=== PATIENT | female | born 1975 | race Caucasian/White ===

== ENCOUNTER 2022-01-30 00:35 | Emergency (ER) | payer OTHER ==
--- OUTSIDE RECORDS SUMMARY | 2022-01-30 01:45 | XMS REPORT | Continuity of Care Document ---
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 00 times Center daily as needed. baclofen 2022-0 Yes 10mg Take [address] [facility] (LIORESAL) 8-06 by mouth 2 Sh[facility]ir es 10 MG 00:00: (two) Medical tablet 00 times Center daily as needed. Latuda 60 2022-0 Yes 1{tbl} QD Take [address] [facility] mg Tab 6-20 tablet by [facility] 00:[facility]: mouth Medical 00 daily. Center Latuda 60 2022-0 Yes 1{tbl} QD Take [address] [facility] mg Tab 6-20 tablet by [facility] 00:[facility]: mouth Medical 00 daily. Center Latuda 60 2022-0 Yes 1{tbl} QD Take [address] [facility] mg Tab 6-20 tablet by [facility] 00:[facility]: mouth Medical 00 daily. Center lisinopriL 2022-0 Yes 20mg Q.5D Take [address] (PRINIVIL,Z 6-06 by mouth 2 Brie kes ESTRIL) 20 00:00: (two) Medica l MG tablet 00 times Center daily. lisinopriL 2022-0 Yes 20mg Q.5D Take [address] (PRINIVIL,Z 6-06 by mouth 2 [facility] kes ESTRIL) 20 00:00: (two) Medica l MG tablet 00 times Center daily. lisinopriL 2022-0 Yes 20mg Q.5D Take [address] (PRINIVIL,Z 6-06 by mouth 2 Brie kes ESTRIL) 20 00:00: (two) Medica l MG tablet 00 times Center daily. acetaminoph 2022-0 Yes 1{tbl} Take [address] en-codeine 6- tablet by Dennis castro (TYLENOL 16:19: mouth Medical #4) 300-60 46 every 4 Center mg per (four) tablet hours as needed for Pain. paliperidon 2021- No Take by [facility] (INVEGA 10-17 [facility] ORAL) 16:17: 00:00 Medical 33 :00 [place] bupropion 2021- No Take by [facility] HCl 10-17 [facility] (WELLBUTRIN 16:17: 00:00 Medic al SR ORAL) 33 :00 [place] divalproex 2021- No Take by [facility] sodium 10-17 [facility] (DEPAKOTE 16:17: 00:00 Medical ORAL) 33 :00 [place] paliperidon 0 2021- No Take by [facility] (INVEGA 10-17 [facility] ORAL) 16:17: 00:00 Medical 33 :00 [place] bupropion 0 2021- No Take by [facility] HCl 10-17 [facility] (WELLBUTRIN 16:17: 00:00 Medic al SR ORAL) 33 :00 [place] divalproex 0 2021- No Take by [facility] sodium 10-17 [facility]. [facility] (DEPAKOTE 16:17: 00:00 Medical ORAL) 33 :00 [place] paliperidon 0 2021- No Take by [facility] (INVEGA 10-17 [facility] ORAL) 16:17: 00:00 Medical 33 :00 Center bupropion 2021-0 2021- No Take by [facility] HCl 10-17 [facility] (WELLBUTRIN 16:17: 00:00 Medic al SR ORAL) 33 :00 [place] divalproex 0 2021- No Take by [facility] sodium 10-17 [facility] (DEPAKOTE 16:17: 00:00 Medical ORAL) 33 :00 [place] paliperidon 2021-0 2021- No Take by [facility] (INVEGA 10-17 [facility]AL) 16:17: 00:00 Medical 33 :00 [place] bupropion 2021-0 2021- No Take by [facility] HCl 10-17 [facility] (WELLBUTRIN 16:17: 00:00 Medic al SR ORAL) 33 :00 [place] divalproex 2021-0 2021- No Take by [facility] sodium 10-17 [facility]. [facility] (DEPAKOTE 16:17: 00:00 Medical ORAL) 33 :00 [place] buPROPion 2021-[address] [facility] (WELLBUTRIN 10-17 [facility] XL) 300 MG 00:00: Medical 24 hr 00 [place] tablet buPROPion 2021-[address] [facility] (WELLBUTRIN 10-17 [facility] XL) 300 MG 00:00: Medical 24 hr 00 [place] tablet buPROPion 2021-[address] [facility] (WELLBUTRIN 10-17 [facility] XL) 300 MG 00:00: Medical 24 hr 00 [place] tablet buPROPion 2021-[address] [facility] (WELLBUTRIN 10-17 [facility] XL) 300 MG 00:00: Medical 24 hr 00 [place] tablet baclofen 2021-0 2022- No [facility] (LIORESAL) 10-17 [facility] 10 MG 00:00: 00:00 Medical tablet 00 :00 [place] baclofen 2-0 2022- No [facility] (LIORESAL) 10-17 [facility] 10 MG 00:00: 00:00 Medical tablet 00 :00 [place] baclofen 2-0 2022- No [facility] (LIORESAL) 10-17 [facility] 10 MG 00:00: 00:00 Medical tablet 00 :00 [place] baclofen 2-0 2022- No [facility] (LIORESAL) 10-17 [facility] 10 MG 00:00: 00:00 Medical tablet 00 :00 [place] ondansetron 2021-[address] [facility] (ZOFRAN-ODT 5-26 [facility] ) 4 MG 00:00: Medical disintegrat 00 Center ing tablet ondansetron 2021-[address] [facility] (ZOFRAN-ODT 5-26 [facility] ) 4 MG 00:00: Medical disintegrat 00 Center ing tablet ondansetron 2021-[address] [facility] (ZOFRAN-ODT 5-26 [facility] ) 4 MG 00:00: Medical disintegrat 00 Center ing tablet ondansetron Yes [facility] (ZOFRAN-ODT 5-26 [facility] ) 4 MG 00:00: Medical disintegrat 00 Center ing tablet paliperidon Yes 6mg QD Take [address] [facility] (INVEGA) 5-18 by mouth [facility] 6 MG 24 hr 00:00: daily. Medic al tablet 00 Center paliperidon Yes 6mg QD Take [address] e (INVEGA) 5-18 by mouth [facility] 6 MG 24 hr 00:00: daily. Medic al tablet 00 Center paliperidon Yes 6mg QD Take [address] e (INVEGA) 5-18 by mouth [facility] 6 MG 24 hr 00:00: daily. Medic al tablet 00 Center paliperidon Yes 6mg QD Take [address] [facility] (INVEGA) 5-18 by mouth [facility] 6 MG 24 hr 00:00: daily. Medic al tablet 00 Center clonazePAM 2021- No TAKE [address] (KlonoPIN) 10-03 2 TABS [facility] 0.5 MG 00:00: 00:00 DAILY BY Medica l tablet 00 :00 MOUTH Center NEEDED FOR SEVERE ANXIETY clonazePAM 2021- No TAKE [address] (KlonoPIN) 10-03 2 TABS [facility] 0.5 MG 00:00: 00:00 DAILY BY Medica l tablet 00 :00 MOUTH Center NEEDED FOR SEVERE ANXIETY clonazePAM 2021- No TAKE [address] (KlonoPIN) 10-03 2 TABS [facility] 0.5 MG 00:00: 00:00 DAILY BY Medica l tablet 00 :00 MOUTH Center NEEDED FOR SEVERE ANXIETY clonazePAM 2021- No TAKE [address] (KlonoPIN) 10-03 2 TABS [facility] 0.5 MG 00:00: 00:00 DAILY BY Medica l tablet 00 :00 MOUTH Center NEEDED FOR SEVERE ANXIETY divalproex Yes TAKE 1 [facility] (DEPAKOTE[facility] 5-14 TABLET BY [facility] 500 MG 24 00:00: MOUTH Medical hr tablet 00 EVERYDAY Center AT BEDTIME divalproex Yes TAKE 1 [facility] (DEPAKOTE) 5-14 TABLET BY [facility] 500 MG 24 00:00: MOUTH Medical hr tablet 00 EVERYDAY Center AT BEDTIME divalproex 0 Yes TAKE 1 [facility] (DEPAKOTE) 5-14 TABLET BY [facility] 500 MG 24 00:00: MOUTH Medical hr tablet 00 EVERYDAY Center AT BEDTIME divalproex Yes TAKE 1 [facility] (DEPAKOTE) 5-14 TABLET BY [facility] 500 MG 24 00:00: MOUTH Medical hr tablet 00 EVERYDAY Center AT BEDTIME mupirocin Yes [facility] (BACTROBAN) 5-05 [facility] 2 % 00:00: Medical ointment 00 Center pregabalin 0 Yes 50mg Q.5D Take [address] [facility] (LYRICA) 50 5-05 by mouth 2 [facility] k[facility] MG capsule 00:00: (two) Medica l 00 times Center daily. mupirocin [address] [facility] (BACTROBAN) 5-05 [facility] 2 % 00:00: Medical ointment 00 Center pregabalin 0 Yes 50mg Q.5D Take [address] (LYRICA) 50 5-05 by mouth 2 Brie kes MG capsule 00:00: (two) Medica l 00 times Center daily. mupirocin [address] [facility] (BACTROBAN) 5-05 [facility] 2 % 00:00: Medical ointment 00 Center pregabalin 0 Yes 50mg Q.5D Take [address] (LYRICA) 50 5-05 by mouth 2 Brie kes MG capsule 00:00: (two) Medica l 00 times Center daily. mupirocin [address] [facility] (BACTROBAN) 5-05 [facility] 2 % 00:00: Medical ointment 00 Center pregabalin 0 Yes 50mg Q.5D Take [address] (LYRICA) 50 5-05 by mouth 2 Brie kes MG capsule 00:00: (two) Medica l 00 times Center daily. acetaminoph 2021- No 1{tbl} Take [address] en-codeine 5-05 06-01 tablet by [facility] (TYLENOL 00:00: 00:00 mouth 3 Medic al #4) 300-60 00 :00 (three) Center mg per times tablet daily as needed. acetaminoph 2021- No 1{tbl} Take [address] en-codeine 5-05 06-01 tablet by [facility] (TYLENOL 00:00: 00:00 mouth 3 Medic al #4) 300-60 00 :00 (three) Center mg per times tablet daily as needed. acetaminoph 2021- No 1{tbl} Take [address] en-codeine 5-05 06-01 tablet by [facility] (TYLENOL 00:00: 00:00 mouth 3 Medic al #4) 300-60 00 :00 (three) Center mg per times tablet daily as needed. acetaminoph 2021- No 1{tbl} Take [address] en-codeine 5-05 06-01 tablet by [facility] (TYLENOL 00:00: 00:00 mouth 3 Medic al #4) 300-60 00 :00 (three) Center mg per times tablet daily as needed. LISINOPRIL Yes Take by [facility] 4-29 [facility]. [facility] 13:24: [address] omeprazole Yes 20mg QD Take [address] (PriLOSEC) 09-14 by mouth [facility] 20 MG 13:24: daily. Medical [address] GABAPENTIN Yes Take by [facility] -29 [facility]. [facility] 13:24: [address] sulfamethox 2021- No 160mg{t Q.5D Take [address] [facility] [address] azole-trime 09-14-06 rimetho tablet [facility] k[facility] thoprim 00:00: 23:59 prim} (160 mg of Me dical (BACTRIM 00 :00 trimethopr Cente r DS) 800-160 im total) mg per by mouth 2 tablet (two) times daily for 7 days smx-tmp DS (BACTRIM) 800-160 mg tabs (1tab q12 D10). promethazin 2021- No 25mg Take [address] [facility] e 09-14-06 tablet (25 [facility] (PHENERGAN) 00:00: 23:59 mg total) Medical 25 MG 00 :00 by mouth Center tablet every 6 (six) hours as needed for Nausea for up to 7 days. sulfamethox 2021- No 160mg{t Q.5D Take [address] [facility] azole-trime 09-14-06 rimetho tablet [facility] thoprim 00:00: 23:59 prim} (160 mg of Me dical (BACTRIM 00 :00 trimethopr Cente r DS) 800-160 im total) mg per by mouth 2 tablet (two) times daily for 7 days smx-tmp DS (BACTRIM) 800-160 mg tabs (1tab q12 D10). promethazin 2021- No 25mg Take [address] [facility] e 09-14-06 tablet (25 [facility] (PHENERGAN) 00:00: 23:59 mg total) Medical 25 MG 00 :00 by mouth Center tablet every 6 (six) hours as needed for Nausea for up to 7 days. sulfamethox 2021- No 160mg{t Q.5D Take [address] [facility] azole-trime 09-14 05-06 rimetho tablet [facility] thoprim 00:00: 23:59 prim} (160 mg of Me dical (BACTRIM 00 :00 trimethopr Cente r DS) 800-160 im total) mg per by mouth 2 tablet (two) times daily for 7 days smx-tmp DS (BACTRIM) 800-160 mg tabs (1tab q12 D10). promethazin 2021- No 25mg Take [address] [facility] e 09-14 05-06 tablet (25 [facility] (PHENERGAN) 00:00: 23:59 mg total) Medical 25 MG 00 :00 by mouth Center tablet every 6 (six) hours as needed for Nausea for up to 7 days. sulfamethox 2021- No 160mg{t Q.5D Take [address] [facility] azole-trime 09-14 05-06 rimetho tablet [facility] thoprim 00:00: 23:59 prim} (160 mg of Me dical (BACTRIM 00 :00 trimethopr Cente r DS) 800-160 im total) mg per by mouth 2 tablet (two) times daily for 7 days smx-tmp DS (BACTRIM) 800-160 mg tabs (1tab q12 D10). promethazin 2021- No 25mg Take [address] [facility] e 4- 05-06 tablet (25 [facility] (PHENERGAN) 00:00: 23:59 mg total) Medical 25 MG 00 :00 by mouth Center tablet every 6 (six) hours as needed for Nausea for up to 7 days. pantoprazol 0 Yes 40mg [address] [facility] 4-24 [facility] (PROTONIX) 00:00: Medical 40 MG 00 Center tablet pantoprazol 2021-0 Yes 40mg [address] [facility] 4-24 [facility] (PROTONIX) 00:00: Medical 40 MG 00 Center tablet pantoprazol 2021-0 Yes 40mg [address] [facility] 4-24 [facility] (PROTONIX) 00:00: Medical 40 MG 00 Center tablet acetaminoph 2021- No TAKR [address] [facility] en-codeine 07-26 TABLET [facility] (TYLENOL 00:00: 00:00 NEEDED Medica l #3) 300-30 00 :00 ORALLY Center mg per THREE tablet TIMES A DAY FOR 30 DAYS acetaminoph 2021- No TAKR [address] [facility] en-codeine 07-26 TABLET [facility] (TYLENOL 00:00: 00:00 NEEDED Medica l #3) 300-30 00 :00 ORALLY Center mg per THREE tablet TIMES A DAY FOR 30 DAYS acetaminoph 2021- No TAKR [address] [facility] en-codeine 07-26 TABLET [facility] (TYLENOL 00:00: 00:00 NEEDED Medica l #3) 300-30 00 :00 ORALLY Center mg per THREE tablet TIMES A DAY FOR 30 DAYS acetaminoph 2021- No TAKR [address] [facility] en-codeine 07-26 TABLET [facility] (TYLENOL 00:00: 00:00 NEEDED Medica l #3) 300-30 00 :00 ORALLY Center mg per THREE tablet TIMES A DAY FOR 30 DAYS nitrofurant 2021- No 100mg Q.5D Take 1 Me анна menon, 3-05 03-[address] macrocrysta 00:00: 05:59 (100 mg Ho spita l-monohydra 00 :00 total) by l te, mouth 2 (MACROBID) (two) 100 MG times a capsule day for 7 days. nitrofurant 2021-0 2022- No 100mg Q.5D Take 1 Me thodi oin, 07-[address] macrocrysta 00:00: 05:59 (100 mg Ho spita l-monohydra 00 :00 total) by l te, mouth 2 (MACROBID) (two) 100 MG times a capsule day for 7 days. nitrofurant 2021-0 2021- No 100mg Q.5D Take 1 Me thodi oin, 07-[address] macrocrysta 00:00: 05:59 (100 mg Ho spita l-monohydra 00 :00 total) by l te, mouth 2 (MACROBID) (two) 100 MG times a capsule day for 7 days. nitrofurant 2021-0 2021- No 100mg Q.5D Take 1 [facility] th[facility] oin, 07-[address] macrocrysta 00:00: 05:59 (100 mg Ho spita l-monohydra 00 :00 total) by l te, mouth 2 (MACROBID) (two) 100 MG times a capsule day for 7 days. nitrofurant 0 2- No 100mg Q.5D Take 1 Me thodi oin, 07-[address] macrocrysta 00:00: 05:59 (100 mg Ho spita l-monohydra 00 :00 total) by l te, mouth 2 (MACROBID) (two) 100 MG times a capsule day for 7 days. dicyclomine 2022-0 Yes 20mg Q.5D Take 1 [facility] (BENTYL) 20 2-27 tablet (20 st mg tablet 00:00: mg total) [facility] 00 by mouth 2 l (two) times a day as needed (pain). dicyclomine 2022-0 Yes 20mg Q.5D Take 1 [facility] (BENTYL) 20 2-27 tablet (20 st mg tablet 00:00: mg total) [facility] 00 by mouth 2 l (two) times a day as needed (pain). dicyclomine 2022-0 Yes 20mg Q.5D Take 1 [facility] (BENTYL) 20 2-27 tablet (20 st mg tablet 00:00: mg total) [facility] 00 by mouth 2 l (two) times a day as needed (pain). dicyclomine 2022-0 Yes 20mg Q.5D Take 1 [facility] (BENTYL) 20 2-27 tablet (20 st mg tablet 00:00: mg total) [facility] 00 by mouth 2 l (two) times a day as needed (pain). dicyclomine 2022-0 Yes 20mg Q.5D Take 1 [facility] (BENTYL) 20 2-27 tablet (20 st mg tablet 00:00: mg total) [facility] 00 by mouth 2 l (two) times a day as needed (pain). ondansetron 2022-0 2022- No 4mg Q8H Take 1 [facility] ODT 2-27 03-30 tablet (4 st (ZOFRAN-ODT 00:00: 04:59 mg total) Hospita ) 4 MG 00 :00 by mouth l disintegrat every 8 ing tablet (eight) hours as needed for nausea or vomiting for up to 30 days. ondansetron 2022-0 2022- No 4mg Q8H Take 1 [facility] ODT 2-27 03-30 tablet (4 st (ZOFRAN-ODT 00:00: 04:59 mg total) Hospita ) 4 MG 00 :00 by mouth l disintegrat every 8 ing tablet (eight) hours as needed for nausea or vomiting for up to 30 days. ondansetron 2022-0 2022- No 4mg Q8H Take 1 [facility]odi ODT 2-27 03-30 tablet (4 st (ZOFRAN-ODT 00:00: 04:59 mg total) Hospita ) 4 MG 00 :00 by mouth l disintegrat every 8 ing tablet (eight) hours as needed for nausea or vomiting for up to 30 days. ondansetron 2022-0 2022- No 4mg Q8H Take 1 [facility] ODT 2-27 03-30 tablet (4 st (ZOFRAN-ODT 00:00: 04:59 mg total) Hospita ) 4 MG 00 :00 by mouth l disintegrat every 8 ing tablet (eight) hours as needed for nausea or vomiting for up to 30 days. ondansetron 2-0 2- No 4mg Q8H Take 1 Met hodi ODT 227 03-30 tablet (4 st (ZOFRAN-ODT 00:00: 04:59 mg total) Hospita ) 4 MG 00 :00 by mouth l disintegrat every 8 ing tablet (eight) hours as needed for nausea or vomiting for up to 30 days. QUEtiapine 2022-0 Yes [facility] (SEROquel) 2-23 st 100 MG 00:00: Hospita tablet 00 l clonAZEPAM 2022-0 Yes TAKE 1 TO [facility] (KlonoPIN) 2-[address] 0.5 MG 00:00: DAILY BY [facility]ospita tablet 00 MOUTH l NEEDED QUEtiapine 2022-0 Yes [facility] (SEROquel) 2-23 st 100 MG 00:00: Hospita tablet 00 l clonAZEPAM 2022-0 Yes TAKE 1 TO [facility] (KlonoPIN) 2-[address] 0.5 MG 00:00: DAILY BY [facility]osp[facility] tablet 00 MOUTH l NEEDED QUEtiapine 2022-0 Yes [facility] (SEROquel) 2-23 st 100 MG 00:00: Hospita tablet 00 l clonAZEPAM 2022-0 Yes TAKE 1 TO [facility] (KlonoPIN) 2-[address] 0.5 MG 00:00: DAILY BY [facility]ospita tablet 00 MOUTH l NEEDED QUEtiapine 2022-0 Yes [facility] (SEROquel) 2-23 st 100 MG 00:00: Hospita tablet 00 l clonAZEPAM 2022-0 Yes TAKE 1 TO [facility] (KlonoPIN) 2-[address] 0.5 MG 00:00: DAILY BY Hospita tablet 00 MOUTH l NEEDED QUEtiapine 2022-0 Yes [facility] (SEROquel) 2-23 st 100 MG 00:00: Hospita tablet 00 l clonAZEPAM 2022-0 Yes TAKE 1 TO [facility] (KlonoPIN) 2-[address] 0.5 MG 00:00: DAILY BY Hospita tablet 00 MOUTH l NEEDED Diphenhydra 2-0 Yes Notes: Gene sandy mine 2-07 (Same as: l 06:11: Josel) Diphenhydra Yes Notes: Gene sandy mine 2-07 (Same as: l 06:11: Benadryl) Dicyclomine Yes Notes: [facility] 2-07 (Same as: l 06:00: Bentyl) Dicyclomine Yes Notes: [facility] 2-07 (Same as: l 06:00: Bentyl) Lovenox Yes Notes: [facility] 2-07 (Same as: l 05:00: Lovenox) Lovenox Yes Notes: [facility] 2-07 (Same as: l 05:00: Lovenox) Bisacodyl No Notes: [facility] a 2-07 (Same As: l 03:52: Dulcolax, [place] 00 Bisco-Lax) POLYETHYLEN Yes Notes: Gene sandy E GLYCOL 2-07 Dissolve l 3350 03:52: in 8 oz of [place] water or juice. (Same as: Miralax) Bisacodyl No Notes: [facility] a 2-07 (Same As: l 03:52: Dulcolax, [place] 00 Bisco-Lax) POLYETHYLEN Yes Notes: [facility] E GLYCOL 2-07 Dissolve l 3350 03:52: in 8 oz of [place] 00 water or juice. (Same as: Miralax) Clonazepam Yes Notes: [facility] ia 2-07 (Same As: l 03:00: KlonoPIN) [facility] 3:Reproduc tive risk Hazardous Drug -- Refer to safe handling procedure PPE Matrix Clonazepam Yes Notes: [facility] 2-07 (Same As: l 03:00: KlonoPIN) [facility] 3:Reproduc tive risk Hazardous Drug -- Refer to safe handling procedure PPE Matrix Tramadol Yes Notes: Not Mem oria 2-07 to exceed l 02:57: 400mg/day. [place] 00 (Same As: Ultram) Acetaminoph Yes Notes: Gene sandy en 325 MG / 2-07 (Same as: l Hydrocodone 02:57: [place] Shreya nn Bitartrate 00 325/5) Do 5 MG Oral not exceed Tablet 4gm/day of [[place] acetaminop 5/325] hen. Tramadol Yes Notes: Not Mem oria 07 to exceed l 02:57: 400mg/day. (Same As: Ultram) Acetaminoph Yes Notes: Gene sandy en 325 MG / 06-25 (Same as: l Hydrocodone 02:57: [place] Shreya nn Bitartrate 00 325/5) Do 5 MG Oral not exceed Tablet 4gm/day of [[place] acetaminop 5/325] hen. Wellbutrin 0 Yes PO, Daily, M emoria -07 0 l 02:49: Refill(s) Depakote 0 Yes 300 mg, [facility] a 2-07 PO, Daily, l 02:49: 0 Refill(s) Clonazepam 0 Yes 1 mg, PO, Me moria 2-07 BID, 0 l 02:49: Refill(s) Wellbutrin 0 Yes PO, Daily, M emoria 07 0 l 02:49: Refill(s) Depakote 0 Yes 300 mg, [facility] a 2-07 PO, Daily, l 02:49: 0 Refill(s) Clonazepam 0 Yes 1 mg, PO, Me moria 2-07 BID, 0 l 02:49: Refill(s) Invega 2021-0 Yes PO, QAM, 0 [facility] 2-07 Refill(s) l 02:48: Invega 2021-0 Yes PO, QAM, 0 [facility] 2-07 Refill(s) l 02:48: Lisinopril 0 Yes 20 mg, PO, M emoria 2-07 BID, 0 l 02:47: Refill(s) Lisinopril 0 Yes 20 mg, PO, M emoria 2-07 BID, 0 l 02:47: Refill(s) Lactated 2022-0 Yes 1,000 mL, Gene sandy Ringers IV 2- Rate: 125 l 1,000 mL 01:54: ml/hr, [place]ron 00 Infuse over: 8 hr, Route: IV, Dosing Weight 127 kg, Total Volume: 1,000, Priority: STAT, Start date: 06/24/21 19:54:00 SOLE RUFFER, Duration: 2 doses or times, Stop date: 06/25/21 11:53:00 SOLE RUFFER, BSA: 2.43 m2, 0 Lactated 2-0 Yes 1,000 mL, Gene sandy Ringers IV 2- Rate: 125 l 1,000 mL 01:54: ml/hr, [place] 00 Infuse over: 8 hr, Route: IV, Dosing Weight 127 kg, Total Volume: 1,000, Priority: STAT, Start date: 06/24/21 19:54:00 SOLE RUFFER, Duration: 2 doses or times, Stop date: 06/25/21 11:53:00 SOLE RUFFER, BSA: 2.43 m2, 0 Dextrose 2-0 Yes 125 mL, [facility] a 10% in 06-25 Rate: 999 l Water IV 01:47: ml/hr, [place] 00 Infuse over: 0.1 hr, Route: IV, Total Volume: 125, Start date: 06/24/21 19:47:00 SOLE RUFFER, Duration: 30 day, Stop date: 07/24/21 19:46:00 SOLE RUFFER, PRN Blood Glucose Results, 0 Dextrose 2-0 Yes 125 mL, [facility] a 10% in - Rate: 999 l Water IV 01:47: ml/hr, Myron 00 Infuse over: 0.1 hr, Route: IV, Total Volume: 125, Start date: 06/24/21 19:47:00 SOLE RUFFER, Duration: 30 day, Stop date: 07/24/21 19:46:00 SOLE RUFFER, PRN Blood Glucose Results, 0 Dextrose 2-0 Yes 250 mL, [facility] a 10% in - Rate: 999 l Water IV 01:46: ml/hr, [place] 00 Infuse over: 0.3 hr, Route: IV, Total Volume: 250, Start date: 06/24/21 19:46:00 SOLE RUFFER, Duration: 30 day, Stop date: 07/24/21 19:45:00 SOLE RUFFER, PRN Blood Glucose Results, 0 Dextrose 2021-0 Yes 250 mL, [facility] a 10% in 06-25 Rate: 999 l Water IV 01:46: ml/hr, Infuse over: 0.3 hr, Route: IV, Total Volume: 250, Start date: 06/24/21 19:46:00 SOLE RUFFER, Duration: 30 day, Stop date: 07/24/21 19:45:00 SOLE RUFFER, PRN Blood Glucose Results, 0 Dextrose 2021-0 No 25 mL, [facility] 50% Syringe - Route: l (D50W) 01:43: IVP, Dosing Weight 127, kg, PRN, PRN Blood Glucose Results, Start date: 06/24/21 19:43:00 SOLE RUFFER, Duration: 30 day, Stop date: 07/24/21 19:42:00 SOLE RUFFER Glucagon 2021-0 Yes 1 mg, [facility] 2-07 Route: IM, l 01:43: Drug form: PDR/INJ, PRN, Dosing Weight 127, kg, PRN Blood Glucose Results, Start date: 06/24/21 19:43:00 SOLE RUFFER, Duration: 30 day, Stop date: 07/24/21 19:42:00 SOLE RUFFER, 0 Ondansetron 2021-0 Yes Notes: Gene sandy - (Same as: l 01:43: Zofran) MEDICATION WASTE Product Size: 4 mg Product Wasted: ___ mg Melatonin Yes Notes: [facility] a 2- (Same as: l 01:43: Melatonin) Acetaminoph Yes Notes: Do M emoria en -07 not exceed l 01:43: 4 gm/day. (Same as: Tylenol) Dextrose 2021-0 No 25 mL, [facility] 50% Syringe - Route: l (D50W) 01:43: IVP, Dosing Weight 127, kg, PRN, PRN Blood Glucose Results, Start date: 06/24/21 19:43:00 SOLE RUFFER, Duration: 30 day, Stop date: 07/24/21 19:42:00 SOLE RUFFER Glucagon 2-0 Yes 1 mg, [facility] 2-07 Route: IM, l 01:43: Drug form: [place] 00 PDR/INJ, PRN, Dosing Weight 127, kg, PRN Blood Glucose Results, Start date: 06/24/21 19:43:00 SOLE RUFFER, Duration: 30 day, Stop date: 07/24/21 19:42:00 SOLE RUFFER, 0 Ondansetron Yes Notes: Gene sandy 2-07 (Same as: l 01:43: Zofran) [place] 00 MEDICATION WASTE Product Size: 4 mg Product Wasted: ___ mg Melatonin Yes Notes: [facility] a 2-07 (Same as: l 01:43: Melatonin) Myron 00 Acetaminoph Yes Notes: Do M emoria en 2- not exceed l 01:43: 4 gm/day. [place] 00 (Same as: Tylenol) Protonix No Notes: For Mem oria 2-07 IV push l 01:00: reconstitu Myron 00 te with 10 ml 0.9% sodium chloride and push over 2 minutes. (Same as: Protonix) Zofran No Notes: Memoria 2-07 (Same as: l 01:00: Zofran) [place] 00 MEDICATION WASTE Product Size: 4 mg Product Wasted: ___ mg Protonix No Notes: For Mem oria 2-07 IV push l 01:00: reconstitu [place] 00 te with 10 ml 0.9% sodium chloride and push over 2 minutes. (Same as: Protonix) Zofran No Notes: Memoria 2-07 (Same as: l 01:00: Zofran) [place] 00 MEDICATION WASTE Product Size: 4 mg Product Wasted: ___ mg Pepcid No Notes: Memoria 2-07 (Same as: l 00:59: Pepcid) [place]ron 00 Can be dilute in 5-10cc NS IVP: Slow IV push over at least 2 minutes. Pepcid No Notes: Memoria 2-07 (Same as: l 00:59: Pepcid) [place] 00 Can be dilute in 5-10cc NS IVP: Slow IV push over at least 2 minutes. paliperidon 2022-0 Yes PO, QAM, 0 Methodi e (Invega) 2-07 Refill(s) st 6 MG 24 hr 00:00: [facility]osp[facility] tablet 00 l bupropion 2022-0 Yes PO, Daily, Me thodi HCl 2-[address] (WELLBUTRIN 00:00: Refill(s) H [facility]sp[facility] ORAL) 00 l paliperidon 2-0 Yes PO, QAM, 0 Methodi e (Invega) 2-07 Refill(s) st 6 MG 24 hr 00:00: [facility]ospita tablet 00 l bupropion 2022-0 Yes PO, Daily, Me thodi HCl 2-[address] (WELLBUTRIN 00:00: Refill(s) [facility] ORAL) 00 l paliperidon 2-0 Yes PO, QAM, 0 Methodi e (Invega) 2-07 Refill(s) st 6 MG 24 hr 00:00: [facility]ospita tablet 00 l bupropion 2-0 Yes PO, Daily, Me thodi HCl 2-[address] (WELLBUTRIN 00:00: Refill(s) [facility] ORAL) 00 l paliperidon 2-0 Yes PO, QAM, 0 Methodi e (Invega) 2-07 Refill(s) st 6 MG 24 hr 00:00: [facility]ospita tablet 00 l bupropion 2-0 Yes PO, Daily, Me thodi HCl 2-[address] (WELLBUTRIN 00:00: Refill(s) [facility] ORAL) 00 l paliperidon 2-0 Yes PO, QAM, 0 Methodi e (Invega) 2-07 Refill(s) st 6 MG 24 hr 00:00: [facility]ospita tablet 00 l bupropion 2022-0 Yes PO, Daily, Me thodi HCl 2-[address] (WELLBUTRIN 00:00: Refill(s) H [facility] ORAL) 00 l HYDROcodone 2021- No Notes: [facility] -acetaminop 06-25 (Same as: Brie hernández ([place]) 00:00: 00:00 [place] [facility] ad[facility]ina 5-325 mg 00 :00 325/5) Do Center per tablet not exceed 4gm/day of acetaminop hen. HYDROcodone Notes: [facility] -acetaminop 2-11 21- (Same as: Brie hunters hen ([place]) 00:00: 00:00 [place] [facility] 5-325 mg 00 :00 325/5) Do Center per tablet not exceed 4gm/day of acetaminop hen. HYDROcodone No Notes: [facility] -acet[facility] 2-11 21- (Same as: Brie kes hen ([place]) 00:00: 00:00 [place] [facility] 5-325 mg 00 :00 325/5) Do Center per tablet not exceed 4gm/day of acetaminop hen. HYDROcodone No Notes: [facility] -acetaminop 06-25- (Same as: Brie kes hen ([place]) 00:00: 00:00 [place] [facility] 5-325 mg 00 :00 325/5) Do Center per tablet not exceed 4gm/day of acetaminop hen. Morphine 2021-0 No 4 mg, [facility] 2-06 Route: l 23:52: IVP, ONCE, [place] 00 Dosing Weight 127, kg, Priority: STAT, Start date: 06/24/21 17:52:00 SOLE RUFFER, Stop date: 06/24/21 17:52:00 SOLE RUFFER Morphine 2021-0 No 4 mg, [facility] 2-06 Route: l 23:52: IVP, ONCE, [place] 00 Dosing Weight 127, kg, Priority: STAT, Start date: 06/24/21 17:52:00 SOLE RUFFER, Stop date: 06/24/21 17:52:00 SOLE RUFFER Omnipaque 2-0 No 100 mL, [facility] ia 300 2-06 Route: l injectable 23:33: IVP, [place]ron solution 00 Dosing Weight 127, kg, ONCALL, STAT, Start date: 06/24/21 17:33:00 SOLE RUFFER, Duration: 1 doses or times Omnipaque 2-0 No 100 mL, [facility] 300 2-06 Route: l injectable 23:33: IVP, [place] solution 00 Dosing Weight 127, kg, ONCALL, STAT, Start date: 06/24/21 17:33:00 SOLE RUFFER, Duration: 1 doses or times Sodium 2-0 No 984.8 mL, Memori a Chloride 2-06 Rate: 100 l 0.9% IV 21:57: ml/hr, [place] 984.8 mL + 00 Infuse M.V.I.-12 over: 10 10 mL Daily hr, Route: + folic IV, Dosing acid IV 1 Weight 127 mg Daily + kg, Total thiamine IV Volume: 5 1,000, Start date: 06/24/21 15:57:00 SOLE RUFFER, Duration: 1 doses or times, Stop date: 06/25/21 1:56:00 SOLE RUFFER, BSA: 2.43 m2, 0 Sodium 2021-0 No 984.8 mL, Mem[facility] a Chloride 2-06 Rate: 100 l 0.9% IV 21:57: ml/hr, Myron 984.8 mL + 00 Infuse M.V.I.-12 over: 10 10 mL Daily hr, Route: + folic IV, Dosing acid IV 1 Weight 127 mg Daily + kg, Total thiamine IV Volume: 5 1,000, Start date: 06/24/21 15:57:00 SOLE RUFFER, Duration: 1 doses or times, Stop date: 06/25/21 1:56:00 SOLE RUFFER, BSA: 2.43 m2, 0 Saline Yes Notes: [facility] Flush 0.9% 2-06 (Same as: l 21:55: BD [place] 00 Posiflush) Sodium No 1,000 mL, [facility] a Chloride 2-06 1000 l 0.9% 21:55: ml/hr, [place] (Bol[place]) IV 00 Infuse Over: 1 hr, Route: IV, 1,000, Drug form: INJ, ONCE, Priority: STAT, Dosing Weight 128.092 kg, Start date: 06/24/21 15:55:00 SOLE RUFFER, Stop date: 06/24/21 15:55:00 SOLE RUFFER, 0 Morphine No Notes: [facility] 2-06 (Same l 21:55: as:MORPhin [place] 00 e Sulfate) Ondansetron No Notes: Gene sandy 2-06 (Same as: l 21:55: Zofran) [place] 00 MEDICATION WASTE Product Size: 4 mg Product Wasted: ___ mg Saline Yes Notes: [facility] Flush 0.9% 2-06 (Same as: l 21:55: BD Myron 00 Posiflush) Sodium No 1,000 mL, [facility] a Chloride 06-24 1000 l 0.9% 21:55: ml/hr, [place] (Bolus) IV 00 Infuse Over: 1 hr, Route: IV, 1,000, Drug form: INJ, ONCE, Priority: STAT, Dosing Weight 128.092 kg, Start date: 06/24/21 15:55:00 SOLE RUFFER, Stop date: 06/24/21 15:55:00 SOLE RUFFER, 0 Morphine No Notes: [facility] 06-24 (Same l 21:55: as:MORPhin [place] 00 e Sulfate) Ondansetron No Notes: Gene sandy 06-24 (Same as: l 21:55: Zofran) Myron 00 MEDICATION WASTE Product Size: 4 mg Product Wasted: ___ mg Metoclopram Yes 10 mg = 1 M emoria magdalena 10 MG 2-04 tab, PO, l Oral Tablet 04:24: QID, X 7 He rmann [Reglan] day, # 12 tab, 0 Refill(s), Pharmacy: [facility] #[id number], 160.02, cm, 06/21/21 18:28:00 SOLE RUFFER, Height, 128.092, kg, 06/21/21 18:28:00 SOLE RUFFER, Weight Dicyclomine Yes 20 mg = 1 M emoria Hydrochlori 2-04 tab, PO, l de 20 MG 04:24: QID-Before Her calderon Oral Tablet 00 Meals, # [Bentyl] 15 tab, 0 Refill(s), Pharmacy: [facility] #[id number], 160.02, cm, 06/21/21 18:28:00 SOLE RUFFER, Height, 128.092, kg, 06/21/21 18:28:00 SOLE RUFFER, Weight Metoclopram Yes 10 mg = 1 M emoria magdalena 10 MG 2-04 tab, PO, l Oral Tablet 04:24: QID, X 7 He rmann [Reglan] 00 day, # 12 tab, 0 Refill(s), Pharmacy: [facility] #[id number], 160.02, cm, 06/21/21 18:28:00 SOLE RUFFER, Height, 128.092, kg, 06/21/21 18:28:00 SOLE RUFFER, Weight Dicyclomine 2021-0 Yes 20 mg = 1 M emoria Hydrochlori 2-04 tab, PO, l de 20 MG 04:24: QID-Before Her [place] Oral Tablet 00 Meals, # [Bentyl] 15 tab, 0 Refill(s), Pharmacy: [facility] #[id number], 160.02, cm, 06/21/21 18:28:00 SOLE RUFFER, Height, 128.092, kg, 06/21/21 18:28:00 SOLE RUFFER, Weight Morphine 2-0 No 4 mg, Mem[facility] 2-04 Route: l 00:38: IVP, ONCE, [place] Dosing Weight 128.092, kg, Priority: STAT, Start date: 06/21/21 18:38:00 SOLE RUFFER, Stop date: 06/21/21 18:38:00 SOLE RUFFER Morphine 2-0 No 4 mg, [facility] 2-04 Route: l 00:38: IVP, ONCE, [place] Dosing Weight 128.092, kg, Priority: STAT, Start date: 06/21/21 18:38:00 SOLE RUFFER, Stop date: 06/21/21 18:38:00 SOLE RUFFER Sodium 2-0 No 1,000 mL, Memori a Chloride 2-04 Infuse l 0.9% 00:33: Over: 1 [place] (Bolus) IV 00 hr, Route: IV, ONCE, Priority: STAT, Dosing Weight 131.818 kg, Start date: 06/21/21 18:33:00 SOLE RUFFER, Stop date: 06/21/21 18:33:00 SOLE RUFFER Ondansetron 2-0 No 4 mg, Memor ia 2-04 Route: l 00:33: IVP, Drug Myron 00 form: INJ, ONCE, Dosing Weight 131.818, kg, Priority: STAT, Start date: 06/21/21 18:33:00 SOLE RUFFER, Stop date: 06/21/21 18:33:00 SOLE RUFFER Sodium 2-0 No 1,000 mL, Memori a Chloride 2-04 Infuse l 0.9% 00:33: Over: 1 [place] (Bolus) IV 00 hr, Route: IV, ONCE, Priority: STAT, Dosing Weight 131.818 kg, Start date: 06/21/21 18:33:00 SOLE RUFFER, Stop date: 06/21/21 18:33:00 SOLE RUFFER Ondansetron 2021-0 No 4 mg, Mem[facility] ia 2-04 Route: l 00:33: IVP, Drug form: INJ, ONCE, Dosing Weight 131.818, kg, Priority: STAT, Start date: 06/21/21 18:33:00 SOLE RUFFER, Stop date: 06/21/21 18:33:00 SOLE RUFFER clonIDINE 2-0 Yes [facility] (CATAPRES-T 2-03 st TS) 0.1 00:00: Hospita mg/24 hr 00 l clonIDINE 2022-0 Yes [facility] (CATAPRES-T 2-03 st TS) 0.1 00:00: Hospita mg/24 hr 00 l clonIDINE 2022-0 Yes [facility] (CATAPRES-T 2-03 st TS) 0.1 00:00: Hospita mg/24 hr 00 l clonIDINE 2022-0 Yes [facility] (CATAPRES-T 2-03 st TS) 0.1 00:00: Hospita mg/24 hr 00 l clonIDINE 2022-0 Yes [facility] (CATAPRES-T 2-03 st TS) 0.1 00:00: Hospita mg/24 hr 00 l promethazin 2022-0 2022- No 25mg Q6H Take 1 Met hodi e 2-03 03-06 tablet (25 st (PHENERGAN) 00:00: 05:59 mg total) Hospita 25 MG 00 :00 by mouth l tablet every 6 (six) hours as needed for nausea or vomiting for up to 30 days. promethazin 2022-0 2022- No 25mg Q6H Take 1 Met hodi e 2-03 03-06 tablet (25 st (PHENERGAN) 00:00: 05:59 mg total) Hospita 25 MG 00 :00 by mouth l tablet every 6 (six) hours as needed for nausea or vomiting for up to 30 days. promethazin 2022-0 2022- No 25mg Q6H Take 1 Met [facility]odi e 2-03 03-06 tablet (25 st (PHENERGAN) 00:00: 05:59 mg total) Hospita 25 MG 00 :00 by mouth l tablet every 6 (six) hours as needed for nausea or vomiting for up to 30 days. promethazin 2022-0 2022- No 25mg Q6H Take 1 Met hodi e 2-03 03-06 tablet (25 st (PHENERGAN) 00:00: 05:59 mg total) Hospita 25 MG 00 :00 by mouth l tablet every 6 (six) hours as needed for nausea or vomiting for up to 30 days. promethazin 2022-0 2022- No 25mg Q6H Take 1 Met hodi e 2-03 03-06 tablet (25 st (PHENERGAN) 00:00: 05:59 mg total) Hospita 25 MG 00 :00 by mouth l tablet every 6 (six) hours as needed for nausea or vomiting for up to 30 days. famotidine 2022-0 2022- No 20mg Q.5D Take 1 Meth romie (PEPCID) 20 2-03 02-18 tablet (20 s t MG tablet 00:00: 05:59 mg total) Ho spita 00 :00 by mouth 2 l (two) times a day for 14 days. famotidine 2022-0 2022- No 20mg Q.5D Take 1 Meth romie (PEPCID) 20 2-03 02-18 tablet (20 s t MG tablet 00:00: 05:59 mg total) [facility] spita 00 :00 by mouth 2 l (two) times a day for 14 days. famotidine 2022-0 2022- No 20mg Q.5D Take 1 Meth romie (PEPCID) 20 2-03 02-18 tablet (20 s t MG tablet 00:00: 05:59 mg total) [facility] spita 00 :00 by mouth 2 l (two) times a day for 14 days. famotidine 2022-0 2022- No 20mg Q.5D Take 1 Meth romie (PEPCID) 20 2-03 02-18 tablet (20 s t MG tablet 00:00: 05:59 mg total) Ho spita 00 :00 by mouth 2 l (two) times a day for 14 days. famotidine 2022-0 2022- No 20mg Q.5D Take 1 Meth romie (PEPCID) 20 2-03 02-18 tablet (20 s t MG tablet 00:00: 05:59 mg total) Ho spita 00 :00 by mouth 2 l (two) times a day for 14 days. cefdinir 2022-0 2022- No 300mg Q.5D Take 1 Metho di (OMNICEF) 2-07 18-[address] 300 MG 00:00: 05:59 (300 mg Hospita capsule 00 :00 total) by l mouth 2 (two) times a day for 7 days. cefdinir 2022-0 2022- No 300mg Q.5D Take 1 Metho di (OMNICEF) 2-07 18-[address] 300 MG 00:00: 05:59 (300 mg Hospita capsule 00 :00 total) by l mouth 2 (two) times a day for 7 days. cefdinir 2022-0 2022- No 300mg Q.5D Take 1 Metho di (OMNICEF) 2-07 18- capsule st 300 MG 00:00: 05:59 (300 mg Hospita capsule 00 :00 total) by l mouth 2 (two) times a day for 7 days. cefdinir 2022-0 2022- No 300mg Q.5D Take 1 Metho di (OMNICEF) 2-07 18- capsule st 300 MG 00:00: 05:59 (300 mg Hospita capsule 00 :00 total) by l mouth 2 (two) times a day for 7 days. cefdinir 2022-0 2022- No 300mg Q.5D Take 1 Metho di (OMNICEF) 2-07 18-[address] 300 MG 00:00: 05:59 (300 mg Hospita capsule 00 :00 total) by l mouth 2 (two) times a day for 7 days. divalproex 2022-0 Yes [facility] (DEPAKOTE) 1-27 st 500 MG 24 00:00: Hospita hr tablet 00 l gabapentin 2022-0 Yes 600mg Q.[id number] Take 600 [facility] (NEURONTIN) 1-27 [id number] mg by s t 600 mg 00:00: 3D mouth 3 Hospita tablet 00 (three) l times a day. divalproex 2022-0 Yes [facility] (DEPAKOTE) 1-27 st 500 MG 24 00:00: Hospita hr tablet 00 l gabapentin 2022-0 Yes 600mg Q.[id number] Take 600 [facility] (NEURONTIN) 1-27 [id number] mg by s t 600 mg 00:00: 3D mouth 3 Hospita tablet 00 (three) l times a day. divalproex 2021-0 Yes [facility] (DEPAKOTE) 1-27 st 500 MG 24 00:00: Hospita hr tablet 00 l gabapentin 2022-0 Yes 600mg Q.80100584 Take 600 [facility] (NEURONTIN) 1-27 [id number] mg by s t 600 mg 00:00: 3D mouth 3 Hospita tablet 00 (three) l times a day. divalproex 2021-0 Yes [facility] (DEPAKOTE) 1-27 st 500 MG 24 00:00: Hospita hr tablet 00 l gabapentin 2022-0 Yes 600mg Q.32740993 Take 600 [facility] (NEURONTIN) 1-27 [id number] mg by s t 600 mg 00:00: 3D mouth 3 Hospita tablet 00 (three) l times a day. divalproex 2021-0 Yes [facility] (DEPAKOTE) 1-27 st 500 MG 24 00:00: Hospita hr tablet 00 l gabapentin 2-0 Yes 600mg Q.[id number] Take 600 [facility] (NEURONTIN) 1-27 [id number] mg by s t 600 mg 00:00: 3D mouth 3 Hospita tablet 00 (three) l times a day. Reglan No Notes: [facility] 1-13 (Same as: l 04:27: Reglan) [place] 00 Benadryl No Notes: [facility] 1-13 (Same as: l 04:27: Benadryl) Myron 00 Morphine 0 No Notes: [facility] 1-13 (Same l 04:27: as:MORPhin [place] 00 e Sulfate) Reglan 0 No Notes: [facility] 1-13 (Same as: l 04:27: Reglan) Myron 00 Benadryl 0 No Notes: [facility] 1-13 (Same as: l 04:27: Benadryl) [place] 00 Morphine 0 No Notes: [facility] 1-13 (Same l 04:27: as:MORPhin [place]ron 00 e Sulfate) Ondansetron 2022-0 Yes 4 mg = 1 Me moria 4 MG Oral 1-07 tab, PO, l Tablet 07:22: BID, X 5 Myron [Zofran] 00 day, # 10 tab, 0 Refill(s), Pharmacy: [facility] #[id number], 160.02, cm, 05/24/21 23:49:00 SOLE RUFFER, Height, 130.909, kg, 05/24/21 23:49:00 SOLE RUFFER, Weight Ondansetron Yes 4 mg = 1 Me moria 4 MG Oral 1-07 tab, PO, l Tablet 07:22: BID, X 5 [place] [Zofran] 00 day, # 10 tab, 0 Refill(s), Pharmacy: [facility] #[id number], 160.02, cm, 05/24/21 23:49:00 SOLE RUFFER, Height, 130.909, kg, 05/24/21 23:49:00 SOLE RUFFER, Weight Acetaminoph 2021-0 No 1 tab, Gene sandy en 325 MG / 05-25 Route: PO, l Hydrocodone 06:35: Drug Form: Myron Bitartrate 00 TAB, 5 MG Oral Dosing Tablet Weight [[place] 130.909, 5/325] kg, ONCE, Start date: 05/25/21 0:35:00 SOLE RUFFER, Stop date: 05/25/21 0:35:00 SOLE RUFFER Zofran 2021-0 No 4 mg, [facility] 05-25 Route: l 06:35: IVP, Drug [place] 00 form: INJ, ONCE, Dosing Weight 130.909, kg, Priority: STAT, Start date: 05/25/21 0:35:00 SOLE RUFFER, Stop date: 05/25/21 0:35:00 SOLE RUFFER Acetaminoph 2021-0 No 1 tab, Gene sandy en 325 MG / 05-25 Route: PO, l Hydrocodone 06:35: Drug Form: [place] Bitartrate 00 TAB, 5 MG Oral Dosing Tablet Weight [[place] 130.909, 5/325] kg, ONCE, Start date: 05/25/21 0:35:00 SOLE RUFFER, Stop date: 05/25/21 0:35:00 SOLE RUFFER Zofran 2021-0 No 4 mg, [facility] 05-25 Route: l 06:35: IVP, Drug Myron 00 form: INJ, ONCE, Dosing Weight 130.909, kg, Priority: STAT, Start date: 05/25/21 0:35:00 SOLE RUFFER, Stop date: 05/25/21 0:35:00 SOLE RUFFER omeprazole 2020-05 Yes [facility] (PriLOSEC) 2- st 20 MG 00:00: Hospita capsule 00 l omeprazole 2020-05 Yes [facility] (PriLOSEC) 2 st 20 MG 00:00: Hospita capsule 00 l omeprazole 2020-05 Yes [facility] (PriLOSEC) 2 st 20 MG 00:00: Hospita capsule 00 l omeprazole 2020-05 Yes [facility] (PriLOSEC) 2 st 20 MG 00:00: Hospita capsule 00 l omeprazole 2020-05 Yes [facility] (PriLOSEC) 06-26 st 20 MG 00:00: Hospita capsule 00 l acetaminoph 2020-05 No 1000mg 1,000 mg, [facility] en 06-24 Oral, ity of (TYLENOL) 22:00: 21:07 ONCE, 1 [place] tablet 00 :[place] dose, On Medical 1,000 mg Mon [place] 04/23/21 at 1600, MOHIT methocarbam 2020-05 No 500mg 500 mg, U nivers oL 06-24 Oral, ity of (ROBAXIN) 22:00: 21:07 ONCE, 1 [place] tablet 500 00 :00 dose, On Medic al mg [facility] 04/23/21 at 1600, Routine diphenhydrA 2020-05 No 25mg 25 mg, Uni vers MINE 06-24 Slow IV ity of (BENADRYL) 20:30: 20:06 Push, [place] injection 00 :00 ONCE, 1 Medical 25 mg dose, On Branch [facility] 04/23/21 at 1430, STAT metoclopram 2020-05- No 10mg 10 mg, Uni vers magdalena HCl 06-24 Slow IV ity of (REGLAN) 20:30: 20:05 Push, [place] injection 00 :00 ONCE, 1 Medical 10 mg dose, On Branch [facility] 04/23/21 at 1430, MOHIT NaCl 0.9% 2020-05- No 1000mL at 999 Uni vers (NS) bolus 2- 12-06 mL/hr, ity of infusion 19:45: 21:05 1,000 mL, Biju as 1,000 mL 00 :00 IV Medical Infusion, Branch ONCE, 1 dose, On 04/23/21 at 1345, STAT lisinopriL 2020-05 Yes [facility] (PRINIVIL) 2-06 st 20 mg 00:00: Hospita tablet 00 l lisinopriL 2020-05 Yes [facility] (PRINIVIL) 2-06 st 20 mg 00:00: Hospita tablet 00 l lisinopriL 2020-05 Yes [facility] (PRINIVIL) 2-06 st 20 mg 00:00: Hospita tablet 00 l lisinopriL 2020-05 Yes [facility] (PRINIVIL) 2-06 st 20 mg 00:00: Hospita tablet 00 l lisinopriL 2020-05 Yes [facility] (PRINIVIL) 2-06 st 20 mg 00:00: Hospita tablet 00 l Haloperidol Haloperidol 2020-[address] (Haldol*) 1 (Haldol*) 1 -21 Times [facility] Mg TAB Mg TAB 02:56: Day Patient [address] [place] [address] sucralfate 2020-05- No 1g 1 g, Oral, Univers (CARAFATE) 06-05 ONCE, 1 ity o f tablet 1 g 20:45: 19:41 dose, [place] 00 :00 Kat[place]yna Medical 04/05/21 Branch at 1445, Routine maalox:diph 2020-05- No 15mL 15 mL, Uni vers enhydrAMINE 06-05 Oral, ity of :lidocaine 20:45: 19:41 ONCE, 1 Biju as 2 % viscous 00 :00 dose, On Medi adelina 1:1:1 Katar[place]yna Branch ([facility] at 1445, oral Routine suspension 15 mL lisinopriL 2020-05- No 20mg 20 mg, Univ ers (PRINIVIL,Z 06-05 Oral, ity of ESTRIL) 20:45: 19:41 ONCE, 1 [place] tablet 20 00 :00 dose, On Medica l mg [facility] Branch 04/05/21 at 1445, Routine dicyclomine 2020-05 Yes 20mg 20 mg, Univ ers (BENTYL) 06-03 Oral, QID, ity o f capsule 20 14:00: First dose [place] mg 00 on [facility] 04/03/21 Branch at 0800, Until Discontinu ed, Routine NaCl 0.9% 2020-05- No 1000mL at 999 Uni vers (NS) bolus 06-0316 mL/hr, ity of infusion 04:30: 04:27 1,000 mL, Biju as 1,000 mL 00 :00 IV Medical Infusion, Branch ONCE, 1 dose, On Fri04/02/21 at 2230, STAT ondansetron 2020-05- No 4mg 4 mg, Slow Univers (ZOFRAN 06-03 IV Push, ity of (PF)) 04:30: 03:30 ONCE, 1 [place] injection 4 00 :00 dose, On Medi adelina mg Fri Branch 04/02/21 at 2230, MOHIT HYDROcodone 2020-05- No 1{tbl} 1 tablet, Univers -acetaminop 05-29 11-11 Oral, ity of hen (NORCO 15:45: 14:42 ONCE, 1 Biju as 5) 5-325 mg 00 :00 dose, On Medi adelina tablet u Branch tablet 03/29/21 at 0945, Routine acetaminoph 2020-05 Yes Take by Uni vers en with 1-11 mouth. ity of codeine 11:55: [place] (TYLENOL-CO 26 Medical DEINE #3 Branch ORAL) clonazePAM 2020-05 Yes .5mg Take 0.5 Uni vers 0.5 mg 1-11 mg by ity of tablet 11:55: mouth 2 [place] [address] (two) Medical times [place] daily. acetaminoph 2020-05 Yes Take by Uni vers en with 1-11 mouth. ity of codeine 11:55: [place] (TYLENOL-CO 26 Medical DEINE #3 Branch ORAL) clonazePAM 2020-05 Yes .5mg Take 0.5 Uni vers 0.5 mg 1-11 mg by ity of tablet 11:55: mouth 2 [place] 26 (two) Medical times [place] daily. acetaminoph 2020-05 Yes Take by Uni vers en with 1-11 mouth. ity of codeine 11:55: [place] (TYLENOL-CO 26 Medical DEINE #3 Branch ORAL) clonazePAM 2020- Yes .5mg Take 0.5 Uni vers 0.5 mg 1-11 mg by ity of tablet 11:55: mouth 2 [place] [address] (two) Medical times Branch daily. acetaminoph 2020-05 Yes Take by Uni vers en with 1-11 mouth. ity of codeine 11:55: [place] (TYLENOL-CO 26 Medical DEINE #3 Branch ORAL) clonazePAM 2020-1 Yes .5mg Take 0.5 Uni vers 0.5 mg 1-11 mg by ity of tablet 11:55: mouth 2 [place] [address] (two) Medical times Branch daily. acetaminoph 2020-05 Yes Take by Uni vers en with 1-11 mouth. ity of codeine 11:55: [place] (TYLENOL-CO 26 Medical DEINE #3 Branch ORAL) clonazePAM 2020- Yes .5mg Take 0.5 Uni vers 0.5 mg 1-11 mg by ity of tablet 11:55: mouth 2 [place] [address] (two) Medical times [place] daily. acetaminoph 2020-05 Yes Take by Uni vers en with 1-11 mouth. ity of codeine 11:55: [place] (TYLENOL-CO 26 Medical DEINE #3 Branch ORAL) clonazePAM 2020-1 Yes .5mg Take 0.5 Uni vers 0.5 mg 1-11 mg by ity of tablet 11:55: mouth 2 [place] [address] (two) Medical times Branch daily. acetaminoph 2020-05 Yes Take by Uni vers en with 1-11 mouth. ity of codeine 11:55: [place] (TYLENOL-CO 26 Medical DEINE #3 Branch ORAL) clonazePAM 2020-1 Yes .5mg Take 0.5 Uni vers 0.5 mg 1-11 mg by ity of tablet 11:55: mouth 2 [place] [address] (two) Medical times Branch daily. acetaminoph 2020- Yes Take by Uni vers en with 1-11 mouth. ity of codeine 11:55: [place] (TYLENOL-CO 26 Medical DEINE #3 Branch ORAL) clonazePAM 2020-1 Yes .5mg Take 0.5 Uni vers 0.5 mg 1-11 mg by ity of tablet 11:55: mouth 2 [place] 26 (two) Medical times Branch daily. acetaminoph 2020-05 Yes Take by Uni vers en with 1-11 mouth. ity of codeine 11:55: [place] (TYLENOL-CO 26 Medical DEINE #3 Branch ORAL) clonazePAM 2020-05 Yes .5mg Take 0.5 Uni vers 0.5 mg 1-11 mg by ity of tablet 11:55: mouth 2 [place] [address] (two) Medical times [place] daily. acetaminoph 2020-05 Yes Take by Un namita en with 1-11 mouth. ity of codeine 11:55: [place] (TYLENOL-CO 26 Medical DEINE #3 Branch ORAL) clonazePAM 2020-05 Yes .5mg Take 0.5 Uni vers 0.5 mg 1-11 mg by ity of tablet 11:55: mouth 2 [place] [address] (two) Medical times [place] daily. acetaminoph 2020-05 Yes Take by Uni vers en with 1-11 mouth. ity of codeine 11:55: [place] (TYLENOL-CO 26 Medical DEINE #3 Branch ORAL) clonazePAM 2020-05 Yes .5mg Take 0.5 Uni vers 0.5 mg 1-11 mg by ity of tablet 11:55: mouth 2 [place] [address] (two) Medical times [place] daily. ATENOLOL 2020-05- No Take by Unive rs ORAL 1-11 11-11 mouth. ity of 10:35: 00:00 [place] 35 :00 [facility] Branch sucralfate 2020-05 Yes 1000mg Take 10 mL Univers 100 mg/mL 1-11 by mouth ity of suspension 00:00: before [place] 00 meals and Medical at [place] bedtime. sucralfate 2020-05 Yes 1000mg Take 10 mL [facility] 100 mg/mL 1-11 by mouth ity of suspension 00:00: before [place] 00 meals and Medical at [place] bedtime. sucralfate 2020-05 Yes 1000mg Take 10 mL [facility] 100 mg/mL 1-11 by mouth ity of suspension 00:00: before [place] 00 meals and Medical at [place] bedtime. sucralfate 2020-05 Yes 1000mg Take 10 mL [facility] 100 mg/mL 1-11 by mouth ity of suspension 00:00: before [place] 00 meals and Medical at [place] bedtime. sucralfate 2020-05 Yes 1000mg Take 10 mL Univers 100 mg/mL 1-11 by mouth ity of suspension 00:00: before [place] meals and Medical at [place] bedtime. sucralfate 2020-05 Yes 1000mg Take 10 mL [facility] 100 mg/mL 1-11 by mouth ity of suspension 00:00: before [place] meals and Medical at [place] bedtime. sucralfate 2020-05 Yes 1000mg Take 10 mL [facility] 100 mg/mL 1-11 by mouth ity of suspension 00:00: before [place] meals and Medical at [place] bedtime. sucralfate 2020-05 Yes 1000mg Take 10 mL [facility] 100 mg/mL 1-11 by mouth ity of suspension 00:00: before [place] meals and Medical at [place] bedtime. sucralfate 2020-05 Yes 1000mg Take 10 mL [facility] 100 mg/mL 1-11 by mouth ity of suspension 00:00: before [place] meals and Medical at [place] bedtime. sucralfate 2020-05 Yes 1000mg Take 10 mL [facility] 100 mg/mL 1-11 by mouth ity of suspension 00:00: before [place] meals and Medical at [place] bedtime. sucralfate 2020-05 Yes 1000mg Take 10 mL Univers 100 mg/mL 1-11 by mouth ity of suspension 00:00: before [place] meals and Medical at [place] bedtime. sucralfate 2020-05 Yes 1g 1,000 mg Uni vers (CARAFATE) 1-10 (1 g), ity of 100 mg/mL 17:30: Oral, [place] suspension 00 AC+HS, Medical 1,000 mg First dose Branc h on Fri03/28/21 at 1130, Until Discontinu ed, Routine gabapentin 2020-05 Yes 300mg 300 mg, Uni vers (NEURONTIN) 1-10 Oral, TID, it y of capsule 300 14:00: First dose [place] mg 00 on Fri Medical 03/28/21 Branch at 0800, Until Discontinu ed, Routine pantoprazol 2020-05 Yes 40mg 40 mg, Univ ers e 1-10 Oral, BID, ity of (PROTONIX) 14:00: First dose [place] EC tablet 00 fri Medical 40 mg 03/28/21 Branch at 0800, Until Discontinu ed, Routine dicyclomine 2020-05 Yes 20mg 20 mg, Univ ers (BENTYL) 1-10 Oral, QID, ity o f tablet 20 14:00: First dose [place] mg 00 on Fri Medical 03/28/21 Branch at 0800, Until Discontinu ed, Routine FENTanyl PF 2020-05 No 50ug 50 mcg, Un namita (SUBLIMAZE 05-28 Slow IV ity o f (PF)) 13:32: 13:31 Push, [place] injection 19 :19 Q4HPRN, Medical 50 mcg Starting Branch on Fri03/28/21 at 0732, Until Katarzyna 03/29/21 at 0731, Routine, Pain (scale 7-10) NaCl 0.9% 2020-05 No 1000mL at 999 Uni vers (NS) bolus 1-10 11-10 mL/hr, ity of infusion 07:45: 07:02 1,000 mL, [place] as 1,000 mL 00 :00 IV Medical Piggyback, Branch ONCE, 1 dose, On Fri03/28/21 at 0145, STAT NaCl 0.9% 2020-05 Yes 1000mL at 125 Univ ers (NS) IV 1-10 mL/hr, IV ity of infusion 06:45: [place] 1[place]000 mL 00 CONTINUOUS Medic al , Starting Branch on Fri03/28/21 at 0045, Until Discontinu ed, Routine ondansetron 2020-05 Yes 4mg 4 mg, Slow Univers (ZOFRAN 1-10 IV Push, ity of (PF)) 06:38: Q6HPRN, [place] injection 4 52 Starting Medi adelina mg on Fri Branch 03/28/21 at 0038, Until Discontinu ed, Routine, Nausea and Vomiting (N/V) HYDROcodone 2020-05 No 1{tbl} 1 tablet, Univers -acetaminop 05-28-10 Oral, ity of hen (NORCO) 06:38: 13:32 Q6HPRN, [place] 10-325 mg 43 :02 Starting Medica l tablet 1 on Fri Branch tablet 03/28/21 at 0038, Until 03/28/21 at 0732, Routine, Pain (scale 7-10) traMADoL 2020-05 No 50mg 50 mg, Univer s (ULTRAM) 1-10 11-12 Oral, ity of tablet 50 06:38: 06:37 Q8HPRN, [place] mg 36 :36 Starting Medical on Fri03/28/21 at 0038, Until Fri03/30/21 at 0037, Routine, Pain (scale 4-6) acetaminoph 2020-05 Yes 650mg 650 mg, Un [place] en -10 Oral, ity of (TYLENOL) 06:38: Q6HPRN, [place] tablet 650 29 Starting Medic al mg on Fri03/28/21 at 0038, Until Discontinu ed, Routine, Pain (scale 1-3), Temp > 38.5 C pantoprazol 2020-05- No 80mg 80 mg, IV Univers e 05-28 Push, ity of (PROTONIX) 06:30: 06:32 ONCE, 1 [place] 80 mg in 00 :00 dose, On Medical NaCl 0.9% Fri (NS) 20 mL 03/28/21 syringe at 0030, Administer over 2 Minutes, 20 mL iopamidol 2020-05- No [id number] 100mL 100 mL, Univers (ISOVUE 05-28 11-10 Intravenou ity o f 370-500 mL) 05:45: 04:22 s, ONCE, 1 [place] injection 00 :00 dose, On Medica l 100 mL Fri03/27/21 at 2345, Routine FENTanyl PF 2020-05- No 100ug 100 mcg, Univers (SUBLIMAZE 05-28-10 Slow IV ity o f (PF)) 04:45: 04:36 Push, [place] injection 00 :00 ONCE, 1 Medical 100 mcg dose, On Branch Fri03/27/21 at 2245, Routine metoclopram 2020-05- No 10mg 10 mg, Uni vers magdalena HCl 05-28 11-10 Slow IV ity of (REGLAN) 03:00: 02:08 Push, [place] injection 00 :00 ONCE, 1 Medical 10 mg dose, On Branch Fri03/27/21 at 2100, MOHIT FENTanyl PF 2020-05- No 100ug 100 mcg, [facility] (SUBLIMAZE 05-28 11-10 Slow IV ity o f (PF)) 03:00: 02:11 Push, [place] injection 00 :00 ONCE, 1 Medical 100 mcg dose, On Branch Ernesto 03/27/21 at 2100, MOHIT famotidine 2020-05- No 20mg Q.5D Take 1 Meth romie (PEPCID) 20 05-21-18 tablet (20 s t MG tablet 00:00: 05:59 mg total) Ho spita 00 :00 by mouth 2 l (two) times a day for 14 days. famotidine 2020-05- No 20mg Q.5D Take 1 Meth romie (PEPCID) 20 05-2118 tablet (20 s t MG tablet 00:00: 05:59 mg total) Ho spita 00 :00 by mouth 2 l (two) times a day for 14 days. famotidine 2020-05- No 20mg Q.5D Take 1 Meth romie (PEPCID) 20 05-2118 tablet (20 s t MG tablet 00:00: 05:59 mg total) Ho spita 00 :00 by mouth 2 l (two) times a day for 14 days. famotidine 2020-05- No 20mg Q.5D Take 1 Meth romie (PEPCID) 20 05-2118 tablet (20 s t MG tablet 00:00: 05:59 mg total) Ho spita 00 :00 by mouth 2 l (two) times a day for 14 days. famotidine 2020-05- No 20mg Q.5D Take 1 Meth romie (PEPCID) 20 05-2118 tablet (20 s t MG tablet 00:00: 05:59 mg total) Ho spita 00 :00 by mouth 2 l (two) times a day for 14 days. sucralfate 2020-05- No 1g Q.25D Take 10 mL [facility] (Carafate) 05-21 ([address] 100 mg/mL 00:00: 05:59 total) by Ho spita suspension 00 :00 mouth 4 l (four) times a day for 5 days. ondansetron 2020-05- No 4mg Q8H Take 1 Met hodi ODT (Zofran 05-21 tablet (4 st ODT) 4 MG 00:00: 05:59 mg total) Ho spita disintegrat 00 :00 by mouth l ing tablet every 8 (eight) hours as needed for nausea or vomiting for up to 5 days. sucralfate 2020-05- No 1g Q.25D Take 10 mL [facility] (Carafate) 05-21 ([address] 100 mg/mL 00:00: 05:59 total) by Ho spita suspension 00 :00 mouth 4 l (four) times a day for 5 days. ondansetron 2020-05- No 4mg Q8H Take 1 Met hodi ODT (Zofran 05-21 tablet (4 st ODT) 4 MG 00:00: 05:59 mg total) Ho spita disintegrat 00 :00 by mouth l ing tablet every 8 (eight) hours as needed for nausea or vomiting for up to 5 days. sucralfate 2020-05- No 1g Q.25D Take 10 mL [facility] (Carafate) 05-21 ([address] 100 mg/mL 00:00: 05:59 total) by Ho spita suspension 00 :00 mouth 4 l (four) times a day for 5 days. ondansetron 2020-05- No 4mg Q8H Take 1 Met hodi ODT (Zofran 05-21 tablet (4 st ODT) 4 MG 00:00: 05:59 mg total) Ho spita disintegrat 00 :00 by mouth l ing tablet every 8 (eight) hours as needed for nausea or vomiting for up to 5 days. sucralfate 2020-05- No 1g Q.25D Take 10 mL [facility] (Carafate) 05-21 ([address] 100 mg/mL 00:00: 05:59 total) by Ho spita suspension 00 :00 mouth 4 l (four) times a day for 5 days. ondansetron 2020-05- No 4mg Q8H Take 1 Met hodi ODT (Zofran 05-21 tablet (4 st ODT) 4 MG 00:00: 05:59 mg total) Ho spita disintegrat 00 :00 by mouth l ing tablet every 8 (eight) hours as needed for nausea or vomiting for up to 5 days. sucralfate 2020-05 1g Q.25D Take 10 mL [facility] (Carafate) 05-21 ([address] 100 mg/mL 00:00: 05:59 total) by Ho spita suspension 00 :00 mouth 4 l (four) times a day for 5 days. ondansetron 2020-05 No 4mg Q8H Take 1 Met hodi ODT (Zofran 05-21 tablet (4 st ODT) 4 MG 00:00: 05:59 mg total) Ho spita disintegrat 00 :00 by mouth l ing tablet every 8 (eight) hours as needed for nausea or vomiting for up to 5 days. Tramadol Tramadol 2020-05 [address] Hcl Hcl 0-25 [facility] (Ultram) 50 (Ultram) 50 02:45: Patient Mg TABLET Mg TABLET [facility] Ondansetron Ondansetron 2020-05 [address] (Zofran (Zofran 0-25 [facility] Odt) 4 Mg Odt) 4 Mg 02:44: [facility] [address] [place] [address] Ondansetron Ondansetron 2020-05 [address] (Zofran (Zofran 0-25 [facility] Odt) 4 Mg Odt) 4 Mg 02:31: Pat ient TAB.RAPDIS TAB.[address] Tramadol Tramadol 2020-05 [address] Hcl Hcl 0-25 [facility] (Ultram) 50 (Ultram) 50 02:31: Patient Mg TABLET Mg TABLET [address] [place] [address] Amoxicillin 2020-05 Yes 875 mg = 1 Memoria 875 MG / 0-18 tab, PO, l Clavulanate 00:24: Q12H, X 7 H ermann 125 MG Oral 00 day, # 14 Tablet tab, 0 [Augmentin Refill(s), 875-mg] Pharmacy: [facility], 160.02, cm, 03/04/21 15:16:00 CDT, Height, 125.7, kg, 03/04/21 15:16:00 CDT, Weight Amoxicillin 2020-05 Yes 875 mg = 1 Memoria 875 MG / 0-18 tab, PO, l Clavulanate 00:24: Q12H, X 7 H ermann 125 MG Oral 00 day, # 14 Tablet tab, 0 [Augmentin Refill(s), 875-mg] Pharmacy: [facility], 160.02, cm, 03/04/21 15:16:00 CDT, Height, 125.7, kg, 03/04/21 15:16:00 CDT, Weight Morphine 2020-05 No Notes: Memoria 0-18 (Same l 00:23: as:MORPhin Myron 00 e Sulfate) Morphine 2020-05 No Notes: Memoria 0-18 (Same l 00:23: as:MORPhin [place] 00 e Sulfate) Omnipaque 2020-05 No 100 mL, Memor ia 300 0-17 Route: l injectable 23:50: IVP, Myron solution 00 Dosing Weight 125.7, kg, ONCALL, STAT, Start date: 03/04/21 18:50:00 CDT, Duration: 1 doses or times Omnipaque 2020-05 No 100 mL, Memor ia 300 0-17 Route: l injectable 23:50: IVP, [place] solution 00 Dosing Weight 125.7, kg, ONCALL, STAT, Start date: 03/04/21 18:50:00 CDT, Duration: 1 doses or times Robaxin 2020-05 No Notes: Memoria 0-17 (Same l 22:28: as:Robaxin [place] 00 ) Robaxin 2020-05 No Notes: Memoria 0-17 (Same l 22:28: as:Robaxin Myron 00 ) Ondansetron 2020-05 Yes 4 mg = 1 Me moria 4 MG Oral 0-17 tab, PO, l Tablet 21:38: Q6H, PRN Myron [Zofran] 00 Nausea/Vom iting, X 8 day, # 30 tab, 0 Refill(s), Pharmacy: [facility], 160.02, cm, 03/04/21 15:16:00 CDT, Height, 125.7, kg, 03/04/21 15:16:00 CDT, Weight Cephalexin 2020-05 No 500 mg = 1 M emoria 500 MG Oral 0-17 cap, PO, l Capsule 21:38: BID, X 7 Maikol n [Keflex] 00 day, # 14 cap, 0 Refill(s), Pharmacy: [facility], 160.02, cm, 03/04/21 15:16:00 CDT, Height, 125.7, kg, 03/04/21 15:16:00 CDT, Weight Ondansetron 2020-05 Yes 4 mg = 1 Me moria 4 MG Oral 0-17 tab, PO, l Tablet 21:38: Q6H, PRN [place] [Zofran] 00 Nausea/Vom iting, X 8 day, # 30 tab, 0 Refill(s), Pharmacy: [facility], 160.02, cm, 03/04/21 15:16:00 CDT, Height, 125.7, kg, 03/04/21 15:16:00 CDT, Weight Cephalexin 2020-05 No 500 mg = 1 M emoria 500 MG Oral 0-17 cap, PO, l Capsule 21:38: BID, X 7 Maikol n [Keflex] 00 day, # 14 cap, 0 Refill(s), Pharmacy: [facility], 160.02, cm, 03/04/21 15:16:00 CDT, Height, 125.7, kg, 03/04/21 15:16:00 CDT, Weight Dicyclomine 2020-05 Yes 10 mg = 1 M emoria Hydrochlori 0-17 cap, PO, l de 10 MG 21:37: QID-Before Her calderon Oral 00 Meals, # Capsule 28 cap, 0 [Bentyl] Refill(s), Pharmacy: [facility], 160.02, cm, 03/04/21 15:16:00 CDT, Height, 125.7, kg, 03/04/21 15:16:00 CDT, Weight Dicyclomine 2020-05 Yes 10 mg = 1 M emoria Hydrochlori 0-17 cap, PO, l de 10 MG 21:37: QID-Before Her calderon Oral 00 Meals, # Capsule 28 cap, 0 [Bentyl] Refill(s), Pharmacy: [facility], 160.02, cm, 03/04/21 15:16:00 CDT, Height, 125.7, kg, 03/04/21 15:16:00 CDT, Weight Bentyl 2020-05 No Notes: Memoria 0-17 (Same as: l 21:26: Bentyl) Myron 00 GIVE IM ONLY Bentyl 2020-05 No Notes: Memoria 0-17 (Same as: l 21:26: Bentyl) Myron 00 GIVE IM ONLY Rocephin + 2020-05 No Notes: Memor ia sterile 0-17 (Same As: l water 10 mL 21:25: Rocephin). Myron 00 Use with 100 mL NS and infuse over 30 min MEDICATION WASTE Product Size: 1000 mg Product Wasted: ___ mg Rocephin + 2020-05 No Notes: Memor ia sterile 0-17 (Same As: l water 10 mL 21:25: Rocephin). Myron 00 Use with 100 mL NS and infuse over 30 min MEDICATION WASTE Product Size: 1000 mg Product Wasted: ___ mg Bentyl 2020-05 No Notes: Memoria 0-17 (Same as: l 21:16: Bentyl) [place] 00 GIVE IM ONLY Bentyl 2020-05 No Notes: Memoria 0-17 (Same as: l 21:16: Bentyl) Myron 00 GIVE IM ONLY Saline 2020-05 No Notes: Memoria Flush 0.9% 0-17 (Same as: l 20:20: BD [place] 00 Posiflush) Sodium 2020-05 No 1,000 mL, Memori a Chloride 0-17 1000 l 0.9% 20:20: ml/hr, [place] (Bolus) IV 00 Infuse Over: 1 hr, Route: IV, 1,000, Drug form: INJ, ONCE, Priority: STAT, Dosing Weight 113.636 kg, Start date: 03/04/21 15:20:00 CDT, Stop date: 03/04/21 15:20:00 CDT, 0 Acetaminoph 2020-05 No Notes: Do M emoria en 0-17 not exceed l 20:20: 4 gm/day. [place] 00 (Same as: Tylenol) Ondansetron 2020-05 No Notes: Gene sandy 0-17 (Same as: l 20:20: Zofran) Myron 00 MEDICATION WASTE Product Size: 4 mg Product Wasted: ___ mg Promethazin 2020-05 No Notes: Do M emoria e 0-17 not give l 20:20: IV push. Myron 00 (Same as: Phenergan) Famotidine 2020-05 No Notes: Memor ia 0-17 (Same as: l 20:20: Pepcid) Myron 00 Can be dilute in 5-10cc NS IVP: Slow IV push over at least 2 minutes. Saline 2020-05 No Notes: Memoria Flush 0.9% 0-17 (Same as: l 20:20: BD Myron 00 Posiflush) Sodium 2020-05 No 1,000 mL, Memori a Chloride 0-17 1000 l 0.9% 20:20: ml/hr, Myron (Bolus) IV 00 Infuse Over: 1 hr, Route: IV, 1,000, Drug form: INJ, ONCE, Priority: STAT, Dosing Weight 113.636 kg, Start date: 03/04/21 15:20:00 CDT, Stop date: 03/04/21 15:20:00 CDT, 0 Acetaminoph 2020-05 No Notes: Do M emoria en 0-17 not exceed l 20:20: 4 gm/day. [place] 00 (Same as: Tylenol) Ondansetron 2020-05 No Notes: Gene sandy 0-17 (Same as: l 20:20: Zofran) [place] 00 MEDICATION WASTE Product Size: 4 mg Product Wasted: ___ mg Promethazin 2020-05 No Notes: Do M emoria e 0-17 not give l 20:20: IV push. [place] 00 (Same as: Phenergan) Famotidine 2020-05 No Notes: Memor ia 0-17 (Same as: l 20:20: Pepcid) Myron 00 Can be dilute in 5-10cc NS IVP: Slow IV push over at least 2 minutes. ondansetron 2020-05 No 4mg 4 mg, Slow [facility] (ZOFRAN 0-14 10-14 IV Push, ity of (PF)) 23:30: 22:44 ONCE, 1 [place] injection 4 00 :00 dose, On Medi adelina mg Katarzyna Branch 03/01/21 at 1830, MOHIT proMETHazin 2020-05 Yes [id number] 25mg Take 1 [facility] e 25 mg 0-14 tablet by ity of tablet 00:00: mouth [place] 00 every 6 Medical (six) Branch hours as needed for Nausea and Vomiting (N/V). proMETHazin 2020-05 Yes [id number] 25mg Take 1 [facility] e 25 mg 0-14 tablet by ity of tablet 00:00: mouth [place] 00 every 6 Medical (six) Branch hours as needed for Nausea and Vomiting (N/V). proMETHazin 2020-05 Yes [id number] 25mg Take 1 [facility] e 25 mg 0-14 tablet by ity of tablet 00:00: mouth [place] 00 every 6 Medical (six) Branch hours as needed for Nausea and Vomiting (N/V). proMETHazin 2020-05 Yes [id number] 25mg Take 1 [facility] e 25 mg 0-14 tablet by ity of tablet 00:00: mouth [place] 00 every 6 Medical (six) Branch hours as needed for Nausea and Vomiting (N/V). proMETHazin 2020-05 Yes [id number] 25mg Take 1 [facility] e 25 mg 0-14 tablet by ity of tablet 00:00: mouth [place] 00 every 6 Medical (six) Branch hours as needed for Nausea and Vomiting (N/V). proMETHazin 2020-05 Yes [id number] 25mg Take 1 Univers e 25 mg 0-14 tablet by ity of tablet 00:00: mouth [place] 00 every 6 Medical (six) Branch hours as needed for Nausea and Vomiting (N/V). proMETHazin 2020-05 Yes [id number] 25mg Take 1 [facility] e 25 mg 0-14 tablet by ity of tablet 00:00: mouth [place] 00 every 6 Medical (six) Branch hours as needed for Nausea and Vomiting (N/V). proMETHazin 2020-05 Yes [id number] 25mg Take 1 Univers e 25 mg 0-14 tablet by ity of tablet 00:00: mouth [place] 00 every 6 Medical (six) Branch hours as needed for Nausea and Vomiting (N/V). proMETHazin 2020-05 Yes [id number] 25mg Take 1 [facility] e 25 mg 0-14 tablet by ity of tablet 00:00: mouth [place] 00 every 6 Medical (six) Branch hours as needed for Nausea and Vomiting (N/V). proMETHazin 2020-05 Yes [id number] 25mg Take 1 [facility] e 25 mg 0-14 tablet by ity of tablet 00:00: mouth [place] 00 every 6 Medical (six) Branch hours as needed for Nausea and Vomiting (N/V). proMETHazin 2020-05 Yes [id number] 25mg Take 1 [facility] e 25 mg 0-14 tablet by ity of tablet 00:00: mouth [place] 00 every 6 Medical (six) Branch hours as needed for Nausea and Vomiting (N/V). proMETHazin 2020-05 Yes [id number] 25mg Take 1 [facility] e 25 mg 0-14 tablet by ity of tablet 00:00: mouth [place] 00 every 6 Medical (six) Branch hours as needed for Nausea and Vomiting (N/V). proMETHazin 2020-05 Yes [id number] 25mg Take 1 [facility] e 25 mg 0-14 tablet by ity of tablet 00:00: mouth [place] 00 every 6 Medical (six) Branch hours as needed for Nausea and Vomiting (N/V). proMETHazin Yes [id number] 12.5mg Insert 1 [facility] e 12.5 mg 9-17 Suppositor ity of suppository 00:00: [place] rectum Medical every 4 Branch (four) hours as needed for Nausea and Vomiting (N/V). proMETHazin Yes [id number] 12.5mg Insert 1 [facility] e 12.5 mg 9-17 Suppositor ity of suppository 00:00: [place] rectum Medical every 4 Branch (four) hours as needed for Nausea and Vomiting (N/V). proMETHazin Yes [id number] 12.5mg Insert 1 [facility] e 12.5 mg 9-17 Suppositor ity of suppository 00:00: [place] 00 rectum Medical every 4 Branch (four) hours as needed for Nausea and Vomiting (N/V). proMETHazin Yes [id number] 12.5mg Insert 1 [facility] e 12.5 mg 9-17 Suppositor ity of suppository 00:00: [place] 00 rectum Medical every 4 Branch (four) hours as needed for Nausea and Vomiting (N/V). proMETHazin Yes [id number] 12.5mg Insert 1 [facility] e 12.5 mg 9-17 Suppositor ity of suppository 00:00: y [place] 00 rectum Medical every 4 Branch (four) hours as needed for Nausea and Vomiting (N/V). proMETHazin Yes [id number] 12.5mg Insert 1 [facility] e 12.5 mg 9-17 Suppositor ity of suppository 00:00: [place] 00 rectum Medical every 4 Branch (four) hours as needed for Nausea and Vomiting (N/V). proMETHazin Yes [id number] 12.5mg Insert 1 [facility] e 12.5 mg 9-17 Suppositor ity of suppository 00:00: y [place] 00 rectum Medical every 4 Branch (four) hours as needed for Nausea and Vomiting (N/V). proMETHazin Yes [id number] 12.5mg Insert 1 [facility] e 12.5 mg 9-17 Suppositor ity of suppository 00:00: y [place] 00 rectum Medical every 4 Branch (four) hours as needed for Nausea and Vomiting (N/V). proMETHazin Yes [id number] 12.5mg Insert 1 [facility] e 12.5 mg 9-17 Suppositor ity of suppository 00:00: y [place] 00 rectum Medical every 4 Branch (four) hours as needed for Nausea and Vomiting (N/V). proMETHazin Yes [id number] 12.5mg Insert 1 [facility] e 12.5 mg 9-17 Suppositor ity of suppository 00:00: y [place] 00 rectum Medical every 4 Branch (four) hours as needed for Nausea and Vomiting (N/V). proMETHazin Yes [id number] 12.5mg Insert 1 [facility] e 12.5 mg 9-17 Suppositor ity of suppository 00:00: y [place] 00 rectum Medical every 4 Branch (four) hours as needed for Nausea and Vomiting (N/V). proMETHazin Yes [id number] 12.5mg Insert 1 [facility] e 12.5 mg 9-17 Suppositor ity of suppository 00:00: y [place] 00 rectum Medical every 4 Branch (four) hours as needed for Nausea and Vomiting (N/V). proMETHazin Yes [id number] 12.5mg Insert 1 [facility] e 12.5 mg 9-17 Suppositor ity of suppository 00:00: [place] 00 rectum Medical every 4 Branch (four) hours as needed for Nausea and Vomiting (N/V). proMETHazin Yes [id number] 12.5mg Insert 1 [facility] e 12.5 mg 9-17 Suppositor ity of suppository 00:00: [place] 00 rectum Medical every 4 Branch (four) hours as needed for Nausea and Vomiting (N/V). proMETHazin 0 Yes [id number] 12.5mg Insert 1 [facility] e 12.5 mg 9-17 Suppositor ity of suppository 00:00: [place] rectum Medical every 4 Branch (four) hours as needed for Nausea and Vomiting (N/V). Ondansetron Yes 4 mg = 1 Me moria 4 MG 9-15 tab, PO, l Disintegrat 01:02: TID, PRN He rmann ing Tablet 00 Nausea / Vomiting, Dissolve tab under tongue, X 3 day, # 10 tab, 0 Refill(s) Ondansetron Yes 4 mg = 1 Me moria 4 MG 9-15 tab, PO, l Disintegrat 01:02: TID, PRN He rmann ing Tablet 00 Nausea / Vomiting, Dissolve tab under tongue, X 3 day, # 10 tab, 0 Refill(s) Dicyclomine Yes 10 mg = 1 M emoria Hydrochlori 9-15 cap, PO, l de 10 MG 01:00: QID-Before Her calderon Oral 00 Meals, # Capsule 40 cap, 0 [Bentyl] Refill(s), 160.02, cm, 01/30/21 17:06:00 CDT, Height, 123.7, kg, 01/30/21 17:06:00 CDT, Weight Dicyclomine Yes 10 mg = 1 M emoria Hydrochlori 9-15 cap, PO, l de 10 MG 01:00: QID-Before Her calderon Oral 00 Meals, # Capsule 40 cap, 0 [Bentyl] Refill(s), 160.02, cm, 01/30/21 17:06:00 CDT, Height, 123.7, kg, 01/30/21 17:06:00 CDT, Weight ondansetron 202- No 4mg Q8H Take 1 Met hodi ODT (Zofran 9-15 09-20 tablet (4 st ODT) 4 MG 00:00: 04:59 mg total) Ho spita disintegrat 00 :00 by mouth l ing tablet every 8 (eight) hours as needed for nausea or vomiting for up to 4 days. ondansetron 2020- No 4mg Q8H Take 1 Met hodi ODT (Zofran 9-15 -20 tablet (4 st ODT) 4 MG 00:00: 04:59 mg total) Ho spita disintegrat 00 :00 by mouth l ing tablet every 8 (eight) hours as needed for nausea or vomiting for up to 4 days. ondansetron 0 2020- No 4mg Q8H Take 1 Met hodi ODT (Zofran -15 -20 tablet (4 st ODT) 4 MG 00:00: 04:59 mg total) Ho spita disintegrat 00 :00 by mouth l ing tablet every 8 (eight) hours as needed for nausea or vomiting for up to 4 days. ondansetron 2020- No 4mg Q8H Take 1 Met hodi ODT (Zofran -15 09-20 tablet (4 st ODT) 4 MG 00:00: 04:59 mg total) Ho spita disintegrat 00 :00 by mouth l ing tablet every 8 (eight) hours as needed for nausea or vomiting for up to 4 days. ondansetron 2020-0 2020- No 4mg Q8H Take 1 Met hodi ODT (Zofran 9-15 09-20 tablet (4 st ODT) 4 MG 00:00: 04:59 mg total) Ho spita disintegrat 00 :00 by mouth l ing tablet every 8 (eight) hours as needed for nausea or vomiting for up to 4 days. Morphine No 4 mg, Memoria 9-14 Route: l 22:18: IVP, ONCE, Dosing Weight 123.7, kg, Priority: STAT, Start date: 01/30/21 17:18:00 CDT, Stop date: 01/30/21 17:18:00 CDT Morphine 1-0 No 4 mg, Memoria 9-14 Route: l 22:18: IVP, ONCE, Dosing Weight 123.7, kg, Priority: STAT, Start date: 01/30/21 17:18:00 CDT, Stop date: 01/30/21 17:18:00 CDT Sodium 1-0 No 984.8 mL, Memori a Chloride 9-14 Rate: 100 l 0.9% IV 22:17: ml/hr, Myron 984.8 mL + 00 Infuse M.V.I.-12 over: 10 10 mL Daily hr, Route: + folic IV, Dosing acid IV 1 Weight mg Daily + 123.7 kg, thiamine IV Total 5 Volume: 1,000, Start date: 01/30/21 17:17:00 CDT, Duration: 1 doses or times, Stop date: 01/31/21 3:16:00 CDT, BSA: 2.39 m2, 0 Sodium 1-0 No 984.8 mL, Memori a Chloride 9-14 Rate: 100 l 0.9% IV 22:17: ml/hr, Myron 984.8 mL + 00 Infuse M.V.I.-12 over: 10 10 mL Daily hr, Route: + folic IV, Dosing acid IV 1 Weight mg Daily + 123.7 kg, thiamine IV Total 5 Volume: 1,000, Start date: 01/30/21 17:17:00 CDT, Duration: 1 doses or times, Stop date: 01/31/21 3:16:00 CDT, BSA: 2.39 m2, 0 Saline 2020-0 No Notes: Memoria Flush 0.9% 9-14 (Same as: l 22:12: BD Myron 00 Posiflush) Sodium 1-0 No 1,000 mL, Memori a Chloride 9-14 1000 l 0.9% 22:12: ml/hr, [place] (Bolus) IV 00 Infuse Over: 1 hr, Route: IV, 1,000, Drug form: INJ, ONCE, Priority: STAT, Dosing Weight 123.7 kg, Start date: 01/30/21 17:12:00 CDT, Stop date: 01/30/21 17:12:00 CDT, 0 Ketorolac 0 No 4 days Memor ia 01-30 l 22:12: MEDICATION [place] WASTE Product Size: 30 mg Product Wasted: ___ mg Ondansetron No Notes: Gene sandy 01-30 (Same as: l 22:12: Zofran) Myron 00 MEDICATION WASTE Product Size: 4 mg Product Wasted: ___ mg Saline No Notes: Memoria Flush 0.9% 01-30 (Same as: l 22:12: BD Myron 00 Posiflush) Sodium No 1,000 mL, Memori a Chloride 01-30 1000 l 0.9% 22:12: ml/hr, Myron (Bolus) IV 00 Infuse Over: 1 hr, Route: IV, 1,000, Drug form: INJ, ONCE, Priority: STAT, Dosing Weight 123.7 kg, Start date: 01/30/21 17:12:00 CDT, Stop date: 01/30/21 17:12:00 CDT, 0 Ketorolac No 4 days Memor ia 01-30 l 22:12: MEDICATION [place] 00 WASTE Product Size: 30 mg Product Wasted: ___ mg Ondansetron No Notes: Gene sandy 01-30 (Same as: l 22:12: Zofran) Myron 00 MEDICATION WASTE Product Size: 4 mg Product Wasted: ___ mg ondansetron 2020- No 4mg 4 mg, Slow [facility] (ZOFRAN 01-29 IV Push, ity of (PF)) 01:45: 00:44 ONCE, 1 [place] injection 4 00 :00 dose, On Medi adelina mg [place] [facility] 01/28/21 at 2045, MOHIT morpHINE No 4mg 4 mg, Slow [place] injection 4 01-29 IV Push, ity of mg 01:45: 00:45 ONCE, 1 [place] 00 :00 dose, On Medical [facility] 01/28/21 at 2044, STAT NaCl 0.9% 2020- No 1000mL at 999 Uni vers (NS) bolus 01-29 mL/hr, ity of infusion 01:45: 02:35 1,000 mL, [place] as 1,000 mL 00 :00 IV Medical Infusion, Branch ONCE, 1 dose, On [place] 01/28/21 at 2044, STAT ondansetron 2020- No 4mg 4 mg, Slow [facility] (ZOFRAN 01-29 IV Push, ity of (PF)) 01:45: 00:44 ONCE, 1 [place] injection 4 00 :00 dose, On Medi adelina mg [facility] 01/28/21 at 2044, MOHIT morpHINE 2020- No 4mg 4 mg, Slow [place] injection 4 01-29 IV Push, ity of mg 01:45: 00:45 ONCE, 1 [place] 00 :00 dose, On Medical [facility] 01/28/21 at 2044, STAT NaCl 0.9% 2020- No 1000mL at 999 Uni vers (NS) bolus 01-29 mL/hr, ity of infusion 01:45: 02:35 1,000 mL, [place] as 1,000 mL 00 :00 IV Medical Infusion, Branch ONCE, 1 dose, On [place] 01/28/21 at 2044, STAT dicyclomine 0 Yes [id number] 20mg Take 1 [facility] 20 mg 9-12 tablet by ity of tablet 00:00: mouth 4 [place] 00 (four) Medical times Branch daily. ondansetron Yes [id number] 4mg Take 1 [facility] 4 mg 9-12 tablet by ity of disintegrat 00:00: mouth [place] ing tablet 00 every 4 Medica l (four) Branch hours as needed for Nausea and Vomiting (N/V). loperamide Yes [id number] 2mg Take 1 [facility] 2 mg 9-12 capsule by ity of capsule 00:00: mouth 2 [place] 00 (two) Medical times Branch daily as needed for Diarrhea. dicyclomine Yes [id number] 20mg Take 1 [facility] 20 mg 9-12 tablet by ity of tablet 00:00: mouth (four) Medical times Branch daily. loperamide 2020-0 Yes [id number] 2mg Take 1 [facility] 2 mg 9-12 capsule by ity of capsule 00:00: mouth (two) Medical times Branch daily as needed for Diarrhea. dicyclomine 2020-0 Yes [id number] 20mg Take 1 [facility] 20 mg 9-12 tablet by ity of tablet 00:00: mouth (four) Medical times Branch daily. loperamide 2020-0 Yes [id number] 2mg Take 1 [facility] 2 mg 9-12 capsule by ity of capsule 00:00: mouth (two) Medical times Branch daily as needed for Diarrhea. dicyclomine 2020-0 Yes [id number] 20mg Take 1 [facility] 20 mg 9-12 tablet by ity of tablet 00:00: mouth () Medical times Branch daily. loperamide 2020-0 Yes [id number] 2mg Take 1 [facility] 2 mg 9-12 capsule by ity of capsule 00:00: mouth (two) Medical times Branch daily as needed for Diarrhea. dicyclomine 2020-0 Yes [id number] 20mg Take 1 [facility] 20 mg 9-12 tablet by ity of tablet 00:00: mouth () Medical times Branch daily. loperamide 2020-0 Yes [id number] 2mg Take 1 [facility] 2 mg 9-12 capsule by ity of capsule 00:00: mouth (two) Medical times Branch daily as needed for Diarrhea. dicyclomine 2020-0 Yes [id number] 20mg Take 1 [facility] 20 mg 9-12 tablet by ity of tablet 00:00: mouth (four) Medical times Branch daily. loperamide 2020-0 Yes [id number] 2mg Take 1 [facility] 2 mg 9-12 capsule by [facility] capsule 00:00: mouth (two) Medical times [facility] daily as needed for Diarrhea. dicyclomine 1-0 Yes [id number] 20mg Take 1 [facility] 20 mg 9-12 tablet by [facility] tablet 00:00: mouth () [facility] times [facility] daily. loperamide 2020-0 Yes [id number] 2mg Take 1 [facility] 2 mg 9-12 capsule by [facility] capsule 00:00: mouth (two) Medical times [facility] daily as needed for Diarrhea. dicyclomine 1-0 Yes [id number] 20mg Take 1 [facility] 20 mg 9-12 tablet by [facility] tablet 00:00: mouth (four) Medical times [facility] daily. loperamide 2020-0 Yes [id number] 2mg Take 1 [facility] 2 mg 9-12 capsule by [facility] capsule 00:00: mouth (two) Medical times [facility] daily as needed for Diarrhea. dicyclomine 2020-0 Yes [id number] 20mg Take 1 [facility] 20 mg 9-12 tablet by [facility] tablet 00:00: mouth (four) Medical times [facility] daily. loperamide 1-0 Yes [id number] 2mg Take 1 [facility] 2 mg 9-12 capsule by [facility] capsule 00:00: mouth (two) Medical times [facility] daily as needed for Diarrhea. dicyclomine 1-0 Yes [id number] 20mg Take 1 [facility] 20 mg 9-12 tablet by [facility] tablet 00:00: mouth (four) Medical times [facility] daily. loperamide 1-0 Yes [id number] 2mg Take 1 [facility] 2 mg 9-12 capsule by [facility] capsule 00:00: mouth (two) Medical times [facility] daily as needed for Diarrhea. dicyclomine 1-0 Yes [id number] 20mg Take 1 [facility] 20 mg 9-12 tablet by [facility] tablet 00:00: mouth (four) Medical times [facility] daily. loperamide 1-0 Yes [id number] 2mg Take 1 [facility] 2 mg 9-12 capsule by [facility] capsule 00:00: mouth (two) Medical times [facility] daily as needed for Diarrhea. dicyclomine 2021-0 Yes [id number] 20mg Take 1 [facility] 20 mg 9-12 tablet by ity of tablet 00:00: mouth (four) Medical times Branch daily. loperamide 2021-0 Yes [id number] 2mg Take 1 [facility] 2 mg 9-12 capsule by ity of capsule 00:00: mouth (two) Medical times Branch daily as needed for Diarrhea. dicyclomine 2021-0 Yes [id number] 20mg Take 1 [facility] 20 mg 9-12 tablet by ity of tablet 00:00: mouth (four) Medical times Branch daily. ondansetron 2020-0 Yes [id number] 4mg Take 1 [facility] 4 mg 9-12 tablet by ity of disintegrat 00:00: mouth [place] ing tablet 00 every 4 Medica l (four) Branch hours as needed for Nausea and Vomiting (N/V). loperamide 2020-0 Yes [id number] 2mg Take 1 [facility] 2 mg 9-12 capsule by ity of capsule 00:00: mouth 2 (two) Medical times Branch daily as needed for Diarrhea. dicyclomine 2020-0 Yes [id number] 20mg Take 1 [facility] 20 mg 9-12 tablet by ity of tablet 00:00: mouth (four) Medical times Branch daily. ondansetron 2020-0 Yes [id number] 4mg Take 1 [facility] 4 mg 9-12 tablet by ity of disintegrat 00:00: mouth [place] ing tablet 00 every 4 Medica l (four) Branch hours as needed for Nausea and Vomiting (N/V). loperamide 2020-0 Yes [id number] 2mg Take 1 [facility] 2 mg 9-12 capsule by ity of capsule 00:00: mouth (two) Medical times Branch daily as needed for Diarrhea. dicyclomine 2020-0 Yes [id number] 20mg Take 1 [facility] 20 mg 9-12 tablet by ity of tablet 00:00: mouth (four) Medical times Branch daily. ondansetron 2020-0 Yes [id number] 4mg Take 1 [facility] 4 mg 9-12 tablet by ity of disintegrat 00:00: mouth [place] ing tablet 00 every 4 Medica l (four) Branch hours as needed for Nausea and Vomiting (N/V). loperamide 2021-0 Yes [id number] 2mg Take 1 [facility] 2 mg 9-12 capsule by ity of capsule 00:00: mouth 2 (two) Medical times Branch daily as needed for Diarrhea. dicyclomine 2021-0 Yes [id number] 20mg Take 1 [facility] 20 mg 9-12 tablet by ity of tablet 00:00: mouth 4 (four) Medical times Branch daily. ondansetron 2020-0 Yes [id number] 4mg Take 1 [facility] 4 mg 9-12 tablet by ity of disintegrat 00:00: mouth [place] ing tablet 00 every 4 Medica l (four) Branch hours as needed for Nausea and Vomiting (N/V). loperamide 2020-0 Yes [id number] 2mg Take 1 [facility] 2 mg 9-12 capsule by ity of capsule 00:00: mouth 2 [place] 00 (two) Medical times Branch daily as needed for Diarrhea. dicyclomine Yes [id number] 20mg Take 1 [facility] 20 mg 9-12 tablet by ity of tablet 00:00: mouth 4 00 (four) Medical times Branch daily. ondansetron 2020-0 Yes [id number] 4mg Take 1 [facility] 4 mg 9-12 tablet by ity of disintegrat 00:00: mouth [place] ing tablet 00 every 4 Medica l (four) Branch hours as needed for Nausea and Vomiting (N/V). loperamide Yes [id number] 2mg Take 1 [facility] 2 mg 9-12 capsule by ity of capsule 00:00: mouth 2 00 (two) Medical times Branch daily as needed for Diarrhea. ondansetron 2020- No [id number] 4mg Take 1 [facility] 4 mg 9-12 11-11 tablet by ity of disintegrat 00:00: 00:00 [place] tablet 00 :00 every 4 Medica l (four) Branch hours as needed for Nausea and Vomiting (N/V). Doxycycline Doxycycline Yes [address] [facility]cl[facility] 01-22 [facility] 14:[facility]: Patient [address] [place] [address] HYDROcodone 2020- No 1{tbl} 1 tablet, [facility] -acetaminop 01-22 Oral, ity of hen (NORCO 02:30: 01:42 ONCE, 1 [place] 5) 5-325 mg 00 :00 dose, [facility] tablet 1 01/21/21 at Branch tablet 2130, [facility] HYDROcodone 2020- No 1{tbl} 1 tablet, [facility] -acetaminop 01-22 Oral, ity of hen (NORCO 02:30: 01:42 ONCE, 1 [place] 5) 5-325 mg 00 :00 dose, [facility] tablet 1 01/21/21 at [place] tablet 2130, [facility]OH[facility] ondansetron 2020-0 202- No 4mg 4 mg, Slow [facility] (ZOFRAN 01-21 IV Push, ity of (PF)) 23:30: 23:11 ONCE, 1 [place] injection 4 00 :00 dose, [facility] mg 01/21/21 at Branch 1830, [place] morpHINE 2020-0 202- No 4mg 4 mg, Slow [place] injection 4 01-21 IV Push, ity of mg 23:30: 23:11 ONCE, 1 [place] 00 :00 dose, [facility] 01/21/21 at Branch 1830, STAT ondansetron 2020-2020- No 4mg 4 mg, Slow [facility] (ZOFRAN 01-21 IV Push, ity of (PF)) 23:30: 23:11 ONCE, 1 [place] injection 4 00 :00 dose, [facility] mg 01/21/21 at Branch 1830, MOHIT morpHINE 2020-0 2020- No 4mg 4 mg, Slow [place] injection 4 01-21 IV Push, ity of mg 23:30: 23:11 ONCE, 1 [place] 00 :00 dose, [facility] 01/21/21 at Branch 1830, STAT NaCl 0.9% 2020-2020- No 500mL at 999 [facility] ers (NS) bolus 01-21 09-06 mL/hr, 500 it y of infusion 23:15: 01:44 mL, IV [place] 500 mL 00 :00 Piggyback, Medical ONCE, 1 Branch dose, [place] 01/21/21 at 1815, STAT NaCl 0.9% 2020-0 2020- No 500mL at 999 [facility] ers (NS) bolus - 09-06 mL/hr, 500 it y of infusion 23:15: 01:44 mL, IV [place] 500 mL 00 :00 Piggyback, Medical ONCE, 1 Branch dose, [place] 01/21/21 at 1815, STAT methocarbam 2020- Yes [id number] 500mg Take 1 [facility] oL 01-21 tablet by ity of (ROBAXIN) 00:00: mouth [place] 500 mg 00 every 6 Medical tablet (six) Branch hours as needed for Pain (scale 7-10) (MUSCLE SPASM). gabapentin 2021-0 Yes [id number] 300mg Take 1 [facility] 300 mg 9-05 capsule by ity of capsule 00:00: mouth 3 [place] 00 (three) Medical times Branch daily. methocarbam 2021-0 Yes [id number] 500mg Take 1 [facility] oL 9-05 tablet by ity of (ROBAXIN) 00:00: mouth [place] 500 mg 00 every 6 Medical tablet (six) Branch hours as needed for Pain (scale 7-10) (MUSCLE SPASM). gabapentin 2021-0 Yes [id number] 300mg Take 1 [facility] 300 mg 9-05 capsule by ity of capsule 00:00: mouth 3 [place] 00 (three) Medical times Branch daily. methocarbam 2021-0 Yes [id number] 500mg Take 1 [facility] oL 9-05 tablet by ity of (ROBAXIN) 00:00: mouth [place] 500 mg 00 every 6 Medical tablet (six) Branch hours as needed for Pain (scale 7-10) (MUSCLE SPASM). gabapentin 2020-0 Yes [id number] 300mg Take 1 [facility] 300 mg 9-05 capsule by ity of capsule 00:00: mouth 3 [place] 00 (three) Medical times Branch daily. methocarbam 2021-0 Yes [id number] 500mg Take 1 [facility] oL 9-05 tablet by ity of (ROBAXIN) 00:00: mouth [place] 500 mg 00 every 6 Medical tablet (six) Branch hours as needed for Pain (scale 7-10) (MUSCLE SPASM). gabapentin 2021-0 Yes [id number] 300mg Take 1 [facility] 300 mg 9-05 capsule by ity of capsule 00:00: mouth 3 [place] 00 (three) Medical times Branch daily. methocarbam 2021-0 Yes [id number] 500mg Take 1 [facility] oL 9-05 tablet by ity of (ROBAXIN) 00:00: mouth [place] 500 mg 00 every 6 Medical tablet (six) Branch hours as needed for Pain (scale 7-10) (MUSCLE SPASM). gabapentin 2021-0 Yes [id number] 300mg Take 1 [facility] 300 mg 9-05 capsule by ity of capsule 00:00: mouth 3 [place] 00 (three) Medical times Branch daily. methocarbam 2021-0 Yes [id number] 500mg Take 1 [facility] oL 9-05 tablet by ity of (ROBAXIN) 00:00: mouth [place] 500 mg 00 every 6 Medical tablet (six) Branch hours as needed for Pain (scale 7-10) (MUSCLE SPASM). gabapentin 2021-0 Yes [id number] 300mg Take 1 [facility] 300 mg 9-05 capsule by ity of capsule 00:00: mouth 3 [place] 00 (three) Medical times Branch daily. methocarbam 2021-0 Yes [id number] 500mg Take 1 [facility] oL 9-05 tablet by ity of (ROBAXIN) 00:00: mouth [place] 500 mg 00 every 6 Medical tablet (six) Branch hours as needed for Pain (scale 7-10) (MUSCLE SPASM). gabapentin 2020-0 Yes [id number] 300mg Take 1 [facility] 300 mg 9-05 capsule by ity of capsule 00:00: mouth 3 [place] 00 (three) Medical times Branch daily. methocarbam 2021-0 Yes [id number] 500mg Take 1 [facility] oL 9-05 tablet by ity of (ROBAXIN) 00:00: mouth [place] 500 mg 00 every 6 Medical tablet (six) Branch hours as needed for Pain (scale 7-10) (MUSCLE SPASM). gabapentin 2020-0 Yes [id number] 300mg Take 1 [facility] 300 mg 9-05 capsule by ity of capsule 00:00: mouth 3 [place] 00 (three) Medical times Branch daily. methocarbam 1-0 Yes [id number] 500mg Take 1 [facility] oL 9-05 tablet by ity of (ROBAXIN) 00:00: mouth [place] 500 mg 00 every 6 Medical tablet (six) Branch hours as needed for Pain (scale 7-10) (MUSCLE SPASM). gabapentin 2020-0 Yes [id number] 300mg Take 1 [facility] 300 mg 9-05 capsule by ity of capsule 00:00: mouth 3 [place] 00 (three) Medical times Branch daily. methocarbam 2021-0 Yes [id number] 500mg Take 1 [facility] oL 9-05 tablet by ity of (ROBAXIN) 00:00: mouth [place] 500 mg 00 every 6 Medical tablet (six) Branch hours as needed for Pain (scale 7-10) (MUSCLE SPASM). gabapentin 2021-0 Yes [id number] 300mg Take 1 [facility] 300 mg 9-05 capsule by ity of capsule 00:00: mouth 3 [place] (three) Medical times Branch daily. methocarbam 2021-0 Yes [id number] 500mg Take 1 [facility] oL 9-05 tablet by ity of (ROBAXIN) 00:00: mouth [place] 500 mg 00 every 6 Medical tablet (six) Branch hours as needed for Pain (scale 7-10) (MUSCLE SPASM). gabapentin 2021-0 Yes [id number] 300mg Take 1 [facility] 300 mg 9-05 capsule by ity of capsule 00:00: mouth 3 [place] 00 (three) Medical times Branch daily. methocarbam 2021-0 Yes [id number] 500mg Take 1 [facility] oL 9-05 tablet by ity of (ROBAXIN) 00:00: mouth [place] 500 mg 00 every 6 Medical tablet (six) Branch hours as needed for Pain (scale 7-10) (MUSCLE SPASM). gabapentin 202-0 Yes [id number] 300mg Take 1 [facility] 300 mg 9-05 capsule by ity of capsule 00:00: mouth (three) Medical times Branch daily. methocarbam 2021-0 Yes [id number] 500mg Take 1 [facility] oL 9-05 tablet by ity of (ROBAXIN) 00:00: mouth [place] 500 mg 00 every 6 Medical tablet (six) Branch hours as needed for Pain (scale 7-10) (MUSCLE SPASM). gabapentin 1-0 Yes [id number] 300mg Take 1 [facility] 300 mg 9-05 capsule by ity of capsule 00:00: mouth 3 (three) Medical times Branch daily. methocarbam 2021-0 Yes [id number] 500mg Take 1 [facility] oL 9-05 tablet by ity of (ROBAXIN) 00:00: mouth [place] 500 mg 00 every 6 Medical tablet (six) Branch hours as needed for Pain (scale 7-10) (MUSCLE SPASM). gabapentin 2021-0 Yes [id number] 300mg Take 1 [facility] 300 mg 9-05 capsule by ity of capsule 00:00: mouth 3 [place] 00 (three) Medical times Branch daily. methocarbam 2021-0 Yes [id number] 500mg Take 1 [facility] oL 9-05 tablet by ity of (ROBAXIN) 00:00: mouth [place] 500 mg 00 every 6 Medical tablet (six) Branch hours as needed for Pain (scale 7-10) (MUSCLE SPASM). gabapentin 2021-0 Yes [id number] 300mg Take 1 [facility] 300 mg 9-05 capsule by ity of capsule 00:00: mouth 3 (three) Medical times Branch daily. methocarbam 2020-0 Yes [id number] 500mg Take 1 [facility] oL 9-05 tablet by ity of (ROBAXIN) 00:00: mouth [place] 500 mg 00 every 6 Medical tablet (six) Branch hours as needed for Pain (scale 7-10) (MUSCLE SPASM). gabapentin 2020-0 Yes [id number] 300mg Take 1 [facility] 300 mg 9-05 capsule by ity of capsule 00:00: mouth 3 [place] 00 (three) Medical times Branch daily. methocarbam 2020-0 Yes [id number] 500mg Take 1 [facility] oL 9-05 tablet by ity of (ROBAXIN) 00:00: mouth [place] 500 mg 00 every 6 Medical tablet (six) Branch hours as needed for Pain (scale 7-10) (MUSCLE SPASM). gabapentin 2020-0 Yes [id number] 300mg Take 1 [facility] 300 mg 9-05 capsule by ity of capsule 00:00: mouth (three) Medical times Branch daily. methocarbam 2020-0 Yes [id number] 500mg Take 1 [facility] oL 9-05 tablet by ity of (ROBAXIN) 00:00: mouth [place] 500 mg 00 every 6 Medical tablet (six) Branch hours as needed for Pain (scale 7-10) (MUSCLE SPASM). gabapentin 2020-0 Yes [id number] 300mg Take 1 [facility] 300 mg 9-05 capsule by ity of capsule 00:00: mouth (three) Medical times Branch daily. methocarbam 2020-0 Yes [id number] 500mg Take 1 [facility] oL 9-05 tablet by ity of (ROBAXIN) 00:00: mouth [place] 500 mg 00 every 6 Medical tablet (six) Branch hours as needed for Pain (scale 7-10) (MUSCLE SPASM). gabapentin 2020-0 Yes [id number] 300mg Take 1 [facility] 300 mg 9-05 capsule by ity of capsule 00:00: mouth 3 (three) Medical times Branch daily. Cephalexin Cephalexin 2020-0 Yes [address] - [facility] for [facility] 13:[facility]: [facility] Patient [address] [place] [address] NaCl 0.9% 2020- No 1000mL at 999 [facility] vers (NS) IV 01-12 mL/hr, ity of infusion 23:45: 23:54 [place]venou [place] 1,000 mL 00 :00 s, ONCE, 1 Medic al dose, Fri [place] 01/12/21 at 1845, MOHIT NaCl 0.9% 2020- No 1000mL at 999 Uni vers (NS) IV 01-12 mL/hr, ity of infusion 23:45: 23:54 Intravenou [place] 1,000 mL 00 :00 s, ONCE, 1 Medic al dose, Fri [facility] 01/12/21 at 1845, [facility] morpHINE 2020- No 4mg 4 mg, Slow [place] injection 4 01-12 IV Push, ity of mg 23:15: 22:09 ONCE, 1 [place] 00 :00 dose, Fri Medical 01/12/21 at Branch 1815, STAT morpHINE 2020-0 2020- No 4mg 4 mg, Slow [place] injection 4 01-12 IV Push, ity of mg 23:15: 22:09 ONCE, 1 [place] 00 :00 dose, Fri Medical 01/12/21 at Branch 1815, STAT ondansetron 2020-2020- No 4mg 4 mg, Slow [facility] (ZOFRAN 01-12 IV Push, ity of (PF)) 22:45: 21:56 ONCE, 1 [place] injection 4 00 :00 dose, Fri Med ical mg 01/12/21 at Branch 1745, Routine ondansetron 2020- No 4mg 4 mg, Slow [facility] (ZOFRAN 01-12 IV Push, ity of (PF)) 22:45: 21:56 ONCE, 1 [place] injection 4 00 :00 dose, Fri Med ical mg 01/12/21 at Branch 1745, Routine iopamidol 2020-2020- No [id number] 120mL 120 mL, [facility] (ISOVUE 01-12 Intravenou ity o f 370-500 mL) 22:18: 22:18 s, ONCE, 1 [place] injection 00 :00 dose, Fri Medic al 120 mL 01/12/21 at Branch 1730, Routine iopamidol 2020- No [id number] 120mL 120 mL, [facility] (ISOVUE 8-12 01- Intravenou ity o f 370-500 mL) 22:18: 22:18 s, ONCE, 1 [place] injection 00 :00 dose, Fri Medic al 120 mL 01/12/21 at Branch 1730, Routine ondansetron 2020-0 Yes [id number] 4mg Take 1 [facility] (ZOFRAN 8-27 tablet by ity of ODT) 4 mg 00:00: mouth [place] disintegrat 00 every 8 Medic al ing tablet (eight) Branch hours as needed for Nausea and Vomiting (N/V). dicyclomine 2020-0 Yes [id number] 20mg Take 1 [facility] 20 mg 8-27 tablet by ity of tablet 00:00: mouth 3 [place] 00 (three) Medical times Branch daily as needed for Abdominal pain. ondansetron 2020-0 Yes [id number] 4mg Take 1 [facility] (ZOFRAN 8-27 tablet by ity of ODT) 4 mg 00:00: mouth [place] disintegrat 00 every 8 Medic al ing tablet (eight) Branch hours as needed for Nausea and Vomiting (N/V). dicyclomine 2020-0 Yes [id number] 20mg Take 1 [facility] 20 mg 8-27 tablet by ity of tablet 00:00: mouth 3 [place] 00 (three) Medical times Branch daily as needed for Abdominal pain. ondansetron 2020-0 Yes [id number] 4mg Take 1 [facility] (ZOFRAN 8-27 tablet by ity of ODT) 4 mg 00:00: mouth [place] disintegrat 00 every 8 Medic al ing tablet (eight) Branch hours as needed for Nausea and Vomiting (N/V). dicyclomine 2020-0 Yes [id number] 20mg Take 1 [facility] 20 mg 8-27 tablet by ity of tablet 00:00: mouth 3 [place] 00 (three) Medical times Branch daily as needed for Abdominal pain. ondansetron 2020-0 Yes [id number] 4mg Take 1 [facility] (ZOFRAN 8-27 tablet by ity of ODT) 4 mg 00:00: mouth [place] disintegrat 00 every 8 Medic al ing tablet (eight) Branch hours as needed for Nausea and Vomiting (N/V). dicyclomine 2020-0 Yes [id number] 20mg Take 1 [facility] 20 mg 8-27 tablet by ity of tablet 00:00: mouth 3 [place] 00 (three) Medical times Branch daily as needed for Abdominal pain. ondansetron 2021-0 Yes [id number] 4mg Take 1 [facility] (ZOFRAN 8-27 tablet by ity of ODT) 4 mg 00:00: mouth [place] disintegrat 00 every 8 Medic al ing tablet (eight) Branch hours as needed for Nausea and Vomiting (N/V). dicyclomine 1-0 Yes [id number] 20mg Take 1 [facility] 20 mg 8-27 tablet by ity of tablet 00:00: mouth 3 [place] 00 (three) Medical times Branch daily as needed for Abdominal pain. ondansetron 1-0 Yes [id number] 4mg Take 1 [facility] (ZOFRAN 8-27 tablet by ity of ODT) 4 mg 00:00: mouth [place] disintegrat 00 every 8 Medic al ing tablet (eight) Branch hours as needed for Nausea and Vomiting (N/V). dicyclomine 2020-0 Yes [id number] 20mg Take 1 [facility] 20 mg 8-27 tablet by ity of tablet 00:00: mouth 3 [place] 00 (three) Medical times Branch daily as needed for Abdominal pain. ondansetron 1-0 Yes [id number] 4mg Take 1 [facility] (ZOFRAN 8-27 tablet by ity of ODT) 4 mg 00:00: mouth [place] disintegrat 00 every 8 Medic al ing tablet (eight) Branch hours as needed for Nausea and Vomiting (N/V). dicyclomine 1-0 Yes [id number] 20mg Take 1 [facility] 20 mg 8-27 tablet by ity of tablet 00:00: mouth 3 [place] 00 (three) Medical times Branch daily as needed for Abdominal pain. ondansetron 2021-0 Yes [id number] 4mg Take 1 [facility] (ZOFRAN 8-27 tablet by ity of ODT) 4 mg 00:00: mouth [place] disintegrat 00 every 8 Medic al ing tablet (eight) Branch hours as needed for Nausea and Vomiting (N/V). dicyclomine 2021-0 Yes [id number] 20mg Take 1 [facility] 20 mg 8-27 tablet by ity of tablet 00:00: mouth 3 [place] 00 (three) Medical times Branch daily as needed for Abdominal pain. ondansetron 2021-0 Yes [id number] 4mg Take 1 [facility] (ZOFRAN 8-27 tablet by ity of ODT) 4 mg 00:00: mouth [place] disintegrat 00 every 8 Medic al ing tablet (eight) Branch hours as needed for Nausea and Vomiting (N/V). dicyclomine 2021-0 Yes [id number] 20mg Take 1 [facility] 20 mg 8-27 tablet by ity of tablet 00:00: mouth 3 [place] 00 (three) Medical times Branch daily as needed for Abdominal pain. ondansetron 2021-0 Yes [id number] 4mg Take 1 [facility] (ZOFRAN 8-27 tablet by ity of ODT) 4 mg 00:00: mouth [place] disintegrat 00 every 8 Medic al ing tablet (eight) Branch hours as needed for Nausea and Vomiting (N/V). dicyclomine 2021-0 Yes [id number] 20mg Take 1 [facility] 20 mg 8-27 tablet by ity of tablet 00:00: mouth 3 [place] 00 (three) Medical times Branch daily as needed for Abdominal pain. ondansetron 1-0 Yes [id number] 4mg Take 1 [facility] (ZOFRAN 8-27 tablet by ity of ODT) 4 mg 00:00: mouth [place] disintegrat 00 every 8 Medic al ing tablet (eight) Branch hours as needed for Nausea and Vomiting (N/V). dicyclomine 1-0 Yes [id number] 20mg Take 1 [facility] 20 mg 8-27 tablet by ity of tablet 00:00: mouth 3 [place] 00 (three) Medical times Branch daily as needed for Abdominal pain. ondansetron 2021-0 Yes [id number] 4mg Take 1 [facility] (ZOFRAN 8-27 tablet by ity of ODT) 4 mg 00:00: mouth [place] disintegrat 00 every 8 Medic al ing tablet (eight) Branch hours as needed for Nausea and Vomiting (N/V). dicyclomine 2021-0 Yes [id number] 20mg Take 1 [facility] 20 mg 8-27 tablet by ity of tablet 00:00: mouth 3 [place] 00 (three) Medical times Branch daily as needed for Abdominal pain. ondansetron 2021-0 Yes [id number] 4mg Take 1 [facility] (ZOFRAN 8-27 tablet by ity of ODT) 4 mg 00:00: mouth [place] disintegrat 00 every 8 Medic al ing tablet (eight) Branch hours as needed for Nausea and Vomiting (N/V). dicyclomine 2021-0 Yes [id number] 20mg Take 1 [facility] 20 mg 8-27 tablet by ity of tablet 00:00: mouth 3 [place] 00 (three) Medical times Branch daily as needed for Abdominal pain. ondansetron 2021-0 Yes [id number] 4mg Take 1 [facility] (ZOFRAN 8-27 tablet by ity of ODT) 4 mg 00:00: mouth [place] disintegrat 00 every 8 Medic al ing tablet (eight) Branch hours as needed for Nausea and Vomiting (N/V). dicyclomine 2021-0 Yes [id number] 20mg Take 1 [facility] 20 mg 8-27 tablet by ity of tablet 00:00: mouth 3 [place] 00 (three) Medical times Branch daily as needed for Abdominal pain. ondansetron 2021-0 Yes [id number] 4mg Take 1 [facility] (ZOFRAN 8-27 tablet by ity of ODT) 4 mg 00:00: mouth [place] disintegrat 00 every 8 Medic al ing tablet (eight) Branch hours as needed for Nausea and Vomiting (N/V). dicyclomine 2021-0 Yes [id number] 20mg Take 1 [facility] 20 mg 8-27 tablet by ity of tablet 00:00: mouth 3 [place] 00 (three) Medical times Branch daily as needed for Abdominal pain. ondansetron 2021-0 Yes [id number] 4mg Take 1 [facility] (ZOFRAN 8-27 tablet by ity of ODT) 4 mg 00:00: mouth [place] disintegrat 00 every 8 Medic al ing tablet (eight) Branch hours as needed for Nausea and Vomiting (N/V). dicyclomine 2021-0 Yes [id number] 20mg Take 1 [facility] 20 mg 8-27 tablet by ity of tablet 00:00: mouth 3 [place] 00 (three) Medical times Branch daily as needed for Abdominal pain. ondansetron 2021-0 Yes [id number] 4mg Take 1 [facility] (ZOFRAN 8-27 tablet by ity of ODT) 4 mg 00:00: mouth [place] disintegrat 00 every 8 Medic al ing tablet (eight) Branch hours as needed for Nausea and Vomiting (N/V). dicyclomine 2021-0 Yes [id number] 20mg Take 1 [facility] 20 mg 8-27 tablet by ity of tablet 00:00: mouth 3 [place] 00 (three) Medical times Branch daily as needed for Abdominal pain. ondansetron 2020-0 Yes [id number] 4mg Take 1 [facility] (ZOFRAN 8-27 tablet by ity of ODT) 4 mg 00:00: mouth [place] disintegrat 00 every 8 Medic al ing tablet (eight) Branch hours as needed for Nausea and Vomiting (N/V). dicyclomine 2020-0 Yes [id number] 20mg Take 1 [facility] 20 mg 8-27 tablet by ity of tablet 00:00: mouth 3 [place] 00 (three) Medical times Branch daily as needed for Abdominal pain. ondansetron 2020-0 Yes [id number] 4mg Take 1 [facility] (ZOFRAN 8-27 tablet by ity of ODT) 4 mg 00:00: mouth [place] disintegrat 00 every 8 Medic al ing tablet (eight) Branch hours as needed for Nausea and Vomiting (N/V). dicyclomine 2020-0 Yes [id number] 20mg Take 1 [facility] 20 mg 8-27 tablet by ity of tablet 00:00: mouth 3 [place] 00 (three) Medical times Branch daily as needed for Abdominal pain. ondansetron 2020-0 Yes [id number] 4mg Take 1 [facility] (ZOFRAN 8-27 tablet by ity of ODT) 4 mg 00:00: mouth [place] disintegrat 00 every 8 Medic al ing tablet (eight) Branch hours as needed for Nausea and Vomiting (N/V). dicyclomine 2020-0 Yes [id number] 20mg Take 1 [facility] 20 mg 8-27 tablet by ity of tablet 00:00: mouth 3 [place] 00 (three) Medical times Branch daily as needed for Abdominal pain. ondansetron 2020-0 Yes [id number] 4mg Take 1 [facility] (ZOFRAN 8-27 tablet by ity of ODT) 4 mg 00:00: mouth [place] disintegrat 00 every 8 Medic al ing tablet (eight) Branch hours as needed for Nausea and Vomiting (N/V). dicyclomine 2020-0 Yes [id number] 20mg Take 1 [facility] 20 mg 8-27 tablet by ity of tablet 00:00: mouth 3 [place] 00 (three) Medical times Branch daily as needed for Abdominal pain. ketorolac 2020-0 2021- No 30mg 30 mg, Unive rs (TORADOL) 01-0218 Slow IV ity of injection 20:15: 08:14 Push, [place] 30 mg 00 :00 ONCE, 1 Medical dose, [facility] 01/02/21 at 1515, Routine
prepared foods production team member approving Restricted medication : VANESSA GILBERT Saline No Notes: [place] Flush 0.9% 01-02 Same as: l 14:34: BD [place] Posiflush Sterile Sodium No 1,000 mL, Memori a Chloride 01-02 1000 l 0.9% 14:34: ml/hr, [place] (Bolus) IV 00 Infuse Over: 1 hr, Route: IV, 1,000, Drug form: INJ, ONCE, Priority: STAT, Dosing Weight 127.273 kg, Start date: 01/02/21 9:34:00 CDT, Stop date: 01/02/21 9:34:00 CDT, 0 Ketorolac 2020-0 No 4 days Memor ia 01-02 l 14:34: MEDICATION [place] 00 WASTE Product Size: 30 mg Product Wasted: ___ mg Ondansetron No Notes: Gene sandy 01-02 (Same as: l 14:34: Zofran) [place] 00 MEDICATION WASTE Product Size: 4 mg Product Wasted: ___ mg Saline No Notes: [facility] Flush 0.9% 01-02 Same as: l 14:34: BD [place] Posiflush Sterile Sodium No 1,000 mL, Memori a Chloride 01-02 1000 l 0.9% 14:34: ml/hr, [place] (Bolus) IV 00 Infuse Over: 1 hr, Route: IV, 1,000, Drug form: INJ, ONCE, Priority: STAT, Dosing Weight 127.273 kg, Start date: 01/02/21 9:34:00 CDT, Stop date: 01/02/21 9:34:00 CDT, 0 Ketorolac 2020-0 No 4 days Memor ia 01-02 l 14:34: MEDICATION [place] 00 WASTE Product Size: 30 mg Product Wasted: ___ mg Ondansetron No Notes: Gene sandy 8-17 (Same as: l 14:34: Zofran) [place] 00 MEDICATION WASTE Product Size: 4 mg Product Wasted: ___ mg HYDROcodone 2020- No 1{tbl} 1 tablet, [facility] -acetaminop 10-17 Oral, ity of hen (NORCO) 03:45: 02:38 ONCE, 1 [place] 10-325 mg 00 :00 dose, [facility] al tablet 1 10/16/20 at [facility] h tablet 2245, Routine NaCl 0.9% 2020- No 500mL at [address] [place] [address] ers (NS) bolus 10-17 mL/hr, 500 it y of infusion 02:45: 02:53 mL, IV [place] 500 mL 00 :00 Infusion, Medical ONCE, 1 Branch dose, [facility] 10/16/20 at 2145, STAT diphenhydrA 2020- No 25mg 25 mg, Uni vers MINE 10-17 Slow IV ity of (BENADRYL) 02:45: 02:05 Push, [place] injection 00 :00 ONCE, 1 Medical 25 mg dose, [facility] 10/16/20 at 2145, STAT metoclopram 2020- No 10mg 10 mg, Uni vers magdalena HCl 10-17 Slow IV ity of (REGLAN) 02:45: 02:05 Push, [place] injection 00 :00 ONCE, 1 Medical 10 mg dose, [facility] 10/16/20 at 2145, MOHIT ketorolac 2020- No 30[facility] 30 [facility] 10-17 Slow IV ity of injection 02:45: 02:05 Push, [place] 30 mg 00 :00 ONCE, 1 Medical dose, [facility] 10/16/20 at 2145, Routine
prepared foods production team member approving Restricted medication : MICHAEL JENKINS S ATENOLOL Yes Take by [facility] s ORAL 10-17 mouth. ity of 01:14: [place] [address] [facility] acetaminoph Yes Take by Uni vers en with 10-17 mouth. ity of codeine 01:14: [place] (TYLENOL-CO 30 Medical DEINE #3 Branch ORAL) clonazePAM 2021-0 Yes .5mg Take 0.5 Uni vers 0.5 mg 6-01 mg by ity of tablet 01:14: mouth 2 [place] 30 (two) Medical times Branch daily. ATENOLOL 2021-0 Yes Take by Univer s ORAL 6- mouth. ity of 01:14: [place] [address] Medical Branch acetaminoph 2020-0 Yes Take by Uni vers en with 10-17 mouth. ity of codeine 01:14: [place] (TYLENOL-CO 30 Medical DEINE #3 Branch ORAL) clonazePAM 1-0 Yes .5mg Take 0.5 Uni vers 0.5 mg 6-01 mg by ity of tablet 01:14: mouth 2 [place] 30 (two) Medical times [place] daily. ATENOLOL 2021-0 Yes Take by Univer s ORAL 6- mouth. ity of 01:14: [place] [address] Medical Branch acetaminoph 2020-0 Yes Take by Uni vers en with 10-17 mouth. ity of codeine 01:14: [place] (TYLENOL-CO 30 Medical DEINE #3 Branch ORAL) clonazePAM 1-0 Yes .5mg Take 0.5 Uni vers 0.5 mg 6-01 mg by ity of tablet 01:14: mouth 2 [place] 30 (two) Medical times [place] daily. ATENOLOL 2020-0 Yes Take by Univer s ORAL 6- mouth. ity of 01:14: [place] [address] Medical Branch acetaminoph 2020-0 Yes Take by Uni vers en with 10-17 mouth. ity of codeine 01:14: [place] (TYLENOL-CO 30 Medical DEINE #3 Branch ORAL) clonazePAM 2021-0 Yes .5mg Take 0.5 Uni vers 0.5 mg 6-01 mg by ity of tablet 01:14: mouth 2 [place] 30 (two) Medical times [place] daily. ATENOLOL 2021-0 Yes Take by Univer s ORAL 6- mouth. ity of 01:14: [place] [address] Medical Branch acetaminoph 2021-0 Yes Take by Uni vers en with 6- mouth. ity of codeine 01:14: [place] (TYLENOL-CO 30 Medical DEINE #3 Branch ORAL) clonazePAM 2021-0 Yes .5mg Take 0.5 Uni vers 0.5 mg 6-01 mg by ity of tablet 01:14: mouth 2 [place] 30 (two) Medical times Branch daily. ATENOLOL 2020-0 Yes Take by Univer s ORAL 6-01 mouth. ity of 01:14: [place] [address] Medical Branch acetaminoph 2020-0 Yes Take by Uni vers en with 6-01 mouth. ity of codeine 01:14: [place] (TYLENOL-CO 30 Medical DEINE #3 Branch ORAL) clonazePAM 2020-0 Yes .5mg Take 0.5 Uni vers 0.5 mg 6-01 mg by ity of tablet 01:14: mouth 2 [place] 30 (two) Medical times Branch daily. ATENOLOL 2020-0 Yes Take by Univer s ORAL 5-31 mouth. ity of 20:14: [place] [address] Medical Branch acetaminoph 2020-0 Yes Take by Uni vers en with 5-31 mouth. ity of codeine 20:14: [place] (TYLENOL-CO 30 Medical DEINE #3 Branch ORAL) clonazePAM 2020-0 Yes .5mg Take 0.5 Uni vers 0.5 mg 5-31 mg by ity of tablet 20:14: mouth 2 [place] 30 (two) Medical times [place] daily. ATENOLOL 2020-0 Yes Take by Univer s ORAL 5-31 mouth. ity of 20:14: [place] [address] Medical Branch acetaminoph 2020-0 Yes Take by Uni vers en with 5-31 mouth. ity of codeine 20:14: [place] (TYLENOL-CO 30 Medical DEINE #3 Branch ORAL) clonazePAM 2020-0 Yes .5mg Take 0.5 Uni vers 0.5 mg 5-31 mg by ity of tablet 20:14: mouth 2 [place] 30 (two) Medical times Branch daily. ATENOLOL 2020-0 Yes Take by Univer s ORAL 5-31 mouth. ity of 20:14: [place] [address] Medical Branch acetaminoph 2020-0 Yes Take by Uni vers en with 5-31 mouth. ity of codeine 20:14: [place] (TYLENOL-CO 30 Medical DEINE #3 Branch ORAL) clonazePAM 2021-0 Yes .5mg Take 0.5 Uni vers 0.5 mg 5-31 mg by ity of tablet 20:14: mouth 2 [place] 30 (two) Medical times Branch daily. ATENOLOL 2021-0 Yes Take by Univer s ORAL 5-31 mouth. ity of 20:14: [place] 30 Medical Branch acetaminoph 2021-0 Yes Take by Uni vers en with 5-31 mouth. ity of codeine 20:14: [place] (TYLENOL-CO 30 Medical DEINE #3 Branch ORAL) clonazePAM 2021-0 Yes .5mg Take 0.5 Uni vers 0.5 mg 5-31 mg by ity of tablet 20:14: mouth 2 [place] 30 (two) Medical times Branch daily. ATENOLOL 2021-0 Yes Take by Univer s ORAL 5-31 mouth. ity of 20:14: [place] 30 Medical Branch acetaminoph 2021-0 Yes Take by Uni vers en with 5-31 mouth. ity of codeine 20:14: [place] (TYLENOL-CO 30 Medical DEINE #3 Branch ORAL) clonazePAM 2020-0 Yes .5mg Take 0.5 Uni vers 0.5 mg 5-31 mg by ity of tablet 20:14: mouth 2 [place] 30 (two) Medical times Branch daily. ATENOLOL 1-0 Yes Take by Univer s ORAL 5-31 mouth. ity of 20:14: [place] 30 Medical Branch acetaminoph 1-0 Yes Take by Uni vers en with 5-31 mouth. ity of codeine 20:14: [place] (TYLENOL-CO 30 Medical DEINE #3 Branch ORAL) clonazePAM 2020-0 Yes .5mg Take 0.5 Uni vers 0.5 mg 5-31 mg by ity of tablet 20:14: mouth 2 [place] 30 (two) Medical times Branch daily. butalbital- 2021-0 Yes [id number] 1{tbl} Take 1 [facility] acetaminoph 5-31 tablet by ity of en-caff 00:00: mouth [place] 50-325-40 00 every 6 Medical mg tablet (six) Branch hours as needed (Headache) . butalbital- 2021-0 Yes [id number] 1{tbl} Take 1 [facility] acetaminoph 5-31 tablet by ity of en-caff 00:00: mouth [place] 50-325-40 00 every 6 Medical mg tablet (six) Branch hours as needed (Headache) . butalbital- 2021-0 Yes [id number] 1{tbl} Take 1 [facility] acetaminoph 5-31 tablet by ity of en-caff 00:00: mouth [place] 50-325-40 00 every 6 Medical mg tablet (six) Branch hours as needed (Headache) . butalbital- Yes [id number] 1{tbl} Take 1 [facility] acetaminoph 5-31 tablet by ity of en-caff 00:00: mouth [place] 50-325-40 00 every 6 Medical mg tablet (six) Branch hours as needed (Headache) . butalbital- Yes [id number] 1{tbl} Take 1 [facility] acetaminoph 5-31 tablet by ity of en-caff 00:00: mouth [place] 50-325-40 00 every 6 Medical mg tablet (six) Branch hours as needed (Headache) . butalbital- Yes [id number] 1{tbl} Take 1 [facility] acetaminoph 5-31 tablet by ity of en-caff 00:00: mouth [place] 50-325-40 00 every 6 Medical mg tablet (six) Branch hours as needed (Headache) . butalbital- Yes [id number] 1{tbl} Take 1 [facility] acetaminoph 5-31 tablet by ity of en-caff 00:00: mouth [place] 50-325-40 00 every 6 Medical mg tablet (six) Branch hours as needed (Headache) . butalbital- Yes [id number] 1{tbl} Take 1 [facility] acetaminoph 5-31 tablet by ity of en-caff 00:00: mouth [place] 50-325-40 00 every 6 Medical mg tablet (six) Branch hours as needed (Headache) . butalbital- Yes [id number] 1{tbl} Take 1 [facility] acetaminoph 5-31 tablet by ity of en-caff 00:00: mouth [place] 50-325-40 00 every 6 Medical mg tablet (six) Branch hours as needed (Headache) . butalbital- Yes [id number] 1{tbl} Take 1 [facility] acetaminoph 5-31 tablet by ity of en-caff 00:00: mouth [place] 50-325-40 00 every 6 Medical mg tablet (six) Branch hours as needed (Headache) . butalbital- Yes [id number] 1{tbl} Take 1 [facility] acetaminoph 5-31 tablet by ity of en-caff 00:00: mouth [place] 50-325-40 00 every 6 Medical mg tablet (six) Branch hours as needed (Headache) . butalbital- Yes [id number] 1{tbl} Take 1 [facility] acetaminoph 5-31 tablet by ity of en-caff 00:00: mouth [place] 50-325-40 00 every 6 Medical mg tablet (six) Branch hours as needed (Headache) . butalbital- Yes [id number] 1{tbl} Take 1 [facility] acetaminoph 5-31 tablet by ity of en-caff 00:00: mouth [place] 50-325-40 00 every 6 Medical mg tablet (six) Branch hours as needed (Headache) . butalbital- Yes [id number] 1{tbl} Take 1 [facility] acetaminoph 5-31 tablet by ity of en-caff 00:00: mouth [place] 50-325-40 00 every 6 Medical mg tablet (six) Branch hours as needed (Headache) . butalbital- Yes [id number] 1{tbl} Take 1 [facility] acetaminoph 5-31 tablet by ity of en-caff 00:00: mouth [place] 50-325-40 00 every 6 Medical mg tablet (six) Branch hours as needed (Headache) . butalbital- Yes [id number] 1{tbl} Take 1 [facility] acetaminoph 5-31 tablet by ity of en-caff 00:00: mouth [place] 50-325-40 00 every 6 Medical mg tablet (six) Branch hours as needed (Headache) . butalbital- Yes [id number] 1{tbl} Take 1 [facility] acetaminoph 5-31 tablet by ity of en-caff 00:00: mouth [place] 50-325-40 00 every 6 Medical mg tablet (six) Branch hours as needed (Headache) . butalbital- Yes [id number] 1{tbl} Take 1 [facility] acetaminoph 5-31 tablet by ity of en-caff 00:00: mouth [place] 50-325-40 00 every 6 Medical mg tablet (six) Branch hours as needed (Headache) . butalbital- Yes [id number] 1{tbl} Take 1 [facility] acetaminoph 5-31 tablet by ity of en-caff 00:00: mouth [place] 50-325-40 00 every 6 Medical mg tablet (six) Branch hours as needed (Headache) . butalbital- Yes [id number] 1{tbl} Take 1 [facility] acetaminoph 5-31 tablet by ity of en-caff 00:00: mouth [place] 50-325-40 00 every 6 Medical mg tablet (six) Branch hours as needed (Headache) . butalbital- Yes [id number] 1{tbl} Take 1 [facility] acetaminoph 5-31 tablet by ity of en-caff 00:00: mouth [place] 50-325-40 00 every 6 Medical mg tablet (six) Branch hours as needed (Headache) . butalbital- Yes [id number] 1{tbl} Take 1 [facility] acetaminoph 5-31 tablet by ity of en-caff 00:00: mouth [place] 50-325-40 00 every 6 Medical mg tablet (six) Branch hours as needed (Headache) . butalbital- Yes [id number] 1{tbl} Take 1 [facility] acetaminoph 5-31 tablet by ity of en-caff 00:00: mouth [place] 50-325-40 00 every 6 Medical mg tablet (six) Branch hours as needed (Headache) . butalbital- Yes 1{tbl} Take 1 [facility] acet[facility] 5-[address] [facility] l 50-325-40 mg per tablet butalbital- 2020- Yes 1{tbl} Take 1 [facility] acetaminoph 5-[address] en-caff 00:00: [facility] ([facility]) 00 l 50-325-40 mg per tablet butalbital- 2020- Yes 1{tbl} Take 1 [facility] acetaminoph 5-[address] en-caff 00:00: mouth. [facility] ([facility]) 00 l 50-325-40 mg per tablet butalbital- Yes 1{tbl} Take 1 [facility] acetaminoph 5-[address] en-caff 00:00: mouth. [facility] ([facility]) 00 l 50-325-40 mg per tablet butalbital- Yes 1{tbl} Take 1 [facility] acetaminoph 5-[address] en-caff 00:00: mouth. [facility] ([facility]) 00 l 50-325-40 mg per tablet NaCl 0.9% 2020- No 500mL at 999 Univ ers (NS) bolus 10-14 05-29 mL/hr, 500 it y of infusion 06:30: 06:34 mL, IV [place] 500 mL 00 :00 Infusion, Medical ONCE, 1 Branch dose, 10/14/20 at 0130, STAT butorphanol 2020- No 2mg 2 mg, IV U nivers (STADOL) 10-14 Push, ity of injection 2 05:17: 05:29 ONCE, 1 [place] mg 00 :[place] dose, Sat Medical 10/14/20 at Branch 0030, MOHIT quetiapine 2020- No 100mg Take 100 U nivers fumarate 10-14- mg by ity of (SEROQUEL 05:15: 00:00 mouth [place] ORAL) 58 :00 daily. Medical Branch lurasidone 2020- No 80mg Take 80 mg Univers HCl (LATUDA 10-14 by mouth. it y of ORAL) 05:15: 00:00 [place] 31 :00 Medical Branch fluoxetine 0 2020- No 60mg Take 60 mg Univers HCl (PROZAC 10-14- by mouth ity of ORAL) 05:14: 00:00 daily. [place] 42 :00 Medical Branch acetaminoph Yes Take by Uni vers en with 10-14 mouth. ity of codeine 05:13: [place] (TYLENOL-CO 49 Medical DEINE #3 Branch ORAL) clonazePAM Yes .5mg Take 0.5 Uni vers 0.5 mg 5-29 mg by ity of tablet 05:13: mouth 2 [place] 49 (two) Medical times Branch daily. diphenhydrA 2020- No 25mg 25 mg, Uni vers MINE 10-14 Slow IV ity of (BENADRYL) 04:00: 04:22 Push, [place] injection 00 :00 ONCE, 1 Medical 25 mg dose, Fri Branch 10/13/20 at 2300, STAT NaCl 0.9% 2020- No 500mL at 999 Univ ers (NS) bolus 10-14 mL/hr, 500 it y of infusion 04:00: 05:26 mL, IV [place] 500 mL 00 :00 Infusion, Medical ONCE, 1 Branch dose, 10/13/20 at 2300, STAT metoclopram 2020- No 10mg 10 mg, Uni vers magdalena HCl 10-14 Slow IV ity of (REGLAN) 04:00: 04:22 Push, [place] injection 00 :00 ONCE, 1 Medical 10 mg dose, Fri Branch 10/13/20 at 2300, MOHIT Flexeril 10 0 Yes 10 mg, PO, Memoria mg oral 5-26 TID, PRN l tablet 07:36: Muscle [place] 00 Spasm, X 10 day, # 30 tab, 0 Refill(s) Flexeril 10 0 Yes 10 mg, PO, Memoria mg oral 5-26 TID, PRN l tablet 07:36: Muscle [place] 00 Spasm, X 10 day, # 30 tab, 0 Refill(s) Flexeril 2020-0 No 10 mg, Memoria -26 Route: PO, l 07:35: ONCE, Dosing Weight 122.727, kg, Priority: STAT, Start date: 10/11/20 2:35:00 CDT, Stop date: 10/11/20 2:35:00 CDT Flexeril 2020-0 No 10 mg, Memoria 26 Route: PO, l 07:35: ONCE, Dosing Weight 122.727, kg, Priority: STAT, Start date: 10/11/20 2:35:00 CDT, Stop date: 10/11/20 2:35:00 CDT ibuprofen 2020-0 Yes 600 mg = 1 Me moria 600 mg oral 5-26 tab, PO, l tablet 07:15: Q8H, PRN [place] pain, X 10 day, # 30 tab, 0 Refill(s) ibuprofen Yes 600 mg = 1 Me moria 600 mg oral - tab, PO, l tablet 07:15: Q8H, PRN pain, X 10 day, # 30 tab, 0 Refill(s) Compazine No 10 mg, Memori a 10-11 Route: IM, l 07:11: Drug form: [place] INJ, ONCE, Dosing Weight 122.727, kg, Priority: STAT, Start date: 10/11/20 2:11:00 CDT, Stop date: 10/11/20 2:11:00 CDT Ketorolac 0 No 60 mg, Memori a 10-11 Route: IM, l 07:11: Drug form: [place] INJ, ONCE, Dosing Weight 122.727, kg, Priority: STAT, Start date: 10/11/20 2:11:00 CDT, Stop date: 10/11/20 2:11:00 CDT Compazine No 10 mg, Memori a 10-11 Route: IM, l 07:11: Drug form: [place] INJ, ONCE, Dosing Weight 122.727, kg, Priority: STAT, Start date: 10/11/20 2:11:00 CDT, Stop date: 10/11/20 2:11:00 CDT Ketorolac 2020-0 No 60 mg, Memori a 10-11 Route: IM, l 07:11: Drug form: [place] INJ, ONCE, Dosing Weight 122.727, kg, Priority: STAT, Start date: 10/11/20 2:11:00 CDT, Stop date: 10/11/20 2:11:00 CDT dexamethaso No 10mg 10 mg, IV Univers ne 10-10-25 Push, ity of (DECADRON 07:30: 07:07 ONCE, 1 [place]OS[place] 00 :00 dose, Tue Medi adelina injection 10/10/20 at Bran ch 10 mg 0230, STAT diphenhydrA No 25mg 25 mg, Uni vers MINE 10-10-25 Slow IV ity of (BENADRYL) 04:45: 05:45 Push, [place] injection 00 :00 ONCE, 1 Medical 25 mg dose, Mon Branch 10/09/20 at 2345, STAT metoclopram 2020- No 10mg 10 mg, Uni vers magdalena HCl 5-25 05-25 Slow IV ity of (REGLAN) 04:45: 05:45 Push, [place] injection 00 :00 ONCE, 1 Medical 10 mg dose, Mon Branch 10/09/20 at 2345, MOHIT ketorolac 2020- No 30mg 30 mg, Unive rs (TORADOL) 5-25 05-25 Slow IV ity of injection 04:45: 05:45 Push, [place] 30 mg 00 :00 ONCE, 1 Medical dose, Mon Branch 10/09/20 at 2345, Routine
prepared foods production team member approving Restricted medication : VANESSA GILBERT G NaCl 0.9% 2020- No 1000mL at 999 Uni vers (NS) bolus 5-25 05-25 mL/hr, ity of infusion 03:45: 07:00 1,000 mL, [place] as 1,000 mL 00 :00 IV Medical Infusion, Branch ONCE, 1 dose, [facility] 10/09/20 at 2245, MOHIT butalbital- Yes [id number] 1{tbl} Take 1 [facility] acetaminoph 5-25 tablet by ity of en-caff 00:00: mouth [place] 50-325-40 00 every 4 Medical mg tablet (four) Branch hours as needed for Pain (scale 4-6) or Pain (scale 7-10). butalbital- Yes [id number] 1{tbl} Take 1 [facility] acetaminoph 5-25 tablet by ity of en-caff 00:00: mouth [place] 50-325-40 00 every 4 Medical mg tablet (four) Branch hours as needed for Pain (scale 4-6) or Pain (scale 7-10). butalbital- 2020- No [id number] 1{tbl} Take 1 [facility] acetaminoph 5-25 05-31 tablet by it y of en-caff 00:00: 00:00 mouth [place] 50-325-40 00 :00 every 4 Medical mg tablet (four) Branch hours as needed for Pain (scale 4-6) or Pain (scale 7-10). Ketorolac 2021-0 No 60 mg, Memori a 5-24 Route: IM, l 06:05: Drug form: [place] 00 INJ, ONCE, Dosing Weight 133.636, kg, Priority: STAT, Start date: 10/09/20 1:05:00 CDT, Stop date: 10/09/20 1:05:00 CDT Ketorolac 2021-0 No 60 mg, Memori a 5-24 Route: IM, l 06:05: Drug form: [place] 00 INJ, ONCE, Dosing Weight 133.636, kg, Priority: STAT, Start date: 10/09/20 1:05:00 CDT, Stop date: 10/09/20 1:05:00 CDT Zofran ODT 2021-0 No 4 mg, Memori a 5-24 Route: PO, l 06:04: Drug form: [place] 00 TABDIS, ONCE, Dosing Weight 133.636, kg, Priority: STAT, Start date: 10/09/20 1:04:00 CDT, Stop date: 10/09/20 1:04:00 CDT Zofran ODT 2021-0 No 4 mg, Memori a 5-24 Route: PO, l 06:04: Drug form: [place] 00 TABDIS, ONCE, Dosing Weight 133.636, kg, Priority: STAT, Start date: 10/09/20 1:04:00 CDT, Stop date: 10/09/20 1:04:00 CDT butorphanol 1-0 202- No 1mg 1 mg, Univ ers (STADOL) 10-09 Intramuscu ity of injection 1 04:15: 03:05 lar, ONCE [place] mg 00 :00 NOW, 1 Medical dose, Sun Branch 10/08/20 at 2315, Routine ketorolac 2021-0 Yes [id number] 10mg Take 1 U nivers 10 mg 5-23 tablet by ity of tablet 00:00: mouth [place] 00 every 6 Medical (six) Branch hours as needed for Pain (scale 7-10). ketorolac 2021-0 Yes [id number] 10mg Take 1 U nivers 10 mg 5-23 tablet by ity of tablet 00:00: mouth [place] 00 every 6 Medical (six) Branch hours as needed for Pain (scale 7-10). ketorolac 2020-0 2021- No [id number] 10mg Take 1 Univers 10 mg 10-08 tablet by ity of tablet 00:00: 00:00 mouth [place] 00 :00 every 6 Medical (six) Branch hours as needed for Pain (scale 7-10). Sodium 2020-0 No 1,000 mL, Memori a Chloride 5-22 Infuse l 0.9% 08:15: Over: 1 [place] (Bolus) IV 00 hr, Route: IV, ONCE, Priority: STAT, Dosing Weight 133.636 kg, Start date: 10/07/20 3:15:00 CDT, Stop date: 10/07/20 3:15:00 CDT Sodium 2020-0 No 1,000 mL, Memori a Chloride -22 Infuse l 0.9% 08:15: Over: 1 [place] (Bolus) IV 00 hr, Route: IV, ONCE, Priority: STAT, Dosing Weight 133.636 kg, Start date: 10/07/20 3:15:00 CDT, Stop date: 10/07/20 3:15:00 CDT Reglan 2020-0 No 10 mg, Memoria 10-07 Route: l 08:14: IVP, Drug form: INJ, ONCE, Dosing Weight 133.636, kg, Priority: STAT, Start date: 10/07/20 3:14:00 CDT, Stop date: 10/07/20 3:14:00 CDT Benadryl 2020-0 No 25 mg, Memoria 5 Route: l 08:14: IVP, ONCE, Dosing Weight 133.636, kg, Priority: STAT, Start date: 10/07/20 3:14:00 CDT, Stop date: 10/07/20 3:14:00 CDT Reglan 2020-0 No 10 mg, Memoria 22 Route: l 08:14: IVP, Drug form: INJ, ONCE, Dosing Weight 133.636, kg, Priority: STAT, Start date: 10/07/20 3:14:00 CDT, Stop date: 10/07/20 3:14:00 CDT Benadryl No 25 mg, [facility]oria 10-07 Route: l 08:14: IVP, ONCE, [place] 00 Dosing Weight 133.636, kg, Priority: STAT, Start date: 10/07/20 3:14:00 CDT, Stop date: 10/07/20 3:14:00 CDT butorphanol 2020- No 1mg 1 mg, IV U nivers (STADOL) 10-07 Push, ity of injection 1 04:45: 03:44 ONCE, 1 [place] mg 00 :00 dose, Fri Medical 10/06/20 at Branch 2345, Routine ketorolac 2020- No 30mg 30 mg, Unive rs (TORADOL) 10-07 Slow IV ity of injection 03:00: 02:31 Push, [place] 30 mg 00 :00 ONCE, 1 Medical dose, Fri Branch 10/06/20 at 2200, MOHIT
Fa culty member approving Restricted medication : JUDY TYLER diphenhydrA 2020- No 25mg 25 mg, Uni vers MINE 10-07 Slow IV ity of (BENADRYL) 03:00: 02:31 Push, [place] injection 00 :00 ONCE, 1 Medical 25 mg dose, Fri Branch 10/06/20 at 2200, STAT metoclopram 2020- No 10mg 10 mg, Uni vers magdalena HCl 10-07 Slow IV ity of (REGLAN) 03:00: 02:31 Push, [place] injection 00 :00 ONCE, 1 Medical 10 mg dose, Fri Branch 10/06/20 at 2200, MOHIT NaCl 0.9% 2020- No 1000mL at 999 Uni vers (NS) IV 10-07 mL/hr, IV ity of infusion 03:00: 03:00 Infusion, Biju as 1,000 mL 00 :00 ONCE, 1 Medical dose, Fri Branch 10/06/20 at 2200, Routine butalbital- Yes [id number] 1{tbl} Take 1 [facility] acetaminoph 5-21 tablet by ity of en-caff 00:00: mouth [place] 50-325-40 00 every 6 Medical mg tablet (six) Branch hours as needed (Headache) . butalbital- 2020- Yes [id number] 1{tbl} Take 1 [facility] acetaminoph 5-21 tablet by ity of en-caff 00:00: mouth [place] 50-325-40 00 every 6 Medical mg tablet (six) Branch hours as needed (Headache) . butalbital- 2020- No [id number] 1{tbl} Take 1 [facility] acetaminoph 5-21 05-25 tablet by it y of en-caff 00:00: 00:00 mouth [place] 50-325-40 00 :00 every 6 Medical mg tablet (six) Branch hours as needed (Headache) . cefdinir Yes 300 mg = 1 Mem oria 300 MG Oral 4-29 cap, PO, l Capsule 08:29: BID, X 7 Maikol n day, # 14 cap, 0 Refill(s), Pharmacy: [facility], 160.02, cm, 09/13/20 22:58:00 CDT, Height, 132.727, kg, 09/13/20 22:58:00 CDT, Weight cefdinir Yes 300 mg = 1 Mem oria 300 MG Oral 4-29 cap, PO, l Capsule 08:29: BID, X 7 Maikol n day, # 14 cap, 0 Refill(s), Pharmacy: [facility], 160.02, cm, 09/13/20 22:58:00 CDT, Height, 132.727, kg, 09/13/20 22:58:00 CDT, Weight Dicyclomine Yes 20 mg = 1 M emoria Hydrochlori 4-29 tab, PO, l de 20 MG 05:45: QID-Before Her calderon Oral Tablet 00 Meals, # [Bentyl] 20 tab, 0 Refill(s), Pharmacy: [facility], 160.02, cm, 09/13/20 22:58:00 CDT, Height, 132.727, kg, 09/13/20 22:58:00 CDT, Weight Dicyclomine Yes 20 mg = 1 M emoria Hydrochlori 4-29 tab, PO, l de 20 MG 05:45: QID-Before Her calderon Oral Tablet 00 Meals, # [Bentyl] 20 tab, 0 Refill(s), Pharmacy: [facility], 160.02, cm, 09/13/20 22:58:00 CDT, Height, 132.727, kg, 09/13/20 22:58:00 CDT, Weight Morphine No Notes: Memoria 4-29 (Same l 05:44: as:MORPhin [place] 00 e Sulfate) Zofran No Notes: Memoria 4-29 (Same as: l 05:44: Zofran) Myron 00 MEDICATION WASTE Product Size: 4 mg Product Wasted: ___ mg Morphine No Notes: Memoria 4-29 (Same l 05:44: as:MORPhin [place] 00 e Sulfate) Zofran No Notes: Memoria 4-29 (Same as: l 05:44: Zofran) [place] 00 MEDICATION WASTE Product Size: 4 mg Product Wasted: ___ mg Protonix No Notes: For Mem oria 4-29 IV push l 05:14: reconstitu Myron 00 te with 10 ml 0.9% sodium chloride and push over 2 minutes. (Same as: Protonix) Protonix No Notes: For Mem oria 4-29 IV push l 05:14: reconstitu [place] 00 te with 10 ml 0.9% sodium chloride and push over 2 minutes. (Same as: Protonix) NS (Bolus) No 1,000 mL, Me moria IV 4-29 1,000 l 05:13: ml/hr, [place] 00 Infuse Over: 1 hr, Route: IV, 1,000, Drug form: INJ, ONCE, Priority: STAT, Dosing Weight 132.727 kg, Start date: 09/14/20 0:13:00 CDT, Stop date: 09/14/20 0:13:00 CDT, 0 NS (Bolus) No 1,000 mL, Me moria IV 4-29 1,000 l 05:13: ml/hr, Myron 00 Infuse Over: 1 hr, Route: IV, 1,000, Drug form: INJ, ONCE, Priority: STAT, Dosing Weight 132.727 kg, Start date: 09/14/20 0:13:00 CDT, Stop date: 09/14/20 0:13:00 CDT, 0 dicyclomine 2020-0 Yes 20mg Take [address] [facility] (BENTYL) 20 4-29 by mouth. [facility] es mg tablet 00:00: Medical 00 [place] dicyclomine 2020-0 Yes 20mg Take [address] [facility] (BENTYL) 20 4-29 by mouth. [facility] es mg tablet 00:00: Medical 00 [place] dicyclomine 2020-0 Yes 20mg Take [address] [facility] (BENTYL) 20 4-29 by mouth. [facility] es mg tablet 00:00: Medical 00 [place] dicyclomine 2020-0 Yes 20mg Take [address] [facility] (BENTYL) 20 4-29 by mouth. [facility] es mg tablet 00:00: Medical 00 [place] ibuprofen 2020-1 Yes 600 mg = 1 Me moria 600 mg oral 2-15 tab, PO, l tablet 21:57: Q6H, PRN [place] 00 Pain, take with food, X 7 day, # 21 tab, 0 Refill(s) Cyclobenzap 2019- Yes 10 mg, PO, Memoria rine 2-15 TID, PRN l hydrochlori 21:57: Muscle Herm vanessa de 10 MG 00 Spasm, X 5 Oral Tablet day, # 15 [Flexeril] tab, 0 Refill(s) ibuprofen 2019- Yes 600 mg = 1 Me moria 600 mg oral 2-15 tab, PO, l tablet 21:57: Q6H, PRN [place] 00 Pain, take with food, X 7 day, # 21 tab, 0 Refill(s) Cyclobenzap 2019- Yes 10 mg, PO, Memoria rine 2-15 TID, PRN l hydrochlori 21:57: Muscle Herm vanessa de 10 MG 00 Spasm, X 5 Oral Tablet day, # 15 [Flexeril] tab, 0 Refill(s) Ketorolac 2019-1 No 15 mg, Memori a 2-15 Route: IM, l 19:49: ONCE, [place] 00 Dosing Weight 119.545, kg, Start date: 05/02/20 13:49:00 SOLE RUFFER, Stop date: 05/02/20 13:49:00 SOLE RUFFER Ketorolac 2020-1 No 15 mg, Memori a 2-15 Route: IM, l 19:49: ONCE, Dosing Weight 119.545, kg, Start date: 05/02/20 13:49:00 SOLE RUFFER, Stop date: 05/02/20 13:49:00 SOLE RUFFER cyclobenzap 2020-1 No 10 mg, Gene sandy rine 2-15 Route: PO, l 19:37: Drug form: [place]ron TAB, ONCE, Dosing Weight 119.545, kg, Priority: STAT, Start date: 05/02/20 13:37:00 SOLE RUFFER, Stop date: 05/02/20 13:37:00 SOLE RUFFER cyclobenzap 2020-1 No 10 mg, Gene sandy rine 2-15 Route: PO, l 19:37: Drug form: [place] 00 TAB, ONCE, Dosing Weight 119.545, kg, Priority: STAT, Start date: 05/02/20 13:37:00 SOLE RUFFER, Stop date: 05/02/20 13:37:00 SOLE RUFFER Ondansetron 2020-1 No 8 mg, [place] 2-15 Route: PO, l 19:03: Drug form: [place] 00 TABDIS, ONCE, Dosing Weight 119.545, kg, Priority: STAT, Start date: 05/02/20 13:03:00 SOLE RUFFER, Stop date: 05/02/20 13:03:00 SOLE RUFFER Acetaminoph 2020-1 No 650 mg, Mem oria en 2-15 Route: PO, l 19:03: Drug form: [place] TAB, ONCE, Dosing Weight 119.545, kg, Priority: STAT, Start date: 05/02/20 13:03:00 SOLE RUFFER, Stop date: 05/02/20 13:03:00 SOLE RUFFER Ibuprofen 2020-1 No 600 mg, Memor ia 2-15 Route: PO, l 19:03: ONCE, Dosing Weight 119.545, kg, Priority: STAT, Start date: 05/02/20 13:03:00 SOLE RUFFER, Stop date: 05/02/20 13:03:00 SOLE RUFFER Ondansetron 2020-1 No 8 mg, Memor ia 2-15 Route: PO, l 19:03: Drug form: [place] 00 TABDIS, ONCE, Dosing Weight 119.545, kg, Priority: STAT, Start date: 05/02/20 13:03:00 SOLE RUFFER, Stop date: 05/02/20 13:03:00 SOLE RUFFER Acetaminoph 2020-1 No 650 mg, Mem oria en 2-15 Route: PO, l 19:03: Drug form: TAB, ONCE, Dosing Weight 119.545, kg, Priority: STAT, Start date: 05/02/20 13:03:00 SOLE RUFFER, Stop date: 05/02/20 13:03:00 SOLE RUFFER Ibuprofen 2019-1 No 600 mg, Memor ia 2-15 Route: PO, l 19:03: ONCE, Dosing Weight 119.545, kg, Priority: STAT, Start date: 05/02/20 13:03:00 SOLE RUFFER, Stop date: 05/02/20 13:03:00 SOLE RUFFER methocarbam 2020-0 2020- No 750mg 750 mg, U nivers oL 01-05- Oral, ity of (ROBAXIN) 03:45: 03:04 [place]CE, [place] 750 00 :00 dose, Wed Medi adelina mg 01/05/20 at Branch 2245, Routine ibuprofen 2019-0 2020- No 800mg 800 mg, Uni vers (IBU) 01-05- Oral, ity of tablet 800 03:45: 03:03 ONCE, 1 [place] mg 00 :00 dose, Wed Medical 01/05/20 at Branch 2245, MOHIT acetaminoph 2020-0 2020- No 1{tbl} 1 tablet, Univers en-codeine 01-05 Oral, ity of (TYLENOL 03:45: 03:06 ONCE, 1 [place] #3) 300-30 00 :00 dose, Wed Medi adelina mg tablet 1 01/05/20 at [facility] tablet 2245, MOHIT ibuprofen 2020-0 Yes [id number] 800mg Take 1 [facility] 800 mg 8-19 tablet by ity of tablet 00:00: mouth [place] 00 every 6 Medical (six) Branch hours as needed for Pain (scale 4-6). methocarbam 2020-0 Yes [id number] 500mg Take 1 [facility] oL 500 mg 8-19 tablet by ity o f tablet 00:00: mouth 4 [place] 00 (four) Medical times Branch daily as needed for Pain (scale 4-6) or Pain (scale 7-10). ibuprofen 2020-0 Yes [id number] 800mg Take 1 [facility] 800 mg 8-19 tablet by ity of tablet 00:00: mouth [place] 00 every 6 Medical (six) Branch hours as needed for Pain (scale 4-6). methocarbam 2020-0 Yes [id number] 500mg Take 1 [facility] oL 500 mg 8-19 tablet by ity o f tablet 00:00: mouth 4 [place] 00 (four) Medical times Branch daily as needed for Pain (scale 4-6) or Pain (scale 7-10). ibuprofen 2020-0 Yes [id number] 800mg Take 1 [facility] 800 mg 8-19 tablet by ity of tablet 00:00: mouth [place] 00 every 6 Medical (six) Branch hours as needed for Pain (scale 4-6). methocarbam 2020-0 Yes [id number] 500mg Take 1 [facility] oL 500 mg 8-19 tablet by ity o f tablet 00:00: mouth 4 [place] 00 (four) Medical times Branch daily as needed for Pain (scale 4-6) or Pain (scale 7-10). ibuprofen 2020-0 Yes [id number] 800mg Take 1 [facility] 800 mg 8-19 tablet by ity of tablet 00:00: mouth [place] 00 every 6 Medical (six) Branch hours as needed for Pain (scale 4-6). methocarbam 2020-0 Yes [id number] 500mg Take 1 [facility] oL 500 mg 8-19 tablet by ity o f tablet 00:00: mouth 4 [place] 00 (four) Medical times Branch daily as needed for Pain (scale 4-6) or Pain (scale 7-10). ibuprofen 2020-0 Yes [id number] 800mg Take 1 [facility] 800 mg 8-19 tablet by ity of tablet 00:00: mouth [place] 00 every 6 Medical (six) Branch hours as needed for Pain (scale 4-6). ibuprofen 2020-0 1- No [id number] 800mg Take 1 [facility] 800 mg 8-19 05-31 tablet by ity of tablet 00:00: 00:00 mouth [place] 00 :00 every 6 Medical (six) Branch hours as needed for Pain (scale 4-6). methocarbam 2020-0 2020- No [id number] 500mg Take 1 [facility] oL 500 mg 8-19 05-29 tablet by ity of tablet 00:00: 00:00 mouth 4 [place] 00 :00 (four) Medical times Branch daily as needed for Pain (scale 4-6) or Pain (scale 7-10). ketorolac 2019-2019- No 60mg 60 mg, Unive rs (TORADOL) 12-23 Intramuscu ity of injection 21:00: 19:54 [place], ONCE, [place] 60 mg 00 :00 1 dose, Medical 12/24/19 Branch at 1600, MOHIT
[facility] member approving Restricted medication : ANEL SEXTON HYDROcodone 2019-2019- No 1{tbl} 1 tablet, Univers -acetaminop 12-23 Oral, ity of hen (NORCO 19:45: 18:35 ONCE, 1 [place] 5) 5-325 mg 00 :00 dose, Fri Med ical tablet 1 12/24/19 at Branch tablet 1445, MOHIT ibuprofen 2019-0 Yes [id number] 800mg Take 1 [facility] 800 mg 8-07 tablet by ity of tablet 00:00: mouth (three) Medical times Branch daily with meals. ibuprofen 2020-0 Yes [id number] 800mg Take 1 [facility] 800 mg 8-07 tablet by ity of tablet 00:00: mouth (three) Medical times Branch daily with meals. ibuprofen 2020-0 Yes [id number] 800mg Take 1 [facility] 800 mg 8-07 tablet by ity of tablet 00:00: mouth (three) Medical times Branch daily with meals. ibuprofen 2020-0 Yes [id number] 800mg Take 1 [facility] 800 mg 8-07 tablet by ity of tablet 00:00: mouth (three) Medical times Branch daily with meals. ibuprofen 2020-0 Yes [id number] 800mg Take 1 [facility] 800 mg 8-07 tablet by ity of tablet 00:00: mouth (three) Medical times Branch daily with meals. ibuprofen 2020-0 Yes [id number] 800mg Take 1 [facility] 800 mg 8-07 tablet by ity of tablet 00:00: mouth (three) Medical times Branch daily with meals. ibuprofen 2020-0 2020- No [id number] 800mg Take 1 [facility] 800 mg 8-07 05-31 tablet by ity of tablet 00:00: 00:00 mouth 3 00 :00 (three) Medical times Branch daily with meals. clindamycin 2020-0 2020- No [id number] 450mg Take 3 [facility] 150 mg 8 08-18 capsules ity of capsule 00:00: 04:59 by mouth 3 [place] 00 :00 (three) Medical times Branch daily for 10 days. Tramadol Tramadol 2020-0 Yes [address] Hcl Hcl 8-02 Hours as [facility] (Ultram) 50 (Ultram) 50 19:19: needed for Patient Mg TABLET Mg TABLET 00 Pain [facility] Fluoxetine Fluoxetine 2020-[address] [facility] Hcl 7-21 [facility] (Prozac) 40 (Prozac) 40 20:58: Patient Mg CAPSULE Mg CAPSULE 00 [facility] Lurasidone Lurasidone 2020-0 Yes [address] Hcl Hcl 7-21 [facility] (Latuda) 80 (Latuda) 80 20:57: Patient Mg TABLET Mg TABLET 00 [facility] acetaminoph 2020-0 Yes Take by Met hodi en with 7-[address] codeine 22:20: Hospita (TYLENOL-CO 09 l DEINE #3 ORAL) CLONAZEPAM 2020-0 Yes Take by Meth romie ORAL 7-[address] 22:20: Hospita 09 l phentermine 2020-0 Yes Take by Met hodi HCl 7-[address] (PHENTERMIN 22:20: Hospit a E ORAL) 09 l acetaminoph 2020-0 Yes Take by Met hodi en with 7-[address] codeine 22:20: Hospita (TYLENOL-CO 09 l DEINE #3 ORAL) CLONAZEPAM 2020-0 Yes Take by Meth romie ORAL 7-[address] 22:20: Hospita 09 l phentermine 2020-0 Yes Take by Met hodi HCl 7-[address] (PHENTERMIN 22:20: Hospit a E ORAL) 09 l acetaminoph 2020-0 Yes Take by Met hodi en with 7-[address] codeine 22:20: Hospita (TYLENOL-CO 09 l DEINE #3 ORAL) CLONAZEPAM 2020-0 Yes Take by Meth romie ORAL 7-[address] 22:20: Hospita 09 l phentermine 2020-0 Yes Take by Met hodi HCl 7-[address] (PHENTERMIN 22:20: Hospit a E ORAL) 09 l acetaminoph 2020-0 Yes Take by Met hodi en with 7-[address] codeine 22:20: Hospita (TYLENOL-CO 09 l DEINE #3 ORAL) CLONAZEPAM 2020-0 Yes Take by Meth romie ORAL 7-[address] 22:20: Hospita 09 l phentermine 2020-0 Yes Take by Met hodi HCl 7-[address] (PHENTERMIN 22:20: Hospit a E ORAL) 09 l acetaminoph 2020-0 Yes Take by Met hodi en with 7-[address] codeine 22:20: Hospita (TYLENOL-CO 09 l DEINE #3 ORAL) CLONAZEPAM 2020-0 Yes Take by Meth romie ORAL 7-[address] 22:20: Hospita 09 l phentermine 2020-0 Yes Take by Met hodi HCl 7-[address] (PHENTERMIN 22:20: Hospit a E ORAL) 09 l traMADol 2020-0 2020- No 50mg 50 mg, Univer s (ULTRAM) 11-19 Oral, ity of tablet 50 05:00: 03:57 ONCE, 1 [place] mg 00 :00 dose, Sat Medical 11/20/19 at [place] 0000, Routine ondansetron 2019-0 2020- No 4mg 4 mg, Slow Univers (ZOFRAN 11-19 IV Push, ity of (PF)) 04:00: 03:06 ONCE, 1 [place] injection 4 00 :00 dose, Fri Med ical mg 11/19/19 at Branch 2300, MOHIT NaCl 0.9% 2020-0 2020- No 1000mL at 999 Uni vers (NS) bolus 11-19 mL/hr, ity of infusion 03:00: 05:16 1,000 mL, [place] 1,000 mL 00 :00 IV Medical Infusion, [place] ONCE, 1 dose, 11/19/19 at 2200, MOHIT HYDROcodone 2020-0 2020- No 1{tbl} 1 tablet, Univers -acetaminop 11-15 Oral, ity of hen (NORCO 22:45: 21:55 ONCE, 1 [place] 5) 5-325 mg 00 :00 dose, Tue Med ical tablet 1 11/16/19 at [facility] h tablet 1745, MOHIT diphenhydrA 2020-0 2020- No 25mg 25 mg, Uni vers MINE 09-21 05-06 Slow IV ity of (BENADRYL) 03:00: 02:01 Push, [place] injection 00 :00 ONCE, 1 Medical 25 mg dose, Tue Branch 09/21/19 at 2200, STAT morpHINE 2019-0 2020- No 4mg 4 mg, Slow Un [facility] injection 4 09-21-06 IV Push, ity of mg 01:15: 00:14 ONCE, 1 [place] 00 :00 dose, Tue Medical 09/21/19 at Branch 2015, Routine NaCl 0.9% 2019-0 2020- No 1000mL at 999 Uni vers (NS) bolus 5 05-06 mL/hr, ity of infusion 00:15: 02:27 1,000 mL, [place] 1,000 mL 00 :00 IV Medical Infusion, [place] ONCE, 1 dose, [facility] 09/21/19 at 1915, STAT ondansetron 2019-0 2020- No 4mg 4 mg, Slow Univers (ZOFRAN 09-21 05-05 IV Push, ity of (PF)) 00:15: 23:34 ONCE, 1 [place] injection 4 00 :00 dose, Tue Med ical mg 09/21/19 at Branch 191, MOHIT ibuprofen 2020-0 Yes [id number] 600mg Take 1 U nivers 600 mg 5-05 tablet by ity of tablet 00:00: mouth [place] 00 every 6 Medical (six) Branch hours as needed for Pain (scale 4-6). acetaminoph 2020-0 Yes [id number] 1{tbl} Take 1 Univers en-codeine 5-05 tablet by ity of 300-30 mg 00:00: mouth [place] tablet 00 every 4 Medical (four) Branch hours as needed for Pain (scale 4-6). ibuprofen 2020-0 Yes [id number] 600mg Take 1 U nivers 600 mg 5-05 tablet by ity of tablet 00:00: mouth [place] 00 every 6 Medical (six) Branch hours as needed for Pain (scale 4-6). acetaminoph 2020-0 Yes [id number] 1{tbl} Take 1 Univers en-codeine 5-05 tablet by ity of 300-30 mg 00:00: mouth [place] tablet 00 every 4 Medical (four) Branch hours as needed for Pain (scale 4-6). ibuprofen 2020-0 Yes [id number] 600mg Take 1 U nivers 600 mg 5-05 tablet by ity of tablet 00:00: mouth [place] 00 every 6 Medical (six) Branch hours as needed for Pain (scale 4-6). acetaminoph 2020-0 Yes [id number] 1{tbl} Take 1 [facility] en-codeine 5-05 tablet by ity of 300-30 mg 00:00: mouth [place] tablet 00 every 4 Medical (four) Branch hours as needed for Pain (scale 4-6). ibuprofen 2020-0 Yes [id number] 600mg Take 1 U nivers 600 mg 5-05 tablet by ity of tablet 00:00: mouth [place] 00 every 6 Medical (six) Branch hours as needed for Pain (scale 4-6). acetaminoph 2020-0 Yes [id number] 1{tbl} Take 1 [facility] en-codeine 5-05 tablet by ity of 300-30 mg 00:00: mouth [place] tablet 00 every 4 Medical (four) Branch hours as needed for Pain (scale 4-6). ibuprofen 2020-0 Yes [id number] 600mg Take 1 U nivers 600 mg 5-05 tablet by ity of tablet 00:00: mouth [place] 00 every 6 Medical (six) Branch hours as needed for Pain (scale 4-6). acetaminoph 2020-0 Yes [id number] 1{tbl} Take 1 Univers en-codeine 5-05 tablet by ity of 300-30 mg 00:00: mouth [place] tablet 00 every 4 Medical (four) Branch hours as needed for Pain (scale 4-6). ibuprofen 2020-0 Yes [id number] 600mg Take 1 U nivers 600 mg 5-05 tablet by ity of tablet 00:00: mouth [place] 00 every 6 Medical (six) Branch hours as needed for Pain (scale 4-6). acetaminoph 2020-0 Yes [id number] 1{tbl} Take 1 Univers en-codeine 5-05 tablet by ity of 300-30 mg 00:00: mouth [place] tablet 00 every 4 Medical (four) Branch hours as needed for Pain (scale 4-6). ibuprofen 2020-0 Yes [id number] 600mg Take 1 U nivers 600 mg 5-05 tablet by ity of tablet 00:00: mouth [place] 00 every 6 Medical (six) Branch hours as needed for Pain (scale 4-6). acetaminoph 2020-0 Yes [id number] 1{tbl} Take 1 Univers en-codeine 5-05 tablet by ity of 300-30 mg 00:00: mouth [place] tablet 00 every 4 Medical (four) Branch hours as needed for Pain (scale 4-6). ibuprofen 2019-0 2020- No [id number] 600mg Take 1 [facility] 600 mg 5-05 08-07 tablet by ity of tablet 00:00: 00:00 mouth [place] 00 :00 every 6 Medical (six) Branch hours as needed for Pain (scale 4-6). acetaminoph 2019-0 2020- No [id number] 1{tbl} Take 1 Univers en-codeine 5-05 08-07 tablet by ity of 300-30 mg 00:00: 00:00 mouth [place] tablet 00 :00 every 4 Medical (four) Branch hours as needed for Pain (scale 4-6). acetaminoph 2020-0 Yes [id number] 1{tbl} Take 1 Univers en-codeine 4-25 tablet by ity of (TYLENOL-CO 00:00: mouth [place] DEINE #3) 00 every 8 Medical 300-30 mg (eight) Branch tablet hours as needed for Pain (scale 1-3). ondansetron 2020-0 Yes [id number] 4mg Take 1 Univers (ZOFRAN 4-25 tablet by ity of ODT) 4 mg 00:00: mouth [place] disintegrat 00 every 8 Medic al ing tablet (eight) Branch hours as needed for Nausea and Vomiting (N/V). acetaminoph 2020-0 Yes [id number] 1{tbl} Take 1 Univers en-codeine 4-25 tablet by ity of (TYLENOL-CO 00:00: mouth [place] DEINE #3) 00 every 8 Medical 300-30 mg (eight) Branch tablet hours as needed for Pain (scale 1-3). ondansetron 2020-0 Yes [id number] 4mg Take 1 Univers (ZOFRAN 4-25 tablet by ity of ODT) 4 mg 00:00: mouth [place] disintegrat 00 every 8 Medic al ing tablet (eight) Branch hours as needed for Nausea and Vomiting (N/V). acetaminoph 2020-0 Yes [id number] 1{tbl} Take 1 Univers en-codeine 4-25 tablet by ity of (TYLENOL-CO 00:00: mouth [place] DEINE #3) 00 every 8 Medical 300-30 mg (eight) Branch tablet hours as needed for Pain (scale 1-3). ondansetron 2020-0 Yes [id number] 4mg Take 1 Univers (ZOFRAN 4-25 tablet by ity of ODT) 4 mg 00:00: mouth [place] disintegrat 00 every 8 Medic al ing tablet (eight) Branch hours as needed for Nausea and Vomiting (N/V). acetaminoph 2020-0 Yes [id number] 1{tbl} Take 1 Univers en-codeine 4-25 tablet by ity of (TYLENOL-CO 00:00: mouth [place] DEINE #3) 00 every 8 Medical 300-30 mg (eight) Branch tablet hours as needed for Pain (scale 1-3). ondansetron 2020-0 Yes [id number] 4mg Take 1 Univers (ZOFRAN 4-25 tablet by ity of ODT) 4 mg 00:00: mouth [place] disintegrat 00 every 8 Medic al ing tablet (eight) Branch hours as needed for Nausea and Vomiting (N/V). acetaminoph 2020-0 Yes [id number] 1{tbl} Take 1 [facility] en-codeine 4-25 tablet by ity of (TYLENOL-CO 00:00: mouth [place] DEINE #3) 00 every 8 Medical 300-30 mg (eight) Branch tablet hours as needed for Pain (scale 1-3). ondansetron 2020-0 Yes [id number] 4mg Take 1 Univers (ZOFRAN 4-25 tablet by ity of ODT) 4 mg 00:00: mouth [place] disintegrat 00 every 8 Medic al ing tablet (eight) Branch hours as needed for Nausea and Vomiting (N/V). acetaminoph 2020-0 Yes [id number] 1{tbl} Take 1 Univers en-codeine 4-25 tablet by ity of (TYLENOL-CO 00:00: mouth [place] DEINE #3) 00 every 8 Medical 300-30 mg (eight) Branch tablet hours as needed for Pain (scale 1-3). ondansetron 2020-0 Yes [id number] 4mg Take 1 Univers (ZOFRAN 4-25 tablet by ity of ODT) 4 mg 00:00: mouth [place] disintegrat 00 every 8 Medic al ing tablet (eight) Branch hours as needed for Nausea and Vomiting (N/V). acetaminoph 2020-0 Yes [id number] 1{tbl} Take 1 Univers en-codeine 4-25 tablet by ity of (TYLENOL-CO 00:00: mouth [place] DEINE #3) 00 every 8 Medical 300-30 mg (eight) Branch tablet hours as needed for Pain (scale 1-3). ondansetron 2020-0 Yes [id number] 4mg Take 1 Univers (ZOFRAN 4-25 tablet by ity of ODT) 4 mg 00:00: mouth [place] disintegrat 00 every 8 Medic al ing tablet (eight) Branch hours as needed for Nausea and Vomiting (N/V). acetaminoph 2020-0 Yes [id number] 1{tbl} Take 1 [facility] en-codeine 4-25 tablet by ity of (TYLENOL-CO 00:00: mouth [place] DEINE #3) 00 every 8 Medical 300-30 mg (eight) Branch tablet hours as needed for Pain (scale 1-3). ondansetron 2020-0 Yes [id number] 4mg Take 1 Univers (ZOFRAN 4-25 tablet by ity of ODT) 4 mg 00:00: mouth [place] disintegrat 00 every 8 Medic al ing tablet (eight) Branch hours as needed for Nausea and Vomiting (N/V). ondansetron 2020-0 Yes [id number] 4mg Take 1 Univers (ZOFRAN 4-25 tablet by ity of ODT) 4 mg 00:00: mouth [place] disintegrat 00 every 8 Medic al ing tablet (eight) Branch hours as needed for Nausea and Vomiting (N/V). ondansetron 2020-0 Yes [id number] 4mg Take 1 Univers (ZOFRAN 4-25 tablet by ity of ODT) 4 mg 00:00: mouth [place] disintegrat 00 every 8 Medic al ing tablet (eight) Branch hours as needed for Nausea and Vomiting (N/V). ondansetron 2020-0 Yes [id number] 4mg Take 1 Univers (ZOFRAN 4-25 tablet by ity of ODT) 4 mg 00:00: mouth [place] disintegrat 00 every 8 Medic al ing tablet (eight) Branch hours as needed for Nausea and Vomiting (N/V). ondansetron 2020-0 Yes [id number] 4mg Take 1 Univers (ZOFRAN 4-25 tablet by ity of ODT) 4 mg 00:00: mouth [place] disintegrat 00 every 8 Medic al ing tablet (eight) Branch hours as needed for Nausea and Vomiting (N/V). ondansetron 2020-0 Yes [id number] 4mg Take 1 [facility] (ZOFRAN 4-25 tablet by ity of ODT) 4 mg 00:00: mouth [place] disintegrat 00 every 8 Medic al ing tablet (eight) Branch hours as needed for Nausea and Vomiting (N/V). ondansetron 2020-0 2020- No [id number] 4mg Take 1 Univers (ZOFRAN 4-25 05-29 tablet by ity of ODT) 4 mg 00:00: 00:00 mouth [place] disintegrat 00 :00 every 8 Medic al ing tablet (eight) Branch hours as needed for Nausea and Vomiting (N/V). acetaminoph 2019-2019- No [id number] 1{tbl} Take 1 [facility] en-codeine 4-25 08-07 tablet by ity of (TYLENOL-CO 00:00: 00:00 mouth [place] DEINE #3) 00 :00 every 8 Medical 300-30 mg (eight) Branch tablet hours as needed for Pain (scale 1-3). phenazopyri 2019-0 Yes [id number] 200mg Take 1 Univers dine 200 mg 4-01 tablet by ity of tablet 00:00: mouth 3 00 (three) Medical times Branch daily. phenazopyri 2019-0 Yes [id number] 200mg Take 1 Univers dine 200 mg 4-01 tablet by ity of tablet 00:00: mouth 3 [place] 00 (three) Medical times Branch daily. phenazopyri 2019-0 Yes [id number] 200mg Take 1 Univers dine 200 mg 4-01 tablet by ity of tablet 00:00: mouth 3 [place] 00 (three) Medical times Branch daily. phenazopyri 2019-0 Yes [id number] 200mg Take 1 Univers dine 200 mg 4-01 tablet by ity of tablet 00:00: mouth 3 [place] 00 (three) Medical times Branch daily. phenazopyri Yes [id number] 200mg Take 1 Univers dine 200 mg 4-01 tablet by ity of tablet 00:00: mouth 3 00 (three) Medical times Branch daily. phenazopyri Yes [id number] 200mg Take 1 Univers dine 200 mg 4-01 tablet by ity of tablet 00:00: mouth 3 00 (three) Medical times Branch daily. phenazopyri Yes [id number] 200mg Take 1 [facility] dine 200 mg 4-01 tablet by ity of tablet 00:00: mouth 3 00 (three) Medical times Branch daily. phenazopyri Yes [id number] 200mg Take 1 [facility] dine 200 mg 4-01 tablet by ity of tablet 00:00: mouth 3 (three) Medical times Branch daily. phenazopyri Yes [id number] 200mg Take 1 Univers dine 200 mg 4-01 tablet by ity of tablet 00:00: mouth 3 (three) Medical times Branch daily. phenazopyri Yes [id number] 200mg Take 1 [facility] dine 200 mg 4-01 tablet by ity of tablet 00:00: mouth 3 00 (three) Medical times Branch daily. phenazopyri Yes [id number] 200mg Take 1 [facility] dine 200 mg 4-01 tablet by ity of tablet 00:00: mouth 3 00 (three) Medical times Branch daily. phenazopyri Yes [id number] 200mg Take 1 [facility] dine 200 mg 4-01 tablet by ity of tablet 00:00: mouth 3 (three) Medical times Branch daily. phenazopyri Yes [id number] 200mg Take 1 Univers dine 200 mg 4-01 tablet by ity of tablet 00:00: mouth 3 00 (three) Medical times Branch daily. phenazopyri 2020- No [id number] 200mg Take 1 Univers dine 200 mg 4-01 05-29 tablet by it y of tablet 00:00: 00:00 mouth 3 [place] 00 :00 (three) Medical times Branch daily. dicyclomine 2018- Yes [id number] 20mg Take 1 Univers (BENTYL) 20 3-20 tablet by ity of mg tablet 00:00: mouth 4 00 (four) Medical times Branch daily as needed for Abdominal pain for up to 30 doses. dicyclomine 2018-0 Yes [id number] 20mg Take 1 Univers (BENTYL) 20 3-20 tablet by ity of mg tablet 00:00: mouth ([facility]) Medical times Branch daily as needed for Abdominal pain for up to 30 doses. dicyclomine 2018-0 Yes [id number] 20mg Take 1 Univers (BENTYL) 20 3-20 tablet by ity of mg tablet 00:00: mouth ([facility]) Medical times Branch daily as needed for Abdominal pain for up to 30 doses. dicyclomine 2018-0 Yes [id number] 20mg Take 1 Univers (BENTYL) 20 3-20 tablet by ity of mg tablet 00:00: mouth ([facility]) Medical times Branch daily as needed for Abdominal pain for up to 30 doses. dicyclomine 2018-0 Yes [id number] 20mg Take 1 Univers (BENTYL) 20 3-20 tablet by ity of mg tablet 00:00: mouth [place] ([facility]) Medical times Branch daily as needed for Abdominal pain for up to 30 doses. dicyclomine 2018-0 Yes [id number] 20mg Take 1 Univers (BENTYL) 20 3-20 tablet by ity of mg tablet 00:00: mouth [place] ([facility]) Medical times Branch daily as needed for Abdominal pain for up to 30 doses. dicyclomine 2018-0 Yes [id number] 20mg Take 1 [facility] (BENTYL) 20 3-20 tablet by ity of mg tablet 00:00: mouth [place] ([facility]) Medical times Branch daily as needed for Abdominal pain for up to 30 doses. dicyclomine 2018-0 Yes [id number] 20mg Take 1 [facility] (BENTYL) 20 3-20 tablet by ity of mg tablet 00:00: mouth [place] ([facility]) Medical times Branch daily as needed for Abdominal pain for up to 30 doses. dicyclomine 2018-0 Yes [id number] 20mg Take 1 [facility] (BENTYL) 20 3-20 tablet by ity of mg tablet 00:00: mouth [place] ([facility]) Medical times Branch daily as needed for Abdominal pain for up to 30 doses. dicyclomine 2018-0 Yes [id number] 20mg Take 1 Univers (BENTYL) 20 3-20 tablet by ity of mg tablet 00:00: mouth 4 (four) Medical times Branch daily as needed for Abdominal pain for up to 30 doses. dicyclomine 2018- Yes [id number] 20mg Take 1 [facility] (BENTYL) 20 3-20 tablet by ity of mg tablet 00:00: mouth 4 (four) Medical times Branch daily as needed for Abdominal pain for up to 30 doses. dicyclomine 2018- Yes [id number] 20mg Take 1 [facility] (BENTYL) 20 3-20 tablet by ity of mg tablet 00:00: mouth 4 (four) Medical times Branch daily as needed for Abdominal pain for up to 30 doses. dicyclomine 2018- Yes [id number] 20mg Take 1 [facility] (BENTYL) 20 3-20 tablet by ity of mg tablet 00:00: mouth 4 (four) Medical times Branch daily as needed for Abdominal pain for up to 30 doses. dicyclomine 2020- No [id number] 20mg Take 1 [facility] (BENTYL) 20 3-20 05-29 tablet by it y of mg tablet 00:00: 00:00 mouth 4 [place] 00 :00 (four) Medical times Branch daily as needed for Abdominal pain for up to 30 doses. quetiapine 0 Yes 100mg Take 100 [facility] [place] fumarate 3-13 mg by ity of (SEROQUEL 21:16: mouth [place] ORAL) 39 daily. Medical Branch fluoxetine Yes 60mg Take 60 mg U nivers HCl (PROZAC 3-13 by mouth ity of ORAL) 21:16: daily. [address] Branch lurasidone 2018-0 Yes 80mg Take 80 mg U nivers HCl (LATUDA 3-13 by mouth. ity of ORAL) 21:16: [address] Branch ATENOLOL 2019-0 Yes Take by Univer s ORAL 3-13 mouth. ity of 21:16: [address] Branch quetiapine 2018-0 Yes 100mg Take 100 [place] fumarate 3-13 mg by ity of (SEROQUEL 21:16: mouth [place] ORAL) 39 daily. Medical Branch fluoxetine 0 Yes 60mg Take 60 mg U nivers HCl (PROZAC 3-13 by mouth ity of ORAL) 21:16: daily. [place] 39 Medical Branch lurasidone 2019-0 Yes 80mg Take 80 mg U nivers HCl (LATUDA 3-13 by mouth. ity of ORAL) 21:16: [address] Branch ATENOLOL 2019-0 Yes Take by Univer s ORAL 3-13 mouth. ity of 21:16: [address] Branch quetiapine 2018-0 Yes 100mg Take 100 [place] fumarate 3-13 mg by ity of (SEROQUEL 21:16: mouth [place] ORAL) 39 daily. Medical Branch fluoxetine 2019-0 Yes 60mg Take 60 mg U nivers HCl (PROZAC 3-13 by mouth ity of ORAL) 21:16: daily. [address] Branch lurasidone 2018-0 Yes 80mg Take 80 mg U nivers HCl (LATUDA 3-13 by mouth. ity of ORAL) 21:16: [address] ATENOLOL 2018-0 Yes Take by Univer s ORAL 3-13 mouth. ity of 21:16: [address] quetiapine 0 Yes 100mg Take 100 [place] fumarate 3-13 mg by ity of (SEROQUEL 21:16: mouth [place] ORAL) 39 daily. Medical Branch fluoxetine 2018-0 Yes 60mg Take 60 mg U nivers HCl (PROZAC 3-13 by mouth ity of ORAL) 21:16: daily. [address] Branch lurasidone 2018-0 Yes 80mg Take 80 mg U nivers HCl (LATUDA 3-13 by mouth. ity of ORAL) 21:16: [address] ATENOLOL 2018-0 Yes Take by Univer s ORAL 3-13 mouth. ity of 21:16: [address] quetiapine 2018-0 Yes 100mg Take 100 [place] fumarate 3-13 mg by ity of (SEROQUEL 21:16: mouth [place] ORAL) 39 daily. Medical Branch fluoxetine 2019-0 Yes 60mg Take 60 mg U nivers HCl (PROZAC 3-13 by mouth ity of ORAL) 21:16: daily. [address] Branch lurasidone 2019-0 Yes 80mg Take 80 mg U nivers HCl (LATUDA 3-13 by mouth. ity of ORAL) 21:16: [address] Branch ATENOLOL 2019-0 Yes Take by Univer s ORAL 3-13 mouth. ity of 21:16: [address] Branch quetiapine 0 Yes 100mg Take 100 [place] fumarate 3-13 mg by ity of (SEROQUEL 21:16: mouth [place] ORAL) 39 daily. Medical Branch fluoxetine 2019-0 Yes 60mg Take 60 mg U nivers HCl (PROZAC 3-13 by mouth ity of ORAL) 21:16: daily. [address] Branch lurasidone 2018-0 Yes 80mg Take 80 mg U nivers HCl (LATUDA 3-13 by mouth. ity of ORAL) 21:16: [address] Branch ATENOLOL 2018-0 Yes Take by Univer s ORAL 3-13 mouth. ity of 21:16: [address] quetiapine 0 Yes 100mg Take 100 [facility] [place] fumarate 3-13 mg by ity of (SEROQUEL 21:16: mouth [place] ORAL) 39 daily. [facility] fluoxetine 0 Yes 60mg Take 60 mg U nivers HCl (PROZAC 3-13 by mouth ity of ORAL) 21:16: daily. [address] Branch lurasidone 0 Yes 80mg Take 80 mg U nivers HCl (LATUDA 3-13 by mouth. ity of ORAL) 21:16: [address] ATENOLOL 2018-0 Yes Take by Univer s ORAL 3-13 mouth. ity of 21:16: [address] quetiapine 0 Yes 100mg Take 100 [facility] fumarate 3-13 mg by ity of (SEROQUEL 21:16: mouth [place] ORAL) 39 daily. [facility] fluoxetine 2018-0 Yes 60mg Take 60 mg U nivers HCl (PROZAC 3-13 by mouth ity of ORAL) 21:16: daily. [address] Branch lurasidone 2018-0 Yes 80mg Take 80 mg U nivers HCl (LATUDA 3-13 by mouth. ity of ORAL) 21:16: [address] ATENOLOL 2018-0 Yes Take by Univer s ORAL 3-13 mouth. ity of 21:16: [address] Branch quetiapine 0 Yes 100mg Take 100 [place] fumarate 3-13 mg by ity of (SEROQUEL 21:16: mouth [place] ORAL) 39 daily. [facility] fluoxetine 20190 Yes 60mg Take 60 mg U nivers HCl (PROZAC 3-13 by mouth ity of ORAL) 21:16: daily. [address] Branch lurasidone 2019-0 Yes 80mg Take 80 mg U nivers HCl (LATUDA 3-13 by mouth. ity of ORAL) 21:16: [address] Branch ATENOLOL 2019-0 Yes Take by Univer s ORAL 3-13 mouth. ity of 21:16: [address] Branch quetiapine 2019-0 Yes 100mg Take 100 [facility] [place] fumarate 3-13 mg by ity of (SEROQUEL 21:16: mouth [place] ORAL) 39 daily. [facility] fluoxetine 2019-0 Yes 60mg Take 60 mg U nivers HCl (PROZAC 3-13 by mouth ity of ORAL) 21:16: daily. [address] Branch lurasidone 2018-0 Yes 80mg Take 80 mg U nivers HCl (LATUDA 3-13 by mouth. ity of ORAL) 21:16: [address] ATENOLOL 2018-0 Yes Take by Univer s ORAL 3-13 mouth. ity of 21:16: [address] Branch quetiapine 2018-0 Yes 100mg Take 100 [place] fumarate 3-13 mg by ity of (SEROQUEL 21:16: mouth [place] ORAL) 39 daily. [facility] fluoxetine 2018-0 Yes 60mg Take 60 mg U nivers HCl (PROZAC 3-13 by mouth ity of ORAL) 21:16: daily. [address] Branch lurasidone 2019-0 Yes 80mg Take 80 mg U nivers HCl (LATUDA 3-13 by mouth. ity of ORAL) 21:16: [address] ATENOLOL 2019-0 Yes Take by Univer s ORAL 3-13 mouth. ity of 21:16: [place] [id number] Medical Branch quetiapine 2019-0 Yes 100mg Take 100 [facility] [place] fumarate 3-13 mg by ity of (SEROQUEL 21:16: mouth [place] ORAL) 39 daily. [facility] fluoxetine 2019-0 Yes 60mg Take 60 mg U nivers HCl (PROZAC 3-13 by mouth ity of ORAL) 21:16: daily. [address] Branch lurasidone 2019-0 Yes 80mg Take 80 mg U nivers HCl (LATUDA 3-13 by mouth. ity of ORAL) 21:16: [address] ATENOLOL Yes Take by Univer s ORAL 3-13 mouth. ity of 21:16: [address] quetiapine Yes 100mg Take 100 [place] fumarate 3-13 mg by ity of (SEROQUEL 21:16: mouth [place] ORAL) 39 daily. [facility] fluoxetine Yes 60mg Take 60 mg U nivers HCl (PROZAC 3-13 by mouth ity of ORAL) 21:16: daily. [address] lurasidone Yes 80mg Take 80 mg U nivers HCl (LATUDA 3-13 by mouth. ity of ORAL) 21:16: [address] ATENOLOL Yes Take by Univer s ORAL 3-13 mouth. ity of 21:16: [address] ATENOLOL Yes Take by Univer s ORAL 3-13 mouth. ity of 21:16: [address] 30 Yes TAKE ONE Un [facility] mg capsule 6-30 CAPSULE ity of 00:00: EVERY DAY [address] Yes TAKE ONE [facility] mg capsule 6-30 CAPSULE ity of 00:00: EVERY DAY [facility] Yes TAKE ONE [facility] [place] mg capsule 6-30 CAPSULE ity of 00:00: EVERY DAY [facility] Yes TAKE ONE [place] mg capsule 6-30 CAPSULE ity of 00:00: EVERY DAY [facility] Yes TAKE ONE [place] mg capsule 6-30 CAPSULE ity of 00:00: EVERY DAY [facility] Yes TAKE ONE [place] mg capsule 6-30 CAPSULE ity of 00:00: EVERY DAY [facility] Yes TAKE ONE [place] mg capsule 6-30 CAPSULE ity of 00:00: EVERY DAY [facility] Yes TAKE ONE [place] mg capsule 6-30 CAPSULE ity of 00:00: EVERY DAY [facility] Yes TAKE ONE [facility] [place] mg capsule 6-30 CAPSULE ity of 00:00: EVERY DAY [facility] CYMBALTA 30 Yes TAKE ONE [place] mg capsule 6-30 CAPSULE ity of 00:00: EVERY DAY [facility] CYMBALTA 30 Yes TAKE ONE [place] mg capsule 6-30 CAPSULE ity of 00:00: EVERY DAY [facility] CYMBALTA 30 Yes TAKE ONE [place] mg capsule 6-30 CAPSULE ity of 00:00: EVERY DAY [facility] CYMBALTA 30 Yes TAKE ONE [place] mg capsule 6-30 CAPSULE ity of 00:00: EVERY DAY [facility] CYMBALTA 30 2020- No TAKE ONE U nivers mg capsule 6-30 05-29 CAPSULE ity o f 00:00: 00:00 EVERY DAY [place] 00 :00 [facility] esomeprazol Yes 40mg Take 40 mg Methodi e (NexIUM) 4-[address] 40 MG 00:00: Hospita capsule esomeprazol Yes 40mg Take 40 mg [facility] (NexIUM) 4-[address] 40 MG 00:00: Hospita capsule esomeprazol Yes 40mg Take 40 mg Method[facility] (NexIUM) 4-[address] 40 MG 00:00: Hospita capsule esomeprazol Yes 40mg Take 40 mg Methodi [facility] (NexIUM) 4-[address] 40 MG 00:00: Hospita capsule esomeprazol Yes 40mg Take 1 Cap Univers e (NEXIUM) 4-13 by mouth ity o f 40 mg 00:00: daily with [place] capsule 00 breakfast. [facility] esomeprazol Yes 40mg Take 1 Cap Univers e (NEXIUM) 4-13 by mouth ity o f 40 mg 00:00: daily with [place] capsule 00 breakfast. [facility] esomeprazol Yes 40mg Take 1 Cap Univers e (NEXIUM) 4-13 by mouth ity o f 40 mg 00:00: daily with [place] capsule 00 breakfast. [facility] esomeprazol Yes 40mg Take 1 Cap Univers e (NEXIUM) 4-13 by mouth ity o f 40 mg 00:00: daily with [place] capsule 00 breakfast. [facility] esomeprazol Yes 40mg Take 1 Cap Univers e (NEXIUM) 4-13 by mouth ity o f 40 mg 00:00: daily with [place] capsule 00 breakfast. [facility] esomeprazol Yes 40mg Take 1 Cap Univers e (NEXIUM) 4-13 by mouth ity o f 40 mg 00:00: daily with [place] capsule 00 breakfast. [facility] esomeprazol Yes 40mg Take 1 Cap Univers e (NEXIUM) 4-13 by mouth ity o f 40 mg 00:00: daily with [place] capsule 00 breakfast. [facility] esomeprazol Yes 40mg Take 1 Cap Univers e (NEXIUM) 4-13 by mouth ity o f 40 mg 00:00: daily with [place] capsule 00 breakfast. [facility] esomeprazol Yes 40mg Take 1 Cap Univers e (NEXIUM) 4-13 by mouth ity o f 40 mg 00:00: daily with [place] capsule 00 breakfast. [facility] esomeprazol Yes 40mg Take 1 Cap Univers e (NEXIUM) 4-13 by mouth ity o f 40 mg 00:00: daily with [place] capsule 00 breakfast. [facility] esomeprazol Yes 40mg Take 1 Cap Univers e (NEXIUM) 4-13 by mouth ity o f 40 mg 00:00: daily with [place] capsule 00 breakfast. [facility] esomeprazol Yes 40mg Take 1 Cap Univers e (NEXIUM) 4-13 by mouth ity o f 40 mg 00:00: daily with [place] capsule 00 [facility]. [facility] Take 1 Cap Univers e (NEXIUM) 4-13 by mouth ity o f 40 mg 00:00: daily with [place] capsule 00 breakfast. [facility] esomeprazol Yes 40mg Take 1 Cap Univers e (NEXIUM) 4-13 by mouth ity o f 40 mg 00:00: daily with [place] capsule 00 breakfast. [facility] esomeprazol 2012-0 Yes 40mg Take 1 Cap Univers e (NEXIUM) 4-13 by mouth ity o f 40 mg 00:00: daily with [place] capsule 00 breakfast. [facility] esomeprazol Yes 40mg Take 1 Cap Univers e (NEXIUM) 4-13 by mouth ity o f 40 mg 00:00: daily with [place] capsule 00 breakfast. [facility] esomeprazol Yes 40mg Take 1 Cap Univers e (NEXIUM) 4-13 by mouth ity o f 40 mg 00:00: daily with [place] capsule 00 breakfast. [facility] esomeprazol Yes 40mg Take 1 Cap Univers e (NEXIUM) 4-13 by mouth ity o f 40 mg 00:00: daily with [place] capsule 00 breakfast. [facility] esomeprazol Yes 40mg Take 1 Cap Univers e (NEXIUM) 4-13 by mouth ity o f 40 mg 00:00: daily with [place] capsule 00 breakfast. [facility] esomeprazol Yes 40mg Take 1 Cap Univers e (NEXIUM) 4-13 by mouth ity o f 40 mg 00:00: daily with [place] capsule 00 breakfast. [facility] esomeprazol Yes 40mg Take 1 Cap Univers e (NEXIUM) 4-13 by mouth ity o f 40 mg 00:00: daily with [place] capsule 00 breakfast. [facility] esomeprazol Yes 40mg Take 1 Cap Univers e (NEXIUM) 4-13 by mouth ity o f 40 mg 00:00: daily with [place] capsule 00 breakfast. [facility] esomeprazol Yes 40mg Take 1 Cap Univers e (NEXIUM) 4-13 by mouth ity o f 40 mg 00:00: daily with [place] capsule 00 breakfast. [facility] esomeprazol Yes 40mg Take 1 Cap Univers e (NEXIUM) 4-13 by mouth ity o f 40 mg 00:00: daily with [place] capsule 00 breakfast. [facility] esomeprazol Yes 40mg Take 1 Cap Univers e (NEXIUM) 4-13 by mouth ity o f 40 mg 00:00: daily with [place] capsule 00 breakfast. [facility] esomeprazol Yes 40mg Take 1 Cap Univers e (NEXIUM) 4-13 by mouth ity o f 40 mg 00:00: daily with [place] capsule 00 breakfast. [facility] Take 1 Cap Univers e (NEXIUM) 4-13 by mouth ity o f 40 mg 00:00: daily with [place] capsule 00 breakfast. [facility] 40mg Take 1 Cap Univers e (NEXIUM) 4-13 by mouth ity o f 40 mg 00:00: daily with [place] capsule 00 breakfast. [facility] 40mg Take 1 Cap Univers e (NEXIUM) 4-13 by mouth ity o f 40 mg 00:00: daily with [place] capsule 00 breakfast. [facility] 40mg Take 1 Cap Univers e (NEXIUM) 4-13 by mouth ity o f 40 mg 00:00: daily with [place] capsule 00 breakfast. [facility] esomeprazol Yes 40mg Take 1 Cap Univers e (NEXIUM) 4-13 by mouth ity o f 40 mg 00:00: daily with [place] capsule 00 breakfast. [facility] 40mg Take 1 Cap Univers e (NEXIUM) 4-13 by mouth ity o f 40 mg 00:00: daily with [place] capsule 00 breakfast. [facility] esomeprazol Yes 40mg Take 1 Cap Univers e (NEXIUM) 4-13 by mouth ity o f 40 mg 00:00: daily with [place] capsule 00 breakfast. [facility] 40mg Take 1 Cap Univers e (NEXIUM) 4-13 by mouth ity o f 40 mg 00:00: daily with [place] capsule 00 breakfast. [facility] esomeprazol Yes 40mg Take 1 Cap Univers e (NEXIUM) 4-13 by mouth ity o f 40 mg 00:00: daily with [place] capsule 00 breakfast. [facility] esomeprazol Yes 40mg Take 1 Cap Univers e (NEXIUM) 4-13 by mouth ity o f 40 mg 00:00: daily with [place] capsule 00 breakfast. [facility] 40mg Take 1 Cap Univers e (NEXIUM) 4-13 by mouth ity o f 40 mg 00:00: daily with [place] capsule 00 breakfast. Medica l Branch esomeprazol Yes 40mg Take 40 mg Methodi e (NexIUM) 4-[address] 40 MG 00:00: Hospita capsule 00 l levothyroxi Yes 50ug Take 1 Tab Univers ne 1-21 by mouth ity of (SYNTHROID) 00:00: QA-729. [place] 50 mcg 00 Medical tablet Branch levothyroxi Yes 50ug Take 1 Tab Univers ne 1-21 by mouth ity of (SYNTHROID) 00:00: QA. [place] 50 mcg 00 Medical tablet Branch levothyroxi Yes 50ug Take 1 Tab Univers ne 1-21 by mouth ity of (SYNTHROID) 00:00: QA. [place] 50 mcg 00 Medical tablet Branch levothyroxi Yes 50ug Take 1 Tab Univers ne 1-21 by mouth ity of (SYNTHROID) 00:00: QA. [place] 50 mcg 00 Medical tablet Branch levothyroxi Yes 50ug Take 1 Tab Univers ne 1-21 by mouth ity of (SYNTHROID) 00:00: QA. [place] 50 mcg 00 Medical tablet Branch levothyroxi Yes 50ug Take 1 Tab Univers ne 1-21 by mouth ity of (SYNTHROID) 00:00: QA. [place] 50 mcg 00 Medical tablet Branch levothyroxi Yes 50ug Take 1 Tab Univers ne 1-21 by mouth ity of (SYNTHROID) 00:00: QA. [place] 50 mcg 00 Medical tablet Branch levothyroxi Yes 50ug Take 1 Tab Univers ne 1-21 by mouth ity of (SYNTHROID) 00:00: QAM. [place] 50 mcg 00 Medical tablet Branch levothyroxi Yes 50ug Take 1 Tab Univers ne 1-21 by mouth ity of (SYNTHROID) 00:00: QA. [place] 50 mcg 00 Medical tablet Branch levothyroxi Yes 50ug Take 1 Tab Univers ne 1-21 by mouth ity of (SYNTHROID) 00:00: QA-729. [place] 50 mcg 00 Medical tablet Branch levothyroxi Yes 50ug Take 1 Tab Univers ne 1-21 by mouth ity of (SYNTHROID) 00:00: QAM-729. [place] 50 mcg Medical tablet Branch levothyroxi Yes 50ug Take 1 Tab Univers ne 1-21 by mouth ity of (SYNTHROID) 00:00: QAM-729. [place] 50 mcg Medical tablet Branch levothyroxi Yes 50ug Take 1 Tab Univers ne 1-21 by mouth ity of (SYNTHROID) 00:00: QAM-729. [place] 50 mcg Medical tablet Branch levothyroxi 2020- No 50ug Take 1 Tab Univers ne 1-21 05-29 by mouth ity of (SYNTHROID) 00:00: 00:00 QA-729. [place] 50 mcg 00 :00 Medical tablet Branch Immunizations Ordered Immunization Filled Immunization Date Status Commen ts Source Name Name PFIZER COVID-19 MRNA 2021-06-08 Completed [facility] VACCINATION 00:00:00 [facility] PFIZER COVID-19 MRNA 2021-06-08 Completed Meth odist VACCINATION 00:00:00 [facility] PFIZER COVID-19 MRNA 2021-06-08 Completed Meth odist VACCINATION 00:00:00 [facility] PFIZER COVID-19 MRNA 2021-06-08 Completed Meth odist VACCINATION 00:00:00 [facility] PFIZER COVID-19 MRNA 2021-06-08 Completed Meth odist VACCINATION 00:00:00 [facility] PFIZER COVID-19 MRNA 2020-09-11 Completed Meth odist VACCINATION 00:00:00 [facility] PFIZER COVID-19 MRNA 2020-09-11 Completed Meth odist VACCINATION 00:00:00 [facility] PFIZER COVID-19 MRNA 2020-09-11 Completed Meth odist VACCINATION 00:00:00 [facility] PFIZER COVID-19 MRNA 2020-09-11 Completed Meth odist VACCINATION 00:00:00 [facility] PFIZER COVID-19 MRNA 2020-09-11 Completed Meth odist VACCINATION 00:00:00 [facility] PFIZER COVID-19 MRNA 2020-08-21 Completed Meth odist VACCINATION 00:00:00 [facility] PFIZER COVID-19 MRNA 2020-08-21 Completed Meth odist VACCINATION 00:00:00 [facility] PFIZER COVID-19 MRNA 2020-08-21 Completed Meth odist VACCINATION 00:00:00 [facility] PFIZER COVID-19 MRNA 2020-08-21 Completed Meth odist VACCINATION 00:00:00 [facility] PFIZER COVID-19 MRNA 2020-08-21 Completed Meth odist VACCINATION 00:00:00 Hospital Vital Signs Vital Name Observation Time Observation Value Comments Source Oxygen saturation by 2022-01-03 21:43:00 100 /min [facility] Pulse oximetry Patient [facility] Height 2022-01-03 21:43:00 160.895958 cm [facility] Weight 2022-01-03 21:43:00 108.490276 kg [facility] BMI (Body Mass 2022-01-03 21:43:00 42.5 kg/m2 [facility] Index) Patient [facility] Oxygen saturation by 2021-09-12 22:04:00 97 /min [facility] Pulse oximetry Patient [facility] Oxygen saturation by 2021-06-19 16:55:00 99 /min [facility] Pulse oximetry Patient [facility] BP Diastolic 2021-06-19 16:55:00 67 mm[Hg] [facility] Oxygen saturation by 2021-06-19 16:28:00 99 /min [facility] Pulse oximetry Patient [facility] Oxygen saturation by 2021-06-19 15:40:00 100 /min [facility] Pulse oximetry Patient [facility] Oxygen saturation by 2021-05-24 23:40:00 100 /min [facility] Pulse oximetry Patient [facility] Oxygen saturation by 2021-05-24 22:35:00 99 /min [facility] Pulse oximetry Patient [facility] Oxygen saturation by 2021-05-24 21:18:00 100 /min [facility] Pulse oximetry Patient [facility] Oxygen saturation by 2021-04-08 03:24:00 97 /min [facility] Pulse oximetry Patient [facility] BP Diastolic 2021-04-08 03:24:00 80 mm[Hg] [facility] Oxygen saturation by 2021-04-07 23:32:00 97 /min [facility] Pulse oximetry Patient [facility] Oxygen saturation by 2021-04-07 21:49:00 100 /min [facility] Pulse oximetry Patient [facility] Oxygen saturation by 2021-03-15 22:53:00 100 /min [facility] Pulse oximetry Patient [facility] Oxygen saturation by 2021-03-12 02:40:00 100 /min [facility] Pulse oximetry Patient [facility] Oxygen saturation by 2021-03-11 21:14:00 100 /min [facility] Pulse oximetry Patient [facility] Height 2022-01-02 19:52:00 160.02 CM Weight 2022-01-02 19:52:00 114 KG WEIGHT 2021-12-31 00:18:00 127.3 kg WEIGHT 2021-12-31 00:18:00 127.3 kg WEIGHT 2021-12-31 00:18:00 127.3 kg HEIGHT 2021-10-17 16:13:00 160 cm WEIGHT 2021-10-17 16:13:00 124.739 kg HEIGHT 2021-10-17 16:13:00 160 cm WEIGHT 2021-10-17 16:13:00 124.739 kg HEIGHT 2021-10-17 16:13:00 160 cm WEIGHT 2021-10-17 16:13:00 124.739 kg HEIGHT 2021-09-14 12:23:00 160 cm WEIGHT 2021-09-14 12:23:00 122.925 kg HEIGHT 2021-09-14 12:23:00 160 cm WEIGHT 2021-09-14 12:23:00 122.925 kg HEIGHT 2021-09-14 12:23:00 160 cm WEIGHT 2021-09-14 12:23:00 122.925 kg Oxygen saturation by 2021-09-12 21:04:00 97 /min [facility] Pulse oximetry Patient [facility] Height 2021-09-12 21:04:00 160.081830 cm [facility] Weight 2021-09-12 21:04:00 108.115368 kg [facility] BMI (Body Mass 2021-09-12 21:04:00 42.5 kg/m2 [facility] Index) Patient [facility] Oxygen saturation by 2021-06-19 15:55:00 99 /min [facility] Pulse oximetry Patient [facility] BP Diastolic 2021-06-19 15:55:00 67 mm[Hg] [facility] Oxygen saturation by 2021-06-19 15:28:00 99 /min [facility] Pulse oximetry Patient [facility] Oxygen saturation by 2021-06-19 14:40:00 100 /min [facility] Pulse oximetry Patient [facility] Oxygen saturation by 2021-05-24 22:40:00 100 /min [facility] Pulse oximetry Patient [facility] Oxygen saturation by 2021-05-24 21:35:00 99 /min [facility] Pulse oximetry Patient [facility] Oxygen saturation by 2021-05-24 20:18:00 100 /min [facility] Pulse oximetry Patient [facility] Oxygen saturation by 2021-04-08 02:24:00 97 /min [facility] Pulse oximetry Patient [facility] BP Diastolic 2021-04-08 02:24:00 80 mm[Hg] [facility] Oxygen saturation by 2021-04-07 22:32:00 97 /min [facility] Pulse oximetry Patient [facility] Oxygen saturation by 2021-04-07 20:49:00 100 /min [facility] Pulse oximetry Patient [facility] Oxygen saturation by 2021-03-15 21:53:00 100 /min [facility] Pulse oximetry Patient [facility] Oxygen saturation by 2021-03-12 01:40:00 100 /min [facility] Pulse oximetry Patient [facility] Oxygen saturation by 2021-03-11 20:14:00 100 /min [facility] Pulse oximetry Patient [facility] Oxygen saturation by 2021-01-22 13:03:00 99 /min [facility] Pulse oximetry Patient [facility] Oxygen saturation by 2021-01-19 08:54:00 100 /min [facility] Pulse oximetry Patient [facility] Height 2021-09-10 19:30:00 160.02 CM Weight 2021-09-10 19:30:00 108.86 KG Height 2021-07-20 20:02:00 162.56 CM Weight 2021-07-20 20:02:00 114.75 KG Oxygen saturation by 2021-06-19 15:55:00 99 /min [facility] Pulse oximetry Patient [facility] BP Diastolic 2021-06-19 15:55:00 67 mm[Hg] [facility] Oxygen saturation by 2021-06-19 15:28:00 99 /min [facility] Pulse oximetry Patient [facility] Oxygen saturation by 2021-06-19 14:40:00 100 /min [facility] Pulse oximetry Patient [facility] Height 2021-06-19 14:40:00 160.503583 cm [facility] Weight 2021-06-19 14:40:00 113.155071 kg [facility] BMI (Body Mass 2021-06-19 14:40:00 44.3 kg/m2 [facility] Index) Patient [facility] Oxygen saturation by 2021-05-24 22:40:00 100 /min [facility] Pulse oximetry Patient [facility] Oxygen saturation by 2021-05-24 21:35:00 99 /min [facility] Pulse oximetry Patient [facility] Oxygen saturation by 2021-05-24 20:18:00 100 /min [facility] Pulse oximetry Patient [facility] Oxygen saturation by 2021-04-08 02:24:00 97 /min [facility] Pulse oximetry Patient [facility] BP Diastolic 2021-04-08 02:24:00 80 mm[Hg] [facility] Oxygen saturation by 2021-04-07 22:32:00 97 /min [facility] Pulse oximetry Patient [facility] Oxygen saturation by 2021-04-07 20:49:00 100 /min [facility] Pulse oximetry Patient [facility] Oxygen saturation by 2021-03-15 21:53:00 100 /min [facility] Pulse oximetry Patient [facility] Oxygen saturation by 2021-03-12 01:40:00 100 /min [facility] Pulse oximetry Patient [facility] Oxygen saturation by 2021-03-11 20:14:00 100 /min [facility] Pulse oximetry Patient [facility] Oxygen saturation by 2021-01-22 13:03:00 99 /min [facility] Pulse oximetry Patient [facility] Oxygen saturation by 2021-01-19 08:54:00 100 /min [facility] Pulse [facility]xim[facility] Patient [facility] Height 2021-06-10 22:01:00 152.4 CM Weight 2021-06-10 22:01:00 142.88 KG Height 2021-06-07 21:04:00 160.02 CM Weight 2021-06-07 21:04:00 113.39 KG Height 2021-06-04 18:38:00 160.02 CM Weight 2021-06-04 18:38:00 113.39 KG Height 2021-05-28 19:37:00 160.02 CM Weight 2021-05-28 19:37:00 113.39 KG Height 2021-05-23 11:10:00 160.02 CM Weight 2021-05-23 11:10:00 113.39 KG Systolic blood 2021-04-23 21:00:00 123 mm[Hg] [facility]iver [facility]ity of [facility] Diastolic blood 2021-04-23 21:00:00 90 mm[Hg] Unive rsity [facility] Heart rate 2021-04-23 21:00:00 85 /min [facility] Respiratory rate 2021-04-23 21:00:00 16 /min [facility] Oxygen saturation in 2021-04-23 21:00:00 100 /min [facility] Arterial blood by [facility] Pulse oximetry Branch Body temperature 2021-04-23 20:18:54 36.78 Essie Univ ers[facility] of [facility] Body weight 2021-04-23 18:15:00 113.399 [facility] [place] [facility] BMI 2021-04-23 18:15:00 44.29 kg/m2 [facility] Height 2021-04-19 10:14:00 160.02 CM Weight 2021-04-19 10:14:00 113.39 KG Height 2021-04-05 15:40:00 160.02 CM Weight 2021-04-05 15:40:00 113.39 KG Systolic blood 2021-04-05 19:05:00 178 mm[Hg] [facility]iver [facility] of [facility] Diastolic blood 2021-04-05 19:05:00 115 mm[Hg] Unive rsity of pressure [place] [facility] Heart rate 2021-04-05 19:05:00 110 /min [facility] [place] [facility] Body temperature 2021-04-05 19:05:00 37.22 Essie [facility] [place] [facility] Respiratory rate 2021-04-05 19:05:00 18 /min Univ ers[facility] [place] [facility] Body height 2021-04-05 19:05:00 160 cm [facility] [place] [facility] Body weight 2021-04-05 19:05:00 113.399 kg [facility] [place] [facility] BMI 2021-04-05 19:05:00 44.29 kg/m2 [facility] [place] [facility] Oxygen saturation in 2021-04-05 19:05:00 98 /min [facility] of Arterial blood by [place] [facility] [employer] [facility] Pulse oximetry Branch Systolic blood 2021-04-03 04:00:00 101 mm[Hg] Univer sity of pressure [place] [facility] Diastolic blood 2021-04-03 04:00:00 41 mm[Hg] Unive rsity of pressure [place] [facility] Heart rate 2021-04-03 04:00:00 94 /min [facility] [place] [facility] Body temperature 2021-04-03 04:00:00 36.67 [facility] Respiratory rate 2021-04-03 04:00:00 18 /min [facility] Oxygen saturation in 2021-04-03 04:00:00 99 /min [facility] [employer] [facility] Body height 2021-04-03 02:25:00 160 cm [facility] Body weight 2021-04-03 02:25:00 113.399 kg [facility] BMI 2021-04-03 02:25:00 44.29 kg/m2 [facility] Systolic blood 2021-03-29 14:50:00 122 mm[Hg] [facility] Diastolic blood 2021-03-29 14:50:00 89 mm[Hg] [facility] Heart rate 2021-03-29 14:50:00 104 /min [facility] Respiratory rate 2021-03-29 14:50:00 16 /min [facility] Oxygen saturation in 2021-03-29 14:50:00 100 /min [facility] Body temperature 2021-03-29 14:00:00 36.11 [facility] Body height 2021-03-28 06:57:00 160 cm [facility] Body weight 2021-03-28 06:57:00 122.471 kg [facility] BMI 2021-03-28 06:57:00 47.83 kg/m2 [facility] Height 2021-03-20 11:20:00 160.02 CM Weight 2021-03-20 11:20:00 113.39 KG Height 2021-03-04 13:44:00 160.02 CM Weight 2021-03-04 13:44:00 113.39 KG Systolic blood 2021-03-01 22:11:39 137 mm[Hg] [facility] Diastolic blood 2021-03-01 22:11:39 89 mm[Hg] [facility] Heart rate 2021-03-01 22:11:39 91 /min [facility] Body temperature 2021-03-01 22:11:39 36.44 [facility] Respiratory rate 2021-03-01 22:11:39 20 /min [facility] Oxygen saturation in 2021-03-01 22:11:39 100 /min [facility] Body height 2021-03-01 18:48:00 160 cm [facility] Body weight 2021-03-01 18:48:00 113.399 kg [facility] BMI 2021-03-01 18:48:00 44.29 kg/m2 [facility] Height 2021-02-15 18:59:00 160.02 CM Weight 2021-02-15 18:59:00 113.39 KG Systolic blood 2021-02-02 13:56:00 152 mm[Hg] [facility] Diastolic blood 2021-02-02 13:56:00 112 mm[Hg] [facility] Heart rate 2021-02-02 13:56:00 105 /min [facility] Body temperature 2021-02-02 13:56:00 37 [facility] Respiratory rate 2021-02-02 13:56:00 24 /min [facility] Body weight 2021-02-02 13:56:00 113.399 kg [facility] BMI 2021-02-02 13:56:00 44.29 kg/m2 [facility] Oxygen saturation in 2021-02-02 13:56:00 100 /min [facility] Height 2021-01-30 14:44:00 160.02 CM Weight 2021-01-30 14:44:00 113.39 KG Systolic blood 2021-01-29 02:00:00 116 mm[Hg] [facility] Diastolic blood 2021-01-29 02:00:00 82 mm[Hg] [facility] Heart rate 2021-01-29 02:00:00 93 /min [facility] Respiratory rate 2021-01-29 02:00:00 15 /min [facility] Oxygen saturation in 2021-01-29 02:00:00 94 /min [facility] Body temperature 2021-01-29 00:32:00 37.11 [facility] Body height 2021-01-29 00:32:00 160 cm [facility] Body weight 2021-01-29 00:32:00 113.399 kg [facility] BMI 2021-01-29 00:32:00 44.29 kg/m2 [facility] Height 2021-01-22 15:34:00 160.02 CM Weight 2021-01-22 15:34:00 113.63 KG Systolic blood 2021-01-22 00:28:41 139 mm[Hg] MAP 109 [facility] Diastolic blood 2021-01-22 00:28:41 95 mm[Hg] MAP 109 [facility] Heart rate 2021-01-22 00:28:41 96 /min [facility] Respiratory rate 2021-01-22 00:28:41 19 /min [facility] Oxygen saturation in 2021-01-22 00:28:41 98 /min [facility] [employer] [facility] Body temperature 2021-01-21 21:23:00 37.56 [facility] Body weight 2021-01-21 21:21:00 113.399 kg [facility] BMI 2021-01-21 21:21:00 44.29 kg/m2 [facility] Systolic blood 2021-01-12 23:00:00 124 mm[Hg] [facility] Diastolic blood 2021-01-12 23:00:00 90 mm[Hg] [facility] Heart rate 2021-01-12 23:00:00 90 /min [facility] Respiratory rate 2021-01-12 23:00:00 18 /min [facility] Oxygen saturation in 2021-01-12 23:00:00 95 /min [facility] Body temperature 2021-01-12 19:06:00 37.33 [facility] Body weight 2021-01-12 19:06:00 113.399 kg [facility] BMI 2021-01-12 19:06:00 44.29 kg/m2 [facility] Systolic blood 2021-01-02 19:00:00 141 mm[Hg] [facility] Diastolic blood 2021-01-02 19:00:00 110 mm[Hg] [facility] Heart rate 2021-01-02 19:00:00 102 /min [facility] Respiratory rate 2021-01-02 19:00:00 19 /min [facility] Oxygen saturation in 2021-01-02 19:00:00 100 /min [facility] [employer] [facility] Body temperature 2021-01-02 17:56:00 37.17 [facility] Body height 2021-01-02 17:56:00 160 cm [facility] Body weight 2021-01-02 17:56:00 113.399 kg [facility] BMI 2021-01-02 17:56:00 44.29 kg/m2 [facility] Systolic blood 2021-01-02 19:00:00 141 mm[Hg] [facility] Diastolic blood 2021-01-02 19:00:00 110 mm[Hg] [facility] Heart rate 2021-01-02 19:00:00 102 /min [facility] Respiratory rate 2021-01-02 19:00:00 19 /min [facility] Oxygen saturation in 2021-01-02 19:00:00 100 /min [facility] [employer] [facility] Body temperature 2021-01-02 17:56:00 37.17 [facility] Body height 2021-01-02 17:56:00 160 cm [facility] Body weight 2021-01-02 17:56:00 113.399 kg [facility] BMI 2021-01-02 17:56:00 44.29 kg/m2 [facility] Heart rate 2020-10-17 02:40:00 107 /min [facility] Oxygen saturation in 2020-10-17 02:40:00 97 /min [facility] Systolic blood 2020-10-17 02:39:00 130 mm[Hg] [facility] Diastolic blood 2020-10-17 02:39:00 82 mm[Hg] [facility] Respiratory rate 2020-10-17 02:39:00 17 /min [facility] Body temperature 2020-10-17 01:12:00 37.56 [facility] Body height 2020-10-17 01:12:00 160 cm [facility] Body weight 2020-10-17 01:12:00 130.137 kg [facility] BMI 2020-10-17 01:12:00 50.82 kg/m2 [facility] Heart rate 2020-10-17 02:40:00 107 /min [facility] Oxygen saturation in 2020-10-17 02:40:00 97 /min [facility] Systolic blood 2020-10-17 02:39:00 130 mm[Hg] [facility] Diastolic blood 2020-10-17 02:39:00 82 mm[Hg] [facility] Respiratory rate 2020-10-17 02:39:00 17 /min [facility] Body temperature 2020-10-17 01:12:00 37.56 [facility] Body height 2020-10-17 01:12:00 160 cm [facility] Body weight 2020-10-17 01:12:00 130.137 kg [facility] BMI 2020-10-17 01:12:00 50.82 kg/m2 [facility] Systolic blood 2020-10-14 08:36:00 137 mm[Hg] [facility] Diastolic blood 2020-10-14 08:36:00 86 mm[Hg] [facility] Heart rate 2020-10-14 08:36:00 89 /min [facility] Respiratory rate 2020-10-14 08:36:00 18 /min [facility] Oxygen saturation in 2020-10-14 08:36:00 94 /min [facility] Body temperature 2020-10-14 03:25:00 37.17 [facility] Body weight 2020-10-14 00:56:00 113.399 kg [facility] BMI 2020-10-14 00:56:00 44.29 kg/m2 [facility] Systolic blood 2020-10-14 08:36:00 137 mm[Hg] [facility] Diastolic blood 2020-10-14 08:36:00 86 mm[Hg] [facility] Heart rate 2020-10-14 08:36:00 89 /min [facility] Respiratory rate 2020-10-14 08:36:00 18 /min [facility] Oxygen saturation in 2020-10-14 08:36:00 94 /min [facility] [employer] [facility] Body temperature 2020-10-14 03:25:00 37.17 [facility] Body weight 2020-10-14 00:56:00 113.399 kg [facility] BMI 2020-10-14 00:56:00 44.29 kg/m2 [facility] Heart rate 2020-10-10 07:25:11 85 /min [facility] Systolic blood 2020-10-10 07:00:00 102 mm[Hg] [facility] Diastolic blood 2020-10-10 07:00:00 50 mm[Hg] [facility] Respiratory rate 2020-10-10 07:00:00 20 /min [facility] Oxygen saturation in 2020-10-10 07:00:00 99 /min [facility] Body temperature 2020-10-10 01:47:[address] [facility] Body height 2020-10-10 01:47:00 160 cm [facility] Body weight 2020-10-10 01:47:00 122.471 kg [facility] BMI 2020-10-10 01:47:00 47.83 kg/m2 [facility] Heart rate 2020-10-10 07:25:11 85 /min [facility] Systolic blood 2020-10-10 07:00:00 102 mm[Hg] [facility] Diastolic blood 2020-10-10 07:00:00 50 mm[Hg] [facility] Respiratory rate 2020-10-10 07:00:00 20 /min [facility] Oxygen saturation in 2020-10-10 07:00:00 99 /min [facility] Body temperature 2020-10-10 01:47:00 36.28 [facility] Body height 2020-10-10 01:47:00 160 cm [facility] Body weight 2020-10-10 01:47:00 122.471 kg [facility] BMI 2020-10-10 01:47:00 47.83 kg/m2 [facility] Systolic blood 2020-10-09 03:19:00 146 mm[Hg] [facility] Diastolic blood 2020-10-09 03:19:00 94 mm[Hg] [facility] Heart rate 2020-10-09 03:19:00 101 /min [facility] Respiratory rate 2020-10-09 03:19:00 13 /min [facility] Oxygen saturation in 2020-10-09 03:19:00 95 /min [facility] Body temperature 2020-10-09 01:03:00 36.83 [facility] Body height 2020-10-09 01:03:00 160 cm [facility] Body weight 2020-10-09 01:03:00 113.399 kg [facility] BMI 2020-10-09 01:03:00 44.29 kg/m2 [facility] Systolic blood 2020-10-09 03:19:00 146 mm[Hg] [facility] Diastolic blood 2020-10-09 03:19:00 94 mm[Hg] [facility] Heart rate 2020-10-09 03:19:00 101 /min [facility] Respiratory rate 2020-10-09 03:19:00 13 /min [facility] Oxygen saturation in 2020-10-09 03:19:00 95 /min [facility] Body temperature 2020-10-09 01:03:00 36.83 [facility] Body height 2020-10-09 01:03:00 160 cm [facility] Body weight 2020-10-09 01:03:00 113.399 kg [facility] BMI 2020-10-09 01:03:00 44.29 kg/m2 [facility] Systolic blood 2020-10-07 03:40:00 138 mm[Hg] [facility] Diastolic blood 2020-10-07 03:40:00 93 mm[Hg] [facility] Heart rate 2020-10-07 03:40:00 101 /min [facility] Respiratory rate 2020-10-07 03:40:00 18 /min [facility] Oxygen saturation in 2020-10-07 03:40:00 99 /min [facility] Body temperature 2020-10-07 01:33:00 37.56 [facility] Body weight 2020-10-07 01:33:00 113.399 kg [facility] BMI 2020-10-07 01:33:00 44.29 kg/m2 [facility] Systolic blood 2020-10-07 03:40:00 138 mm[Hg] [facility] Diastolic blood 2020-10-07 03:40:00 93 mm[Hg] [facility] Heart rate 2020-10-07 03:40:00 101 /min [facility] Respiratory rate 2020-10-07 03:40:00 18 /min [facility] Oxygen saturation in 2020-10-07 03:40:00 99 /min [facility] Body temperature 2020-10-07 01:33:00 37.56 [facility] Body weight 2020-10-07 01:33:00 113.399 kg [facility] BMI 2020-10-07 01:33:00 44.29 kg/m2 [facility] Height 2020-05-01 20:40:00 160.02 CM Weight 2020-05-01 20:40:00 7.08 KG Height 2020-04-22 19:16:00 160.02 CM Weight 2020-04-22 19:16:00 113.39 KG Systolic blood 2020-01-06 02:29:00 138 mm[Hg] [facility] Diastolic blood 2020-01-06 02:29:00 104 mm[Hg] [facility] Heart rate 2020-01-06 02:29:00 87 /min [facility] Body temperature 2020-01-06 02:29:00 37.06 [facility] Respiratory rate 2020-01-06 02:29:00 18 /min [facility] Body height 2020-01-06 02:29:00 160 cm [facility] Body weight 2020-01-06 02:29:00 90.719 kg [facility] BMI 2020-01-06 02:29:00 35.43 kg/m2 [facility] Oxygen saturation in 2020-01-06 02:29:00 100 /min [facility] [employer] [facility] Systolic blood 2020-01-06 02:29:00 138 mm[Hg] [facility] Diastolic blood 2020-01-06 02:29:00 104 mm[Hg] [facility] Heart rate 2020-01-06 02:29:00 87 /min [facility] Body temperature 2020-01-06 02:29:00 37.06 [facility] Respiratory rate 2020-01-06 02:29:00 18 /min [facility] Body height 2020-01-06 02:29:00 160 cm [facility] Body weight 2020-01-06 02:29:00 90.719 kg [facility] BMI 2020-01-06 02:29:00 35.43 kg/m2 [facility] Oxygen saturation in 2020-01-06 02:29:00 100 /min [facility] Systolic blood 2019-12-24 19:00:00 161 mm[Hg] [facility] Diastolic blood 2019-12-24 19:00:00 105 mm[Hg] [facility] Heart rate 2019-12-24 19:00:00 77 /min [facility] Respiratory rate 2019-12-24 19:00:00 17 /min [facility] Oxygen saturation in 2019-12-24 19:00:00 98 /min [facility] Body temperature 2019-12-24 18:05:25 37 [facility] Body height 2019-12-24 18:02:00 160 cm [facility] Body weight 2019-12-24 18:02:00 90.719 kg [facility] BMI 2019-12-24 18:02:00 35.43 kg/m2 [facility] Systolic blood 2019-12-24 19:00:00 161 mm[Hg] [facility] Diastolic blood 2019-12-24 19:00:00 105 mm[Hg] [facility] Heart rate 2019-12-24 19:00:00 77 /min [facility] Respiratory rate 2019-12-24 19:00:00 17 /min [facility] Oxygen saturation in 2019-12-24 19:00:00 98 /min [facility] Body temperature 2019-12-24 18:05:[address] [facility] Body height 2019-12-24 18:02:00 160 cm [facility] Body weight 2019-12-24 18:02:00 90.719 kg [facility] BMI 2019-12-24 18:02:00 35.43 kg/m2 [facility] Systolic blood 2019-11-20 05:01:00 142 mm[Hg] [facility] Diastolic blood 2019-11-20 05:01:00 85 mm[Hg] [facility] Heart rate 2019-11-20 05:01:00 75 /min [facility] Oxygen saturation in 2019-11-20 04:55:00 98 /min [facility] Respiratory rate 2019-11-20 04:02:00 16 /min [facility] Body temperature 2019-11-20 02:33:00 36.94 [facility] Body weight 2019-11-20 02:33:00 104.327 kg [facility] BMI 2019-11-20 02:33:00 40.74 kg/m2 [facility] Systolic blood 2019-11-20 05:01:00 142 mm[Hg] [facility] Diastolic blood 2019-11-20 05:01:00 85 mm[Hg] [facility] Heart rate 2019-11-20 05:01:00 75 /min [facility] Oxygen saturation in 2019-11-20 04:55:00 98 /min [facility] [employer] [facility] Respiratory rate 2019-11-20 04:02:00 16 /min [facility] Body temperature 2019-11-20 02:33:00 36.94 [facility] Body weight 2019-11-20 02:33:00 104.327 kg [facility] BMI 2019-11-20 02:33:00 40.74 kg/m2 [facility] Systolic blood 2019-11-16 21:18:00 181 mm[Hg] [facility] Diastolic blood 2019-11-16 21:18:00 120 mm[Hg] [facility] Heart rate 2019-11-16 21:18:00 111 /min [facility] Body temperature 2019-11-16 21:18:00 37.33 [facility] Respiratory rate 2019-11-16 21:18:00 18 /min [facility] Body weight 2019-11-16 21:18:00 113.399 kg [facility] BMI 2019-11-16 21:18:00 44.29 kg/m2 [facility] Oxygen saturation in 2019-11-16 21:18:00 97 /min [facility] [employer] [facility] Systolic blood 2019-11-16 21:18:00 181 mm[Hg] [facility] Diastolic blood 2019-11-16 21:18:00 120 mm[Hg] [facility] Heart rate 2019-11-16 21:18:00 111 /min [facility] Body temperature 2019-11-16 21:18:00 37.33 [facility] Respiratory rate 2019-11-16 21:18:00 18 /min [facility] Body weight 2019-11-16 21:18:00 113.399 kg [facility] BMI 2019-11-16 21:18:00 44.29 kg/m2 [facility] Oxygen saturation in 2019-11-16 21:18:00 97 /min [facility] [email or web address] [facility] Heart rate 2019-09-22 03:00:00 104 /min [facility] Systolic blood 2019-09-22 02:00:00 160 mm[Hg] [facility] Diastolic blood 2019-09-22 02:00:00 111 mm[Hg] [facility] Body temperature 2019-09-22 02:00:00 37.11 [facility] Respiratory rate 2019-09-22 02:00:00 20 /min [facility] Oxygen saturation in 2019-09-22 02:00:00 96 /min [facility] [email or web address] [facility] Body height 2019-09-21 22:13:00 160 cm [facility] Body weight 2019-09-21 22:13:00 107.049 kg [facility] BMI 2019-09-21 22:13:00 41.81 kg/m2 [facility] Heart rate 2019-09-22 03:00:00 104 /min [facility] Systolic blood 2019-09-22 02:00:00 160 mm[Hg] [facility] Diastolic blood 2019-09-22 02:00:00 111 mm[Hg] [facility] Body temperature 2019-09-22 02:00:00 37.11 [facility] Respiratory rate 2019-09-22 02:00:00 20 /min [facility] Oxygen saturation in 2019-09-22 02:00:00 96 /min [facility] Body height 2019-09-21 22:13:00 160 [facility] Body weight 2019-09-21 22:13:00 107.049 kg [facility] BMI 2019-09-21 22:13:00 41.81 kg/m2 [facility] Systolic blood 2021-12-31 00:18:00 114 mm[Hg] [facility] Diastolic blood 2021-12-31 00:18:00 68 mm[Hg] [facility] Heart rate 2021-12-31 00:18:00 102 /min [facility] Body temperature 2021-12-31 00:18:00 36.94 Essie [facility] Respiratory rate 2021-12-31 00:18:00 17 /min [facility] Body weight 2021-12-31 00:18:00 127.3 kg [facility] BMI 2021-12-31 00:18:00 49.71 kg/m2 [facility] Oxygen saturation in 2021-12-31 00:18:00 97 /min [facility] Arterial blood by [facility] Systolic blood 2021-10-17 16:13:00 134 mm[Hg] [facility] Diastolic blood 2021-10-17 16:13:00 67 mm[Hg] [facility] Heart rate 2021-10-17 16:13:00 116 /min [facility] Body temperature 2021-10-17 16:13:00 37.11 Essie [facility] Respiratory rate 2021-10-17 16:13:00 18 /min [facility] Body weight 2021-10-17 16:13:00 124.739 kg [facility] BMI 2021-10-17 16:13:00 48.71 kg/m2 [facility] Oxygen saturation in 2021-10-17 16:13:00 96 /min [facility] Arterial blood by Medical Ce nter Pulse oximetry Body height 2021-10-17 16:13:00 160 cm [facility] Systolic blood 2021-07-21 06:48:13 107 mm[Hg] [facility] pressure Diastolic blood 2021-07-21 06:48:13 58 mm[Hg] [facility] pressure Heart rate 2021-07-21 06:48:13 95 /min [facility] Body temperature 2021-07-21 06:48:13 36.5 [facility] Respiratory rate 2021-07-21 06:48:13 16 /min [facility] Oxygen saturation in 2021-07-21 06:48:13 95 /min [facility] Arterial blood by Pulse oximetry Body height 2021-07-21 05:23:00 160 cm [facility] Body weight 2021-07-15 23:47:00 102.059 kg [facility] BMI 2021-07-15 23:47:00 39.86 kg/m2 [facility] Temperature Oral (F) 2021-06-25 09:30:00 97.6 F [facility] Heart Rate 2021-06-25 09:30:00 [facility] Respitory Rate 2021-06-25 09:30:00 [facility] Systolic (mm Hg) 2021-06-25 09:30:00 [facility] Diastolic (mm Hg) 2021-06-25 09:30:00 [facility] Temperature Oral (F) 2021-06-25 05:11:00 97.8 F [facility] Heart Rate 2021-06-25 05:11:00 [facility] Respitory Rate 2021-06-25 05:11:00 [facility] Systolic (mm Hg) 2021-06-25 05:11:00 [facility] Diastolic (mm Hg) 2021-06-25 05:11:00 [facility] Height 2021-06-25 02:45:00 160.02 cm [facility] Weight 2021-06-25 02:45:00 [facility] BMI Calculated 2021-06-25 02:45:00 [facility] Temperature Oral (F) 2021-06-25 02:40:00 98.6 F [facility] Heart Rate 2021-06-25 02:40:00 [facility] Respitory Rate 2021-06-25 02:40:00 [facility] Systolic (mm Hg) 2021-06-25 02:40:00 [facility] Diastolic (mm Hg) 2021-06-25 02:40:00 [facility] Height 2021-06-24 21:48:00 160.02 cm [facility] BMI Calculated 2021-06-24 21:48:00 [facility] Weight 2021-06-24 21:48:00 [facility] Systolic (mm Hg) 2021-06-22 03:35:00 [facility] Diastolic (mm Hg) 2021-06-22 03:35:00 [facility] Respitory Rate 2021-06-22 03:35:00 [facility] Heart Rate 2021-06-22 03:35:00 [facility] Heart Rate 2021-06-22 02:00:00 [facility] Respitory Rate 2021-06-22 02:00:00 [facility] Systolic (mm Hg) 2021-06-22 02:00:00 [facility] Diastolic (mm Hg) 2021-06-22 02:00:00 [facility] Systolic (mm Hg) 2021-06-22 01:06:00 [facility] Diastolic (mm Hg) 2021-06-22 01:06:00 [facility] Heart Rate 2021-06-22 01:06:00 [facility] Respitory Rate 2021-06-22 01:06:00 [facility] Height 2021-06-22 00:28:00 160.02 cm [facility] BMI Calculated 2021-06-22 00:28:00 [facility] Weight 2021-06-22 00:28:00 [facility] Temperature Oral (F) 2021-06-22 00:28:00 98.4 F [facility] Temperature Oral (F) 2021-05-31 08:06:00 98.2 F [facility] Heart Rate 2021-05-31 08:06:00 [facility] Respitory Rate 2021-05-31 08:06:00 [facility] Systolic (mm Hg) 2021-05-31 08:06:00 [facility] Diastolic (mm Hg) 2021-05-31 08:06:00 [facility] Weight 2021-05-31 02:01:00 [facility] Systolic (mm Hg) 2021-05-31 02:01:00 [facility] Diastolic (mm Hg) 2021-05-31 02:01:00 [facility] Heart Rate 2021-05-31 02:01:00 [facility] Respitory Rate 2021-05-31 02:01:00 [facility] Temperature Oral (F) 2021-05-31 02:01:00 99.1 F [facility] Systolic (mm Hg) 2021-05-25 07:34:00 [facility] Diastolic (mm Hg) 2021-05-25 07:34:00 [facility] Heart Rate 2021-05-25 07:34:00 [facility] Respitory Rate 2021-05-25 07:34:00 [facility] Temperature Oral (F) 2021-05-25 07:34:00 98.4 F [facility] Height 2021-05-25 05:49:00 160.02 cm [facility] BMI Calculated 2021-05-25 05:49:00 [facility] Weight 2021-05-25 05:49:00 [facility] Systolic (mm Hg) 2021-05-25 05:49:00 [facility] Diastolic (mm Hg) 2021-05-25 05:49:00 [facility] Heart Rate 2021-05-25 05:49:00 [facility] Respitory Rate 2021-05-25 05:49:00 [facility] Temperature Oral (F) 2021-05-25 05:49:00 98.3 F [facility] Oxygen saturation by 2021-05-24 21:35:00 99 /min [facility] Pulse oxim[facility] Oxygen saturation by 2021-05-24 20:18:00 100 /min [facility] Pulse oximetry Patient [facility] BP Diastolic 2021-04-08 02:24:00 80 mm[Hg] [facility] BP Systolic 2021-04-08 02:24:00 128 mm[Hg] [facility] Oxygen saturation by 2021-04-08 02:24:00 97 /min [facility] Pulse oximetry Patient [facility] [place] Heart Rate 2021-04-08 02:24:00 85 /min [facility] Respiratory rate 2021-04-08 02:24:00 17 /min [facility] Body Temperature 2021-04-08 02:24:00 98.6 [degF] [facility] Patient [facility] Oxygen saturation by 2021-04-07 22:32:00 97 /min [facility] Pulse oximetry Patient [facility] Center Oxygen saturation by 2021-04-07 20:49:00 100 /min [facility] Pulse oximetry Patient [facility] Center Oxygen saturation by 2021-03-15 21:53:00 100 /min [facility] Pulse oximetry Patient [facility] Center Oxygen saturation by 2021-03-12 01:40:00 100 /min [facility] Pulse oximetry Patient [facility] Center Oxygen saturation by 2021-03-11 20:14:00 100 /min [facility] Pulse oximetry Patient [facility] Systolic (mm Hg) 2021-03-05 00:32:00 [facility] Diastolic (mm Hg) 2021-03-05 00:32:00 [facility] Temperature Oral (F) 2021-03-05 00:24:00 97.6 F [facility] Heart Rate 2021-03-05 00:24:00 [facility] Respitory Rate 2021-03-05 00:24:00 [facility] Systolic (mm Hg) 2021-03-05 00:24:00 [facility] Diastolic (mm Hg) 2021-03-05 00:24:00 [facility] Temperature Oral (F) 2021-03-04 22:14:00 98.7 F [facility] Heart Rate 2021-03-04 22:14:00 [facility] Respitory Rate 2021-03-04 22:14:00 [facility] Systolic (mm Hg) 2021-03-04 22:14:00 [facility] Diastolic (mm Hg) 2021-03-04 22:14:00 [facility] Height 2021-03-04 20:16:00 160.02 cm [facility] BMI Calculated 2021-03-04 20:16:00 [facility] Weight 2021-03-04 20:16:00 [facility] Heart Rate 2021-03-04 20:16:00 [facility] Respitory Rate 2021-03-04 20:16:00 [facility] Temperature Oral (F) 2021-03-04 20:16:00 99.1 F [facility] Height 2021-01-31 16:23:00 160.02 cm [facility] BMI Calculated 2021-01-31 16:23:00 [facility] Weight 2021-01-31 16:23:00 [facility] Systolic (mm Hg) 2021-01-31 16:23:00 [facility] Diastolic (mm Hg) 2021-01-31 16:23:00 [facility] Heart Rate 2021-01-31 16:23:00 [facility] Respitory Rate 2021-01-31 16:23:00 [facility] Temperature Oral (F) 2021-01-31 16:23:00 98.4 F [facility] Temperature Oral (F) 2021-01-31 00:59:00 98.1 F [facility] Heart Rate 2021-01-31 00:59:00 [facility] Respitory Rate 2021-01-31 00:59:00 [facility] Systolic (mm Hg) 2021-01-31 00:59:00 [facility] Diastolic (mm Hg) 2021-01-31 00:59:00 [facility] Height 2021-01-30 22:06:00 160.02 cm [facility] BMI Calculated 2021-01-30 22:06:00 [facility] Weight 2021-01-30 22:06:00 [facility] Systolic (mm Hg) 2021-01-30 22:06:00 [facility] Diastolic (mm Hg) 2021-01-30 22:06:00 [facility] Heart Rate 2021-01-30 22:06:00 [facility] Respitory Rate 2021-01-30 22:06:00 [facility] Temperature Oral (F) 2021-01-30 22:06:00 98.8 F [facility] Oxygen saturation by 2021-01-22 13:03:00 99 /min [facility] Pulse oximetry Patient [facility] Oxygen saturation by 2021-01-19 08:54:00 100 /min [facility] Pulse oximetry Patient [facility] Heart Rate 2021-01-02 16:40:00 [facility] Respitory Rate 2021-01-02 16:40:00 [facility] Systolic (mm Hg) 2021-01-02 16:40:00 [facility] Diastolic (mm Hg) 2021-01-02 16:40:00 [facility] Temperature Oral (F) 2021-01-02 16:40:00 98 F [facility] Height 2021-01-02 14:13:00 160.02 cm [facility] BMI Calculated 2021-01-02 14:13:00 [facility] Weight 2021-01-02 14:13:00 [facility] Systolic (mm Hg) 2021-01-02 14:13:00 [facility] Diastolic (mm Hg) 2021-01-02 14:13:00 [facility] Heart Rate 2021-01-02 14:13:00 [facility] Respitory Rate 2021-01-02 14:13:00 [facility] Temperature Oral (F) 2021-01-02 14:13:00 98 F [facility] Heart Rate 2020-10-11 07:57:00 [facility] Respitory Rate 2020-10-11 07:57:00 [facility] Systolic (mm Hg) 2020-10-11 07:57:00 [facility] Diastolic (mm Hg) 2020-10-11 07:57:00 [facility] Temperature Oral (F) 2020-10-11 07:57:00 98.3 F [facility] Height 2020-10-11 06:57:00 160.02 cm [facility] BMI Calculated 2020-10-11 06:57:00 [facility] Weight 2020-10-11 06:57:00 [facility] Systolic (mm Hg) 2020-10-11 06:57:00 [facility] Diastolic (mm Hg) 2020-10-11 06:57:00 [facility] Heart Rate 2020-10-11 06:57:00 [facility] Respitory Rate 2020-10-11 06:57:00 [facility] Temperature Oral (F) 2020-10-11 06:57:00 98.0 F [facility] Systolic (mm Hg) 2020-10-09 05:55:00 [facility] Diastolic (mm Hg) 2020-10-09 05:55:00 [facility] Heart Rate 2020-10-09 05:55:00 [facility] Respitory Rate 2020-10-09 05:55:00 [facility] Temperature Oral (F) 2020-10-09 05:55:00 98.3 F [facility] Systolic (mm Hg) 2020-10-07 09:10:00 [facility] Diastolic (mm Hg) 2020-10-07 09:10:00 [facility] Heart Rate 2020-10-07 09:10:00 [facility] Respitory Rate 2020-10-07 09:10:00 [facility] Temperature Oral (F) 2020-10-07 09:10:00 98.3 F [facility] Height 2020-10-07 07:55:00 160.02 cm [facility] BMI Calculated 2020-10-07 07:55:00 [facility] Weight 2020-10-07 07:55:00 [facility] Systolic (mm Hg) 2020-10-07 07:55:00 [facility] Diastolic (mm Hg) 2020-10-07 07:55:00 [facility] Heart Rate 2020-10-07 07:55:00 [facility] Respitory Rate 2020-10-07 07:55:00 [facility] Temperature Oral (F) 2020-10-07 07:55:00 98.3 F [facility] Heart Rate 2020-09-14 05:24:00 [facility] Respitory Rate 2020-09-14 05:24:00 [facility] Systolic (mm Hg) 2020-09-14 05:24:00 [facility] Diastolic (mm Hg) 2020-09-14 05:24:00 [facility] Height 2020-09-14 03:58:00 160.02 cm [facility] BMI Calculated 2020-09-14 03:58:00 [facility] Weight 2020-09-14 03:58:00 [facility] Systolic (mm Hg) 2020-09-14 03:58:00 [facility] Diastolic (mm Hg) 2020-09-14 03:58:00 [facility] Heart Rate 2020-09-14 03:58:00 [facility] Respitory Rate 2020-09-14 03:58:00 [facility] Temperature Oral (F) 2020-09-14 03:58:00 98.2 F [facility] Systolic (mm Hg) 2020-05-02 22:12:00 [facility] Diastolic (mm Hg) 2020-05-02 22:12:00 [facility] Heart Rate 2020-05-02 22:12:00 [facility] Respitory Rate 2020-05-02 22:12:00 [facility] Temperature Oral (F) 2020-05-02 21:20:00 98.3 F [facility] Heart Rate 2020-05-02 21:20:00 [facility] Systolic (mm Hg) 2020-05-02 21:20:00 [facility] Diastolic (mm Hg) 2020-05-02 21:20:00 [facility] Respitory Rate 2020-05-02 21:20:00 [facility] Height 2020-05-02 18:55:00 160.02 cm [facility] BMI Calculated 2020-05-02 18:55:00 [facility] Weight 2020-05-02 18:55:00 [facility] Systolic (mm Hg) 2020-05-02 18:55:00 [facility] Diastolic (mm Hg) 2020-05-02 18:55:00 [facility] Heart Rate 2020-05-02 18:55:00 [facility] Respitory Rate 2020-05-02 18:55:00 [facility] Temperature Oral (F) 2020-05-02 18:55:00 98.6 F [facility] Weight 2020-01-15 13:46:00 250 [lb_av] [facility] BMI (Body Mass 2020-01-15 13:46:00 44.3 kg/m2 [facility] Weight 2020-01-15 13:06:00 200 [lb_av] [facility] BMI (Body Mass 2020-01-15 13:06:00 35.4 kg/m2 [facility] Body Temperature 2019-12-27 04:27:00 98.5 [degF] [facility] Weight 2019-12-27 04:13:00 200 [lb_av] [facility] BMI (Body Mass 2019-12-27 04:13:00 35.4 kg/m2 [facility] Weight 2019-12-23 21:04:00 200 [lb_av] [facility] BMI (Body Mass 2019-12-23 21:04:00 35.4 kg/m2 [facility] Weight 2019-12-19 15:45:00 200 [lb_av] [facility] BMI (Body Mass 2019-12-19 15:45:00 36.6 kg/m2 [facility] Body Temperature 2019-12-09 15:41:00 98.6 [degF] [facility] BMI (Body Mass 2019-12-09 11:57:00 36.6 kg/m2 [facility] Weight 2019-12-06 21:01:00 200 [lb_av] [facility] Procedures Procedure Date / Time Performing Source Performed Clinician CBC W/PLT COUNT & AUTO 2021-12-[address] [facility] DIFFER[facility] 00:39:00 [facility] BASIC METABOLIC PANEL (7) 2021-12-[address] [facility] 00[facility]39:00 [facility] CBC W/PLT COUNT & AUTO 2021-12-[address] [facility] DIFFERENTIAL 00:39:00 [facility] SCREEN, URINE 2021-12-[address] [facility] [facility] 00:39:00 [facility] URINALYSIS W/ REFLEX URINE CULTURE 2021-12-[address] [facility] 00:39:00 [facility] REFERRAL- REQUEST/RESPONSE 2021-09-24 Doctor Masha rsity of 05:01:00 Unassigned, No [facility] ABDOMEN/PELVIS WITH IV CONTRAST 2021-09-14 Alkhaiat, Dhu varner [facility] 14:19:00 [facility] SCREEN, URINE 2021-09-14 Alkhaiat, Dha [facility] 13:18:00 [facility] CBC W/PLT COUNT & AUTO 2021-09-[facility] 13:18:00 [facility] COMPREHENSIVE METABOLIC PANEL 2021-09-14 [facility] 13:18:00 [facility] CBC W/PLT COUNT & AUTO 2021-09-14 Alkhaiat, [facility] DIFFERENTIAL 13:18:00 [facility] HC COMPLETE BLD COUNT W/AUTO DIFF 2021-07-21 Fannie Luz 05:57:00 [facility] COMPREHENSIVE METABOLIC PANEL 2021-07-21 Danny Luz thodist 05:57:00 [facility] URINALYSIS 2021-07-21 Danny Luz 05:57:00 [facility] ESTIMATED GFR 2021-07-21 Danny Luz 05:57:[address] [facility] [address] ABDOMEN PELVIS W CONTRAST 2021-07-16 Too Jordan 02:09:10 Hospital HC COMPLETE BLD COUNT W/AUTO DIFF 2021-07-16 Too Jordan Ed 00:54:00 Hospital COMPREHENSIVE METABOLIC PANEL 2021-07-16 Too Jordan 00:54:00 Hospital LIPASE LEVEL 2021-07-16 Too Jordan 00:54:00 Hospital LACTIC ACID LEVEL, SEPSIS - NOW 2021-07-16 Too Jordan AND REPEAT 2X EVERY 3 HOURS 00:54:00 Hosp ital HCG QUALITATIVE, SERUM SCREEN 2021-07-16 Too Jordan 00:54:00 Hospital ESTIMATED GFR 2021-07-16 Too Jordan 00:54:00 Hospital XR ABDOMEN ACUTE INC CHEST 1V 2021-06-24 Felix Silva 20:06:04 Hospital URINE CULTURE 2021-06-24 Felix Silva 19:54:00 Hospital URINALYSIS SCREEN AND MICROSCOPY, 2021-06-24 Felix Silva WITH REFLEX TO CULTURE 19:54:00 Hospital HC COMPLETE BLD COUNT W/AUTO DIFF 2021-06-24 Felix Silva 17:50:00 Hospital LIPASE LEVEL 2021-06-24 Felix Silva 17:50:00 Hospital LACTIC ACID LEVEL, SEPSIS - NOW 2021-06-24 Felix Silva AND REPEAT 2X EVERY 3 HOURS 17:50:00 [facility] COMPREHENSIVE METABOLIC PANEL 2021-06-24 Felix Silva 17:50:00 [facility] ESTIMATED GFR 2021-06-24 Felix Silva 17:50:00 Hospital URINE CULTURE 2021-06-21 Norman Gaspar 19:38:00 [facility] COMPREHENSIVE METABOLIC PANEL 2021-06-21 Norman Gaspar 19:23:00 [facility] HC COMPLETE BLD COUNT W/AUTO DIFF 2021-06-21 Flor Gaspar 19:23:00 [facility] ESTIMATED GFR 2021-06-21 Norman Gaspar 19:23:00 [facility] SMEAR REVIEW 2021-06-21 Norman Gaspar 19:23:00 [facility] URINALYSIS SCREEN AND MICROSCOPY, 2021-06-21 Flor Gaspar WITH REFLEX TO CULTURE 19:09:00 [facility] ECG 12-LEAD 2021-06-21 Keon Palencia 06:38:00 [facility] LACTIC ACID LEVEL, SEPSIS - NOW 2021-06-21 Keon Palencia AND REPEAT 2X EVERY 3 HOURS 06:20:[address] [facility] [address] ABDOMEN PELVIS W CONTRAST 2021-06-21 Keon Palencia hodist 06:12:42 [facility] URINE CULTURE 2021-06-21 Keon Palencia 05:51:00 [facility] URINALYSIS SCREEN AND MICROSCOPY, 2021-06-21 Palencia, Keon Sikh WITH REFLEX TO CULTURE 05:00:00 [facility] HCG QUALITATIVE, URINE SCREEN 2021-06-21 Keon Palencia Me thodist 05:00:00 [facility] HC COMPLETE BLD COUNT W/AUTO DIFF 2021-06-21 Keon Palencia 04:55:00 [facility] COMPREHENSIVE METABOLIC PANEL 2021-06-21 Keon Palencia [place] thodist 04:55:00 [facility] LIPASE LEVEL 2021-06-21 Keon Palencia 04:55:00 [facility] PROTHROMBIN TIME WITH INR 2021-06-21 Keon Palencia ist 04:55:00 [facility] PARTIAL THROMBOPLASTIN TIME (PTT) 2021-06-21 Keon Palencia 04:55:00 [facility] TROPONIN T 2021-06-21 Keon Palencia 04:55:00 [facility] B NATRIURETIC PEPTIDE 2021-06-21 Keon Palencia 04:55:00 [facility] LACTIC ACID LEVEL, SEPSIS - NOW 2021-06-21 Koen Palencia AND REPEAT 2X EVERY 3 HOURS 04:55:00 [facility] ital ESTIMATED GFR 2021-06-21 Keon Palencia 04:55:00 [facility] DISCHARGE PATIENT 2021-06-12 Kemi Smith 14:04:08 [facility] CT ABDOMEN PELVIS WO CONTRAST 2021-06-11 Me daphne Smith 19:48:07 [facility] ABO AND RH CONFIRMATION BY 2021-06-11 Reji Romo dist PROTOCOL 12:32:00 [facility] BASIC METABOLIC PANEL 2021-06-11 Gonzalez Sageis t 12:32:00 Hospital HC COMPLETE BLD COUNT W/AUTO DIFF 2021-06-11 Kiesha Sage 12:32:00 Hospital MAGNESIUM LEVEL 2021-06-11 Gonzalez Sage 12:32:00 Hospital PHOSPHORUS LEVEL 2021-06-11 Gonzalez Sage 12:32:00 Hospital LACTIC ACID LEVEL 2021-06-11 Gonzalez Sage 12:32:00 Hospital PARTIAL THROMBOPLASTIN TIME (PTT) 2021-06-11 Kiesha Sage 12:32:00 Hospital PROTHROMBIN TIME WITH INR 2021-06-11 Gonzalez Sage Meth odist 12:32:00 Hospital ESTIMATED GFR 2021-06-11 RyanDean hearn Sikh 12:32:00 Hospital TYPE AND SCREEN 2021-06-11 Kemi Romo 11:54[facility]00 [facility] 2021-06-11 Bettie Andrade Meth odist 07:20:00 [facility] CT ABDOMEN PELVIS W CONTRAST 2021-06-11 Bettie Andrade Met hodist 06:43:15 [facility] COVID-19 QUALITATIVE RT-PCR 2021-06-11 AnabelBettie del eon Meth odist 06:20:00 [facility] HC COMPLETE BLD COUNT W/AUTO DIFF 2021-06-11 Bettie Andrade Sikh 06:14:00 [facility] COMPREHENSIVE METABOLIC PANEL 2021-06-11 Bettie Andrade Me thodist 06:14:00 [facility] AMYLASE LEVEL 2021-06-11 Bettie Andrade Sikh 06:14:00 [facility] LACTIC ACID, I-STAT 2021-06-[facility]00 [facility] ESTIMATED GFR 2021-06-11 Bettie Andrade Sikh 06:14:00 [facility] URINALYSIS 2021-06-11 Bettie Andrade Sikh 06:05:00 [facility] HCG QUALITATIVE, URINE SCREEN 2021-06-11 Bettie Andrade Me thodist 06:05:00 [facility] LIPASE 2021-04-23 Francisco J Szymanski [place] of 20:03:00 [facility] MAGNESIUM 2021-04-23 Francisco J Szymanski [place] of 20:03:00 [facility] TROPONIN I 2021-04-23 Francisco J Szymanski [place] of 20:03:00 [facility] COMP. METABOLIC PANEL ([id number]) 2021-04-23 Francisco J Szymanski iversity of 20:03:00 [facility] CBC WITH DIFF 2021-04-23 Francisco J Szymanski [place] of 20:03:00 [facility] URINALYSIS 2021-04-23 Francisco J Szymanski [place] of 19:59:00 [facility] CONSENT/REFUSAL FOR DIAGNOSIS AND 2021-04-23 Doctor [facility] 18:07:28 Unassigned, No [facility] Computed tomography angiography of 2021-04-07 [facility] abdomen and pelvis without then 00:00:00 [facility] with contrast Center LIPASE 2021-04-03 Francisco J Szymanski of 02:50:00 [facility] COMP. METABOLIC PANEL ([id number]) 2021-04-03 Francisco J Szymanski Un iversity of 02:50:00 [facility] CBC WITH DIFF 2021-04-03 Francisco J Szymanski [place] of 02:50:00 [facility] POCT TEST 2021-04-03 Francisco J Szymanski [place] o f 02:34:00 [facility] URINALYSIS 2021-04-03 Francisco J Szymanski [place] of 02:29:00 [facility] CONSENT/REFUSAL FOR DIAGNOSIS AND 2021-04-03 [facility] 02:10:05 Unassigned, No [facility] BASIC METABOLIC PANEL (NA, K, CL, 2021-03-28 [facility] CO2, GLUCOSE, BUN, CREATININE, CA) 15:07:00 [facility] CBC WITHOUT DIFF 2021-03-28 [facility] 09:37:00 [facility] CT ABDOMEN PELVIS W CONTRAST 2021-03-28 Ronald King Uni versity of 04:31:23 [facility] POCT TEST 2021-03-28 Ronald King o f 02:04:00 [facility] LIPASE 2021-03-28 Ronald King of 01:58:00 [facility] TROPONIN I 2021-03-28 Ronald King of 01:58:00 [facility] COMP. METABOLIC PANEL ([id number]) 2021-03-28 Ronald King Un iversity of 01:58:00 [facility] CBC WITH DIFF 2021-03-28 Ronald King of 01:58:00 [facility] PROTHROMBIN TIME / INR 2021-03-28 Ronald Kingit y of 01:58:00 [facility] ACTIVATED PARTIAL THRMPLAS ALTAGRACIA 2021-03-28 Ronald King [facility] of 01:58:00 [facility] URINALYSIS 2021-03-28 Ronald King [place] [facility] 01:58:00 [facility] N-TERMINAL PRO-BNP 2021-03-28 Ronald King [place] [facility] 01:58:00 [facility] COVID-19 (ID NOW RAPID TESTING) 2021-03-28 Ronald King [place] [facility] 01:58:00 [facility] LAB ONLY COVID INTERPRETATION 2021-03-28 Ronald King Un iversity of 01:58:00 [facility] URINE DRUG (IMMUNOASSAY) - 2021-03-[address] [facility] COMPREHENSIVE DRUG SCREEN W/O 01:58:00 [place] [facility] LACTIC ACID WHOLE BLOOD 2021-03-28 Ronald King [facility] ty of 01:57:00 [facility] EKG-12 LEAD 2021-03-[address] [facility] of 01:36:43 [facility] CONSENT/REFUSAL FOR DIAGNOSIS AND 2021-03-28 [facility] 01:17:45 Unassigned, No [facility] HC COMPLETE BLD COUNT W/AUTO DIFF 2021-03-22 Isabel Santacruz 02:34:00 [facility] COMPREHENSIVE METABOLIC PANEL 2021-03-22 Isabel Santacruz thodist 02:34:00 [facility] LIPASE LEVEL 2021-03-22 Isabel Santacruz Sikh 02:34:00 [facility] HCG QUALITATIVE, SERUM SCREEN 2021-03-22 Isabel Santacruz thodist 02:34:00 [facility] ESTIMATED GFR 2021-03-22 Isabel Santacruz Sikh 02:34:00 [facility] Computed tomography of abdomen and 2021-03-11 [facility] pelvis with contrast 00:00:00 [facility] [id number] 2021-03-07 [facility] 00:00:00 Medical Center [id number] 2021-03-07 [facility] 00:00:00 Medical Center [id number] 2021-03-07 [facility] 00:00:00 Medical Center LIPASE 2021-03-01 Navjot Jaimes [place] of 21:47:00 [facility] COMP. METABOLIC PANEL ([id number]) 2021-03-01 Navjot Jaimes Un iversity of 21:47:00 [facility] CBC WITH DIFF 2021-03-01 Navjot Jaimes [facility] 21:47:00 [facility] URINALYSIS 2021-03-01 Navjot Jaimes [facility] 19:09:00 [facility] CONSENT/REFUSAL FOR DIAGNOSIS AND 2021-03-01 Doctor [facility] 18:39:20 Unassigned, No [facility] HC COMPLETE BLD COUNT W/AUTO DIFF 2021-02-05 Kesha Arora 02:02:00 [facility] COMPREHENSIVE METABOLIC PANEL 2021-02-05 Kimberly Arora thodist 02:02:00 Hospital LIPASE LEVEL 2021-02-05 Kimberly Arora 02:02:00 [facility] HCG QUALITATIVE, SERUM SCREEN 2021-02-05 Kimberly Arora thodist 02:02:00 Hospital URINALYSIS SCREEN AND MICROSCOPY, 2021-02-05 Kesha Arora WITH REFLEX TO CULTURE 02:02:00 Hospital ESTIMATED GFR 2021-02-05 Kimberly Arora 02:02:00 Hospital URINE CULTURE 2021-02-05 Kimberly Arora 02:00:00 [facility] COMPREHENSIVE METABOLIC PANEL 2021-02-02 Kimberly Arora thodist 18:50:00 Hospital TROPONIN 2021-02-02 Kimberly Arora 18:50:00 Hospital CREATINE KINASE, TOTAL (CPK) 2021-02-02 Kimberly Arora hodist 18:50:00 Hospital ESTIMATED GFR 2021-02-02 Kimberly Arora 18:50:00 Hospital HC COMPLETE BLD COUNT W/AUTO DIFF 2021-02-02 Kesha Aroraist 18:50:00 Hospital LACTIC ACID LEVEL, SEPSIS - NOW 2021-02-02 Kimberly Arora AND REPEAT 2X EVERY 3 HOURS 17:20:00 Hosp ital ECG 12-LEAD 2021-02-02 Kimberly Arora 16:55:[address] [facility] CT ABDOMEN PELVIS W CONTRAST 2021-01-31 Nolan Esquivel Met hodist 20:15:35 [facility] URINE CULTURE 2021-01-31 Nolan Esquivel Sikh 18:15:00 [facility] HC COMPLETE BLD COUNT W/AUTO DIFF 2021-01-31 Nolan Esquivel 18:15:00 [facility] COMPREHENSIVE METABOLIC PANEL 2021-01-31 Nolan Esquivel thodist 18:15:00 [facility] LIPASE LEVEL 2021-01-31 Nolan Esquivel 18:15:00 [facility] URINALYSIS SCREEN AND MICROSCOPY, 2021-01-31 Nolan Esquivel WITH REFLEX TO CULTURE 18:15:00 [facility] HCG QUALITATIVE, URINE SCREEN 2021-01-31 Nolan Esquivel thodist 18:15:00 [facility] ESTIMATED GFR 2021-01-31 Nolan Esquivel 18:15:00 [facility] HEPATIC FUNCTION PANEL 2021-01-31 Nolan Esquivel 18:15:00 [facility] SMEAR REVIEW 2021-01-31 Nolan Esquivel 18:15:00 [facility] HB ABO GROUPING 2021-01-29 Ronald King of 01:35:00 [facility] ACTIVATED PARTIAL THRMPLAS ALTAGRACIA 2021-01-29 Ronald King niversity of 00:37:00 [facility] LIPASE 2021-01-29 Ronald King of 00:36:00 [facility] COMP. METABOLIC PANEL ([id number]) 2021-01-29 Ronald King iversity of 00:36:00 [facility] CBC WITH DIFF 2021-01-29 Ronald King of 00:36:00 [facility] URINALYSIS 2021-01-29 Ronald King of 00:36:00 [facility] POCT TEST 2021-01-29 Ronald King o f 00:34:00 [facility] NOTICE OF PRIVACY PRACTICES 2021-01-[address] [facility] ersity of 00:28:51 Unassigned, No [facility] CONSENT/REFUSAL FOR DIAGNOSIS AND 2021-01-29 [place] of TREATMENT 00:25:43 Unassigned, No [facility] CT ABDOMEN PELVIS WO CONTRAST 2021-01-21 Ronald King iversity of 23:31:31 [facility] COVID-19 (ID NOW RAPID TESTING) 2021-01-21 Ronald King of 23:07:00 [facility] LIPASE 2021-01-21 Ronald King of 23:00:00 [facility] COMP. METABOLIC PANEL ([id number]) 2021-01-21 Ronald King Un iversity of 23:00:00 [facility] CBC WITH DIFF 2021-01-21 Ronald King of 23:00:00 [facility] PROTHROMBIN TIME / INR 2021-01-21 Ronald Kingit y of 22:46:00 [facility] ACTIVATED PARTIAL THRMPLAS ALTAGRACIA 2021-01-21 Ronald King U niversity of 22:46:00 [facility] POCT TEST 2021-01-21 Ronald King o f 22:38:00 [facility] URINALYSIS 2021-01-21 Ronald King of 21:56:00 [facility] CONSENT/REFUSAL FOR DIAGNOSIS AND 2021-01-21 [facility] 21:28:02 Unassigned, No [facility] TEST, SERUM 2021-01-12 Anuja Martinez [place] of 23:08:00 [facility] CT ABDOMEN PELVIS W CONTRAST 2021-01-12 Anuja Martinez Uni versity of 22:23:20 [facility] LIPASE 2021-01-12 Juan [facility] of 21:55:00 [facility] COMP. METABOLIC PANEL ([id number]) 2021-01-12 Anuja Martinez Un iversity of 21:55:00 [facility] TOTAL BETA HCG ASSAY 2021-01-12 Anuja Martinez [place] of 21:55:00 [facility] CBC WITH DIFF 2021-01-12 Anuja Martinez [place] of 21:55:00 [facility] URINALYSIS 2021-01-12 Juan [facility] of 21:55:00 [facility] ASSIGNMENT OF BENEFITS 2021-01-12 Doctor [facility] y of 21:01:46 Unassigned, No [facility] CONSENT/REFUSAL FOR DIAGNOSIS AND 2021-01-12 [facility] 19:01:19 Unassigned, No [facility] COMP. METABOLIC PANEL ([id number]) 2021-01-02 Vanessa Gilbert U niversity of 19:29:00 [facility] URINALYSIS 2021-01-02 Vanessa Gilbert University of 19:29:00 [facility] XR LUMBAR SPINE 2 VW 2021-01-02 Vanessa Gilbert [facility] 19:18:30 [facility] XR PELVIS <3 VW 2021-01-02 Vanessa Gilbert [facility] 19:18:30 [facility] POCT TEST 2021-01-02 Vanessa Gilbert [facility] 19:10:00 [facility] COVID-19 (ID NOW RAPID TESTING) 2021-01-02 Vanessa Gilbert [facility] 18:18:00 [facility] NOTICE OF PRIVACY PRACTICES 2021-01-02 [facility] of 18:05:07 Unassigned, No [facility] CONSENT/REFUSAL FOR DIAGNOSIS AND 2021-01-02 [facility] 17:45:11 Unassigned, No [facility] [id number] 2020-10-24 [facility] 00:00:00 [facility] [id number] 2020-10-23 [facility] 00:00:00 [facility] [id number] 2020-10-23 [facility] 00:00:00 [facility] [id number] 2020-10-23 [facility] 00:00:00 [facility] [id number] 2020-10-23 [facility] 00:00:00 [facility] POCT TEST 2020-10-14 [place] [facility] o f 03:35:00 [facility] CONSENT/REFUSAL FOR DIAGNOSIS AND 2020-10-14 [facility] 00:53:56 Unassigned, No [facility] HC COMPLETE BLD COUNT W/AUTO DIFF 2020-10-11 Abdirahman Barrera 05:55:00 Hospital BASIC METABOLIC PANEL 2020-10-11 Abdirahman Barrera 05:55:00 Hospital HCG QUALITATIVE, SERUM SCREEN 2020-10-11 Abdirahman Barrera ethodist 05:55:00 Hospital ESTIMATED GFR 2020-10-11 Abdirahman Barrera 05:55:00 Hospital POCT TEST 2020-10-10 Vanessa Gilbert [facility] 05:24:00 [facility] ASSIGNMENT OF BENEFITS 2020-10-10 [facility] 01:35:46 Unassigned, No [facility] CONSENT/REFUSAL FOR DIAGNOSIS AND 2020-10-10 [facility] 01:31:04 Unassigned, No [facility] CT HEAD WO CONTRAST 2020-10-09 Michael Jenkins [facility] 01:56:17 [facility] CONSENT/REFUSAL FOR DIAGNOSIS AND 2020-10-09 [facility] 00:52:00 Unassigned, No [facility] CONSENT/REFUSAL FOR DIAGNOSIS AND 2020-10-07 [facility] 01:23:21 Unassigned, No [facility] IMMOBILIZATION RT LOWER LEG SPLINT 2020-04-22 [facility] 00:00:00 Center XR FOOT 3+ VW RIGHT 2020-01-06 [facility] o f 03:05:27 [facility] XR ANKLE 3+ VW RIGHT 2020-01-06 [facility] of 03:04:38 [facility] XR TIBIA FIBULA 2 VW RIGHT 2020-01-06 [facility] rsity of 03:04:03 [facility] XR ANKLE 3+ VW RIGHT 2019-12-24 [facility] System of 18:52:14 [facility] XR FOOT 3+ VW RIGHT 2019-12-24 Health System o f 18:52:14 [facility] CONSENT/REFUSAL FOR DIAGNOSIS AND 2019-12-24 [facility] 17:56:04 Unassigned, No [facility] URINALYSIS 2019-11-20 [facility] 04:33:00 [facility] LIPASE 2019-11-20 [facility] 03:05:00 [facility] HEPATIC FUNCTION PANEL ([id number]) 2019-11-20 [facility] of (ALB,T.PRO,BILI 03:05:00 [facility] T,BU/BC,ALT,AST,ALK PHOS) Branch BASIC METABOLIC PANEL (NA, K, CL, 2019-11-20 [facility] CO2, GLUCOSE, BUN, CREATININE, CA) 03:05:00 [facility] CBC WITH DIFFERENTIAL 2019-11-20 [facility] y of 03:05:00 [facility] CONSENT/REFUSAL FOR DIAGNOSIS AND 2019-11-20 [facility] 02:22:47 Unassigned, No [facility] NOTICE OF PRIVACY PRACTICES 2019-11-16 Doctor Univ ersity of 21:34:07 Unassigned, No [facility] CONSENT/REFUSAL FOR DIAGNOSIS AND 2019-11-16 Doctor [facility] 21:06:41 Unassigned, No [facility] CT HEAD WO CONTRAST 2019-09-22 Francisco J Szymanski [place] o f 02:16:33 [facility] XR ABDOMEN 2 VW 2019-09-22 Francisco J Szymanski of 00:45:04 [facility] LIPASE 2019-09-21 Francisco J Szymanski [place] of 23:09:00 [facility] MAGNESIUM 2019-09-21 Francisco J Szymanski [place] of 23:09:00 [facility] COMP. METABOLIC PANEL ([id number]) 2019-09-21 Francisco J Szymanski Un iversity of 23:09:00 [facility] CBC WITH DIFFERENTIAL 2019-09-21 Francisco J Szymanski 23:09:00 [facility] URINALYSIS 2019-09-21 Francisco J Szymanski of 23:09:00 [facility] ADC / LCC - DRUG SCREEN TRIAGE 2019-09-21 Francisco J Szymanski U niversity of 23:09:00 [facility] EKG-12 LEAD 2019-09-21 Francisco J Szymanski [place] of 23:07:15 [facility] CONSENT/REFUSAL FOR DIAGNOSIS AND 2019-09-21 [facility] 21:59:28 Unassigned, No [facility] [id number] 2019-05-14 [facility] 00:00:00 [facility] Esophagogastroduodenoscopy 2018-08-28 Steffi Sanches 05:00:00 Cholecystectomy 2018-07-10 [facility] 06:00:00 Bypass of stomach [facility] Shreya nn Operation [facility] Stomach operation<sup>1</sup> Me morial Myron Tubal ligation [facility] Plan of Care Planned Activity Planned Date Details Comments Source Future Scheduled Test 2022-01-17 HEPATITIS B VACCINES [facility] 03:40:03 (1 of 3 - 3-dose Hospital series) [code = HEPATITIS B VACCINES (1 of 3 - 3-dose series)] Future Scheduled Test 2022-01-17 Pneumococcal Vaccine: Sikh 03:40:03 Pediatrics (0 to 5 Hospital Years) and At-Risk Patients (6 to 64 Years) (1 - PCV) [code = Pneumococcal Vaccine: Pediatrics (0 to 5 Years) and At-Risk Patients (6 to 64 Years) (1 - PCV)] Future Scheduled Test 2022-01-17 Hepatitis C screening Sikh 03:40:03 (procedure) [code = Hospital [id number]] Future Scheduled Test 2022-01-17 Screening for [facility] 03:40:03 malignant neoplasm of Hospit al cervix (procedure) [code = 908015757] Future Scheduled Test 2022-01-17 BREAST CANCER [facility] 03:40:03 SCREENING [code = Hospital BREAST CANCER SCREENING] Future Scheduled Test 2022-01-17 COLONOSCOPY SCREENING Sikh 03:40:03 [code = COLONOSCOPY Hospital SCREENING] Future Scheduled Test 2022-01-17 INFLUENZA VACCINE M ethodist 03:40:03 [code = INFLUENZA Hospital VACCINE] Future Scheduled Test 2022-01-17 INFLUENZA VACCINE M ethodist 03:40:03 [code = INFLUENZA Hospital VACCINE] Future Scheduled Test 2022-01-17 HEPATITIS B VACCINES Sikh 03:40:03 (1 of 3 - 3-dose Hospital series) [code = HEPATITIS B VACCINES (1 of 3 - 3-dose series)] Future Scheduled Test 2022-01-17 Pneumococcal Vaccine: Sikh 03:40:03 Pediatrics (0 to 5 Hospital Years) and At-Risk Patients (6 to 64 Years) (1 - PCV) [code = Pneumococcal Vaccine: Pediatrics (0 to 5 Years) and At-Risk Patients (6 to 64 Years) (1 - PCV)] Future Scheduled Test 2022-01-17 Hepatitis C screening Sikh 03:40:03 (procedure) [code = Hospital [id number]] Future Scheduled Test 2022-01-17 Screening for [facility] 03:40:03 malignant neoplasm of Hospit al cervix (procedure) [code = 103600468] Future Scheduled Test 2022-01-17 BREAST CANCER [facility] 03:40:03 SCREENING [code = Hospital BREAST CANCER SCREENING] Future Scheduled Test 2022-01-17 COLONOSCOPY SCREENING [facility]ikh 03:40:03 [code = COLONOSCOPY Hospital SCREENING] Future Scheduled Test 2022-01-17 INFLUENZA VACCINE (#1) [facility] 00:00:00 [code = INFLUENZA Medical Ce nter VACCINE (#1)] Future Scheduled Test 2022-01-17 INFLUENZA VACCINE (#1) [facility] 00:00:00 [code = INFLUENZA Medical Ce nter VACCINE (#1)] Future Scheduled Test 2022-01-17 INFLUENZA VACCINE (#1) [facility] 00:00:00 [code = INFLUENZA Medical Ce nter VACCINE (#1)] Future Scheduled Test 2022-01-17 INFLUENZA VACCINE (#1) [facility] 00:00:00 [code = INFLUENZA Medical Ce nter VACCINE (#1)] Future Scheduled Test 2022-01-11 HEPATITIS B VACCINES [facility] 00:51:07 (1 of 3 - 3-dose Hospital series) [code = HEPATITIS B VACCINES (1 of 3 - 3-dose series)] Future Scheduled Test 2022-01-11 Pneumococcal Vaccine: Sikh 00:51:07 Pediatrics (0 to 5 Hospital Years) and At-Risk Patients (6 to 64 Years) (1 - PCV) [code = Pneumococcal Vaccine: Pediatrics (0 to 5 Years) and At-Risk Patients (6 to 64 Years) (1 - PCV)] Future Scheduled Test 2022-01-11 Hepatitis C screening [facility]ikh 00:51:07 (procedure) [code = Hospital [id number]] Future Scheduled Test 2022-01-11 Screening for [facility] 00:51:07 malignant neoplasm of Hospit al cervix (procedure) [code = 862042832] Future Scheduled Test 2022-01-11 BREAST CANCER [facility] 00:51:07 SCREENING [code = Hospital BREAST CANCER SCREENING] Future Scheduled Test 2022-01-11 COLONOSCOPY SCREENING [facility] 00:51:07 [code = COLONOSCOPY Hospital SCREENING] Future Scheduled Test 2022-01-11 INFLUENZA VACCINE M ethodist 00:51:07 [code = INFLUENZA Hospital VACCINE] Future Scheduled Test 2021-12-13 Pneumococcal Vaccine: [facility]ikh 07:04:08 Pediatrics (0 to 5 Hospital Years) and At-Risk Patients (6 to 64 Years) (1 - PCV) [code = Pneumococcal Vaccine: Pediatrics (0 to 5 Years) and At-Risk Patients (6 to 64 Years) (1 - PCV)] Future Scheduled Test 2021-12-13 Hepatitis C screening [facility] 07:04:08 (procedure) [code = Hospital [id number]] Future Scheduled Test 2021-12-13 Screening for [facility] 07:04:08 malignant neoplasm of Hospit al cervix (procedure) [code = 935601212] Future Scheduled Test 2021-12-13 INFLUENZA VACCINE M ethodist 07:04:08 [code = INFLUENZA Hospital VACCINE] Future Scheduled Test 2021-08-13 Hepatitis C screening [facility] 12:13:08 (procedure) [code = Hospital 489190327] Future Scheduled Test 2021-08-13 Screening for [facility] 12:13:08 malignant neoplasm of Hospit al cervix (procedure) [code = 714474785] Future Scheduled Test 2021-08-13 INFLUENZA VACCINE M ethodist 12:13:08 [code = INFLUENZA Hospital VACCINE] Future Scheduled Test 2021-05-[address] [facility] 00:00:00 (12+) [code = Medical Center DEPRESSION SCREENING (12+)] Future Scheduled Test 2021-05-[address] [facility] 00:00:00 (12+) [code = Medical Center DEPRESSION SCREENING (12+)] Future Scheduled Test 2021-05-[address] [facility] 00:00:00 (12+) [code = Medical Center DEPRESSION SCREENING (12+)] Future Scheduled Test 2021-05-[address] [facility] 00:00:00 (12+) [code = Medical Center DEPRESSION SCREENING (12+)] Future Scheduled Test 2021-01-[address] [facility] 00:00:00 (procedure) [code = [facility] [id number]] Future Scheduled Test 2021-01-[address] [facility] 00:00:00 (procedure) [code = [facility] 08164803] Future Scheduled Test 2021-01-[address] [facility] 00:00:00 (procedure) [code = [facility] 58176362] Future Scheduled Test 2021-01-[address] [facility] 00:00:00 (procedure) [code = [facility] 54416809] Future Scheduled Test 2019-04-[address] [facility] 00:00:00 WELLNESS (YEAR 2 or Medical Center FIRST YEAR if no IPPE) [code = MEDICARE ANNUAL WELLNESS (YEAR 2 or FIRST YEAR if no IPPE)] Future Scheduled Test 2019-04-[address] [facility] 00:00:00 WELLNESS (YEAR 2 or Medical Center FIRST YEAR if no IPPE) [code = MEDICARE ANNUAL WELLNESS (YEAR 2 or FIRST YEAR if no IPPE)] Future Scheduled Test 2019-04-[address] [facility] 00:00:00 WELLNESS (YEAR 2 or Medical Center FIRST YEAR if no IPPE) [code = MEDICARE ANNUAL WELLNESS (YEAR 2 or FIRST YEAR if no IPPE)] Future Scheduled Test 2019-04-[address] [facility] 00:00:00 WELLNESS (YEAR 2 or Medical Center FIRST YEAR if no IPPE) [code = MEDICARE ANNUAL WELLNESS (YEAR 2 or FIRST YEAR if no IPPE)] Future Scheduled Test 1997-01-23 [facility] Center cervix (procedure) [code = 256368583] Future Scheduled Test 1997-01-23 Scre[facility] 00:[facility]:00 [facility] of [facility] Center cervix (procedure) [code = 123920379] Future Scheduled Test 1997-01-23 Screening [facility] 00:00:00 malignant neoplasm of [facility] Center cervix (procedure) [code = 882373162] Future Scheduled Test 1997-01-23 [facility] 00:[facility]:00 malignant neoplasm of [facility]ica [facility] Center cervix (procedure) [code = 641078872] Future Scheduled Test 1995-01-23 DTAP/TDAP/TD VACCINES [facility] 00:00:00 (1 - Tdap) [code = Medical C enter DTAP/TDAP/TD VACCINES (1 - Tdap)] Future Scheduled Test 1995-01-23 DTAP/TDAP/TD VACCINES [facility] 00:00:00 (1 - Tdap) [code = Medical C enter DTAP/TDAP/TD VACCINES (1 - Tdap)] Future Scheduled Test 1995-01-23 DTAP/TDAP/TD VACCINES [facility] 00:00:00 (1 - Tdap) [code = Medical C enter DTAP/TDAP/TD VACCINES (1 - Tdap)] Future Scheduled Test 1995-01-23 DTAP/TDAP/TD VACCINES [facility] 00:00:00 (1 - Tdap) [code = Medical C enter DTAP/TDAP/TD VACCINES (1 - Tdap)] Future Scheduled Test 1994-01-23 HEPATITIS C SCREENING [facility] 00:00:00 [code = HEPATITIS C Medical Center SCREENING] Future Scheduled Test 1994-01-23 HEPATITIS C SCREENING [facility] 00:00:00 [code = HEPATITIS C Medical Center SCREENING] Future Scheduled Test 1994-01-23 HEPATITIS C SCREENING [facility] 00:00:00 [code = HEPATITIS C Medical Center SCREENING] Future Scheduled Test 1994-01-23 HEPATITIS C SCREENING [facility] 00:00:00 [code = HEPATITIS C Medical Center SCREENING] Future Scheduled Test 1982-01-[address] [facility] 00:00:00 0-64 YRS (1 - PCV) Medical C enter [code = PNEUMOCOCCAL VACCINE 0-64 YRS (1 - PCV)] Future Scheduled Test 1982-01-[address] [facility] 00:00:00 0-64 YRS (1 - PCV) Medical C enter [code = PNEUMOCOCCAL VACCINE 0-64 YRS (1 - PCV)] Future Scheduled Test 1982-01-[address] [facility] 00:00:00 0-64 YRS (1 - PCV) Medical C enter [code = PNEUMOCOCCAL VACCINE 0-64 YRS (1 - PCV)] Future Scheduled Test 1982-01-[address] [facility] 00:00:00 0-64 YRS (1 - PCV) Medical C enter [code = PNEUMOCOCCAL VACCINE 0-64 YRS (1 - PCV)] Future Scheduled Test [address] [facility] 00:00:00 (combo) [code = CT Medical C enter Colonography (combo)] Future Scheduled Test 1976 [facility] malignant neoplasm of [facility]ica [facility] Center colon (procedure) [code = 746558744] Future Scheduled Test 1976 [facility] 00:00:00 malignant neoplasm of [facility] Center colon (procedure) [code = 677266311] Future Scheduled Test 1976 [facility] 00:00:00 malignant neoplasm of [facility] Center colon (procedure) [code = 025778961] Future Scheduled Test 1976 [facility] 00:00:00 malignant neoplasm of [facility] Center colon (procedure) [code = 806235937] Future Scheduled Test 1976 Sigmoidoscopy [code = [facility] 00:00:00 Sigmoidoscopy] Medical Cente r Future Scheduled Test [address] [facility] 00:00:00 (combo) [code = CT Medical C enter Colonography (combo)] Future Scheduled Test 1976 [facility] 00:00:00 [facility] of [facility] Center colon (procedure) [code = 255234978] Future Scheduled Test 1976 [facility] 00:00:00 malignant neoplasm of [facility] Center colon (procedure) [code = 970860750] Future Scheduled Test 1976 [facility] 00:00:00 malignant [facility]oplasm of [facility] Center colon (procedure) [code = 106451658] Future Scheduled Test 1976 [facility] 00:00:00 malignant neoplasm of [facility] Center colon (procedure) [code = 066263079] Future Scheduled Test 1976 Sigmoidoscopy [code = [facility] 00:00:00 Sigmoidoscopy] Norma kaplan Future Scheduled Test [address] [facility] 00:00:00 (combo) [code = CT Medical C enter Colonography (combo)] Future Scheduled Test 1976 [facility] 00:00:00 malignant neoplasm of [facility] Center colon (procedure) [code = 381394055] Future Scheduled Test 1976 [facility] 00:00:00 malignant neoplasm of [facility] Center colon (procedure) [code = 962286503] Future Scheduled Test 1976 [facility] 00:00:00 malignant neoplasm of [facility] Center colon (procedure) [code = 767854719] Future Scheduled Test 1976 [facility] 00:00:00 malignant neoplasm of [facility] Center colon (procedure) [code = 434490866] Future Scheduled Test 1976 Sigmoidoscopy [code = [facility] 00:00:00 Sigmoidoscopy] Norma kaplan Future Scheduled Test [address] [facility] 00:00:00 (combo) [code = CT Medical C enter Colonography (combo)] Future Scheduled Test 1976 [facility]:00 [facility] (procedure) [code = 827225426] Future Scheduled Test 1976 [facility] 00:[facility]:00 [facility]oplasm of [facility] Center colon (procedure) [code = 697958756] Future Scheduled Test 1976 [facility] 00:00:00 [facility] of [facility] colon (procedure) [code = 162038777] Future Scheduled Test 1976 [facility] 00:[facility]:00 [facility] of [facility] colon (procedure) [code = 054346412] Future Scheduled Test 1976 Sigmoidoscopy [code = [facility] 00:00:00 Sigmoidoscopy] Medical Cente r Instructions Abdominal [facility] - [facility] Instructions Fractures - [facility] ([place]) Patient [facility] Instructions Folliculitis [facility] Patient [facility] Instructions Fractures - Metatarsal [facility] S t [facility] Patient [facility] Instructions Fractures [facility] Patient [facility] Instructions Chronic Pain [facility] Instructions Vomiting - Adult [facility] St ke s [facility] Instructions Vomiting - Adult [facility] St ke s Patient [facility] Instructions Contusion [facility] Instructions Crutch Use [facility] Instructions Urinary Tract [facility] Infection, Adult, Patient Me dical [facility] Instructions Food Choices to Help [facility] Relieve Diarrhea, Patient Me dical Adult Center Instructions Abdominal Pain, Adult [facility] Instructions Chronic Pain, Adult [facility] Patient [facility] Encounters Start End Encounter Admission Attending Care Care Encounter Source Date/Time Date/Time Type Type Clinicians Facility Department ID 2021-09-10 Inpatient [facility] [id number] [facility] 22:08:00 88 2021-06-22 Inpatient [facility] [id number] [facility] 18:00:00 89 2021-04-[address] [facility] [id number] [facility] 20[facility]35:00 -[id number] [facility] 2021-03-20 Emergency [facility] [id number] [facility]19 [facility] [id number] Univers 23:19:16 ity of [facility] 2021-03-19 Emergency [facility] [id number] Univers 22:07:06 ity of [facility] 2021-03-19 Emergency [facility] [id number] Univers 20:34:41 ity of [facility] 2021-03-19 Emergency [facility] [id number] Univers 18:37:35 ity of [facility] 2021-03-19 Emergency [facility] [id number] Univers 16:09:08 ity of [facility] 2021-03-18 Emergency [facility] [id number] Univers 22:15:14 ity of [facility] 2021-03-18 Emergency [facility] [id number] Univers 22:05:16 ity of [facility] 2021-03-18 Emergency [facility] [id number] Univers 21:01:33 ity of [facility] 2021-03-18 Emergency [facility] [id number] Univers 20:45:23 ity of [facility] 2021-03-18 Emergency [facility] [id number] Univers 20:38:55 ity of [facility] 2021-03-16 Emergency [facility] [id number] Univers 13:29:23 ity of [facility] 2021-03-16 Emergency [facility] [id number] Univers 11:14:48 ity of [facility] 2021-03-16 Emergency [facility] [id number] Univers 04:39:40 ity of [facility] 2021-03-16 Emergency [facility] [id number] Univers 03:49:00 ity of [facility] 2021-03-15 Inpatient HC[facility] PET[facility] [id number] [facility] 23:15:00 [id number] [facility] 2021-03-[address] [facility] [id number] [facility] 21:28:00 -[id number] [facility] 2021-03-[address] [facility] [id number] [facility] 19:52:00 -[id number] [facility] 2021-03-04 Inpatient [facility] PET[facility] [id number] [facility] 21:17:00 [id number] [facility] 2021-02-06 Inpatient [facility] [id number] [facility] 21:37:00 [id number] [facility] 2021-01-[address] [facility] [id number] [facility] 12:53:00 -[id number] [facility] 2021-01-[address] [facility] [id number] [facility] 08:48:00 -[id number] [facility] 2020-10-16 Inpatient [facility] PET[facility] [id number] [facility] 18:24:00 [id number] [facility] 2020-10-15 Inpatient [facility] PET[facility] [id number] [facility] 20:55:00 [id number] [facility] 2020-10-10 Inpatient [facility] BR[facility] [id number] [facility] 22:05:00 [id number] [facility] 2020-09-13 Inpatient [facility]N PET[facility] [id number] [facility] 19:47:00 [id number] [facility] 2020-08-13 Inpatient [facility] PET[facility] [id number] [facility] 20:02:00 [id number] [facility] 2020-06-26 Inpatient [facility] PET[facility] [id number] [facility] 20:05:00 [id number] [facility] 2020-05-07 Inpatient [facility] PET[facility] [id number] [facility] 20:43:00 [facility] 2020-05-03 Inpatient [facility] PET[facility] [id number] [facility] 18:31:00 [id number] [facility] 2020-02-05 Inpatient [facility] PET[facility] [id number] [facility] 19:52:00 [id number] [facility] 2020-01-[address] [facility] [id number] [facility] 12:52:00 [facility] 2020-01-[address] [facility] [id number] [facility] 13:41:00 -[id number] [facility] 2019-12-[address] [facility] [id number] [facility] 04:08:00 -[id number] [facility] 2019-12-26 Inpatient HCABM BR[facility] [id number] [facility] 22:09:[address] [place] [address] 2019-12-[address] [facility] [id number] [facility] 21:00:00 -[id number] [facility] 2019-12-[address] [facility] [id number] [facility] 15:36:00 -[id number] [facility] 2019-12-[address] [facility] [id number] [facility] 02:23:00 -[id number] [facility] 2019-12-[address] [facility] [id number] [facility] 19:27:00 -[id number] [facility] 2019-12-06 Inpatient [facility] [id number] [facility] 00:53:00 [facility] 2019-12-01 Inpatient HC[facility]N PET[facility] [id number] [facility] 02:59:00 [id number] [facility] 2019-11-21 Inpatient [facility] PET[facility] [id number] [facility] 20:25:00 [facility] 2019-11-20 Inpatient [facility] [id number] [facility] 02:46:00 [facility] 2019-09-05 Inpatient HCAMN PETRA [id number] [facility] 04:35:00 [id number] [facility] 2019-09-04 Inpatient [facility] BR[facility] [id number] [facility] 23:03:00 [id number] [facility] 2022-01-27 2022-01-27 Emergency EM Brandon Hays HCAPM BRANDON LA00 [id number] [facility] 15:12:00 15:53:00 42 [facility] 2022-01-25 2022-01-25 Paul Olmos 1.2.840.114 [id number] Univers 00:00:00 00:00:00 (Out) JEFERSON 350.1.13.10 [facility] 4.2.7.2.686 Biju as [phone] [place] [address] [place] 2022-01-18 2022-01-18 Emergency E [place] [id number] LAYLA 11:38:00 16:24:00 CATHY 2022-01-13 2022-01-13 Emergency EM Ezekiel HCACL PERS [id number] [facility] 20:02:00 22:13:00 Andreia 90 [facility] 2022-01-08 2022-01-08 Emergency Emergency Skefos, [facility] [id number] [facility] 00:57:00 04:56:00 Chrystan 54 2022-01-08 2022-01-08 Emergency Emergency Skefos, [facility] [id number] [facility] 00:57:00 00:57:00 Chrystan 54 2022-01-03 2022-01-03 Outpatient [facility] [id number] [facility] 21:36:00 21:50:00 Patients Patients [address] [place] [address] 2022-01-03 2022-01-03 Departed [facility] [id number] 3-0 St. 21:36:00 21:50:00 Emergency Patients [id number] [facility] [id number] Pa tient [id number] [facility] 2022-01-03 2022-01-[address] [facility] [id number] 20:36:00 20:50:00 -[id number] [facility] 2022-01-02 2022-01-03 Emergency Emergency E/R [facility] [id number] [facility] 23:43:00 00:05:00 Physician, 12 E 2022-01-02 2022-01-02 Emergency E [facility] [id number] [facility] 18:43:00 22:30:00 [facility] 2021-12-31 2021-12-31 Emergency [facility] [id number] [facility] 02:10:02 05:10:00 r Myron 06 l [facility] 2021-12-31 2021-12-31 Emergency ER Obilom, [facility] [id number] 00:25:00 01:26:00 [facility] 2021-12-31 2021-12-31 Emergency ER OBILOM, [facility] Emergency [id number] [facility] 00:25:00 01:26:00 DANYELL 2021-12-31 2021-12-31 Emergency Obilom, [facility] [id number] 00:25:00 01:26:00 Danyell [facility] 2021-12-30 2021-12-31 Emergency E BRISEIDA, BL MHBL [id number] MHBL 21:10:00 00:10:00 ELVIN 2021-12-31 2021-12-31 Travel [facility] [id number] [facility] 00:00:00 00:00:00 [facility] 2021-12-31 2021-12-31 Travel [facility] [id number] [facility] 00:00:00 00:00:00 [facility] 2021-12-30 2021-12-30 Emergency EM Lucia, HCAPM BRANDON [id number] [facility] 15:20:00 20:40:[address] [facility] 2021-12-28 2021-12-28 Emergency [facility] [id number] [facility] 02:08:52 09:45:00 [facility] 05 l [facility] 2021-12-27 2021-12-28 Emergency E DARRENVA-A MHBL BL [id number] MHBL 21:08:00 04:45:00 JENNIFER APONTE 2021-12-19 2021-12-19 [facility] [id number] [id number] Univers 00:00:00 00:00:00 Baylee SPECIALTY 350.1.13.10 ity of CARE 4.2.7.2.686 [facility] AT [phone] [address] 2021-12-18 2021-12-18 Outpatient Rosaura [facility] [id number] Univers 09:15:00 09:15:00 [facility] [id number] [facility] 2021-12-18 2021-12-18 Outpatient Rosaura [facility] [id number] Univers 09:15:00 09:15:00 BAYLEE [facility] 2021-12-18 2021-12-18 [facility] [id number] Univers 00:00:00 00:00:00 [place]lee SPECIALTY 350.1.13.10 [place]2.686 [phone] [place] [address] [place] [address] 2021-12-08 2021-12-09 Emergency EM Benigno, HCAPM BRANDON [id number] [facility] 21:35:00 02:19:00 Tavon 19 [facility] 2021-12-08 2021-12-09 Emergency EM Benigno, HCAPM HCAPM [id number] [facility] 21:35:00 02:19:00 Tavon [id number] [facility] 2021-10-30 2021-10-30 Outpatient Rosaura [facility] [id number] Univers 10:30:00 10:30:00 BAYLEE [id number] [facility] 2021-10-25 2021-10-25 [facility] [id number] Univers 08:00:00 08:00:00 BAYLEE [id number] [facility] 2021-10-25 2021-10-25 [facility] [id number] Univers 08:00:00 08:00:00 [facility] 2021-10-24 2021-10-24 Telephone [facility] [phone] [id number] Univers 00:00:00 00:00:00 [place]lee SPECIALTY [id number] it[place] C[place] 4[phone] [place] HANOVERDarlyn [address] [place] [address] 2021-10-18 2021-10-18 Telephone [facility] [phone] [id number] Univers 00:00:00 00:00:00 [place]lee SPECIALTY [id number] ity [phone] [place] [address] [place] [address] 2021-10-17 2021-10-[address] [facility] [id number] [facility] 16:02:00 17:05:00 [facility] 2021-10-17 2021-10-17 Emergency ER RUIZ, SLE Emergency [id number] SLE 16:02:00 17:05:00 JOHN 2021-10-17 2021-10-17 Emergency Ruiz, [facility] [id number] 16:02:00 17:05:00 John Trinidad [facility] 2021-10-17 2021-10-17 Travel [facility] [id number] [facility] 00:00:00 00:00:00 [facility] 2021-10-17 2021-10-17 Travel [facility] [id number] [facility] 00:00:00 00:00:00 [facility] 2021-10-11 2021-10-12 Emergency [facility] [id number] Memoria 23:53:10 03:10:00 rosaura Sanches [address] [place] [address] 2021-10-11 2021-10-11 Emergency E SHLOMO, MHBL MHBL [id number] BL 18:53:00 22:10:00 DELILAH 2021-10-11 2021-10-11 Outpatient Benigno, HCACL LABO [id number] [facility] 00:25:00 00:25:00 Tavon 55 [facility] 2021-10-10 2021-10-10 Emergency EM Benigno, HCAPM BRANDON [id number] [facility] 18:13:00 22:50:00 Tavon 46 [facility] 2021-10-10 2021-10-10 Emergency EM Benigno, HCAPM HCAPM [id number] [facility] 18:13:00 22:50:00 Tavon [id number] [facility] 2021-09-24 2021-09-24 Orders Doctor TUAN 1.2.840.114 [id number] Univers 00:00:00 00:00:00 Only Unassigned, JEFERSON 350.1.13.10 ity of [place] [facility] 4.2.7.2.686 Biju as [phone] [place] [address] [place] 2021-09-19 2021-09-19 Emergency [facility] [id number] Memoria 16:23:00 22:50:00 rosaura Sanches [address] [place] [address] 2021-09-192021-09-19 Emergency E BECKY, MHBL MHBL [id number] MHBL 11:23:00 17:50:00 TOO 2021-09-19 2021-09-19 Emergency EM Brandon Hays HCAPM BRANDON LA00 [id number] [facility] 09:00:00 10:53:00 44 [facility] 2021-09-19 2021-09-19 Emergency EM Brandon Hays HCAPM HCAPM [id number] [facility] 09:00:00 10:53:00 [id number] [facility] 2021-09-14 2021-09-14 Emergency ER Alkhaiat, [facility] [id number] 12:09:00 17:01:00 [facility] 2021-09-14 2021-09-14 Emergency ER ALKHAIAT, [facility] Emergency [id number] SLE 12:09:00 17:01:00 [facility] 2021-09-14 2021-09-14 Emergency Alkhaiat, [facility] [id number] 12:09:00 17:01:00 [facility] 2021-09-14 2021-09-14 Travel [facility] [id number] [facility] 00:00:00 00:00:00 [facility] 2021-09-14 2021-09-14 Travel [facility] [id number] [facility] 00:00:00 00:00:00 [facility] 2021-09-12 2021-09-12 Departed [facility] [id number] e-[id number] St. 21:48:00 22:50:00 Emergency Patients [id number] [facility] [id number] Pa tient [address] 2021-09-12 2021-09-[address] [facility] [id number] 20:48:00 21:50:00 -[id number] [facility] 2021-09-12 2021-09-12 Outpatient [facility] [id number] [facility] 20:48:00 21:50:00 Patients Patients [address] [place] [address] 2021-09-10 2021-09-10 [facility] [id number] [facility] 22:08:00 22:08:00 88 2021-09-10 2021-09-10 Emergency E CHANTELL GASPAR [facility] [id number] [facility] 19:23:00 21:18:00 [facility] 2021-09-09 2021-09-10 Emergency [facility] [id number] Memoria 23:46:18 06:03:00 r Myron 02 [facility] 2021-09-09 2021-09-10 Emergency E HONORIO, MHBL MHBL [id number] MHBL 18:46:00 01:03:00 [place] 2021-09-03 2021-09-03 Emergency EM Brandon Hays HCAPM BRANDON LA00 [id number] [facility] 11:36:00 14:55:00 95 [facility] 2021-08-15 2021-08-15 Emergency EM Delvis, HCAPM BRANDON [id number] [facility] 17:33:00 20:16:00 Sindy 56 [facility] 2021-08-02 2021-08-03 Emergency EM Brandon Hays HCAPM BRANDON LA00 [id number] [facility] 22:49:00 01:25:00 58 [facility] 2021-08-03 2021-08-03 Outpatient Brandon Hays HCACL LABO [id number] [facility] 01:15:00 01:15:00 [id number] [facility] 2021-07-25 2021-07-25 Emergency [facility] [id number] Memoria 02:44:33 06:00:00 r Myron 01 l [facility] 2021-07-24 2021-07-25 Emergency E BROWNING, MHBL MHBL [id number] MHBL 20:44:00 00:00:00 REEVA 2021-07-22 2021-07-23 Emergency EM Rob, HCAPM BRANDON [id number] [facility] 20:23:00 03:25:00 Chun 27 [facility] 2021-07-20 2021-07-21 Emergency Schemidt, 1.2.840.1 [id number] Methodi 23:18:00 01:08:[address] Katharine 3.430.2.7 Hospit a .3.780292 l .8 2021-07-20 2021-07-21 Emergency Schemidt, 1.2.840.1 [id number] Methodi 23:18:00 01:08:[address] Katharine 3.430.2.7 Hospit a .3.463817 l .8 2021-07-20 2021-07-20 Emergency E CHASITY CHANTELL [facility] 1001 [id number] [facility] 19:34:00 22:41:00 [facility] 2021-07-20 2021-07-20 Travel 1.2.840.1 1.2.935.314 3046 [id number] Methodi 00:00:00 00:00:[address] 3.430.2.7 0.2.7.3.698 Ho spita .3.942588 084.8 l .8 2021-07-20 2021-07-20 Travel 1.2.840.1 1.2.016.219 8474 [id number] Methodi 00:00:00 00:00:[address] 3.430.2.7 0.2.7.3.698 Ho spita .3.349555 084.8 l .8 2021-07-19 2021-07-19 Emergency [facility] [id number] Memoria 04:09:06 09:51:00 rosaura Pompeii 00 l [facility] 2021-07-18 2021-07-19 Emergency E RAY LEROY MED 7500 MHBL 22:09:00 03:51:00 [facility] 2021-07-15 2021-07-15 Emergency Too Jordan 1.2.840.1 [id number] Methodi 17:49:00 20:55:[address] 3.430.2.7 Hospit a .3.427522 l .8 2021-07-15 2021-07-15 Emergency Too Jordan 1.2.840.1 [id number] Methodi 17:49:00 20:55:[address] 3.430.2.7 Hospit a .3.567587 l .8 2021-07-15 2021-07-15 Emergency EM Vanessa Caldera HCAPM BRANDON [id number] [facility] 09:45:00 13:05:00 40 [facility] 2021-07-13 2021-07-14 Emergency EM Rob, HCAPM BRANDON [id number] [facility] 16:08:00 00:17:00 Chun 13 [facility] 2021-07-13 2021-07-13 Outpatient Rob, HCACL LABO [id number] [facility] 23:52:00 23:52:00 Chun [id number] [facility] 2021-06-24 2021-06-25 Outpatient Kvng FLEMING, FB MED [id number] FB 19:11:00 09:05:00 STEPHANIE 2021-06-24 2021-06-24 Observatio nullFlavo [facility] [id number] Memoria 21:45:18 21:45:18 n rosaura Sanches 12 [address] [place] Shreya 2021-06-24 2021-06-24 Observatio nullFlavo [facility] [id number] Memoria 21:45:18 21:45:18 sina Sanches 12 [address] [place] Shreya 2021-06-24 2021-06-24 Outpatient Santiago, SL SL [id number] 15:45:18 15:45:18 Pema Engle 2021-06-24 2021-06-24 Emergency Rivenes, 1.2.840.1 [id number] [id number] Methodi 11:15:00 14:49:00 Felix Robles 19251.1.[address] 3.430.2.7 Hospit a .3.574641 l .8 2021-06-24 2021-06-24 Emergency Rivenes, 1.2.840.1 [id number] [id number] Methodi 11:15:00 14:49:00 Felix KaplanMatthew 96387.1.[address] 3.430.2.7 Hospit a .3.349945 l .8 2021-06-24 2021-06-24 Travel 1.2.840.1 1.2.430.228 8946 885582 Methodi 00:00:00 00:00:[address] 3.430.2.7 0.2.7.3.698 Ho spita .3.532007 084.8 l .8 2021-06-24 2021-06-24 Travel 1.2.840.1 1.2.817.337 3111 633689 Methodi 00:00:00 00:00:[address] 3.430.2.7 0.2.7.3.698 Ho spita .3.924186 084.8 l .8 2021-06-23 2021-06-23 Emergency 1.2.840.1 [id number] 2099 [id number] Methodi 19:08:00 19:55:[address] 3.430.2.7 Hospit a .3.804196 l .8 2021-06-23 2021-06-23 Emergency 1.2.840.1 [id number] 2099 [id number] Methodi 19:08:00 19:55:[address] 3.430.2.7 Hospit a .3.419193 l .8 2021-06-22 2021-06-22 Emergency [facility] [id number] [facility] 18:00:00 18:00:00 89 2021-06-22 2021-06-22 Emergency [facility] [id number] Memoria 00:26:00 04:42:[address] 2021-06-22 2021-06-22 Emergency [facility] [id number] Memoria 00:26:00 04:42:[address] 2021-06-21 2021-06-21 Emergency E HONORIO, MHBL MHBL 7511 MHBL 18:26:00 22:42:00 GAVIOTA 2021-06-21 2021-06-21 Outpatient [place] [id number] 18:26:00 22:42:00 Gaviota 11 [place] 2021-06-21 2021-06-21 Emergency Mauri, 1.2.840.1 [id number] [id number] Methodi 13:05:00 14:43:[address] [place] 3.430.2.7 Hosp serge .3.867592 l .8 2021-06-21 2021-06-21 Emergency Mauri, 1.2.840.1 [id number] 2099 [id number] Methodi 13:05:00 14:43:[address] [place] 3.430.2.7 Hosp serge .3.748981 l .8 2021-06-20 2021-06-21 Emergency IpToo 1.2.840.1 1045 53769 [id number] Methodi 20:10:00 07:20:00 Kassi Hernández 77382.1.[address] 3.430.2.7 Hospit a .3.942827 l .8 2021-06-20 2021-06-21 Emergency IpToo 1.2.840.1 1045 45306 [id number] Methodi 20:10:00 07:20:00 Kassi Hernández 85794.1.[address] 3.430.2.7 Hospit a .3.697128 l .8 2021-06-20 2021-06-20 Travel 1.2.840.1 1.2.977.301 9288 [id number] Methodi 00:00:00 00:00:[address] 3.430.2.7 0.2.7.3.698 Ho spita .3.290473 084.8 l .8 2021-06-20 2021-06-20 Travel 1.2.840.1 1.2.521.484 2280 440382 Methodi 00:00:00 00:00:[address] 3.430.2.7 0.2.7.3.698 Ho spita .3.357183 084.8 l .8 2021-06-19 2021-06-19 Departed [facility] [id number] 4-0 St. 15:23:00 16:56:00 Emergency Patients [phone] [facility] [id number] Pa dorothy [id number] [facility] 2021-06-19 2021-06-[address] [facility] [id number] 14:23:00 15:56:00 -[id number] [facility] 2021-06-19 2021-06-19 Outpatient 1 Ligia, [facility] A [id number] [facility] 14:23:00 15:56:00 Kassi Patients Patients [address] [place] [address] 2021-06-18 2021-06-18 Outpatient Darin, HCACL LABO [id number] [facility] 02:29:00 02:29:00 DeShauris [id number] [facility] 2021-06-17 2021-06-17 Emergency EM Darin, HCAMN PETRA [id number] [facility] 16:12:00 23:49:[id number] [facility] 2021-06-17 2021-06-17 Emergency EM Darin, HCAMN HCAMN [id number] [facility] 16:12:00 23:49:[address] [facility] 2021-06-11 2021-06-12 [facility], 1.2.840.1 [id number] Methodi 03:53:00 10:50:00 Encounter Dean 31025.1.[address] 3.430.2.7 Hospit a .3.516135 l .8 2021-06-11 2021-06-12 [facility], 1.2.840.1 [id number] 41332 Methodi 03:53:00 10:50:00 Encounter Dean 38490.1.[address] 3.430.2.7 Hospit a .3.960391 l .8 2021-06-10 2021-06-11 Emergency Bettie Andrade 1.2.840.1 [id number] Methodi 23:54:00 03:24:00 Mecca Andres 82185.1.[address] 3.430.2.7 Hospit a .3.942337 l .8 2021-06-10 2021-06-11 Emergency Bettie Andrade 1.2.840.1 [id number] Methodi 23:54:00 03:24:00 Mecca Andres 82120.1.[address] 3.430.2.7 Hospit a .3.050730 l .8 2021-06-11 2021-06-11 Travel 1.2.840.1 1.2.296.893 3863 [id number] Methodi 00:00:00 00:00:[address] 3.430.2.7 0.2.7.3.698 Ho spita .3.124236 084.8 l .8 2021-06-11 2021-06-11 Travel 1.2.840.1 1.2.864.865 4049 034411 Methodi 00:00:00 00:00:[address] 3.430.2.7 0.2.7.3.698 Ho spita .3.015936 084.8 l .8 2021-06-10 2021-06-10 Emergency E SHAHBAZ [facility] [id number] [id number] [place] 21:57:00 23:00:00 , HERB [facility] 2021-06-10 2021-06-10 Emergency E [facility] [id number] [place] 20:14:00 20:14:00 [facility] 2021-06-10 2021-06-10 Emergency EM [place], HCAPM BRANDON [id number] [facility] 17:49:00 19:16:[address] [facility] 2021-06-07 2021-06-07 Emergency E CHASITY [facility] [id number] [place] 20:39:00 22:35:00 [facility] 2021-06-05 2021-06-06 Emergency EM Mu, HCACL BRANDON [id number] [facility] 18:36:00 08:02:00 Larry [id number] [facility] 2021-06-05 2021-06-05 Emergency EM Mu, HCACL HCACL [id number] [facility] 18:36:00 18:36:00 Larry 52 [facility] 2021-06-04 2021-06-04 Emergency E SHAHBAZ [facility] [id number] [id number] [place] 18:21:00 [facility]:37:[facility] 2021-05-31 Emergency nullFlavo [facility] [id number] Memoria 01:46:59 08:10:00 r Pompeii [address] [place] [address] 2021-05-31 2021-05-31 Emergency nullFlavo [facility] [id number] Mem[facility] 01:46:59 08:10:00 r Myron [address] [place] [address] 2021-05-30 2021-05-31 Outpatient Vishnyakova [facility] [id number] 19:46:59 02:10:00 , Caitlin 2021-05-30 2021-05-31 Outpatient Vishnyakova [facility] [id number] 19:46:59 02:10:00 , Caitlin 2021-05-30 2021-05-31 Emergency E VISHNYAKOVA [facility] [id number] [facility] 19:46:00 02:10:00 , CAITLIN 2021-05-29 2021-05-29 Emergency EM Gloria, HCACL BRANDON [id number] [facility] 20:06:00 22:45:00 Maco [id number] [facility] 2021-05-29 2021-05-29 Emergency EM Gloria, HCACL HCACL [id number] [facility] 20:06:00 22:45:00 [facility] 2021-05-28 2021-05-29 Emergency E [facility]DRO [facility] [id number] Premontmatthewar 19:10:00 00:24:00 EDUIN [facility] 2021-05-28 2021-05-28 Emergency EM Mika, HCAMN PETRA [id number] [facility] 10:02:00 15:27:00 Ruth Ann [id number] [facility] 2021-05-28 2021-05-28 Emergency EM Mika, HCAMN HCAMN [id number] [facility] 10:02:00 15:27:00 Ruth Ann 33 [facility] 2021-05-25 2021-05-25 Emergency nullFlavo [facility] [id number] [id number] Memoria 05:27:31 07:36:00 [facility] 09 l [facility] [place] 2021-05-25 2021-05-25 Emergency nullFlavo SE [facility] 4693 [id number] Memoria 05:27:31 07:36:00 [facility] 09 l ([facility] [place] 2021-05-24 2021-05-25 Outpatient Kenia Borges SE MHSE [id number] 23:27:31 01:36:00 Eduardo 09 2021-05-24 2021-05-25 Emergency E KENIA BORGES MHSE MED [id number] 23:27:00 01:36:00 Petar estrella [facility] 2021-05-24 2021-05-24 Departed [facility] [id number] [id number] St. 21:07:00 23:07:00 Emergency Patients [id number] [facility] [id number] Pa dorothy [id number] [facility] 2021-05-24 2021-05-[address] [facility] [id number] 22:17:00 22:07:00 [id number] [facility] 2021-05-24 2021-05-24 Departed 1 SHERON, [facility] A[id number] [facility] 20:07:00 22:07:00 Emergency TOO Patients 88 Shakir [facility] 2021-05-24 2021-05-24 Outpatient [facility] [id number] Univers 17:15:00 17:15:00 [id number] ity [facility] 2021-05-23 2021-05-23 Emergency E OEEri, [facility] ECC [id number] 78 [place] 10:06:00 14:23:00 [facility] 2021-05-22 2021-05-22 Emergency EM Jagdish, HCAMN MEXP [id number] [facility] 15:34:00 19:23:00 Pratibha [id number] [facility] 2021-05-22 2021-05-22 Emergency EM Jagdish, HCAMN HCAMN [id number] [facility] 15:34:00 19:23:00 Pratibha 77 [facility] 2021-05-17 2021-05-18 Inpatient EM Ghadai, HCAMN TELE [id number] [facility] 23:39:00 13:03:00 John [id number] [facility] 2021-05-17 2021-05-18 Inpatient EM Ghadai, HCAMN TELE [id number] [facility] 23:39:00 13:03:00 John 95 [facility] 2021-05-18 2021-05-18 Outpatient Ghadai, HCACL LABO [id number] [facility] 01:02:00 01:02:00 John [id number] [facility] 2021-04-23 2021-04-23 Emergency X NESSA, K [facility] ERT [id number] Univers 12:18:00 16:34:00 ity [facility] 2021-04-23 2021-04-23 Emergency Nessa, K [facility] 1.2.840.114 [id number] Univers 12:18:00 16:34:00 Nayely MENDEZ 350.1.13.10 i Steve 4.2.7.2.686 [facility] [id number] [facility] 084 Branch 2021-04-19 2021-04-19 Emergency E MOHSEN, [facility] ECC [id number] 94 [place] 10:07:00 10:53:00 [facility] 2021-04-18 2021-04-18 Outpatient ENZO Brennan [id number] [facility] 00:12:00 00:12:00 Ruth Ann [id number] [facility] 2021-04-17 2021-04-17 Emergency EM SHELLEY Brennan PETRA [id number] [facility] 19:42:00 23:44:00 Ruth Ann [id number] [facility] 2021-04-17 2021-04-17 Emergency EM SHELLEY Brennan [facility] [id number] [facility] 19:42:00 23:44:00 Ruth Ann 26 [facility] 2021-04-07 2021-04-08 Departed [facility] [id number] e-5 St. 21:40:00 03:29:00 Emergency Patients [id number] [facility] [id number] Pa tieeugenio [id number] [facility] 2021-04-07 2021-04-08 Departed 1 SAIFI, [facility] [id number] 20:40:00 02:29:00 Emergency BRY Patients 78 Shakir Room [facility] 2021-04-05 2021-04-05 Emergency E LOR, [facility] [id number] 15:[facility] 18:22:00 [facility] 2021-04-05 2021-04-05 [facility] [id number] Univers 13:02:00 14:27:00 EVELINA fierro [facility] 2021-04-05 2021-04-05 [facility] 1.2.840.114 [id number] Univers 13:02:00 14:27:00 Evelina MENDEZ 350.1.13.10 sri [facility] 4.2.7.2.686 [facility] [id number] [address] 2021-04-02 2021-04-03 Emergency EM RADHA WebsterCHELSEA PETRA [id number] [facility] 23:50:00 00:25:[id number] [facility] 2021-04-02 2021-04-03 Emergency EM Webster, HCAMN HCAMN [id number] [facility] 23:50:00 00:25:[address] [facility] 2021-04-02 2021-04-02 Emergency X Francisco J SZYMANSKI [facility] ERT [id number] Univers 20:30:00 22:30:00 ity of [facility] 2021-04-02 2021-04-02 Emergency Francisco J Szymanski [facility] 1.2.840.114 [id number] Univers 20:30:00 22:30:00 Nayely MENDEZ 350.1.13.10 i ty [place] [id number] [facility] 084 Branch 2021-03-30 2021-03-30 Transition JENNY Curran 1.2.840.114 [id number] [id number] Univers 00:00:00 00:00:00 of Catherine GALEANA 350.1.13.10 it y of [place] [id number] [facility] 403 Branch 2021-03-27 2021-03-29 Outpatient X LESIA [facility] [place] [id number] Univers 19:26:00 11:55:00 KWAN ity of [facility] 2021-03-27 2021-03-29 Emergency Ronald King [facility] 1.2.840. 114 [id number] Univers 19:26:00 11:55:00 Kwan Graf 350.1.13.10 it[place] [id number] [facility] 080 Branch 2021-03-27 2021-03-27 Orders Doctor TUAN 1.2.840.114 [id number] Univers 00:00:00 00:00:00 Only Unassigned, JEFERSON 350.1.13.10 ity of [place] [facility] 4.2.7.2.686 Biju as [id number] [facility] 009 Branch 2021-03-26 2021-03-26 Outpatient Chase ENZO SULLIVANO [id number] [facility] 23:49:00 23:49:00 Adenike [id number] [facility] 2021-03-26 2021-03-26 Emergency EM Chase, [facility] PETRA [id number] [facility] 12:25:00 18:54:00 Adenike [id number] [facility] 2021-03-26 2021-03-26 Emergency EM Chase, [facility] [id number] [facility] 12:25:00 12:25:00 Adenike 78 [facility] 2021-03-21 2021-03-21 [facility], 1.2.840.1 [id number] [id number] Methodi 20:42:00 22:48:[address] Yas[address]run [address]372.1.[address] 3.430.2.7 Hospit a .3.477554 l .8 2021-03-21 2021-03-21 Emergency [place], 1.2.840.1 [id number] 2099 [id number] Methodi 20:42:00 22:48:[address]run [address]1.[address] 3.430.2.7 Hospit a .3.480935 l .8 2021-03-21 2021-03-21 Travel 1.2.840.1 1.2.297.022 1010 [id number] Methodi 00:00:00 00:00:[address] 3.430.2.7 0.2.7.3.698 Ho spita .3.508161 084.8 l .8 2021-03-21 2021-03-21 Travel 1.2.840.1 1.2.298.341 0364 458382 Methodi 00:00:00 00:00:[address] 3.430.2.7 0.2.7.3.698 Ho spita .3.097345 084.8 l .8 2021-03-20 2021-03-20 Emergency E LOR, [facility] [id number] [place] 11:03:00 14:11:00 KASSI Maciel [facility] 2021-03-15 2021-03-16 Emergency EM Haris, [facility] PETRA [id number] [facility] 23:15:00 01:56:00 Beau 82 [facility] 2021-03-15 2021-03-16 Departed [facility] [id number] 0-d St. 22:55:00 01:00:00 Emergency Patients [id number] [facility] [place] [id number] Dave de la cruz [id number] [facility] 2021-03-15 2021-03-16 Departed [facility] [id number] 21:55:00 00:00:00 Emergency Patients 41 Shakir es Room Med Center [facility] 2021-03-11 2021-03-12 Departed [facility] [id number] 1-8 St. 21:19:00 02:43:00 Emergency Patients [id number] [facility] [id number] Dave de la cruz [id number] [facility] 2021-03-11 2021-03-12 Departed 1 MARTIN, [facility] [id number] 20:19:00 01:43:00 Emergency ERENDIRA Patients 17 Shakir es Room Med [facility] 2021-03-04 2021-03-09 Inpatient EM [facility] [id number] [facility] 23:05:00 13:06:00 Gwendolyn 20 [facility] 2021-03-04 2021-03-05 Emergency [facility] 65219 [id number] Memoria 20:13:00 00:43:00 rosaura Sanches 08 l [place] Shrey[place] 2021-03-04 2021-03-05 Emergency [facility] [id number] Memoria 20:13:00 00:43:00 rosaura Sanches 08 l [place] Shrey[place] 2021-03-04 2021-03-04 Outpatient Too Rg SL SL [id number] 15:13:00 19:43:00 2021-03-04 2021-03-04 Emergency E TOO RG MHFB MHFB 7508 MHFB 15:12:00 19:43:00 2021-03-04 2021-03-04 Emergency E SHAHBAZ [facility] 1001 [id number] [facility] 13:44:00 14:50:00 , HERB [facility] 2021-03-01 2021-03-01 [place] 1.2.697.602 8781 [id number] [facility] 13:49:00 17:52:00 Vanessa Byrne [facility] 350.1.13.10 i Billy 4.2.7.2.686 [facility] [id number] [address] ([facility]) 2021-02-26 2021-02-27 Inpatient EM Singh, HCAMN MAS [id number] [facility] 23:23:00 18:40:00 Gwendolyn 31 [facility] 2021-02-27 2021-02-27 Outpatient Singh, HCACL LABO [id number] [facility] 01:17:00 01:17:00 Gwendolyn 16 [facility] 2021-02-27 2021-02-27 Outpatient Francisco, HCACL LABO [id number] [facility] 01:17:00 01:17:00 Gwendolyn [id number] [facility] 2021-02-26 2021-02-26 Outpatient EL Francisco, HCAMN ZZZB [id number] [facility] 21:04:00 23:22:00 Gwendolyn [id number] [facility] 2021-02-15 2021-02-15 Emergency E MOHSEN, [facility] [id number] [facility] 18:39:00 21:50:00 [facility] 2021-02-06 2021-02-06 Emergency EM Jagdish, HCAMN PETRA [id number] [facility] 21:37:00 23:36:00 Pratibha 85 [facility] 2021-02-04 2021-02-05 Emergency Heri Fabian 1.2.840.1 [id number] Methodi 20:33:00 00:45:[address] 3.430.2.7 Hospit a .3.329968 l .8 2021-02-04 2021-02-05 Emergency Heri Fabian 1.2.840.1 [id number] Methodi 20:33:00 00:45:[address] 3.430.2.7 Hospit a .3.575219 l .8 2021-02-04 2021-02-04 Travel 1.2.840.1 1.2.242.896 6841 003051 Methodi 00:00:00 00:00:[address] 3.430.2.7 0.2.7.3.698 Ho spita .3.802374 084.8 l .8 2021-02-04 2021-02-04 Travel 1.2.840.1 1.2.812.193 5423 253072 Methodi 00:00:00 00:00:[address] 3.430.2.7 0.2.7.3.698 Ho spita .3.036261 084.8 l .8 2021-02-02 2021-02-02 Emergency [place], 1.2.840.1 [id number] 2099 [id number] Methodi 11:52:00 14:31:00 Yasin Imrun [address]452.1.[address] 3.430.2.7 Hospit a .3.995742 l .8 2021-02-02 2021-02-02 Emergency [place], 1.2.840.1 [id number] 2099 [id number] Methodi 11:52:00 14:31:00 Yasin Imrun [address]10.1.[address] 3.430.2.7 Hospit a .3.036449 l .8 2021-02-02 2021-02-02 Emergency [facility] 1.2.840.114 [id number] [facility] 09:00:00 09:24:00 Evelina [facility].13.10 [facility] 4.2.7.2.686 [facility] [id number] [place] 177334 Branch 2021-02-02 2021-02-02 Travel 1.2.840.1 1.2.294.231 7307 [id number] Methodi 00:00:00 00:00:[address] 3.430.2.7 0.2.7.3.698 Ho spita .3.037052 084.8 l .8 2021-02-02 2021-02-02 Travel 1.2.840.1 1.2.731.775 7722 032027 Methodi 00:00:00 00:00:[address] 3.430.2.7 0.2.7.3.698 Ho spita .3.111194 084.8 l .8 2021-02-01 2021-02-01 Emergency EM Stone, HCAMN PETRA [id number] [facility] 08:29:00 13:28:00 Adenike 35 [facility] 2021-02-01 2021-02-01 Emergency EM Stone, HCAMN PETRA [id number] [facility] 08:29:00 08:29:00 Adenike [id number] [facility] 2021-01-31 2021-01-31 Emergency Sierra, 1.2.840.1 [id number] Methodi 12:53:00 17:15:00 Nolan Hernan 35640.1.1 122 s t 3.430.2.7 Hospit a .3.960875 l .8 2021-01-31 2021-01-31 Emergency [place], 1.2.840.1 [id number] 2 [id number] Methodi 12:53:00 17:15:00 Nolan Becerra 85647.1.1 122 s t 3.430.2.7 Hospit a .3.851822 l .8 2021-01-31 2021-01-31 Emergency nullFlavo [facility] 4693 [id number] Memoria 16:19:36 16:41:00 [facility] 07 l (EDL) [place] 2021-01-31 2021-01-31 Emergency nullFlavo SE [facility] 4693 [id number] Memoria 16:19:36 16:41:00 [facility] 07 l (EDL) [place] 2021-01-31 2021-01-31 Outpatient Kenia Borges [facility] 840 [id number] 11:19:36 11:41:00 Eduardo 07 2021-01-31 2021-01-31 Emergency E KENIA BORGES [facility] 7507 11:19:00 11:41:00 Petar estrella [facility] 2021-01-30 2021-01-31 Emergency [facility] 54594 40944 Memoria 21:30:01 01:13:00 r Myron 06 l [place] 2021-01-30 2021-01-31 Emergency [facility] [id number] Memoria 21:30:01 01:13:00 r [place] 06 l [place] 2021-01-30 2021-01-30 Outpatient Pelon Muñoz [facility] 023 [id number] 16:30:01 20:13:00 Caroline 2021-01-30 2021-01-30 Emergency E PELON MUÑOZ FB FB [id number] FB 16:30:00 20:13:00 2021-01-30 2021-01-30 Emergency E LOR [facility] [id number] [place] 14:19:00 16:06:00 [facility] 2021-01-29 2021-01-29 Outpatient RADHA BrennanCL LABO [id number] [facility] 00:43:00 00:43:00 Ruth Ann [id number] [facility] 2021-01-28 2021-01-28 Emergency King, [facility] 1.2.462.776 [id number] [facility] 19:25:00 21:41:00 Ronald [place] 350.1.13.10 [facility] 4.2.7.2.686 [facility] [id number] [facility] 084 Branch 2021-01-28 2021-01-28 Emergency EM RADHA BrennanNV PETRA [id number] [facility] 15:28:00 18:28:00 Ruth Ann [id number] [facility] 2021-01-22 2021-01-22 Emergency E KIANA [facility] ECC [id number] [place] 15:16:00 20:03:00 [facility] 2021-01-22 2021-01-22 [id number] 13:08:00 14:30:00 Emergency Patients [id number] [facility] [id number] Dave de la cruz [id number] [facility] 2021-01-22 2021-01-22 Departed [facility] [id number] 13:08:00 14:30:00 Emergency Patients 65 Shakir Room [facility] 2021-01-22 2021-01-22 Emergency EM Silas, HCABM BRANDON [id number] [facility] 13:48:00 14:00:00 Tinuola 34 [facility] 2021-01-21 2021-01-21 Emergency [facility] 1.2.644.079 [id number] [facility] 16:27:00 20:44:00 Ronald Mendez 350.1.13.10 i ty of [place] 4.2.7.2.686 [facility] [id number] [place] [id number] Branch 2021-01-19 2021-01-19 Departed 1 Ligia, [facility] [id number] 08:54:00 12:41:00 Emergency Kassi Patients 54 [facility] 2021-01-19 2021-01-19 Departed [facility] [id number] c-[address] 08:54:00 12:41:00 Emergency Patients [id number] [facility] [id number] Dave de la cruz [id number] [facility] 2021-01-12 2021-01-12 Emergency [facility] 1.2.564.573 [id number] [facility] 14:08:00 18:57:00 Anuja Mendez 350.1.13.10 i ty of [place] 4.2.7.2.686 [facility] [id number] [facility] adelina 084 Branch 2021-01-08 2021-01-09 Emergency EM Jagdish, HCAMN PETRA [id number] [facility] 19:53:00 01:17:00 Pratibha [id number] [facility] 2021-01-09 2021-01-09 Outpatient Jagdish, HCACL LABO [id number] [facility] 01:10:00 01:10:00 Pratibha [id number] [facility] 2021-01-02 2021-01-02 Emergency nullFlavo [facility] 4693 [id number] Memoria 14:11:01 16:40:00 [facility] 05 l (EDL) [place] 2021-01-02 2021-01-02 Emergency nullFlavo [facility] 4693 [id number] Memoria 14:11:01 16:40:00 [facility] 05 l (EDL) [place] 2021-01-02 2021-01-02 Emergency Drever, [facility] 1.2.721.555 [id number] [facility] 12:57:00 15:13:00 Vanessa Mendez 350.1.13.10 ity [facility] 4.2.7.2.686 [facility] [id number] [facility] 084 [place] 2021-01-02 2021-01-02 Emergency [facility], [facility] 1.2.994.799 [id number] [id number] 12:57:00 15:13:00 Vanessa Mendez 350.1.13.10 [place] 4.2.7.2.686 [place] [id number] [facility] 2021-01-02 2021-01-02 Outpatient IRA Nguyen MHSE [id number] 09:11:01 11:40:00 Tuan Mtz 05 2021-01-02 2021-01-02 Emergency E IRA NGUYEN MHSE [id number] MH 09:11:00 11:40:00 TUAN estrella [facility] 2021-01-01 2021-01-01 Emergency EM Uriahsina, RADHAMN [facility] [id number] [facility] 10:08:00 14:30:00 Evy [id number] [facility] 2020-10-23 2020-10-27 Inpatient EM Harlaneleanorgloria HCAMN [facility].01 F307 [id number] [facility] 00:09:00 12:47:00 odin [id number] Liseth Bethea [facility] 2020-10-23 2020-10-23 Outpatient ATILIO WOODRUFF [facility] [id number] Univers 13:40:00 13:40:00 ATILIO WILCOX [id number] ity [facility] 2020-10-23 2020-10-23 Outpatient R ATILIO WILCOX [facility] [id number] Univers 13:40:00 13:40:00 ATILIO WILCOX ity [facility] 2020-10-22 2020-10-22 Outpatient Haris HCACL LABO F307 [id number] [facility] 23:54:00 23:54:00 Beau [id number] [facility] 2020-10-22 2020-10-22 Emergency EM Haris, HCAMN PETRA [id number] [facility] 20:14:00 20:14:00 Beau [id number] [facility] 2020-10-16 2020-10-16 Emergency [facility] 1.2.060.418 [id number] Univers 20:15:00 22:00:00 Michael Mendez 350.1.13.10 ity of [place] 4.2.7.2.686 [facility] [id number] [facility] 084 Branch 2020-10-16 2020-10-16 Emergency [facility] 1.2.291.075 [id number] 20:15:00 22:00:00 Michael [place] 350.1.13.10 [place] 4.2.7.2.686 [place] [id number] 084 2020-10-13 2020-10-14 Emergency Schoenstein TRAUMA 1.2.840.114 [id number] Univers 19:59:00 04:04:00 [facility] 350.1.13.10 it y of 4.2.7.2.686 [facility] [id number] [facility] 014 Branch 2020-10-13 2020-10-14 Emergency Schoenstein TRAUMA 1.2.840.114 [id number] 19:59:00 04:04:00 , Rand CENTER 350.1.13.10 4.2.7.2.686 [id number] 014 2020-10-11 2020-10-11 [facility] 4693 [id number] Memoria 06:52:07 07:59:00 r [facility] 04 l ([facility] [place] 2020-10-11 2020-10-11 Emergency nullFlavo League 4693 [id number] Memoria 06:52:07 07:59:00 [facility] 04 l (EDL) [place] 2020-10-11 2020-10-11 Outpatient Dilip, MHSE MHSE [id number] 01:52:07 02:59:00 Talon 04 2020-10-11 2020-10-11 Emergency E BOBFRANDY, MHSE MHSE [id number] 01:52:00 02:59:00 TALON [facility] 2020-10-10 2020-10-11 Emergency Holly, 1.2.840.1 [id number] Methodi 23:52:00 01:31:00 Abdirahman H 41622.1.[address] 3.430.2.7 Hospit a .3.826330 l .8 2020-10-11 2020-10-11 Travel 1.2.840.1 1.2.391.948 3619 [id number] Methodi 00:00:00 00:00:[address] 3.430.2.7 0.2.7.3.698 Ho spita .3.957209 084.8 l .8 2020-10-09 2020-10-10 Emergency [place], [facility] 1.2.610.984 [id number] Univers 20:58:00 02:35:00 [facility] 350.1.13.10 i ty of [place] 4.2.7.2.686 [facility] [id number] [address] ([facility]) 2020-10-09 2020-10-10 Emergency [place], [facility] 1.2.657.345 [id number] 20:58:00 02:35:00 Vanessa [facility] 350.1.13.10 League 4.2.7.2.686 [facility] [id number] [address] ([facility]) 2020-10-09 2020-10-09 Emergency nullFlavo [facility] [id number] Memoria 04:55:42 09:07:00 r Myron 03 l [facility] 2020-10-09 2020-10-09 Emergency nullFlavo [facility] [id number] Memoria 04:55:42 09:07:00 r Myron 03 l [facility] 2020-10-08 2020-10-09 Outpatient IRA [place] [id number] [id number] 23:55:42 04:07:00 Kary 03 [place] 2020-10-08 2020-10-09 Emergency E [place] SE 7503 23:55:00 04:07:00 [facility] 2020-10-08 2020-10-08 Emergency [facility], [facility] 1.2.158.408 [id number] [facility] 19:58:00 23:09:00 Carltonsusanjennifer Gloria [place] 350.1.13.10 ity [facility] 4.2.7.2.686 [facility] [id number] [address] 2020-10-08 2020-10-08 Emergency [facility], [facility] 1.2.677.830 [id number] 19:58:00 23:09:00 Michael Castro [place] 350.1.13.10 [place] 4.2.7.2.686 [place] [id number] 4 2020-10-07 2020-10-07 Emergency nullFlavo SE League [id number] Memoria 07:52:09 09:24:00 [facility] 02 l ([facility] [place] 2020-10-07 2020-10-07 Emergency nullFlavo SE [facility] 4693 [id number] Memoria 07:52:09 09:24:00 [facility] 02 l ([facility] [place] 2020-10-07 2020-10-07 Outpatient IRA Cortez [facility] [id number] 02:52:09 04:24:00 Larry Chowdary 2020-10-07 2020-10-07 Emergency E IRA CORTEZ SE 7502 02:52:00 04:24:00 [facility] 2020-10-06 2020-10-06 Emergency Judy Tyler [facility] 1.2. 840.114 [id number] [facility] 20:36:00 23:40:00 Michael Jenkins 350.1.13.10 ity [place] [id number] [facility] [id number] [facility] [address] 2020-10-06 2020-10-06 Emergency Judy Tyler [facility] 1.2. 840.114 [id number] 20:36:00 23:40:00 Michael Jenkins [place] [id number] [place] [id number] [place] [id number] 2020-09-14 2020-09-14 Emergency nullFlavo [place] [id number] Mem[facility] 03:54:59 06:43:00 [facility] 01 l ([facility]) [place] 2020-09-14 2020-09-14 Emergency nullFlavo [facility] [id number] Memoria 03:54:59 06:43:00 [facility] 01 l ([facility]) [place] 2020-09-13 2020-09-14 Outpatient IRA Goins MHSE [id number] 22:54:59 01:43:00 Abdiwahab 01 [place] 2020-08-14 2020-08-14 Outpatient Satnam [facility]ACL LABO [id number] [facility] 00:05:00 00:05:00 Evy [id number] [facility] 2020-05-08 2020-05-08 Outpatient Mika [facility]AC[facility] LABO [id number] [facility] 00:53:00 00:53:00 Ruth Ann [id number] [facility] 2020-05-02 2020-05-02 Emergency nullFlavo [facility] [id number] Memoria 18:51:43 22:16:00 [facility]- 00 l (EDL) [place] 2020-05-02 2020-05-02 Emergency nullFlavo [facility] [id number] Memoria 18:51:43 22:16:00 [facility] 00 l ([facility]) [place] 2020-05-02 2020-05-02 Outpatient IRA Mcclain MHSE [id number] 12:51:43 16:16:00 Too Slaughter 2020-05-02 2020-05-02 Emergency E JASON MHSE MHSE [id number] MH 12:51:00 16:16:00 TOO [facility] 2020-05-01 2020-05-01 Emergency E CHASITY [facility] ECC [id number] [place] 20:22:00 22:29:00 [facility] 2020-04-22 2020-04-22 Emergency E [place] [facility] [place] [facility] [facility] 1000 [id number] [place] 18:52:00 21:25:00 [facility] 2020-01-15 2020-01-15 [facility] [id number] 13:36:00 15:45:00 Emergency TAREK Patients 63 Shakir es Room [facility] 2020-01-15 2020-01-15 Departed [facility] [id number] 13:23:00 13:31:00 Emergency Patients 61 Shakir es Room [facility] 2020-01-05 2020-01-05 Emergency [facility] [id number] [facility] 21:31:00 23:16:00 [facility] 350.1.13.10 it y of [place] 4.2.7.2.686 [facility] [phone] [address] ([facility]) 2020-01-05 2020-01-05 Emergency [facility] [id number] 21:31:00 23:16:00 [facility] 350.1.13.10 [place] 4.2.7.2.686 [facility] [phone] [address] ([facility]) 2020-01-02 2020-01-02 Departed 1 [facility] [id number] 14:30:00 18:08:00 Emergency LAIRD Patients 46 Shakir es Room [facility] 2019-12-27 2019-12-27 Outpatient Brandon Hays HCACHERYL LABO F30 [id number] [facility] 09:02:00 09:02:00 [facility] 2019-12-27 2019-12-27 Departed [facility] [id number] 04:21:00 05:01:00 Emergency Patients 13 Shakir es Room [facility] 2019-12-24 2019-12-[address] [facility] [id number] [facility] 13:07:00 15:47:00 Anel S Andrea 350.1.13.10 i ty of [place] 4.2.7.2.686 [facility] s [place] [phone] [facility] [address] 2019-12-24 2019-12-[address] [facility] [id number] 13:07:00 15:47:00 Anel Mendez 350.1.13.10 [place] 4.2.7.2.686 [place] [phone] [facility] 2019-12-24 2019-12-24 Orders Doctor TUAN 1.2.840.114 [id number] Univers 00:00:00 00:00:00 Only Unassigned, JEFERSON 350.1.13.10 ity of [place] [facility] 4.2.7.2.686 Biju [phone] [facility] 009 [address] 2019-12-24 2019-12-24 Orders Doctor TUAN 1.2.840.114 [id number] 00:00:00 00:00:00 Only Unassigned, JEFERSON 350.1.13.10 [place] [facility] 4.2.7.2.686 [id number] 009 2019-12-23 2019-12-23 Departed 1 SHERON, [facility] A[id number] [facility] 22:12:00 23:02:00 Emergency TOO Patients 07 Shakir es Room [facility] 2019-12-19 2019-12-19 Departed 1 ALY [facility] [id number] 15:48:00 19:33:00 Emergency LAIRD Patients 80 Shakir es Room [facility] 2019-12-07 2019-12-09 Discharged 1 VENECIA, [facility] [id number] [facility] 02:23:00 16:22:00 Inpatient JIRIES Patients [address] [place] [address] 2019-11-19 2019-11-20 Emergency [facility] 1.2.840.114 [id number] [facility] 21:37:14 00:29:00 Evelina Mendez 350.1.13.10 ity of [place] 4.2.7.2.686 [facility] [phone] [place] 177[address] [place] 2019-11-19 2019-11-20 [facility] 1.2.840.114 [id number] 21:37:14 00:29:00 Evelina Mendez 350.1.13.10 [place] 4.2.7.2.686 [place] [phone] [facility] 2019-11-19 2019-11-19 Telephone TUAN Corley [id number] [facility] 00:00:00 00:00:00 Gulshan GOVEA 350.1.13.10 [facility] 4.2.7.2.686 Biju as [phone] [facility] 019 [address] 2019-11-19 2019-11-19 Telephone TUAN Corley [id number] 00:00:00 00:00:00 Gulshan GOVEA 350.1.13.10 [facility] 4.2.7.2.686 [id number] [facility] 2019-11-16 2019-11-16 [facility] 1.2.840.114 [id number] [facility] 16:19:59 17:32:00 Evelina Mendez 350.1.13.10 ity of [place] 4.2.7.2.686 [facility] [phone] [place] [address] [place] 2019-11-16 2019-11-16 [facility] 1.2.840.114 [id number] 16:19:59 17:32:00 Evelina Mendez 350.1.13.10 [place] 4.2.7.2.686 [place] [phone] [facility] 2019-11-16 2019-11-16 Orders Doctor TUAN 1.2.840.114 [id number] Univers 00:00:00 00:00:00 Only Unassigned, JEFERSON 350.1.13.10 ity of [place] [facility] 4.2.7.2.686 Biju as [phone] [facility] 00[address] [place] 2019-11-16 2019-11-16 Orders Doctor TUAN 1.2.840.114 [id number] 00:00:00 00:00:00 Only Unassigned, JEFERSON 350.1.13.10 [place] [facility] 4.2.7.2.686 [phone] 009 2019-09-22 2019-09-22 Telephone Pcp, [facility] [id number] Univers 00:00:00 00:00:00 Patient MULTISPEC 350.1.13.10 ity of Does Not IALTY 4.2.7.2.686 Ibju as Have A CENTER [phone] [facility] AND KATE [address] [place] [address] DIABETES [facility] 2019-09-22 2019-09-22 Telephone Pcp, [facility] [id number] 00:00:00 00:00:00 Patient MULTISPEC 350.1.13.10 [facility] 4.2.7.2.686 Have A CENTER [phone] [facility] 2019-09-21 2019-09-21 Emergency Francisco J Szymanski [facility] 1.2.840.114 [id number] Univers 17:15:50 22:34:00 Nayely Mendez 350.1.13.10 i ty of [place] 4.2.7.2.686 [facility] [phone] [address] 2019-09-21 2019-09-21 Emergency X Francisco J SZYMANSKI [facility] ERT [id number] Univers 17:15:50 22:34:00 ity of [facility] 2019-09-21 2019-09-21 Emergency Francisco J Szymanski [facility] 1.2.840.114 [id number] 17:15:50 22:34:00 Nayely Mendez 350.1.13.10 [place] 4.2.7.2.686 [place] [phone] [facility] 2019-09-21 2019-09-21 Orders Doctor GILLESPIE 1.2.840.114 [id number] Univers 00:00:00 00:00:00 Only Unassigned, JEFERSON 350.1.13.10 ity of [place] [facility] 4.2.7.2.686 Biju as [phone] [address] 2019-09-21 2019-09-21 Orders Doctor TUAN 1.2.840.114 [id number] 00:00:00 00:00:00 Only Unassigned, JEFERSON 350.1.13.10 [place] [facility] 4.2.7.2.686 [id number] [facility] 2019-09-11 2019-09-11 Emergency X CESAR, [facility] [id number] Univers 19:54:49 23:17:00 ONEYDA darlyn [facility] 2019-05-13 2019-05-15 Inpatient EM Obed [facility] F307 [id number] [facility] 00:46:00 17:15:00 odin, [id number] Liseth pride [facility] 2018-09-09 2018-09-09 Emergency E [facility] MED 7517 MH 20:58:00 20:58:[address] [facility] 2018-08-31 2018-08-31 Emergency E MHSE MHSE 7516 MH 23:13:00 23:13:[address] [facility] 2018-08-30 2018-08-30 Emergency E MHSE MHSE 7515 22:04:00 22:04:[address] [facility] 2018-08-28 2018-08-28 Outpatient MHSE MHSE 7513 MH 09:44:00 09:44:[address] [facility] 2018-08-27 2018-08-27 Emergency E [facility] MED 7514 MH 20:30:00 20:30:[address] [facility] 2018-08-13 2018-08-13 Emergency E [facility] MED 7512 18:53:00 18:53:[address] [facility] 2018-08-07 2018-08-07 Emergency E MHSE MHSE 7511 02:40:00 02:40:[address] [facility] 2018-08-06 2018-08-06 Emergency E MHSE MHSE 7510 02:07:00 02:07:[address] [facility] 2017-04-08 2017-04-21 [facility] [id number] 21:28:00 13:22:00 Juan HOPSON [facility] 2017-03-25 2017-03-31 Inpatient Kv[facility] [id number] 02:40:00 14:54:00 Juan HOPSNO [facility] Results Test Description Test Time Test Comments Results Result Comments Source HCG SERUM 2022-01-27 16:29:00 Test Item Value Reference Range Interpretation Comme nts HCG SERUM (test code = HCG) < 1 mi-IU/ML 0-6 N 0 - 6 NOT > 6 SUGGESTIVE OF EARLY RISES TWO FOLD EVERY 2 DAYS; SUGGEST R ECONFIRMING AFTER 2 DAYS. 150,000-2 00,[address] TRIMESTER 10,000 - 50,000 2ND & 3RD TRIMESTER BASIC METABOLIC [id number] 16:29:00 Test Item Value Reference Range Interpretation Comments SODIUM (test code = NA) 140 mmol/L 134-147 N POTASSIUM (test code = K) 4.2 mmol/L 3.4-5.0 N CHLORIDE (test code = CL) 106 mmol/L 100-108 N CARBON DIOXIDE (test code = 24 mmol/L 21-32 N CO2) ANION GAP (test code = GAP) 10.0 GAP calc 4.0-15.0 N GLUCOSE (test code = GLU) 86 MG/DL 70-110 N BLOOD UREA NITROGEN (test code 9 MG/DL 7-18 N = BUN) GLOMERULAR FILTRATION RATE 57 estGFR >60 L (test code = GFR) CREATININE (test code = CREAT) 1.1 MG/DL 0.6-1.0 H CALCIUM (test code = CA) 9.5 MG/DL 8.5-10.1 N HEPATIC FUNCTION [id number] 16:29:00 Test Item Value Reference Range Interpretation Comments TOTAL PROTEIN (test code = PROT) 7.4 G/DL 6.4-8.2 N ALBUMIN (test code = ALB) 3.1 G/DL 3.4-5.0 L BILIRUBIN TOTAL (test code = 0.20 MG/DL 0.2-1.2 N BILT) BILIRUBIN DIRECT (test code = < 0.10 MG/DL 0.00-0.30 N BILD) BILIRUBIN INDIRECT (test code = 0.10 MG/DL 0.2-1.2 L BILIND) SGOT/AST (test code = AST) 20 Unit/L 15-37 N SGPT/ALT (test code = ALT) 22 Unit/L 12-78 N ALKALINE PHOSPHATASE TOTAL (test 133 Unit/L 45-117 H code = ALKP) [id number] 16:29:00 Test Item Value Reference Range Interpretation Comments LIPASE (test code = LIP) 126 Unit/L 114-286 N CBC W/AUTO [id number] 16:13:00 Test Item Value Reference Range Interpretation Comments WHITE BLOOD CELL (test code = 9.5 K/mm3 3.5-11.0 N WBC) RED BLOOD CELL (test code = 4.48 M/mm3 4.70-6.10 L RBC) HEMOGLOBIN (test code = HGB) 11.8 G/DL 10.4-14.9 N HEMATOCRIT (test code = HCT) 37.8 % 31.5-44.1 N MEAN CELL VOLUME (test code = 84.4 Fl 84.5-98.6 L MCV) MEAN CELL HGB (test code = MCH) 26.3 pg 27.0-34.2 L MEAN CELL HGB CONCETRATION 31.2 G/DL 31.5-34.0 L (test code = MCHC) RED CELL DISTRIBUTION WIDTH 17.3 SD 11.5-14.5 H (test code = RDW) PLATELET COUNT (test code = 278 K/mm3 150-450 N PLT) MEAN PLATELET VOLUME (test code 10.80 fL 7.0-10.5 H = MPV) NEUTROPHIL % (test code = NT%) 72.5 % 40-76 N IMMATURE GRANULOCYTE % (test 0.3 % 0.0-5.0 N code = IG%) LYMPHOCYTE % (test code = LY%) 17.5 % 20.5-51.1 L MONOCYTE % (test code = MO%) 7.4 % 1.7-9.3 N EOSINOPHIL % (test code = EO%) 1.9 % 0.0-6.0 N BASOPHIL % (test code = BA%) 0.4 % 0.0-2.0 N NUCLEATED RBC % (test code = 0.0 /100WBC% 0.0-1.0 N NRBC%) NEUTROPHIL # (test code = NT#) 6.9 K/mm3 1.8-7.6 N IMMATURE GRANULOCYTE # (test 0.03 x10 3/uL 0.00-0.03 N code = IG#) LYMPHOCYTE # (test code = LY#) 1.7 K/mm3 0.6-3.2 N MONOCYTE # (test code = MO#) 0.7 K/mm3 0.3-1.1 N EOSINOPHIL # (test code = EO#) 0.2 K/mm3 0.0-0.4 N BASOPHIL # (test code = BA#) 0.0 K/mm3 0.0-0.1 N NUCLEATED RBC # (test code = 0.0 K/mm3 0.0-0.1 N NRBC#) MANUAL DIFF REQUIRED (test code NO DIFF/SCN CRITERIA = MDIFF) URINE HCG TRIAGE (ER ONLY)2022-01-14 08:52:00 Test Item Value Reference Range Interpretation Comments URINE HCG TRIAGE (ER ONLY) (test NEGATIVE Negative code = HCGTRIAGE) Urine Test Result: NEGATIVEAre internal controls (presence of a control line & clear background) OK? YLot # of HCG Test Kit: [id number] Date of Kit: 03/18/23Test Performed by: HARRIS Test Perfomed on: 01/13/22COMMENTS: HCG NEGATIVECBC W/AUTO [id number] 00:08:00 Test Item Value Reference Range Interpretation Comments WHITE BLOOD CELL (test code = WBC) 9.9 K/uL 3.5-11.0 N RED BLOOD CELL (test code = RBC) 4.67 M/uL 3.54-5.02 N HEMOGLOBIN (test code = HGB) 12.8 GM/DL 11.0-15.0 N HEMATOCRIT (test code = HCT) 39.9 % 37.0-47.0 N MEAN CELL VOLUME (test code = MCV) 85.4 fL 81.0-99.0 N MEAN CELL HGB (test code = MCH) 27.4 pg 27.0-31.0 N MEAN CELL HGB CONCETRATION (test 32.1 GM/DL 33.0-37.0 L code = MCHC) RED CELL DISTRIBUTION WIDTH CV 18.1 % 11.5-14.5 H (test code = RDW) PLATELET COUNT (test code = PLT) 171 K/mm3 150-400 N MEAN PLATELET VOLUME (test code = 12.6 FL 8.8-13.1 N MPV) NEUTROPHIL % (test code = NT%) 62.2 % 40.0-76.0 N LYMPHOCYTE % (test code = LY%) 27.0 % 15.0-40.0 N MIXED % (test code = MX%) 10.8 % 3.0-15.0 N NEUTROPHIL # (test code = NT#) 6.1 K/uL 1.8-7.6 N LYMPHOCYTE # (test code = LY#) 2.7 K/uL 1.0-3.8 N MIXED # (test code = MX#) 1.1 k/mm3 0.1-0.8 H LIVER [id number] 21:20:00 Test Item Value Reference Range Interpretation Comments TOTAL PROTEIN (test code 7.1 GM/DL 5.0-8.0 N Per formed by = PROT) certified opera tor at [facility] ed Ctr ALBUMIN (test code = 3.5 g/dL 3.4-5.0 N ALB) BILIRUBIN TOTAL (test 0.3 MG/DL 0.0-1.0 N code = BILT) SGOT/AST (test code = 30 IUnit/L 15-37 N AST) SGPT/ALT (test code = 5 IUnit/L 30-65 L ALT) GAMMA GLUTAMYL 32 UNITS/L 5-85 N TRANSPEPTIDASE (test code = GGT) ALKALINE PHOSPHATASE 104 IUNIT/L 20-125 N TOTAL (test code = ALKP) AMYLASE (test code = 18 UNITS/L 25-125 L TUCKER) BASIC METABOLIC [id number] 21:10:00 Test Item Value Reference Range Interpretation Comments SODIUM (test code = NA/ABG) 141 MEQ/L 134-147 N POTASSIUM (test code = K/ABG) 5.8 MEQ/L 3.4-5.0 H CHLORIDE (test code = CL/ABG) 107 MEQ/L 100-108 N CREATININE ABG (test code = 1.1 mg/dL 0.6-1.0 H CREAABG) POC IONIZED CALCIUM (test code = 1.17 MMOL/L 1.12-1.32 N POCCA) POC GLUCOSE (test code = POCGLU) 103 MG/DL 70-110 N POC LACTIC [id number] 21:10:00 Test Item Value Reference Range Interpretation Comments POC LACTIC ACID (test code = 1.1 mmol/l 0.9-1.7 N POCLAC) - CT ABD PELVIS [id number] 00:00:00 [facility] : 1975 Sex: F Name: LIANA ASHBY FSED : 1975 Age/S: 46 / F [address] [facility] Unit #: [id number] Loc: [place] [address] Phys: Andreia Falcon MD Acct: [id number] Dis Date: Status: REG ER PHONE #: Exam Date: 01/13/20222128 FAX #: Reason: abd pain, vomiting EXAMS: CPT CODE: [id number] CT ABDPELVIS W/CONT 00885 PROCEDURE INFORMATION: Exam: CT Abdomen And Pelvis With Contrast Exam date and time: 01/13/2022 9:10 PM Age: 46 years old Clinical indication: Abdominal pain; Generalized; Additional info: Abd pain, vomiting TECHNIQUE: Imaging protocol: Computed tomography of the abdomen and pelvis with contrast. Radiation optimization: All CT scans at this facility use at least one of these dose optimization techniques: automated exposure control; mA and/or kV adjustment per patient size (includes targeted exams where dose is matched to clinical indication); or iterative reconstruction. Contrast material: ISO 300; Contrast volume: 100 ml; Contrast route: INTRAVENOUS (IV); COMPARISON: CT ABD PELVIS W/O CONT 12/09/2021 1:11 AM FINDINGS: Liver: Normal. No mass. Gallbladder and bile ducts: Changes of cholecystectomy. Pancreas: Normal. No ductal dilation. Spleen: Calcified granuloma in the spleen. Adrenal glands: Normal. No mass. Kidneys and ureters: Mbqo-cs-xkbniqmo atrophy of the kidneys. No acute kidney abnormality. Stomach and bowel: Postoperative changes of the stomach. No acute abnormality of the stomach. Normal duodenum. Normal small bowel. No small bowel obstruction. Normal colon. Appendix: Normal appendix. Intraperitoneal space: Unremarkable. No free air. No significant fluid collection. Vasculature: Mild aortic calcification. Lymph nodes: Unremarkable. No enlarged lymph nodes. Urinary bladder: Unremarkable as visualized. Reproductive: Unremarkable as visualized. Bones/joints: No acute osseous abnormality or aggressive osseous lesion. Moderate degeneration of the L5/S1 intervertebral disc. Soft tissues: Unremarkable. IMPRESSION: 1. No acute abnormality. 2. Chronic findings as desc ribed. PAGE 1 Signed Report (CONTINUED) Name: LIANA ASHBY FSED : 1975 Age/S:46 / F [address] [facility] Unit #: [id number] Loc: [place] [address] Phys: Andreia Falcon MD Acct: [id number] Dis Date: Status: REG ER PHONE #: Exam Date: 01/13/20222128 FAX #: Reason: abd pain, vomiting EXAMS: CPT CODE: [id number] CT ABD PELVIS W/CONT 43905 (Continued) at 9 Reported and signed by: Eduardo Kirkland M.D. CC: Lexus Copeland MD; Andreia Falcon MD Technologist:RT Daphne(R)(CT) CTDI: DLP: Trnscb Date/Time: 01/13/2022 (2208) tHENRY Orig Print D/T: S: 01/13/2022 (2208) PAGE 2 Signed ReportUA, Urinalysis Rflx [id number] 01:50:00 Test Item Value Reference Range Interpretation Comments Color,Urine (test code = UCOL) Yellow Yellow Clarity,Urine (test code = Clear Clear UCLAR) Ph, Urine (test code = UPH) 6.5 5.0-9.0 N Specific [place],Urine (test 1.015 1.005-1.030 N code = USG) Blood,Urine (test code = UBLD) Negative mg/dL Negative Protein,Urine (test code = Negative mg/dL Negative UPRO) Glucose,Urine (UA) (test code Negative mg/dL Negative = UGLU) Ketones,Urine (test code = Negative mg/dL Negative UKET) Nitrate,Urine (test code = Negative Negative UNIT) Bilirubin,Urine (test code = Negative mg/dL Negative UBIL) Urobilinogen,Urine (test code 0.2 E.U./dL Normal = UURO) Leukocyte Esterase,Urine (test Trace mg/dL Negative A code = ULEU) Urine [id number] 01:50:00 Test Item Value Reference Range Interpretation Comments RBC,Urine (test code = URBCUF) 0-2 /HPF 0-2 WBC,Urine (test code = UWBCUF) 6-10 /HPF 0-5 A Epithelial Cell,Urine (test code = 11-25 /HPF 0-5 A UECUF) Casts,Urine (test code = UCASTUF) 0-5 /LPF None Seen Bacteria,Urine (test code = Rare /hpf None Seen UBACTUF) Complete Blood Count Auto [id number] 01:50:00 Test Item Value Reference Range Interpretation Comments White Blood Count (test code = 7.6 x10 3/uL 4.4-10.5 N WBCT) Red Blood Count (test code = 4.27 x10 6/uL 3.75-5.20 N RBC) Hemoglobin (test code = HGBT) 11.5 g/dL 12.2-14.8 L Hematocrit (test code = HCTT) 37.3 % 36.5-44.4 N Mean Corpuscular Volume (test 87.40 fL 80.00-100.00 N code = MCV) Mean Corpuscular Hemoglobin 26.9 pg 27.0-32.5 L (test code = MCH) Mean Corpuscular HGB Conc 30.80 g/dL 32.00-37.50 L (test code = MCHC) RDW Coefficient of Variation 17.9 % 11.5-14.5 H (test code = RDWCV) Platelet Count (test code = 262.0 x10 3/uL 140.0-440.0 N PLTT) Mean Platelet Volume (test 10.9 fL code = MPV) nRBC Abs (test code = NRBCA) 0 nRBC Pct (test code = NRBCP) 0 % Comprehensive Metabolic [id number] 01:50:00 Test Item Value Reference Range Interpretation Comments SODIUM (test code = NA) 139.0 mmol/L 136.0-145.0 N Potassium,K (test code = K) 3.9 mmol/L 3.0-5.1 N Chloride (test code = CL) 109 mmol/L 98-107 H Carbon Dioxide (test code = CO2) 26 mmol/L 20-31 N Anion Gap (test code = GAP) 4 mmol/L 5-15 L Blood Urea Nitrogen (test code = 11 mg/dL 9-23 N BUN) Creatinine (test code = CREATT) 1.16 mg/dL 0.55-1.02 H Creatinine Clr Calc Pharmacy 74.25 mL/min (test code = CRCLPHA) Estimated GFR ( Najma > 60 mL/min/1.73m2 (test code = EGFRAA) Estimated GFR (Non Afr Najma 57 mL/min/1.73m2 (test code = EGFRNAA) BUN/Creatinine Ratio (test code 9 ratio 10-20 L = BCRATIO) Glucose (test code = GLU) 100 mg/dL 74-106 N Osmolality,Calculated (test code 286.9 = OSMOC) Calcium (test code = CA) 9.3 mg/dL 8.3-10.6 N Bilirubin,Total (test code = 0.2 mg/dL 0.2-1.1 N BILIT) Aspartate Amino Transferase 20 U/L 0-34 N (test code = AST) Alanine Aminotransferase (test 19 U/L 10-49 N code = ALT) Total Protein (test code = TP) 6.3 g/dL 5.7-8.2 N Albumin Level (test code = ALB) 4.3 g/dL 3.2-4.8 N Globulin (test code = GLOB) 2.0 mg/dL 2.3-3.5 L Albumin/Globulin Ratio (test 2.2 ratio 0.8-2.0 H code = AGRATIO) Alkaline Phosphatase (test code 136 U/L 46-116 H = ALP) [id number] 01:50:00 Test Item Value Reference Range Interpretation Comments Lipase (test code = LIP) 26 U/L 12-53 N HCG, Serum Qual (LAB)2022-01-08 01:50:00 Test Item Value Reference Range Interpretation Comments HCG, Serum Qual (LAB) (test code = Negative Negative HCGQ) Manual Differential, [id number] 01:50:00 Test Item Value Reference Range Interpretation Comments Neutrophils % (Manual) (test 55 % code = NEUT%M) Lymphocytes % (Manual) (test 34.0 % 12.0-44.0 N code = LYMPH%M) Monocytes % (Manual) (test code 8.0 % 0.0-11.0 N = MONO%M) Eosinophils % (Manual) (test 3 % code = EOS%M) Neutrophils # (Manual) (test 4.2 x10 3/uL 1.6-7.4 N code = NEUT#M) Lymphocytes # (Manual) (test 2.6 x10 3/uL 0.5-4.6 N code = LYMPH#M) Monocytes # (Manual) (test code 0.6 x10 3/uL 0.0-1.2 N = MONO#M) Eosinophils # (Manual) (test 0.228 code = EOS#M) Platelet Estimate (test code = Adequate Normal PLTEST) RBC Morphology (test code = RM) Abnormal Normal Anisocytosis (test code = ANISO) 1+ None Seen A SARS-CoV (RAPID ANTIGEN)2022-01-02 21:53:00 Test Item Value Reference Range Interpretation Comments SARS-CoV (ANTIGEN) NEGATIVE NEGATIVE (test code = COVAG) COVID AG (test This test has been code = COVAGC) marketed under the FDA Emergency Use Authorization (EUA) to meet challenges of the COVID-19 pandemic. The validation standards normally enforced by the FDA and the [employer] of the [employer] (CAP) are more stringent than those required for this test. Therefore, the result should be interpreted with caution and close attention to other clinical and epidemiological data CT ABDOMEN AND PELVIS W/O [id number] 21:12:17 [facility]INE ASHBY: 1975 Sex: FCT SCAN OF THE ABDO MEN AND PELVIS WITHOUT IV CONTRASTDictation Location: [id number] HISTORY: Abdominal painTECHNIQUE: Helical CT of the abdomen and pelvis was performed without IV contrast without complication. Coronal and sagittal reconstructions were obtained. This exam was performed according to our departmental dose optimization program, which includes automated exposure control, adjustment of the mA and/ or KV according to patient size and/or use of iterative reconstruction technique.DLP 1245 mGy*cmComparison study July 20, 2021FINDINGS:The visualized lung bases are of infiltrates. Tiny 0.3 cm nodule is presentat the right lower lobe and left lower lobe, both seen on image two, unchanged from prior study. Tiny 0.2 cm nodules at the right lower lobe and left lower lobe evident on image seven are also unchanged. No evidence of pleural effusion. Liver is normal in size without intrahepatic biliary dilatation or focal mass. The gallbladder is surgically absent. The spleen, and adrenal glands are normal. There is no evidence of hydronephrosis or obstructing kidney stone. There is a small 0.8 cm hyperdensity atthe superior pole right kidney on image 32. Visualized ureters are unremarkable.There is no evidenceof pancreatitis, pancreatic mass, atrophy, calcification. There is no abdominal free fluid or adenopathy. There is no free air or abscess.Surgery of the stomach and small bowel consistent with bariatric surgery again noted. No evidence of abnormal bowel wall thickening. No evidence of colitis or obstruction. Normal air-filled appendix is seen on coronal image 50.In the pelvis, there is no free fluid or adenopathy present. The bladder is unremarkable without distention, wall thickening mass or calculi. Uterus and adnexa are unremarkable.There is mild calcific atherosclerosis. No AAA. Bony structuresare normal.FINDINGS:1. No acute findings demonstrated.2. Prior cholecystectomy. Surgical changes to the bowel are unchanged.3. There is a small new 0.8 cm hyperdensity in the superior pole right kidney. Recommend follow-up renal ultrasound.Electronically signed by: Tomasa Mtz MD 01/02/2022 9:12 PM CDT [id number] PROFILE 2022-01-02 20:41:00 Test Item Value Reference Range Interpretation Comments BILI TOTAL (test 0.2 mg/dL 0.2-1.0 code = 11A) BILI DIRCT (test <0.1 mg/dL 0.0-0.3 code = 12A) PROTEIN (test code = 7.4 g/dL 5.7-8.2 07D) ALBUMIN (test code = 4.5 g/dL 3.2-4.8 08D) GLOBULIN (test code 2.9 g/dL 1.5-3.8 = GLB) ALB/GLOB (test code 1.6 1.0-2.6 = AGRR) ALK PHOS (test code 129 IU/L 46-116 H = 35A) AST (test code = 39 IU/L See_Comment H [Automated message] 30A) The system [employer] generated this result transmitted ref erence range: <=33. Th e reference range was not used to interpr et this result as normal/abnormal . ALT (test code = 21 IU/L 10-49 31A) AMYLASE AND [id number] 20:40:00 Test Item Value Reference Range Interpretation Comments AMYLASE (test code = 10A) 48 U/L 30-118 LIPASE (test code = 60A) 30 IU/L 12-53 [id number] 20:40:00 Test Item Value Reference Range Interpretation Comments MAGNESIUM (test code = 48A) 1.9 mg/dL 1.6-2.6 TROPONIN [id number] 20:28:00 Test Item Value Reference Range Interpretation Comments TROPONIN I (test code = A84) <2.50 pg/mL 0.00-45.20 BASIC METABOLIC [id number] 20:26:00 Test Item Value Reference Range Interpretation Comments GLUCOSE (test code 86 mg/dL 75-100 = 06D) SODIUM (test code 141 mmol/L 136-145 = 01A) POTASSIUM (test 4.6 mmol/L 3.6-5.1 code = 01B) CHLORIDE (test 110 mmol/L 98-107 H code = 04A) CO2 (test code = 25 mmol/L -31 02A) ANION GAP (test 10.6 mmol/L code = ANG) BUN (test code = 7 mg/dL 9-23 L 05D) CREATININE (test 1.0 mg/dL 0.6-1.0 code = 03E) GFR (test code = 68 See_Comment L [Automated GFR) mL/min/1.73m\\S\\2 message] Th e system which generated this result transmit kody reference range : >=90. The reference range was not used to interpret this result as normal/abnormal . GFR 79 See_Comment L [Automated DOMINICAN (test mL/min/1.73m\\S\\2 message] The code = GFRAA) system which generated this result transmit kody reference range : >=90. The reference range was not used to interpret this result as normal/abnormal . EGFR (test code = eGFR BY EGFR) CKD-EPI CALCULATION IS NOT RECOMMENDED FOR PATIENTS UNDER 18 YEARS OF AGE. BUN/CREA (test 7 12-20 L code = BCR) CALCIUM (test code 9.3 mg/dL 8.3-10.6 = 09D) SERUM [id number] 20:26:00 Test Item Value Reference Range Interpretation Comments PREG SRM (test code = PGS) NEGATIVE NEGATIVE PRO TIME AND [id number] 20:25:00 Test Item Value Reference Range Interpretation Comments PT (test code = 11.0 s 9.8-13.6 TT) INR (test code = 1.0 INR) INRH (test code = SUGGESTED INRH) THERAPEUTIC RANGE FOR INR: 2.5 - 3.5 For Patients with Prosthetic Valves or Patients with recurrent Thromboembolic Events 2.0 - 3.0 For Most Other Applications PTT (test code = 31.4 s 20.2-38.0 PTT) PTTH (test code = To monitor the PTTH) effectiveness of heparin, we offer the Anti-Xa (Heparin Assay). It can be used for either unfractionated or LMW Heparin. Order Code is ANTI-XA CBC (INCLUDES AUTOMATED DIFFERENTIAL)2022-01-02 20:18:00 Test Item Value Reference Range Interpretation Comments WBC (test code = WBC) 8.2 10\\S\\3/uL 4.5-11.0 RBC (test code = RBC) 4.28 10\\S\\6/uL 4.20-5.60 HGB (test code = HBG) 11.2 g/dL 12.0-15.5 L HCT (test code = HCT) 36.6 % 35.0-44.0 MCV (test code = MCV) 85.5 fL 81.0-99.0 MCH (test code = MCH) 26.2 pg 27.0-31.0 L MCHC (test code = MCHC) 30.6 g/dL 32.0-36.0 L RDW (test code = RDW) 17.3 % 11.5-14.5 H PLT (test code = PLT) 269 10\\S\\3/uL 130-400 MPV (test code = MPV) 11.2 fL 9.4-12.4 NEUTROP # (test code = NE#) 5.7 10\\S\\3/uL 1.6-8.0 LYMPH # (test code = LY#) 1.6 10\\S\\3/uL 1.1-3.5 MONOCYTE # (test code = MO#) 0.7 10\\S\\3/uL 0.0-1.1 EOSINOPH # (test code = EO#) 0.2 10\\S\\3/uL 0.0-0.7 BASOPHIL # (test code = BA#) 0.0 10\\S\\3/uL 0.0-0.3 IG # (test code = IG#) 0.02 10\\S\\3/uL 0.00-0.06 NRBC # (test code = NRBC#) 0.00 10\\S\\3/uL 0.00-0.01 NEUTROPH % (test code = NE%) 69.4 % 35.0-73.0 LYMPH % (test code = LY%) 19.2 % 20.0-55.0 L MONO % (test code = MO%) 8.5 % 2.5-10.0 EOSINOPH % (test code = EO%) 2.3 % 0.0-5.0 BASOPHIL % (test code = BA%) 0.4 % 0.0-2.0 IG % (test code = IG%) 0.2 % 0.0-0.8 NRBC% (test code = NRBC%) 0.0 % 0.0-0.2 MANDIFF (test code = MDIFF) NO RBC MORPH (test code = RBCMOR) NORMAL XR CHEST 1 VIEW [id number] 20:07:49 [facility]: 1975 Sex: FLOC[address]: [address] Y: 46-year-old female presents with abdominal pain.COMMENT:A frontal chest radiograph was obtained at the bedside at 7:46 p.m., and is compared to a prior study of January 22, 2021.The lungs are clearand well-aerated. The cardiac silhouette, beena, and mediastinum are within normal limits. The skeleton is intact, and the surrounding soft tissues are unremarkable.IMPRESSION:Unremarkable portable examination of the chest.Electronically signed by: Mac Duarte MD 01/02/2022 8:07 PM CDT [id number] METABOLIC [id number] 00:57:31 Test Item Value Reference Range Interpretation Comments SODIUM (BEAKER) 141 meq/L 135-148 (test code = 381) POTASSIUM 4.7 meq/L 3.6-5.5 (BEAKER) (test code = 379) CHLORIDE (BEAKER) 106 meq/L 98-106 (test code = 382) CO2 (BEAKER) 23 meq/L 24-32 L (test code = 355) BLOOD UREA 8 mg/dL 10-26 L NITROGEN (BEAKER) (test code = 354) CREATININE 0.98 mg/dL 0.50-1.20 (BEAKER) (test code = 358) GLUCOSE RANDOM 101 mg/dL 70-110 (MATTHEWAKER) (test code = 652) CALCIUM (BEAKER) 8.8 mg/dL 8.5-10.5 (test code = 697) EGFR (MATTHEWAKER) 73 Interpretatio n of eGFR (test code = mL/min/1.73 values Stage De scription 1092) sq m Result G1 Michell l or high >=90 G2 Mildly decreased 60-89 G3a Mildl y to moderately 45-5 9 G3b Moderately to s everely 30-44 G4 Severl y decreased 15-29 G5 Kidney failure <15Reported eGF R is based on the CKD-EPI 2020 equation that d oes not use a race coefficientEsti mated GFR is not as accur ate as Creatinine Carmel adriano in predicting glom erular filtration rate . Estimated GFR is not appl icable for dialysis patien ts Urinalysis w/Microscopic + Reflex to [id number] 00:53:43 Test Item Value Reference Range Interpretation Comments Color, UA (test code = Yellow 5778-6) Clarity, UA (test code = Hazy 5767-9) Specific [place], UA 1.025 1.001-1.035 (test code = 5811-5) pH, UA (test code = 6.0 5.0-8.0 5803-2) Protein, UA (test code = Negative Negative 30442-8) Glucose, UA (test code = Negative Negative 365) Ketones, UA (test code = Trace Negative A 2514-8) Bilirubin, UA (test code Negative Negative = 64099-5) Blood, UA (test code = Trace Negative A 30271-8) Nitrite, UA (test code = Negative Negative 5802-4) Leukocytes, UA (test Negative Negative code = 5799-2) Urobilinogen, UA (test 1.0 mg/dL 0.2-1.0 code = 27493-2) RBC, UA (test code = <5 See_Comment [Autom ated message] 799-7) The system [employer] generated this result transmit kody reference range : /HPF. The refer ence range was not u sed to interpret th is result as normal/abnormal . WBC, UA (test code = <5 See_Comment [Autom ated message] 78995-0) The system [employer] generated this result transmit kody reference range : /HPF. The refer ence range was not u sed to interpret th is result as normal/abnormal . SQUAMOUS EPITHELIAL 20-50 See_Comment [Automa kody message] (test code = 17679-0) The sy stem which generated this result transmit kody reference range : /HPF. The refer ence range was not u sed to interpret th is result as normal/abnormal . Specimen Source (test code = 2795) Lab Interpretation (test Abnormal code = 11230-8) [facility] Reflex to Culture 2021-12-31 00:53:43 Test Item Value Reference Range Interpretation Comments Color, UA (test code = Yellow 5778-6) Clarity, UA (test code = Hazy 5767-9) Specific [place], UA 1.025 1.001-1.035 (test code = 5811-5) pH, UA (test code = 6.0 5.0-8.0 5803-2) Protein, UA (test code = Negative Negative 64233-2) Glucose, UA (test code = Negative Negative 365) Ketones, UA (test code = Trace Negative A 2514-8) Bilirubin, UA (test code Negative Negative = 59173-6) Blood, UA (test code = Trace Negative A 80796-2) Nitrite, UA (test code = Negative Negative 5802-4) Leukocytes, UA (test Negative Negative code = 5799-2) Urobilinogen, UA (test 1.0 mg/dL 0.2-1.0 code = 22632-0) RBC, UA (test code = <5 See_Comment [Autom ated message] 799-7) The system [employer] generated this result transmit kody reference range : /HPF. The refer ence range was not u sed to interpret th is result as normal/abnormal . WBC, UA (test code = <5 See_Comment [Autom ated message] 76210-3) The system [employer] generated this result transmit kody reference range : /HPF. The refer ence range was not u sed to interpret th is result as normal/abnormal . SQUAMOUS EPITHELIAL 20-50 See_Comment [Automa kody message] (test code = 20819-5) The sy stem which generated this result transmit kody reference range : /HPF. The refer ence range was not u sed to interpret th is result as normal/abnormal . Specimen Source (test code = 2795) Lab Interpretation (test Abnormal code = 51380-9) [facility] + Reflex to Culture 2021-12-31 00:53:43 Test Item Value Reference Range Interpretation Comments Color, UA (test code = Yellow 5778-6) Clarity, UA (test code = Hazy 5767-9) Specific [place], UA 1.025 1.001-1.035 (test code = 5811-5) pH, UA (test code = 6.0 5.0-8.0 5803-2) Protein, UA (test code = Negative Negative 77409-3) Glucose, UA (test code = Negative Negative 365) Ketones, UA (test code = Trace Negative A 2514-8) Bilirubin, UA (test code Negative Negative = 66196-9) Blood, UA (test code = Trace Negative A 88420-8) Nitrite, UA (test code = Negative Negative 5802-4) Leukocytes, UA (test Negative Negative code = 5799-2) Urobilinogen, UA (test 1.0 mg/dL 0.2-1.0 code = 91298-2) RBC, UA (test code = <5 See_Comment [Autom ated message] 799-7) The system [employer] generated this result transmit kody reference range : /HPF. The refer ence range was not u sed to interpret th is result as normal/abnormal . WBC, UA (test code = <5 See_Comment [Autom ated message] 37351-6) The system [employer] generated this result transmit kody reference range : /HPF. The refer ence range was not u sed to interpret th is result as normal/abnormal . SQUAMOUS EPITHELIAL 20-50 See_Comment [Automa kody message] (test code = 56586-5) The sy stem which generated this result transmit kody reference range : /HPF. The refer ence range was not u sed to interpret th is result as normal/abnormal . Specimen Source (test code = 2795) Lab Interpretation (test Abnormal code = 85857-2) [facility] UR[facility] [id number] 00:53:43 Test Item Value Reference Range Interpretation Comments COLOR (BEAKER) (test code = 470) Yellow CLARITY (BEAKER) (test code = 469) Hazy SPECIFIC GRAVITY UA (BEAKER) (test 1.025 1.001-1.035 code = 468) PH UA (BEAKER) (test code = 467) 6.0 5.0-8.0 PROTEIN UA (BEAKER) (test code = Negative Negative 464) GLUCOSE UA (BEAKER) (test code = Negative Negative 365) KETONES UA (BEAKER) (test code = Trace Negative A 371) BILIRUBIN UA (BEAKER) (test code = Negative Negative 462) BLOOD UA (BEAKER) (test code = Trace Negative A 461) NITRITE UA (BEAKER) (test code = Negative Negative 465) LEUKOCYTE ESTERASE UA (BEAKER) Negative Negative (test code = 466) UROBILINOGEN UA (BEAKER) (test 1.0 mg/dL 0.2-1.0 code = 463) RBC UA-MANUAL (BEAKER) (test code <5 /HPF = 1659) WBC UA-MANUAL (BEAKER) (test code <5 /HPF = 1661) SQUAMOUS EPITHELIAL MANUAL 20-50 /HPF (BEAKER) (test code = 1663) SOURCE(BEAKER) (test code = 2795) Screen, [id number] 00:53:16 Test Item Value Reference Range Interpretation Comments Preg Test, Ur (test code = 2-1) Negative Negative Lab Interpretation (test code = Normal 68541-7) [facility], [id number] 00:53:16 Test Item Value Reference Range Interpretation Comments Preg Test, Ur (test code = 2112-1) Negative Negative Lab Interpretation (test code = Normal 10776-1) [facility], [id number] 00:53:16 Test Item Value Reference Range Interpretation Comments Preg Test, Ur (test code = 2112-1) Negative Negative Lab Interpretation (test code = Normal 75344-7) [facility] S[facility]EN, [id number] 00:53:16 Test Item Value Reference Range Interpretation Comments TEST URINE (BEAKER) (test Negative Negative code = 583) CBC W/PLT COUNT & AUTO [id number] 00:51:10 Test Item Value Reference Range Interpretation Comments WHITE BLOOD CELL COUNT (BEAKER) 7.1 K/ L 4.0-10.0 (test code = 775) RED BLOOD CELL COUNT (BEAKER) 4.27 M/ L 4.00-5.00 (test code = 761) HEMOGLOBIN (BEAKER) (test code = 11.2 GM/DL 12.0-15.0 L 410) HEMATOCRIT (BEAKER) (test code = 34.7 % 36.0-45.0 L 411) MEAN CORPUSCULAR VOLUME (BEAKER) 81.4 fL 82.0-99.0 L (test code = 753) MEAN CORPUSCULAR HEMOGLOBIN 26.2 pg 27.0-33.0 L (BEAKER) (test code = 751) MEAN CORPUSCULAR HEMOGLOBIN CONC 32.2 GM/DL 32.0-36.0 (BEAKER) (test code = 752) RED CELL DISTRIBUTION WIDTH 16.7 % 10.3-14.2 H (BEAKER) (test code = 412) PLATELET COUNT (BEAKER) (test 258 K/CU MM 150-430 code = 756) MEAN PLATELET VOLUME (BEAKER) 9.2 fL 6.5-10.5 (test code = 754) NEUTROPHILS RELATIVE PERCENT 57 % (BEAKER) (test code = 429) LYMPHOCYTES RELATIVE PERCENT 29 % (BEAKER) (test code = 430) MONOCYTES RELATIVE PERCENT 9 % (BEAKER) (test code = 431) EOSINOPHILS RELATIVE PERCENT 4 % (BEAKER) (test code = 432) BASOPHILS RELATIVE PERCENT 1 % (BEAKER) (test code = 437) NEUTROPHILS ABSOLUTE COUNT 4.08 K/ L 1.80-8.00 (BEAKER) (test code = 670) LYMPHOCYTES ABSOLUTE COUNT 2.07 K/ L 1.48-4.50 (BEAKER) (test code = 414) MONOCYTES ABSOLUTE COUNT (BEAKER) 0.63 K/ L 0.00-1.30 (test code = 415) EOSINOPHILS ABSOLUTE COUNT 0.31 K/ L 0.00-0.50 (BEAKER) (test code = 416) BASOPHILS ABSOLUTE COUNT (BEAKER) 0.04 K/ L 0.00-0.20 (test code = 417) UA RFLX MICR CULT IF [id number] 17:53:00 Test Item Value Reference Range Interpretation Comments UA COLOR (test code = YELLOW discript YEL/STRAW COLU) UA APPEARANCE (test code CLEAR discript CLEAR = APPU) UA GLUCOSE DIPSTICK (test NEGATIVE mg/dL NEG code = DGLUU) UA BILIRUBIN DIPSTICK NEGATIVE mg/dL NEG (test code = BILU) UA KETONE DIPSTICK (test NEGATIVE mg/dL NEG code = KETU) UA SPECIFIC GRAVITY (test <=1.005 SG 1.005-1.030 code = SGU) UA BLOOD DIPSTICK (test TRACE mg/DL NEG A code = WINSTON) UA PH DIPSTICK (test code 6.5 pH UNITS 5.0-7.0 = FOSTER) UA PROTEIN DIPSTICK (test NEGATIVE mg/dL NEG code = PROU) UA UROBILINIOGEN DIPSTICK 0.2 mg/dL <2.0 (test code = URO) UA NITRITE DIPSTICK (test NEGATIVE SCREEN NEG code = SU) UA LEUKOCYTE ESTERASE NEGATIVE Leuk/mcL NEGATIVE DIPSTICK (test code = LEUU) UA CULTURE NEEDED? (test NO, WBC<10 Criteria Culture CHK code = UACULT) Indication for culture: Suprapubic PainBASIC METABOLIC [id number] 17:04:00 Test Item Value Reference Range Interpretation Comments SODIUM (test code = NA) 140 mmol/L 134-147 N POTASSIUM (test code = K) 4.1 mmol/L 3.4-5.0 N CHLORIDE (test code = CL) 107 mmol/L 100-108 N CARBON DIOXIDE (test code = CO2) 26 mmol/L 21-32 N ANION GAP (test code = GAP) 7.0 GAP calc 4.0-15.0 N GLUCOSE (test code = GLU) 101 MG/DL 70-110 N BLOOD UREA NITROGEN (test code = 11 MG/DL 7-18 N BUN) GLOMERULAR FILTRATION RATE (test 57 estGFR >60 L code = GFR) CREATININE (test code = CREAT) 1.1 MG/DL 0.6-1.0 H CALCIUM (test code = CA) 9.0 MG/DL 8.5-10.1 N HEPATIC FUNCTION [id number] 17:04:00 Test Item Value Reference Range Interpretation Comments TOTAL PROTEIN (test code = PROT) 7.2 G/DL 6.4-8.2 N ALBUMIN (test code = ALB) 3.1 G/DL 3.4-5.0 L BILIRUBIN TOTAL (test code = 0.10 MG/DL 0.2-1.2 L BILT) BILIRUBIN DIRECT (test code = < 0.10 MG/DL 0.00-0.30 N BILD) BILIRUBIN INDIRECT (test code = 0.00 MG/DL 0.2-1.2 L BILIND) SGOT/AST (test code = AST) 16 Unit/L 15-37 N SGPT/ALT (test code = ALT) 21 Unit/L 12-78 N ALKALINE PHOSPHATASE TOTAL (test 134 Unit/L 45-117 H code = ALKP) [id number] 17:04:00 Test Item Value Reference Range Interpretation Comments LIPASE (test code = LIP) 114 Unit/L 114-286 N CBC W/AUTO [id number] 16:52:00 Test Item Value Reference Range Interpretation Comments WHITE BLOOD CELL (test code = 8.0 K/mm3 3.5-11.0 N WBC) RED BLOOD CELL (test code = 4.12 M/mm3 4.70-6.10 L RBC) HEMOGLOBIN (test code = HGB) 10.6 G/DL 10.4-14.9 N HEMATOCRIT (test code = HCT) 34.3 % 31.5-44.1 N MEAN CELL VOLUME (test code = 83.3 Fl 84.5-98.6 L MCV) MEAN CELL HGB (test code = MCH) 25.7 pg 27.0-34.2 L MEAN CELL HGB CONCETRATION 30.9 G/DL 31.5-34.0 L (test code = MCHC) RED CELL DISTRIBUTION WIDTH 17.2 SD 11.5-14.5 H (test code = RDW) PLATELET COUNT (test code = 286 K/mm3 150-450 N PLT) MEAN PLATELET VOLUME (test code 10.80 fL 7.0-10.5 H = MPV) NEUTROPHIL % (test code = NT%) 66.0 % 40-76 N IMMATURE GRANULOCYTE % (test 0.3 % 0.0-5.0 N code = IG%) LYMPHOCYTE % (test code = LY%) 21.5 % 20.5-51.1 N MONOCYTE % (test code = MO%) 8.3 % 1.7-9.3 N EOSINOPHIL % (test code = EO%) 3.6 % 0.0-6.0 N BASOPHIL % (test code = BA%) 0.3 % 0.0-2.0 N NUCLEATED RBC % (test code = 0.0 /100WBC% 0.0-1.0 N NRBC%) NEUTROPHIL # (test code = NT#) 5.3 K/mm3 1.8-7.6 N IMMATURE GRANULOCYTE # (test 0.02 x10 3/uL 0.00-0.03 N code = IG#) LYMPHOCYTE # (test code = LY#) 1.7 K/mm3 0.6-3.2 N MONOCYTE # (test code = MO#) 0.7 K/mm3 0.3-1.1 N EOSINOPHIL # (test code = EO#) 0.3 K/mm3 0.0-0.4 N BASOPHIL # (test code = BA#) 0.0 K/mm3 0.0-0.1 N NUCLEATED RBC # (test code = 0.0 K/mm3 0.0-0.1 N NRBC#) MANUAL DIFF REQUIRED (test code NO DIFF/SCN CRITERIA = MDIFF) - CT ABD PELVIS W/O [id number] 01:30:00 [facility] 1975 Sex: F Name: LIANA ASHBY [facility] : 1975 Age/S: 46 / F [address] [place] Unit #: [id number] Loc: [place] [address] Phys: Tavon Pelaez MD Acct: [id number] Dis Date: Status: REG ER PHONE #: [phone] Exam Date: 12/09/2021109 FAX #: Reason: Abdominal pain, vomting EXAMS: CPT: [id number] CT ABD PELVIS W/O CONT 17823 LOCATION: Q15 HISTORY: 46-year-old female presents with abdominal pain with vomiting. COMMENT: Axial CT imaging of this patient's abdomen and pelvis was obtained without IV contrast. Coronal and sagittal soft tissue reconstructions were included. An older examination obtained October 10, 2021 is available for comparison. CONTRAST: None One or more of the following dose reduc tion techniques are used: Automated exposure control, adjustment of the mA and/or kV according the patient size, and/or utilization of iterative reconstruction technique. DLP: 1017.30 mGy-cm FINDINGS: Redemonstrated are tiny pulmonary nodules in both lung bases, unchanged in appearance from the previous examination. The cardiac silhouette is unremarkable. The liver, spleen, pancreas, adrenal glands, and kidneys acute findings. Again seen is a tiny hyperdense cyst in the right kidney measuring approximately 6 mm in diameter, unchanged since prior study obtained May 28, 2021. The appearance is con sistent with a tiny Bosniak type II cyst. No further workup is needed. Cholecystectomy clips are noted. The upper intestinal tract and the small intestine are unremarkable. Postoperative changes secondary to bariatric surgery are again noted. A normal-appearing appendix is seen. PAGE 1 Signed Report ( CONTINUED) Name: LIANA ASHBY [facility] : 1975 Age/S: 46 / F [address] [facility] Unit #: [id number] Loc: [place] [address] Phys: Tavon Pelaez MD Acct: [id number] Dis Date: Status:REG PHONE #: [phone] Exam Date: 12/09/2021109 FAX #: Reason: Abdominal pain, vomting EXAMS: CPT: [id number] CT ABD PELVIS W/O CONT 22791 <Continued> The colon exhibits no acute findings. There is no ascites or adenopathy present. In the pelvis the urinary bladder, uterus, and ovaries are unremarkable. The vascular anatomy is unremarkable. The musculoskeletal anatomy is unremarkable. IMPRESSION: There are no acute findings seen in this patient's abdomen or pelvis on this unenhanced CT examination. No significant change has occurred since prior studies of October 10, 2021, and May. at 0130 Reported and signed by: Mac Duarte M.D. CC: Lexus Copeland MD; Tavon Pelaez MD Technologist:Sue Anglin, RT(R)(CT) CTDI: DLP: Trnscb Date/Time: 12/09/2021 (129) t.[email or web address] Orig Print D/T: S: 12/09/2021 (132) PAGE 2 Signed ReportHCG [id number] 00:38:00 Test Item Value Reference Range Interpretation Comments HCG SERUM (test < 1 mi-IU/ML 0-6 N 0 - 6 NOT P REGNANT > 6 code = HCG) SUGGESTIVE OF E JENNIFER RISES TWO FOLD EVERY 2 DAYS; S UGGEST RECONFIRMING AF TER 2 DAYS. 150,000-2 00,[address] TRIMESTER 10 ,000 - 50,000 2ND & 3R D TRIMESTER [id number] 00:33:00 Test Item Value Reference Range Interpretation Comments LIPASE (test code = LIP) 130 Unit/L 114-286 N Completed by Nursing: YESTroponin I Result: .Performed By: .If Critical Value, Physician Notified: .Date & Time Test Performed: .TROP-I HIGH SENSITIVITY 2021-12-09 00:33:00 Test Item Value Reference Range Interpretation Comments TROP-I HIGH 5.0 ng/L 0-34 N CAUTION: Units of the SENSITIVITY (test current te st methodology code = TROPIHS) (ng/L) diffe rfrom the prior test meth odology (ng/mL) by a fa ctor of 1000. 99t h Percentile Uppe r Reference Limit (URL):Fem ales: 34 ng/LMales: 54 n g/L In order to distin guish acute elevations of h igh sensitivitytrop onin from other clinical conditions, the FourthUnive rsal Definition of M yocardial Infarction stressesclinica l assessment and the demonstration o f a rise and/orfall in s erial troponin result s above the URL. Results fr om different metho dologies should not be c omparedto one another as quantitative re sults and URLs may varyby method. Completed by Nursing: YESTroponin I Result: .Performed By: .If Critical Value, Physician Notified: .Date & Time Test Performed: .BASIC METABOLIC PANEL 2021-12-09 00:33:00 Test Item Value Reference Range Interpretation Comments SODIUM (test code = NA) 142 mmol/L 134-147 N POTASSIUM (test code = K) 4.4 mmol/L 3.4-5.0 N CHLORIDE (test code = CL) 111 mmol/L 100-108 H CARBON DIOXIDE (test code = CO2) 23 mmol/L 21-32 N ANION GAP (test code = GAP) 8.0 GAP calc 4.0-15.0 N GLUCOSE (test code = GLU) 99 MG/DL 70-110 N BLOOD UREA NITROGEN (test code = 21 MG/DL 7-18 H BUN) GLOMERULAR FILTRATION RATE (test 47 estGFR >60 L code = GFR) CREATININE (test code = CREAT) 1.3 MG/DL 0.6-1.0 H CALCIUM (test code = CA) 9.4 MG/DL 8.5-10.1 N Completed by Nursing: YESTroponin I Result: .Performed By: .If Critical Value, Physician Notified: .Date & Time Test Performed: .HEPATIC FUNCTION PANEL 2021-12-09 00:33:00 Test Item Value Reference Range Interpretation Comments TOTAL PROTEIN (test code = PROT) 7.9 G/DL 6.4-8.2 N ALBUMIN (test code = ALB) 3.3 G/DL 3.4-5.0 L BILIRUBIN TOTAL (test code = 0.20 MG/DL 0.2-1.2 N BILT) BILIRUBIN DIRECT (test code = < 0.10 MG/DL 0.00-0.30 N BILD) BILIRUBIN INDIRECT (test code = 0.10 MG/DL 0.2-1.2 L BILIND) SGOT/AST (test code = AST) 14 Unit/L 15-37 L SGPT/ALT (test code = ALT) 24 Unit/L 12-78 N ALKALINE PHOSPHATASE TOTAL (test 138 Unit/L 45-117 H code = ALKP) Completed by Nursing: Kris Hwang Result: .Performed By: .If Critical Value, Physician Notified: .Date & Time Test Performed: .CBC W/AUTO [id number] 00:31:00 Test Item Value Reference Range Interpretation Comments WHITE BLOOD CELL (test code = 7.9 K/mm3 3.5-11.0 N WBC) RED BLOOD CELL (test code = 4.09 M/mm3 4.70-6.10 L RBC) HEMOGLOBIN (test code = HGB) 10.4 G/DL 10.4-14.9 N HEMATOCRIT (test code = HCT) 33.8 % 31.5-44.1 N MEAN CELL VOLUME (test code = 82.6 Fl 84.5-98.6 L MCV) MEAN CELL HGB (test code = MCH) 25.4 pg 27.0-34.2 L MEAN CELL HGB CONCETRATION 30.8 G/DL 31.5-34.0 L (test code = MCHC) RED CELL DISTRIBUTION WIDTH 16.3 SD 11.5-14.5 H (test code = RDW) PLATELET COUNT (test code = 287 K/mm3 150-450 N PLT) MEAN PLATELET VOLUME (test code 11.50 fL 7.0-10.5 H = MPV) NEUTROPHIL % (test code = NT%) 63.8 % 40-76 N IMMATURE GRANULOCYTE % (test 0.4 % 0.0-5.0 N code = IG%) LYMPHOCYTE % (test code = LY%) 25.0 % 20.5-51.1 N MONOCYTE % (test code = MO%) 7.4 % 1.7-9.3 N EOSINOPHIL % (test code = EO%) 2.9 % 0.0-6.0 N BASOPHIL % (test code = BA%) 0.5 % 0.0-2.0 N NUCLEATED RBC % (test code = 0.0 /100WBC% 0.0-1.0 N NRBC%) NEUTROPHIL # (test code = NT#) 5.1 K/mm3 1.8-7.6 N IMMATURE GRANULOCYTE # (test 0.03 x10 3/uL 0.00-0.03 N code = IG#) LYMPHOCYTE # (test code = LY#) 2.0 K/mm3 0.6-3.2 N MONOCYTE # (test code = MO#) 0.6 K/mm3 0.3-1.1 N EOSINOPHIL # (test code = EO#) 0.2 K/mm3 0.0-0.4 N BASOPHIL # (test code = BA#) 0.0 K/mm3 0.0-0.1 N NUCLEATED RBC # (test code = 0.0 K/mm3 0.0-0.1 N NRBC#) MANUAL DIFF REQUIRED (test code NO DIFF/SCN CRITERIA = MDIFF) UA RFLX MICR CULT IF [id number] 23:30:00 Test Item Value Reference Range Interpretation Comments UA COLOR (test code = YELLOW discript YEL/STRAW COLU) UA APPEARANCE (test code CLEAR discript CLEAR = APPU) UA GLUCOSE DIPSTICK (test NEGATIVE mg/dL NEG code = DGLUU) UA BILIRUBIN DIPSTICK NEGATIVE mg/dL NEG (test code = BILU) UA KETONE DIPSTICK (test NEGATIVE mg/dL NEG code = KETU) UA SPECIFIC GRAVITY (test 1.020 SG 1.005-1.030 code = SGU) UA BLOOD DIPSTICK (test 1+ mg/DL NEG A code = [place]) UA PH DIPSTICK (test code 6.0 pH UNITS 5.0-7.0 = FOSTER) UA PROTEIN DIPSTICK (test NEGATIVE mg/dL NEG code = PROU) UA UROBILINIOGEN DIPSTICK 0.2 mg/dL <2.0 (test code = URO) UA NITRITE DIPSTICK (test NEGATIVE SCREEN NEG code = SU) UA LEUKOCYTE ESTERASE NEGATIVE Leuk/mcL NEGATIVE DIPSTICK (test code = LEUU) UA CULTURE NEEDED? (test NO, WBC<10 Criteria Culture CHK code = UACULT) UA WBC (test code = WBCU) 3-5 #WBC/HPF 0-3 A UA RBC (test code = RBCU) 3-5 #RBC/HPF 0-3 A UA BACTERIA (test code = TRACE /HPF NONE-TRACE BACU) UA SQUAMOUS CELLS (test 1+ /HPF NONE A code = SQU) Indication for culture: Gross HematuriaVITAMIN [id number] 06:27:43 Test Item Value Reference Range Interpretation Comments VITAMIN B-12 (test code = 2840) 886 PG/ML 200-950 VITAMIN D, 25 [id number] 06:21:57 Test Item Value Reference Range Interpretation Comments VITAMIN D, 25 OH 25 NG/ML SEE BELOW L NOTE: 25-H YDROXYVITAMIN D (test code = 4958) ASSAY INC LUDES 25-HYDROXYVITAM IN D2 AND D3. METHODOLOGY IS CHEMILUMINESCEN T IMMUNOASSAY. INTERPRETIVE RA NGES PEDIATRIC (<17 YEARS) . . . . . . . . . . . NG/ML 20-100ADULT: IN SUFFICIENT . . . . . . . . . . . . . . NG/ML <20 SUBOP TIMAL . . . . . . . . . . . . . . . NG/ML 20-29 OPT IMAL . . . . . . . . . . . . . . . . . NG/ML 30-100 CBC W/AUTO DIFF WITH [id number] 03:12:55 Test Item Value Reference Range Interpretation Comments WBC (test code = 6.2 K/UL 3.5-11.0 1001) RBC (test code = 4.22 M/UL 3.80-5.40 1002) HEMOGLOBIN (test code 10.6 G/DL 11.5-15.5 L = 1003) HEMATOCRIT (test code 32.2 % 34.0-45.0 L = 1004) MCV (test code = 76.3 fL 80.0-99.0 L 1005) MCH (test code = 25.1 PG 25.0-33.0 1006) MCHC (test code = 32.9 G/DL 31.0-36.0 1007) RDW (test code = 16.4 % 11.5-15.0 H 1038) NEUTROPHILS (test 60.9 % code = 1008) LYMPHOCYTES (test 26.2 % code = 1010) MONOCYTES (test code 7.9 % = 1011) EOSINOPHILS (test 3.7 % code = 1012) BASOPHILS (test code 0.8 % = 1013) IMMATURE GRANULOCYTES 0.5 % (test code = 1036) NUCLEATED RBCS (test 0.0 /100 WBC'S See_Comment [Aut omated code = 1065) message] The sy stem which generated this result transmitted reference range : 0.0. The refere nce range was not u sed to interpret th is result as normal/abnormal . PLATELET COUNT (test 286 K/UL 130-400 code = 1015) ABSOLUTE NEUTROPHILS 3.77 K/UL 1.50-7.50 (test code = 1066) ABSOLUTE LYMPHOCYTES 1.62 K/UL 1.00-4.00 (test code = 1067) ABSOLUTE MONOCYTES 0.49 K/UL 0.20-1.00 (test code = 1068) ABSOLUTE EOSINOPHILS 0.23 K/UL 0.00-0.50 (test code = 1040) ABSOLUTE BASOPHILS 0.05 K/UL 0.00-0.20 (test code = 1069) ABS IMMATURE 0.03 K/UL 0.00-0.10 GRANULOCYTES (test code = 1020) ABS NUCLEATED RBCS 0.00 K/UL 0.00-0.11 (test code = 67892) IRON, [id number] 02:49:28 Test Item Value Reference Range Interpretation Comments IRON, SERUM (test 26 UG/DL 37-145 L UNLESS OT HERWISE code = 2222) INDICATED, ALL TESTING PERFORMED ATCLI N[facility] PATHOLOG[facility], [employer]. [address] [place] [address] DIRECTOR: KENIA ESCAMILLA M.D. CLIA NUMBER [id number] CAP ACCREDITATION N O. [id number] - CT ABD PELVIS [id number] 22:09:00 [facility] 1975 Sex: F Name: LIANA ASHBY [facility] : 1975 Age/S: 46 / F [address] [address] Unit #: [id number] Loc: [place] [address] Phys: Tavon Pelaez MD Acct: [id number] Dis Date: Status: REG ER PHONE #: [phone] Exam Date: 10/10/20212144 FAX #: Reason: abdominal pain EXAMS: CPT: [id number] CT ABD PELVIS W/CONT 15432 HISTORY: Abdominal pain and back pain vomiting x2 days. CT abdomen and pelvis, contrast enhanced. Reformatted sagittal and coronal images. COMPARISON: September 03, 2021 Automated exposure control, iterative reconstruction technique, and/or adjustment of mA and/or kV according to patient's size was utilized for optimum radiation dose reduction. Following the intravenous administration of 100 ml of Isovue 300 but no oral contrast, a study of the abdomen and pelvis was performed. The study includes some of the lung bases, which appear to be clear of infiltrates. Tiny lung nodules are seen at the lung bases peripherally. Use date back to August 07, 2018 appearing be stable suggesting benign disease. No pericardial or pleural fluid can be found. Homogeneous liver perfusion is seen. Margins are smooth. Cholecystectomy. Spleen intact with benign calcifications medially. Upper normalsize at 13.7 cm. Pancreas uniform in its thickness and density. No ductal dilatation. Adrenals and kidneys are intact. No kidney stones, obstruction or stranding. The aorta normal diameter and perfusion. 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 The right iliac vein extends into the IVC as usual. No adenopathy found. Surgery changes appear to be similar. No dilated segments. Small bowel anastomosis in the right lower quadrant intact. Appendix normal. The study of the pelvis shows uterus midline. Bladder intact no wall thickening seen. No free fluid. No adnexal abnormality. No findings PAGE 1 Signed Report (CONTINUED) [facility]: [facility] 1975 Age/S: 46 / F [address] [address] Unit #: [id number] Loc: [place] [address] Phys: Tavon Pelaez MD Acct: [id number] Dis Date: Status: REG ER PHONE #: [phone] Exam Date: 2144 FAX #: Reason: abdominal pain EXAMS: CPT: [id number] CT ABD PELVIS W/CONT 19214 <Continued> of inguinal hernia. Bony structures intact. No bony destructive process. Spine with good alignment. IMPRESSION: No acute abnormality in the abdomen or pelvis. Bowel loop pattern free of obstruction. Postop stomach and small bowel changes, stable. No free fluid evident. Location: H 27 at 2209 Reported and signed by: Mac Sue M.D. CC: Lexus Copeland MD; Tavon Pelaez MD Technologist:Too Lee, RT(R)(CT) CTDI:DLP: Trnscb Date/Time: 10/10/2021 (2208) [email or web address] Orig Print D/T: S: 10/10/2021 (2212) PAGE 2 Signed ReportCBC W/AUTO [id number] 20:31:00 Test Item Value Reference Range Interpretation Comments WHITE BLOOD CELL (test code = 8.5 K/mm3 3.5-11.0 N WBC) RED BLOOD CELL (test code = 4.01 M/mm3 4.70-6.10 L RBC) HEMOGLOBIN (test code = HGB) 10.1 G/DL 10.4-14.9 L HEMATOCRIT (test code = HCT) 33.0 % 31.5-44.1 N MEAN CELL VOLUME (test code = 82.3 Fl 84.5-98.6 L MCV) MEAN CELL HGB (test code = MCH) 25.2 pg 27.0-34.2 L MEAN CELL HGB CONCETRATION 30.6 G/DL 31.5-34.0 L (test code = MCHC) RED CELL DISTRIBUTION WIDTH 17.6 SD 11.5-14.5 H (test code = RDW) PLATELET COUNT (test code = 246 K/mm3 150-450 N PLT) MEAN PLATELET VOLUME (test code 10.40 fL 7.0-10.5 N = MPV) NEUTROPHIL % (test code = NT%) 65.8 % 40-76 N IMMATURE GRANULOCYTE % (test 0.4 % 0.0-5.0 N code = IG%) LYMPHOCYTE % (test code = LY%) 22.8 % 20.5-51.1 N MONOCYTE % (test code = MO%) 8.5 % 1.7-9.3 N EOSINOPHIL % (test code = EO%) 2.1 % 0.0-6.0 N BASOPHIL % (test code = BA%) 0.4 % 0.0-2.0 N NUCLEATED RBC % (test code = 0.0 /100WBC% 0.0-1.0 N NRBC%) NEUTROPHIL # (test code = NT#) 5.6 K/mm3 1.8-7.6 N IMMATURE GRANULOCYTE # (test 0.03 x10 3/uL 0.00-0.03 N code = IG#) LYMPHOCYTE # (test code = LY#) 1.9 K/mm3 0.6-3.2 N MONOCYTE # (test code = MO#) 0.7 K/mm3 0.3-1.1 N EOSINOPHIL # (test code = EO#) 0.2 K/mm3 0.0-0.4 N BASOPHIL # (test code = BA#) 0.0 K/mm3 0.0-0.1 N NUCLEATED RBC # (test code = 0.0 K/mm3 0.0-0.1 N NRBC#) MANUAL DIFF REQUIRED (test code NO DIFF/SCN CRITERIA = MDIFF) UA RFLX MICR CULT IF [id number] 20:28:00 Test Item Value Reference Range Interpretation Comments UA COLOR (test code = YELLOW discript YEL/STRAW COLU) UA APPEARANCE (test code HAZY discript CLEAR A = APPU) UA GLUCOSE DIPSTICK (test NEGATIVE mg/dL NEG code = DGLUU) UA BILIRUBIN DIPSTICK NEGATIVE mg/dL NEG (test code = BILU) UA KETONE DIPSTICK (test NEGATIVE mg/dL NEG code = KETU) UA SPECIFIC GRAVITY (test <=1.005 SG 1.005-1.030 code = SGU) UA BLOOD DIPSTICK (test 1+ mg/DL NEG A code = WINSTON) UA PH DIPSTICK (test code 7.0 pH UNITS 5.0-7.0 = FOSTER) UA PROTEIN DIPSTICK (test NEGATIVE mg/dL NEG code = PROU) UA UROBILINIOGEN DIPSTICK 0.2 mg/dL <2.0 (test code = URO) UA NITRITE DIPSTICK (test NEGATIVE SCREEN NEG code = SU) UA LEUKOCYTE ESTERASE TRACE Leuk/mcL NEGATIVE A DIPSTICK (test code = LEUU) UA CULTURE NEEDED? (test NO, WBC<10 Criteria Culture CHK code = UACULT) UA WBC (test code = WBCU) 1-3 #WBC/HPF 0-3 UA RBC (test code = RBCU) 1-3 #RBC/HPF 0-3 UA BACTERIA (test code = TRACE /HPF NONE-TRACE BACU) UA SQUAMOUS CELLS (test TRACE /HPF NONE code = SQU) Indication for culture: Dysuria/FrequencySOURCE OF URINE: CLEAN CATCHBASIC METABOLIC [id number] 20:27:00 Test Item Value Reference Range Interpretation Comments SODIUM (test code = NA) 140 mmol/L 134-147 N POTASSIUM (test code = K) 4.2 mmol/L 3.4-5.0 N CHLORIDE (test code = CL) 108 mmol/L 100-108 N CARBON DIOXIDE (test code = CO2) 26 mmol/L 21-32 N ANION GAP (test code = GAP) 6.0 GAP calc 4.0-15.0 N GLUCOSE (test code = GLU) 101 MG/DL 70-110 N BLOOD UREA NITROGEN (test code = 15 MG/DL 7-18 N BUN) GLOMERULAR FILTRATION RATE (test 57 estGFR >60 L code = GFR) CREATININE (test code = CREAT) 1.1 MG/DL 0.6-1.0 H CALCIUM (test code = CA) 8.9 MG/DL 8.5-10.1 N Completed by Nursing: NOHEPATIC FUNCTION [id number] 20:27:00 Test Item Value Reference Range Interpretation Comments TOTAL PROTEIN (test code = PROT) 7.1 G/DL 6.4-8.2 N ALBUMIN (test code = ALB) 2.9 G/DL 3.4-5.0 L BILIRUBIN TOTAL (test code = 0.10 MG/DL 0.2-1.2 L BILT) BILIRUBIN DIRECT (test code = < 0.10 MG/DL 0.00-0.30 N BILD) BILIRUBIN INDIRECT (test code = 0.00 MG/DL 0.2-1.2 L BILIND) SGOT/AST (test code = AST) 14 Unit/L 15-37 L SGPT/ALT (test code = ALT) 18 Unit/L 12-78 N ALKALINE PHOSPHATASE TOTAL (test 144 Unit/L 45-117 H code = ALKP) Completed by Nursing: [id number] 20:27:00 Test Item Value Reference Range Interpretation Comments LIPASE (test code = LIP) 120 Unit/L 114-286 N Completed by Nursing: NOTROP-I HIGH [id number] 20:27:00 Test Item Value Reference Range Interpretation Comments TROP-I HIGH 3.8 ng/L 0-34 N CAUTION: Units of the SENSITIVITY (test current te st methodology code = TROPIHS) (ng/L) diffe rfrom the prior test meth odology (ng/mL) by a fa ctor of 1000. 99t h Percentile Uppe r Reference Limit (URL):Fem ales: 34 ng/LMales: 54 n g/L In order to distin guish acute elevations of h igh sensitivitytrop onin from other clinical conditions, the FourthUnive rsal Definition of M yocardial Infarction stressesclinica l assessment and the demonstration o f a rise and/orfall in s erial troponin result s above the URL. Results fr om different metho dologies should not be c omparedto one another as quantitative re sults and URLs may varyby method. Completed by Nursing: NOLACTIC [id number] 20:21:00 Test Item Value Reference Range Interpretation Comments LACTIC ACID (test code = LACT) 1.2 mmol/L 0.4-2.0 N HCG SERUM [id number] 20:15:00 Test Item Value Reference Range Interpretation Comments HCG SERUM QUAL (test SERUM NEGATIVE SCREEN NEGATIVE code = HCGQL) BASIC METABOLIC [id number] 10:38:00 Test Item Value Reference Range Interpretation Comments SODIUM (test code = NA) 137 mmol/L 134-147 N POTASSIUM (test code = K) 4.9 mmol/L 3.4-5.0 N CHLORIDE (test code = CL) 108 mmol/L 100-108 N CARBON DIOXIDE (test code = CO2) 25 mmol/L 21-32 N ANION GAP (test code = GAP) 4.0 GAP calc 4.0-15.0 N GLUCOSE (test code = GLU) 85 MG/DL 70-110 N BLOOD UREA NITROGEN (test code = 22 MG/DL 7-18 H BUN) GLOMERULAR FILTRATION RATE (test 47 estGFR >60 L code = GFR) CREATININE (test code = CREAT) 1.3 MG/DL 0.6-1.0 H CALCIUM (test code = CA) 9.6 MG/DL 8.5-10.1 N HEPATIC FUNCTION [id number] 10:38:00 Test Item Value Reference Range Interpretation Comments TOTAL PROTEIN (test code = PROT) 7.5 G/DL 6.4-8.2 N ALBUMIN (test code = ALB) 3.1 G/DL 3.4-5.0 L BILIRUBIN TOTAL (test code = 0.20 MG/DL 0.2-1.2 N BILT) BILIRUBIN DIRECT (test code = < 0.10 MG/DL 0.00-0.30 N BILD) BILIRUBIN INDIRECT (test code = 0.10 MG/DL 0.2-1.2 L BILIND) SGOT/AST (test code = AST) 9 Unit/L 15-37 L SGPT/ALT (test code = ALT) 16 Unit/L 12-78 N ALKALINE PHOSPHATASE TOTAL (test 153 Unit/L 45-117 H code = ALKP) [id number] 10:38:00 Test Item Value Reference Range Interpretation Comments LIPASE (test code = LIP) 130 Unit/L 114-286 N CBC W/AUTO [id number] 10:19:00 Test Item Value Reference Range Interpretation Comments WHITE BLOOD CELL (test code = 9.3 K/mm3 3.5-11.0 N WBC) RED BLOOD CELL (test code = 4.18 M/mm3 4.70-6.10 L RBC) HEMOGLOBIN (test code = HGB) 10.4 G/DL 10.4-14.9 N HEMATOCRIT (test code = HCT) 34.5 % 31.5-44.1 N MEAN CELL VOLUME (test code = 82.5 Fl 84.5-98.6 L MCV) MEAN CELL HGB (test code = MCH) 24.9 pg 27.0-34.2 L MEAN CELL HGB CONCETRATION 30.1 G/DL 31.5-34.0 L (test code = MCHC) RED CELL DISTRIBUTION WIDTH 17.3 SD 11.5-14.5 H (test code = RDW) PLATELET COUNT (test code = 255 K/mm3 150-450 N PLT) MEAN PLATELET VOLUME (test code 10.80 fL 7.0-10.5 H = MPV) NEUTROPHIL % (test code = NT%) 69.1 % 40-76 N IMMATURE GRANULOCYTE % (test 0.4 % 0.0-5.0 N code = IG%) LYMPHOCYTE % (test code = LY%) 19.4 % 20.5-51.1 L MONOCYTE % (test code = MO%) 8.1 % 1.7-9.3 N EOSINOPHIL % (test code = EO%) 2.6 % 0.0-6.0 N BASOPHIL % (test code = BA%) 0.4 % 0.0-2.0 N NUCLEATED RBC % (test code = 0.0 /100WBC% 0.0-1.0 N NRBC%) NEUTROPHIL # (test code = NT#) 6.4 K/mm3 1.8-7.6 N IMMATURE GRANULOCYTE # (test 0.04 x10 3/uL 0.00-0.03 H code = IG#) LYMPHOCYTE # (test code = LY#) 1.8 K/mm3 0.6-3.2 N MONOCYTE # (test code = MO#) 0.8 K/mm3 0.3-1.1 N EOSINOPHIL # (test code = EO#) 0.2 K/mm3 0.0-0.4 N BASOPHIL # (test code = BA#) 0.0 K/mm3 0.0-0.1 N NUCLEATED RBC # (test code = 0.0 K/mm3 0.0-0.1 N NRBC#) MANUAL DIFF REQUIRED (test code NO DIFF/SCN CRITERIA = MDIFF) - XR T-SPINE 2 [id number] 09:52:00 [facility] : 1975 Sex: F Name: LIA[facility]SH[facility] 1975 Age/S: 46 / F [address] [address] [place] Unit #: [id number] Loc: [place] [address] Phys: LisBrandon Acct: [id number] Dis Date: Status: PRE ER PHONE #: [phone] Exam Date: 09/19/2021 0950 FAX #: Reason: fall/pain EXAMS: CPT: [id number] XR T-SPINE 2 VIEWS 54139 Fluoro Time: DAP (Gy m2): Air Kerma (mGy): EXAMINATION: - XR T-SPINE 2 VIEWS HISTORY: Fall and pain COMPARISON: CT scan performed June 26, 2020 LOCATION CODE: C3 FINDINGS: 3 views of thethoracic spine are submitted for evaluation. The thoracic vertebral bodies are normal in height and alignment. There is no evidence of fracture or subluxation. Intervertebral disc spaces are relatively well-preserved. The adjacent bony and soft tissue structures are unremarkable. IMPRESSION: No acuteabnormality. at 0952 Reported and signed by: Alyson Bran M.D. CC: Lexus Copeland MD; Brandon Hays DO PAGE 1 Signed Report Name: GUANAKITO ASHBY [facility] : 1975 Age/S: 46 / F [address] [facility] Unit #: [id number] Loc: [place] [address] Phys: Brandon Hays DO Acct: [id number] Dis Date: Status: PRE ER PHONE #: [phone] Exam Date: 09/19/2021 0950 FAX #: Reason: fall/pain EXAMS: CPT: [id number] XR T-SPINE 2 VIEWS 45761 Fluoro Time: DAP (Gy m2): Air Kerma (mGy): <Continued> Technologist: Autumn Gregory, RT(R) Trnscb Date/Time: 09/19/2021 (951) [email or web address] Orig Print D/T: S: 09/19/2021 (0959) PAGE 2 Signed Report- XR SHOULDER 2+V [id number] 09:50:00 [facility] : 1975 Sex: F Name: LIANA ASHBY [facility] : 1975 Age/S: 46 / F [address] [address] [place] Unit #: [id number] Loc: [place] [address] Phys: Brandon Hays DO Acct: [id number] Dis Date: Status: PRE ER PHONE #: [phone] Exam Date: 09/19/2021941 FAX #: Reason: fall/pain EXAMS: CPT: [id number] XR SHOULDER 2+[place] [address] Fluoro Time: DAP (Gy m2): Air Kerma (mGy): Study: - XR SHOULDER 2+V LT INDICATION:Fall and pain PRIOR EXAMS:None Location code C3 FINDINGS: 3 views of the left shoulder are submitted for evaluation. There is no evidence of fracture, dislocation or destructive osseous lesion. The articular spaces are maintained and the soft tissues are normal. IMPRESSION: Normal shoulder at 0950 Reported and signed by: Alyson Bran M.D. CC: Lexus Copeland MD; Brandon Hays DO PAGE 1 Signed Report Name: LIANA ASHBY [facility] : 1975 Age/S: 46 / F [address] [address] [place] Unit #: [id number] Loc: [place] [address] Phys: Brandon Hays DO Acct: [id number] Dis Date: Status: PRE ER PHONE #: [phone] Exam Date: 09/19/2021 0942 FAX #: Re ason: fall/pain EXAMS: CPT: [id number] XR SHOULDER 2+[place] [address] Fluoro Time: DAP (Gy m2): Air Kerma (mGy): <Continued> Technologist: Autumn Gregory, RT(R) Trnscb Date/Time: 09/19/2021 (949) [email or web address] Orig Print D/T: S: 09/19/2021 (0953) PAGE 2 Signed [id number] 15:28:00 Test Item Value Reference Range Interpretation Comments LIPASE (test code = LIP) 86 Unit/L 114-[address], [id number] 14:37:00Unlisted Reason for Exam - Click Yes and Enter Reason Below->NoIs this for enterography?->NoWill this procedure require oral contrast?->No [facility] : 1975 Sex: FFINALREPORT TECHNIQUE: CT of the abdomen and pelvis WITH intravenous contrast and WITHOUT oral contrast. Dose modulation, iterative reconstruction, and/or weight-based adjustment of themA/kV was utilized to reduce the radiation dose to as low as reasonably achievable. INDICATION: Bowel obstruction high-grade suspected. COMPARISON: None. FINDINGS: LOWER THORAX: A few bilateral lower lobe pulmonary nodules measure up to 0.3 cm. Mild bibasilar atelectasis. HEPATOBILIARY: No focal hepatic lesions. Prior cholecystomy. No biliary ductal dilatation.SPLEEN: 13.5 cm splenomegaly. A calcified granuloma in the spleen measures 0.7 cm. PANCREAS: No focal masses or ductal dilatation. ADRENALS: No adrenal nodules.KIDNEYS/URETERS: No hydronephrosis, stones, or masses. Mild right renal cortical scarring. Moderate left lower pole renal cortical scarring. PELVIC ORGANS/BLADDER: A 0.5 cm anterior uterine calcification is likely a calcified leiomyoma. PERITONEUM/RETROPERITONEUM: No free air or fluid. Small, fat filled supraumbilical ventral hernias.LYMPH NODES: No lymphadenopathy.VESSELS: Moderateaortoiliac calcification. GI TRACT: Prior gastric surgery with at least 2 prior small bowel resections. There is some prominent small bowel distal to this resection. However, this is an expected finding after surgery. No distention or wall thickening. The appendix is normal. BONES AND SOFT TISSUES: A sclerotic focus in the left transverse process of T8 measures 1.2 cm, has a narrow zone of transition, and appears aggressive. This is most likely a bone island. IMPRESSION: 1.No bowel obstruction 2.No acute abnormality in the abdomen or pelvis 3.Mild splenomegaly 4.The bilateral lower lobe pulmonary nodules measure up to 0.3 cm. If the patient is at increased risk for lung cancer, an optional follow-up chest CT can be obtained in 12 months. Otherwise, no CT follow-up is necessary. These follow-up recommendations are per the Fleischner Society Guidelines from 2017. Signed: Sushant Wood MDReport Verifie d Date/Time: 09/14/2021 14:37:57 Reading Location: [facility] C013Y CT Body Reading Room REHENSIVE METABOLIC [id number] 13:48:56 Test Item Value Reference Range Interpretation Comments TOTAL PROTEIN 7.6 gm/dL 6.0-8.5 Specimen sligh tly (BEAKER) (test code = hemoly zed 770) ALBUMIN (BEAKER) 4.2 g/dL 3.5-5.0 Specimen sl ightly (test code = 1145) hemolyzed ALKALINE PHOSPHATASE 145 U/L 30-115 H (BEAKER) (test code = 346) BILIRUBIN TOTAL 0.6 mg/dL 0.1-1.2 Specimen sli ghtly (BEAKER) (test code = hemoly zed 377) SODIUM (BEAKER) (test 137 meq/L 135-148 code = 381) POTASSIUM (BEAKER) 5.4 meq/L 3.6-5.5 Specimen slightly (test code = 379) hemolyzed CHLORIDE (BEAKER) 104 meq/L 98-106 (test code = 382) CO2 (BEAKER) (test 24 meq/L 24-32 code = 355) BLOOD UREA NITROGEN 17 mg/dL 10-26 (BEAKER) (test code = 354) CREATININE (BEAKER) 0.98 mg/dL 0.50-1.20 Specimen slightly (test code = 358) hemolyzed GLUCOSE RANDOM 92 mg/dL 70-110 (BEAKER) (test code = 652) CALCIUM (BEAKER) 9.3 mg/dL 8.5-10.5 (test code = 697) AST (SGOT) (BEAKER) 29 U/L 5-40 Specimen slightly (test code = 353) hemolyzed ALT (SGPT) (BEAKER) 15 U/L 5-50 Specimen slightly (test code = 347) hemolyzed EGFR (BEAKER) (test 61 mL/min/1.73 ESTIMA KODY GFR IS code = 1092) sq m NOT ACCURATE CREATININE CLEARANCE IN PREDICTING GLOMERULAR FILTRATION RATE . ESTIMATED GFR I S NOT APPLICABLE FOR DIALYSIS PATIEN TS. CBC W/PLT COUNT & AUTO [id number] 13:33:43 Test Item Value Reference Range Interpretation Comments WHITE BLOOD CELL COUNT (BEAKER) 11.0 K/ L 4.0-10.0 H (test code = 775) RED BLOOD CELL COUNT (BEAKER) 4.31 M/ L 4.00-5.00 (test code = 761) HEMOGLOBIN (BEAKER) (test code = 10.9 GM/DL 12.0-15.0 L 410) HEMATOCRIT (BEAKER) (test code = 33.3 % 36.0-45.0 L 411) MEAN CORPUSCULAR VOLUME (BEAKER) 77.2 fL 82.0-99.0 L (test code = 753) MEAN CORPUSCULAR HEMOGLOBIN 25.3 pg 27.0-33.0 L (BEAKER) (test code = 751) MEAN CORPUSCULAR HEMOGLOBIN CONC 32.8 GM/DL 32.0-36.0 (BEAKER) (test code = 752) RED CELL DISTRIBUTION WIDTH 17.0 % 10.3-14.2 H (BEAKER) (test code = 412) PLATELET COUNT (BEAKER) (test 312 K/CU MM 150-430 code = 756) MEAN PLATELET VOLUME (BEAKER) 8.8 fL 6.5-10.5 (test code = 754) NEUTROPHILS RELATIVE PERCENT 69 % (BEAKER) (test code = 429) LYMPHOCYTES RELATIVE PERCENT 19 % (BEAKER) (test code = 430) MONOCYTES RELATIVE PERCENT 8 % (BEAKER) (test code = 431) EOSINOPHILS RELATIVE PERCENT 3 % (BEAKER) (test code = 432) BASOPHILS RELATIVE PERCENT 1 % (BEAKER) (test code = 437) NEUTROPHILS ABSOLUTE COUNT 7.62 K/ L 1.80-8.00 (BEAKER) (test code = 670) LYMPHOCYTES ABSOLUTE COUNT 2.04 K/ L 1.48-4.50 (BEAKER) (test code = 414) MONOCYTES ABSOLUTE COUNT (BEAKER) 0.92 K/ L 0.00-1.30 (test code = 415) EOSINOPHILS ABSOLUTE COUNT 0.31 K/ L 0.00-0.50 (BEAKER) (test code = 416) BASOPHILS ABSOLUTE COUNT (BEAKER) 0.09 K/ L 0.00-0.20 (test code = 417) Screen, [id number] 13:33:25 Test Item Value Reference Range Interpretation Comments Preg Test, Ur (test code = 2112-1) [facility] [id number] 13:33:25 Test Item Value Reference Range Interpretation Comments TEST URINE (BEAKER) (test Negative code = 583) Blood leukocytes automated count (number/volume)2021-09-12 22:20:00 Test Item Value Reference Range Interpretation Comments White Blood Count (test code = 6690-2) 11.11 4.8-10.8 [facility] National Provider IdentifierBlood erythrocytes automated count (number/volume)2021-09-12 22:20:00 Test Item Value Reference Range Interpretation Comments Red Blood Count (test code = 789-8) 4.11 3.6-5.1 [facility] National Provider IdentifierBlood hemoglobin measurement (moles/volume) 2021-09-12 22:20:00 Test Item Value Reference Range Interpretation Comments Hemoglobin (test code = 94375-4) 10.3 12.0-16.0 [facility] Provider IdentifierAutomated blood hematocrit (volume fraction) 2021-09-12 22:20:00 Test Item Value Reference Range Interpretation Comments Hematocrit (test code = 4544-3) 33.7 34.2-44.1 [facility] Provider IdentifierAutomated erythrocyte mean corpuscular volume 2021-09-12 22:20:00 Test Item Value Reference Range Interpretation Comments Mean Corpuscular Volume (test code = 82.0 81-99 787-2) [facility] Provider IdentifierAutomated erythrocyte mean corpuscular hemoglobin (mass per erythrocyte)2021-09-12 22:20:00 Test Item Value Reference Range Interpretation Comments Mean Corpuscular Hemoglobin (test code 25.1 28-32 = 785-6) [facility] Provider IdentifierAutomated erythrocyte mean corpuscular hemoglobin concentration measurement (mass/volume)2021-09-12 22:20:00 Test Item Value Reference Range Interpretation Comments Mean Corpuscular Hemoglobin Concent 30.6 31-35 (test code = 786-4) [facility] Provider IdentifierRDW [id number] 22:20:00 Test Item Value Reference Range Interpretation Comments Red Cell Distribution Width (test code 16.4 11.7-14.4 = 52843-6) [facility] [facility] Provider IdentifierAutomated blood platelet count (count/volume) 2021-09-12 22:20:00 Test Item Value Reference Range Interpretation Comments Platelet Count (test code = 777-3) 300 140-360 [facility] Provider IdentifierAutomated blood segmented neutrophil count as percentage of total plyowjyona9065-62-45 22:20:00 Test Item Value Reference Range Interpretation Comments Neutrophils (%) (Auto) (test code = 68.4 38.7-80.0 36043-5) [facility] Provider IdentifierAutomated blood lymphocyte count as percentage ot total fmxfcaxhme5593-93-10 22:20:00 Test Item Value Reference Range Interpretation Comments Lymphocytes (%) (Auto) (test code = 20.3 18.0-39.1 736-9) [facility] Provider IdentifierAutomated blood monocyte count as percentage of total whghmmdsas3827-84-48 22:20:00 Test Item Value Reference Range Interpretation Comments Monocytes (%) (Auto) (test code = 8.5 4.4-11.3 5905-5) [facility] Provider IdentifierAutomated blood eosinophil count as percentage of total zjvdtvxsgz6646-38-58 22:20:00 Test Item Value Reference Range Interpretation Comments Eosinophils (%) (Auto) (test code = 1.8 0.0-6.0 713-8) [facility] Provider IdentifierAutomated blood basophil count as percentage of total bhusdkbaii9893-61-91 22:20:00 Test Item Value Reference Range Interpretation Comments Basophils (%) (Auto) (test code = 0.5 0.0-1.0 706-2) [facility] IdentifierFluoroscopic procedure less than one hour izuulahx7777-85-25 22:20:00 Test Item Value Reference Range Interpretation Comments IM GRANULOCYTES % (test code = IM 0.5 0.0-1.0 GRANULOCYTES %) [facility] Provider IdentifierAutomated blood neutrophil rabpe0053-00-49 22:20:00 Test Item Value Reference Range Interpretation Comments Neutrophils # (Auto) (test code = 7.6 2.1-6.9 751-8) [facility] Provider IdentifierBlood lymphocytes count (number/volume) 2021-09-12 22:20:00 Test Item Value Reference Range Interpretation Comments Lymphocytes # (Auto) (test code = 2.3 1.0-3.2 73437-6) [facility] Provider IdentifierBlood monocytes automated count (number/volume) 2021-09-12 22:20:00 Test Item Value Reference Range Interpretation Comments Monocytes # (Auto) (test code = 742-7) 0.9 0.2-0.8 [facility] Provider IdentifierAutomated blood eosinophil [id number] 22:20:00 Test Item Value Reference Range Interpretation Comments Eosinophils # (Auto) (test code = 0.2 0.0-0.4 711-2) [facility] Provider IdentifierAutomated blood basophil count (count/volume) 2021-09-12 22:20:00 Test Item Value Reference Range Interpretation Comments Basophils # (Auto) (test code = 704-7) 0.1 0.0-0.1 [facility] Provider IdentifierFluoroscopic procedure less than one hour apxjlgud0455-81-54 22:20:00 Test Item Value Reference Range Interpretation Comments Absolute Immature Granulocyte (auto 0.05 0-0.1 (test code = Absolute Immature Granulocyte (auto) [facility] Provider IdentifierSerum or plasma sodium measurement (moles/volume)2021-09-12 22:20:00 Test Item Value Reference Range Interpretation Comments Sodium Level (test code = 2951-2) 138 136-145 [facility] Provider IdentifierSerum or plasma potassium measurement (moles/volume)2021-09-12 22:20:00 Test Item Value Reference Range Interpretation Comments Potassium Level (test code = 2823-3) 4.3 3.5-5.1 [facility] Provider IdentifierSerum or plasma chloride measurement (moles/volume)2021-09-12 22:20:00 Test Item Value Reference Range Interpretation Comments Chloride Level (test code = 2075-0) 106 98-107 [facility] Provider IdentifierSerum or plasma carbon dioxide, total measurement (moles/volume)2021-09-12 22:20:00 Test Item Value Reference Range Interpretation Comments Carbon Dioxide Level (test code = -2027-) [facility] Provider IdentifierSerum or plasma anion [id number] 22:20:00 Test Item Value Reference Range Interpretation Comments Anion Gap (test code = 89145-1) 12.3 8-16 [facility] Provider IdentifierSerum or plasma urea nitrogen measurement (mass/volume)2021-09-12 22:20:00 Test Item Value Reference Range Interpretation Comments Blood Urea Nitrogen (test code = 12-11 3094-0) [facility] Provider IdentifierSerum or plasma creatinine measurement (mass/volume)2021-09-12 22:20:00 Test Item Value Reference Range Interpretation Comments Creatinine (test code = 2160-0) 1.16 0.57-1.11 [facility] Provider IdentifierSerum or plasma urea nitrogen/creatinine mass iwxpw8599-06-68 22:20:00 Test Item Value Reference Range Interpretation Comments BUN/Creatinine Ratio (test code = 11-10 3097-3) [facility] Provider IdentifierEstimated glomerular filtration rate (GFR) ylwyvewzayvmc9133-52-88 22:20:00 Test Item Value Reference Range Interpretation Comments Estimated GFR (CKD-EPI) 51 See_Comment [Au tomated message] The (test code = 480652316) syst em which generated this result tra nsmitted reference range : 60-. The reference range was not used to interpr et this result as normal/abnormal . [facility] National Provider IdentifierGlucose zgubeynntpk0696-51-46 22:20:00 Test Item Value Reference Range Interpretation Comments Glucose Level (test code = XAA0357) 96 74-118 [facility] National Provider IdentifierSerum or plasma calcium measurement (mass/volume)2021-09-12 22:20:00 Test Item Value Reference Range Interpretation Comments Calcium Level (test code = 56571-8) 9.1 8.4-10.2 [facility] National Provider IdentifierSerum or plasma total bilirubin measurement (mass/volume)2021-09-12 22:20:00 Test Item Value Reference Range Interpretation Comments Total Bilirubin (test code = 1975-2) 0.1 0.2-1.2 [facility] National Provider IdentifierFluoroscopic procedure less than one hour rijgbigd0267-95-57 22:20:00 Test Item Value Reference Range Interpretation Comments Aspartate Amino Transf (AST/SGOT) (test 13 5-34 code = Aspartate Amino Transf (AST/SGOT)) [facility] National Provider IdentifierSerum or plasma alanine aminotransferase measurement (enzymatic activity/volume)2021-09-12 22:20:00 Test Item Value Reference Range Interpretation Comments Alanine Aminotransferase (ALT/SGPT) 11 0-55 (test code = 1742-6) [facility] National Provider IdentifierSerum or plasma protein measurement (mass/volume)2021-09-12 22:20:00 Test Item Value Reference Range Interpretation Comments Total Protein (test code = 2885-2) 7.5 6.5-8.1 [facility] National Provider IdentifierSerum or plasma albumin measurement (mass/volume)2021-09-12 22:20:00 Test Item Value Reference Range Interpretation Comments Albumin (test code = 1751-7) 3.1 3.5-5.0 [facility] National Provider IdentifierPlasma globulin measurement (mass/volume) 2021-09-12 22:20:00 Test Item Value Reference Range Interpretation Comments Globulin (test code = 78371-9) 4.4 2.3-3.5 [facility] National Provider IdentifierSerum or plasma albumin/globulin mass ratio 2021-09-12 22:20:00 Test Item Value Reference Range Interpretation Comments Albumin/Globulin Ratio (test code = 0.7 0.8-2.0 1759-0) [facility] National Provider IdentifierSerum or plasma alkaline phosphatase measurement (enzymatic activity/volume)2021-09-12 22:20:00 Test Item Value Reference Range Interpretation Comments Alkaline Phosphatase (test code = 134 40-150 6768-6) [facility] National Provider IdentifierSerum or plasma lipase measurement (enzymatic activity/volume)2021-09-12 22:20:00 Test Item Value Reference Range Interpretation Comments Lipase (test code = 3040-3) 8-78 [facility] Provider IdentifierSerum or plasma choriogonadotropin ( test) deyfbfsnq3351-24-12 22:20:00 Test Item Value Reference Range Interpretation Comments Human Chorionic Gonadotropin, Qual NEGATIVE NEGATIVE (test code = 2118-8) [facility] Provider IdentifierUA, Urinalysis Rflx Cult/[id number] 23:05:00 Test Item Value Reference Range Interpretation Comments Color,Urine (test code = UCOL) Yellow Yellow Clarity,Urine (test code = Clear Clear UCLAR) Ph, Urine (test code = UPH) 7.0 5.0-9.0 N Specific [place],Urine (test 1.010 1.005-1.030 N code = USG) Blood,Urine (test code = UBLD) Small mg/dL Negative A Protein,Urine (test code = Negative mg/dL Negative UPRO) Glucose,Urine (UA) (test code Negative mg/dL Negative = UGLU) Ketones,Urine (test code = Negative mg/dL Negative UKET) Nitrate,Urine (test code = Negative Negative UNIT) Bilirubin,Urine (test code = Negative mg/dL Negative UBIL) Urobilinogen,Urine (test code 0.2 E.U./dL Normal = UURO) Leukocyte Esterase,Urine (test Trace mg/dL Negative A code = ULEU) UF REFLEXUF REFLEXUrine [id number] 23:05:00 Test Item Value Reference Range Interpretation Comments RBC,Urine (test code = URBCUF) 6-10 /HPF 0-2 A WBC,Urine (test code = UWBCUF) 0-5 /HPF 0-5 Epithelial Cell,Urine (test 0-5 /HPF 0-5 code = UECUF) Casts,Urine (test code = None Seen /LPF None Seen UCASTUF) Bacteria,Urine (test code = None Seen /hpf None Seen UBACTUF) UF REFLEXUF REFLEXComplete Blood Count Auto [id number] 22:57:00 Test Item Value Reference Range Interpretation Comments White Blood Count (test code = 12.1 x10 3/uL 4.4-10.5 H WBCT) Red Blood Count (test code = 4.58 x10 6/uL 3.75-5.20 N RBC) Hemoglobin (test code = HGBT) 11.5 g/dL 12.2-14.8 L Hematocrit (test code = HCTT) 38.6 % 36.5-44.4 N Mean Corpuscular Volume (test 84.30 fL 80.00-100.00 N code = MCV) Mean Corpuscular Hemoglobin 25.1 pg 27.0-32.5 L (test code = MCH) Mean Corpuscular HGB Conc 29.80 g/dL 32.00-37.50 L (test code = MCHC) RDW Coefficient of Variation 16.6 % 11.5-14.5 H (test code = RDWCV) Platelet Count (test code = 335.0 x10 3/uL 140.0-440.0 N PLTT) Mean Platelet Volume (test 11.3 fL code = MPV) Immature Granulocytes % (Auto) 0.4 % 0.0-5.0 N (test code = IMMGRAN%) Neutrophils % (Auto) (test 66.6 % 36.0-70.0 N code = NE%) Lymphocytes % (Auto) (test 21.8 % 12.0-44.0 N code = LY%) Monocytes % (Auto) (test code 9.3 % 0.0-11.0 N = MO%) Eosinophils % (Auto) (test 1.7 % 0.0-7.0 N code = EO%) Basophils % (Auto) (test code 0.2 % 0.0-2.0 N = BA%) Immature Granulocytes # (Auto) 0.05 x10 3/uL (test code = IMMGRAN#) Neutrophils # (Auto) (test 8.1 x10 3/uL 1.6-7.4 H code = NE#) Lymphocytes # (Auto) (test 2.65 x10 3/uL 0.50-4.60 N code = LY#) Monocytes # (Auto) (test code 1.13 x10 3/uL 0.00-1.20 N = MO#) Eosinophils # (Auto) (test 0.21 x10 3/uL 0.00-0.74 N code = EO#) Basophils # (Auto) (test code 0.03 x10 3/uL 0.00-0.21 N = BA#) nRBC Abs (test code = NRBCA) 0 nRBC Pct (test code = NRBCP) 0 % HCG, Serum Qual (LAB)2021-09-10 22:57:00 Test Item Value Reference Range Interpretation Comments HCG, Serum Qual (LAB) (test code = Negative Negative HCGQ) Comprehensive Metabolic [id number] 22:57:00 Test Item Value Reference Range Interpretation Comments SODIUM (test code = NA) 141.0 mmol/L 136.0-145.0 N Potassium,K (test code = K) 5.1 mmol/L 3.0-5.1 N Chloride (test code = CL) 106 mmol/L 98-107 N Carbon Dioxide (test code = CO2) 26 mmol/L 20-31 N Anion Gap (test code = GAP) 9 mmol/L 5-15 N Blood Urea Nitrogen (test code = 20 mg/dL 9-23 N BUN) Creatinine (test code = CREATT) 1.00 mg/dL 0.55-1.02 N Creatinine Clr Calc Pharmacy 86.13 mL/min (test code = CRCLPHA) Estimated GFR ( Najma > 60 mL/min/1.73m2 (test code = EGFRAA) Estimated GFR (Non Afr Najma > 60 mL/min/1.73m2 (test code = EGFRNAA) BUN/Creatinine Ratio (test code 20 ratio 10-20 N = BCRATIO) Glucose (test code = GLU) 91 mg/dL 74-106 N Osmolality,Calculated (test code 294.1 = OSMOC) Calcium (test code = CA) 9.2 mg/dL 8.3-10.6 N Bilirubin,Total (test code = < 0.2 mg/dL 0.2-1.1 L BILIT) Aspartate Amino Transferase 34 U/L 0-34 N (test code = AST) Alanine Aminotransferase (test 17 U/L 10-49 N code = ALT) Total Protein (test code = TP) 7.6 g/dL 5.7-8.2 N Albumin Level (test code = ALB) 4.7 g/dL 3.2-4.8 N Globulin (test code = GLOB) 2.9 mg/dL 2.3-3.5 N Albumin/Globulin Ratio (test 1.6 ratio 0.8-2.0 N code = AGRATIO) Alkaline Phosphatase (test code 173 U/L 46-116 H = ALP) [id number] 22:57:00 Test Item Value Reference Range Interpretation Comments Lipase (test code = LIP) 38 U/L 12-53 N CBC WITH MANUAL [id number] 21:07:00 Test Item Value Reference Range Interpretation Comments WBC (test code = WBC) 10.9 10\\S\\3/uL 4.5-11.0 RBC (test code = RBC) 4.50 10\\S\\6/uL 4.20-5.60 HGB (test code = HBG) 11.4 g/dL 12.0-15.5 L HCT (test code = HCT) 37.3 % 35.0-44.0 MCV (test code = MCV) 82.9 fL 81.0-99.0 MCH (test code = MCH) 25.3 pg 27.0-31.0 L MCHC (test code = MCHC) 30.6 g/dL 32.0-36.0 L RDW (test code = RDW) 16.6 % 11.5-14.5 H PLT (test code = PLT) 312 10\\S\\3/uL 130-400 MPV (test code = MPV) 10.6 fL 9.4-12.4 NEUTROP # (test code = 7.2 10\\S\\3/uL 1.6-8.0 NE#) LYMPH # (test code = 2.4 10\\S\\3/uL 1.1-3.5 LY#) MONOCYTE # (test code = 1.0 10\\S\\3/uL 0.0-1.1 MO#) EOSINOPH # (test code = 0.2 10\\S\\3/uL 0.0-0.7 EO#) BASOPHIL # (test code = 0.0 10\\S\\3/uL 0.0-0.3 BA#) IG # (test code = IG#) 0.06 10\\S\\3/uL 0.00-0.06 NRBC # (test code = 0.00 10\\S\\3/uL 0.00-0.01 NRBC#) NEUTROPH % (test code = 66.2 % 35.0-73.0 NE%) LYMPH % (test code = 21.8 % 20.0-55.0 LY%) MONO % (test code = 9.5 % 2.5-10.0 MO%) EOSINOPH % (test code = 1.6 % 0.0-5.0 EO%) BASOPHIL % (test code = 0.3 % 0.0-2.0 BA%) IG % (test code = IG%) 0.6 % 0.0-0.8 NRBC% (test code = 0.0 % 0.0-0.2 NRBC%) MAN DIFF (test code = MANUAL HMDIFF) DIFFERENTIAL SEG (test code = SEG) 70 % 42-75 BAND (test code = BAND) 2 % 0-8 LYMPH (test code = 21 % 20-51 LYMPH) MONO (test code = MONO) 6 % 3-11 EOS (test code = EOS) 1 % 0-10 BASO (test code = BASO) 0 % 0-2 RBC MORPH (test code = NORMAL NORMAL RBCMORN) PLT EST (test code = ADEQUATE ADEQUATE PLTEST) PLT MORPH (test code = NORMAL (1.5-3 um) NORMAL PLTMOR) DRUGS OF [id number] 20:53:00 Test Item Value Reference Range Interpretation Comments DRUG SCRN (test code = URINE DRUG HDOA) SCREEN This is an unconfirmed screening result and should not be used for non-medical purposes CANNABINOD (test code NEGATIVE NEGATIVE = 88C) AMPHETAMINE (test code NEGATIVE NEGATIVE = 84A) BENZODIAZP (test code NEGATIVE NEGATIVE = 86A) BARBITURAT (test code POSITIVE NEGATIVE A = 85A) OPIATES (test code = POSITIVE NEGATIVE A 92B) COCAINE (test code = NEGATIVE NEGATIVE 87A) PHENCYCLID (test code NEGATIVE NEGATIVE = 66A) METHADONE (test code = NEGATIVE NEGATIVE 64A) DOAH (test code = DOAH.) URINE DRUGSCREEN Cut-off values are as follows: Cannabinoids 50 ng/mL Cocaine 300 ng/mL Amphetamines 1000 ng/mL Phencyclidine 25 ng/mL Benzodiazepines 200 ng.mL Methadone 300 ng/mL Barbiturates 200 ng/mL Opiates 300 ng/mL AMYLASE AND [id number] 20:53:00 Test Item Value Reference Range Interpretation Comments AMYLASE (test code = 10A) 68 U/L 30-118 LIPASE (test code = 60A) 35 IU/L 12-53 COMPREHENSIVE METABOLIC [id number] 20:53:00 Test Item Value Reference Range Interpretation Comments GLUCOSE (test code 106 mg/dL 75-100 H = 06D) SODIUM (test code 138 mmol/L 136-145 = 01A) POTASSIUM (test 4.0 mmol/L 3.6-5.1 code = 01B) CHLORIDE (test 106 mmol/L 98-107 code = 04A) CO2 (test code = 26 mmol/L 02A) ANION GAP (test 10.0 mmol/L code = ANG) BUN (test code = 20 mg/dL 02-08 05D) CREATININE (test 1.3 mg/dL 0.6-1.0 H code = 03E) GFR (test code = 49 See_Comment L [Automated GFR) mL/min/1.73m\\S\\2 message] Th e system which generated this result transmit kody reference range : >=90. The reference range was not used to interpret this result as normal/abnormal . GFR 57 See_Comment L [Automated DOMINICAN (test mL/min/1.73m\\S\\2 message] The code = GFRAA) system which generated this result transmit kody reference range : >=90. The reference range was not used to interpret this result as normal/abnormal . EGFR (test code = eGFR BY EGFR) CKD-EPI CALCULATION IS NOT RECOMMENDED FOR PATIENTS UNDER 18 YEARS OF AGE. BUN/CREA (test 15 12-20 code = BCR) CALCIUM (test code 9.3 mg/dL 8.3-10.6 = 09D) BILI TOTAL (test <0.2 mg/dL 0.2-1.0 code = 11A) PROTEIN (test code 7.8 g/dL 5.7-8.2 = 07D) ALBUMIN (test code 4.5 g/dL 3.2-4.8 = 08D) GLOBULIN (test 3.3 g/dL 1.5-3.8 code = GLB) ALB/GLOB (test 1.4 1.0-2.6 code = AGRR) ALK PHOS (test 177 IU/L 46-116 H code = 35A) AST (test code = 14 IU/L See_Comment [Automated 30A) message] The system which generated this result transmit kody reference range : <=33. The reference range was not used to interpret this result as normal/abnormal . ALT (test code = 11 IU/L 10-49 31A) URINALYSIS WITH [id number] 20:43:00 Test Item Value Reference Range Interpretation Comments COLOR (test code = COLU) YELLOW YELLOW CLARITY (test code = CLA) CLEAR CLEAR GLUCOSE UR (test code = UA GLUCOSE) NEGATIVE NEGATIVE BILI UR (test code = BILE) NEGATIVE NEGATIVE KETONES UR (test code = JAIR) NEGATIVE NEGATIVE SP GRAVITY (test code = SPGR) 1.012 1.005-1.030 PH UR (test code = PH) 6.5 4.5-8.0 PROTEIN UR (test code = PU) NEGATIVE NEGATIVE UROBIL UR (test code = UROQ) 0.2 EU/dL 0.2-1.0 NITRITE UR (test code = NITRITE) POSITIVE NEGATIVE A BLOOD UR (test code = UA BLOOD) 1+ NEGATIVE A LEUK ES UR (test code = LEUK) TRACE NEGATIVE A WBC UR (test code = UWBC) 3 /HPF 0-5 RBC UR (test code = URBC) 2 /HPF 0-2 EPITH UR (test code = UEPC) FEW /LPF FEW BACTERIA UR (test code = UBACT) MANY /HPF NONE A CAST UR (test code = CAST) /LPF NONE CRYSTAL UR (test code = CRYU) / LPF NONE MUCUS UR (test code = MUC) / HPF NONE AMORPH UR (test code = MIGUEL) / HPF NONE TRICH UR (test code = UTRICH) /HPF NONE YEAST UR (test code = UY) /HPF NONE SPERM UR (test code = USPERM) /HPF NONE SERUM [id number] 20:37:00 Test Item Value Reference Range Interpretation Comments PREG SRM (test code = PGS) NEGATIVE NEGATIVE - CT ABD PELVIS [id number] 14:34:00 [facility] 1975 Sex: F Name: LIANA ASHBY [facility] : 1975 Age/S: 46 / F [id number] [place] Unit #: [id number] Loc: [place] [address] Phys: AlandaleBrandon DO Acct: [id number] Dis Date: Status: REG ER PHONE #: [phone] Exam Date: 09/03/2021 1432 FAX #: Reason: abd pain EXAMS: CPT: [id number] CT ABD PELVIS W/CONT 63076 EXAM: CT ABDOMEN AND PELVIS WITH CONTRAST. INDICATION: Abdominal pain COMPARISON: August 15, 2021 TECHNIQUE: Axial CT imaging of the abdomen and pelvis was obtained after the administration of intravenous contrast. Coronal and sagittal reformatted images were submitted for review. IV contrast: 100 mL of Isovue-300 DLP: 813.82 mGy-cm FINDINGS: The heart size is normal. The lung bases are clear. No pericardial or pleural effusion is identified. The liver, spleen, pancreas, and adrenal glands is unremarkable. No focal liver lesions are identified. There has been prior cholecystectomy. No intrahepatic biliary duct dilatation. The main portal vein is patent and normal in size. The kidneys are normal in size. No hydronephrosis or nephrolithiasis is identified. The urinary bladder is normal. There is bowel anastomosis noted within the right abdomen with no evidence of obstruction. There arepostsurgical changes involving the stomach. Normal appearance of the appendix. No bowel obstruction is identified. No lymphadenopathy is identified in the abdomen or pelvis. No free fluid or free air. The IVC is normal. The abdominal aorta is normal in course and caliber. There are atherosclerotic calcifications of the abdominal aorta. The uterus is normal in size. No adnexal mass is identified. No acute osseous abnormality is identified. IMPRESSION: No acute abnormality in the abdomen or pelvis. Nobowel obstruction. Normal appendix. No nephrolithiasis or hydronephrosis. LOCATION: B2 This CT examwas performed according to our departmental dose PAGE 1 Signed Report (CONTINUED) Name: LIANA ASHBY [facility] : 1975 Age/S: 46 / F [id number] [employer] [place] Unit #: [id number] Loc: [place] [address] Phys: Brandon Hays DO Acct: [id number] Dis Date: Status: REG ER PHONE #: [phone] Exam Date: 09/03/2021 1432 FAX #: Reason: abd pain EXAMS: CPT: [id number] CT ABD PELVIS W/CONT 05806 <Continued> optimization program, which includes automated exposure control, adjustment of the mA and or kV according to patient size and/or use of iterative reconstruction technique. at 1434 Reported and signed by: Jennifer Torre M.D. CC: Brandon Hays DO Technologist:RT Juan(R) CTDI: DLP: Trnscb Date/Time: 09/03/2021 (1434) [email or web address] Orig Print D/T: S: 09/03/2021 (0743) PAGE 2 Signed ReportBASIC METABOLIC [id number] 13:53:00 Test Item Value Reference Range Interpretation Comments SODIUM (test code = NA) 138 mmol/L 134-147 N POTASSIUM (test code = 4.7 mmol/L 3.4-5.0 N K) CHLORIDE (test code = 106 mmol/L 100-108 N CL) CARBON DIOXIDE (test 26 mmol/L 21-32 N code = CO2) ANION GAP (test code = 6.0 GAP calc 4.0-15.0 N GAP) GLUCOSE (test code = 84 MG/DL 70-110 N GLU) BLOOD UREA NITROGEN 11 MG/DL 7-18 N (test code = BUN) GLOMERULAR FILTRATION >=60 max estimate >60 RATE (test code = GFR) estGFR CREATININE (test code = 1.0 MG/DL 0.6-1.0 N CREAT) CALCIUM (test code = CA) 9.5 MG/DL 8.5-10.1 N HEPATIC FUNCTION [id number] 13:53:00 Test Item Value Reference Range Interpretation Comments TOTAL PROTEIN (test code = PROT) 7.8 G/DL 6.4-8.2 N ALBUMIN (test code = ALB) 3.1 G/DL 3.4-5.0 L BILIRUBIN TOTAL (test code = 0.30 MG/DL 0.2-1.2 N BILT) BILIRUBIN DIRECT (test code = < 0.10 MG/DL 0.00-0.30 N BILD) BILIRUBIN INDIRECT (test code = 0.20 MG/DL 0.2-1.2 N BILIND) SGOT/AST (test code = AST) 20 Unit/L 15-37 N SGPT/ALT (test code = ALT) 17 Unit/L 12-78 N ALKALINE PHOSPHATASE TOTAL (test 165 Unit/L 45-117 H code = ALKP) [id number] 13:53:00 Test Item Value Reference Range Interpretation Comments LIPASE (test code = LIP) 56 Unit/L 114-286 L HCG [id number] 13:53:00 Test Item Value Reference Range Interpretation Comments HCG SERUM (test < 1 mi-IU/ML 0-6 N 0 - 6 NOT P REGNANT > 6 code = HCG) SUGGESTIVE OF E JENNIFER RISES TWO FOLD EVERY 2 DAYS; S UGGEST RECONFIRMING AF TER 2 DAYS. 150,000-2 00[address] TRIMESTER 10 ,000 - 50,000 2ND & 3R D TRIMESTER CBC W/AUTO [id number] 13:27:00 Test Item Value Reference Range Interpretation Comments WHITE BLOOD CELL (test code = 7.3 K/mm3 3.5-11.0 N WBC) RED BLOOD CELL (test code = 4.36 M/mm3 4.70-6.10 L RBC) HEMOGLOBIN (test code = HGB) 10.9 G/DL 10.4-14.9 N HEMATOCRIT (test code = HCT) 35.4 % 31.5-44.1 N MEAN CELL VOLUME (test code = 81.2 Fl 84.5-98.6 L MCV) MEAN CELL HGB (test code = MCH) 25.0 pg 27.0-34.2 L MEAN CELL HGB CONCETRATION 30.8 G/DL 31.5-34.0 L (test code = MCHC) RED CELL DISTRIBUTION WIDTH 16.6 SD 11.5-14.5 H (test code = RDW) PLATELET COUNT (test code = 294 K/mm3 150-450 N PLT) MEAN PLATELET VOLUME (test code 10.50 fL 7.0-10.5 N = MPV) NEUTROPHIL % (test code = NT%) 62.9 % 40-76 N IMMATURE GRANULOCYTE % (test 0.1 % 0.0-5.0 N code = IG%) LYMPHOCYTE % (test code = LY%) 26.4 % 20.5-51.1 N MONOCYTE % (test code = MO%) 7.7 % 1.7-9.3 N EOSINOPHIL % (test code = EO%) 2.8 % 0.0-6.0 N BASOPHIL % (test code = BA%) 0.1 % 0.0-2.0 N NUCLEATED RBC % (test code = 0.0 /100WBC% 0.0-1.0 N NRBC%) NEUTROPHIL # (test code = NT#) 4.6 K/mm3 1.8-7.6 N IMMATURE GRANULOCYTE # (test 0.01 x10 3/uL 0.00-0.03 N code = IG#) LYMPHOCYTE # (test code = LY#) 1.9 K/mm3 0.6-3.2 N MONOCYTE # (test code = MO#) 0.6 K/mm3 0.3-1.1 N EOSINOPHIL # (test code = EO#) 0.2 K/mm3 0.0-0.4 N BASOPHIL # (test code = BA#) 0.0 K/mm3 0.0-0.1 N NUCLEATED RBC # (test code = 0.0 K/mm3 0.0-0.1 N NRBC#) MANUAL DIFF REQUIRED (test code NO DIFF/SCN CRITERIA = MDIFF) SARS-CoV-2 (COVID-19) RNA [Presence] in Respiratory specimen by LYNETTE with probe [id number] 12:40:15 Test Item Value Reference Range Interpretation Comments SARS-CoV-2 (COVID-19) Not detected Not-Detected RNA [Presence] in Respiratory specimen by LYNETTE with probe detectio (test code = 65978-2) Whether patient is Unknown Corrected result; employed in a previously rep orted healthcare setting as Unknow n on (test code = 40664-2) 06-11 at 01:48:40 Whether the patient Unknown Correcte d result; has symptoms related previou sly reported to condition of as Unknown o n interest (test code = 06-11 at 32122-9) 01:48:40 Whether the patient Unknown Correcte d result; was hospitalized for previou sly reported condition of interest as Unk nown on (test code = 42587-8) 06-11 at 01:48:40 Whether the patient Unknown Correcte d result; was admitted to previously r eported intensive care unit as Unkno wn on (ICU) for condition of 06-11 at interest (test code = 01:48: 40 72114-5) Whether patient Unknown Corrected re sult; resides in a previously repo rted congregate care as Unknown o n setting (test code = 2021-05 at 35892-0) 01:48:40 status (test Unknown Corre cted result; code = 88034-2) previously r eported as Unknown on 2021-06-11 at 01:48:40 - CT ABD PELVIS W/[id number] 20:48:00 [facility] 1975 Sex: F Name: LIANA ASHBY [facility] : 1975 Age/S: 46 / F [address] [address] [place] Unit #: [id number] Loc: [place] [address] Phys: Sindy Edmondson DO Acct: [id number] Dis Date: Status: REG ER PHONE #: [phone] Exam Date: 08/15/20212004 FAX #: Reason: pain, vomiting EXAMS: CPT: [id number] CT ABD PELVIS W/CONT 30685 CT ABDOMEN AND PELVIS ( with intravenous contrast ) Location Code: B2 CLINICAL INDICATIONS: Abdominal pain. TECHNIQUE: Volumetric acquisition of abdomen from the level of the domes of the diaphragm through the symphysis pubis using 5 mm collimation after the administration ofintravenous and oral contrast. Axial and coronal images were interpreted. Dose lowering technique with automatic exposure control utilized. COMPARISON: 08/03/2021 and 3 [address]s dating back to 05/10/2021. FINDINGS: Visualized lung bases demonstrate no consolidations or effusions. Minimal lingularatelectasis. Liver, spleen, pancreas, adrenals and both kidneys are unremarkable. Surgical clips gallbladder fossa. There is no evidence of intrahepatic biliary duct dilatation. No hydronephrosis seen.Small hyperdense lesion in the right upper pole is likely a hemorrhagic cyst. No nephrolithiasis or hydronephrosis. Prior gastric bypass surgery. Visualized loops of small bowel are within normal limits. Normal appendix. Large bowel loops are within normal limits. Aorta tapers normally without aneurysmal dilatation. Incidental note of a duplicated IVC. No lymphadenopathy CT Pelvis: The urinary bladder is unremarkable. Uterus mildly atrophic. Visualized osseous structures demonstrate no significant abnormality IMPRESSION: 1. No evidence of obstruction. Prior gastric bypass surgery. 2. Stable findings. PAGE 1 Signed Report (CONTINUED) Name: LIANA ASHBY : 1975 Age/S: 46 / F [address] [address] Unit #: [id number] Loc: [place] [address] Phys: Sindy Edmondson DO Acct: [id number] Dis Date: Status: REG ER PHONE #: [phone] Exam Date: 08/15/20212004 FAX #: Reason: pain, vomiting EXAMS: CPT: [id number] CT ABD PELVIS W/CONT 74917 <Continued> ElectronicallySigned by Jeovanny Hunter on 08/15/2021 at 2047 Reported and signed by: Cleveland Hunter M.D. CC: hCavo Edmondson DO; Lashonda ASHBY Technologist:Ela Shafer RT(R)(CT) CTDI: DLP: Trnscb Date/Time: 08/15/2021 (2047) [email or web address] Orig Print D/T: S: 08/15/2021 (2099) PAGE 2 Signed ReportCBC W/AUTO [id number] 19:47:00 Test Item Value Reference Range Interpretation Comments WHITE BLOOD CELL (test code = 9.1 K/mm3 3.5-11.0 N WBC) RED BLOOD CELL (test code = 3.79 M/mm3 4.70-6.10 L RBC) HEMOGLOBIN (test code = HGB) 9.6 G/DL 10.4-14.9 L HEMATOCRIT (test code = HCT) 30.7 % 31.5-44.1 L MEAN CELL VOLUME (test code = 81.0 Fl 84.5-98.6 L MCV) MEAN CELL HGB (test code = MCH) 25.3 pg 27.0-34.2 L MEAN CELL HGB CONCETRATION 31.3 G/DL 31.5-34.0 L (test code = MCHC) RED CELL DISTRIBUTION WIDTH 16.5 SD 11.5-14.5 H (test code = RDW) PLATELET COUNT (test code = 285 K/mm3 150-450 N PLT) MEAN PLATELET VOLUME (test code 10.30 fL 7.0-10.5 N = MPV) NEUTROPHIL % (test code = NT%) 62.6 % 40-76 N IMMATURE GRANULOCYTE % (test 0.2 % 0.0-5.0 N code = IG%) LYMPHOCYTE % (test code = LY%) 23.9 % 20.5-51.1 N MONOCYTE % (test code = MO%) 9.9 % 1.7-9.3 H EOSINOPHIL % (test code = EO%) 3.0 % 0.0-6.0 N BASOPHIL % (test code = BA%) 0.4 % 0.0-2.0 N NUCLEATED RBC % (test code = 0.0 /100WBC% 0.0-1.0 N NRBC%) NEUTROPHIL # (test code = NT#) 5.7 K/mm3 1.8-7.6 N IMMATURE GRANULOCYTE # (test 0.02 x10 3/uL 0.00-0.03 N code = IG#) LYMPHOCYTE # (test code = LY#) 2.2 K/mm3 0.6-3.2 N MONOCYTE # (test code = MO#) 0.9 K/mm3 0.3-1.1 N EOSINOPHIL # (test code = EO#) 0.3 K/mm3 0.0-0.4 N BASOPHIL # (test code = BA#) 0.0 K/mm3 0.0-0.1 N NUCLEATED RBC # (test code = 0.0 K/mm3 0.0-0.1 N NRBC#) MANUAL DIFF REQUIRED (test code NO DIFF/SCN CRITERIA = MDIFF) UA RFLX MICR CULT IF [id number] 19:34:00 Test Item Value Reference Range Interpretation Comments UA COLOR (test code = YELLOW discript YEL/STRAW COLU) UA APPEARANCE (test code HAZY discript CLEAR A = APPU) UA GLUCOSE DIPSTICK (test NEGATIVE mg/dL NEG code = DGLUU) UA BILIRUBIN DIPSTICK NEGATIVE mg/dL NEG (test code = BILU) UA KETONE DIPSTICK (test NEGATIVE mg/dL NEG code = KETU) UA SPECIFIC GRAVITY (test 1.020 SG 1.005-1.030 code = SGU) UA BLOOD DIPSTICK (test 2+ mg/DL NEG A code = WINSTON) UA PH DIPSTICK (test code 6.0 pH UNITS 5.0-7.0 = FOSTER) UA PROTEIN DIPSTICK (test NEGATIVE mg/dL NEG code = PROU) UA UROBILINIOGEN DIPSTICK 0.2 mg/dL <2.0 (test code = URO) UA NITRITE DIPSTICK (test POSITIVE SCREEN NEG A code = SU) UA LEUKOCYTE ESTERASE TRACE Leuk/mcL NEGATIVE A DIPSTICK (test code = LEUU) UA CULTURE NEEDED? (test NO, WBC<10 Criteria Culture CHK code = UACULT) UA WBC (test code = WBCU) 0-1 #WBC/HPF 0-3 UA RBC (test code = RBCU) NONE SEEN #RBC/HPF 0-3 UA BACTERIA (test code = TRACE /HPF NONE-TRACE BACU) UA SQUAMOUS CELLS (test TRACE /HPF NONE code = SQU) Indication for culture: Dysuria/FrequencyCOMPREHENSIVE METABOLIC [id number] 18:48:00 Test Item Value Reference Range Interpretation Comments SODIUM (test code = NA) 141 mmol/L 134-147 N POTASSIUM (test code = 4.1 mmol/L 3.4-5.0 N K) CHLORIDE (test code = 110 mmol/L 100-108 H CL) CARBON DIOXIDE (test 26 mmol/L 21-32 N code = CO2) ANION GAP (test code = 5.0 GAP calc 4.0-15.0 N GAP) GLUCOSE (test code = 100 MG/DL 70-110 N GLU) BLOOD UREA NITROGEN 12 MG/DL 7-18 N (test code = BUN) GLOMERULAR FILTRATION >=60 max estimate >60 RATE (test code = GFR) estGFR CREATININE (test code = 1.0 MG/DL 0.6-1.0 N CREAT) TOTAL PROTEIN (test code 7.2 G/DL 6.4-8.2 N = PROT) ALBUMIN (test code = 3.0 G/DL 3.4-5.0 L ALB) GLOBULIN (test code = 4.2 GM/dL GLOB) ALBUMIN/GLOBULIN RATIO 0.7 RATIO 1.2-2.2 L (test code = A/G) CALCIUM (test code = CA) 9.1 MG/DL 8.5-10.1 N BILIRUBIN TOTAL (test 0.10 MG/DL 0.2-1.2 L code = BILT) SGOT/AST (test code = 10 Unit/L 15-37 L AST) SGPT/ALT (test code = 17 Unit/L 12-78 N ALT) ALKALINE PHOSPHATASE 135 Unit/L 45-117 H TOTAL (test code = ALKP) - CT ABD PELVIS [id number] 00:51:00 [facility] 1975 Sex: F Name: LIANA ASHBY [facility] : 1975 Age/S: 46 / F [id number] [address] Unit #: [id number] Loc: [place] [address] Phys: Brandon Hays DO Acct: [id number] Dis Date: Status: REG ER PHONE #: [phone] Exam Date: 08/03/2021 0030 FAX #: Reason: pain EXAMS: CPT: [id number] CT ABD PELVIS W/CONT 85248 EXAM: - CT ABD PELVIS W/CONT HISTORY: Abdominal pain. TECHNIQUE: Axial tomograms through the a bdomen and pelvis were obtained after intravenous contrast. Coronal and sagittal reformatted images are provided. This exam was performed according to our departmental dose-optimization program, which includes automated exposure control, adjustment of the mA and/or kV according to patient size and/or use of iterative reconstruction technique. COMPARISON: July 23, 2021. FINDINGS: The visualized lung bases are clear. There is large body habitus. Status post gastric bypass surgery and cholecystectomy. There is no free air or fluid collection. The liver, spleen, pancreas, adrenal glands and kidneys demonstrate no significant abnormalities. The appendix has a normal appearance. The bowel is unremarkable. There is no adenopathy or free fluid. There is no significant change compared to prior exam. Degenerative disc disease at L5-S1 level.. The abdominal aorta is normal in size. IMPRESSION: No significant abnormalities demonstrated. No significant change compared to prior exam. Prior gastric bypass surgery. PAGE 1 Signed Report (CONTINUED) Name: LIANA ASHBY : 1975 Age/S:46 / F [address] [address] Unit #: [id number] Loc: [place] [address] Phys: Brandon Hays DO Acct: [id number] Dis Date: Status: REG ER PHONE #: [phone] Exam Date: 08/03/2021 0030 FAX #: Reason: pain EXAMS: CPT: [id number] CT ABD PELVIS W/CONT 14768 <Continued> at 0051 Reported and signed by: Cheko Castellon M.D. CC: Paul Patel HOOP PUNCHER; Brandon Hays DO Technologist:Morales Sheldon RT(R)(CT) CTDI: DLP: Trnscb Date/Time: (50) [email or web address] Orig Print D/T: S: 08/03/2021 (005) PAGE 2 Signed ReportBASIC METABOLIC [id number] 23:55:00 Test Item Value Reference Range Interpretation Comments SODIUM (test code = NA) 142 mmol/L 134-147 N POTASSIUM (test code = 3.8 mmol/L 3.4-5.0 N K) CHLORIDE (test code = 108 mmol/L 100-108 N CL) CARBON DIOXIDE (test 29 mmol/L 21-32 N code = CO2) ANION GAP (test code = 5.0 GAP calc 4.0-15.0 N GAP) GLUCOSE (test code = 99 MG/DL 70-110 N GLU) BLOOD UREA NITROGEN 12 MG/DL 7-18 N (test code = BUN) GLOMERULAR FILTRATION >=60 max estimate >60 RATE (test code = GFR) estGFR CREATININE (test code = 1.0 MG/DL 0.6-1.0 N CREAT) CALCIUM (test code = CA) 9.3 MG/DL 8.5-10.1 N HEPATIC FUNCTION [id number] 23:55:00 Test Item Value Reference Range Interpretation Comments TOTAL PROTEIN (test code = PROT) 7.2 G/DL 6.4-8.2 N ALBUMIN (test code = ALB) 3.0 G/DL 3.4-5.0 L BILIRUBIN TOTAL (test code = <0.10 MG/DL 0.2-1.2 L BILT) BILIRUBIN DIRECT (test code = < 0.10 MG/DL 0.00-0.30 N BILD) BILIRUBIN INDIRECT (test code = 0.00 MG/DL 0.2-1.2 L BILIND) SGOT/AST (test code = AST) 17 Unit/L 15-37 N SGPT/ALT (test code = ALT) 19 Unit/L 12-78 N ALKALINE PHOSPHATASE TOTAL (test 158 Unit/L 45-117 H code = ALKP) [id number] 23:55:00 Test Item Value Reference Range Interpretation Comments LIPASE (test code = LIP) 37 Unit/L 114-286 L HCG [id number] 23:55:00 Test Item Value Reference Range Interpretation Comments HCG SERUM (test < 1 mi-IU/ML 0-6 N 0 - 6 NOT P REGNANT > 6 code = HCG) SUGGESTIVE OF E JENNIFER RISE S TWO FOLD EVERY 2 DA YS; SUGGEST RECONFI RMING AFTER 2 DAYS. 150,000-200,[address] TRIMESTER 10,00 0 - 50,000 2ND & 3R D TRIMESTER UA RFLX MICR CULT IF [id number] 23:50:00 Test Item Value Reference Range Interpretation Comments UA COLOR (test code = LIGHT YELLOW YEL/STRAW COLU) discript UA APPEARANCE (test code SLIGHTLY CLOUDY CLEAR = APPU) discript UA GLUCOSE DIPSTICK (test NEGATIVE mg/dL NEG code = DGLUU) UA BILIRUBIN DIPSTICK NEGATIVE mg/dL NEG (test code = BILU) UA KETONE DIPSTICK (test NEGATIVE mg/dL NEG code = KETU) UA SPECIFIC GRAVITY (test <=1.005 SG 1.005-1.030 code = SGU) UA BLOOD DIPSTICK (test 2+ mg/DL NEG A code = WINSTON) UA PH DIPSTICK (test code 7.0 pH UNITS 5.0-7.0 = FOSTER) UA PROTEIN DIPSTICK (test NEGATIVE mg/dL NEG code = PROU) UA UROBILINIOGEN DIPSTICK 0.2 mg/dL <2.0 (test code = URO) UA NITRITE DIPSTICK (test NEGATIVE SCREEN NEG code = SU) UA LEUKOCYTE ESTERASE 1+ Leuk/mcL NEGATIVE A DIPSTICK (test code = LEUU) UA CULTURE NEEDED? (test YES,WBC>10 & EPI<25 Culture CHK code = UACULT) Criteria UA WBC (test code = WBCU) 5-10 #WBC/HPF 0-3 A UA RBC (test code = RBCU) 0-1 #RBC/HPF 0-3 UA BACTERIA (test code = 3+ /HPF NONE-TRACE A BACU) UA SQUAMOUS CELLS (test 2+ /HPF NONE A code = SQU) Indication for culture: Flank PainCBC W/AUTO [id number] 23:39:00 Test Item Value Reference Range Interpretation Comments WHITE BLOOD CELL (test code = 7.4 K/mm3 3.5-11.0 N WBC) RED BLOOD CELL (test code = 3.98 M/mm3 4.70-6.10 L RBC) HEMOGLOBIN (test code = HGB) 10.2 G/DL 10.4-14.9 L HEMATOCRIT (test code = HCT) 33.5 % 31.5-44.1 N MEAN CELL VOLUME (test code = 84.2 Fl 84.5-98.6 L MCV) MEAN CELL HGB (test code = MCH) 25.6 pg 27.0-34.2 L MEAN CELL HGB CONCETRATION 30.4 G/DL 31.5-34.0 L (test code = MCHC) RED CELL DISTRIBUTION WIDTH 16.6 SD 11.5-14.5 H (test code = RDW) PLATELET COUNT (test code = 248 K/mm3 150-450 N PLT) MEAN PLATELET VOLUME (test code 10.50 fL 7.0-10.5 N = MPV) NEUTROPHIL % (test code = NT%) 60.5 % 40-76 N IMMATURE GRANULOCYTE % (test 0.1 % 0.0-5.0 N code = IG%) LYMPHOCYTE % (test code = LY%) 27.6 % 20.5-51.1 N MONOCYTE % (test code = MO%) 8.1 % 1.7-9.3 N EOSINOPHIL % (test code = EO%) 3.3 % 0.0-6.0 N BASOPHIL % (test code = BA%) 0.4 % 0.0-2.0 N NUCLEATED RBC % (test code = 0.0 /100WBC% 0.0-1.0 N NRBC%) NEUTROPHIL # (test code = NT#) 4.5 K/mm3 1.8-7.6 N IMMATURE GRANULOCYTE # (test 0.01 x10 3/uL 0.00-0.03 N code = IG#) LYMPHOCYTE # (test code = LY#) 2.0 K/mm3 0.6-3.2 N MONOCYTE # (test code = MO#) 0.6 K/mm3 0.3-1.1 N EOSINOPHIL # (test code = EO#) 0.2 K/mm3 0.0-0.4 N BASOPHIL # (test code = BA#) 0.0 K/mm3 0.0-0.1 N NUCLEATED RBC # (test code = 0.0 K/mm3 0.0-0.1 N NRBC#) MANUAL DIFF REQUIRED (test code NO DIFF/SCN CRITERIA = MDIFF) - CT ABD PELVIS [id number] 03:03:00 [facility] 1975 Sex: F Name: LIANA ASHBY [facility] : 1975 Age/S: 46 / F [address] [address] [place] Unit #: [id number] Loc: [place] [address] Phys: Chun Rivas MD Acct: [id number] Dis Date: Status: REG ER PHONE #: [phone] Exam Date: 07/23/2021 0255 FAX #: Reason: upper abdominal pain, NV EXAMS: CPT: [id number] CT ABD PELVIS W/CONT 82357 Exam: CT abdomen and pelvis with contrast. Location: H 12 History: upper abdominal pain, NV Technique: Enhanced spiral slices were taken from the domes of the diaphragm, through the pubic symphysis. Coronal reformations were performed. One or more of the following dose reduction techniques were used: Automated exposure control, adjustment of the mA and/or kV according to patient size, and/or utilization of iterative reconstruction technique. Findings: The liver is of normal, homogeneous density. No mass is seen. The intra-and extrahepatic biliary tree is normal. The hepatic and portal veins are patent. The gallbladder has been removed. The pancreas is normal. The pancreatic duct is normal in caliber. The spleen and adrenal glands are normal in size and shape. The kidneys are unremarkable. No perinephric fluid collections or hydronephrosis is seen. The large and small intestine are normal in caliber. The appendix is normal. Previous bariatric surgery is noted. No lymphadenopathy is found in the abdomen or the pelvis. No free fluid is seen. The pelvic structures are unremarkable. The lung bases are clear. No incidental findings are noted. Impression: 1. No acute abdominal findings. 2. Status post cholecystectomy. 3. Status post previous bariatric surgery. PAGE 1 Signed Report (CONTINUED) Name: LIANA ASHBY [facility] : 1975 Age/S: 46 / F [address] [address] Unit #: [id number] Loc: [place] [address] Phys: Chun Rivas MD Acct: [id number] DisDate: Status: REG ER PHONE #: [phone] Exam Date: 07/23/2021 0255 FAX #: Reason: upper abdominal pain, NV EXAMS: CPT: [id number] CT ABD PELVIS W/CONT 77153 <Continued> at 0303 Reported and signed by: Mario Mcgrath M.D. CC: Technologist:Lesley Candelario, RT(R)(CT) CTDI: DLP: Trnscb Date/Time: 07/23/2021 (0303) [email or web address] Orig Print D/T: S: 07/23/2021 (9786) PAGE 2 Signed ReportUR HCG [id number] 02:26:00 Test Item Value Reference Range Interpretation Comments UR HCG QUAL (test code = HCGQLU) NEGATIVE NEGATIVE CBC W/AUTO [id number] 00:24:00 Test Item Value Reference Range Interpretation Comments WHITE BLOOD CELL (test code = 10.2 K/mm3 3.5-11.0 N WBC) RED BLOOD CELL (test code = 3.71 M/mm3 4.70-6.10 L RBC) HEMOGLOBIN (test code = HGB) 9.5 G/DL 10.4-14.9 L HEMATOCRIT (test code = HCT) 30.7 % 31.5-44.1 L MEAN CELL VOLUME (test code = 82.7 Fl 84.5-98.6 L MCV) MEAN CELL HGB (test code = MCH) 25.6 pg 27.0-34.2 L MEAN CELL HGB CONCETRATION 30.9 G/DL 31.5-34.0 L (test code = MCHC) RED CELL DISTRIBUTION WIDTH 16.2 SD 11.5-14.5 H (test code = RDW) PLATELET COUNT (test code = 252 K/mm3 150-450 N PLT) MEAN PLATELET VOLUME (test code 11.00 fL 7.0-10.5 H = MPV) NEUTROPHIL % (test code = NT%) 65.6 % 40-76 N IMMATURE GRANULOCYTE % (test 0.4 % 0.0-5.0 N code = IG%) LYMPHOCYTE % (test code = LY%) 21.7 % 20.5-51.1 N MONOCYTE % (test code = MO%) 8.1 % 1.7-9.3 N EOSINOPHIL % (test code = EO%) 3.9 % 0.0-6.0 N BASOPHIL % (test code = BA%) 0.3 % 0.0-2.0 N NUCLEATED RBC % (test code = 0.0 /100WBC% 0.0-1.0 N NRBC%) NEUTROPHIL # (test code = NT#) 6.7 K/mm3 1.8-7.6 N IMMATURE GRANULOCYTE # (test 0.04 x10 3/uL 0.00-0.03 H code = IG#) LYMPHOCYTE # (test code = LY#) 2.2 K/mm3 0.6-3.2 N MONOCYTE # (test code = MO#) 0.8 K/mm3 0.3-1.1 N EOSINOPHIL # (test code = EO#) 0.4 K/mm3 0.0-0.4 N BASOPHIL # (test code = BA#) 0.0 K/mm3 0.0-0.1 N NUCLEATED RBC # (test code = 0.0 K/mm3 0.0-0.1 N NRBC#) MANUAL DIFF REQUIRED (test code NO DIFF/SCN CRITERIA = MDIFF) BASIC METABOLIC [id number] 00:15:00 Test Item Value Reference Range Interpretation Comments SODIUM (test code = NA) 138 mmol/L 134-147 N POTASSIUM (test code = K) 4.1 mmol/L 3.4-5.0 N CHLORIDE (test code = CL) 110 mmol/L 100-108 H CARBON DIOXIDE (test code = CO2) 23 mmol/L 21-32 N ANION GAP (test code = GAP) 5.0 GAP calc 4.0-15.0 N GLUCOSE (test code = GLU) 116 MG/DL 70-110 H BLOOD UREA NITROGEN (test code = 17 MG/DL 7-18 N BUN) GLOMERULAR FILTRATION RATE (test 57 estGFR >60 L code = GFR) CREATININE (test code = CREAT) 1.1 MG/DL 0.6-1.0 H CALCIUM (test code = CA) 8.4 MG/DL 8.5-10.1 L Completed by Nursing: NOHEPATIC FUNCTION [id number] 00:15:00 Test Item Value Reference Range Interpretation Comments TOTAL PROTEIN (test code = PROT) 6.4 G/DL 6.4-8.2 N ALBUMIN (test code = ALB) 2.6 G/DL 3.4-5.0 L BILIRUBIN TOTAL (test code = 0.10 MG/DL 0.2-1.2 L BILT) BILIRUBIN DIRECT (test code = < 0.10 MG/DL 0.00-0.30 N BILD) BILIRUBIN INDIRECT (test code = 0.00 MG/DL 0.2-1.2 L BILIND) SGOT/AST (test code = AST) 11 Unit/L 15-37 L SGPT/ALT (test code = ALT) 19 Unit/L 12-78 N ALKALINE PHOSPHATASE TOTAL (test 132 Unit/L 45-117 H code = ALKP) Completed by Nursing: [id number] 00:15:00 Test Item Value Reference Range Interpretation Comments LIPASE (test code = LIP) 82 Unit/L 114-286 L Completed by Nursing: NOTROP-I HIGH [id number] 00:15:00 Test Item Value Reference Range Interpretation Comments TROP-I HIGH 6.3 ng/L 0-34 N CAUTION: Units of the SENSITIVITY (test current te st methodology code = TROPIHS) (ng/L) diffe rfrom the prior test meth odology (ng/mL) by a fa ctor of 1000. 99t h Percentile Uppe r Reference Limit (URL):Fem ales: 34 ng/LMales: 54 n g/L In order to distin guish acute elevations of h igh sensitivitytrop onin from other clinical conditions, the FourthUnive rsal Definition of M yocardial Infarction stressesclinica l assessment and the demonstration o f a rise and/orfall in s erial troponin result s above the URL. Results fr om different metho dologies should not be c omparedto one another as quantitative re sults and URLs may varyby method. Completed by Nursing: NICKYUA RFLX MICR CULT IF [id number] 22:40:00 Test Item Value Reference Range Interpretation Comments UA COLOR (test code = YELLOW discript YEL/STRAW COLU) UA APPEARANCE (test code CLEAR discript CLEAR = APPU) UA GLUCOSE DIPSTICK (test NEGATIVE mg/dL NEG code = DGLUU) UA BILIRUBIN DIPSTICK NEGATIVE mg/dL NEG (test code = BILU) UA KETONE DIPSTICK (test NEGATIVE mg/dL NEG code = KETU) UA SPECIFIC GRAVITY (test 1.020 SG 1.005-1.030 code = SGU) UA BLOOD DIPSTICK (test 2+ mg/DL NEG A code = WINSTON) UA PH DIPSTICK (test code 7.0 pH UNITS 5.0-7.0 = FOSTER) UA PROTEIN DIPSTICK (test NEGATIVE mg/dL NEG code = PROU) UA UROBILINIOGEN DIPSTICK 0.2 mg/dL <2.0 (test code = URO) UA NITRITE DIPSTICK (test NEGATIVE SCREEN NEG code = SU) UA LEUKOCYTE ESTERASE NEGATIVE Leuk/mcL NEGATIVE DIPSTICK (test code = LEUU) UA CULTURE NEEDED? (test NO, WBC<10 Criteria Culture CHK code = UACULT) UA WBC (test code = WBCU) 1-3 #WBC/HPF 0-3 UA RBC (test code = RBCU) 1-3 #RBC/HPF 0-3 UA BACTERIA (test code = TRACE /HPF NONE-TRACE BACU) UA SQUAMOUS CELLS (test TRACE /HPF NONE code = SQU) Indication for culture: RiskForSepsis-no oth srcDIRECT STREP GROUP [id number] 10:59:00 Test Item Value Reference Range Interpretation Comments Direct Exam (test code NEGATIVE FOR STREP A = DE1) ANTIGEN CT ABDOMEN AND PELVIS WITH [id number] 21:56:28 [facility] 1975 Sex: FLocation code: H5CT Abdomen and Pelvis with ContrastIndication: Abdominal pain.Comparison: None.Technical factors: Axial images were obtained with contrast. Sagittal and coronal reconstruction. This exam was performed according to our departmental dose-optimization program, which includes automated exposure control, adjustment of the mA and/or kV according to patient size and/or use of iterative reconstruction technique. Total exam DLP 1592 mGy. Contrast dosage: 100 mL Isovue-370.Findings:Lung bases are clear with no pleural effusion.Gastric surgery.The liver is normal in appearance. The biliary ducts are not dilated. No focal lesion is seen.Cholecystectomy.The spleen is unremarkable.The adrenal glands are unremarkable.The pancreas is unremarkable.Kidneys are normal in appearance. No hydronephrosis or hydroureter. IVC is unremarkable. Abdominal aorta is unremarkable for age.Anastomosis intact. Appendix is unremarka ble.Urinary bladder is unremarkable.Uterus and adnexa are unremarkable..No adenopathy, free fluid, or free air. No abnormal mass, edema, or focal fluid collection.Abdominal-pelvic wall is intact. Skeletal structures are normal for patient age.No abnormal enhancing lesion is seen.Impression:1. No specific evidence of acute pathology.Electronically signed by: Grant Bernardo MD 07/20/2021 9:56 PM [facility] (RAPID ANTIGEN)2021-07-20 20:58:00 Test Item Value Reference Range Interpretation Comments SARS-CoV (ANTIGEN) NEGATIVE NEGATIVE (test code = COVAG) COVID AG (test This test has been code = COVAGC) marketed under the FDA Emergency Use Authorization (EUA) to meet challenges of the COVID-19 pandemic. The validation standards normally enforced by the FDA and the [employer] ([employer]) are more stringent than those required for this test. Therefore, the result should be interpreted with caution and close attention to other clinical and epidemiological data URINALYSIS WITH [id number] 20:58:00 Test Item Value Reference Range Interpretation Comments COLOR (test code = COLU) YELLOW YELLOW CLARITY (test code = CLA) CLEAR CLEAR GLUCOSE UR (test code = UA GLUCOSE) NEGATIVE NEGATIVE BILI UR (test code = BILE) NEGATIVE NEGATIVE KETONES UR (test code = JAIR) TRACE NEGATIVE A SP GRAVITY (test code = SPGR) 1.019 1.005-1.030 PH UR (test code = PH) 6.0 4.5-8.0 PROTEIN UR (test code = PU) NEGATIVE NEGATIVE UROBIL UR (test code = UROQ) 1.0 EU/dL 0.2-1.0 NITRITE UR (test code = NITRITE) NEGATIVE NEGATIVE BLOOD UR (test code = UA BLOOD) 2+ NEGATIVE A LEUK ES UR (test code = LEUK) TRACE NEGATIVE A WBC UR (test code = UWBC) 3 /HPF 0-5 RBC UR (test code = URBC) 8 /HPF 0-2 H EPITH UR (test code = UEPC) FEW /LPF FEW BACTERIA UR (test code = UBACT) FEW /HPF NONE A CAST UR (test code = CAST) /LPF NONE CRYSTAL UR (test code = CRYU) / LPF NONE MUCUS UR (test code = MUC) / HPF NONE AMORPH UR (test code = MIGUEL) / HPF NONE TRICH UR (test code = UTRICH) /HPF NONE YEAST UR (test code = UY) /HPF NONE SPERM UR (test code = USPERM) /HPF NONE PRO TIME AND [id number] 20:56:00 Test Item Value Reference Range Interpretation Comments PT (test code = 10.3 s 9.8-13.6 TT) INR (test code = 0.9 INR) INRH (test code = SUGGESTED THERAPEUTIC INRH) RANGE FOR INR: 2.5 - 3.5 For Patients with Prosthetic Valves or Patients with recurrent Thromboembolic Events 2.0 - 3.0 For Most Other Applications PTT (test code = 33.2 s 20.2-38.0 PTT) PTTH (test code = To monitor the PTTH) effectiveness of heparin, we offer the Anti-Xa (Heparin Assay). It can be used for either unfractionated or LMW Heparin. Order Code is ANTI-XA AMYLASE AND [id number] 20:55:00 Test Item Value Reference Range Interpretation Comments AMYLASE (test code = 10A) 43 U/L 30-118 LIPASE (test code = 60A) 30 IU/L 12-53 COMPREHENSIVE METABOLIC [id number] 20:55:00 Test Item Value Reference Range Interpretation Comments GLUCOSE (test code 97 mg/dL 75-100 = 06D) SODIUM (test code 140 mmol/L 136-145 = 01A) POTASSIUM (test 4.1 mmol/L 3.6-5.1 code = 01B) CHLORIDE (test 109 mmol/L 98-107 H code = 04A) CO2 (test code = 24 mmol/L 20-31 02A) ANION GAP (test 11.1 mmol/L code = ANG) BUN (test code = 18 mg/dL 9-23 05D) CREATININE (test 1.0 mg/dL 0.6-1.0 code = 03E) GFR (test code = 68 See_Comment L [Automated GFR) mL/min/1.73m\\S\\2 message] Th e system which generated this result transmit kody reference range : >=90. The reference range was not used to interpret this result as normal/abnormal . GFR 79 See_Comment L [Automated DOMINICAN (test mL/min/1.73m\\S\\2 message] The code = GFRAA) system which generated this result transmit kody reference range : >=90. The reference range was not used to interpret this result as normal/abnormal . EGFR (test code = eGFR BY EGFR) CKD-EPI CALCULATION IS NOT RECOMMENDED FOR PATIENTS UNDER 18 YEARS OF AGE. BUN/CREA (test 18 12-20 code = BCR) CALCIUM (test code 9.1 mg/dL 8.3-10.6 = 09D) BILI TOTAL (test <0.2 mg/dL 0.2-1.0 code = 11A) PROTEIN (test code 6.9 g/dL 5.7-8.2 = 07D) ALBUMIN (test code 4.2 g/dL 3.2-4.8 = 08D) GLOBULIN (test 2.7 g/dL 1.5-3.8 code = GLB) ALB/GLOB (test 1.6 1.0-2.6 code = AGRR) ALK PHOS (test 167 IU/L 46-116 H code = 35A) AST (test code = 18 IU/L See_Comment [Automated 30A) message] The system which generated this result transmit kody reference range : <=33. The reference range was not used to interpret this result as normal/abnormal . ALT (test code = 18 IU/L 10-49 31A) [id number] 20:55:00 Test Item Value Reference Range Interpretation Comments MAGNESIUM (test code = 48A) 1.9 mg/dL 1.6-2.6 CBC (INCLUDES AUTOMATED DIFFERENTIAL)2021-07-20 20:48:00 Test Item Value Reference Range Interpretation Comments WBC (test code = WBC) 9.3 10\\S\\3/uL 4.5-11.0 RBC (test code = RBC) 4.05 10\\S\\6/uL 4.20-5.60 L HGB (test code = HBG) 10.4 g/dL 12.0-15.5 L HCT (test code = HCT) 33.9 % 35.0-44.0 L MCV (test code = MCV) 83.7 fL 81.0-99.0 MCH (test code = MCH) 25.7 pg 27.0-31.0 L MCHC (test code = MCHC) 30.7 g/dL 32.0-36.0 L RDW (test code = RDW) 16.4 % 11.5-14.5 H PLT (test code = PLT) 279 10\\S\\3/uL 130-400 MPV (test code = MPV) 11.1 fL 9.4-12.4 NEUTROP # (test code = NE#) 5.7 10\\S\\3/uL 1.6-8.0 LYMPH # (test code = LY#) 2.5 10\\S\\3/uL 1.1-3.5 MONOCYTE # (test code = MO#) 0.7 10\\S\\3/uL 0.0-1.1 EOSINOPH # (test code = EO#) 0.4 10\\S\\3/uL 0.0-0.7 BASOPHIL # (test code = BA#) 0.0 10\\S\\3/uL 0.0-0.3 IG # (test code = IG#) 0.02 10\\S\\3/uL 0.00-0.06 NRBC # (test code = NRBC#) 0.00 10\\S\\3/uL 0.00-0.01 NEUTROPH % (test code = NE%) 61.5 % 35.0-73.0 LYMPH % (test code = LY%) 26.4 % 20.0-55.0 MONO % (test code = MO%) 7.6 % 2.5-10.0 EOSINOPH % (test code = EO%) 4.0 % 0.0-5.0 BASOPHIL % (test code = BA%) 0.3 % 0.0-2.0 IG % (test code = IG%) 0.2 % 0.0-0.8 NRBC% (test code = NRBC%) 0.0 % 0.0-0.2 MANDIFF (test code = MDIFF) NO SERUM [id number] 20:48:00 Test Item Value Reference Range Interpretation Comments PREG SRM (test code = PGS) NEGATIVE NEGATIVE UA RFLX MICR CULT IF [id number] 12:12:00 Test Item Value Reference Range Interpretation Comments UA COLOR (test code = YELLOW discript YEL/STRAW COLU) UA APPEARANCE (test code CLEAR discript CLEAR = APPU) UA GLUCOSE DIPSTICK (test NEGATIVE mg/dL NEG code = DGLUU) UA BILIRUBIN DIPSTICK NEGATIVE mg/dL NEG (test code = BILU) UA KETONE DIPSTICK (test NEGATIVE mg/dL NEG code = KETU) UA SPECIFIC GRAVITY (test 1.010 SG 1.005-1.030 code = SGU) UA BLOOD DIPSTICK (test 3+ mg/DL NEG A code = WINSTON) UA PH DIPSTICK (test code 7.0 pH UNITS 5.0-7.0 = FOSTER) UA PROTEIN DIPSTICK (test NEGATIVE mg/dL NEG code = PROU) UA UROBILINIOGEN DIPSTICK 0.2 mg/dL <2.0 (test code = URO) UA NITRITE DIPSTICK (test NEGATIVE SCREEN NEG code = SU) UA LEUKOCYTE ESTERASE NEGATIVE Leuk/mcL NEGATIVE DIPSTICK (test code = LEUU) UA CULTURE NEEDED? (test NO, WBC<10 Criteria Culture CHK code = UACULT) UA WBC (test code = WBCU) 1-3 #WBC/HPF 0-3 UA RBC (test code = RBCU) 1-3 #RBC/HPF 0-3 UA BACTERIA (test code = TRACE /HPF NONE-TRACE BACU) UA SQUAMOUS CELLS (test TRACE /HPF NONE code = SQU) Indication for culture: Dysuria/Frequency- CT ABD PELVIS [id number] 12:08:00[facility] : 1975 Sex: F Name: LIANA ASHBY [place] : 1975 Age/S: 46 / F [address] [facility] Unit #: [id number] Loc: [place] [address] Phys: Vanessa Caldera MD Acct: [id number] Dis Date: Status: REG ER PHONE #: [phone] Exam Date: 07/15/2021 1140 FAX #: Reason: pain EXAMS: CPT: [id number] CT ABD PELVIS W/CONT 46141 EXAM: - CT ABD PELVIS W/CONT INDICATION: pain T18 TECHNIQUE: CT of the abdomen and pelvis was performed with intravenous contrast. All CT scans are performed using radiation dose reduction technique. Technical factors are evaluated and adjusted to insure appropriate moderation of exposure. Automated dose management technology is applied to adjust the radiation dose to minimize exposure while achieving a diagnostic quality image. FINDINGS: Visualized chest: No significant abnormality seen. Hepatobiliary: Liver appears unremarkable. Prior cholecystectomy. No intrahepatic or extrahepatic biliary dilatation is seen. Hepatic and portal veins appear patent. Pancreas: Appears unremarkable. Spleen: Appears unremarkable. Adrenal glands: Appear unremarkable. Kidneys: Appear unremarkable. Gastrointestinal: Appendix: Is seen on series2, image71. It appears unremarkable. Bowel: No bowel obstruction or ileus seen. Vascular: Aorta does not appear aneurysmal. 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 Lymph nodes: No enlarged lymph nodes seen. Peritoneum: No ascites or free air is seen. Genitourinary:Urinary bladder appears to be mildly distended. Soft tissues:No significant abnormality seen. PAGE 1 Signed Report (CONTINUED) Name: LIANA ASHBY [place] : 1975 Age/S: 46 / F [address] [place] Unit #: [id number] Loc: [place] [address] Phys: Vanessa Caldera MD Acct: [id number] Dis Date: Status: REG ER PHONE #: [phone] Exam Date: 07/15/2021 1140 FAX #: Reason: pain EXAMS: CPT: [id number] CT ABD PELVIS W/CONT 03425 <Continued> Bones:No acute or destructive osseous process seen. IMPRESSION: No free air, bowel obstruction, ileus or fluid collection seen. 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 Please refer to the findings section for additional details. at 1208 Reported and signed by: Mario Pierre M.D. CC: Lashonda ASHBY; Vanessa Caldera MD Technologist:SUE ANGLIN, RT(R)(CT) CTDI: DLP: Trnscb Date/Time: 07/15/2021 (1208) [email or web address] Orig Print D/T: S: 07/15/2021 (0297) PAGE 2 Signed ReportLACTIC [id number] 11:31:00 Test Item Value Reference Range Interpretation Comments LACTIC ACID (test code = LACT) 1.6 mmol/L 0.4-2.0 N BASIC METABOLIC [id number] 11:30:00 Test Item Value Reference Range Interpretation Comments SODIUM (test code = NA) 140 mmol/L 134-147 N POTASSIUM (test code = 4.0 mmol/L 3.4-5.0 N K) CHLORIDE (test code = 104 mmol/L 100-108 N CL) CARBON DIOXIDE (test 27 mmol/L 21-32 N code = CO2) ANION GAP (test code = 9.0 GAP calc 4.0-15.0 N GAP) GLUCOSE (test code = 118 MG/DL 70-110 H GLU) BLOOD UREA NITROGEN 17 MG/DL 7-18 N (test code = BUN) GLOMERULAR FILTRATION >=60 max estimate >60 RATE (test code = GFR) estGFR CREATININE (test code = 1.0 MG/DL 0.6-1.0 N CREAT) CALCIUM (test code = CA) 9.5 MG/DL 8.5-10.1 N Completed by Nursing: NOHEPATIC FUNCTION [id number] 11:30:00 Test Item Value Reference Range Interpretation Comments TOTAL PROTEIN (test code = PROT) 7.1 G/DL 6.4-8.2 N ALBUMIN (test code = ALB) 2.9 G/DL 3.4-5.0 L BILIRUBIN TOTAL (test code = 0.10 MG/DL 0.2-1.2 L BILT) BILIRUBIN DIRECT (test code = < 0.10 MG/DL 0.00-0.30 N BILD) BILIRUBIN INDIRECT (test code = 0.00 MG/DL 0.2-1.2 L BILIND) SGOT/AST (test code = AST) 16 Unit/L 15-37 N SGPT/ALT (test code = ALT) 22 Unit/L 12-78 N ALKALINE PHOSPHATASE TOTAL (test 143 Unit/L 45-117 H code = ALKP) Completed by Nursing: [id number] 11:30:00 Test Item Value Reference Range Interpretation Comments LIPASE (test code = LIP) 78 Unit/L 114-286 L Completed by Nursing: NOTROP-I HIGH [id number] 11:30:00 Test Item Value Reference Range Interpretation Comments TROP-I HIGH 5.1 ng/L 0-34 N CAUTION: Units of the SENSITIVITY (test current te st methodology code = TROPIHS) (ng/L) diffe rfrom the prior test meth odology (ng/mL) by a fa ctor of 1000. 99t h Percentile Uppe r Reference Limit (URL):Fem ales: 34 ng/LMales: 54 n g/L In order to distin guish acute elevations of h igh sensitivitytrop onin from other clinical conditions, the FourthUnive rsal Definition of M yocardial Infarction stressesclinica l assessment and the demonstration o f a rise and/orfall in s erial troponin result s above the URL. Results fr om different metho dologies should not be c omparedto one another as quantitative re sults and URLs may varyby method. Completed by Nursing: NOCBC W/AUTO [id number] 11:21:00 Test Item Value Reference Range Interpretation Comments WHITE BLOOD CELL (test code = 10.4 K/mm3 3.5-11.0 N WBC) RED BLOOD CELL (test code = 4.18 M/mm3 4.70-6.10 L RBC) HEMOGLOBIN (test code = HGB) 10.5 G/DL 10.4-14.9 N HEMATOCRIT (test code = HCT) 34.5 % 31.5-44.1 N MEAN CELL VOLUME (test code = 82.5 Fl 84.5-98.6 L MCV) MEAN CELL HGB (test code = MCH) 25.1 pg 27.0-34.2 L MEAN CELL HGB CONCETRATION 30.4 G/DL 31.5-34.0 L (test code = MCHC) RED CELL DISTRIBUTION WIDTH 15.8 SD 11.5-14.5 H (test code = RDW) PLATELET COUNT (test code = 220 K/mm3 150-450 N PLT) MEAN PLATELET VOLUME (test code 10.90 fL 7.0-10.5 H = MPV) NEUTROPHIL % (test code = NT%) 72.9 % 40-76 N IMMATURE GRANULOCYTE % (test 0.2 % 0.0-5.0 N code = IG%) LYMPHOCYTE % (test code = LY%) 15.9 % 20.5-51.1 L MONOCYTE % (test code = MO%) 6.7 % 1.7-9.3 N EOSINOPHIL % (test code = EO%) 3.7 % 0.0-6.0 N BASOPHIL % (test code = BA%) 0.6 % 0.0-2.0 N NUCLEATED RBC % (test code = 0.0 /100WBC% 0.0-1.0 N NRBC%) NEUTROPHIL # (test code = NT#) 7.6 K/mm3 1.8-7.6 N IMMATURE GRANULOCYTE # (test 0.02 x10 3/uL 0.00-0.03 N code = IG#) LYMPHOCYTE # (test code = LY#) 1.7 K/mm3 0.6-3.2 N MONOCYTE # (test code = MO#) 0.7 K/mm3 0.3-1.1 N EOSINOPHIL # (test code = EO#) 0.4 K/mm3 0.0-0.4 N BASOPHIL # (test code = BA#) 0.1 K/mm3 0.0-0.1 N NUCLEATED RBC # (test code = 0.0 K/mm3 0.0-0.1 N NRBC#) MANUAL DIFF REQUIRED (test code NO DIFF/SCN CRITERIA = MDIFF) UR HCG [id number] 22:57:00 Test Item Value Reference Range Interpretation Comments UR HCG QUAL (test code = HCGQLU) NEGATIVE NEGATIVE - CT ABD PELVIS [id number] 19:50:00 [facility] 1975 Sex: F Name: LIANA ASHBY [facility] : 1975 Age/S: 46 / F [id number] [address] [place] Unit #: [id number] Loc: [place] [address] Phys: Brandon Hays Acct: [id number] Dis Date: Status: REG ER PHONE #: [phone] Exam Date: 07/13/20211935 FAX #: Reason: epigastric pain EXAMS: CPT: [id number] CT ABD PELVIS W/CONT 59590 EXAM: CT abdomen and pelvis INDICATION: epigastric pain COMPARISON: June 17, 2021 LOCATION: [facility] CT scan of the abdomen and pelvis was performed with intravenous contrast. One or more of the following radiation dose reduction techniques was used: automated exposure control, adjustment of mA and/or KV according to patient size, and/or utilization of iterative reconstruction technique. FINDINGS: Quality of Exam: Acceptable. LIVER: The liver is unremarkable. BILIARY SYSTEM: There is no biliary dilatation. The gallbladder has been previously removed. SPLEEN: The spleen is unremarkable. PANCREAS: The pancreas is unremarkable. ADRENAL GLANDS: The adrenal glands are unremarkable. KIDNEYS: The kidneys appear unremarkable. AORTA: There is no abdominal aortic aneurysm or dissection. THORACIC: Included images of the lower chest demonstrate no abnormalities. APPENDIX: The appendix appears unremarkable. GASTROINTESTINAL: There is no imaging evidence of large or small bowel obstruction.Postsurgical changes involving the stomach and bowel are again identified. PAGE 1 Signed Report (CONTINUED) Name: LIANA ASHBY [facility] : 1975 Age/S: 46 / F [address] [address] [place] Unit #: [id number] Loc: [place] [address] Phys: Brandon Hays Acct: [id number] Dis Date: Status: REG ER PHONE #: [phone] Exam Date: 07/13/2021 1936 FAX #: Reason: epigastric pain EXAMS: CPT: [id number] CT ABD PELVIS W/CONT 44806 <Continued> BONES/SOFT TISSUES: No concerning bony lesion identified. LYMPHATICS: No enlarged lymph nodes by CT criteria. PERITONEUM/OTHER: No free air and no free fluid are identified. No abnormal localized fluid collection is identified. IMPRESSION: Unremarkable CTscan of the abdomen and pelvis. at 1949 Reported and signed by: Wang Candelario M.D. CC: Autumn ASHBY; Brandon Hays DO Technologist:Ela Shafer, RT(R)(CT) CTDI: DLP: Trnscb Date/Time: 07/13/2021 (1949) t.SDR.PMT Orig Print D/T: S: 07/13/2021 (1952) PAGE 2 Signed Report- XR CHEST 1 [id number] 19:14:00 [facility] : 1975 Sex: F Name: LIANA ASHBY [facility] : 1975 Age/S: 46 / F [address] [address] [place] Unit #: [id number] Loc: [place] [address] Phys: Brandon Hays Acct: [id number] Dis Date: Status: REG ER PHONE #: [phone] Exam Date: 07/13/20211903 FAX #: Reason: Code Sepsis EXAMS: CPT: [id number] XR CHEST 1 V 55126 Fluoro Time: DAP (Gy m2): Air Kerma (mGy): EXAM: - XR CHEST 1 V HISTORY: Chest pain. COMPARISON: January 08, 2021. FINDINGS: Single AP view of the chest is provided. Heart size and vascularity are within normal limits. There is no evidence of a focal consolidation. There is no pleural effusion or pneumothorax. There is no definite acute osseous abnormality. IMPRESSION: No radiographic evidence of acute cardiopulmonary process. at 1913 Reported and signed by: Cheko Castellon M.D. CC: Autumn ASHBY; Brandon Hays DO PAGE 1 Signed Report Name: LIANA ASHBY [facility] : 1975 Age/S: 46 / F [address] [address] [place] Unit #: [id number] Loc: [place] [address] Phys: Brandon Hays DO Acct: [id number] Dis Date:Status: REG ER PHONE #: [phone] Exam Date: 07/13/20211903 FAX #: Reason: Code Sepsis EXAMS: CPT: [id number] XR CHEST 1 V 70814 Fluoro Time: DAP (Gy m2): Air Kerma (mGy): <Continued> Technologist: Ela Shafer RT(R)(CT) Trnscb Date/Time: 07/13/2021 (1913) [email or web address] Orig Print D/T: S: 07/13/2021 (1916) PAGE 2 Signed ReportLACTIC [id number] 19:12:00 Test Item Value Reference Range Interpretation Comments LACTIC ACID (test code = LACT) 1.3 mmol/L 0.4-2.0 N BASIC METABOLIC [id number] 19:11:00 Test Item Value Reference Range Interpretation Comments SODIUM (test code = NA) 138 mmol/L 134-147 N POTASSIUM (test code = K) 4.1 mmol/L 3.4-5.0 N CHLORIDE (test code = CL) 107 mmol/L 100-108 N CARBON DIOXIDE (test code = CO2) 25 mmol/L 21-32 N ANION GAP (test code = GAP) 6.0 GAP calc 4.0-15.0 N GLUCOSE (test code = GLU) 92 MG/DL 70-110 N BLOOD UREA NITROGEN (test code = 18 MG/DL 7-18 N BUN) GLOMERULAR FILTRATION RATE (test 52 estGFR >60 L code = GFR) CREATININE (test code = CREAT) 1.2 MG/DL 0.6-1.0 H CALCIUM (test code = CA) 9.6 MG/DL 8.5-10.1 N Completed by Nursing: NOHEPATIC FUNCTION [id number] 19:11:00 Test Item Value Reference Range Interpretation Comments TOTAL PROTEIN (test code = PROT) 8.2 G/DL 6.4-8.2 N ALBUMIN (test code = ALB) 3.4 G/DL 3.4-5.0 N BILIRUBIN TOTAL (test code = 0.30 MG/DL 0.2-1.2 N BILT) BILIRUBIN DIRECT (test code = < 0.10 MG/DL 0.00-0.30 N BILD) BILIRUBIN INDIRECT (test code = 0.20 MG/DL 0.2-1.2 N BILIND) SGOT/AST (test code = AST) 17 Unit/L 15-37 N SGPT/ALT (test code = ALT) 26 Unit/L 12-78 N ALKALINE PHOSPHATASE TOTAL (test 166 Unit/L 45-117 H code = ALKP) Completed by Nursing: [id number] 19:11:00 Test Item Value Reference Range Interpretation Comments LIPASE (test code = LIP) 95 Unit/L 114-286 L Completed by Nursing: NOTROP-I HIGH [id number] 19:11:00 Test Item Value Reference Range Interpretation Comments TROP-I HIGH 8.7 ng/L 0-34 N CAUTION: Units of the SENSITIVITY (test current te st methodology code = TROPIHS) (ng/L) diffe rfrom the prior test meth odology (ng/mL) by a fa ctor of 1000. 99t h Percentile Uppe r Reference Limit (URL):Fem ales: 34 ng/LMales: 54 n g/L In order to distin guish acute elevations of h igh sensitivitytrop onin from other clinical conditions, the FourthUnive rsal Definition of M yocardial Infarction stressesclinica l assessment and the demonstration o f a rise and/orfall in s erial troponin result s above the URL. Results fr om different metho dologies should not be c omparedto one another as quantitative re sults and URLs may varyby method. Completed by Nursing: KELLY W/AUTO [id number] 19:04:00 Test Item Value Reference Range Interpretation Comments WHITE BLOOD CELL (test 10.9 K/mm3 3.5-11.0 N code = WBC) RED BLOOD CELL (test 4.64 M/mm3 4.70-6.10 L code = RBC) HEMOGLOBIN (test code 11.7 G/DL 10.4-14.9 N = HGB) HEMATOCRIT (test code 38.0 % 31.5-44.1 N = HCT) MEAN CELL VOLUME (test 81.9 Fl 84.5-98.6 L code = MCV) MEAN CELL HGB (test 25.2 pg 27.0-34.2 L code = MCH) MEAN CELL HGB 30.8 G/DL 31.5-34.0 L CONCETRATION (test code = MCHC) RED CELL DISTRIBUTION 15.7 SD 11.5-14.5 H WIDTH (test code = RDW) PLATELET COUNT (test 214 K/mm3 150-450 N PLATELE T COUNT code = PLT) REVIEWED AND VERIFIED. MEAN PLATELET VOLUME 11.70 fL 7.0-10.5 H (test code = MPV) NEUTROPHIL % (test 71.7 % 40-76 N code = NT%) IMMATURE GRANULOCYTE % 0.3 % 0.0-5.0 N (test code = IG%) LYMPHOCYTE % (test 18.2 % 20.5-51.1 L code = LY%) MONOCYTE % (test code 7.6 % 1.7-9.3 N = MO%) EOSINOPHIL % (test 1.7 % 0.0-6.0 N code = EO%) BASOPHIL % (test code 0.5 % 0.0-2.0 N = BA%) NUCLEATED RBC % (test 0.0 /100WBC% 0.0-1.0 N code = NRBC%) NEUTROPHIL # (test 7.8 K/mm3 1.8-7.6 H code = NT#) IMMATURE GRANULOCYTE # 0.03 x10 3/uL 0.00-0.03 N (test code = IG#) LYMPHOCYTE # (test 2.0 K/mm3 0.6-3.2 N code = LY#) MONOCYTE # (test code 0.8 K/mm3 0.3-1.1 N = MO#) EOSINOPHIL # (test 0.2 K/mm3 0.0-0.4 N code = EO#) BASOPHIL # (test code 0.1 K/mm3 0.0-0.1 N = BA#) NUCLEATED RBC # (test 0.0 K/mm3 0.0-0.1 N code = NRBC#) MANUAL DIFF REQUIRED NO DIFF/SCN CRITERIA (test code = MDIFF) ECG [id number] 05:12:35 Test Item Value Reference Range Interpretation Comments Ventricular rate (test code = 253) Atrial rate (test code = 255) ND interval (test code = 266) QRSD interval (test code = 260) QT interval (test code = 264) QTC interval (test code = 265) P axis 1 (test code = 267) QRS axis 1 (test code = 268) T wave axis (test code = 270) EKG impression (test Sinus code = 273) tachycardia-Otherwise normal ECG-In automated comparison with ECG of 02-FEB-2021 11:55,-No significant change was found- [facility] [id number] 05:12:35 Test Item Value Reference Range Interpretation Comments Ventricular rate (test code = 253) Atrial rate (test code = 255) ND interval (test code = 266) QRSD interval (test code = 260) QT interval (test code = 264) QTC interval (test code = 265) P axis 1 (test code = 267) QRS axis 1 (test code = 268) T wave axis (test code = 270) EKG impression (test Sinus code = 273) tachycardia-Otherwise normal ECG-In automated comparison with ECG of 02-FEB-2021 11:55,-No significant change was found- [address]2022-02-08 05:12:35 Test Item Value Reference Range Interpretation Comments Ventricular rate (test code = 253) Atrial rate (test code = 255) ND interval (test code = 266) QRSD interval (test code = 260) QT interval (test code = 264) QTC interval (test code = 265) P axis 1 (test code = 267) QRS axis 1 (test code = 268) T wave axis (test code = 270) EKG impression (test Sinus code = 273) tachycardia-Otherwise normal ECG-In automated comparison with ECG of 02-FEB-2021 11:55,-No significant change was found- [address]2022-02-08 05:12:35 Test Item Value Reference Range Interpretation Comments Ventricular rate (test code = 253) Atrial rate (test code = 255) ND interval (test code = 266) QRSD interval (test code = 260) QT interval (test code = 264) QTC interval (test code = 265) P axis 1 (test code = 267) QRS axis 1 (test code = 268) T wave axis (test code = 270) EKG impression (test Sinus code = 273) tachycardia-Otherwise normal ECG-In automated comparison with ECG of 02-FEB-2021 11:55,-No significant change was found- [address]2022-02-08 05:12:35 Test Item Value Reference Range Interpretation Comments Ventricular rate (test code = 253) Atrial rate (test code = 255) ND interval (test code = 266) QRSD interval (test code = 260) QT interval (test code = 264) QTC interval (test code = 265) P axis 1 (test code = 267) QRS axis 1 (test code = 268) T wave axis (test code = 270) EKG impression (test Sinus code = 273) tachycardia-Otherwise normal ECG-In automated comparison with ECG of 02-FEB-2021 11:55,-No significant change was found- [facility]2022-02-07 10:11:00 Test Item Value Reference Range Interpretation Comments Glucose Lvl (test code = Glucose Lvl) 96 70-99 [place] [id number] 10:11:00 Test Item Value Reference Range Interpretation Comments BUN (test code = BUN) 6 7-22 [place] [id number] 10:11:00 Test Item Value Reference Range Interpretation Comments Creatinine Lvl (test code = Creatinine 0.88 0.50-1.40 Lvl) [place] [id number] 10:11:00 Test Item Value Reference Range Interpretation Comments Sodium Lvl (test code = Sodium Lvl) 141 135-145 [place] [id number] 10:11:00 Test Item Value Reference Range Interpretation Comments Potassium Lvl (test code = Potassium 3.9 3.5-5.1 Lvl) [place] [id number] 10:11:00 Test Item Value Reference Range Interpretation Comments Chloride Lvl (test code = Chloride Lvl) 111 95-109 [place] 559312-02-07 10:11:00 Test Item Value Reference Range Interpretation Comments CO2 (test code = CO2) 26 24-32 [place] [id number] 10:11:00 Test Item Value Reference Range Interpretation Comments Calcium Lvl (test code = Calcium Lvl) 8.7 8.5-10.5 [place] 559312-02-07 10:11:00 Test Item Value Reference Range Interpretation Comments AGAP (test code = AGAP) 7.9 10.0-20.0 [place] [id number] 10:11:00 Test Item Value Reference Range Interpretation Comments eGFR (test code = eGFR) 79 [place] 559312-02-07 10:11:00 Test Item Value Reference Range Interpretation Comments Phosphorus (test code = Phosphorus) 3.9 2.5-4.5 [place] [id number] 10:11:00 Test Item Value Reference Range Interpretation Comments Segs (test code = Segs) 52.8 45.0-75.0 [id number] 10:11:00 Test Item Value Reference Range Interpretation Comments Lymphocytes (test code = Lymphocytes) 33.2 20.0-40.0 [place] [id number] 10:11:00 Test Item Value Reference Range Interpretation Comments Monocytes (test code = Monocytes) 8.8 2.0-12.0 [place] [id number] 10:11:00 Test Item Value Reference Range Interpretation Comments Eosinophils (test code = 4.2 See_Comment [A utomated message] The Eosinophils) system which ge nerated this result tra nsmitted reference range : <=4.0. The reference r belinda was not used to int erpret this result as normal/abnormal . [id number] 10:11:00 Test Item Value Reference Range Interpretation Comments Basophils (test code = 1.0 See_Comment [Aut omated message] The Basophils) system which ge nerated this result tra nsmitted reference range : <=1.0. The reference r belinda was not used to int erpret this result as normal/abnormal . [facility]bergWaugkafEZUGDRBUUU3844-29-25 10:11:00 Test Item Value Reference Range Interpretation Comments Neutrophils # (test code = Neutrophils 2.7 1.5-8.1 #) [facility] KlebergUuccnwaRLKOTKIEZF2239-28-25 10:11:00 Test Item Value Reference Range Interpretation Comments Lymphocytes # (test code = Lymphocytes 1.7 1.0-5.5 #) [place] 765442-02-07 10:11:00 Test Item Value Reference Range Interpretation Comments Monocytes # (test code 0.5 See_Comment [Aut omated message] The = Monocytes #) system which generated this result tra nsmitted reference range : <=0.8. The reference r belinda was not used to int erpret this result as normal/abnormal . [place] 765442-02-07 10:11:00 Test Item Value Reference Range Interpretation Comments Eosinophils # (test code 0.2 See_Comment [A utomated message] The = Eosinophils #) system whic h generated this result tra nsmitted reference range : <=0.5. The reference r belinda was not used to int erpret this result as normal/abnormal . [facility] KlebergAyjgvahKGYJHDXNBO4010-67-03 10:11:00 Test Item Value Reference Range Interpretation Comments Basophils # (test code 0.1 See_Comment [Aut omated message] The = Basophils #) system which generated this result tra nsmitted reference range : <=0.2. The reference r belinda was not used to int erpret this result as normal/abnormal . [facility] KlebergBpzplycDSQCJILRDE1737-69-78 10:11:00 Test Item Value Reference Range Interpretation Comments WBC (test code = WBC) 5.2 3.7-10.4 [facility]bergKnylwvwKJZHASYXPK9592-22-68 10:11:00 Test Item Value Reference Range Interpretation Comments RBC (test code = RBC) 3.98 4.20-5.40 [facility] KlebergZkmddchQURZKCYAWK0570-96-29 10:11:00 Test Item Value Reference Range Interpretation Comments Hgb (test code = Hgb) 10.0 12.0-16.0 [facility] KlebergRdliorkUMNZXFSWLF1456-38-33 10:11:00 Test Item Value Reference Range Interpretation Comments Hct (test code = Hct) 32.0 36.0-48.0 [facility] KlebergKiqlrfsPOOSYIEEYA6823-00-89 10:11:00 Test Item Value Reference Range Interpretation Comments MCV (test code = MCV) 80.5 80.0-98.0 [facility] KlebergXdoziliBRKITTDBHA7640-82-11 10:11:00 Test Item Value Reference Range Interpretation Comments MCH (test code = MCH) 25.2 pg 27.0-31.0 [facility] KlebergIyexvomBZVKPRDENL2306-16-75 10:11:00 Test Item Value Reference Range Interpretation Comments MCHC (test code = MCHC) 31.3 32.0-36.0 [facility] KlebergIcruarnKYFQRPCRII3197-32-38 10:11:00 Test Item Value Reference Range Interpretation Comments RDW (test code = RDW) 17.3 11.5-14.5 [place] 765442-02-07 10:11:00 Test Item Value Reference Range Interpretation Comments Platelet (test code = Platelet) 230 133-450 [facility] KlebergLmnojljHGKLLFTCXG2688-85-04 10:11:00 Test Item Value Reference Range Interpretation Comments MPV (test code = MPV) 8.8 7.4-10.4 [place] 419422-02-07 10:11:00 Test Item Value Reference Range Interpretation Comments Ca Ion WB (test code = Ca Ion WB) 1.25 1.05-1.25 [facility]2022-02-07 10:11:00 Test Item Value Reference Range Interpretation Comments Ca Norm WB (test code = Ca Norm WB) 1.20 1.05-1.25 [facility]2022-02-07 10:11:00 Test Item Value Reference Range Interpretation Comments Glucose Lvl (test code = Glucose Lvl) 96 70-99 [facility]2022-02-07 10:11:00 Test Item Value Reference Range Interpretation Comments BUN (test code = BUN) 6 7-22 [place] 559312-02-07 10:11:00 Test Item Value Reference Range Interpretation Comments Creatinine Lvl (test code = Creatinine 0.88 0.50-1.40 Lvl) [facility]2022-02-07 10:11:00 Test Item Value Reference Range Interpretation Comments Sodium Lvl (test code = Sodium Lvl) 141 135-145 [place] 559312-02-07 10:11:00 Test Item Value Reference Range Interpretation Comments Potassium Lvl (test code = Potassium 3.9 3.5-5.1 Lvl) [facility]2022-02-07 10:11:00 Test Item Value Reference Range Interpretation Comments Chloride Lvl (test code = Chloride Lvl) 111 95-109 [place] 559312-02-07 10:11:00 Test Item Value Reference Range Interpretation Comments CO2 (test code = CO2) 26 24-32 [facility]2022-02-07 10:11:00 Test Item Value Reference Range Interpretation Comments Calcium Lvl (test code = Calcium Lvl) 8.7 8.5-10.5 [facility]2022-02-07 10:11:00 Test Item Value Reference Range Interpretation Comments AGAP (test code = AGAP) 7.9 10.0-20.0 [place] 559312-02-07 10:11:00 Test Item Value Reference Range Interpretation Comments eGFR (test code = eGFR) 79 [facility]2022-02-07 10:11:00 Test Item Value Reference Range Interpretation Comments Phosphorus (test code = Phosphorus) 3.9 2.5-4.5 [facility]bergWrznmhuHVQNMAIYPZ2279-28-73 10:11:00 Test Item Value Reference Range Interpretation Comments Segs (test code = Segs) 52.8 45.0-75.0 [facility] KlebergTvipfwlQYQNGOHYSX8406-86-66 10:11:00 Test Item Value Reference Range Interpretation Comments Lymphocytes (test code = Lymphocytes) 33.2 20.0-40.0 [place] 765442-02-07 10:11:00 Test Item Value Reference Range Interpretation Comments Monocytes (test code = Monocytes) 8.8 2.0-12.0 [place] 765442-02-07 10:11:00 Test Item Value Reference Range Interpretation Comments Eosinophils (test code = 4.2 See_Comment [A utomated message] The Eosinophils) system which ge nerated this result tra nsmitted reference range : <=4.0. The reference r belinda was not used to int erpret this result as normal/abnormal . [facility]bergHahvmeiBBHVFGBMLC8545-86-01 10:11:00 Test Item Value Reference Range Interpretation Comments Basophils (test code = 1.0 See_Comment [Aut omated message] The Basophils) system which ge nerated this result tra nsmitted reference range : <=1.0. The reference r belinda was not used to int erpret this result as normal/abnormal . [facility]bergPojqjymKZHPJGDLGB4971-12-42 10:11:00 Test Item Value Reference Range Interpretation Comments Neutrophils # (test code = Neutrophils 2.7 1.5-8.1 #) [place] 765442-02-07 10:11:00 Test Item Value Reference Range Interpretation Comments Lymphocytes # (test code = Lymphocytes 1.7 1.0-5.5 #) [place] 765442-02-07 10:11:00 Test Item Value Reference Range Interpretation Comments Monocytes # (test code 0.5 See_Comment [Aut omated message] The = Monocytes #) system which generated this result tra nsmitted reference range : <=0.8. The reference r belinda was not used to int erpret this result as normal/abnormal . [place] [address]-02-07 10:11:00 Test Item Value Reference Range Interpretation Comments Eosinophils # (test code 0.2 See_Comment [A utomated message] The = Eosinophils #) system whic h generated this result tra nsmitted reference range : <=0.5. The reference r belinda was not used to int erpret this result as normal/abnormal . [facility]bergBbbpapdKIAGTOJEHP0370-57-86 10:11:00 Test Item Value Reference Range Interpretation Comments Basophils # (test code 0.1 See_Comment [Aut omated message] The = Basophils #) system which generated this result tra nsmitted reference range : <=0.2. The reference r belinda was not used to int erpret this result as normal/abnormal . [facility] KlebergLvovudaSCIFHQHYWO4027-63-82 10:11:00 Test Item Value Reference Range Interpretation Comments WBC (test code = WBC) 5.2 3.7-10.4 [place] 765442-02-07 10:11:00 Test Item Value Reference Range Interpretation Comments RBC (test code = RBC) 3.98 4.20-5.40 [facility]bergVsbrdjrBOKTWZYJXM8265-39-14 10:11:00 Test Item Value Reference Range Interpretation Comments Hgb (test code = Hgb) 10.0 12.0-16.0 [facility]bergIyapzlwKBLTHRSQVW8839-42-92 10:11:00 Test Item Value Reference Range Interpretation Comments Hct (test code = Hct) 32.0 36.0-48.0 [place] 765442-02-07 10:11:00 Test Item Value Reference Range Interpretation Comments MCV (test code = MCV) 80.5 80.0-98.0 [facility] KlebergZjfmzyxEPLLTXMOAE0330-16-70 10:11:00 Test Item Value Reference Range Interpretation Comments MCH (test code = MCH) 25.2 pg 27.0-31.0 [place] 765442-02-07 10:11:00 Test Item Value Reference Range Interpretation Comments MCHC (test code = MCHC) 31.3 32.0-36.0 [place] 765442-02-07 10:11:00 Test Item Value Reference Range Interpretation Comments RDW (test code = RDW) 17.3 11.5-14.5 [facility]bergKoewmamHWFEKOLQYJ1827-10-16 10:11:00 Test Item Value Reference Range Interpretation Comments Platelet (test code = Platelet) 230 133-450 [facility] KlebergJtogdzkKGIJUKWSTV5015-90-71 10:11:00 Test Item Value Reference Range Interpretation Comments MPV (test code = MPV) 8.8 7.4-10.4 [facility]2022-02-07 10:11:00 Test Item Value Reference Range Interpretation Comments Ca Ion WB (test code = Ca Ion WB) 1.25 1.05-1.25 [facility]2022-02-07 10:11:00 Test Item Value Reference Range Interpretation Comments Ca Norm WB (test code = Ca Norm WB) 1.20 1.05-1.25 [facility] [id number] 03:30:00 Test Item Value Reference Range Interpretation Comments Lactic Acid Lvl (test code = Lactic 1.2 0.5-2.2 Acid Lvl) [facility] [id number] 03:30:00 Test Item Value Reference Range Interpretation Comments Procalcitonin Lvl <0.05 ng/mL See_Comment [Automate d message] (test code = The system whic h Procalcitonin Lvl) generated this result transmit kody reference range : <=0.10. The reference range was not used to interpret this result as normal/abnormal . [facility] [id number] 03:30:00 Test Item Value Reference Range Interpretation Comments Magnesium Lvl (test code = Magnesium 2.0 1.8-2.4 Lvl) [facility]bergDopbdslZRNPAWKAUG8215-69-60 03:30:00 Test Item Value Reference Range Interpretation Comments D-Dimer (test code = D-Dimer) 0.38 [place] 765442-02-07 03:30:00 Test Item Value Reference Range Interpretation Comments PT (test code = PT) 12.3 s 12.0-14.7 [place] 765442-02-07 03:30:00 Test Item Value Reference Range Interpretation Comments INR (test code = INR) 0.92 1 0.85-1.17 [place] 765442-02-07 03:30:00 Test Item Value Reference Range Interpretation Comments PTT (test code = PTT) 29.4 s 22.9-35.8 [place] 419422-02-07 03:30:00 Test Item Value Reference Range Interpretation Comments Ca Ion WB (test code = Ca Ion WB) 1.20 1.05-1.25 [place] 419422-02-07 03:30:00 Test Item Value Reference Range Interpretation Comments Ca Norm WB (test code = Ca Norm WB) 1.17 1.05-1.25 [place] 559312-02-07 03:30:00 Test Item Value Reference Range Interpretation Comments Lactic Acid Lvl (test code = Lactic 1.2 0.5-2.2 Acid Lvl) [place] 559312-02-07 03:30:00 Test Item Value Reference Range Interpretation Comments Procalcitonin Lvl <0.05 ng/mL See_Comment [Automate d message] (test code = The system whic h Procalcitonin Lvl) generated this result transmit kody reference range : <=0.10. The reference range was not used to interpret this result as normal/abnormal . [facility] [id number] 03:30:00 Test Item Value Reference Range Interpretation Comments Magnesium Lvl (test code = Magnesium 2.0 1.8-2.4 Lvl) [place] 765442-02-07 03:30:00 Test Item Value Reference Range Interpretation Comments D-Dimer (test code = D-Dimer) 0.38 [place] [address]-02-07 03:30:00 Test Item Value Reference Range Interpretation Comments PT (test code = PT) 12.3 s 12.0-14.7 [place] [address]-02-07 03:30:00 Test Item Value Reference Range Interpretation Comments INR (test code = INR) 0.92 1 0.85-1.17 [place] [address]-02-07 03:30:00 Test Item Value Reference Range Interpretation Comments PTT (test code = PTT) 29.4 s 22.9-35.8 [place] 419422-02-07 03:30:00 Test Item Value Reference Range Interpretation Comments Ca Ion WB (test code = Ca Ion WB) 1.20 1.05-1.25 [place] 419422-02-07 03:30:00 Test Item Value Reference Range Interpretation Comments Ca Norm WB (test code = Ca Norm WB) 1.17 1.05-1.25 [facility]bergJikclcpHOYSOIAHZN0398-85-17 01:28:00 Test Item Value Reference Range Interpretation Comments Coronavirus (COVID-19) Not Detected (06/24/21 LYNETTE (test code = 7:28 PM) Coronavirus (COVID-19) LYNETTE) [facility]lx[facility]juFMXXCJKDMY1172-44-08 01:28:00 Test Item Value Reference Range Interpretation Comments Coronavirus (COVID-19) Not Detected (06/24/21 LYNETTE (test code = 7:28 PM) Coronavirus (COVID-19) LYNETTE) [facility] [id number] 22:19:00 Test Item Value Reference Range Interpretation Comments BNP (test code = BNP) 55 [facility] [id number] 22:19:00 Test Item Value Reference Range Interpretation Comments Total CK (test code = Total CK) 232 12-191 [facility] BrookSafe CommunicationsVSPBI9409-84-26 22:19:00 Test Item Value Reference Range Interpretation Comments Glucose Lvl (test code = Glucose Lvl) 123 70-99 [facility] [id number] 22:19:00 Test Item Value Reference Range Interpretation Comments BUN (test code = BUN) 9 7-22 [facility] [id number] 22:19:00 Test Item Value Reference Range Interpretation Comments Creatinine Lvl (test code = Creatinine 1.03 0.50-1.40 Lvl) [facility] [id number] 22:19:00 Test Item Value Reference Range Interpretation Comments Sodium Lvl (test code = Sodium Lvl) 140 135-145 [facility] [id number] 22:19:00 Test Item Value Reference Range Interpretation Comments Potassium Lvl (test code = Potassium 3.9 3.5-5.1 Lvl) [facility] [id number] 22:19:00 Test Item Value Reference Range Interpretation Comments Chloride Lvl (test code = Chloride Lvl) 110 95-109 [facility] BrookSafe CommunicationsFMYNZ3760-27-74 22:19:00 Test Item Value Reference Range Interpretation Comments CO2 (test code = CO2) 27 24-32 [facility] [id number] 22:19:00 Test Item Value Reference Range Interpretation Comments Calcium Lvl (test code = Calcium Lvl) 8.8 8.5-10.5 [facility] [id number] 22:19:00 Test Item Value Reference Range Interpretation Comments Total Protein (test code = Total 7.2 6.4-8.4 Protein) [place] 559312-02-06 22:19:00 Test Item Value Reference Range Interpretation Comments Albumin Lvl (test code = Albumin Lvl) 2.9 3.5-5.0 [facility] [id number] 22:19:00 Test Item Value Reference Range Interpretation Comments ALT (test code = ALT) 20 See_Comment [Auto mated message] The system which ge nerated this result transmit kody reference range : <=65. The reference range was not used to interpr et this result as michell l/abnormal. [facility] [id number] 22:19:00 Test Item Value Reference Range Interpretation Comments AST (test code = AST) 17 See_Comment [Auto mated message] The system which ge nerated this result transmit kody reference range : <=37. The reference range was not used to interpr et this result as michell l/abnormal. [facility] [id number] 22:19:00 Test Item Value Reference Range Interpretation Comments Alk Phos (test code = Alk Phos) 135 39-136 [facility] [id number] 22:19:00 Test Item Value Reference Range Interpretation Comments Bili Total (test code = Bili Total) 0.2 0.2-1.3 [facility] [id number] 22:19:00 Test Item Value Reference Range Interpretation Comments AGAP (test code = AGAP) 6.9 10.0-20.0 [facility] [id number] 22:19:00 Test Item Value Reference Range Interpretation Comments B/C Ratio (test code = B/C Ratio) 9 1 6-25 [facility] [id number] 22:19:00 Test Item Value Reference Range Interpretation Comments Globulin (test code = Globulin) 4.3 2.7-4.2 [facility] [id number] 22:19:00 Test Item Value Reference Range Interpretation Comments A/G Ratio (test code = A/G Ratio) 0.7 1 0.7-1.6 [facility]2022-02-06 22:19:00 Test Item Value Reference Range Interpretation Comments eGFR (test code = eGFR) 66 [facility] [id number] 22:19:00 Test Item Value Reference Range Interpretation Comments Lipase Lvl (test code = Lipase Lvl) 24 73-393 [facility]2022-02-06 22:19:00 Test Item Value Reference Range Interpretation Comments Phosphorus (test code = Phosphorus) 2.2 2.5-4.5 [facility]OWANYDEQKTAVY4566-96-74 22:19:00 Test Item Value Reference Range Interpretation Comments S Preg (test code = S Negative *NA*(06/24/21 Preg) 4:19 PM) [place] 765442-02-06 22:19:00 Test Item Value Reference Range Interpretation Comments WBC (test code = WBC) 8.9 3.7-10.4 [place] 765442-02-06 22:19:00 Test Item Value Reference Range Interpretation Comments RBC (test code = RBC) 4.24 4.20-5.40 [facility] KlebergDiktlxiGOHYCMLWHB0210-79-60 22:19:00 Test Item Value Reference Range Interpretation Comments Hgb (test code = Hgb) 10.8 12.0-16.0 [place] 765442-02-06 22:19:00 Test Item Value Reference Range Interpretation Comments Hct (test code = Hct) 33.8 36.0-48.0 [place] 765442-02-06 22:19:00 Test Item Value Reference Range Interpretation Comments MCV (test code = MCV) 79.6 80.0-98.0 [place] 765442-02-06 22:19:00 Test Item Value Reference Range Interpretation Comments MCH (test code = MCH) 25.4 pg 27.0-31.0 [place] 765442-02-06 22:19:00 Test Item Value Reference Range Interpretation Comments MCHC (test code = MCHC) 32.0 32.0-36.0 [place] 765442-02-06 22:19:00 Test Item Value Reference Range Interpretation Comments RDW (test code = RDW) 17.0 11.5-14.5 [place] 765442-02-06 22:19:00 Test Item Value Reference Range Interpretation Comments Platelet (test code = Platelet) 269 133-450 [facility]bergBqgdzmnJPKPIGHEER7755-10-18 22:19:00 Test Item Value Reference Range Interpretation Comments MPV (test code = MPV) 9.0 7.4-10.4 [facility] KlebergBldmranZPBUUPDUBF5933-37-66 22:19:00 Test Item Value Reference Range Interpretation Comments Segs (test code = Segs) 67.2 45.0-75.0 [place] 765442-02-06 22:19:00 Test Item Value Reference Range Interpretation Comments Lymphocytes (test code = Lymphocytes) 21.8 20.0-40.0 [place] 765442-02-06 22:19:00 Test Item Value Reference Range Interpretation Comments Monocytes (test code = Monocytes) 7.5 2.0-12.0 [facility] KlebergIoyuryfVFRDSQXUPA8629-34-37 22:19:00 Test Item Value Reference Range Interpretation Comments Eosinophils (test code = 2.4 See_Comment [A utomated message] The Eosinophils) system which ge nerated this result tra nsmitted reference range : <=4.0. The reference r belinda was not used to int erpret this result as normal/abnormal . [facility]bergXxzvwghAEALPTWHXK3144-72-75 22:19:00 Test Item Value Reference Range Interpretation Comments Basophils (test code = 1.1 See_Comment [Aut omated message] The Basophils) system which ge nerated this result tra nsmitted reference range : <=1.0. The reference r belinda was not used to int erpret this result as normal/abnormal . [facility]bergWrsfvqaAVFCMESSKM7913-85-27 22:19:00 Test Item Value Reference Range Interpretation Comments Neutrophils # (test code = Neutrophils 6.0 1.5-8.1 #) [place] 765442-02-06 22:19:00 Test Item Value Reference Range Interpretation Comments Lymphocytes # (test code = Lymphocytes 1.9 1.0-5.5 #) [place] 765442-02-06 22:19:00 Test Item Value Reference Range Interpretation Comments Monocytes # (test code 0.7 See_Comment [Aut omated message] The = Monocytes #) system which generated this result tra nsmitted reference range : <=0.8. The reference r belinda was not used to int erpret this result as normal/abnormal . [facility] BrookFwadwjyAPNKKUZBXL4977-90-75 22:19:00 Test Item Value Reference Range Interpretation Comments Eosinophils # (test code 0.2 See_Comment [A utomated message] The = Eosinophils #) system whic h generated this result tra nsmitted reference range : <=0.5. The reference r belinda was not used to int erpret this result as normal/abnormal . [facility]bergOknlvwgYLPCLBRWQJ7173-88-87 22:19:00 Test Item Value Reference Range Interpretation Comments Basophils # (test code 0.1 See_Comment [Aut omated message] The = Basophils #) system which generated this result tra nsmitted reference range : <=0.2. The reference r belinda was not used to int erpret this result as normal/abnormal . [facility] [id number] 22:19:00 Test Item Value Reference Range Interpretation Comments BNP (test code = BNP) 55 [facility] 9112022-02-06 22:19:00 Test Item Value Reference Range Interpretation Comments Total CK (test code = Total CK) 232 12-191 [facility] [id number] 22:19:00 Test Item Value Reference Range Interpretation Comments Glucose Lvl (test code = Glucose Lvl) 123 70-99 [facility] [id number] 22:19:00 Test Item Value Reference Range Interpretation Comments BUN (test code = BUN) 9 7-22 [facility] RepRegen [id number] 22:19:00 Test Item Value Reference Range Interpretation Comments Creatinine Lvl (test code = Creatinine 1.03 0.50-1.40 Lvl) [facility] [id number] 22:19:00 Test Item Value Reference Range Interpretation Comments Sodium Lvl (test code = Sodium Lvl) 140 135-145 [facility] [id number] 22:19:00 Test Item Value Reference Range Interpretation Comments Potassium Lvl (test code = Potassium 3.9 3.5-5.1 Lvl) [facility] [id number] 22:19:00 Test Item Value Reference Range Interpretation Comments Chloride Lvl (test code = Chloride Lvl) 110 95-109 [place] 559312-02-06 22:19:00 Test Item Value Reference Range Interpretation Comments CO2 (test code = CO2) 27 24-32 [place] 559312-02-06 22:19:00 Test Item Value Reference Range Interpretation Comments Calcium Lvl (test code = Calcium Lvl) 8.8 8.5-10.5 [place] 559312-02-06 22:19:00 Test Item Value Reference Range Interpretation Comments Total Protein (test code = Total 7.2 6.4-8.4 Protein) [place] 559312-02-06 22:19:00 Test Item Value Reference Range Interpretation Comments Albumin Lvl (test code = Albumin Lvl) 2.9 3.5-5.0 [place] 559312-02-06 22:19:00 Test Item Value Reference Range Interpretation Comments ALT (test code = ALT) 20 See_Comment [Auto mated message] The system which ge nerated this result transmit kody reference range : <=65. The reference range was not used to interpr et this result as michell l/abnormal. [place] 559312-02-06 22:19:00 Test Item Value Reference Range Interpretation Comments AST (test code = AST) 17 See_Comment [Auto mated message] The system which ge nerated this result transmit kody reference range : <=37. The reference range was not used to interpr et this result as michell l/abnormal. [place] 559312-02-06 22:19:00 Test Item Value Reference Range Interpretation Comments Alk Phos (test code = Alk Phos) 135 39-136 [place] 559312-02-06 22:19:00 Test Item Value Reference Range Interpretation Comments Bili Total (test code = Bili Total) 0.2 0.2-1.3 [place] [address]-02-06 22:19:00 Test Item Value Reference Range Interpretation Comments AGAP (test code = AGAP) 6.9 10.0-20.0 [place] 559312-02-06 22:19:00 Test Item Value Reference Range Interpretation Comments B/C Ratio (test code = B/C Ratio) 9 1 6-25 [place] [id number] 22:19:00 Test Item Value Reference Range Interpretation Comments Globulin (test code = Globulin) 4.3 2.7-4.2 [facility]2022-02-06 22:19:00 Test Item Value Reference Range Interpretation Comments A/G Ratio (test code = A/G Ratio) 0.7 1 0.7-1.6 [place] [id number] 22:19:00 Test Item Value Reference Range Interpretation Comments eGFR (test code = eGFR) 66 [facility]2022-02-06 22:19:00 Test Item Value Reference Range Interpretation Comments Lipase Lvl (test code = Lipase Lvl) 24 73-393 [facility]2022-02-06 22:19:00 Test Item Value Reference Range Interpretation Comments Phosphorus (test code = Phosphorus) 2.2 2.5-4.5 [place] [id number] 22:19:00 Test Item Value Reference Range Interpretation Comments S Preg (test code = S Negative *NA*(06/24/21 Preg) 4:19 PM) [id number] 22:19:00 Test Item Value Reference Range Interpretation Comments WBC (test code = WBC) 8.9 3.7-10.4 [place] 765442-02-06 22:19:00 Test Item Value Reference Range Interpretation Comments RBC (test code = RBC) 4.24 4.20-5.40 [id number] 22:19:00 Test Item Value Reference Range Interpretation Comments Hgb (test code = Hgb) 10.8 12.0-16.0 [place] 765442-02-06 22:19:00 Test Item Value Reference Range Interpretation Comments Hct (test code = Hct) 33.8 36.0-48.0 [place] 765442-02-06 22:19:00 Test Item Value Reference Range Interpretation Comments MCV (test code = MCV) 79.6 80.0-98.0 [place] 765442-02-06 22:19:00 Test Item Value Reference Range Interpretation Comments MCH (test code = MCH) 25.4 pg 27.0-31.0 [place] 765442-02-06 22:19:00 Test Item Value Reference Range Interpretation Comments MCHC (test code = MCHC) 32.0 32.0-36.0 [place] 765442-02-06 22:19:00 Test Item Value Reference Range Interpretation Comments RDW (test code = RDW) 17.0 11.5-14.5 [place] 765442-02-06 22:19:00 Test Item Value Reference Range Interpretation Comments Platelet (test code = Platelet) 269 133-450 [place] 765442-02-06 22:19:00 Test Item Value Reference Range Interpretation Comments MPV (test code = MPV) 9.0 7.4-10.4 [place] 765442-02-06 22:19:00 Test Item Value Reference Range Interpretation Comments Segs (test code = Segs) 67.2 45.0-75.0 [place] 765442-02-06 22:19:00 Test Item Value Reference Range Interpretation Comments Lymphocytes (test code = Lymphocytes) 21.8 20.0-40.0 [place] 765442-02-06 22:19:00 Test Item Value Reference Range Interpretation Comments Monocytes (test code = Monocytes) 7.5 2.0-12.0 [place] 765442-02-06 22:19:00 Test Item Value Reference Range Interpretation Comments Eosinophils (test code = 2.4 See_Comment [A utomated message] The Eosinophils) system which ge nerated this result tra nsmitted reference range : <=4.0. The reference r belinda was not used to int erpret this result as normal/abnormal . [id number] 22:19:00 Test Item Value Reference Range Interpretation Comments Basophils (test code = 1.1 See_Comment [Aut omated message] The Basophils) system which ge nerated this result tra nsmitted reference range : <=1.0. The reference r belinda was not used to int erpret this result as normal/abnormal . [id number] 22:19:00 Test Item Value Reference Range Interpretation Comments Neutrophils # (test code = Neutrophils 6.0 1.5-8.1 #) [place] 765442-02-06 22:19:00 Test Item Value Reference Range Interpretation Comments Lymphocytes # (test code = Lymphocytes 1.9 1.0-5.5 #) [place] 765442-02-06 22:19:00 Test Item Value Reference Range Interpretation Comments Monocytes # (test code 0.7 See_Comment [Aut omated message] The = Monocytes #) system which generated this result tra nsmitted reference range : <=0.8. The reference r belinda was not used to int erpret this result as normal/abnormal . [id number] 22:19:00 Test Item Value Reference Range Interpretation Comments Eosinophils # (test code 0.2 See_Comment [A utomated message] The = Eosinophils #) system whic h generated this result tra nsmitted reference range : <=0.5. The reference r belinda was not used to int erpret this result as normal/abnormal . [id number] 22:19:00 Test Item Value Reference Range Interpretation Comments Basophils # (test code 0.1 See_Comment [Aut omated message] The = Basophils #) system which generated this result tra nsmitted reference range : <=0.2. The reference r belinda was not used to int erpret this result as normal/abnormal . [facility] [id number] 22:01:00 Test Item Value Reference Range Interpretation Comments U Amph Scr (test code Negative *NA*(06/24/21 = U Amph Scr) 4:01 PM) [facility] [id number] 22:01:00 Test Item Value Reference Range Interpretation Comments U Blanca Scr (test code Positive *ABN*(06/24/21 = U Blanca Scr) 4:01 PM) [facility] [id number] 22:01:00 Test Item Value Reference Range Interpretation Comments U Benzodiaz Scr (test Negative *NA*(06/24/21 code = U Benzodiaz Scr) 4:01 PM) [facility] [id number] 22:01:00 Test Item Value Reference Range Interpretation Comments U Cocaine Scr (test Negative *NA*(06/24/21 code = U Cocaine Scr) 4:01 PM) [facility] [id number] 22:01:00 Test Item Value Reference Range Interpretation Comments U Cannab Scr (test Negative *NA*(06/24/21 code = U Cannab Scr) 4:01 PM) [facility] [id number] 22:01:00 Test Item Value Reference Range Interpretation Comments U Opiate Scr (test Positive *ABN*(06/24/21 code = U Opiate Scr) 4:01 PM) [facility] [id number] 22:01:00 Test Item Value Reference Range Interpretation Comments U Phencyclidine Scr (test Negative *NA*(06/24/21 code = U Phencyclidine 4:01 PM) Scr) [facility] [id number] 22:01:00 Test Item Value Reference Range Interpretation Comments UDS Note (test code = See Note (06/24/21 4:01 UDS Note) PM) [facility] [id number] 22:01:00 Test Item Value Reference Range Interpretation Comments UA Color (test code = Light Yellow UA Color) *NA*(06/24/21 4:01 PM) [facility] [id number] 22:01:00 Test Item Value Reference Range Interpretation Comments UA Turbidity (test code = Clear (06/24/21 4:01 UA Turbidity) PM) [facility] [id number] 22:01:00 Test Item Value Reference Range Interpretation Comments UA Spec Grav (test code = UA Spec 1.012 1 Grav) [facility] [id number] 22:01:00 Test Item Value Reference Range Interpretation Comments UA pH (test code = UA pH) 6.0 1 5.0-8.0 [facility] [id number] 22:01:00 Test Item Value Reference Range Interpretation Comments UA Protein (test code Negative (06/24/21 4:01 = UA Protein) PM) [facility] [id number] 22:01:00 Test Item Value Reference Range Interpretation Comments UA Glucose (test code Negative *NA*(06/24/21 = UA Glucose) 4:01 PM) [facility] [id number] 22:01:00 Test Item Value Reference Range Interpretation Comments UA Ketones (test code Negative *NA*(06/24/21 = UA Ketones) 4:01 PM) [facility] [id number] 22:01:00 Test Item Value Reference Range Interpretation Comments UA Bili (test code = Negative *NA*(06/24/21 UA Bili) 4:01 PM) [facility] [id number] 22:01:00 Test Item Value Reference Range Interpretation Comments UA Blood (test code = Small *ABN*(06/24/21 UA Blood) 4:01 PM) [facility] [id number] 22:01:00 Test Item Value Reference Range Interpretation Comments UA Urobilinogen (test code = UA <=1.0 mg/dL 0.1-1.0 Urobilinogen) [facility] [id number] 22:01:00 Test Item Value Reference Range Interpretation Comments UA Nitrite (test code Negative (06/24/21 4:01 = UA Nitrite) PM) [facility] [id number] 22:01:00 Test Item Value Reference Range Interpretation Comments UA Leuk Est (test Negative (06/24/21 4:01 code = UA Leuk Est) PM) [facility] [id number] 22:01:00 Test Item Value Reference Range Interpretation Comments UA Sq Epi (test code = UA Sq Occasional /LPF Epi) [facility] [id number] 22:01:00 Test Item Value Reference Range Interpretation Comments UA WBC (test code = 1 See_Comment [Automa kody message] The UA WBC) system which ge nerated this result transmit kody reference range : <=5. The reference range was not used to interpr et this result as michell l/abnormal. [facility] [id number] 22:01:00 Test Item Value Reference Range Interpretation Comments UA RBC (test code = 2 See_Comment [Automa kody message] The UA RBC) system which ge nerated this result transmit kody reference range : <=2. The reference range was not used to interpr et this result as michell l/abnormal. [facility] [id number] 22:01:00 Test Item Value Reference Range Interpretation Comments UA Bacteria (test code = UA Occasional /HPF Bacteria) [facility] [id number] 22:01:00 Test Item Value Reference Range Interpretation Comments UA Mucus (test code = UA Mucus) Few /LPF [facility] [id number] 22:01:00 Test Item Value Reference Range Interpretation Comments U Amph Scr (test code Negative *NA*(2/6/22 = U Amph Scr) 4:01 PM) [facility] [id number] 22:01:00 Test Item Value Reference Range Interpretation Comments U Blanca Scr (test code Positive *ABN*(06/24/21 = U Blanca Scr) 4:01 PM) [facility] [id number] 22:01:00 Test Item Value Reference Range Interpretation Comments U Benzodiaz Scr (test Negative *NA*(06/24/21 code = U Benzodiaz Scr) 4:01 PM) [facility] [id number] 22:01:00 Test Item Value Reference Range Interpretation Comments U Cocaine Scr (test Negative *NA*(06/24/21 code = U Cocaine Scr) 4:01 PM) [facility] [id number] 22:01:00 Test Item Value Reference Range Interpretation Comments U Cannab Scr (test Negative *NA*(06/24/21 code = U Cannab Scr) 4:01 PM) [facility] [id number] 22:01:00 Test Item Value Reference Range Interpretation Comments U Opiate Scr (test Positive *ABN*(06/24/21 code = U Opiate Scr) 4:01 PM) [facility] [id number] 22:01:00 Test Item Value Reference Range Interpretation Comments U Phencyclidine Scr (test Negative *NA*(06/24/21 code = U Phencyclidine 4:01 PM) Scr) [facility] [id number] 22:01:00 Test Item Value Reference Range Interpretation Comments UDS Note (test code = See Note (06/24/21 4:01 UDS Note) PM) [facility] [id number] 22:01:00 Test Item Value Reference Range Interpretation Comments UA Color (test code = Light Yellow UA Color) *NA*(06/24/21 4:01 PM) [facility] [id number] 22:01:00 Test Item Value Reference Range Interpretation Comments UA Turbidity (test code = Clear (06/24/21 4:01 UA Turbidity) PM) [facility] [id number] 22:01:00 Test Item Value Reference Range Interpretation Comments UA Spec Grav (test code = UA Spec 1.012 1 Grav) [facility] [id number] 22:01:00 Test Item Value Reference Range Interpretation Comments UA pH (test code = UA pH) 6.0 1 5.0-8.0 [facility] AND [id number] 22:01:00 Test Item Value Reference Range Interpretation Comments UA Protein (test code Negative (06/24/21 4:01 = UA Protein) PM) [facility] AND [id number] 22:01:00 Test Item Value Reference Range Interpretation Comments UA Glucose (test code Negative *NA*(06/24/21 = UA Glucose) 4:01 PM) [facility] AND [id number] 22:01:00 Test Item Value Reference Range Interpretation Comments UA Ketones (test code Negative *NA*(06/24/21 = UA Ketones) 4:01 PM) [facility] AND [id number] 22:01:00 Test Item Value Reference Range Interpretation Comments UA Bili (test code = Negative *NA*(06/24/21 UA Bili) 4:01 PM) [facility] AND [id number] 22:01:00 Test Item Value Reference Range Interpretation Comments UA Blood (test code = Small *ABN*(06/24/21 UA Blood) 4:01 PM) [facility] AND [id number] 22:01:00 Test Item Value Reference Range Interpretation Comments UA Urobilinogen (test code = UA <=1.0 mg/dL 0.1-1.0 Urobilinogen) [facility] AND [id number] 22:01:00 Test Item Value Reference Range Interpretation Comments UA Nitrite (test code Negative (06/24/21 4:01 = UA Nitrite) PM) [facility] AND [id number] 22:01:00 Test Item Value Reference Range Interpretation Comments UA Leuk Est (test Negative (06/24/21 4:01 code = UA Leuk Est) PM) [facility] AND [id number] 22:01:00 Test Item Value Reference Range Interpretation Comments UA Sq Epi (test code = UA Sq Occasional /LPF Epi) [facility] AND [id number] 22:01:00 Test Item Value Reference Range Interpretation Comments UA WBC (test code = 1 See_Comment [Automa kody message] The UA WBC) system which ge nerated this result transmit kody reference range : <=5. The reference range was not used to interpr et this result as michell l/abnormal. [facility] AND [id number] 22:01:00 Test Item Value Reference Range Interpretation Comments UA RBC (test code = 2 See_Comment [Automa kody message] The UA RBC) system which ge nerated this result transmit kody reference range : <=2. The reference range was not used to interpr et this result as michell l/abnormal. [facility] AND [id number] 22:01:00 Test Item Value Reference Range Interpretation Comments UA Bacteria (test code = UA Occasional /HPF Bacteria) [facility] AND [id number] 22:01:00 Test Item Value Reference Range Interpretation Comments UA Mucus (test code = UA Mucus) Few /LPF [facility]2022-02-06 20:24:24 Test Item Value Reference Range Interpretation Comments Urine culture (test SEE COMMENT Bacteriu sandy screen code = 6475864) negative. [facility]2022-02-06 20:24:24 Test Item Value Reference Range Interpretation Comments Urine culture (test SEE COMMENT Bacteriu sandy screen code = 0714449) negative. [facility]2022-02-06 20:24:24 Test Item Value Reference Range Interpretation Comments Urine culture (test SEE COMMENT Bacteriu sandy screen code = 5948491) negative. [facility]2022-02-06 20:24:24 Test Item Value Reference Range Interpretation Comments Urine culture (test SEE COMMENT Bacteriu sandy screen code = 0641707) negative. [facility]2022-02-06 20:24:24 Test Item Value Reference Range Interpretation Comments Urine culture (test SEE COMMENT Bacteriu sandy screen code = 3314828) negative. [facility], Urinalysis Rflx Cult/[id number] 20:05:00 Test Item Value Reference Range Interpretation Comments Color,Urine (test code = Yellow Yellow UCOL) Clarity,Urine (test code = Clear Clear UCLAR) PH,Urine (test code = 6.5 5.5-8.5 UPH.XX) Specific [place],Urine 1.025 1.005-1.030 N (test code = USG) Blood,Urine (test code = Small cells/uL Negative A UBLD) Protein,Urine (test code = Negative mg/dL Negative UPRO) Glucose,Urine (UA) (test Negative mg/dL Negative code = UGLU) Ketones,Urine (test code = Negative mg/dL Negative UKET) Nitrate,Urine (test code = Negative Negative UNIT) Bilirubin,Urine (test code Negative mg/dL Negative = UBIL) Urobilinogen,Urine (test 0.2 mg/dL Negative code = UURO) Leukocyte Esterase,Urine Negative cells/uL Negative (test code = ULEU) Urine [id number] 20:05:00 Test Item Value Reference Range Interpretation Comments RBC,Urine (test code = URBC.XX) 4-5 /HPF None Seen WBC,Urine (test code = UWBC.XX) 3-5 /HPF None Seen Squamous Epithelial Cell,Urine 11-19 /HPF None Seen A (test code = USQEPI.XX) Lactic [id number] 19:37:00 Test Item Value Reference Range Interpretation Comments Lactic Acid (test code = LACTIC) 1.4 mmol/L 0.5-2.0 N Comprehensive Metabolic [id number] 19:37:00 Test Item Value Reference Range Interpretation Comments SODIUM (test code = NA) 142.0 mmol/L 136.0-145.0 N Potassium,K (test code = K) 5.2 mmol/L 3.0-5.1 H Chloride (test code = CL) 109 mmol/L 98-107 H Carbon Dioxide (test code = CO2) 25 mmol/L 20-31 N Anion Gap (test code = GAP) 8 mmol/L 5-15 N Blood Urea Nitrogen (test code = 11 mg/dL 9-23 N BUN) Creatinine (test code = CREATT) 1.16 mg/dL 0.55-1.02 H Creatinine Clr Calc Pharmacy 74.25 mL/min (test code = CRCLPHA) Estimated GFR ( Najma > 60 mL/min/1.73m2 (test code = EGFRAA) Estimated GFR (Non Afr Najma 57 mL/min/1.73m2 (test code = EGFRNAA) BUN/Creatinine Ratio (test code 9 ratio 10-20 L = BCRATIO) Glucose (test code = GLU) 94 mg/dL 74-106 N Osmolality,Calculated (test code 292.9 = OSMOC) Calcium (test code = CA) 9.5 mg/dL 8.3-10.6 N Bilirubin,Total (test code = 0.2 mg/dL 0.2-1.1 N BILIT) Aspartate Amino Transferase 45 U/L 0-34 H (test code = AST) Alanine Aminotransferase (test 19 U/L 10-49 N code = ALT) Total Protein (test code = TP) 7.7 g/dL 5.7-8.2 N Albumin Level (test code = ALB) 4.6 g/dL 3.2-4.8 N Globulin (test code = GLOB) 3.1 mg/dL 2.3-3.5 N Albumin/Globulin Ratio (test 1.5 ratio 0.8-2.0 N code = AGRATIO) Alkaline Phosphatase (test code 158 U/L 46-116 H = ALP) [id number] 19:37:00 Test Item Value Reference Range Interpretation Comments Lipase (test code = LIP) 25 U/L 12-53 N Complete Blood Count Auto [id number] 19:37:00 Test Item Value Reference Range Interpretation Comments White Blood Count (test code = 9.4 x10 3/uL 4.4-10.5 N WBCT) Red Blood Count (test code = 4.30 x10 6/uL 3.75-5.20 N RBC) Hemoglobin (test code = HGBT) 11.2 g/dL 12.2-14.8 L Hematocrit (test code = HCTT) 37.2 % 36.5-44.4 N Mean Corpuscular Volume (test 86.50 fL 80.00-100.00 N code = MCV) Mean Corpuscular Hemoglobin 26.0 pg 27.0-32.5 L (test code = MCH) Mean Corpuscular HGB Conc 30.10 g/dL 32.00-37.50 L (test code = MCHC) RDW Coefficient of Variation 16.7 % 11.5-14.5 H (test code = RDWCV) Platelet Count (test code = 302.0 x10 3/uL 140.0-440.0 N PLTT) Mean Platelet Volume (test 11.9 fL code = MPV) Immature Granulocytes % (Auto) 0.2 % 0.0-5.0 N (test code = IMMGRAN%) Neutrophils % (Auto) (test 68.7 % 36.0-70.0 N code = NE%) Lymphocytes % (Auto) (test 21.3 % 12.0-44.0 N code = LY%) Monocytes % (Auto) (test code 6.7 % 0.0-11.0 N = MO%) Eosinophils % (Auto) (test 2.6 % 0.0-7.0 N code = EO%) Basophils % (Auto) (test code 0.5 % 0.0-2.0 N = BA%) Immature Granulocytes # (Auto) 0.02 x10 3/uL (test code = IMMGRAN#) Neutrophils # (Auto) (test 6.5 x10 3/uL 1.6-7.4 N code = NE#) Lymphocytes # (Auto) (test 2.00 x10 3/uL 0.50-4.60 N code = LY#) Monocytes # (Auto) (test code 0.63 x10 3/uL 0.00-1.20 N = MO#) Eosinophils # (Auto) (test 0.24 x10 3/uL 0.00-0.74 N code = EO#) Basophils # (Auto) (test code 0.05 x10 3/uL 0.00-0.21 N = BA#) nRBC Abs (test code = NRBCA) 0 nRBC Pct (test code = NRBCP) 0 % DRUG [id number] 01:42:00 Test Item Value Reference Range Interpretation Comments U Amph Scr (test code Negative *NA*(06/21/21 = U Amph Scr) 7:42 PM) [facility] [id number] 01:42:00 Test Item Value Reference Range Interpretation Comments U Blanca Scr (test code Positive *ABN*(06/21/21 = U Blanca Scr) 7:42 PM) [facility] [id number] 01:42:00 Test Item Value Reference Range Interpretation Comments U Benzodiaz Scr (test Negative *NA*(06/21/21 code = U Benzodiaz Scr) 7:42 PM) [facility] [id number] 01:42:00 Test Item Value Reference Range Interpretation Comments U Cocaine Scr (test Negative *NA*(06/21/21 code = U Cocaine Scr) 7:42 PM) [facility] [id number] 01:42:00 Test Item Value Reference Range Interpretation Comments U Cannab Scr (test Negative *NA*(06/21/21 code = U Cannab Scr) 7:42 PM) [facility] [id number] 01:42:00 Test Item Value Reference Range Interpretation Comments U Opiate Scr (test Positive *ABN*(06/21/21 code = U Opiate Scr) 7:42 PM) [facility] [id number] 01:42:00 Test Item Value Reference Range Interpretation Comments U Phencyclidine Scr (test Negative *NA*(06/21/21 code = U Phencyclidine 7:42 PM) Scr) [facility] [id number] 01:42:00 Test Item Value Reference Range Interpretation Comments UDS Note (test code = See Note (06/21/21 7:42 UDS Note) PM) [facility] [id number] 01:42:00 Test Item Value Reference Range Interpretation Comments UA Turbidity (test code = Clear (06/21/21 7:42 UA Turbidity) PM) [facility] [id number] 01:42:00 Test Item Value Reference Range Interpretation Comments UA Spec Grav (test code = UA Spec 1.016 1 Grav) [facility] [id number] 01:42:00 Test Item Value Reference Range Interpretation Comments UA pH (test code = UA pH) 6.0 1 5.0-8.0 [facility] [id number] 01:42:00 Test Item Value Reference Range Interpretation Comments UA Protein (test code = UA Negative mg/dL Protein) [facility] [id number] 01:42:00 Test Item Value Reference Range Interpretation Comments UA Glucose (test code = UA Negative mg/dL Glucose) [facility] [id number] 01:42:00 Test Item Value Reference Range Interpretation Comments UA Ketones (test code = UA Negative mg/dL Ketones) [facility] [id number] 01:42:00 Test Item Value Reference Range Interpretation Comments UA Bili (test code = Negative *NA*(06/21/21 UA Bili) 7:42 PM) [facility] [id number] 01:42:00 Test Item Value Reference Range Interpretation Comments UA Blood (test code = Small *ABN*(06/21/21 UA Blood) 7:42 PM) [facility] [id number] 01:42:00 Test Item Value Reference Range Interpretation Comments UA Nitrite (test code Negative (06/21/21 7:42 = UA Nitrite) PM) [facility] [id number] 01:42:00 Test Item Value Reference Range Interpretation Comments UA Leuk Est (test Negative (06/21/21 7:42 code = UA Leuk Est) PM) [facility] [id number] 01:42:00 Test Item Value Reference Range Interpretation Comments UA Sq Epi (test code = UA Sq Epi) Few /LPF [facility] [id number] 01:42:00 Test Item Value Reference Range Interpretation Comments UA WBC (test code = 2 See_Comment [Automa kody message] The UA WBC) system which ge nerated this result transmit kody reference range : <=5. The reference range was not used to interpr et this result as michell l/abnormal. [facility] [id number] 01:42:00 Test Item Value Reference Range Interpretation Comments UA RBC (test code = no gt See_Comment [Automa kody message] The UA RBC) system which ge nerated this result transmit kody reference range : <=2. The reference range was not used to interpr et this result as michell l/abnormal. [facility] [id number] 01:42:00 Test Item Value Reference Range Interpretation Comments UA Bacteria (test code = UA Occasional /HPF Bacteria) [facility] [id number] 01:42:00 Test Item Value Reference Range Interpretation Comments UA Color (test code = UA Color) COLORLESS [facility] [id number] 01:42:00 Test Item Value Reference Range Interpretation Comments UA Urobilinogen (test code = UA <=1.0 mg/dL 0.1-1.0 Urobilinogen) [facility] [id number] 01:42:00 Test Item Value Reference Range Interpretation Comments U Amph Scr (test code Negative *NA*(06/21/21 = U Amph Scr) 7:42 PM) [facility] [id number] 01:42:00 Test Item Value Reference Range Interpretation Comments U Blanca Scr (test code Positive *ABN*(06/21/21 = U Blanca Scr) 7:42 PM) [facility] [id number] 01:42:00 Test Item Value Reference Range Interpretation Comments U Benzodiaz Scr (test Negative *NA*(06/21/21 code = U Benzodiaz Scr) 7:42 PM) [facility] [id number] 01:42:00 Test Item Value Reference Range Interpretation Comments U Cocaine Scr (test Negative *NA*(06/21/21 code = U Cocaine Scr) 7:42 PM) [facility] [id number] 01:42:00 Test Item Value Reference Range Interpretation Comments U Cannab Scr (test Negative *NA*(06/21/21 code = U Cannab Scr) 7:42 PM) [facility] [id number] 01:42:00 Test Item Value Reference Range Interpretation Comments U Opiate Scr (test Positive *ABN*(06/21/21 code = U Opiate Scr) 7:42 PM) [facility] [id number] 01:42:00 Test Item Value Reference Range Interpretation Comments U Phencyclidine Scr (test Negative *NA*(06/21/21 code = U Phencyclidine 7:42 PM) Scr) [facility] [id number] 01:42:00 Test Item Value Reference Range Interpretation Comments UDS Note (test code = See Note (06/21/21 7:42 UDS Note) PM) [facility] [id number] 01:42:00 Test Item Value Reference Range Interpretation Comments UA Turbidity (test code = Clear (06/21/21 7:42 UA Turbidity) PM) [facility] [id number] 01:42:00 Test Item Value Reference Range Interpretation Comments UA Spec Grav (test code = UA Spec 1.016 1 Grav) [facility] [id number] 01:42:00 Test Item Value Reference Range Interpretation Comments UA pH (test code = UA pH) 6.0 1 5.0-8.0 [facility] [id number] 01:42:00 Test Item Value Reference Range Interpretation Comments UA Protein (test code = UA Negative mg/dL Protein) [facility] AND [id number] 01:42:00 Test Item Value Reference Range Interpretation Comments UA Glucose (test code = UA Negative mg/dL Glucose) [facility] AND [id number] 01:42:00 Test Item Value Reference Range Interpretation Comments UA Ketones (test code = UA Negative mg/dL Ketones) [facility] AND [id number] 01:42:00 Test Item Value Reference Range Interpretation Comments UA Bili (test code = Negative *NA*(06/21/21 UA Bili) 7:42 PM) [facility] AND [id number] 01:42:00 Test Item Value Reference Range Interpretation Comments UA Blood (test code = Small *ABN*(06/21/21 UA Blood) 7:42 PM) [facility] AND [id number] 01:42:00 Test Item Value Reference Range Interpretation Comments UA Nitrite (test code Negative (06/21/21 7:42 = UA Nitrite) PM) [facility] AND [id number] 01:42:00 Test Item Value Reference Range Interpretation Comments UA Leuk Est (test Negative (06/21/21 7:42 code = UA Leuk Est) PM) [facility] AND [id number] 01:42:00 Test Item Value Reference Range Interpretation Comments UA Sq Epi (test code = UA Sq Epi) Few /LPF [facility] AND [id number] 01:42:00 Test Item Value Reference Range Interpretation Comments UA WBC (test code = 2 See_Comment [Automa kody message] The UA WBC) system which ge nerated this result transmit kody reference range : <=5. The reference range was not used to interpr et this result as michell l/abnormal. [facility] AND [id number] 01:42:00 Test Item Value Reference Range Interpretation Comments UA RBC (test code = no gt See_Comment [Automa kody message] The UA RBC) system which ge nerated this result transmit kody reference range : <=2. The reference range was not used to interpr et this result as michell l/abnormal. [facility] AND [id number] 01:42:00 Test Item Value Reference Range Interpretation Comments UA Bacteria (test code = UA Occasional /HPF Bacteria) [facility] AND [id number] 01:42:00 Test Item Value Reference Range Interpretation Comments UA Color (test code = UA Color) COLORLESS [facility] AND [id number] 01:42:00 Test Item Value Reference Range Interpretation Comments UA Urobilinogen (test code = UA <=1.0 mg/dL 0.1-1.0 Urobilinogen) [facility]2022-02-04 01:01:00 Test Item Value Reference Range Interpretation Comments Glucose Lvl (test code = Glucose Lvl) 91 70-99 [facility]2022-02-04 01:01:00 Test Item Value Reference Range Interpretation Comments BUN (test code = BUN) 14 7-22 [facility]2022-02-04 01:01:00 Test Item Value Reference Range Interpretation Comments Creatinine Lvl (test code = Creatinine 1.17 0.50-1.40 Lvl) [facility]2022-02-04 01:01:00 Test Item Value Reference Range Interpretation Comments Sodium Lvl (test code = Sodium Lvl) 141 135-145 [facility]2022-02-04 01:01:00 Test Item Value Reference Range Interpretation Comments Potassium Lvl (test code = Potassium 4.1 3.5-5.1 Lvl) [facility]2022-02-04 01:01:00 Test Item Value Reference Range Interpretation Comments Chloride Lvl (test code = Chloride Lvl) 112 95-109 [facility]2022-02-04 01:01:00 Test Item Value Reference Range Interpretation Comments CO2 (test code = CO2) 24 24-32 [facility]2022-02-04 01:01:00 Test Item Value Reference Range Interpretation Comments Calcium Lvl (test code = Calcium Lvl) 9.0 8.5-10.5 [place] [id number] 01:01:00 Test Item Value Reference Range Interpretation Comments Total Protein (test code = Total 7.7 6.4-8.4 Protein) [facility]2022-02-04 01:01:00 Test Item Value Reference Range Interpretation Comments Albumin Lvl (test code = Albumin Lvl) 3.2 3.5-5.0 [facility] [id number] 01:01:00 Test Item Value Reference Range Interpretation Comments ALT (test code = ALT) 18 See_Comment [Auto mated message] The system which ge nerated this result transmit kody reference range : <=65. The reference range was not used to interpr et this result as michell l/abnormal. [facility] [id number] 01:01:00 Test Item Value Reference Range Interpretation Comments AST (test code = AST) 20 See_Comment [Auto mated message] The system which ge nerated this result transmit kody reference range : <=37. The reference range was not used to interpr et this result as michell l/abnormal. [facility] [id number] 01:01:00 Test Item Value Reference Range Interpretation Comments Alk Phos (test code = Alk Phos) 138 39-136 [facility] [id number] 01:01:00 Test Item Value Reference Range Interpretation Comments Bili Total (test code = Bili Total) 0.1 0.2-1.3 [facility] [id number] 01:01:00 Test Item Value Reference Range Interpretation Comments AGAP (test code = AGAP) 9.1 10.0-20.0 [facility] [id number] 01:01:00 Test Item Value Reference Range Interpretation Comments B/C Ratio (test code = B/C Ratio) 12 1 6-25 [facility] [id number] 01:01:00 Test Item Value Reference Range Interpretation Comments Globulin (test code = Globulin) 4.5 2.7-4.2 [facility] [id number] 01:01:00 Test Item Value Reference Range Interpretation Comments A/G Ratio (test code = A/G Ratio) 0.7 1 0.7-1.6 [facility] [id number] 01:01:00 Test Item Value Reference Range Interpretation Comments eGFR (test code = eGFR) 56 [facility] [id number] 01:01:00 Test Item Value Reference Range Interpretation Comments Lipase Lvl (test code = Lipase Lvl) 53 73-393 [place] [id number] 01:01:00 Test Item Value Reference Range Interpretation Comments S Preg (test code = S Negative *NA*(06/21/21 Preg) 7:01 PM) [facility]2022-02-04 01:01:00 Test Item Value Reference Range Interpretation Comments Glucose Lvl (test code = Glucose Lvl) 91 70-99 [facility]2022-02-04 01:01:00 Test Item Value Reference Range Interpretation Comments BUN (test code = BUN) 14 - [facility]2022-02-04 01:01:00 Test Item Value Reference Range Interpretation Comments Creatinine Lvl (test code = Creatinine 1.17 0.50-1.40 Lvl) [facility]UOHZXAFP6063[facility] 01:01:00 Test Item Value Reference Range Interpretation Comments WBC (test code = WBC) 10.9 3.7-10.4 [facility]2022-02-04 01:01:00 Test Item Value Reference Range Interpretation Comments Sodium Lvl (test code = Sodium Lvl) 141 135-145 [facility]2022-02-04 01:01:00 Test Item Value Reference Range Interpretation Comments Potassium Lvl (test code = Potassium 4.1 3.5-5.1 Lvl) [facility]2022-02-04 01:01:00 Test Item Value Reference Range Interpretation Comments Chloride Lvl (test code = Chloride Lvl) 112 95-109 [facility]2022-02-04 01:01:00 Test Item Value Reference Range Interpretation Comments CO2 (test code = CO2) 24 24-32 [facility]2022-02-04 01:01:00 Test Item Value Reference Range Interpretation Comments Calcium Lvl (test code = Calcium Lvl) 9.0 8.5-10.5 [place] 559312-02-04 01:01:00 Test Item Value Reference Range Interpretation Comments Total Protein (test code = Total 7.7 6.4-8.4 Protein) [facility]2022-02-04 01:01:00 Test Item Value Reference Range Interpretation Comments Albumin Lvl (test code = Albumin Lvl) 3.2 3.5-5.0 [place] 559312-02-04 01:01:00 Test Item Value Reference Range Interpretation Comments ALT (test code = ALT) 18 See_Comment [Auto mated message] The system which ge nerated this result transmit kody reference range : <=65. The reference range was not used to interpr et this result as michell l/abnormal. [facility] [id number] 01:01:00 Test Item Value Reference Range Interpretation Comments AST (test code = AST) 20 See_Comment [Auto mated message] The system which ge nerated this result transmit kody reference range : <=37. The reference range was not used to interpr et this result as michell l/abnormal. [facility] [id number] 01:01:00 Test Item Value Reference Range Interpretation Comments Alk Phos (test code = Alk Phos) 138 39-136 [facility] [id number] 01:01:00 Test Item Value Reference Range Interpretation Comments Bili Total (test code = Bili Total) 0.1 0.2-1.3 [facility] [id number] 01:01:00 Test Item Value Reference Range Interpretation Comments AGAP (test code = AGAP) 9.1 10.0-20.0 [facility] [id number] 01:01:00 Test Item Value Reference Range Interpretation Comments B/C Ratio (test code = B/C Ratio) 12 1 6-25 [facility] [id number] 01:01:00 Test Item Value Reference Range Interpretation Comments Globulin (test code = Globulin) 4.5 2.7-4.2 [facility] [id number] 01:01:00 Test Item Value Reference Range Interpretation Comments A/G Ratio (test code = A/G Ratio) 0.7 1 0.7-1.6 [facility] [id number] 01:01:00 Test Item Value Reference Range Interpretation Comments eGFR (test code = eGFR) 56 [facility] [id number] 01:01:00 Test Item Value Reference Range Interpretation Comments Lipase Lvl (test code = Lipase Lvl) 53 73-393 [facility]JKVD[facility]KEFFV8840-[facility]-22 01:01:00 Test Item Value Reference Range Interpretation Comments S Preg (test code = S Negative *NA*(06/21/21 Preg) 7:01 PM) [facility]bergDdifkylDVQIFKFPSA4774-49-92 01:01:00 Test Item Value Reference Range Interpretation Comments WBC (test code = WBC) 10.9 3.7-10.4 [facility]bergKcjdahbDHSDPXXNPU9033-76-63 01:01:00 Test Item Value Reference Range Interpretation Comments RBC (test code = RBC) 4.18 4.20-5.40 [facility]bergJuzhmwiTKEZYPTQHJ1739-54-86 01:01:00 Test Item Value Reference Range Interpretation Comments Hgb (test code = Hgb) 10.6 12.0-16.0 [facility]bergXypwktbQNJBZFWZPT6647-77-87 01:01:00 Test Item Value Reference Range Interpretation Comments Hct (test code = Hct) 33.9 36.0-48.0 [facility]bergUlqmsczNYLIPSVRNC3756-83-36 01:01:00 Test Item Value Reference Range Interpretation Comments MCV (test code = MCV) 80.9 80.0-98.0 [facility]bergNsdpwdaXPETOPCKKN6504-41-75 01:01:00 Test Item Value Reference Range Interpretation Comments MCH (test code = MCH) 25.4 pg 27.0-31.0 [facility] KlebergCygigsqWYXDOZSTGW1301-80-08 01:01:00 Test Item Value Reference Range Interpretation Comments MCHC (test code = MCHC) 31.4 32.0-36.0 [facility]bergMicmuplEQPPMGOYHL1443-95-17 01:01:00 Test Item Value Reference Range Interpretation Comments RDW (test code = RDW) 17.1 11.5-14.5 [facility] KlebergYucpcupYUZPNOFVTZ2048-28-79 01:01:00 Test Item Value Reference Range Interpretation Comments Platelet (test code = Platelet) 264 133-450 [facility] KlebergKexhbuoBQLPBHXBLF1765-25-63 01:01:00 Test Item Value Reference Range Interpretation Comments MPV (test code = MPV) 9.2 7.4-10.4 [facility] KlebergKawkofvOHHOKHMPUD6709-44-03 01:01:00 Test Item Value Reference Range Interpretation Comments Segs (test code = Segs) 63.9 45.0-75.0 [facility] KlebergLahmchcGKXBOLPECP2790-92-80 01:01:00 Test Item Value Reference Range Interpretation Comments Lymphocytes (test code = Lymphocytes) 23.6 20.0-40.0 [facility] KlebergFpfauknFXROUKDOFD5755-47-78 01:01:00 Test Item Value Reference Range Interpretation Comments Monocytes (test code = Monocytes) 7.8 2.0-12.0 [place] 765442-02-04 01:01:00 Test Item Value Reference Range Interpretation Comments Eosinophils (test code = 3.4 See_Comment [A utomated message] The Eosinophils) system which ge nerated this result tra nsmitted reference range : <=4.0. The reference r belinda was not used to int erpret this result as normal/abnormal . [place] [address]-02-04 01:01:00 Test Item Value Reference Range Interpretation Comments Basophils (test code = 1.3 See_Comment [Aut omated message] The Basophils) system which ge nerated this result tra nsmitted reference range : <=1.0. The reference r belinda was not used to int erpret this result as normal/abnormal . [place] 765442-02-04 01:01:00 Test Item Value Reference Range Interpretation Comments Neutrophils # (test code = Neutrophils 7.0 1.5-8.1 #) [facility] KlebergVqkjfbvYCPJWQLJWS8983-31-99 01:01:00 Test Item Value Reference Range Interpretation Comments Lymphocytes # (test code = Lymphocytes 2.6 1.0-5.5 #) [place] 765442-02-04 01:01:00 Test Item Value Reference Range Interpretation Comments Monocytes # (test code 0.8 See_Comment [Aut omated message] The = Monocytes #) system which generated this result tra nsmitted reference range : <=0.8. The reference r belinda was not used to int erpret this result as normal/abnormal . [place] 765442-02-04 01:01:00 Test Item Value Reference Range Interpretation Comments Eosinophils # (test code 0.4 See_Comment [A utomated message] The = Eosinophils #) system whic h generated this result tra nsmitted reference range : <=0.5. The reference r belinda was not used to int erpret this result as normal/abnormal . [place] [address]-02-04 01:01:00 Test Item Value Reference Range Interpretation Comments Basophils # (test code 0.1 See_Comment [Aut omated message] The = Basophils #) system which generated this result tra nsmitted reference range : <=0.2. The reference r belinda was not used to int erpret this result as normal/abnormal . [facility]bergXzqvjrsPFPUISLTJR2548-35-46 01:01:00 Test Item Value Reference Range Interpretation Comments RBC (test code = RBC) 4.18 4.20-5.40 [place] 765442-02-04 01:01:00 Test Item Value Reference Range Interpretation Comments Hgb (test code = Hgb) 10.6 12.0-16.0 [place] 765442-02-04 01:01:00 Test Item Value Reference Range Interpretation Comments Hct (test code = Hct) 33.9 36.0-48.0 [facility] KlebergLkjkbahVQQNRNTBNO1463-11-07 01:01:00 Test Item Value Reference Range Interpretation Comments MCV (test code = MCV) 80.9 80.0-98.0 [place] 765442-02-04 01:01:00 Test Item Value Reference Range Interpretation Comments MCH (test code = MCH) 25.4 pg 27.0-31.0 [facility] KlebergVfuyonpHLDSZBVVJI6615-43-15 01:01:00 Test Item Value Reference Range Interpretation Comments MCHC (test code = MCHC) 31.4 32.0-36.0 [facility] KlebergLanngsxLRVTVYMFZH7756-04-77 01:01:00 Test Item Value Reference Range Interpretation Comments RDW (test code = RDW) 17.1 11.5-14.5 [facility] KlebergRixslesNOQDVIQEPW5799-25-28 01:01:00 Test Item Value Reference Range Interpretation Comments Platelet (test code = Platelet) 264 133-450 [facility] KlebergRbgsuuxVCGJUOHEHE3575-98-74 01:01:00 Test Item Value Reference Range Interpretation Comments MPV (test code = MPV) 9.2 7.4-10.4 [facility] KlebergGedgicgKBPQDYVGKI6211-42-33 01:01:00 Test Item Value Reference Range Interpretation Comments Segs (test code = Segs) 63.9 45.0-75.0 [facility] KlebergXqkklegYVXUJWPKKD5650-86-09 01:01:00 Test Item Value Reference Range Interpretation Comments Lymphocytes (test code = Lymphocytes) 23.6 20.0-40.0 [place] 765442-02-04 01:01:00 Test Item Value Reference Range Interpretation Comments Monocytes (test code = Monocytes) 7.8 2.0-12.0 [facility] KlebergWhcewdtSELGCYOYCT6474-78-28 01:01:00 Test Item Value Reference Range Interpretation Comments Eosinophils (test code = 3.4 See_Comment [A utomated message] The Eosinophils) system which ge nerated this result tra nsmitted reference range : <=4.0. The reference r belinda was not used to int erpret this result as normal/abnormal . [place] 765442-02-04 01:01:00 Test Item Value Reference Range Interpretation Comments Basophils (test code = 1.3 See_Comment [Aut omated message] The Basophils) system which ge nerated this result tra nsmitted reference range : <=1.0. The reference r belinda was not used to int erpret this result as normal/abnormal . [place] 765442-02-04 01:01:00 Test Item Value Reference Range Interpretation Comments Neutrophils # (test code = Neutrophils 7.0 1.5-8.1 #) [place] 765442-02-04 01:01:00 Test Item Value Reference Range Interpretation Comments Lymphocytes # (test code = Lymphocytes 2.6 1.0-5.5 #) [place] 765442-02-04 01:01:00 Test Item Value Reference Range Interpretation Comments Monocytes # (test code 0.8 See_Comment [Aut omated message] The = Monocytes #) system which generated this result tra nsmitted reference range : <=0.8. The reference r belinda was not used to int erpret this result as normal/abnormal . [place] 765442-02-04 01:01:00 Test Item Value Reference Range Interpretation Comments Eosinophils # (test code 0.4 See_Comment [A utomated message] The = Eosinophils #) system whic h generated this result tra nsmitted reference range : <=0.5. The reference r belinda was not used to int erpret this result as normal/abnormal . [place] 765442-02-04 01:01:00 Test Item Value Reference Range Interpretation Comments Basophils # (test code 0.1 See_Comment [Aut omated message] The = Basophils #) system which generated this result tra nsmitted reference range : <=0.2. The reference r belinda was not used to int erpret this result as normal/abnormal . [facility] SINGLE (PORTABLE)2021-06-19 16:02:00 [facility] CENTERName: LIANA ASHBY : 1975 Sex: F [place] [address] Patient Name: LIANA ASHBY MR #: [id number] : 1975 Age/Sex: 46/F Req #: [id number] Adm Physician: Ordered by: PELON MAY HOOP PUNCHER Report #: [id number] Location: ER Room/Bed: __ Procedure: [id number] DX/CHEST SINGLE (PORTABLE) Exam Date: 06/19/21 Exam Time: 1534 REPORT STATUS: Signed EXAMINATION: CHEST SINGLE (PORTABLE) INDICATION: epigastric pain COMPARISON: May 24, 2021 FINDINGS: LINES/TUBES:None LUNGS:Mild changes of pulmonary vascular congestion noted. Ill- defined haziness in left lower lung could be due to atelectasis or artifactual. PLEURA:No pleural effusion or pneumothorax. MEDIASTINUM:The cardiomediastinal silhouette appears normal in size and shape. BONES/SOFT TISSUES:No acute osseous injury. ABDOMEN:No free air under the diaphragm. IMPRESSION: Mild changes of pul monary vascular congestion noted. Ill-defined haziness in left lower lung could be due to atelectasis or artifactual. Signed by: Neel Lawton on 06/19/2021 4:02 PM Dictated By: NEEL LAWTON MD 1605 Transcribed By: PSCRIBE on 06/19/21 1602 COPY TO: PELON VASQUEZ NPBlood woeldzw6725-18-33 15:55:00 Test Item Value Reference Range Interpretation Comments Blood Culture (test NO GROWTH AFTER 5 code = 70906416) DAYS, FINAL REPORT [facility] National Provider IdentifierProthrombin time (PT) in platelet poor plasma by coagulation [id number] 15:50:00 Test Item Value Reference Range Interpretation Comments Prothrombin Time (test code = 5902-2) 12.5 11.9-14.5 [facility] National Provider IdentifierINR in Platelet poor plasma by Coagulation dyvyx0777-32-98 15:50:00 Test Item Value Reference Range Interpretation Comments Prothromb Time International Ratio 0.87 (test code = 6301-6) [facility] National Provider IdentifierActivated partial thromboplastin time (aPTT) in platelet poor plasma by coagulation [id number] 15:50:00 Test Item Value Reference Range Interpretation Comments Activated Partial Thromboplast Time 28.1 23.8-35.5 (test code = 08974-4) [facility] National Provider IdentifierUrine color pulaihrwnmoyx4769-82-89 15:50:00 Test Item Value Reference Range Interpretation Comments Urine Color (test code = 5778-6) YELLOW YELLOW [facility] National Provider IdentifierUrine bwwedph4140-58-25 15:50:00 Test Item Value Reference Range Interpretation Comments Urine Clarity (test code = 11069-5) SL CLOUDY CLEAR [facility] National Provider IdentifierSpecific gravity of Urine by Test strip 2021-06-19 15:50:00 Test Item Value Reference Range Interpretation Comments Urine Specific Ros[place] (test code = 1.020 1.010-1.025 5811-5) [facility] National Provider IdentifierUrine pH measurement by automated test strip 2021-06-19 15:50:00 Test Item Value Reference Range Interpretation Comments Urine pH (test code = 21800-1) 7 5-7 [facility] National Provider IdentifierUrine leukocyte esterase detection by automated test [id number] 15:50:00 Test Item Value Reference Range Interpretation Comments Urine Leukocyte Esterase (test code NEGATIVE NEGATIVE = 01650-2) [facility] Provider IdentifierUrine nitrite detection by automated test strip 2021-06-19 15:50:00 Test Item Value Reference Range Interpretation Comments Urine Nitrite (test code = ) NEGATIVE NEGATIVE [facility] National Provider IdentifierUrine protein detection by automated test strip 2021-06-19 15:50:00 Test Item Value Reference Range Interpretation Comments Urine Protein (test code = 80952-3) NEGATIVE NEGATIVE [facility] National Provider IdentifierUrine glucose detection by automated test strip 2021-06-19 15:50:00 Test Item Value Reference Range Interpretation Comments Urine Glucose (UA) (test code = NEGATIVE NEGATIVE 86767-7) [facility] Provider IdentifierUrine ketones detection by automated test strip 2021-06-19 15:50:00 Test Item Value Reference Range Interpretation Comments Urine Ketones (test code = 79914-4) NEGATIVE NEGATIVE [facility] Provider IdentifierUrine urobilinogen measurement by test strip (mass/volume)2021-06-19 15:50:00 Test Item Value Reference Range Interpretation Comments Urine Urobilinogen (test code = 0.2 0.2-1 10874-2) [facility] National Provider IdentifierUrine total bilirubin wongzzohd3602-29-26 15:50:00 Test Item Value Reference Range Interpretation Comments Urine Bilirubin (test code = 1977-8) NEGATIVE NEGATIVE [facility] Provider IdentifierUrine erythrocytes mojqhhmtf2368-00-34 15:50:00 Test Item Value Reference Range Interpretation Comments Urine Blood (test code = 52156-4) MODERATE NEGATIVE [facility] National Provider IdentifierAutomated urine sediment leukocyte count by microscopy (number/high power field)2021-06-19 15:50:00 Test Item Value Reference Range Interpretation Comments Urine WBC (test code = 5821-4) 11-20 0-5 [facility] National Provider IdentifierErythrocytes detection in urine sediment by light aewigjmpaq5458-98-19 15:50:00 Test Item Value Reference Range Interpretation Comments Urine RBC (test code = 29695-4) 6-10 0-5 [facility] National Provider IdentifierBacteria detection in urine sediment by light fxgfonvoxn3756-07-25 15:50:00 Test Item Value Reference Range Interpretation Comments Urine Bacteria (test code = 71952-0) MANY NONE [facility] National Provider IdentifierEpithelial cells detection in urine sediment by light mhrpnuwyhp0165-58-69 15:50:00 Test Item Value Reference Range Interpretation Comments Urine Epithelial Cells (test code = MODERATE NONE 43649-0) [facility] National Provider IdentifierUrine human chorionic gonadotropin (hCG) jgmrsacou4678-91-40 15:50:00 Test Item Value Reference Range Interpretation Comments Urine Test (test code = NEGATIVE NEGATIVE 6-3) [facility] National Provider IdentifierFluoroscopic procedure less than one hour bnrypdbu2696-83-92 15:50:00 Test Item Value Reference Range Interpretation Comments Lactic Acid Level (test code = Lactic 1.5 0.5-2.0 Acid Level) [facility] National Provider IdentifierSerum or plasma creatine kinase measurement (enzymatic activity/volume)2021-06-19 15:50:00 Test Item Value Reference Range Interpretation Comments Creatine Kinase (test code = 2157-6) 74 29-168 [facility] Provider IdentifierSerum or plasma creatine kinase MB measurement (mass/volume)2021-06-19 15:50:00 Test Item Value Reference Range Interpretation Comments Creatine Kinase MB (test code = 0.70 0-5.0 96821-3) [facility] Provider IdentifierTroponin I measurement by highly sensitive enzyme xuiuuptjsnl7385-00-17 15:50:00 Test Item Value Reference Range Interpretation Comments Troponin I (test code = 36427-3) 0.002 0-0.300 [facility] Provider OxuvutcgdvIWNU-AzC-1 (COVID-19) RNA [Presence] in Respiratory specimen by LYNETTE with probe vazhuuowk4275-05-40 15:50:00 Test Item Value Reference Range Interpretation Comments Coronavirus (PCR) (test code = NOT DETECTED NOTDETECTED 40037-9) [facility] Provider IdentifierBlood leukocytes automated count (number/volume)2021-06-19 14:50:00 Test Item Value Reference Range Interpretation Comments White Blood Count (test code = 6690-2) 10.20 4.8-10.8 [facility] erythrocytes automated count (number/volume)2021-06-19 14:50:00 Test Item Value Reference Range Interpretation Comments Red Blood Count (test code = 789-8) 4.59 3.6-5.1 [facility] hemoglobin measurement (moles/volume) 2021-06-19 14:50:00 Test Item Value Reference Range Interpretation Comments Hemoglobin (test code = 73009-0) 11.7 12.0-16.0 [facility]ballAutomated blood hematocrit (volume fraction) 2021-06-19 14:50:00 Test Item Value Reference Range Interpretation Comments Hematocrit (test code = 4544-3) 39.1 34.2-44.1 [facility]ballAutomated erythrocyte mean corpuscular volume 2021-06-19 14:50:00 Test Item Value Reference Range Interpretation Comments Mean Corpuscular Volume (test code = 85.2 81-99 787-2) [facility]ballAutomated erythrocyte mean corpuscular hemoglobin (mass per erythrocyte)2021-06-19 14:50:00 Test Item Value Reference Range Interpretation Comments Mean Corpuscular Hemoglobin (test code 25.5 28-32 = 785-6) [facility]ballAutomated erythrocyte mean corpuscular hemoglobin concentration measurement (mass/volume)2021-06-19 14:50:00 Test Item Value Reference Range Interpretation Comments Mean Corpuscular Hemoglobin Concent 29.9 31-35 (test code = 786-4) [facility] TomballRDW XohFu-Ugc5468-87-01 14:50:00 Test Item Value Reference Range Interpretation Comments Red Cell Distribution Width (test code 16.1 11.7-14.4 = 53032-6) [facility]ballAutomated blood platelet count (count/volume) 2021-06-19 14:50:00 Test Item Value Reference Range Interpretation Comments Platelet Count (test code = 777-3) 306 140-360 [facility] TomballAutomated blood segmented neutrophil count as percentage of total vjbbikesfb7825-70-65 14:50:00 Test Item Value Reference Range Interpretation Comments Neutrophils (%) (Auto) (test code = 70.8 38.7-80.0 46969-4) [facility] TomballAutomated blood lymphocyte count as percentage ot total sazrvlwces0302-08-11 14:50:00 Test Item Value Reference Range Interpretation Comments Lymphocytes (%) (Auto) (test code = 19.3 18.0-39.1 736-9) [facility] TomballAutomated blood monocyte count as percentage of total wcneebkuuq7829-13-15 14:50:00 Test Item Value Reference Range Interpretation Comments Monocytes (%) (Auto) (test code = 6.8 4.4-11.3 5905-5) [facility] TomballAutomated blood eosinophil count as percentage of total fqexkcowpy5922-92-79 14:50:00 Test Item Value Reference Range Interpretation Comments Eosinophils (%) (Auto) (test code = 2.3 0.0-6.0 713-8) [facility] TomballAutomated blood basophil count as percentage of total auuxweyfpe8190-84-41 14:50:00 Test Item Value Reference Range Interpretation Comments Basophils (%) (Auto) (test code = 0.5 0.0-1.0 706-2) [facility] TomballFluoroscopic procedure less than one hour fmdbaydg5225-71-85 14:50:00 Test Item Value Reference Range Interpretation Comments IM GRANULOCYTES % (test code = IM 0.3 0.0-1.0 GRANULOCYTES %) [facility] TomballAutomated blood neutrophil dgaxy0430-60-73 14:50:00 Test Item Value Reference Range Interpretation Comments Neutrophils # (Auto) (test code = 7.2 2.1-6.9 751-8) [facility]ballBlood lymphocytes count (number/volume) 2021-06-19 14:50:00 Test Item Value Reference Range Interpretation Comments Lymphocytes # (Auto) (test code = 2.0 1.0-3.2 14796-2) [facility]ballBlood monocytes automated count (number/volume)2021-06-19 14:50:00 Test Item Value Reference Range Interpretation Comments Monocytes # (Auto) (test code = 742-7) 0.7 0.2-0.8 [facility] TomballAutomated blood eosinophil jpexe2229-42-98 14:50:00 Test Item Value Reference Range Interpretation Comments Eosinophils # (Auto) (test code = 0.2 0.0-0.4 711-2) [facility] TomballAutomated blood basophil count (count/volume) 2021-06-19 14:50:00 Test Item Value Reference Range Interpretation Comments Basophils # (Auto) (test code = 704-7) 0.1 0.0-0.1 [facility] TomballFluoroscopic procedure less than one hour dhecllcg3650-06-51 14:50:00 Test Item Value Reference Range Interpretation Comments Absolute Immature Granulocyte (auto 0.03 0-0.1 (test code = Absolute Immature Granulocyte (auto) [facility] sodium [facility] (moles/volume)2021-06-19 14:50:00 Test Item Value Reference Range Interpretation Comments Sodium Level (test code = 2951-2) 139 136-145 [facility] potassium measurement (moles/volume)2021-06-19 14:50:00 Test Item Value Reference Range Interpretation Comments Potassium Level (test code = 2823-3) 4.5 3.5-5.1 [facility] plasma chloride measurement (moles/volume)2021-06-19 14:50:00 Test Item Value Reference Range Interpretation Comments Chloride Level (test code = 2075-0) 106 98-107 [facility]ererum or plasma carbon dioxide, total measurement (moles/volume)2021-06-19 14:50:00 Test Item Value Reference Range Interpretation Comments Carbon Dioxide Level (test code = -2027-9) [facility]ere[facility] or plasma anion oll0821-31-83 14:50:00 Test Item Value Reference Range Interpretation Comments Anion Gap (test code = 48130-0) 15.5 8-16 [facility] urea nitrogen measurement (mass/volume)2021-06-19 14:50:00 Test Item Value Reference Range Interpretation Comments Blood Urea Nitrogen (test code = 14 12-11 3094-0) [facility] creatinine measurement (mass/volume)2021-06-19 14:50:00 Test Item Value Reference Range Interpretation Comments Creatinine (test code = 2160-0) 0.96 0.57-1.11 [facility]ere[facility] plasma urea nitrogen/creatinine mass ubbfp6615-30-74 14:50:00 Test Item Value Reference Range Interpretation Comments BUN/Creatinine Ratio (test code = 15 625 3097-3) [facility] TomballEstimated glomerular filtration rate (GFR) wjapvmcbrewke9542-28-36 14:50:00 Test Item Value Reference Range Interpretation Comments Estimat Glomerular 63 See_Comment [Automat ed message] The Filtration Rate (test system which generated code = 260928061) this resul t transmitted reference range : 60-. The reference r belinda was not used to int erpret this result as normal/abnormal . [facility] TomballGlucose zcjlxfauqwb8651-10-68 14:50:00 Test Item Value Reference Range Interpretation Comments Glucose Level (test code = JJR8800) 97 74-118 [facility]ere[facility] plasma calcium measurement (mass/volume)2021-06-19 14:50:00 Test Item Value Reference Range Interpretation Comments Calcium Level (test code = 91794-9) 10.0 8.4-10.2 [facility]ererum or plasma total bilirubin measurement (mass/volume)2021-06-19 14:50:00 Test Item Value Reference Range Interpretation Comments Total Bilirubin (test code = 1975-2) 0.3 0.2-1.2 [facility] TomballFluoroscopic procedure less than one hour axhtswch4220-78-57 14:50:00 Test Item Value Reference Range Interpretation Comments Aspartate Amino Transf (AST/SGOT) (test 20 5-34 code = Aspartate Amino Transf (AST/SGOT)) [facility]ererum or plasma alanine aminotransferase measurement (enzymatic activity/volume)2021-06-19 14:50:00 Test Item Value Reference Range Interpretation Comments Alanine Aminotransferase (ALT/SGPT) 15 0-55 (test code = 1742-6) [facility]ererum or plasma protein measurement (mass/volume)2021-06-19 14:50:00 Test Item Value Reference Range Interpretation Comments Total Protein (test code = 2885-2) 8.3 6.5-8.1 [facility] Centererum or plasma albumin measurement (mass/volume)2021-06-19 14:50:00 Test Item Value Reference Range Interpretation Comments Albumin (test code = 1751-7) 3.7 3.5-5.0 [facility] TomballPlasma globulin measurement (mass/volume) 2021-06-19 14:50:00 Test Item Value Reference Range Interpretation Comments Globulin (test code = 04028-7) 4.6 2.3-3.5 [facility]ererum or plasma albumin/globulin mass ratio 2021-06-19 14:50:00 Test Item Value Reference Range Interpretation Comments Albumin/Globulin Ratio (test code = 0.8 0.8-2.0 1759-0) [facility]ererum or plasma alkaline phosphatase measurement (enzymatic activity/volume)2021-06-19 14:50:00 Test Item Value Reference Range Interpretation Comments Alkaline Phosphatase (test code = 133 40-150 6768-6) [facility]ererum or plasma lipase measurement (enzymatic activity/volume)2021-06-19 14:50:00 Test Item Value Reference Range Interpretation Comments Lipase (test code = 3040-3) 12 [facility] W/[id number] 23:02:00 [facility] [place] : 1975 Sex: F FAX: Adenike Stone MD [phone] [place]: [address]: REG Name: LIANA ASHBY [facility] : 1975 Age/S: 46/F [address] [facility] Unit: [id number] Loc: E.ERS2 [place], [place]: [place] [id number] Acct: [id number] Dis Date: Status: REG ER PHONE #: [phone] Exam Date: 06/17/20212199 FAX #: [phone] Reason: ABDO PAIN Report Has Been Amended EXAMS: CPT CODE: [id number] CT ABD PELVIS W/CONT 99401 Addendum - 06/17/2021 SIGNED 06/17/2021 ADDENDUM: [id number] CT/CTABPLW Please addendthe report to read: " Further evaluation is limited of the bowel secondary to absence of oral contrast." at 2302 Reported and signed by: Heidi Mixon M.D. Report CT abdomen and pelvis with IV contrast. Indication: Abdominal pain Location: R16 Comparison: Technique: CT images of the abdomen and pelvis were obtained fromthe diaphragm to the pubic symphysis after the administration of intravenous contrast contrast. Coronal reformats are provided. One or more of the following dose reduction techniques were used: Automated exposure control, adjustment of the mA and/or kV according to patient size, and/or utilization of iterative reconstruction technique. Findings: Lungs bases: Unremarkable. GI: Nonspecific gastric surgery changes are noted with 2 bowel anastomoses one in the midabdomen and one in the Right abdomen with nonspecific focal dilation of what appears to be at the site of anastomosis in the right abdomen. No definite obstruction is seen. Further evaluation is limited of the bowel secondary to absence of IV contrast. Mild diverticulosis is noted. The appendix is unremarkable. Liver: Unremarkable. PAGE 1 Signed Report (CONTINUED) FAX: Adenike Stone MD [phone] [place]: St: REG Name: LIANA ASHBY [facility] :1975 Age/S: 46/F [address] [facility] Unit: [id number] Loc: E.ERS2 [place], [place]: [place] [id number] Acct: [id number] Dis Date: Status: REG ER PHONE #: [phone] ExamDate: 06/17/2021 2200 FAX #: [phone] Reason: ABDO PAIN Report Has Been Amended EXAMS: CPTCODE: [id number] CT ABD PELVIS W/CONT 69572 <Continued> Gallbladder: Surgically absent Pancreas: Unremarkable. Spleen: Unremarkable. Adrenal glands: Unremarkable. Kidneys: Unremarkable. Peritoneum: No ascites or free air. Skeletal: No acute fracture.. Impression: Nonspecific gastric surgery changes are noted with 2 bowel anastomoses one in the midabdomen and one in the Right abdomen with nonspecific focal dilation of what appears to be at the site of anastomosis in the right abdomen. No definite obstruction is seen. Further evaluation is limited of the bowel secondary to absence of IV contrast. Additional findings as detailed above at 2233 Reported and signed by: Heidi Wade M.D. CC: Adenike Stone MD Technologist: Hien De Leon Trnscrd Dt/Tm: 06/17/2021 (2233) [email or web address] Orig Print D/T: S: 06/17/2021 (2236 PAGE 2 Signed ReportBASIC METABOLIC [id number] 21:56:00 Test Item Value Reference Range Interpretation Comments SODIUM (test code = NA) 137 mmol/l 134.0-147.0 N POTASSIUM (test code = K) 4.0 mmol/L 3.6-5.2 N CHLORIDE (test code = CL) 101 mmol/l 98.0-107.0 N CARBON DIOXIDE (test code = CO2) 28.0 mmol/l 21.0-33.0 N ANION GAP (test code = GAP) 12.0 0-20 N GLUCOSE (test code = GLU) 97 mg/dl 70.0-110.0 N BLOOD UREA NITROGEN (test code = 19 mg/dl 7.0-18.0 H BUN) CREATININE (test code = CREAT) 1.12 mg/dL 0.60-1.30 N GFR NON BLACK (test code = 56 mL/min 95-105 L GFRNONBLACK) GFR BLACK (test code = GFRBLACK) 67 mL/min 115-127 L CALCIUM (test code = CA) 9.5 mg/dl 8.0-10.5 N HEPATIC FUNCTION PANEL [id number] 21:56:00 Test Item Value Reference Range Interpretation Comments TOTAL PROTEIN (test code = PROT) 7.6 gm/dL 6.4-8.2 N ALBUMIN (test code = ALB) 3.3 gm/dl 3.2-4.7 N BILIRUBIN TOTAL (test code = 0.1 mg/dl 0.0-1.0 N BILT) BILIRUBIN DIRECT (test code = <0.1 mg/dl 0.0-0.3 N BILD) SGOT/AST (test code = AST) 12 Units/L 15-37 L SGPT/ALT (test code = ALT) 18 Units/L 12.0-78.0 N ALKALINE PHOSPHATASE TOTAL (test 152 Units/L 50.0-136.0 H code = ALKP) [id number] 21:56:00 Test Item Value Reference Range Interpretation Comments LIPASE (test code = LIP) 83 Units/L 65.0-230.0 N HCG SERUM [id number] 21:56:00 Test Item Value Reference Range Interpretation Comments HCG SERUM QUAL (test code = HCGQL) NEGATIVE NEGATIVE [id number] 21:56:00 Test Item Value Reference Range Interpretation Comments TROPONIN-I (test <0.02 NG/ML 0.00-0.06 N REFERENCE R BELINDA code = TROPI) TROPONIN I HEA LTHY INDIVIDUALS: <0 .06 ng/mL R/O ISCHE TUSHAR: 0.07 - 0.60 ng/ mL CUT-OFF RANGE F OR AMI: 0.60 - 1.5 ng/m L CBC W/AUTO [id number] 21:56:00 Test Item Value Reference Range Interpretation Comments WHITE BLOOD CELL (test code = 9.2 K/mm3 4.5-11.0 N WBC) RED BLOOD CELL (test code = 4.14 M/mm3 3.80-5.20 N RBC) HEMOGLOBIN (test code = HGB) 10.6 gm/dL 12.0-16.0 L HEMATOCRIT (test code = HCT) 34.6 % 36.0-48.0 L MEAN CELL VOLUME (test code = 83.6 UM3 82.0-99.0 N MCV) MEAN CELL HGB (test code = MCH) 25.6 UUG 25.5-32.5 N MEAN CELL HGB CONCETRATION 30.6 gm/dL 29.0-35.5 N (test code = MCHC) RED CELL DISTRIBUTION WIDTH 16.2 % 11.5-15.0 H (test code = RDW) RED CELL DISTRIBUTION WIDTH SD 48.7 fL 34.8-50.2 N (test code = RDW-SD) PLATELET COUNT (test code = 274 K/mm3 150-400 N PLT) MEAN PLATELET VOLUME (test code 10.9 fl 7.4-10.4 H = MPV) NEUTROPHIL % (test code = NT%) 62.7 % 49.0-76.0 N IMMATURE GRANULOCYTE % (test 0.2 % 0.0-0.4 N code = IG%) LYMPHOCYTE % (test code = LY%) 25.8 % 23.0-38.0 N MONOCYTE % (test code = MO%) 7.5 % 1.0-10.0 N EOSINOPHIL % (test code = EO%) 3.5 % 1.0-5.0 N BASOPHIL % (test code = BA%) 0.3 % 0.0-1.0 N NUCLEATED RBC % (test code = 0.0 % 0.0-0.1 N NRBC%) NEUTROPHIL # (test code = NT#) 5.8 K/mm3 2.4-6.3 N IMMATURE GRANULOCYTE # (test 0.02 x10 3/uL 0.00-0.07 N code = IG#) LYMPHOCYTE # (test code = LY#) 2.4 K/mm3 1.2-4.0 N MONOCYTE # (test code = MO#) 0.7 K/mm3 0.0-0.6 H EOSINOPHIL # (test code = EO#) 0.3 K/MM3 0.0-0.7 N BASOPHIL # (test code = BA#) 0.0 K/mm3 0.0-0.2 N NUCLEATED RBC # (test code = 0.00 X10 3uL 0.00-0.01 N NRBC#) PROTHROMBIN [id number] 21:43:00 Test Item Value Reference Range Interpretation Comments PROTHROMBIN TIME 11.0 SECONDS 9.9-12.8 N PATIENT (test code = PTP) INTERNATIONAL NORMAL 0.9 0.89-1.14 N THE INR IS TO BE USED RATIO (test code = ONLY FOR MONITORING INR) ORAL ANTICOAGULANTTH ERAPY. THE FOLLOWING A RE SUGGESTED RANGE S FROM HEALTH SYSTEM LEGE OF CHEST PHYSICIANS:KEDAR CATION INR VALUEPROPHY LAXIS OF VENOUS THROM BOSIS (ORTHOPEDIC ULI ANAND) 2.0 - 3.0PROPHY LAXIS OF VENOUS THROM BOSIS (OTHER THAN HIG H-RISK SURGERY) 2.0 - 3.0TREATMENT OF DEEP VEIN THROMBOSIS OR PULMONARY EMBOL ISM 2.0 - 3.0PREVENTION OF SYSTEMIC EMBOLI SM TISSUE HEART VA LVES 2.0 - 3.0 ACUTE MYOCARDIAL INFA RCTION (TO PREVENT SYS TEMIC EMBOLISM) 2.0 - 3.0 ACUTE MYOCARDIA L INFARCTION (TO PREVENT RECURRENT INFAR CT) 2.5 - 3.0 VALVULAR HEART DISEASE 2.0 - 3.0 ATRIAL FIBRILAT ION 2.0 - 3.0BILEAFLET MECHANICAL VALV E IN AORTIC POSITION 2.0 - 3.0MECHANICAL PROSTHETIC VALV ES (HIGH RISK) 2.5 - 3.5PRESENCE OF LUPUS ANTICOAGULANT O R ANTIPHOSPHOLIPI D ANTIBODIES 2.5 - 3.5 URINALYSIS [id number] 20:57:00 Test Item Value Reference Range Interpretation Comments UA COLOR (test code = YELLOW COLU) UA APPEARANCE (test code HAZY = APPU) UA GLUCOSE DIPSTICK (test NORMAL mg/dl NORMAL code = DGLUU) UA BILIRUBIN DIPSTICK NEGATIVE mg/dL NEGATIVE (test code = BILU) UA KETONE DIPSTICK (test NEGATIVE mg/dl NEGATIVE code = KETU) UA SPECIFIC GRAVITY (test 1.015 1.000-1.030 code = SGU) UA BLOOD DIPSTICK (test 25 Jorge Alberto/micL Jorge Alberto/micL NEGATIVE A code = WINSTON) UA PH DIPSTICK (test code 6.5 5.0-9.0 = FOSTER) UA PROTEIN DIPSTICK (test NEGATIVE mg/dl NEGATIVE code = PROU) UA UROBILINIOGEN DIPSTICK NORMAL mg/dl NORMAL (test code = URO) UA NITRITE DIPSTICK (test NEGATIVE NEGATIVE code = SU) UA LEUKOCYTE ESTERASE 25 Debi/micL Debi/micL NEGATIVE A DIPSTICK (test code = LEUU) UA WBC (test code = WBCU) 10-20 WBC/HPF NONE A UA RBC (test code = RBCU) 5-10 RBC/HPF 0-3 A UA EPITHELIAL CELLS (test 10-15 EPI/HPF 0-3 A code = EPIU) UA BACTERIA (test code = MANY NONE A BACU) Specimen comments: Clean CatchCOVID 19 Asymptomatic IH [id number] 17:33:00 Test Item Value Reference Range Interpretation Comments COVID 19 NEGATIVE NEGATIVE Negative result s should be Asymptomatic IH AG treated a s presumptive and (test code = ifinconsistent with COVNONPUIAG) clinical signs and symptoms, or ne cessaryfor patient managem ent, should be tested with an alternativemole cular assay. Negative results do not preclude ZUTZ-HeM-6uoszj tion and should not be u sed as the sole basis forp atient management deci sions. Negative result s should beconsidered in the context of a pa tient's recent exposure s,history, presence of cli nical signs and symptoms consistentwith COVID-19. ABO and Rh [id number] 13:57:00 Test Item Value Reference Range Interpretation Comments ABO grouping (test code = 883-9) O Rh type (test code = 99122-0) POS [facility] and Rh vnhubtyztkkp8169-71-64 13:57:00 Test Item Value Reference Range Interpretation Comments ABO grouping (test code = 883-9) O Rh type (test code = 46916-4) POS [facility] and Rh lsniyvrtnaqi8001-70-45 13:57:00 Test Item Value Reference Range Interpretation Comments ABO grouping (test code = 883-9) O Rh type (test code = 52462-1) POS [facility] and Rh unnhzjzjdlst9517-77-30 13:57:00 Test Item Value Reference Range Interpretation Comments ABO grouping (test code = 883-9) O Rh type (test code = 66397-1) [facility] sptabyrkybhf0127-66-24 13:57:00 Test Item Value Reference Range Interpretation Comments ABO grouping (test code = 883-9) O Rh type (test code = 46566-9) POS [facility] and [id number] 13:26:00 Test Item Value Reference Range Interpretation Comments ABO grouping (test code = 883-9) O Rh type (test code = 42891-7) POS Antibody screen (gel) (test code = NEG 890-4) [facility] and [id number] 13:26:00 Test Item Value Reference Range Interpretation Comments ABO grouping (test code = 883-9) O Rh type (test code = 93615-7) POS Antibody screen (gel) (test code = NEG 890-4) [facility] and [id number] 13:26:00 Test Item Value Reference Range Interpretation Comments ABO grouping (test code = 883-9) O Rh type (test code = 37582-4) POS Antibody screen (gel) (test code = NEG 890-4) [facility] and [id number] 13:26:00 Test Item Value Reference Range Interpretation Comments ABO grouping (test code = 883-9) O Rh type (test code = 88107-3) POS Antibody screen (gel) (test code = NEG 890-4) [facility] and [id number] 13:26:00 Test Item Value Reference Range Interpretation Comments ABO grouping (test code = 883-9) O Rh type (test code = 01821-5) POS Antibody screen (gel) (test code = NEG 890-4) [place] [facility] [id number] 22:52:00 Test Item Value Reference Range Interpretation Comments DRUG SCRN (test code = URINE DRUG HDOA) SCREEN This is an unconfirmed screening result and should not be used for non-medical purposes CANNABINOD (test code NEGATIVE NEGATIVE = 88C) AMPHETAMINE (test code NEGATIVE NEGATIVE = 84A) BENZODIAZP (test code NEGATIVE NEGATIVE = 86A) BARBITURAT (test code POSITIVE NEGATIVE A = 85A) OPIATES (test code = POSITIVE NEGATIVE A 92B) COCAINE (test code = NEGATIVE NEGATIVE 87A) PHENCYCLID (test code NEGATIVE NEGATIVE = 66A) METHADONE (test code = NEGATIVE NEGATIVE 64A) DOAH (test code = DOAH.) URINE DRUGSCREEN Cut-off values are as follows: Cannabinoids 50 ng/mL Cocaine 300 ng/mL Amphetamines 1000 ng/mL Phencyclidine 25 ng/mL Benzodiazepines 200 ng.mL Methadone 300 ng/mL Barbiturates 200 ng/mL Opiates 300 ng/mL URINALYSIS WITH [id number] 22:48:00 Test Item Value Reference Range Interpretation Comments COLOR (test code = COLU) YELLOW YELLOW CLARITY (test code = CLA) CLEAR CLEAR GLUCOSE UR (test code = UA NEGATIVE NEGATIVE GLUCOSE) BILI UR (test code = BILE) NEGATIVE NEGATIVE KETONES UR (test code = JAIR) NEGATIVE NEGATIVE SP GRAVITY (test code = SPGR) 1.017 1.005-1.030 PH UR (test code = PH) 6.5 4.5-8.0 PROTEIN UR (test code = PU) NEGATIVE NEGATIVE UROBIL UR (test code = UROQ) 1.0 EU/dL 0.2-1.0 NITRITE UR (test code = NITRITE) NEGATIVE NEGATIVE BLOOD UR (test code = UA BLOOD) TRACE-INTACT NEGATIVE A LEUK ES UR (test code = LEUK) TRACE NEGATIVE A WBC UR (test code = UWBC) 1 /HPF 0-5 RBC UR (test code = URBC) 0 /HPF 0-2 EPITH UR (test code = UEPC) FEW /LPF FEW BACTERIA UR (test code = UBACT) NONE /HPF NONE CAST UR (test code = CAST) /LPF NONE CRYSTAL UR (test code = CRYU) / LPF NONE MUCUS UR (test code = MUC) / HPF NONE AMORPH UR (test code = MIGUEL) / HPF NONE TRICH UR (test code = UTRICH) /HPF NONE YEAST UR (test code = UY) /HPF NONE SPERM UR (test code = USPERM) /HPF NONE URINE [id number] 22:42:00 Test Item Value Reference Range Interpretation Comments PREG UR (test code = PGU) NEGATIVE NEGATIVE UA RFLX MICR CULT IF [id number] 18:59:00 Test Item Value Reference Range Interpretation Comments UA COLOR (test code = COLU) YELLOW discript YEL/STRAW UA APPEARANCE (test code = CLEAR discript CLEAR APPU) UA GLUCOSE DIPSTICK (test NEGATIVE mg/dL NEG code = DGLUU) UA BILIRUBIN DIPSTICK (test NEGATIVE mg/dL NEG code = BILU) UA KETONE DIPSTICK (test NEGATIVE mg/dL NEG code = KETU) UA SPECIFIC GRAVITY (test 1.020 SG 1.005-1.030 code = SGU) UA BLOOD DIPSTICK (test TRACE mg/DL NEG A code = WINSTON) UA PH DIPSTICK (test code = 6.0 pH UNITS 5.0-7.0 FOSTER) UA PROTEIN DIPSTICK (test NEGATIVE mg/dL NEG code = PROU) UA UROBILINIOGEN DIPSTICK 0.2 mg/dL <2.0 (test code = URO) UA NITRITE DIPSTICK (test NEGATIVE SCREEN NEG code = SU) UA LEUKOCYTE ESTERASE NEGATIVE Leuk/mcL NEGATIVE DIPSTICK (test code = LEUU) UA CULTURE NEEDED? (test Criteria Culture CHK code = UACULT) Indication for culture: Flank PainUR HCG [id number] 18:59:00 Test Item Value Reference Range Interpretation Comments UR HCG QUAL (test code = HCGQLU) NEGATIVE NEGATIVE Indication for culture: Flank PainURINALYSIS WITH [id number] 22:25:00 Test Item Value Reference Range Interpretation Comments COLOR (test code = COLU) YELLOW YELLOW CLARITY (test code = CLA) CLEAR CLEAR GLUCOSE UR (test code = UA NEGATIVE NEGATIVE GLUCOSE) BILI UR (test code = BILE) NEGATIVE NEGATIVE KETONES UR (test code = JAIR) NEGATIVE NEGATIVE SP GRAVITY (test code = SPGR) 1.023 1.005-1.030 PH UR (test code = PH) 6.5 4.5-8.0 PROTEIN UR (test code = PU) NEGATIVE NEGATIVE UROBIL UR (test code = UROQ) 1.0 EU/dL 0.2-1.0 NITRITE UR (test code = NITRITE) NEGATIVE NEGATIVE BLOOD UR (test code = UA BLOOD) TRACE-INTACT NEGATIVE A LEUK ES UR (test code = LEUK) TRACE NEGATIVE A WBC UR (test code = UWBC) 4 /HPF 0-5 RBC UR (test code = URBC) 4 /HPF 0-2 H EPITH UR (test code = UEPC) FEW /LPF FEW BACTERIA UR (test code = UBACT) NONE /HPF NONE CAST UR (test code = CAST) /LPF NONE CRYSTAL UR (test code = CRYU) / LPF NONE MUCUS UR (test code = MUC) / HPF NONE AMORPH UR (test code = MIGUEL) / HPF NONE TRICH UR (test code = UTRICH) /HPF NONE YEAST UR (test code = UY) /HPF NONE SPERM UR (test code = USPERM) /HPF NONE URINE [id number] 21:43:00 Test Item Value Reference Range Interpretation Comments PREG UR (test code = PGU) NEGATIVE NEGATIVE AMYLASE AND [id number] 21:02:00 Test Item Value Reference Range Interpretation Comments AMYLASE (test code = 10A) 47 U/L 30-118 LIPASE (test code = 60A) 24 IU/L 12-53 COMPREHENSIVE METABOLIC [id number] 21:02:00 Test Item Value Reference Range Interpretation Comments GLUCOSE (test code 96 mg/dL 75-100 = 06D) SODIUM (test code 142 mmol/L 136-145 = 01A) POTASSIUM (test 4.0 mmol/L 3.6-5.1 code = 01B) CHLORIDE (test 110 mmol/L 98-107 H code = 04A) CO2 (test code = 26 mmol/L 20-31 02A) ANION GAP (test 10.0 mmol/L code = ANG) BUN (test code = 10 mg/dL 9-23 05D) CREATININE (test 1.0 mg/dL 0.6-1.0 code = 03E) GFR (test code = 68 See_Comment L [Automated GFR) mL/min/1.73m\\S\\2 message] Th e system which generated this result transmit kody reference range : >=90. The reference range was not used to interpret this result as normal/abnormal . GFR 79 See_Comment L [Automated DOMINICAN (test mL/min/1.73m\\S\\2 message] The code = GFRAA) system which generated this result transmit kody reference range : >=90. The reference range was not used to interpret this result as normal/abnormal . EGFR (test code = eGFR BY EGFR) CKD-EPI CALCULATION IS NOT RECOMMENDED FOR PATIENTS UNDER 18 YEARS OF AGE. BUN/CREA (test 10 12-20 L code = BCR) CALCIUM (test code 8.8 mg/dL 8.3-10.6 = 09D) BILI TOTAL (test <0.2 mg/dL 0.2-1.0 code = 11A) PROTEIN (test code 6.8 g/dL 5.7-8.2 = 07D) ALBUMIN (test code 4.1 g/dL 3.2-4.8 = 08D) GLOBULIN (test 2.7 g/dL 1.5-3.8 code = GLB) ALB/GLOB (test 1.5 1.0-2.6 code = AGRR) ALK PHOS (test 148 IU/L 46-116 H code = 35A) AST (test code = 14 IU/L See_Comment [Automated 30A) message] The system which generated this result transmit kody reference range : <=33. The reference range was not used to interpret this result as normal/abnormal . ALT (test code = 11 IU/L 10-49 31A) CBC (INCLUDES AUTOMATED DIFFERENTIAL)2021-06-04 20:42:00 Test Item Value Reference Range Interpretation Comments WBC (test code = WBC) 8.9 10\\S\\3/uL 4.5-11.0 RBC (test code = RBC) 4.17 10\\S\\6/uL 4.20-5.60 L HGB (test code = HBG) 10.8 g/dL 12.0-15.5 L HCT (test code = HCT) 35.1 % 35.0-44.0 MCV (test code = MCV) 84.2 fL 81.0-99.0 MCH (test code = MCH) 25.9 pg 27.0-31.0 L MCHC (test code = MCHC) 30.8 g/dL 32.0-36.0 L RDW (test code = RDW) 16.0 % 11.5-14.5 H PLT (test code = PLT) 284 10\\S\\3/uL 130-400 MPV (test code = MPV) 11.0 fL 9.4-12.4 NEUTROP # (test code = NE#) 6.0 10\\S\\3/uL 1.6-8.0 LYMPH # (test code = LY#) 1.7 10\\S\\3/uL 1.1-3.5 MONOCYTE # (test code = MO#) 0.9 10\\S\\3/uL 0.0-1.1 EOSINOPH # (test code = EO#) 0.3 10\\S\\3/uL 0.0-0.7 BASOPHIL # (test code = BA#) 0.0 10\\S\\3/uL 0.0-0.3 IG # (test code = IG#) 0.03 10\\S\\3/uL 0.00-0.06 NRBC # (test code = NRBC#) 0.00 10\\S\\3/uL 0.00-0.01 NEUTROPH % (test code = NE%) 67.2 % 35.0-73.0 LYMPH % (test code = LY%) 19.1 % 20.0-55.0 L MONO % (test code = MO%) 9.8 % 2.5-10.0 EOSINOPH % (test code = EO%) 3.3 % 0.0-5.0 BASOPHIL % (test code = BA%) 0.3 % 0.0-2.0 IG % (test code = IG%) 0.3 % 0.0-0.8 NRBC% (test code = NRBC%) 0.0 % 0.0-0.2 MANDIFF (test code = MDIFF) NO RBC MORPH (test code = RBCMOR) NORMAL CT STONE PROTOCOL [id number] 19:40:07 [facility] A[facility]BY: 1975 Sex: FLOCATION: [id number] Y: 46-year-old female who presents with right flank pain.COMMENT:Axial CT imaging of this patient's abdomen and pelvis was obtained without IV contrast. Coronal and sagittal soft tissue reconstructionswere included. An older examination of May 28, 2021 is available for comparison.One or more of the following dose reduction techniques are used: Automated exposure control, adjustment of the mA and/or kV according the patient size, and/or utilization of iterative reconstruction technique.DLP: 1273mGy-cmCONTRAST: NoneFINDINGS:The lungs are clear, and the cardiac silhouette is unremarkable.The liver, spleen, pancreas, adrenal glands, and kidneys exhibit no acute findings. There is no evidence of obstructive uropathy and there are no nonobstructing stones seen in either kidney.Cholecystectomy clips are noted.Postoperative changes secondary to bariatric surgery are again appreciated. The visualized intestinal tract anatomy is unchanged from the prior examination.Again seen is a normal-appearing a ppendix.The colon exhibits no acute findings.There is no ascites or adenopathy present.In the pelvisthe urinary bladder, uterus, and ovaries are unremarkable.The vascular anatomy is unremarkable.The musculoskeletal anatomy is unremarkable.IMPRESSION:There are no acute findings in this patient's abdomen or pelvis on this unenhanced CT examination. Please see above for details.Electronically signed by: Mac Duarte MD 06/04/2021 7:40 PM [facility] [id number] WITH [id number] 19:24:00 Test Item Value Reference Range Interpretation Comments COLOR (test code = COLU) YELLOW YELLOW CLARITY (test code = CLA) CLEAR CLEAR GLUCOSE UR (test code = UA GLUCOSE) NEGATIVE NEGATIVE BILI UR (test code = BILE) NEGATIVE NEGATIVE KETONES UR (test code = JAIR) NEGATIVE NEGATIVE SP GRAVITY (test code = SPGR) 1.009 1.005-1.030 PH UR (test code = PH) 7.0 4.5-8.0 PROTEIN UR (test code = PU) NEGATIVE NEGATIVE UROBIL UR (test code = UROQ) 0.2 EU/dL 0.2-1.0 NITRITE UR (test code = NITRITE) NEGATIVE NEGATIVE BLOOD UR (test code = UA BLOOD) 1+ NEGATIVE A LEUK ES UR (test code = LEUK) TRACE NEGATIVE A WBC UR (test code = UWBC) 4 /HPF 0-5 RBC UR (test code = URBC) 3 /HPF 0-2 H EPITH UR (test code = UEPC) FEW /LPF FEW BACTERIA UR (test code = UBACT) NONE /HPF NONE CAST UR (test code = CAST) /LPF NONE CRYSTAL UR (test code = CRYU) / LPF NONE MUCUS UR (test code = MUC) / HPF NONE AMORPH UR (test code = MIGUEL) / HPF NONE TRICH UR (test code = UTRICH) /HPF NONE YEAST UR (test code = UY) /HPF NONE SPERM UR (test code = USPERM) /HPF NONE URINE [id number] 19:09:00 Test Item Value Reference Range Interpretation Comments PREG UR (test code = PGU) NEGATIVE NEGATIVE SARS-CoV (RAPID ANTIGEN)2021-06-04 18:54:00 Test Item Value Reference Range Interpretation Comments SARS-CoV (ANTIGEN) NEGATIVE NEGATIVE (test code = COVAG) COVID AG (test This test has been code = COVAGC) marketed under the FDA Emergency Use Authorization (EUA) to meet challenges of the COVID-19 pandemic. The validation standards normally enforced by the FDA and the [employer] (CAP) are more stringent than those required for this test. Therefore, the result should be interpreted with caution and close attention to other clinical and epidemiological data URINE AND [id number] 07:02:00 Test Item Value Reference Range Interpretation Comments Occult Bld Stl (test Negative (05/31/21 1:02 code = Occult Bld Stl) AM) [facility] [id number] 07:02:00 Test Item Value Reference Range Interpretation Comments Occult Bld Stl (test Negative (05/31/21 1:02 code = Occult Bld Stl) AM) [facility] [id number] 04:15:00 Test Item Value Reference Range Interpretation Comments Glucose Lvl (test code = Glucose Lvl) 115 70-99 [place] [address]-01-13 04:15:00 Test Item Value Reference Range Interpretation Comments BUN (test code = BUN) 14 7-22 [place] [address]-01-13 04:15:00 Test Item Value Reference Range Interpretation Comments Creatinine Lvl (test code = Creatinine 1.09 0.50-1.40 Lvl) [place] [id number] 04:15:00 Test Item Value Reference Range Interpretation Comments Sodium Lvl (test code = Sodium Lvl) 139 135-145 [place] [address]-01-13 04:15:00 Test Item Value Reference Range Interpretation Comments Potassium Lvl (test code = Potassium 4.1 3.5-5.1 Lvl) [place] 559312-01-13 04:15:00 Test Item Value Reference Range Interpretation Comments Chloride Lvl (test code = Chloride Lvl) 110 95-109 [place] 559312-01-13 04:15:00 Test Item Value Reference Range Interpretation Comments CO2 (test code = CO2) 23 24-32 [place] [address]-01-13 04:15:00 Test Item Value Reference Range Interpretation Comments Calcium Lvl (test code = Calcium Lvl) 9.0 8.5-10.5 [place] [address]-01-13 04:15:00 Test Item Value Reference Range Interpretation Comments Total Protein (test code = Total 7.0 6.4-8.4 Protein) [place] [address]-01-13 04:15:00 Test Item Value Reference Range Interpretation Comments Albumin Lvl (test code = Albumin Lvl) 3.0 3.5-5.0 [place] [address]-01-13 04:15:00 Test Item Value Reference Range Interpretation Comments ALT (test code = ALT) 23 See_Comment [Auto mated message] The system which ge nerated this result transmit kody reference range : <=65. The reference range was not used to interpr et this result as michell l/abnormal. [place] [address]-01-13 04:15:00 Test Item Value Reference Range Interpretation Comments AST (test code = AST) 22 See_Comment [Auto mated message] The system which ge nerated this result transmit kody reference range : <=37. The reference range was not used to interpr et this result as michell l/abnormal. [id number] 04:15:00 Test Item Value Reference Range Interpretation Comments Alk Phos (test code = Alk Phos) 142 39-136 [place] 559312-01-13 04:15:00 Test Item Value Reference Range Interpretation Comments Bili Total (test code = Bili Total) no gt 0.2-1.3 [place] 559312-01-13 04:15:00 Test Item Value Reference Range Interpretation Comments AGAP (test code = AGAP) 10.1 10.0-20.0 [place] 559312-01-13 04:15:00 Test Item Value Reference Range Interpretation Comments B/C Ratio (test code = B/C Ratio) 13 1 6-25 [place] 559312-01-13 04:15:00 Test Item Value Reference Range Interpretation Comments Globulin (test code = Globulin) 4.0 2.7-4.2 [place] 559312-01-13 04:15:00 Test Item Value Reference Range Interpretation Comments A/G Ratio (test code = A/G Ratio) 0.8 1 0.7-1.6 [place] 559312-01-13 04:15:00 Test Item Value Reference Range Interpretation Comments eGFR (test code = eGFR) 61 [place] 559312-01-13 04:15:00 Test Item Value Reference Range Interpretation Comments Lipase Lvl (test code = Lipase Lvl) 45 73-393 [id number] 04:15:00 Test Item Value Reference Range Interpretation Comments S Preg (test code = S Negative *NA*(05/30/21 Preg) 10:15 PM) [place] 765442-01-13 04:15:00 Test Item Value Reference Range Interpretation Comments WBC (test code = WBC) 8.5 3.7-10.4 [place] 765442-01-13 04:15:00 Test Item Value Reference Range Interpretation Comments RBC (test code = RBC) 4.33 4.20-5.40 [place] 765442-01-13 04:15:00 Test Item Value Reference Range Interpretation Comments Hgb (test code = Hgb) 11.1 12.0-16.0 [place] 765442-01-13 04:15:00 Test Item Value Reference Range Interpretation Comments Hct (test code = Hct) 34.2 36.0-48.0 [place] 765442-01-13 04:15:00 Test Item Value Reference Range Interpretation Comments MCV (test code = MCV) 79.0 80.0-98.0 [place] 765442-01-13 04:15:00 Test Item Value Reference Range Interpretation Comments MCH (test code = MCH) 25.7 pg 27.0-31.0 [place] 765442-01-13 04:15:00 Test Item Value Reference Range Interpretation Comments MCHC (test code = MCHC) 32.5 32.0-36.0 [place] 765442-01-13 04:15:00 Test Item Value Reference Range Interpretation Comments RDW (test code = RDW) 16.7 11.5-14.5 [place] 765442-01-13 04:15:00 Test Item Value Reference Range Interpretation Comments Platelet (test code = Platelet) 276 133-450 [facility] [id number] 04:15:00 Test Item Value Reference Range Interpretation Comments MPV (test code = MPV) 8.9 7.4-10.4 [place] 765442-01-13 04:15:00 Test Item Value Reference Range Interpretation Comments Segs (test code = Segs) 65.5 45.0-75.0 [place] 765442-01-13 04:15:00 Test Item Value Reference Range Interpretation Comments Lymphocytes (test code = Lymphocytes) 23.3 20.0-40.0 [place] 765442-01-13 04:15:00 Test Item Value Reference Range Interpretation Comments Monocytes (test code = Monocytes) 7.7 2.0-12.0 [place] 765442-01-13 04:15:00 Test Item Value Reference Range Interpretation Comments Eosinophils (test code = 3.1 See_Comment [A utomated message] The Eosinophils) system which ge nerated this result tra nsmitted reference range : <=4.0. The reference r belinda was not used to int erpret this result as normal/abnormal . [facility] [id number] 04:15:00 Test Item Value Reference Range Interpretation Comments Basophils (test code = 0.4 See_Comment [Aut omated message] The Basophils) system which ge nerated this result tra nsmitted reference range : <=1.0. The reference r belinda was not used to int erpret this result as normal/abnormal . [place] 765442-01-13 04:15:00 Test Item Value Reference Range Interpretation Comments Neutrophils # (test code = Neutrophils 5.5 1.5-8.1 #) [place] 765442-01-13 04:15:00 Test Item Value Reference Range Interpretation Comments Lymphocytes # (test code = Lymphocytes 2.0 1.0-5.5 #) [place] [address]-01-13 04:15:00 Test Item Value Reference Range Interpretation Comments Monocytes # (test code 0.7 See_Comment [Aut omated message] The = Monocytes #) system which generated this result tra nsmitted reference range : <=0.8. The reference r belinda was not used to int erpret this result as normal/abnormal . [place] 765442-01-13 04:15:00 Test Item Value Reference Range Interpretation Comments Eosinophils # (test code 0.3 See_Comment [A utomated message] The = Eosinophils #) system whic h generated this result tra nsmitted reference range : <=0.5. The reference r belinda was not used to int erpret this result as normal/abnormal . [place] 559312-01-13 04:15:00 Test Item Value Reference Range Interpretation Comments Glucose Lvl (test code = Glucose Lvl) 115 70-99 [place] 559312-01-13 04:15:00 Test Item Value Reference Range Interpretation Comments BUN (test code = BUN) 14 7-22 [place] 559312-01-13 04:15:00 Test Item Value Reference Range Interpretation Comments Creatinine Lvl (test code = Creatinine 1.09 0.50-1.40 Lvl) [place] 559312-01-13 04:15:00 Test Item Value Reference Range Interpretation Comments Sodium Lvl (test code = Sodium Lvl) 139 135-145 [place] 559312-01-13 04:15:00 Test Item Value Reference Range Interpretation Comments Potassium Lvl (test code = Potassium 4.1 3.5-5.1 Lvl) [facility] [id number] 04:15:00 Test Item Value Reference Range Interpretation Comments Chloride Lvl (test code = Chloride Lvl) 110 95-109 [place] 559312-01-13 04:15:00 Test Item Value Reference Range Interpretation Comments CO2 (test code = CO2) 23 24-32 [place] 559312-01-13 04:15:00 Test Item Value Reference Range Interpretation Comments Calcium Lvl (test code = Calcium Lvl) 9.0 8.5-10.5 [facility] [id number] 04:15:00 Test Item Value Reference Range Interpretation Comments Total Protein (test code = Total 7.0 6.4-8.4 Protein) [facility]2022-01-13 04:15:00 Test Item Value Reference Range Interpretation Comments Albumin Lvl (test code = Albumin Lvl) 3.0 3.5-5.0 [facility] [id number] 04:15:00 Test Item Value Reference Range Interpretation Comments ALT (test code = ALT) 23 See_Comment [Auto mated message] The system which ge nerated this result transmit kody reference range : <=65. The reference range was not used to interpr et this result as michell l/abnormal. [facility] [id number] 04:15:00 Test Item Value Reference Range Interpretation Comments AST (test code = AST) 22 See_Comment [Auto mated message] The system which ge nerated this result transmit kody reference range : <=37. The reference range was not used to interpr et this result as michell l/abnormal. [facility] [id number] 04:15:00 Test Item Value Reference Range Interpretation Comments Alk Phos (test code = Alk Phos) 142 39-136 [facility] [id number] 04:15:00 Test Item Value Reference Range Interpretation Comments Bili Total (test code = Bili Total) no gt 0.2-1.3 [facility] [id number] 04:15:00 Test Item Value Reference Range Interpretation Comments AGAP (test code = AGAP) 10.1 10.0-20.0 [place] 559312-01-13 04:15:00 Test Item Value Reference Range Interpretation Comments B/C Ratio (test code = B/C Ratio) 13 1 6-25 [place] 559312-01-13 04:15:00 Test Item Value Reference Range Interpretation Comments Globulin (test code = Globulin) 4.0 2.7-4.2 [place] 559312-01-13 04:15:00 Test Item Value Reference Range Interpretation Comments A/G Ratio (test code = A/G Ratio) 0.8 1 0.7-1.6 [place] 559312-01-13 04:15:00 Test Item Value Reference Range Interpretation Comments eGFR (test code = eGFR) 61 [place] 559312-01-13 04:15:00 Test Item Value Reference Range Interpretation Comments Lipase Lvl (test code = Lipase Lvl) 45 73-393 [place] [id number] 04:15:00 Test Item Value Reference Range Interpretation Comments S Preg (test code = S Negative *NA*(05/30/21 Preg) 10:15 PM) [place] 765442-01-13 04:15:00 Test Item Value Reference Range Interpretation Comments WBC (test code = WBC) 8.5 3.7-10.4 [place] 765442-01-13 04:15:00 Test Item Value Reference Range Interpretation Comments RBC (test code = RBC) 4.33 4.20-5.40 [place] 765442-01-13 04:15:00 Test Item Value Reference Range Interpretation Comments Hgb (test code = Hgb) 11.1 12.0-16.0 [place] 765442-01-13 04:15:00 Test Item Value Reference Range Interpretation Comments Hct (test code = Hct) 34.2 36.0-48.0 [place] 765442-01-13 04:15:00 Test Item Value Reference Range Interpretation Comments MCV (test code = MCV) 79.0 80.0-98.0 [place] 765442-01-13 04:15:00 Test Item Value Reference Range Interpretation Comments MCH (test code = MCH) 25.7 pg 27.0-31.0 [place] 765442-01-13 04:15:00 Test Item Value Reference Range Interpretation Comments MCHC (test code = MCHC) 32.5 32.0-36.0 [place] 765442-01-13 04:15:00 Test Item Value Reference Range Interpretation Comments RDW (test code = RDW) 16.7 11.5-14.5 [place] 765442-01-13 04:15:00 Test Item Value Reference Range Interpretation Comments Platelet (test code = Platelet) 276 133-450 [place] 765442-01-13 04:15:00 Test Item Value Reference Range Interpretation Comments MPV (test code = MPV) 8.9 7.4-10.4 [place] 765442-01-13 04:15:00 Test Item Value Reference Range Interpretation Comments Segs (test code = Segs) 65.5 45.0-75.0 [place] 765442-01-13 04:15:00 Test Item Value Reference Range Interpretation Comments Lymphocytes (test code = Lymphocytes) 23.3 20.0-40.0 [place] 765442-01-13 04:15:00 Test Item Value Reference Range Interpretation Comments Monocytes (test code = Monocytes) 7.7 2.0-12.0 [place] 765442-01-13 04:15:00 Test Item Value Reference Range Interpretation Comments Eosinophils (test code = 3.1 See_Comment [A utomated message] The Eosinophils) system which ge nerated this result tra nsmitted reference range : <=4.0. The reference r belinda was not used to int erpret this result as normal/abnormal . [place] 765442-01-13 04:15:00 Test Item Value Reference Range Interpretation Comments Basophils (test code = 0.4 See_Comment [Aut omated message] The Basophils) system which ge nerated this result tra nsmitted reference range : <=1.0. The reference r belinda was not used to int erpret this result as normal/abnormal . [place] 765442-01-13 04:15:00 Test Item Value Reference Range Interpretation Comments Neutrophils # (test code = Neutrophils 5.5 1.5-8.1 #) [place] 765442-01-13 04:15:00 Test Item Value Reference Range Interpretation Comments Lymphocytes # (test code = Lymphocytes 2.0 1.0-5.5 #) [id number] 04:15:00 Test Item Value Reference Range Interpretation Comments Monocytes # (test code 0.7 See_Comment [Aut omated message] The = Monocytes #) system which generated this result tra nsmitted reference range : <=0.8. The reference r belinda was not used to int erpret this result as normal/abnormal . [facility] HospitalGljxiuaXMHJFAOIHV3536-87-89 04:15:00 Test Item Value Reference Range Interpretation Comments Eosinophils # (test code 0.3 See_Comment [A utomated message] The = Eosinophils #) system whic h generated this result tra nsmitted reference range : <=0.5. The reference r belinda was not used to int erpret this result as normal/abnormal . [facility] AND [id number] 04:10:00 Test Item Value Reference Range Interpretation Comments UA Mucus (test code = UA Mucus) Few /LPF [facility] AND [id number] 04:10:00 Test Item Value Reference Range Interpretation Comments UA Urobilinogen (test code = UA <=1.0 mg/dL 0.1-1.0 Urobilinogen) [facility] [id number] 04:10:00 Test Item Value Reference Range Interpretation Comments Culture: Urine (test 10,000 - 50,000 CFU/mL code = Culture: Urine) Skin Meagan [facility] AND [id number] 04:10:00 Test Item Value Reference Range Interpretation Comments UA Color (test code = Yellow *NA*(05/30/21 UA Color) 10:10 PM) [facility] AND [id number] 04:10:00 Test Item Value Reference Range Interpretation Comments UA Turbidity (test code Marked *ABN*(05/30/21 = UA Turbidity) 10:10 PM) [facility] AND [id number] 04:10:00 Test Item Value Reference Range Interpretation Comments UA Spec Grav (test code = UA Spec 1.021 1 Grav) [facility] AND [id number] 04:10:00 Test Item Value Reference Range Interpretation Comments UA pH (test code = UA pH) 5.0 1 5.0-8.0 [facility] AND [id number] 04:10:00 Test Item Value Reference Range Interpretation Comments UA Protein (test code = UA Negative mg/dL Protein) [facility] AND [id number] 04:10:00 Test Item Value Reference Range Interpretation Comments UA Glucose (test code = UA Negative mg/dL Glucose) [facility] AND [id number] 04:10:00 Test Item Value Reference Range Interpretation Comments UA Ketones (test code = UA Negative mg/dL Ketones) [facility] AND [id number] 04:10:00 Test Item Value Reference Range Interpretation Comments UA Bili (test code = Negative *NA*(05/30/21 UA Bili) 10:10 PM) [facility] AND [id number] 04:10:00 Test Item Value Reference Range Interpretation Comments UA Blood (test code = Small *ABN*(05/30/21 UA Blood) 10:10 PM) [facility] AND [id number] 04:10:00 Test Item Value Reference Range Interpretation Comments UA Nitrite (test code Negative (05/30/21 10:10 = UA Nitrite) PM) [facility] AND [id number] 04:10:00 Test Item Value Reference Range Interpretation Comments UA Leuk Est (test code Trace *ABN*(05/30/21 = UA Leuk Est) 10:10 PM) [facility] AND [id number] 04:10:00 Test Item Value Reference Range Interpretation Comments UA Sq Epi (test code = UA Sq Moderate /LPF Epi) [facility] AND [id number] 04:10:00 Test Item Value Reference Range Interpretation Comments UA WBC (test code = 10 See_Comment [Automa kody message] The UA WBC) system which ge nerated this result transmit kody reference range : <=5. The reference range was not used to interpr et this result as michell l/abnormal. [facility] AND [id number] 04:10:00 Test Item Value Reference Range Interpretation Comments UA RBC (test code = 3 See_Comment [Automa kody message] The UA RBC) system which ge nerated this result transmit kody reference range : <=2. The reference range was not used to interpr et this result as michell l/abnormal. [facility] AND [id number] 04:10:00 Test Item Value Reference Range Interpretation Comments UA Bacteria (test code = UA Moderate /HPF Bacteria) [facility] AND [id number] 04:10:00 Test Item Value Reference Range Interpretation Comments UA Mucus (test code = UA Mucus) Few /LPF [facility] AND [id number] 04:10:00 Test Item Value Reference Range Interpretation Comments UA Urobilinogen (test code = UA <=1.0 mg/dL 0.1-1.0 Urobilinogen) [facility] [id number] 04:10:00 Test Item Value Reference Range Interpretation Comments Culture: Urine (test 10,000 - 50,000 CFU/mL code = Culture: Urine) Skin Meagan [facility] AND [id number] 04:10:00 Test Item Value Reference Range Interpretation Comments UA Color (test code = Yellow *NA*(05/30/21 UA Color) 10:10 PM) [facility] AND [id number] 04:10:00 Test Item Value Reference Range Interpretation Comments UA Turbidity (test code Marked *ABN*(05/30/21 = UA Turbidity) 10:10 PM) [facility] AND [id number] 04:10:00 Test Item Value Reference Range Interpretation Comments UA Spec Grav (test code = UA Spec 1.021 1 Grav) [facility] AND [id number] 04:10:00 Test Item Value Reference Range Interpretation Comments UA pH (test code = UA pH) 5.0 1 5.0-8.0 [facility] AND [id number] 04:10:00 Test Item Value Reference Range Interpretation Comments UA Protein (test code = UA Negative mg/dL Protein) [facility] AND [id number] 04:10:00 Test Item Value Reference Range Interpretation Comments UA Glucose (test code = UA Negative mg/dL Glucose) [facility] AND [id number] 04:10:00 Test Item Value Reference Range Interpretation Comments UA Ketones (test code = UA Negative mg/dL Ketones) [facility] AND [id number] 04:10:00 Test Item Value Reference Range Interpretation Comments UA Bili (test code = Negative *NA*(05/30/21 UA Bili) 10:10 PM) [facility] [id number] 04:10:00 Test Item Value Reference Range Interpretation Comments UA Blood (test code = Small *ABN*(05/30/21 UA Blood) 10:10 PM) [facility] [id number] 04:10:00 Test Item Value Reference Range Interpretation Comments UA Nitrite (test code Negative (05/30/21 10:10 = UA Nitrite) PM) [facility] AND [id number] 04:10:00 Test Item Value Reference Range Interpretation Comments UA Leuk Est (test code Trace *ABN*(05/30/21 = UA Leuk Est) 10:10 PM) [facility] AND [id number] 04:10:00 Test Item Value Reference Range Interpretation Comments UA Sq Epi (test code = UA Sq Moderate /LPF Epi) [facility] AND [id number] 04:10:00 Test Item Value Reference Range Interpretation Comments UA WBC (test code = 10 See_Comment [Automa kody message] The UA WBC) system which ge nerated this result transmit kody reference range : <=5. The reference range was not used to interpr et this result as michell l/abnormal. [facility] AND [id number] 04:10:00 Test Item Value Reference Range Interpretation Comments UA RBC (test code = 3 See_Comment [Automa kody message] The UA RBC) system which ge nerated this result transmit kody reference range : <=2. The reference range was not used to interpr et this result as michell l/abnormal. [facility] AND [id number] 04:10:00 Test Item Value Reference Range Interpretation Comments UA Bacteria (test code = UA Moderate /HPF Bacteria) [id number] 04:02:00 Test Item Value Reference Range Interpretation Comments Coronavirus (COVID-19) Not Detected (05/30/21 LYNETTE (test code = 10:02 PM) Coronavirus (COVID-19) LYNETTE) [id number] 04:02:00 Test Item Value Reference Range Interpretation Comments Coronavirus (COVID-19) Not Detected (05/30/21 LYNETTE (test code = 10:02 PM) Coronavirus (COVID-19) LYNETTE) [facility] METABOLIC [id number] 21:54:00 Test Item Value Reference Range Interpretation Comments SODIUM (test code = NA) 139 mEq/L 134-147 N POTASSIUM (test code = 4.0 mEq/L 3.4-5.0 N K) CHLORIDE (test code = 110 mEq/L 100-108 H CL) CARBON DIOXIDE (test 24 mEq/l 21-33 N code = CO2) ANION GAP (test code = 9 0-20 N GAP) GLUCOSE (test code = 111 mg/dL 70-110 H GLU) BLOOD UREA NITROGEN 10 mg/dL 7-18 N (test code = BUN) GLOMERULAR FILTRATION 60.0 95-105 L Units of measure = RATE (test code = GFR) ml/mi n/1.73 m2 CREATININE (test code = 1.0 mg/dL 0.6-1.3 N CREAT) CALCIUM (test code = 9.5 mg/dL 8.0-10.5 N CA) HEPATIC FUNCTION [id number] 21:54:00 Test Item Value Reference Range Interpretation Comments TOTAL PROTEIN (test code = PROT) 7.6 g/dL 6.4-8.2 N ALBUMIN (test code = ALB) 3.60 g/dL 3.4-5.0 N BILIRUBIN TOTAL (test code = < 0.20 mg/dL 0.0-1.0 N BILT) BILIRUBIN DIRECT (test code = < 0.10 MG/DL 0.0-0.30 N BILD) SGOT/AST (test code = AST) 18 IUnit/L 15-37 N SGPT/ALT (test code = ALT) 20 IUnit/L 30-65 L ALKALINE PHOSPHATASE TOTAL (test 166 IUnit/L 20-125 H code = ALKP) BILIRUBIN INDIRECT (test code = 0.10 MG/DL BILIND) [id number] 21:54:00 Test Item Value Reference Range Interpretation Comments LIPASE (test code = LIP) 22 U/L 13-57 N TROP-I HIGH [id number] 21:54:00 Test Item Value Reference Range Interpretation Comments TROP-I HIGH 4 ng/L 0-34 N CAUTION: Units of the SENSITIVITY (test current te st methodology code = TROPIHS) (ng/L) diffe rfrom the prior test methodolog y (ng/mL) by a factor of 1000. 99th Percentile Upper Reference Limit (URL): Females: 34 ng/LMales: 54 n g/L In order to distinguish acute elevations of h igh sensitivitytrop onin from other clinical conditions, the FourthUnive rsal Definition of M yocardial Infarction stre ssesclinical assessment and the demonstration o f a rise and/orfall in s erial troponin result s above the URL. These resu lts were obtained using Siemens AtellSonian IM TnI Hreagent. Results from di fferent methodologies s hould not becompared to o ne another as quantitative results and URLs mayvary by method. COVID 19 Asymptomatic IH [id number] 21:50:00 Test Item Value Reference Range Interpretation Comments COVID 19 Asymptomatic Negative Negative A nega tive result is IH AG (test code = presumpti ve and should COVNONPUIAG) be confirmedwit h an FDA authorized mole cular assay, if neces ivan forpatient willa gement.A positive result does not rule out co-inf ections withother patho gens.This test detects shane th viable (live) and non-viable,SARS -CoV, and SARS-CoV-2. Damian t performance dep ends on theamount of vi jose raul (antigen) in th e sample.This damian t has not been FDA cleare d or approved; the t est hasbeen authori zed by FDA under an Em ergency Use Authorizati on(EUA) for use by labo ratories certified under the CLIA thatmeet the requirements to perform moderate, high or waivedcomplexit y tests. HCG SERUM [id number] 21:46:00 Test Item Value Reference Range Interpretation Comments HCG SERUM QUAL (test code = SERUM NEGATIVE NEGATIVE HCGQL) CBC W/AUTO [id number] 21:38:00 Test Item Value Reference Range Interpretation Comments WHITE BLOOD CELL (test code = 8.2 x10 3/uL 4.5-11.0 N WBC) RED BLOOD CELL (test code = 4.27 x10 6/uL 3.54-5.02 N RBC) HEMOGLOBIN (test code = HGB) 11.0 g/dL 11.0-15.0 N HEMATOCRIT (test code = HCT) 35.9 % 33.0-45.0 N MEAN CELL VOLUME (test code = 84.1 fL 81.0-99.0 N MCV) MEAN CELL HGB (test code = MCH) 25.8 pg 27.0-33.0 L MEAN CELL HGB CONCETRATION 30.6 g/dL 33.0-37.0 L (test code = MCHC) RED CELL DISTRIBUTION WIDTH CV 15.9 % 11.5-14.5 H (test code = RDW) RED CELL DISTRIBUTION WIDTH SD 48.6 fL 37.0-54.0 N (test code = RDW-SD) PLATELET COUNT (test code = 314 x10 3/uL 150-400 N PLT) MEAN PLATELET VOLUME (test code 10.6 fL 7.0-9.0 H = MPV) NEUTROPHIL % (test code = NT%) 60.9 % 56.0-77.0 N IMMATURE GRANULOCYTE % (test 0.4 % 0.0-2.0 N code = IG%) LYMPHOCYTE % (test code = LY%) 27.6 % 14.0-32.0 N MONOCYTE % (test code = MO%) 7.1 % 4.8-9.0 N EOSINOPHIL % (test code = EO%) 3.5 % 0.3-3.7 N BASOPHIL % (test code = BA%) 0.5 % 0.0-2.0 N NUCLEATED RBC % (test code = 0.0 % 0-0 N NRBC%) NEUTROPHIL # (test code = NT#) 5.00 x10 3/uL 2.0-7.6 N IMMATURE GRANULOCYTE # (test 0.03 x10 3/uL 0.00-0.03 N code = IG#) LYMPHOCYTE # (test code = LY#) 2.26 x10 3/uL 1.0-3.8 N MONOCYTE # (test code = MO#) 0.58 x10 3/uL 0.1-0.8 N EOSINOPHIL # (test code = EO#) 0.29 x10 3/uL 0.0-0.2 H BASOPHIL # (test code = BA#) 0.04 x10 3/uL 0.0-0.2 N NUCLEATED RBC # (test code = 0.00 x10 3/uL 0.0-0.1 N NRBC#) MANUAL DIFF REQUIRED (test code NO = MDIFF) UA RFLX MICR CULT IF [id number] 21:18:00 Test Item Value Reference Range Interpretation Comments UA COLOR (test code = COLU) YELLOW YEL/STRAW UA APPEARANCE (test code = CLEAR CLEAR APPU) UA GLUCOSE DIPSTICK (test code NEGATIVE NEGATIVE = DGLUU) UA BILIRUBIN DIPSTICK (test NEGATIVE NEGATIVE code = BILU) UA KETONE DIPSTICK (test code NEGATIVE NEGATIVE = KETU) UA SPECIFIC GRAVITY (test code 1.011 1.005-1.030 N = SGU) UA BLOOD DIPSTICK (test code = 2+ NEGATIVE A WINSTON) UA PH DIPSTICK (test code = 5.0 5.0-7.0 N FOSTER) UA PROTEIN DIPSTICK (test code NEGATIVE NEGATIVE = PROU) UA UROBILINIOGEN DIPSTICK 0.2 mg/dL 0.2-1.0 (test code = URO) UA NITRITE DIPSTICK (test code NEGATIVE NEGATIVE = SU) UA LEUKOCYTE ESTERASE DIPSTICK NEGATIVE NEGATIVE (test code = LEUU) UA WBC (test code = WBCU) 4-9 WBC/HPF 0-3 A UA RBC (test code = RBCU) 0-3 RBC/HPF 0-3 UA WBC NO REFLEX (test code = 4-9 WBC/HPF 0-3 A WBCUCL) UA BACTERIA (test code = BACU) NONE SEEN /HPF NONE SEEN UA SQUAMOUS CELLS (test code = 0-5 /HPF NONE SEEN SQU) Indication for culture: Dysuria/FrequencySpecimen Description: CLEAN CATCHCT ABDOMEN AND PELVIS WITH [id number] 23:02:47 [facility] ASHBYB: 1975 Sex: FExam: CT abdomen an d pelvis with contrast.Location: H 12History: Nausea and vomitingCOMPARISON: 05/23/2021Technique: Enhanced spiral slices were taken from the domes of the diaphragm, through the pubic symphysis. Coronalreformations were performed. One or more of the following dose reduction techniques were used: Automated exposure control, adjustment of the mA and/or kV according to patient size, and/or utilization of iterative reconstruction technique.Findings:The liver is diffusely of decreased attenuation consistent fatty infiltration. No mass is seen. The intra-and extrahepatic biliary tree is normal. The hepatic and portal veins are patent. The gallbladder has been removed. The pancreas is normal. The pancreatic duct is normal in caliber. The spleen and adrenal glands are normal in size and shape.The kidneysare unremarkable. No perinephric fluid collections or hydronephrosis is seen.The large and small intestine are normal in caliber with a few diverticula in the colon noted. The appendix is normal. No inf lammatory change is identified.No lymphadenopathy is found in the abdomen or the pelvis. No free fluid is seen.The pelvic structures are unremarkable.Atherosclerosis, spondylosis and osteoarthritis arenoted. The lung bases are clear with stable subcentimeter nodules again noted.No incidental findingsare noted.Impression:1. No acute abdominal findings.2. Fatty liver.3. Status post cholecystectomy.4.Status post previous bariatric surgery.5. Diverticulosis coli.6. Stable exam.Electronically signed by: Mario Mcgrath MD 05/28/2021 11:02 PM SOLE RUFFER [id number] SERUM MONOCLONAL 2021-05-28 22:16:00 Test Item Value Reference Range Interpretation Comments PREG SRM (test code = PGS) NEGATIVE NEGATIVE PRO TIME AND [id number] 21:44:00 Test Item Value Reference Range Interpretation Comments PT (test code = 11.4 s 9.8-13.6 TT) INR (test code = 1.0 INR) INRH (test code = SUGGESTED THERAPEUTIC INRH) RANGE FOR INR: 2.5 - 3.5 For Patients with Prosthetic Valves or Patients with recurrent Thromboembolic Events 2.0 - 3.0 For Most Other Applications PTT (test code = 39.0 s 20.2-38.0 H PTT) PTTH (test code = To monitor the PTTH) effectiveness of heparin, we offer the Anti-Xa (Heparin Assay). It can be used for either unfractionated or LMW Heparin. Order Code is ANTI-XA COMPREHENSIVE METABOLIC [id number] 21:43:00 Test Item Value Reference Range Interpretation Comments GLUCOSE (test code 128 mg/dL 75-100 H = 06D) SODIUM (test code 142 mmol/L 136-145 = 01A) POTASSIUM (test 4.0 mmol/L 3.6-5.1 code = 01B) CHLORIDE (test 110 mmol/L 98-107 H code = 04A) CO2 (test code = 23 mmol/L - 02A) ANION GAP (test 13.0 mmol/L code = ANG) BUN (test code = 13 mg/dL 9-23 05D) CREATININE (test 1.1 mg/dL 0.6-1.0 H code = 03E) GFR (test code = 60 See_Comment L [Automated GFR) mL/min/1.73m\\S\\2 message] Th e system which generated this result transmit kody reference range : >=90. The reference range was not used to interpret this result as normal/abnormal . GFR 70 See_Comment L [Automated DOMINICAN (test mL/min/1.73m\\S\\2 message] The code = GFRAA) system which generated this result transmit kody reference range : >=90. The reference range was not used to interpret this result as normal/abnormal . EGFR (test code = eGFR BY EGFR) CKD-EPI CALCULATION IS NOT RECOMMENDED FOR PATIENTS UNDER 18 YEARS OF AGE. BUN/CREA (test 05-07 code = BCR) CALCIUM (test code 9.2 mg/dL 8.3-10.6 = 09D) BILI TOTAL (test 0.2 mg/dL 0.2-1.0 code = 11A) PROTEIN (test code 7.5 g/dL 5.7-8.2 = 07D) ALBUMIN (test code 4.4 g/dL 3.2-4.8 = 08D) GLOBULIN (test 3.1 g/dL 1.5-3.8 code = GLB) ALB/GLOB (test 1.4 1.0-2.6 code = AGRR) ALK PHOS (test 170 IU/L 46-116 H code = 35A) AST (test code = 22 IU/L See_Comment [Automated 30A) message] The system which generated this result transmit kody reference range : <=33. The reference range was not used to interpret this result as normal/abnormal . ALT (test code = 23 IU/L 10-49 31A) AMYLASE AND [id number] 21:43:00 Test Item Value Reference Range Interpretation Comments AMYLASE (test code = 10A) 45 U/L 30-118 LIPASE (test code = 60A) 22 IU/L 12-53 CARDIAC [id number] 21:42:00 Test Item Value Reference Range Interpretation Comments TROPONIN I (test code 3.57 pg/mL 0.00-45.20 = A84) Ref Range Change (test Please note the code = REF RANGE) change in reference range [id number] 21:32:00 Test Item Value Reference Range Interpretation Comments COLOR (test code = COLU) YELLOW YELLOW CLARITY (test code = CLA) CLEAR CLEAR GLUCOSE UR (test code = UA GLUCOSE) NEGATIVE NEGATIVE BILI UR (test code = BILE) NEGATIVE NEGATIVE KETONES UR (test code = JAIR) NEGATIVE NEGATIVE SP GRAVITY (test code = SPGR) 1.013 1.005-1.030 PH UR (test code = PH) 6.0 4.5-8.0 PROTEIN UR (test code = PU) NEGATIVE NEGATIVE UROBIL UR (test code = UROQ) 0.2 EU/dL 0.2-1.0 NITRITE UR (test code = NITRITE) NEGATIVE NEGATIVE BLOOD UR (test code = UA BLOOD) NEGATIVE NEGATIVE LEUK ES UR (test code = LEUK) NEGATIVE NEGATIVE AUAM (test code = AUAM) NO NO CBC (INCLUDES AUTOMATED DIFFERENTIAL)[id number] 21:26:00 Test Item Value Reference Range Interpretation Comments WBC (test code = WBC) 9.1 10\\S\\3/uL 4.5-11.0 RBC (test code = RBC) 4.47 10\\S\\6/uL 4.20-5.60 HGB (test code = HBG) 11.5 g/dL 12.0-15.5 L HCT (test code = HCT) 37.6 % 35.0-44.0 MCV (test code = MCV) 84.1 fL 81.0-99.0 MCH (test code = MCH) 25.7 pg 27.0-31.0 L MCHC (test code = MCHC) 30.6 g/dL 32.0-36.0 L RDW (test code = RDW) 15.9 % 11.5-14.5 H PLT (test code = PLT) 327 10\\S\\3/uL 130-400 MPV (test code = MPV) 11.3 fL 9.4-12.4 NEUTROP # (test code = NE#) 6.1 10\\S\\3/uL 1.6-8.0 LYMPH # (test code = LY#) 2.0 10\\S\\3/uL 1.1-3.5 MONOCYTE # (test code = MO#) 0.7 10\\S\\3/uL 0.0-1.1 EOSINOPH # (test code = EO#) 0.3 10\\S\\3/uL 0.0-0.7 BASOPHIL # (test code = BA#) 0.0 10\\S\\3/uL 0.0-0.3 IG # (test code = IG#) 0.01 10\\S\\3/uL 0.00-0.06 NRBC # (test code = NRBC#) 0.00 10\\S\\3/uL 0.00-0.01 NEUTROPH % (test code = NE%) 66.6 % 35.0-73.0 LYMPH % (test code = LY%) 22.0 % 20.0-55.0 MONO % (test code = MO%) 8.0 % 2.5-10.0 EOSINOPH % (test code = EO%) 3.0 % 0.0-5.0 BASOPHIL % (test code = BA%) 0.3 % 0.0-2.0 IG % (test code = IG%) 0.1 % 0.0-0.8 NRBC% (test code = NRBC%) 0.0 % 0.0-0.2 MANDIFF (test code = MDIFF) NO RBC MORPH (test code = RBCMOR) NORMAL URINALYSIS [id number] 15:06:00 Test Item Value Reference Range Interpretation Comments UA COLOR (test code = YELLOW COLU) UA APPEARANCE (test code CLEAR = APPU) UA GLUCOSE DIPSTICK (test NORMAL mg/dl NORMAL code = DGLUU) UA BILIRUBIN DIPSTICK NEGATIVE mg/dL NEGATIVE (test code = BILU) UA KETONE DIPSTICK (test NEGATIVE mg/dl NEGATIVE code = KETU) UA SPECIFIC GRAVITY (test 1.015 1.000-1.030 code = SGU) UA BLOOD DIPSTICK (test 25 Jorge Alberto/micL Jorge Alberto/micL NEGATIVE A code = WINSTON) UA PH DIPSTICK (test code 6.0 5.0-9.0 = FOSTER) UA PROTEIN DIPSTICK (test NEGATIVE mg/dl NEGATIVE code = PROU) UA UROBILINIOGEN DIPSTICK NORMAL mg/dl NORMAL (test code = URO) UA NITRITE DIPSTICK (test NEGATIVE NEGATIVE code = SU) UA LEUKOCYTE ESTERASE NEGATIVE Debi/micL NEGATIVE DIPSTICK (test code = LEUU) UA WBC (test code = WBCU) 0-3 WBC/HPF NONE UA RBC (test code = RBCU) 1-3 RBC/HPF 0-3 UA EPITHELIAL CELLS (test 2-5 EPI/HPF 0-3 A code = EPIU) UA BACTERIA (test code = MOD NONE BACU) Specimen comments: Clean CatchBASIC METABOLIC [id number] 13:25:00 Test Item Value Reference Range Interpretation Comments SODIUM (test code = NA) 140 mmol/l 134.0-147.0 N POTASSIUM (test code = K) 4.3 mmol/L 3.6-5.2 N CHLORIDE (test code = CL) 104 mmol/l 98.0-107.0 N CARBON DIOXIDE (test code = CO2) 24.9 mmol/l 21.0-33.0 N ANION GAP (test code = GAP) 15.4 0-20 N GLUCOSE (test code = GLU) 100 mg/dl 70.0-110.0 N BLOOD UREA NITROGEN (test code = 15 mg/dl 7.0-18.0 N BUN) CREATININE (test code = CREAT) 1.20 mg/dL 0.60-1.30 N GFR NON BLACK (test code = 51 mL/min 95-105 L GFRNONBLACK) GFR BLACK (test code = GFRBLACK) 62 mL/min 115-127 L CALCIUM (test code = CA) 9.7 mg/dl 8.0-10.5 N HEPATIC FUNCTION PANEL [id number] 13:25:00 Test Item Value Reference Range Interpretation Comments TOTAL PROTEIN (test code = PROT) 8.3 GM/DL 6.0-8.1 H ALBUMIN (test code = ALB) 3.5 gm/dL 3.2-4.7 N BILIRUBIN TOTAL (test code = 0.2 mg/dl 0.0-1.0 N BILT) BILIRUBIN DIRECT (test code = 0 mg/dl 0.0-0.3 N BILD) SGOT/AST (test code = AST) 14 Units/L 15-37 L SGPT/ALT (test code = ALT) 27 Units/L 12.0-78.0 N ALKALINE PHOSPHATASE TOTAL (test 164 Units/L 50.0-136.0 H code = ALKP) [id number] 13:25:00 Test Item Value Reference Range Interpretation Comments LIPASE (test code = LIP) 31 Units/L 65.0-230.0 L HCG SERUM [id number] 13:25:00 Test Item Value Reference Range Interpretation Comments HCG SERUM QUAL (test code = HCGQL) NEGATIVE NEGATIVE CBC W/AUTO [id number] 13:08:00 Test Item Value Reference Range Interpretation Comments WHITE BLOOD CELL (test code = 9.8 K/mm3 4.5-11.0 N WBC) RED BLOOD CELL (test code = 4.72 M/mm3 3.80-5.20 N RBC) HEMOGLOBIN (test code = HGB) 12.0 gm/dL 12.0-16.0 N HEMATOCRIT (test code = HCT) 39.1 % 36.0-48.0 N MEAN CELL VOLUME (test code = 82.8 UM3 82.0-99.0 N MCV) MEAN CELL HGB (test code = MCH) 25.4 UUG 25.5-32.5 L MEAN CELL HGB CONCETRATION 30.7 gm/dL 29.0-35.5 N (test code = MCHC) RED CELL DISTRIBUTION WIDTH 15.9 % 11.5-15.0 H (test code = RDW) RED CELL DISTRIBUTION WIDTH SD 48.0 fL 34.8-50.2 N (test code = RDW-SD) PLATELET COUNT (test code = 310 K/mm3 150-400 N PLT) MEAN PLATELET VOLUME (test code 10.5 fl 7.4-10.4 H = MPV) NEUTROPHIL % (test code = NT%) 77.3 % 49.0-76.0 H IMMATURE GRANULOCYTE % (test 0.4 % 0.0-0.4 N code = IG%) LYMPHOCYTE % (test code = LY%) 13.9 % 23.0-38.0 L MONOCYTE % (test code = MO%) 6.0 % 1.0-10.0 N EOSINOPHIL % (test code = EO%) 2.1 % 1.0-5.0 N BASOPHIL % (test code = BA%) 0.3 % 0.0-1.0 N NUCLEATED RBC % (test code = 0.0 % 0.0-0.1 N NRBC%) NEUTROPHIL # (test code = NT#) 7.6 K/mm3 2.4-6.3 H IMMATURE GRANULOCYTE # (test 0.04 x10 3/uL 0.00-0.07 N code = IG#) LYMPHOCYTE # (test code = LY#) 1.4 K/mm3 1.2-4.0 N MONOCYTE # (test code = MO#) 0.6 K/mm3 0.0-0.6 N EOSINOPHIL # (test code = EO#) 0.2 K/MM3 0.0-0.7 N BASOPHIL # (test code = BA#) 0.0 K/mm3 0.0-0.2 N NUCLEATED RBC # (test code = 0.00 X10 3uL 0.00-0.01 N NRBC#) - CT ABD PELVIS W/O [id number] 11:29:00 [facility] [place] FABY LIANA MACEDO : 1975 Sex: F FAX: Ruth Ann Brennan MD [phone] [place]: St: REG Name: LIANA ASHBY [facility] : 1975 Age/S: 46/F [address] Unit: [id number] Loc: [address] Phys: [place] [id number] Acct: [id number] Dis Date: Status: REG ER PHONE #: [phone] Exam Date: 05/28/2021 1108 FAX #: Reason: BILAT FLANK PAIN EXAMS: CPT CODE: [id number] CT ABD PELVIS W/O CONT [id number] EXAMINATION: - CT ABD PELVIS W/O CONT. LOCATION: B2. HISTORY: BILAT FLANK PAIN. COMPARISON: CT abdomen and pelvis dated 05/17/2021 and 08/07/2018. Count of previous CT and cardiac nuclear medicine studies for the past 12 months: 16. TECHNIQUE: CT abdomen and pelvis was performed without the use of IV contrast. Sagittal and coronal reconstructed images were available for review. This exam was performed according to our departmental dose-optimization program, which includes automated exposure control, adjustment of the mA and/or kV according to patient size, and/or use of iterative reconstruction technique. FINDINGS: Lower chest: Several pulmonary nodules are seen in bilateral lung bases measuring up to 5 mm the right lower lobe, unchanged since 08/07/2018. Heart size is normal. Abdomen: There has been prior cholecystectomy. 9 mm calcified splenic granuloma is present. 0.7 cm hemorrhagic cyst is seen in the right kidney. The noncontrast appearance of the liver, pancreas, bilateral adrenal glands, and leftkidney is within normal limits. There is no evidence of nephrolithiasis or obstructive urolithiasis.There has been prior gastric and small bowel surgery. There is no evidence of bowel obstruction. Theappendix appears normal. No pneumoperitoneum or ascites is identified. There is no mesenteric or retroperitoneal adenopathy. 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 Pelvis: The urinary bladder appears normal. No inguinal adenopathy is identified. Bones/soft tissues: 1.0 cm well-defined lucency inthe left ilium is unchanged. 1.1 cm PAGE 1 Signed Report (CONTINUED) FAX: Ruth Ann Brennan MD [phone] [place]: St: REG -- Name: LIANA ASHBY [facility] : 1975 Age/S: 46/F [address] [facility] Unit: [id number] Loc: [address] Phys: [place] [id number] Acct: [id number] Dis Date: Status: REG ER PHONE #: [phone] Exam Date: 05/28/2021 1108 FAX #: [phone] Reason: BILAT FLANK PAIN EXAMS: CPT CODE: [id number] CT ABD PELVIS W/O CONT 92536 <Continued> focal sclerosis in the left T8 transverse process is also unchanged. No acute osseous abnormality is identified. No aggressive lytic or blastic lesions are seen. IMPRESSION: No acute abdominopelvic abnormality is identified. No evidence of nephrolithiasis or obstructive urolithiasis. Incidental findings as described. at 1129 Reported and signed by: Cynthia Lancaster M.D. CC: Ruth Ann Brennan MD Technologist: HILDA PELAYO; [facility] WEBBER [facility]: 05/28/2021 (8963) [email or web address] Orig Print D/T: S: 05/28/2021 (1132 PAGE 2 [facility]2022-01-07 06:18:00 Test Item Value Reference Range Interpretation Comments Glucose Lvl (test code = Glucose Lvl) 100 70-99 [place] 559312-01-07 06:18:00 Test Item Value Reference Range Interpretation Comments BUN (test code = BUN) 17 7-22 [place] 559312-01-07 06:18:00 Test Item Value Reference Range Interpretation Comments Creatinine Lvl (test code = Creatinine 1.20 0.50-1.40 Lvl) [place] 559312-01-07 06:18:00 Test Item Value Reference Range Interpretation Comments Sodium Lvl (test code = Sodium Lvl) 139 135-145 [place] 559312-01-07 06:18:00 Test Item Value Reference Range Interpretation Comments Potassium Lvl (test code = Potassium 4.2 3.5-5.1 Lvl) [place] 559312-01-07 06:18:00 Test Item Value Reference Range Interpretation Comments Chloride Lvl (test code = Chloride Lvl) 103 95-109 [place] 559312-01-07 06:18:00 Test Item Value Reference Range Interpretation Comments CO2 (test code = CO2) 28 24-32 [place] 559312-01-07 06:18:00 Test Item Value Reference Range Interpretation Comments Calcium Lvl (test code = Calcium Lvl) 9.5 8.5-10.5 [place] 559312-01-07 06:18:00 Test Item Value Reference Range Interpretation Comments Total Protein (test code = Total 7.9 6.4-8.4 Protein) [place] 559312-01-07 06:18:00 Test Item Value Reference Range Interpretation Comments Albumin Lvl (test code = Albumin Lvl) 3.3 3.5-5.0 [place] 559312-01-07 06:18:00 Test Item Value Reference Range Interpretation Comments ALT (test code = ALT) 41 See_Comment [Auto mated message] The system which ge nerated this result transmit kody reference range : <=65. The reference range was not used to interpr et this result as michell l/abnormal. [place] 559312-01-07 06:18:00 Test Item Value Reference Range Interpretation Comments AST (test code = AST) 29 See_Comment [Auto mated message] The system which ge nerated this result transmit koyd reference range : <=37. The reference range was not used to interpr et this result as michell l/abnormal. [place] 559312-01-07 06:18:00 Test Item Value Reference Range Interpretation Comments Alk Phos (test code = Alk Phos) 166 39-136 [place] 559312-01-07 06:18:00 Test Item Value Reference Range Interpretation Comments Bili Total (test code = Bili Total) 0.1 0.2-1.3 [place] 559312-01-07 06:18:00 Test Item Value Reference Range Interpretation Comments AGAP (test code = AGAP) 12.2 10.0-20.0 [place] 559312-01-07 06:18:00 Test Item Value Reference Range Interpretation Comments B/C Ratio (test code = B/C Ratio) 14 1 6-25 [place] 559312-01-07 06:18:00 Test Item Value Reference Range Interpretation Comments Globulin (test code = Globulin) 4.6 2.7-4.2 [place] 559312-01-07 06:18:00 Test Item Value Reference Range Interpretation Comments A/G Ratio (test code = A/G Ratio) 0.7 1 0.7-1.6 [place] 559312-01-07 06:18:00 Test Item Value Reference Range Interpretation Comments eGFR (test code = eGFR) 55 [place] 559312-01-07 06:18:00 Test Item Value Reference Range Interpretation Comments Lipase Lvl (test code = Lipase Lvl) 46 73-393 [place] 765442-01-07 06:18:00 Test Item Value Reference Range Interpretation Comments WBC (test code = WBC) 8.3 3.7-10.4 [place] 765442-01-07 06:18:00 Test Item Value Reference Range Interpretation Comments RBC (test code = RBC) 4.25 4.20-5.40 [place] 765442-01-07 06:18:00 Test Item Value Reference Range Interpretation Comments Hgb (test code = Hgb) 10.9 12.0-16.0 [place] 765442-01-07 06:18:00 Test Item Value Reference Range Interpretation Comments Hct (test code = Hct) 33.4 36.0-48.0 [place] 765442-01-07 06:18:00 Test Item Value Reference Range Interpretation Comments MCV (test code = MCV) 78.6 80.0-98.0 [place] 765442-01-07 06:18:00 Test Item Value Reference Range Interpretation Comments MCH (test code = MCH) 25.6 pg 27.0-31.0 [place] 765442-01-07 06:18:00 Test Item Value Reference Range Interpretation Comments MCHC (test code = MCHC) 32.5 32.0-36.0 [place] 765442-01-07 06:18:00 Test Item Value Reference Range Interpretation Comments RDW (test code = RDW) 16.3 11.5-14.5 [place] 765442-01-07 06:18:00 Test Item Value Reference Range Interpretation Comments Platelet (test code = Platelet) 292 133-450 [facility]IfxzxfpBEVSQTZUBI4049-33-28 06:18:00 Test Item Value Reference Range Interpretation Comments MPV (test code = MPV) 8.6 7.4-10.4 [place] 765442-01-07 06:18:00 Test Item Value Reference Range Interpretation Comments Segs (test code = Segs) 63.2 45.0-75.0 [place] 765442-01-07 06:18:00 Test Item Value Reference Range Interpretation Comments Lymphocytes (test code = Lymphocytes) 25.2 20.0-40.0 [place] 765442-01-07 06:18:00 Test Item Value Reference Range Interpretation Comments Monocytes (test code = Monocytes) 7.9 2.0-12.0 [place] 765442-01-07 06:18:00 Test Item Value Reference Range Interpretation Comments Eosinophils (test code = 3.1 See_Comment [A utomated message] The Eosinophils) system which ge nerated this result tra nsmitted reference range : <=4.0. The reference r belinda was not used to int erpret this result as normal/abnormal . [facility]bergIznjzrfHHMQQHWNBB1417-06-23 06:18:00 Test Item Value Reference Range Interpretation Comments Basophils (test code = 0.5 See_Comment [Aut omated message] The Basophils) system which ge nerated this result tra nsmitted reference range : <=1.0. The reference r belinda was not used to int erpret this result as normal/abnormal . [facility] KlebergNoybcjqXPUFANCFMN3117-17-77 06:18:00 Test Item Value Reference Range Interpretation Comments Neutrophils # (test code = Neutrophils 5.2 1.5-8.1 #) [facility] KlebergAxphtcdCGGURWBDXH8202-37-79 06:18:00 Test Item Value Reference Range Interpretation Comments Lymphocytes # (test code = Lymphocytes 2.1 1.0-5.5 #) [facility] KlebergYjdoqxiSJGAZFFQYH2141-15-69 06:18:00 Test Item Value Reference Range Interpretation Comments Monocytes # (test code 0.7 See_Comment [Aut omated message] The = Monocytes #) system which generated this result tra nsmitted reference range : <=0.8. The reference r belinda was not used to int erpret this result as normal/abnormal . [facility] KlebergUercgnjNNZCSJXBPB9887-15-12 06:18:00 Test Item Value Reference Range Interpretation Comments Eosinophils # (test code 0.3 See_Comment [A utomated message] The = Eosinophils #) system whic h generated this result tra nsmitted reference range : <=0.5. The reference r belinda was not used to int erpret this result as normal/abnormal . [facility] KlebergFvgslsjFEALCPHAWH4160-63-50 06:18:00 Test Item Value Reference Range Interpretation Comments Microcyte (test code = 1+ *ABN*(05/25/21 Microcyte) 12:18 AM) [facility] AND [id number] 06:18:00 Test Item Value Reference Range Interpretation Comments UA Color (test code = Yellow *NA*(05/25/21 UA Color) 12:18 AM) [facility] AND [id number] 06:18:00 Test Item Value Reference Range Interpretation Comments UA Turbidity (test code = Clear (05/25/21 12:18 UA Turbidity) AM) [facility] AND [id number] 06:18:00 Test Item Value Reference Range Interpretation Comments UA Spec Grav (test code = UA Spec 1.020 1 Grav) [facility] AND [id number] 06:18:00 Test Item Value Reference Range Interpretation Comments UA pH (test code = UA pH) 6.0 1 5.0-8.0 [facility] AND [id number] 06:18:00 Test Item Value Reference Range Interpretation Comments UA Protein (test code Negative (05/25/21 12:18 = UA Protein) AM) [facility] AND [id number] 06:18:00 Test Item Value Reference Range Interpretation Comments UA Glucose (test code Negative (05/25/21 12:18 = UA Glucose) AM) [facility] AND [id number] 06:18:00 Test Item Value Reference Range Interpretation Comments UA Ketones (test code Negative *NA*(05/25/21 = UA Ketones) 12:18 AM) [facility] AND [id number] 06:18:00 Test Item Value Reference Range Interpretation Comments UA Bili (test code = Negative *NA*(05/25/21 UA Bili) 12:18 AM) [facility] AND [id number] 06:18:00 Test Item Value Reference Range Interpretation Comments UA Blood (test code = Small *ABN*(05/25/21 UA Blood) 12:18 AM) [facility] AND [id number] 06:18:00 Test Item Value Reference Range Interpretation Comments UA Urobilinogen (test code = UA 0.2 0.1-1.0 Urobilinogen) [facility] AND [id number] 06:18:00 Test Item Value Reference Range Interpretation Comments UA Nitrite (test code Negative (05/25/21 12:18 = UA Nitrite) AM) [facility] AND [id number] 06:18:00 Test Item Value Reference Range Interpretation Comments UA Leuk Est (test code Trace *ABN*(05/25/21 = UA Leuk Est) 12:18 AM) [facility] AND [id number] 06:18:00 Test Item Value Reference Range Interpretation Comments UA Sq Epi (test code = UA Sq Epi) Few /LPF [facility] AND [id number] 06:18:00 Test Item Value Reference Range Interpretation Comments UA WBC (test code = UA WBC) 3-5 /HPF [facility] AND [id number] 06:18:00 Test Item Value Reference Range Interpretation Comments UA RBC (test code = UA RBC) 3-5 /HPF [facility] AND [id number] 06:18:00 Test Item Value Reference Range Interpretation Comments UA Bacteria (test code = UA Few /HPF Bacteria) [facility] AND [id number] 06:18:00 Test Item Value Reference Range Interpretation Comments UA Mucus (test code = None Seen (05/25/21 UA Mucus) 12:18 AM) [place] 559312-01-07 06:18:00 Test Item Value Reference Range Interpretation Comments Glucose Lvl (test code = Glucose Lvl) 100 70-99 [place] 559312-01-07 06:18:00 Test Item Value Reference Range Interpretation Comments BUN (test code = BUN) 17 -22 [place] 559312-01-07 06:18:00 Test Item Value Reference Range Interpretation Comments Creatinine Lvl (test code = Creatinine 1.20 0.50-1.40 Lvl) [facility]2022-01-07 06:18:00 Test Item Value Reference Range Interpretation Comments Sodium Lvl (test code = Sodium Lvl) 139 135-145 [place] 559312-01-07 06:18:00 Test Item Value Reference Range Interpretation Comments Potassium Lvl (test code = Potassium 4.2 3.5-5.1 Lvl) [place] 559312-01-07 06:18:00 Test Item Value Reference Range Interpretation Comments Chloride Lvl (test code = Chloride Lvl) 103 95-109 [place] 559312-01-07 06:18:00 Test Item Value Reference Range Interpretation Comments CO2 (test code = CO2) 28 24-32 [place] 559312-01-07 06:18:00 Test Item Value Reference Range Interpretation Comments Calcium Lvl (test code = Calcium Lvl) 9.5 8.5-10.5 [place] 559312-01-07 06:18:00 Test Item Value Reference Range Interpretation Comments Total Protein (test code = Total 7.9 6.4-8.4 Protein) [place] 559312-01-07 06:18:00 Test Item Value Reference Range Interpretation Comments Albumin Lvl (test code = Albumin Lvl) 3.3 3.5-5.0 [place] 559312-01-07 06:18:00 Test Item Value Reference Range Interpretation Comments ALT (test code = ALT) 41 See_Comment [Auto mated message] The system which ge nerated this result transmit kody reference range : <=65. The reference range was not used to interpr et this result as michell l/abnormal. [facility] [id number] 06:18:00 Test Item Value Reference Range Interpretation Comments AST (test code = AST) 29 See_Comment [Auto mated message] The system which ge nerated this result transmit kody reference range : <=37. The reference range was not used to interpr et this result as michell l/abnormal. [facility] [id number] 06:18:00 Test Item Value Reference Range Interpretation Comments Alk Phos (test code = Alk Phos) 166 39-136 [place] 559312-01-07 06:18:00 Test Item Value Reference Range Interpretation Comments Bili Total (test code = Bili Total) 0.1 0.2-1.3 [facility] [id number] 06:18:00 Test Item Value Reference Range Interpretation Comments AGAP (test code = AGAP) 12.2 10.0-20.0 [facility] [id number] 06:18:00 Test Item Value Reference Range Interpretation Comments B/C Ratio (test code = B/C Ratio) 14 1 6-25 [facility] [id number] 06:18:00 Test Item Value Reference Range Interpretation Comments Globulin (test code = Globulin) 4.6 2.7-4.2 [facility] [id number] 06:18:00 Test Item Value Reference Range Interpretation Comments A/G Ratio (test code = A/G Ratio) 0.7 1 0.7-1.6 [facility] [id number] 06:18:00 Test Item Value Reference Range Interpretation Comments eGFR (test code = eGFR) 55 [facility] [id number] 06:18:00 Test Item Value Reference Range Interpretation Comments Lipase Lvl (test code = Lipase Lvl) 46 73-393 [facility]bergPeehoswRIZOGUEUNT7423-19-28 06:18:00 Test Item Value Reference Range Interpretation Comments WBC (test code = WBC) 8.3 3.7-10.4 [facility] [id number] 06:18:00 Test Item Value Reference Range Interpretation Comments RBC (test code = RBC) 4.25 4.20-5.40 [place] 765442-01-07 06:18:00 Test Item Value Reference Range Interpretation Comments Hgb (test code = Hgb) 10.9 12.0-16.0 [facility] [id number] 06:18:00 Test Item Value Reference Range Interpretation Comments Hct (test code = Hct) 33.4 36.0-48.0 [facility] K[id number] 06:18:00 Test Item Value Reference Range Interpretation Comments MCV (test code = MCV) 78.6 80.0-98.0 [facility]bergIcqsrnyKCLEQRAXQB8766-78-76 06:18:00 Test Item Value Reference Range Interpretation Comments MCH (test code = MCH) 25.6 pg 27.0-31.0 [facility] Kl[id number] 06:18:00 Test Item Value Reference Range Interpretation Comments MCHC (test code = MCHC) 32.5 32.0-36.0 [facility]bergIbbhklwSUSWGDWQWT1508-74-35 06:18:00 Test Item Value Reference Range Interpretation Comments RDW (test code = RDW) 16.3 11.5-14.5 [facility] KlebergFybwtfjZJEUWJIBIF7301-68-72 06:18:00 Test Item Value Reference Range Interpretation Comments Platelet (test code = Platelet) 292 133-450 [facility] KlebergUbngckjAOEBLMZAXC6465-76-14 06:18:00 Test Item Value Reference Range Interpretation Comments MPV (test code = MPV) 8.6 7.4-10.4 [facility] KlebergEyhynawQZXOOYQMTQ4515-26-54 06:18:00 Test Item Value Reference Range Interpretation Comments Segs (test code = Segs) 63.2 45.0-75.0 [facility] KlebergXtotyqfVCJBCYMLFM6087-78-21 06:18:00 Test Item Value Reference Range Interpretation Comments Lymphocytes (test code = Lymphocytes) 25.2 20.0-40.0 [place] 765442-01-07 06:18:00 Test Item Value Reference Range Interpretation Comments Monocytes (test code = Monocytes) 7.9 2.0-12.0 [facility] KlebergBvdworxMNLTGMWQSM0006-27-91 06:18:00 Test Item Value Reference Range Interpretation Comments Eosinophils (test code = 3.1 See_Comment [A utomated message] The Eosinophils) system which ge nerated this result tra nsmitted reference range : <=4.0. The reference r belinda was not used to int erpret this result as normal/abnormal . [facility]bergBtpnxwbWLEKVDLQUV8519-22-60 06:18:00 Test Item Value Reference Range Interpretation Comments Basophils (test code = 0.5 See_Comment [Aut omated message] The Basophils) system which ge nerated this result tra nsmitted reference range : <=1.0. The reference r belinda was not used to int erpret this result as normal/abnormal . [facility] KlebergPfshcilMTGCBXTRVK4118-83-66 06:18:00 Test Item Value Reference Range Interpretation Comments Neutrophils # (test code = Neutrophils 5.2 1.5-8.1 #) [facility]bergUdjwfqjXOWHVVTJGC9185-51-06 06:18:00 Test Item Value Reference Range Interpretation Comments Lymphocytes # (test code = Lymphocytes 2.1 1.0-5.5 #) [facility] KlebergAchovtrZKHKBBAFQF8404-54-14 06:18:00 Test Item Value Reference Range Interpretation Comments Monocytes # (test code 0.7 See_Comment [Aut omated message] The = Monocytes #) system which generated this result tra nsmitted reference range : <=0.8. The reference r belinda was not used to int erpret this result as normal/abnormal . [facility] [id number] 06:18:00 Test Item Value Reference Range Interpretation Comments Eosinophils # (test code 0.3 See_Comment [A utomated message] The = Eosinophils #) system whic h generated this result tra nsmitted reference range : <=0.5. The reference r belinda was not used to int erpret this result as normal/abnormal . [place] 765442-01-07 06:18:00 Test Item Value Reference Range Interpretation Comments Microcyte (test code = 1+ *ABN*(05/25/21 Microcyte) 12:18 AM) [facility] AND [id number] 06:18:00 Test Item Value Reference Range Interpretation Comments UA Color (test code = Yellow *NA*(05/25/21 UA Color) 12:18 AM) [facility] AND [id number] 06:18:00 Test Item Value Reference Range Interpretation Comments UA Turbidity (test code = Clear (05/25/21 12:18 UA Turbidity) AM) [facility] AND [id number] 06:18:00 Test Item Value Reference Range Interpretation Comments UA Spec Grav (test code = UA Spec 1.020 1 Grav) [facility] AND [id number] 06:18:00 Test Item Value Reference Range Interpretation Comments UA pH (test code = UA pH) 6.0 1 5.0-8.0 [facility] AND [id number] 06:18:00 Test Item Value Reference Range Interpretation Comments UA Protein (test code Negative (05/25/21 12:18 = UA Protein) AM) [facility] AND [id number] 06:18:00 Test Item Value Reference Range Interpretation Comments UA Glucose (test code Negative (05/25/21 12:18 = UA Glucose) AM) [facility] AND [id number] 06:18:00 Test Item Value Reference Range Interpretation Comments UA Ketones (test code Negative *NA*(05/25/21 = UA Ketones) 12:18 AM) [facility] AND [id number] 06:18:00 Test Item Value Reference Range Interpretation Comments UA Bili (test code = Negative *NA*(05/25/21 UA Bili) 12:18 AM) [facility] AND [id number] 06:18:00 Test Item Value Reference Range Interpretation Comments UA Blood (test code = Small *ABN*(05/25/21 UA Blood) 12:18 AM) [facility] AND [id number] 06:18:00 Test Item Value Reference Range Interpretation Comments UA Urobilinogen (test code = UA 0.2 0.1-1.0 Urobilinogen) [facility] AND [id number] 06:18:00 Test Item Value Reference Range Interpretation Comments UA Nitrite (test code Negative (05/25/21 12:18 = UA Nitrite) AM) [facility] [id number] 06:18:00 Test Item Value Reference Range Interpretation Comments UA Leuk Est (test code Trace *ABN*(05/25/21 = UA Leuk Est) 12:18 AM) [facility] [id number] 06:18:00 Test Item Value Reference Range Interpretation Comments UA Sq Epi (test code = UA Sq Epi) Few /LPF [facility] [id number] 06:18:00 Test Item Value Reference Range Interpretation Comments UA WBC (test code = UA WBC) 3-5 /HPF [facility] [id number] 06:18:00 Test Item Value Reference Range Interpretation Comments UA RBC (test code = UA RBC) 3-5 /HPF [facility] [id number] 06:18:00 Test Item Value Reference Range Interpretation Comments UA Bacteria (test code = UA Few /HPF Bacteria) [facility] [id number] 06:18:00 Test Item Value Reference Range Interpretation Comments UA Mucus (test code = None Seen (05/25/21 UA Mucus) 12:18 AM) [facility] W/PA [id number] 21:52:00 [facility] 1975 [place] [address] Patient Name: LIANA ASHBY MR #: [id number] : 1975 Age/Sex: 46/F Req #: [id number] Adm Physician: Ordered by: TOO HOLBROOK MD Report #: [id number] Location: ER Room/Bed: __ Procedure: [id number] DX/ABDOMEN ACUTE SERIES W/PA CXR Exam Date: 05/24/21 Exam Time: 2119 REPORT STATUS: Signed ABDOMEN ACUTE SERIES W/PA CXR CLINICAL HISTORY: Abdominal pain and vomiting TECHNIQUE: Supine and erect abdomen and frontal chest views. COMPARISON: CT abdomen pelvis 04/07/2021 IMPRESSION: Abdomen: There is no evidence of free air or air-fluid levels. The bowel gas pattern is nonspecific andnonobstructive. Average fecal burden. Bowel anastomotic sutures present. Chest: Lingular scarring oratelectasis is similar to prior CT abdomen and pelvis exam. The remainder of the lungs are clear. The cardiomediastinal silhouette is within normal limits for size.The visualized bones are intact. Signed by: Maurilio Argueta on 05/24/2021 9:52 PM Dictated By: MAURILIO ARGUETA MD 53 Transcribed By: PSCRIBE on 05/24/212151 COPY TO: TOO HOLBROOK MD Serum or plasma amylase measurement (enzymatic activity/volume)2021-05-24 21:50:00 Test Item Value Reference Range Interpretation Comments Amylase Level (test code = 1798-8) 48 25-125 [facility] National Provider IdentifierBlood leukocytes automated count (number/volume)2021-05-24 20:50:00 Test Item Value Reference Range Interpretation Comments White Blood Count (test code = 6690-2) 9.96 4.8-10.8 [facility] erythrocytes automated count (number/volume)2021-05-24 20:50:00 Test Item Value Reference Range Interpretation Comments Red Blood Count (test code = 789-8) 4.25 3.6-5.1 [facility]ball[facility] hemoglobin measurement (moles/volume) 2021-05-24 20:50:00 Test Item Value Reference Range Interpretation Comments Hemoglobin (test code = 10527-5) 10.7 12.0-16.0 [facility] TomballAutomated blood hematocrit (volume fraction) 2021-05-24 20:50:00 Test Item Value Reference Range Interpretation Comments Hematocrit (test code = 4544-3) 36.2 34.2-44.1 [facility]ballAutomated erythrocyte mean corpuscular volume 2021-05-24 20:50:00 Test Item Value Reference Range Interpretation Comments Mean Corpuscular Volume (test code = 85.2 81-99 787-2) [facility]ballAutomated erythrocyte mean corpuscular hemoglobin (mass per erythrocyte)2021-05-24 20:50:00 Test Item Value Reference Range Interpretation Comments Mean Corpuscular Hemoglobin (test code 25.2 28-32 = 785-6) [facility]ballAutomated erythrocyte mean corpuscular hemoglobin concentration measurement (mass/volume)2021-05-24 20:50:00 Test Item Value Reference Range Interpretation Comments Mean Corpuscular Hemoglobin Concent 29.6 31-35 (test code = 786-4) [facility] TomballRDW [id number]-[id number] 20:50:00 Test Item Value Reference Range Interpretation Comments Red Cell Distribution Width (test code 15.7 11.7-14.4 = 92762-9) [facility] TomballAutomated blood platelet count (count/volume) 2021-05-24 20:50:00 Test Item Value Reference Range Interpretation Comments Platelet Count (test code = 777-3) 315 140-360 [facility] TomballAutomated blood segmented neutrophil count as percentage of total ufyeuxnpqe5431-72-24 20:50:00 Test Item Value Reference Range Interpretation Comments Neutrophils (%) (Auto) (test code = 64.3 38.7-80.0 12549-0) [facility] TomballAutomated blood lymphocyte count as percentage ot total cotyuviwit9415-94-79 20:50:00 Test Item Value Reference Range Interpretation Comments Lymphocytes (%) (Auto) (test code = 23.2 18.0-39.1 736-9) [facility] TomballAutomated blood monocyte count as percentage of total awtsibauro4332-00-74 20:50:00 Test Item Value Reference Range Interpretation Comments Monocytes (%) (Auto) (test code = 8.6 4.4-11.3 5905-5) [facility] TomballAutomated blood eosinophil count as percentage of total dlxekzjxzs6112-92-60 20:50:00 Test Item Value Reference Range Interpretation Comments Eosinophils (%) (Auto) (test code = 3.2 0.0-6.0 713-8) [facility] TomballAutomated blood basophil count as percentage of total sarvpocrgs1368-86-28 20:50:00 Test Item Value Reference Range Interpretation Comments Basophils (%) (Auto) (test code = 0.3 0.0-1.0 706-2) [facility] TomballFluoroscopic procedure less than one hour sfhixmbl1072-83-70 20:50:00 Test Item Value Reference Range Interpretation Comments IM GRANULOCYTES % (test code = IM 0.4 0.0-1.0 GRANULOCYTES %) [facility] TomballAutomated blood neutrophil gvmef6530-37-66 20:50:00 Test Item Value Reference Range Interpretation Comments Neutrophils # (Auto) (test code = 6.4 2.1-6.9 751-8) [facility]ballBlood lymphocytes count (number/volume) 2021-05-24 20:50:00 Test Item Value Reference Range Interpretation Comments Lymphocytes # (Auto) (test code = 2.3 1.0-3.2 38111-0) [facility]ballBlood monocytes automated count (number/volume)2021-05-24 20:50:00 Test Item Value Reference Range Interpretation Comments Monocytes # (Auto) (test code = 742-7) 0.9 0.2-0.8 [facility] TomballAutomated blood eosinophil [id number] 20:50:00 Test Item Value Reference Range Interpretation Comments Eosinophils # (Auto) (test code = 0.3 0.0-0.4 711-2) [facility] TomballAutomated blood basophil count (count/volume) 2021-05-24 20:50:00 Test Item Value Reference Range Interpretation Comments Basophils # (Auto) (test code = 704-7) 0.0 0.0-0.1 [facility] TomballFluoroscopic procedure less than one hour askzpjvx8482-71-63 20:50:00 Test Item Value Reference Range Interpretation Comments Absolute Immature Granulocyte (auto 0.04 0-0.1 (test code = Absolute Immature Granulocyte (auto) [facility] sodium measurement (moles/volume)2021-05-24 20:50:00 Test Item Value Reference Range Interpretation Comments Sodium Level (test code = 2951-2) 139 136-145 [facility]ere[facility] plasma potassium measurement (moles/volume)2021-05-24 20:50:00 Test Item Value Reference Range Interpretation Comments Potassium Level (test code = 2823-3) 3.8 3.5-5.1 [facility]ere[facility] or plasma chloride measurement (moles/volume)2021-05-24 20:50:00 Test Item Value Reference Range Interpretation Comments Chloride Level (test code = 2075-0) 106 98-107 [facility]ererum or plasma carbon dioxide, total measurement (moles/volume)2021-05-24 20:50:00 Test Item Value Reference Range Interpretation Comments Carbon Dioxide Level (test code = 23 22-29 8-9) [facility]ere[facility] plasma anion [id number] 20:50:00 Test Item Value Reference Range Interpretation Comments Anion Gap (test code = 45490-3) 13.8 8-16 [facility]ere[facility] plasma urea nitrogen measurement (mass/volume)2021-05-24 20:50:00 Test Item Value Reference Range Interpretation Comments Blood Urea Nitrogen (test code = 18 7- 3094-0) [facility]ere[facility] plasma creatinine measurement (mass/volume)2021-05-24 20:50:00 Test Item Value Reference Range Interpretation Comments Creatinine (test code = 2160-0) 1.19 0.57-1.11 [facility]ererum or plasma urea nitrogen/creatinine mass mggqe8816-59-34 20:50:00 Test Item Value Reference Range Interpretation Comments BUN/Creatinine Ratio (test code = 15 6 3097-3) [facility] TomballEstimated glomerular filtration rate (GFR) cyztwmwfcgcxv8931-17-20 20:50:00 Test Item Value Reference Range Interpretation Comments Estimat Glomerular 49 See_Comment [Automat ed message] The Filtration Rate (test system which generated code = 249738227) this resul t transmitted reference range : 60-. The reference r belinda was not used to int erpret this result as normal/abnormal . [facility] TomballGlucose chdwwmlulpr7824-34-69 20:50:00 Test Item Value Reference Range Interpretation Comments Glucose Level (test code = FHS5685) 114 74-118 [facility]ere[facility] plasma calcium measurement (mass/volume)2021-05-24 20:50:00 Test Item Value Reference Range Interpretation Comments Calcium Level (test code = 69965-0) 9.7 8.4-10.2 [facility]ererum or plasma total bilirubin measurement (mass/volume)2021-05-24 20:50:00 Test Item Value Reference Range Interpretation Comments Total Bilirubin (test code = 1975-2) 0.1 0.2-1.2 [facility] TomballFluoroscopic procedure less than one hour wjtxtera9816-72-83 20:50:00 Test Item Value Reference Range Interpretation Comments Aspartate Amino Transf (AST/SGOT) (test 26 5-34 code = Aspartate Amino Transf (AST/SGOT)) [facility]ererum or plasma alanine aminotransferase measurement (enzymatic activity/volume)2021-05-24 20:50:00 Test Item Value Reference Range Interpretation Comments Alanine Aminotransferase (ALT/SGPT) 31 0-55 (test code = 1742-6) [facility]ererum or plasma protein measurement (mass/volume)2021-05-24 20:50:00 Test Item Value Reference Range Interpretation Comments Total Protein (test code = 2885-2) 7.7 6.5-8.1 [facility]ererum or plasma albumin measurement (mass/volume)2021-05-24 20:50:00 Test Item Value Reference Range Interpretation Comments Albumin (test code = 1751-7) 3.5 3.5-5.0 [facility] TomballPlasma globulin measurement (mass/volume) 2021-05-24 20:50:00 Test Item Value Reference Range Interpretation Comments Globulin (test code = 08729-1) 4.2 2.3-3.5 [facility]ererum or plasma albumin/globulin mass ratio 2021-05-24 20:50:00 Test Item Value Reference Range Interpretation Comments Albumin/Globulin Ratio (test code = 0.8 0.8-2.0 1759-0) [facility]ererum or plasma alkaline phosphatase measurement (enzymatic activity/volume)2021-05-24 20:50:00 Test Item Value Reference Range Interpretation Comments Alkaline Phosphatase (test code = 154 40-150 6768-6) [facility]ererum or plasma lipase measurement (enzymatic activity/volume)2021-05-24 20:50:00 Test Item Value Reference Range Interpretation Comments Lipase (test code = 3040-3) 9 8-78 [facility] Centererum or plasma choriogonadotropin ( test) ppufatduf7116-08-71 20:50:00 Test Item Value Reference Range Interpretation Comments Human Chorionic Gonadotropin, Qual NEGATIVE NEGATIVE (test code = 2118-8) [facility]ballUrine color rjzkeenttbrej5665-39-58 20:10:00 Test Item Value Reference Range Interpretation Comments Urine Color (test code = 5778-6) YELLOW YELLOW [facility] TomballUrine dugwmew9102-77-04 20:10:00 Test Item Value Reference Range Interpretation Comments Urine Clarity (test code = 04258-5) CLEAR CLEAR [facility] Centerpecific gravity of Urine by Test strip 2021-05-24 20:10:00 Test Item Value Reference Range Interpretation Comments Urine Specific Roselle (test code = 1.025 1.010-1.025 5811-5) [facility]ballUrine pH measurement by automated test strip 2021-05-24 20:10:00 Test Item Value Reference Range Interpretation Comments Urine pH (test code = 53572-6) 6 5-7 [facility]ballUrine leukocyte esterase detection by automated test [id number] 20:10:00 Test Item Value Reference Range Interpretation Comments Urine Leukocyte Esterase (test code NEGATIVE NEGATIVE = 50352-3) [facility]ballUrine nitrite detection by automated test [id number] 20:10:00 Test Item Value Reference Range Interpretation Comments Urine Nitrite (test code = 07948-9) NEGATIVE NEGATIVE [facility]ballUrine protein detection by automated test [id number] 20:10:00 Test Item Value Reference Range Interpretation Comments Urine Protein (test code = 26419-1) NEGATIVE NEGATIVE [facility]ballUrine glucose detection by automated test [id number] 20:10:00 Test Item Value Reference Range Interpretation Comments Urine Glucose (UA) (test code = NEGATIVE NEGATIVE 94098-4) [facility] TomballUrine ketones detection by automated test [id number] 20:10:00 Test Item Value Reference Range Interpretation Comments Urine Ketones (test code = 70539-2) NEGATIVE NEGATIVE [facility] TomballUrine urobilinogen measurement by test strip (mass/volume)2021-05-24 20:10:00 Test Item Value Reference Range Interpretation Comments Urine Urobilinogen (test code = 0.2 0.2-1 20677-6) [facility]ballUrine total bilirubin zckscqtxm7099-38-08 20:10:00 Test Item Value Reference Range Interpretation Comments Urine Bilirubin (test code = 1977-8) NEGATIVE NEGATIVE [facility]ballUrine erythrocytes aikxfbaoi0809-87-19 20:10:00 Test Item Value Reference Range Interpretation Comments Urine Blood (test code = 31428-6) SMALL NEGATIVE [facility] TomballAutomated urine sediment leukocyte count by microscopy (number/high power field)2021-05-24 20:10:00 Test Item Value Reference Range Interpretation Comments Urine WBC (test code = 5821-4) NONE 0-5 [facility] TomballErythrocytes detection in urine sediment by light wzgtvftddx3322-07-41 20:10:00 Test Item Value Reference Range Interpretation Comments Urine RBC (test code = 81303-6) 6-10 0-5 [facility] TomballBacteria detection in urine sediment by light iupqsuujid7874-59-73 20:10:00 Test Item Value Reference Range Interpretation Comments Urine Bacteria (test code = 16124-3) MODERATE NONE [facility] TomballEpithelial cells detection in urine sediment by light xqmsstgkrb6598-63-85 20:10:00 Test Item Value Reference Range Interpretation Comments Urine Epithelial Cells (test code = MODERATE NONE 39436-2) [facility] TomballCT STONE PROTOCOL [id number] 13:47:42 [facility] 1975 Sex: FCT ABDOMEN AND PELV IS W/O CONTRASTLocation code: [id number] INDICATIONS: Abdominal pain.TECHNIQUE: Volumetric acquisition of abdomen from the level of the domes of the diaphragm to the symphysis pubis using 3 mm collimation without the use of intravenous or oral contrast. Axial and coronal images were reviewed.Dose lowering technique with automatic exposure control utilized. COMPARISON: NoneFINDINGS: Lung bases are clear. Minimal right basilar atelectasis. Stable tiny bibasilar nodules.Liver is mildly enlarged measuring 20.5 cm. The gallbladder surgically absent. The spleen, pancreas, and bilateral adrenal glands arewithin normal limits.Kidneys are normal in size and contour, without nephrolithiasis or hydronephrosis.Prior gastric surgery noted. Visualized loops of small bowel are within normal limits. Normal appendix. Large bowel loops are within normal limits. Minimal diverticular disease without evidence of diverticulitis.Aorta tapers normally without aneurysmal dilatation. No lymphadenopathyCT Pelvis: The urinary bladder is unremarkable. Uterus atrophic. Visualized osseous structures demonstrate degenerative changes lower lumbar spineIMPRESSION: 1. No acute findings.2. Mild hepatomegaly with hepatic steatosis.3. Stable punctate nodules in the right lung base dating back to Januarylectronically signed by: Cleveland Hunter MD 05/23/2021 1:47 PM [facility] [id number] METABOLIC PANEL 2021-05-23 13:22:00 Test Item Value Reference Range Interpretation Comments GLUCOSE (test code 95 mg/dL 75-100 = 06D) SODIUM (test code 136 mmol/L 136-145 = 01A) POTASSIUM (test 4.3 mmol/L 3.6-5.1 code = 01B) CHLORIDE (test 105 mmol/L 98-107 code = 04A) CO2 (test code = 26 mmol/L -31 02A) ANION GAP (test 9.3 mmol/L code = ANG) BUN (test code = 15 mg/dL - 05D) CREATININE (test 0.9 mg/dL 0.6-1.0 code = 03E) GFR (test code = 75 See_Comment L [Automated GFR) mL/min/1.73m\\S\\2 message] Th e system which generated this result transmit kody reference range : >=90. The reference range was not used to interpret this result as normal/abnormal . GFR 87 See_Comment L [Automated DOMINICAN (test mL/min/1.73m\\S\\2 message] The code = GFRAA) system which generated this result transmit kody reference range : >=90. The reference range was not used to interpret this result as normal/abnormal . EGFR (test code = eGFR BY EGFR) CKD-EPI CALCULATION IS NOT RECOMMENDED FOR PATIENTS UNDER 18 YEARS OF AGE. BUN/CREA (test 16 20 code = BCR) CALCIUM (test code 9.7 mg/dL 8.3-10.6 = 09D) CBC (INCLUDES AUTOMATED DIFFERENTIAL)2021-05-23 13:09:00 Test Item Value Reference Range Interpretation Comments WBC (test code = WBC) 9.3 10\\S\\3/uL 4.5-11.0 RBC (test code = RBC) 4.52 10\\S\\6/uL 4.20-5.60 HGB (test code = HBG) 11.6 g/dL 12.0-15.5 L HCT (test code = HCT) 37.9 % 35.0-44.0 MCV (test code = MCV) 83.8 fL 81.0-99.0 MCH (test code = MCH) 25.7 pg 27.0-31.0 L MCHC (test code = MCHC) 30.6 g/dL 32.0-36.0 L RDW (test code = RDW) 15.8 % 11.5-14.5 H PLT (test code = PLT) 327 10\\S\\3/uL 130-400 MPV (test code = MPV) 10.6 fL 9.4-12.4 NEUTROP # (test code = NE#) 6.5 10\\S\\3/uL 1.6-8.0 LYMPH # (test code = LY#) 1.9 10\\S\\3/uL 1.1-3.5 MONOCYTE # (test code = MO#) 0.6 10\\S\\3/uL 0.0-1.1 EOSINOPH # (test code = EO#) 0.3 10\\S\\3/uL 0.0-0.7 BASOPHIL # (test code = BA#) 0.0 10\\S\\3/uL 0.0-0.3 IG # (test code = IG#) 0.01 10\\S\\3/uL 0.00-0.06 NRBC # (test code = NRBC#) 0.00 10\\S\\3/uL 0.00-0.01 NEUTROPH % (test code = NE%) 69.9 % 35.0-73.0 LYMPH % (test code = LY%) 20.1 % 20.0-55.0 MONO % (test code = MO%) 6.8 % 2.5-10.0 EOSINOPH % (test code = EO%) 2.8 % 0.0-5.0 BASOPHIL % (test code = BA%) 0.3 % 0.0-2.0 IG % (test code = IG%) 0.1 % 0.0-0.8 NRBC% (test code = NRBC%) 0.0 % 0.0-0.2 MANDIFF (test code = MDIFF) NO RBC MORPH (test code = RBCMOR) NORMAL URINE [id number] 13:05:00 Test Item Value Reference Range Interpretation Comments PREG UR (test code = PGU) NEGATIVE NEGATIVE URINALYSIS WITH [id number] 12:04:00 Test Item Value Reference Range Interpretation Comments COLOR (test code = COLU) YELLOW YELLOW CLARITY (test code = CLA) CLEAR CLEAR GLUCOSE UR (test code = UA GLUCOSE) NEGATIVE NEGATIVE BILI UR (test code = BILE) NEGATIVE NEGATIVE KETONES UR (test code = JAIR) NEGATIVE NEGATIVE SP GRAVITY (test code = SPGR) 1.014 1.005-1.030 PH UR (test code = PH) 7.0 4.5-8.0 PROTEIN UR (test code = PU) NEGATIVE NEGATIVE UROBIL UR (test code = UROQ) 0.2 EU/dL 0.2-1.0 NITRITE UR (test code = NITRITE) NEGATIVE NEGATIVE BLOOD UR (test code = UA BLOOD) TRACE NEGATIVE A LEUK ES UR (test code = LEUK) NEGATIVE NEGATIVE WBC UR (test code = UWBC) 0 /HPF 0-5 RBC UR (test code = URBC) 1 /HPF 0-2 EPITH UR (test code = UEPC) FEW /LPF FEW BACTERIA UR (test code = UBACT) NONE /HPF NONE CAST UR (test code = CAST) /LPF NONE CRYSTAL UR (test code = CRYU) / LPF NONE MUCUS UR (test code = MUC) / HPF NONE AMORPH UR (test code = MIGUEL) / HPF NONE TRICH UR (test code = UTRICH) /HPF NONE YEAST UR (test code = UY) /HPF NONE SPERM UR (test code = USPERM) /HPF NONE COMPREHENSIVE METABOLIC [id number] 17:59:00 Test Item Value Reference Range Interpretation Comments SODIUM (test code = NA) 139 mmol/l 134.0-147.0 N POTASSIUM (test code = K) 3.9 mmol/L 3.6-5.2 N CHLORIDE (test code = CL) 103 mmol/l 98.0-107.0 N CARBON DIOXIDE (test code = CO2) 27.0 mmol/l 21.0-33.0 N ANION GAP (test code = GAP) 12.9 0-20 N GLUCOSE (test code = GLU) 95 mg/dl 70.0-110.0 N BLOOD UREA NITROGEN (test code = 16 mg/dl 7.0-18.0 N BUN) CREATININE (test code = CREAT) 1.14 mg/dL 0.60-1.30 N GFR NON BLACK (test code = 55 mL/min 95-105 L GFRNONBLACK) GFR BLACK (test code = GFRBLACK) 66 mL/min 115-127 L TOTAL PROTEIN (test code = PROT) 7.9 gm/dL 6.4-8.2 N ALBUMIN (test code = ALB) 3.3 gm/dl 3.2-4.7 N CALCIUM (test code = CA) 9.9 mg/dl 8.0-10.5 N BILIRUBIN TOTAL (test code = 0.2 mg/dl 0.0-1.0 N BILT) SGOT/AST (test code = AST) 15 Units/L 15-37 N SGPT/ALT (test code = ALT) 27 Units/L 12.0-78.0 N ALKALINE PHOSPHATASE TOTAL (test 153 Units/L 50.0-136.0 H code = ALKP) [id number] 17:50:00 Test Item Value Reference Range Interpretation Comments LIPASE (test code = LIP) 64 Units/L 65.0-230.0 L CBC W/AUTO [id number] 17:30:00 Test Item Value Reference Range Interpretation Comments WHITE BLOOD CELL (test code = 10.5 K/mm3 4.5-11.0 N WBC) RED BLOOD CELL (test code = 4.40 M/mm3 3.80-5.20 N RBC) HEMOGLOBIN (test code = HGB) 11.1 gm/dL 12.0-16.0 L HEMATOCRIT (test code = HCT) 37.1 % 36.0-48.0 N MEAN CELL VOLUME (test code = 84.3 UM3 82.0-99.0 N MCV) MEAN CELL HGB (test code = MCH) 25.2 UUG 25.5-32.5 L MEAN CELL HGB CONCETRATION 29.9 gm/dL 29.0-35.5 N (test code = MCHC) RED CELL DISTRIBUTION WIDTH 15.5 % 11.5-15.0 H (test code = RDW) RED CELL DISTRIBUTION WIDTH SD 47.9 fL 34.8-50.2 N (test code = RDW-SD) PLATELET COUNT (test code = 310 K/mm3 150-400 N PLT) MEAN PLATELET VOLUME (test code 10.5 fl 7.4-10.4 H = MPV) NEUTROPHIL % (test code = NT%) 66.9 % 49.0-76.0 N IMMATURE GRANULOCYTE % (test 0.4 % 0.0-0.4 N code = IG%) LYMPHOCYTE % (test code = LY%) 22.8 % 23.0-38.0 L MONOCYTE % (test code = MO%) 6.6 % 1.0-10.0 N EOSINOPHIL % (test code = EO%) 3.0 % 1.0-5.0 N BASOPHIL % (test code = BA%) 0.3 % 0.0-1.0 N NUCLEATED RBC % (test code = 0.0 % 0.0-0.1 N NRBC%) NEUTROPHIL # (test code = NT#) 7.0 K/mm3 2.4-6.3 H IMMATURE GRANULOCYTE # (test 0.04 x10 3/uL 0.00-0.07 N code = IG#) LYMPHOCYTE # (test code = LY#) 2.4 K/mm3 1.2-4.0 N MONOCYTE # (test code = MO#) 0.7 K/mm3 0.0-0.6 H EOSINOPHIL # (test code = EO#) 0.3 K/MM3 0.0-0.7 N BASOPHIL # (test code = BA#) 0.0 K/mm3 0.0-0.2 N NUCLEATED RBC # (test code = 0.00 X10 3uL 0.00-0.01 N NRBC#) DRUGS OF ABUSE SCREEN [id number] 16:24:00 Test Item Value Reference Interpretation Comments Range URN COCAINE (test NEGATIVE NEGATIVE Cocaine cu t-off code = COCAURN) concentratio n: 300 ng/mL URN CANNABINOIDS NEGATIVE NEGATIVE Cannabinoid s cut-off (test code = concentration: 50 ng/mL CANNABURN) URN AMPHETAMINE NEGATIVE NEGATIVE Amphetamine cut-off (test code = concentration: 1000 ng/mL AMPHETURN) URN BARBITURATE POSITIVE NEGATIVE A UNCONFIRMED INITIAL (test code = SCREENING ONLY; SUGGEST BARBITURN) ADDITIONALCONFI RMATORY TESTING.Barbitu rate cut-off concentration: 200 ng/mL URN BENZODIAZEPINE NEGATIVE NEGATIVE Benzodiaz epine cut-off (test code = concentration: 200 ng/mL BENZOURN) URN OPIATES (test NEGATIVE NEGATIVE Opiates cu t-off code = OPIATURN) concentrati on: 2000 ng/mL URN PHENCYCLIDINE NEGATIVE NEGATIVE Phencyclid ine(PCP) cut-off (PCP) (test code = concentra tion: 25 ng/ml PHENCURN) URN METHADONE (test NEGATIVE NEGATIVE Methadon e cut-off code = METHAURN) concentrati on: 300 ng/mL URINALYSIS [id number] 16:14:00 Test Item Value Reference Range Interpretation Comments UA COLOR (test code = COLORLESS COLU) UA APPEARANCE (test code CLEAR = APPU) UA GLUCOSE DIPSTICK (test NORMAL mg/dl NORMAL code = DGLUU) UA BILIRUBIN DIPSTICK NEGATIVE mg/dL NEGATIVE (test code = BILU) UA KETONE DIPSTICK (test NEGATIVE mg/dl NEGATIVE code = KETU) UA SPECIFIC GRAVITY (test 1.010 1.000-1.030 code = SGU) UA BLOOD DIPSTICK (test 10 Jorge Alberto/micL Jorge Alberto/micL NEGATIVE A code = WINSTON) UA PH DIPSTICK (test code 7.0 5.0-9.0 = FOSTER) UA PROTEIN DIPSTICK (test NEGATIVE mg/dl NEGATIVE code = PROU) UA UROBILINIOGEN DIPSTICK NORMAL mg/dl NORMAL (test code = URO) UA NITRITE DIPSTICK (test NEGATIVE NEGATIVE code = SU) UA LEUKOCYTE ESTERASE NEGATIVE Debi/micL NEGATIVE DIPSTICK (test code = LEUU) UA WBC (test code = WBCU) 0-3 WBC/HPF NONE UA RBC (test code = RBCU) 0-2 RBC/HPF 0-3 UA EPITHELIAL CELLS (test 2-5 EPI/HPF 0-3 A code = EPIU) UA BACTERIA (test code = FEW NONE BACU) UR HCG [id number] 16:14:00 Test Item Value Reference Range Interpretation Comments UR HCG QUAL (test code = HCGQLU) NEGATIVE NEGATIVE - CT ABD PELVIS [id number] 22:37:00 [facility] [place] [facility] : 1975 Sex: F FAX: Beau Carballo MD [place]: St: REG Name: LIANA ASHBY [facility] : 1975 Age/S: 46/F [address] [facility] Unit: [id number] Loc: EERS[address] [place] [address] Phys: [place] [id number] Acct: [id number] Dis Date: Status: REG ER PHONE #: [phone] Exam Date: 05/17/20212223 FAX #: [phone] Reason: abdominal pain, n/v EXAMS: CPT CODE: [id number] CT ABD PELVIS W/CONT [id number] EXAM: CT ABDOMEN AND PELVIS WITH CONTRAST INDICATION: abdominal pain, n/v LOCATION: H50 COMPARISON: CT abdomen and pelvis dated 04/17/2021 TECHNIQUE: CT of the abdomen and pelvis was performed with intravenous contrast.All CT scans are performed using radiation dose reduction technique. Technical factors are evaluatedand adjusted to insure appropriate moderation of exposure. Automated dose management technology is applied to adjust the radiation dose to minimize exposure while achieving a diagnostic quality image. FINDINGS: Thoracic: Included images of the lower chest demonstrate no abnormalities. Hepatobiliary: No focal liver lesion is identified. No intrahepatic or extrahepatic biliary dilatation is seen. The main portal vein is patent. Gallbladder: Surgically absent Pancreas: Unremarkable. Spleen: Unremarkable. Adrenals: Unremarkable. Kidneys: There is no evidence of renal calculus. There is no evidence of hydronephrosis of either kidney. No solid renal lesion is identified. Bladder/Reproductive system: Eval uation of the bladder is limited, but no obvious bladder abnormality is present. No obvious abnormalities of the uterus or ovaries. Gastrointestinal: No bowel obstruction or perienteric inflammation. The appendix is normal. Postsurgical changes are noted at the proximal stomach. PAGE 1 Signed Report (CONTINUED) FAX: Beau Carballo MD [place]: St: REG Name: LIANA ASHBY [facility] : 1975 Age/S: 46/F [address] [id number] Loc: E.ERS2 [place], [place]: [place] [id number] Acct: [id number] Dis Date: Status: REG ER PHONE #: [phone] Exam Date: 05/17/20212223 FAX #: Reason: abdominal pain, n/v EXAMS: CPT CODE: [id number] CT ABD PELVIS W/CONT 31400 <Continued> Vascular: Atherosclerotic calcifications are seen within the aorta and branch vessels. Lymphatics: No enlarged lymph nodes by CT size criteria. Bones/Soft Tissues: No acute osseous findings. No ventral hernias. Peritoneum/Other: No extraluminal air. No extraluminal fluid. IMPRESSION: No acute abdominal or pelvic abnormalities. Electronically Signed by Jeovanny Walsh on05/17/2021 at 2237 Reported and signed by: Terri Walsh M.D. CC: Beau Carballo MD Technologist: Jen Fernandez Trnscrd Dt/Tm: 05/17/2021 (2237) [email or web address] Orig Print D/T: S: 05/17/2021 (2241 PAGE 2 Signed ReportBASIC METABOLIC [id number] 22:01:00 Test Item Value Reference Range Interpretation Comments SODIUM (test code = NA) 139 mmol/l 134.0-147.0 N POTASSIUM (test code = K) 4.0 mmol/L 3.6-5.2 N CHLORIDE (test code = CL) 102 mmol/l 98.0-107.0 N CARBON DIOXIDE (test code = CO2) 26.6 mmol/l 21.0-33.0 N ANION GAP (test code = GAP) 14.4 0-20 N GLUCOSE (test code = GLU) 124 mg/dl 70.0-110.0 H BLOOD UREA NITROGEN (test code = 16 mg/dl 7.0-18.0 N BUN) CREATININE (test code = CREAT) 1.22 mg/dL 0.60-1.30 N GFR NON BLACK (test code = 50 mL/min 95-105 L GFRNONBLACK) GFR BLACK (test code = GFRBLACK) 61 mL/min 115-127 L CALCIUM (test code = CA) 9.9 mg/dl 8.0-10.5 N HEPATIC FUNCTION PANEL [id number] 22:01:00 Test Item Value Reference Range Interpretation Comments TOTAL PROTEIN (test code = PROT) 8.0 gm/dL 6.4-8.2 N ALBUMIN (test code = ALB) 3.3 gm/dl 3.2-4.7 N BILIRUBIN TOTAL (test code = 0.1 mg/dl 0.0-1.0 N BILT) BILIRUBIN DIRECT (test code = <0.1 mg/dl 0.0-0.3 N BILD) SGOT/AST (test code = AST) 17 Units/L 15-37 N ALKALINE PHOSPHATASE TOTAL (test 169 Units/L 50.0-136.0 H code = ALKP) [id number] 22:01:00 Test Item Value Reference Range Interpretation Comments LIPASE (test code = LIP) 96 Units/L 65.0-230.0 N HCG SERUM [id number] 22:01:00 Test Item Value Reference Range Interpretation Comments HCG SERUM QUAL (test code = HCGQL) NEGATIVE NEGATIVE [id number] 22:01:00 Test Item Value Reference Range Interpretation Comments TROPONIN-I (test <0.02 NG/ML 0.00-0.06 N REFERENCE R BELINDA code = TROPI) TROPONIN I HEA LTHY INDIVIDUALS: <0 .06 ng/mL R/O ISCHE TUSHAR: 0.07 - 0.60 ng/ mL CUT-OFF RANGE F OR AMI: 0.60 - 1.5 ng/m L URINALYSIS [id number] 21:45:00 Test Item Value Reference Range Interpretation Comments UA COLOR (test code = YELLOW COLU) UA APPEARANCE (test code CLEAR = APPU) UA GLUCOSE DIPSTICK (test NORMAL mg/dl NORMAL code = DGLUU) UA BILIRUBIN DIPSTICK NEGATIVE mg/dL NEGATIVE (test code = BILU) UA KETONE DIPSTICK (test NEGATIVE mg/dl NEGATIVE code = KETU) UA SPECIFIC GRAVITY (test 1.025 1.000-1.030 code = SGU) UA BLOOD DIPSTICK (test 50 Jorge Alberto/micL Jorge Alberto/micL NEGATIVE A code = WINSTON) UA PH DIPSTICK (test code 6.0 5.0-9.0 = FOSTER) UA PROTEIN DIPSTICK (test 15 mg/dl mg/dl NEGATIVE A code = PROU) UA UROBILINIOGEN DIPSTICK NORMAL mg/dl NORMAL (test code = URO) UA NITRITE DIPSTICK (test NEGATIVE NEGATIVE code = SU) UA LEUKOCYTE ESTERASE 25 Debi/micL Debi/micL NEGATIVE A DIPSTICK (test code = LEUU) UA WBC (test code = WBCU) 10-20 WBC/HPF NONE A UA RBC (test code = RBCU) 5-10 RBC/HPF 0-3 A UA EPITHELIAL CELLS (test 5-10 EPI/HPF 0-3 A code = EPIU) UA BACTERIA (test code = MANY NONE A BACU) Specimen comments: Clean CatchCBC W/AUTO [id number] 21:42:00 Test Item Value Reference Range Interpretation Comments WHITE BLOOD CELL (test code = 10.4 K/mm3 4.5-11.0 N WBC) RED BLOOD CELL (test code = 4.67 M/mm3 3.80-5.20 N RBC) HEMOGLOBIN (test code = HGB) 11.8 gm/dL 12.0-16.0 L HEMATOCRIT (test code = HCT) 39.8 % 36.0-48.0 N MEAN CELL VOLUME (test code = 85.2 UM3 82.0-99.0 N MCV) MEAN CELL HGB (test code = MCH) 25.3 UUG 25.5-32.5 L MEAN CELL HGB CONCETRATION 29.6 gm/dL 29.0-35.5 N (test code = MCHC) RED CELL DISTRIBUTION WIDTH 15.9 % 11.5-15.0 H (test code = RDW) RED CELL DISTRIBUTION WIDTH SD 49.4 fL 34.8-50.2 N (test code = RDW-SD) PLATELET COUNT (test code = 339 K/mm3 150-400 N PLT) MEAN PLATELET VOLUME (test code 10.6 fl 7.4-10.4 H = MPV) NEUTROPHIL % (test code = NT%) 68.1 % 49.0-76.0 N IMMATURE GRANULOCYTE % (test 0.2 % 0.0-0.4 N code = IG%) LYMPHOCYTE % (test code = LY%) 21.3 % 23.0-38.0 L MONOCYTE % (test code = MO%) 6.6 % 1.0-10.0 N EOSINOPHIL % (test code = EO%) 3.4 % 1.0-5.0 N BASOPHIL % (test code = BA%) 0.4 % 0.0-1.0 N NUCLEATED RBC % (test code = 0.0 % 0.0-0.1 N NRBC%) NEUTROPHIL # (test code = NT#) 7.1 K/mm3 2.4-6.3 H IMMATURE GRANULOCYTE # (test 0.02 x10 3/uL 0.00-0.07 N code = IG#) LYMPHOCYTE # (test code = LY#) 2.2 K/mm3 1.2-4.0 N MONOCYTE # (test code = MO#) 0.7 K/mm3 0.0-0.6 H EOSINOPHIL # (test code = EO#) 0.4 K/MM3 0.0-0.7 N BASOPHIL # (test code = BA#) 0.0 K/mm3 0.0-0.2 N NUCLEATED RBC # (test code = 0.00 X10 3uL 0.00-0.01 N NRBC#) TROPONIN [id number] 20:40:43 Test Item Value Reference Interpretation Comments Range TROPONIN I (test 0.001 ng/mL See_Comment [Automated code = 4662077251) message] The system which generated this result transmitted reference range : <=0.034. The reference range was not used to interpret this result as normal/abnormal . MIKY (test code = Reference (Normal) MIKY) Range (defined by the 99th percentile reference limit): <= 0.034 ng/mL Note: Cardiac troponin begins to rise 3-4 hours after the onset of ischemia. Repeat in 4-6 hours if the sample was drawn within 3-4 hours of the onset of the symptom and found normal. Diagnosis of myocardial injury is made with acute changes in cTn concentrations with at least one serial sample above the 99th percentile upper reference limit (URL), taken together with the patient's clinical presentation. Biotin has been reported to cause a negative bias, interpret results relative to patient's use of biotin. Lab Interpretation Normal (test code = 10701-1) [facility] 20:29:21 Test Item Value Reference Range Interpretation Comments MAGNESIUM (test code = 1166067161) 2.1 mg/dL 1.7-2.4 Lab Interpretation (test code = Normal 88747-8) [facility] Center[facility]. [facility]OLIC PANEL (16044)2021-04-23 20:28:56 Test Item Value Reference Range Interpretation Comments NA (test code = 135 mmol/L 135-145 8504699795) K (test code = 5.2 mmol/L 3.5-5.0 H 0290319779) CL (test code = 104 mmol/L 98-108 8358287794) CO2 TOTAL (test code = 24 mmol/L 23-31 5339496148) AGAP (test code = 2-16 8053441970) BUN (test code = 17 mg/dL 7-23 0595164072) GLUCOSE (test code = 98 mg/dL 70-110 7713020848) CREATININE (test code = 0.93 mg/dL 0.50-1.04 5168811405) TOTAL BILI (test code = 0.5 mg/dL 0.1-1.4 8116506556) CALCIUM (test code = 9.8 mg/dL 8.6-10.6 9281907374) T PROTEIN (test code = 7.6 g/dL 6.3-8.2 3198247835) ALBUMIN (test code = 4.1 g/dL 3.5-5.0 7293024190) ALK PHOS (test code = 158 U/L 34-122 H 7460509066) ALTv (test code = 14 U/L 5-35 1742-6) AST(SGOT) (test code = 25 U/L 13-40 7490867684) eGFR (test code = mL/min/1.73m2 4921109669) MIKY (test code = MIKY) Association of Glomerular Filtration Rate (GFR) and Staging of Kidney Disease* + --+ --+ ------+| GFR (mL/min/1.73 m2) ?| With Kidney Damage ?| ?Without Kidney Damage+ --------+ --------+ +| ?>90 ?| ?Stage one ?| ? Normal ?+ ---+ ---+ -------+| ?60-89 ?| ?Stage two ?| ? Decreased GFR ? + --+ --+ ------+| ?30-59 ?| ?Stage three ?| ? Stage three ? + --+ --+ ------+| ?15-29 ?| ?Stage four ? | ? Stage four ?+ ---+ ---+ -------+| ?<15 (or dialysis) ? ?| ?Stage five ? | ? Stage five ?+ ---+ ---+ -------+ *Each stage assumes the associated GFR level has been in effect for at least three months. ?Stages 1 to 5, with or without kidney disease, indicate chronic kidney disease. Notes: Determination of stages one and two (with eGFR >59mL/min/1.73 m2) requires estimation of kidney damage for at least three months as defined by structural or functional abnormalities of the kidney, manifested by either:Pathological abnormalities or Markers of kidney damage (including abnormalities in the composition of the blood or urine or abnormalities in imaging tests). Lab Interpretation Abnormal (test code = 35933-2) [facility]LIPASE20[facility] 20:28:41 Test Item Value Reference Range Interpretation Comments LIPASE (test code = 2990399619) 58 U/L 0-220 Lab Interpretation (test code = Normal 15939-6) [facility] CenterCB WITH [id number] 20:10:26 Test Item Value Reference Range Interpretation Comments WBC (test code = See_Comment [Automated 2590-2) message] The sy stem which generated this result transmitted reference range : 4.30 - 11.10 10*3/?L. The reference range was not used to interpret this result as normal/abnormal . RBC (test code = See_Comment [Automated 559-8) message] The sy stem which generated this result transmitted reference range : 3.93 - 5.25 10*6/?L. The reference range was not used to interpret this result as normal/abnormal . HGB (test code = 11.7 g/dL 11.6-15.0 718-7) HCT (test code = 37.8 % 35.7-45.2 4544-3) MCV (test code = 83.1 fL 80.6-95.5 787-2) MCH (test code = 25.7 pg 25.9-32.8 L 785-6) MCHC (test code = 31.0 g/dL 31.6-35.1 L 786-4) RDW-SD (test code = 45.7 fL 39.0-49.9 77940-7) RDW-CV (test code = 15.0 % 12.0-15.5 788-0) PLT (test code = See_Comment [Automated 777-3) message] The sy stem which generated this result transmitted reference range : 166 - 358 10*3/ ?L. The reference r belinda was not used to interpret this result as normal/abnormal . MPV (test code = 11.0 fL 9.5-12.9 75832-2) NRBC/100 WBC (test See_Comment [Automat ed code = 9081697249) message] The system which generated this result transmitted reference range : 0.0 - 10.0 /100 WBCs. The refer ence range was not u sed to interpret th is result as normal/abnormal . NRBC x10^3 (test code <0.01 See_Comment [Auto mated = 9293622717) message] The s ystem which generated this result transmitted reference range : 10*3/?L. The reference range was not used to interpret this result as normal/abnormal . GRAN MAT (NEUT) % 71.4 % (test code = 770-8) IMM GRAN % (test code 0.40 % = 3180553253) LYMPH % (test code = 17.2 % 736-9) MONO % (test code = 6.9 % 5905-5) EOS % (test code = 3.6 % 713-8) BASO % (test code = 0.5 % 706-2) GRAN MAT x10^3(ANC) 7.12 10*3/uL 1.88-7.09 H (test code = 4742861493) IMM GRAN x10^3 (test 0.04 10*3/uL 0.00-0.06 code = 0082360591) LYMPH x10^3 (test code 1.72 10*3/uL 1.32-3.29 = 731-0) MONO x10^3 (test code 0.69 10*3/uL 0.33-0.92 = 742-7) EOS x10^3 (test code = 0.36 10*3/uL 0.03-0.39 711-2) BASO x10^3 (test code 0.05 10*3/uL 0.01-0.07 = 704-7) Lab Interpretation Abnormal (test code = 46265-8) [facility] CenterURINAL[facility]IS [id number] 22:05:00 Test Item Value Reference Range Interpretation Comments UA COLOR (test code = YELLOW COLU) UA APPEARANCE (test code CLEAR = APPU) UA GLUCOSE DIPSTICK (test NORMAL mg/dl NORMAL code = DGLUU) UA BILIRUBIN DIPSTICK NEGATIVE mg/dL NEGATIVE (test code = BILU) UA KETONE DIPSTICK (test NEGATIVE mg/dl NEGATIVE code = KETU) UA SPECIFIC GRAVITY (test 1.020 1.000-1.030 code = SGU) UA BLOOD DIPSTICK (test 50 Jorge Alberto/micL Jorge Alberto/micL NEGATIVE A code = WINSTON) UA PH DIPSTICK (test code 6.0 5.0-9.0 = FOSTER) UA PROTEIN DIPSTICK (test NEGATIVE mg/dl NEGATIVE code = PROU) UA UROBILINIOGEN DIPSTICK NORMAL mg/dl NORMAL (test code = URO) UA NITRITE DIPSTICK (test NEGATIVE NEGATIVE code = SU) UA LEUKOCYTE ESTERASE 25 Debi/micL Debi/micL NEGATIVE A DIPSTICK (test code = LEUU) UA WBC (test code = WBCU) 4-9 WBC/HPF NONE A UA RBC (test code = RBCU) 5-10 RBC/HPF 0-3 A UA EPITHELIAL CELLS (test 10-15 EPI/HPF 0-3 A code = EPIU) UA BACTERIA (test code = MANY NONE A BACU) UA URIC ACID CRYSTALS FEW (test code = URIU) Specimen comments: Clean Catch- CT ABD PELVIS W/O [id number] 21:53:00 [facility] [place] [place] : 1975 Sex: F FAX: Ruth Ann Brennan MD [phone] [place]: St: REG Name: LIANA ASHBY [facility] : 1975 Age[facility]S: 46/F [address] Unit: [id number] Loc: [address] Phys: Ruth Ann Brennan [place] [id number]: [id number] Dis Date: Status: REG ER PHONE #: [phone] Exam Date: 04/17/20212100 FAX #: [phone] Reason: GENERALIZED ABDOMINAL PAIN EXAMS: CPT CODE: [id number] CT ABD PELVIS W/O CONT 91648 EXAM: - CT ABD PELVIS W/O CONT LOCATION: H57 HISTORY: 46 years-year old Female with GENERALIZEDABDOMINAL PAIN TECHNIQUE: IV contrast was given, no oral contrast was given. Portal venous phase - abdomen. No delayed phase images were obtained.. Reconstructions - coronal and sagittal planes. Automated exposure reduction (Auto mA/Smart mA) was utilized in compliance with ACR [employer]. COMPARISON: 03/16/21 FINDINGS: Hepatobiliary: The liver is normal without focal lesion. Status post cholecystectomy. No biliary dilation. Pancreas: Normal. Spleen: Normal. Adrenals: Normal. Genitourinary: The kidneys are normal. No hydronephrosis. The bladder is well distended and unremarkable. Unremarkable uterus. Gastrointestinal: Postsurgical changes of bariatric surgery. No bowel obstruction or perienteric inflammation. The appendix is normal. Lymphatics: No enlarged lymph nodes by CT size criteria. Vascular: The aorta is normal in appearance. No evidence of aneurysm or dissection. Bones/Soft Tissues:No acute osseous findings. No ventral hernias. Peritoneum/Other: No free air. No free fluid. Thoracic: Included images of the lower chest demonstrate no abnormalities. IMPRESSION: PAGE 1 Signed Report(CONTINUED) FAX: Ruth Ann Brennan MD [phone] [place]: St: REG Name: LIANA ASHBY [facility] : 1975 Age/S: 46/F [address] [facility] Unit: [id number] Loc: [address] Phys: [place] [id number] Acct: [id number] Dis Date: Status: REG ER PHONE #: [phone] Exam Date: 2100 FAX #: [phone] Reason: GENERALIZED ABDOMINAL PAIN EXAMS: CPT CODE: [id number] CT ABD PELVIS W/O CONT 91200 <Continued> 1. No acute findings in the abdomen/pelvis. at 2153 Reported and signed by: Too Olmedo MD CC: Neha Brennan MD Technologist: KARSON BLOOM Trnscrd Dt/Tm: 04/17/2021 (2152) [email or web address] Orig Print D/T: S: 04/17/2021 (7 PAGE 2 Signed ReportBASIC METABOLIC [id number] 20:35:00 Test Item Value Reference Range Interpretation Comments SODIUM (test code = 136 mmol/l 134.0-147.0 N NA) POTASSIUM (test code = 4.7 mmol/L 3.6-5.2 N SAMPL E SLIGHTLY K) HEMOLYSED CHLORIDE (test code = 104 mmol/l 98.0-107.0 N CL) CARBON DIOXIDE (test 20.8 mmol/l 21.0-33.0 L code = CO2) ANION GAP (test code = 15.9 0-20 N GAP) GLUCOSE (test code = 123 mg/dl 70.0-110.0 H GLU) BLOOD UREA NITROGEN 24 mg/dl 7.0-18.0 H (test code = BUN) CREATININE (test code 1.43 mg/dL 0.60-1.30 H = CREAT) GFR NON BLACK (test 42 mL/min 95-105 L code = GFRNONBLACK) GFR BLACK (test code = 51 mL/min 115-127 L GFRBLACK) CALCIUM (test code = 9.4 mg/dl 8.0-10.5 N CA) HEPATIC FUNCTION PANEL [id number] 20:35:00 Test Item Value Reference Range Interpretation Comments TOTAL PROTEIN (test code = PROT) 8.4 gm/dL 6.4-8.2 H ALBUMIN (test code = ALB) 3.5 gm/dl 3.2-4.7 N BILIRUBIN TOTAL (test code = 0.4 mg/dl 0.0-1.0 N BILT) BILIRUBIN DIRECT (test code = <0.1 mg/dl 0.0-0.3 N BILD) SGOT/AST (test code = AST) 46 Units/L 15-37 H SGPT/ALT (test code = ALT) 21 Units/L 12.0-78.0 N ALKALINE PHOSPHATASE TOTAL (test 149 Units/L 50.0-136.0 H code = ALKP) [id number] 20:35:00 Test Item Value Reference Range Interpretation Comments LIPASE (test code = LIP) 107 Units/L 65.0-230.0 N HCG SERUM [id number] 20:35:00 Test Item Value Reference Range Interpretation Comments HCG SERUM QUAL (test code = HCGQL) NEGATIVE NEGATIVE CBC W/AUTO [id number] 20:15:00 Test Item Value Reference Range Interpretation Comments WHITE BLOOD CELL (test code = 11.3 K/mm3 4.5-11.0 H WBC) RED BLOOD CELL (test code = 4.87 M/mm3 3.80-5.20 N RBC) HEMOGLOBIN (test code = HGB) 12.4 gm/dL 12.0-16.0 N HEMATOCRIT (test code = HCT) 39.9 % 36.0-48.0 N MEAN CELL VOLUME (test code = 81.9 UM3 82.0-99.0 L MCV) MEAN CELL HGB (test code = MCH) 25.5 UUG 25.5-32.5 N MEAN CELL HGB CONCETRATION 31.1 gm/dL 29.0-35.5 N (test code = MCHC) RED CELL DISTRIBUTION WIDTH 15.8 % 11.5-15.0 H (test code = RDW) RED CELL DISTRIBUTION WIDTH SD 46.8 fL 34.8-50.2 N (test code = RDW-SD) PLATELET COUNT (test code = 280 K/mm3 150-400 N PLT) MEAN PLATELET VOLUME (test code 11.5 fl 7.4-10.4 H = MPV) NEUTROPHIL % (test code = NT%) 73.3 % 49.0-76.0 N IMMATURE GRANULOCYTE % (test 0.4 % 0.0-0.4 N code = IG%) LYMPHOCYTE % (test code = LY%) 15.5 % 23.0-38.0 L MONOCYTE % (test code = MO%) 7.9 % 1.0-10.0 N EOSINOPHIL % (test code = EO%) 2.5 % 1.0-5.0 N BASOPHIL % (test code = BA%) 0.4 % 0.0-1.0 N NUCLEATED RBC % (test code = 0.0 % 0.0-0.1 N NRBC%) NEUTROPHIL # (test code = NT#) 8.3 K/mm3 2.4-6.3 H IMMATURE GRANULOCYTE # (test 0.04 x10 3/uL 0.00-0.07 N code = IG#) LYMPHOCYTE # (test code = LY#) 1.8 K/mm3 1.2-4.0 N MONOCYTE # (test code = MO#) 0.9 K/mm3 0.0-0.6 H EOSINOPHIL # (test code = EO#) 0.3 K/MM3 0.0-0.7 N BASOPHIL # (test code = BA#) 0.0 K/mm3 0.0-0.2 N NUCLEATED RBC # (test code = 0.00 X10 3uL 0.00-0.01 N NRBC#) CTA ABD/[id number] 01:50:00 [facility] 1975 [place] [address] Patient Name: LIANA ASHBY MR #: [id number] : 1975 Age/Sex: 46/F Req #: [id number] [facility] Physician: Ordered by: BRY RIDLEY DO Report #: [id number] Location: ER Room/Bed: Procedure:[id number] CT/CTA ABD/PELVIS Exam Date: 04/07/21 Exam Time: 9136 REPORT STATUS: Signed CLINICAL HISTORY: GI bleed FINDINGS: Multiple axial images of the abdomen and pelvis were performed before and after the uncomplicated administration of IV contrast utilizing a CT aortogram protocol. Coronal and sagittal reformats werecreated. 3-D volumetric reformatted images were created at a dedicated workstation. This exam was performed according to our departmental dose-optimization program, which includes automated exposure control, adjustment of the mA and/or kV according to patient size and/or use of the iterative reconstruction technique. Comparison: 03/11/2021. Vascular: There is no extravasated intraluminal contrast within the large or small bowel to suggesta source of bleeding. There is no aortic dissection or aneurysm. No periaortic hematoma is present. There are mild atherosclerotic calcifications. No branch vessel occlusion is noted. The celiac axis and SMA are patent. The common hepatic arteryarises directly from the aorta. Thereare single renal arteries bilaterally. The FCO, aortic and iliac bifurcations are patent. LOWER THORAX: Unchanged right lower lobe subpleural pulmonary nodules up to 0.4 cm diameter. HEPATOBILIARY: No focal hepatic lesions. Gallbladder is surgically absent. No biliary ductal dilatation. SPLEEN: No splenomegaly. Unchanged focal splenic calcification. PANCREAS: No focal masses or ductal dilatation. ADRENALS: No adrenal nodules. KIDNEYS/URETERS: No hydronephrosis, stones, or masses. PELVIC ORGANS/BLADDER: Unremarkable. PERITONEUM/RETROPERITONEUM: No free air or fluid. LYMPH NODES: No lymphadenopathy. 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 No bowel distention or wall thickening. Normal appendix. BONES AND SOFT TISSUES: No acute osseous abnormality. Soft tissues are unremarkable. IMPRESSION: No CT evidence of active extravasation of contrast-enhanced blood into the bowel lumen to suggest asource of bleeding. No acute abnormality. Unchanged bibasilar small pulmonary nodules. Previous recommendation for follow-up remains. Signed by: Michael Franz on 04/08/2021 1:50 AM Dictated By: MICHAEL FRANZ MD 1 Transcribed By: LEANA on 04/08/21149 COPY TO: BRY RIDLEY DO Blood leukocytes automated count (number/volume)2021-04-07 20:56:00 Test Item Value Reference Range Interpretation Comments White Blood Count (test code = 6690-2) 8.86 4.8-10.8 [facility] erythrocytes automated count (number/volume)2021-04-07 20:56:00 Test Item Value Reference Range Interpretation Comments Red Blood Count (test code = 789-8) 4.12 3.6-5.1 [facility]ball[facility] hemoglobin measurement (moles/volume) 2021-04-07 20:56:00 Test Item Value Reference Range Interpretation Comments Hemoglobin (test code = 68779-7) 10.5 12.0-16.0 [facility]ballAutomated blood hematocrit (volume fraction) 2021-04-07 20:56:00 Test Item Value Reference Range Interpretation Comments Hematocrit (test code = 4544-3) 35.1 34.2-44.1 [facility]ballAutomated erythrocyte mean corpuscular volume 2021-04-07 20:56:00 Test Item Value Reference Range Interpretation Comments Mean Corpuscular Volume (test code = 85.2 81-99 787-2) [facility]ballAutomated erythrocyte mean corpuscular hemoglobin (mass per erythrocyte)2021-04-07 20:56:00 Test Item Value Reference Range Interpretation Comments Mean Corpuscular Hemoglobin (test code 25.5 28-32 = 785-6) [facility] TomballAutomated erythrocyte mean corpuscular hemoglobin concentration measurement (mass/volume)2021-04-07 20:56:00 Test Item Value Reference Range Interpretation Comments Mean Corpuscular Hemoglobin Concent 29.9 31-35 (test code = 786-4) [facility] TomballRDW CekEs-[id number] 20:56:00 Test Item Value Reference Range Interpretation Comments Red Cell Distribution Width (test code 15.7 11.7-14.4 = 19449-4) [facility] TomballAutomated blood platelet count (count/volume) 2021-04-07 20:56:00 Test Item Value Reference Range Interpretation Comments Platelet Count (test code = 777-3) 291 140-360 [facility] TomballAutomated blood segmented neutrophil count as percentage of total [id number] 20:56:00 Test Item Value Reference Range Interpretation Comments Neutrophils (%) (Auto) (test code = 57.3 38.7-80.0 66489-2) [facility] TomballAutomated blood lymphocyte count as percentage ot total sbtgujbppw6453-11-84 20:56:00 Test Item Value Reference Range Interpretation Comments Lymphocytes (%) (Auto) (test code = 30.0 18.0-39.1 736-9) [facility] TomballAutomated blood monocyte count as percentage of total [id number] 20:56:00 Test Item Value Reference Range Interpretation Comments Monocytes (%) (Auto) (test code = 7.4 4.4-11.3 5905-5) [facility] TomballAutomated blood eosinophil count as percentage of total ssxiwrjwya2773-48-82 20:56:00 Test Item Value Reference Range Interpretation Comments Eosinophils (%) (Auto) (test code = 4.4 0.0-6.0 713-8) [facility]ball[facility] blood basophil count as percentage of total [id number] 20:56:00 Test Item Value Reference Range Interpretation Comments Basophils (%) (Auto) (test code = 0.6 0.0-1.0 706-2) [facility] TomballFluoroscopic procedure less than one hour [id number] 20:56:00 Test Item Value Reference Range Interpretation Comments IM GRANULOCYTES % (test code = IM 0.3 0.0-1.0 GRANULOCYTES %) [facility]ball[facility] blood neutrophil [id number] 20:56:00 Test Item Value Reference Range Interpretation Comments Neutrophils # (Auto) (test code = 5.1 2.1-6.9 751-8) [facility]ballBlood lymphocytes count (number/volume) 2021-04-07 20:56:00 Test Item Value Reference Range Interpretation Comments Lymphocytes # (Auto) (test code = 2.7 1.0-3.2 48770-6) [facility]ballBlood monocytes automated count (number/volume)2021-04-07 20:56:00 Test Item Value Reference Range Interpretation Comments Monocytes # (Auto) (test code = 742-7) 0.7 0.2-0.8 [facility]ballAutom[facility] blood eosinophil [id number] 20:56:00 Test Item Value Reference Range Interpretation Comments Eosinophils # (Auto) (test code = 0.4 0.0-0.4 711-2) [facility]ball[facility] blood basophil count (count/volume) 2021-04-07 20:56:00 Test Item Value Reference Range Interpretation Comments Basophils # (Auto) (test code = 704-7) 0.1 0.0-0.1 [facility] TomballFluoroscopic procedure less than one hour [id number] 20:56:00 Test Item Value Reference Range Interpretation Comments Absolute Immature Granulocyte (auto 0.03 0-0.1 (test code = Absolute Immature Granulocyte (auto) [facility]ballUrine color [id number] 20:56:00 Test Item Value Reference Range Interpretation Comments Urine Color (test code = 5778-6) YELLOW YELLOW [facility] TomballUrine [id number] 20:56:00 Test Item Value Reference Range Interpretation Comments Urine Clarity (test code = 39129-0) CLEAR [facility]AR [facility] by Test strip 2021-04-07 20:56:00 Test Item Value Reference Range Interpretation Comments Urine Specific [place] (test code = >=1.030 1.010-1.025 5811-5) [facility]ball[facility] pH measurement by automated test strip 2021-04-07 20:56:00 Test Item Value Reference Range Interpretation Comments Urine pH (test code = 20206-3) 6.5 5-7 [facility]ball[facility]rine leukocyte esterase detection by automated test [id number] 20:56:00 Test Item Value Reference Range Interpretation Comments Urine Leukocyte Esterase (test code NEGATIVE NEGATIVE = 27163-4) [facility]ballUrine nitrite detection by automated test [id number] 20:56:00 Test Item Value Reference Range Interpretation Comments Urine Nitrite (test code = 87017-9) NEGATIVE NEGATIVE [facility]ball[facility] protein detection by automated test [id number] 20:56:00 Test Item Value Reference Range Interpretation Comments Urine Protein (test code = 07437-4) NEGATIVE NEGATIVE [facility]ballU[facility] glucose detection by automated test [id number] 20:56:00 Test Item Value Reference Range Interpretation Comments Urine Glucose (UA) (test code = NEGATIVE NEGATIVE 19039-3) [facility]ballUrine ketones detection by automated test [id number] 20:56:00 Test Item Value Reference Range Interpretation Comments Urine Ketones (test code = 40744-8) NEGATIVE NEGATIVE [facility]ballUrine urobilinogen measurement by test strip (mass/volume)2021-04-07 20:56:00 Test Item Value Reference Range Interpretation Comments Urine Urobilinogen (test code = 0.2 0.2-1 63430-7) [facility]ballU[facility] total bilirubin rufpobxzy6687-83-71 20:56:00 Test Item Value Reference Range Interpretation Comments Urine Bilirubin (test code = 1977-8) NEGATIVE NEGATIVE [facility]ballUrine erythrocytes [id number] 20:56:00 Test Item Value Reference Range Interpretation Comments Urine Blood (test code = 22651-2) SMALL NEGATIVE [facility] TomballAutomated urine sediment leukocyte count by microscopy (number/high power field)2021-04-07 20:56:00 Test Item Value Reference Range Interpretation Comments Urine WBC (test code = 5821-4) 04-07 0-5 [facility] TomballErythrocytes detection in urine sediment by light [id number] 20:56:00 Test Item Value Reference Range Interpretation Comments Urine RBC (test code = 49316-5) 04-07 0-5 [facility] TomballBacteria detection in urine sediment by light [id number] 20:56:00 Test Item Value Reference Range Interpretation Comments Urine Bacteria (test code = 03476-2) MODERATE NONE [facility] TomballEpithelial cells detection in urine sediment by light [id number] 20:56:00 Test Item Value Reference Range Interpretation Comments Urine Epithelial Cells (test code = MODERATE NONE 36506-9) [facility] TomballUrine human chorionic gonadotropin (hCG) [id number] 20:56:00 Test Item Value Reference Range Interpretation Comments Urine Test (test code = NEGATIVE NEGATIVE 2105-3) [facility] plasma sodium measurement (moles/volume)2021-04-07 20:56:00 Test Item Value Reference Range Interpretation Comments Sodium Level (test code = 2951-2) 142 136-145 [facility]ererum or plasma potassium measurement (moles/volume)2021-04-07 20:56:00 Test Item Value Reference Range Interpretation Comments Potassium Level (test code = 2823-3) 3.8 3.5-5.1 [facility] Centererum or plasma chloride measurement (moles/volume)2021-04-07 20:56:00 Test Item Value Reference Range Interpretation Comments Chloride Level (test code = 2075-0) 110 98-107 [facility]ererum or plasma carbon dioxide, total measurement (moles/volume)2021-04-07 20:56:00 Test Item Value Reference Range Interpretation Comments Carbon Dioxide Level (test code = 22 -29 2028-01) [facility]ere[facility] or plasma anion [id number] 20:56:00 Test Item Value Reference Range Interpretation Comments Anion Gap (test code = 22776-9) 13.8 8-16 [facility]ere[facility] plasma urea nitrogen measurement (mass/volume)2021-04-07 20:56:00 Test Item Value Reference Range Interpretation Comments Blood Urea Nitrogen (test code = 9 12-11 3094-0) [facility]ere[facility] plasma creatinine measurement (mass/volume)2021-04-07 20:56:00 Test Item Value Reference Range Interpretation Comments Creatinine (test code = 2160-0) 1.12 0.57-1.11 [facility]ererum or plasma urea nitrogen/creatinine mass [id number] 20:56:00 Test Item Value Reference Range Interpretation Comments BUN/Creatinine Ratio (test code = 8 11-10 3097-3) [facility] TomballEstimated glomerular filtration rate (GFR) [id number] 20:56:00 Test Item Value Reference Range Interpretation Comments Estimat Glomerular 53 See_Comment [Automat ed message] The Filtration Rate (test system which generated code = 580700501) this resul t transmitted reference range : 60-. The reference r belinda was not used to int erpret this result as normal/abnormal . [facility] TomballGlucose [id number] 20:56:00 Test Item Value Reference Range Interpretation Comments Glucose Level (test code = QTQ0890) 87 74-118 [facility]ererum [facility] plasma calcium measurement (mass/volume)2021-04-07 20:56:00 Test Item Value Reference Range Interpretation Comments Calcium Level (test code = 49820-7) 8.9 8.4-10.2 [facility]ererum or plasma total bilirubin measurement (mass/volume)2021-04-07 20:56:00 Test Item Value Reference Range Interpretation Comments Total Bilirubin (test code = 1975-2) 0.2 0.2-1.2 [facility] TomballFluoroscopic procedure less than one hour [id number] 20:56:00 Test Item Value Reference Range Interpretation Comments Aspartate Amino Transf (AST/SGOT) (test 15 5-34 code = Aspartate Amino Transf (AST/SGOT)) [facility]ererum or plasma alanine aminotransferase measurement (enzymatic activity/volume)2021-04-07 20:56:00 Test Item Value Reference Range Interpretation Comments Alanine Aminotransferase (ALT/SGPT) 8 0-55 (test code = 1742-6) [facility]ererum or plasma protein measurement (mass/volume)2021-04-07 20:56:00 Test Item Value Reference Range Interpretation Comments Total Protein (test code = 2885-2) 7.1 6.5-8.1 [facility] Centererum or plasma albumin measurement (mass/volume)2021-04-07 20:56:00 Test Item Value Reference Range Interpretation Comments Albumin (test code = 1751-7) 3.2 3.5-5.0 [facility] TomballPlasma globulin measurement (mass/volume) 2021-04-07 20:56:00 Test Item Value Reference Range Interpretation Comments Globulin (test code = 70647-8) 3.9 2.3-3.5 [facility]ererum or plasma albumin/globulin mass ratio 2021-04-07 20:56:00 Test Item Value Reference Range Interpretation Comments Albumin/Globulin Ratio (test code = 0.8 0.8-2.0 1759-0) [facility]ererum or plasma alkaline phosphatase measurement (enzymatic activity/volume)2021-04-07 20:56:00 Test Item Value Reference Range Interpretation Comments Alkaline Phosphatase (test code = 118 40-150 6768-6) [facility]ballDIRECT [facility] [id number] 10:27:00 Test Item Value Reference Range Interpretation Comments Culture Observations NO BETA HEMOLYTIC (test code = COB1) STREPTOCOCCUS ISOLATED Direct Exam (test code NEGATIVE FOR STREP A = DE3) ANTIGEN URINE [id number] 08:40:00 Test Item Value Reference Range Interpretation Comments Culture Observations THREE OR MORE SPECIES (test code = COB1) OF BACTERIA ISOLATED. PROBABLE CONTAMINATION. Culture Observations IDENTIFICATION AND (test code = COB17) SUSCEPTIBILITY NOT INDICATED. RECOLLECTION RECOMMENDED CT ABDOMEN AND PELVIS WITH [id number] 17:46:48 [facility] ASHYBDOB: 1975 Sex: FEXAMINATION:CT ABDO MEN AND PELVIS WITH CONTRASTCLINICAL INDICATION:Female, 46 years old with Left upper quadrant painTECHNIQUE: Thin section axial post-contrast contiguous images were obtained through the abdomen and pelvis followed by coronal and sagittal multiplanar reformations.One or more of the following dose reduction techniques were used: Automated exposure control, adjustment of the mA and/or kV according to patient size, and/or iterative reconstruction. COMPARISON: CT abdomen and pelvis 03/20/2001FINDINGS:Lower Chest: Atelectasis. Subpleural 3 mm left lower lobe nodule and punctate left lower lobe nodule are stable. Heart is normal in size. No pericardial or pleural effusion.Liver: Normal in size and contour. Low- density of the liver consistent with fatty infiltration. Gallbladder: Surgically absent. No biliary duct dilatation.Pancreas: Normal appearance without focal lesion.Spleen: Normal in size and contour. A solitary splenic calcified granuloma is present.Adrenals: Normal configuration.Kidneys and ureters: Unremarkable.Bladder/Reproductive Organs: Urinary bladder is unremarkable. Reproductive organs are normal for age. No pelvic lymphadenopathy or free fluid.Bowel: Stable postsurgical changes of prior bariatric surgery. No abnormal bowel dilatation. No perienteric edema. Normal appendix. No free air, free fluid, or fluid collection.Lymph nodes: There are no pathologically enlarged abdominopelvic lymph nodes.Retroperitoneum: Mild atherosclerosis normal caliber abdominal aorta.Abdominal wall: No hernia or mass.Bones: No acute abnormality or suspicious bony lesion.IMPRESSION:Stable appearance of the abdomen and pelvis without CT evidence of acute intra-abdominal pathology.Stable micronodules in the posterior right lower lobe. No specific follow-up is described in a patient with low risk factors.Electronically signed by: Jaimie Smallwood MD 04/05/2021 5:46 PM SOLE RUFFER -VyX (RAPID ANTIGEN)2021-04-05 17:16:00 Test Item Value Reference Range Interpretation Comments SARS-CoV (ANTIGEN) NEGATIVE NEGATIVE (test code = COVAG) COVID AG (test This test has been code = COVAGC) marketed under the FDA Emergency Use Authorization (EUA) to meet challenges of the COVID-19 pandemic. The validation standards normally enforced by the FDA and the [employer] (CAP) are more stringent than those required for this test. Therefore, the result should be interpreted with caution and close attention to other clinical and epidemiological data URINALYSIS WITH [id number] 17:03:00 Test Item Value Reference Range Interpretation Comments COLOR (test code = COLU) Yellow YELLOW CLARITY (test code = CLA) Clear CLEAR GLUCOSE UR (test code = UA Negative NEGATIVE GLUCOSE) BILI UR (test code = BILE) Negative NEGATIVE KETONES UR (test code = JAIR) Negative NEGATIVE SP GRAVITY (test code = SPGR) 1.015 1.005-1.030 PH UR (test code = PH) 7.0 4.5-8.0 PROTEIN UR (test code = PU) Negative NEGATIVE UROBIL UR (test code = UROQ) 0.2 EU/dL 0.2-1.0 NITRITE UR (test code = Negative NEGATIVE NITRITE) BLOOD UR (test code = UA BLOOD) TRACE-INTACT NEGATIVE A LEUK ES UR (test code = LEUK) Negative NEGATIVE WBC UR (test code = UWBC) 2 /HPF 0-5 RBC UR (test code = URBC) 3 /HPF 0-2 H EPITH UR (test code = UEPC) MODERATE /LPF FEW A BACTERIA UR (test code = UBACT) FEW /HPF NONE A CAST UR (test code = CAST) /LPF NONE CRYSTAL UR (test code = CRYU) / LPF NONE MUCUS UR (test code = MUC) / HPF NONE AMORPH UR (test code = MIGUEL) / HPF NONE TRICH UR (test code = UTRICH) /HPF NONE YEAST UR (test code = UY) /HPF NONE SPERM UR (test code = USPERM) /HPF NONE PRO TIME AND [id number] 17:03:00 Test Item Value Reference Range Interpretation Comments PT (test code = 11.2 s 9.8-13.6 TT) INR (test code = 1.0 INR) INRH (test code = SUGGESTED THERAPEUTIC INRH) RANGE FOR INR: 2.5 - 3.5 For Patients with Prosthetic Valves or Patients with recurrent Thromboembolic Events 2.0 - 3.0 For Most Other Applications PTT (test code = 37.7 s 20.2-38.0 PTT) PTTH (test code = To monitor the PTTH) effectiveness of heparin, we offer the Anti-Xa (Heparin Assay). It can be used for either unfractionated or LMW Heparin. Order Code is ANTI-XA TROPONIN [id number] 17:01:00 Test Item Value Reference Range Interpretation Comments TROPONIN I (test code 3.99 pg/mL 0.00-45.20 = A84) Ref Range Change (test Please note the code = REF RANGE) change in reference range AMYLASE AND [id number] 17:01:00 Test Item Value Reference Range Interpretation Comments AMYLASE (test code = 10A) 38 U/L 30-118 LIPASE (test code = 60A) 18 IU/L 12-53 COMPREHENSIVE METABOLIC [id number] 17:01:00 Test Item Value Reference Range Interpretation Comments GLUCOSE (test code 91 mg/dL 75-100 = 06D) SODIUM (test code 142 mmol/L 136-145 = 01A) POTASSIUM (test 3.7 mmol/L 3.6-5.1 code = 01B) CHLORIDE (test 111 mmol/L 98-107 H code = 04A) CO2 (test code = 27 mmol/L 20-31 02A) ANION GAP (test 7.7 mmol/L code = ANG) BUN (test code = 10 mg/dL 9-23 05D) CREATININE (test 0.9 mg/dL 0.6-1.0 code = 03E) GFR (test code = 77 See_Comment L [Automated GFR) mL/min/1.73m\\S\\2 message] Th e system which generated this result transmit kody reference range : >=90. The reference range was not used to interpret this result as normal/abnormal . GFR 90 See_Comment [Automated DOMINICAN (test mL/min/1.73m\\S\\2 message] The code = GFRAA) system which generated this result transmit kody reference range : >=90. The reference range was not used to interpret this result as normal/abnormal . EGFR (test code = eGFR BY EGFR) CKD-EPI CALCULATION IS NOT RECOMMENDED FOR PATIENTS UNDER 18 YEARS OF AGE. BUN/CREA (test 11 12-20 L code = BCR) CALCIUM (test code 9.3 mg/dL 8.3-10.6 = 09D) BILI TOTAL (test 0.3 mg/dL 0.2-1.0 code = 11A) PROTEIN (test code 7.1 g/dL 5.7-8.2 = 07D) ALBUMIN (test code 4.3 g/dL 3.2-4.8 = 08D) GLOBULIN (test 2.8 g/dL 1.5-3.8 code = GLB) ALB/GLOB (test 1.5 1.0-2.6 code = AGRR) ALK PHOS (test 140 IU/L 46-116 H code = 35A) AST (test code = 19 IU/L See_Comment [Automated 30A) message] The system which generated this result transmit kody reference range : <=33. The reference range was not used to interpret this result as normal/abnormal . ALT (test code = 12 IU/L 10-49 31A) [id number] 17:01:00 Test Item Value Reference Range Interpretation Comments MAGNESIUM (test code = 48A) 1.7 mg/dL 1.6-2.6 SERUM [id number] 16:56:00 Test Item Value Reference Range Interpretation Comments PREG SRM (test code = PGS) NEGATIVE NEGATIVE CBC (INCLUDES AUTOMATED DIFFERENTIAL)2021-04-05 16:56:00 Test Item Value Reference Range Interpretation Comments WBC (test code = WBC) 8.2 10\\S\\3/uL 4.5-11.0 RBC (test code = RBC) 4.35 10\\S\\6/uL 4.20-5.60 HGB (test code = HBG) 11.2 g/dL 12.0-15.5 L HCT (test code = HCT) 36.2 % 35.0-44.0 MCV (test code = MCV) 83.2 fL 81.0-99.0 MCH (test code = MCH) 25.7 pg 27.0-31.0 L MCHC (test code = MCHC) 30.9 g/dL 32.0-36.0 L RDW (test code = RDW) 15.5 % 11.5-14.5 H PLT (test code = PLT) 289 10\\S\\3/uL 130-400 MPV (test code = MPV) 10.6 fL 9.4-12.4 NEUTROP # (test code = NE#) 5.3 10\\S\\3/uL 1.6-8.0 LYMPH # (test code = LY#) 2.0 10\\S\\3/uL 1.1-3.5 MONOCYTE # (test code = MO#) 0.5 10\\S\\3/uL 0.0-1.1 EOSINOPH # (test code = EO#) 0.3 10\\S\\3/uL 0.0-0.7 BASOPHIL # (test code = BA#) 0.0 10\\S\\3/uL 0.0-0.3 IG # (test code = IG#) 0.03 10\\S\\3/uL 0.00-0.06 NRBC # (test code = NRBC#) 0.00 10\\S\\3/uL 0.00-0.01 NEUTROPH % (test code = NE%) 64.4 % 35.0-73.0 LYMPH % (test code = LY%) 24.9 % 20.0-55.0 MONO % (test code = MO%) 6.3 % 2.5-10.0 EOSINOPH % (test code = EO%) 3.6 % 0.0-5.0 BASOPHIL % (test code = BA%) 0.4 % 0.0-2.0 IG % (test code = IG%) 0.4 % 0.0-0.8 NRBC% (test code = NRBC%) 0.0 % 0.0-0.2 MANDIFF (test code = MDIFF) NO RBC MORPH (test code = RBCMOR) NORMAL DRUGS OF [id number] 16:54:00 Test Item Value Reference Range Interpretation Comments DRUG SCRN (test code = URINE DRUG HDOA) SCREEN This is an unconfirmed screening result and should not be used for non-medical purposes CANNABINOD (test code NEGATIVE NEGATIVE = 88C) AMPHETAMINE (test code NEGATIVE NEGATIVE = 84A) BENZODIAZP (test code NEGATIVE NEGATIVE = 86A) BARBITURAT (test code NEGATIVE NEGATIVE = 85A) OPIATES (test code = POSITIVE NEGATIVE A 92B) COCAINE (test code = NEGATIVE NEGATIVE 87A) PHENCYCLID (test code NEGATIVE NEGATIVE = 66A) METHADONE (test code = NEGATIVE NEGATIVE 64A) DOAH (test code = DOAH.) URINE DRUGSCREEN Cut-off values are as follows: Cannabinoids 50 ng/mL Cocaine 300 ng/mL Amphetamines 1000 ng/mL Phencyclidine 25 ng/mL Benzodiazepines 200 ng.mL Methadone 300 ng/mL Barbiturates 200 ng/mL Opiates 300 ng/mL CBC with [id number] 03:49:41 Test Item Value Reference Range Interpretation Comments WBC (test code = See_Comment [Automated 6690-2) message] The sy stem which generated this result transmitted reference range : 4.30 - 11.10 10*3/?L. The reference range was not used to interpret this result as normal/abnormal . RBC (test code = See_Comment [Automated 789-8) message] The sy stem which generated this result transmitted reference range : 3.93 - 5.25 10*6/?L. The reference range was not used to interpret this result as normal/abnormal . HGB (test code = 10.8 g/dL 11.6-15.0 L 718-7) HCT (test code = 34.7 % 35.7-45.2 L 4544-3) MCV (test code = 82.0 fL 80.6-95.5 787-2) MCH (test code = 25.5 pg 25.9-32.8 L 785-6) MCHC (test code = 31.1 g/dL 31.6-35.1 L 786-4) RDW-SD (test code = 46.5 fL 39.0-49.9 97257-2) RDW-CV (test code = 15.5 % 12.0-15.5 788-0) PLT (test code = See_Comment [Automated 777-3) message] The sy stem which generated this result transmitted reference range : 166 - 358 10*3/ ?L. The reference r belinda was not used to interpret this result as normal/abnormal . MPV (test code = 10.5 fL 9.5-12.9 00069-9) IPF % (test code = 3.8 % 1.3-7.7 Platelet count 5655791171) measured by fluorescence method. NRBC/100 WBC (test See_Comment [Automat ed code = [id number]) message] The system which generated this result transmitted reference range : 0.0 - 10.0 /100 WBCs. The refer ence range was not u sed to interpret th is result as normal/abnormal . NRBC x10^3 (test code <0.01 See_Comment [Auto mated = [id number]) message] The s ystem which generated this result transmitted reference range : 10*3/?L. The reference range was not used to interpret this result as normal/abnormal . GRAN MAT (NEUT) % 58.0 % (test code = 770-8) IMM GRAN % (test code 0.30 % = 7679397562) LYMPH % (test code = 26.7 % 736-9) MONO % (test code = 9.0 % 5905-5) EOS % (test code = 5.4 % 713-8) BASO % (test code = 0.6 % 706-2) GRAN MAT x10^3(ANC) 3.95 10*3/uL 1.88-7.09 (test code = 4844295005) IMM GRAN x10^3 (test <0.03 0.00-0.06 code = 0021233673) LYMPH x10^3 (test code 1.82 10*3/uL 1.32-3.29 = 731-0) MONO x10^3 (test code 0.61 10*3/uL 0.33-0.92 = 742-7) EOS x10^3 (test code = 0.37 10*3/uL 0.03-0.39 711-2) BASO x10^3 (test code 0.04 10*3/uL 0.01-0.07 = 704-7) Lab Interpretation Abnormal (test code = 94449-1) [facility] [id number] 03:14:39 Test Item Value Reference Range Interpretation Comments NA (test code = 137 mmol/L 135-145 7243832253) K (test code = 4.1 mmol/L 3.5-5.0 6123243514) CL (test code = 105 mmol/L 98-108 1797808040) CO2 TOTAL (test code 26 mmol/L 23-31 = 7194840547) AGAP (test code = 2-16 9756042892) BUN (test code = 11 mg/dL 7-23 7791176080) GLUCOSE (test code = 97 mg/dL 70-110 1048145026) CREATININE (test code 0.96 mg/dL 0.50-1.04 = 1114924562) TOTAL BILI (test code 0.2 mg/dL 0.1-1.1 = 6382649262) CALCIUM (test code = 9.5 mg/dL 8.6-10.6 8001529539) T PROTEIN (test code 6.8 g/dL 6.3-8.2 = 8905288346) ALBUMIN (test code = 3.7 g/dL 3.5-5.0 4617173570) ALK PHOS (test code = 118 U/L 34-122 6731724374) ALTv (test code = 17 U/L 5-35 2-6) AST(SGOT) (test code 21 U/L 13-40 = 4265106595) eGFR (test code = mL/min/1.73m2 1161162119) MIKY (test code = MIKY) Association of Glomerular Filtration Rate (GFR) and Staging of Kidney Disease* + + +- +| GFR (mL/min/1.73 m2) ?| With Kidney Damage ?| ?Without Kidney Damage+ ------+ ----+ ------+| ?>90 ?| ?Stage one ?| ? Normal ?+ -+ + -+| ?60-89 ?| ?Stage two ?| ? Decreased GFR ? + + +- +| ?30-59 ?| ?Stage three ?| ? Stage three ? + + +- +| ?15-29 ?| ?Stage four ? | ? Stage four ?+ -+ + -+| ?<15 (or dialysis) ? ?| ?Stage five ? | ? Stage five ?+ -+ + -+ *Each stage assumes the associated GFR level has been in effect for at least three months. ?Stages 1 to 5, with or without kidney disease, indicate chronic kidney disease. Notes: Determination of stages one and two (with eGFR >59mL/min/1.73 m2) requires estimation of kidney damage for at least three months as defined by structural or functional abnormalities of the kidney, manifested by either:Pathological abnormalities or Markers of kidney damage (including abnormalities in the composition of the blood or urine or abnormalities in imaging tests). [facility] CenterLipase, [id number] 03:14:18 Test Item Value Reference Range Interpretation Comments LIPASE (test code = 5768187634) 37 U/L 0-220 Lab Interpretation (test code = Normal 13323-5) [facility] CenterPO[facility] [id number] 02:34:00 Test Item Value Reference Range Interpretation Comments POCT PREG (test code = 1605) negative On board controls acceptable with yes C Line (test code = 3574) POCT PREG LOT # (test code = 3575) [id number] POCT PREG TEST DATE (test 06/18/2022 code = 3576) Lab Interpretation (test code = Normal 18752-1) [facility] METABOLIC PANEL (NA, K, CL, CO2, GLUCOSE, BUN, CREATININE, CA)2021-03-28 17:01:12 Test Item Value Reference Range Interpretation Comments NA (test code = 137 mmol/L 135-145 1774470054) K (test code = 4.2 mmol/L 3.5-5.0 8997182342) CL (test code = 106 mmol/L 98-108 7876555118) CO2 TOTAL (test code 25 mmol/L 23-31 = 2288739448) AGAP (test code = 2-16 0419268305) BUN (test code = 11 mg/dL 7-23 8725243806) GLUCOSE (test code = 100 mg/dL 70-110 6126088054) CREATININE (test code 0.79 mg/dL 0.50-1.04 = 4849537819) CALCIUM (test code = 9.2 mg/dL 8.6-10.6 9239635411) eGFR (test code = mL/min/1.73m2 2378371614) MIKY (test code = MIKY) Association of Glomerular Filtration Rate (GFR) and Staging of Kidney Disease* + + +- +| GFR (mL/min/1.73 m2) ?| With Kidney Damage ?| ?Without Kidney Damage+ ------+ ----+ ------+| ?>90 ?| ?Stage one ?| ? Normal ?+ -+ + -+| ?60-89 ?| ?Stage two ?| ? Decreased GFR ? + + +- +| ?30-59 ?| ?Stage three ?| ? Stage three ? + + +- +| ?15-29 ?| ?Stage four ? | ? Stage four ?+ -+ + -+| ?<15 (or dialysis) ? ?| ?Stage five ? | ? Stage five ?+ -+ + -+ *Each stage assumes the associated GFR level has been in effect for at least three months. ?Stages 1 to 5, with or without kidney disease, indicate chronic kidney disease. Notes: Determination of stages one and two (with eGFR >59mL/min/1.73 m2) requires estimation of kidney damage for at least three months as defined by structural or functional abnormalities of the kidney, manifested by either:Pathological abnormalities or Markers of kidney damage (including abnormalities in the composition of the blood or urine or abnormalities in imaging tests). [facility] WITHOUT [id number] 13:19:50 Test Item Value Reference Range Interpretation Comments WBC (test code = 6690-2) See_Comment [A utomated message] The system [employer] generated this result transmit kody reference range : 4.30 - 11.10 10*3/?L. The reference range was not used to interpret this result as normal/abnormal . RBC (test code = 789-8) See_Comment [Au tomated message] The system [employer] generated this result transmit kody reference range : 3.93 - 5.25 10* 6/?L. The reference r belinda was not used to interpret this result as normal/abnormal . HGB (test code = 718-7) 10.6 g/dL 11.6-15.0 L HCT (test code = 4544-3) 34.3 % 35.7-45.2 L MCH (test code = 785-6) 25.7 pg 25.9-32.8 L MCV (test code = 787-2) 83.3 fL 80.6-95.5 MCHC (test code = 786-4) 30.9 g/dL 31.6-35.1 L PLT (test code = 777-3) See_Comment [Au tomated message] The system [employer] generated this result transmit kody reference range : 166 - 358 10*3/?L. The reference range was not used to interpret this result as normal/abnormal . MPV (test code = 11.6 fL 9.5-12.9 37514-6) RDW-CV (test code = 15.4 % 12.0-15.5 788-0) RDW-SD (test code = 46.8 fL 39.0-49.9 23728-4) NRBC x10^3 (test code = <0.01 See_Comment [Au tomated message] [id number]) The system [employer] generated this result transmit kody reference range : 10*3/?L. The reference range was not used to interpret this result as normal/abnormal . NRBC/100 WBC (test code See_Comment [Au tomated message] = 9522682319) The system [employer] generated this result transmit kody reference range : 0.0 - 10.0 /100 WBC s. The reference r belinda was not used to interpret this result as normal/abnormal . IPF % (test code = 1229379543) Lab Interpretation (test Abnormal code = 65086-2) [facility] [id number] 03:04:18 Test Item Value Reference Interpretation Comments Range TROPONIN I (test <0.012 See_Comment [Automated code = 2254702480) message] The system which generated this result transmitted reference range : <=0.034 ng/mL. The reference range was not used to interpret this result as normal/abnormal . MIKY (test code = Reference (Normal) MIKY) Range (defined by the 99th percentile reference limit): <= 0.034 ng/mL Note: Cardiac troponin begins to rise 3-4 hours after the onset of ischemia. Repeat in 4-6 hours if the sample was drawn within 3-4 hours of the onset of the symptom and found normal. Diagnosis of myocardial injury is made with acute changes in cTn concentrations with at least one serial sample above the 99th percentile upper reference limit (URL), taken together with the patient's clinical presentation. Biotin has been reported to cause a negative bias, interpret results relative to patient's use of biotin. Lab Interpretation Normal (test code = 01067-1) [facility] [id number] 03:01:17 Test Item Value Reference Range Interpretation Comments NT-proBNP (test code 29 pg/mL See_Comment [Autom ated = 2273212968) message] The system which generated this result transmitted reference range : <=125. The reference range was not used to interpret this result as normal/abnormal . MIKY (test code = MIKY) Biotin has been reported to cause a negative bias, interpret results relative to patient's use of biotin. Lab Interpretation Normal (test code = 70525-7) [facility]. METABOLIC PANEL ([id number] 02:52:16 Test Item Value Reference Range Interpretation Comments NA (test code = 137 mmol/L 135-145 8132900683) K (test code = 4.1 mmol/L 3.5-5.0 8380552335) CL (test code = 105 mmol/L 98-108 4461598672) CO2 TOTAL (test code = 26 mmol/L 23-31 4237535459) AGAP (test code = 2-16 1496438576) BUN (test code = 16 mg/dL 7-23 2440082292) GLUCOSE (test code = 99 mg/dL 70-110 1560986544) CREATININE (test code = 0.99 mg/dL 0.50-1.04 0873075340) TOTAL BILI (test code = 0.3 mg/dL 0.1-1.5 6571806189) CALCIUM (test code = 9.8 mg/dL 8.6-10.6 2625938549) T PROTEIN (test code = 7.6 g/dL 6.3-8.2 3067716926) ALBUMIN (test code = 4.0 g/dL 3.5-5.0 7288160915) ALK PHOS (test code = 152 U/L 34-122 H 5338626546) ALTv (test code = 24 U/L 5-35 1742-6) AST(SGOT) (test code = 29 U/L 13-40 4630856709) eGFR (test code = mL/min/1.73m2 4868258145) MIKY (test code = MIKY) Association of Glomerular Filtration Rate (GFR) and Staging of Kidney Disease* + --+ --+ ------+| GFR (mL/min/1.73 m2) ?| With Kidney Damage ?| ?Without Kidney Damage+ --------+ --------+ +| ?>90 ?| ?Stage one ?| ? Normal ?+ ---+ ---+ -------+| ?60-89 ?| ?Stage two ?| ? Decreased GFR ? + --+ --+ ------+| ?30-59 ?| ?Stage three ?| ? Stage three ? + --+ --+ ------+| ?15-29 ?| ?Stage four ? | ? Stage four ?+ ---+ ---+ -------+| ?<15 (or dialysis) ? ?| ?Stage five ? | ? Stage five ?+ ---+ ---+ -------+ *Each stage assumes the associated GFR level has been in effect for at least three months. ?Stages 1 to 5, with or without kidney disease, indicate chronic kidney disease. Notes: Determination of stages one and two (with eGFR >59mL/min/1.73 m2) requires estimation of kidney damage for at least three months as defined by structural or functional abnormalities of the kidney, manifested by either:Pathological abnormalities or Markers of kidney damage (including abnormalities in the composition of the blood or urine or abnormalities in imaging tests). Lab Interpretation Abnormal (test code = 57784-1) [facility] 02:52:16 Test Item Value Reference Range Interpretation Comments LIPASE (test code = 3396491267) 57 U/L 0-220 Lab Interpretation (test code = Normal 77133-2) [facility] CenterACTIV[facility] PARTIAL THRMPLAS [id number] 02:31:53 Test Item Value Reference Range Interpretation Comments APTT Patient (test See_Comment [Automat ed code = 3173-2) message] The system which generated this result transmitted reference range : 23 - 38 Seconds . The reference range was not used to interpr et this result as normal/abnormal . MIKY (test code = MIKY) The [facility] patient population mean normal value for aPTT is 30 seconds. Lab Interpretation Normal (test code = 37362-9) [facility] CenterPROTHROMBIN [facility] / [id number] 02:29:55 Test Item Value Reference Range Interpretation Comments PROTIME PATIENT (test See_Comment L [Auto mated message] code = 5964-2) The system wh ich generated this result transmitted ref erence range: 12.0 - 1 4.7 Seconds. The reference range was not used to int erpret this result as normal/abnormal . INR (test code = 6301-6) Nor mal INR <1.1; Warfarin Therap eutic range 2.0 to 3. 0 or 2.5 to 3.5, dep ending upon the indica tions. Lab Interpretation (test Abnormal code = 96497-7) [facility] WITH [id number] 02:26:36 Test Item Value Reference Range Interpretation Comments WBC (test code = See_Comment [Automated 6690-2) message] The sy stem which generated this result transmitted reference range : 4.30 - 11.10 10*3/?L. The reference range was not used to interpret this result as normal/abnormal . RBC (test code = See_Comment [Automated 789-8) message] The sy stem which generated this result transmitted reference range : 3.93 - 5.25 10*6/?L. The reference range was not used to interpret this result as normal/abnormal . HGB (test code = 11.4 g/dL 11.6-15.0 L 718-7) HCT (test code = 36.7 % 35.7-45.2 4544-3) MCV (test code = 81.7 fL 80.6-95.5 787-2) MCH (test code = 25.4 pg 25.9-32.8 L 785-6) MCHC (test code = 31.1 g/dL 31.6-35.1 L 786-4) RDW-SD (test code = 45.8 fL 39.0-49.9 67769-2) RDW-CV (test code = 15.2 % 12.0-15.5 788-0) PLT (test code = See_Comment [Automated 777-3) message] The sy stem which generated this result transmitted reference range : 166 - 358 10*3/ ?L. The reference r belinda was not used to interpret this result as normal/abnormal . MPV (test code = 11.0 fL 9.5-12.9 04383-3) NRBC/100 WBC (test See_Comment [Automat ed code = 2148645935) message] The system which generated this result transmitted reference range : 0.0 - 10.0 /100 WBCs. The refer ence range was not u sed to interpret th is result as normal/abnormal . NRBC x10^3 (test code <0.01 See_Comment [Auto mated = 8526840261) message] The s ystem which generated this result transmitted reference range : 10*3/?L. The reference range was not used to interpret this result as normal/abnormal . GRAN MAT (NEUT) % 61.7 % (test code = 770-8) IMM GRAN % (test code 0.20 % = 0475208430) LYMPH % (test code = 24.2 % 736-9) MONO % (test code = 9.1 % 5905-5) EOS % (test code = 4.2 % 713-8) BASO % (test code = 0.6 % 706-2) GRAN MAT x10^3(ANC) 5.40 10*3/uL 1.88-7.09 (test code = 2315750777) IMM GRAN x10^3 (test <0.03 0.00-0.06 code = 3436663135) LYMPH x10^3 (test code 2.12 10*3/uL 1.32-3.29 = 731-0) MONO x10^3 (test code 0.80 10*3/uL 0.33-0.92 = 742-7) EOS x10^3 (test code = 0.37 10*3/uL 0.03-0.39 711-2) BASO x10^3 (test code 0.05 10*3/uL 0.01-0.07 = 704-7) Lab Interpretation Abnormal (test code = 17728-5) [facility] CenterPOCT [id number] 02:04:00 Test Item Value Reference Range Interpretation Comments POCT PREG (test code = 1605) negative On board controls acceptable with present C Line (test code = 3574) POCT PREG LOT # (test code = 3575) [id number] POCT PREG TEST DATE (test 06/18/2022 code = 3576) Lab Interpretation (test code = Normal 24156-9) [facility] CenterLactic Acid Whole [id number] 02:00:42 Test Item Value Reference Range Interpretation Comments LACTIC ACID (test code = 1.38 mmol/L 0.50-2.20 0999171814) Lab Interpretation (test code = Normal 24078-5) [facility] CenterCOMPREHENSIVE METABOLIC [id number] 17:11:00 Test Item Value Reference Range Interpretation Comments SODIUM (test code = NA) 137 mmol/l 134.0-147.0 N POTASSIUM (test code = K) 4.0 mmol/L 3.6-5.2 N CHLORIDE (test code = CL) 102 mmol/l 98.0-107.0 N CARBON DIOXIDE (test code = CO2) 26.1 mmol/l 21.0-33.0 N ANION GAP (test code = GAP) 12.9 0-20 N GLUCOSE (test code = GLU) 108 mg/dl 70.0-110.0 N BLOOD UREA NITROGEN (test code = 13 mg/dl 7.0-18.0 N BUN) CREATININE (test code = CREAT) 1.18 mg/dL 0.60-1.30 N GFR NON BLACK (test code = 52 mL/min 95-105 L GFRNONBLACK) GFR BLACK (test code = GFRBLACK) 63 mL/min 115-127 L TOTAL PROTEIN (test code = PROT) 8.0 GM/DL 6.0-8.1 N ALBUMIN (test code = ALB) 3.4 gm/dL 3.2-4.7 N CALCIUM (test code = CA) 10.2 mg/dl 8.0-10.5 N BILIRUBIN TOTAL (test code = 0.3 mg/dl 0.0-1.0 N BILT) SGOT/AST (test code = AST) 19 Units/L 15-37 N SGPT/ALT (test code = ALT) 26 Units/L 12.0-78.0 N ALKALINE PHOSPHATASE TOTAL (test 140 Units/L 50.0-136.0 H code = ALKP) [id number] 17:11:00 Test Item Value Reference Range Interpretation Comments LIPASE (test code = LIP) 81 Units/L 65.0-230.0 N [id number] 17:11:00 Test Item Value Reference Range Interpretation Comments TROPONIN-I (test <0.02 NG/ML 0.00-0.06 N REFERENCE R BELINDA code = TROPI) TROPONIN I HEA LTHY INDIVIDUALS: <0 .06 ng/mL R/O ISCHE TUSHAR: 0.07 - 0.60 ng/ mL CUT-OFF RANGE F OR AMI: 0.60 - 1.5 ng/m L CBC W/AUTO [id number] 17:07:00 Test Item Value Reference Range Interpretation Comments WHITE BLOOD CELL (test code = 9.7 K/mm3 4.5-11.0 N WBC) RED BLOOD CELL (test code = 4.83 M/mm3 3.80-5.20 N RBC) HEMOGLOBIN (test code = HGB) 12.2 gm/dL 12.0-16.0 N HEMATOCRIT (test code = HCT) 40.4 % 36.0-48.0 N MEAN CELL VOLUME (test code = 83.6 UM3 82.0-99.0 N MCV) MEAN CELL HGB (test code = MCH) 25.3 UUG 25.5-32.5 L MEAN CELL HGB CONCETRATION 30.2 gm/dL 29.0-35.5 N (test code = MCHC) RED CELL DISTRIBUTION WIDTH 15.7 % 11.5-15.0 H (test code = RDW) RED CELL DISTRIBUTION WIDTH SD 47.5 fL 34.8-50.2 N (test code = RDW-SD) PLATELET COUNT (test code = 289 K/mm3 150-400 N PLT) MEAN PLATELET VOLUME (test code 11.5 fl 7.4-10.4 H = MPV) NEUTROPHIL % (test code = NT%) 67.7 % 49.0-76.0 N IMMATURE GRANULOCYTE % (test 0.3 % 0.0-0.4 N code = IG%) LYMPHOCYTE % (test code = LY%) 21.7 % 23.0-38.0 L MONOCYTE % (test code = MO%) 6.4 % 1.0-10.0 N EOSINOPHIL % (test code = EO%) 3.4 % 1.0-5.0 N BASOPHIL % (test code = BA%) 0.5 % 0.0-1.0 N NUCLEATED RBC % (test code = 0.0 % 0.0-0.1 N NRBC%) NEUTROPHIL # (test code = NT#) 6.6 K/mm3 2.4-6.3 H IMMATURE GRANULOCYTE # (test 0.03 x10 3/uL 0.00-0.07 N code = IG#) LYMPHOCYTE # (test code = LY#) 2.1 K/mm3 1.2-4.0 N MONOCYTE # (test code = MO#) 0.6 K/mm3 0.0-0.6 N EOSINOPHIL # (test code = EO#) 0.3 K/MM3 0.0-0.7 N BASOPHIL # (test code = BA#) 0.1 K/mm3 0.0-0.2 N NUCLEATED RBC # (test code = 0.00 X10 3uL 0.00-0.01 N NRBC#) MOVED FROM [facility] TO SEE BOARD- US PELVIS [id number] 13:57:00 [facility] [place] : 1975 Sex: F FAX: Tuan Robledo [phone] [place]: St: REG Name: LIANA ASHBY [facility] : 1975 Age/S: 46/F [address] [facility] Unit #: [id number] Loc: [address] Phys: Tuan Robledo [id number] Acct: [id number] Dis Date: Status: REG ER PHONE #: [phone] Exam Date: 03/26/2021 1348 FAX #: [phone] Reason: pelvic pain EXAMS: CPT CODE: [id number] US PELVIS COMPLETE 98525 EXAM: - US TRANSVAGINAL NON OB, - DUP AB/PEL/SC COMP, - US PELVIS COMPLETE INDICATION: pelvic pain LOCATION: T18 TECHNIQUE: Transabdominal, and transvaginalpelvic ultrasound was performed. Grayscale, color Doppler and Doppler with spectral imaging. FINDINGS: Uterus: measures 5.9 x 2.8 x 2.2 cm. Endometrial stripe measures 0.7 cm. No fibroids seen. Nonspecific calcifications noted. Right ovary: measures 1.2 x 0.9 x 1 cm. No mass or cyst seen. Ovarian blood flow is documented by pulse wave Doppler. Left ovary: measures 1.5 x 0.8 x 0.9 cm. No mass or cyst seen. Ovarian blood flow is difficult to document by pulse wave Doppler. No adnexal mass seen. No free fluid seen in the pelvis. IMPRESSION: Atrophic appearance of the uterus and ovaries which makes assessment somewhat difficult. Although the ovaries appear grossly unremarkable, blood flow is difficult to document in the left ovary. Please refer to the findings section for additional details. at 1739 Reported and signed by: Mario Pierre M.D. CC: Tuan ASHBY Technologist: FROYLAN LOW Trntnrd Date/Time/By: 03/26/2021 (6174) : By: [email or web address] PAGE 1 Signed Report FAX: Tuan Robledo [phone] [place]: St: REG ----- Name: LIANA ASHBY [facility] : 1975 Age/S: 46/F [id number] Loc: [address] [place], [place] Phys: Tuan Robledo [address] Acct: [id number] Dis Date: Status: REG ER PHONE #: [phone] Exam Date: 03/26/2021 1347 FAX #: [phone] Reason:pelvic pain EXAMS: CPT CODE: [id number] US PELVIS COMPLETE 23037 <Continued> Orig Print D/T: S: 03/26/2021 (1400) PAGE 2 Signed Report- DUP AB/PEL/SC COMP 2021-03-26 13:57:00 [facility] [place] : 1975 Sex: F FAX: Tuan Robledo [phone] [place]: St: REG Name: LIANA ASHBY [facility] : 1975 Age/S: 46/F [address] [facility] Unit #: [id number] Loc: [address] Phys: Tuan Robledo [id number] Acct: [id number] Dis Date: Status: REG ER PHONE #: [phone] Exam Date: 03/26/2021 1348 FAX #: [phone] Reason: pelvic pain EXAMS: CPT CODE: [id number] DUP AB/PEL/SC COMP 45576 EXAM: - US TRANSVAGINAL NON OB, - DUP AB/PEL/SC COMP, - US PELVIS COMPLETE INDICATION: pelvic pain LOCATION: T18 TECHNIQUE: Transabdominal, and transvaginalpelvic ultrasound was performed. Grayscale, color Doppler and Doppler with spectral imaging. FINDINGS: Uterus: measures 5.9 x 2.8 x 2.2 cm. Endometrial stripe measures 0.7 cm. No fibroids seen. Nonspecific calcifications noted. Right ovary: measures 1.2 x 0.9 x 1 cm. No mass or cyst seen. Ovarian blood flow is documented by pulse wave Doppler. Left ovary: measures 1.5 x 0.8 x 0.9 cm. No mass or cyst seen. Ovarian blood flow is difficult to document by pulse wave Doppler. No adnexal mass seen. No free fluid seen in the pelvis. IMPRESSION: Atrophic appearanceof the uterus and ovaries which makes assessment somewhat difficult. Although the ovaries appear grossly unremarkable, blood flow is difficult to document in the left ovary. Please refer to the findings section for additional details. at 4395 Reported and signed by: Mario Pierre M.D. CC: Tuan ASHBY Technologist: [id number] [facility]; [facility] Date/Time/By: 03/26/2021 (1311) : By: [email or web address] PAGE 1 Signed Report FAX: Tuan Robledo [phone] [place]: St: REG Name: LIANA ASHBY [facility] : 1975 Age/S: 46/F [address] [facility] Unit #: [id number] Loc: [address] [place] [address] Phys: Tuan Robledo [address] Acct: [id number] Dis Date: Status: REG ER PHONE #: [phone] Exam Date: 03/26/2021 1348 FAX #: [phone] Reason: pelvic pain EXAMS: CPT CODE: [id number] DUP AB/PEL/SC COMP 34996 <Continued> Orig Print D/T: S: 03/26/2021 (1400) PAGE 2 Signed Report- US TRANSVAGINAL NON [id number] 13:57:00 [facility] [place] : 1975 Sex: F FAX: Tuan Robledo [phone] [place]: St: REG Name: LIANA ASHBY [facility] : 1975 Age/S: 46/F [address] [facility] Unit #: [id number] Loc: [address] Phys: Tuan Robledo [id number] Acct: [id number] Dis Date: Status: REG ER PHONE #: [phone] Exam Date: 03/26/2021 [facility] FAX #: [phone] Reason: pelvic pain EXAMS: CPT CODE: [id number] [place] [address] EXAM: - US TRANSVAGINAL NON OB, - DUP AB/PEL/SC COMP, - US PELVIS COMPLETE INDICATION: pelvic pain LOCATION: T18 TECHNIQUE: Transabdominal, and transvaginalpelvic ultrasound was performed. Grayscale, color Doppler and Doppler with spectral imaging. FINDINGS: Uterus: measures 5.9 x 2.8 x 2.2 cm. Endometrial stripe measures 0.7 cm. No fibroids seen. Nonspecific calcifications noted. Right ovary: measures 1.2x 0.9 x 1 cm. No mass or cyst seen. Ovarian blood flow is documented by pulse wave Doppler. Left ovary: measures 1.5 x 0.8 x 0.9 cm. No mass or cyst seen. Ovarian blood flow is difficult to document by pulse wave Doppler. No adnexal mass seen. No free fluid seen in the pelvis. IMPRESSION: Atrophic appearance of the uterus and ovaries which makes assessment somewhat difficult. Although the ovaries appear grossly unremarkable, blood flow is difficult to document in the left ovary. Please refer to the findings section for additional details. [id number] Reported and signed by: Mario Pierre M.D. CC: Tuan ASHBY Technologist: [id number]; FROYLAN LOW [facility] Date/Time/By: 03/26/2021 (1353) : By: [email or web address] PAGE 1 Signed Report FAX: Tuan Robledo [phone] [place]: St: REG Name: LIANA ASHBY [facility] : 1975 Age/S: 46/F [address] [facility] Unit #: [id number] Loc: [address] Phys: Tuan Robledo [address] Acct: [id number] Dis Date: Status: REG ER PHONE #: [phone] Exam Date: 03/26/2021 1341 FAX #: [phone] Reason: pelvic pain EXAMS: CPT CODE: [id number] [place] [address] <Continued> Orig Print D/T: S: 03/26/2021 (1400) PAGE 2 Signed Report URINALYSIS [id number] 13:44:00 Test Item Value Reference Range Interpretation Comments UA COLOR (test code = YELLOW COLU) UA APPEARANCE (test code CLEAR = APPU) UA GLUCOSE DIPSTICK (test NORMAL mg/dl NORMAL code = DGLUU) UA BILIRUBIN DIPSTICK NEGATIVE mg/dL NEGATIVE (test code = BILU) UA KETONE DIPSTICK (test NEGATIVE mg/dl NEGATIVE code = KETU) UA SPECIFIC GRAVITY (test 1.015 1.000-1.030 code = SGU) UA BLOOD DIPSTICK (test 25 Jorge Alberto/micL Jorge Alberto/micL NEGATIVE A code = WINSTON) UA PH DIPSTICK (test code 7.0 5.0-9.0 = FOSTER) UA PROTEIN DIPSTICK (test NEGATIVE mg/dl NEGATIVE code = PROU) UA UROBILINIOGEN DIPSTICK NORMAL mg/dl NORMAL (test code = URO) UA NITRITE DIPSTICK (test NEGATIVE NEGATIVE code = SU) UA LEUKOCYTE ESTERASE NEGATIVE Debi/micL NEGATIVE DIPSTICK (test code = LEUU) UA WBC (test code = WBCU) 0-3 WBC/HPF NONE UA RBC (test code = RBCU) 3-5 RBC/HPF 0-3 UA EPITHELIAL CELLS (test 5-10 EPI/HPF 0-3 A code = EPIU) UA BACTERIA (test code = MANY NONE A BACU) UR HCG [id number] 13:44:00 Test Item Value Reference Range Interpretation Comments UR HCG QUAL (test code = HCGQLU) NEGATIVE NEGATIVE DRUGS OF ABUSE SCREEN [id number] 13:37:00 Test Item Value Reference Interpretation Comments Range URN COCAINE (test NEGATIVE NEGATIVE Cocaine cu t-off code = COCAURN) concentratio n: 300 ng/mL URN CANNABINOIDS NEGATIVE NEGATIVE Cannabinoid s cut-off (test code = concentration: 50 ng/mL CANNABURN) URN AMPHETAMINE NEGATIVE NEGATIVE Amphetamine cut-off (test code = concentration: 1000 ng/mL AMPHETURN) URN BARBITURATE POSITIVE NEGATIVE A UNCONFIRMED INITIAL (test code = SCREENING ONLY; SUGGEST BARBITURN) ADDITIONALCONFI RMATORY TESTING.Barbitu rate cut-off concentration: 200 ng/mL URN BENZODIAZEPINE NEGATIVE NEGATIVE Benzodiaz epine cut-off (test code = concentration: 200 ng/mL BENZOURN) URN OPIATES (test NEGATIVE NEGATIVE Opiates cu t-off code = OPIATURN) concentrati on: 2000 ng/mL URN PHENCYCLIDINE NEGATIVE NEGATIVE Phencyclid ine(PCP) cut-off (PCP) (test code = concentra tion: 25 ng/ml PHENCURN) URN METHADONE (test NEGATIVE NEGATIVE Methadon e cut-off code = METHAURN) concentrati on: 300 ng/mL CT ABDOMEN AND PELVIS WITH [id number] 13:07:50 [facility] ASHBYDOB: 1975 Sex: FEXAMINATION:CT ABDO MEN AND PELVIS WITH CONTRASTCLINICAL INDICATION:Female, 46 years old with Abdominal painTECHNIQUE: Thin section axial post-contrast contiguous images were obtained through the abdomen and pelvis followed by coronal and sagittal multiplanar reformations.One or more of the following dose reduction techniques were used: Automated exposure control, adjustment of the mA and/or kV according to patient size, and/or iterative reconstruction. COMPARISON: 02/15/2021, 01/22/2021FINDINGS:Lower Chest: Visualized lung bases are clear. Heart is normal in size. No pericardial or pleural effusion.Liver: Normal in size and contour. No focal lesions. Bile ducts are of normal caliber.Gallbladder: Surgically absent.Pancreas: Normal appearance without focal lesion.Spleen: Normal in size and contour.Adrenals: Normal configuration.Kidneys and ureters: Normal size and contour. No hydronephrosis.Bladder/Reproductive Organs: Normal in appearance. Unremarkable reproductive organsBowel: Postsurgical changes of the stomach are stable. Loops of bowel without wall thickening or obstruction. Normal appendix. No free air, free fluid, or fluid collection.Lymph nodes: There are no pathologically enlarged abdominopelvic lymph nodes.Retroperitoneum: No mass or hemorrhage. Abdominal aorta and inferior vena cava are normal in course and caliber. 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, a normal anatomic variant.Abdominal wall: No hernia or mass.Bones: No acute abnormality or suspicious bony lesion.IMPRESSION:No acute abnormality or significant interval change.Electronically signed by: Chaparro Jones MD 03/20/2021 1:07 PM CDT [id number] METABOLIC [id number] 12:27:00 Test Item Value Reference Range Interpretation Comments GLUCOSE (test code 104 mg/dL 75-100 H = 06D) SODIUM (test code 139 mmol/L 136-145 = 01A) POTASSIUM (test 4.3 mmol/L 3.6-5.1 code = 01B) CHLORIDE (test 109 mmol/L 98-107 H code = 04A) CO2 (test code = 27 mmol/L 20-31 02A) ANION GAP (test 7.3 mmol/L code = ANG) BUN (test code = 9 mg/dL 9-23 05D) CREATININE (test 1.0 mg/dL 0.6-1.0 code = 03E) GFR (test code = 68 See_Comment L [Automated GFR) mL/min/1.73m\\S\\2 message] Th e system which generated this result transmit kody reference range : >=90. The reference range was not used to interpret this result as normal/abnormal . GFR 79 See_Comment L [Automated DOMINICAN (test mL/min/1.73m\\S\\2 message] The code = GFRAA) system which generated this result transmit kody reference range : >=90. The reference range was not used to interpret this result as normal/abnormal . EGFR (test code = eGFR BY EGFR) CKD-EPI CALCULATION IS NOT RECOMMENDED FOR PATIENTS UNDER 18 YEARS OF AGE. BUN/CREA (test 9 12-20 L code = BCR) CALCIUM (test code 9.7 mg/dL 8.3-10.6 = 09D) BILI TOTAL (test 0.3 mg/dL 0.2-1.0 code = 11A) PROTEIN (test code 7.7 g/dL 5.7-8.2 = 07D) ALBUMIN (test code 4.6 g/dL 3.2-4.8 = 08D) GLOBULIN (test 3.1 g/dL 1.5-3.8 code = GLB) ALB/GLOB (test 1.5 1.0-2.6 code = AGRR) ALK PHOS (test 155 IU/L 46-116 H code = 35A) AST (test code = 15 IU/L See_Comment [Automated 30A) message] The system which generated this result transmit kody reference range : <=33. The reference range was not used to interpret this result as normal/abnormal . ALT (test code = 8 IU/L 10-49 L 31A) [id number] 12:27:00 Test Item Value Reference Range Interpretation Comments AMYLASE (test code = 10A) 47 U/L 30-118 LIPASE [id number] 12:27:00 Test Item Value Reference Range Interpretation Comments LIPASE (test code = 60A) 28 IU/L 12-53 URINE [id number] 12:20:00 Test Item Value Reference Range Interpretation Comments PREG UR (test code = PGU) NEGATIVE NEGATIVE [id number] 12:19:00 Test Item Value Reference Range Interpretation Comments COLOR (test code = COLU) YELLOW YELLOW CLARITY (test code = CLA) CLEAR CLEAR GLUCOSE UR (test code = UA GLUCOSE) NEGATIVE NEGATIVE BILI UR (test code = BILE) NEGATIVE NEGATIVE KETONES UR (test code = JAIR) NEGATIVE NEGATIVE SP GRAVITY (test code = SPGR) 1.007 1.005-1.030 PH UR (test code = PH) 7.0 4.5-8.0 PROTEIN UR (test code = PU) NEGATIVE NEGATIVE UROBIL UR (test code = UROQ) 0.2 EU/dL 0.2-1.0 NITRITE UR (test code = NITRITE) NEGATIVE NEGATIVE BLOOD UR (test code = UA BLOOD) NEGATIVE NEGATIVE LEUK ES UR (test code = LEUK) NEGATIVE NEGATIVE CBC (INCLUDES AUTOMATED DIFFERENTIAL)2021-03-20 12:15:00 Test Item Value Reference Range Interpretation Comments WBC (test code = WBC) 9.0 10\\S\\3/uL 4.5-11.0 RBC (test code = RBC) 4.95 10\\S\\6/uL 4.20-5.60 HGB (test code = HBG) 12.8 g/dL 12.0-15.5 HCT (test code = HCT) 41.4 % 35.0-44.0 MCV (test code = MCV) 83.6 fL 81.0-99.0 MCH (test code = MCH) 25.9 pg 27.0-31.0 L MCHC (test code = MCHC) 30.9 g/dL 32.0-36.0 L RDW (test code = RDW) 15.9 % 11.5-14.5 H PLT (test code = PLT) 306 10\\S\\3/uL 130-400 MPV (test code = MPV) 10.5 fL 9.4-12.4 NEUTROP # (test code = NE#) 6.7 10\\S\\3/uL 1.6-8.0 LYMPH # (test code = LY#) 1.4 10\\S\\3/uL 1.1-3.5 MONOCYTE # (test code = MO#) 0.5 10\\S\\3/uL 0.0-1.1 EOSINOPH # (test code = EO#) 0.3 10\\S\\3/uL 0.0-0.7 BASOPHIL # (test code = BA#) 0.0 10\\S\\3/uL 0.0-0.3 IG # (test code = IG#) 0.02 10\\S\\3/uL 0.00-0.06 NRBC # (test code = NRBC#) 0.00 10\\S\\3/uL 0.00-0.01 NEUTROPH % (test code = NE%) 74.8 % 35.0-73.0 H LYMPH % (test code = LY%) 16.0 % 20.0-55.0 L MONO % (test code = MO%) 5.8 % 2.5-10.0 EOSINOPH % (test code = EO%) 2.8 % 0.0-5.0 BASOPHIL % (test code = BA%) 0.4 % 0.0-2.0 IG % (test code = IG%) 0.2 % 0.0-0.8 NRBC% (test code = NRBC%) 0.0 % 0.0-0.2 MANDIFF (test code = MDIFF) NO RBC MORPH (test code = RBCMOR) NORMAL CBC W/AUTO [id number] 02:48:00 Test Item Value Reference Range Interpretation Comments WHITE BLOOD CELL (test code = 8.3 K/mm3 4.5-11.0 N WBC) RED BLOOD CELL (test code = 4.78 M/mm3 3.80-5.20 N RBC) HEMOGLOBIN (test code = HGB) 12.1 gm/dL 12.0-16.0 N HEMATOCRIT (test code = HCT) 40.1 % 36.0-48.0 N MEAN CELL VOLUME (test code = 83.9 UM3 82.0-99.0 N MCV) MEAN CELL HGB (test code = MCH) 25.3 UUG 25.5-32.5 L MEAN CELL HGB CONCETRATION 30.2 gm/dL 29.0-35.5 N (test code = MCHC) RED CELL DISTRIBUTION WIDTH 16.2 % 11.5-15.0 H (test code = RDW) RED CELL DISTRIBUTION WIDTH SD 49.3 fL 34.8-50.2 N (test code = RDW-SD) PLATELET COUNT (test code = 255 K/mm3 150-400 N PLT) MEAN PLATELET VOLUME (test code 11.8 fl 7.4-10.4 H = MPV) NEUTROPHIL % (test code = NT%) 58.4 % 49.0-76.0 N IMMATURE GRANULOCYTE % (test 0.1 % 0.0-0.4 N code = IG%) LYMPHOCYTE % (test code = LY%) 29.9 % 23.0-38.0 N MONOCYTE % (test code = MO%) 7.7 % 1.0-10.0 N EOSINOPHIL % (test code = EO%) 3.4 % 1.0-5.0 N BASOPHIL % (test code = BA%) 0.5 % 0.0-1.0 N NUCLEATED RBC % (test code = 0.0 % 0.0-0.1 N NRBC%) NEUTROPHIL # (test code = NT#) 4.8 K/mm3 2.4-6.3 N IMMATURE GRANULOCYTE # (test 0.01 x10 3/uL 0.00-0.07 N code = IG#) LYMPHOCYTE # (test code = LY#) 2.5 K/mm3 1.2-4.0 N MONOCYTE # (test code = MO#) 0.6 K/mm3 0.0-0.6 N EOSINOPHIL # (test code = EO#) 0.3 K/MM3 0.0-0.7 N BASOPHIL # (test code = BA#) 0.0 K/mm3 0.0-0.2 N NUCLEATED RBC # (test code = 0.00 X10 3uL 0.00-0.01 N NRBC#) STOMATOCYTES (test code = STO) 2+ PLATELET ESTIMATE (test code = ADQ PLTEST) - CT ABD PELVIS [id number] 01:37:00 [facility] [place] [place] : 1975 Sex: F FAX: Mac Randall MD [phone] [place]: St: [facility] FAX: Beau Carballo MD Name: LIANA ASHBY [facility] : 1975 Age/S: 46/F [address] [facility] Unit: [id number] Loc: E.ERS2 [place], [place]: [place] [id number] Acct: [id number] Dis Date: Status: REG ER PHONE #: [phone] Exam Date: 03/16/2021 012 FAX #: [phone] Reason: lower abdominal pain EXAMS: CPT CODE: [id number] CT ABD PELVIS W/CONT 88577 Examination: CT scan abdomen and pelvis with contrast. Location code: 60. VINNY HNIQUE: Multiple axial images of the abdomen and pelvis were obtained after intravenous administration of contrast with sagittal and coronal reconstructions. CT examination was performed using automated dose reduction Discussion: Clinical history significant for abdominal pain. The liver, spleen, adrenal glands, pancreas and kidneys are normal in appearance. Patient is status post cholecystectomy. Surgical clips identified in the region of the stomach. No enlarged retroperitoneal, pelvic or inguinaladenopathy is noted. Incidental note is made of a small umbilical hernia. Appendix is normal in appearance. There is no CT evidence for appendicitis. Bowel loops are normal in caliber. The bladder is distended and grossly unremarkable. Small calcification is identified in the uterus. No other abnormalmasses or fluid collections identified within the abdomen and/or pelvis. Lung bases are clear. IMPRESSION: 1. Small umbilical hernia. 2. Otherwise unremarkable CT scan of abdomen and pelvis. Electron ically Signed by ROBERT HERNANDEZ on 03/16/2021 at 0137 Reported and signed by: ROBERT HERNANDEZ CC: Mac Parekh M.D.; Beau Carballo MD Technologist: MICHAEL PANG RT(R)(CT) Trnscrd Dt/Tm: 03/16/2021 (0137) [email or web address] Orig Print D/T: S: 03/16/2021 (0140 PAGE 1 Signed ReportBASIC METABOLIC [id number] 01:18:00 Test Item Value Reference Range Interpretation Comments SODIUM (test code = NA) 139 mmol/l 134.0-147.0 N POTASSIUM (test code = K) 3.8 mmol/L 3.6-5.2 N CHLORIDE (test code = CL) 105 mmol/l 98.0-107.0 N CARBON DIOXIDE (test code = CO2) 25.1 mmol/l 21.0-33.0 N ANION GAP (test code = GAP) 12.7 0-20 N GLUCOSE (test code = GLU) 95 mg/dl 70.0-110.0 N BLOOD UREA NITROGEN (test code = 10 mg/dl 7.0-18.0 N BUN) CREATININE (test code = CREAT) 1.16 mg/dL 0.60-1.30 N GFR NON BLACK (test code = 53 mL/min 95-105 L GFRNONBLACK) GFR BLACK (test code = GFRBLACK) 65 mL/min 115-127 L CALCIUM (test code = CA) 9.5 mg/dl 8.0-10.5 N HEPATIC FUNCTION PANEL [id number] 01:18:00 Test Item Value Reference Range Interpretation Comments TOTAL PROTEIN (test code = PROT) 7.1 GM/DL 6.0-8.1 N ALBUMIN (test code = ALB) 3.2 gm/dL 3.2-4.7 N BILIRUBIN TOTAL (test code = 0.1 mg/dl 0.0-1.0 N BILT) BILIRUBIN DIRECT (test code = <0.1 mg/dl 0.0-0.3 N BILD) SGOT/AST (test code = AST) 14 Units/L 15-37 L SGPT/ALT (test code = ALT) 19 Units/L 12.0-78.0 N ALKALINE PHOSPHATASE TOTAL (test 124 Units/L 50.0-136.0 N code = ALKP) [id number] 01:18:00 Test Item Value Reference Range Interpretation Comments LIPASE (test code = LIP) 50 Units/L 65.0-230.0 L [id number] 01:18:00 Test Item Value Reference Range Interpretation Comments TROPONIN-I (test <0.02 NG/ML 0.00-0.06 N REFERENCE R BELINDA code = TROPI) TROPONIN I HEA LTHY INDIVIDUALS: <0 .06 ng/mL R/O ISCHE TUSHAR: 0.07 - 0.60 ng/ mL CUT-OFF RANGE F OR AMI: 0.60 - 1.5 ng/m L DRUGS OF ABUSE SCREEN [id number] 00:19:00 Test Item Value Reference Interpretation Comments Range URN COCAINE (test NEGATIVE NEGATIVE Cocaine cu t-off code = COCAURN) concentratio n: 300 ng/mL URN CANNABINOIDS NEGATIVE NEGATIVE Cannabinoid s cut-off (test code = concentration: 50 ng/mL CANNABURN) URN AMPHETAMINE NEGATIVE NEGATIVE Amphetamine cut-off (test code = concentration: 1000 ng/mL AMPHETURN) URN BARBITURATE NEGATIVE NEGATIVE Barbiturate cut-off (test code = concentration: 200 ng/mL BARBITURN) URN BENZODIAZEPINE NEGATIVE NEGATIVE Benzodiaz epine cut-off (test code = concentration: 200 ng/mL BENZOURN) URN OPIATES (test POSITIVE NEGATIVE A UNCONFIRME D INITIAL code = OPIATURN) SCREENING O NLY; SUGGEST ADDITIONALCONFI RMATORY TESTING.Opiates cut-off concentration: 2000 ng/mL URN PHENCYCLIDINE NEGATIVE NEGATIVE Phencyclid ine(PCP) cut-off (PCP) (test code = concentra tion: 25 ng/ml PHENCURN) URN METHADONE (test NEGATIVE NEGATIVE Methadon e cut-off code = METHAURN) concentrati on: 300 ng/mL ADD ONUA RFLX MICR CULT IF [id number] 23:39:00 Test Item Value Reference Range Interpretation Comments UA GLUCOSE DIPSTICK NORMAL mg/dl NORMAL (test code = DGLUU) UA BILIRUBIN DIPSTICK NEGATIVE mg/dL NEGATIVE (test code = BILU) UA KETONE DIPSTICK NEGATIVE mg/dl NEGATIVE (test code = KETU) UA SPECIFIC GRAVITY 1.010 1.000-1.030 (test code = SGU) UA BLOOD DIPSTICK 10 Jorge Alberto/micL NEGATIVE A (test code = WINSTON) Jorge Alberto/micL UA PH DIPSTICK (test 6.5 5.0-9.0 code = FOSTER) UA PROTEIN DIPSTICK NEGATIVE mg/dl NEGATIVE (test code = PROU) UA UROBILINIOGEN NORMAL mg/dl NORMAL DIPSTICK (test code = URO) UA NITRITE DIPSTICK NEGATIVE NEGATIVE (test code = SU) UA LEUKOCYTE ESTERASE NEGATIVE NEGATIVE DIPSTICK (test code = Debi/micL LEUU) UA WBC (test code = 0-3 WBC/HPF NONE WBCU) UA CULTURE NEEDED? NO, WBC<10 Culture Chk Criteria not (test code = UACULT) Criteria met, Ur ine Culture cancelled. UA SQUAMOUS CELLS 0-2 #/hpf (test code = SQU) Indication for culture: Dysuria/FrequencySpecimen Description: CLEAN CATCHUR HCG [id number] 23:39:00 Test Item Value Reference Range Interpretation Comments UR HCG QUAL (test code = HCGQLU) NEGATIVE NEGATIVE Indication for culture: Dysuria/FrequencySpecimen Description: CLEAN CATCHUrine color [id number] 21:57:00 Test Item Value Reference Range Interpretation Comments Urine Color (test code = 5778-6) YELLOW YELLOW [facility] [id number] 21:57:00 Test Item Value Reference Range Interpretation Comments Urine Clarity (test code = 66919-4) CLEAR CLEAR [facility] by Test strip 2021-03-15 21:57:00 Test Item Value Reference Range Interpretation Comments Urine Specific Roselle (test code = 1.015 1.010-1.025 5811-5) [facility]ball[facility] pH measurement by automated test strip 2021-03-15 21:57:00 Test Item Value Reference Range Interpretation Comments Urine pH (test code = 00758-7) 7 5-7 [facility]ballU[facility] leukocyte esterase detection by automated test [id number] 21:57:00 Test Item Value Reference Range Interpretation Comments Urine Leukocyte Esterase (test code NEGATIVE NEGATIVE = 36370-4) [facility]ball[facility] nitrite detection by automated test [id number] 21:57:00 Test Item Value Reference Range Interpretation Comments Urine Nitrite (test code = 64556-2) NEGATIVE NEGATIVE [facility]ballUrine protein detection by automated test [id number] 21:57:00 Test Item Value Reference Range Interpretation Comments Urine Protein (test code = 53067-9) NEGATIVE NEGATIVE [facility]ballU[facility] glucose detection by automated test [id number] 21:57:00 Test Item Value Reference Range Interpretation Comments Urine Glucose (UA) (test code = NEGATIVE NEGATIVE 09783-5) [facility]ball[facility] ketones detection by automated test [id number] 21:57:00 Test Item Value Reference Range Interpretation Comments Urine Ketones (test code = 15788-3) NEGATIVE NEGATIVE [facility]ballUrine urobilinogen measurement by test strip (mass/volume)2021-03-15 21:57:00 Test Item Value Reference Range Interpretation Comments Urine Urobilinogen (test code = 0.2 0.2-1 30316-9) [facility]ball[facility] total bilirubin [id number] 21:57:00 Test Item Value Reference Range Interpretation Comments Urine Bilirubin (test code = 1977-8) NEGATIVE NEGATIVE [facility]ballUrine erythrocytes [id number] 21:57:00 Test Item Value Reference Range Interpretation Comments Urine Blood (test code = 05902-6) TRACE NEGATIVE [facility]ballAutomated urine sediment leukocyte count by microscopy (number/high power field)2021-03-15 21:57:00 Test Item Value Reference Range Interpretation Comments Urine WBC (test code = 5821-4) 0-5 0-5 [facility]ballErythrocytes detection in urine sediment by light [id number] 21:57:00 Test Item Value Reference Range Interpretation Comments Urine RBC (test code = 80814-3) 6-10 0-5 [facility] TomballBacteria detection in urine sediment by light [id number] 21:57:00 Test Item Value Reference Range Interpretation Comments Urine Bacteria (test code = 47993-1) FEW NONE [facility] TomballEpithelial cells detection in urine sediment by light [id number] 21:57:00 Test Item Value Reference Range Interpretation Comments Urine Epithelial Cells (test code = MANY NONE 54770-1) [facility] TomballUrine human chorionic gonadotropin (hCG) [id number] 21:57:00 Test Item Value Reference Range Interpretation Comments Urine Test (test code = NEGATIVE NEGATIVE 6-3) [facility] TomballCT ABDOMEN/PELVIS [id number] 01:22:00 [facility] 1975 [place] [address] Patient Name: LIANA ASHBY MR #: [id number] : 1975 Age/Sex: 46/F Req #: [id number] Adm Physician: Ordered by: ERENDIRA MARTIN DO Report #: [id number] Location: ER Room/Bed: Procedure: [id number] CT/CT ABDOMEN/PELVIS W Exam Date: 03/11/21 Exam Time: 2345 REPORT STATUS: Signed TECHNIQUE: CT of the abdomen and pelvis WITH intravenous contrast and WITH oral contrast. Dose modulation, iterative reconstruction, and/or weight-based adjustment of the mA/kV was utilized to reduce the radiation dose to as low as reasonably achievable. INDICATION: Lower abdominal pain. COMPARISON: 01/19/2021. FINDINGS: LOWER THORAX: Unchanged 0.3 cm subpleural pulmonary nodules in the right lower lobe compared to CT from two months prior. (Images two and four) and within the left lower lobe (image three).HEPATOBILIARY: No focal hepatic lesions. Gallbladder is surgically absent. No biliary ductal dilatation. SPLEEN: No splenomegaly. There is a calcified granuloma. PANCREAS: No focal masses or ductal dilatation. ADRENALS: No adrenal nodules. KIDNEYS/URETERS: No hydronephrosis, stones, or masses. PELVIC ORGANS/BLADDER: Unremarkable. PERITONEUM/RETROPERITONEUM: No free air or fluid. LYMPH NODES: No lymphadenopathy. VESSELS: Unremarkable. 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 No obstruction. No bowel distention or wall thickening. Normal appendix. BONES AND SOFT TISSUES: No acute osseous abnormality. Soft tissues areunremarkable. IMPRESSION: 1. No acute abnormality on CT of the abdomen and pelvis. 2. Subpleural 0.4 cm pulmonary nodules are present. If patient has low risk for cancer, no routine follow-up is needed. If patient is high risk for cancer, consider optional follow-up CT in 12 months. Signed by: Michael Franz on 03/12/2021 1:22 AM Dictated By: MICHAEL FRANZ MD 4 Transcribed By: LEANA on 03/12/21121 COPY TO: ERENDIRA MARTIN color determination 2021-03-11 23:19:00 Test Item Value Reference Range Interpretation Comments Urine Color (test code = 5778-6) YELLOW YELLOW [facility]ballUrine [id number] 23:19:00 Test Item Value Reference Range Interpretation Comments Urine Clarity (test code = 61736-4) CLEAR CLEAR [facility] Urine by Test strip 2021-03-11 23:19:00 Test Item Value Reference Range Interpretation Comments Urine Specific Roselle (test code = 1.015 1.010-1.025 5811-5) [facility]ballUrine pH measurement by automated test strip 2021-03-11 23:19:00 Test Item Value Reference Range Interpretation Comments Urine pH (test code = 45726-6) 7 5-7 [facility]ballUrine leukocyte esterase detection by automated test [id number] 23:19:00 Test Item Value Reference Range Interpretation Comments Urine Leukocyte Esterase (test code = TRACE NEGATIVE 95067-5) [facility]ballUrine nitrite detection by automated test [id number] 23:19:00 Test Item Value Reference Range Interpretation Comments Urine Nitrite (test code = 78692-8) NEGATIVE NEGATIVE [facility]ballUrine protein detection by automated test [id number] 23:19:00 Test Item Value Reference Range Interpretation Comments Urine Protein (test code = 97902-0) NEGATIVE NEGATIVE [facility]ballUrine glucose detection by automated test [id number] 23:19:00 Test Item Value Reference Range Interpretation Comments Urine Glucose (UA) (test code = NEGATIVE NEGATIVE 20458-1) [facility]ballUrine ketones detection by automated test [id number] 23:19:00 Test Item Value Reference Range Interpretation Comments Urine Ketones (test code = 72851-0) NEGATIVE NEGATIVE [facility]ballUrine urobilinogen measurement by test strip (mass/volume)2021-03-11 23:19:00 Test Item Value Reference Range Interpretation Comments Urine Urobilinogen (test code = 0.2 0.2-1 69011-9) [facility]ballUrine total bilirubin [id number] 23:19:00 Test Item Value Reference Range Interpretation Comments Urine Bilirubin (test code = 1977-8) NEGATIVE NEGATIVE [facility]ballUrine erythrocytes [id number] 23:19:00 Test Item Value Reference Range Interpretation Comments Urine Blood (test code = 68448-8) TRACE NEGATIVE [facility] TomballAutomated urine sediment leukocyte count by microscopy (number/high power field)2021-03-11 23:19:00 Test Item Value Reference Range Interpretation Comments Urine WBC (test code = 5821-4) 11-20 0-5 [facility] TomballErythrocytes detection in urine sediment by light [id number] 23:19:00 Test Item Value Reference Range Interpretation Comments Urine RBC (test code = 95987-1) 0-5 0-5 [facility] TomballBacteria detection in urine sediment by light [id number] 23:19:00 Test Item Value Reference Range Interpretation Comments Urine Bacteria (test code = 00652-6) FEW NONE [facility] TomballEpithelial cells detection in urine sediment by light [id number] 23:19:00 Test Item Value Reference Range Interpretation Comments Urine Epithelial Cells (test code = FEW NONE 38958-1) [facility] TomballUrine human chorionic gonadotropin (hCG) [id number] 23:19:00 Test Item Value Reference Range Interpretation Comments Urine Test (test code = NEGATIVE NEGATIVE 2105-3) [facility] TomballAutomated erythrocyte mean corpuscular volume 2021-03-11 20:20:00 Test Item Value Reference Range Interpretation Comments Mean Corpuscular Volume (test code = 84.5 81-99 787-2) [facility]ballAutomated erythrocyte mean corpuscular hemoglobin (mass per erythrocyte)2021-03-11 20:20:00 Test Item Value Reference Range Interpretation Comments Mean Corpuscular Hemoglobin (test code 25.3 28-32 = 785-6) [facility]ballAutomated erythrocyte mean corpuscular hemoglobin concentration measurement (mass/volume)2021-03-11 20:20:00 Test Item Value Reference Range Interpretation Comments Mean Corpuscular Hemoglobin Concent 29.9 31-35 (test code = 786-4) [facility] TomballRDW AsfBd-[id number] 20:20:00 Test Item Value Reference Range Interpretation Comments Red Cell Distribution Width (test code 15.7 11.7-14.4 = 99764-3) [facility] TomballAutomated blood platelet count (count/volume) 2021-03-11 20:20:00 Test Item Value Reference Range Interpretation Comments Platelet Count (test code = 777-3) 266 140-360 [facility] TomballAutomated blood segmented neutrophil count as percentage of total mjkheesmso3400-95-38 20:20:00 Test Item Value Reference Range Interpretation Comments Neutrophils (%) (Auto) (test code = 57.1 38.7-80.0 69270-9) [facility] TomballAutomated blood lymphocyte count as percentage ot total [id number] 20:20:00 Test Item Value Reference Range Interpretation Comments Lymphocytes (%) (Auto) (test code = 30.5 18.0-39.1 736-9) [facility]ballAutomated blood monocyte count as percentage of total [id number] 20:20:00 Test Item Value Reference Range Interpretation Comments Monocytes (%) (Auto) (test code = 7.8 4.4-11.3 5905-5) [facility] TomballAutomated blood eosinophil count as percentage of total hynmzavkgd9088-15-88 20:20:00 Test Item Value Reference Range Interpretation Comments Eosinophils (%) (Auto) (test code = 3.9 0.0-6.0 713-8) [facility] TomballAutomated blood basophil count as percentage of total rsjtumhnli8679-57-65 20:20:00 Test Item Value Reference Range Interpretation Comments Basophils (%) (Auto) (test code = 0.5 0.0-1.0 706-2) [facility] TomballFluoroscopic procedure less than one hour [id number] 20:20:00 Test Item Value Reference Range Interpretation Comments IM GRANULOCYTES % (test code = IM 0.2 0.0-1.0 GRANULOCYTES %) [facility] TomballAutomated blood neutrophil [id number] 20:20:00 Test Item Value Reference Range Interpretation Comments Neutrophils # (Auto) (test code = 4.7 2.1-6.9 751-8) [facility] TomballBlood lymphocytes count (number/volume) 2021-03-11 20:20:00 Test Item Value Reference Range Interpretation Comments Lymphocytes # (Auto) (test code = 2.5 1.0-3.2 29673-9) [facility] TomballBlood monocytes automated count (number/volume)2021-03-11 20:20:00 Test Item Value Reference Range Interpretation Comments Monocytes # (Auto) (test code = 742-7) 0.6 0.2-0.8 [facility] TomballAutomated blood eosinophil [id number] 20:20:00 Test Item Value Reference Range Interpretation Comments Eosinophils # (Auto) (test code = 0.3 0.0-0.4 711-2) [facility] TomballAutomated blood basophil count (count/volume) 2021-03-11 20:20:00 Test Item Value Reference Range Interpretation Comments Basophils # (Auto) (test code = 704-7) 0.0 0.0-0.1 [facility] TomballFluoroscopic procedure less than one hour hfgjstkv3134-74-23 20:20:00 Test Item Value Reference Range Interpretation Comments Absolute Immature Granulocyte (auto 0.02 0-0.1 (test code = Absolute Immature Granulocyte (auto) [facility] or plasma sodium measurement (moles/volume)2021-03-11 20:20:00 Test Item Value Reference Range Interpretation Comments Sodium Level (test code = 2951-2) 139 136-145 [facility] Centererum or plasma potassium measurement (moles/volume)2021-03-11 20:20:00 Test Item Value Reference Range Interpretation Comments Potassium Level (test code = 2823-3) 3.8 3.5-5.1 [facility] Centererum or plasma chloride measurement (moles/volume)2021-03-11 20:20:00 Test Item Value Reference Range Interpretation Comments Chloride Level (test code = 2075-0) 105 98-107 [facility] Centererum or plasma carbon dioxide, total measurement (moles/volume)2021-03-11 20:20:00 Test Item Value Reference Range Interpretation Comments Carbon Dioxide Level (test code = 21 -2027-9) [facility] Centererum or plasma anion [id number] 20:20:00 Test Item Value Reference Range Interpretation Comments Anion Gap (test code = 49962-1) 16.8 8-16 [facility] [facility] urea nitrogen measurement (mass/volume)2021-03-11 20:20:00 Test Item Value Reference Range Interpretation Comments Blood Urea Nitrogen (test code = 9 12-11 3094-0) [facility] creatinine measurement (mass/volume)2021-03-11 20:20:00 Test Item Value Reference Range Interpretation Comments Creatinine (test code = 2160-0) 1.20 0.57-1.11 [facility] urea nitrogen/creatinine mass [id number] 20:20:00 Test Item Value Reference Range Interpretation Comments BUN/Creatinine Ratio (test code = 11-10 3097-3) [facility] TomballEstimated glomerular filtration rate (GFR) [id number] 20:20:00 Test Item Value Reference Range Interpretation Comments Estimat Glomerular 49 See_Comment [Automat ed message] The Filtration Rate (test system which generated code = 543045046) this resul t transmitted reference range : 60-. The reference r belinda was not used to int erpret this result as normal/abnormal . [facility] TomballGlucose [id number] 20:20:00 Test Item Value Reference Range Interpretation Comments Glucose Level (test code = YCR6424) 87 74-118 [facility] calcium measurement (mass/volume)2021-03-11 20:20:00 Test Item Value Reference Range Interpretation Comments Calcium Level (test code = 71390-4) 9.4 8.4-10.2 [facility] total bilirubin measurement (mass/volume)2021-03-11 20:20:00 Test Item Value Reference Range Interpretation Comments Total Bilirubin (test code = 1975-2) 0.2 0.2-1.2 [facility] TomballFluoroscopic procedure less than one hour [id number] 20:20:00 Test Item Value Reference Range Interpretation Comments Aspartate Amino Transf (AST/SGOT) (test 15 5-34 code = Aspartate Amino Transf (AST/SGOT)) [facility] alanine aminotransferase measurement (enzymatic activity/volume)2021-03-11 20:20:00 Test Item Value Reference Range Interpretation Comments Alanine Aminotransferase (ALT/SGPT) 13 0-55 (test code = 1742-6) [facility] protein measurement (mass/volume)2021-03-11 20:20:00 Test Item Value Reference Range Interpretation Comments Total Protein (test code = 2885-2) 7.5 6.5-8.1 [facility] albumin measurement (mass/volume)2021-03-11 20:20:00 Test Item Value Reference Range Interpretation Comments Albumin (test code = 1751-7) 3.5 3.5-5.0 [facility] TomballPlasma globulin measurement (mass/volume) 2021-03-11 20:20:00 Test Item Value Reference Range Interpretation Comments Globulin (test code = 76566-6) 4.0 2.3-3.5 [facility] albumin/globulin mass ratio 2021-03-11 20:20:00 Test Item Value Reference Range Interpretation Comments Albumin/Globulin Ratio (test code = 0.9 0.8-2.0 1759-0) [facility] alkaline phosphatase measurement (enzymatic activity/volume)2021-03-11 20:20:00 Test Item Value Reference Range Interpretation Comments Alkaline Phosphatase (test code = 126 40-150 6768-6) [facility] plasma lipase measurement (enzymatic activity/volume)2021-03-11 20:20:00 Test Item Value Reference Range Interpretation Comments Lipase (test code = 3040-3) 12 8-78 [facility] TomballBlood leukocytes automated count (number/volume)2021-03-11 20:20:00 Test Item Value Reference Range Interpretation Comments White Blood Count (test code = 6690-2) 8.17 4.8-10.8 [facility]ballBlood erythrocytes automated count (number/volume)2021-03-11 20:20:00 Test Item Value Reference Range Interpretation Comments Red Blood Count (test code = 789-8) 4.66 3.6-5.1 [facility] TomballBlood hemoglobin measurement (moles/volume) 2021-03-11 20:20:00 Test Item Value Reference Range Interpretation Comments Hemoglobin (test code = 16956-1) 11.8 12.0-16.0 [facility] TomballAutomated blood hematocrit (volume fraction) 2021-03-11 20:20:00 Test Item Value Reference Range Interpretation Comments Hematocrit (test code = 4544-3) 39.4 34.2-44.1 [facility] TomballGASTRIC,[id number] 14:14:00 Test Item Value Reference Range Interpretation Comments GASTRIC,BIOPSY (test code = GASTB) -----RUN DATE: 03/09/21 [place] - Lab PAGE 1 RUN TIME: 1414 Specimen Inquiry RUN USER: INTERFACE -----PATIENT: LIANA ASHBY LOC: [id number] U #: [id number] AGE/SX: 46/F ROOM: [facility] RE03/04/21REG DR: Gwendolyn Singh MD : 77 BED: 1 DIS: 03/09/21 STATUS: DIS IN TLOC: ----- SPEC #: [id number] RECD: 03/07/21 STATUS: BRAD CARSON #: [id number] SANTHOSH: 03/07/21- SUBM DR: Gwendolyn Singh MD ENTERED: 03/07/21 SP TYPE: GASTRIC BX OTHR DR: Self Referred Mac Hardwick MD, Advitya MDORDERED: REQUEST COPIES TO: Self Referred Mac Hardwick MD [address] [place], [place] [address] Gwendolyn Singh MD [address] [place], [place] [id number] Isabela Aranda MD [facility] [place], [place] [id number] OTHER PHONE [phone] (CELL) ICD CODES: 569.0 - PROCEDURES: REQUEST (03/07/21) TISSUES: GASTRIC MUCOUS MEMBRANE - 1.ANTRUM BX 2.RECTAL POLYP BX CLINICAL HISTORY Abdominal pain Gastritis, colon polyp FINAL DIAGNOSIS A. STOMACH, ANTRUM BIOPSY: UNREMARKABLE ANTRAL TYPE MUCOSA WITH LYMPHOID AGGREGATE. B. RECTAL POLYP BIOPSY: HYPERPLASTIC POLYP. CPT CODES: 95584 X 2. CONTINUED ON NEXT PAGE -----RUN DATE: 03/09/21 [facility] Lab PAGE 2 RUN TIME: 2784 Specimen Inquiry RUN USER: INTERFACE -----SPEC #: [id number] PATIENT: LIANA ASHBY #[id number] (Continued) MACROSCOPIC A. Received in formalin consists of two 0.4 x 0.2 x 0.2 cm pride soft irregular tissues whichare submitted in toto into cassette A. B. Received in formalin consists of three pride soft irregular tissues averaging 0.2 x 0.2 x0.1 cm and are submitted in toto into cassette B. MICROSCOPIC A. Sections of the antrum biopsy demonstrate antral type mucosa with no foveolarhyperplasia, significantly increased chronic inflammation in the lamina propria, acuteinflammation involving the glands, granulomas, viral cytopathic changes, intestinalmetaplsia, dysplasia or malignancy identified. A lymphoid aggregate is identified. TheGiemsa stain is negative for H. Pylori organisms. B. Sections of the rectal polyp demonstrate a colonic polyp with focal hyperplastic glands. No dysplasia or malignancy are identified. Signed SIGNATURE ON FILE Nicole Pena 03/09/21 1414 ----- END OF REPORT C REACTIVE [id number] 16:10:00 Test Item Value Reference Range Interpretation Comments C REACTIVE PROTEIN 2.0 mg/dL 0.0-0.9 H DHARMESH YEBOAH NOTE OF (test code = CRP) NEW CRP RE FERENCE RANGE BASIC METABOLIC [id number] 14:39:00 Test Item Value Reference Range Interpretation Comments SODIUM (test code = NA) 140 mmol/l 134.0-147.0 N POTASSIUM (test code = K) 4.5 mmol/L 3.6-5.2 N CHLORIDE (test code = CL) 106 mmol/l 98.0-107.0 N CARBON DIOXIDE (test code = CO2) 26.1 mmol/l 21.0-33.0 N ANION GAP (test code = GAP) 12.4 0-20 N GLUCOSE (test code = GLU) 90 mg/dl 70.0-110.0 N BLOOD UREA NITROGEN (test code = 8 mg/dl 7.0-18.0 N BUN) CREATININE (test code = CREAT) 1.00 mg/dL 0.60-1.30 N GFR NON BLACK (test code = 63 mL/min 95-105 L GFRNONBLACK) GFR BLACK (test code = GFRBLACK) 77 mL/min 115-127 L CALCIUM (test code = CA) 9.2 mg/dl 8.0-10.5 N CBC W/AUTO [id number] 14:27:00 Test Item Value Reference Range Interpretation Comments WHITE BLOOD CELL (test code = 5.5 K/mm3 4.5-11.0 N WBC) RED BLOOD CELL (test code = 4.08 M/mm3 3.80-5.20 N RBC) HEMOGLOBIN (test code = HGB) 10.4 gm/dL 12.0-16.0 L HEMATOCRIT (test code = HCT) 34.5 % 36.0-48.0 L MEAN CELL VOLUME (test code = 84.6 UM3 82.0-99.0 N MCV) MEAN CELL HGB (test code = MCH) 25.5 UUG 25.5-32.5 N MEAN CELL HGB CONCETRATION 30.1 gm/dL 29.0-35.5 N (test code = MCHC) RED CELL DISTRIBUTION WIDTH 15.3 % 11.5-15.0 H (test code = RDW) RED CELL DISTRIBUTION WIDTH SD 46.8 fL 34.8-50.2 N (test code = RDW-SD) PLATELET COUNT (test code = 266 K/mm3 150-400 N PLT) MEAN PLATELET VOLUME (test code 10.4 fl 7.4-10.4 N = MPV) NEUTROPHIL % (test code = NT%) 55.2 % 49.0-76.0 N IMMATURE GRANULOCYTE % (test 0.2 % 0.0-0.4 N code = IG%) LYMPHOCYTE % (test code = LY%) 28.2 % 23.0-38.0 N MONOCYTE % (test code = MO%) 9.9 % 1.0-10.0 N EOSINOPHIL % (test code = EO%) 6.0 % 1.0-5.0 H BASOPHIL % (test code = BA%) 0.5 % 0.0-1.0 N NUCLEATED RBC % (test code = 0.0 % 0.0-0.1 N NRBC%) NEUTROPHIL # (test code = NT#) 3.1 K/mm3 2.4-6.3 N IMMATURE GRANULOCYTE # (test 0.01 x10 3/uL 0.00-0.07 N code = IG#) LYMPHOCYTE # (test code = LY#) 1.6 K/mm3 1.2-4.0 N MONOCYTE # (test code = MO#) 0.6 K/mm3 0.0-0.6 N EOSINOPHIL # (test code = EO#) 0.3 K/MM3 0.0-0.7 N BASOPHIL # (test code = BA#) 0.0 K/mm3 0.0-0.2 N NUCLEATED RBC # (test code = 0.00 X10 3uL 0.00-0.01 N NRBC#) - XR L-SPINE 06/21 [id number] 14:11:00 [facility] [place] : 1975 Sex: F FAX: Mac Randall MD [phone] [place]: St: [facility] FAX: Gwendolyn Singh MD [phone] FAX: John Pompa MD Name: LIANA AHSBY [facility] : 1975 Age/S: 46/F [address] Unit #: [id number] Loc: [address] [place] [address] Phys: [place] [id number] Acct: [id number] Dis Date: Status:ADM IN PHONE #: [phone] Exam Date: 03/08/2021 1408 FAX #: [phone] Reason: BACK PAIN EXAMS:CPT CODE: [id number] XR L-SPINE 2/3 VIEWS 97532 EXAM: XR LUMBAR SPINE 3 VIEWS INDICATION: BACK PAIN LOCATION: B2 COMPARISON: CT dated September 13, 2020 TECHNIQUE: AP, coned lateral, and lateral radiographsof the lumbar spine FINDINGS: 5 lumbar type, non-rib bearing vertebral bodies are present. The vertebral bodies are normal in height, alignment and density. The facet joints and spinous processes are normal in alignment. There is mild facet joint arthropathy. The intervertebral disc spaces are normal.Sacroiliac joints are normal. No soft tissue abnormality is identified. IMPRESSION: No acute osseous abnormality of the lumbar spine. Mild facet joint arthropathy. at 1411 Reported and signed by: Jennifer Torre M.D. CC: Philomena Hardwick M.D.; Gwendolyn Singh MD; John Pompa MD Technologist: ADRIANA CARRANZA Trntnrd Date/Time/By: 03/08/2021 (3888) : By: MarisaMD16 PAGE 1 Signed Report FAX: Mac Randall MD [phone] [place]: St: ADM FAX: Gwendolyn Singh MD [phone] FAX: John Pompa MD Name: LIANA ASHBY [facility] : 1975 Age/S: 46/F [address] [facility] [facility] Unit #: [id number] Loc: [address] [place] [address] Phys:[place] [id number] Acct: [id number] Dis Date: Status: ADM IN PHONE #: [phone] Exam Date: 03/08/2021 140 FAX #: [phone] Reason: BACK PAIN EXAMS: CPT CODE: [id number] XR L-SPINE 2/3 VIEWS 68373 <Continued> Orig Print D/T: S: 03/08/2021 (7933) PAGE 2 Signed ReportCOVID 19 Asymptomatic IH [id number] 11:35:00 Test Item Value Reference Range Interpretation Comments COVID 19 NEGATIVE NEGATIVE Negative result s should be Asymptomatic IH AG treated a s presumptive and (test code = ifinconsistent with COVNONPUIAG) clinical signs and symptoms, or ne cessaryfor patient managem ent, should be tested with an alternativemole cular assay. Negative results do not preclude ZXUU-YaB-7sawml tion and should not be u sed as the sole basis forp atient management deci sions. Negative result s should beconsidered in the context of a pa tient's recent exposure s,history, presence of cli nical signs and symptoms consistentwith COVID-19. - CT ABD PELVIS [id number] 23:11:00 [facility] [place] : 1975 Sex: F FAX: Mac Randall MD [phone] [place]: St: REG FAX: Beau Carballo MD Name: LIANA ASHBY [facility] : 1975 Age/S: 46/F [address] [facility] Unit: [id number] Loc: [address] Phys: [place] [address] Acct: [id number] Dis Date: Status: REG ER PHONE #: [phone] Exam Date: 03/04/20216 FAX #: [phone] Reason: lower abdominal pain EXAMS: CPT CODE: [id number] CT ABD PELVIS W/CONT 93801 EXAM: - CT ABD PELVIS W/CONT INDICATION: 46 years -old Female with lower abdominal pain TECHNIQUE: Contrast - IV contrast was given. No oral contrast was given Portal venous phase- abdomen and pelvis No delayed phase images were obtained. Reconstructions - coronal and sagittal planes Automated exposure reduction (Auto mA/Smart mA) was utilized in compliance with ACR Image [employer]isely COMPARISON: None FINDINGS: Statements: None. Thoracic: Bibasilar atelectasis is demonstrated. Hepatobiliary: The liver is normal without focal lesion. Gallbladder surgically absent. No biliary dilation. Pancreas: Normal. Spleen: Normal. Adrenals: Normal. Genitourinary: The kidneys are normal. No evidence of hydronephrosis. Evaluation of the bladder is limited, but no obvious bladder abnormality is present. Gastrointestinal: No bowel obstruction or perienteric inflammation. The appendix is normal. Vascular: Atherosclerotic calcifications are seen within the aorta and branch vessels. Bones/Soft Tissues: No acute osseous findings. Peritoneum/Other: No extraluminal fluid. PAGE 1 Signed Report (CONTINUED) FAX: Mac Randall MD [phone] [place]: St: [facility] FAX: Beau Carballo MD Name: LIANA ASHBY [facility] : 1975 Age/S: 46/F [address] [facility] Unit: [id number] Loc: [address] [place], [place]: [place] [address] Acct: [id number] Dis Date: Status: REG ER PHONE #: [phone] Exam Date: 03/04/2021 2246 FAX #: [phone] Reason: lower abdominal pain EXAMS: CPT CODE: [id number] CT ABD PELVIS W/CONT 72567 <Continued> IMPRESSION: 1. Normal appendix. No acute inflammatory process. No evidence of bowel obstruction. at 2311 Reported and signed by: Mac Cantu M.D. CC: Mac Hardwick M.D.; Beau Carballo MDTechnologist: JHOAN OWENS Trnscrd Dt/Tm: 03/04/2021 (2311) [email or web address].[email or web address] Orig Print D/T: S: 03/04/2021 (2314 PAGE 2 Signed ReportBASIC METABOLIC [id number] 22:52:00 Test Item Value Reference Range Interpretation Comments SODIUM (test code = NA) 138 mmol/l 134.0-147.0 N POTASSIUM (test code = K) 4.7 mmol/L 3.6-5.2 N CHLORIDE (test code = CL) 105 mmol/l 98.0-107.0 N CARBON DIOXIDE (test code = CO2) 22.1 mmol/l 21.0-33.0 N ANION GAP (test code = GAP) 15.6 0-20 N GLUCOSE (test code = GLU) 102 mg/dl 70.0-110.0 N BLOOD UREA NITROGEN (test code = 10 mg/dl 7.0-18.0 N BUN) CREATININE (test code = CREAT) 1.16 mg/dL 0.60-1.30 N GFR NON BLACK (test code = 53 mL/min 95-105 L GFRNONBLACK) GFR BLACK (test code = GFRBLACK) 65 mL/min 115-127 L CALCIUM (test code = CA) 9.1 mg/dl 8.0-10.5 N HEPATIC FUNCTION PANEL [id number] 22:52:00 Test Item Value Reference Range Interpretation Comments TOTAL PROTEIN (test code = PROT) 6.8 GM/DL 6.0-8.1 N ALBUMIN (test code = ALB) 3.1 gm/dL 3.2-4.7 L BILIRUBIN TOTAL (test code = 0.3 mg/dl 0.0-1.0 N BILT) BILIRUBIN DIRECT (test code = <0.1 mg/dl 0.0-0.3 N BILD) SGOT/AST (test code = AST) 24 Units/L 15-37 N SGPT/ALT (test code = ALT) 18 Units/L 12.0-78.0 N ALKALINE PHOSPHATASE TOTAL (test 143 Units/L 50.0-136.0 H code = ALKP) [id number] 22:52:00 Test Item Value Reference Range Interpretation Comments LIPASE (test code = LIP) 44 Units/L 65.0-230.0 L [id number] 22:52:00 Test Item Value Reference Range Interpretation Comments TROPONIN-I (test <0.02 NG/ML 0.00-0.06 N REFERENCE R BELINDA code = TROPI) TROPONIN I HEA LTHY INDIVIDUALS: <0 .06 ng/mL R/O ISCHE TUSHAR: 0.07 - 0.60 ng/ mL CUT-OFF RANGE F OR AMI: 0.60 - 1.5 ng/m L CBC W/AUTO [id number] 22:33:00 Test Item Value Reference Range Interpretation Comments WHITE BLOOD CELL (test code = 8.5 K/mm3 4.5-11.0 N WBC) RED BLOOD CELL (test code = 4.37 M/mm3 3.80-5.20 N RBC) HEMOGLOBIN (test code = HGB) 11.1 gm/dL 12.0-16.0 L HEMATOCRIT (test code = HCT) 36.8 % 36.0-48.0 N MEAN CELL VOLUME (test code = 84.2 UM3 82.0-99.0 N MCV) MEAN CELL HGB (test code = MCH) 25.4 UUG 25.5-32.5 L MEAN CELL HGB CONCETRATION 30.2 gm/dL 29.0-35.5 N (test code = MCHC) RED CELL DISTRIBUTION WIDTH 15.3 % 11.5-15.0 H (test code = RDW) RED CELL DISTRIBUTION WIDTH SD 46.7 fL 34.8-50.2 N (test code = RDW-SD) PLATELET COUNT (test code = 285 K/mm3 150-400 N PLT) MEAN PLATELET VOLUME (test code 10.6 fl 7.4-10.4 H = MPV) NEUTROPHIL % (test code = NT%) 60.2 % 49.0-76.0 N IMMATURE GRANULOCYTE % (test 0.2 % 0.0-0.4 N code = IG%) LYMPHOCYTE % (test code = LY%) 28.3 % 23.0-38.0 N MONOCYTE % (test code = MO%) 7.1 % 1.0-10.0 N EOSINOPHIL % (test code = EO%) 3.8 % 1.0-5.0 N BASOPHIL % (test code = BA%) 0.4 % 0.0-1.0 N NUCLEATED RBC % (test code = 0.0 % 0.0-0.1 N NRBC%) NEUTROPHIL # (test code = NT#) 5.1 K/mm3 2.4-6.3 N IMMATURE GRANULOCYTE # (test 0.02 x10 3/uL 0.00-0.07 N code = IG#) LYMPHOCYTE # (test code = LY#) 2.4 K/mm3 1.2-4.0 N MONOCYTE # (test code = MO#) 0.6 K/mm3 0.0-0.6 N EOSINOPHIL # (test code = EO#) 0.3 K/MM3 0.0-0.7 N BASOPHIL # (test code = BA#) 0.0 K/mm3 0.0-0.2 N NUCLEATED RBC # (test code = 0.00 X10 3uL 0.00-0.01 N NRBC#) URINALYSIS [id number] 22:18:00 Test Item Value Reference Range Interpretation Comments UA COLOR (test code = COLU) STRAW UA APPEARANCE (test code = CLEAR APPU) UA GLUCOSE DIPSTICK (test NORMAL mg/dl NORMAL code = DGLUU) UA BILIRUBIN DIPSTICK (test NEGATIVE mg/dL NEGATIVE code = BILU) UA KETONE DIPSTICK (test NEGATIVE mg/dl NEGATIVE code = KETU) UA SPECIFIC GRAVITY (test 1.010 1.000-1.030 code = SGU) UA BLOOD DIPSTICK (test NEGATIVE Jorge Alberto/micL NEGATIVE code = WINSTON) UA PH DIPSTICK (test code = 6.0 5.0-9.0 FOSTER) UA PROTEIN DIPSTICK (test NEGATIVE mg/dl NEGATIVE code = PROU) UA UROBILINIOGEN DIPSTICK NORMAL mg/dl NORMAL (test code = URO) UA NITRITE DIPSTICK (test NEGATIVE NEGATIVE code = SU) UA LEUKOCYTE ESTERASE NEGATIVE Debi/micL NEGATIVE DIPSTICK (test code = LEUU) UA WBC (test code = WBCU) 0-3 WBC/HPF NONE UA RBC (test code = RBCU) 0-2 RBC/HPF 0-3 UA EPITHELIAL CELLS (test 1-3 EPI/HPF 0-3 code = EPIU) UA BACTERIA (test code = MOD NONE BACU) Specimen comments: Clean CatchUR HCG [id number] 22:15:00 Test Item Value Reference Range Interpretation Comments UR HCG QUAL (test code = HCGQLU) NEGATIVE NEGATIVE Indication for culture: Dysuria/FrequencySpecimen Description: CLEAN CATCHURINE AND [id number] 21:07:00 Test Item Value Reference Range Interpretation Comments UA Color (test code = Light Yellow UA Color) *NA*(03/04/21 4:07 PM) [facility] [id number] 21:07:00 Test Item Value Reference Range Interpretation Comments UA Turbidity (test code Slight *ABN*(03/04/21 = UA Turbidity) 4:07 PM) [facility] [id number] 21:07:00 Test Item Value Reference Range Interpretation Comments UA Spec Grav (test code = UA Spec 1.018 1 Grav) [facility] [id number] 21:07:00 Test Item Value Reference Range Interpretation Comments UA pH (test code = UA pH) 6.0 1 5.0-8.0 [facility] [id number] 21:07:00 Test Item Value Reference Range Interpretation Comments UA Protein (test code Negative (03/04/21 4:07 = UA Protein) PM) [facility] [id number] 21:07:00 Test Item Value Reference Range Interpretation Comments UA Glucose (test code Negative *NA*(03/04/21 = UA Glucose) 4:07 PM) [facility] [id number] 21:07:00 Test Item Value Reference Range Interpretation Comments UA Ketones (test code Negative *NA*(03/04/21 = UA Ketones) 4:07 PM) [facility] [id number] 21:07:00 Test Item Value Reference Range Interpretation Comments UA Bili (test code = Negative *NA*(03/04/21 UA Bili) 4:07 PM) [facility] [id number] 21:07:00 Test Item Value Reference Range Interpretation Comments UA Blood (test code = Small *ABN*(03/04/21 UA Blood) 4:07 PM) [facility] [id number] 21:07:00 Test Item Value Reference Range Interpretation Comments UA Urobilinogen (test code = UA <=1.0 mg/dL 0.1-1.0 Urobilinogen) [facility] [id number] 21:07:00 Test Item Value Reference Range Interpretation Comments UA Nitrite (test code Negative (03/04/21 4:07 = UA Nitrite) PM) [facility] [id number] 21:07:00 Test Item Value Reference Range Interpretation Comments UA Leuk Est (test code Trace *ABN*(03/04/21 = UA Leuk Est) 4:07 PM) [facility] [id number] 21:07:00 Test Item Value Reference Range Interpretation Comments UA Sq Epi (test code = UA Sq Epi) Few /LPF [facility] [id number] 21:07:00 Test Item Value Reference Range Interpretation Comments UA WBC (test code = 3 See_Comment [Automa kody message] The UA WBC) system which ge nerated this result transmit kody reference range : <=5. The reference range was not used to interpr et this result as michell l/abnormal. [facility] [id number] 21:07:00 Test Item Value Reference Range Interpretation Comments UA RBC (test code = 2 See_Comment [Automa kody message] The UA RBC) system which ge nerated this result transmit kody reference range : <=2. The reference range was not used to interpr et this result as michell l/abnormal. [facility] [id number] 21:07:00 Test Item Value Reference Range Interpretation Comments UA Mucus (test code = UA Mucus) Few /LPF [facility] [id number] 21:07:00 Test Item Value Reference Range Interpretation Comments UA Color (test code = Light Yellow UA Color) *NA*(03/04/21 4:07 PM) [facility] [id number] 21:07:00 Test Item Value Reference Range Interpretation Comments UA Turbidity (test code Slight *ABN*(03/04/21 = UA Turbidity) 4:07 PM) [facility] [id number] 21:07:00 Test Item Value Reference Range Interpretation Comments UA Spec Grav (test code = UA Spec 1.018 1 Grav) [facility] [id number] 21:07:00 Test Item Value Reference Range Interpretation Comments UA pH (test code = UA pH) 6.0 1 5.0-8.0 [facility] [id number] 21:07:00 Test Item Value Reference Range Interpretation Comments UA Protein (test code Negative (03/04/21 4:07 = UA Protein) PM) [facility] [id number] 21:07:00 Test Item Value Reference Range Interpretation Comments UA Glucose (test code Negative *NA*(03/04/21 = UA Glucose) 4:07 PM) [facility] [id number] 21:07:00 Test Item Value Reference Range Interpretation Comments UA Ketones (test code Negative *NA*(03/04/21 = UA Ketones) 4:07 PM) [facility] [id number] 21:07:00 Test Item Value Reference Range Interpretation Comments UA Bili (test code = Negative *NA*(03/04/21 UA Bili) 4:07 PM) [facility] [id number] 21:07:00 Test Item Value Reference Range Interpretation Comments UA Blood (test code = Small *ABN*(03/04/21 UA Blood) 4:07 PM) [facility] [id number] 21:07:00 Test Item Value Reference Range Interpretation Comments UA Urobilinogen (test code = UA <=1.0 mg/dL 0.1-1.0 Urobilinogen) [facility] [id number] 21:07:00 Test Item Value Reference Range Interpretation Comments UA Nitrite (test code Negative (03/04/21 4:07 = UA Nitrite) PM) [facility] [id number] 21:07:00 Test Item Value Reference Range Interpretation Comments UA Leuk Est (test code Trace *ABN*(03/04/21 = UA Leuk Est) 4:07 PM) [facility] [id number] 21:07:00 Test Item Value Reference Range Interpretation Comments UA Sq Epi (test code = UA Sq Epi) Few /LPF [facility] [id number] 21:07:00 Test Item Value Reference Range Interpretation Comments UA WBC (test code = 3 See_Comment [Automa kody message] The UA WBC) system which ge nerated this result transmit kody reference range : <=5. The reference range was not used to interpr et this result as michell l/abnormal. [facility] [id number] 21:07:00 Test Item Value Reference Range Interpretation Comments UA RBC (test code = 2 See_Comment [Automa kody message] The UA RBC) system which ge nerated this result transmit kody reference range : <=2. The reference range was not used to interpr et this result as michell l/abnormal. [facility] AND [id number] 21:07:00 Test Item Value Reference Range Interpretation Comments UA Mucus (test code = UA Mucus) Few /LPF [facility] [id number] 20:55:00 Test Item Value Reference Range Interpretation Comments Troponin-I (test code no gt See_Comment [Auto mated message] The = Troponin-I) system which g enerated this result transmit kody reference range : <=0.40. The reference r belinda was not used to interpr et this result as michell l/abnormal. [facility] [id number] 20:55:00 Test Item Value Reference Range Interpretation Comments Glucose Lvl (test code = Glucose Lvl) 82 70-99 [facility] [id number] 20:55:00 Test Item Value Reference Range Interpretation Comments BUN (test code = BUN) 12 7-22 [facility] [id number] 20:55:00 Test Item Value Reference Range Interpretation Comments Creatinine Lvl (test code = Creatinine 1.17 0.50-1.40 Lvl) [facility] [id number] 20:55:00 Test Item Value Reference Range Interpretation Comments Sodium Lvl (test code = Sodium Lvl) 141 135-145 [facility] [id number] 20:55:00 Test Item Value Reference Range Interpretation Comments Potassium Lvl (test code = Potassium 4.1 3.5-5.1 Lvl) [facility] [id number] 20:55:00 Test Item Value Reference Range Interpretation Comments Chloride Lvl (test code = Chloride Lvl) 111 95-109 [facility] [id number] 20:55:00 Test Item Value Reference Range Interpretation Comments CO2 (test code = CO2) 20 24-32 [facility] [id number] 20:55:00 Test Item Value Reference Range Interpretation Comments Calcium Lvl (test code = Calcium Lvl) 9.5 8.5-10.5 [facility] [id number] 20:55:00 Test Item Value Reference Range Interpretation Comments Total Protein (test code = Total 7.6 6.4-8.4 Protein) [facility] [id number] 20:55:00 Test Item Value Reference Range Interpretation Comments Albumin Lvl (test code = Albumin Lvl) 3.4 3.5-5.0 [facility] [id number] 20:55:00 Test Item Value Reference Range Interpretation Comments ALT (test code = ALT) 19 See_Comment [Auto mated message] The system which ge nerated this result transmit kody reference range : <=65. The reference range was not used to interpr et this result as michell l/abnormal. [facility] [id number] 20:55:00 Test Item Value Reference Range Interpretation Comments AST (test code = AST) 17 See_Comment [Auto mated message] The system which ge nerated this result transmit kody reference range : <=37. The reference range was not used to interpr et this result as michell l/abnormal. [facility] [id number] 20:55:00 Test Item Value Reference Range Interpretation Comments Alk Phos (test code = Alk Phos) 147 39-136 [facility] [id number] 20:55:00 Test Item Value Reference Range Interpretation Comments Bili Total (test code = Bili Total) 0.2 0.2-1.3 [facility] [id number] 20:55:00 Test Item Value Reference Range Interpretation Comments AGAP (test code = AGAP) 14.1 10.0-20.0 [facility] [id number] 20:55:00 Test Item Value Reference Range Interpretation Comments B/C Ratio (test code = B/C Ratio) 10 1 6-25 [facility] [id number] 20:55:00 Test Item Value Reference Range Interpretation Comments Globulin (test code = Globulin) 4.2 2.7-4.2 [facility] [id number] 20:55:00 Test Item Value Reference Range Interpretation Comments A/G Ratio (test code = A/G Ratio) 0.8 1 0.7-1.6 [place] 559311-10-17 20:55:00 Test Item Value Reference Range Interpretation Comments eGFR (test code = eGFR) 56 [place] 559311-10-17 20:55:00 Test Item Value Reference Range Interpretation Comments Lipase Lvl (test code = Lipase Lvl) 42 73-393 [place] 559311-10-17 20:55:00 Test Item Value Reference Range Interpretation Comments Lactic Acid Lvl (test code = Lactic 1.0 0.5-2.2 Acid Lvl) [facility]HFLEM2553[facility] 20:55:00 Test Item Value Reference Range Interpretation Comments hCG Tot (test code = hCG Tot) no gt [facility]bergU[id number] 20:55:00 Test Item Value Reference Range Interpretation Comments WBC (test code = WBC) 8.7 3.7-10.4 [place] 765441-10-17 20:55:00 Test Item Value Reference Range Interpretation Comments RBC (test code = RBC) 4.78 4.20-5.40 [place] 765441-10-17 20:55:00 Test Item Value Reference Range Interpretation Comments Hgb (test code = Hgb) 12.3 12.0-16.0 [facility]bergHtnakidIWSSZGYQMR9877-30-30 20:55:00 Test Item Value Reference Range Interpretation Comments Hct (test code = Hct) 38.4 36.0-48.0 [place] 765441-10-17 20:55:00 Test Item Value Reference Range Interpretation Comments MCV (test code = MCV) 80.4 80.0-98.0 [place] [address]-10-17 20:55:00 Test Item Value Reference Range Interpretation Comments MCH (test code = MCH) 25.7 pg 27.0-31.0 [place] 765441-10-17 20:55:00 Test Item Value Reference Range Interpretation Comments MCHC (test code = MCHC) 32.0 32.0-36.0 [place] 765441-10-17 20:55:00 Test Item Value Reference Range Interpretation Comments RDW (test code = RDW) 16.5 11.5-14.5 [place] 765441-10-17 20:55:00 Test Item Value Reference Range Interpretation Comments Platelet (test code = Platelet) 304 133-450 [place] 765441-10-17 20:55:00 Test Item Value Reference Range Interpretation Comments MPV (test code = MPV) 8.9 7.4-10.4 [place] 765441-10-17 20:55:00 Test Item Value Reference Range Interpretation Comments Segs (test code = Segs) 63.6 45.0-75.0 [place] 765441-10-17 20:55:00 Test Item Value Reference Range Interpretation Comments Lymphocytes (test code = Lymphocytes) 24.6 20.0-40.0 [place] 765441-10-17 20:55:00 Test Item Value Reference Range Interpretation Comments Monocytes (test code = Monocytes) 7.1 2.0-12.0 [place] 765441-10-17 20:55:00 Test Item Value Reference Range Interpretation Comments Eosinophils (test code = 3.8 See_Comment [A utomated message] The Eosinophils) system which ge nerated this result tra nsmitted reference range : <=4.0. The reference r belinda was not used to int erpret this result as normal/abnormal . [id number] 20:55:00 Test Item Value Reference Range Interpretation Comments Basophils (test code = 0.9 See_Comment [Aut omated message] The Basophils) system which ge nerated this result tra nsmitted reference range : <=1.0. The reference r belinda was not used to int erpret this result as normal/abnormal . [id number] 20:55:00 Test Item Value Reference Range Interpretation Comments Neutrophils # (test code = Neutrophils 5.6 1.5-8.1 #) [place] 765441-10-17 20:55:00 Test Item Value Reference Range Interpretation Comments Lymphocytes # (test code = Lymphocytes 2.2 1.0-5.5 #) [place] [address]-10-17 20:55:00 Test Item Value Reference Range Interpretation Comments Monocytes # (test code 0.6 See_Comment [Aut omated message] The = Monocytes #) system which generated this result tra nsmitted reference range : <=0.8. The reference r belinda was not used to int erpret this result as normal/abnormal . [facility]bergWjbdwlvRUYUQTZSVE4029-15-53 20:55:00 Test Item Value Reference Range Interpretation Comments Eosinophils # (test code 0.3 See_Comment [A utomated message] The = Eosinophils #) system whic h generated this result tra nsmitted reference range : <=0.5. The reference r belinda was not used to int erpret this result as normal/abnormal . [facility] [id number] 20:55:00 Test Item Value Reference Range Interpretation Comments Basophils # (test code 0.1 See_Comment [Aut omated message] The = Basophils #) system which generated this result tra nsmitted reference range : <=0.2. The reference r belinda was not used to int erpret this result as normal/abnormal . [facility] [id number] 20:55:00 Test Item Value Reference Range Interpretation Comments Troponin-I (test code no gt See_Comment [Auto mated message] The = Troponin-I) system which g enerated this result transmit kody reference range : <=0.40. The reference r belinda was not used to interpr et this result as michell l/abnormal. [facility] [id number] 20:55:00 Test Item Value Reference Range Interpretation Comments Glucose Lvl (test code = Glucose Lvl) 82 70-99 [facility] [id number] 20:55:00 Test Item Value Reference Range Interpretation Comments BUN (test code = BUN) 12 7-22 [facility] [id number] 20:55:00 Test Item Value Reference Range Interpretation Comments Creatinine Lvl (test code = Creatinine 1.17 0.50-1.40 Lvl) [facility] [id number] 20:55:00 Test Item Value Reference Range Interpretation Comments Sodium Lvl (test code = Sodium Lvl) 141 135-145 [facility] [id number] 20:55:00 Test Item Value Reference Range Interpretation Comments Potassium Lvl (test code = Potassium 4.1 3.5-5.1 Lvl) [facility] [id number] 20:55:00 Test Item Value Reference Range Interpretation Comments Chloride Lvl (test code = Chloride Lvl) 111 95-109 [facility]ABIG[facility] [place] [id number] 20:55:00 Test Item Value Reference Range Interpretation Comments CO2 (test code = CO2) 20 24-32 [facility] [id number] 20:55:00 Test Item Value Reference Range Interpretation Comments Calcium Lvl (test code = Calcium Lvl) 9.5 8.5-10.5 [place] 559311-10-17 20:55:00 Test Item Value Reference Range Interpretation Comments Total Protein (test code = Total 7.6 6.4-8.4 Protein) [place] 559311-10-17 20:55:00 Test Item Value Reference Range Interpretation Comments Albumin Lvl (test code = Albumin Lvl) 3.4 3.5-5.0 [facility] [id number] 20:55:00 Test Item Value Reference Range Interpretation Comments ALT (test code = ALT) 19 See_Comment [Auto mated message] The system which ge nerated this result transmit kody reference range : <=65. The reference range was not used to interpr et this result as michell l/abnormal. [facility] [id number] 20:55:00 Test Item Value Reference Range Interpretation Comments AST (test code = AST) 17 See_Comment [Auto mated message] The system which ge nerated this result transmit kody reference range : <=37. The reference range was not used to interpr et this result as michell l/abnormal. [facility] [id number] 20:55:00 Test Item Value Reference Range Interpretation Comments Alk Phos (test code = Alk Phos) 147 39-136 [facility] [id number] 20:55:00 Test Item Value Reference Range Interpretation Comments Bili Total (test code = Bili Total) 0.2 0.2-1.3 [facility] [id number] 20:55:00 Test Item Value Reference Range Interpretation Comments AGAP (test code = AGAP) 14.1 10.0-20.0 [facility] [id number] 20:55:00 Test Item Value Reference Range Interpretation Comments B/C Ratio (test code = B/C Ratio) 10 1 6-25 [facility] [id number] 20:55:00 Test Item Value Reference Range Interpretation Comments Globulin (test code = Globulin) 4.2 2.7-4.2 [place] 559311-10-17 20:55:00 Test Item Value Reference Range Interpretation Comments A/G Ratio (test code = A/G Ratio) 0.8 1 0.7-1.6 [place] 559311-10-17 20:55:00 Test Item Value Reference Range Interpretation Comments eGFR (test code = eGFR) 56 [place] 559311-10-17 20:55:00 Test Item Value Reference Range Interpretation Comments Lipase Lvl (test code = Lipase Lvl) 42 73-393 [place] 559311-10-17 20:55:00 Test Item Value Reference Range Interpretation Comments Lactic Acid Lvl (test code = Lactic 1.0 0.5-2.2 Acid Lvl) [place] [id number] 20:55:00 Test Item Value Reference Range Interpretation Comments hCG Tot (test code = hCG Tot) no gt [facility] [id number] 20:55:00 Test Item Value Reference Range Interpretation Comments WBC (test code = WBC) 8.7 3.7-10.4 [place] 765441-10-17 20:55:00 Test Item Value Reference Range Interpretation Comments RBC (test code = RBC) 4.78 4.20-5.40 [place] 765441-10-17 20:55:00 Test Item Value Reference Range Interpretation Comments Hgb (test code = Hgb) 12.3 12.0-16.0 [place] 765441-10-17 20:55:00 Test Item Value Reference Range Interpretation Comments Hct (test code = Hct) 38.4 36.0-48.0 [place] [address]-10-17 20:55:00 Test Item Value Reference Range Interpretation Comments MCV (test code = MCV) 80.4 80.0-98.0 [place] 765441-10-17 20:55:00 Test Item Value Reference Range Interpretation Comments MCH (test code = MCH) 25.7 pg 27.0-31.0 [place] 765441-10-17 20:55:00 Test Item Value Reference Range Interpretation Comments MCHC (test code = MCHC) 32.0 32.0-36.0 [address]10-17 20:55:00 Test Item Value Reference Range Interpretation Comments RDW (test code = RDW) 16.5 11.5-14.5 [place] 765441-10-17 20:55:00 Test Item Value Reference Range Interpretation Comments Platelet (test code = Platelet) 304 133-450 [place] 765441-10-17 20:55:00 Test Item Value Reference Range Interpretation Comments MPV (test code = MPV) 8.9 7.4-10.4 [place] 765441-10-17 20:55:00 Test Item Value Reference Range Interpretation Comments Segs (test code = Segs) 63.6 45.0-75.0 [place] 765441-10-17 20:55:00 Test Item Value Reference Range Interpretation Comments Lymphocytes (test code = Lymphocytes) 24.6 20.0-40.0 [place] 765441-10-17 20:55:00 Test Item Value Reference Range Interpretation Comments Monocytes (test code = Monocytes) 7.1 2.0-12.0 [place] 765441-10-17 20:55:00 Test Item Value Reference Range Interpretation Comments Eosinophils (test code = 3.8 See_Comment [A utomated message] The Eosinophils) system which ge nerated this result tra nsmitted reference range : <=4.0. The reference r belinda was not used to int erpret this result as normal/abnormal . [place] 765441-10-17 20:55:00 Test Item Value Reference Range Interpretation Comments Basophils (test code = 0.9 See_Comment [Aut omated message] The Basophils) system which ge nerated this result tra nsmitted reference range : <=1.0. The reference r belinda was not used to int erpret this result as normal/abnormal . [place] 765441-10-17 20:55:00 Test Item Value Reference Range Interpretation Comments Neutrophils # (test code = Neutrophils 5.6 1.5-8.1 #) [place] 765441-10-17 20:55:00 Test Item Value Reference Range Interpretation Comments Lymphocytes # (test code = Lymphocytes 2.2 1.0-5.5 #) [place] 765441-10-17 20:55:00 Test Item Value Reference Range Interpretation Comments Monocytes # (test code 0.6 See_Comment [Aut omated message] The = Monocytes #) system which generated this result tra nsmitted reference range : <=0.8. The reference r belinda was not used to int erpret this result as normal/abnormal . [facility]XP[facility]D1440[facility] 20:55:00 Test Item Value Reference Range Interpretation Comments Eosinophils # (test code 0.3 See_Comment [A utomated message] The = Eosinophils #) system whic h generated this result tra nsmitted reference range : <=0.5. The reference r belinda was not used to int erpret this result as normal/abnormal . [facility]bergWvoethfBFFHVGTRCM8617-35-00 20:55:00 Test Item Value Reference Range Interpretation Comments Basophils # (test code 0.1 See_Comment [Aut omated message] The = Basophils #) system which generated this result tra nsmitted reference range : <=0.2. The reference r belinda was not used to int erpret this result as normal/abnormal . [facility] KlebergFytgqykCYXWGQERNC2612-94-64 14:27:00 Test Item Value Reference Range Interpretation Comments COLOR (test code = COLU) YELLOW YELLOW CLARITY (test code = CLA) CLEAR CLEAR GLUCOSE UR (test code = UA GLUCOSE) NEGATIVE NEGATIVE BILI UR (test code = BILE) NEGATIVE NEGATIVE KETONES UR (test code = JAIR) NEGATIVE NEGATIVE SP GRAVITY (test code = SPGR) 1.004 1.005-1.030 L PH UR (test code = PH) 7.0 4.5-8.0 PROTEIN UR (test code = PU) NEGATIVE NEGATIVE UROBIL UR (test code = UROQ) 0.2 EU/dL 0.2-1.0 NITRITE UR (test code = NITRITE) NEGATIVE NEGATIVE BLOOD UR (test code = UA BLOOD) NEGATIVE NEGATIVE LEUK ES UR (test code = LEUK) NEGATIVE NEGATIVE URINE [id number] 14:26:00 Test Item Value Reference Range Interpretation Comments PREG UR (test code = PGU) NEGATIVE NEGATIVE Lipase, [id number] 22:09:24 Test Item Value Reference Range Interpretation Comments LIPASE (test code = 1165276657) 32 U/L 0-220 Lab Interpretation (test code = Normal 49830-0) [facility] [id number] 22:09:23 Test Item Value Reference Range Interpretation Comments NA (test code = 135 mmol/L 135-145 1670962139) K (test code = 5.0 mmol/L 3.5-5.0 Slight 6965982476) hemolysis CL (test code = 107 mmol/L 98-108 2363987770) CO2 TOTAL (test code 19 mmol/L 23-31 L = 8858074317) AGAP (test code = 2-16 4337264642) BUN (test code = 11 mg/dL 7-23 Slight 0104450567) hemolysis GLUCOSE (test code = 93 mg/dL 70-110 4735316241) CREATININE (test code 0.89 mg/dL 0.50-1.04 = 3358060895) TOTAL BILI (test code 0.5 mg/dL 0.1-1.1 = 1306693701) CALCIUM (test code = 9.5 mg/dL 8.6-10.6 3576739808) T PROTEIN (test code 7.0 g/dL 6.3-8.2 = 8540111589) ALBUMIN (test code = 3.8 g/dL 3.5-5.0 8422488273) ALK PHOS (test code = 144 U/L 34-122 H Slight 4000299156) hemolysis ALTv (test code = 15 U/L 5-35 1742-6) AST(SGOT) (test code 28 U/L 13-40 Slight = 0775696479) hemolysis eGFR (test code = mL/min/1.73m2 9162941515) MIKY (test code = MIKY) Association of Glomerular Filtration Rate (GFR) and Staging of Kidney Disease* + -----+ --------+ +| GFR (mL/min/1.73 m2) ?| With Kidney Damage ?| ?Without Kidney Damage+ +------- +---- --+| ?>90 ?| ?Stage one ?| ? Normal ?+ ------+ ---------+--------- +| ?60-89 ?| ?Stage two ?| ? Decreased GFR ? + -----+ --------+ +| ?30-59 ?| ?Stage three ?| ? Stage three ? + -----+ --------+ +| ?15-29 ?| ?Stage four ? | ? Stage four ?+ ------+ ---------+--------- +| ?<15 (or dialysis) ? ?| ?Stage five ? | ? Stage five ?+ ------+ ---------+--------- + *Each stage assumes the associated GFR level has been in effect for at least three months. ?Stages 1 to 5, with or without kidney disease, indicate chronic kidney disease. Notes: Determination of stages one and two (with eGFR >59mL/min/1.73 m2) requires estimation of kidney damage for at least three months as defined by structural or functional abnormalities of the kidney, manifested by either:Pathological abnormalities or Markers of kidney damage (including abnormalities in the composition of the blood or urine or abnormalities in imaging tests). Lab Interpretation Abnormal (test code = 27646-4) [facility] with Vasdgtfcwvjv1377-51-97 22:00:22 Test Item Value Reference Range Interpretation Comments WBC (test code = See_Comment [Automated 7031-2) message] The sy stem which generated this result transmitted reference range : 4.30 - 11.10 10*3/?L. The reference range was not used to interpret this result as normal/abnormal . RBC (test code = See_Comment [Automated 929-8) message] The sy stem which generated this result transmitted reference range : 3.93 - 5.25 10*6/?L. The reference range was not used to interpret this result as normal/abnormal . HGB (test code = 11.2 g/dL 11.6-15.0 L 718-7) HCT (test code = 36.6 % 35.7-45.2 4544-3) MCV (test code = 81.5 fL 80.6-95.5 787-2) MCH (test code = 24.9 pg 25.9-32.8 L 785-6) MCHC (test code = 30.6 g/dL 31.6-35.1 L 786-4) RDW-SD (test code = 45.7 fL 39.0-49.9 50466-3) RDW-CV (test code = 15.3 % 12.0-15.5 788-0) PLT (test code = See_Comment [Automated 637-3) message] The sy stem which generated this result transmitted reference range : 166 - 358 10*3/ ?L. The reference r belinda was not used to interpret this result as normal/abnormal . MPV (test code = 10.5 fL 9.5-12.9 30979-1) NRBC/100 WBC (test See_Comment [Automat ed code = 9316292243) message] The system which generated this result transmitted reference range : 0.0 - 10.0 /100 WBCs. The refer ence range was not u sed to interpret th is result as normal/abnormal . NRBC x10^3 (test code <0.01 See_Comment [Auto mated = 8637910103) message] The s ystem which generated this result transmitted reference range : 10*3/?L. The reference range was not used to interpret this result as normal/abnormal . GRAN MAT (NEUT) % 69.3 % (test code = 770-8) IMM GRAN % (test code 0.30 % = 0489111393) LYMPH % (test code = 19.8 % 736-9) MONO % (test code = 6.6 % 5905-5) EOS % (test code = 3.6 % 713-8) BASO % (test code = 0.4 % 706-2) GRAN MAT x10^3(ANC) 6.78 10*3/uL 1.88-7.09 (test code = 4031247933) IMM GRAN x10^3 (test 0.03 10*3/uL 0.00-0.06 code = 2870024949) LYMPH x10^3 (test code 1.94 10*3/uL 1.32-3.29 = 731-0) MONO x10^3 (test code 0.65 10*3/uL 0.33-0.92 = 742-7) EOS x10^3 (test code = 0.35 10*3/uL 0.03-0.39 711-2) BASO x10^3 (test code 0.04 10*3/uL 0.01-0.07 = 704-7) Lab Interpretation Abnormal (test code = 71032-6) [facility] A[facility] PELVIS W/[id number] 23:41:00 [facility] [place] : 1975 Sex: F FAX: hTa Mcginnis DO [phone] [place]: St: [facility] FAX: Mac Randall MD [phone] Name: LIANA ASHBY [facility] : 1975 Age/S: 46/F [address] [facility] Unit: [id number] Loc: PANKAJ [place], [place]: [place] [address] Acct: [id number] Dis Date: Status: ADM IN PHONE #: [phone] Exam Date: 02/26/2021 2316 FAX #: [phone] Reason: Mod abd pain to B/L lower quad EXAMS:CPT CODE: [id number] CT ABD PELVIS W/CONT 90671 EXAM: - CT ABD PELVIS W/CONT LOCATION: C3 INDICATION: 46 years -old Female with Mod abd pain to B/L lower quad TECHNIQUE: Contrast - IV contrast was given. No oral contrast was given Portal venous phase - abdomen and pelvis No delayed phase images were obtained. Reconstructions - coronal and sagittal planes This exam was performed according to our departmental dose-optimization program, which includes automated exposure control, adjustment of the mA and/or kV according to patient size and/or use of iterative reconstruction technique COMPARISON: 02/01/2021, 01/28/2021 FINDINGS: Statements: None. Thoracic: Unchanged 4 mm subpleural left lower lobe nodule. Hepatobiliary: The liver is normal without focal lesion. Status post cholecystectomy. No biliary dilation. Pancreas: Normal. Spleen: Normal. Adrenals: Normal. Genitourinary: The kidneys are normal. No evidence of hydronephrosis. Evaluation of the bladder is limited, but no obvious bladder abnormality is present. Gastrointestinal: No bowel obstruction or perienteric inflammation. The appendix is normal. Evidence of prior bowel surgery. Vascular: Atherosclerotic calcifications are seen within the aorta and branch vessels. PAGE 1 Signed Report (CONTINUED) FAX: Tha Mcginnis DO [phone] [place]: St: [facility] FAX: Mac Randall MD [phone] Name: [facility] [facility] : 1975 Age/S: 46/F [address] [facility] Unit: [id number] [place]: [place], [place] Phys: Th[place] [address]Obiv: [id number] Dis Date: Status: ADM IN PHONE #: [phone] Exam Date: 02/26/2021 2316 FAX #:[phone] Reason: Mod abd pain to B/L lower quad EXAMS: CPT CODE: [id number] CT ABD PELVIS W/CONT 81013 <Continued> Lymphatics: No enlarged lymph nodes by CT size criteria. Bones/Soft Tissues: No acute osseous findings. No ventral hernias. Peritoneum/Other: No extraluminal air. No extraluminalfluid. IMPRESSION: No acute findings. Electronically Signed by Jeovanny Reyna on 2020 at 2341 Reported and signed by: Marcos Reyna M.D. CC: Tha Mcginnis DO; Mac Hardwick M.D. Technologist: Hien De Leon Trnscrd Dt/Tm: 02/26/2021 (4511) [email or web address] Orig Print D/T: S:02/26/2021 (0015 PAGE 2 Signed ReportBASIC METABOLIC [id number] 23:30:00 Test Item Value Reference Range Interpretation Comments SODIUM (test code = NA) 136 mmol/l 134.0-147.0 N POTASSIUM (test code = K) 3.9 mmol/L 3.6-5.2 N CHLORIDE (test code = CL) 101 mmol/l 98.0-107.0 N CARBON DIOXIDE (test code = CO2) 24.0 mmol/l 21.0-33.0 N ANION GAP (test code = GAP) 14.9 0-20 N GLUCOSE (test code = GLU) 105 mg/dl 70.0-110.0 N BLOOD UREA NITROGEN (test code = 11 mg/dl 7.0-18.0 N BUN) CREATININE (test code = CREAT) 1.20 mg/dL 0.60-1.30 N GFR NON BLACK (test code = 51 mL/min 95-105 L GFRNONBLACK) GFR BLACK (test code = GFRBLACK) 62 mL/min 115-127 L CALCIUM (test code = CA) 9.6 mg/dl 8.0-10.5 N HEPATIC FUNCTION PANEL [id number] 23:30:00 Test Item Value Reference Range Interpretation Comments TOTAL PROTEIN (test code = PROT) 7.2 GM/DL 6.0-8.1 N ALBUMIN (test code = ALB) 3.1 gm/dL 3.2-4.7 L BILIRUBIN TOTAL (test code = 0.2 mg/dl 0.0-1.0 N BILT) BILIRUBIN DIRECT (test code = <0.1 mg/dl 0.0-0.3 N BILD) SGOT/AST (test code = AST) 15 Units/L 15-37 N SGPT/ALT (test code = ALT) 20 Units/L 12.0-78.0 N ALKALINE PHOSPHATASE TOTAL (test 143 Units/L 50.0-136.0 H code = ALKP) [id number] 23:30:00 Test Item Value Reference Range Interpretation Comments LIPASE (test code = LIP) 94 Units/L 65.0-230.0 N CBC W/AUTO [id number] 23:08:00 Test Item Value Reference Range Interpretation Comments WHITE BLOOD CELL (test code = 10.1 K/mm3 4.5-11.0 N WBC) RED BLOOD CELL (test code = 4.49 M/mm3 3.80-5.20 N RBC) HEMOGLOBIN (test code = HGB) 11.3 gm/dL 12.0-16.0 L HEMATOCRIT (test code = HCT) 37.7 % 36.0-48.0 N MEAN CELL VOLUME (test code = 84.0 UM3 82.0-99.0 MCV) MEAN CELL HGB (test code = MCH) 25.2 UUG 25.5-32.5 L MEAN CELL HGB CONCETRATION 30.0 gm/dL 29.0-35.5 N (test code = MCHC) RED CELL DISTRIBUTION WIDTH 15.7 % 11.5-15.0 H (test code = RDW) RED CELL DISTRIBUTION WIDTH SD 48.0 fL 34.8-50.2 N (test code = RDW-SD) PLATELET COUNT (test code = 284 K/mm3 150-400 N PLT) MEAN PLATELET VOLUME (test code 10.9 fl 7.4-10.4 H = MPV) NEUTROPHIL % (test code = NT%) 66.2 % 49.0-76.0 N IMMATURE GRANULOCYTE % (test 0.4 % 0.0-0.4 N code = IG%) LYMPHOCYTE % (test code = LY%) 21.4 % 23.0-38.0 L MONOCYTE % (test code = MO%) 7.8 % 1.0-10.0 N EOSINOPHIL % (test code = EO%) 3.8 % 1.0-5.0 N BASOPHIL % (test code = BA%) 0.4 % 0.0-1.0 N NUCLEATED RBC % (test code = 0.0 % 0.0-0.1 N NRBC%) NEUTROPHIL # (test code = NT#) 6.7 K/mm3 2.4-6.3 H IMMATURE GRANULOCYTE # (test 0.04 x10 3/uL 0.00-0.07 N code = IG#) LYMPHOCYTE # (test code = LY#) 2.2 K/mm3 1.2-4.0 N MONOCYTE # (test code = MO#) 0.8 K/mm3 0.0-0.6 H EOSINOPHIL # (test code = EO#) 0.4 K/MM3 0.0-0.7 N BASOPHIL # (test code = BA#) 0.0 K/mm3 0.0-0.2 N NUCLEATED RBC # (test code = 0.00 X10 3uL 0.00-0.01 N NRBC#) URINALYSIS [id number] 22:24:00 Test Item Value Reference Range Interpretation Comments UA COLOR (test code = YELLOW COLU) UA APPEARANCE (test code CLEAR = APPU) UA GLUCOSE DIPSTICK (test NORMAL mg/dl NORMAL code = DGLUU) UA BILIRUBIN DIPSTICK NEGATIVE mg/dL NEGATIVE (test code = BILU) UA KETONE DIPSTICK (test NEGATIVE mg/dl NEGATIVE code = KETU) UA SPECIFIC GRAVITY (test 1.005 1.000-1.030 code = SGU) UA BLOOD DIPSTICK (test NEGATIVE Jorge Alberto/micL NEGATIVE code = WINSTON) UA PH DIPSTICK (test code 7.0 5.0-9.0 = FOSTER) UA PROTEIN DIPSTICK (test NEGATIVE mg/dl NEGATIVE code = PROU) UA UROBILINIOGEN DIPSTICK NORMAL mg/dl NORMAL (test code = URO) UA NITRITE DIPSTICK (test NEGATIVE NEGATIVE code = SU) UA LEUKOCYTE ESTERASE 25 Debi/micL Debi/micL NEGATIVE A DIPSTICK (test code = LEUU) UA WBC (test code = WBCU) 10-20 WBC/HPF NONE A UA RBC (test code = RBCU) 3-5 RBC/HPF 0-3 UA EPITHELIAL CELLS (test 10-15 EPI/HPF 0-3 A code = EPIU) UA BACTERIA (test code = MANY NONE A BACU) Specimen comments: Clean CatchUR HCG [id number] 22:24:00 Test Item Value Reference Range Interpretation Comments UR HCG QUAL (test code = HCGQLU) NEGATIVE NEGATIVE Specimen comments: Clean CatchTROPONIN [id number] 21:26:00 Test Item Value Reference Range Interpretation Comments TROPONIN I (test code = A84) <0.015 ng/mL 0.000-0.045 DRUGS OF [id number] 21:17:00 Test Item Value Reference Range Interpretation Comments DRUG SCRN (test code = URINE DRUG HDOA) SCREEN This is an unconfirmed screening result and should not be used for non-medical purposes CANNABINOD (test code Negative NEGATIVE = 88C) AMPHETAMINE (test code Negative NEGATIVE = 84A) BENZODIAZP (test code Negative NEGATIVE = 86A) BARBITURAT (test code POSITIVE NEGATIVE A = 85A) OPIATES (test code = POSITIVE NEGATIVE A 92B) COCAINE (test code = Negative NEGATIVE 87A) PHENCYCLID (test code Negative NEGATIVE = 66A) METHADONE (test code = Negative NEGATIVE 64A) DOAH (test code = DOAH.) URINE DRUGSCREEN Cut-off values are as follows: Cannabinoids 50 ng/mL Cocaine 300 ng/mL Amphetamines 1000 ng/mL Phencyclidine 25 ng/mL Benzodiazepines 200 ng.mL Methadone 300 ng/mL Barbiturates 200 ng/mL Opiates 300 ng/mL CT ABDOMEN AND PELVIS W/O [id number] 21:01:40 [facility] ASHBYDOB: 1975 Sex: FSite ID: [id number] HISTORY: Lower abdominal and back painTECHNIQUE: Axial images of the abdomen and pelvis were obtained from diaphragm to the pubic symphysis without oral or intravenous contrast. CT dose lowering technique utilized, with adjustment of MA/kV according to patient size and automated exposure control.COMPARISON: Noncontrast CT abdomen and pelvis January 22ISCUSSION: Tiny scattered subcentimeter lung base nodules are not changed over a three-week interval. The heart size is normal.The liver is normal in size and contour, without focal abnormality.The gallbladder is absent. No biliary ductal dilatation.The spleen, pancreas and adrenal glands are unremarkable. Both kidneys are normal in size. Nohydronephrosis, nephrolithiasis or perinephric edema.Vascular structures are normal in caliber and appearance.The small and large bowel are unremarkable. The appendix appears normal.No abdominal, pelvic or retroperitoneal adenopathy or free fluid.The uterus, adnexa and urinary bladder appear unremarkable.No suspicious bony lesions.IMPRESSION: Stable negative CT abdomen and pelvisElectronically signedby: Luiz Browning MD 02/15/2021 9:01 PM CDT [id number] URINE [id number] 20:29:00 Test Item Value Reference Range Interpretation Comments PREG UR (test code = PGU) NEGATIVE NEGATIVE COMPREHENSIVE METABOLIC [id number] 20:28:00 Test Item Value Reference Range Interpretation Comments GLUCOSE (test code 100 mg/dL 75-100 = 06D) SODIUM (test code 143 mmol/L 136-145 = 01A) POTASSIUM (test 4.2 mmol/L 3.6-5.1 code = 01B) CHLORIDE (test 109 mmol/L 98-107 H code = 04A) CO2 (test code = 26 mmol/L 22-32 02A) ANION GAP (test 12.2 mmol/L code = ANG) BUN (test code = 10 mg/dL 7-18 05D) CREATININE (test 1.2 mg/dL 0.4-1.1 H code = 03E) GFR (test code = 57 See_Comment L [Automated GFR) mL/min/1.73m\\S\\2 message] Th e system which generated this result transmit kody reference range : >=90. The reference range was not used to interpret this result as normal/abnormal . GFR 66 See_Comment L [Automated DOMINICAN (test mL/min/1.73m\\S\\2 message] The code = GFRAA) system which generated this result transmit kody reference range : >=90. The reference range was not used to interpret this result as normal/abnormal . EGFR (test code = eGFR BY EGFR) CKD-EPI CALCULATION IS NOT RECOMMENDED FOR PATIENTS UNDER 18 YEARS OF AGE. BUN/CREA (test 9 12-20 L code = BCR) CALCIUM (test code 9.5 mg/dL 8.3-9.5 = 09D) BILI TOTAL (test 0.2 mg/dL 0.2-1.0 code = 11A) PROTEIN (test code 7.3 g/dL 6.4-8.2 = 07D) ALBUMIN (test code 3.4 g/dL 3.5-4.8 L = 08D) GLOBULIN (test 3.9 g/dL 1.5-3.8 H code = GLB) ALB/GLOB (test 0.9 1.0-2.6 L code = AGRR) ALK PHOS (test 135 IU/L 42-121 H code = 35A) AST (test code = 14 IU/L See_Comment [Automated 30A) message] The system which generated this result transmit kody reference range : <=42. The reference range was not used to interpret this result as normal/abnormal . ALT (test code = 18 IU/L See_Comment [Automated 31A) message] The system which generated this result transmit kody reference range : <=78. The reference range was not used to interpret this result as normal/abnormal . URINALYSIS WITH [id number] 20:28:00 Test Item Value Reference Range Interpretation Comments COLOR (test code = COLU) YELLOW YELLOW CLARITY (test code = CLA) CLEAR CLEAR GLUCOSE UR (test code = UA GLUCOSE) NEGATIVE NEGATIVE BILI UR (test code = BILE) NEGATIVE NEGATIVE KETONES UR (test code = JAIR) NEGATIVE NEGATIVE SP GRAVITY (test code = SPGR) 1.003 1.005-1.030 L PH UR (test code = PH) 7.0 4.5-8.0 PROTEIN UR (test code = PU) NEGATIVE NEGATIVE UROBIL UR (test code = UROQ) 0.2 EU/dL 0.2-1.0 NITRITE UR (test code = NITRITE) NEGATIVE NEGATIVE BLOOD UR (test code = UA BLOOD) NEGATIVE NEGATIVE LEUK ES UR (test code = LEUK) 1+ NEGATIVE A WBC UR (test code = UWBC) 4 /HPF 0-5 RBC UR (test code = URBC) 1 /HPF 0-2 EPITH UR (test code = UEPC) FEW /LPF FEW BACTERIA UR (test code = UBACT) FEW /HPF NONE A CAST UR (test code = CAST) /LPF NONE CRYSTAL UR (test code = CRYU) / LPF NONE MUCUS UR (test code = MUC) / HPF NONE AMORPH UR (test code = MIGUEL) / HPF NONE TRICH UR (test code = UTRICH) /HPF NONE YEAST UR (test code = UY) /HPF NONE SPERM UR (test code = USPERM) /HPF NONE LIPASE [id number] 20:23:00 Test Item Value Reference Range Interpretation Comments LIPASE (test code = 60A) 54 IU/L 73-393 L CBC (INCLUDES AUTOMATED DIFFERENTIAL)2021-02-15 20:17:00 Test Item Value Reference Range Interpretation Comments WBC (test code = WBC) 8.6 10\\S\\3/uL 4.5-11.0 RBC (test code = RBC) 4.94 10\\S\\6/uL 4.20-5.60 HGB (test code = HBG) 12.6 g/dL 12.0-15.5 HCT (test code = HCT) 41.3 % 35.0-44.0 MCV (test code = MCV) 83.6 fL 81.0-99.0 MCH (test code = MCH) 25.5 pg 27.0-31.0 L MCHC (test code = MCHC) 30.5 g/dL 32.0-36.0 L RDW (test code = RDW) 16.5 % 11.5-14.5 H PLT (test code = PLT) 299 10\\S\\3/uL 130-400 MPV (test code = MPV) 10.9 fL 9.4-12.4 NEUTROP # (test code = NE#) 5.2 10\\S\\3/uL 1.6-8.0 LYMPH # (test code = LY#) 2.3 10\\S\\3/uL 1.1-3.5 MONOCYTE # (test code = MO#) 0.6 10\\S\\3/uL 0.0-1.1 EOSINOPH # (test code = EO#) 0.4 10\\S\\3/uL 0.0-0.7 BASOPHIL # (test code = BA#) 0.0 10\\S\\3/uL 0.0-0.3 IG # (test code = IG#) 0.02 10\\S\\3/uL 0.00-0.06 NRBC # (test code = NRBC#) 0.00 10\\S\\3/uL 0.00-0.01 NEUTROPH % (test code = NE%) 60.9 % 35.0-73.0 LYMPH % (test code = LY%) 27.2 % 20.0-55.0 MONO % (test code = MO%) 7.2 % 2.5-10.0 EOSINOPH % (test code = EO%) 4.1 % 0.0-5.0 BASOPHIL % (test code = BA%) 0.4 % 0.0-2.0 IG % (test code = IG%) 0.2 % 0.0-0.8 NRBC% (test code = NRBC%) 0.0 % 0.0-0.2 MANDIFF (test code = MDIFF) NO COMPREHENSIVE METABOLIC [id number] 22:45:00 Test Item Value Reference Range Interpretation Comments SODIUM (test code = 134 mmol/l 134.0-147.0 N NA) POTASSIUM (test code = 5.8 mmol/L 3.6-5.2 H IS SA MPLE HEMOLYSED? K) YES2+ HEMOLYSIS ; INTERPRET WITH CAUTION. CHLORIDE (test code = 104 mmol/l 98.0-107.0 N CL) CARBON DIOXIDE (test 23.2 mmol/l 21.0-33.0 N code = CO2) ANION GAP (test code = 12.6 0-20 N GAP) GLUCOSE (test code = 101 mg/dl 70.0-110.0 N GLU) BLOOD UREA NITROGEN 9 mg/dl 7.0-18.0 N (test code = BUN) CREATININE (test code 1.10 mg/dL 0.60-1.30 N = CREAT) GFR NON BLACK (test 57 mL/min 95-105 L code = GFRNONBLACK) GFR BLACK (test code = 69 mL/min 115-127 L GFRBLACK) TOTAL PROTEIN (test 7.5 GM/DL 6.0-8.1 N code = PROT) ALBUMIN (test code = 3.1 gm/dL 3.2-4.7 L ALB) CALCIUM (test code = 9.2 mg/dl 8.0-10.5 N CA) BILIRUBIN TOTAL (test 0.3 mg/dl 0.0-1.0 N code = BILT) SGOT/AST (test code = 42 Units/L 15-37 H AST) SGPT/ALT (test code = 23 Units/L 12.0-78.0 N ALT) ALKALINE PHOSPHATASE 143 Units/L 50.0-136.0 H TOTAL (test code = ALKP) [id number] 22:45:00 Test Item Value Reference Range Interpretation Comments LIPASE (test code = LIP) 41 Units/L 65.0-230.0 L URINALYSIS [id number] 22:37:00 Test Item Value Reference Range Interpretation Comments UA COLOR (test code = COLU) YELLOW UA APPEARANCE (test code = CLEAR APPU) UA GLUCOSE DIPSTICK (test NORMAL mg/dl NORMAL code = DGLUU) UA BILIRUBIN DIPSTICK (test NEGATIVE mg/dL NEGATIVE code = BILU) UA KETONE DIPSTICK (test NEGATIVE mg/dl NEGATIVE code = KETU) UA SPECIFIC GRAVITY (test 1.015 1.000-1.030 code = SGU) UA BLOOD DIPSTICK (test NEGATIVE Jorge Alberto/micL NEGATIVE code = WINSTON) UA PH DIPSTICK (test code = 6.0 5.0-9.0 FOSTER) UA PROTEIN DIPSTICK (test NEGATIVE mg/dl NEGATIVE code = PROU) UA UROBILINIOGEN DIPSTICK NORMAL mg/dl NORMAL (test code = URO) UA NITRITE DIPSTICK (test NEGATIVE NEGATIVE code = SU) UA LEUKOCYTE ESTERASE NEGATIVE Debi/micL NEGATIVE DIPSTICK (test code = LEUU) UA WBC (test code = WBCU) 0-3 WBC/HPF NONE UA RBC (test code = RBCU) 0-2 RBC/HPF 0-3 UA EPITHELIAL CELLS (test 2-5 EPI/HPF 0-3 A code = EPIU) UA BACTERIA (test code = FEW NONE BACU) CBC W/AUTO [id number] 22:35:00 Test Item Value Reference Range Interpretation Comments WHITE BLOOD CELL (test code = 8.2 K/mm3 4.5-11.0 N WBC) RED BLOOD CELL (test code = 4.31 M/mm3 3.80-5.20 N RBC) HEMOGLOBIN (test code = HGB) 11.1 gm/dL 12.0-16.0 L HEMATOCRIT (test code = HCT) 38.3 % 36.0-48.0 N MEAN CELL VOLUME (test code = 88.9 UM3 82.0-99.0 N MCV) MEAN CELL HGB (test code = MCH) 25.8 UUG 25.5-32.5 N MEAN CELL HGB CONCETRATION 29.0 gm/dL 29.0-35.5 N (test code = MCHC) RED CELL DISTRIBUTION WIDTH 16.1 % 11.5-15.0 H (test code = RDW) RED CELL DISTRIBUTION WIDTH SD 52.6 fL 34.8-50.2 H (test code = RDW-SD) PLATELET COUNT (test code = 285 K/mm3 150-400 N PLT) MEAN PLATELET VOLUME (test code 11.3 fl 7.4-10.4 H = MPV) NEUTROPHIL % (test code = NT%) 55.6 % 49.0-76.0 N IMMATURE GRANULOCYTE % (test 0.2 % 0.0-0.4 N code = IG%) LYMPHOCYTE % (test code = LY%) 29.7 % 23.0-38.0 N MONOCYTE % (test code = MO%) 10.1 % 1.0-10.0 H EOSINOPHIL % (test code = EO%) 4.0 % 1.0-5.0 N BASOPHIL % (test code = BA%) 0.4 % 0.0-1.0 N NUCLEATED RBC % (test code = 0.0 % 0.0-0.1 N NRBC%) NEUTROPHIL # (test code = NT#) 4.6 K/mm3 2.4-6.3 N IMMATURE GRANULOCYTE # (test 0.02 x10 3/uL 0.00-0.07 N code = IG#) LYMPHOCYTE # (test code = LY#) 2.5 K/mm3 1.2-4.0 N MONOCYTE # (test code = MO#) 0.8 K/mm3 0.0-0.6 H EOSINOPHIL # (test code = EO#) 0.3 K/MM3 0.0-0.7 N BASOPHIL # (test code = BA#) 0.0 K/mm3 0.0-0.2 N NUCLEATED RBC # (test code = 0.00 X10 3uL 0.00-0.01 N NRBC#) - CT ABD PELVIS [id number] 12:35:00 [facility] [place] [place] [facility] : 1975 Sex: F FAX: Mac Randall MD [phone] [place]: St: [facility] FAX: Adenike Stone MD [phone] --------- Name: FABYLIANALACY MACEDO [facility] : 1975 Age/S: 46/F [address] [facility] Unit: [id number] Loc: [place], [place]: [place] [address] Acct: [id number] Dis Date: Status: REG ER PHONE #: [phone] Exam Date: 02/01/2021 1216 FAX #: [phone] Reason: abdo pain EXAMS: CPT CODE: [id number] CT ABD PELVIS W/CONT [id number] LOCATION: T18 EXAM: CT ABDOMEN AND PELVIS WITH CONTRAST INDICATION: Abdominal pain COMPARISON: CT abdomen and pelvis January 28, 2021 TECHNIQUE: Multiple CT images of the abdomen and pelvis were obtained with reconstructions in the coronal and sagittal planes. 100 ml of Isovue 300 was given intravenously. Up-to-date CT equipment and radiation dose reduction techniques were utilized. Automatic exposure control was utilized. FINDINGS: Lung bases are clear. Liver is normal inappearance. Calcified granuloma the spleen present. Spleen is otherwise unremarkable. Adrenal glands and pancreas normal. Gallbladder removed. No biliary distention. Portal vasculature is patent. Kidneys enhance symmetrically. No focal abnormality or hydronephrosis. There is no hydroureter. Urinary bladder is normal in appearance. Uterus and adnexal structures are age-appropriate in appearance. Appendix is normal. There is no evidence for acute appendicitis. No free air or free fluid is present. No bowel obstruction is seen. Postop changes of the stomach and distal small bowel. Abdominal aorta is normal in caliber. IVC is normal. Bones are intact. Peripheral soft tissues are unremarkable. IMPRESSION: No acute abnormality. Normal appendix. Postop changes of stomach and small bowel. No bowel obstruction. at 1235 Reported and signed by: Paulo Duarte M.D. PAGE 1 Signed Report (CONTINUED) FAX: Mac Randall MD [phone] [place]: St: [facility] FAX: Adenike Stone MD [phone] Name: LIANA ASHBY [facility] : 1975 Age/S: 46/F [address] [facility] Unit: [id number] Loc: [place], [place]: [place] [address] Acct: [id number] Dis Date: Status: REG ER PHONE #: [phone] Exam Date: 02/01/2021 1216 FAX #: [phone] Reason: abdo pain EXAMS: CPT CODE: [id number] CT ABD PELVIS W/CONT [id number] <Continued> CC: Mac Hardwick M.D.; Adenike Stone MD Technologist: HILDA PELAYO; HIEN WEBBER Trnscrd Dt/Tm: 02/01/2021 (3835) [id number] Orig Print D/T: S: 02/01/2021 (2478 PAGE 2 Signed ReportBASIC METABOLIC [id number] 12:05:00 Test Item Value Reference Range Interpretation Comments SODIUM (test code = NA) 139 mmol/l 134.0-147.0 N POTASSIUM (test code = K) 4.2 mmol/L 3.6-5.2 N CHLORIDE (test code = CL) 104 mmol/l 98.0-107.0 N CARBON DIOXIDE (test code = CO2) 27.0 mmol/l 21.0-33.0 N ANION GAP (test code = GAP) 12.2 0-20 N GLUCOSE (test code = GLU) 100 mg/dl 70.0-110.0 N BLOOD UREA NITROGEN (test code = 8 mg/dl 7.0-18.0 N BUN) CREATININE (test code = CREAT) 1.03 mg/dL 0.60-1.30 N GFR NON BLACK (test code = 61 mL/min 95-105 L GFRNONBLACK) GFR BLACK (test code = GFRBLACK) 74 mL/min 115-127 L CALCIUM (test code = CA) 8.7 mg/dl 8.0-10.5 N HEPATIC FUNCTION PANEL [id number] 12:05:00 Test Item Value Reference Range Interpretation Comments TOTAL PROTEIN (test code = PROT) 6.9 gm/dL 6.4-8.2 N ALBUMIN (test code = ALB) 3.0 gm/dl 3.2-4.7 L BILIRUBIN TOTAL (test code = 0.2 mg/dl 0.0-1.0 N BILT) BILIRUBIN DIRECT (test code = 0.1 mg/dl 0.0-0.3 N BILD) SGOT/AST (test code = AST) 14 Units/L 15-37 L SGPT/ALT (test code = ALT) 19 Units/L 12.0-78.0 N ALKALINE PHOSPHATASE TOTAL (test 132 Units/L 50.0-136.0 N code = ALKP) [id number] 12:05:00 Test Item Value Reference Range Interpretation Comments LIPASE (test code = LIP) 36 Units/L 65.0-230.0 L CBC W/AUTO [id number] 11:49:00 Test Item Value Reference Range Interpretation Comments WHITE BLOOD CELL (test code = 7.1 K/mm3 4.5-11.0 N WBC) RED BLOOD CELL (test code = 4.32 M/mm3 3.80-5.20 N RBC) HEMOGLOBIN (test code = HGB) 11.1 gm/dL 12.0-16.0 L HEMATOCRIT (test code = HCT) 37.5 % 36.0-48.0 N MEAN CELL VOLUME (test code = 86.8 UM3 82.0-99.0 N MCV) MEAN CELL HGB (test code = MCH) 25.7 UUG 25.5-32.5 N MEAN CELL HGB CONCETRATION 29.6 gm/dL 29.0-35.5 N (test code = MCHC) RED CELL DISTRIBUTION WIDTH 15.2 % 11.5-15.0 H (test code = RDW) RED CELL DISTRIBUTION WIDTH SD 49.1 fL 34.8-50.2 N (test code = RDW-SD) PLATELET COUNT (test code = 286 K/mm3 150-400 N PLT) MEAN PLATELET VOLUME (test code 10.6 fl 7.4-10.4 H = MPV) NEUTROPHIL % (test code = NT%) 69.3 % 49.0-76.0 N IMMATURE GRANULOCYTE % (test 0.1 % 0.0-0.4 N code = IG%) LYMPHOCYTE % (test code = LY%) 19.9 % 23.0-38.0 L MONOCYTE % (test code = MO%) 7.4 % 1.0-10.0 N EOSINOPHIL % (test code = EO%) 3.0 % 1.0-5.0 N BASOPHIL % (test code = BA%) 0.3 % 0.0-1.0 N NUCLEATED RBC % (test code = 0.0 % 0.0-0.1 N NRBC%) NEUTROPHIL # (test code = NT#) 4.9 K/mm3 2.4-6.3 N IMMATURE GRANULOCYTE # (test 0.01 x10 3/uL 0.00-0.07 N code = IG#) LYMPHOCYTE # (test code = LY#) 1.4 K/mm3 1.2-4.0 N MONOCYTE # (test code = MO#) 0.5 K/mm3 0.0-0.6 N EOSINOPHIL # (test code = EO#) 0.2 K/MM3 0.0-0.7 N BASOPHIL # (test code = BA#) 0.0 K/mm3 0.0-0.2 N NUCLEATED RBC # (test code = 0.00 X10 3uL 0.00-0.01 N NRBC#) URINALYSIS [id number] 11:38:00 Test Item Value Reference Range Interpretation Comments UA COLOR (test code = YELLOW COLU) UA APPEARANCE (test code SLHZY = APPU) UA GLUCOSE DIPSTICK (test NORMAL mg/dl NORMAL code = DGLUU) UA BILIRUBIN DIPSTICK NEGATIVE mg/dL NEGATIVE (test code = BILU) UA KETONE DIPSTICK (test NEGATIVE mg/dl NEGATIVE code = KETU) UA SPECIFIC GRAVITY (test 1.010 1.000-1.030 code = SGU) UA BLOOD DIPSTICK (test 10 Jorge Alberto/micL Jorge Alberto/micL NEGATIVE A code = [place]) UA PH DIPSTICK (test code 7.0 5.0-9.0 = FOSTER) UA PROTEIN DIPSTICK (test NEGATIVE mg/dl NEGATIVE code = PROU) UA UROBILINIOGEN DIPSTICK NORMAL mg/dl NORMAL (test code = URO) UA NITRITE DIPSTICK (test NEGATIVE NEGATIVE code = SU) UA LEUKOCYTE ESTERASE NEGATIVE Debi/micL NEGATIVE DIPSTICK (test code = LEUU) UA WBC (test code = WBCU) 0-3 WBC/HPF NONE UA RBC (test code = RBCU) 1-3 RBC/HPF 0-3 UA EPITHELIAL CELLS (test 15-25 EPI/HPF 0-3 A code = EPIU) UA BACTERIA (test code = MOD NONE BACU) UR HCG [id number] 11:38:00 Test Item Value Reference Range Interpretation Comments UR HCG QUAL (test code = HCGQLU) NEGATIVE NEGATIVE URINALYSIS [id number] 11:35:00 Test Item Value Reference Range Interpretation Comments UA COLOR (test code = YELLOW COLU) UA APPEARANCE (test code SLHZY = APPU) UA GLUCOSE DIPSTICK (test NORMAL mg/dl NORMAL code = DGLUU) UA BILIRUBIN DIPSTICK NEGATIVE mg/dL NEGATIVE (test code = BILU) UA KETONE DIPSTICK (test NEGATIVE mg/dl NEGATIVE code = KETU) UA SPECIFIC GRAVITY (test 1.010 1.000-1.030 code = SGU) UA BLOOD DIPSTICK (test 10 Jorge Alberto/micL Jorge Alberto/micL NEGATIVE A code = [place]) UA PH DIPSTICK (test code 7.0 5.0-9.0 = FOSTER) UA PROTEIN DIPSTICK (test NEGATIVE mg/dl NEGATIVE code = PROU) UA UROBILINIOGEN DIPSTICK NORMAL mg/dl NORMAL (test code = URO) UA NITRITE DIPSTICK (test NEGATIVE NEGATIVE code = SU) UA LEUKOCYTE ESTERASE NEGATIVE Debi/micL NEGATIVE DIPSTICK (test code = LEUU) UA WBC (test code = WBCU) WBC/HPF NONE UA RBC (test code = RBCU) RBC/HPF 0-3 UA EPITHELIAL CELLS (test EPI/HPF 0-3 code = EPIU) UA BACTERIA (test code = NONE BACU) UR HCG [id number] 11:35:00 Test Item Value Reference Range Interpretation Comments UR HCG QUAL (test code = HCGQLU) NEGATIVE NEGATIVE URINALYSIS [id number] 11:34:00 Test Item Value Reference Range Interpretation Comments UA COLOR (test code = YELLOW COLU) UA APPEARANCE (test code SLHZY = APPU) UA GLUCOSE DIPSTICK (test NORMAL mg/dl NORMAL code = DGLUU) UA BILIRUBIN DIPSTICK NEGATIVE mg/dL NEGATIVE (test code = BILU) UA KETONE DIPSTICK (test NEGATIVE mg/dl NEGATIVE code = KETU) UA SPECIFIC GRAVITY (test 1.010 1.000-1.030 code = SGU) UA BLOOD DIPSTICK (test 10 Jorge Alberto/micL Jorge Alberto/micL NEGATIVE A code = [place]) UA PH DIPSTICK (test code 7.0 5.0-9.0 = FOSTER) UA PROTEIN DIPSTICK (test NEGATIVE mg/dl NEGATIVE code = PROU) UA UROBILINIOGEN DIPSTICK NORMAL mg/dl NORMAL (test code = URO) UA NITRITE DIPSTICK (test NEGATIVE NEGATIVE code = SU) UA LEUKOCYTE ESTERASE NEGATIVE Debi/micL NEGATIVE DIPSTICK (test code = LEUU) UA WBC (test code = WBCU) WBC/HPF NONE UA RBC (test code = RBCU) RBC/HPF 0-3 UA EPITHELIAL CELLS (test EPI/HPF 0-3 code = EPIU) UA BACTERIA (test code = NONE BACU) UR HCG [id number] 11:34:00 Test Item Value Reference Range Interpretation Comments UR HCG QUAL (test code = HCGQLU) NEGATIVE URINE AND [id number] 22:33:00 Test Item Value Reference Range Interpretation Comments UA Color (test code = Light Yellow UA Color) *NA*(01/30/21 5:33 PM) [facility] AND [id number] 22:33:00 Test Item Value Reference Range Interpretation Comments UA Turbidity (test code = Clear (01/30/21 5:33 UA Turbidity) PM) [facility] AND [id number] 22:33:00 Test Item Value Reference Range Interpretation Comments UA Spec Grav (test code = UA Spec 1.004 1 Grav) [facility] AND [id number] 22:33:00 Test Item Value Reference Range Interpretation Comments UA pH (test code = UA pH) 7.0 1 5.0-8.0 [facility] [id number] 22:33:00 Test Item Value Reference Range Interpretation Comments UA Protein (test code Negative (01/30/21 5:33 = [facility]A Protein) PM) [facility] [id number] 22:33:00 Test Item Value Reference Range Interpretation Comments UA Glucose (test code Negative *NA*(01/30/21 = UA Glucose) 5:33 PM) [facility] [id number] 22:33:00 Test Item Value Reference Range Interpretation Comments UA Ketones (test code Negative *NA*(01/30/21 = UA Ketones) 5:33 PM) [facility] [id number] 22:33:00 Test Item Value Reference Range Interpretation Comments UA Bili (test code = Negative *NA*(01/30/21 UA Bili) 5:33 PM) [facility] [id number] 22:33:00 Test Item Value Reference Range Interpretation Comments UA Blood (test code = Negative (01/30/21 5:33 UA Blood) PM) [facility] [id number] 22:33:00 Test Item Value Reference Range Interpretation Comments UA Urobilinogen (test code = UA <=1.0 mg/dL 0.1-1.0 Urobilinogen) [facility] [id number] 22:33:00 Test Item Value Reference Range Interpretation Comments UA Nitrite (test code Negative (01/30/21 5:33 = UA Nitrite) PM) [facility] [id number] 22:33:00 Test Item Value Reference Range Interpretation Comments UA Leuk Est (test Negative (01/30/21 5:33 code = UA Leuk Est) PM) [facility] [id number] 22:33:00 Test Item Value Reference Range Interpretation Comments UA Sq Epi (test code = UA Sq Occasional /LPF Epi) [facility] [id number] 22:33:00 Test Item Value Reference Range Interpretation Comments UA WBC (test code = 2 See_Comment [Automa kody message] The UA WBC) system which ge nerated this result transmit kody reference range : <=5. The reference range was not used to interpr et this result as michell l/abnormal. [facility] [id number] 22:33:00 Test Item Value Reference Range Interpretation Comments UA RBC (test code = 1 See_Comment [Automa kody message] The UA RBC) system which ge nerated this result transmit kody reference range : <=2. The reference range was not used to interpr et this result as michell l/abnormal. [facility] [id number] 22:33:00 Test Item Value Reference Range Interpretation Comments UA Bacteria (test code = UA Occasional /HPF Bacteria) [facility] [id number] 22:33:00 Test Item Value Reference Range Interpretation Comments UA Color (test code = Light Yellow UA Color) *NA*(01/30/21 5:33 PM) [facility] [id number] 22:33:00 Test Item Value Reference Range Interpretation Comments UA Turbidity (test code = Clear (01/30/21 5:33 UA Turbidity) PM) [facility] AND [id number] 22:33:00 Test Item Value Reference Range Interpretation Comments UA Spec Grav (test code = UA Spec 1.004 1 Grav) [facility] AND [id number] 22:33:00 Test Item Value Reference Range Interpretation Comments UA pH (test code = UA pH) 7.0 1 5.0-8.0 [facility] AND [id number] 22:33:00 Test Item Value Reference Range Interpretation Comments UA Protein (test code Negative (01/30/21 5:33 = UA Protein) PM) [facility] AND [id number] 22:33:00 Test Item Value Reference Range Interpretation Comments UA Glucose (test code Negative *NA*(01/30/21 = UA Glucose) 5:33 PM) [facility] AND [id number] 22:33:00 Test Item Value Reference Range Interpretation Comments UA Ketones (test code Negative *NA*(01/30/21 = UA Ketones) 5:33 PM) [facility] AND [id number] 22:33:00 Test Item Value Reference Range Interpretation Comments UA Bili (test code = Negative *NA*(01/30/21 UA Bili) 5:33 PM) [facility] AND [id number] 22:33:00 Test Item Value Reference Range Interpretation Comments UA Blood (test code = Negative (01/30/21 5:33 UA Blood) PM) [facility] AND [id number] 22:33:00 Test Item Value Reference Range Interpretation Comments UA Urobilinogen (test code = UA <=1.0 mg/dL 0.1-1.0 Urobilinogen) [facility] AND [id number] 22:33:00 Test Item Value Reference Range Interpretation Comments UA Nitrite (test code Negative (01/30/21 5:33 = UA Nitrite) PM) [facility] AND [id number] 22:33:00 Test Item Value Reference Range Interpretation Comments UA Leuk Est (test Negative (01/30/21 5:33 code = UA Leuk Est) PM) [facility] AND [id number] 22:33:00 Test Item Value Reference Range Interpretation Comments UA Sq Epi (test code = UA Sq Occasional /LPF Epi) [facility] AND [id number] 22:33:00 Test Item Value Reference Range Interpretation Comments UA WBC (test code = 2 See_Comment [Automa kody message] The UA WBC) system which ge nerated this result transmit kody reference range : <=5. The reference range was not used to interpr et this result as michell l/abnormal. [facility] AND [id number] 22:33:00 Test Item Value Reference Range Interpretation Comments UA RBC (test code = 1 See_Comment [Automa kody message] The UA RBC) system which ge nerated this result transmit kody reference range : <=2. The reference range was not used to interpr et this result as michell l/abnormal. [facility] AND [id number] 22:33:00 Test Item Value Reference Range Interpretation Comments UA Bacteria (test code = UA Occasional /HPF Bacteria) [facility]2021-09-14 22:30:00 Test Item Value Reference Range Interpretation Comments Glucose Lvl (test code = Glucose Lvl) 85 70-99 [facility]2021-09-14 22:30:00 Test Item Value Reference Range Interpretation Comments BUN (test code = BUN) 13 7-22 [facility]2021-09-14 22:30:00 Test Item Value Reference Range Interpretation Comments Creatinine Lvl (test code = Creatinine 0.97 0.50-1.40 Lvl) [facility]2021-09-14 22:30:00 Test Item Value Reference Range Interpretation Comments Sodium Lvl (test code = Sodium Lvl) 136 135-145 [place] [id number] 22:30:00 Test Item Value Reference Range Interpretation Comments Potassium Lvl (test code = Potassium 4.3 3.5-5.1 Lvl) [facility]2021-09-14 22:30:00 Test Item Value Reference Range Interpretation Comments Chloride Lvl (test code = Chloride Lvl) 106 95-109 [place] 559311-09-14 22:30:00 Test Item Value Reference Range Interpretation Comments CO2 (test code = CO2) 21 24-32 [place] [id number] 22:30:00 Test Item Value Reference Range Interpretation Comments Calcium Lvl (test code = Calcium Lvl) 9.3 8.5-10.5 [facility] [id number] 22:30:00 Test Item Value Reference Range Interpretation Comments Total Protein (test code = Total 7.9 6.4-8.4 Protein) [facility] [id number] 22:30:00 Test Item Value Reference Range Interpretation Comments Albumin Lvl (test code = Albumin Lvl) 3.3 3.5-5.0 [facility] [id number] 22:30:00 Test Item Value Reference Range Interpretation Comments ALT (test code = ALT) 20 See_Comment [Auto mated message] The system which ge nerated this result transmit kody reference range : <=65. The reference range was not used to interpr et this result as michell l/abnormal. [facility] [id number] 22:30:00 Test Item Value Reference Range Interpretation Comments AST (test code = AST) 16 See_Comment [Auto mated message] The system which ge nerated this result transmit kody reference range : <=37. The reference range was not used to interpr et this result as michell l/abnormal. [facility] [id number] 22:30:00 Test Item Value Reference Range Interpretation Comments Alk Phos (test code = Alk Phos) 148 39-136 [facility] [id number] 22:30:00 Test Item Value Reference Range Interpretation Comments Bili Total (test code = Bili Total) 0.2 0.2-1.3 [facility] [id number] 22:30:00 Test Item Value Reference Range Interpretation Comments AGAP (test code = AGAP) 13.3 10.0-20.0 [facility] [id number] 22:30:00 Test Item Value Reference Range Interpretation Comments B/C Ratio (test code = B/C Ratio) 13 1 6-25 [facility] [id number] 22:30:00 Test Item Value Reference Range Interpretation Comments Globulin (test code = Globulin) 4.6 2.7-4.2 [facility] [id number] 22:30:00 Test Item Value Reference Range Interpretation Comments A/G Ratio (test code = A/G Ratio) 0.7 1 0.7-1.6 [facility] [id number] 22:30:00 Test Item Value Reference Range Interpretation Comments eGFR (test code = eGFR) 71 [facility] [id number] 22:30:00 Test Item Value Reference Range Interpretation Comments Lipase Lvl (test code = Lipase Lvl) 60 73-393 [facility]LC2102[facility]-28 22:30:00 Test Item Value Reference Range Interpretation Comments S Preg (test code = S Negative *NA*(01/30/21 Preg) 5:30 PM) [place] [id number] 22:30:00 Test Item Value Reference Range Interpretation Comments WBC (test code = WBC) 8.3 3.7-10.4 [id number] 22:30:00 Test Item Value Reference Range Interpretation Comments RBC (test code = RBC) 4.63 4.20-5.40 [id number] 22:30:00 Test Item Value Reference Range Interpretation Comments Hgb (test code = Hgb) 11.9 12.0-16.0 [id number] 22:30:00 Test Item Value Reference Range Interpretation Comments Hct (test code = Hct) 37.3 36.0-48.0 [facility]bergIhobsjmMVJOYJOWKD7004-55-17 22:30:00 Test Item Value Reference Range Interpretation Comments MCV (test code = MCV) 80.6 80.0-98.0 [id number] 22:30:00 Test Item Value Reference Range Interpretation Comments MCH (test code = MCH) 25.7 pg 27.0-31.0 [place] [id number] 22:30:00 Test Item Value Reference Range Interpretation Comments MCHC (test code = MCHC) 31.9 32.0-36.0 [facility]bergGhomtsvNAOQTHEWMF1731-54-28 22:30:00 Test Item Value Reference Range Interpretation Comments RDW (test code = RDW) 16.8 11.5-14.5 [place] 765441-09-14 22:30:00 Test Item Value Reference Range Interpretation Comments Platelet (test code = Platelet) 270 133-450 [facility] Kl[id number] 22:30:00 Test Item Value Reference Range Interpretation Comments MPV (test code = MPV) 8.9 7.4-10.4 [facility]bergVtyuqrbTWVRINUDTY0355-55-95 22:30:00 Test Item Value Reference Range Interpretation Comments Segs (test code = Segs) 63.8 45.0-75.0 [facility] KlebergAnolpadNGYEABYXIR0557-65-96 22:30:00 Test Item Value Reference Range Interpretation Comments Lymphocytes (test code = Lymphocytes) 24.5 20.0-40.0 [facility] KlebergAzusaipQZXKLKVZBQ7897-10-76 22:30:00 Test Item Value Reference Range Interpretation Comments Monocytes (test code = Monocytes) 8.1 2.0-12.0 [facility]bergIsbtzlzGEHSMPRRUK5532-34-46 22:30:00 Test Item Value Reference Range Interpretation Comments Eosinophils (test code = 3.2 See_Comment [A utomated message] The Eosinophils) system which ge nerated this result tra nsmitted reference range : <=4.0. The reference r belinda was not used to int erpret this result as normal/abnormal . [facility] KlebergDchmpqdYTQVZABCQU0108-75-60 22:30:00 Test Item Value Reference Range Interpretation Comments Basophils (test code = 0.4 See_Comment [Aut omated message] The Basophils) system which ge nerated this result tra nsmitted reference range : <=1.0. The reference r belinda was not used to int erpret this result as normal/abnormal . [facility]bergHkprlacAJMSASJGQQ5058-38-30 22:30:00 Test Item Value Reference Range Interpretation Comments Neutrophils # (test code = Neutrophils 5.3 1.5-8.1 #) [facility] KlebergUgmurfvYQQTNLEAMB1202-27-95 22:30:00 Test Item Value Reference Range Interpretation Comments Lymphocytes # (test code = Lymphocytes 2.0 1.0-5.5 #) [facility] Klebe[id number] 22:30:00 Test Item Value Reference Range Interpretation Comments Monocytes # (test code 0.7 See_Comment [Aut omated message] The = Monocytes #) system which generated this result tra nsmitted reference range : <=0.8. The reference r belinda was not used to int erpret this result as normal/abnormal . [facility]bergXnwmefkKGZFRQZVZG6446-92-74 22:30:00 Test Item Value Reference Range Interpretation Comments Eosinophils # (test code 0.3 See_Comment [A utomated message] The = Eosinophils #) system whic h generated this result tra nsmitted reference range : <=0.5. The reference r belinda was not used to int erpret this result as normal/abnormal . [place] 559311-09-14 22:30:00 Test Item Value Reference Range Interpretation Comments Glucose Lvl (test code = Glucose Lvl) 85 70-99 [place] 559311-09-14 22:30:00 Test Item Value Reference Range Interpretation Comments BUN (test code = BUN) 13 7-22 [place] 559311-09-14 22:30:00 Test Item Value Reference Range Interpretation Comments Creatinine Lvl (test code = Creatinine 0.97 0.50-1.40 Lvl) [place] 559311-09-14 22:30:00 Test Item Value Reference Range Interpretation Comments Sodium Lvl (test code = Sodium Lvl) 136 135-145 [place] 559311-09-14 22:30:00 Test Item Value Reference Range Interpretation Comments Potassium Lvl (test code = Potassium 4.3 3.5-5.1 Lvl) [place] 559311-09-14 22:30:00 Test Item Value Reference Range Interpretation Comments Chloride Lvl (test code = Chloride Lvl) 106 95-109 [place] 559311-09-14 22:30:00 Test Item Value Reference Range Interpretation Comments CO2 (test code = CO2) 21 24-32 [place] 559311-09-14 22:30:00 Test Item Value Reference Range Interpretation Comments Calcium Lvl (test code = Calcium Lvl) 9.3 8.5-10.5 [place] 559311-09-14 22:30:00 Test Item Value Reference Range Interpretation Comments Total Protein (test code = Total 7.9 6.4-8.4 Protein) [place] 559311-09-14 22:30:00 Test Item Value Reference Range Interpretation Comments Albumin Lvl (test code = Albumin Lvl) 3.3 3.5-5.0 [place] 559311-09-14 22:30:00 Test Item Value Reference Range Interpretation Comments ALT (test code = ALT) 20 See_Comment [Auto mated message] The system which ge nerated this result transmit kody reference range : <=65. The reference range was not used to interpr et this result as michell l/abnormal. [facility] [id number] 22:30:00 Test Item Value Reference Range Interpretation Comments AST (test code = AST) 16 See_Comment [Auto mated message] The system which ge nerated this result transmit kody reference range : <=37. The reference range was not used to interpr et this result as michell l/abnormal. [facility] [id number] 22:30:00 Test Item Value Reference Range Interpretation Comments Alk Phos (test code = Alk Phos) 148 39-136 [facility] [id number] 22:30:00 Test Item Value Reference Range Interpretation Comments Bili Total (test code = Bili Total) 0.2 0.2-1.3 [facility] [id number] 22:30:00 Test Item Value Reference Range Interpretation Comments AGAP (test code = AGAP) 13.3 10.0-20.0 [facility] [id number] 22:30:00 Test Item Value Reference Range Interpretation Comments B/C Ratio (test code = B/C Ratio) 13 1 6-25 [facility] [id number] 22:30:00 Test Item Value Reference Range Interpretation Comments Globulin (test code = Globulin) 4.6 2.7-4.2 [facility] [id number] 22:30:00 Test Item Value Reference Range Interpretation Comments A/G Ratio (test code = A/G Ratio) 0.7 1 0.7-1.6 [facility] [id number] 22:30:00 Test Item Value Reference Range Interpretation Comments eGFR (test code = eGFR) 71 [facility] [id number] 22:30:00 Test Item Value Reference Range Interpretation Comments Lipase Lvl (test code = Lipase Lvl) 60 73-393 [facility]WaqfnemAYNSTPLCESKRW5359-67-76 22:30:00 Test Item Value Reference Range Interpretation Comments S Preg (test code = S Negative *NA*(01/30/21 Preg) 5:30 PM) [facility] KlebergLsuuxeoACMLBRSMEI0684-33-06 22:30:00 Test Item Value Reference Range Interpretation Comments WBC (test code = WBC) 8.3 3.7-10.4 [facility] KlebergStdxrgdDGIEEUUIKN8322-69-79 22:30:00 Test Item Value Reference Range Interpretation Comments RBC (test code = RBC) 4.63 4.20-5.40 [facility] KlebergDrtansqXIMYEORBJI0119-37-73 22:30:00 Test Item Value Reference Range Interpretation Comments Hgb (test code = Hgb) 11.9 12.0-16.0 [facility] KlebergXhqubxwRJJDLGPXWR5755-35-81 22:30:00 Test Item Value Reference Range Interpretation Comments Hct (test code = Hct) 37.3 36.0-48.0 [facility] KlebergJndweczKOPJPQGOQS1513-65-68 22:30:00 Test Item Value Reference Range Interpretation Comments MCV (test code = MCV) 80.6 80.0-98.0 [facility] KlebergMtvqrkrQAYJBNGJGG9026-84-10 22:30:00 Test Item Value Reference Range Interpretation Comments MCH (test code = MCH) 25.7 pg 27.0-31.0 [facility] KlebergGyntrwlBWJJTVKUIR5459-21-67 22:30:00 Test Item Value Reference Range Interpretation Comments MCHC (test code = MCHC) 31.9 32.0-36.0 [facility] KlebergVvolpkyPPMYJXWZLM1608-27-29 22:30:00 Test Item Value Reference Range Interpretation Comments RDW (test code = RDW) 16.8 11.5-14.5 [facility] KlebergPqjdycrAWMNFXMYGK7474-98-05 22:30:00 Test Item Value Reference Range Interpretation Comments Platelet (test code = Platelet) 270 133-450 [facility] KlebergFclkyuwDYGWHWKVSJ7188-05-23 22:30:00 Test Item Value Reference Range Interpretation Comments MPV (test code = MPV) 8.9 7.4-10.4 [facility] KlebergTbmnmrkCUUNXRKAWT4332-36-73 22:30:00 Test Item Value Reference Range Interpretation Comments Segs (test code = Segs) 63.8 45.0-75.0 [facility] KlebergGufeqlzAWBPWVXLPK0189-05-00 22:30:00 Test Item Value Reference Range Interpretation Comments Lymphocytes (test code = Lymphocytes) 24.5 20.0-40.0 [facility] KlebergCfswueaREAKPFULXE3340-55-42 22:30:00 Test Item Value Reference Range Interpretation Comments Monocytes (test code = Monocytes) 8.1 2.0-12.0 [facility] KlebergRvsuqmyDBGVKCGEPX1698-74-33 22:30:00 Test Item Value Reference Range Interpretation Comments Eosinophils (test code = 3.2 See_Comment [A utomated message] The Eosinophils) system which ge nerated this result tra nsmitted reference range : <=4.0. The reference r belinda was not used to int erpret this result as normal/abnormal . [facility] KlebergJdeewhdLWUMYABIXL9914-96-88 22:30:00 Test Item Value Reference Range Interpretation Comments Basophils (test code = 0.4 See_Comment [Aut omated message] The Basophils) system which ge nerated this result tra nsmitted reference range : <=1.0. The reference r belinda was not used to int erpret this result as normal/abnormal . [facility] KlebergMpioyceFVIOXSJXHF3140-53-21 22:30:00 Test Item Value Reference Range Interpretation Comments Neutrophils # (test code = Neutrophils 5.3 1.5-8.1 #) [facility] KlebergTfbkxjqQXQDQJOLDK0841-70-70 22:30:00 Test Item Value Reference Range Interpretation Comments Lymphocytes # (test code = Lymphocytes 2.0 1.0-5.5 #) [facility] KlebergWuimctuVHYMMFQJJJ2855-76-57 22:30:00 Test Item Value Reference Range Interpretation Comments Monocytes # (test code 0.7 See_Comment [Aut omated message] The = Monocytes #) system which generated this result tra nsmitted reference range : <=0.8. The reference r belinda was not used to int erpret this result as normal/abnormal . [facility] KlebergTuohrwqQVPZHZEMCP7744-83-06 22:30:00 Test Item Value Reference Range Interpretation Comments Eosinophils # (test code 0.3 See_Comment [A utomated message] The = Eosinophils #) system whic h generated this result tra nsmitted reference range : <=0.5. The reference r belinda was not used to int erpret this result as normal/abnormal . [facility]bergQtrfzmgCMQYUBTTZH5408-73-03 16:07:00 Test Item Value Reference Range Interpretation Comments COLOR (test code = COLU) YELLOW YELLOW CLARITY (test code = CLA) CLEAR CLEAR GLUCOSE UR (test code = UA GLUCOSE) NEGATIVE NEGATIVE BILI UR (test code = BILE) NEGATIVE NEGATIVE KETONES UR (test code = JAIR) NEGATIVE NEGATIVE SP GRAVITY (test code = SPGR) 1.007 1.005-1.030 PH UR (test code = PH) 7.0 4.5-8.0 PROTEIN UR (test code = PU) NEGATIVE NEGATIVE UROBIL UR (test code = UROQ) 0.2 EU/dL 0.2-1.0 NITRITE UR (test code = NITRITE) NEGATIVE NEGATIVE BLOOD UR (test code = UA BLOOD) NEGATIVE NEGATIVE LEUK ES UR (test code = LEUK) NEGATIVE NEGATIVE AUAM (test code = AUAM) NO NO COMPREHENSIVE METABOLIC [id number] 16:04:00 Test Item Value Reference Range Interpretation Comments GLUCOSE (test code 82 mg/dL 75-100 = 06D) SODIUM (test code 138 mmol/L 136-145 = 01A) POTASSIUM (test 4.3 mmol/L 3.6-5.1 code = 01B) CHLORIDE (test 103 mmol/L 98-107 code = 04A) CO2 (test code = 29 mmol/L 22-32 02A) ANION GAP (test 10.3 mmol/L code = ANG) BUN (test code = 13 mg/dL 7-18 05D) CREATININE (test 1.2 mg/dL 0.4-1.1 H code = 03E) GFR (test code = 57 See_Comment L [Automated GFR) mL/min/1.73m\\S\\2 message] Th e system which generated this result transmit kody reference range : >=90. The reference range was not used to interpret this result as normal/abnormal . GFR 66 See_Comment L [Automated DOMINICAN (test mL/min/1.73m\\S\\2 message] The code = GFRAA) system which generated this result transmit kody reference range : >=90. The reference range was not used to interpret this result as normal/abnormal . EGFR (test code = eGFR BY EGFR) CKD-EPI CALCULATION IS NOT RECOMMENDED FOR PATIENTS UNDER 18 YEARS OF AGE. BUN/CREA (test 11 12-20 L code = BCR) CALCIUM (test code 9.8 mg/dL 8.3-9.5 H = 09D) BILI TOTAL (test 0.2 mg/dL 0.2-1.0 code = 11A) PROTEIN (test code 8.8 g/dL 6.4-8.2 H = 07D) ALBUMIN (test code 3.7 g/dL 3.5-4.8 = 08D) GLOBULIN (test 5.1 g/dL 1.5-3.8 H code = GLB) ALB/GLOB (test 0.7 1.0-2.6 L code = AGRR) ALK PHOS (test 168 IU/L 42-121 H code = 35A) AST (test code = 20 IU/L See_Comment [Automated 30A) message] The system which generated this result transmit kody reference range : <=42. The reference range was not used to interpret this result as normal/abnormal . ALT (test code = 22 IU/L See_Comment [Automated 31A) message] The system which generated this result transmit kody reference range : <=78. The reference range was not used to interpret this result as normal/abnormal . CARDIAC [id number] 16:03:00 Test Item Value Reference Range Interpretation Comments TROPONIN I (test code = A84) <0.015 ng/mL 0.000-0.045 LIPASE [id number] 16:03:00 Test Item Value Reference Range Interpretation Comments LIPASE (test code = 60A) 57 IU/L 73-393 L [id number] 16:03:00 Test Item Value Reference Range Interpretation Comments MAGNESIUM (test code = 48A) 2.2 mg/dL 1.8-2.4 SERUM [id number] 15:57:00 Test Item Value Reference Range Interpretation Comments PREG SRM (test code = PGS) NEGATIVE NEGATIVE CBC (INCLUDES AUTOMATED DIFFERENTIAL)2021-01-30 15:51:00 Test Item Value Reference Range Interpretation Comments WBC (test code = WBC) 8.9 10\\S\\3/uL 4.5-11.0 RBC (test code = RBC) 5.24 10\\S\\6/uL 4.20-5.60 HGB (test code = HBG) 13.6 g/dL 12.0-15.5 HCT (test code = HCT) 44.4 % 35.0-44.0 H MCV (test code = MCV) 84.7 fL 81.0-99.0 MCH (test code = MCH) 26.0 pg 27.0-31.0 L MCHC (test code = MCHC) 30.6 g/dL 32.0-36.0 L RDW (test code = RDW) 15.3 % 11.5-14.5 H PLT (test code = PLT) 304 10\\S\\3/uL 130-400 MPV (test code = MPV) 11.4 fL 9.4-12.4 NEUTROP # (test code = NE#) 6.1 10\\S\\3/uL 1.6-8.0 LYMPH # (test code = LY#) 1.8 10\\S\\3/uL 1.1-3.5 MONOCYTE # (test code = MO#) 0.6 10\\S\\3/uL 0.0-1.1 EOSINOPH # (test code = EO#) 0.3 10\\S\\3/uL 0.0-0.7 BASOPHIL # (test code = BA#) 0.1 10\\S\\3/uL 0.0-0.3 IG # (test code = IG#) 0.02 10\\S\\3/uL 0.00-0.06 NRBC # (test code = NRBC#) 0.00 10\\S\\3/uL 0.00-0.01 NEUTROPH % (test code = NE%) 68.2 % 35.0-73.0 LYMPH % (test code = LY%) 20.2 % 20.0-55.0 MONO % (test code = MO%) 7.1 % 2.5-10.0 EOSINOPH % (test code = EO%) 3.7 % 0.0-5.0 BASOPHIL % (test code = BA%) 0.6 % 0.0-2.0 IG % (test code = IG%) 0.2 % 0.0-0.8 NRBC% (test code = NRBC%) 0.0 % 0.0-0.2 MANDIFF (test code = MDIFF) NO RBC MORPH (test code = RBCMOR) NORMAL BLOOD [id number] 06:59:00 Test Item Value Reference Range Interpretation Comments Culture Observations (test NO GROWTH AFTER 5 code = COB1) DAYS BLOOD [id number] 06:58:00 Test Item Value Reference Range Interpretation Comments Culture Observations (test NO GROWTH AFTER 5 code = COB1) DAYS Type and Screen - ONCE [id number] 02:10:25 Test Item Value Reference Range Interpretation Comments ABO & RH (test code O Positive Performe d at [facility] = 20) Laboratory [facility] [place], [place] [address]Toll Free: [phone] A No. [id number] IAT (test code = Negative Performed a t [facility] 1185) Laboratory [facility] Blood [place] [address]Toll Free: [phone] A No. [id number] [facility] [id number] 02:10:25 Test Item Value Reference Range Interpretation Comments ABO & RH (test code O Positive Performe d at [facility] = 20) Laboratory [facility] Blood [place] [address]Toll Free: [phone] A No. [id number] IAT (test code = Negative Performed a t [facility] 1185) Laboratory [facility] Blood [place] [address]Toll Free: [phone] A No. [id number] [facility]. METABOLIC PANEL ([id number])2021-01-29 01:03:16 Test Item Value Reference Range Interpretation Comments NA (test code = 137 mmol/L 135-145 4171985101) K (test code = 4.5 mmol/L 3.5-5.0 7725720452) CL (test code = 103 mmol/L 98-108 8245152373) CO2 TOTAL (test code = 26 mmol/L 23-31 8359179459) AGAP (test code = 2-16 6851991137) BUN (test code = 11 mg/dL 7-23 2082356697) GLUCOSE (test code = 100 mg/dL 70-110 4065956636) CREATININE (test code = 0.97 mg/dL 0.50-1.04 6380928669) TOTAL BILI (test code = 0.5 mg/dL 0.1-1.9 5313244060) CALCIUM (test code = 9.6 mg/dL 8.6-10.6 2995059678) T PROTEIN (test code = 7.9 g/dL 6.3-8.2 5031523675) ALBUMIN (test code = 4.2 g/dL 3.5-5.0 9774926677) ALK PHOS (test code = 130 U/L 34-122 H 7307862600) ALTv (test code = 20 U/L 5-35 1742-6) AST(SGOT) (test code = 26 U/L 13-40 1364126033) eGFR (test code = mL/min/1.73m2 7759737115) MIKY (test code = MIKY) Association of Glomerular Filtration Rate (GFR) and Staging of Kidney Disease* + --+ --+ ------+| GFR (mL/min/1.73 m2) ?| With Kidney Damage ?| ?Without Kidney Damage+ --------+ --------+ +| ?>90 ?| ?Stage one ?| ? Normal ?+ ---+ ---+ -------+| ?60-89 ?| ?Stage two ?| ? Decreased GFR ? + --+ --+ ------+| ?30-59 ?| ?Stage three ?| ? Stage three ? + --+ --+ ------+| ?15-29 ?| ?Stage four ? | ? Stage four ?+ ---+ ---+ -------+| ?<15 (or dialysis) ? ?| ?Stage five ? | ? Stage five ?+ ---+ ---+ -------+ *Each stage assumes the associated GFR level has been in effect for at least three months. ?Stages 1 to 5, with or without kidney disease, indicate chronic kidney disease. Notes: Determination of stages one and two (with eGFR >59mL/min/1.73 m2) requires estimation of kidney damage for at least three months as defined by structural or functional abnormalities of the kidney, manifested by either:Pathological abnormalities or Markers of kidney damage (including abnormalities in the composition of the blood or urine or abnormalities in imaging tests). Lab Interpretation Abnormal (test code = 06992-8) [facility]. METABOLIC PANEL ([id number])2021-01-29 01:03:16 Test Item Value Reference Range Interpretation Comments NA (test code = 137 mmol/L 135-145 5819426861) K (test code = 4.5 mmol/L 3.5-5.0 4636825509) CL (test code = 103 mmol/L 98-108 4202432294) CO2 TOTAL (test code = 26 mmol/L 23-31 7035511876) AGAP (test code = 2-16 9596054901) BUN (test code = 11 mg/dL 7-23 4074891917) GLUCOSE (test code = 100 mg/dL 70-110 5399457942) CREATININE (test code = 0.97 mg/dL 0.50-1.04 5705400325) TOTAL BILI (test code = 0.5 mg/dL 0.1-1.3 2102859336) CALCIUM (test code = 9.6 mg/dL 8.6-10.6 4681799259) T PROTEIN (test code = 7.9 g/dL 6.3-8.2 6929427355) ALBUMIN (test code = 4.2 g/dL 3.5-5.0 1915361507) ALK PHOS (test code = 130 U/L 34-122 H 5618547101) ALTv (test code = 20 U/L 5-35 1742-6) AST(SGOT) (test code = 26 U/L 13-40 5838353273) eGFR (test code = mL/min/1.73m2 5817832189) MIKY (test code = MIKY) Association of Glomerular Filtration Rate (GFR) and Staging of Kidney Disease* + --+ --+ ------+| GFR (mL/min/1.73 m2) ?| With Kidney Damage ?| ?Without Kidney Damage+ --------+ --------+ +| ?>90 ?| ?Stage one ?| ? Normal ?+ ---+ ---+ -------+| ?60-89 ?| ?Stage two ?| ? Decreased GFR ? + --+ --+ ------+| ?30-59 ?| ?Stage three ?| ? Stage three ? + --+ --+ ------+| ?15-29 ?| ?Stage four ? | ? Stage four ?+ ---+ ---+ -------+| ?<15 (or dialysis) ? ?| ?Stage five ? | ? Stage five ?+ ---+ ---+ -------+ *Each stage assumes the associated GFR level has been in effect for at least three months. ?Stages 1 to 5, with or without kidney disease, indicate chronic kidney disease. Notes: Determination of stages one and two (with eGFR >59mL/min/1.73 m2) requires estimation of kidney damage for at least three months as defined by structural or functional abnormalities of the kidney, manifested by either:Pathological abnormalities or Markers of kidney damage (including abnormalities in the composition of the blood or urine or abnormalities in imaging tests). Lab Interpretation Abnormal (test code = 31693-9) [facility] 01:03[facility]00 Test Item Value Reference Range Interpretation Comments LIPASE (test code = 8233067128) 31 U/L 0-220 Lab Interpretation (test code = Normal 79843-7) [facility] 01:03:00 Test Item Value Reference Range Interpretation Comments LIPASE (test code = 8212379782) 31 U/L 0-220 Lab Interpretation (test code = Normal 38996-1) [facility]ACT[facility] [id number] 00:52:35 Test Item Value Reference Range Interpretation Comments APTT Patient (test See_Comment [Automat ed code = 3173-2) message] The system which generated this result transmitted reference range : 23 - 38 Seconds . The reference range was not used to interpr et this result as normal/abnormal . MIKY (test code = MIKY) The [facility] patient population mean normal value for aPTT is 30 seconds. Lab Interpretation Normal (test code = 90245-4) [facility] [id number] 00:52:35 Test Item Value Reference Range Interpretation Comments APTT Patient (test See_Comment [Automat ed code = 3173-2) message] The system which generated this result transmitted reference range : 23 - 38 Seconds . The reference range was not used to interpr et this result as normal/abnormal . MIKY (test code = MIKY) The [facility] patient population mean normal value for aPTT is 30 seconds. Lab Interpretation Normal (test code = 10079-0) [facility] [id number] 00:46:18 Test Item Value Reference Range Interpretation Comments WBC (test code = See_Comment [Automated 6690-2) message] The sy stem which generated this result transmitted reference range : 4.30 - 11.10 10*3/?L. The reference range was not used to interpret this result as normal/abnormal . RBC (test code = See_Comment [Automated 789-8) message] The sy stem which generated this result transmitted reference range : 3.93 - 5.25 10*6/?L. The reference range was not used to interpret this result as normal/abnormal . HGB (test code = 11.6 g/dL 11.6-15.0 718-7) HCT (test code = 37.8 % 35.7-45.2 4544-3) MCV (test code = 83.3 fL 80.6-95.5 787-2) MCH (test code = 25.6 pg 25.9-32.8 L 785-6) MCHC (test code = 30.7 g/dL 31.6-35.1 L 786-4) RDW-SD (test code = 47.3 fL 39.0-49.9 85702-5) RDW-CV (test code = 15.5 % 12.0-15.5 788-0) PLT (test code = See_Comment [Automated 777-3) message] The sy stem which generated this result transmitted reference range : 166 - 358 10*3/ ?L. The reference r belinda was not used to interpret this result as normal/abnormal . MPV (test code = 10.6 fL 9.5-12.9 46244-2) NRBC/100 WBC (test See_Comment [Automat ed code = 3231331152) message] The system which generated this result transmitted reference range : 0.0 - 10.0 /100 WBCs. The refer ence range was not u sed to interpret th is result as normal/abnormal . NRBC x10^3 (test code <0.01 See_Comment [Auto mated = 6950894865) message] The s ystem which generated this result transmitted reference range : 10*3/?L. The reference range was not used to interpret this result as normal/abnormal . GRAN MAT (NEUT) % 63.0 % (test code = 770-8) IMM GRAN % (test code 0.20 % = 6905376000) LYMPH % (test code = 24.9 % 736-9) MONO % (test code = 6.9 % 5905-5) EOS % (test code = 4.5 % 713-8) BASO % (test code = 0.5 % 706-2) GRAN MAT x10^3(ANC) 5.05 10*3/uL 1.88-7.09 (test code = 9845530500) IMM GRAN x10^3 (test <0.03 0.00-0.06 code = 7367510105) LYMPH x10^3 (test code 2.00 10*3/uL 1.32-3.29 = 731-0) MONO x10^3 (test code 0.55 10*3/uL 0.33-0.92 = 742-7) EOS x10^3 (test code = 0.36 10*3/uL 0.03-0.39 711-2) BASO x10^3 (test code 0.04 10*3/uL 0.01-0.07 = 704-7) Lab Interpretation Abnormal (test code = 11730-4) [facility] WITH [id number] 00:46:18 Test Item Value Reference Range Interpretation Comments WBC (test code = See_Comment [Automated 1090-2) message] The sy stem which generated this result transmitted reference range : 4.30 - 11.10 10*3/?L. The reference range was not used to interpret this result as normal/abnormal . RBC (test code = See_Comment [Automated 961-8) message] The sy stem which generated this result transmitted reference range : 3.93 - 5.25 10*6/?L. The reference range was not used to interpret this result as normal/abnormal . HGB (test code = 11.6 g/dL 11.6-15.0 718-7) HCT (test code = 37.8 % 35.7-45.2 4544-3) MCV (test code = 83.3 fL 80.6-95.5 787-2) MCH (test code = 25.6 pg 25.9-32.8 L 785-6) MCHC (test code = 30.7 g/dL 31.6-35.1 L 786-4) RDW-SD (test code = 47.3 fL 39.0-49.9 47762-5) RDW-CV (test code = 15.5 % 12.0-15.5 788-0) PLT (test code = See_Comment [Automated 777-3) message] The sy stem which generated this result transmitted reference range : 166 - 358 10*3/ ?L. The reference r belinda was not used to interpret this result as normal/abnormal . MPV (test code = 10.6 fL 9.5-12.9 66438-0) NRBC/100 WBC (test See_Comment [Automat ed code = 0779589807) message] The system which generated this result transmitted reference range : 0.0 - 10.0 /100 WBCs. The refer ence range was not u sed to interpret th is result as normal/abnormal . NRBC x10^3 (test code <0.01 See_Comment [Auto mated = 9046330274) message] The s ystem which generated this result transmitted reference range : 10*3/?L. The reference range was not used to interpret this result as normal/abnormal . GRAN MAT (NEUT) % 63.0 % (test code = 770-8) IMM GRAN % (test code 0.20 % = 6976638769) LYMPH % (test code = 24.9 % 736-9) MONO % (test code = 6.9 % 5905-5) EOS % (test code = 4.5 % 713-8) BASO % (test code = 0.5 % 706-2) GRAN MAT x10^3(ANC) 5.05 10*3/uL 1.88-7.09 (test code = 7390575940) IMM GRAN x10^3 (test <0.03 0.00-0.06 code = 8519194704) LYMPH x10^3 (test code 2.00 10*3/uL 1.32-3.29 = 731-0) MONO x10^3 (test code 0.55 10*3/uL 0.33-0.92 = 742-7) EOS x10^3 (test code = 0.36 10*3/uL 0.03-0.39 711-2) BASO x10^3 (test code 0.04 10*3/uL 0.01-0.07 = 704-7) Lab Interpretation Abnormal (test code = 55687-9) [facility]PODE [id number] 00:34:00 Test Item Value Reference Range Interpretation Comments POCT PREG (test code = 1605) NEG On board controls acceptable with YES C Line (test code = 3574) POCT PREG LOT # (test code = 3575) [id number] POCT PREG TEST DATE (test 05-18-2022 code = 3576) Lab Interpretation (test code = Normal 45423-2) [facility] [id number] 00:34:00 Test Item Value Reference Range Interpretation Comments POCT PREG (test code = 1605) NEG On board controls acceptable with YES C Line (test code = 3574) POCT PREG LOT # (test code = 3575) [id number] POCT PREG TEST DATE (test 05-18-2022 code = 3576) Lab Interpretation (test code = Normal 55632-5) [facility] A[facility]EL[facility] W/O [id number] 17:14:00 [facility] [place] : 1975 Sex: F FAX: Mac Randall MD [phone] [place]: St: [facility] FAX: Ruth Ann Brennan MD [phone] Name: LIANA ASHBY [facility] : 1975 Age/S: 46/F [address] Unit: [id number] Loc: E.ERS2 [place], [place] Phys: [place] [id number] Acct: [id number] Dis Date: Status: REG ER PHONE #: [phone] Exam Date: 01/28/2021 1701 FAX #: [phone] Reason: generalized abd pain, N/V/D EXAMS: CPT CODE: [id number] CT ABD PELVIS W/O CONT 17669 LOCATION: T18 EXAM: CT ABDOMEN AND PELVIS WITHOUT CONTRAST INDICATION: generalized abdominal pain, N/V/D, COMPARISON: CT abdomen and pelvis January 08, 2021 TECHNIQUE: Multiple CT images of the abdomen and pelvis were obtained with reconstructions in the coronal and sagittal planes. No intravenous contrast was given. Up-to-date CT equipment and radiation dosereduction techniques were utilized. Automatic exposure control was utilized. FINDINGS: There are fewright lower lobe pulmonary nodules present measuring up to 3.5 mm. At least 3 right lower lobe nodules present. These nodules are unchanged from the previous CT of the abdomen and pelvis. Left lung base is clear. Liver is normal in appearance. Spleen is mildly enlarged. Calcified granuloma the spleen again noted. Gallbladder removed. Adrenal glands and pancreas normal. No renal stone or hydronephrosis is seen. There is no hydroureter or ureteral stone. Urinary bladder is unremarkable. Uterus and adnexal structures are age-appropriate in appearance. Pelvic phleboliths noted. Appendix is normal. There is no evidence for acute appendicitis. No free air or free fluid is present. No bowel obstruction is seen. Postop changes stomach present. No complication is seen. Abdominal aorta is normal in caliber. IVC is normal. Bones are intact. Peripheral soft tissues are unremarkable. IMPRESSION: 1. Normal appendix. No bowel obstruction. 2. No renal stone or hydronephrosis. 3. Postop changes stomach withoutcomplication. 4. Small right lower lobe pulmonary nodules remain unchanged. PAGE 1 Signed Report (CONTINUED) FAX: Mac Randall MD [phone] [place]: St: REG FAX: Ruth Ann Brennan MD [phone] Name: LIANA ASHBY [facility] : 1975 Age/S: 46/F [address] [facility] Unit: [id number] Loc: [address] Phys: [place] [id number] Acct: [id number] Dis Date: Status: REG ER PHONE #: [phone] Exam Date: 01/28/2021 170 FAX #: [phone] Reason: generalized abd pain, N/V/DEXAMS: CPT CODE: [id number] CT ABD PELVIS W/O CONT 22982 <Continued> at 1714 Reported and signed by: Paulo Duarte M.D. CC: Mac Hardwick M.D.; Ruth Ann Brennan MD Technologist: KARSON BLOOM Trnscrd Dt/Tm: 01/28/2021 (2821) [email or web address] Orig Print D/T: S: 01/28/2021 (0747 PAGE 2 Signed ReportBASIC METABOLIC [id number] 16:35:00 Test Item Value Reference Range Interpretation Comments SODIUM (test code = NA) 135 mmol/l 134.0-147.0 N POTASSIUM (test code = K) 4.0 mmol/L 3.6-5.2 N CHLORIDE (test code = CL) 102 mmol/l 98.0-107.0 N CARBON DIOXIDE (test code = CO2) 23.7 mmol/l 21.0-33.0 N ANION GAP (test code = GAP) 13.3 0-20 N GLUCOSE (test code = GLU) 88 mg/dl 70.0-110.0 N BLOOD UREA NITROGEN (test code = 11 mg/dl 7.0-18.0 N BUN) CREATININE (test code = CREAT) 1.15 mg/dL 0.60-1.30 N GFR NON BLACK (test code = 54 mL/min 95-105 L GFRNONBLACK) GFR BLACK (test code = GFRBLACK) 65 mL/min 115-127 L CALCIUM (test code = CA) 8.5 mg/dl 8.0-10.5 N HEPATIC FUNCTION PANEL [id number] 16:35:00 Test Item Value Reference Range Interpretation Comments TOTAL PROTEIN (test code = PROT) 7.4 gm/dL 6.4-8.2 N ALBUMIN (test code = ALB) 3.1 gm/dl 3.2-4.7 L BILIRUBIN TOTAL (test code = 0.2 mg/dl 0.0-1.0 N BILT) BILIRUBIN DIRECT (test code = <0.1 mg/dl 0.0-0.3 N BILD) SGOT/AST (test code = AST) 16 Units/L 15-37 N SGPT/ALT (test code = ALT) 21 Units/L 12.0-78.0 N ALKALINE PHOSPHATASE TOTAL (test 141 Units/L 50.0-136.0 H code = ALKP) [id number] 16:35:00 Test Item Value Reference Range Interpretation Comments LIPASE (test code = LIP) 53 Units/L 65.0-230.0 L HCG SERUM [id number] 16:35:00 Test Item Value Reference Range Interpretation Comments HCG SERUM QUAL (test code = HCGQL) NEGATIVE NEGATIVE BASIC METABOLIC [id number] 16:21:00 Test Item Value Reference Range Interpretation Comments SODIUM (test code = NA) mmol/l 134.0-147.0 POTASSIUM (test code = K) mmol/L 3.6-5.2 CHLORIDE (test code = CL) mmol/l 98.0-107.0 CARBON DIOXIDE (test code = CO2) mmol/l 21.0-33.0 ANION GAP (test code = GAP) 0-20 GLUCOSE (test code = GLU) mg/dl 70.0-110.0 BLOOD UREA NITROGEN (test code = BUN) mg/dl 7.0-18.0 CREATININE (test code = CREAT) mg/dL 0.60-1.30 GFR NON BLACK (test code = mL/min 95-105 GFRNONBLACK) GFR BLACK (test code = GFRBLACK) mL/min 115-127 CALCIUM (test code = CA) mg/dl 8.0-10.5 HEPATIC FUNCTION PANEL [id number] 16:21:00 Test Item Value Reference Range Interpretation Comments TOTAL PROTEIN (test code = PROT) gm/dL 6.4-8.2 ALBUMIN (test code = ALB) gm/dl 3.2-4.7 BILIRUBIN TOTAL (test code = BILT) mg/dl 0.0-1.0 BILIRUBIN DIRECT (test code = BILD) mg/dl 0.0-0.3 SGOT/AST (test code = AST) Units/L 15-37 SGPT/ALT (test code = ALT) Units/L 12.0-78.0 ALKALINE PHOSPHATASE TOTAL (test Units/L 50.0-136.0 code = ALKP) [id number] 16:21:00 Test Item Value Reference Range Interpretation Comments LIPASE (test code = LIP) Units/L 65.0-230.0 HCG SERUM [id number] 16:21:00 Test Item Value Reference Range Interpretation Comments HCG SERUM QUAL (test code = HCGQL) NEGATIVE NEGATIVE URINALYSIS [id number] 16:20:00 Test Item Value Reference Range Interpretation Comments UA COLOR (test code = YELLOW COLU) UA APPEARANCE (test code CLEAR = APPU) UA GLUCOSE DIPSTICK (test NORMAL mg/dl NORMAL code = DGLUU) UA BILIRUBIN DIPSTICK NEGATIVE mg/dL NEGATIVE (test code = BILU) UA KETONE DIPSTICK (test NEGATIVE mg/dl NEGATIVE code = KETU) UA SPECIFIC GRAVITY (test 1.015 1.000-1.030 code = SGU) UA BLOOD DIPSTICK (test 10 Jorge Alberto/micL Jorge Alberto/micL NEGATIVE A code = WINSTON) UA PH DIPSTICK (test code 7.0 5.0-9.0 = FOSTER) UA PROTEIN DIPSTICK (test NEGATIVE mg/dl NEGATIVE code = PROU) UA UROBILINIOGEN DIPSTICK NORMAL mg/dl NORMAL (test code = URO) UA NITRITE DIPSTICK (test NEGATIVE NEGATIVE code = SU) UA LEUKOCYTE ESTERASE NEGATIVE Debi/micL NEGATIVE DIPSTICK (test code = LEUU) UA WBC (test code = WBCU) 0-3 WBC/HPF NONE UA RBC (test code = RBCU) 0-2 RBC/HPF 0-3 UA EPITHELIAL CELLS (test 10-15 EPI/HPF 0-3 A code = EPIU) UA BACTERIA (test code = MANY NONE A BACU) UA RENAL CELLS (test code FEW = LESLYE) Specimen comments: Clean CatchURINALYSIS [id number] 16:15:00 Test Item Value Reference Range Interpretation Comments UA COLOR (test code = YELLOW COLU) UA APPEARANCE (test code CLEAR = APPU) UA GLUCOSE DIPSTICK (test NORMAL mg/dl NORMAL code = DGLUU) UA BILIRUBIN DIPSTICK NEGATIVE mg/dL NEGATIVE (test code = BILU) UA KETONE DIPSTICK (test NEGATIVE mg/dl NEGATIVE code = KETU) UA SPECIFIC GRAVITY (test 1.015 1.000-1.030 code = SGU) UA BLOOD DIPSTICK (test 10 Jorge Alberto/micL Jorge Alberto/micL NEGATIVE A code = WINSTON) UA PH DIPSTICK (test code 7.0 5.0-9.0 = FOSTER) UA PROTEIN DIPSTICK (test NEGATIVE mg/dl NEGATIVE code = PROU) UA UROBILINIOGEN DIPSTICK NORMAL mg/dl NORMAL (test code = URO) UA NITRITE DIPSTICK (test NEGATIVE NEGATIVE code = SU) UA LEUKOCYTE ESTERASE NEGATIVE Debi/micL NEGATIVE DIPSTICK (test code = LEUU) UA WBC (test code = WBCU) WBC/HPF NONE UA RBC (test code = RBCU) RBC/HPF 0-3 UA EPITHELIAL CELLS (test EPI/HPF 0-3 code = EPIU) UA BACTERIA (test code = NONE BACU) Specimen comments: Clean CatchCBC W/AUTO [id number] 16:13:00 Test Item Value Reference Range Interpretation Comments WHITE BLOOD CELL (test code = 9.1 K/mm3 4.5-11.0 N WBC) RED BLOOD CELL (test code = 4.61 M/mm3 3.80-5.20 N RBC) HEMOGLOBIN (test code = HGB) 11.8 gm/dL 12.0-16.0 L HEMATOCRIT (test code = HCT) 40.4 % 36.0-48.0 N MEAN CELL VOLUME (test code = 87.6 UM3 82.0-99.0 N MCV) MEAN CELL HGB (test code = MCH) 25.6 UUG 25.5-32.5 N MEAN CELL HGB CONCETRATION 29.2 gm/dL 29.0-35.5 N (test code = MCHC) RED CELL DISTRIBUTION WIDTH 15.9 % 11.5-15.0 H (test code = RDW) RED CELL DISTRIBUTION WIDTH SD 50.5 fL 34.8-50.2 H (test code = RDW-SD) PLATELET COUNT (test code = 304 K/mm3 150-400 N PLT) MEAN PLATELET VOLUME (test code 11.0 fl 7.4-10.4 H = MPV) NEUTROPHIL % (test code = NT%) 62.8 % 49.0-76.0 N IMMATURE GRANULOCYTE % (test 0.2 % 0.0-0.4 N code = IG%) LYMPHOCYTE % (test code = LY%) 25.6 % 23.0-38.0 N MONOCYTE % (test code = MO%) 6.6 % 1.0-10.0 N EOSINOPHIL % (test code = EO%) 4.2 % 1.0-5.0 N BASOPHIL % (test code = BA%) 0.6 % 0.0-1.0 N NUCLEATED RBC % (test code = 0.0 % 0.0-0.1 N NRBC%) NEUTROPHIL # (test code = NT#) 5.7 K/mm3 2.4-6.3 N IMMATURE GRANULOCYTE # (test 0.02 x10 3/uL 0.00-0.07 N code = IG#) LYMPHOCYTE # (test code = LY#) 2.3 K/mm3 1.2-4.0 N MONOCYTE # (test code = MO#) 0.6 K/mm3 0.0-0.6 N EOSINOPHIL # (test code = EO#) 0.4 K/MM3 0.0-0.7 N BASOPHIL # (test code = BA#) 0.1 K/mm3 0.0-0.2 N NUCLEATED RBC # (test code = 0.00 X10 3uL 0.00-0.01 N NRBC#) SARS-CoV (RAPID ANTIGEN)2021-01-22 19:24:00 Test Item Value Reference Range Interpretation Comments SARS-CoV (ANTIGEN) NEGATIVE NEGATIVE (test code = COVAG) COVID AG (test This test has been code = COVAGC) marketed under the FDA Emergency Use Authorization (EUA) to meet challenges of the COVID-19 pandemic. The validation standards normally enforced by the FDA and the [employer] ([employer]) are more stringent than those required for this test. Therefore, the result should be interpreted with caution and close attention to other clinical and epidemiological data CT ABDOMEN AND PELVIS W/O [id number] 19:04:57 [facility] LIANA ASHBYDOB: 1975 Sex: FCT ABDOMEN AND PELV IS W/O CONTRASTLocation code: [id number] INDICATIONS: Fever, abdominal pain.TECHNIQUE: Volumetric acquisition of abdomen from the level of the domes of the diaphragm to the symphysis pubis using 3 mm collimation without the use of intravenous or oral contrast. Axial and coronal images were reviewed.Dose lowering technique with automatic exposure control utilized.COMPARISON: NoneFINDINGS: Lung bases are clear. Multiple 3 to 4 mm subpleural nodules in the lung bases seen bilaterallyLiver, spleen, pancreas, and bilateral adrenal glands are within normal limits. Surgically absent gallbladder.Kidneys are normal in size and contour, without nephrolithiasis or hydronephrosis.Surgical changes by the GE junction. Surgical changes within small bowel. Normal appendix. Large bowel loops are within normal limits.Aorta tapers normally without aneurysmal dilatation. No lymphadenopathyCT Pelvis: The urinary bladder is unremarkable. Uterus is minimally atrophic in appearanceVisualized osseous structures demonstr ate mild lower lumbar facet arthrosisIMPRESSION: 1. No acute intra-abdominal findings detected.2. Prior surgical changes involving the stomach and small bowel without evidence of obstruction.3. No intra-abdominal fluid collections identified.4. Lingular atelectasis5. Multiple tiny subpleural nodules in the lung bases may be followed up with a CT of the chest in six months to year to establish stabilityElectronically signed by: Cleveland Hunter MD 01/22/2021 7:04 PM CDT [id number] 17:45:00 Test Item Value Reference Range Interpretation Comments LACTIC ACD (test code = LA) 0.9 mmol/L 0.4-2.0 CARDIAC [id number] 17:45:00 Test Item Value Reference Range Interpretation Comments TROPONIN I (test code = A84) <0.015 ng/mL 0.000-0.045 COMPREHENSIVE METABOLIC [id number] 17:43:00 Test Item Value Reference Range Interpretation Comments GLUCOSE (test code 91 mg/dL 75-100 = 06D) SODIUM (test code 141 mmol/L 136-145 = 01A) POTASSIUM (test 4.1 mmol/L 3.6-5.1 code = 01B) CHLORIDE (test 107 mmol/L 98-107 code = 04A) CO2 (test code = 28 mmol/L 22-32 02A) ANION GAP (test 10.1 mmol/L code = ANG) BUN (test code = 8 mg/dL 7-18 05D) CREATININE (test 1.0 mg/dL 0.4-1.1 code = 03E) GFR (test code = 69 See_Comment L [Automated GFR) mL/min/1.73m\\S\\2 message] Th e system which generated this result transmit kody reference range : >=90. The reference range was not used to interpret this result as normal/abnormal . GFR 80 See_Comment L [Automated DOMINICAN (test mL/min/1.73m\\S\\2 message] The code = GFRAA) system which generated this result transmit kody reference range : >=90. The reference range was not used to interpret this result as normal/abnormal . EGFR (test code = eGFR BY EGFR) CKD-EPI CALCULATION IS NOT RECOMMENDED FOR PATIENTS UNDER 18 YEARS OF AGE. BUN/CREA (test 8 12-20 L code = BCR) CALCIUM (test code 9.9 mg/dL 8.3-9.5 H = 09D) BILI TOTAL (test 0.3 mg/dL 0.2-1.0 code = 11A) PROTEIN (test code 7.7 g/dL 6.4-8.2 = 07D) ALBUMIN (test code 3.4 g/dL 3.5-4.8 L = 08D) GLOBULIN (test 4.3 g/dL 1.5-3.8 H code = GLB) ALB/GLOB (test 0.8 1.0-2.6 L code = AGRR) ALK PHOS (test 129 IU/L 42-121 H code = 35A) AST (test code = 21 IU/L See_Comment [Automated 30A) message] The system which generated this result transmit kody reference range : <=42. The reference range was not used to interpret this result as normal/abnormal . ALT (test code = 21 IU/L See_Comment [Automated 31A) message] The system which generated this result transmit kody reference range : <=78. The reference range was not used to interpret this result as normal/abnormal . SERUM [id number] 17:41:00 Test Item Value Reference Range Interpretation Comments PREG SRM (test code = PGS) NEGATIVE NEGATIVE [id number] 17:38:00 Test Item Value Reference Range Interpretation Comments COLOR (test code = COLU) YELLOW YELLOW CLARITY (test code = CLA) CLEAR CLEAR GLUCOSE UR (test code = UA GLUCOSE) NEGATIVE NEGATIVE BILI UR (test code = BILE) NEGATIVE NEGATIVE KETONES UR (test code = JAIR) NEGATIVE NEGATIVE SP GRAVITY (test code = SPGR) 1.008 1.005-1.030 PH UR (test code = PH) 6.5 4.5-8.0 PROTEIN UR (test code = PU) NEGATIVE NEGATIVE UROBIL UR (test code = UROQ) 0.2 EU/dL 0.2-1.0 NITRITE UR (test code = NITRITE) NEGATIVE NEGATIVE BLOOD UR (test code = UA BLOOD) NEGATIVE NEGATIVE LEUK ES UR (test code = LEUK) NEGATIVE NEGATIVE LIPASE [id number] 17:37:00 Test Item Value Reference Range Interpretation Comments LIPASE (test code = 60A) 39 IU/L 73-393 L [id number] 17:37:00 Test Item Value Reference Range Interpretation Comments MAGNESIUM (test code = 48A) 1.9 mg/dL 1.8-2.4 CBC (INCLUDES AUTOMATED DIFFERENTIAL)2021-01-22 17:37:00 Test Item Value Reference Range Interpretation Comments WBC (test code = WBC) 10.2 10\\S\\3/uL 4.5-11.0 RBC (test code = RBC) 4.54 10\\S\\6/uL 4.30-5.70 HGB (test code = HBG) 11.8 g/dL 12.0-15.5 L HCT (test code = HCT) 38.3 % 35.0-44.0 MCV (test code = MCV) 84.4 fL 81.0-99.0 MCH (test code = MCH) 26.0 pg 27.0-31.0 L MCHC (test code = MCHC) 30.8 g/dL 32.0-36.0 L RDW (test code = RDW) 15.5 % 11.5-14.5 H PLT (test code = PLT) 300 10\\S\\3/uL 130-400 MPV (test code = MPV) 11.3 fL 9.4-12.4 NEUTROP # (test code = NE#) 7.5 10\\S\\3/uL 1.6-8.0 LYMPH # (test code = LY#) 1.7 10\\S\\3/uL 1.1-3.5 MONOCYTE # (test code = MO#) 0.6 10\\S\\3/uL 0.0-1.1 EOSINOPH # (test code = EO#) 0.3 10\\S\\3/uL 0.0-0.7 BASOPHIL # (test code = BA#) 0.0 10\\S\\3/uL 0.0-0.3 IG # (test code = IG#) 0.02 10\\S\\3/uL 0.00-0.06 NRBC # (test code = NRBC#) 0.00 10\\S\\3/uL 0.00-0.01 NEUTROPH % (test code = NE%) 73.4 % 35.0-73.0 H LYMPH % (test code = LY%) 16.9 % 20.0-55.0 L MONO % (test code = MO%) 6.3 % 2.5-10.0 EOSINOPH % (test code = EO%) 2.8 % 0.0-5.0 BASOPHIL % (test code = BA%) 0.4 % 0.0-2.0 IG % (test code = IG%) 0.2 % 0.0-0.8 NRBC% (test code = NRBC%) 0.0 % 0.0-0.2 MANDIFF (test code = MDIFF) NO RBC MORPH (test code = RBCMOR) NORMAL XR CHEST 1 VIEW [id number] 16:59:09 [facility] 1975 Sex: FLocation: [id number]- ray exam, single portable AP frontal projection, one view, 01/22/2021omparison exam: 04/22/2020 chest x-ray examCLINICAL HISTORY: Fever, abdominal painEvolving patchy infiltrates identified in particular in the right lung with ill-defined margins. This is of concern for multifocal pneumonia possibly viral in etiology and possibly due to Covid. The heart size is within normal limits. Less likely findings could be due to CHF/fluid overload. No definite pleural effusion or abnormal air collection.IMPRESSION:Evolving bilateral ill-defined hazy infiltrates of concern for multifocal pneumonia such as that due to Covid. Less likely consideration of fluid overload accounting for the findingsElectronically signed by: Gaviota Mcdonald MD 01/22/2021 4:59 PM CDT . METABOLIC PANEL ([id number])2021-01-21 23:41:42 Test Item Value Reference Range Interpretation Comments NA (test code = 139 mmol/L 135-145 2496869271) K (test code = 4.4 mmol/L 3.5-5.0 8244026994) CL (test code = 105 mmol/L 98-108 8206242376) CO2 TOTAL (test code = 24 mmol/L 23-31 9525334116) AGAP (test code = 2-16 6716799209) BUN (test code = 12 mg/dL 7-23 9704915051) GLUCOSE (test code = 92 mg/dL 70-110 6533856870) CREATININE (test code = 1.00 mg/dL 0.50-1.04 8311176940) TOTAL BILI (test code = 0.3 mg/dL 0.1-1.1 4969399223) CALCIUM (test code = 9.8 mg/dL 8.6-10.6 0195781542) T PROTEIN (test code = 7.6 g/dL 6.3-8.2 2437914918) ALBUMIN (test code = 4.2 g/dL 3.5-5.0 4011990799) ALK PHOS (test code = 132 U/L 34-122 H 1672657122) ALTv (test code = 16 U/L 5-35 1742-6) AST(SGOT) (test code = 24 U/L 13-40 1893642965) eGFR (test code = mL/min/1.73m2 1910961567) MIKY (test code = MIKY) Association of Glomerular Filtration Rate (GFR) and Staging of Kidney Disease* + --+ --+ ------+| GFR (mL/min/1.73 m2) ?| With Kidney Damage ?| ?Without Kidney Damage+ --------+ --------+ +| ?>90 ?| ?Stage one ?| ? Normal ?+ ---+ ---+ -------+| ?60-89 ?| ?Stage two ?| ? Decreased GFR ? + --+ --+ ------+| ?30-59 ?| ?Stage three ?| ? Stage three ? + --+ --+ ------+| ?15-29 ?| ?Stage four ? | ? Stage four ?+ ---+ ---+ -------+| ?<15 (or dialysis) ? ?| ?Stage five ? | ? Stage five ?+ ---+ ---+ -------+ *Each stage assumes the associated GFR level has been in effect for at least three months. ?Stages 1 to 5, with or without kidney disease, indicate chronic kidney disease. Notes: Determination of stages one and two (with eGFR >59mL/min/1.73 m2) requires estimation of kidney damage for at least three months as defined by structural or functional abnormalities of the kidney, manifested by either:Pathological abnormalities or Markers of kidney damage (including abnormalities in the composition of the blood or urine or abnormalities in imaging tests). Lab Interpretation Abnormal (test code = 37745-2) [facility]. METABOLIC PANEL ([id number])2021-01-21 23:41:42 Test Item Value Reference Range Interpretation Comments NA (test code = 139 mmol/L 135-145 8154196123) K (test code = 4.4 mmol/L 3.5-5.0 7973445669) CL (test code = 105 mmol/L 98-108 8942977517) CO2 TOTAL (test code = 24 mmol/L 23-31 5581191816) AGAP (test code = 2-16 1176058931) BUN (test code = 12 mg/dL 7-23 1127258842) GLUCOSE (test code = 92 mg/dL 70-110 6144255614) CREATININE (test code = 1.00 mg/dL 0.50-1.04 2475147163) TOTAL BILI (test code = 0.3 mg/dL 0.1-1.4 6374961084) CALCIUM (test code = 9.8 mg/dL 8.6-10.6 0780077599) T PROTEIN (test code = 7.6 g/dL 6.3-8.2 0071725082) ALBUMIN (test code = 4.2 g/dL 3.5-5.0 6314735741) ALK PHOS (test code = 132 U/L 34-122 H 0204646837) ALTv (test code = 16 U/L 5-35 1742-6) AST(SGOT) (test code = 24 U/L 13-40 1726354651) eGFR (test code = mL/min/1.73m2 8196165144) MIKY (test code = MIKY) Association of Glomerular Filtration Rate (GFR) and Staging of Kidney Disease* + --+ --+ ------+| GFR (mL/min/1.73 m2) ?| With Kidney Damage ?| ?Without Kidney Damage+ --------+ --------+ +| ?>90 ?| ?Stage one ?| ? Normal ?+ ---+ ---+ -------+| ?60-89 ?| ?Stage two ?| ? Decreased GFR ? + --+ --+ ------+| ?30-59 ?| ?Stage three ?| ? Stage three ? + --+ --+ ------+| ?15-29 ?| ?Stage four ? | ? Stage four ?+ ---+ ---+ -------+| ?<15 (or dialysis) ? ?| ?Stage five ? | ? Stage five ?+ ---+ ---+ -------+ *Each stage assumes the associated GFR level has been in effect for at least three months. ?Stages 1 to 5, with or without kidney disease, indicate chronic kidney disease. Notes: Determination of stages one and two (with eGFR >59mL/min/1.73 m2) requires estimation of kidney damage for at least three months as defined by structural or functional abnormalities of the kidney, manifested by either:Pathological abnormalities or Markers of kidney damage (including abnormalities in the composition of the blood or urine or abnormalities in imaging tests). Lab Interpretation Abnormal (test code = 63989-9) [facility] Test Item Value Reference Range Interpretation Comments LIPASE (test code = 5421477698) 34 U/L 0-220 Lab Interpretation (test code = Normal 88144-5) [facility]41:22 Test Item Value Reference Range Interpretation Comments LIPASE (test code = 1627316203) 34 U/L 0-220 Lab Interpretation (test code = Normal 76959-3) [facility] (ID NOW RAPID TESTING)2021-01-21 23:30:39 Test Item Value Reference Range Interpretation Comments SARS-CoV-2 Rapid ID NOW Not Detected Not Detected (test code = 91517-8) MIKY (test code = MIKY) ID NOW COVID-19 Assay is an isothermal nucleic acid amplification test intended for the qualitative detection of nucleic acid from SARS-CoV-2 viral RNA in nasopharyngeal (HOOP PUNCHER) specimens. It is used under Emergency Use Authorization (EUA) by FDA. The limit of detection (LOD) of the assay is 125 Genome Equivalents/mL. A positive result is indicative of the presence of SARS-CoV-2 RNA. ?Clinical correlation with patient history and other diagnostic information is necessary to determine patient infection status. A negative (Not Detected) result does not preclude SARS-CoV-2 infection. In patients with clinical symptoms and other tests that are consistent with SARS-CoV-2 infection, negative results should be treated as presumptive negative and a new specimen should be tested with alternative PCR molecular test. Invalid: Please collect a new specimen for repeat patient testing if clinically indicated. Lab Interpretation Normal (test code = 69579-7) [facility]2021-01-21 23:30:39 Test Item Value Reference Range Interpretation Comments SARS-CoV-2 Rapid ID NOW Not Detected Not Detected (test code = 74590-7) MIYK (test code = MIKY) ID NOW COVID-19 Assay is an isothermal nucleic acid amplification test intended for the qualitative detection of nucleic acid from SARS-CoV-2 viral RNA in nasopharyngeal (HOOP PUNCHER) specimens. It is used under Emergency Use Authorization (EUA) by FDA. The limit of detection (LOD) of the assay is 125 Genome Equivalents/mL. A positive result is indicative of the presence of SARS-CoV-2 RNA. ?Clinical correlation with patient history and other diagnostic information is necessary to determine patient infection status. A negative (Not Detected) result does not preclude SARS-CoV-2 infection. In patients with clinical symptoms and other tests that are consistent with SARS-CoV-2 infection, negative results should be treated as presumptive negative and a new specimen should be tested with alternative PCR molecular test. Invalid: Please collect a new specimen for repeat patient testing if clinically indicated. Lab Interpretation Normal (test code = 87947-6) [facility] [id number] 23:15:59 Test Item Value Reference Range Interpretation Comments APTT Patient (test See_Comment [Automat ed code = 3173-2) message] The system which generated this result transmitted reference range : 23 - 38 Seconds . The reference range was not used to interpr et this result as normal/abnormal . MIKY (test code = MIKY) The [facility] patient population mean normal value for aPTT is 30 seconds. Lab Interpretation Normal (test code = 68157-5) [facility] [id number] 23:15:59 Test Item Value Reference Range Interpretation Comments APTT Patient (test See_Comment [Automat ed code = 3173-2) message] The system which generated this result transmitted reference range : 23 - 38 Seconds . The reference range was not used to interpr et this result as normal/abnormal . MIKY (test code = MIKY) The [facility] patient population mean normal value for aPTT is 30 seconds. Lab Interpretation Normal (test code = 81523-9) [facility] WITH [id number] 23:15:39 Test Item Value Reference Range Interpretation Comments WBC (test code = See_Comment [Automated 4390-2) message] The sy stem which generated this result transmitted reference range : 4.30 - 11.10 10*3/?L. The reference range was not used to interpret this result as normal/abnormal . RBC (test code = See_Comment [Automated 789-8) message] The sy stem which generated this result transmitted reference range : 3.93 - 5.25 10*6/?L. The reference range was not used to interpret this result as normal/abnormal . HGB (test code = 11.6 g/dL 11.6-15.0 718-7) HCT (test code = 37.4 % 35.7-45.2 4544-3) MCV (test code = 83.9 fL 80.6-95.5 787-2) MCH (test code = 26.0 pg 25.9-32.8 785-6) MCHC (test code = 31.0 g/dL 31.6-35.1 L 786-4) RDW-SD (test code = 46.5 fL 39.0-49.9 67994-2) RDW-CV (test code = 15.3 % 12.0-15.5 788-0) PLT (test code = See_Comment [Automated 777-3) message] The sy stem which generated this result transmitted reference range : 166 - 358 10*3/ ?L. The reference r belinda was not used to interpret this result as normal/abnormal . MPV (test code = 10.9 fL 9.5-12.9 88110-9) NRBC/100 WBC (test See_Comment [Automat ed code = 4020209745) message] The system which generated this result transmitted reference range : 0.0 - 10.0 /100 WBCs. The refer ence range was not u sed to interpret th is result as normal/abnormal . NRBC x10^3 (test code <0.01 See_Comment [Auto mated = 0181333121) message] The s ystem which generated this result transmitted reference range : 10*3/?L. The reference range was not used to interpret this result as normal/abnormal . GRAN MAT (NEUT) % 61.9 % (test code = 770-8) IMM GRAN % (test code 0.50 % = 5774235546) LYMPH % (test code = 25.0 % 736-9) MONO % (test code = 7.9 % 5905-5) EOS % (test code = 4.2 % 713-8) BASO % (test code = 0.5 % 706-2) GRAN MAT x10^3(ANC) 5.34 10*3/uL 1.88-7.09 (test code = 8226592772) IMM GRAN x10^3 (test 0.04 10*3/uL 0.00-0.06 code = 3915468165) LYMPH x10^3 (test code 2.15 10*3/uL 1.32-3.29 = 731-0) MONO x10^3 (test code 0.68 10*3/uL 0.33-0.92 = 742-7) EOS x10^3 (test code = 0.36 10*3/uL 0.03-0.39 711-2) BASO x10^3 (test code 0.04 10*3/uL 0.01-0.07 = 704-7) Lab Interpretation Abnormal (test code = 85803-8) [facility] WITH [id number] 23:15:39 Test Item Value Reference Range Interpretation Comments WBC (test code = See_Comment [Automated 3790-2) message] The sy stem which generated this result transmitted reference range : 4.30 - 11.10 10*3/?L. The reference range was not used to interpret this result as normal/abnormal . RBC (test code = See_Comment [Automated 019-8) message] The sy stem which generated this result transmitted reference range : 3.93 - 5.25 10*6/?L. The reference range was not used to interpret this result as normal/abnormal . HGB (test code = 11.6 g/dL 11.6-15.0 718-7) HCT (test code = 37.4 % 35.7-45.2 4544-3) MCV (test code = 83.9 fL 80.6-95.5 787-2) MCH (test code = 26.0 pg 25.9-32.8 785-6) MCHC (test code = 31.0 g/dL 31.6-35.1 L 786-4) RDW-SD (test code = 46.5 fL 39.0-49.9 11890-6) RDW-CV (test code = 15.3 % 12.0-15.5 788-0) PLT (test code = See_Comment [Automated 777-3) message] The sy stem which generated this result transmitted reference range : 166 - 358 10*3/ ?L. The reference r belinda was not used to interpret this result as normal/abnormal . MPV (test code = 10.9 fL 9.5-12.9 94370-1) NRBC/100 WBC (test See_Comment [Automat ed code = 9762570901) message] The system which generated this result transmitted reference range : 0.0 - 10.0 /100 WBCs. The refer ence range was not u sed to interpret th is result as normal/abnormal . NRBC x10^3 (test code <0.01 See_Comment [Auto mated = 1692122487) message] The s ystem which generated this result transmitted reference range : 10*3/?L. The reference range was not used to interpret this result as normal/abnormal . GRAN MAT (NEUT) % 61.9 % (test code = 770-8) IMM GRAN % (test code 0.50 % = 5750293420) LYMPH % (test code = 25.0 % 736-9) MONO % (test code = 7.9 % 5905-5) EOS % (test code = 4.2 % 713-8) BASO % (test code = 0.5 % 706-2) GRAN MAT x10^3(ANC) 5.34 10*3/uL 1.88-7.09 (test code = 3843320037) IMM GRAN x10^3 (test 0.04 10*3/uL 0.00-0.06 code = 4938456930) LYMPH x10^3 (test code 2.15 10*3/uL 1.32-3.29 = 731-0) MONO x10^3 (test code 0.68 10*3/uL 0.33-0.92 = 742-7) EOS x10^3 (test code = 0.36 10*3/uL 0.03-0.39 711-2) BASO x10^3 (test code 0.04 10*3/uL 0.01-0.07 = 704-7) Lab Interpretation Abnormal (test code = 08243-9) [facility] / [id number] 23:14:00 Test Item Value Reference Range Interpretation Comments PROTIME PATIENT (test See_Comment L [Auto mated message] code = 5964-2) The system [employer] generated this result transmitted ref erence range: 12.0 - 1 4.7 Seconds. The reference range was not used to int erpret this result as normal/abnormal . INR (test code = 6301-6) Nor mal INR <1.1; Warfarin Therap eutic range 2.0 to 3. 0 or 2.5 to 3.5, dep ending upon the indica tions. Lab Interpretation (test Abnormal code = 39629-5) [facility]PROT[facility] / [id number] 23:14:00 Test Item Value Reference Range Interpretation Comments PROTIME PATIENT (test See_Comment L [Auto mated message] code = 5964-2) The system [employer] generated this result transmitted ref erence range: 12.0 - 1 4.7 Seconds. The reference range was not used to int erpret this result as normal/abnormal . INR (test code = 6301-6) Nor mal INR <1.1; Warfarin Therap eutic range 2.0 to 3. 0 or 2.5 to 3.5, dep ending upon the indica tions. Lab Interpretation (test Abnormal code = 23664-1) [facility]PO[facility] [id number] 22:38:00 Test Item Value Reference Range Interpretation Comments POCT PREG (test code = 1605) negative On board controls acceptable with present C Line (test code = 3574) POCT PREG LOT # (test code = 3575) [id number] POCT PREG TEST DATE (test 05/18/2022 code = 3576) Lab Interpretation (test code = Normal 36165-0) [facility]PO[facility] [id number] 22:38:00 Test Item Value Reference Range Interpretation Comments POCT PREG (test code = 1605) negative On board controls acceptable with present C Line (test code = 3574) POCT PREG LOT # (test code = 3575) [id number] POCT PREG TEST DATE (test 05/18/2022 code = 3576) Lab Interpretation (test code = Normal 28367-3) [facility] 22:15:34 Test Item Value Reference Range Interpretation Comments APPEARANCE (test code = Clear Clear 3643125613) COLOR (test code = Yellow Yellow 0185985642) PH (test code = 4.8-8.0 1067281516) SP GRAVITY (test code = 1.003-1.030 2444664071) GLU U QUAL (test code = Normal Normal 6392115250) BLOOD (test code = Negative Negative 7654211151) KETONES (test code = Negative Negative 8202489178) PROTEIN (test code = Negative Negative 2887-8) UROBILIN (test code = Normal Normal 7034448961) BILIRUBIN (test code = Negative Negative 4929266805) NITRITE (test code = Negative Negative 8892664133) LEUK NEREYDA (test code = Negative Negative 6259036315) RBC/HPF (test code = See_Comment [Autom ated message] 0571031875) The system [employer] generated this result transmitted ref erence range: 0 - 3 HP F. The reference range was not used to int erpret this result as normal/abnormal . WBC/HPF (test code = See_Comment [Autom ated message] 2178899646) The system [employer] generated this result transmitted ref erence range: 0 - 5 HP F. The reference range was not used to int erpret this result as normal/abnormal . BACTERIA (test code = Negative Negative 1126109101) MUCOUS (test code = Slight Negative LPF A 7377288547) SQ EPITH (test code = HPF 8783561673) Lab Interpretation (test Abnormal code = 16837-8) [facility] 22:15:34 Test Item Value Reference Range Interpretation Comments APPEARANCE (test code = Clear Clear 5171109732) COLOR (test code = Yellow Yellow 7511449583) PH (test code = 4.8-8.0 0770880884) SP GRAVITY (test code = 1.003-1.030 1597829317) GLU U QUAL (test code = Normal Normal 9728418530) BLOOD (test code = Negative Negative 5136465022) KETONES (test code = Negative Negative 5762759590) PROTEIN (test code = Negative Negative 2887-8) UROBILIN (test code = Normal Normal 8378378249) BILIRUBIN (test code = Negative Negative 4573631174) NITRITE (test code = Negative Negative 9532929199) LEUK NEREYDA (test code = Negative Negative 7076477396) RBC/HPF (test code = See_Comment [Autom ated message] 3429143695) The system [employer] generated this result transmitted ref erence range: 0 - 3 HP F. The reference range was not used to int erpret this result as normal/abnormal . WBC/HPF (test code = See_Comment [Autom ated message] 0740582910) The system [employer] generated this result transmitted ref erence range: 0 - 5 HP F. The reference range was not used to int erpret this result as normal/abnormal . BACTERIA (test code = Negative Negative 4184963225) MUCOUS (test code = Slight Negative LPF A 4989680231) SQ EPITH (test code = HPF 3842794773) Lab Interpretation (test Abnormal code = 65814-4) [facility] CenterCT [facility] [id number] 12:04:00 [facility] Gloria : 1975 Sex: F [facility] [address] [address] Patient Name: LIANA ASHBY MR #: [id number] : 1975 Age/Sex: 45/F Req #: [id number] [facility] Physician: Ordered by: Kassi tSrong MD Report #: [id number] Location: ER Room/Bed: __ Procedure: CT/CT ABDOMEN/PELVIS W Exam Date: 01/19/21 Exam Time: 1048 REPORT STATUS: Signed TECHNIQUE: CT of the abdomen and pelvis WITH intravenous contrast and WITHOUT oral contrast. Dose modulation, iterative reconstruction, and/or weight-based adjustment of the mA/kV was utilized to reduce the radiation dose to as low as reasonably achievable. IV CONTRAST: 100 mL of Isovue-370 ORAL CONTRAST: None RADIATION DOSE: Total DLP: 864 mGy*cm COMPLICATIONS: None INDICATION: Back pain. Bilateral lower abdominal pain. Nausea. COMPARISON: 12/06/2019. FINDINGS: LOWER THORAX: Unremarkable. HEPATOBILIARY: No focal hepatic lesions. Gallbladder is surgically absent. No biliary ductal dilatation. SPLEEN: No splenomegaly. PANCREAS: No focal masses or ductal dilatation. ADRENALS: No adrenal nodules. KIDNEYS/URETERS: Symmetric enhancement without hydronephrosis, perinephric fluid collection or surrounding inflammatory changes. Ureters are not dilated.. PELVIC ORGANS/BLADDER: Unremarkable. PERITONEUM/RETROPERITONEUM: No free air or fluid. LYMPH NODES: No lymphadenopathy. VESSELS: Negative for abdominal aortic aneurysm. 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 Negative for bowel obstruction. No surrounding inflammatory changes. Limited evaluation of the colon due to underdistention. Multiple fluid-filled small bowel loops are nonspecific. Normal appendix is noted.. BONES AND SOFT TISSUES: No acute osseous abnormality. Focal advanced degenerative changes are notedat L5-S1. Nosuspicious destructive or sclerotic process. Superficial soft tissues are unremarkable.. IMPRESSION:Contrast enhanced CT is negative for acute abdominopelvic process. Nonspecific fluid-filled small bowel loops can be seen in patients with enteritis. Stable postoperative changes from Jc-en-Y gastricbypass and cholecystectomy.. Signed by: David Browning MD on 01/19/2021 12:04 PM Dictated By: DAVID BROWNING MD 1206 Transcribed By: LEANA on 01/19/21 1204 COPY TO: KASSI STRONG MDBlleonidas erythrocytes automated count (number/volume)2021-01-19 09:04:00 Test Item Value Reference Range Interpretation Comments Red Blood Count (test code = 789-8) 4.79 3.6-5.1 [facility] hemoglobin measurement (moles/volume) 2021-01-19 09:04:00 Test Item Value Reference Range Interpretation Comments Hemoglobin (test code = 63627-0) 12.1 12.0-16.0 [facility]ballAutomated blood hematocrit (volume fraction) 2021-01-19 09:04:00 Test Item Value Reference Range Interpretation Comments Hematocrit (test code = 4544-3) 39.6 34.2-44.1 [facility] TomballAutomated erythrocyte mean corpuscular volume 2021-01-19 09:04:00 Test Item Value Reference Range Interpretation Comments Mean Corpuscular Volume (test code = 82.7 81-99 787-2) [facility]ballAutomated erythrocyte mean corpuscular hemoglobin (mass per erythrocyte)2021-01-19 09:04:00 Test Item Value Reference Range Interpretation Comments Mean Corpuscular Hemoglobin (test code 25.3 28-32 = 785-6) [facility]ballAutomated erythrocyte mean corpuscular hemoglobin concentration measurement (mass/volume)2021-01-19 09:04:00 Test Item Value Reference Range Interpretation Comments Mean Corpuscular Hemoglobin Concent 30.6 31-35 (test code = 786-4) [facility] TomballRDW YvgXo-Gej8788-37-03 09:04:00 Test Item Value Reference Range Interpretation Comments Red Cell Distribution Width (test code 15.5 11.7-14.4 = 69341-0) [facility]ballAutomated blood platelet count (count/volume) 2021-01-19 09:04:00 Test Item Value Reference Range Interpretation Comments Platelet Count (test code = 777-3) 300 140-360 [facility] TomballAutomated blood segmented neutrophil count as percentage of total mgbwbxcsxf2322-93-49 09:04:00 Test Item Value Reference Range Interpretation Comments Neutrophils (%) (Auto) (test code = 69.1 38.7-80.0 68236-8) [facility] TomballAutomated blood lymphocyte count as percentage ot total xzktelznzx3529-51-73 09:04:00 Test Item Value Reference Range Interpretation Comments Lymphocytes (%) (Auto) (test code = 18.6 18.0-39.1 736-9) [facility] TomballAutomated blood monocyte count as percentage of total bzymzzetpl0022-79-53 09:04:00 Test Item Value Reference Range Interpretation Comments Monocytes (%) (Auto) (test code = 7.8 4.4-11.3 5905-5) [facility] TomballAutomated blood eosinophil count as percentage of total lewuzipoit2319-03-67 09:04:00 Test Item Value Reference Range Interpretation Comments Eosinophils (%) (Auto) (test code = 3.8 0.0-6.0 713-8) [facility] TomballAutomated blood basophil count as percentage of total ehspjsodcn8736-81-38 09:04:00 Test Item Value Reference Range Interpretation Comments Basophils (%) (Auto) (test code = 0.4 0.0-1.0 706-2) [facility] TomballFluoroscopic procedure less than one hour pucfirmn6132-40-58 09:04:00 Test Item Value Reference Range Interpretation Comments IM GRANULOCYTES % (test code = IM 0.3 0.0-1.0 GRANULOCYTES %) [facility] TomballAutomated blood neutrophil ezwjp3943-73-10 09:04:00 Test Item Value Reference Range Interpretation Comments Neutrophils # (Auto) (test code = 5.0 2.1-6.9 751-8) [facility]ballBlood lymphocytes count (number/volume) 2021-01-19 09:04:00 Test Item Value Reference Range Interpretation Comments Lymphocytes # (Auto) (test code = 1.4 1.0-3.2 28957-5) [facility]ballBlood monocytes automated count (number/volume)2021-01-19 09:04:00 Test Item Value Reference Range Interpretation Comments Monocytes # (Auto) (test code = 742-7) 0.6 0.2-0.8 [facility] TomballAutomated blood eosinophil jgqmj2730-52-59 09:04:00 Test Item Value Reference Range Interpretation Comments Eosinophils # (Auto) (test code = 0.3 0.0-0.4 711-2) [facility]ballAutomated blood basophil count (count/volume) 2021-01-19 09:04:00 Test Item Value Reference Range Interpretation Comments Basophils # (Auto) (test code = 704-7) 0.0 0.0-0.1 [facility] TomballFluoroscopic procedure less than one hour vibqokyn8352-32-20 09:04:00 Test Item Value Reference Range Interpretation Comments Absolute Immature Granulocyte (auto 0.02 0-0.1 (test code = Absolute Immature Granulocyte (auto) [facility] TomballUrine color qpdkaxgkaaiqe5360-55-15 09:04:00 Test Item Value Reference Range Interpretation Comments Urine Color (test code = 5778-6) YELLOW YELLOW [facility] TomballUrine ihcnbrc7000-88-89 09:04:00 Test Item Value Reference Range Interpretation Comments Urine Clarity (test code = 26259-2) CLOUDY CLEAR [facility] U[facility] by Test strip 2021-01-19 09:04:00 Test Item Value Reference Range Interpretation Comments Urine Specific Roselle (test code = 1.015 1.010-1.025 5811-5) [facility]ballUrine pH measurement by automated test strip 2021-01-19 09:04:00 Test Item Value Reference Range Interpretation Comments Urine pH (test code = 77422-9) 6.5 5-7 [facility] TomballUrine leukocyte esterase detection by automated test kutjq8127-78-36 09:04:00 Test Item Value Reference Range Interpretation Comments Urine Leukocyte Esterase (test code NEGATIVE NEGATIVE = 79494-2) [facility] TomballUrine nitrite detection by automated test wjoik8396-27-25 09:04:00 Test Item Value Reference Range Interpretation Comments Urine Nitrite (test code = 75182-4) NEGATIVE NEGATIVE [facility] TomballUrine protein detection by automated test momzv5397-80-67 09:04:00 Test Item Value Reference Range Interpretation Comments Urine Protein (test code = 84558-2) NEGATIVE NEGATIVE [facility] TomballUrine glucose detection by automated test yspcl7015-21-71 09:04:00 Test Item Value Reference Range Interpretation Comments Urine Glucose (UA) (test code = NEGATIVE NEGATIVE 51988-2) [facility] TomballUrine ketones detection by automated test dlpmp9120-88-25 09:04:00 Test Item Value Reference Range Interpretation Comments Urine Ketones (test code = 19779-0) NEGATIVE NEGATIVE [facility] TomballUrine urobilinogen measurement by test strip (mass/volume)2021-01-19 09:04:00 Test Item Value Reference Range Interpretation Comments Urine Urobilinogen (test code = 0.2 0.2-1 30250-4) [facility] TomballUrine total bilirubin iwrgosovi6091-74-76 09:04:00 Test Item Value Reference Range Interpretation Comments Urine Bilirubin (test code = 1977-8) NEGATIVE NEGATIVE [facility] TomballUrine erythrocytes jmibfotqn2822-00-79 09:04:00 Test Item Value Reference Range Interpretation Comments Urine Blood (test code = 84862-3) NEGATIVE NEGATIVE [facility] TomballAutomated urine sediment leukocyte count by microscopy (number/high power field)2021-01-19 09:04:00 Test Item Value Reference Range Interpretation Comments Urine WBC (test code = 5821-4) 6-10 0-5 [facility] TomballErythrocytes detection in urine sediment by light spgbvwkmic9358-68-20 09:04:00 Test Item Value Reference Range Interpretation Comments Urine RBC (test code = 04405-0) 0-5 0-5 [facility] TomballBacteria detection in urine sediment by light mysjyczwxg4769-25-44 09:04:00 Test Item Value Reference Range Interpretation Comments Urine Bacteria (test code = 14997-5) MODERATE NONE [facility] TomballEpithelial cells detection in urine sediment by light uahtvdltka8303-25-38 09:04:00 Test Item Value Reference Range Interpretation Comments Urine Epithelial Cells (test code = MODERATE NONE 77494-9) [facility]ererum or plasma sodium measurement (moles/volume)2021-01-19 09:04:00 Test Item Value Reference Range Interpretation Comments Sodium Level (test code = 2951-2) 140 136-145 [facility]ererum or plasma potassium measurement (moles/volume)2021-01-19 09:04:00 Test Item Value Reference Range Interpretation Comments Potassium Level (test code = 2823-3) 4.3 3.5-5.1 [facility] Centererum or plasma chloride measurement (moles/volume)2021-01-19 09:04:00 Test Item Value Reference Range Interpretation Comments Chloride Level (test code = 2075-0) 105 98-107 [facility]ererum or plasma carbon dioxide, total measurement (moles/volume)2021-01-19 09:04:00 Test Item Value Reference Range Interpretation Comments Carbon Dioxide Level (test code = 23 22-29 8-9) [facility]ererum or plasma anion mqn9765-71-38 09:04:00 Test Item Value Reference Range Interpretation Comments Anion Gap (test code = 14339-9) 16.3 8-16 [facility]ererum or plasma urea nitrogen measurement (mass/volume)2021-01-19 09:04:00 Test Item Value Reference Range Interpretation Comments Blood Urea Nitrogen (test code = 12 - 3094-0) [facility]ererum or plasma creatinine measurement (mass/volume)2021-01-19 09:04:00 Test Item Value Reference Range Interpretation Comments Creatinine (test code = 2160-0) 1.06 0.57-1.11 [facility]ererum or plasma urea nitrogen/creatinine mass kvfxn0572-94-25 09:04:00 Test Item Value Reference Range Interpretation Comments BUN/Creatinine Ratio (test code = 11 6 3097-3) [facility] TomballEstimated glomerular filtration rate (GFR) jkwwusasorrpw3479-02-31 09:04:00 Test Item Value Reference Range Interpretation Comments Estimat Glomerular 56 See_Comment [Automat ed message] The Filtration Rate (test system which generated code = 312919670) this resul t transmitted reference range : 60-. The reference r belinda was not used to int erpret this result as normal/abnormal . [facility] TomballGlucose nsyryfsrohs0403-66-09 09:04:00 Test Item Value Reference Range Interpretation Comments Glucose Level (test code = TXL7980) 105 74-118 [facility]ererum or plasma calcium measurement (mass/volume)2021-01-19 09:04:00 Test Item Value Reference Range Interpretation Comments Calcium Level (test code = 26730-8) 9.8 8.4-10.2 [facility]ererum or plasma total bilirubin measurement (mass/volume)2021-01-19 09:04:00 Test Item Value Reference Range Interpretation Comments Total Bilirubin (test code = 1975-2) 0.4 0.2-1.2 [facility] TomballFluoroscopic procedure less than one hour zmixcxaw6416-66-44 09:04:00 Test Item Value Reference Range Interpretation Comments Aspartate Amino Transf (AST/SGOT) (test 14 5-34 code = Aspartate Amino Transf (AST/SGOT)) [facility]ererum or plasma alanine aminotransferase measurement (enzymatic activity/volume)2021-01-19 09:04:00 Test Item Value Reference Range Interpretation Comments Alanine Aminotransferase (ALT/SGPT) 15 0-55 (test code = 1742-6) [facility]ererum or plasma protein measurement (mass/volume)2021-01-19 09:04:00 Test Item Value Reference Range Interpretation Comments Total Protein (test code = 2885-2) 8.0 6.5-8.1 [facility]ererum or plasma albumin measurement (mass/volume)2021-01-19 09:04:00 Test Item Value Reference Range Interpretation Comments Albumin (test code = 1751-7) 3.8 3.5-5.0 [facility] TomballPlasma globulin measurement (mass/volume) 2021-01-19 09:04:00 Test Item Value Reference Range Interpretation Comments Globulin (test code = 61901-2) 4.2 2.3-3.5 [facility]ererum or plasma albumin/globulin mass ratio 2021-01-19 09:04:00 Test Item Value Reference Range Interpretation Comments Albumin/Globulin Ratio (test code = 0.9 0.8-2.0 1759-0) [facility]ererum or plasma alkaline phosphatase measurement (enzymatic activity/volume)2021-01-19 09:04:00 Test Item Value Reference Range Interpretation Comments Alkaline Phosphatase (test code = 127 40-150 6768-6) [facility]ererum or plasma lipase measurement (enzymatic activity/volume)2021-01-19 09:04:00 Test Item Value Reference Range Interpretation Comments Lipase (test code = 3040-3) 6 8-78 [facility] Centererum or plasma choriogonadotropin ( test) igczyzgni7963-57-87 09:04:00 Test Item Value Reference Range Interpretation Comments Human Chorionic Gonadotropin, Qual NEGATIVE NEGATIVE (test code = 2118-8) [facility]ballBlood leukocytes automated count (number/volume)2021-01-19 09:04:00 Test Item Value Reference Range Interpretation Comments White Blood Count (test code = 6690-2) 7.30 4.8-10.8 [facility] TomballPREGNANCY TEST, [id number] 23:55:24 Test Item Value Reference Range Interpretation Comments PREG SERUM (test code Negative = 9532974311) MIKY (test code = MIKY) Less than 10 IU/L. ?If low titer or ectopic is suspected, resubmit specimen in 48-72 hours. [facility], [id number] 23:55:24 Test Item Value Reference Range Interpretation Comments PREG SERUM (test code = 9741807548) Negative MIKY (test code = MIKY) [facility]TOUN[facility] BHCG (QUANTITATIVE)2021-01-12 23:24:19 Test Item Value Reference Range Interpretation Comments BETA HCG (test <2.39 See_Comment [Automated m essage] code = The system whic h [id number]) generated this result transmit kody reference range : Non- fe male and male patien ts: <5 mIU/mL. The reference range was not used to interpret this result as normal/abnormal . MIKY (test code Gestational Age ? ? = MIKY) ?Range (mIU/mL) 1-10 ?Weeks ?96-46891575-01 Weeks ?79128-90495773-15 Weeks ?9861-30134612-01 Weeks ?7031-495789 Biotin has been reported to cause a negative bias, interpret results relative to patient's use of biotin. [facility]2021-01-12 23:24:19 Test Item Value Reference Range Interpretation Comments BETA HCG (test code = <2.39 See_Comment [Auto mated message] The 9392715195) system which ge nerated this result transmit kody reference range : Non- fe male and male patients: <5 mIU/mL. The reference r belinda was not used to interpr et this result as michell l/abnormal. MIKY (test code = MIKY) [facility] CenterURINALYSIS2021-[facility] 22:42:26 Test Item Value Reference Range Interpretation Comments APPEARANCE (test code = Hazy Clear A 3748483778) COLOR (test code = Straw Yellow A 2519829565) PH (test code = 4.8-8.0 8699446128) SP GRAVITY (test code = 1.003-1.030 5235538059) GLU U QUAL (test code = Normal Normal 8547170468) BLOOD (test code = Negative Negative 4671136276) KETONES (test code = Negative Negative 6754310195) PROTEIN (test code = Negative Negative 2887-8) UROBILIN (test code = Normal Normal 6474470295) BILIRUBIN (test code = Negative Negative 1451793249) NITRITE (test code = Negative Negative 6543448948) LEUK NEREYDA (test code = Negative Negative 7719080162) RBC/HPF (test code = See_Comment [Autom ated message] 5534524994) The system [employer] generated this result transmitted ref erence range: 0 - 3 HP F. The reference range was not used to int erpret this result as normal/abnormal . WBC/HPF (test code = See_Comment [Autom ated message] 9925922291) The system [employer] generated this result transmitted ref erence range: 0 - 5 HP F. The reference range was not used to int erpret this result as normal/abnormal . BACTERIA (test code = Moderate Negative A 6945257431) MUCOUS (test code = Slight Negative LPF A 2377002447) SQ EPITH (test code = HPF 8909700017) Lab Interpretation (test Abnormal code = 99358-9) [facility]UR[facility]IS2021[facility] 22:42:26 Test Item Value Reference Range Interpretation Comments APPEARANCE (test code = Hazy Clear A 5899324310) COLOR (test code = Straw Yellow A 9616302522) PH (test code = 4.8-8.0 6664446795) SP GRAVITY (test code = 1.003-1.030 2975346502) GLU U QUAL (test code = Normal Normal 5360764408) BLOOD (test code = Negative Negative 9686810723) KETONES (test code = Negative Negative 2818827047) PROTEIN (test code = Negative Negative 2887-8) UROBILIN (test code = Normal Normal 9298039301) BILIRUBIN (test code = Negative Negative 3240282485) NITRITE (test code = Negative Negative 1352947361) LEUK NEREYDA (test code = Negative Negative 5353060866) RBC/HPF (test code = See_Comment [Autom ated message] 2300076714) The system [employer] generated this result transmitted ref erence range: 0 - 3 HP F. The reference range was not used to int erpret this result as normal/abnormal . WBC/HPF (test code = See_Comment [Autom ated message] 8808595658) The system [employer] generated this result transmitted ref erence range: 0 - 5 HP F. The reference range was not used to int erpret this result as normal/abnormal . BACTERIA (test code = Moderate Negative A 5731206872) MUCOUS (test code = Slight Negative LPF A 2777200037) SQ EPITH (test code = HPF 9773129577) Lab Interpretation (test Abnormal code = 94987-2) [facility] CenterCOM. METABOLIC PANEL (93668)2021-01-12 22:26:06 Test Item Value Reference Range Interpretation Comments NA (test code = 137 mmol/L 135-145 3872543657) K (test code = 4.1 mmol/L 3.5-5.0 3911961212) CL (test code = 104 mmol/L 98-108 2359085735) CO2 TOTAL (test code = 24 mmol/L 23-31 6222975335) AGAP (test code = 2-16 7023398908) BUN (test code = 14 mg/dL 7-23 9692694927) GLUCOSE (test code = 120 mg/dL 70-110 H 0192728830) CREATININE (test code = 1.04 mg/dL 0.50-1.04 0803409313) TOTAL BILI (test code = 0.3 mg/dL 0.1-1.4 1753201116) CALCIUM (test code = 10.0 mg/dL 8.6-10.6 5547467815) T PROTEIN (test code = 7.7 g/dL 6.3-8.2 0329714166) ALBUMIN (test code = 4.2 g/dL 3.5-5.0 3963702769) ALK PHOS (test code = 151 U/L 34-122 H 7143455978) ALTv (test code = 18 U/L 5-35 1742-6) AST(SGOT) (test code = 22 U/L 13-40 7707787077) eGFR (test code = mL/min/1.73m2 1040741565) MIKY (test code = MIKY) Association of Glomerular Filtration Rate (GFR) and Staging of Kidney Disease* + --+ --+ ------+| GFR (mL/min/1.73 m2) ?| With Kidney Damage ?| ?Without Kidney Damage+ --------+ --------+ +| ?>90 ?| ?Stage one ?| ? Normal ?+ ---+ ---+ -------+| ?60-89 ?| ?Stage two ?| ? Decreased GFR ? + --+ --+ ------+| ?30-59 ?| ?Stage three ?| ? Stage three ? + --+ --+ ------+| ?15-29 ?| ?Stage four ? | ? Stage four ?+ ---+ ---+ -------+| ?<15 (or dialysis) ? ?| ?Stage five ? | ? Stage five ?+ ---+ ---+ -------+ *Each stage assumes the associated GFR level has been in effect for at least three months. ?Stages 1 to 5, with or without kidney disease, indicate chronic kidney disease. Notes: Determination of stages one and two (with eGFR >59mL/min/1.73 m2) requires estimation of kidney damage for at least three months as defined by structural or functional abnormalities of the kidney, manifested by either:Pathological abnormalities or Markers of kidney damage (including abnormalities in the composition of the blood or urine or abnormalities in imaging tests). Lab Interpretation Abnormal (test code = 94739-1) [facility]. METABOLIC PANEL (88371)2021-01-12 22:26:06 Test Item Value Reference Range Interpretation Comments NA (test code = 7911108252) 137 mmol/L 135-145 K (test code = 0550077104) 4.1 mmol/L 3.5-5.0 CL (test code = 9218098585) 104 mmol/L 98-108 CO2 TOTAL (test code = 9126352512) 24 mmol/L 23-31 AGAP (test code = 6543355035) 2-16 BUN (test code = 5412492634) 14 mg/dL 7-23 GLUCOSE (test code = 8023933543) 120 mg/dL 70-110 H CREATININE (test code = 1.04 mg/dL 0.50-1.04 1016440556) TOTAL BILI (test code = 0.3 mg/dL 0.1-1.6 6877103881) CALCIUM (test code = 8804586985) 10.0 mg/dL 8.6-10.6 T PROTEIN (test code = 6022947673) 7.7 g/dL 6.3-8.2 ALBUMIN (test code = 7936910832) 4.2 g/dL 3.5-5.0 ALK PHOS (test code = 2992273061) 151 U/L 34-122 H ALTv (test code = 1742-6) 18 U/L 5-35 AST(SGOT) (test code = 1511100217) 22 U/L 13-40 eGFR (test code = 7604035290) mL/min/1.73m2 MIKY (test code = MIKY) Lab Interpretation (test code = Abnormal 70812-8) [facility] 22:25:44 Test Item Value Reference Range Interpretation Comments LIPASE (test code = 2210102733) 24 U/L 0-220 Lab Interpretation (test code = Normal 73566-6) [facility] 22:25:44 Test Item Value Reference Range Interpretation Comments LIPASE (test code = 0402302014) 24 U/L 0-220 Lab Interpretation (test code = Normal 60090-2) [facility] WITH [id number] 22:13:23 Test Item Value Reference Range Interpretation Comments WBC (test code = See_Comment [Automated 9990-2) message] The sy stem which generated this result transmitted reference range : 4.30 - 11.10 10*3/?L. The reference range was not used to interpret this result as normal/abnormal . RBC (test code = See_Comment [Automated 119-8) message] The sy stem which generated this result transmitted reference range : 3.93 - 5.25 10*6/?L. The reference range was not used to interpret this result as normal/abnormal . HGB (test code = 11.2 g/dL 11.6-15.0 L 718-7) HCT (test code = 36.6 % 35.7-45.2 4544-3) MCV (test code = 83.9 fL 80.6-95.5 787-2) MCH (test code = 25.7 pg 25.9-32.8 L 785-6) MCHC (test code = 30.6 g/dL 31.6-35.1 L 786-4) RDW-SD (test code = 46.2 fL 39.0-49.9 82974-3) RDW-CV (test code = 15.0 % 12.0-15.5 788-0) PLT (test code = See_Comment [Automated 927-3) message] The sy stem which generated this result transmitted reference range : 166 - 358 10*3/ ?L. The reference r belinda was not used to interpret this result as normal/abnormal . MPV (test code = 10.9 fL 9.5-12.9 52506-3) NRBC/100 WBC (test See_Comment [Automat ed code = 2300917250) message] The system which generated this result transmitted reference range : 0.0 - 10.0 /100 WBCs. The refer ence range was not u sed to interpret th is result as normal/abnormal . NRBC x10^3 (test code <0.01 See_Comment [Auto mated = 5131812771) message] The s ystem which generated this result transmitted reference range : 10*3/?L. The reference range was not used to interpret this result as normal/abnormal . GRAN MAT (NEUT) % 69.7 % (test code = 770-8) IMM GRAN % (test code 0.40 % = 3178544606) LYMPH % (test code = 20.2 % 736-9) MONO % (test code = 5.8 % 5905-5) EOS % (test code = 3.5 % 713-8) BASO % (test code = 0.4 % 706-2) GRAN MAT x10^3(ANC) 5.91 10*3/uL 1.88-7.09 (test code = 3005817935) IMM GRAN x10^3 (test 0.03 10*3/uL 0.00-0.06 code = 3246814871) LYMPH x10^3 (test code 1.71 10*3/uL 1.32-3.29 = 731-0) MONO x10^3 (test code 0.49 10*3/uL 0.33-0.92 = 742-7) EOS x10^3 (test code = 0.30 10*3/uL 0.03-0.39 711-2) BASO x10^3 (test code 0.03 10*3/uL 0.01-0.07 = 704-7) Lab Interpretation Abnormal (test code = 75059-5) [facility] WITH [id number] 22:13:23 Test Item Value Reference Range Interpretation Comments WBC (test code = See_Comment [Automated 6690-2) message] The sy stem which generated this result transmitted reference range : 4.30 - 11.10 10*3/?L. The reference range was not used to interpret this result as normal/abnormal . RBC (test code = See_Comment [Automated 789-8) message] The sy stem which generated this result transmitted reference range : 3.93 - 5.25 10*6/?L. The reference range was not used to interpret this result as normal/abnormal . HGB (test code = 11.2 g/dL 11.6-15.0 L 718-7) HCT (test code = 36.6 % 35.7-45.2 4544-3) MCV (test code = 83.9 fL 80.6-95.5 787-2) MCH (test code = 25.7 pg 25.9-32.8 L 785-6) MCHC (test code = 30.6 g/dL 31.6-35.1 L 786-4) RDW-SD (test code = 46.2 fL 39.0-49.9 04442-4) RDW-CV (test code = 15.0 % 12.0-15.5 788-0) PLT (test code = See_Comment [Automated 777-3) message] The sy stem which generated this result transmitted reference range : 166 - 358 10*3/ ?L. The reference r belinda was not used to interpret this result as normal/abnormal . MPV (test code = 10.9 fL 9.5-12.9 69149-3) NRBC/100 WBC (test See_Comment [Automat ed code = [id number]) message] The system which generated this result transmitted reference range : 0.0 - 10.0 /100 WBCs. The refer ence range was not u sed to interpret th is result as normal/abnormal . NRBC x10^3 (test code <0.01 See_Comment [Auto mated = [id number]) message] The s ystem which generated this result transmitted reference range : 10*3/?L. The reference range was not used to interpret this result as normal/abnormal . GRAN MAT (NEUT) % 69.7 % (test code = 770-8) IMM GRAN % (test code 0.40 % = 4011548997) LYMPH % (test code = 20.2 % 736-9) MONO % (test code = 5.8 % 5905-5) EOS % (test code = 3.5 % 713-8) BASO % (test code = 0.4 % 706-2) GRAN MAT x10^3(ANC) 5.91 10*3/uL 1.88-7.09 (test code = 3987542879) IMM GRAN x10^3 (test 0.03 10*3/uL 0.00-0.06 code = 5456111861) LYMPH x10^3 (test code 1.71 10*3/uL 1.32-3.29 = 731-0) MONO x10^3 (test code 0.49 10*3/uL 0.33-0.92 = 742-7) EOS x10^3 (test code = 0.30 10*3/uL 0.03-0.39 711-2) BASO x10^3 (test code 0.03 10*3/uL 0.01-0.07 = 704-7) Lab Interpretation Abnormal (test code = 76641-0) [facility]- CT ABD PELVIS [id number] 23:42:00 [facility] [place] : 1975 Sex: F FAX: Sina Dubon,Pratibha Castro MD [place]: St: REG Name: LIANA ASHBY [facility] : 1975 Age/S: 45/F [address] [facility] Unit: [id number] Loc: E.ERS2 [place], [place] Phys: [place] [address] Acct: [id number] Dis Date: Status: REG ER PHONE #: [phone] Exam Date: 01/08/2021 2317 FAX #: [phone] Reason: PAIN EXAMS: CPT CODE: [id number] CT ABD PELVIS W/CONT 59123 Examination: Abdomen and pelvic CT with contrast Location code: S17 Comparison: Abdomen and pelvic CT January 01, 2021 Technique: Thin section axial postcontrast contiguous images through the abdomen and pelvis were obtained followedby coronal and sagittal reformations. All CT scans are performed using radiation dose reduction techn ique. Technical factors are evaluated and adjusted to insure appropriate moderation of exposure. Automated dose management technology is applied to adjust the radiation dose to minimize exposure while achieving a diagnostic quality image. Discussion: Clinical history is remarkable for abdominal pain, w eakness, dizziness. There are scattered sub-5 mm pulmonary nodules present bilaterally. Heart is normal in size. Within the abdomen and pelvis, there is postsurgical change of the stomach. Liver is unremarkable. Gallbladder is absent. Splenic granuloma are noted. The pancreas and either adrenal glandappear normal. Kidneys demonstrate appropriate contour, appropriate enhancement. Retroperitoneum is unremarkable. No ileus or obstruction is identified. There is an appropriate appendix. No intra-abdominal inflammation is present. Bladder and uterus are unremarkable. Adnexa are unremarkable. There areno lytic or blastic lesions present within the osseous structures, degenerative changes of the spine are noted. Impression: 1. Stable scattered sub-5 mm pulmonary nodules are present bilaterally. 2. There is no intra-abdominal inflammatory change. Postsurgical change of the stomach is noted. PAGE 1 Signed Report (CONTINUED) FAX: Pratibha Smart MD [place]: St: REG Name: LIANA ASHBY [facility] : 1975 Age/S: 45/F [address] [facility] Unit: [id number] Loc: E.ERS2 [place], [place]: [place] [address] Acct: [id number] Dis Date: Status: REG ER PHONE #: [phone] Exam Date: 2316 FAX #: [phone] Reason: PAIN EXAMS: CPT CODE: [id number] CT ABD PELVIS W/CONT 72663 <Continued> at 2342 Reported and signed by: Michael Gary M.D. CC: Pratibha Dubon MD Technologist: HERB LUNSFORD TrnscrdDt/Tm: 01/08/2021 (8302) [email or web address] Orig Print D/T: S: 01/08/2021 (6137 PAGE 2 Signed ReportBASIC METABOLIC [id number] 22:47:00 Test Item Value Reference Range Interpretation Comments SODIUM (test code = NA) 139 mmol/l 134.0-147.0 N POTASSIUM (test code = K) 4.5 mmol/L 3.6-5.2 N CHLORIDE (test code = CL) 104 mmol/l 98.0-107.0 N CARBON DIOXIDE (test code = CO2) 24.5 mmol/l 21.0-33.0 N ANION GAP (test code = GAP) 15.0 0-20 N GLUCOSE (test code = GLU) 98 mg/dl 70.0-110.0 N BLOOD UREA NITROGEN (test code = 18 mg/dl 7.0-18.0 N BUN) CREATININE (test code = CREAT) 1.24 mg/dL 0.60-1.30 N GFR NON BLACK (test code = 50 mL/min 95-105 L GFRNONBLACK) GFR BLACK (test code = GFRBLACK) 60 mL/min 115-127 L CALCIUM (test code = CA) 8.9 mg/dl 8.0-10.5 N HEPATIC FUNCTION PANEL [id number] 22:47:00 Test Item Value Reference Range Interpretation Comments TOTAL PROTEIN (test code = PROT) 7.5 GM/DL 6.0-8.1 N ALBUMIN (test code = ALB) 3.2 gm/dL 3.2-4.7 N BILIRUBIN TOTAL (test code = 0.3 mg/dl 0.0-1.0 N BILT) BILIRUBIN DIRECT (test code = 0.1 mg/dl 0.0-0.3 N BILD) SGOT/AST (test code = AST) 33 Units/L 15-37 N SGPT/ALT (test code = ALT) 22 Units/L 12.0-78.0 N ALKALINE PHOSPHATASE TOTAL (test 129 Units/L 50.0-136.0 N code = ALKP) [id number] 22:47:00 Test Item Value Reference Range Interpretation Comments LIPASE (test code = LIP) 81 Units/L 65.0-230.0 N HCG [id number] 22:47:00 Test Item Value Reference Range Interpretation Comments HCG SERUM (test <1 MIU/ML 1-5 L REPRESENTAT FAISAL RANGE OF code = HCG) EXPECTED HCG CONCENTRATIONS: TIME POST CONCEPTION MIU/ ML <5 NOT 1 WEEK 5 - 50 2 WEEKS 4 - 1,000 3 WEEKS 1,000 - 5,000 4 WEEKS 600 - 10,000 5 - 6 WEEKS 1,500 - 100,000 7 - 8 WEEKS 16,000 - 200,00 0 2-3 MONTHS 12,000 - 300,000 2ND TRIMESTER 2 4,000 - 55,000 3RD TRIM NEREYDA 6,000 -48,000Results in irma-Internati onal Units/mL B-TYPE NATRIURETIC [id number] 22:47:00 Test Item Value Reference Range Interpretation Comments B-TYPE NATRIURETIC PEPTIDE (test <5.0 PG/ML 5-100 L code = BNP) CARDIAC ENZYMES [id number] 22:47:00 Test Item Value Reference Range Interpretation Comments CREATINE KINASE (CK) 117 Units/L 21-215 N (test code = CK) TROPONIN-I (test code <0.02 NG/ML 0.00-0.06 N REFERE NCE RANGE = TROPI) TROPONIN I HEAL THY INDIVIDUALS: <0 .06 ng/mL R/O ISCHE TUSHAR: 0.07 - 0.60 ng/ mL CUT-OFF RANGE F OR AMI: 0.60 - 1.5 ng/mL LACTIC [id number] 22:21:00 Test Item Value Reference Range Interpretation Comments LACTIC ACID (test code = LACT) 1.3 MMOL/L 0.4-2.0 N BASIC METABOLIC [id number] 22:21:00 Test Item Value Reference Range Interpretation Comments SODIUM (test code = NA) 139 mmol/l 134.0-147.0 N POTASSIUM (test code = K) 4.5 mmol/L 3.6-5.2 N CHLORIDE (test code = CL) 104 mmol/l 98.0-107.0 N CARBON DIOXIDE (test code = CO2) 24.5 mmol/l 21.0-33.0 N ANION GAP (test code = GAP) 15.0 0-20 N GLUCOSE (test code = GLU) 98 mg/dl 70.0-110.0 N BLOOD UREA NITROGEN (test code = 18 mg/dl 7.0-18.0 N BUN) CREATININE (test code = CREAT) 1.24 mg/dL 0.60-1.30 N GFR NON BLACK (test code = 50 mL/min 95-105 L GFRNONBLACK) GFR BLACK (test code = GFRBLACK) 60 mL/min 115-127 L CALCIUM (test code = CA) 8.9 mg/dl 8.0-10.5 N HEPATIC FUNCTION PANEL [id number] 22:21:00 Test Item Value Reference Range Interpretation Comments TOTAL PROTEIN (test code = PROT) 7.5 GM/DL 6.0-8.1 N ALBUMIN (test code = ALB) 3.2 gm/dL 3.2-4.7 N BILIRUBIN TOTAL (test code = 0.3 mg/dl 0.0-1.0 N BILT) BILIRUBIN DIRECT (test code = 0.1 mg/dl 0.0-0.3 N BILD) SGOT/AST (test code = AST) 33 Units/L 15-37 N SGPT/ALT (test code = ALT) 22 Units/L 12.0-78.0 N ALKALINE PHOSPHATASE TOTAL (test 129 Units/L 50.0-136.0 N code = ALKP) [id number] 22:21:00 Test Item Value Reference Range Interpretation Comments LIPASE (test code = LIP) 81 Units/L 65.0-230.0 N HCG [id number] 22:21:00 Test Item Value Reference Range Interpretation Comments HCG SERUM (test code = HCG) MIU/ML 1-5 B-TYPE NATRIURETIC [id number] 22:21:00 Test Item Value Reference Range Interpretation Comments B-TYPE NATRIURETIC PEPTIDE (test <5.0 PG/ML 5-100 L code = BNP) CARDIAC ENZYMES [id number] 22:21:00 Test Item Value Reference Range Interpretation Comments CREATINE KINASE (CK) 117 Units/L 21-215 N (test code = CK) TROPONIN-I (test code <0.02 NG/ML 0.00-0.06 N REFERE NCE RANGE = TROPI) TROPONIN I HEAL THY INDIVIDUALS: <0 .06 ng/mL R/O ISCHE TUSHAR: 0.07 - 0.60 ng/ mL CUT-OFF RANGE F OR AMI: 0.60 - 1.5 ng/mL BASIC METABOLIC [id number] 22:20:00 Test Item Value Reference Range Interpretation Comments SODIUM (test code = NA) 139 mmol/l 134.0-147.0 N POTASSIUM (test code = K) 4.5 mmol/L 3.6-5.2 N CHLORIDE (test code = CL) 104 mmol/l 98.0-107.0 N CARBON DIOXIDE (test code = CO2) 24.5 mmol/l 21.0-33.0 N ANION GAP (test code = GAP) 15.0 0-20 N GLUCOSE (test code = GLU) mg/dl 70.0-110.0 BLOOD UREA NITROGEN (test code = mg/dl 7.0-18.0 BUN) CREATININE (test code = CREAT) mg/dL 0.60-1.30 GFR NON BLACK (test code = mL/min 95-105 GFRNONBLACK) GFR BLACK (test code = GFRBLACK) mL/min 115-127 CALCIUM (test code = CA) mg/dl 8.0-10.5 HEPATIC FUNCTION PANEL [id number] 22:20:00 Test Item Value Reference Range Interpretation Comments TOTAL PROTEIN (test code = PROT) gm/dL 6.4-8.2 ALBUMIN (test code = ALB) gm/dl 3.2-4.7 BILIRUBIN TOTAL (test code = BILT) mg/dl 0.0-1.0 BILIRUBIN DIRECT (test code = BILD) mg/dl 0.0-0.3 SGOT/AST (test code = AST) Units/L 15-37 SGPT/ALT (test code = ALT) Units/L 12.0-78.0 ALKALINE PHOSPHATASE TOTAL (test Units/L 50.0-136.0 code = ALKP) [id number] 22:20:00 Test Item Value Reference Range Interpretation Comments LIPASE (test code = LIP) Units/L 65.0-230.0 HCG [id number] 22:20:00 Test Item Value Reference Range Interpretation Comments HCG SERUM (test code = HCG) MIU/ML 1-5 B-TYPE NATRIURETIC [id number] 22:20:00 Test Item Value Reference Range Interpretation Comments B-TYPE NATRIURETIC PEPTIDE (test <5.0 PG/ML 5-100 L code = BNP) CARDIAC ENZYMES [id number] 22:20:00 Test Item Value Reference Range Interpretation Comments CREATINE KINASE (CK) (test code = Units/L 21-215 CK) TROPONIN-I (test code = TROPI) NG/ML 0.00-0.06 BASIC METABOLIC [id number] 22:01:00 Test Item Value Reference Range Interpretation Comments SODIUM (test code = NA) 139 mmol/l 134.0-147.0 N POTASSIUM (test code = K) 4.5 mmol/L 3.6-5.2 N CHLORIDE (test code = CL) 104 mmol/l 98.0-107.0 N CARBON DIOXIDE (test code = CO2) 24.5 mmol/l 21.0-33.0 N ANION GAP (test code = GAP) 15.0 0-20 N GLUCOSE (test code = GLU) mg/dl 70.0-110.0 BLOOD UREA NITROGEN (test code = mg/dl 7.0-18.0 BUN) CREATININE (test code = CREAT) mg/dL 0.60-1.30 GFR NON BLACK (test code = mL/min 95-105 GFRNONBLACK) GFR BLACK (test code = GFRBLACK) mL/min 115-127 CALCIUM (test code = CA) mg/dl 8.0-10.5 HEPATIC FUNCTION PANEL [id number] 22:01:00 Test Item Value Reference Range Interpretation Comments TOTAL PROTEIN (test code = PROT) gm/dL 6.4-8.2 ALBUMIN (test code = ALB) gm/dl 3.2-4.7 BILIRUBIN TOTAL (test code = BILT) mg/dl 0.0-1.0 BILIRUBIN DIRECT (test code = BILD) mg/dl 0.0-0.3 SGOT/AST (test code = AST) Units/L 15-37 SGPT/ALT (test code = ALT) Units/L 12.0-78.0 ALKALINE PHOSPHATASE TOTAL (test Units/L 50.0-136.0 code = ALKP) [id number] 22:01:00 Test Item Value Reference Range Interpretation Comments LIPASE (test code = LIP) Units/L 65.0-230.0 HCG [id number] 22:01:00 Test Item Value Reference Range Interpretation Comments HCG SERUM (test code = HCG) MIU/ML 1-5 B-TYPE NATRIURETIC [id number] 22:01:00 Test Item Value Reference Range Interpretation Comments B-TYPE NATRIURETIC PEPTIDE (test code PG/ML 5-100 = BNP) CARDIAC ENZYMES [id number] 22:01:00 Test Item Value Reference Range Interpretation Comments CREATINE KINASE (CK) (test code = Units/L 21-215 CK) TROPONIN-I (test code = TROPI) NG/ML 0.00-0.06 CBC W/AUTO [id number] 21:46:00 Test Item Value Reference Range Interpretation Comments WHITE BLOOD CELL (test code = 10.0 K/mm3 4.5-11.0 N WBC) RED BLOOD CELL (test code = 4.70 M/mm3 3.80-5.20 N RBC) HEMOGLOBIN (test code = HGB) 11.9 gm/dL 12.0-16.0 L HEMATOCRIT (test code = HCT) 40.9 % 36.0-48.0 N MEAN CELL VOLUME (test code = 87.0 UM3 82.0-99.0 N MCV) MEAN CELL HGB (test code = MCH) 25.3 UUG 25.5-32.5 L MEAN CELL HGB CONCETRATION 29.1 gm/dL 29.0-35.5 N (test code = MCHC) RED CELL DISTRIBUTION WIDTH 15.1 % 11.5-15.0 H (test code = RDW) RED CELL DISTRIBUTION WIDTH SD 48.2 fL 34.8-50.2 N (test code = RDW-SD) PLATELET COUNT (test code = 307 K/mm3 150-400 N PLT) MEAN PLATELET VOLUME (test code 11.2 fl 7.4-10.4 H = MPV) NEUTROPHIL % (test code = NT%) 60.0 % 49.0-76.0 N IMMATURE GRANULOCYTE % (test 0.3 % 0.0-0.4 N code = IG%) LYMPHOCYTE % (test code = LY%) 26.7 % 23.0-38.0 N MONOCYTE % (test code = MO%) 8.4 % 1.0-10.0 N EOSINOPHIL % (test code = EO%) 4.1 % 1.0-5.0 N BASOPHIL % (test code = BA%) 0.5 % 0.0-1.0 N NUCLEATED RBC % (test code = 0.0 % 0.0-0.1 N NRBC%) NEUTROPHIL # (test code = NT#) 6.0 K/mm3 2.4-6.3 N IMMATURE GRANULOCYTE # (test 0.03 x10 3/uL 0.00-0.07 N code = IG#) LYMPHOCYTE # (test code = LY#) 2.7 K/mm3 1.2-4.0 N MONOCYTE # (test code = MO#) 0.8 K/mm3 0.0-0.6 H EOSINOPHIL # (test code = EO#) 0.4 K/MM3 0.0-0.7 N BASOPHIL # (test code = BA#) 0.1 K/mm3 0.0-0.2 N NUCLEATED RBC # (test code = 0.00 X10 3uL 0.00-0.01 N NRBC#) URINALYSIS [id number] 21:12:00 Test Item Value Reference Range Interpretation Comments UA COLOR (test code = YELLOW COLU) UA APPEARANCE (test code CLEAR = APPU) UA GLUCOSE DIPSTICK (test NORMAL mg/dl NORMAL code = DGLUU) UA BILIRUBIN DIPSTICK NEGATIVE mg/dL NEGATIVE (test code = BILU) UA KETONE DIPSTICK (test NEGATIVE mg/dl NEGATIVE code = KETU) UA SPECIFIC GRAVITY (test 1.015 1.000-1.030 code = SGU) UA BLOOD DIPSTICK (test NEGATIVE Jorge Alberto/micL NEGATIVE code = WINSTON) UA PH DIPSTICK (test code 6.0 5.0-9.0 = FOSTER) UA PROTEIN DIPSTICK (test NEGATIVE mg/dl NEGATIVE code = PROU) UA UROBILINIOGEN DIPSTICK NORMAL mg/dl NORMAL (test code = URO) UA NITRITE DIPSTICK (test NEGATIVE NEGATIVE code = SU) UA LEUKOCYTE ESTERASE 25 Debi/micL Debi/micL NEGATIVE A DIPSTICK (test code = LEUU) UA WBC (test code = WBCU) 0-3 WBC/HPF NONE UA RBC (test code = RBCU) 1-3 RBC/HPF 0-3 UA EPITHELIAL CELLS (test FEW EPI/HPF 0-3 code = EPIU) UA BACTERIA (test code = FEW NONE BACU) Indication for culture: RiskForSepsis-no oth srcSpecimen Description: CLEAN CATCHUA RFLX MICR CULT IF [id number] 21:12:00 Test Item Value Reference Range Interpretation Comments UA CULTURE NEEDED? (test code = Criteria Culture Chk UACULT) Indication for culture: RiskForSepsis-no oth srcSpecimen Description: CLEAN CATCHURINALYSIS [id number] 21:12:00 Test Item Value Reference Range Interpretation Comments UA COLOR (test code = YELLOW COLU) UA APPEARANCE (test code CLEAR = APPU) UA GLUCOSE DIPSTICK (test NORMAL mg/dl NORMAL code = DGLUU) UA BILIRUBIN DIPSTICK NEGATIVE mg/dL NEGATIVE (test code = BILU) UA KETONE DIPSTICK (test NEGATIVE mg/dl NEGATIVE code = KETU) UA SPECIFIC GRAVITY (test 1.015 1.000-1.030 code = SGU) UA BLOOD DIPSTICK (test NEGATIVE Jorge Alberto/micL NEGATIVE code = WINSTON) UA PH DIPSTICK (test code 6.0 5.0-9.0 = FOSTER) UA PROTEIN DIPSTICK (test NEGATIVE mg/dl NEGATIVE code = PROU) UA UROBILINIOGEN DIPSTICK NORMAL mg/dl NORMAL (test code = URO) UA NITRITE DIPSTICK (test NEGATIVE NEGATIVE code = SU) UA LEUKOCYTE ESTERASE 25 Debi/micL Debi/micL NEGATIVE A DIPSTICK (test code = LEUU) UA WBC (test code = WBCU) 0-3 WBC/HPF NONE UA RBC (test code = RBCU) 1-3 RBC/HPF 0-3 UA EPITHELIAL CELLS (test FEW EPI/HPF 0-3 code = EPIU) UA BACTERIA (test code = FEW NONE BACU) Indication for culture: RiskForSepsis-no oth srcSpecimen Description: CLEAN CATCHUA RFLX MICR CULT IF [id number] 21:12:00 Test Item Value Reference Range Interpretation Comments UA CULTURE NEEDED? NO, WBC<10 Culture Chk Criteria not met, (test code = Criteria Urine Culture UACULT) cancelled. Indication for culture: RiskForSepsis-no oth srcSpecimen Description: CLEAN CATCH- XR CHEST 1 [id number] 21:05:00 [facility] [place] : 1975 Sex: F FAX: Pratibha Smart MD [place]: St: REG Name: LIANA ASHBY [facility] : 1975 Age/S: 45/F [address] [facility] Unit #: [id number] Loc: E.[address] [place] [address] Phys: [place] [address] Acct: [id number] Dis Date: Status: REG ER PHONE #: [phone] Exam Date: 01/08/20212102 FAX #: [phone] Reason: Code SEPSIS EXAMS: CPT CODE: [id number] XR CHEST 1 V 70499 Chest one view AP 01/08/2021 9:05 PM CLINICAL HISTORY: Code sepsis COMPARISON: 10/23/2020 LOCATION: W1 FINDINGS: The lungs are clear. Cardiomediastinal contours are within normal limits. The central pulmonary vasculature is not engorged. IMPRESSION: Unremarkable frontal chest radiograph. at 5 Reported and signed by: Jono Moreland CC: Pratibha Dubon MD Technologist: AHSAN PORTILLO Trnscrd Date/Time/By: 01/08/2021 (2104) : By: [email or web address] PAGE 1 Signed Report FAX: Pratibha Smart MD [place]: St: REG Name: LIANA ASHBY [facility] : 1975 Age/S: 45/F [address] [facility] Unit #: [id number] Loc: [address] Phys: [place] [address] Acct: [id number] Dis Date: Status: REG ER PHONE #: [phone] Exam Date: 01/08/20212102 FAX #: [phone] Reason: Code SEPSIS EXAMS: CPT CODE: [id number] XR CHEST 1 V 12166 <Continued> Orig Print D/T: S: 01/08/2021 (2107) PAGE 2 Signed Report URINALYSIS [id number] 20:48:00 Test Item Value Reference Range Interpretation Comments UA COLOR (test code = YELLOW COLU) UA APPEARANCE (test code CLEAR = APPU) UA GLUCOSE DIPSTICK (test NORMAL mg/dl NORMAL code = DGLUU) UA BILIRUBIN DIPSTICK NEGATIVE mg/dL NEGATIVE (test code = BILU) UA KETONE DIPSTICK (test NEGATIVE mg/dl NEGATIVE code = KETU) UA SPECIFIC GRAVITY (test 1.015 1.000-1.030 code = SGU) UA BLOOD DIPSTICK (test NEGATIVE Jorge Alberto/micL NEGATIVE code = WINSTON) UA PH DIPSTICK (test code 6.0 5.0-9.0 = FOSTER) UA PROTEIN DIPSTICK (test NEGATIVE mg/dl NEGATIVE code = PROU) UA UROBILINIOGEN DIPSTICK NORMAL mg/dl NORMAL (test code = URO) UA NITRITE DIPSTICK (test NEGATIVE NEGATIVE code = SU) UA LEUKOCYTE ESTERASE 25 Debi/micL Debi/micL NEGATIVE A DIPSTICK (test code = LEUU) UA WBC (test code = WBCU) WBC/HPF NONE UA RBC (test code = RBCU) RBC/HPF 0-3 UA EPITHELIAL CELLS (test EPI/HPF 0-3 code = EPIU) UA BACTERIA (test code = NONE BACU) Indication for culture: RiskForSepsis-no oth srcSpecimen Description: CLEAN CATCHUA RFLX MICR CULT IF [id number] 20:48:00 Test Item Value Reference Range Interpretation Comments UA CULTURE NEEDED? (test code = Criteria Culture Chk UACULT) Indication for culture: RiskForSepsis-no oth srcSpecimen Description: CLEAN CATCHCOMP. METABOLIC PANEL ([id number] 20:06:20 Test Item Value Reference Range Interpretation Comments NA (test code = 138 mmol/L 135-145 8419477900) K (test code = 4.5 mmol/L 3.5-5.0 3380115601) CL (test code = 108 mmol/L 98-108 5476959808) CO2 TOTAL (test code = 21 mmol/L 23-31 L 8082721083) AGAP (test code = 2-16 4893996964) BUN (test code = 17 mg/dL 7-23 0134404891) GLUCOSE (test code = 107 mg/dL 70-110 1003578377) CREATININE (test code = 0.96 mg/dL 0.50-1.04 5335460711) TOTAL BILI (test code = 0.4 mg/dL 0.1-1.4 7280057266) CALCIUM (test code = 10.0 mg/dL 8.6-10.6 8678042132) T PROTEIN (test code = 7.4 g/dL 6.3-8.2 7790383294) ALBUMIN (test code = 3.9 g/dL 3.5-5.0 2275583310) ALK PHOS (test code = 134 U/L 34-122 H 0009101640) ALTv (test code = 12 U/L 5-35 1742-6) AST(SGOT) (test code = 21 U/L 13-40 3009986844) eGFR (test code = mL/min/1.73m2 8623586848) MIKY (test code = MIKY) Association of Glomerular Filtration Rate (GFR) and Staging of Kidney Disease* + --+ --+ ------+| GFR (mL/min/1.73 m2) ?| With Kidney Damage ?| ?Without Kidney Damage+ --------+ --------+ +| ?>90 ?| ?Stage one ?| ? Normal ?+ ---+ ---+ -------+| ?60-89 ?| ?Stage two ?| ? Decreased GFR ? + --+ --+ ------+| ?30-59 ?| ?Stage three ?| ? Stage three ? + --+ --+ ------+| ?15-29 ?| ?Stage four ? | ? Stage four ?+ ---+ ---+ -------+| ?<15 (or dialysis) ? ?| ?Stage five ? | ? Stage five ?+ ---+ ---+ -------+ *Each stage assumes the associated GFR level has been in effect for at least three months. ?Stages 1 to 5, with or without kidney disease, indicate chronic kidney disease. Notes: Determination of stages one and two (with eGFR >59mL/min/1.73 m2) requires estimation of kidney damage for at least three months as defined by structural or functional abnormalities of the kidney, manifested by either:Pathological abnormalities or Markers of kidney damage (including abnormalities in the composition of the blood or urine or abnormalities in imaging tests). Lab Interpretation Abnormal (test code = 35586-5) [facility] [id number] 20:01:22 Test Item Value Reference Range Interpretation Comments APPEARANCE (test code = Hazy Clear A 2366525120) COLOR (test code = Yellow Yellow 9457210886) PH (test code = 4.8-8.0 9745832708) SP GRAVITY (test code = 1.003-1.030 3514502342) GLU U QUAL (test code = Normal Normal 5572444331) BLOOD (test code = Negative Negative 4510794295) KETONES (test code = Negative Negative 8511828934) PROTEIN (test code = Negative Negative 2887-8) UROBILIN (test code = Normal Normal 5302803129) BILIRUBIN (test code = Negative Negative 8109449369) NITRITE (test code = Negative Negative 2276619187) LEUK NEREYDA (test code = Negative Negative 6448613694) RBC/HPF (test code = See_Comment [Autom ated message] 5263562371) The system [employer] generated this result transmitted ref erence range: 0 - 3 HP F. The reference range was not used to int erpret this result as normal/abnormal . WBC/HPF (test code = See_Comment [Autom ated message] [id number]) The system [employer] generated this result transmitted ref erence range: 0 - 5 HP F. The reference range was not used to int erpret this result as normal/abnormal . BACTERIA (test code = Negative Negative 8724001699) MUCOUS (test code = Slight Negative LPF A 5156376942) SQ EPITH (test code = HPF 1997343559) Lab Interpretation (test Abnormal code = 38912-2) [facility] [id number]:00:11 No acute osseous findings are seen. Preliminary Report Dictated by Resident: Terrell Restrepo MD., have reviewed this study and agree with theabove report.EXAM: XR LUMBAR SPINE2 VW HISTORY: 45 years-old Female fall TECHNIQUE: Anterior and lateral views of the lumbar spine were obtained. COMPARISON: Lumbar spine radiographs dated 08/07/2018. CT abdomen pelviswith contrast dated 07/27/2018. FINDINGS: Normal lumbar lordosis is maintained. Lumbar vertebral body height ismaintained. Mild lumbar spine degenerative changes. No acute fracture or traumatic malalignment of the lumbar spine isidentified. A rounded calcific focus at the left upper quadrant likely representsplenic granul meena seen on prior CT. [facility], Radiant Results Inft User - 01/02/2021 3:01 PM CDT EXAM: XR LUMBAR SPINE 2 VWHISTORY: 45 years-old Female fall TECHNIQUE: Anterior and lateral views of the lumbar spine were obtained.COMPARISON: Lumbar spine radiographs dated 08/07/2018. CT abdomen pelviswith contrast dated 07/27/2018.FINDINGS: Normal lumbar lordosis is maintained. Lumbar vertebral body height ismaintained. Mild lumbar spine degenerative changes. No acute fracture or traumatic malalignment of the lumbar spine isidentified.A rounded calcific focus at the left upper quadrant likely representsplenic granuloma seen on prior CT.IMPRESSIONNo acute osseous findings are seen.Preliminary Report Dictated by Resident: Terrell Hill MD., have reviewed this study and agree with theabove report.[facility]3 [id number] 19:45:29No acute fracture or dislocation is noted. Indication: fall ? Comparison: None RL: [id number] ORDERING PHYSICIAN: ROMERO MAHMOOD TECHNIQUE: 2 views of the pelvis was obtained. FINDINGS:No acute fracture or dislocation is identified. The bones arean atomically aligned. Portions of the sacrum are obscured by overlyingbowel gas and cannot be adequately evaluated. [facility], Radiant Results Inft User - 01/02/2021 2:46 PM CDT Indication: fall Comparison: NoneRL: [id number] PHYSICIAN: VANESSA GILBERT TECHNIQUE: 2 views of the pelvis was obtained. FINDINGS:No acute fracture or dislocation is identified. The bones areanatomically aligned. Portions of the sacrum are obscured by overlyingbowel gas and cannot be adequately evaluated.IMPRESSIONNo acute fracture or dislocation is noted.Electronically s igned by Lenny Juan at 01/02/2021 2:45 [facility] PO[facility] [id number] 19:10:00 Test Item Value Reference Range Interpretation Comments POCT PREG (test code = 1605) negative On board controls acceptable with present C Line (test code = 3574) POCT PREG LOT # (test code = 3575) [id number] POCT PREG TEST DATE (test 05/18/2022 code = 3576) Lab Interpretation (test code = Normal 99220-4) [facility]ID [facility]ING)2021-01-02 18:42:05 Test Item Value Reference Range Interpretation Comments SARS-CoV-2 Rapid ID NOW Not Detected Not Detected (test code = 06690-7) MIKY (test code = MIKY) ID NOW COVID-19 Assay is an isothermal nucleic acid amplification test intended for the qualitative detection of nucleic acid from SARS-CoV-2 viral RNA in nasopharyngeal (HOOP PUNCHER) specimens. It is used under Emergency Use Authorization (EUA) by FDA. The limit of detection (LOD) of the assay is 125 Genome Equivalents/mL. A positive result is indicative of the presence of SARS-CoV-2 RNA. ?Clinical correlation with patient history and other diagnostic information is necessary to determine patient infection status. A negative (Not Detected) result does not preclude SARS-CoV-2 infection. In patients with clinical symptoms and other tests that are consistent with SARS-CoV-2 infection, negative results should be treated as presumptive negative and a new specimen should be tested with alternative PCR molecular test. Invalid: Please collect a new specimen for repeat patient testing if clinically indicated. Lab Interpretation Normal (test code = 18744-0) [facility] [id number] 14:58:00 Test Item Value Reference Range Interpretation Comments Glucose Lvl (test code = Glucose Lvl) 82 70-99 [facility] [id number] 14:58:00 Test Item Value Reference Range Interpretation Comments BUN (test code = BUN) 18 7-22 [facility]2021-08-17 14:58:00 Test Item Value Reference Range Interpretation Comments Creatinine Lvl (test code = Creatinine 1.06 0.50-1.40 Lvl) [facility]2021-08-17 14:58:00 Test Item Value Reference Range Interpretation Comments Sodium Lvl (test code = Sodium Lvl) 139 135-145 [facility] [id number] 14:58:00 Test Item Value Reference Range Interpretation Comments Potassium Lvl (test code = Potassium 5.0 3.5-5.1 Lvl) [facility] [id number] 14:58:00 Test Item Value Reference Range Interpretation Comments Chloride Lvl (test code = Chloride Lvl) 105 95-109 [place] 559311-08-17 14:58:00 Test Item Value Reference Range Interpretation Comments CO2 (test code = CO2) 25 24-32 [place] 559311-08-17 14:58:00 Test Item Value Reference Range Interpretation Comments Calcium Lvl (test code = Calcium Lvl) 9.2 8.5-10.5 [facility]TexABIG[facility] [place] [id number] 14:58:00 Test Item Value Reference Range Interpretation Comments Total Protein (test code = Total 7.6 6.4-8.4 Protein) [place] 559311-08-17 14:58:00 Test Item Value Reference Range Interpretation Comments Albumin Lvl (test code = Albumin Lvl) 3.3 3.5-5.0 [facility] [id number] 14:58:00 Test Item Value Reference Range Interpretation Comments ALT (test code = ALT) 14 See_Comment [Auto mated message] The system which ge nerated this result transmit kody reference range : <=65. The reference range was not used to interpr et this result as michell l/abnormal. [facility] [id number] 14:58:00 Test Item Value Reference Range Interpretation Comments AST (test code = AST) 11 See_Comment [Auto mated message] The system which ge nerated this result transmit kody reference range : <=37. The reference range was not used to interpr et this result as michell l/abnormal. [facility] [id number] 14:58:00 Test Item Value Reference Range Interpretation Comments Alk Phos (test code = Alk Phos) 143 39-136 [facility] [id number] 14:58:00 Test Item Value Reference Range Interpretation Comments Bili Total (test code = Bili Total) 0.2 0.2-1.3 [facility] [id number] 14:58:00 Test Item Value Reference Range Interpretation Comments AGAP (test code = AGAP) 14.0 10.0-20.0 [place] 559311-08-17 14:58:00 Test Item Value Reference Range Interpretation Comments B/C Ratio (test code = B/C Ratio) 17 1 6-25 [place] 559311-08-17 14:58:00 Test Item Value Reference Range Interpretation Comments Globulin (test code = Globulin) 4.3 2.7-4.2 [place] 559311-08-17 14:58:00 Test Item Value Reference Range Interpretation Comments A/G Ratio (test code = A/G Ratio) 0.8 1 0.7-1.6 [place] 559311-08-17 14:58:00 Test Item Value Reference Range Interpretation Comments eGFR (test code = eGFR) 64 [facility]2021-08-17 14:58:00 Test Item Value Reference Range Interpretation Comments Lactic Acid Lvl (test code = Lactic 1.4 0.5-2.2 Acid Lvl) [place] [id number] 14:58:00 Test Item Value Reference Range Interpretation Comments S Preg (test code = S Negative *NA*(01/02/21 Preg) 9:58 AM) [id number] 14:58:00 Test Item Value Reference Range Interpretation Comments WBC (test code = WBC) 8.5 3.7-10.4 [place] 765441-08-17 14:58:00 Test Item Value Reference Range Interpretation Comments RBC (test code = RBC) 4.63 4.20-5.40 [place] 765441-08-17 14:58:00 Test Item Value Reference Range Interpretation Comments Hgb (test code = Hgb) 12.1 12.0-16.0 [place] 765441-08-17 14:58:00 Test Item Value Reference Range Interpretation Comments Hct (test code = Hct) 37.0 36.0-48.0 [place] 765441-08-17 14:58:00 Test Item Value Reference Range Interpretation Comments MCV (test code = MCV) 79.9 80.0-98.0 [place] 765441-08-17 14:58:00 Test Item Value Reference Range Interpretation Comments MCH (test code = MCH) 26.1 pg 27.0-31.0 [place] [address]-08-17 14:58:00 Test Item Value Reference Range Interpretation Comments MCHC (test code = MCHC) 32.6 32.0-36.0 [place] 765441-08-17 14:58:00 Test Item Value Reference Range Interpretation Comments RDW (test code = RDW) 16.0 11.5-14.5 [place] 765441-08-17 14:58:00 Test Item Value Reference Range Interpretation Comments Platelet (test code = Platelet) 276 133-450 [place] 765441-08-17 14:58:00 Test Item Value Reference Range Interpretation Comments MPV (test code = MPV) 9.0 7.4-10.4 [place] 765441-08-17 14:58:00 Test Item Value Reference Range Interpretation Comments PT (test code = PT) 12.4 s 12.0-14.7 [place] 765441-08-17 14:58:00 Test Item Value Reference Range Interpretation Comments INR (test code = INR) 0.93 1 0.85-1.17 [place] 765441-08-17 14:58:00 Test Item Value Reference Range Interpretation Comments PTT (test code = PTT) 27.7 s 22.9-35.8 [place] 765441-08-17 14:58:00 Test Item Value Reference Range Interpretation Comments Segs (test code = Segs) 67.6 45.0-75.0 [id number] 14:58:00 Test Item Value Reference Range Interpretation Comments Lymphocytes (test code = Lymphocytes) 19.7 20.0-40.0 [place] 765441-08-17 14:58:00 Test Item Value Reference Range Interpretation Comments Monocytes (test code = Monocytes) 8.9 2.0-12.0 [place] [address]-08-17 14:58:00 Test Item Value Reference Range Interpretation Comments Eosinophils (test code = 2.9 See_Comment [A utomated message] The Eosinophils) system which ge nerated this result tra nsmitted reference range : <=4.0. The reference r belinda was not used to int erpret this result as normal/abnormal . [place] 765441-08-17 14:58:00 Test Item Value Reference Range Interpretation Comments Basophils (test code = 0.9 See_Comment [Aut omated message] The Basophils) system which ge nerated this result tra nsmitted reference range : <=1.0. The reference r belinda was not used to int erpret this result as normal/abnormal . [facility] KlebergHynoodbXDNUCDHQBN4079-98-32 14:58:00 Test Item Value Reference Range Interpretation Comments Neutrophils # (test code = Neutrophils 5.7 1.5-8.1 #) [facility] KlebergYpgsobtWIJSAWKWPD7072-77-24 14:58:00 Test Item Value Reference Range Interpretation Comments Lymphocytes # (test code = Lymphocytes 1.7 1.0-5.5 #) [facility] [id number] 14:58:00 Test Item Value Reference Range Interpretation Comments Monocytes # (test code 0.8 See_Comment [Aut omated message] The = Monocytes #) system which generated this result tra nsmitted reference range : <=0.8. The reference r belinda was not used to int erpret this result as normal/abnormal . [facility] [id number] 14:58:00 Test Item Value Reference Range Interpretation Comments Eosinophils # (test code 0.2 See_Comment [A utomated message] The = Eosinophils #) system whic h generated this result tra nsmitted reference range : <=0.5. The reference r belinda was not used to int erpret this result as normal/abnormal . [facility] [id number] 14:58:00 Test Item Value Reference Range Interpretation Comments Basophils # (test code 0.1 See_Comment [Aut omated message] The = Basophils #) system which generated this result tra nsmitted reference range : <=0.2. The reference r belinda was not used to int erpret this result as normal/abnormal . [facility] AND [id number] 14:58:00 Test Item Value Reference Range Interpretation Comments UA Color (test code = Yellow *NA*(01/02/21 UA Color) 9:58 AM) [facility] AND [id number] 14:58:00 Test Item Value Reference Range Interpretation Comments UA Turbidity (test code = Clear (01/02/21 9:58 UA Turbidity) AM) [facility] AND [id number] 14:58:00 Test Item Value Reference Range Interpretation Comments UA Spec Grav (test code = UA Spec 1.025 1 Grav) [facility] AND [id number] 14:58:00 Test Item Value Reference Range Interpretation Comments UA pH (test code = UA pH) 5.5 1 5.0-8.0 [facility] AND [id number] 14:58:00 Test Item Value Reference Range Interpretation Comments UA Protein (test code = UA Negative mg/dL Protein) [facility] AND [id number] 14:58:00 Test Item Value Reference Range Interpretation Comments UA Glucose (test code = UA Negative mg/dL Glucose) [facility] AND [id number] 14:58:00 Test Item Value Reference Range Interpretation Comments UA Ketones (test code = UA Negative mg/dL Ketones) [facility] AND [id number] 14:58:00 Test Item Value Reference Range Interpretation Comments UA Bili (test code = Negative *NA*(01/02/21 UA Bili) 9:58 AM) [facility] AND [id number] 14:58:00 Test Item Value Reference Range Interpretation Comments UA Blood (test code = Negative (01/02/21 9:58 UA Blood) AM) [facility] AND [id number] 14:58:00 Test Item Value Reference Range Interpretation Comments UA Urobilinogen (test code = UA 0.2 0.1-1.0 Urobilinogen) [facility] AND [id number] 14:58:00 Test Item Value Reference Range Interpretation Comments UA Nitrite (test code Negative (01/02/21 9:58 = UA Nitrite) AM) [facility] AND [id number] 14:58:00 Test Item Value Reference Range Interpretation Comments UA Leuk Est (test Negative (01/02/21 9:58 code = UA Leuk Est) AM) [facility] AND [id number] 14:58:00 Test Item Value Reference Range Interpretation Comments UA Sq Epi (test code = UA Sq Moderate /LPF Epi) [facility] AND [id number] 14:58:00 Test Item Value Reference Range Interpretation Comments UA WBC (test code = UA WBC) 6-10 /HPF [facility] AND [id number] 14:58:00 Test Item Value Reference Range Interpretation Comments UA RBC (test code = UA RBC) 0-2 /HPF [facility] AND [id number] 14:58:00 Test Item Value Reference Range Interpretation Comments UA Bacteria (test code = UA Moderate /HPF Bacteria) [facility] AND [id number] 14:58:00 Test Item Value Reference Range Interpretation Comments UA Mucus (test code = UA Mucus) Few /LPF [facility] AND [id number] 14:58:00 Test Item Value Reference Range Interpretation Comments UA Hyal Cast (test code 0-2 (01/02/21 9:58 AM) = UA Hyal Cast) [facility]2021-08-17 14:58:00 Test Item Value Reference Range Interpretation Comments Glucose Lvl (test code = Glucose Lvl) 82 70-99 [facility]2021-08-17 14:58:00 Test Item Value Reference Range Interpretation Comments BUN (test code = BUN) 18 7-22 [facility]2021-08-17 14:58:00 Test Item Value Reference Range Interpretation Comments Creatinine Lvl (test code = Creatinine 1.06 0.50-1.40 Lvl) [facility]2021-08-17 14:58:00 Test Item Value Reference Range Interpretation Comments Sodium Lvl (test code = Sodium Lvl) 139 135-145 [facility]2021-08-17 14:58:00 Test Item Value Reference Range Interpretation Comments Potassium Lvl (test code = Potassium 5.0 3.5-5.1 Lvl) [facility]2021-08-17 14:58:00 Test Item Value Reference Range Interpretation Comments Chloride Lvl (test code = Chloride Lvl) 105 95-109 [place] 559311-08-17 14:58:00 Test Item Value Reference Range Interpretation Comments CO2 (test code = CO2) 25 24-32 [place] 559311-08-17 14:58:00 Test Item Value Reference Range Interpretation Comments Calcium Lvl (test code = Calcium Lvl) 9.2 8.5-10.5 [facility]2021-08-17 14:58:00 Test Item Value Reference Range Interpretation Comments Total Protein (test code = Total 7.6 6.4-8.4 Protein) [place] 559311-08-17 14:58:00 Test Item Value Reference Range Interpretation Comments Albumin Lvl (test code = Albumin Lvl) 3.3 3.5-5.0 [place] 559311-08-17 14:58:00 Test Item Value Reference Range Interpretation Comments ALT (test code = ALT) 14 See_Comment [Auto mated message] The system which ge nerated this result transmit kody reference range : <=65. The reference range was not used to interpr et this result as michell l/abnormal. [facility] [id number] 14:58:00 Test Item Value Reference Range Interpretation Comments AST (test code = AST) 11 See_Comment [Auto mated message] The system which ge nerated this result transmit kody reference range : <=37. The reference range was not used to interpr et this result as michell l/abnormal. [facility] [id number] 14:58:00 Test Item Value Reference Range Interpretation Comments Alk Phos (test code = Alk Phos) 143 39-136 [facility] [id number] 14:58:00 Test Item Value Reference Range Interpretation Comments Bili Total (test code = Bili Total) 0.2 0.2-1.3 [place] 559311-08-17 14:58:00 Test Item Value Reference Range Interpretation Comments AGAP (test code = AGAP) 14.0 10.0-20.0 [facility] [id number] 14:58:00 Test Item Value Reference Range Interpretation Comments B/C Ratio (test code = B/C Ratio) 17 1 6-25 [facility] [id number] 14:58:00 Test Item Value Reference Range Interpretation Comments Globulin (test code = Globulin) 4.3 2.7-4.2 [facility] [id number] 14:58:00 Test Item Value Reference Range Interpretation Comments A/G Ratio (test code = A/G Ratio) 0.8 1 0.7-1.6 [facility] [id number] 14:58:00 Test Item Value Reference Range Interpretation Comments eGFR (test code = eGFR) 64 [facility] [id number] 14:58:00 Test Item Value Reference Range Interpretation Comments Lactic Acid Lvl (test code = Lactic 1.4 0.5-2.2 Acid Lvl) [facility]FERJ0950-[facility]-12 14:58:00 Test Item Value Reference Range Interpretation Comments S Preg (test code = S Negative *NA*(01/02/21 Preg) 9:58 AM) [facility] [id number] 14:58:00 Test Item Value Reference Range Interpretation Comments WBC (test code = WBC) 8.5 3.7-10.4 [place] 765441-08-17 14:58:00 Test Item Value Reference Range Interpretation Comments RBC (test code = RBC) 4.63 4.20-5.40 [facility] [id number] 14:58:00 Test Item Value Reference Range Interpretation Comments Hgb (test code = Hgb) 12.1 12.0-16.0 [place] 765441-08-17 14:58:00 Test Item Value Reference Range Interpretation Comments Hct (test code = Hct) 37.0 36.0-48.0 [facility] [id number] 14:58:00 Test Item Value Reference Range Interpretation Comments MCV (test code = MCV) 79.9 80.0-98.0 [facility] KlebergSbdipwlWSRFUGFVPY2070-49-99 14:58:00 Test Item Value Reference Range Interpretation Comments MCH (test code = MCH) 26.1 pg 27.0-31.0 [facility] [id number] 14:58:00 Test Item Value Reference Range Interpretation Comments MCHC (test code = MCHC) 32.6 32.0-36.0 [facility] KlebergYecykdiOJGFZRNJCG9716-48-65 14:58:00 Test Item Value Reference Range Interpretation Comments RDW (test code = RDW) 16.0 11.5-14.5 [facility] KlebergGlpapgaFLRTDCNHKL4766-54-83 14:58:00 Test Item Value Reference Range Interpretation Comments Platelet (test code = Platelet) 276 133-450 [facility] KlebergVbnklggKWTGMGHQEV4966-17-33 14:58:00 Test Item Value Reference Range Interpretation Comments MPV (test code = MPV) 9.0 7.4-10.4 [facility] [id number] 14:58:00 Test Item Value Reference Range Interpretation Comments PT (test code = PT) 12.4 s 12.0-14.7 [facility] KlebergXpawzmyLUHXGKIAEE1361-46-73 14:58:00 Test Item Value Reference Range Interpretation Comments INR (test code = INR) 0.93 1 0.85-1.17 [place] 765441-08-17 14:58:00 Test Item Value Reference Range Interpretation Comments PTT (test code = PTT) 27.7 s 22.9-35.8 [place] 765441-08-17 14:58:00 Test Item Value Reference Range Interpretation Comments Segs (test code = Segs) 67.6 45.0-75.0 [place] 765441-08-17 14:58:00 Test Item Value Reference Range Interpretation Comments Lymphocytes (test code = Lymphocytes) 19.7 20.0-40.0 [place] 765441-08-17 14:58:00 Test Item Value Reference Range Interpretation Comments Monocytes (test code = Monocytes) 8.9 2.0-12.0 [facility] KlebergCkywbpeJMRMLIXKSP2235-09-13 14:58:00 Test Item Value Reference Range Interpretation Comments Eosinophils (test code = 2.9 See_Comment [A utomated message] The Eosinophils) system which ge nerated this result tra nsmitted reference range : <=4.0. The reference r belinda was not used to int erpret this result as normal/abnormal . [place] 765441-08-17 14:58:00 Test Item Value Reference Range Interpretation Comments Basophils (test code = 0.9 See_Comment [Aut omated message] The Basophils) system which ge nerated this result tra nsmitted reference range : <=1.0. The reference r belinda was not used to int erpret this result as normal/abnormal . [facility] KlebergTdjhoewAPHBYDYLRY5088-63-26 14:58:00 Test Item Value Reference Range Interpretation Comments Neutrophils # (test code = Neutrophils 5.7 1.5-8.1 #) [place] 765441-08-17 14:58:00 Test Item Value Reference Range Interpretation Comments Lymphocytes # (test code = Lymphocytes 1.7 1.0-5.5 #) [place] 765441-08-17 14:58:00 Test Item Value Reference Range Interpretation Comments Monocytes # (test code 0.8 See_Comment [Aut omated message] The = Monocytes #) system which generated this result tra nsmitted reference range : <=0.8. The reference r belinda was not used to int erpret this result as normal/abnormal . [facility] KlebergJwahifjFCGKOZFVFA0667-60-19 14:58:00 Test Item Value Reference Range Interpretation Comments Eosinophils # (test code 0.2 See_Comment [A utomated message] The = Eosinophils #) system whic h generated this result tra nsmitted reference range : <=0.5. The reference r belinda was not used to int erpret this result as normal/abnormal . [facility] KlebergKswryvgFJRFGUHYLS2334-14-65 14:58:00 Test Item Value Reference Range Interpretation Comments Basophils # (test code 0.1 See_Comment [Aut omated message] The = Basophils #) system which generated this result tra nsmitted reference range : <=0.2. The reference r belinda was not used to int erpret this result as normal/abnormal . [facility] AND [id number] 14:58:00 Test Item Value Reference Range Interpretation Comments UA Color (test code = Yellow *NA*(01/02/21 UA Color) 9:58 AM) [facility] AND [id number] 14:58:00 Test Item Value Reference Range Interpretation Comments UA Turbidity (test code = Clear (01/02/21 9:58 UA Turbidity) AM) [facility] AND [id number] 14:58:00 Test Item Value Reference Range Interpretation Comments UA Spec Grav (test code = UA Spec 1.025 1 Grav) [facility] AND [id number] 14:58:00 Test Item Value Reference Range Interpretation Comments UA pH (test code = UA pH) 5.5 1 5.0-8.0 [facility] AND [id number] 14:58:00 Test Item Value Reference Range Interpretation Comments UA Protein (test code = UA Negative mg/dL Protein) [facility] AND [id number] 14:58:00 Test Item Value Reference Range Interpretation Comments UA Glucose (test code = UA Negative mg/dL Glucose) [facility] AND [id number] 14:58:00 Test Item Value Reference Range Interpretation Comments UA Ketones (test code = UA Negative mg/dL Ketones) [facility] [id number] 14:58:00 Test Item Value Reference Range Interpretation Comments UA Bili (test code = Negative *NA*(01/02/21 UA Bili) 9:58 AM) [facility] [id number] 14:58:00 Test Item Value Reference Range Interpretation Comments UA Blood (test code = Negative (01/02/21 9:58 UA Blood) AM) [facility] AND [id number] 14:58:00 Test Item Value Reference Range Interpretation Comments UA Urobilinogen (test code = UA 0.2 0.1-1.0 Urobilinogen) [facility] [id number] 14:58:00 Test Item Value Reference Range Interpretation Comments UA Nitrite (test code Negative (01/02/21 9:58 = UA Nitrite) AM) [facility] AND [id number] 14:58:00 Test Item Value Reference Range Interpretation Comments UA Leuk Est (test Negative (01/02/21 9:58 code = UA Leuk Est) AM) [facility] [id number] 14:58:00 Test Item Value Reference Range Interpretation Comments UA Sq Epi (test code = UA Sq Moderate /LPF Epi) [facility] [id number] 14:58:00 Test Item Value Reference Range Interpretation Comments UA WBC (test code = UA WBC) 6-10 /HPF [facility] [id number] 14:58:00 Test Item Value Reference Range Interpretation Comments UA RBC (test code = UA RBC) 0-2 /HPF [facility] [id number] 14:58:00 Test Item Value Reference Range Interpretation Comments UA Bacteria (test code = UA Moderate /HPF Bacteria) [facility] [id number] 14:58:00 Test Item Value Reference Range Interpretation Comments UA Mucus (test code = UA Mucus) Few /LPF [facility] [id number] 14:58:00 Test Item Value Reference Range Interpretation Comments UA Hyal Cast (test code 0-2 (01/02/21 9:58 AM) = UA Hyal Cast) [facility] [id number] 13:08:00 Test Item Value Reference Range Interpretation Comments SODIUM (test code = NA) 139 mmol/l 134.0-147.0 N POTASSIUM (test code = K) 5.0 mmol/L 3.6-5.2 N CHLORIDE (test code = CL) 106 mmol/l 98.0-107.0 N CARBON DIOXIDE (test code = CO2) 25.8 mmol/l 21.0-33.0 N ANION GAP (test code = GAP) 12.2 0-20 N GLUCOSE (test code = GLU) 97 mg/dl 70.0-110.0 N BLOOD UREA NITROGEN (test code = 16 mg/dl 7.0-18.0 N BUN) CREATININE (test code = CREAT) 1.05 mg/dL 0.60-1.30 N GFR NON BLACK (test code = 60 mL/min 95-105 L GFRNONBLACK) GFR BLACK (test code = GFRBLACK) 73 mL/min 115-127 L CALCIUM (test code = CA) 8.8 mg/dl 8.0-10.5 N HEPATIC FUNCTION PANEL [id number] 13:08:00 Test Item Value Reference Range Interpretation Comments TOTAL PROTEIN (test code = PROT) 8.0 gm/dL 6.4-8.2 N ALBUMIN (test code = ALB) 3.4 gm/dl 3.2-4.7 N BILIRUBIN TOTAL (test code = 0.2 mg/dl 0.0-1.0 N BILT) BILIRUBIN DIRECT (test code = 0 mg/dl 0.0-0.3 N BILD) SGOT/AST (test code = AST) 15 Units/L 15-37 N SGPT/ALT (test code = ALT) 16 Units/L 12.0-78.0 N ALKALINE PHOSPHATASE TOTAL (test 134 Units/L 50.0-136.0 N code = ALKP) [id number] 13:08:00 Test Item Value Reference Range Interpretation Comments LIPASE (test code = LIP) 60 Units/L 65.0-230.0 L - CT ABD PELVIS [id number] 12:10:00 [facility] [place] : 1975 Sex: F FAX: Kobe Caldwell [place]: St: REG FAX: Evy Hay MD [phone] Name: LIANA ASHBY [facility] :1975 Age/S: 45/F [address] [facility] Unit: [id number] Loc: [address] Phys: Kobe Caldwell [facility] [address] Acct: [id number] Dis Date: Status: REG ER PHONE #: [phone] ExamDate: 01/01/2021 1145 FAX #: [phone] Reason: lower abd pain EXAMS: CPT CODE: [id number] CT ABD PELVIS W/CONT 72153 LOCATION: T18 EXAM: CT ABDOMEN AND PELVIS WITH CONTRAST INDICATION: lower abd pain, COMPARISON: None. TECHNIQUE: Multiple CT images of the abdomen and pelvis were obtained with reconstructions in the coronal and sagittal planes. 100 ml of Isovue 300 was given intravenously. Up-to-date CT equipment and radiation dose reduction techniques were utilized. Automatic exposure control was utilized. FINDINGS: There are tiny pulmonary nodules in the right upper lobe measuring up to 3 mm.There are at least 3 tiny right lower lobe pulmonary nodules. There are 2 left lower lobe pulmonary nodules that measure up to 2.5 mm. Liver and spleen are normal in appearance. Adrenal glands and pancreas normal. Gallbladder removed. No biliary distention. Portal vasculature is patent. Kidneys enhance symmetrically. Multiple areas of cortical thinning involving the mid and lower pole the left kidney. No hydronephrosis or hydroureter. Urinary bladder is normal. Uterus and adnexal structures are age-appropriate in appearance. Postop changes of the stomach present without complication. No hernia identified. There is postop changes in the right midabdomen involving the colon. No bowel obstruction is seen. No free air or free fluid is present. Abdominal aorta is normal in caliber. IVC is normal. Bones are intact. Peripheral soft tissues are unremarkable. IMPRESSION: 1. Tiny bilateral pulmonary nodules of the lower lobes measuring up to 3 mm. 2. Postop changes of the stomach and transverse colon. No bowel complication. 3. Appendix is normal. No bowel obstruction. PAGE 1 Signed Report (CONTINUED) FAX: Kobe Caldwell [place]: St: REG FAX: Evy Hay MD [phone] Name: LIANA ASHBY [facility] : 1975 Age/S: 45/F [address] [facility] Unit: [id number] Loc: [address] Phys: Kobe Caldwell [address] Acct: [id number] Dis Date: Status: REG ER PHONE #: [phone] Exam Date: 01/01/2021 1145 FAX #: [phone] Reason: lower abd pain EXAMS: CPT CODE: [id number] CT ABD PELVIS W/CONT 88288 <Continued> at 1210 Reported and signed by: Paulo Duarte M.D. CC: Kobe Caldwell; Evy Hay MD Technologist: HIEN WEBBER; Hien De Leon [facility] Dt/Tm: 01/01/2021 (9840) [id number] Orig Print D/T: S: 01/01/2021 (1213 PAGE 2 Signed ReportBASIC METABOLIC [id number] 12:07:00 Test Item Value Reference Range Interpretation Comments SODIUM (test code = NA) 139 mmol/l 134.0-147.0 N POTASSIUM (test code = K) 5.0 mmol/L 3.6-5.2 N CHLORIDE (test code = CL) 106 mmol/l 98.0-107.0 N CARBON DIOXIDE (test code = CO2) 25.8 mmol/l 21.0-33.0 N ANION GAP (test code = GAP) 12.2 0-20 N GLUCOSE (test code = GLU) 97 mg/dl 70.0-110.0 N BLOOD UREA NITROGEN (test code = 16 mg/dl 7.0-18.0 N BUN) CREATININE (test code = CREAT) 1.05 mg/dL 0.60-1.30 N GFR NON BLACK (test code = 60 mL/min 95-105 L GFRNONBLACK) GFR BLACK (test code = GFRBLACK) 73 mL/min 115-127 L CALCIUM (test code = CA) 8.8 mg/dl 8.0-10.5 N HEPATIC FUNCTION PANEL [id number] 12:07:00 Test Item Value Reference Range Interpretation Comments TOTAL PROTEIN (test code = PROT) 8.0 gm/dL 6.4-8.2 N ALBUMIN (test code = ALB) 3.4 gm/dl 3.2-4.7 N BILIRUBIN TOTAL (test code = 0.2 mg/dl 0.0-1.0 N BILT) BILIRUBIN DIRECT (test code = mg/dl 0.0-0.3 BILD) SGOT/AST (test code = AST) 15 Units/L 15-37 N SGPT/ALT (test code = ALT) 16 Units/L 12.0-78.0 N ALKALINE PHOSPHATASE TOTAL (test 134 Units/L 50.0-136.0 N code = ALKP) [id number] 12:07:00 Test Item Value Reference Range Interpretation Comments LIPASE (test code = LIP) 60 Units/L 65.0-230.0 L CBC W/AUTO [id number] 11:39:00 Test Item Value Reference Range Interpretation Comments WHITE BLOOD CELL (test code = 8.8 K/mm3 4.5-11.0 N WBC) RED BLOOD CELL (test code = 4.62 M/mm3 3.80-5.20 N RBC) HEMOGLOBIN (test code = HGB) 11.8 gm/dL 12.0-16.0 L HEMATOCRIT (test code = HCT) 39.6 % 36.0-48.0 N MEAN CELL VOLUME (test code = 85.7 UM3 82.0-99.0 N MCV) MEAN CELL HGB (test code = MCH) 25.5 UUG 25.5-32.5 N MEAN CELL HGB CONCETRATION 29.8 gm/dL 29.0-35.5 N (test code = MCHC) RED CELL DISTRIBUTION WIDTH 14.6 % 11.5-15.0 N (test code = RDW) RED CELL DISTRIBUTION WIDTH SD 45.6 fL 34.8-50.2 N (test code = RDW-SD) PLATELET COUNT (test code = 314 K/mm3 150-400 N PLT) MEAN PLATELET VOLUME (test code 11.2 fl 7.4-10.4 H = MPV) NEUTROPHIL % (test code = NT%) 70.7 % 49.0-76.0 N IMMATURE GRANULOCYTE % (test 0.2 % 0.0-0.4 N code = IG%) LYMPHOCYTE % (test code = LY%) 18.3 % 23.0-38.0 L MONOCYTE % (test code = MO%) 7.1 % 1.0-10.0 N EOSINOPHIL % (test code = EO%) 3.4 % 1.0-5.0 N BASOPHIL % (test code = BA%) 0.3 % 0.0-1.0 N NUCLEATED RBC % (test code = 0.0 % 0.0-0.1 N NRBC%) NEUTROPHIL # (test code = NT#) 6.2 K/mm3 2.4-6.3 N IMMATURE GRANULOCYTE # (test 0.02 x10 3/uL 0.00-0.07 N code = IG#) LYMPHOCYTE # (test code = LY#) 1.6 K/mm3 1.2-4.0 N MONOCYTE # (test code = MO#) 0.6 K/mm3 0.0-0.6 N EOSINOPHIL # (test code = EO#) 0.3 K/MM3 0.0-0.7 N BASOPHIL # (test code = BA#) 0.0 K/mm3 0.0-0.2 N NUCLEATED RBC # (test code = 0.00 X10 3uL 0.00-0.01 N NRBC#) URINALYSIS [id number] 10:57:00 Test Item Value Reference Range Interpretation Comments UA COLOR (test code = COLU) YELLOW UA APPEARANCE (test code = CLEAR APPU) UA GLUCOSE DIPSTICK (test NORMAL mg/dl NORMAL code = DGLUU) UA BILIRUBIN DIPSTICK (test NEGATIVE mg/dL NEGATIVE code = BILU) UA KETONE DIPSTICK (test NEGATIVE mg/dl NEGATIVE code = KETU) UA SPECIFIC GRAVITY (test 1.010 1.000-1.030 code = SGU) UA BLOOD DIPSTICK (test NEGATIVE Jorge Alberto/micL NEGATIVE code = WINSTON) UA PH DIPSTICK (test code = 6.0 5.0-9.0 FOSTER) UA PROTEIN DIPSTICK (test NEGATIVE mg/dl NEGATIVE code = PROU) UA UROBILINIOGEN DIPSTICK NORMAL mg/dl NORMAL (test code = URO) UA NITRITE DIPSTICK (test NEGATIVE NEGATIVE code = SU) UA LEUKOCYTE ESTERASE NEGATIVE Debi/micL NEGATIVE DIPSTICK (test code = LEUU) UA WBC (test code = WBCU) 0-3 WBC/HPF NONE UA RBC (test code = RBCU) 0-2 RBC/HPF 0-3 UA EPITHELIAL CELLS (test 2-5 EPI/HPF 0-3 A code = EPIU) UA BACTERIA (test code = MOD NONE BACU) UR HCG [id number] 10:57:00 Test Item Value Reference Range Interpretation Comments UR HCG QUAL (test code = HCGQLU) NEGATIVE NEGATIVE URINALYSIS [id number] 10:54:00 Test Item Value Reference Range Interpretation Comments UA COLOR (test code = COLU) YELLOW UA APPEARANCE (test code = CLEAR APPU) UA GLUCOSE DIPSTICK (test NORMAL mg/dl NORMAL code = DGLUU) UA BILIRUBIN DIPSTICK (test NEGATIVE mg/dL NEGATIVE code = BILU) UA KETONE DIPSTICK (test NEGATIVE mg/dl NEGATIVE code = KETU) UA SPECIFIC GRAVITY (test 1.010 1.000-1.030 code = SGU) UA BLOOD DIPSTICK (test NEGATIVE Jorge Alberto/micL NEGATIVE code = WINSTON) UA PH DIPSTICK (test code = 6.0 5.0-9.0 FOSTER) UA PROTEIN DIPSTICK (test NEGATIVE mg/dl NEGATIVE code = PROU) UA UROBILINIOGEN DIPSTICK NORMAL mg/dl NORMAL (test code = URO) UA NITRITE DIPSTICK (test NEGATIVE NEGATIVE code = SU) UA LEUKOCYTE ESTERASE NEGATIVE Debi/micL NEGATIVE DIPSTICK (test code = LEUU) UA WBC (test code = WBCU) WBC/HPF NONE UA RBC (test code = RBCU) RBC/HPF 0-3 UA EPITHELIAL CELLS (test EPI/HPF 0-3 code = EPIU) UA BACTERIA (test code = NONE BACU) UR HCG [id number] 10:54:00 Test Item Value Reference Range Interpretation Comments UR HCG QUAL (test code = HCGQLU) NEGATIVE NEGATIVE URINALYSIS [id number] 10:52:00 Test Item Value Reference Range Interpretation Comments UA COLOR (test code = COLU) UA APPEARANCE (test code = APPU) UA GLUCOSE DIPSTICK (test code = mg/dl NORMAL DGLUU) UA BILIRUBIN DIPSTICK (test code = mg/dL NEGATIVE BILU) UA KETONE DIPSTICK (test code = mg/dl NEGATIVE KETU) UA SPECIFIC GRAVITY (test code = 1.000-1.030 SGU) UA BLOOD DIPSTICK (test code = WINSTON) Jorge Alberto/micL NEGATIVE UA PH DIPSTICK (test code = FOSTER) 5.0-9.0 UA PROTEIN DIPSTICK (test code = mg/dl NEGATIVE PROU) UA UROBILINIOGEN DIPSTICK (test mg/dl NORMAL code = URO) UA NITRITE DIPSTICK (test code = NEGATIVE SU) UA LEUKOCYTE ESTERASE DIPSTICK Debi/micL NEGATIVE (test code = LEUU) UA WBC (test code = WBCU) WBC/HPF NONE UA RBC (test code = RBCU) RBC/HPF 0-3 UA EPITHELIAL CELLS (test code = EPI/HPF 0-3 EPIU) UA BACTERIA (test code = BACU) NONE UR HCG [id number] 10:52:00 Test Item Value Reference Range Interpretation Comments UR HCG QUAL (test code = HCGQLU) NEGATIVE NEGATIVE ETHYLENE [id number] 09:22:00 Test Item Value Reference Range Interpretation Comments ETHYLENE GLYCOL <5 mg/dL None detected Detection Limit = 5 This (test code = test was laneo ped and its ETHGLY) performance characteristics determined by [facility]. It has not been cleared or approved by the Food and Drug Administration. Performed At: [facility] [id number] ra Julian PIERRE Ph:[phone] BASIC METABOLIC [id number] 07:51:00 Test Item Value Reference Range Interpretation Comments SODIUM (test code = NA) 146 mmol/l 134.0-147.0 N POTASSIUM (test code = K) 3.7 mmol/L 3.6-5.2 N CHLORIDE (test code = CL) 111 mmol/l 98.0-107.0 H CARBON DIOXIDE (test code = CO2) 24.8 mmol/l 21.0-33.0 N ANION GAP (test code = GAP) 13.9 0-20 N GLUCOSE (test code = GLU) 102 mg/dl 70.0-110.0 N BLOOD UREA NITROGEN (test code = 16 mg/dl 7.0-18.0 N BUN) CREATININE (test code = CREAT) 0.83 mg/dL 0.60-1.30 N GFR NON BLACK (test code = 79 mL/min 95-105 L GFRNONBLACK) GFR BLACK (test code = GFRBLACK) 96 mL/min 115-127 L CALCIUM (test code = CA) 8.2 mg/dl 8.0-10.5 N CBC W/AUTO [id number] 07:48:00 Test Item Value Reference Range Interpretation Comments WHITE BLOOD CELL (test code = 7.6 K/mm3 4.5-11.0 N WBC) RED BLOOD CELL (test code = 3.10 M/mm3 3.80-5.20 L RBC) HEMOGLOBIN (test code = HGB) 8.6 gm/dL 12.0-16.0 L HEMATOCRIT (test code = HCT) 28.8 % 36.0-48.0 L MEAN CELL VOLUME (test code = 92.9 UM3 82.0-99.0 N MCV) MEAN CELL HGB (test code = MCH) 27.7 UUG 25.5-32.5 N MEAN CELL HGB CONCETRATION 29.9 gm/dL 29.0-35.5 N (test code = MCHC) RED CELL DISTRIBUTION WIDTH 16.7 % 11.5-15.0 H (test code = RDW) RED CELL DISTRIBUTION WIDTH SD 56.7 fL 34.8-50.2 H (test code = RDW-SD) PLATELET COUNT (test code = 221 K/mm3 150-400 N PLT) MEAN PLATELET VOLUME (test code 10.5 fl 7.4-10.4 H = MPV) NEUTROPHIL % (test code = NT%) 70.9 % 49.0-76.0 N IMMATURE GRANULOCYTE % (test 0.4 % 0.0-0.4 N code = IG%) LYMPHOCYTE % (test code = LY%) 17.4 % 23.0-38.0 L MONOCYTE % (test code = MO%) 8.8 % 1.0-10.0 N EOSINOPHIL % (test code = EO%) 2.2 % 1.0-5.0 N BASOPHIL % (test code = BA%) 0.3 % 0.0-1.0 N NUCLEATED RBC % (test code = 0.0 % 0.0-0.1 N NRBC%) NEUTROPHIL # (test code = NT#) 5.4 K/mm3 2.4-6.3 N IMMATURE GRANULOCYTE # (test 0.03 x10 3/uL 0.00-0.07 N code = IG#) LYMPHOCYTE # (test code = LY#) 1.3 K/mm3 1.2-4.0 N MONOCYTE # (test code = MO#) 0.7 K/mm3 0.0-0.6 H EOSINOPHIL # (test code = EO#) 0.2 K/MM3 0.0-0.7 N BASOPHIL # (test code = BA#) 0.0 K/mm3 0.0-0.2 N NUCLEATED RBC # (test code = 0.00 X10 3uL 0.00-0.01 N NRBC#) - RETRO [id number] 16:27:00 [facility] [place]: L[place]NA A[place] : 1975 Sex: F FAX: Zarina Vidal MD [phone] [place]: St: [facility] FAX: Crescencio Aly [phone] ----- Name: LIANA ASHBY [facility] : 1975 Age/S: 45/F [address] [facility] Unit #: [id number] Loc: [address] Phys: [place] [address] Acct: [id number] Dis Date: Status: ADM IN PHONE #: [phone] Exam Date: 10/24/2020 1615 FAX #: [phone] Reason: JASMYN EXAMS: CPT CODE: [id number] US RETRO LTD [address]5987 ULTRASOUND: - US RETRO LTD History: Acute kidney injury Comparison: Previous CT from August 13, 2020. B-mode/Gaviria scale imaging with color Doppler perfusion imaging and spectral analysis was performed. The right kidney is 10 x 4.5 x 4.6 cm with homogeneous echogenicity pattern and uniform cortical thickness. Normal perfusion pattern. No obstruction found. The left kidney at 10 x 4.1x 4.1 cm also homogeneous in its echogenicity with good perfusion. Cortical thickness also maintained. No shadowing stones or obstruction. A Sexton catheter suggested in place with the bladder completely empty. No ascites found. Impression: Renal appearance intact with no obstruction. Bladder empty, containing a Sexton catheter by history. Location: U 19 at 1627 Reported and signed by: Mac Sue MD CC: Zarina Gould MD; Neema Jimenez MD Technologist: FROYLAN LOW Trnscrd Date/Time/By: 10/24/2020 (5501) : By: [email or web address] PAGE 1 Signed Report FAX: Zarina Vidal MD [phone] [place]: St: ADM FAX: Crescencio Aly [phone] Name: LIANA ASHBY [facility] : 1975 Age/S: 45/F [address] [facility] Unit #: [id number] Loc: [address] Phys: [place] [address] Acct: [id number] DisDate: Status: ADM IN PHONE #: [phone] Exam Date: 10/24/20201614 FAX #: [phone] Reason: JASMYN EXAMS: CPT CODE: [id number] [facility] LTD [address] <Continued> Orig Print D/T: S: 10/24/2020 (5993) PAGE 2 Signed ReportBASIC METABOLIC [id number] 09:08:00 Test Item Value Reference Range Interpretation Comments SODIUM (test code = NA) 143 mmol/l 134.0-147.0 N POTASSIUM (test code = K) 4.5 mmol/L 3.6-5.2 N CHLORIDE (test code = CL) 107 mmol/l 98.0-107.0 N CARBON DIOXIDE (test code = CO2) 27.2 mmol/l 21.0-33.0 N ANION GAP (test code = GAP) 13.3 0-20 N GLUCOSE (test code = GLU) 106 mg/dl 70.0-110.0 N BLOOD UREA NITROGEN (test code = 29 mg/dl 7.0-18.0 H BUN) CREATININE (test code = CREAT) 1.05 mg/dL 0.60-1.30 N GFR NON BLACK (test code = 60 mL/min 95-105 L GFRNONBLACK) GFR BLACK (test code = GFRBLACK) 73 mL/min 115-127 L CALCIUM (test code = CA) 8.3 mg/dl 8.0-10.5 N CBC W/AUTO [id number] 09:04:00 Test Item Value Reference Range Interpretation Comments WHITE BLOOD CELL (test code = 11.0 K/mm3 4.5-11.0 N WBC) RED BLOOD CELL (test code = 3.29 M/mm3 3.80-5.20 L RBC) HEMOGLOBIN (test code = HGB) 9.2 gm/dL 12.0-16.0 L HEMATOCRIT (test code = HCT) 30.0 % 36.0-48.0 L MEAN CELL VOLUME (test code = 91.2 UM3 82.0-99.0 N MCV) MEAN CELL HGB (test code = MCH) 28.0 UUG 25.5-32.5 N MEAN CELL HGB CONCETRATION 30.7 gm/dL 29.0-35.5 N (test code = MCHC) RED CELL DISTRIBUTION WIDTH 17.0 % 11.5-15.0 H (test code = RDW) RED CELL DISTRIBUTION WIDTH SD 56.4 fL 34.8-50.2 H (test code = RDW-SD) PLATELET COUNT (test code = 238 K/mm3 150-400 N PLT) MEAN PLATELET VOLUME (test code 11.4 fl 7.4-10.4 H = MPV) NEUTROPHIL % (test code = NT%) 78.7 % 49.0-76.0 H IMMATURE GRANULOCYTE % (test 0.4 % 0.0-0.4 N code = IG%) LYMPHOCYTE % (test code = LY%) 8.1 % 23.0-38.0 L MONOCYTE % (test code = MO%) 12.1 % 1.0-10.0 H EOSINOPHIL % (test code = EO%) 0.5 % 1.0-5.0 L BASOPHIL % (test code = BA%) 0.2 % 0.0-1.0 N NUCLEATED RBC % (test code = 0.0 % 0.0-0.1 N NRBC%) NEUTROPHIL # (test code = NT#) 8.7 K/mm3 2.4-6.3 H IMMATURE GRANULOCYTE # (test 0.04 x10 3/uL 0.00-0.07 N code = IG#) LYMPHOCYTE # (test code = LY#) 0.9 K/mm3 1.2-4.0 L MONOCYTE # (test code = MO#) 1.3 K/mm3 0.0-0.6 H EOSINOPHIL # (test code = EO#) 0.1 K/MM3 0.0-0.7 N BASOPHIL # (test code = BA#) 0.0 K/mm3 0.0-0.2 N NUCLEATED RBC # (test code = 0.00 X10 3uL 0.00-0.01 N NRBC#) ACUTE HEPATITIS [id number] 08:00:00 Test Item Value Reference Range Interpretation Comments AB HEPATITIS A IGM NON REACTIVE NONREACTIVE Testing d one at (test code = INDEX CLEAR EDEN HITESH ONAL HAVMAB) [facility] [address] [place] [phone] AB HEPATITIS B <3.1 mIU/mL See_Comment A Status of Im [facility] SURFACE (test code Anti-HBs Level = HBSAB) --- I ncon sistent with Immunity 0.0 - 9.9Consistent w ith Immunity >9.9TE ST PERFORMED AT [address] [address] [Automated mess age] The system [employer] generated this result transmit kody reference range : Immunity>9.9. T he reference range was not used to interpret this result as normal/abnormal . AG HEPATITIS B NON REACTIVE NONREACTIVE Testing done at SURFACE (test code INDEX CLEAR [place] [facility] = HBSAG) [facility] [address] [place] [address] AB HEPATITIS B NON REACTIVE NON REACT. Testing done at CORE IGM (test INDEX CLEAR EDEN RE GIONAL code = HBCMAB) [facility] [address] [place] [address], [place] [address] AB HEPATITIS C NON REACTIVE NONREACTIVE Testing done at (test code = INDEX CLEAR EDEN HITESH ONAL HCVAB) [facility] [address] [place] [address] [id number] B [id number] 08:00:00 Test Item Value Reference Range Interpretation Comments AB HEPATITIS B CORE Negative Negative Performe d At: HD (test code = HBCAB) [facility] [address] [place], [place] [id number] erica Newman MD Ph:[phone] [id number] 20:40:00 Test Item Value Reference Range Interpretation Comments GLUBED (test code = GLUBED) 47 mg/dL 70-110 LL [id number] 20:40:00 Test Item Value Reference Range Interpretation Comments GLUBED (test code = GLUBED) 133 mg/dL 70-110 H DRUGS OF ABUSE SCREEN [id number] 20:39:00 Test Item Value Reference Interpretation Comments Range URN COCAINE (test NEGATIVE NEGATIVE Cocaine cu t-off code = COCAURN) concentratio n: 300 ng/mL URN CANNABINOIDS NEGATIVE NEGATIVE Cannabinoid s cut-off (test code = concentration: 50 ng/mL CANNABURN) URN AMPHETAMINE NEGATIVE NEGATIVE Amphetamine cut-off (test code = concentration: 1000 ng/mL AMPHETURN) URN BARBITURATE POSITIVE NEGATIVE A UNCONFIRMED INITIAL (test code = SCREENING ONLY; SUGGEST BARBITURN) ADDITIONALCONFI RMATORY TESTING.Barbitu rate cut-off concentration: 200 ng/mL URN BENZODIAZEPINE NEGATIVE NEGATIVE Benzodiaz epine cut-off (test code = concentration: 200 ng/mL BENZOURN) URN OPIATES (test POSITIVE NEGATIVE A UNCONFIRME D INITIAL code = OPIATURN) SCREENING O NLY; SUGGEST ADDITIONALCONFI RMATORY TESTING.Opiates cut-off concentration: 2000 ng/mL URN PHENCYCLIDINE NEGATIVE NEGATIVE Phencyclid ine(PCP) cut-off (PCP) (test code = concentra tion: 25 ng/ml PHENCURN) URN METHADONE (test NEGATIVE NEGATIVE Methadon e cut-off code = [place]) concentrati on: 300 ng/mL BASIC METABOLIC [id number] 20:37:00 Test Item Value Reference Range Interpretation Comments SODIUM (test code = NA) 141 mmol/l 134.0-147.0 N POTASSIUM (test code = K) 4.4 mmol/L 3.6-5.2 N CHLORIDE (test code = CL) 104 mmol/l 98.0-107.0 N CARBON DIOXIDE (test code = CO2) 31.3 mmol/l 21.0-33.0 N ANION GAP (test code = GAP) 10.1 0-20 N GLUCOSE (test code = GLU) 106 mg/dl 70.0-110.0 N BLOOD UREA NITROGEN (test code = 38 mg/dl 7.0-18.0 H BUN) CREATININE (test code = CREAT) 2.28 mg/dL 0.60-1.30 H GFR NON BLACK (test code = 25 mL/min 95-105 L GFRNONBLACK) GFR BLACK (test code = GFRBLACK) 30 mL/min 115-127 L CALCIUM (test code = CA) 8.7 mg/dl 8.0-10.5 N URINALYSIS [id number] 20:36:00 Test Item Value Reference Range Interpretation Comments UA COLOR (test code = BROWN COLU) UA APPEARANCE (test code CLDY = APPU) UA GLUCOSE DIPSTICK (test NORMAL mg/dl NORMAL code = DGLUU) UA BILIRUBIN DIPSTICK 1 mg/dL mg/dL NEGATIVE A (test code = BILU) UA KETONE DIPSTICK (test 15 mg/dl mg/dl NEGATIVE A code = KETU) UA SPECIFIC GRAVITY (test 1.020 1.000-1.030 code = SGU) UA BLOOD DIPSTICK (test 250 Jorge Alberto/micL NEGATIVE A code = [place]) Jorge Alberto/micL UA PH DIPSTICK (test code 5.0 5.0-9.0 = FOSTER) UA PROTEIN DIPSTICK (test 100 mg/dl NEGATIVE A code = PROU) UA UROBILINIOGEN DIPSTICK 1.0 mg/dl mg/dl NORMAL A (test code = URO) UA NITRITE DIPSTICK (test POSITIVE NEGATIVE A code = SU) UA LEUKOCYTE ESTERASE 500 Debi/micL NEGATIVE A DIPSTICK (test code = Debi/micL LEUU) UA WBC (test code = WBCU) TNTC WBC/HPF NONE A UA RBC (test code = RBCU) 5-10 RBC/HPF 0-3 A UA EPITHELIAL CELLS (test 1-3 EPI/HPF 0-3 code = EPIU) UA BACTERIA (test code = TNTC NONE A BACU) UA COARSE GRANULAR CAST 0-1 /LPF NEGATIVE (test code = CGU) Indication for culture: RiskForSepsis-no oth srcSpecimen Description: CLEAN CATCHURINALYSIS [id number] 20:33:00 Test Item Value Reference Range Interpretation Comments UA COLOR (test code = BROWN COLU) UA APPEARANCE (test code CLDY = APPU) UA GLUCOSE DIPSTICK (test NORMAL mg/dl NORMAL code = DGLUU) UA BILIRUBIN DIPSTICK 1 mg/dL mg/dL NEGATIVE A (test code = BILU) UA KETONE DIPSTICK (test 15 mg/dl mg/dl NEGATIVE A code = KETU) UA SPECIFIC GRAVITY (test 1.020 1.000-1.030 code = SGU) UA BLOOD DIPSTICK (test 250 Jorge Alberto/micL NEGATIVE A code = WINST[place]) Jorge Alberto/micL UA PH DIPSTICK (test code 5.0 5.0-9.0 = FOSTER) UA PROTEIN DIPSTICK (test 100 mg/dl NEGATIVE A code = PROU) UA UROBILINIOGEN DIPSTICK 1.0 mg/dl mg/dl NORMAL A (test code = URO) UA NITRITE DIPSTICK (test POSITIVE NEGATIVE A code = SU) UA LEUKOCYTE ESTERASE 500 Debi/micL NEGATIVE A DIPSTICK (test code = Debi/micL LEUU) UA WBC (test code = WBCU) WBC/HPF NONE UA RBC (test code = RBCU) RBC/HPF 0-3 UA EPITHELIAL CELLS (test EPI/HPF 0-3 code = EPIU) UA BACTERIA (test code = NONE BACU) Indication for culture: RiskForSepsis-no oth srcSpecimen Description: CLEAN CATCHCBC W/AUTO [id number] 20:30:00 Test Item Value Reference Range Interpretation Comments WHITE BLOOD CELL (test code = 9.4 K/mm3 4.5-11.0 N WBC) RED BLOOD CELL (test code = 3.51 M/mm3 3.80-5.20 L RBC) HEMOGLOBIN (test code = HGB) 9.6 gm/dL 12.0-16.0 L HEMATOCRIT (test code = HCT) 31.5 % 36.0-48.0 L MEAN CELL VOLUME (test code = 89.7 UM3 82.0-99.0 MCV) MEAN CELL HGB (test code = MCH) 27.4 UUG 25.5-32.5 N MEAN CELL HGB CONCETRATION 30.5 gm/dL 29.0-35.5 N (test code = MCHC) RED CELL DISTRIBUTION WIDTH 17.1 % 11.5-15.0 H (test code = RDW) RED CELL DISTRIBUTION WIDTH SD 55.2 fL 34.8-50.2 H (test code = RDW-SD) PLATELET COUNT (test code = 241 K/mm3 150-400 N PLT) MEAN PLATELET VOLUME (test code 11.5 fl 7.4-10.4 H = MPV) NEUTROPHIL % (test code = NT%) 82.9 % 49.0-76.0 H IMMATURE GRANULOCYTE % (test 0.4 % 0.0-0.4 N code = IG%) LYMPHOCYTE % (test code = LY%) 6.1 % 23.0-38.0 L MONOCYTE % (test code = MO%) 10.1 % 1.0-10.0 H EOSINOPHIL % (test code = EO%) 0.4 % 1.0-5.0 L BASOPHIL % (test code = BA%) 0.1 % 0.0-1.0 N NUCLEATED RBC % (test code = 0.0 % 0.0-0.1 N NRBC%) NEUTROPHIL # (test code = NT#) 7.8 K/mm3 2.4-6.3 H IMMATURE GRANULOCYTE # (test 0.04 x10 3/uL 0.00-0.07 N code = IG#) LYMPHOCYTE # (test code = LY#) 0.6 K/mm3 1.2-4.0 L MONOCYTE # (test code = MO#) 0.9 K/mm3 0.0-0.6 H EOSINOPHIL # (test code = EO#) 0.0 K/MM3 0.0-0.7 N BASOPHIL # (test code = BA#) 0.0 K/mm3 0.0-0.2 N NUCLEATED RBC # (test code = 0.00 X10 3uL 0.00-0.01 N NRBC#) BASIC METABOLIC [id number] 15:58:00 Test Item Value Reference Range Interpretation Comments SODIUM (test code = NA) 141 mmol/l 134.0-147.0 N POTASSIUM (test code = K) 4.4 mmol/L 3.6-5.2 N CHLORIDE (test code = CL) 103 mmol/l 98.0-107.0 N CARBON DIOXIDE (test code = CO2) 28.3 mmol/l 21.0-33.0 N ANION GAP (test code = GAP) 14.1 0-20 N GLUCOSE (test code = GLU) 104 mg/dl 70.0-110.0 N BLOOD UREA NITROGEN (test code = 40 mg/dl 7.0-18.0 H BUN) CREATININE (test code = CREAT) 2.94 mg/dL 0.60-1.30 H GFR NON BLACK (test code = 18 mL/min 95-105 L GFRNONBLACK) GFR BLACK (test code = GFRBLACK) 22 mL/min 115-127 L CALCIUM (test code = CA) 8.8 mg/dl 8.0-10.5 N [id number] 12:38:00 Test Item Value Reference Range Interpretation Comments GLUBED (test code = GLUBED) 82 mg/dL 70-110 N AB HEPATITIS A [id number] 11:47:00 Test Item Value Reference Range Interpretation Comments AB HEPATITIS A IGM (test NON REACTIVE INDEX NON REACT. code = HAVMAB) AG HEPATITIS B [id number] 11:47:00 Test Item Value Reference Range Interpretation Comments AG HEPATITIS B SURFACE NON REACTIVE INDEX NonReactive (test code = HBSAG) AB HEPATITIS B CORE [id number] 11:47:00 Test Item Value Reference Range Interpretation Comments AB HEPATITIS B CORE IGM NON REACTIVE INDEX NON REACT. (test code = HBCMAB) AB HEPATITIS [id number] 11:47:00 Test Item Value Reference Range Interpretation Comments AB HEPATITIS C (test code NON REACTIVE INDEX NON REACT. = HCVAB) ACUTE HEPATITIS [id number] 11:47:00 Test Item Value Reference Range Interpretation Comments AB HEPATITIS A IGM NON REACTIVE NON REACT. Testing d one at (test code = INDEX CLEAR [place] HITESH ONAL HAVMAB) [facility] [address] [place] [address] [id number] [phone] AB HEPATITIS B mIU/mL See_Comment [Automated SURFACE (test code message] The system = HBSAB) which generated this result transmitted reference range : Immune >9.9. Th e reference range was not used to interpret this result as normal/abnormal . AG HEPATITIS B NON REACTIVE NonReactive Testing done at SURFACE (test code INDEX [facility] [place] [facility] = HBSAG) [facility] [address] [place] [address] 627[address] AB HEPATITIS B NON REACTIVE NON REACT. Testing done at CORE IGM (test INDEX [facility] [place] RE [facility]ION[facility] code = HBCMAB) [facility] [address] [place] [address] 94648 AB HEPATITIS C NON REACTIVE NON REACT. Testing done at (test code = INDEX CLEAR [place] HITESH ONAL HCVAB) [facility] [address] [place] [address] 32062 AB HEPATITIS B [id number] 11:47:00 Test Item Value Reference Range Interpretation Comments AB HEPATITIS B CORE (test code = HBCAB) NON REACT. [id number] 10:15:00 Test Item Value Reference Range Interpretation Comments GLUBED (test code = GLUBED) 105 mg/dL 70-110 N [id number] 08:07:00 Test Item Value Reference Range Interpretation Comments GLUBED (test code = GLUBED) 88 mg/dL 70-110 N [id number] 08:07:00 Test Item Value Reference Range Interpretation Comments GLUBED (test code = GLUBED) 52 mg/dL 70-110 L - XR CHEST 1 [id number] 07:47:00 [facility] [place] : 1975 Sex: F FAX: Zarina Vidal MD [phone] [place]: St: [facility] FAX: Crescencio Aly [phone] ----- Name: LIANA ASHBY [facility] : 1975 Age/S: 45/F [address] [facility] Unit #: [id number] Loc: [place], [place]: [place] [address] Acct: [id number] Dis Date: Status: ADM IN PHONE #:[phone] Exam Date: 10/23/2020729 FAX #: [phone] Reason: LINE PLACEMENT EXAMS: CPT CODE:[id number] XR CHEST 1 V 31066 HISTORY: Line placement Location: C3 COMPARISON:10/22/2020 FINDINGS: Right IJ catheter is present with tip overlying the distal SVC. No pneumothorax. There is cardiomegaly with vascular prominence and perihilar opacity most compatible with edema. IMPRESSION: 1. Interval irina cement of right IJ approach dialysis catheter. 2. Findings of CHF/volume overload. ElectronicallySigned by Jeovanny Cantu on 10/23/2020 at 0747 Reported and signed by: Mac Cantu M.D. CC: Zarina Gould MD; Neema Jimenez MD Technologist: VARGHESE NUNEZ Trnscrd Date/Time/By: 10/23/2020 (3442) : By: [email or web address] PAGE 1 Signed Report FAX: Zarina Vidal MD [phone] [place]: St: [facility] FAX: Crescencio Aly [phone] Name: LIANA ASHBY [facility] : 1975 Age/S: 45/F [address] [facility] Unit #: [id number] Loc: [place], [place]: [place] [address] Acct: [id number] Dis Date: Status: ADM IN PHONE #: [phone] Exam Date: 10/23/2020729 FAX #: [phone] Reason: LINE PLACEMENT EXAMS: CPT CODE: [id number] XR CHEST 1 V 43564 <Continued> Orig Print D/T: S: 10/23/2020 (0750) PAGE 2 Signed ReportBASIC METABOLIC PANEL 2020-10-23 05:05:00 Test Item Value Reference Range Interpretation Comments SODIUM (test code = 138 mmol/l 134.0-147.0 N NA) POTASSIUM (test code = 7.8 mmol/L 3.6-5.2 HH IS SA MPLE HEMOLYSED? K) NO CHLORIDE (test code = 105 mmol/l 98.0-107.0 N CL) CARBON DIOXIDE (test 19.6 mmol/l 21.0-33.0 L code = CO2) ANION GAP (test code = 22.1 0-20 H GAP) GLUCOSE (test code = 94 mg/dl 70.0-110.0 N GLU) BLOOD UREA NITROGEN 79 mg/dl 7.0-18.0 H (test code = BUN) CREATININE (test code 7.90 mg/dL 0.60-1.30 HH = CREAT) GFR NON BLACK (test 6 mL/min 95-105 L code = GFRNONBLACK) GFR BLACK (test code = 7 mL/min 115-127 L GFRBLACK) CALCIUM (test code = 8.6 mg/dl 8.0-10.5 N CA) [id number] 02:50:00 Test Item Value Reference Range Interpretation Comments GLUBED (test code = GLUBED) 103 mg/dL 70-110 N LACTIC [id number] 23:38:00 Test Item Value Reference Range Interpretation Comments LACTIC ACID (test code = LACT) 0.9 MMOL/L 0.4-2.0 N BASIC METABOLIC [id number] 23:34:00 Test Item Value Reference Range Interpretation Comments SODIUM (test code = 139 mmol/l 134.0-147.0 N NA) POTASSIUM (test code = 6.2 mmol/L 3.6-5.2 H IS SA MPLE HEMOLYSED? K) NO CHLORIDE (test code = 104 mmol/l 98.0-107.0 N CL) CARBON DIOXIDE (test 18.3 mmol/l 21.0-33.0 L code = CO2) ANION GAP (test code = 22.8 0-20 H GAP) GLUCOSE (test code = 111 mg/dl 70.0-110.0 H GLU) BLOOD UREA NITROGEN 71 mg/dl 7.0-18.0 H (test code = BUN) CREATININE (test code 7.11 mg/dL 0.60-1.30 HH = CREAT) GFR NON BLACK (test 7 mL/min 95-105 L code = GFRNONBLACK) GFR BLACK (test code = 8 mL/min 115-127 L GFRBLACK) CALCIUM (test code = 8.8 mg/dl 8.0-10.5 N CA) HEPATIC FUNCTION PANEL [id number] 23:34:00 Test Item Value Reference Range Interpretation Comments TOTAL PROTEIN (test code = PROT) 7.6 GM/DL 6.0-8.1 N ALBUMIN (test code = ALB) 3.3 gm/dL 3.2-4.7 N BILIRUBIN TOTAL (test code = 0.3 mg/dl 0.0-1.0 N BILT) BILIRUBIN DIRECT (test code = 0.1 mg/dl 0.0-0.3 N BILD) SGOT/AST (test code = AST) 87 Units/L 15-37 H SGPT/ALT (test code = ALT) 46 Units/L 12.0-78.0 N ALKALINE PHOSPHATASE TOTAL (test 142 Units/L 50.0-136.0 H code = ALKP) HCG SERUM [id number] 23:34:00 Test Item Value Reference Range Interpretation Comments HCG SERUM QUAL (test code = HCGQL) NEGATIVE NEGATIVE [id number] 23:34:00 Test Item Value Reference Range Interpretation Comments TROPONIN-I (test <0.02 NG/ML 0.00-0.06 N REFERENCE R BELINDA code = TROPI) TROPONIN I HEA LTHY INDIVIDUALS: <0 .06 ng/mL R/O ISCHE TUSHAR: 0.07 - 0.60 ng/ mL CUT-OFF RANGE F OR AMI: 0.60 - 1.5 ng/m L [id number] 23:34:00 Test Item Value Reference Range Interpretation Comments ALCOHOL (test code 0.00 gm/dL 0.00-0.00 N ETHYL ALC OHOL VALUES - = ALC) INTERPRETATION: 0.050 GM/DL - NOT INT OXICATED 0.100 GM/DL - INTOXICATED 0.3 50-0.450 GM/DL - SEVEREL Y INTOXICATED 0.5 50 GM/DL- FATAL INTOXICAT ION CREATINE KINASE (CK)2020-10-22 23:34:00 Test Item Value Reference Range Interpretation Comments CREATINE KINASE (CK) (test code 3133 Units/L 21 HH = CK) PROTHROMBIN [id number] 23:21:00 Test Item Value Reference Range Interpretation Comments PROTHROMBIN TIME 11.3 SECONDS 9.9-12.8 N PATIENT (test code = PTP) INTERNATIONAL NORMAL 1.0 0.89-1.14 N THE INR IS TO BE USED RATIO (test code = ONLY FOR MONITORING INR) ORAL ANTICOAGULANTTH ERAPY. THE FOLLOWING A RE SUGGESTED RANGE S FROM [facility] LE[facility] OF CHEST PHYSICIANS:KEDAR CATION INR VALUEPROPHY LAXIS OF VENOUS THROM BOSIS (ORTHOPEDIC ULI ANAND) 2.0 - 3.0PROPHY LAXIS OF VENOUS THROM BOSIS (OTHER THAN HIG H-RISK SURGERY) 2.0 - 3.0TREATMENT OF DEEP VEIN THROMBOSIS OR PULMONARY EMBOL ISM 2.0 - 3.0PREVENTION OF SYSTEMIC EMBOLI SM TISSUE HEART VA LVES 2.0 - 3.0 ACUTE MYOCARDIAL INFA RCTION (TO PREVENT SYS TEMIC EMBOLISM) 2.0 - 3.0 ACUTE MYOCARDIA L INFARCTION (TO PREVENT RECURRENT INFAR CT) 2.5 - 3.0 VALVULAR HEART DISEASE 2.0 - 3 .0 ATRIAL FIBRILAT ION 2.0 - 3.0BILEAFLET MECHANICAL VALV E IN AORTIC POSITION 2.0 - 3.0MECHANICAL PROSTHETIC VALV ES (HIGH RISK) 2.5 - 3.5PRESENCE OF LUPUS ANTICOAGULANT O R ANTIPHOSPHOLIPI D ANTIBODIES 2.5 - 3.5 Specimen comments: .THROMBOPLASTIN TIME [id number] 23:21:00 Test Item Value Reference Range Interpretation Comments THROMBOPLASTIN TIME 35.60 SECONDS 25.86-36.07 N [facility] PARTIAL (test code = Therape utic Range - PTT) APTT of 55.8-85 .4 secondscorrelat es with plasma heparin concentration o f 0.2-0.4 u/mL Ne w range effective - Specimen comments: .BASIC METABOLIC [id number] 23:15:00 Test Item Value Reference Range Interpretation Comments SODIUM (test code = NA) mmol/l 134.0-147.0 POTASSIUM (test code = K) mmol/L 3.6-5.2 CHLORIDE (test code = CL) mmol/l 98.0-107.0 CARBON DIOXIDE (test code = CO2) mmol/l 21.0-33.0 ANION GAP (test code = GAP) 0-20 GLUCOSE (test code = GLU) mg/dl 70.0-110.0 BLOOD UREA NITROGEN (test code = BUN) mg/dl 7.0-18.0 CREATININE (test code = CREAT) mg/dL 0.60-1.30 GFR NON BLACK (test code = mL/min 95-105 GFRNONBLACK) GFR BLACK (test code = GFRBLACK) mL/min 115-127 CALCIUM (test code = CA) mg/dl 8.0-10.5 HEPATIC FUNCTION PANEL [id number] 23:15:00 Test Item Value Reference Range Interpretation Comments TOTAL PROTEIN (test code = PROT) gm/dL 6.4-8.2 ALBUMIN (test code = ALB) gm/dl 3.2-4.7 BILIRUBIN TOTAL (test code = BILT) mg/dl 0.0-1.0 BILIRUBIN DIRECT (test code = BILD) mg/dl 0.0-0.3 SGOT/AST (test code = AST) Units/L 15-37 SGPT/ALT (test code = ALT) Units/L 12.0-78.0 ALKALINE PHOSPHATASE TOTAL (test Units/L 50.0-136.0 code = ALKP) HCG SERUM [id number] 23:15:00 Test Item Value Reference Range Interpretation Comments HCG SERUM QUAL (test code = HCGQL) NEGATIVE NEGATIVE [id number] 23:15:00 Test Item Value Reference Range Interpretation Comments TROPONIN-I (test code = TROPI) NG/ML 0.00-0.06 [id number] 23:15:00 Test Item Value Reference Range Interpretation Comments ALCOHOL (test code = ALC) gm/dL 0.00-0.00 [id number] 23:13:00 Test Item Value Reference Range Interpretation Comments AMMONIA (test code = AMM) 21.0 MCMOL/L 11.0-32.0 N CBC W/AUTO [id number] 22:56:00 Test Item Value Reference Range Interpretation Comments WHITE BLOOD CELL (test code = 15.4 K/mm3 4.5-11.0 H WBC) RED BLOOD CELL (test code = 3.95 M/mm3 3.80-5.20 N RBC) HEMOGLOBIN (test code = HGB) 10.9 gm/dL 12.0-16.0 L HEMATOCRIT (test code = HCT) 37.1 % 36.0-48.0 N MEAN CELL VOLUME (test code = 93.9 UM3 82.0-99.0 MCV) MEAN CELL HGB (test code = MCH) 27.6 UUG 25.5-32.5 N MEAN CELL HGB CONCETRATION 29.4 gm/dL 29.0-35.5 N (test code = MCHC) RED CELL DISTRIBUTION WIDTH 17.4 % 11.5-15.0 H (test code = RDW) RED CELL DISTRIBUTION WIDTH SD 60.2 fL 34.8-50.2 H (test code = RDW-SD) PLATELET COUNT (test code = 339 K/mm3 150-400 N PLT) MEAN PLATELET VOLUME (test code 11.1 fl 7.4-10.4 H = MPV) NEUTROPHIL % (test code = NT%) 78.0 % 49.0-76.0 H IMMATURE GRANULOCYTE % (test 0.5 % 0.0-0.4 H code = IG%) LYMPHOCYTE % (test code = LY%) 10.3 % 23.0-38.0 L MONOCYTE % (test code = MO%) 9.7 % 1.0-10.0 N EOSINOPHIL % (test code = EO%) 1.4 % 1.0-5.0 N BASOPHIL % (test code = BA%) 0.1 % 0.0-1.0 N NUCLEATED RBC % (test code = 0.0 % 0.0-0.1 N NRBC%) NEUTROPHIL # (test code = NT#) 12.0 K/mm3 2.4-6.3 H IMMATURE GRANULOCYTE # (test 0.07 x10 3/uL 0.00-0.07 N code = IG#) LYMPHOCYTE # (test code = LY#) 1.6 K/mm3 1.2-4.0 N MONOCYTE # (test code = MO#) 1.5 K/mm3 0.0-0.6 H EOSINOPHIL # (test code = EO#) 0.2 K/MM3 0.0-0.7 N BASOPHIL # (test code = BA#) 0.0 K/mm3 0.0-0.2 N NUCLEATED RBC # (test code = 0.00 X10 3uL 0.00-0.01 N NRBC#) - XR CHEST 1 [id number] 21:07:00 [facility] [place] : 1975 Sex: F FAX: Beau Carballo MD [place]: [address] St: REG Name: LIANA ASHBY [facility] : 1975 Age/S: 45/F [address] [facility] Unit #: [id number] Loc: [place], [place]: [place] [address] Acct: [id number] Dis Date: Status: REG ER PHONE #: [phone] Exam Date: 10/22/20202039 FAX #: [phone]: Altered Mental Status EXAMS: CPT CODE: [id number] XR CHEST 1 V 45034 - XR CHEST 1 V, :24 PM Reason For Examination: Altered Mental Status Comparison: June 24, 2020 Location: R16 Findings LUNGS: No definite pulmonary edema or consolidation PLEURA: No pleural effusions CARDIOMEDIASTINAL SILHOUETTE Unremarkable IMPRESSION: No plain film evidence of acute cardiopulmonary abnormality at 2107 Reported and signed by: Heidi Mixon M.D. CC: Beau Carballo MD Technologist: JHOAN OWENS [facility] Date/Time/By: 10/22/2020 (2106) : By: [email or web address] PAGE 1 Signed Report FAX: Beau Carballo MD [place]: St: REG -- Name: GUANAKITO ASHBY [facility] : 1975 Age/S: 45/F [address] [employer] Unit #: [id number] Loc: [address] Phys: [place] [address] Acct: [id number] Dis Date: Status: REG ER PHONE #: [phone] Exam Date: 10/22/20202039 FAX #: [phone] Reason: Altered Mental Status EXAMS: CPT CODE: [id number] XR CHEST 1 V 87139 <Continued> Orig Print D/T: S: 10/22/2020 (5016)PAGE 2 Signed Report- CT HEAD/BRAIN W/O CONT 2020-10-22 20:45:00 [facility] [place] : 1975 Sex: F FAX: Beau Carballo MD [place]: St: PRE Name: LIANA ASHBY [facility] : 1975 Age/S: 45/F [address] [facility] Unit: [id number] Loc: E.ERS2 [place], [place]: [place] [address] Acct: [id number] Dis Date: Status: PRE ER PHONE #: [phone] Exam Date: 10/22/20202036 FAX #: [phone]: Altered Mental Status EXAMS: CPT CODE: [id number] CT HEAD/BRAIN W/O CONT 59552 Examination: Noncontrast head CT Indication: Altered mental status Comparison: And Location: R16 Technique: Multiple CT images of the brain were obtained from the skull base to the vertex. No intravenous contrast was administered. One or more of the following dose reduction techniques were used: Automated exposure c ontrol, adjustment of the mA and/or kV according to patient size, and/or utilization of iterative reconstruction technique. Findings: There is prominence of the ventricles and sulci consistent with moderate supratentorial cerebral volume loss. The basilar cisterns are patent. There is no intracranial h emorrhage or mass effect. No intra-axial or extra-axial fluid collections are seen. There are mild periventricular and subcortical white matter hypodensities which are nonspecific, but likely the sequelae of chronic microvascular ischemia. This appearance makes evaluation for underlying acute infarct d ifficult The visualized paranasal sinuses and mastoid air cells are clear. Impression: 1. No acute intracranial hemorrhage or significant mass effect 2. Additional findings as above PAGE 1 Signed Report (CONTINUED) FAX: Beau Carballo MD [place]: St: PRE Name: LIANA ASHBY [facility] : 1975 Age/S: 45/F [address] [facility] Unit: [id number] Loc: [address] Phys: [place] [address] Acct: [id number] Dis Date: Status: PRE ER PHONE #: [phone] Exam Date: 10/22/20202036 FAX#: [phone] Reason: Altered Mental Status EXAMS: CPT CODE: [id number] CT HEAD/BRAIN W/O CONT 22619 <Continued> at 2044 Reported and signed by: Heidi Mixon M.D. CC: Beau Carballo MD Technologist: KARSON BLOOM Trnscrd Dt/Tm: 10/22/2020 (2044) 31 Orig Print D/T: S: 10/22/2020 (2047 PAGE 2 Signed ReportBASI METABOLIC [id number] 09:21:00 Test Item Value Reference Range Interpretation Comments SODIUM (test code = NA) 135 mmol/l 134.0-147.0 N POTASSIUM (test code = K) 4.9 mmol/L 3.6-5.2 N CHLORIDE (test code = CL) 104 mmol/l 98.0-107.0 N CARBON DIOXIDE (test code = CO2) 22.1 mmol/l 21.0-33.0 N ANION GAP (test code = GAP) 13.8 0-20 N GLUCOSE (test code = GLU) 154 mg/dl 70.0-110.0 H BLOOD UREA NITROGEN (test code = 30 mg/dl 7.0-18.0 H BUN) CREATININE (test code = CREAT) 1.34 mg/dL 0.60-1.30 H GFR NON BLACK (test code = 45 mL/min 95-105 L GFRNONBLACK) GFR BLACK (test code = GFRBLACK) 55 mL/min 115-127 L CALCIUM (test code = CA) 9.1 mg/dl 8.0-10.5 N - CT HEAD/BRAIN W/O [id number] 00:51:00 [facility] [place] : 1975 Sex: F FAX: Evy Hay MD [phone] [place]: [address]: ADM Name: LIANA ASHBY [facility] : 1975 Age/S: 45/F [address] [facility] Unit: [id number] Loc: [place], [place]: [place] [address] Acct: [id number] Dis Date: Status: ADM IN PHONE #: [phone] Exam Date: 10/16/2020 0015 FAX #: [phone] Reason: HEADACHE EXAMS: CPT CODE: [id number] CT HEAD/BRAIN W/O CONT 40393 LOCATION: [id number]: CT HEAD WO CONTRAST HISTORY: Headache. TECHNIQUE: Axial imaging the brain from skull base to the vertex without the administration of intravenous contrast. Sagittal and Coronal reconstructions. CT scan performed using appropriate/available dose optimization/reduction techniques. COMPARISON: CT brain without contrast 05/07/2020 FINDINGS: There is no evidence of an acute intracranial hemorrhage or extra-axial collection. There is no confluent low density to indicate acute territorial infarct. The ventricles are midline in position and normal in size. The basilar cisterns are patent and symmetric. An empty sella is again noted. The density of the major dural sinuses is within normal limits. The orbits and their contents are unremarkable. The calvarium is intact. Paranasal sinuses are clear. IMPRESSION: Stable examination. No evidence of acute intracranial pathology. Electronically Signedby Jeovanny Smalwlood on 10/16/2020 at 0051 Reported and signed by: Jaimie Smallwood M.D. PAGE 1 Signed Report (CONTINUED) FAX: Evy Hay MD [phone] [place]: St: ADM Name: LIANA ASHBY [facility] : 1975 Age/S: 45/F [address] Unit: [id number] Loc: [place], [place]: [place] [address] Acct: [id number] Dis Date: Status: ADM IN PHONE #: [phone] Exam Date: 14 FAX #: [phone] Reason: HEADACHE EXAMS: CPT CODE: [id number] CT HEAD/BRAIN W/O CONT 12148 <Continued> CC: Evy Hay MD Technologist: AKILA Bryant Dt/Tm: 10/16/2020 (0051) [email or web address] Orig Print D/T: S: 10/16/2020 (0054 PAGE 2 Signed ReportBASIC METABOLIC [id number] 23:30:00 Test Item Value Reference Range Interpretation Comments SODIUM (test code = NA) 137 mmol/l 134.0-147.0 N POTASSIUM (test code = K) 4.7 mmol/L 3.6-5.2 N CHLORIDE (test code = CL) 104 mmol/l 98.0-107.0 N CARBON DIOXIDE (test code = CO2) 24.6 mmol/l 21.0-33.0 N ANION GAP (test code = GAP) 13.1 0-20 N GLUCOSE (test code = GLU) 108 mg/dl 70.0-110.0 N BLOOD UREA NITROGEN (test code = 26 mg/dl 7.0-18.0 H BUN) CREATININE (test code = CREAT) 1.44 mg/dL 0.60-1.30 H GFR NON BLACK (test code = 42 mL/min 95-105 L GFRNONBLACK) GFR BLACK (test code = GFRBLACK) 51 mL/min 115-127 L CALCIUM (test code = CA) 9.1 mg/dl 8.0-10.5 N BASIC METABOLIC [id number] 23:29:00 Test Item Value Reference Range Interpretation Comments SODIUM (test code = NA) 137 mmol/l 134.0-147.0 N POTASSIUM (test code = K) 4.7 mmol/L 3.6-5.2 N CHLORIDE (test code = CL) 104 mmol/l 98.0-107.0 N CARBON DIOXIDE (test code = CO2) 24.6 mmol/l 21.0-33.0 N ANION GAP (test code = GAP) 13.1 0-20 N GLUCOSE (test code = GLU) mg/dl 70.0-110.0 BLOOD UREA NITROGEN (test code = mg/dl 7.0-18.0 BUN) CREATININE (test code = CREAT) mg/dL 0.60-1.30 GFR NON BLACK (test code = mL/min 95-105 GFRNONBLACK) GFR BLACK (test code = GFRBLACK) mL/min 115-127 CALCIUM (test code = CA) mg/dl 8.0-10.5 CBC W/AUTO [id number] 23:20:00 Test Item Value Reference Range Interpretation Comments WHITE BLOOD CELL (test code = 11.0 K/mm3 4.5-11.0 N WBC) RED BLOOD CELL (test code = 4.25 M/mm3 3.80-5.20 N RBC) HEMOGLOBIN (test code = HGB) 11.4 gm/dL 12.0-16.0 L HEMATOCRIT (test code = HCT) 38.3 % 36.0-48.0 N MEAN CELL VOLUME (test code = 90.1 UM3 82.0-99.0 N MCV) MEAN CELL HGB (test code = MCH) 26.8 UUG 25.5-32.5 N MEAN CELL HGB CONCETRATION 29.8 gm/dL 29.0-35.5 N (test code = MCHC) RED CELL DISTRIBUTION WIDTH 16.1 % 11.5-15.0 H (test code = RDW) RED CELL DISTRIBUTION WIDTH SD 52.8 fL 34.8-50.2 H (test code = RDW-SD) PLATELET COUNT (test code = 308 K/mm3 150-400 N PLT) MEAN PLATELET VOLUME (test code 11.0 fl 7.4-10.4 H = MPV) NEUTROPHIL % (test code = NT%) 70.4 % 49.0-76.0 N IMMATURE GRANULOCYTE % (test 0.5 % 0.0-0.4 H code = IG%) LYMPHOCYTE % (test code = LY%) 17.5 % 23.0-38.0 L MONOCYTE % (test code = MO%) 10.2 % 1.0-10.0 H EOSINOPHIL % (test code = EO%) 1.0 % 1.0-5.0 N BASOPHIL % (test code = BA%) 0.4 % 0.0-1.0 N NUCLEATED RBC % (test code = 0.0 % 0.0-0.1 N NRBC%) NEUTROPHIL # (test code = NT#) 7.8 K/mm3 2.4-6.3 H IMMATURE GRANULOCYTE # (test 0.05 x10 3/uL 0.00-0.07 N code = IG#) LYMPHOCYTE # (test code = LY#) 1.9 K/mm3 1.2-4.0 N MONOCYTE # (test code = MO#) 1.1 K/mm3 0.0-0.6 H EOSINOPHIL # (test code = EO#) 0.1 K/MM3 0.0-0.7 N BASOPHIL # (test code = BA#) 0.0 K/mm3 0.0-0.2 N NUCLEATED RBC # (test code = 0.00 X10 3uL 0.00-0.01 N NRBC#) POCT [id number] 03:35:00 Test Item Value Reference Range Interpretation Comments POCT PREG (test code = 1605) negative On board controls acceptable with present C Line (test code = 3574) POCT PREG LOT # (test code = 3575) [id number] POCT PREG TEST DATE (test 2022-04-17 code = 3576) Lab Interpretation (test code = Normal 75832-0) [id number] Test Item Value Reference Range Interpretation Comments POCT PREG (test code = 1605) Negative On board controls acceptable with Present C Line (test code = 3574) POCT PREG LOT # (test code = 3575) [id number] POCT PREG TEST DATE (test 12/16/2020 code = 3576) Lab Interpretation (test code = Normal 42235-9) [facility]- XR FOOT 3 + V [id number] 02:05:00 [facility] [place] : 1975 Sex: F FAX: Pratibha Smart MD [place]: St: REG Name: LIANA ASHBY [facility] : 1975 Age/S: 45/F [address] [facility] Unit #: [id number] Loc: [address] Phys: [place] [address] Acct: [id number] Dis Date: Status: REG ER PHONE #: [phone] Exam Date: 10/07/2020 0149 FAX #: [phone] Reason: fall EXAMS: CPT CODE: [id number] XR FOOT 3 + [place] [address] AFTER HOURS SERVICE ON: 11:59 AM Left Ankle, 3 Views Location Code M12 History: fall Findings: There is normal anatomic alignment. There is an osteochondral defect in the lateral aspect of the talar dome measuring 1.2 cm. Ankle mortise and tibial plafond are intact. Impression: 1.2 cm osteochondral defect in the talar dome. AFTER HOURS SERVICE ON: 10/07/2020 1:59 AM Left Foot, 3 Views Location Code M12 History: fall Findings: There is normal anatomic alignment. No fracture, dislocation or avulsion fragments are seen. Articular surfaces are within normal limits for patient's ag e. Impression: Unremarkable foot. PAGE 1 Signed Report (CONTINUED) FAX: Pratibha Smart MD [place]: St: REG -- Name: LIANA ASHBY [facility] : 1975 Age/S: 45/F [address] Unit #: [id number] Loc: [address] Phys: [place] [address] Acct: [id number] Dis Date: Status: REG ER PHONE #: [phone] Exam Date: 10/07/2020 0149 FAX #: [phone] Reason: fall EXAMS: CPT CODE: [id number] XR FOOT 3 + [place] [address] <Continued> at 0205 Reported and signed by: aSrah Miguel M.D. CC: Pratibha Dubon MD Technologist: RADHA CHACON [facility] Date/Time/By: 10/07/2020 (0205) : By: [email or web address] PAGE 2 Signed Report FAX: Pratibha Smart MD [place]: St: REG Name: LIANA ASHBY [facility] : 1975 Age/S: 45/F [address] Unit #: [id number] Loc: [address] [place], [place] Phys: [place] [address] Acct: [id number] Dis Date: Status: REG ER PHONE #: [phone] Exam Date: 10/07/2020148 FAX #: [phone] Reason: fall EXAMS: CPT CODE: [id number] XR FOOT 3 + [place] [address] <Continued> Orig Print D/T: S: 10/07/2020 (0208) PAGE 3 Signed Report- XR ANKLE 3 + V [id number] 02:05:00 [facility] [place] : 1975 Sex: F FAX: Pratibha Smart MD [place]: St: REG Name: LIANA SAHBY [facility] : 1975 Age/S: 45/F [address] [facility] Unit #: [id number] Loc: [address] [place], [place]: [place] [address] Acct: [id number] Dis Date: Status: REG ER PHONE #: [phone] Exam Date: 10/07/2020 014 FAX #: [phone] Reason: fall EXAMS: CPT CODE: [id number] XR ANKLE 3 + V LT [address] AFTER HOURS SERVICE ON: 10/07/2020 1:59 AM Left Ankle, 3 Views Location Code M12 History: fall Findings: There is normal anatomic alignment. There is an osteochondral defect in the lateral aspect of the talar dome measuring 1.2 cm. Ankle mortise and tibial plafond are intact. Impression: 1.2 cm osteochondral defect in the talar dome. AFTER HOURS SERVICE ON: 10/07/2020 1:59 AM Left Foot, 3 Views Location Code M12 History: fall Findings: There is normal anatomic alignment. No fracture, dislocation or avulsion fragments are seen. Articular surfaces are within normal limits for patient's age. Impression: Unremarkable foot. PAGE 1 Signed Report (CONTINUED) FAX: Pratibha Smart MD [place]: St: REG -- Name: LIANA ASHBY [facility] : 1975 Age/S: 45/F [address] [facility] Unit #: [id number] Loc: [address] [place]: [place] [address] Acct: [id number] Dis Date: Status: REG ER PHONE #: [phone] Exam Date: 10/07/2020 0149 FAX #: [phone] Reason: fall EXAMS: CPTCODE: [id number] XR ANKLE 3 + [place] LT [address] <Continued> at 0205 Reported and signed by: Sarah Miguel M.D. CC: Pratibha Dubon MD Technologist: RADHA CHACON Trnscrd Date/Time/By: 10/07/2020 (0205) : By: [email or web address] PAGE2 Signed Report FAX: Pratibha Smart MD [place]: St: REG Name: LIANA ASHBY [facility] : 1975 Age/S: 45/F [address] [facility] Unit #: [id number] Loc: [address] [place]: [place] [address] Acct: [id number] Dis Date: Status: REG ER PHONE #: [phone] Exam Date: 10/07/2020 0149 FAX #: [phone] Reason: fall EXAMS: CPT CODE: [id number] XR ANKLE 3 + V LT [address]129 <Continued> Orig Print D/T: S: 10/07/2020 (207) PAGE 3 Signed ReportNOVANT [id number] 04:16:00 Test Item Value Reference Range Interpretation Comments Glucose Lvl (test code = Glucose Lvl) 106 70-99 [facility]2021-04-29 04:16:00 Test Item Value Reference Range Interpretation Comments BUN (test code = BUN) 25 7-22 [facility]2021-04-29 04:16:00 Test Item Value Reference Range Interpretation Comments Creatinine Lvl (test code = Creatinine 1.52 0.50-1.40 Lvl) [facility]2021-04-29 04:16:00 Test Item Value Reference Range Interpretation Comments Sodium Lvl (test code = Sodium Lvl) 137 135-145 [facility]2021-04-29 04:16:00 Test Item Value Reference Range Interpretation Comments Potassium Lvl (test code = Potassium 4.2 3.5-5.1 Lvl) [place]311-04-29 04:16:00 Test Item Value Reference Range Interpretation Comments Chloride Lvl (test code = Chloride Lvl) 101 95-109 [facility] [id number] 04:16:00 Test Item Value Reference Range Interpretation Comments CO2 (test code = CO2) 25 24-32 [facility] BrookGeneTexABIGAIL [place]IL[place] [id number] 04:16:00 Test Item Value Reference Range Interpretation Comments Calcium Lvl (test code = Calcium Lvl) 9.0 8.5-10.5 [facility] [id number] 04:16:00 Test Item Value Reference Range Interpretation Comments Total Protein (test code = Total 7.1 6.4-8.4 Protein) [facility] [id number] 04:16:00 Test Item Value Reference Range Interpretation Comments Albumin Lvl (test code = Albumin Lvl) 3.1 3.5-5.0 [facility] [id number] 04:16:00 Test Item Value Reference Range Interpretation Comments ALT (test code = ALT) 20 See_Comment [Auto mated message] The system which ge nerated this result transmit kody reference range : <=65. The reference range was not used to interpr et this result as michell l/abnormal. [facility] RepRegen [id number] 04:16:00 Test Item Value Reference Range Interpretation Comments AST (test code = AST) 10 See_Comment [Auto mated message] The system which ge nerated this result transmit kody reference range : <=37. The reference range was not used to interpr et this result as michell l/abnormal. [facility] [id number] 04:16:00 Test Item Value Reference Range Interpretation Comments Alk Phos (test code = Alk Phos) 129 39-136 [facility] [id number] 04:16:00 Test Item Value Reference Range Interpretation Comments Bili Total (test code = Bili Total) 0.3 0.2-1.3 [facility] [id number] 04:16:00 Test Item Value Reference Range Interpretation Comments AGAP (test code = AGAP) 15.2 10.0-20.0 [facility] [id number] 04:16:00 Test Item Value Reference Range Interpretation Comments B/C Ratio (test code = B/C Ratio) 16 1 6-25 [facility]2021-04-29 04:16:00 Test Item Value Reference Range Interpretation Comments Globulin (test code = Globulin) 4.0 2.7-4.2 [facility]2021-04-29 04:16:00 Test Item Value Reference Range Interpretation Comments A/G Ratio (test code = A/G Ratio) 0.8 1 0.7-1.6 [facility]2021-04-29 04:16:00 Test Item Value Reference Range Interpretation Comments eGFR (test code = eGFR) 41 [facility] [id number] 04:16:00 Test Item Value Reference Range Interpretation Comments Lipase Lvl (test code = Lipase Lvl) 70 73-393 [facility] KlebergOpyllclHIDVEWPLEX4868-29-58 04:16:00 Test Item Value Reference Range Interpretation Comments WBC (test code = WBC) 11.3 3.7-10.4 [facility] KlebergHectxkbPJPHBVNWJM3507-23-06 04:16:00 Test Item Value Reference Range Interpretation Comments RBC (test code = RBC) 3.96 4.20-5.40 [facility] KlebergRsufhgtKMJCZMLCNQ8508-30-37 04:16:00 Test Item Value Reference Range Interpretation Comments Hgb (test code = Hgb) 10.7 12.0-16.0 [facility] KlebergDbbvtlqGTZSMXBTMR1282-95-09 04:16:00 Test Item Value Reference Range Interpretation Comments Hct (test code = Hct) 33.3 36.0-48.0 [facility] KlebergKdojalhODGHQUTCUS9775-53-52 04:16:00 Test Item Value Reference Range Interpretation Comments MCV (test code = MCV) 84.0 80.0-98.0 [facility] KlebergUblthumXOTZURNRVX8783-36-88 04:16:00 Test Item Value Reference Range Interpretation Comments MCH (test code = MCH) 27.0 pg 27.0-31.0 [facility] KlebergJqtbyvpHHLXVYRVJY0964-54-14 04:16:00 Test Item Value Reference Range Interpretation Comments MCHC (test code = MCHC) 32.1 32.0-36.0 [facility] KlebergItsarmjRHAITYAXZJ7742-68-76 04:16:00 Test Item Value Reference Range Interpretation Comments RDW (test code = RDW) 16.0 11.5-14.5 [place] 765441-04-29 04:16:00 Test Item Value Reference Range Interpretation Comments Platelet (test code = Platelet) 256 133-450 [place] 765441-04-29 04:16:00 Test Item Value Reference Range Interpretation Comments MPV (test code = MPV) 8.4 7.4-10.4 [place] 765441-04-29 04:16:00 Test Item Value Reference Range Interpretation Comments Segs (test code = Segs) 71.8 45.0-75.0 [place] 765441-04-29 04:16:00 Test Item Value Reference Range Interpretation Comments Lymphocytes (test code = Lymphocytes) 16.6 20.0-40.0 [place] 765441-04-29 04:16:00 Test Item Value Reference Range Interpretation Comments Monocytes (test code = Monocytes) 9.2 2.0-12.0 [facility] KlebergBivlmdoRMGTNANENI1762-39-01 04:16:00 Test Item Value Reference Range Interpretation Comments Eosinophils (test code = 2.0 See_Comment [A utomated message] The Eosinophils) system which ge nerated this result tra nsmitted reference range : <=4.0. The reference r belinda was not used to int erpret this result as normal/abnormal . [facility] KlebergJihcljtWJAPDEUPMG8667-70-27 04:16:00 Test Item Value Reference Range Interpretation Comments Basophils (test code = 0.4 See_Comment [Aut omated message] The Basophils) system which ge nerated this result tra nsmitted reference range : <=1.0. The reference r belinda was not used to int erpret this result as normal/abnormal . [facility] KlebergPnfjnnyGHUKVGUYPT4932-22-86 04:16:00 Test Item Value Reference Range Interpretation Comments Neutrophils # (test code = Neutrophils 8.1 1.5-8.1 #) [place] 765441-04-29 04:16:00 Test Item Value Reference Range Interpretation Comments Lymphocytes # (test code = Lymphocytes 1.9 1.0-5.5 #) [place] 765441-04-29 04:16:00 Test Item Value Reference Range Interpretation Comments Monocytes # (test code 1.0 See_Comment [Aut omated message] The = Monocytes #) system which generated this result tra nsmitted reference range : <=0.8. The reference r belinda was not used to int erpret this result as normal/abnormal . [facility]leizlLCTQWXNSNG2303-62-16 04:16:00 Test Item Value Reference Range Interpretation Comments Eosinophils # (test code 0.2 See_Comment [A utomated message] The = Eosinophils #) system [employer]comic h generated this result tra nsmitted reference range : <=0.5. The reference r belinda was not used to int erpret this result as normal/abnormal . [facility]IMIPENEM:SUSC:PT:ISOLATE:ORDQN:[id number] 04:16:00 Test Item Value Reference Range Interpretation Comments Culture: Urine (test >100,000 CFU/mL code = Culture: Escherichia coli 10,000 - Urine) 50,000 CFU/mL Skin [facility]agan [facility]IMIPENEM:SUSC:PT:ISOLATE:ORDQN:[id number] 04:16:00 Test Item Value Reference Range Interpretation Comments Escherichia coli (test code Escherichia coli = Escherichia coli) [facility] [id number] 04:16:00 Test Item Value Reference Range Interpretation Comments UA Color (test code = Yellow *NA*(09/13/20 UA Color) 11:16 PM) [facility] [id number] 04:16:00 Test Item Value Reference Range Interpretation Comments UA Turbidity (test code = Clear (09/13/20 11:16 UA Turbidity) PM) [facility] [id number] 04:16:00 Test Item Value Reference Range Interpretation Comments UA Spec Grav (test code = UA Spec 1.020 1 Grav) [facility] [id number] 04:16:00 Test Item Value Reference Range Interpretation Comments UA pH (test code = UA pH) 6.0 1 5.0-8.0 [facility] [id number] 04:16:00 Test Item Value Reference Range Interpretation Comments UA Protein (test code Negative (09/13/20 11:16 = UA Protein) PM) [facility] [id number] 04:16:00 Test Item Value Reference Range Interpretation Comments UA Glucose (test code Negative (09/13/20 11:16 = UA Glucose) PM) [facility] [id number] 04:16:00 Test Item Value Reference Range Interpretation Comments UA Ketones (test code Negative *NA*(09/13/20 = UA Ketones) 11:16 PM) [facility] [id number] 04:16:00 Test Item Value Reference Range Interpretation Comments UA Bili (test code = Negative *NA*(09/13/20 UA Bili) 11:16 PM) [facility] [id number] 04:16:00 Test Item Value Reference Range Interpretation Comments UA Blood (test code = Negative (09/13/20 11:16 UA Blood) PM) [facility] [id number] 04:16:00 Test Item Value Reference Range Interpretation Comments UA Urobilinogen (test code = UA 1.0 0.1-1.0 Urobilinogen) [facility] [id number] 04:16:00 Test Item Value Reference Range Interpretation Comments UA Nitrite (test code Positive *ABN*(09/13/20 = UA Nitrite) 11:16 PM) [facility] [id number] 04:16:00 Test Item Value Reference Range Interpretation Comments UA Leuk Est (test Negative (09/13/20 11:16 code = UA Leuk Est) PM) [facility] [id number] 04:16:00 Test Item Value Reference Range Interpretation Comments UA Sq Epi (test code = UA Sq Occasional /LPF Epi) [facility] [id number] 04:16:00 Test Item Value Reference Range Interpretation Comments UA WBC (test code = UA WBC) 3-5 /HPF [facility] [id number] 04:16:00 Test Item Value Reference Range Interpretation Comments UA RBC (test code = UA RBC) 0-2 /HPF [facility] [id number] 04:16:00 Test Item Value Reference Range Interpretation Comments UA Bacteria (test code = UA Many /HPF Bacteria) [facility] [id number] 04:16:00 Test Item Value Reference Range Interpretation Comments UA Mucus (test code = None Seen (09/13/20 UA Mucus) 11:16 PM) [facility]annCHEM [id number] 04:16:00 Test Item Value Reference Range Interpretation Comments Glucose Lvl (test code = Glucose Lvl) 106 70-99 [place] 559311-04-29 04:16:00 Test Item Value Reference Range Interpretation Comments BUN (test code = BUN) 25 7-22 [place] 559311-04-29 04:16:00 Test Item Value Reference Range Interpretation Comments Creatinine Lvl (test code = Creatinine 1.52 0.50-1.40 Lvl) [place] 559311-04-29 04:16:00 Test Item Value Reference Range Interpretation Comments Sodium Lvl (test code = Sodium Lvl) 137 135-145 [place] 559311-04-29 04:16:00 Test Item Value Reference Range Interpretation Comments Potassium Lvl (test code = Potassium 4.2 3.5-5.1 Lvl) [place] 559311-04-29 04:16:00 Test Item Value Reference Range Interpretation Comments Chloride Lvl (test code = Chloride Lvl) 101 95-109 [place] 559311-04-29 04:16:00 Test Item Value Reference Range Interpretation Comments CO2 (test code = CO2) 25 24-32 [place] 559311-04-29 04:16:00 Test Item Value Reference Range Interpretation Comments Calcium Lvl (test code = Calcium Lvl) 9.0 8.5-10.5 [place] 559311-04-29 04:16:00 Test Item Value Reference Range Interpretation Comments Total Protein (test code = Total 7.1 6.4-8.4 Protein) [place] 559311-04-29 04:16:00 Test Item Value Reference Range Interpretation Comments Albumin Lvl (test code = Albumin Lvl) 3.1 3.5-5.0 [place] 559311-04-29 04:16:00 Test Item Value Reference Range Interpretation Comments ALT (test code = ALT) 20 See_Comment [Auto mated message] The system which ge nerated this result transmit kody reference range : <=65. The reference range was not used to interpr et this result as michell l/abnormal. [place] 559311-04-29 04:16:00 Test Item Value Reference Range Interpretation Comments AST (test code = AST) 10 See_Comment [Auto mated message] The system which ge nerated this result transmit kody reference range : <=37. The reference range was not used to interpr et this result as michell l/abnormal. [place] 559311-04-29 04:16:00 Test Item Value Reference Range Interpretation Comments Alk Phos (test code = Alk Phos) 129 39-136 [place] 559311-04-29 04:16:00 Test Item Value Reference Range Interpretation Comments Bili Total (test code = Bili Total) 0.3 0.2-1.3 [place] 559311-04-29 04:16:00 Test Item Value Reference Range Interpretation Comments AGAP (test code = AGAP) 15.2 10.0-20.0 [facility] BrookGeneTexABIGAIL [facility] [id number] 04:16:00 Test Item Value Reference Range Interpretation Comments B/C Ratio (test code = B/C Ratio) 16 1 6-25 [place] 559311-04-29 04:16:00 Test Item Value Reference Range Interpretation Comments Globulin (test code = Globulin) 4.0 2.7-4.2 [place] 559311-04-29 04:16:00 Test Item Value Reference Range Interpretation Comments A/G Ratio (test code = A/G Ratio) 0.8 1 0.7-1.6 [place] 559311-04-29 04:16:00 Test Item Value Reference Range Interpretation Comments eGFR (test code = eGFR) 41 [place] 559311-04-29 04:16:00 Test Item Value Reference Range Interpretation Comments Lipase Lvl (test code = Lipase Lvl) 70 73-393 [place] 765441-04-29 04:16:00 Test Item Value Reference Range Interpretation Comments WBC (test code = WBC) 11.3 3.7-10.4 [place] 765441-04-29 04:16:00 Test Item Value Reference Range Interpretation Comments RBC (test code = RBC) 3.96 4.20-5.40 [place] 765441-04-29 04:16:00 Test Item Value Reference Range Interpretation Comments Hgb (test code = Hgb) 10.7 12.0-16.0 [place] [address]-04-29 04:16:00 Test Item Value Reference Range Interpretation Comments Hct (test code = Hct) 33.3 36.0-48.0 [place] 765441-04-29 04:16:00 Test Item Value Reference Range Interpretation Comments MCV (test code = MCV) 84.0 80.0-98.0 [facility]bergCueypczPMTCXTQLEF5133-38-89 04:16:00 Test Item Value Reference Range Interpretation Comments MCH (test code = MCH) 27.0 pg 27.0-31.0 [facility] KlebergGpogonwPXDXRJZLCQ7576-50-31 04:16:00 Test Item Value Reference Range Interpretation Comments MCHC (test code = MCHC) 32.1 32.0-36.0 [place] 765441-04-29 04:16:00 Test Item Value Reference Range Interpretation Comments RDW (test code = RDW) 16.0 11.5-14.5 [place] 765441-04-29 04:16:00 Test Item Value Reference Range Interpretation Comments Platelet (test code = Platelet) 256 133-450 [facility] KlebergVizseumWYYWAMTPOZ3145-28-18 04:16:00 Test Item Value Reference Range Interpretation Comments MPV (test code = MPV) 8.4 7.4-10.4 [place] 765441-04-29 04:16:00 Test Item Value Reference Range Interpretation Comments Segs (test code = Segs) 71.8 45.0-75.0 [facility] KlebergLzbwigaGLHGCPYNWR8551-26-99 04:16:00 Test Item Value Reference Range Interpretation Comments Lymphocytes (test code = Lymphocytes) 16.6 20.0-40.0 [facility] KlebergKjinmdqYWERBGLIEK7983-77-64 04:16:00 Test Item Value Reference Range Interpretation Comments Monocytes (test code = Monocytes) 9.2 2.0-12.0 [place] 765441-04-29 04:16:00 Test Item Value Reference Range Interpretation Comments Eosinophils (test code = 2.0 See_Comment [A utomated message] The Eosinophils) system which ge nerated this result tra nsmitted reference range : <=4.0. The reference r belinda was not used to int erpret this result as normal/abnormal . [facility] KlebergOifpwuuEWBYRPUQHR1091-18-80 04:16:00 Test Item Value Reference Range Interpretation Comments Basophils (test code = 0.4 See_Comment [Aut omated message] The Basophils) system which ge nerated this result tra nsmitted reference range : <=1.0. The reference r belinda was not used to int erpret this result as normal/abnormal . [facility] KlebergEmvhswdOEUPHUMBOU0017-43-74 04:16:00 Test Item Value Reference Range Interpretation Comments Neutrophils # (test code = Neutrophils 8.1 1.5-8.1 #) [facility] KlebergLslpfgrVLRNWGFCKC7068-20-35 04:16:00 Test Item Value Reference Range Interpretation Comments Lymphocytes # (test code = Lymphocytes 1.9 1.0-5.5 #) [facility] KlebergUgiahymWCJQPLBXLQ5083-08-52 04:16:00 Test Item Value Reference Range Interpretation Comments Monocytes # (test code 1.0 See_Comment [Aut omated message] The = Monocytes #) system which generated this result tra nsmitted reference range : <=0.8. The reference r belinda was not used to int erpret this result as normal/abnormal . [facility] KlebergRsixkdyEYAFWLVFXM7366-28-21 04:16:00 Test Item Value Reference Range Interpretation Comments Eosinophils # (test code 0.2 See_Comment [A utomated message] The = Eosinophils #) system whic h generated this result tra nsmitted reference range : <=0.5. The reference r belinda was not used to int erpret this result as normal/abnormal . [facility]ardoannIMIPENEM:SUSC:PT:ISOLATE:ORDQN:[id number] 04:16:00 Test Item Value Reference Range Interpretation Comments Culture: Urine (test >100,000 CFU/mL code = Culture: Escherichia coli 10,000 - Urine) 50,000 CFU/mL Skin [facility] HermannIMIPENEM:SUSC:PT:ISOLATE:ORDQN:[id number] 04:16:00 Test Item Value Reference Range Interpretation Comments Escherichia coli (test code Escherichia coli = Escherichia coli) [facility] [id number] 04:16:00 Test Item Value Reference Range Interpretation Comments UA Color (test code = Yellow *NA*(09/13/20 UA Color) 11:16 PM) [facility] [id number] 04:16:00 Test Item Value Reference Range Interpretation Comments UA Turbidity (test code = Clear (09/13/20 11:16 UA Turbidity) PM) [facility] [id number] 04:16:00 Test Item Value Reference Range Interpretation Comments UA Spec Grav (test code = UA Spec 1.020 1 Grav) [facility] [id number] 04:16:00 Test Item Value Reference Range Interpretation Comments UA pH (test code = UA pH) 6.0 1 5.0-8.0 [facility] [id number] 04:16:00 Test Item Value Reference Range Interpretation Comments UA Protein (test code Negative (09/13/20 11:16 = UA Protein) PM) [facility] [id number] 04:16:00 Test Item Value Reference Range Interpretation Comments UA Glucose (test code Negative (09/13/20 11:16 = UA Glucose) PM) [facility] [id number] 04:16:00 Test Item Value Reference Range Interpretation Comments UA Ketones (test code Negative *NA*(09/13/20 = UA Ketones) 11:16 PM) [facility] AND [id number] 04:16:00 Test Item Value Reference Range Interpretation Comments UA Bili (test code = Negative *NA*(09/13/20 UA Bili) 11:16 PM) [facility] AND [id number] 04:16:00 Test Item Value Reference Range Interpretation Comments UA Blood (test code = Negative (09/13/20 11:16 UA Blood) PM) [facility] AND [id number] 04:16:00 Test Item Value Reference Range Interpretation Comments UA Urobilinogen (test code = UA 1.0 0.1-1.0 Urobilinogen) [facility] [id number] 04:16:00 Test Item Value Reference Range Interpretation Comments UA Nitrite (test code Positive *ABN*(09/13/20 = UA Nitrite) 11:16 PM) [facility] [id number] 04:16:00 Test Item Value Reference Range Interpretation Comments UA Leuk Est (test Negative (09/13/20 11:16 code = UA Leuk Est) PM) [facility] AND [id number] 04:16:00 Test Item Value Reference Range Interpretation Comments UA Sq Epi (test code = UA Sq Occasional /LPF Epi) [facility] AND [id number] 04:16:00 Test Item Value Reference Range Interpretation Comments UA WBC (test code = UA WBC) 3-5 /HPF [facility] [id number] 04:16:00 Test Item Value Reference Range Interpretation Comments UA RBC (test code = UA RBC) 0-2 /HPF [facility] [id number] 04:16:00 Test Item Value Reference Range Interpretation Comments UA Bacteria (test code = UA Many /HPF Bacteria) [facility] [id number] 04:16:00 Test Item Value Reference Range Interpretation Comments UA Mucus (test code = None Seen (09/13/20 UA Mucus) 11:16 PM) [facility] Myron- XR KNEE 3 V [id number] 21:43:00 [facility] 1975 Sex: F FAX: Tha Mcginnis DO [phone] [place]: St: REG Name: LIANA ASHBY [facility] : 1975 Age/S: 45/F [address] [facility] Unit #: [id number] Loc: [address] Phys: [place] [address] Acct: [id number] Dis Date: Status: REG ER PHONE #: [phone] Exam Date: 09/13/20202129 FAX #: Reason: Fell off horse, knee pain EXAMS: CPT CODE: [id number] XR KNEE 3 V RT 98904 EXAM: - XR KNEE 3 V RT HISTORY: Injury. Pain. COMPARISON: None available time of interpretation. FINDINGS:AP, oblique, and lateral view of the right knee is provided. There is no acute fracture or malalignment. The joint spaces are preserved. IMPRESSION: No acute osseous abnormality. at 2143 Reported and signed by: Cheko Castellon M.D. CC: Tha Mcginnis DO Technologist: EDINSON Bryant Date/Time/By: 09/13/2020 (2142) : By: [email or web address] PAGE 1 Signed Report FAX: Tha Mcginnis DO [phone] [place]: St: REG Name: LIANA ASHBY [facility] : 1975 Age/S: 45/F [address] [facility] Unit #: [id number] Loc: [address] Phys: [place] [address] Acct: [id number] Dis Date: Status: REG ER PHONE #: [phone] Exam Date: 09/13/20202129 FAX #: [phone] Reason: Fell off horse, knee pain EXAMS: CPT CODE: [id number] XR KNEE 3 V RT 50383 <Continued> Orig Print D/T: S: 09/13/2020 (2145) PAGE 2 Signed Report- CT L-SPINE W/O [id number] 21:38:00[facility]: LIANA ASHBY : 1975 Sex: F FAX: McginnisTha DO [phone] [place]: St: REG Name: LIANA ASHBY [facility] : 1975 Age/S: 45/F [address] [facility] Unit: [id number] Loc: [address] Phys: [place] [address] Acct: [id number] Dis Date: Status: REG ER PHONE #: [phone] Exam Date: 09/13/20202123 FAX #: Reason: Fell off horse, back pain EXAMS: CPT CODE: [id number] CT L- SPINE W/O CONTRAST [id number] location: H37. CT LUMBAR SPINE WITHOUT CONTRAST; SAGITTAL AND CORONAL REFORMATTED VIEWS. HISTORY: Fell off horse, back pain COMPARISON : CT lumbar spine 06/26/20. TECHNIQUE: Axial CT images of the lumbar spine were obtained with coronal and sagittal reformatted views. Automated exposure control, iterative reconstruction technique, and/or adjustment of mA and/or kV according to patient's size was utilized for radiation dose reduction. IV CONTRAST: None. FINDINGS: The lumbar vertebral alignment is satisfactory without evidence of a fracture or subluxation. No prevertebral soft tissue swelling. At L5-S1, mild disc space narrowing is noted with likely posterior bulging annulus causing narrowing of the anterior recesses and up to mild spinal canal stenosis. Mild to moderate neuroforaminal narrowing. IMPRESSION: No lumbar spine fracture or subluxation. Degenerative changes at L5-S1 with probable disc bulge. at 2138 Reported and signed by: Fani Galvez M.D. CC: Tha Mcginnis DO Technologist: JHOAN OWENS Trnscrd Dt/Tm: 09/13/2020 (2137) [email or web address] Orig Print D/T: S: 09/13/2020 (1 PAGE 1 Signed ReportUR HCG [id number] 21:14:00 Test Item Value Reference Range Interpretation Comments UR HCG QUAL (test code = HCGQLU) NEGATIVE NEGATIVE - CT ABD PELVIS [id number] 00:05:00 [facility] LIANA ASHBY : 1975 Sex: F FAX: Pratibha Smart MD [place]: St: REG Name: LIANA ASHBY [facility] : 1975 Age/S: 45/F [address] [facility] Unit: [id number] Loc: E[address] [place], [place]: [place] [address] Acct: [id number] Dis Date: Status: REG ER PHONE #: [phone] Exam Date: 08/13/2020 2300 FAX #: [phone] Reason: PAIN EXAMS: CPT CODE: [id number] CT ABD PELVIS W/CONT 92676 Examination: CT scan abdomen and pelvis with contrast. Location code: H 60. TECHNIQUE: Multiple axial images of the abdomen and pelvis were obtained after intravenous administration of contrast with sagittal and coronal reconstructions. CT examination was performed using automated dose reduction. 100 mL of Isovue 300 contrast was inj ected intravenously. GFR measures 68. Discussion: Clinical history significant for abdominal pain. Patient is status post cholecystectomy. Postsurgical changes identified adjacent to the stomach. The liver, spleen, adrenal glands, pancreas and kidneys are normal in appearance. Bowel loops are normal in caliber. No enlarged retroperitoneal, pelvic or inguinal adenopathy is identified. Appendix is visualized and is normal in appearance. There is no CT evidence for appendicitis. Fecal debris seen scattered throughout the colon consistent with constipation. Bladder is distended. No definite bladder calculi identified. A small calcification is identified just superior to the bladder and likely within the inferior aspect of the uterus. No other abnormal masses or fluid collections identified within the abdomen and/or pelvis. Images through the lung bases are unremarkable. IMPRESSION: 1. Constipation.2. Otherwise unremarkable CT scan of abdomen and pelvis. at 0005 Reported and signed by: ROBERT HERNANDEZ CC: Pratibha Dubon MD Technologist: AKILA MILLAN Trnscrd Dt/Tm: 08/14/2020 (0005) [email or web address] Orig Print D/T: S: 08/14/2020 (0008 PAGE 1 Signed ReportCOMPREHENSIVE METABOLIC [id number] 21:26:00 Test Item Value Reference Range Interpretation Comments SODIUM (test code = NA) 137 mmol/l 134.0-147.0 N POTASSIUM (test code = K) 4.3 mmol/L 3.6-5.2 N CHLORIDE (test code = CL) 103 mmol/l 98.0-107.0 N CARBON DIOXIDE (test code = CO2) 24.1 mmol/l 21.0-33.0 N ANION GAP (test code = GAP) 14.2 0-20 N GLUCOSE (test code = GLU) 110 mg/dl 70.0-110.0 N BLOOD UREA NITROGEN (test code = 19 mg/dl 7.0-18.0 H BUN) CREATININE (test code = CREAT) 1.10 mg/dL 0.60-1.30 N GFR NON BLACK (test code = 57 mL/min 95-105 L GFRNONBLACK) GFR BLACK (test code = GFRBLACK) 69 mL/min 115-127 L TOTAL PROTEIN (test code = PROT) 7.4 GM/DL 6.0-8.1 N ALBUMIN (test code = ALB) 3.2 gm/dL 3.2-4.7 N CALCIUM (test code = CA) 9.2 mg/dl 8.0-10.5 N BILIRUBIN TOTAL (test code = 0.2 mg/dl 0.0-1.0 N BILT) SGOT/AST (test code = AST) 11 Units/L 15-37 L SGPT/ALT (test code = ALT) 15 Units/L 12.0-78.0 N ALKALINE PHOSPHATASE TOTAL (test 134 Units/L 50.0-136.0 N code = ALKP) [id number] 21:26:00 Test Item Value Reference Range Interpretation Comments LIPASE (test code = LIP) 76 Units/L 65.0-230.0 N COMPREHENSIVE METABOLIC [id number] 21:19:00 Test Item Value Reference Range Interpretation Comments SODIUM (test code = NA) 137 mmol/l 134.0-147.0 N POTASSIUM (test code = K) 4.3 mmol/L 3.6-5.2 N CHLORIDE (test code = CL) 103 mmol/l 98.0-107.0 N CARBON DIOXIDE (test code = CO2) 24.1 mmol/l 21.0-33.0 N ANION GAP (test code = GAP) 14.2 0-20 N GLUCOSE (test code = GLU) mg/dl 70.0-110.0 BLOOD UREA NITROGEN (test code = mg/dl 7.0-18.0 BUN) CREATININE (test code = CREAT) mg/dL 0.60-1.30 GFR NON BLACK (test code = mL/min 95-105 GFRNONBLACK) GFR BLACK (test code = GFRBLACK) mL/min 115-127 TOTAL PROTEIN (test code = PROT) gm/dL 6.4-8.2 ALBUMIN (test code = ALB) gm/dl 3.2-4.7 CALCIUM (test code = CA) mg/dl 8.0-10.5 BILIRUBIN TOTAL (test code = mg/dl 0.0-1.0 BILT) SGOT/AST (test code = AST) Units/L 15-37 SGPT/ALT (test code = ALT) Units/L 12.0-78.0 ALKALINE PHOSPHATASE TOTAL (test Units/L 50.0-136.0 code = ALKP) [id number] 21:19:00 Test Item Value Reference Range Interpretation Comments LIPASE (test code = LIP) Units/L 65.0-230.0 CBC W/AUTO [id number] 21:10:00 Test Item Value Reference Range Interpretation Comments WHITE BLOOD CELL (test code = 8.0 K/mm3 4.5-11.0 N WBC) RED BLOOD CELL (test code = 4.45 M/mm3 3.80-5.20 N RBC) HEMOGLOBIN (test code = HGB) 12.1 gm/dL 12.0-16.0 N HEMATOCRIT (test code = HCT) 40.1 % 36.0-48.0 N MEAN CELL VOLUME (test code = 90.1 UM3 82.0-99.0 N MCV) MEAN CELL HGB (test code = MCH) 27.2 UUG 25.5-32.5 N MEAN CELL HGB CONCETRATION 30.2 gm/dL 29.0-35.5 N (test code = MCHC) RED CELL DISTRIBUTION WIDTH 13.8 % 11.5-15.0 N (test code = RDW) RED CELL DISTRIBUTION WIDTH SD 45.4 fL 34.8-50.2 N (test code = RDW-SD) PLATELET COUNT (test code = 260 K/mm3 150-400 N PLT) MEAN PLATELET VOLUME (test code 10.8 fl 7.4-10.4 H = MPV) NEUTROPHIL % (test code = NT%) 60.3 % 49.0-76.0 N IMMATURE GRANULOCYTE % (test 0.2 % 0.0-0.4 N code = IG%) LYMPHOCYTE % (test code = LY%) 27.1 % 23.0-38.0 N MONOCYTE % (test code = MO%) 7.8 % 1.0-10.0 N EOSINOPHIL % (test code = EO%) 4.2 % 1.0-5.0 N BASOPHIL % (test code = BA%) 0.4 % 0.0-1.0 N NUCLEATED RBC % (test code = 0.0 % 0.0-0.1 N NRBC%) NEUTROPHIL # (test code = NT#) 4.8 K/mm3 2.4-6.3 N IMMATURE GRANULOCYTE # (test 0.02 x10 3/uL 0.00-0.07 N code = IG#) LYMPHOCYTE # (test code = LY#) 2.2 K/mm3 1.2-4.0 N MONOCYTE # (test code = MO#) 0.6 K/mm3 0.0-0.6 N EOSINOPHIL # (test code = EO#) 0.3 K/MM3 0.0-0.7 N BASOPHIL # (test code = BA#) 0.0 K/mm3 0.0-0.2 N NUCLEATED RBC # (test code = 0.00 X10 3uL 0.00-0.01 N NRBC#) URINALYSIS [id number] 20:53:00 Test Item Value Reference Range Interpretation Comments UA COLOR (test code = COLU) YELLOW UA APPEARANCE (test code = CLEAR APPU) UA GLUCOSE DIPSTICK (test NORMAL mg/dl NORMAL code = DGLUU) UA BILIRUBIN DIPSTICK (test NEGATIVE mg/dL NEGATIVE code = BILU) UA KETONE DIPSTICK (test NEGATIVE mg/dl NEGATIVE code = KETU) UA SPECIFIC GRAVITY (test 1.010 1.000-1.030 code = SGU) UA BLOOD DIPSTICK (test NEGATIVE Jorge Alberto/micL NEGATIVE code = WINSTON) UA PH DIPSTICK (test code = 6.0 5.0-9.0 FOSTER) UA PROTEIN DIPSTICK (test NEGATIVE mg/dl NEGATIVE code = PROU) UA UROBILINIOGEN DIPSTICK NORMAL mg/dl NORMAL (test code = URO) UA NITRITE DIPSTICK (test NEGATIVE NEGATIVE code = SU) UA LEUKOCYTE ESTERASE NEGATIVE Debi/micL NEGATIVE DIPSTICK (test code = LEUU) UA WBC (test code = WBCU) 3-5 WBC/HPF NONE UA RBC (test code = RBCU) 0-2 RBC/HPF 0-3 UA EPITHELIAL CELLS (test 5-10 EPI/HPF 0-3 A code = EPIU) UA BACTERIA (test code = MANY NONE A BACU) UR HCG [id number] 20:53:00 Test Item Value Reference Range Interpretation Comments UR HCG QUAL (test code = HCGQLU) NEGATIVE NEGATIVE URINALYSIS [id number] 20:46:00 Test Item Value Reference Range Interpretation Comments UA COLOR (test code = COLU) YELLOW UA APPEARANCE (test code = CLEAR APPU) UA GLUCOSE DIPSTICK (test NORMAL mg/dl NORMAL code = DGLUU) UA BILIRUBIN DIPSTICK (test NEGATIVE mg/dL NEGATIVE code = BILU) UA KETONE DIPSTICK (test NEGATIVE mg/dl NEGATIVE code = KETU) UA SPECIFIC GRAVITY (test 1.010 1.000-1.030 code = SGU) UA BLOOD DIPSTICK (test NEGATIVE Jorge Alberto/micL NEGATIVE code = WINSTON) UA PH DIPSTICK (test code = 6.0 5.0-9.0 FOSTER) UA PROTEIN DIPSTICK (test NEGATIVE mg/dl NEGATIVE code = PROU) UA UROBILINIOGEN DIPSTICK NORMAL mg/dl NORMAL (test code = URO) UA NITRITE DIPSTICK (test NEGATIVE NEGATIVE code = SU) UA LEUKOCYTE ESTERASE NEGATIVE Debi/micL NEGATIVE DIPSTICK (test code = LEUU) UA WBC (test code = WBCU) WBC/HPF NONE UA RBC (test code = RBCU) RBC/HPF 0-3 UA EPITHELIAL CELLS (test EPI/HPF 0-3 code = EPIU) UA BACTERIA (test code = NONE BACU) UR HCG [id number] 20:46:00 Test Item Value Reference Range Interpretation Comments UR HCG QUAL (test code = HCGQLU) NEGATIVE NEGATIVE URINALYSIS [id number] 20:44:00 Test Item Value Reference Range Interpretation Comments UA COLOR (test code = COLU) YELLOW UA APPEARANCE (test code = CLEAR APPU) UA GLUCOSE DIPSTICK (test NORMAL mg/dl NORMAL code = DGLUU) UA BILIRUBIN DIPSTICK (test NEGATIVE mg/dL NEGATIVE code = BILU) UA KETONE DIPSTICK (test NEGATIVE mg/dl NEGATIVE code = KETU) UA SPECIFIC GRAVITY (test 1.010 1.000-1.030 code = SGU) UA BLOOD DIPSTICK (test NEGATIVE Jorge Alberto/micL NEGATIVE code = WINSTON) UA PH DIPSTICK (test code = 6.0 5.0-9.0 FOSTER) UA PROTEIN DIPSTICK (test NEGATIVE mg/dl NEGATIVE code = PROU) UA UROBILINIOGEN DIPSTICK NORMAL mg/dl NORMAL (test code = URO) UA NITRITE DIPSTICK (test NEGATIVE NEGATIVE code = SU) UA LEUKOCYTE ESTERASE NEGATIVE Debi/micL NEGATIVE DIPSTICK (test code = LEUU) UA WBC (test code = WBCU) WBC/HPF NONE UA RBC (test code = RBCU) RBC/HPF 0-3 UA EPITHELIAL CELLS (test EPI/HPF 0-3 code = EPIU) UA BACTERIA (test code = NONE BACU) UR HCG [id number] 20:44:00 Test Item Value Reference Range Interpretation Comments UR HCG QUAL (test code = HCGQLU) NEGATIVE - CT L-SPINE W/O [id number] 21:45:00 [facility] [place]: SEUN ASHBYILY HELLEN : 1975 Sex: F FAX: Tha Mcginnis DO [phone] [place]: [address] St: REG Name: LIANA ASHBY [facility] : 1975 Age/S: 45/F [address] [facility] Unit: [id number] Loc: E.ERS[address] [place], [place]: [place] [address] Acct: [id number] Dis Date: Status: REG ER PHONE #: [phone] Exam Date: 06/26/20202118 FAX #: Reason: Fell of a horse, pain down entire spine EXAMS: CPT CODE: [id number] CT L-SPINE W/O CONTRAST 34765 EXAM: CT LUMBAR SPINE WITHOUT CONTRAST INDICATION: Fell of a horse, pain down entire spine COMPARISON: None available TECHNIQUE: Axial CT imaging of the lumbar spine was obtained without administration of intravenous contrast. Sagittal and coronal reconstructions were submitted for review. IV contrast: None DLP: 771.40 mGy-cm FINDINGS: There are 5 nonrib-bearing lumbar vertebra. The vertebral bodies are normal in height, alignment and density. The facet joints and spinous processes are in normal alignment. There is mild disc height loss at L5-S1 bilaterally. The remaining intervertebral disc heights are normal. No spinal canal stenosis. Moderate neuroforaminal stenosis at L5-S1 bilaterally. The paraspinal soft tissues are normal. Imaged portion of the abdomen is unremarkable. IMPRESSION: No acute abnormality of the lumbar spine. 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 LOCATION: B2 This CT exam was performed according to our departmental dose optimization program, which includes automated exposure control, adjustment of the mA and or kV accordingto patient size and/or use of iterative reconstruction technique. at 2140 Reported and signed by: Jennifer Torre M.D. PAGE 1Signed Report (CONTINUED) FAX: Tha Mcginnis [phone] [place]: St: REG Name: LIANA ASHBY [facility] : 1975 Age/S: 45/F [address] [facility] Unit: [id number] Loc: [address] Phys: [place] [address] Acct: [id number] Dis Date: Status: REG ER PHONE #: [phone] Exam Date: 06/26/20202118 FAX #: [phone] Reason: Fell of a horse, pain down entire spine EXAMS: CPT CODE: [id number] CT L-SPINE W/O CONTRAST 37816 <Continued> CC: Tha Mcginnis DO Technologist: AKILA Bryant Dt/Tm: 06/26/2020 (2145) [email or web address] Orig Print D/T: S: 06/26/2020 (1267 PAGE 2 Signed ReportBASIC METABOLIC [id number] 21:31:00 Test Item Value Reference Range Interpretation Comments SODIUM (test code = NA) 133 mmol/l 134.0-147.0 L POTASSIUM (test code = K) 4.5 mmol/L 3.6-5.2 N CHLORIDE (test code = CL) 101 mmol/l 98.0-107.0 N CARBON DIOXIDE (test code = CO2) 23.9 mmol/l 21.0-33.0 N ANION GAP (test code = GAP) 12.6 0-20 N GLUCOSE (test code = GLU) 91 mg/dl 70.0-110.0 N BLOOD UREA NITROGEN (test code = 20 mg/dl 7.0-18.0 H BUN) CREATININE (test code = CREAT) 1.07 mg/dL 0.60-1.30 N GFR NON BLACK (test code = 59 mL/min 95-105 L GFRNONBLACK) GFR BLACK (test code = GFRBLACK) 71 mL/min 115-127 L CALCIUM (test code = CA) 8.6 mg/dl 8.0-10.5 N [id number] 21:31:00 Test Item Value Reference Range Interpretation Comments TROPONIN-I (test <0.02 NG/ML 0.00-0.06 N REFERENCE R BELINDA code = TROPI) TROPONIN I HEA LTHY INDIVIDUALS: <0 .06 ng/mL R/O ISCHE TUSHAR: 0.07 - 0.60 ng/ mL CUT-OFF RANGE F OR AMI: 0.60 - 1.5 ng/m L - CT T-SPINE W/O [id number] 21:27:00 [facility] : 1975 Sex: F FAX: Tha Mcginnis DO [phone] [place]: St: REG Name: LIANA ASHBY [facility] : 1975 Age/S: 45/F [address] [facility] Unit: [id number] Loc: E.ERS[address] [place], [place]: [place] [address] Acct: [id number] Dis Date: Status: REG ER PHONE #: [phone] Exam Date: 06/26/20202118 FAX #: [phone] Reason: Fell of a horse, pain down entire spine EXAMS: CPT CODE: [id number] CT T-SPINE W/OCONTRAST 32244 EXAM: CT THORACIC SPINE WITHOUT CONTRAST INDICATION: Fell of a horse, pain down entire spine COMPARISON: Radiographs dated May 07, 2020 TECHNIQUE: Axial CT imaging of the thoracic spine was obtained without administration of contrast. Sagittal and coronal reconstructed images weresubmitted for review.. IV contrast: None DLP: 585.73 mGy-cm FINDINGS: There is a sclerotic lesion involving the left transverse process and inferior facet of T9 which most likely represents a bone island. Otherwise, the vertebral bodies are normal in height, alignment and density. The facet joints andspinous processes are normal in alignment. The intervertebral disc heights are normal. No spinal canal or neuroforaminal stenosis is identified. The posterior paraspinal soft tissues are normal. The imaged portion of the chest and abdomen is unremarkable. IMPRESSION: No acute abnormality of the thoracic spine. LOCATION: B2 This CT exam was performed according to our departmental dose optimization program, which includes automated exposure control, adjustment of the mA and or kV according to patient size and/or use of iterative reconstruction technique. at 2127 Reported and signed by: Jennifer Torre M.D. PAGE 1 Signed Report (CONTINUED) FAX: Tha Mcginnis DO [phone] [place]: St: REG Name: LIANA ASHBY [facility] : 1975Age/S: 45/F [address] [facility] [employer] [facility] Unit: [id number] Loc: E[facility] [place], [place]: [place] [address] Acct: [id number] Dis Date: Status: REG ER PHONE #: [phone] Exam Date: 06/26/192118 FAX #: [phone] Reason: Fell of a horse, pain down entire spine EXAMS: CPT CODE: [id number] CT T-SPINE W/O CONTRAST 83548 <Continued> CC: Tha Mcginnis DO Technologist: AKILA Bryant Dt/Tm: 06/26/2020 (2126) [email or web address] Orig Print D/T: S: 06/26/2020 (0 PAGE 2 Signed Report- CT C-SPINE W/O [id number] 21:24:00 [facility] [place]: LIANA ASHBY : 1975 Sex: F FAX: Tha Mcginnis DO [phone] [place]: St: REG Name: LIANA ASHBY [facility] : 1975 Age/S: 45/F [address] [facility] Unit: [id number] Loc: E.ERS[address] [place], [place]: [place] [address] Acct: [id number] Dis Date: Status: REG ER PHONE #: [phone] Exam Date: 06/26/20202118 FAX #: Reason: Fell of a horse, pain down entire spine EXAMS: CPT CODE: [id number] CT C-SPINE W/OCONT 68175 EXAM: CT CERVICAL SPINE WITHOUT CONTRAST INDICATION: Fell from horse. Pain. COMPARISON: May 07, 2020 TECHNIQUE: Axial CT imaging of the cervical spine was obtained without administration of intravenous contrast. Coronal and sagittal reformatted images were submitted for review. IV contrast: None DLP: 482.53 mGy-cm FINDINGS: No acute fracture or subluxation is identified. The atlantoaxial and atlantooccipital articulations are normal. The vertebral bodies are normal in height and density. And there is straightening of the normal cervical lordosis. The facet joints and spinous processes are normal in alignment. There is loss of the intervertebral disc height throughout the cervical spine. No spinal canal stenosis. There is mild right neuroforaminal stenosis at C5-C6 and C6-C7. The prevertebral and posterior paraspinal soft tissues are normal. The skull base is normal. IMPRESSION: No acute abnormality of the cervical spine. Mild discogenic disease throughout the spine. Straightening of the normal cervical lordosis. Mild neuroforaminal stenosis at C5-C6 and C6-C7. LOCATION: B2 This CT exam was performed according to our departmental dose optimization program, which includes automated exposure control, adjustment of the mA and or kV according to patient size and/or use of iterative reconstruction technique. at 2124 Reported and signed by: Jennifer Torre M.D. PAGE 1 Signed Report (CONTINUED) FAX: Tha Mcginnis DO [phone] [place]: St: REG Name: LIANA ASHBY [facility] : 1975 Age/S: 45/F [address] [facility] [employer] [facility] Unit: [id number] Loc: [address] Phys: [place] [address] Acct: [id number] Dis Date: Status: REG ER PHONE #: [phone] Exam Date: 06/26/20202118 FAX #: [phone]: Fell of a horse, pain down entire spine EXAMS: CPT CODE: [id number] CT C-SPINE W/O CONT 34365 <Continued> CC: Tha Mcginnis DO Technologist: AKILA Bryant Dt/Tm: 06/26/2020 (2123) [email or web address] Orig Print D/T: S: 06/26/2020 (2126 PAGE 2 Signed Report- XR FOOT 3 + V [id number] 21:20:00 [facility] [place]: LIANA ASHBY : 1975 Sex: F FAX: Tha Mcginnis DO [phone] [place]: St: REG Name: LIANA ASHBY [facility] : 1975 Age/S: 45/F [address] [employer] [facility] Unit #: [id number] Loc: E.ERS[address] [place], [place] Phys: Tha Mcginnis [place] [address]Odqm: [id number] Dis Date: Status: REG ER PHONE #: [phone] Exam Date: 06/26/20202110 FAX #: [phone] Reason: Fell of a horse, pain down entire spine, Right EXAMS: CPT CODE: [id number] XR FOOT 3 + [place] [address] Right foot History: Fell of a horse, pain down entire spine, Right foot pain Comparison: December 26, 2019 Location: H45 Three views of the right foot are submitted. No acute fractures and no dislocations are identified. The soft tissues are unremarkable. IMPRESSION: Unremarkable exam. at 2119 Reported and signed by: Wang Candelario M.D. CC: Tha Mcginnis DO Technologist: AHSAN PORTILLO Trntnrd Date/Time/By: 06/26/2020 (2119) : By: [facility] PAGE 1 Signed Report FAX: Tha Mcginnis DO [phone] [place]: St: REG -- Name: LIANA ASHBY [facility] : 1975 Age/S: 45/F [address] [facility] Unit #: [id number] Loc: [address] Phys: [place] [id number] Acct: [id number] Dis Date: Status: REG ER PHONE #: [phone] Exam Date: 06/26/20202110 FAX #: [phone] Reason: Fell of a horse, pain down entire spine, Right EXAMS: CPT CODE: [id number] XR FOOT 3 + V RT [address]678 <Continued> Orig Print D/T: S: 06/26/2020 (2122) PAGE 2 Signed ReportBASIC METABOLIC [id number] 21:19:00 Test Item Value Reference Range Interpretation Comments SODIUM (test code = NA) 133 mmol/l 134.0-147.0 L POTASSIUM (test code = K) 4.5 mmol/L 3.6-5.2 N CHLORIDE (test code = CL) 101 mmol/l 98.0-107.0 N CARBON DIOXIDE (test code = CO2) 23.9 mmol/l 21.0-33.0 N ANION GAP (test code = GAP) 12.6 0-20 N GLUCOSE (test code = GLU) mg/dl 70.0-110.0 BLOOD UREA NITROGEN (test code = mg/dl 7.0-18.0 BUN) CREATININE (test code = CREAT) mg/dL 0.60-1.30 GFR NON BLACK (test code = mL/min 95-105 GFRNONBLACK) GFR BLACK (test code = GFRBLACK) mL/min 115-127 CALCIUM (test code = CA) mg/dl 8.0-10.5 [id number] 21:19:00 Test Item Value Reference Range Interpretation Comments TROPONIN-I (test code = TROPI) NG/ML 0.00-0.06 - XR CHEST 1 [id number] 21:17:00 [facility] [place]: [place] : 1975 Sex: F FAX: Tha Mcginnis DO [phone] [place]: [address]: REG Name: LIANA ASHBY [facility] : 1975 Age/S: 45/F [address] [facility] Unit #: [id number] Loc: [address] [place], [place]: [place] [address] Acct: [id number] Dis Date: Status: REG ER PHONE #: [phone] Exam Date: 06/26/20202110 FAX #: Reason: SOB EXAMS: CPT CODE: [id number] XR CHEST 1 V 93439 Chest Radiograph History: SOB Comparison: May 03, 2020 Location: H45 A single frontal view of the chest is submitted. The examis limited due to a large amount of overlying soft tissue. The heart appears unchanged in size. Pulmonary vasculature is unremarkable. The visualized lung ghotra appear to be free of disease. The bonesappear unchanged. IMPRESSION: There is no radiographic evidence of acute cardiopulmonary disease. at 7 Reported and signed by: Wang Candelario M.D. CC: Tha Mcginnis DO Technologist: AHSAN PORTILLO Trntnrd Date/Time/By: 06/26/2020 (2116) : By: MarisaPMT PAGE 1 Signed Report FAX: Tha Mcginnis DO [phone] [place]: St: REG -- Name: LIANA ASHBY [facility] : 1975 Age/S: 45/F [address] [facility] Unit #: [id number] Loc: JOSHUA [place], [place]: [place] [address] Acct: [id number] Dis Date: Status: REG ER PHONE #: [phone] Exam Date: 06/26/20202110 FAX #: [phone] Reason: SOB EXAMS: CPT CODE: [id number] XR CHEST 1 V 36768 <Continued> Orig Print D/T: S: 06/26/2020 (2119) PAGE 2 Signed ReportCBC W/AUTO [id number] 21:09:00 Test Item Value Reference Range Interpretation Comments WHITE BLOOD CELL (test code = 7.9 K/mm3 4.5-11.0 N WBC) RED BLOOD CELL (test code = 4.22 M/mm3 3.80-5.20 N RBC) HEMOGLOBIN (test code = HGB) 11.9 gm/dL 12.0-16.0 L HEMATOCRIT (test code = HCT) 39.1 % 36.0-48.0 N MEAN CELL VOLUME (test code = 92.7 UM3 82.0-99.0 N MCV) MEAN CELL HGB (test code = MCH) 28.2 UUG 25.5-32.5 N MEAN CELL HGB CONCETRATION 30.4 gm/dL 29.0-35.5 N (test code = MCHC) RED CELL DISTRIBUTION WIDTH 14.6 % 11.5-15.0 N (test code = RDW) RED CELL DISTRIBUTION WIDTH SD 49.4 fL 34.8-50.2 N (test code = RDW-SD) PLATELET COUNT (test code = 260 K/mm3 150-400 N PLT) MEAN PLATELET VOLUME (test code 11.2 fl 7.4-10.4 H = MPV) NEUTROPHIL % (test code = NT%) 60.9 % 49.0-76.0 N IMMATURE GRANULOCYTE % (test 0.4 % 0.0-0.4 N code = IG%) LYMPHOCYTE % (test code = LY%) 24.8 % 23.0-38.0 N MONOCYTE % (test code = MO%) 8.9 % 1.0-10.0 N EOSINOPHIL % (test code = EO%) 4.5 % 1.0-5.0 N BASOPHIL % (test code = BA%) 0.5 % 0.0-1.0 N NUCLEATED RBC % (test code = 0.0 % 0.0-0.1 N NRBC%) NEUTROPHIL # (test code = NT#) 4.8 K/mm3 2.4-6.3 N IMMATURE GRANULOCYTE # (test 0.03 x10 3/uL 0.00-0.07 N code = IG#) LYMPHOCYTE # (test code = LY#) 2.0 K/mm3 1.2-4.0 N MONOCYTE # (test code = MO#) 0.7 K/mm3 0.0-0.6 H EOSINOPHIL # (test code = EO#) 0.4 K/MM3 0.0-0.7 N BASOPHIL # (test code = BA#) 0.0 K/mm3 0.0-0.2 N NUCLEATED RBC # (test code = 0.00 X10 3uL 0.00-0.01 N NRBC#) BASIC METABOLIC [id number] 22:21:00 Test Item Value Reference Range Interpretation Comments SODIUM (test code = NA) 136 mmol/l 134.0-147.0 N POTASSIUM (test code = K) 4.3 mmol/L 3.6-5.2 N CHLORIDE (test code = CL) 102 mmol/l 98.0-107.0 N CARBON DIOXIDE (test code = CO2) 27.2 mmol/l 21.0-33.0 N ANION GAP (test code = GAP) 11.1 0-20 N GLUCOSE (test code = GLU) 90 mg/dl 70.0-110.0 N BLOOD UREA NITROGEN (test code = 19 mg/dl 7.0-18.0 H BUN) CREATININE (test code = CREAT) 1.02 mg/dL 0.60-1.30 N GFR NON BLACK (test code = 62 mL/min 95-105 L GFRNONBLACK) GFR BLACK (test code = GFRBLACK) 75 mL/min 115-127 L CALCIUM (test code = CA) 8.4 mg/dl 8.0-10.5 N HEPATIC FUNCTION PANEL [id number] 22:21:00 Test Item Value Reference Range Interpretation Comments TOTAL PROTEIN (test code = PROT) 6.6 GM/DL 6.0-8.1 N ALBUMIN (test code = ALB) 3.2 gm/dL 3.2-4.7 N BILIRUBIN TOTAL (test code = 0.1 mg/dl 0.0-1.0 N BILT) BILIRUBIN DIRECT (test code = <0.1 mg/dl 0.0-0.3 N BILD) SGOT/AST (test code = AST) 13 Units/L 15-37 L SGPT/ALT (test code = ALT) 15 Units/L 12.0-78.0 N ALKALINE PHOSPHATASE TOTAL (test 118 Units/L 50.0-136.0 N code = ALKP) [id number] 22:21:00 Test Item Value Reference Range Interpretation Comments LIPASE (test code = LIP) 48 Units/L 65.0-230.0 L BASIC METABOLIC [id number] 22:04:00 Test Item Value Reference Range Interpretation Comments SODIUM (test code = NA) 136 mmol/l 134.0-147.0 N POTASSIUM (test code = K) 4.3 mmol/L 3.6-5.2 N CHLORIDE (test code = CL) 102 mmol/l 98.0-107.0 N CARBON DIOXIDE (test code = CO2) 27.2 mmol/l 21.0-33.0 N ANION GAP (test code = GAP) 11.1 0-20 N GLUCOSE (test code = GLU) mg/dl 70.0-110.0 BLOOD UREA NITROGEN (test code = mg/dl 7.0-18.0 BUN) CREATININE (test code = CREAT) mg/dL 0.60-1.30 GFR NON BLACK (test code = mL/min 95-105 GFRNONBLACK) GFR BLACK (test code = GFRBLACK) mL/min 115-127 CALCIUM (test code = CA) mg/dl 8.0-10.5 HEPATIC FUNCTION PANEL [id number] 22:04:00 Test Item Value Reference Range Interpretation Comments TOTAL PROTEIN (test code = PROT) gm/dL 6.4-8.2 ALBUMIN (test code = ALB) gm/dl 3.2-4.7 BILIRUBIN TOTAL (test code = BILT) mg/dl 0.0-1.0 BILIRUBIN DIRECT (test code = BILD) mg/dl 0.0-0.3 SGOT/AST (test code = AST) Units/L 15-37 SGPT/ALT (test code = ALT) Units/L 12.0-78.0 ALKALINE PHOSPHATASE TOTAL (test Units/L 50.0-136.0 code = ALKP) [id number] 22:04:00 Test Item Value Reference Range Interpretation Comments LIPASE (test code = LIP) Units/L 65.0-230.0 URINALYSIS [id number] 22:01:00 Test Item Value Reference Range Interpretation Comments UA COLOR (test code = YELLOW COLU) UA APPEARANCE (test code CLEAR = APPU) UA GLUCOSE DIPSTICK (test NORMAL mg/dl NORMAL code = DGLUU) UA BILIRUBIN DIPSTICK NEGATIVE mg/dL NEGATIVE (test code = BILU) UA KETONE DIPSTICK (test NEGATIVE mg/dl NEGATIVE code = KETU) UA SPECIFIC GRAVITY (test 1.015 1.000-1.030 code = SGU) UA BLOOD DIPSTICK (test NEGATIVE Jorge Alberto/micL NEGATIVE code = WINSTON) UA PH DIPSTICK (test code 6.0 5.0-9.0 = FOSTER) UA PROTEIN DIPSTICK (test NEGATIVE mg/dl NEGATIVE code = PROU) UA UROBILINIOGEN DIPSTICK NORMAL mg/dl NORMAL (test code = URO) UA NITRITE DIPSTICK (test NEGATIVE NEGATIVE code = SU) UA LEUKOCYTE ESTERASE 25 Debi/micL Debi/micL NEGATIVE A DIPSTICK (test code = LEUU) UA WBC (test code = WBCU) 4-9 WBC/HPF NONE A UA RBC (test code = RBCU) 5-10 RBC/HPF 0-3 A UA EPITHELIAL CELLS (test 5-10 EPI/HPF 0-3 A code = EPIU) UA BACTERIA (test code = MANY NONE A BACU) UR HCG [id number] 22:01:00 Test Item Value Reference Range Interpretation Comments UR HCG QUAL (test code = HCGQLU) NEGATIVE NEGATIVE PROTHROMBIN [id number] 22:00:00 Test Item Value Reference Range Interpretation Comments PROTHROMBIN TIME 10.6 SECONDS 9.9-12.8 N PATIENT (test code = PTP) INTERNATIONAL NORMAL 0.9 0.89-1.14 N THE INR IS TO BE USED RATIO (test code = ONLY FOR MONITORING INR) ORAL ANTICOAGULANTTH ERAPY. THE FOLLOWING A RE SUGGESTED RANGE S FROM [facility] LE[facility] CHEST PHYSICIANS:KEDAR CATION INR VALUEPROPHY LAXIS OF VENOUS THROM BOSIS (ORTHOPEDIC ULI ANAND) 2.0 - 3.0PROPHY LAXIS OF VENOUS THROM BOSIS (OTHER THAN HIG H-RISK SURGERY) 2.0 - 3.0TREATMENT OF DEEP VEIN THROMBOSIS OR PULMONARY EMBOL ISM 2.0 - 3.0PREVENTION OF SYSTEMIC EMBOLI SM TISSUE HEART VA LVES 2.0 - 3.0 ACUTE MYOCARDIAL INFA RCTION (TO PREVENT SYS TEMIC EMBOLISM) 2.0 - 3.0 ACUTE MYOCARDIA L INFARCTION (TO PREVENT RECURRENT INFAR CT) 2.5 - 3.0 VALVULAR HEART DISEASE 2.0 - 3 .0 ATRIAL FIBRILAT ION 2.0 - 3.0BILEAFLET MECHANICAL VALV E IN AORTIC POSITION 2.0 - 3.0MECHANICAL PROSTHETIC VALV ES (HIGH RISK) 2.5 - 3.5PRESENCE OF LUPUS ANTICOAGULANT O R ANTIPHOSPHOLIPI D ANTIBODIES 2.5 - 3.5 Specimen comments: Clean CatchIs patient on anticoagulants? NCBC W/AUTO DIFF 2020-05-07 21:59:00 Test Item Value Reference Range Interpretation Comments WHITE BLOOD CELL (test code = 7.0 K/mm3 4.5-11.0 N WBC) RED BLOOD CELL (test code = 4.08 M/mm3 3.80-5.20 N RBC) HEMOGLOBIN (test code = HGB) 11.8 gm/dL 12.0-16.0 L HEMATOCRIT (test code = HCT) 37.6 % 36.0-48.0 N MEAN CELL VOLUME (test code = 92.2 UM3 82.0-99.0 N MCV) MEAN CELL HGB (test code = MCH) 28.9 UUG 25.5-32.5 N MEAN CELL HGB CONCETRATION 31.4 gm/dL 29.0-35.5 N (test code = MCHC) RED CELL DISTRIBUTION WIDTH 14.5 % 11.5-15.0 N (test code = RDW) RED CELL DISTRIBUTION WIDTH SD 48.6 fL 34.8-50.2 N (test code = RDW-SD) PLATELET COUNT (test code = 249 K/mm3 150-400 N PLT) MEAN PLATELET VOLUME (test code 10.7 fl 7.4-10.4 H = MPV) NEUTROPHIL % (test code = NT%) 60.5 % 49.0-76.0 N IMMATURE GRANULOCYTE % (test 0.4 % 0.0-0.4 N code = IG%) LYMPHOCYTE % (test code = LY%) 26.0 % 23.0-38.0 N MONOCYTE % (test code = MO%) 8.7 % 1.0-10.0 N EOSINOPHIL % (test code = EO%) 4.0 % 1.0-5.0 N BASOPHIL % (test code = BA%) 0.4 % 0.0-1.0 N NUCLEATED RBC % (test code = 0.0 % 0.0-0.1 N NRBC%) NEUTROPHIL # (test code = NT#) 4.2 K/mm3 2.4-6.3 N IMMATURE GRANULOCYTE # (test 0.03 x10 3/uL 0.00-0.07 N code = IG#) LYMPHOCYTE # (test code = LY#) 1.8 K/mm3 1.2-4.0 N MONOCYTE # (test code = MO#) 0.6 K/mm3 0.0-0.6 N EOSINOPHIL # (test code = EO#) 0.3 K/MM3 0.0-0.7 N BASOPHIL # (test code = BA#) 0.0 K/mm3 0.0-0.2 N NUCLEATED RBC # (test code = 0.00 X10 3uL 0.00-0.01 N NRBC#) URINALYSIS [id number] 21:57:00 Test Item Value Reference Range Interpretation Comments UA COLOR (test code = YELLOW COLU) UA APPEARANCE (test code CLEAR = APPU) UA GLUCOSE DIPSTICK (test NORMAL mg/dl NORMAL code = DGLUU) UA BILIRUBIN DIPSTICK NEGATIVE mg/dL NEGATIVE (test code = BILU) UA KETONE DIPSTICK (test NEGATIVE mg/dl NEGATIVE code = KETU) UA SPECIFIC GRAVITY (test 1.015 1.000-1.030 code = SGU) UA BLOOD DIPSTICK (test NEGATIVE Jorge Alberto/micL NEGATIVE code = WINSTON) UA PH DIPSTICK (test code 6.0 5.0-9.0 = FOSTER) UA PROTEIN DIPSTICK (test NEGATIVE mg/dl NEGATIVE code = PROU) UA UROBILINIOGEN DIPSTICK NORMAL mg/dl NORMAL (test code = URO) UA NITRITE DIPSTICK (test NEGATIVE NEGATIVE code = SU) UA LEUKOCYTE ESTERASE 25 Debi/micL Debi/micL NEGATIVE A DIPSTICK (test code = LEUU) UA WBC (test code = WBCU) WBC/HPF NONE UA RBC (test code = RBCU) RBC/HPF 0-3 UA EPITHELIAL CELLS (test EPI/HPF 0-3 code = EPIU) UA BACTERIA (test code = NONE BACU) UR HCG [id number] 21:57:00 Test Item Value Reference Range Interpretation Comments UR HCG QUAL (test code = HCGQLU) NEGATIVE NEGATIVE URINALYSIS [id number] 21:51:00 Test Item Value Reference Range Interpretation Comments UA COLOR (test code = YELLOW COLU) UA APPEARANCE (test code CLEAR = APPU) UA GLUCOSE DIPSTICK (test NORMAL mg/dl NORMAL code = DGLUU) UA BILIRUBIN DIPSTICK NEGATIVE mg/dL NEGATIVE (test code = BILU) UA KETONE DIPSTICK (test NEGATIVE mg/dl NEGATIVE code = KETU) UA SPECIFIC GRAVITY (test 1.015 1.000-1.030 code = SGU) UA BLOOD DIPSTICK (test NEGATIVE Jorge Alberto/micL NEGATIVE code = WINSTON) UA PH DIPSTICK (test code 6.0 5.0-9.0 = FOSTER) UA PROTEIN DIPSTICK (test NEGATIVE mg/dl NEGATIVE code = PROU) UA UROBILINIOGEN DIPSTICK NORMAL mg/dl NORMAL (test code = URO) UA NITRITE DIPSTICK (test NEGATIVE NEGATIVE code = SU) UA LEUKOCYTE ESTERASE 25 Debi/micL Debi/micL NEGATIVE A DIPSTICK (test code = LEUU) UA WBC (test code = WBCU) WBC/HPF NONE UA RBC (test code = RBCU) RBC/HPF 0-3 UA EPITHELIAL CELLS (test EPI/HPF 0-3 code = EPIU) UA BACTERIA (test code = NONE BACU) UR HCG [id number] 21:51:00 Test Item Value Reference Range Interpretation Comments UR HCG QUAL (test code = HCGQLU) NEGATIVE - CT C-SPINE W/O [id number] 21:37:00 [facility] [place]: L[place]NA A[place] : 1975 Sex: F FAX: Ruth Ann Brennan MD [phone] [place]: St: REG Name: LIANA ASHBY [facility] : 1975 Age/S: 45/F [address] [address] Unit: [id number] Loc: [address] Phys: [place] [address] Acct: [id number] Dis Date: Status: REG ER PHONE #: [phone] Exam Date: 05/07/20202109 FAX #: Reason: FALL, WITH PAIN EXAMS: CPT CODE: [id number] CT C-SPINE W/O CONT 40638 CT cervicalspine without contrast. Location: Clinical indication:45-year-old with fall injury and pain Comparison:None Technique: Computed axial images were obtained through the cervical spine without IV contra st. Bone algorithm reconstructions were reviewed in the axial, sagittal, and coronal planes. Up to date CT equipment and radiation dose reduction technique were utilized. Findings: The occipitoatlantaland atlantoaxial articulations have expected alignment. The dens is intact. There is mild loss of lower cervical disc height, most pronounced at C5-C6 and C6-C7. There is minimal endplate osteophytosisat these levels. Vertebral bodies have expected height and alignment. No osseous narrowing of the exit foramina or central canal. Pulmonary apices are clear. Thyroid is normal. Mastoid air cells are well-aerated. Impression: 1. No acute fracture or malalignment. 2. Mild degenerative disc disease within the lower cervical spine. at 2137 Reported and signed by: Mac Dodson M.D. : Ruth Ann Brennan MD Technologist: JHOAN OWENS; KARSON BLOOM; KERVIN WATTS Trnscrd Dt/Tm: 05/07/2020 (2136) [email or web address] Orig Print D/T: S: 020 (2139 PAGE 1 Signed Report- XR L-SPINE 2/3 [id number] 21:36:00 [facility] [place]: L[place]NA ASH[place] : 1975 Sex: F FAX: Ruth Ann Brennan MD [phone] [place]: St: REG Name: LIANA ASHBY [facility] : 1975 Age/S: 45/F [address] [facility] Unit #: [id number] Loc: [address]ERS[address] [place], [place]: [place] [address] Acct: [id number] Dis Date: Status: REG ER PHONE #: [phone] Exam Date: 05/07/20202121 FAX #: [phone] Reason: FALL, WITH PAIN EXAMS: CPT CODE: [id number] XR L-SPINE 2/3 VIEWS 41651 EXAM: Thoracic spine, 3 views Lumbar spine, 3 views Location code:J9 HISTORY: FALL, WITH PAIN COMPARISON: None available FINDINGS: There is no acute fracture or dislocation. the soft tissues are unremarkable..Mild degenerative disc disease in the lower lumbar spine. IMPRESSION: No acute findings. at 2135 Reported and signed by: Vance Rivera M.D. CC: Ruth Ann Brennan MD Technologist: KERVIN WATTS Trnscrd Date/Time/By: 05/07/2020 (2135): By: [email or web address] PAGE 1 Signed Report FAX: Ruth Ann Brennan MD [phone] [place]: St: REG--------- Name: LIANA ASHBY [facility] : 1975 Age/S: 45/F [address] [facility] Unit #: [id number] Loc: [address] Phys: [place] [address] Acct: [id number] Dis Date: Status: REG ER PHONE #: [phone] Exam Date: 05/07/20202121 FAX #: [phone] Reason: FALL, WITH PAIN EXAMS: CPT CODE: [id number] XR L-SPINE 2/3 VIEWS 74630 <Continued> Orig Print D/T: S: 05/07/2020 (2138) PAGE 2 Signed Report- XR T-SPINE 3 [id number] 21:36:00 [facility] [place] A[place] : 1975 Sex: F FAX: Ruth Ann Brennan MD [phone] [place]: St: REG Name: LIANA ASHBY [facility] : 1975 Age/S: 45/F [address] [employer] [facility] Unit #: [id number] Loc: [address] Phys: [place] [address] Acct: [id number] Dis Date: Status: REG ER PHONE #: [phone] Exam Date: 05/07/20202121 FAX #: [phone] Reason: FALL, WITH PAIN EXAMS: CPT CODE: [id number] XR T-SPINE 3 VIEWS 61631 EXAM: Thoracic spine, 3 views Lumbar spine, 3 views Location code:J9 HISTORY: FALL, WITH PAIN COMPARISON: None available FINDINGS: There is no acute fracture or dislocation. the soft tissues are unremarkable.. Mild degenerative disc disease in the lower lumbar spine. IMPRESSION: No acute findings. at 2136 Reported and signed by: Vance Rivera M.D. CC: Ruth Ann Brennan MD Technologist: KERVIN WATTS Trnscrd Date/Time/By: 05/07/2020 (2135) : By: [email or web address] PAGE 1 Signed Report FAX: Ruth Ann Brennan MD [phone] [place]: St: REG Name: LIANA ASHBY [facility] : 1975 Age/S: 45/F [address] [employer] Unit #: [id number] Loc: [address] Phys: [place] [address] Acct: [id number] Dis Date: Status: REG ER PHONE #: [phone] Exam Date: 05/07/20202121 FAX #: [phone] Reason: FALL, WITH PAIN EXAMS: CPT CODE: [id number] XR T-SPINE 3 VIEWS 73682 <Continued> Orig Print D/T: S: 05/07/2020 (0809) PAGE 2 SignedReport- CT HEAD/BRAIN W/O [id number] 21:27:00[facility] [place]: [place] : 1975 Sex: F FAX: Ruth Ann Brennan MD [phone] [place]: St: REG Name: LIANA ASHBY [facility] : 1975 Age[facility]S: 45/F [address] Unit: [id number] Loc: E.ERS2 [place], [place]: [place] [address] Acct: [id number] Dis Date: Status: REG ER PHONE #: [phone] Exam Date: 05/07/20202109 FAX #: Reason: FALL, WITH PAIN EXAMS: CPT CODE: [id number] CT HEAD/BRAIN W/O CONT 04546 Exam: CTof the brain without contrast. History: Fall with pain Technique: Contiguous axial CT images were obtained from the skull base through the vertex without contrast. One or more of the following dose reduction techniques were used: Automated exposure control, adjustment of the mA and/or kV according topatient size, and/or utilization of iterative reconstruction technique. Comparison: None Location: R16 Findings: The ventricles and sulci are normal in size and symmetric. The basal cisterns are patent. There is no mass effect or midline shift. There is no acute intracranial hemorrhage. There are no extra-axial fluid collections. Paranasal sinuses and mastoid air cells are clear. Impression: No CT evidence of an acute intracranial hemorrhage or significant mass effect at 212 Reported and signed by: Heidi Mixon M.D. CC: Ruth Ann Brennan MD Technologist: JHOAN OWENS; KARSON BLOOM; KERVIN WATTS Trnscrd Dt/Tm: 05/07/2020 (2126) [email or web address] Orig Print D/T: S: 05/07/2020 (2129 PAGE 1 Signed ReportCOMPREHENSIVE METABOLIC [id number] 20:13:00 Test Item Value Reference Range Interpretation Comments SODIUM (test code = NA) 135 mmol/l 134.0-147.0 N POTASSIUM (test code = K) 4.3 mmol/L 3.6-5.2 N CHLORIDE (test code = CL) 100 mmol/l 98.0-107.0 N CARBON DIOXIDE (test code = CO2) 30.2 mmol/l 21.0-33.0 N ANION GAP (test code = GAP) 9.1 0-20 N GLUCOSE (test code = GLU) 88 mg/dl 70.0-110.0 N BLOOD UREA NITROGEN (test code = 14 mg/dl 7.0-18.0 N BUN) CREATININE (test code = CREAT) 1.02 mg/dL 0.60-1.30 N GFR NON BLACK (test code = 62 mL/min 95-105 L GFRNONBLACK) GFR BLACK (test code = GFRBLACK) 75 mL/min 115-127 L TOTAL PROTEIN (test code = PROT) 7.7 gm/dL 6.4-8.2 N ALBUMIN (test code = ALB) 3.7 gm/dl 3.2-4.7 N CALCIUM (test code = CA) 8.9 mg/dl 8.0-10.5 N BILIRUBIN TOTAL (test code = 0.1 mg/dl 0.0-1.0 N BILT) SGOT/AST (test code = AST) 14 Units/L 15-37 L SGPT/ALT (test code = ALT) 20 Units/L 12.0-78.0 N ALKALINE PHOSPHATASE TOTAL (test 119 Units/L 50.0-136.0 N code = ALKP) CARDIAC ENZYMES [id number] 20:13:00 Test Item Value Reference Range Interpretation Comments CREATINE KINASE (CK) 110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 count (count/volume) 2020-01-02 15:30:00 Test Item Value Reference Range Interpretation Comments Basophils # (Auto) (test code = 704-7) 0.0 0.0-0.1 [facility]ballFluoroscopic procedure less than one hour gajbsivh4232-11-84 15:30:00 Test Item Value Reference Range Interpretation Comments Absolute Immature Granulocyte (auto 0.05 0-0.1 (test code = Absolute Immature Granulocyte (auto) [facility] leukocytes automated count (number/volume)2020-01-02 15:30:00 Test Item Value Reference Range Interpretation Comments White Blood Count (test code = 6690-2) 9.86 4.8-10.8 [facility] erythrocytes automated count (number/volume)2020-01-02 15:30:00 Test Item Value Reference Range Interpretation Comments Red Blood Count (test code = 789-8) 4.49 3.6-5.1 [facility] hemoglobin measurement (moles/volume) 2020-01-02 15:30:00 Test Item Value Reference Range Interpretation Comments Hemoglobin (test code = 50066-8) 12.2 12.0-16.0 [facility] blood hematocrit (volume fraction) 2020-01-02 15:30:00 Test Item Value Reference Range Interpretation Comments Hematocrit (test code = 4544-3) 39.8 34.2-44.1 [facility] erythrocyte mean corpuscular volume 2020-01-02 15:30:00 Test Item Value Reference Range Interpretation Comments Mean Corpuscular Volume (test code = 88.6 81-99 787-2) [facility] erythrocyte mean corpuscular hemoglobin (mass per erythrocyte)2020-01-02 15:30:00 Test Item Value Reference Range Interpretation Comments Mean Corpuscular Hemoglobin (test code 27.2 28-32 = 785-6) [facility] erythrocyte mean corpuscular hemoglobin concentration measurement (mass/volume)2020-01-02 15:30:00 Test Item Value Reference Range Interpretation Comments Mean Corpuscular Hemoglobin Concent 30.7 31-35 (test code = 786-4) [facility] TomballRDW KckIx-Qyh4533-92-16 15:30:00 Test Item Value Reference Range Interpretation Comments Red Cell Distribution Width (test code 15.0 11.7-14.4 = 12907-1) [facility] blood platelet count (count/volume) 2020-01-02 15:30:00 Test Item Value Reference Range Interpretation Comments Platelet Count (test code = 777-3) 288 140-360 [facility]ballAutom[facility] blood segmented neutrophil count as percentage of total fmvimdabiy3579-25-57 15:30:00 Test Item Value Reference Range Interpretation Comments Neutrophils (%) (Auto) (test code = 68.5 38.7-80.0 19441-0) [facility]ball[facility] blood lymphocyte count as percentage ot total [id number] 15:30:00 Test Item Value Reference Range Interpretation Comments Lymphocytes (%) (Auto) (test code = 21.4 18.0-39.1 736-9) [facility] monocyte count as percentage of total [id number] 15:30:00 Test Item Value Reference Range Interpretation Comments Monocytes (%) (Auto) (test code = 6.3 4.4-11.3 5905-5) [facility]ball[facility] blood eosinophil count as percentage of total [id number] 15:30:00 Test Item Value Reference Range Interpretation Comments Eosinophils (%) (Auto) (test code = 3.0 0.0-6.0 713-8) [facility]ball[facility] blood basophil count as percentage of total zirffwvbjd4732-98-36 15:30:00 Test Item Value Reference Range Interpretation Comments Basophils (%) (Auto) (test code = 0.3 0.0-1.0 706-2) [facility] TomballFluoroscopic procedure less than one hour wwsyjzhp6524-09-11 15:30:00 Test Item Value Reference Range Interpretation Comments IM GRANULOCYTES % (test code = IM 0.5 0.0-1.0 GRANULOCYTES %) [facility]ballAutomated blood neutrophil [id number] 15:30:00 Test Item Value Reference Range Interpretation Comments Neutrophils # (Auto) (test code = 6.8 2.1-6.9 751-8) [facility]ballBlood lymphocytes count (number/volume) 2020-01-02 15:30:00 Test Item Value Reference Range Interpretation Comments Lymphocytes # (Auto) (test code = 2.1 1.0-3.2 43405-7) [facility]ballBlood monocytes automated count (number/volume)2020-01-02 15:30:00 Test Item Value Reference Range Interpretation Comments Monocytes # (Auto) (test code = 742-7) 0.6 0.2-0.8 [facility]ballAutomated blood eosinophil [id number] 15:30:00 Test Item Value Reference Range Interpretation Comments Eosinophils # (Auto) (test code = 0.3 0.0-0.4 711-2) [facility]ballAutomated blood basophil count (count/volume) 2020-01-02 15:30:00 Test Item Value Reference Range Interpretation Comments Basophils # (Auto) (test code = 704-7) 0.0 0.0-0.1 [facility]ballFluoroscopic procedure less than one hour [id number] 15:30:00 Test Item Value Reference Range Interpretation Comments Absolute Immature Granulocyte (auto 0.05 0-0.1 (test code = Absolute Immature Granulocyte (auto) [facility] TomballDRUGS OF ABUSE SCREEN [id number] 01:43:00 Test Item Value Reference Range Interpretation Comments UA PH DIPSTICK (test 6.0 5.0-8.0 code = FOSTER) URN COCAINE (test NEGATIVE <300 ng/mL code = COCAURN) URN CANNABINOIDS NEGATIVE <50 ng/mL (test code = CANNABURN) URN AMPHETAMINE (test NEGATIVE <1000 ng/mL code = AMPHETURN) URN BARBITURATE (test NEGATIVE <200 ng/mL code = BARBITURN) URN BENZODIAZEPINE NEGATIVE <200 ng/mL (test code = BENZOURN) URN OPIATES (test POSITIVE <300 ng/mL A This test provides only a code = OPIATURN) preliminary test result. A morespecific alternate chemical method must be used in order t oobtain a confirmed adrian tical result. Gas chromatography/ mass spectrometry (G C/MS) is thepreferred co nfirmatory method. Other c hemical confirmationmet hods are available. Clin ical consideration a nd professional ju dgment should be appli ed to any drug of abusete st result, particularly wh en preliminary pos itive resultsare used.Unconfirme d screening resul ts must not be used fornon-medical purposes (e.g., employme nt testing, legalt esting). URN PHENCYCLIDINE NEGATIVE <25 ng/mL (PCP) (test code = PHENCURN) URN METHADONE (test NEGATIVE <300 ng/mL code = METHAURN) BASIC METABOLIC [id number] 01:33:00 Test Item Value Reference Range Interpretation Comments SODIUM (test code = 139 mmol/L 136-145 N NA) POTASSIUM (test code 4.1 mmol/L 3.5-5.1 N = K) CHLORIDE (test code = 111.0 mmol/L 98-107 H CL) CARBON DIOXIDE (test 21.0 mmol/L 21-32 N code = CO2) ANION GAP (test code 11.1 10-20 N = GAP) GLUCOSE (test code = 98 mg/dL 74-106 N GLU) BLOOD UREA NITROGEN 21 mg/dL 7-18 H (test code = BUN) GLOMERULAR FILTRATION 49 mL/min >=60 Estima kody GFR by RATE (test code = using Heather fied MDRD GFR) formula.Chronic kidney disease is defined as eith er kidney damageor GFR <60 mL/min/1.73 m2 for >3 months. CREATININE (test code 1.20 mg/dL 0.55-1.02 H Note change in = CREAT) reference range due to change in reagent. BUN/CREATININE RATIO 17.2 10-20 N (test code = BUN/CREA) CALCIUM (test code = 8.4 mg/dL 8.5-10.1 L CA) HEPATIC FUNCTION [id number] 01:33:00 Test Item Value Reference Range Interpretation Comments TOTAL PROTEIN (test 6.6 gram/dL 6.4-8.2 N code = PROT) ALBUMIN (test code = 2.7 g/dL 3.4-5.0 L ALB) GLOBULIN (test code = 3.9 gram/dL 2.7-4.2 N GLOB) ALBUMIN/GLOBULIN RATIO 0.7 0.75-1.50 L (test code = A/G) BILIRUBIN TOTAL (test 0.20 mg/dL 0.0-1.0 N code = BILT) BILIRUBIN DIRECT (test 0.06 mg/dL 0.0-0.20 N code = BILD) SGOT/AST (test code = 12 IUnit/L 15-37 L AST) SGPT/ALT (test code = 18 IUnit/L 12-78 N ALT) ALKALINE PHOSPHATASE 147 IUnit/L 45-117 H Note change in TOTAL (test code = reference range due ALKP) to change in reagent. [id number] 01:33:00 Test Item Value Reference Range Interpretation Comments LIPASE (test code = LIP) 38 U/L 73.0-393.0 L HCG SERUM [id number] 01:33:00 Test Item Value Reference Range Interpretation Comments HCG SERUM QUAL (test NEGATIVE NEGATIVE This HC GQL test is NOT code = HCGQL) applicable for MALE patients.Check with nurse about probable order error.If Tumor Marker Test needed, nu rse should order test "HCG TU"(Test #550.80585)---- - [id number] 01:33:00 Test Item Value Reference Range Interpretation Comments TROPONIN-I (test code = TROPI) <0.015 ng/mL 0-0.045 N BASIC METABOLIC [id number] 01:22:00 Test Item Value Reference Range Interpretation Comments SODIUM (test code = NA) 139 mmol/L 136-145 N POTASSIUM (test code = K) 4.1 mmol/L 3.5-5.1 N CHLORIDE (test code = CL) 111.0 mmol/L 98-107 H CARBON DIOXIDE (test code = CO2) mmol/L 21-32 ANION GAP (test code = GAP) 10-20 GLUCOSE (test code = GLU) mg/dL 74-106 BLOOD UREA NITROGEN (test code = mg/dL 7-18 BUN) GLOMERULAR FILTRATION RATE (test mL/min >=60 code = GFR) CREATININE (test code = CREAT) mg/dL 0.55-1.02 BUN/CREATININE RATIO (test code 10-20 = BUN/CREA) CALCIUM (test code = CA) mg/dL 8.5-10.1 HEPATIC FUNCTION [id number] 01:22:00 Test Item Value Reference Range Interpretation Comments TOTAL PROTEIN (test code = PROT) gram/dL 6.4-8.2 ALBUMIN (test code = ALB) g/dL 3.4-5.0 GLOBULIN (test code = GLOB) gram/dL 2.7-4.2 ALBUMIN/GLOBULIN RATIO (test code = 0.75-1.50 A/G) BILIRUBIN TOTAL (test code = BILT) mg/dL 0.0-1.0 BILIRUBIN DIRECT (test code = BILD) mg/dL 0.0-0.20 SGOT/AST (test code = AST) IUnit/L 15-37 SGPT/ALT (test code = ALT) IUnit/L 12-78 ALKALINE PHOSPHATASE TOTAL (test IUnit/L 45-117 code = ALKP) [id number] 01:22:00 Test Item Value Reference Range Interpretation Comments LIPASE (test code = LIP) U/L 73.0-393.0 HCG SERUM [id number] 01:22:00 Test Item Value Reference Range Interpretation Comments HCG SERUM QUAL (test NEGATIVE NEGATIVE This HC GQL test is NOT code = HCGQL) applicable for MALE patients.Check with nurse about probable order error.If Tumor Marker Test needed, nu rse should order test "HCG TU"(Test #550.02982)---- - [id number] 01:22:00 Test Item Value Reference Range Interpretation Comments TROPONIN-I (test code = TROPI) ng/mL 0-0.045 BASIC METABOLIC [id number] 01:21:00 Test Item Value Reference Range Interpretation Comments SODIUM (test code = NA) mmol/L 136-145 POTASSIUM (test code = K) mmol/L 3.5-5.1 CHLORIDE (test code = CL) mmol/L 98-107 CARBON DIOXIDE (test code = CO2) mmol/L 21-32 ANION GAP (test code = GAP) 10-20 GLUCOSE (test code = GLU) mg/dL 74-106 BLOOD UREA NITROGEN (test code = BUN) mg/dL 7-18 GLOMERULAR FILTRATION RATE (test code mL/min >=60 = GFR) CREATININE (test code = CREAT) mg/dL 0.55-1.02 BUN/CREATININE RATIO (test code = 10-20 BUN/CREA) CALCIUM (test code = CA) mg/dL 8.5-10.1 HEPATIC FUNCTION [id number] 01:21:00 Test Item Value Reference Range Interpretation Comments TOTAL PROTEIN (test code = PROT) gram/dL 6.4-8.2 ALBUMIN (test code = ALB) g/dL 3.4-5.0 GLOBULIN (test code = GLOB) gram/dL 2.7-4.2 ALBUMIN/GLOBULIN RATIO (test code = 0.75-1.50 A/G) BILIRUBIN TOTAL (test code = BILT) mg/dL 0.0-1.0 BILIRUBIN DIRECT (test code = BILD) mg/dL 0.0-0.20 SGOT/AST (test code = AST) IUnit/L 15-37 SGPT/ALT (test code = ALT) IUnit/L 12-78 ALKALINE PHOSPHATASE TOTAL (test IUnit/L 45-117 code = ALKP) [id number] 01:21:00 Test Item Value Reference Range Interpretation Comments LIPASE (test code = LIP) U/L 73.0-393.0 HCG SERUM [id number] 01:21:00 Test Item Value Reference Range Interpretation Comments HCG SERUM QUAL (test NEGATIVE NEGATIVE This HC GQL test is NOT code = HCGQL) applicable for MALE patients.Check with nurse about probable order error.If Tumor Marker Test needed, nu rse should order test "HCG TU"(Test #550.29116)---- - [id number] 01:21:00 Test Item Value Reference Range Interpretation Comments TROPONIN-I (test code = TROPI) ng/mL 0-0.045 URINALYSIS [id number] 01:18:00 Test Item Value Reference Range Interpretation Comments UA COLOR (test code = Light-Yellow YELLOW COLU) UA APPEARANCE (test code CLEAR CLEAR = APPU) UA GLUCOSE DIPSTICK (test NEGATIVE mg/dL NEGATIVE code = DGLUU) UA BILIRUBIN DIPSTICK NEGATIVE mg/dL NEGATIVE (test code = BILU) UA KETONE DIPSTICK (test NEGATIVE mg/dL NEGATIVE code = KETU) UA SPECIFIC GRAVITY (test 1.025 1.001-1.035 code = SGU) UA BLOOD DIPSTICK (test Negative mg/dL NEGATIVE code = WINSTON) UA PH DIPSTICK (test code 5.5 5.0-8.0 = FOSTER) UA PROTEIN DIPSTICK (test NEGATIVE mg/dL NEGATIVE code = PROU) UA UROBILINIOGEN DIPSTICK Normal mg/dL NEGATIVE (test code = URO) UA NITRITE DIPSTICK (test NEGATIVE NEGATIVE code = SU) UA LEUKOCYTE ESTERASE W 25 Debi/uL (Trace) NEGATIVE A REFLEX (test code = Debi/uL LEUUR) UA WBC (test code = WBCU) 0-5 per HPF 0-5 UA RBC (test code = RBCU) 0-2 #/HPF 0-5 UA EPITHELIAL CELLS (test FEW per HPF FEW code = EPIU) UA BACTERIA (test code = NONE SEEN #/HPF NONE BACU) UA HYALINE CAST (test 3-5 #/LPF 0-5 code = HYALU) UA MUCUS (test code = FEW #/LPF FEW MUCU) Urine Source? CatheterURINALYSIS [id number] 01:17:00 Test Item Value Reference Range Interpretation Comments UA COLOR (test code = Light-Yellow YELLOW COLU) UA APPEARANCE (test code CLEAR CLEAR = APPU) UA GLUCOSE DIPSTICK (test NEGATIVE mg/dL NEGATIVE code = DGLUU) UA BILIRUBIN DIPSTICK NEGATIVE mg/dL NEGATIVE (test code = BILU) UA KETONE DIPSTICK (test NEGATIVE mg/dL NEGATIVE code = KETU) UA SPECIFIC GRAVITY (test 1.025 1.001-1.035 code = SGU) UA BLOOD DIPSTICK (test Negative mg/dL NEGATIVE code = WINSTON) UA PH DIPSTICK (test code 5.5 5.0-8.0 = FOSTER) UA PROTEIN DIPSTICK (test NEGATIVE mg/dL NEGATIVE code = PROU) UA UROBILINIOGEN DIPSTICK Normal mg/dL NEGATIVE (test code = URO) UA NITRITE DIPSTICK (test NEGATIVE NEGATIVE code = SU) UA LEUKOCYTE ESTERASE W 25 Debi/uL (Trace) NEGATIVE A REFLEX (test code = Debi/uL LEUUR) UA WBC (test code = WBCU) per HPF 0-5 UA RBC (test code = RBCU) per HPF 0-5 UA EPITHELIAL CELLS (test per HPF Few code = EPIU) UA BACTERIA (test code = per HPF NONE BACU) Urine Source? CatheterDRUGS OF ABUSE SCREEN [id number] 01:09:00 Test Item Value Reference Range Interpretation Comments UA PH DIPSTICK (test code = FOSTER) 6.0 5.0-8.0 URN COCAINE (test code = COCAURN) <300 ng/mL URN CANNABINOIDS (test code = <50 ng/mL CANNABURN) URN AMPHETAMINE (test code = AMPHETURN) <1000 ng/mL URN BARBITURATE (test code = BARBITURN) <200 ng/mL URN BENZODIAZEPINE (test code = <200 ng/mL BENZOURN) URN OPIATES (test code = OPIATURN) <300 ng/mL URN PHENCYCLIDINE (PCP) (test code = <25 ng/mL PHENCURN) URN METHADONE (test code = METHAURN) <300 ng/mL - XR ANKLE 3 + V [id number] 00:00:00 FAX: Walker Austin NP [phone] [place]: B St: REG Name: LIANA SHORE [facility] : 1975 Age/S:44/F [address] Unit #: [id number] Loc: [place] [address] Phys: Walker Austin NP Acct: [id number] Dis Date: Status: REG ER PHONE #: [phone] Exam Date: 12/26/2019 2349 FAX #: Reason: FALL EXAMS: CPT CODE: [id number] XR ANKLE 3 + V RT 49454 EXAM: - XR FOOT 3 + V RT, -XR ANKLE 3 + V RT LOCATION: H57 HISTORY: 44 years-year old Female with FALL COMPARISON: None available time of interpretation. FINDINGS: Frontal, oblique, and lateral views of the right foot and ankle are provided. No acute fracture or malalignment. The mortise is congruent. No soft tissue findings are apparent. No ankle joint effusion. IMPRESSION: No acute fracture or dislocation of the right foot and ankle. at 0000 Reported and signed by: Too Olmedo M.D. CC: Walker Austin NP Technologist: Mac SMITH(R) Trnscrd Date/Time/By: 12/27/2019 (0000) : By: [email or web address] Orig Print D/T: S: 12/27/2019 (0003) PAGE 1 Signed Report- XR FOOT 3 + V [id number] 00:00:00 FAX: Walker Austin NP [phone] [place]: B St: REG Name: LIANA SHORE [facility] : 1975 Age/S:44/F [address] Unit #: [id number] Loc: [place] [address] Phys: Walker Austin HOOP PUNCHER Acct: [id number] Dis Date: Status: REG ER PHONE #: [phone] Exam Date: 12/26/2019 2340 FAX #: [phone] Reason: FALL EXAMS: CPT CODE: [id number] XR FOOT 3 + V RT [id number] EXAM: - XR FOOT 3 + V RT, - XR ANKLE 3 + V RT LOCATION: H57 HISTORY: 44 years-year old Female with FALL COMPARISON: None availabletime of interpretation. FINDINGS: Frontal, oblique, and lateral views of the right foot and ankle are provided. No acute fracture or malalignment. The mortise is congruent. No soft tissue findings are apparent. No ankle joint effusion. IMPRESSION: No acute fracture or dislocation of the right foot and ankle. at 0000 Reported and signed by: Too Olmedo M.D. CC: Walker Austin NP Technologist: Mac Fountain RT(R) Trnscrd Date/Time/By: 12/27/2019 (0000) : By: [email or web address] Orig Print D/T: S: 12/27/2019 (0003) PAGE 1 Signed ReportURINALYSIS [id number] 23:57:00 Test Item Value Reference Range Interpretation Comments UA COLOR (test code = YELLOW YELLOW COLU) UA APPEARANCE (test code CLEAR CLEAR = APPU) UA GLUCOSE DIPSTICK (test NEGATIVE mg/dL NEGATIVE code = DGLUU) UA BILIRUBIN DIPSTICK NEGATIVE mg/dL NEGATIVE (test code = BILU) UA KETONE DIPSTICK (test NEGATIVE mg/dL NEGATIVE code = KETU) UA SPECIFIC GRAVITY (test 1.029 1.001-1.035 code = SGU) UA BLOOD DIPSTICK (test Negative mg/dL NEGATIVE code = WINSTON) UA PH DIPSTICK (test code 5.5 5.0-8.0 = FOSTER) UA PROTEIN DIPSTICK (test 10 (Trace) mg/dL NEGATIVE A code = PROU) UA UROBILINIOGEN DIPSTICK 2.0 (1+) mg/dL NEGATIVE A (test code = URO) UA NITRITE DIPSTICK (test NEGATIVE NEGATIVE code = SU) UA LEUKOCYTE ESTERASE W 25 Debi/uL (Trace) NEGATIVE A REFLEX (test code = Debi/uL LEUUR) UA WBC (test code = WBCU) 6-10 per HPF 0-5 A UA RBC (test code = RBCU) 6-10 #/HPF 0-5 A UA EPITHELIAL CELLS (test MOD per HPF FEW code = EPIU) UA BACTERIA (test code = FEW #/HPF NONE A BACU) UA HYALINE CAST (test 6-10 #/LPF 0-5 A code = HYALU) UA MUCUS (test code = FEW #/LPF FEW MUCU) Urine Source? Clean Catch- XR CHEST 1 [id number] 23:55:00 FAX: Walker Austin NP [phone] [place]: St: REG Name: SILVIANOLIANA MACEDO [facility] : 1975 Age/S:44/F [address] Unit #: [id number] Loc: [place] [address] Phys: Walker Austin [employer]CHER Acct: [id number] Dis Date: Status: REG ER PHONE #: [phone] Exam Date: 12/26/2019 2342 FAX #: [phone] Reason: FALL EXAMS: CPT CODE: [id number] XR CHEST 1 V 69828 HISTORY: Fall Location: C3 COMPARISON:None FINDINGS: Heart size and vascularity are within normal limits. The lungs are clear of focal consolidation. No effusion, pneumothorax, or acute osseous abnormality. IMPRESSION: 1. No focal cons olidation. No other acute abnormalities identified. at 8183 Reported and signed by: Mac Cantu MD CC: Walker Austin HO[employer] PUNCHER Technologist: Mac Fountain RT(R) Trnscrd Date/Time/By: 12/26/2019 (1629) : By: [email or web address] Orig Print D/T: S: 12/26/2019 (7260) PAGE 1 Signed ReportCBC W/O [id number] 23:00:00 Test Item Value Reference Range Interpretation Comments WHITE BLOOD CELL (test code = 9.4 K/mm3 4.5-12.5 N WBC) RED BLOOD CELL (test code = 4.91 mill/mm3 3.7-5.2 N RBC) HEMOGLOBIN (test code = HGB) 13.8 gram/dL 11.5-15.5 N HEMATOCRIT (test code = HCT) 44.1 % 36.0-46.0 N MEAN CELL VOLUME (test code = 89.8 fL 80-98 N MCV) MEAN CELL HGB (test code = MCH) 28.1 picogram 27.0-33.0 N MEAN CELL HGB CONCETRATION 31.3 gram/dL 33.0-36.0 L (test code = MCHC) RED CELL DISTRIBUTION WIDTH 14.8 % 11.6-16.2 N (test code = RDW) PLATELET COUNT (test code = 321 K/mm3 150-450 N PLT) MEAN PLATELET VOLUME (test code 11.4 fL 6.7-11.0 H = MPV) CBC W/O [id number] 22:59:00 Test Item Value Reference Range Interpretation Comments WHITE BLOOD CELL (test code = K/mm3 4.5-12.5 WBC) RED BLOOD CELL (test code = RBC) mill/mm3 3.7-5.2 HEMOGLOBIN (test code = HGB) 13.8 gram/dL 11.5-15.5 N HEMATOCRIT (test code = HCT) 44.1 % 36.0-46.0 N MEAN CELL VOLUME (test code = fL 80-98 MCV) MEAN CELL HGB (test code = MCH) picogram 27.0-33.0 MEAN CELL HGB CONCETRATION (test gram/dL 33.0-36.0 code = MCHC) RED CELL DISTRIBUTION WIDTH % 11.6-16.2 (test code = RDW) PLATELET COUNT (test code = PLT) 321 K/mm3 150-450 N MEAN PLATELET VOLUME (test code fL 6.7-11.0 = MPV) XR FOOT 3+ VW [id number] 19:13:47 Small toe proximal phalanx fracture, subacute. EXAM: XR ANKLE 3+ VW RIGHT, EXAM: XR FOOT 3+ VW RIGHT HISTORY: right ankle pain COMPARISON: 08/07/2018 right ankle radiographs FINDINGS: Imaging of the ankle and foot demonstrates cortical impaction through thearticular base of the small toe proximal phalanx with cystic bonyresorption. Minimal calcaneal enthesophyte formation is seen. The anklemortise isanatomic. Dystrophic pretibial soft tissue calcifications arepresent. [facility], Radiant Results Inft User - 12/24/2019 2:14 PM CDTEXAM:XR ANKLE 3+ VW RIGHT,EXAM:XR FOOT 3+ VW RIGHTHISTORY:right ankle pain COMPARISON:08/07/2018 right ankle radiographsFINDINGS: Imaging of the ankle and foot demonstrates cortical impaction through thearticular base of the small toe proximal phalanx with cystic bonyresorption. Minimal calcaneal enthesophyte formation is seen. The anklemortise is anatomic. Dystrophic pretibial soft tissue calcifications arepresent.IMPRESSIONSmall toe proximal phalanx fracture, [facility]acute.[facility] [id number] 19:13:47 Small toe proximal phalanx fracture, subacute. EXAM: XR ANKLE 3+ VW RIGHT, EXAM: XR FOOT 3+ VW RIGHT HISTORY: right ankle pain COMPARISON: 08/07/2018 right ankle radiographs FINDINGS: Imaging of the ankle and foot demonstrates cortical impaction through thearticular base of the small toe proximal phalanx with cystic bonyresorption. Minimal calcaneal enthesophyte formation is seen. The anklemortise isanatomic. Dystrophic pretibial soft tissue calcifications arepresent. [facility], Radiant Results Inft User - 12/24/2019 2:14 PM CDTEXAM:XR ANKLE 3+ VW RIGHT,EXAM:XR FOOT 3+ VW RIGHTHISTORY:right ankle pain COMPARISON:08/07/2018 right ankle radiographsFINDINGS: Imaging of the ankle and foot demonstrates cortical impaction through thearticular base of the small toe proximal phalanx with cystic bonyresorption. Minimal calcaneal enthesophyte formation is seen. The anklemortise is anatomic. Dystrophic pretibial soft tissue calcifications arepresent.IMPRESSIONSmall toe proximal phalanx fracture, subacute.[facility] BranchFO[facility] RIGHT [id number] 22:42:00 [place] [address] Patient Name: LIANA ASHBY MR #: [id number] : 1975 Age/Sex: 44/F Req #: [id number] Adm Physician: Ordered by: TOO HOLBROOK MD Report #: [id number] Location: ER Room/Bed: Procedure: [id number] DX/FOOT RIGHT COMPLETE Exam Date: 12/23/19 Exam Time: 2202 REPORT STATUS: Signed X-ray right foot 3 views HISTORY: Pain. COMPARISON: Radiograph dated 12/23/2019 FINDINGS: Unchanged minimally displaced fractures at the bases of the proximal fourth and fifth phalanges. Unchanged alignment. Adjacent soft tissue swelling. No new fractures. IMPRESSION: 1. Unchanged minimally displaced fractures at the bases of the fourth and fifth proximal phalanges of the right foot. 2. No new fracture or dislocation. Signed by: Michael Finch MD on 12/23/2019 10:47 PM Dictated By: MICHAEL FINCH MD 46 Transcribed By: SHILA on 12/23/192246 COPY TO: TOO HOLBROOK MDFOOT RIGHT [id number] 17:47:00 [facility] [address] [place] [address] PatientName: LIANA ASHBY MR #: [id number] : 1975 Age/Sex: 44/F Req #: [id number] Adm Physician: Ordered by: VASILE LU MD Report #: [id number] Location: ER Room/Bed: Procedure: [id number] DX/FOOT RIGHT COMPLETE Exam Date: 12/19/19 Exam Time: 1600 REPORT STATUS: Signed X-ray 3 views of the right foot. HISTORY: Foot pain after trauma. COMPARISON: None available. FINDINGS: Bones/joints: There are mildly displaced fractures of the fourth and fifth proximal phalangeal bases with intra-articular extension. No evidence of dislocation. Soft tissues: There is regional soft tissue swelling around the fractures. IMPRESSION: Mildly displaced fractures of the 4th and 5th proximal phalangeal bases with intra- articular extension. No evidence of dislocation. Signed by: Michael Shepard MD on 12/19/2019 5:49 PM Dictated By: MICHAEL SHEPARD MD 48 Transcribed By: SHILA on 12/19/191748 COPY TO: VASILE LU MDAutomated reticulocyte count as percentage of total [id number] 05:05:00 Test Item Value Reference Range Interpretation Comments Percent Reticulocyte Count (test code = 1.3 0.8-2.2 33444-5) [facility] (mass/volume)2019-12-09 05:05:00 Test Item Value Reference Range Interpretation Comments Iron Level (test code = 2498-4) 31 50-170 [facility] iron binding capacity measurement (mass/volume)2019-12-09 05:05:00 Test Item Value Reference Range Interpretation Comments Total Iron Binding Capacity (test code 406 261-478 = 2500-7) [facility] iron saturation measurement (mass fraction)2019-12-09 05:05:00 Test Item Value Reference Range Interpretation Comments Percent Iron Saturation (test code = 8 15-50 2502-3) [facility] plasma transferrin measurement (mass/volume)2019-12-09 05:05:00 Test Item Value Reference Range Interpretation Comments Transferrin (test code = 3034-6) 290 180-382 [facility] cobalamin (vitamin B12) measurement (mass/volume)2019-12-09 05:05:00 Test Item Value Reference Range Interpretation Comments Vitamin B12 Level (test code = 77530-6) 438 213816 [facility]ballAutomated reticulocyte count as percentage of total [id number] 05:05:00 Test Item Value Reference Range Interpretation Comments Percent Reticulocyte Count (test code = 1.3 0.8-2.2 49002-5) [facility] iron measurement (mass/volume)2019-12-09 05:05:00 Test Item Value Reference Range Interpretation Comments Iron Level (test code = 2498-4) 31 50-170 [facility] iron binding capacity measurement (mass/volume)2019-12-09 05:05:00 Test Item Value Reference Range Interpretation Comments Total Iron Binding Capacity (test code 406 261-478 = 2500-7) [facility] iron saturation measurement (mass fraction)2019-12-09 05:05:00 Test Item Value Reference Range Interpretation Comments Percent Iron Saturation (test code = 8 15-50 2502-3) [facility] transferrin [facility] (mass/volume)2019-12-09 05:05:00 Test Item Value Reference Range Interpretation Comments Transferrin (test code = 3034-6) 290 180-382 [facility] B12[facility] (mass/volume)2019-12-09 05:05:00 Test Item Value Reference Range Interpretation Comments Vitamin B12 Level (test code = 76186-5) 438 213-816 [facility] reticulocyte count as percentage of total [id number] 05:05:00 Test Item Value Reference Range Interpretation Comments Percent Reticulocyte Count (test code = 1.3 0.8-2.2 94871-1) [facility] (mass/volume)2019-12-09 05:05:00 Test Item Value Reference Range Interpretation Comments Iron Level (test code = 2498-4) 31 50-170 [facility] iron binding capacity measurement (mass/volume)2019-12-09 05:05:00 Test Item Value Reference Range Interpretation Comments Total Iron Binding Capacity (test code 406 991-352 = 2500-7) [facility] iron saturation measurement (mass fraction)2019-12-09 05:05:00 Test Item Value Reference Range Interpretation Comments Percent Iron Saturation (test code = 8 15-50 2502-3) [facility] transferrin measurement (mass/volume)2019-12-09 05:05:00 Test Item Value Reference Range Interpretation Comments Transferrin (test code = 3034-6) 290 180-382 [facility]obal[facility] (vitamin B12) measurement (mass/volume)2019-12-09 05:05:00 Test Item Value Reference Range Interpretation Comments Vitamin B12 Level (test code = 80304-4) 438 213-816 [facility]ballAutomated reticulocyte count as percentage of total iaakcbwdrotj0723-58-62 05:05:00 Test Item Value Reference Range Interpretation Comments Percent Reticulocyte Count (test code = 1.3 0.8-2.2 98690-0) [facility] iron [facility] (mass/volume)2019-12-09 05:05:00 Test Item Value Reference Range Interpretation Comments Iron Level (test code = 2498-4) 31 50-170 [facility] iron binding capacity measurement (mass/volume)2019-12-09 05:05:00 Test Item Value Reference Range Interpretation Comments Total Iron Binding Capacity (test code 406 261-478 = 2500-7) [facility] iron saturation measurement (mass fraction)2019-12-09 05:05:00 Test Item Value Reference Range Interpretation Comments Percent Iron Saturation (test code = 8 15-50 2502-3) [facility] transferrin measurement (mass/volume)2019-12-09 05:05:00 Test Item Value Reference Range Interpretation Comments Transferrin (test code = 3034-6) 290 180-382 [facility] cobalamin (vitamin B12) measurement (mass/volume)2019-12-09 05:05:00 Test Item Value Reference Range Interpretation Comments Vitamin B12 Level (test code = 25364-3) 438 213-816 [facility]ballAutomated reticulocyte count as percentage of total [id number] 05:05:00 Test Item Value Reference Range Interpretation Comments Percent Reticulocyte Count (test code = 1.3 0.8-2.2 81887-9) [facility] iron measurement (mass/volume)2019-12-09 05:05:00 Test Item Value Reference Range Interpretation Comments Iron Level (test code = 2498-4) 31 50-170 [facility] iron binding capacity measurement (mass/volume)2019-12-09 05:05:00 Test Item Value Reference Range Interpretation Comments Total Iron Binding Capacity (test code 406 261-478 = 2500-7) [facility] iron saturation measurement (mass fraction)2019-12-09 05:05:00 Test Item Value Reference Range Interpretation Comments Percent Iron Saturation (test code = 8 15-50 2502-3) [facility] transferrin measurement (mass/volume)2019-12-09 05:05:00 Test Item Value Reference Range Interpretation Comments Transferrin (test code = 3034-6) 290 180-382 [facility]ball[facility] cobalamin (vitamin B12) measurement (mass/volume)2019-12-09 05:05:00 Test Item Value Reference Range Interpretation Comments Vitamin B12 Level (test code = 87662-2) 438 213-816 [facility]ballAutomated reticulocyte count as percentage of total wjvbomjxnwoa8612-25-09 05:05:00 Test Item Value Reference Range Interpretation Comments Percent Reticulocyte Count (test code = 1.3 0.8-2.2 45895-4) [facility] iron [facility] (mass/volume)2019-12-09 05:05:00 Test Item Value Reference Range Interpretation Comments Iron Level (test code = 2498-4) 31 50-170 [facility] iron binding capacity measurement (mass/volume)2019-12-09 05:05:00 Test Item Value Reference Range Interpretation Comments Total Iron Binding Capacity (test code 406 261-688 = 2500-7) [facility] iron saturation measurement (mass fraction)2019-12-09 05:05:00 Test Item Value Reference Range Interpretation Comments Percent Iron Saturation (test code = 8 15-50 2502-3) [facility] transferrin measurement (mass/volume)2019-12-09 05:05:00 Test Item Value Reference Range Interpretation Comments Transferrin (test code = 3034-6) 290 180-382 [facility]ball[facility] cobalamin (vitamin B12) measurement (mass/volume)2019-12-09 05:05:00 Test Item Value Reference Range Interpretation Comments Vitamin B12 Level (test code = 65785-4) 438 213-816 [facility]ballBlood hemoglobin measurement (moles/volume) 2019-12-08 05:00:00 Test Item Value Reference Range Interpretation Comments Hemoglobin (test code = 83781-3) 11.0 12.0-16.0 [facility]ballAutomated blood hematocrit (volume fraction) 2019-12-08 05:00:00 Test Item Value Reference Range Interpretation Comments Hematocrit (test code = 4544-3) 33.7 34.2-44.1 [facility] sodium measurement (moles/volume)2019-12-08 05:00:00 Test Item Value Reference Range Interpretation Comments Sodium Level (test code = 2951-2) 139 136-145 [facility] potassium measurement (moles/volume)2019-12-08 05:00:00 Test Item Value Reference Range Interpretation Comments Potassium Level (test code = 2823-3) 4.2 3.5-5.1 [facility] chloride measurement (moles/volume)2019-12-08 05:00:00 Test Item Value Reference Range Interpretation Comments Chloride Level (test code = 2075-0) 109 98-107 [facility] carbon dioxide, total measurement (moles/volume)2019-12-08 05:00:00 Test Item Value Reference Range Interpretation Comments Carbon Dioxide Level (test code = 8-9) [facility] anion [id number] 05:00:00 Test Item Value Reference Range Interpretation Comments Anion Gap (test code = 71828-8) 11.2 8-16 [facility] urea nitrogen measurement (mass/volume)2019-12-08 05:00:00 Test Item Value Reference Range Interpretation Comments Blood Urea Nitrogen (test code = 8 12-11 3094-0) [facility] creatinine measurement (mass/volume)2019-12-08 05:00:00 Test Item Value Reference Range Interpretation Comments Creatinine (test code = 2160-0) 0.79 0.57-1.11 [facility] urea nitrogen/creatinine mass [id number] 05:00:00 Test Item Value Reference Range Interpretation Comments BUN/Creatinine Ratio (test code = 11-10 3097-3) [facility]ballEstimated glomerular filtration rate (GFR) [id number] 05:00:00 Test Item Value Reference Range Interpretation Comments Estimat Glomerular Filtration Rate > 60 >60 (test code = 999616975) Ranges were taken from the National Kidney Disease Education Program and the National Kidney Foundation literature.Reference ranges:60 or greater: Vizcpi45- 59 (for 3 consecutive months): Chronic kidneydisease 15 or less: Kidney failure [facility] TomballGlucose [id number] 05:00:00 Test Item Value Reference Range Interpretation Comments Glucose Level (test code = NMP7666) 76 74-118 [facility] calcium measurement (mass/volume)2019-12-08 05:00:00 Test Item Value Reference Range Interpretation Comments Calcium Level (test code = 70462-4) 8.3 8.4-10.2 [facility] total bilirubin measurement (mass/volume)2019-12-08 05:00:00 Test Item Value Reference Range Interpretation Comments Total Bilirubin (test code = 1975-2) 0.4 0.2-1.2 [facility] TomballFluoroscopic procedure less than one hour [id number] 05:00:00 Test Item Value Reference Range Interpretation Comments Aspartate Amino Transf (AST/SGOT) (test 20 5-34 code = Aspartate Amino Transf (AST/SGOT)) [facility] alanine aminotransferase measurement (enzymatic activity/volume)2019-12-08 05:00:00 Test Item Value Reference Range Interpretation Comments Alanine Aminotransferase (ALT/SGPT) 22 0-55 (test code = 1742-6) [facility] protein measurement (mass/volume)2019-12-08 05:00:00 Test Item Value Reference Range Interpretation Comments Total Protein (test code = 2885-2) 5.7 6.5-8.1 [facility] albumin measurement (mass/volume)2019-12-08 05:00:00 Test Item Value Reference Range Interpretation Comments Albumin (test code = 1751-7) 2.7 3.5-5.0 [facility] TomballPlasma globulin measurement (mass/volume) 2019-12-08 05:00:00 Test Item Value Reference Range Interpretation Comments Globulin (test code = 26032-6) 3.0 2.3-3.5 [facility] albumin/globulin mass ratio 2019-12-08 05:00:00 Test Item Value Reference Range Interpretation Comments Albumin/Globulin Ratio (test code = 0.9 0.8-2.0 1759-0) [facility] plasma alkaline phosphatase measurement (enzymatic activity/volume)2019-12-08 05:00:00 Test Item Value Reference Range Interpretation Comments Alkaline Phosphatase (test code = 103 40-150 6768-6) [facility]ballBlood hemoglobin measurement (moles/volume) 2019-12-08 05:00:00 Test Item Value Reference Range Interpretation Comments Hemoglobin (test code = 25690-1) 11.0 12.0-16.0 [facility]ballAutomated blood hematocrit (volume fraction) 2019-12-08 05:00:00 Test Item Value Reference Range Interpretation Comments Hematocrit (test code = 4544-3) 33.7 34.2-44.1 [facility] sodium measurement (moles/volume)2019-12-08 05:00:00 Test Item Value Reference Range Interpretation Comments Sodium Level (test code = 2951-2) 139 136-145 [facility] plasma potassium measurement (moles/volume)2019-12-08 05:00:00 Test Item Value Reference Range Interpretation Comments Potassium Level (test code = 2823-3) 4.2 3.5-5.1 [facility] chloride measurement (moles/volume)2019-12-08 05:00:00 Test Item Value Reference Range Interpretation Comments Chloride Level (test code = 2075-0) 109 98-107 [facility] plasma carbon dioxide, total measurement (moles/volume)2019-12-08 05:00:00 Test Item Value Reference Range Interpretation Comments Carbon Dioxide Level (test code = 8-9) [facility] anion [id number] 05:00:00 Test Item Value Reference Range Interpretation Comments Anion Gap (test code = 63625-2) 11.2 8-16 [facility] urea nitrogen measurement (mass/volume)2019-12-08 05:00:00 Test Item Value Reference Range Interpretation Comments Blood Urea Nitrogen (test code = 8 12-11 3094-0) [facility] creatinine measurement (mass/volume)2019-12-08 05:00:00 Test Item Value Reference Range Interpretation Comments Creatinine (test code = 2160-0) 0.79 0.57-1.11 [facility] urea nitrogen/creatinine mass [id number] 05:00:00 Test Item Value Reference Range Interpretation Comments BUN/Creatinine Ratio (test code = 11-10 3097-3) [facility]ballEstimated glomerular filtration rate (GFR) rnhoguokrcutl1918-60-09 05:00:00 Test Item Value Reference Range Interpretation Comments Estimat Glomerular Filtration Rate > 60 >60 (test code = 639545058) Ranges were taken from the National Kidney Disease Education Program and the National Kidney Foundation literature.Reference ranges:60 or greater: Oobjdp58- 59 (for 3 consecutive months): Chronic kidneydisease 15 or less: Kidney failure [facility] TomballGlucose [id number] 05:00:00 Test Item Value Reference Range Interpretation Comments Glucose Level (test code = LNQ4670) 76 74-118 [facility] calcium measurement (mass/volume)2019-12-08 05:00:00 Test Item Value Reference Range Interpretation Comments Calcium Level (test code = 86160-7) 8.3 8.4-10.2 [facility] total bilirubin measurement (mass/volume)2019-12-08 05:00:00 Test Item Value Reference Range Interpretation Comments Total Bilirubin (test code = 1975-2) 0.4 0.2-1.2 [facility] TomballFluoroscopic procedure less than one hour [id number] 05:00:00 Test Item Value Reference Range Interpretation Comments Aspartate Amino Transf (AST/SGOT) (test 20 5-34 code = Aspartate Amino Transf (AST/SGOT)) [facility] alanine aminotransferase measurement (enzymatic activity/volume)2019-12-08 05:00:00 Test Item Value Reference Range Interpretation Comments Alanine Aminotransferase (ALT/SGPT) 22 0-55 (test code = 1742-6) [facility] protein measurement (mass/volume)2019-12-08 05:00:00 Test Item Value Reference Range Interpretation Comments Total Protein (test code = 2885-2) 5.7 6.5-8.1 [facility] albumin measurement (mass/volume)2019-12-08 05:00:00 Test Item Value Reference Range Interpretation Comments Albumin (test code = 1751-7) 2.7 3.5-5.0 [facility]ballPlasma globulin measurement (mass/volume) 2019-12-08 05:00:00 Test Item Value Reference Range Interpretation Comments Globulin (test code = 49509-0) 3.0 2.3-3.5 [facility] albumin/globulin mass ratio 2019-12-08 05:00:00 Test Item Value Reference Range Interpretation Comments Albumin/Globulin Ratio (test code = 0.9 0.8-2.0 1759-0) [facility] alkaline phosphatase measurement (enzymatic activity/volume)2019-12-08 05:00:00 Test Item Value Reference Range Interpretation Comments Alkaline Phosphatase (test code = 103 40-150 6768-6) [facility]ball[facility] hemoglobin measurement (moles/volume) 2019-12-08 05:00:00 Test Item Value Reference Range Interpretation Comments Hemoglobin (test code = 63062-7) 11.0 12.0-16.0 [facility]ballAutomated blood hematocrit (volume fraction) 2019-12-08 05:00:00 Test Item Value Reference Range Interpretation Comments Hematocrit (test code = 4544-3) 33.7 34.2-44.1 [facility] sodium measurement (moles/volume)2019-12-08 05:00:00 Test Item Value Reference Range Interpretation Comments Sodium Level (test code = 2951-2) 139 136-145 [facility] potassium measurement (moles/volume)2019-12-08 05:00:00 Test Item Value Reference Range Interpretation Comments Potassium Level (test code = 2823-3) 4.2 3.5-5.1 [facility] chloride measurement (moles/volume)2019-12-08 05:00:00 Test Item Value Reference Range Interpretation Comments Chloride Level (test code = 2075-0) 109 98-107 [facility] plasma carbon dioxide, total measurement (moles/volume)2019-12-08 05:00:00 Test Item Value Reference Range Interpretation Comments Carbon Dioxide Level (test code = -8-9) [facility] anion [id number] 05:00:00 Test Item Value Reference Range Interpretation Comments Anion Gap (test code = 51506-7) 11.2 8-16 [facility] urea nitrogen measurement (mass/volume)2019-12-08 05:00:00 Test Item Value Reference Range Interpretation Comments Blood Urea Nitrogen (test code = 8 12-11 3094-0) [facility] creatinine measurement (mass/volume)2019-12-08 05:00:00 Test Item Value Reference Range Interpretation Comments Creatinine (test code = 2160-0) 0.79 0.57-1.11 [facility] urea nitrogen/creatinine mass [id number] 05:00:00 Test Item Value Reference Range Interpretation Comments BUN/Creatinine Ratio (test code = 10 11-10 3097-3) [facility]ballEstimated glomerular filtration rate (GFR) [id number] 05:00:00 Test Item Value Reference Range Interpretation Comments Estimat Glomerular Filtration Rate > 60 >60 (test code = 373916594) Ranges were taken from the National Kidney Disease Education Program and the National Kidney Foundation literature.Reference ranges:60 or greater: Mcvtft10- 59 (for 3 consecutive months): Chronic kidneydisease 15 or less: Kidney failure [facility]ballGlucose riytkapuofv6411-21-73 05:00:00 Test Item Value Reference Range Interpretation Comments Glucose Level (test code = CHK3047) 76 74-118 [facility] calcium measurement (mass/volume)2019-12-08 05:00:00 Test Item Value Reference Range Interpretation Comments Calcium Level (test code = 16345-7) 8.3 8.4-10.2 [facility] total bilirubin measurement (mass/volume)2019-12-08 05:00:00 Test Item Value Reference Range Interpretation Comments Total Bilirubin (test code = 1975-2) 0.4 0.2-1.2 [facility] TomballFluoroscopic procedure less than one hour [id number] 05:00:00 Test Item Value Reference Range Interpretation Comments Aspartate Amino Transf (AST/SGOT) (test 20 code = Aspartate Amino Transf (AST/SGOT)) [facility] alanine aminotransferase measurement (enzymatic activity/volume)2019-12-08 05:00:00 Test Item Value Reference Range Interpretation Comments Alanine Aminotransferase (ALT/SGPT) 22 0-55 (test code = 1742-6) [facility] protein measurement (mass/volume)2019-12-08 05:00:00 Test Item Value Reference Range Interpretation Comments Total Protein (test code = 2885-2) 5.7 6.5-8.1 [facility] albumin measurement (mass/volume)2019-12-08 05:00:00 Test Item Value Reference Range Interpretation Comments Albumin (test code = 1751-7) 2.7 3.5-5.0 [facility]ballPlasma globulin measurement (mass/volume) 2019-12-08 05:00:00 Test Item Value Reference Range Interpretation Comments Globulin (test code = 73390-6) 3.0 2.3-3.5 [facility] albumin/globulin mass ratio 2019-12-08 05:00:00 Test Item Value Reference Range Interpretation Comments Albumin/Globulin Ratio (test code = 0.9 0.8-2.0 1759-0) [facility] alkaline phosphatase measurement (enzymatic activity/volume)2019-12-08 05:00:00 Test Item Value Reference Range Interpretation Comments Alkaline Phosphatase (test code = 103 40-150 6768-6) [facility]ballBlood hemoglobin measurement (moles/volume) 2019-12-08 05:00:00 Test Item Value Reference Range Interpretation Comments Hemoglobin (test code = 89250-9) 11.0 12.0-16.0 [facility]ballAutomated blood hematocrit (volume fraction) 2019-12-08 05:00:00 Test Item Value Reference Range Interpretation Comments Hematocrit (test code = 4544-3) 33.7 34.2-44.1 [facility] sodium measurement (moles/volume)2019-12-08 05:00:00 Test Item Value Reference Range Interpretation Comments Sodium Level (test code = 2951-2) 139 136-145 [facility] potassium measurement (moles/volume)2019-12-08 05:00:00 Test Item Value Reference Range Interpretation Comments Potassium Level (test code = 2823-3) 4.2 3.5-5.1 [facility] chloride measurement (moles/volume)2019-12-08 05:00:00 Test Item Value Reference Range Interpretation Comments Chloride Level (test code = 2075-0) 109 98-107 [facility] carbon dioxide, total measurement (moles/volume)2019-12-08 05:00:00 Test Item Value Reference Range Interpretation Comments Carbon Dioxide Level (test code = 2028-9) [facility] anion [id number] 05:00:00 Test Item Value Reference Range Interpretation Comments Anion Gap (test code = 29996-3) 11.2 8-16 [facility] urea nitrogen measurement (mass/volume)2019-12-08 05:00:00 Test Item Value Reference Range Interpretation Comments Blood Urea Nitrogen (test code = 8 12-11 3094-0) [facility] creatinine measurement (mass/volume)2019-12-08 05:00:00 Test Item Value Reference Range Interpretation Comments Creatinine (test code = 2160-0) 0.79 0.57-1.11 [facility] urea nitrogen/creatinine mass [id number] 05:00:00 Test Item Value Reference Range Interpretation Comments BUN/Creatinine Ratio (test code = 11-10 3097-3) [facility]ballEstimated glomerular filtration rate (GFR) [id number] 05:00:00 Test Item Value Reference Range Interpretation Comments Estimat Glomerular Filtration Rate > 60 >60 (test code = 298877786) Ranges were taken from the National Kidney Disease Education Program and the National Kidney Foundation literature.Reference ranges:60 or greater: Cvlbxd85- 59 (for 3 consecutive months): Chronic kidneydisease 15 or less: Kidney failure [facility] TomballGlucose xgeghnmifel8967-46-29 05:00:00 Test Item Value Reference Range Interpretation Comments Glucose Level (test code = BOF8556) 76 74-118 [facility] calcium measurement (mass/volume)2019-12-08 05:00:00 Test Item Value Reference Range Interpretation Comments Calcium Level (test code = 92913-2) 8.3 8.4-10.2 [facility] total bilirubin measurement (mass/volume)2019-12-08 05:00:00 Test Item Value Reference Range Interpretation Comments Total Bilirubin (test code = 1975-2) 0.4 0.2-1.2 [facility]ballFluoroscopic procedure less than one hour [id number] 05:00:00 Test Item Value Reference Range Interpretation Comments Aspartate Amino Transf (AST/SGOT) (test 20 5-34 code = Aspartate Amino Transf (AST/SGOT)) [facility] alanine aminotransferase measurement (enzymatic activity/volume)2019-12-08 05:00:00 Test Item Value Reference Range Interpretation Comments Alanine Aminotransferase (ALT/SGPT) 22 0-55 (test code = 1742-6) [facility] protein measurement (mass/volume)2019-12-08 05:00:00 Test Item Value Reference Range Interpretation Comments Total Protein (test code = 2885-2) 5.7 6.5-8.1 [facility] albumin measurement (mass/volume)2019-12-08 05:00:00 Test Item Value Reference Range Interpretation Comments Albumin (test code = 1751-7) 2.7 3.5-5.0 [facility] TomballPlasma globulin measurement (mass/volume) 2019-12-08 05:00:00 Test Item Value Reference Range Interpretation Comments Globulin (test code = 80647-3) 3.0 2.3-3.5 [facility] albumin/globulin mass ratio 2019-12-08 05:00:00 Test Item Value Reference Range Interpretation Comments Albumin/Globulin Ratio (test code = 0.9 0.8-2.0 1759-0) [facility] alkaline phosphatase measurement (enzymatic activity/volume)2019-12-08 05:00:00 Test Item Value Reference Range Interpretation Comments Alkaline Phosphatase (test code = 103 40-150 6768-6) [facility] [facility] sodium [facility] (moles/volume)2019-12-08 05:00:00 Test Item Value Reference Range Interpretation Comments Sodium Level (test code = 2951-2) 139 136-145 [facility] potassium measurement (moles/volume)2019-12-08 05:00:00 Test Item Value Reference Range Interpretation Comments Potassium Level (test code = 2823-3) 4.2 3.5-5.1 [facility] chloride measurement (moles/volume)2019-12-08 05:00:00 Test Item Value Reference Range Interpretation Comments Chloride Level (test code = 2075-0) 109 98-107 [facility] carbon dioxide, total measurement (moles/volume)2019-12-08 05:00:00 Test Item Value Reference Range Interpretation Comments Carbon Dioxide Level (test code = 23 2028-9) [facility] anion [id number] 05:00:00 Test Item Value Reference Range Interpretation Comments Anion Gap (test code = 29932-9) 11.2 8-16 [facility] urea nitrogen measurement (mass/volume)2019-12-08 05:00:00 Test Item Value Reference Range Interpretation Comments Blood Urea Nitrogen (test code = 8 12-11 3094-0) [facility] creatinine measurement (mass/volume)2019-12-08 05:00:00 Test Item Value Reference Range Interpretation Comments Creatinine (test code = 2160-0) 0.79 0.57-1.11 [facility] urea nitrogen/creatinine mass [id number] 05:00:00 Test Item Value Reference Range Interpretation Comments BUN/Creatinine Ratio (test code = 11-10 3097-3) [facility]ballEstimated glomerular filtration rate (GFR) gpieprbchqjke7480-59-80 05:00:00 Test Item Value Reference Range Interpretation Comments Estimat Glomerular Filtration Rate > 60 >60 (test code = 143337371) Ranges were taken from the National Kidney Disease Education Program and the National Kidney Foundation literature.Reference ranges:60 or greater: Prcxud00- 59 (for 3 consecutive months): Chronic kidneydisease 15 or less: Kidney failure [facility] TomballGlucose lcfhjvqxqkw0866-18-07 05:00:00 Test Item Value Reference Range Interpretation Comments Glucose Level (test code = ENQ0965) 76 74-118 [facility] calcium measurement (mass/volume)2019-12-08 05:00:00 Test Item Value Reference Range Interpretation Comments Calcium Level (test code = 02008-0) 8.3 8.4-10.2 [facility] total bilirubin measurement (mass/volume)2019-12-08 05:00:00 Test Item Value Reference Range Interpretation Comments Total Bilirubin (test code = 1975-2) 0.4 0.2-1.2 [facility]ballFluoroscopic procedure less than one hour crhqugwg8365-93-79 05:00:00 Test Item Value Reference Range Interpretation Comments Aspartate Amino Transf (AST/SGOT) (test 20 534 code = Aspartate Amino Transf (AST/SGOT)) [facility] alanine aminotransferase measurement (enzymatic activity/volume)2019-12-08 05:00:00 Test Item Value Reference Range Interpretation Comments Alanine Aminotransferase (ALT/SGPT) 22 0-55 (test code = 1742-6) [facility] protein measurement (mass/volume)2019-12-08 05:00:00 Test Item Value Reference Range Interpretation Comments Total Protein (test code = 2885-2) 5.7 6.5-8.1 [facility] albumin measurement (mass/volume)2019-12-08 05:00:00 Test Item Value Reference Range Interpretation Comments Albumin (test code = 1751-7) 2.7 3.5-5.0 [facility] TomballPlasma globulin measurement (mass/volume) 2019-12-08 05:00:00 Test Item Value Reference Range Interpretation Comments Globulin (test code = 27080-1) 3.0 2.3-3.5 [facility] albumin/globulin mass ratio 2019-12-08 05:00:00 Test Item Value Reference Range Interpretation Comments Albumin/Globulin Ratio (test code = 0.9 0.8-2.0 1759-0) [facility] alkaline phosphatase measurement (enzymatic activity/volume)2019-12-08 05:00:00 Test Item Value Reference Range Interpretation Comments Alkaline Phosphatase (test code = 103 40-150 6768-6) [facility] sodium measurement (moles/volume)2019-12-08 05:00:00 Test Item Value Reference Range Interpretation Comments Sodium Level (test code = 2951-2) 139 136-145 [facility] potassium measurement (moles/volume)2019-12-08 05:00:00 Test Item Value Reference Range Interpretation Comments Potassium Level (test code = 2823-3) 4.2 3.5-5.1 [facility] chloride measurement (moles/volume)2019-12-08 05:00:00 Test Item Value Reference Range Interpretation Comments Chloride Level (test code = 2075-0) 109 98-107 [facility] carbon dioxide, total measurement (moles/volume)2019-12-08 05:00:00 Test Item Value Reference Range Interpretation Comments Carbon Dioxide Level (test code = 23 8-9) [facility] anion cze2491-86-19 05:00:00 Test Item Value Reference Range Interpretation Comments Anion Gap (test code = 92883-4) 11.2 8-16 [facility] urea nitrogen measurement (mass/volume)2019-12-08 05:00:00 Test Item Value Reference Range Interpretation Comments Blood Urea Nitrogen (test code = 8 12-11 3094-0) [facility] creatinine measurement (mass/volume)2019-12-08 05:00:00 Test Item Value Reference Range Interpretation Comments Creatinine (test code = 2160-0) 0.79 0.57-1.11 [facility] urea nitrogen/creatinine mass sfxfc9527-58-15 05:00:00 Test Item Value Reference Range Interpretation Comments BUN/Creatinine Ratio (test code = 11-10 3097-3) [facility]ballEstimated glomerular filtration rate (GFR) zsavoduuxztzb3991-51-68 05:00:00 Test Item Value Reference Range Interpretation Comments Estimat Glomerular Filtration Rate > 60 >60 (test code = 669627973) Ranges were taken from the National Kidney Disease Education Program and the National Kidney Foundation literature.Reference ranges:60 or greater: Ujlrey79- 59 (for 3 consecutive months): Chronic kidneydisease 15 or less: Kidney failure [facility] TomballGlucose bhtglbacrye6556-70-56 05:00:00 Test Item Value Reference Range Interpretation Comments Glucose Level (test code = QHC9901) 76 74-118 [facility] calcium measurement (mass/volume)2019-12-08 05:00:00 Test Item Value Reference Range Interpretation Comments Calcium Level (test code = 89480-2) 8.3 8.4-10.2 [facility] total bilirubin measurement (mass/volume)2019-12-08 05:00:00 Test Item Value Reference Range Interpretation Comments Total Bilirubin (test code = 1975-2) 0.4 0.2-1.2 [facility] TomballFluoroscopic procedure less than one hour nweoomik1703-25-72 05:00:00 Test Item Value Reference Range Interpretation Comments Aspartate Amino Transf (AST/SGOT) (test 20 5-34 code = Aspartate Amino Transf (AST/SGOT)) [facility] alanine aminotransferase measurement (enzymatic activity/volume)2019-12-08 05:00:00 Test Item Value Reference Range Interpretation Comments Alanine Aminotransferase (ALT/SGPT) 22 0-55 (test code = 1742-6) [facility] protein measurement (mass/volume)2019-12-08 05:00:00 Test Item Value Reference Range Interpretation Comments Total Protein (test code = 2885-2) 5.7 6.5-8.1 [facility] albumin measurement (mass/volume)2019-12-08 05:00:00 Test Item Value Reference Range Interpretation Comments Albumin (test code = 1751-7) 2.7 3.5-5.0 [facility] TomballPlasma globulin measurement (mass/volume) 2019-12-08 05:00:00 Test Item Value Reference Range Interpretation Comments Globulin (test code = 59040-1) 3.0 2.3-3.5 [facility] albumin/globulin mass ratio 2019-12-08 05:00:00 Test Item Value Reference Range Interpretation Comments Albumin/Globulin Ratio (test code = 0.9 0.8-2.0 1759-0) [facility] alkaline phosphatase measurement (enzymatic activity/volume)2019-12-08 05:00:00 Test Item Value Reference Range Interpretation Comments Alkaline Phosphatase (test code = 103 40-150 6768-6) [facility]ballBlood leukocytes automated count (number/volume)2019-12-08 01:16:00 Test Item Value Reference Range Interpretation Comments White Blood Count (test code = 6690-2) 9.37 4.8-10.8 [facility]ballBlood erythrocytes automated count (number/volume)2019-12-08 01:16:00 Test Item Value Reference Range Interpretation Comments Red Blood Count (test code = 789-8) 3.97 3.6-5.1 [facility] TomballAutomated erythrocyte mean corpuscular volume 2019-12-08 01:16:00 Test Item Value Reference Range Interpretation Comments Mean Corpuscular Volume (test code = 90.4 81-99 787-2) [facility]ballAutomated erythrocyte mean corpuscular hemoglobin (mass per erythrocyte)2019-12-08 01:16:00 Test Item Value Reference Range Interpretation Comments Mean Corpuscular Hemoglobin (test code 27.2 28-32 = 785-6) [facility]ballAutomated erythrocyte mean corpuscular hemoglobin concentration measurement (mass/volume)2019-12-08 01:16:00 Test Item Value Reference Range Interpretation Comments Mean Corpuscular Hemoglobin Concent 30.1 31-35 (test code = 786-4) [facility] TomballRDW MppIq-Asd6137-37-22 01:16:00 Test Item Value Reference Range Interpretation Comments Red Cell Distribution Width (test code 15.2 11.7-14.4 = 96416-3) [facility] TomballAutomated blood platelet count (count/volume) 2019-12-08 01:16:00 Test Item Value Reference Range Interpretation Comments Platelet Count (test code = 777-3) 230 140-360 [facility] TomballAutomated blood segmented neutrophil count as percentage of total nxfwaqedck9463-99-44 01:16:00 Test Item Value Reference Range Interpretation Comments Neutrophils (%) (Auto) (test code = 70.6 38.7-80.0 11383-6) [facility] TomballAutomated blood lymphocyte count as percentage ot total erbrvqpfgx0205-90-50 01:16:00 Test Item Value Reference Range Interpretation Comments Lymphocytes (%) (Auto) (test code = 18.5 18.0-39.1 736-9) [facility] TomballAutomated blood monocyte count as percentage of total zmsfworcjm6094-58-11 01:16:00 Test Item Value Reference Range Interpretation Comments Monocytes (%) (Auto) (test code = 6.5 4.4-11.3 5905-5) [facility] TomballAutomated blood eosinophil count as percentage of total vfbqgtonyx2298-18-78 01:16:00 Test Item Value Reference Range Interpretation Comments Eosinophils (%) (Auto) (test code = 3.8 0.0-6.0 713-8) [facility]ballAutomated blood basophil count as percentage of total ehuolbvkyl0328-12-71 01:16:00 Test Item Value Reference Range Interpretation Comments Basophils (%) (Auto) (test code = 0.3 0.0-1.0 706-2) [facility] TomballFluoroscopic procedure less than one hour wnlktgtc3786-56-03 01:16:00 Test Item Value Reference Range Interpretation Comments IM GRANULOCYTES % (test code = IM 0.3 0.0-1.0 GRANULOCYTES %) [facility] TomballAutomated blood neutrophil flkvg2055-72-08 01:16:00 Test Item Value Reference Range Interpretation Comments Neutrophils # (Auto) (test code = 6.6 2.1-6.9 751-8) [facility]ballBlood lymphocytes count (number/volume) 2019-12-08 01:16:00 Test Item Value Reference Range Interpretation Comments Lymphocytes # (Auto) (test code = 1.7 1.0-3.2 92264-9) [facility]ballBlood monocytes automated count (number/volume)2019-12-08 01:16:00 Test Item Value Reference Range Interpretation Comments Monocytes # (Auto) (test code = 742-7) 0.6 0.2-0.8 [facility] TomballAutomated blood eosinophil swmnn8232-84-33 01:16:00 Test Item Value Reference Range Interpretation Comments Eosinophils # (Auto) (test code = 0.4 0.0-0.4 711-2) [facility]ballAutomated blood basophil count (count/volume) 2019-12-08 01:16:00 Test Item Value Reference Range Interpretation Comments Basophils # (Auto) (test code = 704-7) 0.0 0.0-0.1 [facility] TomballFluoroscopic procedure less than one hour tkzejhei3029-58-97 01:16:00 Test Item Value Reference Range Interpretation Comments Absolute Immature Granulocyte (auto 0.03 0-0.1 (test code = Absolute Immature Granulocyte (auto) [facility]ballBlood leukocytes automated count (number/volume)2019-12-08 01:16:00 Test Item Value Reference Range Interpretation Comments White Blood Count (test code = 6690-2) 9.37 4.8-10.8 [facility] erythrocytes automated count (number/volume)2019-12-08 01:16:00 Test Item Value Reference Range Interpretation Comments Red Blood Count (test code = 789-8) 3.97 3.6-5.1 [facility]ballAutomated erythrocyte mean corpuscular volume 2019-12-08 01:16:00 Test Item Value Reference Range Interpretation Comments Mean Corpuscular Volume (test code = 90.4 81-99 787-2) [facility]ballAutomated erythrocyte mean corpuscular hemoglobin (mass per erythrocyte)2019-12-08 01:16:00 Test Item Value Reference Range Interpretation Comments Mean Corpuscular Hemoglobin (test code 27.2 28-32 = 785-6) [facility]ballAutomated erythrocyte mean corpuscular hemoglobin concentration measurement (mass/volume)2019-12-08 01:16:00 Test Item Value Reference Range Interpretation Comments Mean Corpuscular Hemoglobin Concent 30.1 31-35 (test code = 786-4) [facility] TomballRDW CttNg-Ejk9024-49-22 01:16:00 Test Item Value Reference Range Interpretation Comments Red Cell Distribution Width (test code 15.2 11.7-14.4 = 34774-9) [facility]ballAutomated blood platelet count (count/volume) 2019-12-08 01:16:00 Test Item Value Reference Range Interpretation Comments Platelet Count (test code = 777-3) 230 140-360 [facility] TomballAutomated blood segmented neutrophil count as percentage of total hztalknyjg5729-93-88 01:16:00 Test Item Value Reference Range Interpretation Comments Neutrophils (%) (Auto) (test code = 70.6 38.7-80.0 04203-5) [facility] TomballAutomated blood lymphocyte count as percentage ot total izciancabk2797-26-03 01:16:00 Test Item Value Reference Range Interpretation Comments Lymphocytes (%) (Auto) (test code = 18.5 18.0-39.1 736-9) [facility] TomballAutomated blood monocyte count as percentage of total zaootujjdo0628-34-32 01:16:00 Test Item Value Reference Range Interpretation Comments Monocytes (%) (Auto) (test code = 6.5 4.4-11.3 5905-5) [facility]ballAutomated blood eosinophil count as percentage of total eygkxamqvj7861-51-63 01:16:00 Test Item Value Reference Range Interpretation Comments Eosinophils (%) (Auto) (test code = 3.8 0.0-6.0 713-8) [facility]ballAutomated blood basophil count as percentage of total krbvgfnuid2675-28-58 01:16:00 Test Item Value Reference Range Interpretation Comments Basophils (%) (Auto) (test code = 0.3 0.0-1.0 706-2) [facility] TomballFluoroscopic procedure less than one hour ssfbymbq6784-29-20 01:16:00 Test Item Value Reference Range Interpretation Comments IM GRANULOCYTES % (test code = IM 0.3 0.0-1.0 GRANULOCYTES %) [facility]ballAutomated blood neutrophil gcrgx5737-43-71 01:16:00 Test Item Value Reference Range Interpretation Comments Neutrophils # (Auto) (test code = 6.6 2.1-6.9 751-8) [facility]ballBlood lymphocytes count (number/volume) 2019-12-08 01:16:00 Test Item Value Reference Range Interpretation Comments Lymphocytes # (Auto) (test code = 1.7 1.0-3.2 79876-8) [facility]ballBlood monocytes automated count (number/volume)2019-12-08 01:16:00 Test Item Value Reference Range Interpretation Comments Monocytes # (Auto) (test code = 742-7) 0.6 0.2-0.8 [facility] TomballAutomated blood eosinophil tjgct7759-09-39 01:16:00 Test Item Value Reference Range Interpretation Comments Eosinophils # (Auto) (test code = 0.4 0.0-0.4 711-2) [facility]ballAutomated blood basophil count (count/volume) 2019-12-08 01:16:00 Test Item Value Reference Range Interpretation Comments Basophils # (Auto) (test code = 704-7) 0.0 0.0-0.1 [facility] TomballFluoroscopic procedure less than one hour xjwxnnoo9586-00-39 01:16:00 Test Item Value Reference Range Interpretation Comments Absolute Immature Granulocyte (auto 0.03 0-0.1 (test code = Absolute Immature Granulocyte (auto) [facility] leukocytes automated count (number/volume)2019-12-08 01:16:00 Test Item Value Reference Range Interpretation Comments White Blood Count (test code = 6690-2) 9.37 4.8-10.8 [facility] erythrocytes automated count (number/volume)2019-12-08 01:16:00 Test Item Value Reference Range Interpretation Comments Red Blood Count (test code = 789-8) 3.97 3.6-5.1 [facility]ballAutomated erythrocyte mean corpuscular volume 2019-12-08 01:16:00 Test Item Value Reference Range Interpretation Comments Mean Corpuscular Volume (test code = 90.4 81-99 787-2) [facility]ballAutomated erythrocyte mean corpuscular hemoglobin (mass per erythrocyte)2019-12-08 01:16:00 Test Item Value Reference Range Interpretation Comments Mean Corpuscular Hemoglobin (test code 27.2 28-32 = 785-6) [facility]ballAutomated erythrocyte mean corpuscular hemoglobin concentration measurement (mass/volume)2019-12-08 01:16:00 Test Item Value Reference Range Interpretation Comments Mean Corpuscular Hemoglobin Concent 30.1 31-35 (test code = 786-4) [facility] TomballRDW BdyJr-Znt2219-59-22 01:16:00 Test Item Value Reference Range Interpretation Comments Red Cell Distribution Width (test code 15.2 11.7-14.4 = 81124-7) [facility] TomballAutomated blood platelet count (count/volume) 2019-12-08 01:16:00 Test Item Value Reference Range Interpretation Comments Platelet Count (test code = 777-3) 230 140-360 [facility] TomballAutomated blood segmented neutrophil count as percentage of total mntxsizjcd4550-31-44 01:16:00 Test Item Value Reference Range Interpretation Comments Neutrophils (%) (Auto) (test code = 70.6 38.7-80.0 45977-4) [facility] TomballAutomated blood lymphocyte count as percentage ot total robeligowf4901-09-51 01:16:00 Test Item Value Reference Range Interpretation Comments Lymphocytes (%) (Auto) (test code = 18.5 18.0-39.1 736-9) [facility]ballAutomated blood monocyte count as percentage of total hhdrmjrvrw7869-18-66 01:16:00 Test Item Value Reference Range Interpretation Comments Monocytes (%) (Auto) (test code = 6.5 4.4-11.3 5905-5) [facility]ballAutomated blood eosinophil count as percentage of total bhvcfayakj2798-56-19 01:16:00 Test Item Value Reference Range Interpretation Comments Eosinophils (%) (Auto) (test code = 3.8 0.0-6.0 713-8) [facility]ballAutomated blood basophil count as percentage of total hehfxbgcwf7418-61-51 01:16:00 Test Item Value Reference Range Interpretation Comments Basophils (%) (Auto) (test code = 0.3 0.0-1.0 706-2) [facility] TomballFluoroscopic procedure less than one hour xecoackp7411-51-52 01:16:00 Test Item Value Reference Range Interpretation Comments IM GRANULOCYTES % (test code = IM 0.3 0.0-1.0 GRANULOCYTES %) [facility]ballAutomated blood neutrophil cnxmy7629-74-15 01:16:00 Test Item Value Reference Range Interpretation Comments Neutrophils # (Auto) (test code = 6.6 2.1-6.9 751-8) [facility]ballBlood lymphocytes count (number/volume) 2019-12-08 01:16:00 Test Item Value Reference Range Interpretation Comments Lymphocytes # (Auto) (test code = 1.7 1.0-3.2 99526-7) [facility]ballBlood monocytes automated count (number/volume)2019-12-08 01:16:00 Test Item Value Reference Range Interpretation Comments Monocytes # (Auto) (test code = 742-7) 0.6 0.2-0.8 [facility]ballAutomated blood eosinophil pznuu4152-19-08 01:16:00 Test Item Value Reference Range Interpretation Comments Eosinophils # (Auto) (test code = 0.4 0.0-0.4 711-2) [facility]ballAutomated blood basophil count (count/volume) 2019-12-08 01:16:00 Test Item Value Reference Range Interpretation Comments Basophils # (Auto) (test code = 704-7) 0.0 0.0-0.1 [facility]ballFluoroscopic procedure less than one hour qakcpvmu7170-79-80 01:16:00 Test Item Value Reference Range Interpretation Comments Absolute Immature Granulocyte (auto 0.03 0-0.1 (test code = Absolute Immature Granulocyte (auto) [facility] leukocytes automated count (number/volume)2019-12-08 01:16:00 Test Item Value Reference Range Interpretation Comments White Blood Count (test code = 6690-2) 9.37 4.8-10.8 [facility] erythrocytes automated count (number/volume)2019-12-08 01:16:00 Test Item Value Reference Range Interpretation Comments Red Blood Count (test code = 789-8) 3.97 3.6-5.1 [facility]ballAutomated erythrocyte mean corpuscular volume 2019-12-08 01:16:00 Test Item Value Reference Range Interpretation Comments Mean Corpuscular Volume (test code = 90.4 81-99 787-2) [facility]ballAutomated erythrocyte mean corpuscular hemoglobin (mass per erythrocyte)2019-12-08 01:16:00 Test Item Value Reference Range Interpretation Comments Mean Corpuscular Hemoglobin (test code 27.2 28-32 = 785-6) [facility]ballAutomated erythrocyte mean corpuscular hemoglobin concentration measurement (mass/volume)2019-12-08 01:16:00 Test Item Value Reference Range Interpretation Comments Mean Corpuscular Hemoglobin Concent 30.1 31-35 (test code = 786-4) [facility] TomballRDW BspPw-Cse7253-30-22 01:16:00 Test Item Value Reference Range Interpretation Comments Red Cell Distribution Width (test code 15.2 11.7-14.4 = 82049-2) [facility]ballAutomated blood platelet count (count/volume) 2019-12-08 01:16:00 Test Item Value Reference Range Interpretation Comments Platelet Count (test code = 777-3) 230 140-360 [facility] TomballAutomated blood segmented neutrophil count as percentage of total rvlrqnxfdx5842-62-39 01:16:00 Test Item Value Reference Range Interpretation Comments Neutrophils (%) (Auto) (test code = 70.6 38.7-80.0 19755-3) [facility] TomballAutomated blood lymphocyte count as percentage ot total warbgpuldt6433-32-14 01:16:00 Test Item Value Reference Range Interpretation Comments Lymphocytes (%) (Auto) (test code = 18.5 18.0-39.1 736-9) [facility]ballAutomated blood monocyte count as percentage of total gdtyerzxiw3105-07-77 01:16:00 Test Item Value Reference Range Interpretation Comments Monocytes (%) (Auto) (test code = 6.5 4.4-11.3 5905-5) [facility]ballAutomated blood eosinophil count as percentage of total owtrirfkeg1851-91-29 01:16:00 Test Item Value Reference Range Interpretation Comments Eosinophils (%) (Auto) (test code = 3.8 0.0-6.0 713-8) [facility]ballAutomated blood basophil count as percentage of total xpxhxdaekh6663-04-31 01:16:00 Test Item Value Reference Range Interpretation Comments Basophils (%) (Auto) (test code = 0.3 0.0-1.0 706-2) [facility] TomballFluoroscopic procedure less than one hour loujfxvo5450-24-10 01:16:00 Test Item Value Reference Range Interpretation Comments IM GRANULOCYTES % (test code = IM 0.3 0.0-1.0 GRANULOCYTES %) [facility]ballAutomated blood neutrophil uxphp0214-77-87 01:16:00 Test Item Value Reference Range Interpretation Comments Neutrophils # (Auto) (test code = 6.6 2.1-6.9 751-8) [facility] (number/volume) 2019-12-08 01:16:00 Test Item Value Reference Range Interpretation Comments Lymphocytes # (Auto) (test code = 1.7 1.0-3.2 22049-2) [facility] monocytes automated count (number/volume)2019-12-08 01:16:00 Test Item Value Reference Range Interpretation Comments Monocytes # (Auto) (test code = 742-7) 0.6 0.2-0.8 [facility] blood eosinophil [id number] 01:16:00 Test Item Value Reference Range Interpretation Comments Eosinophils # (Auto) (test code = 0.4 0.0-0.4 711-2) [facility] basophil count (count/volume) 2019-12-08 01:16:00 Test Item Value Reference Range Interpretation Comments Basophils # (Auto) (test code = 704-7) 0.0 0.0-0.1 [facility]ballFluoroscopic procedure less than one hour [id number] 01:16:00 Test Item Value Reference Range Interpretation Comments Absolute Immature Granulocyte (auto 0.03 0-0.1 (test code = Absolute Immature Granulocyte (auto) [facility] DOPPL[facility] [id number] 14:54:00 [place] [address] PatientName: LIANA MAGALLON MR #: [id number] : 1975 Age/Sex: 44/F Req #: [id number] [facility] Physician: TOMEKA CUADRA MD Ordered by: TOMEKA CUADRA MD Report #: [id number] Location: [facility] Room/Bed: [place] [address] Procedure: [id number] US/US ABDOMEN DUPLEX DOPPLER COMP Exam Date: 12/07/19 Exam Time: 1400 REPORT STATUS: Signed EXAM: Abdominal Ultrasound with Abdominal Doppler INDICATION: Abdominal pain abnormal CT scan COMPARISON: CT scan 12/06/2019 TECHNIQUE: Transverse and longitudinal images of the upper abdomen were obtained. Color Doppler images of the abdominal vasculature was also obtained. FINDINGS: Liver: Size: 16.4 cm in the right midclavicular line, normal Appearance: Normal echogenicity, smooth contour Mass: No focal masses Gallbladder: Surgically absent Bile Ducts: Intrahepatic Ducts: No dilatation Extrahepatic Ducts: 0.5 cm in caliber, no dilatation Free Fluid: No ascites or pleural effusion Pancreas: Suboptimally evaluated due to overlying bowel gas Kidneys: The right kidney measures 9.7 cm in length and the left kidney measures 9.9 cm in length. No hydronephrosis or solid or cystic renal mass. No discrete stone. Spleen: Measures 12.4 x 3.6 x 4.2 cm. Echogenic splenic calcification is noted. Vessels: Duplicated inferior vena cava. No identifiable IVC thrombus. Doppler flowis identified in the hepatic veins, portal vein, hepatic arteries, renal arteries, and splenic artery. IMPRESSION: Duplicated IVC. No sonographic evidence of thrombosis. Additional abdominal vasculature is patent. Otherwise unremarkable abdominal ultrasound. Signed by: Felisha Keane MD on 12/07/2019 3 :01 PM Dictated By: FELISHA KEANE MD 1501 Transcribed By: SHILA on 12/07/19 1501 COPY TO: TOMEKA CUADRA MDFluoroscopic procedure less than one hour [id number] 01:56:00 Test Item Value Reference Range Interpretation Comments Coronavirus (PCR) (test code = NOT DETECTED NOTDETECTED Coronavirus (PCR)) SARS-COV-2 (COVID19), HIGHRISK, RT-PCRNegative results do not preclude SARS-CoV-2 infection and should not be used as the sole basis for patient management decisions. Negative results must be combined with clinical observations, patient history, and epidemiological information. Optimum specimen types and timing for peak viral levels during infections caused by SARS-CoV-2 have not been determined. Collection of multiple specimens ot types of specimens may be necessary to detect virus. Improper specimen collection and handling, sequence variability under primers/probes, or organism present below the limit of detection may lead to false negative results. Positive and negative predictive values of testing are highly dependent on prevalance. False negative test results are more likely when prevalence is high.The expected result is negative (not detected).The SARS-CoV-2 test is intended for the qualitative detection of nucleic acid from SARS-CoV-2 in nasopharyngeal and oropharyngeal swab samples frompatients who meet COVID-19 clinical and or epidemiological criteria. For lower respiratory tract specimens, the assay is submitted for authoriztion by FDA under an Emergency Use Authorization (EUA). Testing methodology is real time RT-PCR. If received as separate collection devices, nasopharygeal and oropharyngeal specimens are combined for analysis. Additional specimens may be split to a separate accession for analysi and reporting as this test includes a single unit of service.Test results must becorrelated with clinical presentation and evaluated in the context of other laboratory and epidemiologic data. Test performance can be affected because the epidemiology and clinical spectrum of infection caused by SARS-CoV-2 is not fully known. For example, the optimum types of specimens to collect and when during the course of infection these specimens are most likely to contain detectable viral RNAmay not be known.This test has not been Food and Drug Administration (FDA) cleared or approved and has been authorized by FDA under an Emergency Use Authorization (EUA). The test is only authorized forthe duration of the declaration that circumstances exist justifying the authorization of emergency use of in vitro diagnostic tests for detection and/or diagnosis of SARS-CoV-2 under section 564(b) of the Act, 21 U.S.C. section 360bbb-3(b)(1), unless the authorization is terminated or revoked sooner. [facility] are certified under the Clinical Laboratory Improvement Amendments [id number] (CLIA), 42 U.S.C. section 263a, to perform high complexity tests.Testing performed by [facility] [address] [place] [address] [phone] Director: Kenia Escamilla M.D.CLIA # [id number] [facility] GardensFluoroscopic procedure less than one hour [id number] 01:56:00 Test Item Value Reference Range Interpretation Comments Coronavirus (PCR) (test code = NOT DETECTED NOTDETECTED Coronavirus (PCR)) SARS-COV-2 (COVID19), HIGHRISK, RT-PCRNegative results do not preclude SARS-CoV-2 infection and should not be used as the sole basis for patient management decisions. Negative results must be combined with clinical observations, patient history, and epidemiological information. Optimum specimen types and timing for peak viral levels during infections caused by SARS-CoV-2 have not been determined. Collection of multiple specimens ot types of specimens may be necessary to detect virus. Improper specimen collection and handling, sequence variability under primers/probes, or organism present below the limit of detection may lead to false negative results. Positive and negative predictive values of testing are highly dependent on prevalance. False negative test results are more likely when prevalence is high.The expected result is negative (not detected).The SARS-CoV-2 test is intended for the qualitative detection of nucleic acid from SARS-CoV-2 in nasopharyngeal and oropharyngeal swab samples frompatients who meet COVID-19 clinical and or epidemiological criteria. For lower respiratory tract specimens, the assay is submitted for authoriztion by FDA under an Emergency Use Authorization (EUA). Testing methodology is real time RT-PCR. If received as separate collection devices, nasopharygeal and oropharyngeal specimens are combined for analysis. Additional specimens may be split to a separate accession for analysi and reporting as this test includes a single unit of service.Test results must becorrelated with clinical presentation and evaluated in the context of other laboratory and epidemiologic data. Test performance can be affected because the epidemiology and clinical spectrum of infection caused by SARS-CoV-2 is not fully known. For example, the optimum types of specimens to collect and when during the course of infection these specimens are most likely to contain detectable viral RNAmay not be known.This test has not been Food and Drug Administration (FDA) cleared or approved and has been authorized by FDA under an Emergency Use Authorization (EUA). The test is only authorized forthe duration of the declaration that circumstances exist justifying the authorization of emergency use of in vitro diagnostic tests for detection and/or diagnosis of SARS-CoV-2 under section 564(b) of the Act, 21 U.S.C. section 360bbb-3(b)(1), unless the authorization is terminated or revoked sooner. [facility] are certified under the Clinical Laboratory Improvement Amendments [id number] (CLIA), 42 U.S.C. section 263a, to perform high complexity tests.Testing performed by [facility] [address] [place] [address] [phone] Director: Kenia Escamilla M.D.CLIA # [id number] [facility] GardensFluoroscopic procedure less than one hour [id number] 01:56:00 Test Item Value Reference Range Interpretation Comments Coronavirus (PCR) (test code = NOT DETECTED NOTDETECTED Coronavirus (PCR)) SARS-COV-2 (COVID19), HIGHRISK, RT-PCRNegative results do not preclude SARS-CoV-2 infection and should not be used as the sole basis for patient management decisions. Negative results must be combined with clinical observations, patient history, and epidemiological information. Optimum specimen types and timing for peak viral levels during infections caused by SARS-CoV-2 have not been determined. Collection of multiple specimens ot types of specimens may be necessary to detect virus. Improper specimen collection and handling, sequence variability under primers/probes, or organism present below the limit of detection may lead to false negative results. Positive and negative predictive values of testing are highly dependent on prevalance. False negative test results are more likely when prevalence is high.The expected result is negative (not detected).The SARS-CoV-2 test is intended for the qualitative detection of nucleic acid from SARS-CoV-2 in nasopharyngeal and oropharyngeal swab samples frompatients who meet COVID-19 clinical and or epidemiological criteria. For lower respiratory tract specimens, the assay is submitted for authoriztion by FDA under an Emergency Use Authorization (EUA). Testing methodology is real time RT-PCR. If received as separate collection devices, nasopharygeal and oropharyngeal specimens are combined for analysis. Additional specimens may be split to a separate accession for analysi and reporting as this test includes a single unit of service.Test results must becorrelated with clinical presentation and evaluated in the context of other laboratory and epidemiologic data. Test performance can be affected because the epidemiology and clinical spectrum of infection caused by SARS-CoV-2 is not fully known. For example, the optimum types of specimens to collect and when during the course of infection these specimens are most likely to contain detectable viral RNAmay not be known.This test has not been Food and Drug Administration (FDA) cleared or approved and has been authorized by FDA under an Emergency Use Authorization (EUA). The test is only authorized forthe duration of the declaration that circumstances exist justifying the authorization of emergency use of in vitro diagnostic tests for detection and/or diagnosis of SARS-CoV-2 under section 564(b) of the Act, 21 U.S.C. section 360bbb-3(b)(1), unless the authorization is terminated or revoked sooner. [facility] are certified under the Clinical Laboratory Improvement Amendments [id number] (CLIA), 42 U.S.C. section 263a, to perform high complexity tests.Testing performed by [facility] [address] [place] [address] [phone] Director: Kenia Escamilla M.D.CLIA # [id number] [facility] GardensFluoroscopic procedure less than one hour [id number] 01:56:00 Test Item Value Reference Range Interpretation Comments Coronavirus (PCR) (test code = NOT DETECTED NOTDETECTED Coronavirus (PCR)) SARS-COV-2 (COVID19), HIGHRISK, RT-PCRNegative results do not preclude SARS-CoV-2 infection and should not be used as the sole basis for patient management decisions. Negative results must be combined with clinical observations, patient history, and epidemiological information. Optimum specimen types and timing for peak viral levels during infections caused by SARS-CoV-2 have not been determined. Collection of multiple specimens ot types of specimens may be necessary to detect virus. Improper specimen collection and handling, sequence variability under primers/probes, or organism present below the limit of detection may lead to false negative results. Positive and negative predictive values of testing are highly dependent on prevalance. False negative test results are more likely when prevalence is high.The expected result is negative (not detected).The SARS-CoV-2 test is intended for the qualitative detection of nucleic acid from SARS-CoV-2 in nasopharyngeal and oropharyngeal swab samples frompatients who meet COVID-19 clinical and or epidemiological criteria. For lower respiratory tract specimens, the assay is submitted for authoriztion by FDA under an Emergency Use Authorization (EUA). Testing methodology is real time RT-PCR. If received as separate collection devices, nasopharygeal and oropharyngeal specimens are combined for analysis. Additional specimens may be split to a separate accession for analysi and reporting as this test includes a single unit of service.Test results must becorrelated with clinical presentation and evaluated in the context of other laboratory and epidemiologic data. Test performance can be affected because the epidemiology and clinical spectrum of infection caused by SARS-CoV-2 is not fully known. For example, the optimum types of specimens to collect and when during the course of infection these specimens are most likely to contain detectable viral RNAmay not be known.This test has not been Food and Drug Administration (FDA) cleared or approved and has been authorized by FDA under an Emergency Use Authorization (EUA). The test is only authorized forthe duration of the declaration that circumstances exist justifying the authorization of emergency use of in vitro diagnostic tests for detection and/or diagnosis of SARS-CoV-2 under section 564(b) of the Act, 21 U.S.C. section 360bbb-3(b)(1), unless the authorization is terminated or revoked sooner. [facility] are certified under the Clinical Laboratory Improvement Amendments [id number] (CLIA), 42 U.S.C. section 263a, to perform high complexity tests.Testing performed by [facility] [id number] [place] [address] [phone] Director: Kenia Escamilla M.D.CLIA # [id number] [place], [place] [address]Fluoroscopic procedure less than one hour [id number] 01:56:00 Test Item Value Reference Range Interpretation Comments Coronavirus (PCR) (test code = NOT DETECTED NOTDETECTED Coronavirus (PCR)) SARS-COV-2 (COVID19), HIGHRISK, RT-PCRNegative results do not preclude SARS-CoV-2 infection and should not be used as the sole basis for patient management decisions. Negative results must be combined with clinical observations, patient history, and epidemiological information. Optimum specimen types and timing for peak viral levels during infections caused by SARS-CoV-2 have not been determined. Collection of multiple specimens ot types of specimens may be necessary to detect virus. Improper specimen collection and handling, sequence variability under primers/probes, or organism present below the limit of detection may lead to false negative results. Positive and negative predictive values of testing are highly dependent on prevalance. False negative test results are more likely when prevalence is high.The expected result is negative (not detected).The SARS-CoV-2 test is intended for the qualitative detection of nucleic acid from SARS-CoV-2 in nasopharyngeal and oropharyngeal swab samples frompatients who meet COVID-19 clinical and or epidemiological criteria. For lower respiratory tract specimens, the assay is submitted for authoriztion by FDA under an Emergency Use Authorization (EUA). Testing methodology is real time RT-PCR. If received as separate collection devices, nasopharygeal and oropharyngeal specimens are combined for analysis. Additional specimens may be split to a separate accession for analysi and reporting as this test includes a single unit of service.Test results must becorrelated with clinical presentation and evaluated in the context of other laboratory and epidemiologic data. Test performance can be affected because the epidemiology and clinical spectrum of infection caused by SARS-CoV-2 is not fully known. For example, the optimum types of specimens to collect and when during the course of infection these specimens are most likely to contain detectable viral RNAmay not be known.This test has not been Food and Drug Administration (FDA) cleared or approved and has been authorized by FDA under an Emergency Use Authorization (EUA). The test is only authorized forthe duration of the declaration that circumstances exist justifying the authorization of emergency use of in vitro diagnostic tests for detection and/or diagnosis of SARS-CoV-2 under section 564(b) of the Act, 21 U.S.C. section 360bbb-3(b)(1), unless the authorization is terminated or revoked sooner. [facility] are certified under the Clinical Laboratory Improvement Amendments [id number] (CLIA), 42 U.S.C. section 263a, to perform high complexity tests.Testing performed by [facility] [address] [place] [address] [phone] Director: Kenia Escamilla M.D.CLIA # [id number] [facility] GardensFluoroscopic procedure less than one hour [id number] 01:56:00 Test Item Value Reference Range Interpretation Comments Coronavirus (PCR) (test code = NOT DETECTED NOTDETECTED Coronavirus (PCR)) SARS-COV-2 (COVID19), HIGHRISK, RT-PCRNegative results do not preclude SARS-CoV-2 infection and should not be used as the sole basis for patient management decisions. Negative results must be combined with clinical observations, patient history, and epidemiological information. Optimum specimen types and timing for peak viral levels during infections caused by SARS-CoV-2 have not been determined. Collection of multiple specimens ot types of specimens may be necessary to detect virus. Improper specimen collection and handling, sequence variability under primers/probes, or organism present below the limit of detection may lead to false negative results. Positive and negative predictive values of testing are highly dependent on prevalance. False negative test results are more likely when prevalence is high.The expected result is negative (not detected).The SARS-CoV-2 test is intended for the qualitative detection of nucleic acid from SARS-CoV-2 in nasopharyngeal and oropharyngeal swab samples frompatients who meet COVID-19 clinical and or epidemiological criteria. For lower respiratory tract specimens, the assay is submitted for authoriztion by FDA under an Emergency Use Authorization (EUA). Testing methodology is real time RT-PCR. If received as separate collection devices, nasopharygeal and oropharyngeal specimens are combined for analysis. Additional specimens may be split to a separate accession for analysi and reporting as this test includes a single unit of service.Test results must becorrelated with clinical presentation and evaluated in the context of other laboratory and epidemiologic data. Test performance can be affected because the epidemiology and clinical spectrum of infection caused by SARS-CoV-2 is not fully known. For example, the optimum types of specimens to collect and when during the course of infection these specimens are most likely to contain detectable viral RNAmay not be known.This test has not been Food and Drug Administration (FDA) cleared or approved and has been authorized by FDA under an Emergency Use Authorization (EUA). The test is only authorized forthe duration of the declaration that circumstances exist justifying the authorization of emergency use of in vitro diagnostic tests for detection and/or diagnosis of SARS-CoV-2 under section 564(b) of the Act, 21 U.S.C. section 360bbb-3(b)(1), unless the authorization is terminated or revoked sooner. [facility] are certified under the Clinical Laboratory Improvement Amendments [id number] (CLIA), 42 U.S.C. section 263a, to perform high complexity tests.Testing performed by [facility] [address] [place] [address] [phone] Director: Kenia Escamilla M.D.CLIA # [id number] [facility] GardensCT ABDOMEN/PELVIS [id number] 23:21:00 [place] [address] Patient Name: LIANA MAGALLON MR #: [id number] : 1975 Age/Sex: 44/F Req #: [id number] Adm Physician: TOMEKA CUADRA MD Ordered by: TOO HOLBROOK MD Report #: [id number] Location: MED/SURG2 Room/Bed: [facility] Procedure: CT/CT ABDOMEN/PELVIS W Exam Date: 12/06/19 Exam Time: 2300 REPORT STATUS: Signed EXAM: CT Abdomen and Pelvis WITH contrast INDICATION: Abdominal Pain, bloody diarrhea. COMPARISON: None. TECHNIQUE: Abdomen and pelvis were scanned utilizing a multidetectorhelical scanner from the lung base to the pubic symphysis after administration of IV contrast. Coronal and sagittal reformations were obtained. Routine protocol was performed. Scan was performed duringportal venous phase. IV CONTRAST: 100 cc of Isovue-370 ORAL CONTRAST: None COMPLICATIONS: None RADIATION DOSE: Total DLP: 906 mGy*cm Estimated effective dose: (DLP x 0.015 x size factor) mSv CTDIvol has been reviewed. It is below the limits set by the Radiation Protocol Committee (RPC). FINDINGS: LINES and TUBES: None. LOWER THORAX: Mild patchy dependent atelectasis. HEPATOBILIARY: No evidence of focal lesion. No biliary ductal dilation. GALLBLADDER: Status post cholecystectomy. Punctate calcification in the gallbladder bed may represent dropped gallstone versus calcified granuloma. SPLEEN: No splenomegaly. Calcified splenic granuloma. PANCREAS: No focal masses or ductal dilatation. ADRENALS: No adrenal nodules KIDNEYS/URETERS: No evidence of hydronephrosis or stone. Left greater than right renal cortical scarring. Small subcentimeter left renal hypodensities are too small to characterize, but likely represent cysts. GI TRACT: Status post Jc-en-Y gastric bypass. Additional right mid abdomen small bowel anastomosis. No bowel obstruction. Mild wall thickening within jejunal loops. Appendix isnormal. Moderate amount of stool in the colon. PELVIC ORGANS/BLADDER: Unremarkable. LYMPH NODES: No l ymphadenopathy. VESSELS: Apparent hypodensity within the intrahepatic IVC likely reflects mixing artifact secondary to phase of contrast. Duplicated IVC. Separate origin of the common hepatic and splenic arteries from the aorta. Mild atherosclerotic calcifications of the abdominal aorta and branch vessels. PERITONEUM / RETROPERITONEUM: No free air or fluid. BONES AND SOFT TISSUES: No acute osseous abnormality. Mild anasarca. Likely injection site in the right supragluteal subcutaneous tissues. CONCLUSION: Mild wall thickening within jejunal loops may represent enteritis, which may be infectious or inflammatory. No evidence of colitis. Status post Jc-en-Y gastric bypass without bowel obstruction.Duplicated IVC. Apparent hypodensity within the intrahepatic IVC likely represents mixing artifact given the phase of contrast, rather than thrombus. Suggest clinical correlation. Signed by: Dr. Ty MD on 12/06/2019 11:38 PM Dictated By: JAYSHREE HERNANDEZ MD 37 Transcribed By: SHILA on 12/06/192337 COPY TO: TOO HOLBROOK MDUrine color vefilhfueyiso2940-59-44 21:33:00 Test Item Value Reference Range Interpretation Comments Urine Color (test code = 5778-6) YELLOW YELLOW [facility]ball[facility] [id number] 21:33:00 Test Item Value Reference Range Interpretation Comments Urine Clarity (test code = 21820-8) [facility] by Test strip 2019-12-06 21:33:00 Test Item Value Reference Range Interpretation Comments Urine Specific Roselle (test code = 1.020 1.010-1.025 5811-5) [facility]ball[facility] pH measurement by automated test strip 2019-12-06 21:33:00 Test Item Value Reference Range Interpretation Comments Urine pH (test code = 73404-7) 6 5-7 [facility]ballU[facility] leukocyte esterase detection by vkxizlbq6366-18-38 21:33:00 Test Item Value Reference Range Interpretation Comments Urine Leukocyte Esterase (test code NEGATIVE NEGATIVE = 5799-2) [facility]ballU[facility] nitrite [id number] 21:33:00 Test Item Value Reference Range Interpretation Comments Urine Nitrite (test code = 08767-9) NEGATIVE NEGATIVE [facility]ballU[facility] protein measurement by test strip (mass/volume)2019-12-06 21:33:00 Test Item Value Reference Range Interpretation Comments Urine Protein (test code = 5804-0) NEGATIVE NEGATIVE [facility]ballU[facility] glucose xhdnmoebs3301-32-15 21:33:00 Test Item Value Reference Range Interpretation Comments Urine Glucose (UA) (test code = NEGATIVE NEGATIVE 2349-9) [facility]ballUrine ketones detection by automated test [id number] 21:33:00 Test Item Value Reference Range Interpretation Comments Urine Ketones (test code = 19899-4) NEGATIVE NEGATIVE [facility]ballUrine urobilinogen measurement by test strip (mass/volume)2019-12-06 21:33:00 Test Item Value Reference Range Interpretation Comments Urine Urobilinogen (test code = 0.2 0.2-1 73052-2) [facility]ballU[facility] total bilirubin measurement (mass/volume)2019-12-06 21:33:00 Test Item Value Reference Range Interpretation Comments Urine Bilirubin (test code = 1978-6) NEGATIVE NEGATIVE [facility]ballUrine erythrocytes [id number] 21:33:00 Test Item Value Reference Range Interpretation Comments Urine Blood (test code = 43616-7) NEGATIVE NEGATIVE [facility]ballAutomated urine sediment leukocyte count by microscopy (number/high power field)2019-12-06 21:33:00 Test Item Value Reference Range Interpretation Comments Urine WBC (test code = 5821-4) NONE 0-5 [facility]ballErythrocytes detection in urine sediment by light elmpukgzyr4839-29-00 21:33:00 Test Item Value Reference Range Interpretation Comments Urine RBC (test code = 07454-0) NONE 0-5 [facility]ballBacteria detection in urine sediment by light [id number] 21:33:00 Test Item Value Reference Range Interpretation Comments Urine Bacteria (test code = 88618-1) MODERATE NONE [facility] TomballEpithelial cells detection in urine sediment by light kaljmfidey1331-46-61 21:33:00 Test Item Value Reference Range Interpretation Comments Urine Epithelial Cells (test code = MANY NONE 61051-3) [facility] TomballTransitional cells detection in urine sediment by light xdhekltodn3422-43-31 21:33:00 Test Item Value Reference Range Interpretation Comments Urine Transitional Epithelial Cells MODERATE NONE (test code = 8249-5) [facility]ballUrine color acewjtvqebqxo7186-37-36 21:33:00 Test Item Value Reference Range Interpretation Comments Urine Color (test code = 5778-6) YELLOW YELLOW [facility]ballUrine [id number] 21:33:00 Test Item Value Reference Range Interpretation Comments Urine Clarity (test code = 96373-0) [facility]AR [facility] by Test strip 2019-12-06 21:33:00 Test Item Value Reference Range Interpretation Comments Urine Specific Ros[place] (test code = 1.020 1.010-1.025 5811-5) [facility]ballU[facility] pH measurement by automated test strip 2019-12-06 21:33:00 Test Item Value Reference Range Interpretation Comments Urine pH (test code = 48766-1) 6 5-7 [facility]ballU[facility] leukocyte esterase detection by fcpdfvnp6475-96-26 21:33:00 Test Item Value Reference Range Interpretation Comments Urine Leukocyte Esterase (test code NEGATIVE NEGATIVE = 5799-2) [facility]ballUrine nitrite rpsndbvse1391-00-56 21:33:00 Test Item Value Reference Range Interpretation Comments Urine Nitrite (test code = 56117-8) NEGATIVE NEGATIVE [facility]ballUrine protein measurement by test strip (mass/volume)2019-12-06 21:33:00 Test Item Value Reference Range Interpretation Comments Urine Protein (test code = 5804-0) NEGATIVE NEGATIVE [facility]ballUrine glucose [id number] 21:33:00 Test Item Value Reference Range Interpretation Comments Urine Glucose (UA) (test code = NEGATIVE NEGATIVE 2349-9) [facility]ballUrine ketones detection by automated test afemn1401-95-34 21:33:00 Test Item Value Reference Range Interpretation Comments Urine Ketones (test code = 65344-1) NEGATIVE NEGATIVE [facility]ballUrine urobilinogen measurement by test strip (mass/volume)2019-12-06 21:33:00 Test Item Value Reference Range Interpretation Comments Urine Urobilinogen (test code = 0.2 0.2-1 24477-1) [facility]ballU[facility] total bilirubin measurement (mass/volume)2019-12-06 21:33:00 Test Item Value Reference Range Interpretation Comments Urine Bilirubin (test code = 1978-6) NEGATIVE NEGATIVE [facility]ballUrine erythrocytes wgaygeczv9378-42-17 21:33:00 Test Item Value Reference Range Interpretation Comments Urine Blood (test code = 86803-1) NEGATIVE NEGATIVE [facility]ballAutomated urine sediment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 code = HGB) 12.2 gm/dL 12.0-16.0 N HEMATOCRIT (test code = HCT) 38.1 % 36.0-48.0 N MEAN CELL VOLUME (test code = 88.8 UM3 82.0-99.0 N MCV) MEAN CELL HGB (test code = MCH) 28.4 UUG 25.5-32.5 N MEAN CELL HGB CONCETRATION 32.0 gm/dL 29.0-35.5 N (test code = MCHC) RED CELL DISTRIBUTION WIDTH 15.1 % 11.5-15.0 H (test code = RDW) RED CELL DISTRIBUTION WIDTH SD 48.4 fL 34.8-50.2 N (test code = RDW-SD) PLATELET COUNT (test code = 324 K/mm3 150-400 N PLT) MEAN PLATELET VOLUME (test code 11.6 fl 7.4-10.4 H = MPV) NEUTROPHIL % (test code = NT%) 80.9 % 49.0-76.0 H IMMATURE GRANULOCYTE % (test 0.9 % 0.0-0.4 H code = IG%) LYMPHOCYTE % (test code = LY%) 10.7 % 23.0-38.0 L MONOCYTE % (test code = MO%) 7.3 % 1.0-10.0 N EOSINOPHIL % (test code = EO%) 0.1 % 1.0-5.0 L BASOPHIL % (test code = BA%) 0.1 % 0.0-1.0 N NEUTROPHIL # (test code = NT#) 16.2 K/mm3 2.4-6.3 H IMMATURE GRANULOCYTE # (test 0.19 x10 3/uL 0.00-0.07 H code = IG#) LYMPHOCYTE # (test code = LY#) 2.2 K/mm3 1.2-4.0 N MONOCYTE # (test code = MO#) 1.5 K/mm3 0.0-0.6 H EOSINOPHIL # (test code = EO#) 0.0 K/MM3 0.0-0.7 N BASOPHIL # (test code = BA#) 0.0 K/mm3 0.0-0.2 N TOTAL CELLS COUNTED (test code 100 #CELLS = TCC) SEGMENTED NEUTROPHILS (test 85 % 50.0-70.0 H code = SEG) LYMPHOCYTE (test code = LYMPH) 10 % 20-40 L MONOCYTE (test code = MON) 5 % 0-10 N MORPHOLOGY COMMENT (test code = NM MOC) PLATELET ESTIMATE (test code = ADQ PLTEST) PLATELET MORPHOLOGY (test code NORMAL = PLTMORPH) [id number] 05:43:00 Test Item Value Reference Range Interpretation Comments TROPONIN-I (test <0.02 NG/ML 0.00-0.06 N REFERENCE R BELINDA code = TROPI) TROPONIN I HEA LTHY INDIVIDUALS: <0 .06 ng/mL R/O ISCHE TUSHAR: 0.07 - 0.60 ng/ mL CUT-OFF RANGE F OR AMI: 0.60 - 1.5 ng/m L ADD ON- CT ABD PELVIS [id number] 05:04:00 FAX: Evy Hay MD [phone] [place]: St: REG Name: LIANA ASHBY [facility] : 1975 Age/S: 44[address] Unit: [id number] Loc: [address] Phys: Evy Hay [id number] Acct: [id number] Dis Date: Status: REG ER PHONE #: [phone] Exam Date: 12/01/2019 0452 FAX #: [phone] Reason: abd pain EXAMS: CPT CODE: [id number] CT ABD PELVIS W/CONT 20346 EXAM: - CT ABD PELVIS W/CONT HISTORY: Abdominal pain. TECHNIQUE: Axial tomograms through the abdomen and pelvis were obtained after intravenous contrast. Coronal and sagittal reformatted images are provided. This exam was performed according to our departmental dose-optimization program, which includes automated exposure control, adjustment of the mA and/or kV according to patient size and/or use of iterativereconstruction technique. COMPARISON: September 05, 2019. FINDINGS: The visualized lung bases are clear.Prior gastric surgery and cholecystectomy. The liver, spleen, pancreas, adrenal glands and kidneys de monstrate no significant abnormalities. The appendix has a normal appearance. The bowel is unremarkable. There is no adenopathy or free fluid. No acute osseous abnormality. The abdominal aorta is normal in size. Evaluation is limited due to artifacts and motion. IMPRESSION: No significant abnormalities demonstrated. Prior surgical changes are present. at 0504 Reported and signed by: Cheko Castellon M.D. PAGE 1 Signed Report (CONTINUED) FAX: Evy Hay MD [phone] [place]: St: REG Name: LIANA ASHBY [facility] : 1975 Age/S: 44/F [address] Unit: [id number] Loc: [address] Phys: [place] [address] Acct: [id number] Dis Date: Status: REG ER PHONE #: [phone] Exam Date: 12/01/2019 0452 FAX #: [phone] Reason: abd pain EXAMS: CPT CODE: [id number] CT ABD PELVIS W/CONT [id number] <Continued> CC: Evy Hay MD Technologist: AKILA Bryant Dt/Tm: 12/01/2019 (0501) [email or web address] Orig Print D/T: S: 12/01/2019 (0637 PAGE 2 Signed ReportB-TYPE NATRIURETIC [id number] 05:03:00 Test Item Value Reference Range Interpretation Comments B-TYPE NATRIURETIC PEPTIDE (test 264 PG/ML 5-100 H code = BNP) ADD ON- XR RIBS UNI W/CXR 3+V [id number] 04:36:00 FAX: Evy Hay MD [phone] [place]: St: REG Name: LIANA ASHBY [facility] : 1975 Age/S: 44/F [address] Unit #: [id number] Loc: [address]ERS[address] [place], [place]: [place] [address] Acct: [id number] Dis Date: Status: REG ER PHONE #: [phone] Exam Date: 12/01/2019 0411FAX #: [phone] Reason: right rib pain EXAMS: CPT CODE: [id number] XR RIBS UNI W/CXR 3+V RT [id number]: Chest one view and right RIBS 2 views. Location: H24 HISTORY: right rib pain, , COMPARISON: None available. FINDINGS: Frontal view of the chest was obtained. The lung volumes are low. There is abnormal silhouette/fullness at the right hilum. Underlying adenopathy suspected. There is prominence of central pulmonary vessels and interstitial markings. No further focal airspace opacities are seen.AP and oblique views of the right ribs were obtained. No acute fracture or dislocation is seen. Soft tissues of the right chest wall are within normal limits. IMPRESSION: 1. Fullness at the right hilum may represent underlying adenopathy. Consider further characterization with CT if of continued concern. 2. Slight prominence of central pulmonary vessels and interstitial markings may indicate edema. Further pneumonitis is not excluded. 3. No fracture or dislocation of the right ribs. at 0436 Reported and signed by: Ovidio Mosquera M.D. CC: Evy Hay MD Technologist: AHSAN PORTILLO Trntnrd Date/Time/By: 12/01/2019 (0436) : By:[email or web address] PAGE 1 Signed Report FAX: Evy Hay MD [phone] [place]: St: REG Name: FABYLIANALACY MACEDO [facility] : 1975 Age/S: 44/F [address] [facility] Unit #: [id number] Loc: E[address]ERS[address] [place], [place]: [place] [address] Acct: [id number] Dis Date: Status: REG ER PHONE #: [phone] Exam Date: 12/01/2019 0411 FAX #: [phone] Reason: right rib pain EXAMS: CPT CODE: [id number] RIBS UNI W/CXR 3+[place] [address]69 <Continued> Orig Print D/T: S: 12/01/2019 (0439) PAGE 2 SignedReportBASIC METABOLIC [id number] 04:20:00 Test Item Value Reference Range Interpretation Comments SODIUM (test code = NA) 137 mmol/l 134.0-147.0 N POTASSIUM (test code = K) 3.9 mmol/L 3.6-5.2 N CHLORIDE (test code = CL) 103 mmol/l 98.0-107.0 N CARBON DIOXIDE (test code = CO2) 25.5 mmol/l 21.0-33.0 N ANION GAP (test code = GAP) 12.4 0-20 N GLUCOSE (test code = GLU) 109 mg/dl 70.0-110.0 N BLOOD UREA NITROGEN (test code = 21 mg/dl 7.0-18.0 H BUN) CREATININE (test code = CREAT) 1.28 mg/dL 0.60-1.30 N GFR NON BLACK (test code = 48 mL/min 95-105 L GFRNONBLACK) GFR BLACK (test code = GFRBLACK) 58 mL/min 115-127 L CALCIUM (test code = CA) 8.5 mg/dl 8.0-10.5 N HEPATIC FUNCTION PANEL [id number] 04:20:00 Test Item Value Reference Range Interpretation Comments TOTAL PROTEIN (test code = PROT) 6.6 GM/DL 6.0-8.1 N ALBUMIN (test code = ALB) 2.9 gm/dL 3.2-4.7 L BILIRUBIN TOTAL (test code = 0.2 mg/dl 0.0-1.0 N BILT) BILIRUBIN DIRECT (test code = <0.1 mg/dl 0.0-0.3 N BILD) SGOT/AST (test code = AST) 16 Units/L 15.0-37.0 N SGPT/ALT (test code = ALT) 15 Units/L 12.0-78.0 N ALKALINE PHOSPHATASE TOTAL (test 117 Units/L 50.0-136.0 N code = ALKP) [id number] 04:20:00 Test Item Value Reference Range Interpretation Comments LIPASE (test code = LIP) 51 Units/L 65.0-230.0 L CBC W/MANUAL [id number] 04:09:00 Test Item Value Reference Range Interpretation Comments WHITE BLOOD CELL (test code = 20.0 K/mm3 4.5-11.0 H WBC) RED BLOOD CELL (test code = 4.29 M/mm3 3.80-5.20 N RBC) HEMOGLOBIN (test code = HGB) 12.2 gm/dL 12.0-16.0 N HEMATOCRIT (test code = HCT) 38.1 % 36.0-48.0 N MEAN CELL VOLUME (test code = 88.8 UM3 82.0-99.0 N MCV) MEAN CELL HGB (test code = MCH) 28.4 UUG 25.5-32.5 N MEAN CELL HGB CONCETRATION 32.0 gm/dL 29.0-35.5 N (test code = MCHC) RED CELL DISTRIBUTION WIDTH 15.1 % 11.5-15.0 H (test code = RDW) RED CELL DISTRIBUTION WIDTH SD 48.4 fL 34.8-50.2 N (test code = RDW-SD) PLATELET COUNT (test code = 324 K/mm3 150-400 N PLT) MEAN PLATELET VOLUME (test code 11.6 fl 7.4-10.4 H = MPV) NEUTROPHIL % (test code = NT%) 80.9 % 49.0-76.0 H IMMATURE GRANULOCYTE % (test 0.9 % 0.0-0.4 H code = IG%) LYMPHOCYTE % (test code = LY%) 10.7 % 23.0-38.0 L MONOCYTE % (test code = MO%) 7.3 % 1.0-10.0 N EOSINOPHIL % (test code = EO%) 0.1 % 1.0-5.0 L BASOPHIL % (test code = BA%) 0.1 % 0.0-1.0 N NEUTROPHIL # (test code = NT#) 16.2 K/mm3 2.4-6.3 H IMMATURE GRANULOCYTE # (test 0.19 x10 3/uL 0.00-0.07 H code = IG#) LYMPHOCYTE # (test code = LY#) 2.2 K/mm3 1.2-4.0 N MONOCYTE # (test code = MO#) 1.5 K/mm3 0.0-0.6 H EOSINOPHIL # (test code = EO#) 0.0 K/MM3 0.0-0.7 N BASOPHIL # (test code = BA#) 0.0 K/mm3 0.0-0.2 N SEGMENTED NEUTROPHILS (test % 50.0-70.0 code = SEG) LYMPHOCYTE (test code = LYMPH) % 20-40 CBC W/MANUAL [id number] 04:09:00 Test Item Value Reference Range Interpretation Comments WHITE BLOOD CELL (test code = 20.0 K/mm3 4.5-11.0 H WBC) RED BLOOD CELL (test code = 4.29 M/mm3 3.80-5.20 N RBC) HEMOGLOBIN (test code = HGB) 12.2 gm/dL 12.0-16.0 N HEMATOCRIT (test code = HCT) 38.1 % 36.0-48.0 N MEAN CELL VOLUME (test code = 88.8 UM3 82.0-99.0 N MCV) MEAN CELL HGB (test code = MCH) 28.4 UUG 25.5-32.5 N MEAN CELL HGB CONCETRATION 32.0 gm/dL 29.0-35.5 N (test code = MCHC) RED CELL DISTRIBUTION WIDTH 15.1 % 11.5-15.0 H (test code = RDW) RED CELL DISTRIBUTION WIDTH SD 48.4 fL 34.8-50.2 N (test code = RDW-SD) PLATELET COUNT (test code = 324 K/mm3 150-400 N PLT) MEAN PLATELET VOLUME (test code 11.6 fl 7.4-10.4 H = MPV) NEUTROPHIL % (test code = NT%) 80.9 % 49.0-76.0 H IMMATURE GRANULOCYTE % (test 0.9 % 0.0-0.4 H code = IG%) LYMPHOCYTE % (test code = LY%) 10.7 % 23.0-38.0 L MONOCYTE % (test code = MO%) 7.3 % 1.0-10.0 N EOSINOPHIL % (test code = EO%) 0.1 % 1.0-5.0 L BASOPHIL % (test code = BA%) 0.1 % 0.0-1.0 N NEUTROPHIL # (test code = NT#) 16.2 K/mm3 2.4-6.3 H IMMATURE GRANULOCYTE # (test 0.19 x10 3/uL 0.00-0.07 H code = IG#) LYMPHOCYTE # (test code = LY#) 2.2 K/mm3 1.2-4.0 N MONOCYTE # (test code = MO#) 1.5 K/mm3 0.0-0.6 H EOSINOPHIL # (test code = EO#) 0.0 K/MM3 0.0-0.7 N BASOPHIL # (test code = BA#) 0.0 K/mm3 0.0-0.2 N SEGMENTED NEUTROPHILS (test % 50.0-70.0 code = SEG) LYMPHOCYTE (test code = LYMPH) % 20-40 PROTHROMBIN [id number] 04:07:00 Test Item Value Reference Range Interpretation Comments PROTHROMBIN TIME 10.8 SECONDS 9.9-12.8 N PATIENT (test code = PTP) INTERNATIONAL NORMAL 0.9 0.89-1.14 N THE INR IS TO BE USED RATIO (test code = ONLY FOR MONITORING INR) ORAL ANTICOAGULANTTH ERAPY. THE FOLLOWING A RE SUGGESTED RANGE S FROM HEALTH SYSTEM LEGE OF CHEST PHYSICIANS:KEDAR CATION INR VALUEPROPHY LAXIS OF VENOUS THROM BOSIS (ORTHOPEDIC ULI ANAND) 2.0 - 3.0PROPHY LAXIS OF VENOUS THROM BOSIS (OTHER THAN HIG H-RISK SURGERY) 2.0 - 3.0TREATMENT OF DEEP VEIN THROMBOSIS OR PULMONARY EMBOL ISM 2.0 - 3.0PREVENTION OF SYSTEMIC EMBOLI SM TISSUE HEART VA LVES 2.0 - 3.0 ACUTE MYOCARDIAL INFA RCTION (TO PREVENT SYS TEMIC EMBOLISM) 2.0 - 3.0 ACUTE MYOCARDIA L INFARCTION (TO PREVENT RECURRENT INFAR CT) 2.5 - 3.0 VALVULAR HEART DISEASE 2.0 - 3 .0 ATRIAL FIBRILAT ION 2.0 - 3.0BILEAFLET MECHANICAL VALV E IN AORTIC POSITION 2.0 - 3.0MECHANICAL PROSTHETIC VALV ES (HIGH RISK) 2.5 - 3.5PRESENCE OF LUPUS ANTICOAGULANT O R ANTIPHOSPHOLIPI D ANTIBODIES 2.5 - 3.5 Specimen comments: Clean CatchIs patient on anticoagulants? NBASIC METABOLIC [id number] 04:06:00 Test Item Value Reference Range Interpretation Comments SODIUM (test code = NA) 137 mmol/l 134.0-147.0 N POTASSIUM (test code = K) 3.9 mmol/L 3.6-5.2 N CHLORIDE (test code = CL) 103 mmol/l 98.0-107.0 N CARBON DIOXIDE (test code = CO2) 25.5 mmol/l 21.0-33.0 N ANION GAP (test code = GAP) 12.4 0-20 N GLUCOSE (test code = GLU) mg/dl 70.0-110.0 BLOOD UREA NITROGEN (test code = mg/dl 7.0-18.0 BUN) CREATININE (test code = CREAT) mg/dL 0.60-1.30 GFR NON BLACK (test code = mL/min 95-105 GFRNONBLACK) GFR BLACK (test code = GFRBLACK) mL/min 115-127 CALCIUM (test code = CA) mg/dl 8.0-10.5 HEPATIC FUNCTION PANEL [id number] 04:06:00 Test Item Value Reference Range Interpretation Comments TOTAL PROTEIN (test code = PROT) gm/dL 6.4-8.2 ALBUMIN (test code = ALB) gm/dl 3.2-4.7 BILIRUBIN TOTAL (test code = BILT) mg/dl 0.0-1.0 BILIRUBIN DIRECT (test code = BILD) mg/dl 0.0-0.3 SGOT/AST (test code = AST) Units/L 15.0-37.0 SGPT/ALT (test code = ALT) Units/L 12.0-78.0 ALKALINE PHOSPHATASE TOTAL (test Units/L 50.0-136.0 code = ALKP) [id number] 04:06:00 Test Item Value Reference Range Interpretation Comments LIPASE (test code = LIP) Units/L 65.0-230.0 URINALYSIS [id number] 03:37:00 Test Item Value Reference Range Interpretation Comments UA COLOR (test code = YELLOW COLU) UA APPEARANCE (test code CLDY = APPU) UA GLUCOSE DIPSTICK (test NORMAL mg/dl NORMAL code = DGLUU) UA BILIRUBIN DIPSTICK NEGATIVE mg/dL NEGATIVE (test code = BILU) UA KETONE DIPSTICK (test NEGATIVE mg/dl NEGATIVE code = KETU) UA SPECIFIC GRAVITY (test 1.015 1.000-1.030 code = SGU) UA BLOOD DIPSTICK (test NEGATIVE Jorge Alberto/micL NEGATIVE code = WINSTON) UA PH DIPSTICK (test code 6.5 5.0-9.0 = FOSTER) UA PROTEIN DIPSTICK (test NEGATIVE mg/dl NEGATIVE code = PROU) UA UROBILINIOGEN DIPSTICK NORMAL mg/dl NORMAL (test code = URO) UA NITRITE DIPSTICK (test NEGATIVE NEGATIVE code = SU) UA LEUKOCYTE ESTERASE 25 Debi/micL Debi/micL NEGATIVE A DIPSTICK (test code = LEUU) UA WBC (test code = WBCU) 4-9 WBC/HPF NONE A UA RBC (test code = RBCU) 3-5 RBC/HPF 0-3 UA EPITHELIAL CELLS (test 2-5 EPI/HPF 0-3 A code = EPIU) UA BACTERIA (test code = FEW NONE BACU) UA AMORPHOUS SEDIMENT MANY NONE (test code = AMORU) UR HCG [id number] 03:34:00 Test Item Value Reference Range Interpretation Comments UR HCG QUAL (test code = HCGQLU) NEGATIVE NEGATIVE Specimen comments: Clean CatchURINALYSIS [id number] 03:30:00 Test Item Value Reference Range Interpretation Comments UA COLOR (test code = YELLOW COLU) UA APPEARANCE (test code CLDY = APPU) UA GLUCOSE DIPSTICK (test NORMAL mg/dl NORMAL code = DGLUU) UA BILIRUBIN DIPSTICK NEGATIVE mg/dL NEGATIVE (test code = BILU) UA KETONE DIPSTICK (test NEGATIVE mg/dl NEGATIVE code = KETU) UA SPECIFIC GRAVITY (test 1.015 1.000-1.030 code = SGU) UA BLOOD DIPSTICK (test NEGATIVE Jorge Alberto/micL NEGATIVE code = WINSTON) UA PH DIPSTICK (test code 6.5 5.0-9.0 = FOSTER) UA PROTEIN DIPSTICK (test NEGATIVE mg/dl NEGATIVE code = PROU) UA UROBILINIOGEN DIPSTICK NORMAL mg/dl NORMAL (test code = URO) UA NITRITE DIPSTICK (test NEGATIVE NEGATIVE code = SU) UA LEUKOCYTE ESTERASE 25 Debi/micL Debi/micL NEGATIVE A DIPSTICK (test code = LEUU) UA WBC (test code = WBCU) WBC/HPF NONE UA RBC (test code = RBCU) RBC/HPF 0-3 UA EPITHELIAL CELLS (test EPI/HPF 0-3 code = EPIU) UA BACTERIA (test code = NONE BACU) - XR ELBOW 3+V [id number] 20:54:00 FAX: Keon Hawthorne MD [place]: St: REG Name: LIANA ASHBY [facility] : 1975 Age/S: 44/F [address] [facility] Unit #: [id number] Loc: [address] Phys: [place] [id number] Acct: [id number] Dis Date: Status: REG ER PHONE #: [phone] Exam Date: 11/21/20192050 FAX #: [phone] Reason: trauma EXAMS: CPT CODE: [id number] XR ELBOW 3+V RT [id number] EXAMINATION: - XR ELBOW 3+V RT LOCATION: H61 HISTORY/INDICATION: trauma COMPARISON: None. VIEWS SUBMITTED: 3 views of the right elbow.FINDINGS: No fracture or dislocation. No fat pad elevation to suggest joint effusion. Soft tissues are unremarkable. IMPRESSION: Unremarkable right elbow radiograph. at 2053 Reported and signed by: Keena Up CC: Keon Hawthorne MD Technologist:JHOAN OWENS Trnscrd Date/Time/By: 11/21/2019 (2053) : By: [email or web address] PAGE 1 Signed Report FAX: Keon Hawthorne MD [place]: St: REG Name: LIANA ASHBY [facility] : 1975 Age/S: 44/F [address] [facility] Unit #: [id number] Loc: E.ERS2 [place], [place] Phys: [place] [address] Acct: [id number] Dis Date: Status: REG ER PHONE #: [phone] Exam Date: 11/21/20192050 FAX #: [phone] Reason: trauma EXAMS: CPT CODE: [id number] XR ELBOW 3+V RT [id number] <Continued> Orig Print D/T: S: 11/21/2019 (2056) PAGE 2 Signed Report- XR SHOULDER 2 + V [id number] 20:53:00 FAX: Keon Hawthorne MD [place]: St: REG Name: LIANA ASHBY [facility] : 1975 Age/S: 44/F [address] [facility] Unit #: [id number] Loc: E[facility] [place], [place]: [place] [address] Acct: [id number] Dis Date: Status: REG ER PHONE #: [phone] Exam Date: 11/21/20192050 FAX #: [phone] Reason: trauma EXAMS: CPT CODE: [id number] XR SHOULDER 2 + V RT [address]86 EXAMINATION: - XR SHOULDER 2 + V RT LOCATION: H 61 HISTORY/INDICATION: trauma COMPARISON: None. TECHNIQUE: 2 frontal views in internal and external rotation and scapular Y view of the right shoulder. FINDINGS: Glenohumeral relationship is maintained. No acute fracture or dislocation. AC joint is maintained. Partially imaged lungis clear. IMPRESSION: Normal right shoulder radiograph. at 2052 Reported and signed by: Keena Up CC: Keon Hawthorne MD Technologist: JHOAN OWENS Trntnrd Date/Time/By: 11/21/2019 (2052) : By: [email or web address] PAGE 1 Signed Report FAX: Keon Hawthorne MD [place]: St: REG ----- Name: LIANA ASHBY [facility] : 1975 Age/S: 44/F [address] [id number] Loc: [address] Phys: [place] [address] Acct: [id number] DisDate: Status: REG ER PHONE #: [phone] Exam Date: 11/21/20192050 FAX #: [phone] Reason: trauma EXAMS: CPT CODE: [id number] XR SHOULDER 2 + V RT 19865 <Continued> Orig Print D/T: S: 11/21/2019 (2055) PAGE 2 Signed Report- XR CLAVICLE COMP RT 2019-11-21 20:52:00 FAX: Keon Hawthorne MD [place]: St: REG Name: LIANA ASHBY [facility] : 1975 Age/S: 44/F [address] [facility] Unit #: [id number] Loc: TETE2 [place], [place]: [place] [address] Acct: [id number] Dis Date: Status: REG ER PHONE #: [phone] Exam Date: 11/21/20192050 FAX #: [phone] Reason: trauma EXAMS: CPT CODE: [id number] [address] EXAMINATION: - XR CLAVICLE COMP RT LOCATION: 1 HISTORY/INDICATION: trauma COMPARISON: None. VIEWS SUBMITTED: 2 views of the right clavicle FINDINGS: No acute fracture or dislocation. AC joint is maintained. Glenohumeral relationship is maintained. Image lungs are clear. IMPRESSION: No acute osseous abnormality. at 2051 Reported and signed by: Keena Up CC: Keon Hawthorne MD Technologist: JHOAN OWENS Trnscrd Date/Time/By: 11/21/2019 (2051) : By: [email or web address] PAGE 1 Signed Report FAX: Keon Hawthorne MD [place]: St: REG Name: LIANA ASHBY [facility] : 1975 Age/S: 44/F[address] [facility] Unit #: [id number] [facility] [place], [place]: [place] [address] Acct: [id number] Dis Date: Status: REG ER PHONE #: [phone] Exam Date: 11/21/20192050 FAX #: [phone] Reason: trauma EXAMS: CPT CODE: [id number] [address] <Continued> Orig Print D/T: S: 11/21/2019 (2054) PAGE 2 Signed Report- XR WRIST 3 + V [id number] 20:51:00 FAX: Keon Hawthorne MD [place]: St: REG Name: LIANA ASHBY [facility] : 1975 Age/S: 44/F [address] [facility] Unit #: [id number] Loc: [address] [place]: [place] [address] Acct: [id number] Dis Date: Status: REG ER PHONE #: [phone] Exam Date: 11/21/20192050 FAX #: [phone] Reason: trauma EXAMS: CPT CODE: [id number] XR WRIST 3 + V RT 55786 EXAMINATION: - XR WRIST 3 + V RT LOCATION: H61 HISTORY/INDICATION: trauma COMPARISON: None. VIEWS SUBMITTED: Frontal, oblique and lateral views of the right wrist. FINDINGS: Carpal alignment is maintained. There is no acute fracture or dislocation. Soft tissues are unremarkable. IMPRESSION: No acute osseous abnormality demonstrated. at 2050 Reported and signed by: Keena XiaoFormerly [facility]: Keon Hawthorne MD Technologist: JHOAN OWENS Trnscrd Date/Time/By: 11/21/2019 (2050) : By: [email or web address] PAGE 1 Signed Report FAX: Keon Hawthorne MD [place]: St: REG Name: LIANA ASHBY [facility] : 1975 Age/S: 44/F [address] [facility] Unit #: [id number] Loc: E.ERS2 [place], [place]: [place] [address] Acct: [id number] Dis Date: Status: REG ER PHONE #: [phone] Exam Date: 2050 FAX #: [phone] Reason: trauma EXAMS: CPT CODE: [id number] XR WRIST 3 + V RT 69200<Continued> Orig Print D/T: S: 11/21/2019 (2054) PAGE 2 Signed [id number] 05:04:00 Test Item Value Reference Range Interpretation Comments APPEARANCE (test code = Clear Clear 5857835849) COLOR (test code = Straw Yellow A 3216942426) PH (test code = 4.8-8.0 7444442758) SP GRAVITY (test code = 1.003-1.030 1060655026) GLU U QUAL (test code = Normal Normal 6107329131) BLOOD (test code = Negative Negative 2184861747) KETONES (test code = Negative Negative 5823861481) PROTEIN (test code = Negative Negative 2887-8) UROBILIN (test code = Normal Normal 1291177993) BILIRUBIN (test code = Negative Negative 4491992380) NITRITE (test code = Negative Negative 4815542204) LEUK NEREYDA (test code = Negative Negative 7891860525) RBC/HPF (test code = See_Comment H [Autom ated message] 4429658085) The system [employer] generated this result transmitted ref erence range: 0 - 3 HP F. The reference range was not used to int erpret this result as normal/abnormal . WBC/HPF (test code = See_Comment [Autom ated message] 5722454756) The system [employer] generated this result transmitted ref erence range: 0 - 5 HP F. The reference range was not used to int erpret this result as normal/abnormal . BACTERIA (test code = Negative Negative 9182390944) MUCOUS (test code = Slight Negative LPF A 7950727911) SQ EPITH (test code = HPF 4529596703) Lab Interpretation (test Abnormal code = 56689-5) [facility]- XR SHOULDER 2 + V [id number] 04:25:00 FAX: Adiel Lopez [phone] [place]: St: REG Name: LIANA ASHBY [facility] : 1975 Age/S: 44/F [address] [place] [address] Unit #: [id number] Loc: [place] [address] Phys: Adiel Lopez Acct: [id number] Dis Date: Status: REG ER PHONE #: [phone] Exam Date: 11/20/2019 034 FAX #: [phone] Reason: Right shoulder tenderness, after forcer interna EXAMS: CPT CODE: [id number] XR SHOULDER 2 + V RT [address]157 EXAM: CR, XR SHOULDER 2 V RT: 11/20/2019, 0333 hours History: Right shoulder tenderness. Right shoulder pain. Back pain. COMPARISON: None Findings correlate frontal and lateral radiograph of the right shoulder are submitted. Alignment is satisfactory. Glenohumeral joint and acromioclavicular joints are intact. There are no acute fracture or dislocation of the right shoulder. Soft tissues are unremarkable. No radiopaque foreign body seen. Visualized right hemithorax is unremarkable. Ifindicated, follow-up radiograph or CT scan can be obtained for complete assessment. IMPRESSION: 1. No acute fracture or dislocation of the right shoulder is seen. SL:[JSYED-H] Electronically Signedby Jeovanny Schilling on 11/20/2019 at 3324 Reported and signed by: Popeye Schilling M.D. CC: Adiel ASHBY Technologist: RT Romelia(Rosaura) Trntncoty Date/Time/By: 11/20/2019 (0425) : By: [email or web address] Orig Print D/T: S: 11/20/2019 (0420) PAGE 1 Signed ReportHepatic Function Panel (ALB, T.PRO, BILI T, BU/BC, ALT, AST, ALK PHOS)2019-11-20 03:29:00 Test Item Value Reference Range Interpretation Comments TOTAL BILI (test code = 5011351000) 0.3 mg/dL 0.1-1.1 BILI UNCON (test code = 2193335050) 0.4 mg/dL 0.1-1.1 BILI CONJ (test code = 8053874236) 0.0 mg/dL 0-0.3 T PROTEIN (test code = 9508897284) 7.0 g/dL 6.3-8.2 ALBUMIN (test code = 5202327560) 3.7 g/dL 3.5-5 ALK PHOS (test code = 9553102039) 105 U/L 34-122 ALTv (test code = 1742-6) 11 U/L 5-35 AST(SGOT) (test code = 2768709889) 19 U/L 13-40 Lab Interpretation (test code = Normal 43537-9) [facility] Met[facility] (NA, K, CL, CO2, GLUCOSE, BUN, CREATININE, CA)2019-11-20 03:28:00 Test Item Value Reference Range Interpretation Comments NA (test code = 137 mmol/L 135-145 8622879968) K (test code = 3.9 mmol/L 3.5-5 5630344861) CL (test code = 108 mmol/L 98-108 9604544517) CO2 TOTAL (test code = 22 mmol/L 23-31 L 6129334854) AGAP (test code = 2-16 5640992402) BUN (test code = 12 mg/dL 7-23 3640838185) GLUCOSE (test code = 112 mg/dL 70-110 H 8500113116) CREATININE (test code = 1.05 mg/dL 0.5-1.04 H 4245340577) CALCIUM (test code = 9.2 mg/dL 8.6-10.6 1123256036) eGFR Calculation mL/min/1.73m2 (Non-) (test code = 9796917622) eGFR Calculation mL/min/1.73m2 () (test code = 8026731745) MIKY (test code = MIKY) Association of Glomerular Filtration Rate (GFR) and Staging of Kidney Disease* + --+ --+ ------+| GFR (mL/min/1.73 m2) ?| With Kidney Damage ?| ?Without Kidney Damage+ --------+ --------+ +| ?>90 ?| ?Stage one ?| ? Normal ?+ ---+ ---+ -------+| ?60-89 ?| ?Stage two ?| ? Decreased GFR ? + --+ --+ ------+| ?30-59 ?| ?Stage three ?| ? Stage three ? + --+ --+ ------+| ?15-29 ?| ?Stage four ? | ? Stage four ?+ ---+ ---+ -------+| ?<15 (or dialysis) ? ?| ?Stage five ? | ? Stage five ?+ ---+ ---+ -------+ *Each stage assumes the associated GFR level has been in effect for at least three months. ?Stages 1 to 5, with or without kidney disease, indicate chronic kidney disease. Notes: Determination of stages one and two (with eGFR >59mL/min/1.73 m2) requires estimation of kidney damage for at least three months as defined by structural or functional abnormalities of the kidney, manifested by either:Pathological abnormalities or Markers of kidney damage (including abnormalities in the composition of the blood or urine or abnormalities in imaging tests). Lab Interpretation Abnormal (test code = 44124-3) [facility] CenterLipase [id number] 03:28:00 Test Item Value Reference Range Interpretation Comments LIPASE (test code = 8054941206) 26 U/L 0-220 Lab Interpretation (test code = Normal 07048-1) [facility] CenterCB WITH [id number] 03:23:00 Test Item Value Reference Range Interpretation Comments WBC (test code = See_Comment H [Automated 4990-2) message] The sy stem which generated this result transmitted reference range : 4.30 - 11.10 10*3/?L. The reference range was not used to interpret this result as normal/abnormal . RBC (test code = See_Comment [Automated 789-8) message] The sy stem which generated this result transmitted reference range : 3.93 - 5.25 10*6/?L. The reference range was not used to interpret this result as normal/abnormal . HGB (test code = 12.0 g/dL 11.6-15 718-7) HCT (test code = 36.9 % 35.7-45.2 4544-3) MCV (test code = 86.8 fL 80.6-95.5 787-2) MCH (test code = 28.2 pg 25.9-32.8 785-6) MCHC (test code = 32.5 g/dL 31.6-35.1 786-4) RDW-SD (test code = 45.1 fL 39-49.9 70656-3) RDW-CV (test code = 14.2 % 12-15.5 788-0) PLT (test code = See_Comment [Automated 777-3) message] The sy stem which generated this result transmitted reference range : 166 - 358 10*3/ ?L. The reference r belnida was not used to interpret this result as normal/abnormal . MPV (test code = 11.4 fL 9.5-12.9 81323-2) NRBC/100 WBC (test See_Comment [Automat ed code = 6276551741) message] The system which generated this result transmitted reference range : 0.0 - 10.0 /100 WBCs. The refer ence range was not u sed to interpret th is result as normal/abnormal . NRBC x10^3 (test code <0.01 See_Comment [Auto mated = 5535902803) message] The s ystem which generated this result transmitted reference range : 10*3/?L. The reference range was not used to interpret this result as normal/abnormal . GRAN MAT (NEUT) % 68.3 % (test code = 770-8) IMM GRAN % (test code 1.00 % = 5836797895) LYMPH % (test code = 18.5 % 736-9) MONO % (test code = 7.3 % 5905-5) EOS % (test code = 4.5 % 713-8) BASO % (test code = 0.4 % 706-2) GRAN MAT x10^3(ANC) 9.06 10*3/uL 1.88-7.09 H (test code = 1813774504) IMM GRAN x10^3 (test 0.13 10*3/uL 0-0.06 H code = 8503332177) LYMPH x10^3 (test code 2.45 10*3/uL 1.32-3.29 = 731-0) MONO x10^3 (test code 0.97 10*3/uL 0.33-0.92 H = 742-7) EOS x10^3 (test code = 0.59 10*3/uL 0.03-0.39 H 711-2) BASO x10^3 (test code 0.05 10*3/uL 0.01-0.07 = 704-7) Lab Interpretation Abnormal (test code = 88662-9) [facility] CenterXR ABDOMEN 2 [id number] 03:03:20 Nonobstructive bowel gas pattern. Preliminary Report Dictated by Resident: Rubens Almonte MD., have reviewed this study and agree with the abovereport.EXAM: XR ABDOMEN 2 VW HISTORY: lower abdominal pain COMPARISON: Abdominal radiograph 10/04/2018 FINDINGS: The bowel gas pattern is nonob structive. Cholecystectomy clips are locatedin the right upper quadrant. Surgical material is seen over the left upperquadrant. [facility], Radiant Results Inft User - 09/21/2019 10:04 PM CDTEXAM: XR ABDOMEN2 VWHISTORY: lower abdominal pain COMPARISON: Abdominal radiograph 10/04/2018FINDINGS:The bowel gas pattern is nonobstructive. Cholecystectomy clips are locatedin the right upper quadrant. Surgical material is seen over the left upperquadrant.IMPRESSIONNonobstructive bowel gas pattern.Preliminary Report Dictated by Resident: Rubens Esparza MD., have reviewed this study and agree with theabovereport.[facility] CenterCT HEAD WO [id number] 02:28:38 No acute intracranial abnormality. Partial empty sella configuration, nonspecific finding but can be associated with headache in the setting of benign intracranial hypertensionif clinically suspected. Clinical correlation is recommended.EXAM: CT HEAD WO CONTRAST HISTORY: Headache, acute, severe, worstHA of life TECHNIQUE: CT of the head was performed without intravenous contrast.Sagittal and coronalreformats were generated. COMPARISON: CT head dated 10/25/2018. FINDINGS: The ventricles and sulci arenormal in caliber and configuration. Nohydrocephalus, midline shift or pathological extra-axial fluid collectionis present. The basal cisterns are unremarkable. There is no acute intracranial hemorrhage or significant mass effect. Noparenchymal attenuation abnormality. The gaviria-white matter differentia tionis preserved. Partial empty sella configuration. The mastoid air cells and paranasal air sinusesare clear. The calvariumand central skull base are unremarkable. 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 Nohydrocephalus, midline shift or pathological extra-axial fluid collectionis present. The basal cisterns are unremarkable.There is no acute intracranial hemorrhage or significant mass effect. Noparenchymal attenuation abnormality. The gaviria-white matter differentiationis preserved.Partial empty sella configuration.The mastoid air cells and paranasal air sinuses are clear. The calvariumand central skull base are unremarkable.IMPRESSIONNo acute intracranial abnormality. Partial empty sella configuration, nonspecific finding but can beassociated with headache in the setting of benign intracranial hypertensionif clinically suspected. Clinical correlation is recommended.[facility]. METABOLIC PANEL (64190)2019-09-22 01:40:00 Test Item Value Reference Range Interpretation Comments NA (test code = 140 mmol/L 135-145 0412457750) K (test code = 3.9 mmol/L 3.5-5 1349961788) CL (test code = 108 mmol/L 98-108 9771741177) CO2 TOTAL (test code = 23 mmol/L 23-31 9094831912) AGAP (test code = 2-16 7362220240) BUN (test code = 12 mg/dL 7-23 2712373754) GLUCOSE (test code = 106 mg/dL 70-110 1353282677) CREATININE (test code = 1.19 mg/dL 0.5-1.04 H 6599634715) TOTAL BILI (test code = 0.3 mg/dL 0.1-1.7 1315554568) CALCIUM (test code = 9.4 mg/dL 8.6-10.6 3046898013) T PROTEIN (test code = 7.2 g/dL 6.3-8.2 7233508958) ALBUMIN (test code = 4.0 g/dL 3.5-5 4571208060) ALK PHOS (test code = 124 U/L 34-122 H 7411454376) ALTv (test code = 15 U/L 5-35 1742-6) AST(SGOT) (test code = 25 U/L 13-40 7099290307) eGFR Calculation mL/min/1.73m2 (Non-) (test code = 7854101687) eGFR Calculation mL/min/1.73m2 () (test code = 9383545219) MIKY (test code = MIKY) Association of Glomerular Filtration Rate (GFR) and Staging of Kidney Disease* + --+ --+ ------+| GFR (mL/min/1.73 m2) ?| With Kidney Damage ?| ?Without Kidney Damage+ --------+ --------+ +| ?>90 ?| ?Stage one ?| ? Normal ?+ ---+ ---+ -------+| ?60-89 ?| ?Stage two ?| ? Decreased GFR ? + --+ --+ ------+| ?30-59 ?| ?Stage three ?| ? Stage three ? + --+ --+ ------+| ?15-29 ?| ?Stage four ? | ? Stage four ?+ ---+ ---+ -------+| ?<15 (or dialysis) ? ?| ?Stage five ? | ? Stage five ?+ ---+ ---+ -------+ *Each stage assumes the associated GFR level has been in effect for at least three months. ?Stages 1 to 5, with or without kidney disease, indicate chronic kidney disease. Notes: Determination of stages one and two (with eGFR >59mL/min/1.73 m2) requires estimation of kidney damage for at least three months as defined by structural or functional abnormalities of the kidney, manifested by either:Pathological abnormalities or Markers of kidney damage (including abnormalities in the composition of the blood or urine or abnormalities in imaging tests). Lab Interpretation Abnormal (test code = 61450-8) [facility] CenterLIPASE2020-05-[facility] 01:40:00 Test Item Value Reference Range Interpretation Comments LIPASE (test code = 8972729340) 32 U/L 0-220 Lab Interpretation (test code = Normal 32394-3) [facility] CenterMAGNESIUM2020-05-06 01:40:00 Test Item Value Reference Range Interpretation Comments MAGNESIUM (test code = 0657372640) 2.2 mg/dL 1.7-2.4 Lab Interpretation (test code = Normal 15960-1) [facility] CenterAD / [facility] - DRUG SCREEN [id number] 23:48:00 Test Item Value Reference Range Interpretation Comments BENZO U (test code = Negative Negative 7765281177) BLANCA U (test code = Negative Negative 0533624713) AMPHET (test code = Presumptive Negative A 3067425561) Positive THC (test code = Negative Negative 1125987910) METHADONE (test code Negative Negative = 5800740284) Meth U (test code = Negative Negative 4727231905) OPIATES (test code = Negative Negative 6243245261) Cocaine Metabolite Negative Negative (test code = 7329479084) PROPOXY (test code = Negative Negative 5590382342) Tric U (test code = Presumptive Negative A Confirma tion of 3018283937) Positive Presumptive Positive TCA result requires physician order and this will b e sent to referen ce lab. PCP (test code = Negative Negative 1349395497) OXYCOD (test code = Negative Negative 2409312082) MIKY (test code = Urine Drug Cutoff MIKY) Ranges Benzodiazepines: ? ? 150 ng/mLBarbiturates : ?200 ng/mLAmphetamine: ? 500 ng/mLCannabinoids : ?50 ?ng/mLMethadone: ? 200 ng/mLMethamphetam ine: ? ? 500 ng/mL Opiates: ? 100 ng/mL or 2000 ng/mLCocaine: ? 150 ng/mLPropoxyphene : ?300 ng/mLTricyclics: ?300 ng/mLOxycodone: ? 100 ng/mLPCP: ? 25 ?ng/mL The results are to be used only for medical (i.e., treatment) purposes. Unconfirmed screening results must not be used for non-medical purposes (e.g., employment testing, legal testing). Lab Interpretation Abnormal (test code = 42722-4) [facility] CenterURINALYSIS2020-05-05 23:39:00 Test Item Value Reference Range Interpretation Comments APPEARANCE (test code = Cloudy Clear A 3641913434) COLOR (test code = Yellow Yellow 7116577776) PH (test code = 4.8-8.0 3162224046) SP GRAVITY (test code = 1.003-1.030 9029196955) GLU U QUAL (test code = Negative Negative 6857552000) BLOOD (test code = Negative Negative 6851309016) KETONES (test code = Negative Negative 4519902209) PROTEIN (test code = Negative Negative 2887-8) UROBILIN (test code = 0.2 mg/dL See_Comment [Auto mated message] 0877602035) The system [employer] generated this result transmit kody reference range : 0-1.0 mg/dL. Th e reference range was not used to interpret this result as normal/abnormal . BILIRUBIN (test code = Negative Negative 1441058282) NITRITE (test code = Negative Negative 2197736270) LEUK NEREYDA (test code = Negative Negative 0965754312) RBC/HPF (test code = <1 See_Comment [Autom ated message] 7261698516) The system [employer] generated this result transmit kody reference range : 0 - 3 HPF. The refe rence range was not u sed to interpret th is result as normal/abnormal . WBC/HPF (test code = See_Comment [Autom ated message] 1319572782) The system [employer]ap[employer] generated this result transmit kody reference range : 0 - 5 HPF. The refe rence range was not u sed to interpret th is result as normal/abnormal . BACTERIA (test code = Few Negative A 4017005299) AMORPHOUS (test code = Moderate Rare HPF A 0257156664) Lab Interpretation (test Abnormal code = 35700-4) [facility] WITH [id number] 23:20:00 Test Item Value Reference Range Interpretation Comments WBC (test code = See_Comment [Automated 6690-2) message] The sy stem which generated this result transmitted reference range : 4.30 - 11.10 10*3/?L. The reference range was not used to interpret this result as normal/abnormal . RBC (test code = See_Comment [Automated 789-8) message] The sy stem which generated this result transmitted reference range : 3.93 - 5.25 10*6/?L. The reference range was not used to interpret this result as normal/abnormal . HGB (test code = 11.9 g/dL 11.6-15 718-7) HCT (test code = 37.2 % 35.7-45.2 4544-3) MCV (test code = 88.8 fL 80.6-95.5 787-2) MCH (test code = 28.4 pg 25.9-32.8 785-6) MCHC (test code = 32.0 g/dL 31.6-35.1 786-4) RDW-SD (test code = 52.4 fL 39-49.9 H 88909-9) RDW-CV (test code = 16.2 % 12-15.5 H 788-0) PLT (test code = See_Comment [Automated 777-3) message] The sy stem which generated this result transmitted reference range : 166 - 358 10*3/ ?L. The reference r belinda was not used to interpret this result as normal/abnormal . MPV (test code = 11.2 fL 9.5-12.9 70875-3) NRBC/100 WBC (test See_Comment [Automat ed code = 6506433751) message] The system which generated this result transmitted reference range : 0.0 - 10.0 /100 WBCs. The refer ence range was not u sed to interpret th is result as normal/abnormal . NRBC x10^3 (test code <0.01 See_Comment [Auto mated = 1807880726) message] The s ystem which generated this result transmitted reference range : 10*3/?L. The reference range was not used to interpret this result as normal/abnormal . GRAN MAT (NEUT) % 67.0 % (test code = 770-8) IMM GRAN % (test code 0.40 % = 9148045368) LYMPH % (test code = 20.4 % 736-9) MONO % (test code = 8.5 % 5905-5) EOS % (test code = 3.3 % 713-8) BASO % (test code = 0.4 % 706-2) GRAN MAT x10^3(ANC) 6.83 10*3/uL 1.88-7.09 (test code = 4311988736) IMM GRAN x10^3 (test 0.04 10*3/uL 0-0.06 code = 3463705071) LYMPH x10^3 (test code 2.08 10*3/uL 1.32-3.29 = 731-0) MONO x10^3 (test code 0.87 10*3/uL 0.33-0.92 = 742-7) EOS x10^3 (test code = 0.34 10*3/uL 0.03-0.39 711-2) BASO x10^3 (test code 0.04 10*3/uL 0.01-0.07 = 704-7) Lab Interpretation Abnormal (test code = 05772-2) [facility] Coronavirus [id number] 16:14:00 Test Item Value Reference Range Interpretation Comments Novel Coronavirus Negative Negative Positive r esults are 2019 Inhouse (test indicativ e of the presence code = ZOWVQ77DV) ofSARS-CoV -2 RNA, clinical correlation wit h patient historyand othe r diagnostic info rmation is necessary to determinepatien t infection status. Positiv e results do not rule out bacterial infection or co -infection with other viru ses. Negative result s do not preclude SARS-C oV-2 infection andsh ould not be used as the south e basis for patient managementdecis ions. Negative result s must be combined with otherclinical observations, p atient history, and epidemiological information . Detection of SARS-CoV-2 RNA may be affe cted bysample collec tion methods, storag e conditions, and /or stageof infection. Karyna l RNA mutations, vacc inations, antiviraltherap eutics, antibiotics, chemotherapeuti c orimmunosuppres tia drugs have not been e valuated for effectson d etection. Results are for the identification of SARS-CoV-2 RNA usingthe Avila M2000 Sy stem under the FDA Emergen cy UseAuthorizatio n. The testing is perf ormed by [facility] in the procedures for the Avila M2000 molecular diagnostic SARS-CoV-2 assa y in vitro. Testing Criteria: Cough Shortness of Breath- DUP AB/PEL/SC/[id number] 02:50:00 Name: LIANA ASHBY [facility] : 1975 Age/S: 44 / F [address] [place] [address] Unit #: [id number] Loc: [place] [address] Phys: Poornima Horowitz Acct: [id number] Dis Date: Status: REG ER PHONE #: [phone] Exam Date: 09/05/2019238 FAX #: [phone] Reason: see US Pelvic Non OB Complete EXAMS: CPT CODE: [id number] DUP AB/PEL/SC/LTD 78087 STUDY: - US PELVIS COMPLETE, - US TRANSVAGINAL NON OB, - DUP AB/PEL/SC/LTD 09/05/2019 1:38 AM Ordering Physician: Poornima Horowitz PatientName: LIANA ASHBY MR: [id number] : 1975; Age: 44 years y/o Female Clinical Indication: F ollow-up abnormal right ovary and recent CTA. Comparison: CT abdomen and pelvis 09/05/2019 TRANSABDOMINAL AND TRANSVAGINAL PELVIC ULTRASOUND: Technique: Grayscale, color, and Doppler transabdominal and transvaginal imaging of the pelvis was performed with standard technique. TRANSABDOMINAL PELVIC ULTRASOUND: UTERUS: Normal size uterus measuring 8.2 x 3.4 x 4.5 cm. No focal myometrial lesion. Normal thickness endometrial stripe measuring 4.5 mm. RIGHT OVARY AND ADNEXA: General: Normal size right ovary measuring 4.4 x 2.8 x 2.9 cm containing a 2.6 cm containing minimal low-level internal echoes versus artifact. Doppler: Not performed. LEFT OVARY AND ADNEXA: General: Never well visualized. Doppler: Not performed. URINARY BLADDER: Normal for degree of distention present containing anechoic urine. FLUID: None. OTHER FINDINGS: None. TRANSVAGINAL PELVIC ULTRASOUND: PAGE 1 Signed Report (CONTINUED) Name: LIANA ASHBY : 1975 Age/S: 44 / F [address] Unit #: [id number] Loc: [place] [address] Phys: Willa Horowitzie Karol [facility] Acct: [id number] Dis Date: Status: REG ER PHONE #: [phone] Exam Date: 09/05/2019238 FAX #: [phone] Reason: see US Pelvic Non OB Complete EXAMS: CPT CODE: [id number] DUP AB/PEL/SC/LTD 11015 (Continued) Endovaginal ultrasound was performed to better visualize the endometrial stripe and the adnexal regions. UTERUS: Normal size uterus measuring 7.6 x 3.6 x 4.5 cm. No focal myometrial lesion. Mildly limited visualization of the normal thickness endometrial stripe measuring 5.60 m. RIGHT OVARY AND ADNEXA: General: The right ovary isbetter visualized measuring 4.1 x 2.9 x 2.7 cm nearly completely replaced by a mildly complex cyst measuring 3.5 x 2.6 x 2.1 cm containing a thin septation and low-level internal echoes. Doppler: Normal low resistance arterial and venous blood flow is demonstrated. LEFT OVARY AND ADNEXA: General: Never well visualized. Doppler: Not performed. URINARY BLADDER: Decompressed. FLUID: None. OTHER FINDINGS: None. IMPRESSION: Mildly complex right ovarian cyst measuring 3.5 x 2.6 x 2.1 cm as above discussed. Normal right ovarian blood flow without torsion. Short interval follow-up pelvic ultrasound is recommended in 2-3 menstrual cycles. Nonvisualized left ovary. SL: TPAINTER-H PAGE 2 Signed Report (CONTINUED) Name: LIANA ASHBY : 1975 Age/S: 44 / F [address] [place] [address] Unit #: [id number] Loc: [place] [address] Phys: Poornima Horowitz [facility] Acct: [id number] Dis Date: Status: REG ER PHONE #: [phone] Exam Date: 09/05/2019238 FAX #: [phone] Reason: see US Pelvic Non OB Complete EXAMS: CPT CODE: [id number] DUP AB/PEL/SC/LTD 25867 (Continued) Electronically Sign ed by Jeovanny Caceres on 09/05/2019 at 0250 Reported and signed by: Jono Caceres M.D. CC: Poornima Horowitz Technologist: Kristyn Wilson RDMS(BR)(AB) Trnscb Date/Time: 09/05/2019 (249) [email or web address] Orig Print D/T: S: 09/05/2019 (252) Probe: PAGE 3 Signed Report- US TRANSVAGINAL NON [id number] 02:50:00 Name: LIANA ASHBY [facility] : 1975 Age/S: 44 / F [address] [place] [address] Unit#: [id number] Loc: [place] [address] Phys: Poornima Horowitz Acct: [id number] Dis Date: Status: REG ER PHONE #: [phone] Exam Date: 09/05/2019 023 FAX #: [phone] Reason: see US Pelvic Non OB Complete EXAMS: CPT CODE: [id number] [place] [address] STUDY: - US PELVIS COMPLETE, - US TRANSVAGINAL NON OB, - DUP AB/PEL/SC/LTD 09/05/2019 1:38 AM Ordering Physician: Poornima Horowitz Patient Name: LIANA ASHBY MR: [id number] : 1975; Age: 44 years y/o Female Clinical Indication: Follow-up abnormal right ovary and recent CTA. Comparison: CT abdomen and pelvis 09/05/2019 TRANSABDOMINAL AND TRANSVAGINAL PELVIC ULTRASOUND: Technique: Grayscale, color, and Doppler transabdominal and transvaginal imaging of the pelvis was performed with standard technique. TRANSABDOMINAL PELVIC ULTRASOUND: UTERUS: Normal size uterus measuring 8.2 x 3.4 x 4.5 cm. No focal myometrial lesion. Normal thickness endometrial stripe measuring 4.5 mm. RIGHT OVARY AND ADNEXA: General: Normal size right ovary measuring 4.4 x 2.8 x 2.9 cm containing a 2.6 cm containing minimal low-level internal echoes versus artifact. Doppler: Not performed. LEFT OVARY AND ADNEXA: General: Never well visualized. Doppler: Not performed. URINARY BLADDER: Normal for degree of distention present containing anechoic urine. FLUID: None. OTHER FINDINGS: None. TRANSVAGINAL PELVIC ULTRASOUND: PAGE 1 Signed Report (CONTINUED) Name: LIANA ASHBY [facility] : 1975 Age/S: 44 / F [address] [place] [address] Unit #: [id number] Loc: [place] [address] Phys: Poornima HorowitzP Acct: [id number] Dis Date: Status:REG ER PHONE #: [phone] Exam Date: 09/05/2019238 FAX #: [phone] Reason: see US Pelvic Non OB Complete EXAMS: CPT CODE: [id number] [place] [address] (Continued) Endovaginal ultras ound was performed to better visualize the endometrial stripe and the adnexal regions. UTERUS: Normal size uterus measuring 7.6 x 3.6 x 4.5 cm. No focal myometrial lesion. Mildly limited visualization of the normal thickness endometrial stripe measuring 5.60 m. RIGHT OVARY AND ADNEXA: General: The right ovary is better visualized measuring 4.1 x 2.9 x 2.7 cm nearly completely replaced by a mildly complex cyst measuring 3.5 x 2.6 x 2.1 cm containing a thin septation and low-level internal echoes. Doppler: Normal low resistance arterial and venous blood flow is demonstrated. LEFT OVARY AND ADNEXA: General: Never well visualized. Doppler: Not performed. URINARY BLADDER: Decompressed. FLUID: None. OTHER FINDINGS: None. IMPRESSION: Mildly complex right ovarian cyst measuring 3.5 x 2.6 x 2.1 cm as above discussed. Normal right ovarian blood flow without torsion. Short interval follow-up pelvic ultrasound is recommended in 2-3 menstrual cycles. Nonvisualized left ovary. SL: TPAINTER-H PAGE 2 Signed Report (CONTINUED) Name: LIANA ASHBY [facility] : 1975 Age/S: 44 / F [address] [place] [address] Unit #: [id number] Loc: [place] [address] Phys: Poornima HorowitzP Acct: [id number] DisDate: Status: REG ER PHONE #: [phone] Exam Date: 09/05/2019238 FAX #: [phone] Reason: see US Pelvic Non OB Complete EXAMS: CPT CODE: [id number] [place] [address] (Continued) at 0250 Reported and signed by: Jono Caceres M.D. CC: Poornima Horowitz Technologist: Kristyn Wilson RDMS(BR)(AB) Trnscb Date/Time:09/05/2019 (249) [email or web address] Orig Print D/T: S: 09/05/2019 (252) Probe: [id number] PAGE 3 Signed Report- US PELVIS [id number] 02:50:00 Name: LIANA ASHBY [facility] : 1975 Age/S: 44 / F [address] [place] [address] Blvd Unit#: [id number] Loc: [place] [address] Phys: Poornima Horowitz Acct: [id number] Dis Date: Status: REG ER PHONE #: [phone] Exam Date: 09/05/2019238 FAX #: [phone] Reason: EVAL FOR R OVARIANLESION VS TORSION EXAMS: CPT CODE: [id number] US PELVIS COMPLETE 62843 STUDY: - US PELVIS COMPLETE, -US TRANSVAGINAL NON OB, - DUP AB/PEL/SC/LTD 09/05/2019 1:38 AM Ordering Physician: Poornima HorowitzPatient Name: LIANA ASHBY MR: [id number] : 1975; Age: 44 years y/o Female Clinical Indication: Follow-up abnormal right ovary and recent CTA. Comparison: CT abdomen and pelvis 09/05/2019 TRANSABDOMINAL AND TRANSVAGINAL PELVIC ULTRASOUND: Technique: Grayscale, color, and Doppler transabdominal and transvaginal imaging of the pelvis was performed with standard technique. TRANSABDOMINAL PELVIC ULTRASOUND: UTERUS: Normal size uterus measuring 8.2 x 3.4 x 4.5 cm. No focal myometrial lesion. Normal thickness endometrial stripe measuring 4.5 mm. RIGHT OVARY AND ADNEXA: General: Normal size right ovary measuring 4.4 x 2.8 x 2.9 cm containing a 2.6 cm containing minimal low-level internal echoes versus artifact. Doppler: Not performed. LEFT OVARY AND ADNEXA: General: Never well visualized. Doppler: Not performed. URINARY BLADDER: Normal for degree of distention present containing anechoic urine. FLUID: None. OTHER FINDINGS: None. TRANSVAGINAL PELVIC ULTRASOUND: PAGE 1 Signed Report (CONTINU ED) Name: LIANA ASHBY [facility] : 1975 Age/S: 44 / F [address] [place] [address] Blvd Unit #: [id number] Loc: [place]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 (test code = PROT) 6.2 gm/dL 6.4-8.2 L ALBUMIN (test code = ALB) 2.7 gm/dl 3.2-4.7 L CALCIUM (test code = CA) 8.4 mg/dl 8.0-10.5 N BILIRUBIN TOTAL (test code = 0.2 mg/dl 0.0-1.0 N BILT) SGOT/AST (test code = AST) 53 Units/L 15.0-37.0 H SGPT/ALT (test code = ALT) 145 Units/L 12.0-78.0 H ALKALINE PHOSPHATASE TOTAL (test 124 Units/L 50.0-136.0 N code = ALKP) DRUGS OF ABUSE SCREEN [id number] 22:54:00 Test Item Value Reference Interpretation Comments Range URN COCAINE (test NEGATIVE NEGATIVE Cocaine cu t-off code = COCAURN) concentratio n: 300 ng/mL URN CANNABINOIDS NEGATIVE NEGATIVE Cannabinoid s cut-off (test code = concentration: 50 ng/mL CANNABURN) URN AMPHETAMINE NEGATIVE NEGATIVE Amphetamine cut-off (test code = concentration: 1000 ng/mL AMPHETURN) URN BARBITURATE NEGATIVE NEGATIVE Barbiturate cut-off (test code = concentration: 200 ng/mL BARBITURN) URN BENZODIAZEPINE POSITIVE NEGATIVE A UNCONFIRM ED INITIAL (test code = SCREENING ONLY; SUGGEST BENZOURN) ADDITIONALCONFI RMATORY TESTING.Benzodi azepine cut-off concent ration: 200 ng/mL URN OPIATES (test POSITIVE NEGATIVE A UNCONFIRME D INITIAL code = OPIATURN) SCREENING O NLY; SUGGEST ADDITIONALCONFI RMATORY TESTING.Opiates cut-off concentration: 200 ng/mL URN PHENCYCLIDINE NEGATIVE NEGATIVE Phencyclid ine(PCP) cut-off (PCP) (test code = concentra tion: 25 ng/ml PHENCURN) URN METHADONE (test NEGATIVE NEGATIVE Methadon e cut-off code = METHAURN) concentrati on: 300 ng/mL Specimen comments: jess in lab from ER- US ABDOMEN [id number] 21:21:00 FAX: Crescencio Aly [phone] [place]: St: ADM Name: LIANA ASHBY [facility] : 1975 Age/S: 44/F [address] [facility] [employer] [facility] Unit #: [id number] Loc: [address] Phys: [place] [address] Acct: [id number] Dis Date: Status: ADM IN PHONE #: [phone] Exam Date: 05/13/20192028 FAX #: [phone] Reason: elevated LFTS EXAMS: CPT CODE: [id number] US ABDOMEN LTD [id number]: US ABDOMEN LIMITED DATE: 05/13/2019 6:10 PM INDICATION: Elevated liver function tests COMPARISON: Abdominal ultrasound dated 09/21/2018. TECHNIQUE: Multiplanar grayscale and color Doppler ultrasound of the right upper quadrant. FINDINGS: Liver: Craniocaudal length: 16.4 cm. Echogenicity: Increased. Surface: Normal. Mass (size and location): None. Main portal vein: Demonstrates normal hepatopetalflow. Bile ducts: Common bile duct diameter: 0.4 cm. Intrahepatic ducts: Normal. Gallbladder: Surgically absent Pancreas: Obscured by bowel gas and not well evaluated.. Right kidney: Size: 10.2 x 4.5 x5.7 cm. Hydronephrosis: None. Echogenicity: Normal. Calculi: None. Cysts/Masses: None. Aorta/inferior vena cava: The imaged portions are within normal limits. Free fluid: None. Other: None. IMPRESSION: Hepatic steatosis. PAGE 1 Signed Report (CONTINUED) FAX: Crescencio Aly [phone] [place]: St: ADM -- Name: LIANA ASHBY [facility] : 1975 Age/S: 44/F [address] [employer] Unit #: [id number] Loc: [address] Phys: [place] [address] Acct: [id number] Dis Date: Status: ADM IN PHONE #: [phone] Exam Date: 05/13/20192028 FAX #: [phone] Reason: elevated LFTS EXAMS: CPT CODE: [id number] ABDOMEN LTD 49577 <Continued> Otherwise, no abnormalities identified within the right upper quadrant. at 2121 Reported and signed by: ABDIAZIZ GREGORY M.D. CC: Neema Jimenez MD Tech nologist: DHAVAL WEBSTER Trnscrd Date/Time/By: 05/13/2019 (2120) : By: [email or web address] PAGE 2 Signed Report FAX: Crescencio Aly [phone] [place]: St: ADM Name: LIANA ASHBY [facility] : 1975 Age/S: 44/F[address] [employer] Unit #: [id number] Loc: [address] [place], [place]: [place] [address] Acct: [id number] Dis Date: Status: ADM IN PHONE #: [phone] Exam Date: 05/13/20192028 FAX #: [phone] Reason: elevated LFTS EXAMS: CPT CODE: [id number] US ABDOMEN LTD [address] <Continued> Orig Print D/T: S: 05/13/2019 (2845) PAGE 3 Signed ReportURINALYSIS [id number] 23:55:00 Test Item Value Reference Range Interpretation Comments UA COLOR (test code = YELLOW COLU) UA APPEARANCE (test code HAZY = APPU) UA GLUCOSE DIPSTICK (test NORMAL mg/dl NORMAL code = DGLUU) UA BILIRUBIN DIPSTICK NEGATIVE mg/dL NEGATIVE (test code = BILU) UA KETONE DIPSTICK (test 5 mg/dl mg/dl NEGATIVE A code = KETU) UA SPECIFIC GRAVITY (test 1.010 1.000-1.030 code = SGU) UA BLOOD DIPSTICK (test 25 Jorge Alberto/micL Jorge Alberto/micL NEGATIVE A code = WINSTON) UA PH DIPSTICK (test code 8.0 5.0-9.0 = FOSTER) UA PROTEIN DIPSTICK (test 30 mg/dl NEGATIVE A code = PROU) UA UROBILINIOGEN DIPSTICK 8.0 mg/dl mg/dl NORMAL A (test code = URO) UA NITRITE DIPSTICK (test NEGATIVE NEGATIVE code = SU) UA LEUKOCYTE ESTERASE 500 Debi/micL NEGATIVE A DIPSTICK (test code = Debi/micL LEUU) UA WBC (test code = WBCU) 4-9 WBC/HPF NONE A UA RBC (test code = RBCU) 0-2 RBC/HPF 0-3 UA EPITHELIAL CELLS (test 10-15 EPI/HPF 0-3 A code = EPIU) UA BACTERIA (test code = MANY NONE A BACU) URINALYSIS [id number] 23:34:00 Test Item Value Reference Range Interpretation Comments UA COLOR (test code = YELLOW COLU) UA APPEARANCE (test code HAZY = APPU) UA GLUCOSE DIPSTICK (test NORMAL mg/dl NORMAL code = DGLUU) UA BILIRUBIN DIPSTICK NEGATIVE mg/dL NEGATIVE (test code = BILU) UA KETONE DIPSTICK (test 5 mg/dl mg/dl NEGATIVE A code = KETU) UA SPECIFIC GRAVITY (test 1.010 1.000-1.030 code = SGU) UA BLOOD DIPSTICK (test 25 Jorge Alberto/micL Jorge Alberto/micL NEGATIVE A code = WINSTON) UA PH DIPSTICK (test code 8.0 5.0-9.0 = FOSTER) UA PROTEIN DIPSTICK (test 30 mg/dl NEGATIVE A code = PROU) UA UROBILINIOGEN DIPSTICK 8.0 mg/dl mg/dl NORMAL A (test code = URO) UA NITRITE DIPSTICK (test NEGATIVE NEGATIVE code = SU) UA LEUKOCYTE ESTERASE 500 Debi/micL NEGATIVE A DIPSTICK (test code = Debi/micL LEUU) UA WBC (test code = WBCU) WBC/HPF NONE UA RBC (test code = RBCU) RBC/HPF 0-3 UA EPITHELIAL CELLS (test EPI/HPF 0-3 code = EPIU) UA BACTERIA (test code = NONE BACU) COMPREHENSIVE METABOLIC [id number] 22:01:00 Test Item Value Reference Range Interpretation Comments SODIUM (test code = NA) 138 mmol/l 134.0-147.0 N POTASSIUM (test code = K) 4.1 mmol/L 3.6-5.2 N CHLORIDE (test code = CL) 102 mmol/l 98.0-107.0 N CARBON DIOXIDE (test code = CO2) 26.0 mmol/l 21.0-33.0 N ANION GAP (test code = GAP) 14.1 0-20 N GLUCOSE (test code = GLU) 87 mg/dl 70.0-110.0 N BLOOD UREA NITROGEN (test code = 18 mg/dl 7.0-18.0 N BUN) CREATININE (test code = CREAT) 0.93 mg/dL 0.60-1.30 N GFR NON BLACK (test code = 70 mL/min 95-105 L GFRNONBLACK) GFR BLACK (test code = GFRBLACK) 84 mL/min 115-127 L TOTAL PROTEIN (test code = PROT) 7.5 GM/DL 6.0-8.1 N ALBUMIN (test code = ALB) 3.1 gm/dL 3.2-4.7 L CALCIUM (test code = CA) 8.9 mg/dl 8.0-10.5 N BILIRUBIN TOTAL (test code = 0.6 mg/dl 0.0-1.0 N BILT) SGOT/AST (test code = AST) 191 Units/L 15.0-37.0 H SGPT/ALT (test code = ALT) 236 Units/L 12.0-78.0 H ALKALINE PHOSPHATASE TOTAL (test 163 Units/L 50.0-136.0 H code = ALKP) [id number] 22:01:00 Test Item Value Reference Range Interpretation Comments TROPONIN-I (test <0.02 NG/ML 0.00-0.06 N REFERENCE R BELINDA code = TROPI) TROPONIN I HEA LTHY INDIVIDUALS: <0 .06 ng/mL R/O ISCHE TUSHAR: 0.07 - 0.60 ng/ mL CUT-OFF RANGE F OR AMI: 0.60 - 1.5 ng/m L - CT HEAD/BRAIN W/O [id number] 21:58:00 FAX: Tha Mcginnis DO [phone] [place]: St: REG Name: LIANA ASHBY [facility] : 1975 Age/S: 44/F [address] [facility] Unit: [id number] Loc: [address] [place], [place]: [place] [address] Acct: [id number] Dis Date: Status: REG ER PHONE #: [phone] Exam Date: 05/12/20192136 FAX #: [phone] Reason: Syncope EXAMS: CPT CODE: [id number] CT HEAD/BRAIN W/O CONT 75984 EXAM: - CT HEAD/BRAIN W/O CONT HISTORY: Syncope. TECHNIQUE: Axial tomograms through the brain were obtained withoutintravenous contrast. This exam was performed according to our departmental dose-optimization program, which includes automated exposure control, adjustment of the mA and/or kV according to patient size and/or use of iterative reconstruction technique. COMPARISON: February 18, 2019. FINDINGS: There isno intracranial hemorrhage, mass, or mass effect. The ventricular system and sulci are age-appropriate. There is no evidence of acute infarction. The osseous structures and orbits, show no significant abnormalities. The visualized sinuses are relatively clear. The soft tissues are unremarkable. There is no significant change compared to previous exam. IMPRESSION: No acute intracranial abnormality with no evidence of intracranial hemorrhage. at 2158 Reported and signed by: Cheko Castellon M.D. CC: Tha Mcginnis DO Technologist: HIEN CONNOLLY Trnscrd Dt/Tm: 05/12/2019 (2157) [id number] Orig Print D/T: S: 05/12/2019 (1 PAGE 1 Signed ReportCOMPREHENSIVE METABOLIC [id number] 21:50:00 Test Item Value Reference Range Interpretation Comments SODIUM (test code = NA) 138 mmol/l 134.0-147.0 N POTASSIUM (test code = K) 4.1 mmol/L 3.6-5.2 N CHLORIDE (test code = CL) 102 mmol/l 98.0-107.0 N CARBON DIOXIDE (test code = CO2) 26.0 mmol/l 21.0-33.0 N ANION GAP (test code = GAP) 14.1 0-20 N GLUCOSE (test code = GLU) mg/dl 70.0-110.0 BLOOD UREA NITROGEN (test code = mg/dl 7.0-18.0 BUN) CREATININE (test code = CREAT) mg/dL 0.60-1.30 GFR NON BLACK (test code = mL/min 95-105 GFRNONBLACK) GFR BLACK (test code = GFRBLACK) mL/min 115-127 TOTAL PROTEIN (test code = PROT) gm/dL 6.4-8.2 ALBUMIN (test code = ALB) gm/dl 3.2-4.7 CALCIUM (test code = CA) mg/dl 8.0-10.5 BILIRUBIN TOTAL (test code = mg/dl 0.0-1.0 BILT) SGOT/AST (test code = AST) Units/L 15.0-37.0 SGPT/ALT (test code = ALT) Units/L 12.0-78.0 ALKALINE PHOSPHATASE TOTAL (test Units/L 50.0-136.0 code = ALKP) [id number] 21:50:00 Test Item Value Reference Range Interpretation Comments TROPONIN-I (test code = TROPI) NG/ML 0.00-0.06 CBC W/AUTO [id number] 21:49:00 Test Item Value Reference Range Interpretation Comments WHITE BLOOD CELL (test code = 13.7 K/mm3 4.5-11.0 H WBC) RED BLOOD CELL (test code = 4.27 M/mm3 3.80-5.20 N RBC) HEMOGLOBIN (test code = HGB) 11.7 gm/dL 12.0-16.0 L HEMATOCRIT (test code = HCT) 38.2 % 36.0-48.0 N MEAN CELL VOLUME (test code = 89.5 UM3 82.0-99.0 N MCV) MEAN CELL HGB (test code = MCH) 27.4 UUG 25.5-32.5 N MEAN CELL HGB CONCETRATION 30.6 gm/dL 29.0-35.5 N (test code = MCHC) RED CELL DISTRIBUTION WIDTH 15.6 % 11.5-15.0 H (test code = RDW) RED CELL DISTRIBUTION WIDTH SD 49.4 fL 34.8-50.2 N (test code = RDW-SD) PLATELET COUNT (test code = 358 K/mm3 150-400 N PLT) MEAN PLATELET VOLUME (test code 11.0 fl 7.4-10.4 H = MPV) NEUTROPHIL % (test code = NT%) 65.3 % 49.0-76.0 N IMMATURE GRANULOCYTE % (test 0.8 % 0.0-0.4 H code = IG%) LYMPHOCYTE % (test code = LY%) 21.8 % 23.0-38.0 L MONOCYTE % (test code = MO%) 9.7 % 1.0-10.0 N EOSINOPHIL % (test code = EO%) 2.0 % 1.0-5.0 N BASOPHIL % (test code = BA%) 0.4 % 0.0-1.0 N NEUTROPHIL # (test code = NT#) 8.9 K/mm3 2.4-6.3 H IMMATURE GRANULOCYTE # (test 0.11 x10 3/uL 0.00-0.07 H code = IG#) LYMPHOCYTE # (test code = LY#) 3.0 K/mm3 1.2-4.0 N MONOCYTE # (test code = MO#) 1.3 K/mm3 0.0-0.6 H EOSINOPHIL # (test code = EO#) 0.3 K/MM3 0.0-0.7 N BASOPHIL # (test code = BA#) 0.1 K/mm3 0.0-0.2 N - XR L-SPINE 2/3 [id number] 22:00:00 FAX: Keon Perez NP [phone] [place]: St: REG Name: LIANA ASHBY [facility] : 1975 Age/S: 44/[address] Unit #: [id number] Loc: [place] [address] Phys: Keon Perez NP Acct:[id number] Dis Date: Status: REG ER PHONE #: [phone] Exam Date: 02/18/2019 2148 FAX #: [phone] Reason: Fall, head inj, neck, lower back, bilat knee pa EXAMS: CPT CODE: [id number] XR L-SPINE2/3 VIEWS [id number] Three-view lumbar spine INDICATION: Acute lumbar back pain post fall. FINDINGS: No prior for comparison. Lumbar levoscoliosis versus positional change present on the frontal view. Lumbar vertebral bodies are normal in height and alignment on the lateral view. The disc spaces are preserv ed in height. Nonspecific bilateral calcifications in the upper abdomen present. IMPRESSION: No evidence for acute compression fracture or subluxation of the lumbar spine. SL: ARAVIND at 2200 Reported and signed by: Ernst Roque M.D. CC: Keon Perez NP Technologist: RT Petra(Rosaura) Trnscrd Date/Time/By: 02/18/2019 (2199) : By: [email or web address] Orig Print D/T: S: 02/18/2019 () PAGE 1 Signed Report- XR C- SPINE 2-3 [id number] 21:59:00 FAX: Keon Perez NP [phone] [place]: St: REG Name: LIANA ASHBY [facility] : 1975 Age/S: 44/[address] Unit #: [id number] Loc: [place] [address] Phys: Keon Perez NP Acct:[id number] Dis Date: Status: REG ER PHONE #: [phone] Exam Date: 02/18/20192147 FAX #: [phone] Reason: Fall, head inj, neck, lower back, bilat knee pa EXAMS: CPT CODE: [id number] XR C-SPINE 2-3 VIEWS 86405 4 view cervical spine INDICATION: Acute neck pain post fall FINDINGS: No prior for comparison. The prevertebral soft tissues are normal in thickness. Cervical vertebral bodies are normal in height and alignment on the lateral view. Mild anterior spurring in the lower levels seen. Discspace narrowing is present at C6-C7. Posterior elements are anatomically aligned. Odontoid process is intact. IMPRESSION: No evidence for acute fracture or subluxation of the cervical spine. SL: ARAVIND at 2159 Reported and signed by:Ernst Roque M.D. CC: Keon Perez NP Technologist: RT Petra(Rosaura) Trnscrd Date/Time/By: 02/18/2019 (2158) : By: [email or web address] Orig Print D/T: S: 02/18/2019 (2201) PAGE 1 Signed Report- XR KNEE 1 OR 2 V [id number] 21:58:00 FAX: Keon Perez NP [phone] [place]: St: REG Name: FABYLIANA MACEDO [facility] : 1975 Age/S: 44/F [address] [place] [address] Unit #: [id number] Loc: [place] [address] Phys: Keon Perez NP Acct: [id number] Dis Date: Status: REG ER PHONE #: [phone] Exam Date: 02/18/20192147 FAX #: [phone] Reason: Fall, head inj, neck, lower back, bilat knee pa EXAMS: CPT CODE: [id number] XR KNEE 1OR 2 [place] [address] Two-view bilateral knees. INDICATION: Acute bilateral knee pain post fall. COMPARISON: 02/14/2015 left knee radiographs FINDINGS: Right: No suprapatellar joint effusion. Minimal degenerative spurring in all 3 compartments. No acute fracture or dislocation. Left: No joint effusion is seen. Minimal spurring of the patella present. Small osteochondroma seen off the medial tibial metaphysis. No acute fracture or dislocation. IMPRESSION: 1. No acute bony finding bilaterally. 2. Minimal osteoarthritis, right greater than left. 3. Proximal left tibial osteochondroma. SL: SG-H at 2158 Reported and signed by: Ernst Roque M.D. CC: Keon Perez NP Technologist: RT Petra(R) Trnscrd Date/Time/By: 02/18/2019 (2157): By: [email or web address] Orig Print D/T: S: 02/18/2019 (6172) PAGE 1 Signed Report- CT HEAD/BRAIN W/O [id number] 21:15:00 Name: LIANA ASHBY [facility] : 1975 Age/S: 44 / F [address] [place] [address] Blvd Unit #: [id number] Loc: [place] [address] Phys: Keon Perez NP Acct: [id number] Dis Date: Status: PRE ER PHONE #: [phone] Exam Date: 02/18/20192058 FAX #: [phone] Reason: Fall, head inj, neck,lower back, bilat knee pa EXAMS: CPT CODE: [id number] CT HEAD/BRAIN W/O CONT 90127 STUDY: - CT HEAD/BRAIN W/O CONT 02/18/2019 8:41 PM Ordering Physician: Keon Perez NP Patient Name: LIANA ASHBY MR: [id number] : 1975; Age: 44 years y/o Female Clinical Indication: Fall, head inj, neck, lower back, bilat knee pain Comparison: October 24, 2018 CT TECHNIQUE: Multiple contiguous transaxial nonco ntrast CT images were obtained through the head. Coronal and sagittal reformatted images were prepared. DOSE: CT imaging performed at this location utilizes radiation dose optimization technique which includes one or more of the followin) Automated exposure control; 2) Adjustment of the mA and/or kV according to patient's size; 3) Use of iterative reconstruction techniques. DLP (mGy-cm): 419 FINDINGS: BRAIN PARENCHYMA: The brain volume is appropriate for age. No evidence of acute intracranial hemorrhage, mass lesion, mass effect, midline shift, or extra-axial fluid collection. Partially empty sella noted. VENTRICLES: The lateral ventricles, third ventricle, fourth ventricle, and basilar cisterns are appropriate for degree of atrophy present. PARANASAL SINUSES: Partial opacification of the right maxillary sinus MASTOIDS: Clear. ORBITS: The visualized portions of the orbits are normal. SOFT TISSUES: No significant abnormality. SKULL: No acute fracture or suspicious osseous lesion. IMPRESSION:PAGE 1 Signed Report (CONTINUED) Name: LIANA ASHBY [facility] : 1975 Age/S: 44 /F [address] [place] [address] Unit #: [id number] Loc: [place] [address] Phys: AnaKeonprecious AIKEN Acct: [id number] Dis Date: Status: PRE ER PHONE #: [phone] Exam Date: 02/18/20192058 FAX #: [phone] Reason: Fall, head inj, neck, lower back, bilat knee pa EXAMS: CPT CODE: [id number] CT HEAD/BRAIN W/O CONT 38603 (Continued) No acute intracranial abnormality. SL: AP-H at 2114 Reported and signed by: Bryan Gaffney M.D. CC: Keon Cook Technologist:RT Ana(R)(CT) CTDI: DLP: Trnscb Date/Time: 02/18/2019 (2114) [email or web address] Orig Print D/T: S: 02/18/2019 (2117) PAGE 2 Signed ReportUR HCG [id number] 21:10:00 Test Item Value Reference Range Interpretation Comments UR HCG QUAL (test code = HCGQLU) NEGATIVE NEGATIVE [id number] 00:48:00 Test Item Value Reference Range Interpretation Comments GLUBED (test code = 107 MG/DL 70-110 N Performe d by certified GLUBED) recovery unit operator at [facility] - CT HEAD/BRAIN W/O [id number] 21:55:00 Name: LIANA ASHBY [facility] : 1975 Age/S: 43 / F [address] [place] [address] Unit #: [id number] Loc: [place] [address] Phys: Evy Perdomo DO Acct: [id number] Dis Date: Status: REGER PHONE #: [phone] Exam Date: 10/24/20182120 FAX #: [phone] Reason: Syncope EXAMS: CPTCODE: [id number] CT HEAD/BRAIN W/O CONT [address] HEAD INDICATION: Syncope and headache. TECHNIQUE: Unenhanced CT was performed from the skull vertex to the foramen magnum with axial, coronal and sagittal reconstructions. Radiation dose length product 420 mGy-cm. COMPARISONS: CT brain 10/15/2018 FINDINGS: The paranasal sinuses are clear as visualized. The mastoid air cells and middle ears appear clear as visualized. There is no acute depressed skull fracture. There is no cerebral mass effect, midline shift, intracranial hemorrhage or acute large vessel territory cerebral cortical edema. Thecerebral ventricles are normal caliber. There is a prominent CSF space within the sella turcica and the pituitary gland is not well visualized. IMPRESSION: 1. There is a prominent CSF space in the sella turcica and the pituitary gland is not well visualized. This is nonspecific and may be idiopathic but could be due to an arachnoid cyst, intracranial hypertension or empty sella syndrome. This can be associated with hypopituitarism. Clinical correlation is recommended. 2. There is no intracranial hemorrhage or acute cerebral edema. at 2150 Reported and signed by: Carlos A Mccray D.O. CC: Evy Perdomo DO Technologist:Cheryl Camacho, RT(R)(CT) CTDI: DLP: Trnscb Date/Time: 10/24/2018 (6034) [email or web address] Orig Print D/T: S: 10/24/2018 (1413) PAGE 1 Signed Report- XR CHEST 1 [id number] 21:47:00 FAX: Evy Kaur DO [phone] [place]: [address]: REG Name: LIANA ASHBY [facility] : 1975 Age/S: 43/F [address] [place] [address] Blvd Unit #: [id number] Loc: [place] [address] Phys: Evy Perdomo DOAcct: [id number] Dis Date: Status: REG ER PHONE #: [phone] Exam Date: 10/24/20182144 FAX #:[phone] Reason: Syncope EXAMS: CPT CODE: [id number] XR CHEST 1 V 86416 CHEST, SINGLE VIEW HISTORY: Syncope Comparison made to 10/15/18 chest x-ray. FINDINGS: The lungs are clear. The heart size and pulmonary vascularity are within normal limits. IMPRESSION: No active process. SL:01 at 2146 Reported and signed by: Jeovanny Fontanez CC: Evy Perdomo DO Technologist: AMADOU Stanton RT(R); Marjorie Jaimes RT(R) Trnscrd Date/Time/By: 10/24/2018 (2146) : By: Isidra Orig Print D/T: S: 10/24/2018 (2149) PAGE 1 Signed ReportBASIC METABOLIC [id number] 21:30:00 Test Item Value Reference Range Interpretation Comments SODIUM (test code = NA) 138 mEq/L 134-147 N POTASSIUM (test code = 4.5 mEq/L 3.4-5.0 N K) CHLORIDE (test code = 107 mEq/L 100-108 N CL) CARBON DIOXIDE (test 23 mEq/L 21-33 N code = CO2) ANION GAP (test code = 13 0-20 N GAP) GLUCOSE (test code = 75 mg/dL 70-110 N GLU) BLOOD UREA NITROGEN 12 mg/dL 7-18 N (test code = BUN) GLOMERULAR FILTRATION 68.7 95-105 L Units of measure = RATE (test code = GFR) ml/mi n/1.73 m2 CREATININE (test code = 0.9 mg/dL 0.6-1.3 N CREAT) CALCIUM (test code = 8.8 mg/dL 8.0-10.5 N CA) HCG SERUM [id number] 21:30:00 Test Item Value Reference Range Interpretation Comments HCG SERUM QUAL (test code = SERUM NEGATIVE NEGATIVE HCGQL) THYROID STIMULATING [id number] 21:30:00 Test Item Value Reference Range Interpretation Comments THYROID STIMULATING 1.65 0.42-5.47 N Results in HORMONE (test code = TSH) mi lli-International Units/mL [id number] 21:30:00 Test Item Value Reference Range Interpretation Comments TROPONIN-I < 0.015 ng/mL 0.000-0.045 N Negative: <= 0 .045 Positive: (test code = >= 0.046 Correl ation with TROPI) serial results, other cardiac markers andclinical findings is nec essary to determine the clinicalsignifi cance of this result. Results using different metho dologies should not be c omparedto one another as mary jo titative results may linette y by method. [id number] 21:30:00 Test Item Value Reference Range Interpretation Comments ALCOHOL (test code < 0.003 G/dL <0.003 Ethyl Alc ohol = ALC) Interpretation: 0.100 gm/dL - Legally Intoxicated 0.3 00-0.400 gm/dL - Severel y Intoxicated >0. 400 gm/dL - Potenti ally LethalResults a re for Medical purpose s only, and not for Leg al orEmployment ev aluation purposes. BASIC METABOLIC [id number] 21:24:00 Test Item Value Reference Range Interpretation Comments SODIUM (test code = NA) 138 mEq/L 134-147 N POTASSIUM (test code = 4.5 mEq/L 3.4-5.0 N K) CHLORIDE (test code = 107 mEq/L 100-108 N CL) CARBON DIOXIDE (test 23 mEq/L 21-33 N code = CO2) ANION GAP (test code = 13 0-20 N GAP) GLUCOSE (test code = 75 mg/dL 70-110 N GLU) BLOOD UREA NITROGEN 12 mg/dL 7-18 N (test code = BUN) GLOMERULAR FILTRATION 68.7 95-105 L Units of measure = RATE (test code = GFR) ml/mi n/1.73 m2 CREATININE (test code = 0.9 mg/dL 0.6-1.3 N CREAT) CALCIUM (test code = 8.8 mg/dL 8.0-10.5 N CA) HCG SERUM [id number] 21:24:00 Test Item Value Reference Range Interpretation Comments HCG SERUM QUAL (test code = SERUM NEGATIVE NEGATIVE HCGQL) THYROID STIMULATING [id number] 21:24:00 Test Item Value Reference Range Interpretation Comments THYROID STIMULATING HORMONE (test code 0.42-5.47 = TSH) [id number] 21:24:00 Test Item Value Reference Range Interpretation Comments TROPONIN-I < 0.015 ng/mL 0.000-0.045 N Negative: <= 0 .045 Positive: (test code = >= 0.046 Corre lation with TROPI) serial results, other cardiac markers andclinical findings is nec essary to determine the clinicalsignifi cance of this result. Results using different metho dologies should not be c omparedto one another as mary jo titative results may linette y by method. [id number] 21:24:00 Test Item Value Reference Range Interpretation Comments ALCOHOL (test code < 0.003 G/dL <0.003 Ethyl Alc ohol = ALC) Interpretation: 0.100 gm/dL - Legally Intoxicated 0.3 00-0.400 gm/dL - Severel y Intoxicated >0. 400 gm/dL - Potenti ally LethalResults a re for Medical purpose s only, and not for Leg al orEmployment ev aluation purposes. BASIC METABOLIC [id number] 21:16:00 Test Item Value Reference Range Interpretation Comments SODIUM (test code = NA) mEq/L 134-147 POTASSIUM (test code = K) mEq/L 3.4-5.0 CHLORIDE (test code = CL) mEq/L 100-108 CARBON DIOXIDE (test code = CO2) mEq/L 21-33 ANION GAP (test code = GAP) 0-20 GLUCOSE (test code = GLU) mg/dL 70-110 BLOOD UREA NITROGEN (test code = BUN) mg/dL 7-18 GLOMERULAR FILTRATION RATE (test code 95-105 = GFR) CREATININE (test code = CREAT) mg/dL 0.6-1.3 CALCIUM (test code = CA) mg/dL 8.0-10.5 HCG SERUM [id number] 21:16:00 Test Item Value Reference Range Interpretation Comments HCG SERUM QUAL (test code = SERUM NEGATIVE NEGATIVE HCGQL) THYROID STIMULATING [id number] 21:16:00 Test Item Value Reference Range Interpretation Comments THYROID STIMULATING HORMONE (test code 0.42-5.47 = TSH) [id number] 21:16:00 Test Item Value Reference Range Interpretation Comments TROPONIN-I (test code = TROPI) ng/mL 0.000-0.045 [id number] 21:16:00 Test Item Value Reference Range Interpretation Comments ALCOHOL (test code = ALC) G/dL <0.003 CBC W/AUTO [id number] 21:09:00 Test Item Value Reference Range Interpretation Comments WHITE BLOOD CELL (test code = 11.37 x10 3/uL 4.5-11.0 H WBC) RED BLOOD CELL (test code = 4.57 x10 6/uL 3.54-5.02 N RBC) HEMOGLOBIN (test code = HGB) 12.7 g/dL 11.0-15.0 N HEMATOCRIT (test code = HCT) 39.5 % 33.0-45.0 N MEAN CELL VOLUME (test code = 86.4 fL 81.0-99.0 N MCV) MEAN CELL HGB (test code = 27.8 pg 27.0-33.0 N MCH) MEAN CELL HGB CONCETRATION 32.2 g/dL 33.0-37.0 L (test code = MCHC) RED CELL DISTRIBUTION WIDTH CV 14.6 % 11.5-14.5 H (test code = RDW) RED CELL DISTRIBUTION WIDTH SD 46.5 fL 37.0-54.0 N (test code = RDW-SD) PLATELET COUNT (test code = 335 x10 3/uL 150-400 N PLT) MEAN PLATELET VOLUME (test 11.3 fL 7.0-9.0 H code = MPV) NEUTROPHIL % (test code = NT%) 60.6 % 56.0-77.0 N IMMATURE GRANULOCYTE % (test 0.4 % 0.0-2.0 N code = IG%) LYMPHOCYTE % (test code = LY%) 25.6 % 14.0-32.0 N MONOCYTE % (test code = MO%) 8.4 % 4.8-9.0 N EOSINOPHIL % (test code = EO%) 4.6 % 0.3-3.7 H BASOPHIL % (test code = BA%) 0.4 % 0.0-2.0 N NUCLEATED RBC % (test code = 0.0 % 0-0 N NRBC%) NEUTROPHIL # (test code = NT#) 6.90 x10 3/uL 2.0-7.6 N IMMATURE GRANULOCYTE # (test 0.04 x10 3/uL 0.00-0.03 H code = IG#) LYMPHOCYTE # (test code = LY#) 2.91 x10 3/uL 1.0-3.8 N MONOCYTE # (test code = MO#) 0.95 x10 3/uL 0.1-0.8 H EOSINOPHIL # (test code = EO#) 0.52 x10 3/uL 0.0-0.2 H BASOPHIL # (test code = BA#) 0.05 x10 3/uL 0.0-0.2 N NUCLEATED RBC # (test code = 0.00 x10 3/uL 0.0-0.1 N NRBC#) MANUAL DIFF REQUIRED (test NO code = MDIFF) CBC W/AUTO [id number] 08:46:00 Test Item Value Reference Range Interpretation Comments WHITE BLOOD CELL (test code = 8.29 x10 3/uL 4.5-11.0 N WBC) RED BLOOD CELL (test code = 4.19 x10 6/uL 3.54-5.02 N RBC) HEMOGLOBIN (test code = HGB) 11.9 g/dL 11.0-15.0 N HEMATOCRIT (test code = HCT) 38.3 % 33.0-45.0 N MEAN CELL VOLUME (test code = 91.4 fL 81.0-99.0 MCV) MEAN CELL HGB (test code = MCH) 28.4 pg 27.0-33.0 N MEAN CELL HGB CONCETRATION 31.1 g/dL 33.0-37.0 L (test code = MCHC) RED CELL DISTRIBUTION WIDTH CV 15.0 % 11.5-14.5 H (test code = RDW) RED CELL DISTRIBUTION WIDTH SD 49.8 fL 37.0-54.0 N (test code = RDW-SD) PLATELET COUNT (test code = 282 x10 3/uL 150-400 N PLT) MEAN PLATELET VOLUME (test code 11.4 fL 7.0-9.0 H = MPV) NEUTROPHIL % (test code = NT%) 64.4 % 56.0-77.0 N IMMATURE GRANULOCYTE % (test 0.4 % 0.0-2.0 N code = IG%) LYMPHOCYTE % (test code = LY%) 23.0 % 14.0-32.0 N MONOCYTE % (test code = MO%) 8.9 % 4.8-9.0 N EOSINOPHIL % (test code = EO%) 3.1 % 0.3-3.7 N BASOPHIL % (test code = BA%) 0.2 % 0.0-2.0 N NUCLEATED RBC % (test code = 0.0 % 0-0 N NRBC%) NEUTROPHIL # (test code = NT#) 5.33 x10 3/uL 2.0-7.6 N IMMATURE GRANULOCYTE # (test 0.03 x10 3/uL 0.00-0.03 N code = IG#) LYMPHOCYTE # (test code = LY#) 1.91 x10 3/uL 1.0-3.8 N MONOCYTE # (test code = MO#) 0.74 x10 3/uL 0.1-0.8 N EOSINOPHIL # (test code = EO#) 0.26 x10 3/uL 0.0-0.2 H BASOPHIL # (test code = BA#) 0.02 x10 3/uL 0.0-0.2 N NUCLEATED RBC # (test code = 0.00 x10 3/uL 0.0-0.1 N NRBC#) MANUAL DIFF REQUIRED (test code NO = MDIFF) BASIC METABOLIC [id number] 07:27:00 Test Item Value Reference Range Interpretation Comments SODIUM (test code = NA) 136 mEq/L 134-147 N POTASSIUM (test code = 4.8 mEq/L 3.4-5.0 K) CHLORIDE (test code = 107 mEq/L 100-108 N CL) CARBON DIOXIDE (test 23 mEq/L 21-33 N code = CO2) ANION GAP (test code = 11 0-20 N GAP) GLUCOSE (test code = 89 mg/dL 70-110 N GLU) BLOOD UREA NITROGEN 8 mg/dL 7-18 N (test code = BUN) GLOMERULAR FILTRATION 91.8 95-105 L Units of measure = RATE (test code = GFR) ml/mi n/1.73 m2 CREATININE (test code = 0.7 mg/dL 0.6-1.3 CREAT) CALCIUM (test code = 8.4 mg/dL 8.0-10.5 N CA) - DUP EXTRACRANIAL [id number] 16:56:00 Name: LIANA ASHBY [facility] [place] : 1975 Age/S: 43 / F [address] [place], [place] [address]vd Unit #: [id number] Loc: [place] [address] Phys: Taya Duran MD Acct: [id number] Dis Date: Status: ADM IN PHONE #: [phone] Exam Date: 10/16/2018 1645 FAX #: [phone] Reason: DIZZINESS/SYNCOPE EXAMS: CPT CODE: [id number] DUP EXTRACRANIAL ANGELICA 95893 STUDY: - DUP EXTRACRANIAL ANGELICA 10/16/2018 11:25 AM Ordering Physician: Taya Duran MD Patient Name: LIANA ASHBY MR: [id number] :1975; Age: 43 years y/o Female Clinical Indication: DIZZINESS/SYNCOPE Comparison: None TECHNIQUE: Gaviria-scale, color Doppler and spectral Doppler of the carotid arteries was performed. Any reported ICA stenoses indirectly reference the distal internal carotid diameter as the denominator for the stenosis measurement, utilizing consensus panel criteria. FINDINGS: RIGHT CAROTID Grayscale images:No significant plaque ICA PSV: 160 cm/sec CCA PSV: 169.3 cm/sec ICA/CCA PSV RATIO:0.9 Vertebral flow: Antegrade. External carotid: Patent. LEFT CAROTID SYSTEM Grayscale images: No significant plaque ICA PSV:110.2 cm/sec CCA PSV: 104.3 cm/sec ICA/CCA PSV RATIO:1.1 Vertebral flow: Antegrade. External carotid: Patent. IMPRESSION: RIGHT: Mildly elevated peak systolic velocity of right internal carotid artery,with normal ICA/CCA ratio. This finding may be artifactual in nature or related to arch stenosis. A repeat examination or CTA neck can be performed for further evaluation if clinically indicated. LEFT:ICA stenosis <50% by velocity criteria. PAGE 1 Signed Report (CONTINUED) [facility] [place] : 1975 Age/S: 43 / F [address] [place], [place] [address]vd Unit #: [id number] Loc: [place] [address] Phys: Taya Duran MD Acct: [id number] Dis Date: Status: ADM IN PHONE #: [phone] Exam Date: 10/16/2018 1645 FAX #: [phone] Reason: DIZZINESS/SYNCOPE EXAMS: CPT CODE: [id number] DUP EXTRACRANIAL ANGELICA 85486 (Continued) Findings were communicated to DELFINO Liang for Taya Pratt MD on 10/16/2018 4:54 PM. Consensus panel Doppler US criteria for diagnosis of ICA stenosis: Stenosis (%) ICA PSV (cm/sec) ICA/CCA ratio ------ <50 <125 <2.0 50-69 125-230 2.0-4.0 >70 but less than >230 >4.0 near occlusion Near occlusion High, low, or Variable undetectable SL: [id number] at 1656 Reported and signed by: Caden Browning D.O. CC: Wang Whipple MD; Taya Duran MD Technologist: Yeni Matamoros RDMS(OB)(AB) Trnscb Date/Time: 10/16/2018 (165) [email or web address] Orig Print D/T: S: 10/16/2018 (1917) Probe: PAGE 2 Signed [id number] 07:34:00 Test Item Value Reference Range Interpretation Comments TROPONIN-I < 0.015 ng/mL 0.000-0.045 N Negative: <= 0.045 (test code = Positive: >= 0. 046 TROPI) Correlation wit h serial results, other cardiac markers andclin ical findings is necessary to determine the clinicalsig nificance of this result. Re sults using different metho dologies should not be c omparedto one another as mary jo titative results may linette y by method. COMMENTS: 3 troponins total (including troponin done in ED)[id number] 04:02:00 Test Item Value Reference Range Interpretation Comments TROPONIN-I < 0.015 ng/mL 0.000-0.045 N Negative: <= 0 .045 Positive: (test code = >= 0.046 Correl ation with TROPI) serial results, other cardiac markers andclinical findings is nec essary to determine the clinicalsignifi cance of this result. Results using different metho dologies should not be c omparedto one another as mary jo titative results may linette y by method. COMMENTS: 3 troponins total (including troponin done in ED)- CT HEAD/BRAIN W/O [id number] 23:25:00 Name: LIANA ASHBY [facility] : 1975 Age/S: 43 / F [address] [place] [address] Unit #: [id number] Loc: [place] [address] Phys: Robert Feng MD Acct: [id number] Dis Date: Status: REG ER PHONE #: [phone] Exam Date: 10/15/2018 2301 FAX #: [phone] Reason: Syncope EXAMS: CPT CODE: [id number] CT HEAD/BRAIN W/O CONT 12526 CT HEAD WITHOUT CONTRAST INDICATION: Syncope. Hemoptysis. COMPARISON: None. TECHNIQUE: Noncontrast CT head was performed from skull base to vertex at 3 mm slice collimation. Coronal and sagittal reconstructions performed. DOSE: CT imaging performed at this location utilizes radiation dose optimization technique which includes one or more of the followin) Automated exposure control; 2) Adjustment of the mA and/or kV according to patient's size; 3) Useof iterative reconstruction techniques. DLP: 419 mGy-cm FINDINGS: BRAIN PARENCHYMA AND VENTRICLES: Gaviria- white matter differentiation is preserved. Ventricles are normal in size. No mass effect or midline shift. No extra-axial fluid collections. No acute intraparenchymal hemorrhage. Empty sella noted. ORBITS, PARANASAL SINUSES, AND MASTOIDS: Minimal left maxillary sinus mucosal thickening present. Remaining visualized portions of the paranasal sinuses and mastoid air cells are clear. SKULL: Calvariumis intact. IMPRESSION: No acute intracranial findings. SL: SG-H at 2325 Reported and signed by: Ernst Roque M.D. PAGE 1 Signed Report (CONTINUED) Name: LIANA ASHBY [facility] : 1975 Age/S: 43 / F [address] [facility] Unit #: [id number] Loc: [place] [address] Phys: Robert Feng MD Acct: [id number] Date: Status: REG ER PHONE #: [phone] Exam Date: 10/15/2018 2301 FAX #: [phone] Reason: Syncope EXAMS: CPT CODE: [id number] CT HEAD/BRAIN W/O CONT 66138 (Continued) CC: Robert Perez Technologist:Cheryl Camacho RT(R)(CT) CTDI: DLP: Trnscb Date/Time: 10/15/2018 (232) [email or web address] Orig Print D/T: S: 10/15/2018 (5211) PAGE 2 Signed ReportURINALYSIS [id number] 23:13:00 Test Item Value Reference Range Interpretation Comments UA COLOR (test code = COLU) STRAW YEL/STRAW UA APPEARANCE (test code = APPU) CLEAR CLEAR UA GLUCOSE DIPSTICK (test code = NEGATIVE NEGATIVE DGLUU) UA BILIRUBIN DIPSTICK (test code NEGATIVE NEGATIVE = BILU) UA KETONE DIPSTICK (test code = NEGATIVE NEGATIVE KETU) UA SPECIFIC GRAVITY (test code = 1.001 1.005-1.030 L SGU) UA BLOOD DIPSTICK (test code = NEGATIVE NEGATIVE WINSTON) UA PH DIPSTICK (test code = FOSTER) 6.0 5.0-7.0 N UA PROTEIN DIPSTICK (test code = NEGATIVE NEGATIVE PROU) UA UROBILINIOGEN DIPSTICK (test 0.2 mg/dL 0.2-1.0 code = URO) UA NITRITE DIPSTICK (test code = NEGATIVE NEGATIVE SU) UA LEUKOCYTE ESTERASE DIPSTICK NEGATIVE NEGATIVE (test code = LEUU) UA WBC (test code = WBCU) 0-3 WBC/HPF 0-3 UA RBC (test code = RBCU) 4-10 RBC/HPF 0-3 UA BACTERIA (test code = BACU) 2+ /HPF NONE SEEN A UA SQUAMOUS CELLS (test code = 6-10 /HPF NONE SEEN A SQU) UA MUCUS (test code = MUCU) TRACE /LPF NONE SEEN COMMENTS: Clean CatchB-TYPE NATRIURETIC [id number] 23:07:00 Test Item Value Reference Range Interpretation Comments B-TYPE NATRIURETIC PEPTIDE (test < 5.0 PG/ML 0-100 N code = BNP) BASIC METABOLIC [id number] 22:49:00 Test Item Value Reference Range Interpretation Comments SODIUM (test code = NA) 136 mEq/L 134-147 N POTASSIUM (test code = 3.6 mEq/L 3.4-5.0 N K) CHLORIDE (test code = 107 mEq/L 100-108 N CL) CARBON DIOXIDE (test 21 mEq/L 21-33 N code = CO2) ANION GAP (test code = 12 0-20 N GAP) GLUCOSE (test code = 79 mg/dL 70-110 N GLU) BLOOD UREA NITROGEN 7 mg/dL 7-18 N (test code = BUN) GLOMERULAR FILTRATION 60.8 95-105 L Units of measure = RATE (test code = GFR) ml/mi n/1.73 m2 CREATININE (test code = 1.0 mg/dL 0.6-1.3 N CREAT) CALCIUM (test code = 9.0 mg/dL 8.0-10.5 N CA) HEPATIC FUNCTION [id number] 22:49:00 Test Item Value Reference Range Interpretation Comments TOTAL PROTEIN (test code = PROT) 8.3 g/dL 6.4-8.2 H ALBUMIN (test code = ALB) 3.80 g/dL 3.4-5.0 N BILIRUBIN TOTAL (test code = 0.50 mg/dL 0.0-1.0 N BILT) BILIRUBIN DIRECT (test code = 0.10 MG/DL 0.0-0.30 N BILD) BILIRUBIN INDIRECT (test code = 0.40 MG/DL BILIND) SGOT/AST (test code = AST) 16 IUnit/L 15-37 N SGPT/ALT (test code = ALT) 22 IUnit/L 15-65 N ALKALINE PHOSPHATASE TOTAL (test 132 IUnit/L 20-125 H code = ALKP) CREATINE KINASE (CK)2018-10-15 22:49:00 Test Item Value Reference Range Interpretation Comments CREATINE KINASE (CK) 79 35-232 N Result is in INTERNATIONAL (test code = CK) UNITS/LITER [id number] 22:49:00 Test Item Value Reference Range Interpretation Comments LIPASE (test code = LIP) 82 IUnit/L 73-393 N THYROID STIMULATING [id number] 22:49:00 Test Item Value Reference Range Interpretation Comments THYROID STIMULATING 2.84 0.42-5.47 N Results in HORMONE (test code = TSH) mi lli-International Units/mL [id number] 22:49:00 Test Item Value Reference Range Interpretation Comments TROPONIN-I < 0.015 ng/mL 0.000-0.045 N Negative: <= 0 .045 Positive: (test code = >= 0.046 Correl ation with TROPI) serial results, other cardiac markers andclinical findings is nec essary to determine the clinicalsignifi cance of this result. Results using different metho dologies should not be c omparedto one another as mary jo titative results may linette y by method. DRUGS OF ABUSE SCREEN [id number] 22:49:00 Test Item Value Reference Range Interpretation Comments URN COCAINE (test code NEGATIVE NEGATIVE = C[place]URN) URN CANNABINOIDS (test NEGATIVE NEGATIVE code = CANNABURN) URN AMPHETAMINE (test NEGATIVE NEGATIVE code = AMPHETURN) URN BARBITURATE (test NEGATIVE NEGATIVE code = BARBITURN) URN BENZODIAZEPINE NEGATIVE NEGATIVE Cut-off v alue:200 (test code = BENZOURN) ng/mL URN OPIATES (test code NEGATIVE NEGATIVE Cut-o ff value:2000 = OPIATURN) ng/mL URN PHENCYCLIDINE (PCP) NEGATIVE NEGATIVE Cuto ffs:Barbiturates (test code = PHENCURN) 200 ng/mLBenzodiaze pines 200 ng/mLTHC Cannabinoids 50 ng/mLOpiates(Mo rphine) 2000 ng/mLAmphe tamine 1000 ng/mLCocai ne 300 ng/mLPCP phency clidine 25 ng/mL Unconf irmed screening resul ts shouldnot be us ed for non-medical pur poses. CBC W/AUTO [id number] 22:47:00 Test Item Value Reference Range Interpretation Comments WHITE BLOOD CELL (test code 9.38 x10 3/uL 4.5-11.0 N = WBC) RED BLOOD CELL (test code = 5.22 x10 6/uL 3.54-5.02 H RBC) HEMOGLOBIN (test code = HGB) 14.5 g/dL 11.0-15.0 N HEMATOCRIT (test code = HCT) 45.0 % 33.0-45.0 N MEAN CELL VOLUME (test code 86.2 fL 81.0-99.0 N = MCV) MEAN CELL HGB (test code = 27.8 pg 27.0-33.0 N MCH) MEAN CELL HGB CONCETRATION 32.2 g/dL 33.0-37.0 L (test code = MCHC) RED CELL DISTRIBUTION WIDTH 14.6 % 11.5-14.5 H CV (test code = RDW) RED CELL DISTRIBUTION WIDTH 46.3 fL 37.0-54.0 N SD (test code = RDW-SD) PLATELET COUNT (test code = x10 3/uL 150-400 SEE PLT EST PLT) IMMATURE PLATELET FRACTION 13.0 % 0.9-11.2 H (test code = IPF) MEAN PLATELET VOLUME (test 11.8 fL 7.0-9.0 H code = MPV) NEUTROPHIL % (test code = 62.4 % 56.0-77.0 N NT%) IMMATURE GRANULOCYTE % (test 0.3 % 0.0-2.0 N code = IG%) LYMPHOCYTE % (test code = 25.8 % 14.0-32.0 N LY%) MONOCYTE % (test code = MO%) 7.4 % 4.8-9.0 N EOSINOPHIL % (test code = 3.7 % 0.3-3.7 N EO%) BASOPHIL % (test code = BA%) 0.4 % 0.0-2.0 N NUCLEATED RBC % (test code = 0.0 % 0-0 N NRBC%) NEUTROPHIL # (test code = 5.85 x10 3/uL 2.0-7.6 N NT#) IMMATURE GRANULOCYTE # (test 0.03 x10 3/uL 0.00-0.03 N code = IG#) LYMPHOCYTE # (test code = 2.42 x10 3/uL 1.0-3.8 N LY#) MONOCYTE # (test code = MO#) 0.69 x10 3/uL 0.1-0.8 N EOSINOPHIL # (test code = 0.35 x10 3/uL 0.0-0.2 H EO#) BASOPHIL # (test code = BA#) 0.04 x10 3/uL 0.0-0.2 N NUCLEATED RBC # (test code = 0.00 x10 3/uL 0.0-0.1 N NRBC#) MANUAL DIFF REQUIRED (test NO code = MDIFF) PLT [id number] 22:47:00 Test Item Value Reference Range Interpretation Comments PLATELET ESTIMATE (test code 132-165 THOUSAND ADEQUATE = PLTEST) PLATELET MORPHOLOGY (test GIANT PLATELETS code = PLTMORPH) HCG SERUM [id number] 22:38:00 Test Item Value Reference Range Interpretation Comments HCG SERUM QUAL (test code = SERUM NEGATIVE NEGATIVE HCGQL) CBC W/AUTO [id number] 22:27:00 Test Item Value Reference Range Interpretation Comments WHITE BLOOD CELL (test code 9.38 x10 3/uL 4.5-11.0 N = WBC) RED BLOOD CELL (test code = 5.22 x10 6/uL 3.54-5.02 H RBC) HEMOGLOBIN (test code = HGB) 14.5 g/dL 11.0-15.0 N HEMATOCRIT (test code = HCT) 45.0 % 33.0-45.0 N MEAN CELL VOLUME (test code 86.2 fL 81.0-99.0 N = MCV) MEAN CELL HGB (test code = 27.8 pg 27.0-33.0 N MCH) MEAN CELL HGB CONCETRATION 32.2 g/dL 33.0-37.0 L (test code = MCHC) RED CELL DISTRIBUTION WIDTH 14.6 % 11.5-14.5 H CV (test code = RDW) RED CELL DISTRIBUTION WIDTH 46.3 fL 37.0-54.0 N SD (test code = RDW-SD) PLATELET COUNT (test code = x10 3/uL 150-400 SEE PLT EST PLT) IMMATURE PLATELET FRACTION 13.0 % 0.9-11.2 H (test code = IPF) MEAN PLATELET VOLUME (test 11.8 fL 7.0-9.0 H code = MPV) NEUTROPHIL % (test code = 62.4 % 56.0-77.0 N NT%) IMMATURE GRANULOCYTE % (test 0.3 % 0.0-2.0 N code = IG%) LYMPHOCYTE % (test code = 25.8 % 14.0-32.0 N LY%) MONOCYTE % (test code = MO%) 7.4 % 4.8-9.0 N EOSINOPHIL % (test code = 3.7 % 0.3-3.7 N EO%) BASOPHIL % (test code = BA%) 0.4 % 0.0-2.0 N NUCLEATED RBC % (test code = 0.0 % 0-0 N NRBC%) NEUTROPHIL # (test code = 5.85 x10 3/uL 2.0-7.6 N NT#) IMMATURE GRANULOCYTE # (test 0.03 x10 3/uL 0.00-0.03 N code = IG#) LYMPHOCYTE # (test code = 2.42 x10 3/uL 1.0-3.8 N LY#) MONOCYTE # (test code = MO#) 0.69 x10 3/uL 0.1-0.8 N EOSINOPHIL # (test code = 0.35 x10 3/uL 0.0-0.2 H EO#) BASOPHIL # (test code = BA#) 0.04 x10 3/uL 0.0-0.2 N NUCLEATED RBC # (test code = 0.00 x10 3/uL 0.0-0.1 N NRBC#) MANUAL DIFF REQUIRED (test NO code = MDIFF) PLT [id number] 22:27:00 Test Item Value Reference Range Interpretation Comments PLATELET ESTIMATE (test code = THOUSAND ADEQUATE PLTEST) CBC W/AUTO [id number] 22:27:00 Test Item Value Reference Range Interpretation Comments WHITE BLOOD CELL (test code 9.38 x10 3/uL 4.5-11.0 N = WBC) RED BLOOD CELL (test code = 5.22 x10 6/uL 3.54-5.02 H RBC) HEMOGLOBIN (test code = HGB) 14.5 g/dL 11.0-15.0 N HEMATOCRIT (test code = HCT) 45.0 % 33.0-45.0 N MEAN CELL VOLUME (test code 86.2 fL 81.0-99.0 N = MCV) MEAN CELL HGB (test code = 27.8 pg 27.0-33.0 N MCH) MEAN CELL HGB CONCETRATION 32.2 g/dL 33.0-37.0 L (test code = MCHC) RED CELL DISTRIBUTION WIDTH 14.6 % 11.5-14.5 H CV (test code = RDW) RED CELL DISTRIBUTION WIDTH 46.3 fL 37.0-54.0 N SD (test code = RDW-SD) PLATELET COUNT (test code = x10 3/uL 150-400 SEE PLT EST PLT) IMMATURE PLATELET FRACTION 13.0 % 0.9-11.2 H (test code = IPF) MEAN PLATELET VOLUME (test 11.8 fL 7.0-9.0 H code = MPV) NEUTROPHIL % (test code = 62.4 % 56.0-77.0 N NT%) IMMATURE GRANULOCYTE % (test 0.3 % 0.0-2.0 N code = IG%) LYMPHOCYTE % (test code = 25.8 % 14.0-32.0 N LY%) MONOCYTE % (test code = MO%) 7.4 % 4.8-9.0 N EOSINOPHIL % (test code = 3.7 % 0.3-3.7 N EO%) BASOPHIL % (test code = BA%) 0.4 % 0.0-2.0 N NUCLEATED RBC % (test code = 0.0 % 0-0 N NRBC%) NEUTROPHIL # (test code = 5.85 x10 3/uL 2.0-7.6 N NT#) IMMATURE GRANULOCYTE # (test 0.03 x10 3/uL 0.00-0.03 N code = IG#) LYMPHOCYTE # (test code = 2.42 x10 3/uL 1.0-3.8 N LY#) MONOCYTE # (test code = MO#) 0.69 x10 3/uL 0.1-0.8 N EOSINOPHIL # (test code = 0.35 x10 3/uL 0.0-0.2 H EO#) BASOPHIL # (test code = BA#) 0.04 x10 3/uL 0.0-0.2 N NUCLEATED RBC # (test code = 0.00 x10 3/uL 0.0-0.1 N NRBC#) MANUAL DIFF REQUIRED (test NO code = MDIFF) PLT [id number] 22:27:00 Test Item Value Reference Range Interpretation Comments PLATELET ESTIMATE (test code = THOUSAND ADEQUATE PLTEST) - XR CHEST 1 [id number] 21:57:00 FAX: Robert Man MD [phone] [place]: St: REG Name: LIANA ASHBY [facility] : 1975 Age/S:43/F [address] [place] [address] Blvd Unit #: [id number] Loc: [place] [address] Phys: Robert Feng MD Acct: [id number] Dis Date: Status: REG ER PHONE #: [phone] Exam Date: 10/15/20182144 FAX #: [phone] Reason: Syncope EXAMS: CPT CODE: [id number] XR CHEST 1 V 59330 PROCEDURE: Chest Radiograph. Clinical Indication: Syncope, hemoptysis. Comparison: Chest radiograph 09/13/2018. FINDINGS: Thechest shows normal lung volumes without interstitial or airspace opacities, pleural effusions or pneumothorax. The heart size and pulmonary vasculature are normal. The trachea is midline. There are no clinically significant osseous abnormalities noted. IMPRESSION: 1. No chest radiographic evidence of acute cardiopulmonary disease. SL: [id number] at 2156 Reported and signed by: David Maxwell M.D. CC: Robert Feng MD Reji gist: Aime Fox RT(R) Trnscrd Date/Time/By: 10/15/2018 (2156) : By: MarisaTDO Orig Print D/T: S: 10/15/2018 (9) PAGE 1 Signed ReportANUSHA,[id number] 15:39:00 RUN DATE: 09/22/18 [facility] PAGE 1 RUN TIME: 1539 Specimen Inquiry RUN USER: INTERFACE YASMEEN ENT: LIANA ASHBY LOC: [place] U #: [id number] AGE/SX: 43/F ROOM: [facility] RE09/20/18SIMONE DR: Neema Jimenez : [birth year] BED: 1 DIS: STATUS: ADM Mina TLOC: SPEC #: [id number] RECD: 09/21/18-1409 STATUS: BRDA CARSON #: [id number] SANTHOSH: 09/21/18- SUBM DR: Lyndon Elizabeth MD ENTERED: 09/21/18 SP TYPE: GASTRIC BX OTHR DR: No Primary or Family Physician Self Referred Isabela Aranda MDORDERED: SPEC STAIN DAWSON, GM LEVEL 4/2, REQUEST COPIES TO: No Primary or Family Physician Self Referred Isabela Aranda MD [address] [place], [place] [address]vd [address] [place] [address] OTHER PHONE [phone] (CELL) Lyndon Elizabeth MD [address] [place], [place] [address]vd [address] [place] [address] ICD CODES: 530.1 - PROCEDURES: SPEC STAIN DAWSON (09/22/18) GM LEVEL 4 (09/22/18) REQUEST (09/21/18) TISSUES: A. GASTRIC MUCOUS MEMBRANE - GASTRIC BX B. ESOPHAGUS, NOS - MIDDLE THIRD ESOPHAGUS BX CLINICAL HISTORY Preop Diagnosis: Abdominal pain FINAL DIAGNOSIS A. STOMACH, ANTRAL BIOPSY: UNREMARKABLE ANTRAL TYPE MUCOSA. B. MIDDLE THIRD ESOPHAGUS BIOPSY: HUSSEIN ESOPHAGITIS. CPT CODE: [id number] X 2, 21944 CONTINUED ON NEXT PAGE RUN DATE: 09/22/18 [facility] - Lab PAGE 2 RUN TIME: 1539 Specimen Inquiry RUNUSER: INTERFACE SPEC #: [id number] PATIENT: LIANA ASHBY #[id number] (Continued) MACROSCOPIC 1. Specimen labeled as "antral biopsy" and consists of two portions of soft pride tissuefragments measuring 0.2 x 0.2 cm each. Entirely submitted in block A. 2. Specimen labeled as "middle third of esophagus" and consists of three portions of flakysoft pride tissue fragments measuring 0.2 x 0.2 cm in aggregate. Entirely submitted in blockB. MICROSCOPIC A. Sections of the antral biopsy demonstrates antral type mucosa with no significantlyincreased chronic inflammation in the lamina propria, acute inflammation involving theglands, granulomas, viral cytopathic changes, intestinal metaplasia, dysplasia ormalignancy identified. The Giemsa stain is negative for H. pylori organisms. B. Sections of the middle third esophagusbiopsy demonstrates squamous mucosa with basalhyperplasia, spongiosis, increased chronic and acute inflammation, extravasation of redblood cells, sloughing of the epithelium, and ulceration with fungalelementscharacteristic of Hussein. There is no dysplasia or malignancy identified. Signed SIGNATURE ON AlejaNicole garcia 09/22/18 1539 END OF REPORT - US ABDOMEN [id number] 00:38:00 FAX: Crescencio Aly [phone] [place]: St: ADM Name: LIANA ASHBY [facility] : 1975 Age/S: 43/F [address] [facility] [employer] [facility] Unit #: [id number] Loc: [address] [place], [place]: [place] [id number] Acct: [id number] Dis Date: Status: ADM IN PHONE #: [phone] Exam Date: 09/21/20182221 FAX #: [phone] Reason: abdominal pain, h/o cholecystectomy EXAMS: CPT CODE: [id number] US ABDOMEN LTD 17238 Location: U19. HISTORY: abdominal pain, h/o cholecystectomy FINDINGS: The proximal aorta is normal in caliber. The mid and distal aorta along with the pancreas and IVC are obscured by overlying bowel gas. The liver is enlarged measuring 19.4 cm and is partially obscured. Echote xture is increased suggestive of steatosis. No definite focal hepatic lesion. The portal vein is patent. The common bile duct is within normal limits measuring 3 mm. The gallbladder has been removed. The right kidney measures 10.4 x 4.4 x 5 cm and is normal in size, shape and echotexture. No evidence of hydronephrosis, nephrolithiasis or perirenal fluid collection. Small echogenic area along the periphery of the mid cortex may relate to scarring. IMPRESSION: Limited exam. Cholecystectomy. Hepatomegaly and steatosis. at 0038 Reported and signed by: Fani Galvez M.D. CC: Neema Jimenez MD Technologist: DHAVAL WEBSTER Trntnrd Date/Time/By: 09/22/2018 (0038) : By: [email or web address] PAGE 1 Signed Report FAX: Crescencio Aly [phone] [place]: St: ADM Name: LIANA ASHBY [facility] : 1975 Age/S: 43/F [address] [facility] Unit #: [id number] Loc: [address] [place], [place]: [place] [id number] Acct: [id number] Dis Date: Status: ADM IN PHONE #: [phone] Exam Date: 09/21/20182221 FAX #: [phone] Reason: abdominal pain, h/o cholecystectomy EXAMS: CPT CODE: [id number] US ABDOMEN LTD 62632<Continued> Orig Print D/T: S: 09/22/2018 (0041) PAGE 2 Signed ReportCOMPREHENSIVE METABOLIC [id number] 05:55:00 Test Item Value Reference Range Interpretation Comments SODIUM (test code = NA) 138 mmol/l 134.0-147.0 N POTASSIUM (test code = K) 4.0 mmol/L 3.6-5.2 N CHLORIDE (test code = CL) 102 mmol/l 98.0-107.0 N CARBON DIOXIDE (test code = CO2) 26.7 mmol/l 21.0-33.0 N ANION GAP (test code = GAP) 13.3 0-20 N GLUCOSE (test code = GLU) 97 mg/dl 70.0-110.0 N BLOOD UREA NITROGEN (test code = 11 mg/dl 7.0-18.0 N BUN) CREATININE (test code = CREAT) 0.93 mg/dL 0.60-1.30 N GFR NON BLACK (test code = 70 mL/min 95-105 L GFRNONBLACK) GFR BLACK (test code = GFRBLACK) 85 mL/min 115-127 L TOTAL PROTEIN (test code = PROT) 7.4 gm/dL 6.4-8.2 N ALBUMIN (test code = ALB) 3.0 gm/dl 3.2-4.7 L CALCIUM (test code = CA) 8.6 mg/dl 8.0-10.5 N BILIRUBIN TOTAL (test code = 0.2 mg/dl 0.0-1.0 N BILT) SGOT/AST (test code = AST) 13 Units/L 15.0-37.0 L SGPT/ALT (test code = ALT) 20 Units/L 12.0-78.0 N ALKALINE PHOSPHATASE TOTAL (test 118 Units/L 50.0-136.0 N code = ALKP) Comments to Naturopathic Doctor: Patient is currently in the ED waiting on a bedLIPID PROFILE (CORONARY RISK)2018-09-21 05:55:00 Test Item Value Reference Range Interpretation Comments TRIGLYCERIDES (test code = TRIG) 212 mg/dl 40.0-150.0 H CHOLESTEROL (test code = CHOL) 175 mg/dl 0.0-200.0 N CHOLESTEROL/HDL RATIO (test code = 5.3 RATIO CHOLHDL) HDL CHOLESTEROL (test code = HDL) 33 mg/dl 30.0-60.0 N LIPOPROTEIN LDL (test code = LDL) 128 mg/dl 70-130 N Comments to Naturopathic Doctor: Patient is currently in the ED waiting on a bed [id number] 05:55:00 Test Item Value Reference Range Interpretation Comments MAGNESIUM (test code = MAG) 1.9 mg/dl 1.8-2.4 N Comments to Naturopathic Doctor: Patient is currently in the ED waiting on a bedCBC W/AUTO [id number] 05:30:00 Test Item Value Reference Range Interpretation Comments WHITE BLOOD CELL (test code = 10.3 K/mm3 4.5-11.0 N WBC) RED BLOOD CELL (test code = 4.43 M/mm3 3.80-5.20 N RBC) HEMOGLOBIN (test code = HGB) 12.5 gm/dL 12.0-16.0 N HEMATOCRIT (test code = HCT) 39.9 % 36.0-48.0 N MEAN CELL VOLUME (test code = 90.1 UM3 82.0-99.0 N MCV) MEAN CELL HGB (test code = MCH) 28.2 UUG 25.5-32.5 N MEAN CELL HGB CONCETRATION 31.3 gm/dL 29.0-35.5 N (test code = MCHC) RED CELL DISTRIBUTION WIDTH 14.1 % 11.5-15.0 N (test code = RDW) RED CELL DISTRIBUTION WIDTH SD 46.7 fL 34.8-50.2 N (test code = RDW-SD) PLATELET COUNT (test code = 309 K/mm3 150-400 N PLT) MEAN PLATELET VOLUME (test code 10.8 fl 7.4-10.4 H = MPV) NEUTROPHIL % (test code = NT%) 65.6 % 49.0-76.0 N IMMATURE GRANULOCYTE % (test 0.3 % 0.0-0.4 N code = IG%) LYMPHOCYTE % (test code = LY%) 21.3 % 23.0-38.0 L MONOCYTE % (test code = MO%) 7.8 % 1.0-10.0 N EOSINOPHIL % (test code = EO%) 4.6 % 1.0-5.0 N BASOPHIL % (test code = BA%) 0.4 % 0.0-1.0 N NEUTROPHIL # (test code = NT#) 6.7 K/mm3 2.4-6.3 H IMMATURE GRANULOCYTE # (test 0.03 x10 3/uL 0.00-0.07 N code = IG#) LYMPHOCYTE # (test code = LY#) 2.2 K/mm3 1.2-4.0 N MONOCYTE # (test code = MO#) 0.8 K/mm3 0.0-0.6 H EOSINOPHIL # (test code = EO#) 0.5 K/MM3 0.0-0.7 N BASOPHIL # (test code = BA#) 0.0 K/mm3 0.0-0.2 N Comments to Naturopathic Doctor: Patient is currently in the ED waiting on a bed COMPREHENSIVE METABOLIC [id number] 22:22:00 Test Item Value Reference Range Interpretation Comments SODIUM (test code = NA) 137 mmol/l 134.0-147.0 N POTASSIUM (test code = K) 4.2 mmol/L 3.6-5.2 N CHLORIDE (test code = CL) 103 mmol/l 98.0-107.0 N CARBON DIOXIDE (test code = CO2) 22.5 mmol/l 21.0-33.0 N ANION GAP (test code = GAP) 15.7 0-20 N GLUCOSE (test code = GLU) 86 mg/dl 70.0-110.0 N BLOOD UREA NITROGEN (test code = 10 mg/dl 7.0-18.0 N BUN) CREATININE (test code = CREAT) 1.05 mg/dL 0.60-1.30 N GFR NON BLACK (test code = 61 mL/min 95-105 L GFRNONBLACK) GFR BLACK (test code = GFRBLACK) 74 mL/min 115-127 L TOTAL PROTEIN (test code = PROT) 8.1 GM/DL 6.0-8.1 N ALBUMIN (test code = ALB) 3.3 gm/dL 3.2-4.7 N CALCIUM (test code = CA) 9.0 mg/dl 8.0-10.5 N BILIRUBIN TOTAL (test code = 0.2 mg/dl 0.0-1.0 N BILT) SGOT/AST (test code = AST) 21 Units/L 15.0-37.0 N SGPT/ALT (test code = ALT) 19 Units/L 12.0-78.0 N ALKALINE PHOSPHATASE TOTAL (test 143 Units/L 50.0-136.0 H code = ALKP) Specimen comments: Clean CatchHCG SERUM [id number] 22:22:00 Test Item Value Reference Range Interpretation Comments HCG SERUM QUAL (test code = HCGQL) NEGATIVE NEGATIVE Specimen comments: Clean CatchURINALYSIS [id number] 22:00:00 Test Item Value Reference Range Interpretation Comments UA COLOR (test code = COLU) STRAW UA APPEARANCE (test code = CLEAR APPU) UA GLUCOSE DIPSTICK (test NORMAL mg/dl NORMAL code = DGLUU) UA BILIRUBIN DIPSTICK (test NEGATIVE mg/dL NEGATIVE code = BILU) UA KETONE DIPSTICK (test NEGATIVE mg/dl NEGATIVE code = KETU) UA SPECIFIC GRAVITY (test 1.010 1.000-1.030 code = SGU) UA BLOOD DIPSTICK (test NEGATIVE Jorge Alberto/micL NEGATIVE code = WINSTON) UA PH DIPSTICK (test code = 7.0 5.0-9.0 FOSTER) UA PROTEIN DIPSTICK (test NEGATIVE mg/dl NEGATIVE code = PROU) UA UROBILINIOGEN DIPSTICK NORMAL mg/dl NORMAL (test code = URO) UA NITRITE DIPSTICK (test NEGATIVE NEGATIVE code = SU) UA LEUKOCYTE ESTERASE NEGATIVE Debi/micL NEGATIVE DIPSTICK (test code = LEUU) UA WBC (test code = WBCU) 0-2 WBC/HPF NONE UA RBC (test code = RBCU) 0-2 RBC/HPF 0-3 UA EPITHELIAL CELLS (test 1-3 EPI/HPF 0-3 code = EPIU) UA BACTERIA (test code = FEW NONE BACU) Specimen comments: Clean CatchCOMPREHENSIVE METABOLIC [id number] 21:59:00 Test Item Value Reference Range Interpretation Comments SODIUM (test code = NA) 137 mmol/l 134.0-147.0 N POTASSIUM (test code = K) 4.2 mmol/L 3.6-5.2 N CHLORIDE (test code = CL) 103 mmol/l 98.0-107.0 N CARBON DIOXIDE (test code = CO2) 22.5 mmol/l 21.0-33.0 N ANION GAP (test code = GAP) 15.7 0-20 N GLUCOSE (test code = GLU) 86 mg/dl 70.0-110.0 N BLOOD UREA NITROGEN (test code = 10 mg/dl 7.0-18.0 N BUN) CREATININE (test code = CREAT) 1.05 mg/dL 0.60-1.30 N GFR NON BLACK (test code = 61 mL/min 95-105 L GFRNONBLACK) GFR BLACK (test code = GFRBLACK) 74 mL/min 115-127 L TOTAL PROTEIN (test code = PROT) 8.1 GM/DL 6.0-8.1 N ALBUMIN (test code = ALB) 3.3 gm/dL 3.2-4.7 N CALCIUM (test code = CA) 9.0 mg/dl 8.0-10.5 N BILIRUBIN TOTAL (test code = 0.2 mg/dl 0.0-1.0 N BILT) SGOT/AST (test code = AST) 21 Units/L 15.0-37.0 N SGPT/ALT (test code = ALT) 19 Units/L 12.0-78.0 N ALKALINE PHOSPHATASE TOTAL (test 143 Units/L 50.0-136.0 H code = ALKP) Specimen comments: Clean CatchHCG SERUM [id number] 21:59:00 Test Item Value Reference Range Interpretation Comments HCG SERUM QUAL (test code = HCGQL) NEGATIVE Specimen comments: Clean CatchCOMPREHENSIVE METABOLIC [id number] 21:52:00 Test Item Value Reference Range Interpretation Comments SODIUM (test code = NA) 137 mmol/l 134.0-147.0 N POTASSIUM (test code = K) 4.2 mmol/L 3.6-5.2 N CHLORIDE (test code = CL) 103 mmol/l 98.0-107.0 N CARBON DIOXIDE (test code = CO2) 22.5 mmol/l 21.0-33.0 N ANION GAP (test code = GAP) 15.7 0-20 N GLUCOSE (test code = GLU) mg/dl 70.0-110.0 BLOOD UREA NITROGEN (test code = mg/dl 7.0-18.0 BUN) CREATININE (test code = CREAT) mg/dL 0.60-1.30 GFR NON BLACK (test code = mL/min 95-105 GFRNONBLACK) GFR BLACK (test code = GFRBLACK) mL/min 115-127 TOTAL PROTEIN (test code = PROT) gm/dL 6.4-8.2 ALBUMIN (test code = ALB) gm/dl 3.2-4.7 CALCIUM (test code = CA) mg/dl 8.0-10.5 BILIRUBIN TOTAL (test code = mg/dl 0.0-1.0 BILT) SGOT/AST (test code = AST) Units/L 15.0-37.0 SGPT/ALT (test code = ALT) Units/L 12.0-78.0 ALKALINE PHOSPHATASE TOTAL (test Units/L 50.0-136.0 code = ALKP) Specimen comments: Clean CatchHCG SERUM [id number] 21:52:00 Test Item Value Reference Range Interpretation Comments HCG SERUM QUAL (test code = HCGQL) NEGATIVE Specimen comments: Clean CatchURINALYSIS [id number] 21:47:00 Test Item Value Reference Range Interpretation Comments UA COLOR (test code = COLU) UA APPEARANCE (test code = APPU) UA GLUCOSE DIPSTICK (test NORMAL mg/dl NORMAL code = DGLUU) UA BILIRUBIN DIPSTICK (test NEGATIVE mg/dL NEGATIVE code = BILU) UA KETONE DIPSTICK (test NEGATIVE mg/dl NEGATIVE code = KETU) UA SPECIFIC GRAVITY (test 1.010 1.000-1.030 code = SGU) UA BLOOD DIPSTICK (test NEGATIVE Jorge Alberto/micL NEGATIVE code = WINSTON) UA PH DIPSTICK (test code = 7.0 5.0-9.0 FOSTER) UA PROTEIN DIPSTICK (test NEGATIVE mg/dl NEGATIVE code = PROU) UA UROBILINIOGEN DIPSTICK NORMAL mg/dl NORMAL (test code = URO) UA NITRITE DIPSTICK (test NEGATIVE NEGATIVE code = SU) UA LEUKOCYTE ESTERASE NEGATIVE Debi/micL NEGATIVE DIPSTICK (test code = LEUU) UA WBC (test code = WBCU) WBC/HPF NONE UA RBC (test code = RBCU) RBC/HPF 0-3 UA EPITHELIAL CELLS (test EPI/HPF 0-3 code = EPIU) UA BACTERIA (test code = NONE BACU) Specimen comments: Clean CatchCBC W/AUTO [id number] 21:46:00 Test Item Value Reference Range Interpretation Comments WHITE BLOOD CELL (test code = 9.9 K/mm3 4.5-11.0 N WBC) RED BLOOD CELL (test code = 4.73 M/mm3 3.80-5.20 N RBC) HEMOGLOBIN (test code = HGB) 13.3 gm/dL 12.0-16.0 N HEMATOCRIT (test code = HCT) 42.6 % 36.0-48.0 N MEAN CELL VOLUME (test code = 90.1 UM3 82.0-99.0 N MCV) MEAN CELL HGB (test code = MCH) 28.1 UUG 25.5-32.5 N MEAN CELL HGB CONCETRATION 31.2 gm/dL 29.0-35.5 N (test code = MCHC) RED CELL DISTRIBUTION WIDTH 14.1 % 11.5-15.0 N (test code = RDW) RED CELL DISTRIBUTION WIDTH SD 46.3 fL 34.8-50.2 N (test code = RDW-SD) PLATELET COUNT (test code = 326 K/mm3 150-400 N PLT) MEAN PLATELET VOLUME (test code 10.8 fl 7.4-10.4 H = MPV) NEUTROPHIL % (test code = NT%) 61.6 % 49.0-76.0 N IMMATURE GRANULOCYTE % (test 0.3 % 0.0-0.4 N code = IG%) LYMPHOCYTE % (test code = LY%) 25.2 % 23.0-38.0 N MONOCYTE % (test code = MO%) 8.1 % 1.0-10.0 N EOSINOPHIL % (test code = EO%) 4.3 % 1.0-5.0 N BASOPHIL % (test code = BA%) 0.5 % 0.0-1.0 N NEUTROPHIL # (test code = NT#) 6.1 K/mm3 2.4-6.3 N IMMATURE GRANULOCYTE # (test 0.03 x10 3/uL 0.00-0.07 N code = IG#) LYMPHOCYTE # (test code = LY#) 2.5 K/mm3 1.2-4.0 N MONOCYTE # (test code = MO#) 0.8 K/mm3 0.0-0.6 H EOSINOPHIL # (test code = EO#) 0.4 K/MM3 0.0-0.7 N BASOPHIL # (test code = BA#) 0.1 K/mm3 0.0-0.2 N COMPREHENSIVE METABOLIC [id number] 21:43:00 Test Item Value Reference Range Interpretation Comments SODIUM (test code = NA) 136 mmol/l 134.0-147.0 N POTASSIUM (test code = K) 3.6 mmol/L 3.6-5.2 N CHLORIDE (test code = CL) 102 mmol/l 98.0-107.0 N CARBON DIOXIDE (test code = CO2) 22.3 mmol/l 21.0-33.0 N ANION GAP (test code = GAP) 15.3 0-20 N GLUCOSE (test code = GLU) 84 mg/dl 70.0-110.0 N BLOOD UREA NITROGEN (test code = 10 mg/dl 7.0-18.0 N BUN) CREATININE (test code = CREAT) 1.12 mg/dL 0.60-1.30 N GFR NON BLACK (test code = 56 mL/min 95-105 L GFRNONBLACK) GFR BLACK (test code = GFRBLACK) 68 mL/min 115-127 L TOTAL PROTEIN (test code = PROT) 7.4 gm/dL 6.4-8.2 N ALBUMIN (test code = ALB) 3.2 gm/dl 3.2-4.7 N CALCIUM (test code = CA) 8.7 mg/dl 8.0-10.5 N BILIRUBIN TOTAL (test code = 0.1 mg/dl 0.0-1.0 N BILT) SGOT/AST (test code = AST) 16 Units/L 15.0-37.0 N SGPT/ALT (test code = ALT) 20 Units/L 12.0-78.0 N ALKALINE PHOSPHATASE TOTAL (test 140 Units/L 50.0-136.0 H code = ALKP) [id number] 21:43:00 Test Item Value Reference Range Interpretation Comments LIPASE (test code = LIP) 64 Units/L 65.0-230.0 L HCG SERUM [id number] 21:43:00 Test Item Value Reference Range Interpretation Comments HCG SERUM QUAL (test code = HCGQL) NEGATIVE NEGATIVE COMPREHENSIVE METABOLIC [id number] 21:39:00 Test Item Value Reference Range Interpretation Comments SODIUM (test code = NA) mmol/l 134.0-147.0 POTASSIUM (test code = K) mmol/L 3.6-5.2 CHLORIDE (test code = CL) mmol/l 98.0-107.0 CARBON DIOXIDE (test code = CO2) mmol/l 21.0-33.0 ANION GAP (test code = GAP) 0-20 GLUCOSE (test code = GLU) mg/dl 70.0-110.0 BLOOD UREA NITROGEN (test code = mg/dl 7.0-18.0 BUN) CREATININE (test code = CREAT) mg/dL 0.60-1.30 GFR NON BLACK (test code = mL/min 95-105 GFRNONBLACK) GFR BLACK (test code = GFRBLACK) mL/min 115-127 TOTAL PROTEIN (test code = PROT) gm/dL 6.4-8.2 ALBUMIN (test code = ALB) gm/dl 3.2-4.7 CALCIUM (test code = CA) mg/dl 8.0-10.5 BILIRUBIN TOTAL (test code = BILT) mg/dl 0.0-1.0 SGOT/AST (test code = AST) Units/L 15.0-37.0 SGPT/ALT (test code = ALT) Units/L 12.0-78.0 ALKALINE PHOSPHATASE TOTAL (test Units/L 50.0-136.0 code = ALKP) [id number] 21:39:00 Test Item Value Reference Range Interpretation Comments LIPASE (test code = LIP) Units/L 65.0-230.0 HCG SERUM [id number] 21:39:00 Test Item Value Reference Range Interpretation Comments HCG SERUM QUAL (test code = HCGQL) NEGATIVE NEGATIVE COMPREHENSIVE METABOLIC [id number] 21:39:00 Test Item Value Reference Range Interpretation Comments SODIUM (test code = NA) 136 mmol/l 134.0-147.0 N POTASSIUM (test code = K) 3.6 mmol/L 3.6-5.2 N CHLORIDE (test code = CL) 102 mmol/l 98.0-107.0 N CARBON DIOXIDE (test code = CO2) 22.3 mmol/l 21.0-33.0 N ANION GAP (test code = GAP) 15.3 0-20 N GLUCOSE (test code = GLU) mg/dl 70.0-110.0 BLOOD UREA NITROGEN (test code = mg/dl 7.0-18.0 BUN) CREATININE (test code = CREAT) mg/dL 0.60-1.30 GFR NON BLACK (test code = mL/min 95-105 GFRNONBLACK) GFR BLACK (test code = GFRBLACK) mL/min 115-127 TOTAL PROTEIN (test code = PROT) gm/dL 6.4-8.2 ALBUMIN (test code = ALB) gm/dl 3.2-4.7 CALCIUM (test code = CA) mg/dl 8.0-10.5 BILIRUBIN TOTAL (test code = mg/dl 0.0-1.0 BILT) SGOT/AST (test code = AST) Units/L 15.0-37.0 SGPT/ALT (test code = ALT) Units/L 12.0-78.0 ALKALINE PHOSPHATASE TOTAL (test Units/L 50.0-136.0 code = ALKP) [id number] 21:39:00 Test Item Value Reference Range Interpretation Comments LIPASE (test code = LIP) Units/L 65.0-230.0 HCG SERUM [id number] 21:39:00 Test Item Value Reference Range Interpretation Comments HCG SERUM QUAL (test code = HCGQL) NEGATIVE NEGATIVE - XR ABD ACUTE [id number] 21:35:00 FAX: Shoaib Hernandez MD [phone] [place]: St: REG Name: LIANA ASHBY [facility] : 1975 Age/S: 43/F [address] [facility] Unit #: [id number] Loc: [address] Phys: Shoaib Hernandez [place] [id number]: [id number] Dis Date: Status: REG ER PHONE #: [phone] Exam Date: 09/13/20182131 FAX #: Reason: Abdominal pain EXAMS: CPT CODE: [id number] XR ABD ACUTE W/CHEST 89663 LOCATION: Q15 HISTORY: 43-year-old female who presents with chronic abdominal pain. COMMENT: Supine and uprightradiographs of the abdomen were obtained along with a frontal chest radiograph. A radiographic studyof the abdomen obtained August 16, 2018 is available for comparison. The intestinal gas pattern is unremarkable. There are scattered collections of feces seen throughout the colon suggestive of constipation. No free air or free fluid is seen in organomegaly or masses present. Cholecystectomy clips are seen. The chest examination demonstrates clear lungs. The cardiac silhouette, beena, and mediastinum are unremarkable. IMPRESSION: Colonic constipation is seen in this otherwise unremarkable acute abdomen series. at 2135 Reported and signed by: Mac Duarte M.D. CC: Shoaib Hernandez MD Technologist: OH BOWEN Trnscrd Date/Altagracia e/By: 09/13/2018 (2134) : By: [email or web address] PAGE 1 Signed Report FAX: Shoaib Hernandez MD [phone] [place]: St: REG -- Name: LIANA ASHBY [facility] : 1975 Age/S: 43/F [address] [employer] [facility] Unit #: [id number] Loc: [facility] [place], [place]: [place] [id number] Acct: [id number] Dis Date: Status: REG ER PHONE #: [phone] Exam Date: 09/13/20182131 FAX #: [phone] Reason: Abdominal pain EXAMS: CPT CODE: [id number] XR ABD ACUTE W/CHEST 07122 <Continued> Orig Print D/T: S: 09/13/2018 (2137) PAGE 2 Signed ReportCBC W/AUTO DIFF 2018-09-13 21:30:00 Test Item Value Reference Range Interpretation Comments WHITE BLOOD CELL (test code = 9.8 K/mm3 4.5-11.0 N WBC) RED BLOOD CELL (test code = 4.37 M/mm3 3.80-5.20 N RBC) HEMOGLOBIN (test code = HGB) 12.3 gm/dL 12.0-16.0 N HEMATOCRIT (test code = HCT) 39.8 % 36.0-48.0 N MEAN CELL VOLUME (test code = 91.1 UM3 82.0-99.0 N MCV) MEAN CELL HGB (test code = MCH) 28.1 UUG 25.5-32.5 N MEAN CELL HGB CONCETRATION 30.9 gm/dL 29.0-35.5 N (test code = MCHC) RED CELL DISTRIBUTION WIDTH 14.1 % 11.5-15.0 N (test code = RDW) RED CELL DISTRIBUTION WIDTH SD 46.9 fL 34.8-50.2 N (test code = RDW-SD) PLATELET COUNT (test code = 247 K/mm3 150-400 N PLT) MEAN PLATELET VOLUME (test code 11.7 fl 7.4-10.4 H = MPV) NEUTROPHIL % (test code = NT%) 62.6 % 49.0-76.0 N IMMATURE GRANULOCYTE % (test 0.3 % 0.0-0.4 N code = IG%) LYMPHOCYTE % (test code = LY%) 23.5 % 23.0-38.0 N MONOCYTE % (test code = MO%) 8.3 % 1.0-10.0 N EOSINOPHIL % (test code = EO%) 4.9 % 1.0-5.0 N BASOPHIL % (test code = BA%) 0.4 % 0.0-1.0 N NEUTROPHIL # (test code = NT#) 6.2 K/mm3 2.4-6.3 N IMMATURE GRANULOCYTE # (test 0.03 x10 3/uL 0.00-0.07 N code = IG#) LYMPHOCYTE # (test code = LY#) 2.3 K/mm3 1.2-4.0 N MONOCYTE # (test code = MO#) 0.8 K/mm3 0.0-0.6 H EOSINOPHIL # (test code = EO#) 0.5 K/MM3 0.0-0.7 N BASOPHIL # (test code = BA#) 0.0 K/mm3 0.0-0.2 N - XR ABDOMEN [id number] 21:49:00 FAX: Maco Mittal MD [phone] [place]: St: REG Name: LIANA ASHBY [facility] : 1975 Age/S:43/F [address] [place] [address] Unit #: [id number] Loc: [place] [address] Phys: Maco Castro MD Acct: [id number] Dis Date: Status: REG ER PHONE #: [phone] Exam Date: 08/16/20182137 FAX #: [phone] Reason: abdominal pain EXAMS: CPT CODE: [id number] XR ABDOMEN 2V 47728 Patient: LIANA ASHBY. : 1975; Age: 43 years; Gender: Female. MR: [id number]. Ordering physician: MD Rakesh. Abdomen 2 views. HISTORY: Abdominal pain. COMPARISON: CT abdomen and pelvis 08/07/2018. FINDINGS: Frontal supine and upright views of abdomen were obtained. Splenic and hepatic calcifiedgranulomas again noted. Postcholecystectomy surgical clips noted. No bowel dilatation or air-fluid levels to bowel obstruction. No free air. IMPRESSION: No bowel obstruction or free air. SL: MILLIE at 2148 Reported and signed by: Rupert Mahomod M.D. CC: Maco Castro MD Technologist: RT Nelson(Rosaura) Trnscrd Date/Time/By: 08/16/2018 (2148) : By: [email or web address] Orig Print D/T: S: 08/16/2018 (301) PAGE 1 Signed Report- CT ABD PELVIS W/[id number] 01:09:00 Name: LIANA ASHBY [facility] : 1975 Age/S: 43 / F [address] [place] [address] Unit #: [id number] Loc: [place] [address] Phys: Durga Swenson MD Acct: [id number] Dis Date: Status: REGER PHONE #: [phone] Exam Date: 08/07/2018 0026 FAX #: [phone] Reason: worsening abdominalpain, prior surgery and SBO EXAMS: CPT CODE: [id number] CT ABD PELVIS W/CONT 59060 PROCEDURE: CT abdomen and pelvis with contrast dated 08/07/2018 INDICATION: Acute abdominal pain. COMPARISON: CT abdomendated 07/23/2018. TECHNIQUE: A CT of the abdomen pelvis was performed using helical images from the thoracic outlet through the pubic symphysis with subsequent sagittal and coronal reconstruction. IV CONTRAST: 100 cc of Isovue- 300 GI CONTRAST: 450 mL dilute Omnipaque 240 FINDINGS: SOLID ORGANS: No acuteCT abnormalities of the liver, spleen, pancreas, adrenal glands or kidneys are detected. There is noCT evidence of acute renal collecting system obstruction or calcified renal collecting system stone. BILIARY: The patient is status post cholecystectomy. No significant biliary ductal dilatation is identified. BOWEL: While the exam worksheet indicates that oral contrast was given, the bowel is poorly opacified, limiting assessment. The patient is status post gastric bypass. No intestinal dilatation is identified to suggest acute obstruction. The appendix is visualized and is not acutely inflamed.There is no evidence of diverticular disease or inflammatory colonic wall thickening. PERITONEUM: There is no evidence of free intraperitoneal air or significant free intraperitoneal fluid. RETROPERITONEUM: The abdominal aorta is normal in caliber. There is no evidence of retroperitoneal mass or adenopathy. PELVIS: No abnormalities of the ovaries or adnexa are noted. The bladder has an unremarkable appearance. LOWER CHEST: The lung bases appear clear of acute disease. Small noncalcified nodules in both lower lobes appears stable going back to a prior CT the abdomen from 2015. ADDITIONAL FINDINGS: None. PAGE 1 Signed Report (CONTINUED) Name: LIANA ASHBY [facility] : 1975 Age/S: 43 / F [address] [place] [address] Blvd Unit #: [id number] Loc: [place] [address] Phys: Durga Swenson MD Acct: [id number] Dis Date: Status: REG ER PHONE #: [phone] Exam Date: 08/07/2018 0026 FAX #: [phone] Reason: worsening abdominal pain, prior surgery and SBO EXAMS: CPT CODE: [id number] CTABD PELVIS W/CONT 75738 (Continued) IMPRESSION: 1. No acute CT abnormalities of the abdomen or pelvis are detected. SL: 131 fo8165 Reported and signed by: Artemio Humphryes M.D. CC: Durga Swenson MD Technologist:RT Berto(R)(CT) CTDI: DLP: Trnscb Date/Time: 08/07/2018 (010) Mick Orig Print D/T: S: 08/07/2018 (0112) CTDI: DLP: PAGE 2 Signed ReportCOMPREHENSIVE METABOLIC [id number] 00:12:00 Test Item Value Reference Range Interpretation Comments SODIUM (test code = NA) 138 mEq/L 134-147 N POTASSIUM (test code = 4.1 mEq/L 3.4-5.0 N K) CHLORIDE (test code = 107 mEq/L 100-108 N CL) CARBON DIOXIDE (test 27 mEq/L 21-33 N code = CO2) ANION GAP (test code = 8 0-20 N GAP) GLUCOSE (test code = 95 mg/dL 70-110 N GLU) BLOOD UREA NITROGEN 9 mg/dL 7-18 N (test code = BUN) GLOMERULAR FILTRATION 60.8 95-105 L Units of measure = RATE (test code = GFR) ml/mi n/1.73 m2 CREATININE (test code = 1.0 mg/dL 0.6-1.3 N CREAT) TOTAL PROTEIN (test 7.5 g/dL 6.4-8.2 N code = PROT) ALBUMIN (test code = 3.50 g/dL 3.4-5.0 N ALB) CALCIUM (test code = 9.2 mg/dL 8.0-10.5 N CA) BILIRUBIN TOTAL (test 0.20 mg/dL 0.0-1.0 N code = BILT) SGOT/AST (test code = 12 IUnit/L 15-37 L AST) SGPT/ALT (test code = 18 IUnit/L 15-65 N ALT) ALKALINE PHOSPHATASE 120 IUnit/L 20-125 N TOTAL (test code = ALKP) [id number] 00:12:00 Test Item Value Reference Range Interpretation Comments LIPASE (test code = LIP) 78 IUnit/L 73-393 N HCG SERUM [id number] 00:12:00 Test Item Value Reference Range Interpretation Comments HCG SERUM QUAL (test code = SERUM NEGATIVE NEGATIVE HCGQL) COMPREHENSIVE METABOLIC [id number] 00:09:00 Test Item Value Reference Range Interpretation Comments SODIUM (test code = NA) 138 mEq/L 134-147 N POTASSIUM (test code = 4.1 mEq/L 3.4-5.0 N K) CHLORIDE (test code = 107 mEq/L 100-108 N CL) CARBON DIOXIDE (test 27 mEq/L 21-33 N code = CO2) ANION GAP (test code = 8 0-20 N GAP) GLUCOSE (test code = 95 mg/dL 70-110 N GLU) BLOOD UREA NITROGEN 9 mg/dL 7-18 N (test code = BUN) GLOMERULAR FILTRATION 60.8 95-105 L Units of measure = RATE (test code = GFR) ml/mi n/1.73 m2 CREATININE (test code = 1.0 mg/dL 0.6-1.3 N CREAT) TOTAL PROTEIN (test g/dL 6.4-8.2 code = PROT) ALBUMIN (test code = 3.50 g/dL 3.4-5.0 N ALB) CALCIUM (test code = 9.2 mg/dL 8.0-10.5 N CA) BILIRUBIN TOTAL (test mg/dL 0.0-1.0 code = BILT) SGOT/AST (test code = 12 IUnit/L 15-37 L AST) SGPT/ALT (test code = 18 IUnit/L 15-65 N ALT) ALKALINE PHOSPHATASE IUnit/L 20-125 TOTAL (test code = ALKP) [id number] 00:09:00 Test Item Value Reference Range Interpretation Comments LIPASE (test code = LIP) 78 IUnit/L 73-393 N HCG SERUM [id number] 00:09:00 Test Item Value Reference Range Interpretation Comments HCG SERUM QUAL (test code = SERUM NEGATIVE NEGATIVE HCGQL) COMPREHENSIVE METABOLIC [id number] 00:00:00 Test Item Value Reference Range Interpretation Comments SODIUM (test code = NA) mEq/L 134-147 POTASSIUM (test code = K) mEq/L 3.4-5.0 CHLORIDE (test code = CL) mEq/L 100-108 CARBON DIOXIDE (test code = CO2) mEq/L 21-33 ANION GAP (test code = GAP) 0-20 GLUCOSE (test code = GLU) mg/dL 70-110 BLOOD UREA NITROGEN (test code = mg/dL 7-18 BUN) GLOMERULAR FILTRATION RATE (test 95-105 code = GFR) CREATININE (test code = CREAT) mg/dL 0.6-1.3 TOTAL PROTEIN (test code = PROT) g/dL 6.4-8.2 ALBUMIN (test code = ALB) g/dL 3.4-5.0 CALCIUM (test code = CA) mg/dL 8.0-10.5 BILIRUBIN TOTAL (test code = BILT) mg/dL 0.0-1.0 SGOT/AST (test code = AST) IUnit/L 15-37 SGPT/ALT (test code = ALT) IUnit/L 15-65 ALKALINE PHOSPHATASE TOTAL (test IUnit/L 20-125 code = ALKP) [id number] 00:00:00 Test Item Value Reference Range Interpretation Comments LIPASE (test code = LIP) IUnit/L 73-393 HCG SERUM [id number] 00:00:00 Test Item Value Reference Range Interpretation Comments HCG SERUM QUAL (test code = SERUM NEGATIVE NEGATIVE HCGQL) CBC W/AUTO [id number] 23:40:00 Test Item Value Reference Range Interpretation Comments WHITE BLOOD CELL (test code = 11.13 x10 3/uL 4.5-11.0 H WBC) RED BLOOD CELL (test code = 4.48 x10 6/uL 3.54-5.02 N RBC) HEMOGLOBIN (test code = HGB) 12.9 g/dL 11.0-15.0 N HEMATOCRIT (test code = HCT) 41.8 % 33.0-45.0 N MEAN CELL VOLUME (test code = 93.3 fL 81.0-99.0 N MCV) MEAN CELL HGB (test code = 28.8 pg 27.0-33.0 N MCH) MEAN CELL HGB CONCETRATION 30.9 g/dL 33.0-37.0 L (test code = MCHC) RED CELL DISTRIBUTION WIDTH CV 13.8 % 11.5-14.5 N (test code = RDW) RED CELL DISTRIBUTION WIDTH SD 47.5 fL 37.0-54.0 N (test code = RDW-SD) PLATELET COUNT (test code = 287 x10 3/uL 150-400 N PLT) MEAN PLATELET VOLUME (test 11.2 fL 7.0-9.0 H code = MPV) NEUTROPHIL % (test code = NT%) 63.8 % 56.0-77.0 N IMMATURE GRANULOCYTE % (test 0.4 % 0.0-2.0 N code = IG%) LYMPHOCYTE % (test code = LY%) 22.7 % 14.0-32.0 N MONOCYTE % (test code = MO%) 8.9 % 4.8-9.0 N EOSINOPHIL % (test code = EO%) 3.8 % 0.3-3.7 H BASOPHIL % (test code = BA%) 0.4 % 0.0-2.0 N NUCLEATED RBC % (test code = 0.0 % 0-0 N NRBC%) NEUTROPHIL # (test code = NT#) 7.09 x10 3/uL 2.0-7.6 N IMMATURE GRANULOCYTE # (test 0.05 x10 3/uL 0.00-0.03 H code = IG#) LYMPHOCYTE # (test code = LY#) 2.53 x10 3/uL 1.0-3.8 N MONOCYTE # (test code = MO#) 0.99 x10 3/uL 0.1-0.8 H EOSINOPHIL # (test code = EO#) 0.42 x10 3/uL 0.0-0.2 H BASOPHIL # (test code = BA#) 0.05 x10 3/uL 0.0-0.2 N NUCLEATED RBC # (test code = 0.00 x10 3/uL 0.0-0.1 N NRBC#) MANUAL DIFF REQUIRED (test NO code = MDIFF) URINALYSIS [id number] 21:38:00 Test Item Value Reference Range Interpretation Comments UA COLOR (test code = COLU) STRAW YEL/STRAW UA APPEARANCE (test code = CLEAR CLEAR APPU) UA GLUCOSE DIPSTICK (test NEGATIVE NEGATIVE code = DGLUU) UA BILIRUBIN DIPSTICK (test NEGATIVE NEGATIVE code = BILU) UA KETONE DIPSTICK (test NEGATIVE NEGATIVE code = KETU) UA SPECIFIC GRAVITY (test 1.002 1.005-1.030 L code = SGU) UA BLOOD DIPSTICK (test NEGATIVE NEGATIVE code = WINSTON) UA PH DIPSTICK (test code = 7.0 5.0-7.0 N FOSTER) UA PROTEIN DIPSTICK (test NEGATIVE NEGATIVE code = PROU) UA UROBILINIOGEN DIPSTICK 0.2 mg/dL 0.2-1.0 (test code = URO) UA NITRITE DIPSTICK (test NEGATIVE NEGATIVE code = SU) UA LEUKOCYTE ESTERASE NEGATIVE NEGATIVE DIPSTICK (test code = LEUU) UA WBC (test code = WBCU) 0-3 WBC/HPF 0-3 UA RBC (test code = RBCU) NONE SEEN RBC/HPF 0-3 UA BACTERIA (test code = NONE SEEN /HPF NONE SEEN BACU) UA SQUAMOUS CELLS (test 0-5 /HPF NONE SEEN code = SQU) COMMENTS: Clean CatchBASIC METABOLIC [id number] 00:11:00 Test Item Value Reference Range Interpretation Comments SODIUM (test code = NA) 138 mEq/L 134-147 N POTASSIUM (test code = 4.1 mEq/L 3.4-5.0 N K) CHLORIDE (test code = 108 mEq/L 100-108 N CL) CARBON DIOXIDE (test 27 mEq/L 21-33 N code = CO2) ANION GAP (test code = 7 0-20 N GAP) GLUCOSE (test code = 95 mg/dL 70-110 N GLU) BLOOD UREA NITROGEN 6 mg/dL 7-18 L (test code = BUN) GLOMERULAR FILTRATION 68.7 95-105 L Units of measure = RATE (test code = GFR) ml/mi n/1.73 m2 CREATININE (test code = 0.9 mg/dL 0.6-1.3 N CREAT) CALCIUM (test code = 8.7 mg/dL 8.0-10.5 N CA) HEPATIC FUNCTION [id number] 00:11:00 Test Item Value Reference Range Interpretation Comments TOTAL PROTEIN (test code = PROT) 7.7 g/dL 6.4-8.2 N ALBUMIN (test code = ALB) 3.60 g/dL 3.4-5.0 N BILIRUBIN TOTAL (test code = 0.20 mg/dL 0.0-1.0 N BILT) BILIRUBIN DIRECT (test code = < 0.10 MG/DL 0.0-0.30 BILD) BILIRUBIN INDIRECT (test code = 0.10 MG/DL BILIND) SGOT/AST (test code = AST) 20 IUnit/L 15-37 N SGPT/ALT (test code = ALT) 19 IUnit/L 15-65 N ALKALINE PHOSPHATASE TOTAL (test 105 IUnit/L 20-125 N code = ALKP) [id number] 00:11:00 Test Item Value Reference Range Interpretation Comments LIPASE (test code = LIP) 62 IUnit/L 73-393 L HCG SERUM [id number] 00:11:00 Test Item Value Reference Range Interpretation Comments HCG SERUM QUAL (test code = SERUM NEGATIVE NEGATIVE HCGQL) [id number] 00:11:00 Test Item Value Reference Range Interpretation Comments TROPONIN-I < 0.015 ng/mL 0.000-0.045 N Negative: <= 0 .045 Positive: (test code = >= 0.046 Correl ation with TROPI) serial results, other cardiac markers andclinical findings is nec essary to determine the clinicalsignifi cance of this result. Results using different metho dologies should not be c omparedto one another as mary jo titative results may linette y by method. CBC W/AUTO [id number] 00:07:00 Test Item Value Reference Range Interpretation Comments WHITE BLOOD CELL (test code = 11.53 x10 3/uL 4.5-11.0 H WBC) RED BLOOD CELL (test code = 4.61 x10 6/uL 3.54-5.02 N RBC) HEMOGLOBIN (test code = HGB) 13.5 g/dL 11.0-15.0 N HEMATOCRIT (test code = HCT) 42.8 % 33.0-45.0 N MEAN CELL VOLUME (test code = 92.8 fL 81.0-99.0 N MCV) MEAN CELL HGB (test code = 29.3 pg 27.0-33.0 N MCH) MEAN CELL HGB CONCETRATION 31.5 g/dL 33.0-37.0 L (test code = MCHC) RED CELL DISTRIBUTION WIDTH CV 13.9 % 11.5-14.5 N (test code = RDW) RED CELL DISTRIBUTION WIDTH SD 47.6 fL 37.0-54.0 N (test code = RDW-SD) PLATELET COUNT (test code = 291 x10 3/uL 150-400 N PLT) MEAN PLATELET VOLUME (test 11.5 fL 7.0-9.0 H code = MPV) NEUTROPHIL % (test code = NT%) 68.7 % 56.0-77.0 N IMMATURE GRANULOCYTE % (test 0.3 % 0.0-2.0 N code = IG%) LYMPHOCYTE % (test code = LY%) 19.9 % 14.0-32.0 N MONOCYTE % (test code = MO%) 7.2 % 4.8-9.0 N EOSINOPHIL % (test code = EO%) 3.4 % 0.3-3.7 N BASOPHIL % (test code = BA%) 0.5 % 0.0-2.0 N NUCLEATED RBC % (test code = 0.0 % 0-0 N NRBC%) NEUTROPHIL # (test code = NT#) 7.92 x10 3/uL 2.0-7.6 H IMMATURE GRANULOCYTE # (test 0.03 x10 3/uL 0.00-0.03 N code = IG#) LYMPHOCYTE # (test code = LY#) 2.30 x10 3/uL 1.0-3.8 N MONOCYTE # (test code = MO#) 0.83 x10 3/uL 0.1-0.8 H EOSINOPHIL # (test code = EO#) 0.39 x10 3/uL 0.0-0.2 H BASOPHIL # (test code = BA#) 0.06 x10 3/uL 0.0-0.2 N NUCLEATED RBC # (test code = 0.00 x10 3/uL 0.0-0.1 N NRBC#) MANUAL DIFF REQUIRED (test NO code = MDIFF) BASIC METABOLIC [id number] 00:06:00 Test Item Value Reference Range Interpretation Comments SODIUM (test code = NA) mEq/L 134-147 POTASSIUM (test code = K) mEq/L 3.4-5.0 CHLORIDE (test code = CL) mEq/L 100-108 CARBON DIOXIDE (test code = CO2) mEq/L 21-33 ANION GAP (test code = GAP) 0-20 GLUCOSE (test code = GLU) mg/dL 70-110 BLOOD UREA NITROGEN (test code = BUN) mg/dL 7-18 GLOMERULAR FILTRATION RATE (test code 95-105 = GFR) CREATININE (test code = CREAT) mg/dL 0.6-1.3 CALCIUM (test code = CA) mg/dL 8.0-10.5 HEPATIC FUNCTION [id number] 00:06:00 Test Item Value Reference Range Interpretation Comments TOTAL PROTEIN (test code = PROT) g/dL 6.4-8.2 ALBUMIN (test code = ALB) g/dL 3.4-5.0 BILIRUBIN TOTAL (test code = BILT) mg/dL 0.0-1.0 BILIRUBIN DIRECT (test code = BILD) MG/DL 0.0-0.30 SGOT/AST (test code = AST) IUnit/L 15-37 SGPT/ALT (test code = ALT) IUnit/L 15-65 ALKALINE PHOSPHATASE TOTAL (test IUnit/L 20-125 code = ALKP) [id number] 00:06:00 Test Item Value Reference Range Interpretation Comments LIPASE (test code = LIP) IUnit/L 73-393 HCG SERUM [id number] 00:06:00 Test Item Value Reference Range Interpretation Comments HCG SERUM QUAL (test code = SERUM NEGATIVE NEGATIVE HCGQL) [id number] 00:06:00 Test Item Value Reference Range Interpretation Comments TROPONIN-I (test code = TROPI) ng/mL 0.000-0.045 - XR ABDOMEN 1V (KUB)2018-07-24 22:51:00 FAX: Evy Kaur DO [phone] [place]: St: REG Name: LIANA ASHBY [facility] : 1975 Age/S: 43/F [address] [place] [address] Unit #: [id number] Loc: [place] [address] Phys: Evy Perdomo DO Acct: [id number] Dis Date: Status: REG ER PHONE #: [phone] Exam Date: 07/24/20182237 FAX #: [phone] Reason: Abdominal Pain EXAMS: CPT CODE: [id number] XR ABDOMEN 1V (KUB) 97650 Clinical Indication: Abdominal pain; Comparison: X-ray June 10, 2011 FINDINGS: The AP supine view of the abdomen shows a non-obstructive bowel gas pattern. There is no abnormal dilatation of bowel loops. There is no pneumatosis or mass effect. There are no radiopaque densities noted. There are no clinically significant osseous abnormalities noted. IMPRESSION: Unremarkable 1 view abdomen. SL: [id number] at 2251 Reported and signed by: Holden Madrid M.D. CC: Evy Perdomo DO Technologist: RT Romelia(R) Trnscrd Date/Time/By: 07/24/2018 (1065) : By: MarisaLNV Orig Print D/T: S: 07/24/2018 (8736) PAGE 1 Signed Report - XR CHEST 1 [id number] 22:49:00 FAX: Evy Kaur DO [phone] [place]: St: REG Name: LIANA ASHBY [facility] : 1975 Age/S: 43/F [address] [place] [address] Unit #: [id number] Loc: [place] [address] Phys: Evy Perdomo DO Acct: [id number] Dis Date: Status: REG ER PHONE #: [phone] Exam Date: 07/24/20182237 FAX #: [phone] Reason: Abdominal Pain EXAMS: CPT CODE: [id number] XR CHEST 1 V 72295 Clinical Indication: Abdominal Pain Comparison: Chest x-ray July 23, 2018 FINDINGS: The frontal chest radiograph shows normal lung volumes. No interstitial or airspace opacities are seen. No pleural effusions are present. No pneumothorax is seen. The heart is normal in size. The trachea is midline. There are no clinically s ignificant osseous abnormalities noted. IMPRESSION: No chest radiographic evidence of acute cardiopulmonary disease. SL: [id number] at 1600 Reported and signed by: Holden Madrid M.D. CC: Evy Perdomo DO Technologist: RT Romelia(R) Trnscrd Date/Time/By: 07/24/2018 (0624) : By: MarisaLNV Orig Print D/T: S: 07/24/2018 (8506) PAGE 1 Signed ReportURINALYSIS [id number] 22:11:00 Test Item Value Reference Range Interpretation Comments UA COLOR (test code = COLU) YELLOW YEL/STRAW UA APPEARANCE (test code = APPU) CLOUDY CLEAR A UA GLUCOSE DIPSTICK (test code = NEGATIVE NEGATIVE DGLUU) UA BILIRUBIN DIPSTICK (test code NEGATIVE NEGATIVE = BILU) UA KETONE DIPSTICK (test code = NEGATIVE NEGATIVE KETU) UA SPECIFIC GRAVITY (test code = 1.004 1.005-1.030 L SGU) UA BLOOD DIPSTICK (test code = NEGATIVE NEGATIVE WINSTON) UA PH DIPSTICK (test code = FOSTER) 7.0 5.0-7.0 N UA PROTEIN DIPSTICK (test code = NEGATIVE NEGATIVE PROU) UA UROBILINIOGEN DIPSTICK (test 0.2 mg/dL 0.2-1.0 code = URO) UA NITRITE DIPSTICK (test code = NEGATIVE NEGATIVE SU) UA LEUKOCYTE ESTERASE DIPSTICK NEGATIVE NEGATIVE (test code = LEUU) UA WBC (test code = WBCU) 0-3 WBC/HPF 0-3 UA RBC (test code = RBCU) 4-10 RBC/HPF 0-3 UA BACTERIA (test code = BACU) TRACE /HPF NONE SEEN UA SQUAMOUS CELLS (test code = 36-50 /HPF NONE SEEN A SQU) COMMENTS: Clean Catch- CT ABD PELVIS [id number] 00:07:00 FAX: Adenike Stone MD [phone] [place]: St: REG Name: LIANA ASHBY [facility] : 1975 Age/S: 43/F68[address] [facility] Unit: [id number] Loc: [place], [place] Phys: [place] [id number] Acct: [id number] Dis Date: Status: REG ER PHONE #: [phone] Exam Date: 07/23/2018 2321 FAX #: [phone] Reason: ABDO PAIN, RECENT FABIO 6 DAYS AGO EXAMS: CPT CODE: [id number] CT ABD PELVISW/CONT 87188 CT abdomen and pelvis with IV contrast. Indication: Abdominal pain, recent cholecystectomy Location: R16 Comparison: Exam of one day prior Technique: CT images of the abdomen and pelvis were obtained from the diaphragm to the pubic symphysis after the administration of intravenous contrast contrast. Coronal reformats are provided. One or more of the following dose reduction techniques were used: Automated exposure control, adjustment of the mA and/or kV according to patient size, and/or utilization of iterative reconstruction technique. Findings: Lungs bases: Unremarkable. Upper GI: Patient is status post gastric surgery. Liver: Unremarkable. Gallbladder: Surgically absent Pancreas: Unremarkable. Spleen: Unremarkable with the exception of a large dystrophic splenic calcification. Adrenal glands: Unremarkable. Kidneys: Unremarkable. Bowel: No bowel obstruction. The appendix is unremarkable with the exception of hyperdense internal material possibly reflective of stool versus appendicoliths.. A moderate to large volume of stool seen throughout the colon compatible clinical diagnosis of constipation. Peritoneum: No ascites. No free air Skeletal: No acute fracture.. Impression: No CT evidence of an acute abnormality within the abdominal pelvis to explain the patient's symptomology with the exception of a large volume of stool seen throughout the colon nonspecific but compatible clinical diagnosis of constipation. Additional findings as detailed above PAGE 1 Signed Report (CONTINUED) FAX: Adenike Stone MD [phone] [place]: St: REG Name: LIANA ASHBY [facility] : 1975 Age/S: 43/F [address] [facility] Unit: [id number] Loc: [place], [place]: [place] [id number] Acct: [id number] Dis Date: Status: REG ER PHONE #: [phone] Exam Date: 07/23/2018 2321FAX #: [phone] Reason: ABDO PAIN, RECENT FABIO 6 DAYS AGO EXAMS: CPT CODE: [id number] CT ABD PELVIS W/CONT 03838 <Continued> at 0007 Reported and signed by: Heidi Mixon M.D. CC: Adenike Stone MD Technologist: HIEN CONNOLLY Trnscrd Dt/Tm: 07/24/2018 (0007) [id number] Orig Print D/T: S: 07/24/2018 (0010 PAGE 2 Signed ReportLACTIC [id number] 23:00:00 Test Item Value Reference Range Interpretation Comments LACTIC ACID (test code = LACT) 0.5 MMOL/L 0.4-2.0 N BASIC METABOLIC [id number] 22:59:00 Test Item Value Reference Range Interpretation Comments SODIUM (test code = NA) 137 mmol/l 134.0-147.0 N POTASSIUM (test code = K) 3.8 mmol/L 3.6-5.2 N CHLORIDE (test code = CL) 103 mmol/l 98.0-107.0 N CARBON DIOXIDE (test code = CO2) 23.7 mmol/l 21.0-33.0 N ANION GAP (test code = GAP) 14.1 0-20 N GLUCOSE (test code = GLU) 103 mg/dl 70.0-110.0 N BLOOD UREA NITROGEN (test code = 9 mg/dl 7.0-18.0 N BUN) CREATININE (test code = CREAT) 0.87 mg/dL 0.60-1.30 N GFR NON BLACK (test code = 76 mL/min 95-105 L GFRNONBLACK) GFR BLACK (test code = GFRBLACK) 92 mL/min 115-127 L CALCIUM (test code = CA) 9.9 mg/dl 8.0-10.5 N Specimen comments: Clean CatchHEPATIC FUNCTION PANEL [id number] 22:59:00 Test Item Value Reference Range Interpretation Comments TOTAL PROTEIN (test code = PROT) 7.3 gm/dL 6.4-8.2 N ALBUMIN (test code = ALB) 3.4 gm/dl 3.2-4.7 N BILIRUBIN TOTAL (test code = BILT) 0.2 mg/dl 0.0-1.0 N BILIRUBIN DIRECT (test code = 0.1 mg/dl 0.0-0.3 N BILD) SGOT/AST (test code = AST) 16 Units/L 15.0-37.0 N SGPT/ALT (test code = ALT) 16 Units/L 12.0-78.0 N ALKALINE PHOSPHATASE TOTAL (test 99 Units/L 50.0-136.0 N code = ALKP) Specimen comments: Clean [id number] 22:59:00 Test Item Value Reference Range Interpretation Comments LIPASE (test code = LIP) 65 Units/L 65.0-230.0 N Specimen comments: Clean [id number] 22:59:00 Test Item Value Reference Range Interpretation Comments TROPONIN-I (test <0.02 NG/ML 0.00-0.06 N REFERENCE R BELINDA code = TROPI) TROPONIN I HEA LTHY INDIVIDUALS: <0 .06 ng/mL R/O ISCHE TUSHAR: 0.07 - 0.60 ng/ mL CUT-OFF RANGE F OR AMI: 0.60 - 1.5 ng/m L Specimen comments: Clean CatchPROTHROMBIN [id number] 22:58:00 Test Item Value Reference Range Interpretation Comments PROTHROMBIN TIME 10.9 SECONDS 9.9-12.8 N PATIENT (test code = PTP) INTERNATIONAL NORMAL 0.9 0.89-1.14 N THE INR IS TO BE USED RATIO (test code = ONLY FOR MONITORING INR) ORAL ANTICOAGULANTTH ERAPY. THE FOLLOWING A RE SUGGESTED RANGE S FROM [facility] LEGE OF CHEST PHYSICIANS:KEDAR CATION INR VALUEPROPHY LAXIS OF VENOUS THROM BOSIS (ORTHOPEDIC ULI ANAND) 2.0 - 3.0PROPHY LAXIS OF VENOUS THROM BOSIS (OTHER THAN HIG H-RISK SURGERY) 2.0 - 3.0TREATMENT OF DEEP VEIN THROMBOSIS OR PULMONARY EMBOL ISM 2.0 - 3.0PREVENTION OF SYSTEMIC EMBOLI SM TISSUE HEART VA LVES 2.0 - 3.0 ACUTE MYOCARDIAL INFA RCTION (TO PREVENT SYS TEMIC EMBOLISM) 2.0 - 3.0 ACUTE MYOCARDIA L INFARCTION (TO PREVENT RECURRENT INFAR CT) 2.5 - 3.0 VALVULAR HEART DISEASE 2.0 - 3 .0 ATRIAL FIBRILAT ION 2.0 - 3.0BILEAFLET MECHANICAL VALV E IN AORTIC POSITION 2.0 - 3.0MECHANICAL PROSTHETIC VALV ES (HIGH RISK) 2.5 - 3.5PRESENCE OF LUPUS ANTICOAGULANT O R ANTIPHOSPHOLIPI D ANTIBODIES 2.5 - 3.5 Specimen comments: Clean CatchTHROMBOPLASTIN TIME [id number] 22:58:00 Test Item Value Reference Range Interpretation Comments THROMBOPLASTIN TIME 34.20 SECONDS 25.86-36.07 N [facility] d [facility] PARTIAL (test code = Therape utic Range - PTT) APTT of 55.8-85 .4 secondscorrelat es with plasma heparin concentration o f 0.2-0.4 u/mL Ne w range effective - Specimen comments: Clean CatchURINALYSIS [id number] 22:56:00 Test Item Value Reference Range Interpretation Comments UA COLOR (test code = STRAW COLU) UA APPEARANCE (test code SLHZY = APPU) UA GLUCOSE DIPSTICK (test NORMAL mg/dl NORMAL code = DGLUU) UA BILIRUBIN DIPSTICK NEGATIVE mg/dL NEGATIVE (test code = BILU) UA KETONE DIPSTICK (test NEGATIVE mg/dl NEGATIVE code = KETU) UA SPECIFIC GRAVITY (test 1.010 1.000-1.030 code = SGU) UA BLOOD DIPSTICK (test NEGATIVE Jorge Alberto/micL NEGATIVE code = WINSTON) UA PH DIPSTICK (test code 6.0 5.0-9.0 = FOSTER) UA PROTEIN DIPSTICK (test NEGATIVE mg/dl NEGATIVE code = PROU) UA UROBILINIOGEN DIPSTICK NORMAL mg/dl NORMAL (test code = URO) UA NITRITE DIPSTICK (test NEGATIVE NEGATIVE code = SU) UA LEUKOCYTE ESTERASE 25 Debi/micL Debi/micL NEGATIVE A DIPSTICK (test code = LEUU) UA WBC (test code = WBCU) 3-5/HPF WBC/HPF NONE UA RBC (test code = RBCU) NONE SEEN RBC/HPF 0-3 UA EPITHELIAL CELLS (test 10-15 EPI/HPF 0-3 A code = EPIU) UA BACTERIA (test code = MANY NONE A BACU) Specimen comments: Clean CatchUR HCG [id number] 22:56:00 Test Item Value Reference Range Interpretation Comments UR HCG QUAL (test code = HCGQLU) NEGATIVE NEGATIVE Specimen comments: Clean CatchBASIC METABOLIC [id number] 22:54:00 Test Item Value Reference Range Interpretation Comments SODIUM (test code = NA) 137 mmol/l 134.0-147.0 N POTASSIUM (test code = K) 3.8 mmol/L 3.6-5.2 N CHLORIDE (test code = CL) 103 mmol/l 98.0-107.0 N CARBON DIOXIDE (test code = CO2) 23.7 mmol/l 21.0-33.0 N ANION GAP (test code = GAP) 14.1 0-20 N GLUCOSE (test code = GLU) mg/dl 70.0-110.0 BLOOD UREA NITROGEN (test code = mg/dl 7.0-18.0 BUN) CREATININE (test code = CREAT) mg/dL 0.60-1.30 GFR NON BLACK (test code = mL/min 95-105 GFRNONBLACK) GFR BLACK (test code = GFRBLACK) mL/min 115-127 CALCIUM (test code = CA) mg/dl 8.0-10.5 Specimen comments: Clean CatchHEPATIC FUNCTION PANEL [id number] 22:54:00 Test Item Value Reference Range Interpretation Comments TOTAL PROTEIN (test code = PROT) gm/dL 6.4-8.2 ALBUMIN (test code = ALB) gm/dl 3.2-4.7 BILIRUBIN TOTAL (test code = BILT) mg/dl 0.0-1.0 BILIRUBIN DIRECT (test code = BILD) mg/dl 0.0-0.3 SGOT/AST (test code = AST) Units/L 15.0-37.0 SGPT/ALT (test code = ALT) Units/L 12.0-78.0 ALKALINE PHOSPHATASE TOTAL (test Units/L 50.0-136.0 code = ALKP) Specimen comments: Clean [id number] 22:54:00 Test Item Value Reference Range Interpretation Comments LIPASE (test code = LIP) Units/L 65.0-230.0 Specimen comments: Clean [id number] 22:54:00 Test Item Value Reference Range Interpretation Comments TROPONIN-I (test code = TROPI) NG/ML 0.00-0.06 Specimen comments: Clean CatchCBC W/AUTO [id number] 22:47:00 Test Item Value Reference Range Interpretation Comments WHITE BLOOD CELL (test code = 10.4 K/mm3 4.5-11.0 N WBC) RED BLOOD CELL (test code = 4.47 M/mm3 3.80-5.20 N RBC) HEMOGLOBIN (test code = HGB) 12.9 gm/dL 12.0-16.0 N HEMATOCRIT (test code = HCT) 40.4 % 36.0-48.0 N MEAN CELL VOLUME (test code = 90.4 UM3 82.0-99.0 N MCV) MEAN CELL HGB (test code = MCH) 28.9 UUG 25.5-32.5 N MEAN CELL HGB CONCETRATION 31.9 gm/dL 29.0-35.5 N (test code = MCHC) RED CELL DISTRIBUTION WIDTH 13.8 % 11.5-15.0 N (test code = RDW) RED CELL DISTRIBUTION WIDTH SD 46.1 fL 34.8-50.2 N (test code = RDW-SD) PLATELET COUNT (test code = 272 K/mm3 150-400 N PLT) MEAN PLATELET VOLUME (test code 11.4 fl 7.4-10.4 H = MPV) NEUTROPHIL % (test code = NT%) 61.5 % 49.0-76.0 N IMMATURE GRANULOCYTE % (test 0.3 % 0.0-0.4 N code = IG%) LYMPHOCYTE % (test code = LY%) 25.3 % 23.0-38.0 N MONOCYTE % (test code = MO%) 7.9 % 1.0-10.0 N EOSINOPHIL % (test code = EO%) 4.7 % 1.0-5.0 N BASOPHIL % (test code = BA%) 0.3 % 0.0-1.0 N NEUTROPHIL # (test code = NT#) 6.4 K/mm3 2.4-6.3 H IMMATURE GRANULOCYTE # (test 0.03 x10 3/uL 0.00-0.07 N code = IG#) LYMPHOCYTE # (test code = LY#) 2.6 K/mm3 1.2-4.0 N MONOCYTE # (test code = MO#) 0.8 K/mm3 0.0-0.6 H EOSINOPHIL # (test code = EO#) 0.5 K/MM3 0.0-0.7 N BASOPHIL # (test code = BA#) 0.0 K/mm3 0.0-0.2 N URINALYSIS [id number] 22:45:00 Test Item Value Reference Range Interpretation Comments UA COLOR (test code = STRAW COLU) UA APPEARANCE (test code SLHZY = APPU) UA GLUCOSE DIPSTICK (test NORMAL mg/dl NORMAL code = DGLUU) UA BILIRUBIN DIPSTICK NEGATIVE mg/dL NEGATIVE (test code = BILU) UA KETONE DIPSTICK (test NEGATIVE mg/dl NEGATIVE code = KETU) UA SPECIFIC GRAVITY (test 1.010 1.000-1.030 code = SGU) UA BLOOD DIPSTICK (test NEGATIVE Jorge Alberto/micL NEGATIVE code = WINSTON) UA PH DIPSTICK (test code 6.0 5.0-9.0 = FOSTER) UA PROTEIN DIPSTICK (test NEGATIVE mg/dl NEGATIVE code = PROU) UA UROBILINIOGEN DIPSTICK NORMAL mg/dl NORMAL (test code = URO) UA NITRITE DIPSTICK (test NEGATIVE NEGATIVE code = SU) UA LEUKOCYTE ESTERASE 25 Debi/micL Debi/micL NEGATIVE A DIPSTICK (test code = LEUU) UA WBC (test code = WBCU) WBC/HPF NONE UA RBC (test code = RBCU) RBC/HPF 0-3 UA EPITHELIAL CELLS (test EPI/HPF 0-3 code = EPIU) UA BACTERIA (test code = NONE BACU) Specimen comments: Clean CatchUR HCG [id number] 22:45:00 Test Item Value Reference Range Interpretation Comments UR HCG QUAL (test code = HCGQLU) NEGATIVE NEGATIVE Specimen comments: Clean CatchURINALYSIS [id number] 22:44:00 Test Item Value Reference Range Interpretation Comments UA COLOR (test code = STRAW COLU) UA APPEARANCE (test code SLHZY = APPU) UA GLUCOSE DIPSTICK (test NORMAL mg/dl NORMAL code = DGLUU) UA BILIRUBIN DIPSTICK NEGATIVE mg/dL NEGATIVE (test code = BILU) UA KETONE DIPSTICK (test NEGATIVE mg/dl NEGATIVE code = KETU) UA SPECIFIC GRAVITY (test 1.010 1.000-1.030 code = SGU) UA BLOOD DIPSTICK (test NEGATIVE Jorge Alberto/micL NEGATIVE code = WINSTON) UA PH DIPSTICK (test code 6.0 5.0-9.0 = FOSTER) UA PROTEIN DIPSTICK (test NEGATIVE mg/dl NEGATIVE code = PROU) UA UROBILINIOGEN DIPSTICK NORMAL mg/dl NORMAL (test code = URO) UA NITRITE DIPSTICK (test NEGATIVE NEGATIVE code = SU) UA LEUKOCYTE ESTERASE 25 Debi/micL Debi/micL NEGATIVE A DIPSTICK (test code = LEUU) UA WBC (test code = WBCU) WBC/HPF NONE UA RBC (test code = RBCU) RBC/HPF 0-3 UA EPITHELIAL CELLS (test EPI/HPF 0-3 code = EPIU) UA BACTERIA (test code = NONE BACU) Specimen comments: Clean CatchUR HCG [id number] 22:44:00 Test Item Value Reference Range Interpretation Comments UR HCG QUAL (test code = HCGQLU) NEGATIVE Specimen comments: Clean Catch- XR CHEST 1 [id number] 22:10:00 FAX: Adenike Stone MD [phone] [place]: St: REG Name: LIANA ASHBY [facility] : 1975 Age/S: 43/F [address] [facility] Unit #: [id number] Loc: [place], [place]: [place] [id number] Acct: [id number] Dis Date: Status: REG ER PHONE #: [phone] Exam Date: 07/23/20182156 FAX #: [phone] Reason: ABDO PAIN, RECENT FABIO 6 DAYS AGO EXAMS: CPT CODE: [id number] XR CHEST1 V 17990 EXAM: - XR CHEST 1 V HISTORY: Abdominal pain. COMPARISON: June 09, 2011. FINDINGS: Single AP view of the chest is provided. Heart size and vascularity are within normal limits. The lungsare clear of focal consolidation. No effusion, pneumothorax, or acute osseous abnormality. Limited exam. There is no significant change compared to previous exam allowing for the difference in position. IMPRESSION: No consolidation or effusion. Consider additional evaluation as clinically warranted. at 2210 Reported and signed by:Cheko Castellon M.D. CC: Adenike Stone MD Technologist: KENNETH CARRANZA Trnscrd Date/Time/By: 07/23/2018 (4398) : By: [email or web address] PAGE 1 Signed Report FAX: Adenike Stone MD [phone] [place]: St: REG -- Name: LIANA ASHBY [facility] : 1975 Age/S: 43/F [address] [facility] Unit #: [id number] Loc: [place], [place]: [place] [id number] Acct: [id number] Dis Date: Status: REG ER PHONE #: [phone] Exam Date: 07/23/20182156 FAX #: [phone] Reason: ABDO PAIN, RECENT FABIO 6 DAYS AGO EXAMS: CPT CODE: [id number] XR CHEST 1 V 30306 <Continued> Orig Print D/T: S: 07/23/2018 (5302) PAGE 2 Signed Report LACTIC ACID [id number] 04:43:00 Test Item Value Reference Range Interpretation Comments LACTIC ACID REPEAT (test code = 1.7 mmol/l 0.4-1.9 N LACTR) - CT ABD PELVIS W/O [id number] 03:12:00 Name: LIANA ASHBY [facility] : 1975 Age/S: 43 / F [address] [place] [address] Unit #: [id number] Loc: [place] [address] Phys: Remington Ang DO Acct: [id number] Dis Date: Status: REGER PHONE #: [phone] Exam Date: 07/22/2018 0246 FAX #: [phone] Reason: abdominal pain RUQ pain EXAMS: CPT CODE: [id number] CT ABD PELVIS W/O CONT 38891 PROCEDURE: CT abdomen and pelvis without contrast dated 07/22/2018 INDICATION: Acute right upper quadrant abdominal pain. COMPARISON: CT abdomen dated 2015. TECHNIQUE: A CT of the abdomen pelvis was performed using helical images from the thoracic outlet through the pubic symphysis with subsequent sagittal and coronal reconstruction. IV CONTRAST: None. GI CONTRAST: None. FINDINGS: SOLID ORGANS: No acute CT abnormalities of the liver, spleen, pancreas, adrenal glands or kidneys are detected. There is no CT evidence of acute renal collecting system obstruction or calcified renal collecting system stone. BILIARY: The patient is status post cholecystectomy. No significant biliary ductal dilatation is identified. BOWEL: Bowel assessment islimited by the absence of bowel contrast. 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 No intestinal dilatation is identified to suggest acute obstruction. The appendix is well visualized and does not appear acutely inflamed. There is no evidence of diverticular disease or inflammatory colonic wall thickening. PERITONEUM: There is no evidence of free intraperitoneal air or significant free intraperitoneal fluid. RETROPERITONEUM: The abdominal aorta is normal in caliber. There is no evidenceof retroperitoneal mass or adenopathy. PELVIS: No abnormalities of the ovaries or adnexa are identified. The bladder has an unremarkable appearance. LOWER CHEST: The lung bases appear clear of acute dis ease. Small noncalcified nodules are identified in both lower lobes and appears stable when comparedto the 2015 exam. Long-term stability would favor a postinflammatory etiology. ADDITIONAL FINDINGS: A fat-containing ventral hernia is identified PAGE 1 Signed Report (CONTINUED) Name: LIANA ASHBY [facility] [place] : 1975 Age/S: 43 / F [address] [place] [address] Unit #: [id number] Loc: [place] [address] Phys: Remington Ang DO Acct: [id number] Dis Date: Status: REG ER PHONE #: [phone] Exam Date: 07/22/2018 0246 FAX #: [phone] Reason: abdominal pain RUQ pain EXAMS: CPT CODE: [id number] CT ABD PELVIS W/O CONT 04147 (Continued) just above the umbilicus. IMPRESSION: 1. No acute CT abnormalities of the abdomen or pelvis are detected. SL: 131 at 0312 Reported and signed by: Artemio Humphreys M.D. CC: Remington Ang DO Technologist:RT Cristian(R) CTDI: DLP: Trnscb Date/Time: 07/22/2018 (311) Mick Orig Print D/T: S: 07/22/2018 (314) CTDI: DLP: PAGE 2 Signed ReportCBC W/AUTO [id number] 02:35:00 Test Item Value Reference Range Interpretation Comments WHITE BLOOD CELL (test code = 10.96 x10 3/uL 4.5-11.0 N WBC) RED BLOOD CELL (test code = 4.72 x10 6/uL 3.54-5.02 N RBC) HEMOGLOBIN (test code = HGB) 13.9 g/dL 11.0-15.0 N HEMATOCRIT (test code = HCT) 44.8 % 33.0-45.0 N MEAN CELL VOLUME (test code = 94.9 fL 81.0-99.0 N MCV) MEAN CELL HGB (test code = 29.4 pg 27.0-33.0 N MCH) MEAN CELL HGB CONCETRATION 31.0 g/dL 33.0-37.0 L (test code = MCHC) RED CELL DISTRIBUTION WIDTH CV 14.0 % 11.5-14.5 N (test code = RDW) RED CELL DISTRIBUTION WIDTH SD 49.1 fL 37.0-54.0 N (test code = RDW-SD) PLATELET COUNT (test code = 274 x10 3/uL 150-400 N PLT) MEAN PLATELET VOLUME (test 11.7 fL 7.0-9.0 H code = MPV) NEUTROPHIL % (test code = NT%) 63.3 % 56.0-77.0 N IMMATURE GRANULOCYTE % (test 0.3 % 0.0-2.0 N code = IG%) LYMPHOCYTE % (test code = LY%) 24.0 % 14.0-32.0 N MONOCYTE % (test code = MO%) 8.2 % 4.8-9.0 N EOSINOPHIL % (test code = EO%) 3.7 % 0.3-3.7 N BASOPHIL % (test code = BA%) 0.5 % 0.0-2.0 N NUCLEATED RBC % (test code = 0.0 % 0-0 N NRBC%) NEUTROPHIL # (test code = NT#) 6.94 x10 3/uL 2.0-7.6 N IMMATURE GRANULOCYTE # (test 0.03 x10 3/uL 0.00-0.03 N code = IG#) LYMPHOCYTE # (test code = LY#) 2.63 x10 3/uL 1.0-3.8 N MONOCYTE # (test code = MO#) 0.90 x10 3/uL 0.1-0.8 H EOSINOPHIL # (test code = EO#) 0.41 x10 3/uL 0.0-0.2 H BASOPHIL # (test code = BA#) 0.05 x10 3/uL 0.0-0.2 N NUCLEATED RBC # (test code = 0.00 x10 3/uL 0.0-0.1 N NRBC#) MANUAL DIFF REQUIRED (test NO code = MDIFF) COMPREHENSIVE METABOLIC [id number] 02:31:00 Test Item Value Reference Range Interpretation Comments SODIUM (test code = NA) 139 mEq/L 134-147 N POTASSIUM (test code = 3.8 mEq/L 3.4-5.0 N K) CHLORIDE (test code = 108 mEq/L 100-108 N CL) CARBON DIOXIDE (test 25 mEq/L 21-33 N code = CO2) ANION GAP (test code = 10 0-20 N GAP) GLUCOSE (test code = 81 mg/dL 70-110 N GLU) BLOOD UREA NITROGEN 7 mg/dL 7-18 N (test code = BUN) GLOMERULAR FILTRATION 68.7 95-105 L Units of measure = RATE (test code = GFR) ml/mi n/1.73 m2 CREATININE (test code = 0.9 mg/dL 0.6-1.3 N CREAT) TOTAL PROTEIN (test 7.9 g/dL 6.4-8.2 N code = PROT) ALBUMIN (test code = 3.60 g/dL 3.4-5.0 N ALB) CALCIUM (test code = 9.4 mg/dL 8.0-10.5 N CA) BILIRUBIN TOTAL (test 0.20 mg/dL 0.0-1.0 N code = BILT) SGOT/AST (test code = 16 IUnit/L 15-37 N AST) SGPT/ALT (test code = 22 IUnit/L 15-65 N ALT) ALKALINE PHOSPHATASE 111 IUnit/L 20-125 N TOTAL (test code = ALKP) [id number] 02:31:00 Test Item Value Reference Range Interpretation Comments LIPASE (test code = LIP) 110 IUnit/L 73-393 N HCG SERUM [id number] 02:31:00 Test Item Value Reference Range Interpretation Comments HCG SERUM QUAL (test code = SERUM NEGATIVE NEGATIVE HCGQL) COMPREHENSIVE METABOLIC [id number] 02:24:00 Test Item Value Reference Range Interpretation Comments SODIUM (test code = NA) mEq/L 134-147 POTASSIUM (test code = K) mEq/L 3.4-5.0 CHLORIDE (test code = CL) mEq/L 100-108 CARBON DIOXIDE (test code = CO2) mEq/L 21-33 ANION GAP (test code = GAP) 0-20 GLUCOSE (test code = GLU) mg/dL 70-110 BLOOD UREA NITROGEN (test code = mg/dL 7-18 BUN) GLOMERULAR FILTRATION RATE (test 95-105 code = GFR) CREATININE (test code = CREAT) mg/dL 0.6-1.3 TOTAL PROTEIN (test code = PROT) g/dL 6.4-8.2 ALBUMIN (test code = ALB) g/dL 3.4-5.0 CALCIUM (test code = CA) mg/dL 8.0-10.5 BILIRUBIN TOTAL (test code = BILT) mg/dL 0.0-1.0 SGOT/AST (test code = AST) IUnit/L 15-37 SGPT/ALT (test code = ALT) IUnit/L 15-65 ALKALINE PHOSPHATASE TOTAL (test IUnit/L 20-125 code = ALKP) [id number] 02:24:00 Test Item Value Reference Range Interpretation Comments LIPASE (test code = LIP) IUnit/L 73-393 HCG SERUM [id number] 02:24:00 Test Item Value Reference Range Interpretation Comments HCG SERUM QUAL (test code = SERUM NEGATIVE NEGATIVE HCGQL) LACTIC ACID [id number] 01:59:00 Test Item Value Reference Range Interpretation Comments LACTIC ACID POC 2.1 MMOL/L 0.90-1.70 H Performed by certified (test code = LACTP) recovery unit operator at [facility] URINALYSIS [id number] 01:50:00 Test Item Value Reference Range Interpretation Comments UA COLOR (test code = COLU) YELLOW YEL/STRAW UA APPEARANCE (test code = CLOUDY CLEAR A APPU) UA GLUCOSE DIPSTICK (test code NEGATIVE NEGATIVE = DGLUU) UA BILIRUBIN DIPSTICK (test NEGATIVE NEGATIVE code = BILU) UA KETONE DIPSTICK (test code NEGATIVE NEGATIVE = KETU) UA SPECIFIC GRAVITY (test code 1.004 1.005-1.030 L = SGU) UA BLOOD DIPSTICK (test code = NEGATIVE NEGATIVE WINSTON) UA PH DIPSTICK (test code = 7.0 5.0-7.0 N FOSTER) UA PROTEIN DIPSTICK (test code NEGATIVE NEGATIVE = PROU) UA UROBILINIOGEN DIPSTICK 0.2 mg/dL 0.2-1.0 (test code = URO) UA NITRITE DIPSTICK (test code NEGATIVE NEGATIVE = SU) UA LEUKOCYTE ESTERASE DIPSTICK NEGATIVE NEGATIVE (test code = LEUU) UA WBC (test code = WBCU) 0-3 WBC/HPF 0-3 UA RBC (test code = RBCU) 0-3 RBC/HPF 0-3 UA BACTERIA (test code = BACU) NONE SEEN /HPF NONE SEEN UA SQUAMOUS CELLS (test code = 26-35 /HPF NONE SEEN A SQU) UA MUCUS (test code = MUCU) TRACE /LPF NONE SEEN COMMENTS: Clean CatchLACTIC ACID [id number] 01:39:00 Test Item Value Reference Range Interpretation Comments LACTIC ACID POC 3.3 MMOL/L 0.90-1.70 H Performed by certified (test code = LACTP) recovery unit operator at [facility] Comprehensive Metabolic [id number] 07:45:00 Test Item Value Reference Range Interpretation Comments Sodium (test code = 142 mmol/L 135-145 N NA) Potassium (test 4.9 mmol/L 3.5-5.1 N code = K) Chloride (test code 105 mmol/L 98-105 N = CL) Carbon Dioxide 24 mmol/L 22-29 N (test code = CO2) Glucose (test code 92 mg/dL 70-115 N = GLU) Blood Urea Nitrogen 8 mg/dL 6-20 N (test code = BUN) Creatinine (test 0.8 mg/dL 0.5-0.9 N code = CREAT) Calcium (test code 9.6 mg/dL 8.3-10.5 N = CA) Prot Total (test 6.7 g/dL 6.4-8.3 N code = TP) Albumin (test code 3.8 g/dL 3.5-5.2 N = ALB) A/G Ratio (test 1.3 Ratio code = AGRATIO) Globulin (test code 2.9 2.9-3.1 N = GLOB) Bili Total (test <0.1 mg/dL 0.1-0.9 L code = TBIL) Alk Phos (test code 92 U/L 35-104 N = APHOS) AST (test code = 15 U/L 1-32 N AST) ALT (test code = 9 U/L 1-33 N ALT) BUN/Creatinine 10.0 Ratio (test code = BCRATIO) Anion Gap (test 13 mmol/L 7-16 N code = AGAP) Estimated GFR (test >60 eGFR (es timated code = GFR) mL/min/1.73m2 Glomerular Andrew tration Rate) is an est imated value,calculate d from the patient's s addison creatinine usin g the MDRD equation.I t is NOT the patient 's actual GFR. The eGFR provides a more clinicallyusefu l measure of kidn ey disease than se rum creatinine alone.This calculation emilee es sex and race into account, if the informationis provided. If th e race is not provided , and the patient isAfrican-Ameri can, multiply by 1.2 12. If sex is not prov ided, and thepatient is female, multipl y by 0.742. Results for patients <18 ye ars ofage have not been validated by th e MDRD study and soraya pride be interpretedwith caution.eGFR Re sult Interpretation: eGFR > or = 60 is in t he Normal RangeeGF R < 60 may mean kidney diseaseeGFR < 1 5 may mean kidney failureRange s recommended by the [employer] Foundation,http ://nkd ep.nih.gov CBC with [id number] 09:02:00 Test Item Value Reference Range Interpretation Comments WBC (test code = WBC) 8.2 K/cumm 4.4-10.5 N RBC (test code = RBC) 4.23 M/cumm 3.75-5.20 N Hemoglobin (test code = 13.6 gm/dL 12.2-14.8 N HGB) Hematocrit (test code = 40.7 % 36.5-44.4 N HCT) MCV (test code = MCV) 96.1 fL 80-100 N MCH (test code = MCH) 32.3 pg 27.0-32.5 N MCHC (test code = MCHC) 33.6 g/dL 32.0-37.5 N RDW (test code = RDW) 12.7 % 11.5-14.5 N Platelet Count (test 280 K/cumm 140-440 N code = PLTCT) MPV (test code = MPV) 7.8 fL Diff Method (test code = Manual DIFFM) Neutrophil (test code = 71.0 % 36-70 H NEUT) Lymphocyte (test code = 18.0 % 12-44 N LYMPH) Monocyte (test code = 9.0 % 0-11 N MONO) Eosinophil (test code = 2.0 % 0-7 N EOS) Neutro Abs (test code = 5.8 K/cumm 1.6-7.4 N ANEUT) Lymph Abs (test code = 1.5 K/cumm 0.5-4.6 N ALYMPH) Toole Abs (test code = 0.7 K/cumm 0.0-1.2 N AMONO) Eos Abs (test code = 0.16 K/cumm 0.00-0.74 N AEOS) Baso Abs (test code = 0.0 K/cumm 0.00-0.21 N ABASO) RBC Morphology (test Normal code = RBCMRPH) Platelet Est (test code Normal Platelet on = PLTEST) Smear HIV [id number] 10:41:00 Test Item Value Reference Range Interpretation Comments HIV 1/2 Antibody Non-Reactive Non-Reactive N HIV1/2 Anti body screen (test code = result indicate s the HIV1/2AB) absence of HIV1 and [id number].H owever, A Non-Reactive screen result does not rule out exposure orinfection. If an acute infection is suspected, HIV RNA Quantitative is recommended. P24 Antigen (test Non-Reactive Non-Reactive N P24 Ag scr een result code = P24) indicates the a bsence of P24 antigen, which is anindicator of HIV-1 acute infection.Howev er, A Non-Reactive sc reen does not rule o ut exposure or infection.If ac kevon HIV-1 is suspec kody, HIV RNA Quantit ative is recommended. CBC with [id number] 09:29:00 Test Item Value Reference Range Interpretation Comments WBC (test code = WBC) 8.1 K/cumm 4.4-10.5 N RBC (test code = RBC) 4.35 M/cumm 3.75-5.20 N Hemoglobin (test code = 13.9 gm/dL 12.2-14.8 N HGB) Hematocrit (test code = 41.6 % 36.5-44.4 N HCT) MCV (test code = MCV) 95.7 fL 80-100 N MCH (test code = MCH) 31.9 pg 27.0-32.5 N MCHC (test code = MCHC) 33.4 g/dL 32.0-37.5 N RDW (test code = RDW) 12.7 % 11.5-14.5 N Platelet Count (test 332 K/cumm 140-440 N code = PLTCT) MPV (test code = MPV) 7.8 fL Diff Method (test code = Manual DIFFM) Neutrophil (test code = 76.0 % 36-70 H NEUT) Lymphocyte (test code = 19.0 % 12-44 N LYMPH) Monocyte (test code = 4.0 % 0-11 N MONO) Eosinophil (test code = 1.0 % 0-7 N EOS) Neutro Abs (test code = 6.2 K/cumm 1.6-7.4 N ANEUT) Lymph Abs (test code = 1.5 K/cumm 0.5-4.6 N ALYMPH) Toole Abs (test code = 0.3 K/cumm 0.0-1.2 N AMONO) Eos Abs (test code = 0.08 K/cumm 0.00-0.74 N AEOS) RBC Morphology (test Normal code = RBCMRPH) Platelet Est (test code Normal Platelet on = PLTEST) Smear RPR, [id number] 06:33:00 Test Item Value Reference Range Interpretation Comments RPR (test code = RPR) Non-Reactive Non-Reactive N BHCG, Serum, [id number] 06:03:00 Test Item Value Reference Range Interpretation Comments Preg Qual [Se] (test code = BSHCG) Negative Negative N Thyroid Stimulating Hormone (TSH)2017-04-08 23:52:00 Test Item Value Reference Range Interpretation Comments TSH (test code = TSH) 1.08 mIU/mL 0.270-4.200 N Lipid [id number] 23:52:00 Test Item Value Reference Range Interpretation Comments Cholesterol (test 238 mg/dL 0-200 H code = CHOL) Triglycerides (test 163 mg/dL 9-200 N code = TRIG) HDL (test code = 48 mg/dL 50-60 L HDL) Chol/HDL (test code 5.0 Ratio 0.0-4.4 H = CHOLPHDL) LDL, Calculated 157 0-130 H (NOTE)RISK O F HEART (test code = LDLC) DISEASEPu blished by Turkish Heart AssociationAnal yte Optimal Boderli ne Increased RiskC HOL <200 200-239 >240TRI G <150 150-199 >200HDL Male: >60 <40HDL Fema le: >60 <50LDL <100 130 -159 >160LDL NEAR OP TIMAL IS 100-129 VLDL (test code = 33 mg/dL 5-40 N VLDL) LDL/HDL (test code = 3 LDLPHDL) [id number] 23:03:00 Test Item Value Reference Range Interpretation Comments Amphetamine (test Negative Negative N For diagno stic code = AMPH) purposes only, positive result s should always b e assessedin conjunctionwith the patient's medic al history,clinica l examination and otherfindings.T o fulfill legal requirements, a more specific altern ate chemical method must be used inorder to obtain a Confirmed greyson lytical result. GC/MS i s the preferred confi rmatory method. Barbiturates (test Negative Negative N code = BLANCA) Benzodiazepine (test Negative Negative N code = BAKARI) Cocaine (test code = Negative Negative N COCA) Methadone (test code Negative Negative N = MTHD) Opiates (test code = Negative Negative N OPIA) PCP (test code = PCP) Negative Negative N Propoxyphene (test Negative Negative N code = PROPOX) THC (test code = THC) Negative Negative N Alcohol, Urine (test <0.01 g/dL 0.00-0.01 N code = ETOHU) Urinalysis [id number] 22:51:00 Test Item Value Reference Range Interpretation Comments Color (test code = COLOR) Yellow Yellow,Straw,Pl N yellow Clarity (test code = Clear Clear N CLAR) Specific [place] (test 1.002 1.001-1.035 N code = SPGR) pH (test code = PH) 6.5 5.0-9.0 N Ketone (test code = KET) Negative mg/dL Negative N Glucose (test code = Negative mg/dL Negative N GLUCUR) Protein (test code = Negative mg/dL Negative N PROT) Bilirubin (test code = Negative mg/dL Negative N BILI) Occult Blood (test code = Negative Negative N UDOB) Urobilinogen (test code = 0.2 mg/dL 0.2-1.0 N UROB) Nitrite (test code = NIT) Negative Negative N Leuk Esterase (test code Small Negative A = LEUK) Micros Exam (test code = Indicated MEXAM) Epithelial Cells (test 10-14 /LPF 0-30 A code = EPI) WBC, Urine (test code = 0-5 /HPF 0-5 N UWBC) RBC, Urine (test code = None Seen /HPF 0-5 A URBC) Bacteria (test code = Few /HPF BACT) Comprehensive Metabolic [id number] 18:02:00 Test Item Value Reference Range Interpretation Comments Sodium (test code = 138 mmol/L 135-145 N NA) Potassium (test 3.5 mmol/L 3.5-5.1 N code = K) Chloride (test code 100 mmol/L 98-105 N = CL) Carbon Dioxide 19 mmol/L 22-29 L (test code = CO2) Glucose (test code 104 mg/dL 70-115 N = GLU) Blood Urea Nitrogen 2 mg/dL 6-20 L (test code = BUN) Creatinine (test 0.7 mg/dL 0.5-0.9 N code = CREAT) Calcium (test code 10.2 mg/dL 8.3-10.5 N = CA) Prot Total (test 7.6 g/dL 6.4-8.3 N code = TP) Albumin (test code 4.5 g/dL 3.5-5.2 N = ALB) A/G Ratio (test 1.5 Ratio code = AGRATIO) Globulin (test code 3.1 2.9-3.1 N = GLOB) Bili Total (test 0.5 mg/dL 0.1-0.9 N code = TBIL) Alk Phos (test code 111 U/L 35-104 H = APHOS) AST (test code = 15 U/L 1-32 N AST) ALT (test code = 13 U/L 1-33 N ALT) BUN/Creatinine 2.9 Ratio (test code = BCRATIO) Anion Gap (test 19 mmol/L 7-16 H code = AGAP) Estimated GFR (test >60 eGFR (es timated code = GFR) mL/min/1.73m2 Glomerular Andrew tration Rate) is an est imated value,calculate d from the patient's s addison creatinine usin g the MDRD equation.I t is NOT the patient 's actual GFR. The eGFR provides a more clinicallyusefu l measure of kidn ey disease than se rum creatinine alone.This calculation emilee es sex and race into account, if the informationis provided. If th e race is not provided , and the patient isAfrican-Ameri can, multiply by 1.2 12. If sex is not prov ided, and thepatient is female, multipl y by 0.742. Results for patients <18 ye ars ofage have not been validated by th e MDRD study and shoul d be interpretedwith caution.eGFR Re sult Interpretation: eGFR > or = 60 is in t he Normal RangeeGF R < 60 may mean kidney diseaseeGFR < 1 5 may mean kidney failureRange s recommended by the National Kidney Foundation,http ://nkd ep.nih.gov CBC with [id number] 17:56:00 Test Item Value Reference Range Interpretation Comments WBC (test code = WBC) 17.2 K/cumm 4.4-10.5 H RBC (test code = RBC) 4.91 M/cumm 3.75-5.20 N Hemoglobin (test code = 15.6 gm/dL 12.2-14.8 H HGB) Hematocrit (test code = 44.0 % 36.5-44.4 N HCT) MCV (test code = MCV) 89.5 fL 80-100 N MCH (test code = MCH) 31.8 pg 27.0-32.5 N MCHC (test code = MCHC) 35.5 g/dL 32.0-37.5 N RDW (test code = RDW) 12.6 % 11.5-14.5 N Platelet Count (test 432 K/cumm 140-440 N code = PLTCT) MPV (test code = MPV) 10.5 fL Diff Method (test code Manual = DIFFM) Neutrophil (test code = 86.0 % 36-70 H NEUT) Bands (test code = 1.0 % 0-6 N BAND) Lymphocyte (test code = 7.0 % 12-44 L LYMPH) Monocyte (test code = 6.0 % 0-11 N MONO) Neutro Abs (test code = 15.0 K/cumm 1.6-7.4 H ANEUT) Lymph Abs (test code = 1.2 K/cumm 0.5-4.6 N ALYMPH) Toole Abs (test code = 1.0 K/cumm 0.0-1.2 N AMONO) RBC Morphology (test Normal code = RBCMRPH) Platelet Est (test code Adequate Platelets on = PLTEST) Smear RPR, [id number] 10:59:00 Test Item Value Reference Range Interpretation Comments RPR (test code = RPR) Non-Reactive Non-Reactive N Thyroid Stimulating Hormone (TSH)2017-03-25 07:13:00 Test Item Value Reference Range Interpretation Comments TSH (test code = TSH) 1.47 mIU/mL 0.270-4.200 N Lipid [id number] 07:05:00 Test Item Value Reference Range Interpretation Comments Cholesterol (test 207 mg/dL 0-200 H code = CHOL) Triglycerides (test 108 mg/dL 9-200 N code = TRIG) HDL (test code = 56 mg/dL 50-60 N HDL) Chol/HDL (test code 3.7 Ratio 0.0-4.4 N = CHOLPHDL) LDL, Calculated 129 0-130 N (NOTE)RISK O F HEART (test code = LDLC) DISEASEPu blished by Turkish Heart AssociationAnal yte Optimal Boderli ne Increased RiskC HOL <200 200-239 >240TRI G <150 150-199 >200HDL Male: >60 <40HDL Fem keanu: >60 <50LDL < 100 130-159 >160LDL NEAR OPTIMAL IS 100- 129 VLDL (test code = 22 mg/dL 5-40 N VLDL) LDL/HDL (test code = 2 LDLPHDL) BHCG, Serum, [id number] 06:56:00 Test Item Value Reference Range Interpretation Comments Preg Qual [Se] (test code = BSHCG) Negative Negative N CBC with [id number] 22:32:00 Test Item Value Reference Range Interpretation Comments WBC (test code = WBC) 16.0 K/cumm 4.4-10.5 H RBC (test code = RBC) 4.64 M/cumm 3.75-5.20 N Hemoglobin (test code 14.9 gm/dL 12.2-14.8 H = HGB) Hematocrit (test code 44.1 % 36.5-44.4 N = HCT) MCV (test code = MCV) 95.1 fL 80-100 N MCH (test code = MCH) 32.1 pg 27.0-32.5 N MCHC (test code = 33.7 g/dL 32.0-37.5 N MCHC) RDW (test code = RDW) 12.4 % 11.5-14.5 N Platelet Count (test 317 K/cumm 140-440 N code = PLTCT) MPV (test code = MPV) 8.9 fL Diff Method (test code Manual = DIFFM) Neutrophil (test code 80.0 % 36-70 H = NEUT) Lymphocyte (test code 12.0 % 12-44 N = LYMPH) Monocyte (test code = 4.0 % 0-11 N MONO) Eosinophil (test code 3.0 % 0-7 N = EOS) Basophil (test code = 1.0 % 0-2 N BASO) Neutro Abs (test code 12.8 K/cumm 1.6-7.4 H = ANEUT) Lymph Abs (test code = 1.9 K/cumm 0.5-4.6 N ALYMPH) Toole Abs (test code = 0.6 K/cumm 0.0-1.2 N AMONO) Eos Abs (test code = 0.48 K/cumm 0.00-0.74 N AEOS) Baso Abs (test code = 0.2 K/cumm 0.00-0.21 N ABASO) RBC Morphology (test Slight Anisocytosis ; code = RBCMRPH) Platelet Est (test Adequate Platelets on code = PLTEST) Smear Comprehensive Metabolic [id number] 21:42:00 Test Item Value Reference Range Interpretation Comments Sodium (test code = 136 mmol/L 135-145 N NA) Potassium (test 3.7 mmol/L 3.5-5.1 N code = K) Chloride (test code 99 mmol/L 98-105 N = CL) Carbon Dioxide 21 mmol/L 22-29 L (test code = CO2) Glucose (test code 108 mg/dL 70-115 N = GLU) Blood Urea Nitrogen 7 mg/dL 6-20 N (test code = BUN) Creatinine (test 1.0 mg/dL 0.5-0.9 H code = CREAT) Calcium (test code 10.3 mg/dL 8.3-10.5 N = CA) Prot Total (test 7.5 g/dL 6.4-8.3 N code = TP) Albumin (test code 4.1 g/dL 3.5-5.2 N = ALB) A/G Ratio (test 1.2 Ratio code = AGRATIO) Globulin (test code 3.4 2.9-3.1 H = GLOB) Bili Total (test 0.6 mg/dL 0.1-0.9 N code = TBIL) Alk Phos (test code 106 U/L 35-104 H = APHOS) AST (test code = 28 U/L 1-32 N AST) ALT (test code = 16 U/L 1-33 N ALT) BUN/Creatinine 7.0 Ratio (test code = BCRATIO) Anion Gap (test 16 mmol/L 7-16 N code = AGAP) Estimated GFR (test >60 eGFR (es timated code = GFR) mL/min/1.73m2 Glomerular Andrew tration Rate) is an est imated value,calculate d from the patient's s addison creatinine usin g the MDRD equation.I t is NOT the patient 's actual GFR. The eGFR provides a more clinicallyusefu l measure of kidn ey disease than se rum creatinine alone.This calculation emilee es sex and race into account, if the informationis provided. If th e race is not provided , and the patient isAfrican-Ameri can, multiply by 1.2 12. If sex is not prov ided, and thepatient is female, multipl y by 0.742. Results for patients <18 ye ars ofage have not been validated by th e MDRD study and shoul d be interpretedwith caution.eGFR Re sult Interpretation: eGFR > or = 60 is in t he Normal RangeeGF R < 60 may mean kidney diseaseeGFR < 1 5 may mean kidney failureRange s recommended by the National Kidney Foundation,http ://nkd ep.nih.gov CT abdomen pelvis w contrast [facility] [address] [place] [address] Patient Name: Liana Ashby Medical Record#: [id number] Address: [address] [place] [address] City/State/Zip: [place] [address]: Nolan Rosario MD Insurance: Medicare A B /Age/Sex: 1975/46/F Self Pay Admit/Reg Date: 01/08/[address]: Dallas Rosario MD Location: MED/ PCP: Pcp-Md GABBY Hoyos Date of Service: 01/08/22 Order (s): CT abdomen pelvis w contrast CPT Code: 40602 Report Number: [id number] Reason for Exam: bilateral lower abd pain, n/v EXAM: CT ABDOMEN PELVIS WITH IV CONTRAST HISTORY: Abdominal pain. TECHNIQUE: Axial tomograms through the abdomen and pelvis were obtained after intravenous contrast. Coronal and sagittal reformatted images are provided. This exam was performed according to our departmental dose- optimization program, which includes automated exposure control, adjustment of the mA and/or kV according to patient size and/or use of iterative reconstruction technique. COMPARISON: September 11, 2021. FINDINGS: The visualized lung bases are clear. Status post gastric surgery and cholecystectomy. There is no fluid collection appreciated. The liver, spleen, pancreas, adrenal glands and kidneys demonstrate no significant abnormalities. The appendix has a normal appearance. The bowel is unremarkable. There is no adenopathy or free fluid. No acute osseous abnormality. There is calcified plaque involving the abdominal a gabriel and it's major branching vessels. There is no significant change compared to exam. IMPRESSION: No significant abnormalities demonstrated. Electronically signed by: Cheko Castellon MD 01/08/2022 3:38AM CDT Dictated By: Cheko Castellon MD 01/08/22314 Signed By: Cheko Castellon MD 01/08/22339 TD/TT: 01/08/22314 Tech: [id number] cc: ANDRZEJNO; SKECH* Nolan Rosario MD; Pcp-Md Soha MDCT abdomen pelvis w con [facility] [address] [place] [address] Patient Name: Liana Ashby Medical Record#: [id number] Address: [address] [place] [address] City/State/Zip: [place] [address]: Griffin Wills MD Insurance: Medicare A B /Age/Sex: 1975/46/F Self Pay Admit/Reg Date: 09/10/[address]: Josette Horton NPLocation: [facility]/ PCP: Pcp-Md GABBY Hoyos Date of Service: 09/10/21 Order (s): CT abdomen pelvis w con CPT Code: 33816 Report Number: [id number] Reason for Exam: rule out leak Exam: CT abdomen and pelvis with contrast. Location: H 12 History: rule out leak Technique: Enhanced spiral slices were taken from the domes of the diaphragm, through the pubic symphysis. Coronal reformations were performed. One or more of the following dose reduction techniques were used: Automated exposure control, adjustment of the mA and/or kV according to patient size, and/or utilization of iterative reconstruction technique. Findings: The liver is of normal, homogeneous density. No mass is seen. The intra-and extrahepatic biliary tree is normal. The hepatic and portal veins are patent. The gallbladder has been removed. The pancreas is normal. The pancreatic duct is normal in caliber. The spleen and adrenal glands arenormal in size and shape. The kidneys are unremarkable. No perinephric fluid collections or hydronephrosis is seen. The large and small intestine are normal in caliber with scattered diverticula in thecolon. The appendix is normal. Previous bariatric surgery is noted. No lymphadenopathy is found in the abdomen or the pelvis. No free fluid is seen. No extravasation of contrast material is seen. The pelvic structures are unremarkable. The lung bases are clear. No incidental findings are noted. Impression: 1. No acute abdominal findings. 2. Status post cholecystectomy. 3. Status post previous bariatric surgery. 4. Diverticulosis coli. Electronically signed by: Mario Mcgrath MD 09/11/2021 1:56 [facility] Dictated By: Mario Mcgrath MD 09/11/21 014 Signed By: Mario Mcgrath MD 09/11/21 0159 TD/TT: 09/11/21146 Tech: [id number] cc: [email or web address]; PCPNO* Josette Horton NP; Pcp-Md GABBY HoyosEKG ED Electrocardiogram [facility] [address] [place] [address] Patient Name: Liana Ashby Medical Record#: [id number] Address: [address] [place] [address] City/State/Zip: [place] [address]: Griffin Wills MD Insurance: Medicare A B /Age/Sex: 1975/46/F Self Pay Admit/Reg Date: 06/22/[address]: Sina Arias Location: [facility]/ PCP: Pcp-Md GABBY Hoyos Date of Service: 06/22/21 Order (s): EKG ED Electrocardiogram CPT Code: 64187 Report Number: [id number] Reason for Exam: tachycardia Sinus tachycardia Probable left atrial enlargement Borderline left axis deviation Consider anterior infarct ST elevation, consider inferior injury Summary: Abnormal ECG Dictated By: Arden Tierney MD 06/22/211827 Signed By: Arden Tierney MD 06/27/21 1204 TD/TT: 06/22/211827 Tech: [facility] cc: JUAN; PCPNO* Brigida Sanchez, ATTILA; Pcp-Md Soha MDCT abdomen pelvis w con [facility] [address] [place] [address] Patient Name: Liana Ashby Medical Record#: [id number] Address: [address] [place] [address] City/State/Zip: [place] [address]: Griffin Wills MD Insurance: Medicare A B /Age/Sex: 1975/46/F Self Pay Admit/Reg Date: 06/22/[address]: Brigida Hernandez ck, N P Location: [facility]/ PCP: Pcp-Md GABBY Hoyos Date of Service: 06/22/21 Order (s): CT abdomen pelvis w con CPT Code: 03785 Report Number: [id number] Reason for Exam: abdominal pain EXAM: CT ABDOMEN PELVIS WITH IV CONTRAST LOCATION: H57 HISTORY: 46 years-year old Female with abdominal pain TECHNIQUE: IV contrast was given, no oral contrast was given. Portal venous phase - abdomen. No delayed phase images were obtained.. Reconstructions - coronal and sagittal planes. Automated exposure reduction (Auto mA/Smart mA) was utilized in compliance with ACR [employer]. COMPARISON: None FINDINGS: Hepatobiliary: The liver is normal without focal lesion. Status post cholecystectomy. No biliary dilation. Pancreas: Normal. Spleen: Normal. Adrenals: Normal. Genitourinary: The kidneys are normal. No hydronephrosis. The bladder is incompletely distended, limiting evaluation. Unremarkable uterus. Gastroi ntestinal: Postsurgical changes are seen at the esophagogastric junction and in the small bowel withanastomotic sutures seen. No bowel obstruction or perienteric inflammation. The appendix is normal. Lymphatics: No enlarged lymph nodes by CT size criteria. Vascular: Atherosclerotic calcifications areseen within the aorta and branch vessels. No evidence of aneurysm or dissection. Bones/Soft Tissues:No acute osseous findings. No ventral hernias. Peritoneum/Other: No free air. No free fluid. Thoracic: Included images of the lower chest demonstrate no abnormalities. IMPRESSION: 1) No acute findings in the abdomen/pelvis. Electronically signed by: Too Olmedo MD 06/22/2021 10:12 PM [facility] Dictated By: Too Olmedo MD 06/22/212142 Signed By: Too Olmedo MD 06/22/212142 TD/TT: 06/22/212142 Tech: [id number] cc: JUAN; PCPNO* Brigida Sanchez NP; Pcp-None,Md PIERRE
[2022-01-30] MEDS ORDERED: MORPHINE 4 MG/ML SYR ONE ×2 (02:57→04:28)
[2022-01-30] MEDS ORDERED: NA CHLORIDE 0.9% 1,000 ML ONE (02:57)
[2022-01-30] MEDS ORDERED: ONDANSETRON 4 MG/2 ML VIAL ONE (02:57)
[2022-01-30 03:03] LABS: Hematocrit 35.6 % (36.0-45.0); Lymphocytes % 26.7 % (15.3-44.8); MCV 81.8 fL (80-100); MPV 8.8 fL (7.6-11.3); RBC Red Blood Cell Count 4.35 M/uL (3.86-4.86)
[2022-01-30 03:17] LABS: Albumin 3.3 g/dL (3.4-5.0); Bilirubin Total 0.3 mg/dL (0.2-1.0); Potassium 3.8 mmol/L (3.5-5.1); Protein, Total 7.5 g/dL (6.4-8.2)
[2022-01-30 03:57] LABS: Urine Blood 1+ (Negative); Urine Glucose Negative (Negative); Urine Protein Negative (Negative); Urine pH 6.5 (5.0-7.0)
[2022-01-30] MEDS ORDERED: MAGNES/ALUMIN/SIMET 30ML UCUP ONE (06:51)
[2022-01-30] MEDS ORDERED: HYDROCODONE/APAP 10/325 TAB ONE (06:52)
[2022-01-30] MEDS ORDERED: DICYCLOMINE HCL 10 MG CAP ONE (06:52)
[2022-01-30] MEDS ORDERED: LIDOCAINE VISCOUS 2% SOLN 15 ML UDC ONE (06:52)
--- NOTE | 2022-01-30 07:21 | ER ---
Nurse's Notes [facility] Name: Ana Ashby Age: 47 yrs Sex: Female : 1975 Arrival Date: 01/30/2022 Time: 00:40 Bed 17 Private MD: Diagnosis: Abdominal pain, Generalized Presentation: 01/30 01:00 Chief complaint: Patient states: mid abdominal pain and right shoulder blade pain since kl 2 pm yesterday emesis x 7 diarrhea x 2. Coronavirus screen: Vaccine status: Patient reports receiving the 2nd dose of the covid vaccine. Ebola Screen: Patient negative for fever greater than or equal to 101.5 degrees Fahrenheit, and additional compatible Ebola Virus Disease symptoms. Initial Sepsis Screen: Does the patient meet any 2 criteria? No. Patient's initial sepsis screen is negative. Does the patient have a suspected source of infection? No. Patient's initial sepsis screen is negative. Risk Assessment: Do you want to hurt yourself or someone else? Patient reports no desire to harm self or others. Onset of symptoms was January 29, 2022 at 14:00. 01:00 Method Of Arrival: Ambulatory 01:00 Acuity: STALIN 3 kl Triage Assessment: 01:06 General: Appears uncomfortable, Behavior is calm, cooperative. Pain: Complains of pain kl in umbilical area and right upper quadrant Pain currently is 9 out of 10 on a pain scale. GI: Reports diarrhea, vomiting. Historical: - Allergies: 01:03 Toradol; kl 01:03 NSAIDS; kl - Home Meds: 01:03 Lisinopril Oral [Active]; Latuda oral [Active]; Wellbutrin Oral [Active]; Depakote Oral kl [Active]; Klonopin Oral [Active]; - PMHx: 01:03 Anxiety; Depressive disorder; Hypertensive disorder; kl - PSHx: 01:03 gastric bypass; bypass reversal; bowel obstruction; kl - Immunization history:: Adult Immunizations up to date. - Social history:: Smoking status: Patient reports the use of cigarette tobacco products, smokes one-half pack cigarettes per day. Screenin:31 Abuse screen: Denies threats or abuse. Nutritional screening: No deficits noted. ja4 Tuberculosis screening: No symptoms or risk factors identified. Fall Risk Assessment: 02:31 General: Appears uncomfortable, obese, Behavior is calm, cooperative, appropriate for [facility] age. Pain: Complains of pain in abdomen Pain currently is 8 out of 10 on a pain scale. Is continuous, lasting more than 1 hour. Neuro: No deficits noted. GI: Abd is soft Abdomen is tender to palpation Reports lower abdominal pain, diarrhea, intolerance of fluids, intolerance of food. Vital Signs: 01:00 BP 119 / 84; Pulse 102; Resp 18; Temp 98.7; Pulse Ox 99% ; Weight 113.4 kg (R); Height kl 5 ft. 3 in. (160.02 cm); Pain 9/10; 06:29 BP 102 / 51; Pulse 106; Resp 14; Pulse Ox 94% on R/A; Pain 8/10; ja4 01:00 Body Mass Index 44.29 (113.40 kg, 160.02 cm) ED Course: 00:40 Patient arrived in ED. bp1 01:03 Triage completed. kl 01:43 Ha Ornelas MD is Attending Physician. kdr 02:31 Raymond Duarte RN is Primary Nurse. ja4 02:31 Bed in low position. Call light in reach. Side rails up X 1. ja4 02:31 Inserted saline lock: 22 gauge in left hand, using aseptic technique. ja4 04:28 CT Abd/Pelvis - IV Contrast Only In Process Unspecified. EDMS 07:48 Arm band placed on right wrist. jl7 07:48 No provider procedures requiring assistance completed. IV discontinued, intact, jl7 bleeding controlled, No redness/swelling at site. Pressure dressing applied. Administered Medications: 02:52 Drug: morphine 4 mg Route: IVP; Infused Over: 4 mins; Site: left hand; ja4 02:53 Drug: NS 0.9% 1000 ml Route: IV; Rate: 1 bolus; Site: left hand; ja4 02:53 Drug: Zofran (Ondansetron) 4 mg Route: IVP; Site: left hand; ja4 04:22 Drug: morphine 4 mg Route: IVP; Infused Over: 4 mins; Site: left hand; ja4 06:59 Drug: [place] (HYDROcodone-acetaminophen) 10 mg-325 mg 1 tabs Route: PO; ja4 06:59 Drug: Bentyl (dicyclomine) 20 mg Route: PO; ja4 06:59 Not Given (Patient Refused): GI Cocktail without - (Maalox Suspension 30 ml, ja4 Lidocaine Liquid 2 % 15 ml) PO once Medication: 02:31 VIS not applicable for this client. ja4 Outcome: 07:21 Discharge ordered by . edwin 07:48 Discharged to home ambulatory. pradip 07:48 Condition: stable 07:48 Discharge instructions given to patient, Instructed on discharge instructions, follow up and referral plans. Demonstrated understanding of instructions, follow-up care. 07:48 Patient left the ED. jl7 Signatures: Dispatcher [employer] EDDelphine Dempsey, RN RN Ha Toussaint MD MD kdr Leal, Jahala, RN RN dipak7 Viji Avalos Jeremy, RN RN ja4 Corrections: (The following items were deleted from the chart) 01:06 01:03 Allergies: No Known Allergies; kl kl 01:06 01:03 PSHx: atomach perf; kl bhavesh
--- NOTE | 2022-01-30 07:22 | EDPHYS ---
Physician Documentation [facility] Name: Ana Ashby Age: 47 yrs Sex: Female : 1975 Arrival Date: 01/30/2022 Time: 00:40 Bed 17 Private MD: ED Physician Ha Ornelas HPI: 01/30 22:21 This 47 yrs old Female presents to ER via Ambulatory with complaints of Abdominal Pain, kdr Nausea/Vomiting/Diarrhea. 22:21 Patient complains of abdominal pain and right shoulder pain. This started at 2 PM kdr yesterday. She is also vomited 7 times and had diarrhea twice. He has not had this before. Patient is nontoxic-appearing.. Onset: The symptoms/episode began/occurred at 14:00. Severity of symptoms: At their worst the symptoms were mild moderate. The patient has experienced similar episodes in the past, a few times. The patient has not recently seen a physician. Historical: - Allergies: 01:03 Toradol; kl 01:03 NSAIDS; kl - Home Meds: 01:03 Lisinopril Oral [Active]; Latuda oral [Active]; Wellbutrin Oral [Active]; Depakote Oral kl [Active]; Klonopin Oral [Active]; - PMHx: 01:03 Anxiety; Depressive disorder; Hypertensive disorder; kl - PSHx: 01:03 gastric bypass; bypass reversal; bowel obstruction; kl - Immunization history:: Adult Immunizations up to date. - Social history:: Smoking status: Patient reports the use of cigarette tobacco products, smokes one-half pack cigarettes per day. ROS: 22:21 Constitutional: Negative for fever, chills, and weight loss, Eyes: Negative for injury, kdr pain, redness, and discharge, Neck: Negative for injury, pain, and swelling, Cardiovascular: Negative for chest pain, palpitations, and edema, Respiratory: Negative for shortness of breath, cough, wheezing, and pleuritic chest pain, Back: Negative for injury and pain, : Negative for injury, bleeding, discharge, and swelling, MS/Extremity: Negative for injury and deformity, Skin: Negative for injury, rash, and discoloration, Neuro: Negative for headache, weakness, numbness, tingling, and seizure activity. Psych: Negative for depression, anxiety, suicide ideation, homicidal ideation, and hallucinations, Allergy/Immunology: Negative for hives, rash, and allergies, Endocrine: Negative for neck swelling, polydipsia, polyuria, polyphagia, and marked weight changes, Hematologic/Lymphatic: Negative for swollen nodes, abnormal bleeding, and unusual bruising. 22:21 Abdomen/GI: Positive for abdominal pain, nausea, vomiting, and diarrhea, nausea. Exam: 22:21 Constitutional: This is a well developed, well nourished patient who is awake, alert, kdr and in no acute distress. Head/Face: Normocephalic, atraumatic. Eyes: Pupils equal round and reactive to light, extra-ocular motions intact. Lids and lashes normal. Conjunctiva and sclera are non-icteric and not injected. Cornea within normal limits. Periorbital areas with no swelling, redness, or edema. Neck: Trachea midline, no thyromegaly or masses palpated, and no cervical lymphadenopathy. Supple, full range of motion without nuchal rigidity, or vertebral point tenderness. No Meningismus. Chest/axilla: Normal chest wall appearance and motion. Nontender with no deformity. No lesions are appreciated. Cardiovascular: Regular rate and rhythm with a normal S1 and S2. No gallops, murmurs, or rubs. Normal PMI, no JVD. No pulse deficits. Respiratory: Lungs have equal breath sounds bilaterally, clear to auscultation and percussion. No rales, rhonchi or wheezes noted. No increased work of breathing, no retractions or nasal flaring. Back: No spinal tenderness. No costovertebral tenderness. Full range of motion. Skin: Warm, dry with normal turgor. Normal color with no rashes, no lesions, and no evidence of cellulitis. MS/ Extremity: Pulses equal, no cyanosis. Neurovascular intact. Full, normal range of motion. Neuro: Awake and alert, GCS 15, oriented to person, place, time, and situation. Cranial nerves II-XII grossly intact. Motor strength 5/5 in all extremities. Sensory grossly intact. Cerebellar exam normal. Normal gait. 22:21 Abdomen/GI: Inspection: abdomen appears normal, Bowel sounds: active, Palpation: soft, mild abdominal tenderness, in the right upper quadrant and left upper quadrant. Vital Signs: 01:00 BP 119 / 84; Pulse 102; Resp 18; Temp 98.7; Pulse Ox 99% ; Weight 113.4 kg (R); Height kl 5 ft. 3 in. (160.02 cm); Pain 9/10; 06:29 BP 102 / 51; Pulse 106; Resp 14; Pulse Ox 94% on R/A; Pain 8/10; ja4 01:00 Body Mass Index 44.29 (113.40 kg, 160.02 cm) kl MDM: 06:58 Patient medically screened. kdr 22:21 Data reviewed: vital signs, nurses notes, lab test result(s), radiologic studies. kdr Counseling: I had a detailed discussion with the patient and/or guardian regarding: the historical points, exam findings, and any diagnostic results supporting the discharge/admit diagnosis, lab results, radiology results, the need for outpatient follow up. 01/30 02:36 Order name: CBC with Diff; Complete Time: 04:22 kdr 01/30 02:36 Order name: CMP; Complete Time: 04:22 kdr 01/30 02:36 Order name: Lipase; Complete Time: 04:22 kdr 01/30 03:57 Order name: Urine Dipstick-Ancillary; Complete Time: 04:22 EDNH 01/30 04:01 Order name: Urine --Ancillary (enter results); Complete Time: 06:03 ja4 01/30 06:34 Order name: Troponin High Sensitivity; Complete Time: 07:11 ja4 01/30 02:36 Order name: CT Abd/Pelvis - IV Contrast Only kdr 01/30 02:36 Order name: IV Saline Lock; Complete Time: 02:53 kdr 01/30 02:36 Order name: Labs collected and sent; Complete Time: 07:04 [facility] 01/30 06:36 Order name: EKG - Nurse/Tech; Complete Time: 06:59 kdr Administered Medications: 02:52 Drug: morphine 4 mg Route: IVP; Infused Over: 4 mins; Site: left hand; ja4 02:53 Drug: NS 0.9% 1000 ml Route: IV; Rate: 1 bolus; Site: left hand; ja4 02:53 Drug: Zofran (Ondansetron) 4 mg Route: IVP; Site: left hand; ja4 04:22 Drug: morphine 4 mg Route: IVP; Infused Over: 4 mins; Site: left hand; ja4 06:59 Drug: [place] (HYDROcodone-acetaminophen) 10 mg-325 mg 1 tabs Route: PO; ja4 06:59 Drug: Bentyl (dicyclomine) 20 mg Route: PO; ja4 06:59 Not Given (Patient Refused): GI Cocktail without - (Maalox Suspension 30 ml, ja4 Lidocaine Liquid 2 % 15 ml) PO once Disposition Summary: 01/30/22 07:21 Discharge Ordered Location: Home kdr Problem: an acute exacerbation kdr Symptoms: have improved kdr Condition: Stable kdr Diagnosis - Abdominal pain, Generalized kdr Followup: kdr - With: Private Physician - When: 2 - 3 days - Reason: If symptoms return, Further diagnostic work-up, Recheck today's complaints, Continuance of care, Re-evaluation by your physician Discharge Instructions: - Discharge Summary Sheet kdr - Abdominal Pain, Adult, [id number] kdr Forms: - Medication Reconciliation Form kdr - Thank You Letter kdr - Prescription Opioid Use kdr Prescriptions: - Pepcid 20 mg Oral Tablet - take 1 tablet by ORAL route once daily for 10 days; 10 tablet; Refills: 0, kdr Product Selection Permitted - Tylenol-Codeine #3 300 mg-30 mg Oral - take 2 tablet by ORAL route every 4-6 hours As needed; 12 tablet; Refills: 0, kdr Product Selection Permitted - Zofran 4 mg Oral Tablet - take 1 tablet by ORAL route every 4-6 hours As needed; 12 tablet; Refills: 0, kdr Product Selection Permitted Signatures: Dispatcher [employer] Delphine Ferraro RN RN kl Rittger, Kevin, MD MD kdr Allen, Jeremy, RN RN ja4 Corrections: (The following items were deleted from the chart) 01:06 01:03 Allergies: No Known Allergies; kl kl 01:06 01:03 PSHx: atomach perf; kl kl 06:37 06:36 EKG - Nurse/Tech ordered. davida ja4
--- NOTE | 2022-01-30 10:44 | RAD REPORT ---
EXAM DESCRIPTION: CT - Abdomen Pelvis W Contrast - 01/30/2022 6:47 am CLINICAL HISTORY: Abdominal pain, acute, nonlocalized COMPARISON: None. TECHNIQUE: CT ABDOMEN PELVIS WITH IV CONTRAST on 01/30/2022 2:36 AM CDT This exam was performed according to our departmental dose-optimization program, which includes autom ated exposure control, adjustment of the mA and/or kV according to patient size and/or use of iterati ve reconstruction technique. FINDINGS: Lower lungs are clear. Abdomen: Liver is fatty in attenuation. There is no biliary dilatation. Cholecystectomy was performed . There are postoperative changes of the upper stomach. The pancreas and spleen are normal in appeara nce. Adrenal glands are normal. Kidneys are moderately atrophic. 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 Abdominal aorta is normal in course and caliber without aneurysm. There is no free air. There is no r etroperitoneal adenopathy. Pelvis: There is no bowel obstruction. There is contrast in the urinary bladder. There is no free flu id. Uterus is normal in size. Appendix is normal. Skeleton: There are no acute osseous findings. No suspicious bony lesions. IMPRESSION: No definite acute process. Electronically signed by: Edouard Quesada MD 01/30/2022 5:19 AM CDT Due to temporary technical issues with the PACS/Fluency reporting system, reports are being signed by the in house radiologists without review as a courtesy to insure prompt reporting. The interpreting radiologist is fully responsible for the content of the report.
[2022-01-30 21:35] VITALS: TEMP 98.7
[2022-01-30 21:44] VITALS: BP 102/51; O2SAT 94
== END 2022-01-30 07:48 | disposition home or self-care (01) ==
LOC: ER 00:35
DX: R10.84 Generalized abdominal pain (principal); R11.2 Nausea with vomiting, unspecified; F17.210 Nicotine dependence, cigarettes, uncomplicated; F32.A Depression, unspecified; I10 Essential (primary) hypertension; Z88.5 Allergy status to narcotic agent; Z88.6 Allergy status to analgesic agent
CPT/HCPCS: 85025; 36415; 81025; 81003; 84484; 83690; 80053; 74177; 96375; 96374; 99283; Q9967; J7030; J2405; 93005

== ENCOUNTER 2024-03-23 21:29 | Emergency (ER) | payer OTHER ==
[2024-03-23] MEDS ORDERED: NA CHLORIDE 0.9% 1,000 ML ONE (22:31)
[2024-03-23] MEDS ORDERED: ONDANSETRON 4 MG/2 ML VIAL ONE (22:31)
[2024-03-23] MEDS ORDERED: MORPHINE 4 MG/ML SYR ONE (22:31)
[2024-03-23 22:53] LABS: Absolute Basophils 0.1 K/uL (0-0.5); Absolute Eosinophils 0.5 K/uL (0-0.5); Absolute Lymphocytes (CBC) 2.3 K/uL (0.7-4.9); Absolute Neutrophil 6.3 K/uL (1.8-8.0); Basophils % 0.6 % (0-1.3); Eosinophils % 4.8 % (0-4.4); Hematocrit 32.9 % (36.0-45.0); Hemoglobin 10.5 g/dL (12.0-15.0); Lymphocytes % 22.9 % (15.3-44.8); MCH 24.1 pg (27.0-35.0); MCHC 31.8 g/dL (32.0-36.0); MCV 75.8 fL (80-100); MPV 8.7 fL (7.6-11.3); Monocytes % 9.7 % (3.3-12.3); Nucleated Red Blood Cells % 0.1 % (0-0); Platelets 314 thou/uL (152-406); RBC Red Blood Cell Count 4.34 M/uL (3.86-4.86); Red Cell Distribution Width 18.5 % (12.1-15.2)
[2024-03-23 23:00] LABS: Renal Epithelial <5 /HPF (None Seen); Specific Gravity 1.006 (1.005-1.030); Urine Bacteria <20 /HPF (<20); Urine Bilirubin NEGATIVE (Negative); Urine Blood 1+ (Negative); Urine Clarity Extremely Turbid (Clear); Urine Color Colorless (Yellow); Urine Culture Reflex Order REFLEXED; Urine Glucose NEGATIVE (Negative); Urine Ketones NEGATIVE (Negative); Urine Microscopic Reflex YN ORDER UMIC; Urine Mucus Slight /HPF (None Seen); Urine Nitrite 2+ (Negative); Urine Protein NEGATIVE (Negative); Urine Urobilinogen Normal (Normal); Urine WBC 20-50 /HPF (<5); Urine pH 5.5 (5.0-7.0)
[2024-03-23 23:17] LABS: Albumin 3.5 g/dL (3.4-5.0); Albumin/Globulin Ratio 0.8 (1.1-1.8); Anion Gap 8.7 mEq/L (5.0-15.0); Bilirubin Total 0.2 mg/dL (0.2-1.0); Globulin 4.3 g/dL (2.3-3.5); Potassium 3.7 mEq/L (3.5-5.1); Protein, Total 7.8 g/dL (6.4-8.2)
[2024-03-24] MEDS ORDERED: MORPHINE 4 MG/ML SYR ONE (00:03)
--- NOTE | 2024-03-24 02:01 | ER ---
Nurse's Notes [facility] Name: Ana Ashby Age: 49 yrs Sex: Female : 1975 Arrival Date: 03/23/2024 Time: 21:29 Bed 7 Private MD: Diagnosis: Abdominal pain, Generalized;Acute Abdominal Pain associated with previos abdominal surgery , Acute Mid Abdominal pain Presentation: 03/23 21:35 Chief complaint: Patient states: abdominal pain , had bowel abstraction surgery two ha1 month ago. 21:35 Coronavirus screen: Vaccine status: Patient reports receiving the 2nd dose of the covid ha1 vaccine. CosmosID. Ebola Screen: No symptoms or risks identified at this time. Initial Sepsis Screen: Does the patient meet any 2 criteria? No. Patient's initial sepsis screen is negative. Does the patient have a suspected source of infection? No. Patient's initial sepsis screen is negative. Risk Assessment: Do you want to hurt yourself or someone else? Patient reports no desire to harm self or others. Onset of symptoms was March 23, 2024. 21:35 Method Of Arrival: Ambulatory ha1 21:35 Acuity: STALIN 3 ha1 MANAGER PARKING: 03/24 02:11 unknown bm8 Historical: - Allergies: 03/23 22:11 NSAIDS; ha1 22:11 Toradol; ha1 - Home Meds: 22:11 Depakote Oral [Active]; lisinopril Oral [Active]; ha1 - PMHx: 22:11 Anxiety; depressive disorder; Hypertensive disorder; ha1 - PSHx: 22:11 bowel obstruction; bypass reversal; Gastric Bypass; ha1 - Immunization history:: Adult Immunizations up to date. - Infectious Disease History:: Denies. - Social history:: Smoking status: Patient reports the use of cigarette tobacco products, smokes one-half pack cigarettes per day. Screenin:12 [facility] ED Fall Risk Assessment (Adult) History of falling in the last 3 months, ha1 including since admission No falls in past 3 months (0 pts) Confusion or Disorientation No (0 pts) Intoxicated or Sedated No (0 pts) Impaired Gait No (0 pts) Mobility Assist Device Used No (0 pt) Altered Elimination No (0 pt) Score/Fall Risk Level 0 - 2 = Low Risk Oriented to surroundings, Maintained a safe environment, Hourly rounding (assess needs \\T\\ fall precautionary measures) done. Abuse screen: Denies threats or abuse. Denies injuries from another. Nutritional screening: No deficits noted. Tuberculosis screening: No symptoms or risk factors identified. Assessment: 22:36 Reassessment: Patient appears in no apparent distress at this time. Patient and/or bm8 family updated on plan of care and expected duration. Pain level reassessed. Patient is alert, oriented x 3, equal unlabored respirations, skin warm/dry/pink. General: Appears in no apparent distress. comfortable, Behavior is calm, cooperative, appropriate for age. Pain: Complains of pain in abdomen Pain currently is 10 out of 10 on a pain scale. Neuro: No deficits noted. Level of Consciousness is awake, alert, obeys commands, Oriented to person, place, time, situation, Appropriate for age. Cardiovascular: No deficits noted. Heart tones S1 S2 present Capillary refill < 3 seconds in bilateral fingers. Respiratory: Airway is patent Respiratory effort is even, unlabored, Respiratory pattern is regular, symmetrical. GI: Reports lower abdominal pain, upper abdominal pain, nausea, Pain is 10 out of 10 on a pain scale. : No signs and/or symptoms were reported regarding the genitourinary system. EENT: No signs and/or symptoms were reported regarding the EENT system. Derm: Reports scar from sx began hurting 4-5 days ago and today was the worst scar appear to be healing well with no outward signs of infection. Musculoskeletal: No deficits noted. 23:18 Reassessment: Patient appears in no apparent distress at this time. Patient and/or bm8 family updated on plan of care and expected duration. Pain level reassessed. Patient is alert, oriented x 3, equal unlabored respirations, skin warm/dry/pink. pt is resting with eyes closed breathing is even unlabored with symmetrical rise and fall of chest. pt is awaiting CT scan. for further diagnosis Patient denies pain at this time. Patient states feeling better. Patient states symptoms have improved. 11 00:57 Reassessment: Patient appears in no apparent distress at this time. No changes from 8 previously documented assessment. Patient and/or family updated on plan of care and expected duration. Pain level reassessed. Patient is alert, oriented x 3, equal unlabored respirations, skin warm/dry/pink. 02:04 Reassessment: In room, provider had to call out to pt x3 time and shake her to wake her bm8 up. Pt informed of intent to discharge by provider and became upset speaking in a loud enough voice to be heard at nurse station " You people don't care! Fuck you and everyone here." pt refused to sign discharge papers and continued to rant as she left the building, " Fuck you all," while throwing up the middle finger to all staff as she passed to the main ER exit. Vital Signs: 03/23 21:35 BP 165 / 100; Pulse 108; Resp 18 S; Temp 97.7(O); Pulse Ox 100% on R/A; Weight 113.4 ha1 kg; Height 5 ft. 3 in. ; Pain 9/10; 22:36 BP 144 / 99; Pulse 72; Resp 18; Temp 97.7; Pulse Ox 98% ; Pain 10/10; bm8 23:20 BP 138 / 88; Pulse 110; Resp 18; Temp 97.7; Pulse Ox 98% ; Pain 0/10; bm8 03/24 00:57 BP 142 / 87; Pulse 107; Resp 18; Temp 97.6; Pulse Ox 94% ; Pain 0/10; bm8 03/23 21:35 Body Mass Index 44.29 (113.40 kg, 160.02 cm) ha1 03/23 21:35 Pain Scale: Adult ha1 22:36 Pain Scale: Adult bm8 23:20 Pain Scale: Adult bm8 03/24 00:57 Pain Scale: Adult bm8 Brenda Coma Score: 03/23 22:36 Eye Response: spontaneous(4). Motor Response: obeys commands(6). Verbal Response: bm8 oriented(5). Total: 15. 23:20 Eye Response: spontaneous(4). Motor Response: obeys commands(6). Verbal Response: bm8 oriented(5). Total: 15. 03/24 00:57 Eye Response: spontaneous(4). Motor Response: obeys commands(6). Verbal Response: bm8 oriented(5). Total: 15. ED Course: 03/23 21:33 Patient arrived in ED. im 21:37 SANCHEZ ALEGRIA RN is Primary Nurse. dd2 21:50 Xiomy Woo FNP-C is PHCP. kb 21:50 Robert Feng MD is Attending Physician. kb 22:11 Triage completed. ha1 22:36 Patient has correct armband on for positive identification. Bed in low position. Call bm8 light in reach. Side rails up X 1. Client placed on continuous cardiac and pulse oximetry monitoring. NIBP monitoring applied. Pulse ox on. NIBP on. Door closed. Noise minimized. Warm blanket given. Pillow given. Verbal reassurance given. 22:36 No provider procedures requiring assistance completed. Initial lab(s) drawn, by me, bm8 sent to lab. Urine collected: clean catch specimen, clear. Inserted saline lock: 18 gauge in right antecubital area, using aseptic technique. ,using aseptic technique. ultrasound guided. Blood collected. Flushed with 10 mL NS. Patient maintains SpO2 saturation greater than 95% on room air. 03/24 00:01 CT Abd/Pelvis - IV Contrast Only In Process Unspecified. EDMS 00:57 Arm band placed on right wrist. bm8 02:04 Provided Education on: post er care and need to follow up with previous surgeon. bm8 02:04 IV discontinued, intact, bleeding controlled, No redness/swelling at site. Pressure bm8 dressing applied. Administered Medications: 03/23 22:42 Drug: Ondansetron IVP 4 mg IVP once; over 2 minutes Route: IVP; Site: right antecubital;bm8 03/24 00:57 Follow up: Response: No adverse reaction [facility] 03/23 22:42 Drug: morphine IVP or IV 4 mg IVP once over 4 mins Route: IVP; Infused Over: 4 mins; bm8 Site: right antecubital; 03/24 00:57 Follow up: Response: No adverse reaction [facility] 03/23 22:42 Drug: NS 0.9% IV 1000 ml IV at 1 bolus Per protocol; to be given as a bolus over 60 bm8 minutes Route: IV; Rate: 1 bolus; Site: right antecubital; 03/24 00:56 Follow up: Response: No adverse reaction; IV Status: Completed infusion; IV Intake: bm8 1000ml 00:04 Drug: morphine IVP or IV 4 mg IVP once over 4 mins Route: IVP; Infused Over: 4 mins; bm8 Site: right antecubital; 00:56 Follow up: Response: No adverse reaction bm8 Medication: 03/23 22:36 VIS not applicable for this client. bm8 Intake: 11 00:56 IV: 1000ml; Total: 1000ml. bm8 Outcome: 02:00 Discharge ordered by . sp4 02:04 Discharged to home ambulatory, bm8 02:04 Condition: stable 02:04 Discharge instructions given to patient, Instructed on discharge instructions, follow up and referral plans. no drinking with medication, no driving heavy equipment, medication usage, safety practices, Demonstrated understanding of instructions, follow-up care, 02:11 Patient left the ED. bm8 Signatures: Dispatcher [employer] EDMS Xiomy Woo, FORGEMAN HELPER-C FORGEMAN HELPER-CkKira Correia, RN RN ha1 Robert Feng MD MD sp4 Caroline Navarro Brad RN RN bm8 SANCHEZ ALEGRIA RN RN dd2 Corrections: (The following items were deleted from the chart) 00:58 00:57 BP 142 / 87; Pulse 107bpm; Resp 18bpm; Pulse Ox 93%; Temp 97.6F; Pain 0/10, bm8 Adult; bm8 02:11 02:04 Reassessment: PT informed of intent to discharge by provider and became upset bm8 speaking in a loud enough voice to be heard at nurse stations " You people don't care! Fuck you and everyone here." pt refused to sign discharge papers and continued to rant as she left the building, " Fuck you all," while throwing up the middle finger to all staff as she passed to the main ER exit. bm8
--- NOTE | 2024-03-24 02:01 | EDPHYS ---
Physician Documentation [facility] Name: Ana Ashby Age: 49 yrs Sex: Female : 1975 Arrival Date: 03/23/2024 Time: 21:29 Bed 7 Private MD: ED Physician Robert Feng HPI: 03/23 22:58 This 49 yrs old Female presents to ER via Ambulatory with complaints of Scar pain. kb 22:58 Pt is a 49 year old female who presents for abd pain for 5 days. States she had surgery kb 2.5 months ago for a bowel obstruction and her pain is where her scar is. Denies n/v/d/fever. . 03/24 01:57 Patient reports that 2.5 months ago she had surgery at [facility]. sp4 Possibly midline hernia repair associated with bowel obstruction. Patient has extensive abdominal scarring midline of the abdomen which seems to be the source of her pain. . 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 - Infectious Disease History:: Denies. - Social history:: Smoking status: Patient reports the use of cigarette tobacco products, smokes one-half pack cigarettes per day. ROS: 22:57 Constitutional: As per HPI kb Exam: 22:57 Constitutional: This is a well developed, well nourished patient who is awake, alert, kb and in no acute distress. Head/Face: Normocephalic, atraumatic. ENT: Moist Mucous membranes Cardiovascular: Regular rate Respiratory: Respirations even and unlabored. No increased work of breathing. Talking in full sentences Skin: Warm, dry with normal turgor. Normal color. MS/ Extremity: Pulses equal, no cyanosis. Neurovascular intact. Full, normal range of motion. Neuro: Awake and alert, GCS 15, oriented to person, place, time, and situation. 22:57 Abdomen/GI: Inspection: scar down midline abd, Palpation: soft, in all quadrants, moderate abdominal tenderness, in the left upper quadrant, Vital Signs: 21:35 BP 165 / 100; Pulse 108; Resp 18 S; Temp 97.7(O); Pulse Ox 100% on R/A; Weight 113.4 ha1 kg; Height 5 ft. 3 in. ; Pain 9/10; 22:36 BP 144 / 99; Pulse 72; Resp 18; Temp 97.7; Pulse Ox 98% ; Pain 10/10; bm8 23:20 BP 138 / 88; Pulse 110; Resp 18; Temp 97.7; Pulse Ox 98% ; Pain 0/10; bm8 03/24 00:57 BP 142 / 87; Pulse 107; Resp 18; Temp 97.6; Pulse Ox 94% ; Pain 0/10; bm8 03/23 21:35 Body Mass Index 44.29 (113.40 kg, 160.02 cm) ha1 03/23 21:35 Pain Scale: Adult ha1 22:36 Pain Scale: Adult bm8 23:20 Pain Scale: Adult bm8 03/24 00:57 Pain Scale: Adult bm8 [place] Coma Score: 03/23 22:36 Eye Response: spontaneous(4). Motor Response: obeys commands(6). Verbal Response: bm8 oriented(5). Total: 15. 23:20 Eye Response: spontaneous(4). Motor Response: obeys commands(6). Verbal Response: bm8 oriented(5). Total: 15. 03/24 00:57 Eye Response: spontaneous(4). Motor Response: obeys commands(6). Verbal Response: bm8 oriented(5). Total: 15. MDM: 03/23 21:50 Medical Screening Exam initiated kb 22:58 Data reviewed: vital signs, nurses notes. kb 03/24 00:49 Transition of care: After a detail discussion of the patient's case, care is kb transferred to Robert Feng MD. 01:46 ED course: EXAM DESCRIPTION: Abdomen Pelvis W Contrast CLINICAL HISTORY: 49 years sp4 Female Abdominal pain. COMPARISON: CTAbdomen pelvis without contrast 12/31/2023. TECHNIQUE: Images were obtained in axial, coronal and sagittal planes. Intravenous contrast administration. This exam was performed according to our departmental dose-optimization program which includes use of Automated Exposure Control, adjustment of the mA and/or kV according to patient size and/or use of iterative reconstruction technique. FINDINGS: No abnormality involving the liver, pancreas, or adrenal glands bilaterally. Prior cholecystectomy. Spleen is mildly enlarged measuring 13 cm in anterior posterior dimension. Calcified granuloma involving this lesion. Surgical clips at epigastric region. Adrenal glands within normal limits bilaterally. No obstructing renal or ureteral calculi bilaterally. No hydronephrosis bilaterally. Moderate bladder distention. Atrophic uterus. Appendix within normal limits. Surgical clips mid and right abdomen correlating with bowel anastomoses. No bowel obstruction, perforation, or inflammation. No dilatation of the abdominal aorta. Unremarkable portal vein. 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 No adenopathy or abnormal fluid collections seen. Postsurgical changes mid abdomen with small periumbilical hernia extending to the right containing only mesenteric fat. No acute osseous abnormality. Calcified granuloma lower lungs bilaterally. IMPRESSION: No acute intra-abdominal abnormality. Postsurgical changes. Mild splenomegaly.. 02:06 Differential diagnosis: diverticulitis, Dysmenorrhea, Endometriosis, gastritis. sp4 Consideration of Admission/Observation Escalation of care including admission/observation considered. ED course: Patient was informed that there is no emergent problems visualized by the CT abdomen pelvis. Patient was offered temporary pain medication such as tramadol or Bentyl.. Patient became upset and irritable and declined pain medication. We have advised patient to see her surgeon at [facility] for further consultation on the abdominal pain related to abdominal scarring.. 03/23 21:53 Order name: CBC with Diff; Complete Time: 22:57 kb 03/23 21:53 Order name: CMP; Complete Time: 23:18 kb 03/23 21:53 Order name: Lipase; Complete Time: 23:18 kb 03/23 21:53 Order name: Urinalysis w/ reflexes; Complete Time: 23:02 kb 03/23 23:03 Order name: Urine Culture EDMS 03/23 21:53 Order name: CT Abd/Pelvis - IV Contrast Only kb 03/23 21:53 Order name: IV Saline Lock; Complete Time: 22:43 kb 03/23 21:53 Order name: Labs collected and sent; Complete Time: 22:43 kb Administered Medications: 03/23 22:42 Drug: Ondansetron IVP 4 mg IVP once; over 2 minutes Route: IVP; Site: right antecubital;bm8 03/24 00:57 Follow up: Response: No adverse reaction [facility] 03/23 22:42 Drug: morphine IVP or IV 4 mg IVP once over 4 mins Route: IVP; Infused Over: 4 mins; bm8 Site: right antecubital; 03/24 00:57 Follow up: Response: No adverse reaction [facility] 03/23 22:42 Drug: NS 0.9% IV 1000 ml IV at 1 bolus Per protocol; to be given as a bolus over 60 bm8 minutes Route: IV; Rate: 1 bolus; Site: right antecubital; 03/24 00:56 Follow up: Response: No adverse reaction; IV Status: Completed infusion; IV Intake: bm8 1000ml 00:04 Drug: morphine IVP or IV 4 mg IVP once over 4 mins Route: IVP; Infused Over: 4 mins; bm8 Site: right antecubital; 00:56 Follow up: Response: No adverse reaction bm8 Disposition: 01:56 Co-signature as Attending Physician, Robert Feng MD I agree with the assessment sp4 and plan of care. I reviewed the patient's care provided by Advanced Practice Provider \T\ agree w/ the diagnosis \T\ care plan. I personally saw the pt \T\ performed a substantive portion of the visit, incldng all aspects of the (History/Exam/Medical Decision Making). Disposition Summary: 03/24/24 02:00 Discharge Ordered Problem: new sp4 Symptoms: have improved sp4 Condition: Stable sp4 Diagnosis - Abdominal pain, Generalized sp4 - Acute Abdominal Pain associated with previos abdominal surgery , Acute Mid sp4 Abdominal pain Followup: sp4 - With: Private Physician - When: 7 - 10 days - Reason: Recheck today's complaints Discharge Instructions: - Discharge Summary Sheet sp4 - Abdominal Pain, Adult, [id number] sp4 Forms: - Patient Portal Instructions sp4 Signatures: Dispatcher [employer] Xiomy Matos FNP-C FNP-Kira Lemus, RN RN ha1 Robert Feng MD MD sp4 Dirk Clinton RN RN bm8
[2024-03-24 03:06] VITALS: BP 142/87; TEMP 97.6; O2SAT 94
--- NOTE | 2024-03-24 04:00 | RAD REPORT ---
EXAM DESCRIPTION: Abdomen Pelvis W Contrast CLINICAL HISTORY: 49 years Female Abdominal pain. COMPARISON: CT Abdomen pelvis without contrast 12/31/2023. TECHNIQUE: Images were obtained in axial, coronal and sagittal planes. Intravenous contrast administration. This exam was performed according to our departmental dose-optimization program which includes use of Automated Exposure Control, adjustment of the mA and/or kV according to patient size and/or use of it erative reconstruction technique. FINDINGS: No abnormality involving the liver, pancreas, or adrenal glands bilaterally. Prior cholecystectomy. S pleen is mildly enlarged measuring 13 cm in anterior posterior dimension. Calcified granuloma involving this lesion. Surgical clips at epigastric region. Adrenal glands within normal limits bilat erally. No obstructing renal or ureteral calculi bilaterally. No hydronephrosis bilaterally. Moderate bladder distention. Atrophic uterus. Appendix within normal limits. Surgical clips mid and right abdomen correlating with bowel anastomose s. No bowel obstruction, perforation, or inflammation. No dilatation of the abdominal aorta. Unremarkable portal vein. 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 No adenopathy or abnormal fluid collections seen. Postsurgical changes mid abdomen with small periumbilical hernia extending to the right containing only mesenteric fat. No acute osseous abnormality. Calcified granuloma lower lungs bilaterally. IMPRESSION: No acute intra-abdominal abnormality. Postsurgical changes. Mild splenomegaly. Electronically signed by: Erika Valencia MD 03/24/2024 01:01 AM [facility] Due to temporary technical issues with the [employer] reporting system, reports are being deirdre d by the in-house radiologist without review as a courtesy to ensure prompt reporting the interpreting radiologist is fully responsible for the content of the report. Transcribed Date/Time: 03/24/2024 4:00 AM
== END 2024-03-24 02:11 | disposition home or self-care (01) ==
LOC: ER 21:29
DX: R10.84 Generalized abdominal pain (principal); L90.5 Scar conditions and fibrosis of skin; F17.210 Nicotine dependence, cigarettes, uncomplicated
CPT/HCPCS: 87088; 85025; 81001; 87086; 36415; 83690; 80053; 74177; Q9967; J2405; J7030

== ENCOUNTER 2024-08-06 20:05 | Observation (INO) | payer OTHER ==
[2024-08-06 21:29] LABS: Absolute Basophils 0.1 K/uL (0-0.5); Absolute Eosinophils 0.2 K/uL (0-0.5); Absolute Lymphocytes (CBC) 1.8 K/uL (0.7-4.9); Absolute Monocytes 0.7 K/uL (0.1-1.3); Absolute Neutrophil 5.2 K/uL (1.8-8.0); Basophils % 0.7 % (0-1.3); Eosinophils % 2.2 % (0-4.4); Hematocrit 33.7 % (36.0-45.0); Lymphocytes % 22.5 % (15.3-44.8); MCH 25.8 pg (27.0-35.0); MCHC 32.7 g/dL (32.0-36.0); MCV 78.7 fL (80-100); MPV 8.5 fL (7.6-11.3); Monocytes % 8.6 % (3.3-12.3); Nucleated Red Blood Cells % 0.1 % (0-0); Platelets 229 thou/uL (152-406); RBC Red Blood Cell Count 4.29 M/uL (3.86-4.86); Red Cell Distribution Width 21.4 % (12.1-15.2)
--- NOTE | 2024-08-06 21:32 | RAD REPORT ---
EXAMINATION: ONE VIEW CHEST XR CLINICAL INDICATION: ABDOMINAL DISTENTION TECHNIQUE: Frontal chest projection is submitted. Examination is limited by patient positioning and t echnique. COMPARISON: No prior exam. FINDINGS: Mild interstitial pulmonary edema. The heart is upper limit of normal in size. No displaced fractures identified. IMPRESSION: Mild CHF.
[2024-08-06 21:33] LABS: Anisocytosis 1+; Blood Morphology Comment NOTED (NOT SEEN); Platelet Estimate ADEQ; White Blood Cell Scan OK (OK)
--- NOTE | 2024-08-06 21:48 | RAD REPORT ---
EXAMINATION: CT ABDOMEN AND PELVIS WITH CONTRAST CLINICAL INDICATION: ABD PAIN TECHNIQUE: CT abdomen and pelvis was performed, after the administration of IV [facility] Axial, sagittal and coronal reconstructions were obtained. One or more of the following dose reduction techniques were used: Automated exposure control, adjustment of the mA and k V according to patient size, and iterative reconstruction. Unless otherwise specified, incidental findings do not require dedicated imaging follow-up. COMPARISON: No prior exam. FINDINGS: LOWER CHEST: The visualized lung bases are clear. Postsurgical changes about the stomach. LIVER: Normal in size and contour. No focal lesion. Cholecystectomy clips. SPLEEN: Normal size. No focal lesion. PANCREAS: No mass, ductal dilation, or salvador-pancreatic fluid. ADRENALS: Normal; no mass. KIDNEYS: Normal size and contour. No hydronephrosis. GASTROINTESTINAL TRACT: No evidence of free air, significant intra-abdominal free fluid, bowel obstru ction or abscess. Moderate stool is retained throughout the colon. APPENDIX: Normal appendix. LYMPH NODES: No lymphadenopathy. MUSCULOSKELETAL: No acute or suspicious osseous abnormality. ADDITIONAL FINDINGS: Anterior midline subcutaneous scarring. IMPRESSION: Moderate stool retention throughout the colon.
[2024-08-06 21:49] LABS: ALT/SGPT 27 U/L (13-56); AST/SGOT 23 U/L (15-37); Albumin 2.9 g/dL (3.4-5.0); Albumin/Globulin Ratio 0.6 (1.1-1.8); Alkaline Phosphatase 145 U/L (45-117); Anion Gap 9.2 mEq/L (5.0-15.0); BUN Blood Urea Nitrogen 26 mg/dL (7-18); Bicarbonate 27 mEq/L (21-32); Bilirubin Total < 0.2 mg/dL (0.2-1.0); Globulin 4.5 g/dL (2.3-3.5); Glomerular Filtration Rate 62 ml/min (=/>90); Glucose Level 101 mg/dL (74-106); Lipase 35 U/L (13-75); Magnesium 2.4 mg/dL (1.6-2.4); NT PRO-BNP 129 pg/mL (<125); Potassium 5.2 mEq/L (3.5-5.1); Protein, Total 7.4 g/dL (6.4-8.2); Sodium Level 136 mEq/L (136-145); Troponin High Sensitivity 5.2 pg/mL (<58.9)
[2024-08-06 21:50] LABS: Bilirubin Direct < 0.2 mg/dL (0-0.2)
[2024-08-06] MEDS ORDERED: FAMOTIDINE 20 MG/2 ML VIAL IV ONE ×2 (21:57→22:09)
[2024-08-06] MEDS ORDERED: BISACODYL 10 MG RECTAL SUPP ONE (21:57)
[2024-08-06] MEDS ORDERED: NA CHLORIDE 0.9% 1,000 ML ONE (21:57)
[2024-08-06] MEDS ORDERED: CIPROFLOXACIN 400mg IV 400 MG/200 ML BAG IV ONE (21:57)
[2024-08-06] MEDS ORDERED: METRONIDAZOLE 500mg IVPB 500 MG/100 ML BAG IV ONE (21:57)
[2024-08-06] MEDS ORDERED: LACTULOSE 20 GM/30 ML UCUP ONE (21:58)
[2024-08-06] MEDS ORDERED: METHYLPREDNISOLONE 125 MG INJ ONE (22:08)
[2024-08-06] MEDS ORDERED: DIPHENHYDRAMINE 50 MG/ML VIAL ONE (22:08)
[2024-08-06] MEDS ORDERED: MORPHINE 4 MG/ML SYR ONE (22:35)
--- NOTE | 2024-08-06 22:36 | EDPHYS ---
Physician Documentation [facility] Name: Ana White Age: 49 yrs Sex: Female : 1975 Arrival Date: 08/06/2024 Time: 20:05 Bed IW9 Private MD: ED Physician Santino Del Rio HPI: 08/06 22:26 This 49 yrs old Female presents to ER via Ambulatory with complaints of sudha Abdominal Pain, Rectal Bleeding, Diarrhea. 22:26 The patient presents to the emergency department with bleeding from the rectum/anus, sudha that is mild. Onset: The symptoms/episode began/occurred 2 day(s) ago. Context: the patient has no known special context relating to the rectal area complaint(s). Modifying factors: The symptoms are aggravated by bowel movement. Associate signs and symptoms: Pertinent positives: abdominal pain in the right upper quadrant, left upper quadrant, right lower quadrant and left lower quadrant, constipation. The patient has not experienced similar symptoms in the past. Historical: - Allergies: 21:17 NSAIDS; iw 21:17 Toradol; iw - PMHx: 21:17 Hypertensive disorder; Anxiety; depressive disorder; iw - PSHx: 21:17 bowel obstruction; bypass reversal; Gastric Bypass; iw - Immunization history:: Adult Immunizations up to date. - Infectious Disease History:: Denies. - Social history:: Smoking status: Reported history of juuling and/or vaping. ROS: 22:28 Constitutional: Negative for fever, chills, and weight loss, Eyes: Negative for injury, sudha pain, redness, and discharge, ENT: Negative for injury, pain, and discharge, Neck: Negative for injury, pain, and swelling, Cardiovascular: Negative for chest pain, palpitations, and edema, Respiratory: Negative for shortness of breath, cough, wheezing, and pleuritic chest pain, Back: Negative for injury and pain, : Negative for injury, bleeding, discharge, and swelling, MS/Extremity: Negative for injury and deformity, Skin: Negative for injury, rash, and discoloration, Neuro: Negative for headache, weakness, numbness, tingling, and seizure, Psych: Negative for depression, anxiety, suicide ideation, homicidal ideation, and hallucinations, Allergy/Immunology: Negative for hives, rash, and allergies, Endocrine: Negative for neck swelling, polydipsia, polyuria, polyphagia, and marked weight changes, Hematologic/Lymphatic: Negative for swollen nodes, abnormal bleeding, and unusual bruising, 22:28 Abdomen/GI: Positive for abdominal pain, diarrhea, rectal bleeding, Exam: 22:28 Constitutional: This is a well developed, well nourished patient who is awake, alert, sudha and in no acute distress. Head/Face: Normocephalic, atraumatic. Eyes: Pupils equal round and reactive to light, extra-ocular motions intact. Lids and lashes normal. Conjunctiva and sclera are non-icteric and not injected. Cornea within normal limits. Periorbital areas with no swelling, redness, or edema. ENT: Nares patent. No nasal discharge, no septal abnormalities noted. Tympanic membranes are normal and external auditory canals are clear. Oropharynx with no redness, swelling, or masses, exudates, or evidence of obstruction, uvula midline. Mucous membranes moist. Neck: Trachea midline, no thyromegaly or masses palpated, and no cervical lymphadenopathy. Supple, full range of motion without nuchal rigidity, or vertebral point tenderness. No Meningismus. Chest/axilla: Normal chest wall appearance and motion. Nontender with no deformity. No lesions are appreciated. Cardiovascular: Regular rate and rhythm with a normal S1 and S2. No gallops, murmurs, or rubs. Normal PMI, no JVD. No pulse deficits. Respiratory: Lungs have equal breath sounds bilaterally, clear to auscultation and percussion. No rales, rhonchi or wheezes noted. No increased work of breathing, no retractions or nasal flaring. Back: No spinal tenderness. No costovertebral tenderness. Full range of motion. Skin: Warm, dry with normal turgor. Normal color with no rashes, no lesions, and no evidence of cellulitis. MS/ Extremity: Pulses equal, no cyanosis. Neurovascular intact. Full, normal range of motion., bilateral aka Neuro: Awake and alert, GCS 15, oriented to person, place, time, and situation. Cranial nerves II-XII grossly intact. Motor strength 5/5 in all extremities. Sensory grossly intact. Cerebellar exam normal. Normal gait. Psych: Awake, alert, with orientation to person, place and time. Behavior, mood, and affect are within normal limits. 22:28 ECG was reviewed by the Attending Physician. 22:28 Abdomen/GI: Inspection: distension, Bowel sounds: active, Liver: no appreciated palpable abnormalities, Hernia: not appreciated, 22:28 Musculoskeletal/extremity: DVT Exam: No signs of deep vein thrombosis. no pain, no swelling, no tenderness, negative Homans' sign noted on exam, no appreciated bluish discoloration, no erythema, no increased warmth, 22:36 ECG was reviewed by the Attending Physician. [facility] 22:39 Abdomen/GI: Palpation: mild abdominal tenderness, in all quadrants, Rectal exam: is sudha unremarkable, rectal tone normal, Stool: refused test hemorrhoid(s), are not appreciated, mass, is not appreciated, swelling, that is mild, Vital Signs: 21:19 BP 107 / 69; Pulse 108; Resp 18; Temp 97.7; Pulse Ox 97% on R/A; Weight 108.86 kg; iw Height 5 ft. 5 in. ; Pain 8/10; 22:10 BP 110 / 81; Pulse 101; Resp 19; Pulse Ox 99% ; me1 23:00 BP 133 / 96; Pulse 111; Resp 19; Pulse Ox 100% ; me1 08/07 00:00 BP 116 / 71; Pulse 111; Resp 18; Pulse Ox 99% ; cp4 01:30 BP 128 / 96; Pulse 106; Resp 18; Pulse Ox 99% ; cp4 08/06 21:19 Body Mass Index 39.94 (108.86 kg, 165.1 cm) 08/06 21:19 Pain Scale: Adult iw MDM: 08/06 20:24 Medical Screening Exam initiated sudha 22:30 Differential diagnosis: hemorrhoids, fissure, bowel obstruction, diverticulitis, sudha gastritis, gastroesophageal reflux disease, GI Bleed. Data reviewed: vital signs, nurses notes, lab test result(s), EKG, radiologic studies, CT scan, plain films. Consideration of Admission/Observation Patient was admitted/placed on observation. Escalation of care including admission/observation considered. I considered the following discharge prescriptions or medication management in the emergency department Medications were administered in the Emergency Department. See MAR. Independent interpretation of the following test(s) in the Emergency Department EKG: See my EKG interpretation above. Test considered but Not performed: EKG: NO ABD USG. Historians other than the Patient: PT WELL INFORMED. Care significantly affected by the following chronic conditions: Diabetes, Hypertension, Obesity. Counseling: I had a detailed discussion with the patient and/or guardian regarding the historical points, exam findings, and any diagnostic results supporting the discharge/admit diagnosis, lab results, radiology results, the need for further work-up and treatment in the hospital. 08/06 20:26 Order name: Basic Metabolic Panel; Complete Time: 22:18 [facility] 08/06 20:26 Order name: CBC with Diff; Complete Time: 22:18 [facility] 08/06 20:26 Order name: LFT's; Complete Time: 22:18 [facility] 08/06 20:26 Order name: Magnesium; Complete Time: 22:18 [facility] 08/06 20:26 Order name: NT PRO-BNP; Complete Time: 22:18 [facility] 08/06 20:26 Order name: PT-INR [facility] 08/06 20:26 Order name: Troponin HS; Complete Time: 22:18 [facility] 08/06 20:26 Order name: Lipase; Complete Time: 22:18 [facility] 08/06 20:26 Order name: Type And Screen [facility] 08/06 20:26 Order name: Fecal Leukocyte Stain [facility] 08/06 20:26 Order name: Stool Culture [facility] 08/06 21:33 Order name: CBC Smear Scan; Complete Time: 22:18 [facility] 08/06 22:49 Order name: Urinalysis w/ reflexes; Complete Time: 01:00 [facility] 08/06 22:49 Order name: CBC with Automated Diff [facility] 08/06 22:49 Order name: CBC with Automated Diff [facility] 08/06 22:49 Order name: Comprehensive Metabolic Panel [facility] 08/06 22:49 Order name: Comprehensive Metabolic Panel [facility] 08/06 20:26 Order name: XRAY Chest (1 view); Complete Time: 22:18 [facility] 08/06 20:26 Order name: CT Abd/Pelvis - IV Contrast Only; Complete Time: 22:18 [facility] 08/06 20:26 Order name: Cardiac monitoring; Complete Time: : [facility] 08/06 20:26 Order name: EKG - Nurse/Tech; Complete Time: : [facility] 08/06 20:26 Order name: IV Saline Lock; Complete Time: 22:06 [facility] 08/06 20:26 Order name: Labs collected and sent; Complete Time: 22: [facility] 08/06 20:26 Order name: O2 Per Protocol; Complete Time: 22: [facility] 08/06 20:26 Order name: O2 Sat Monitoring; Complete Time: : [facility] 08/06 20:26 Order name: IV Saline Lock - Large Bore; Complete Time: : [facility] EC:36 Rate is 138 beats/min. Rhythm is regular. QRS [place] is Normal. CT interval is normal. [facility] QRS interval is normal. QT interval is normal. No Q waves. T waves are Normal. No ST changes noted. Clinical impression: Sinus tachycardia and No evidence of ischemia. Interpreted by me. Reviewed by me. Administered Medications: 22:05 Drug: Famotidine IVP 20 mg IVP once; dilute with 10 mL 0.9% NaCl; give over 2 minutes hb Route: IVP; Site: right antecubital; 22:40 Follow up: Response: No adverse reaction me1 22:05 Drug: metroNIDAZOLE IVPB 500 mg 100 ml IVPB at 200 ml/hr once over 30 mins Volume: 100 hb ml; Route: IVPB; Rate: 200 ml/hr; Infused Over: 30 mins; Site: right antecubital; 22:39 Follow up: Response: No adverse reaction; IV Status: Completed infusion me1 22:05 Drug: Lactulose PO 30 grams 45 ml PO once Volume: 45 ml; Route: PO; hb 22:40 Follow up: Response: No adverse reaction me1 22:06 Drug: NS 0.9% IV 1000 ml IV at 1000 ml once; to be given as a bolus over 60 minutes hb Route: IV; Rate: 1000 ml; Site: right antecubital; 23:57 Follow up: Response: No adverse reaction; IV Status: Completed infusion me1 22:13 Drug: Famotidine IVP 20 mg IVP once; dilute with 10 mL 0.9% NaCl; give over 2 minutes hb Route: IVP; Site: right antecubital; 22:39 Follow up: Response: No adverse reaction me1 22:13 Drug: diphenhydrAMINE IVP 50 mg IVP once Route: IVP; Site: right antecubital; hb 22:39 Follow up: Response: No adverse reaction me1 22:14 CANCELLED (verbal order was for solumedrol 125 mg IV): methylprednisolone sodium me1 [id number] mg IM once 22:15 Drug: MethylPrednisoLONE IVP 125 mg IVP once Route: IVP; Site: right antecubital; me1 22:38 Follow up: Response: No adverse reaction me1 22:38 Drug: morphine IVP or IV 4 mg IVP once over 4 mins Route: IVP; Infused Over: 4 mins; me1 Site: right wrist; 22:58 Follow up: Response: No adverse reaction; Pain is decreased me1 22:39 Drug: Ciprofloxacin IVPB 400 mg 200 ml IVPB once over 60 mins Volume: 200 ml; Route: me1 IVPB; Infused Over: 60 mins; Site: right wrist; 23:56 Follow up: Response: No adverse reaction; IV Status: Completed infusion me1 22:40 Not Given (Patient Refused): dulcolaxsuppository [address] once me1 08/07 01:31 Not Given (Patient Refused): haloperidol2.5 mg/50 ml 2.5 mg IVP once; Place patient on cp4 a media monitor Disposition Summary: 08/07/24 03:00 Discharge Ordered Notes: Location: Home(08/07/24 03:00) sudha Problem: new(08/07/24 03:00) sudha Symptoms: have improved(08/07/24 03:00) sudha Condition: Stable(08/07/24 03:00) sudha Diagnosis - Abdominal pain, Generalized(08/07/24 03:00) sudha - Constipation(08/07/24 03:00) sudha - Obesity, unspecified(08/07/24 03:00) sudha - GI Bleed/ Gastrointestinal hemorrhage, unspecified - LOWER , STABLE(08/07/24 03:00) sudha - Unspecified kidney failure(08/07/24 03:00) sudha - Hypokalemia sudha Followup: sudha - With: Private Physician - When: Upon discharge from the Emergency Department - Reason: Recheck today's complaints, Continuance of care, Re-evaluation by your physician Discharge Instructions: - Discharge Summary Sheet sudha - Abdominal Pain, Adult sudha - Constipation, Adult sudha - Gastrointestinal Bleeding sudha - Obesity, Adult sudha - Rectal Bleeding sudha - Constipation, Adult, [id number] sudha - Abdominal Pain, Adult, Gdzt-pr-Fomw sudha - Chronic Kidney Disease, Adult, Xibo-ic-Poaq sudha - Obesity, Adult, Vyuv-mj-Gfvk sudha Forms: - Medication Reconciliation Form sudha - Antibiotic Education sudha - Prescription Opioid Use sudha - Patient Portal Instructions sudha - Leadership Thank You Letter sudha Signatures: Dispatcher [employer] EDMS Santino Del Rio MD MD cha Williams, Irene RN DELFINO Britany Butts RN RN Chantel Sanderson RN RN az1 Adry Frost [facility] Inocencia Ferrera RN RN br2 Zoie Hurt 4 Corrections: (The following items were deleted from the chart) 08/06 20:27 20:27 Chest Single View+RAD.RAD.BRZ ordered. EDMS EDMS 20:27 20:27 Abdomen Pelvis W Con+CT.RAD.BRZ ordered. EDMS EDMS 21:38 21:32 Abdomen Pelvis W Con+CT.RAD.BRZ ordered. EDMS EDMS 22:14 22:13 MethylPREDNISolone Sodium Succinate IM 125 mg IM once ordered. hb me1 08/07 00:48 03 22:36 sudha br2 08/07 01:21 00:[address] 02:58 08/06 22:36 Observation sudha sudha 08/07 02:58 08/06 22:36 Kiet Hunter [facility] 08/07 02:58 08/06 22:36 Telemetry/MedSurg (observation) sudha sudha 08/07 02:58 08/06 22:36 Stable sudha sudha 08/07 02:58 08/06 22:36 an acute exacerbation sudha sudha 08/07 02:58 08/06 22:36 have improved sudha sudha 08/07 02:58 08/06 22:36 Standard sudha [facility] 08/07 02:58 08/06 22:36 Abdominal pain, Generalized sudha sudha 08/07 02:58 08/06 22:36 Constipation sudha sudha 08/07 02:58 08/06 22:36 Obesity, unspecified sudha sudha 08/07 02:58 08/06 22:36 GI Bleed/ Gastrointestinal hemorrhage, unspecified - LOWER STABLE sudha sudha 08/07 02:58 01:01 Unspecified kidney failure sudha sudha 01:01 Hyperkalemia sudha [facility] 01:10 UTI/ Urinary tract infection, site not specified sudha sudha 01:21 kmf sudha
--- NOTE | 2024-08-06 22:36 | ER ---
Nurse's Notes [facility] Name: Ana Ashby Age: 49 yrs Sex: Female : 1975 Arrival Date: 08/06/2024 Time: 20:05 Bed IW9 Private MD: Diagnosis: Abdominal pain, Generalized;Constipation;Obesity, unspecified;GI Bleed/ Gastrointestinal hemorrhage, unspecified-LOWER , STABLE;Unspecified kidney failure;Hypokalemia Presentation: 08/06 21:16 Chief complaint: Patient states: abd pain, constipation, diarrhea, X 3 days , also has iw bloating , gas. Coronavirus screen: At this time, the client does not indicate any symptoms associated with coronavirus-19. Ebola Screen: No symptoms or risks identified at this time. Initial Sepsis Screen: Does the patient meet any 2 criteria? No. Patient's initial sepsis screen is negative. Does the patient have a suspected source of infection? No. Patient's initial sepsis screen is negative. Risk Assessment: Do you want to hurt yourself or someone else? Patient reports no desire to harm self or others. Onset of symptoms was August 04, 2024. 21:16 Method Of Arrival: Ambulatory iw 21:16 Acuity: STALIN 3 iw Historical: - Allergies: 21:17 NSAIDS; iw 21:17 Toradol; iw - PMHx: 21:17 Hypertensive disorder; Anxiety; depressive disorder; iw - PSHx: 21:17 bowel obstruction; bypass reversal; Gastric Bypass; iw - Immunization history:: Adult Immunizations up to date. - Infectious Disease History:: Denies. - Social history:: Smoking status: Reported history of juuling and/or vaping. Screenin:00 [facility] ED Fall Risk Assessment (Adult) History of falling in the last 3 months, me1 including since admission No falls in past 3 months (0 pts) Confusion or Disorientation No (0 pts) Intoxicated or Sedated No (0 pts) Impaired Gait No (0 pts) Mobility Assist Device Used No (0 pt) Altered Elimination No (0 pt) Score/Fall Risk Level 0 - 2 = Low Risk Maintained a safe environment, Provided non-skid footwear, Hourly rounding (assess needs \\T\\ fall precautionary measures) done. Abuse screen: Denies threats or abuse. Nutritional screening: No deficits noted. Tuberculosis screening: No symptoms or risk factors identified. Assessment: 22:00 General: Appears uncomfortable, obese, well developed, Behavior is cooperative, me1 appropriate for age, agitated, Reports abd pain, constipation, diarrhea, X 3 days , also has bloating , gas. Pain: Complains of pain in left lower quadrant and right lower quadrant and left upper quadrant and right upper quadrant Pain does not radiate. Pain currently is 10 out of 10 on a pain scale. Quality of pain is described as crampy, sharp, Pain began 2-3 days ago. Is continuous. Neuro: Level of Consciousness is awake, alert, obeys commands, Oriented to person, place, time, situation, Appropriate for age. Cardiovascular: Patient's skin is warm and dry. Respiratory: Airway is patent Respiratory effort is even, unlabored, Respiratory pattern is regular, symmetrical. GI: Abdomen is round Bowel sounds present X 4 quads. Abd is soft X 4 quads Reports constipation, diarrhea, rectal bleeding, gaseousness. : No signs and/or symptoms were reported regarding the genitourinary system. EENT: No signs and/or symptoms were reported regarding the EENT system. Derm: Skin is intact, is healthy with good turgor, Skin is pink, warm \\T\\ dry. Musculoskeletal: No signs and/or symptoms reported regarding the musculoskeletal system. 08/07 01:21 Reassessment: Patient yelling at staff and nurse stating "I have tylenol and that cp4 doctor is going to order me something better." Explained to patient that doctor just spoke with her and told her he was not ordering narcotic pain medication for her nor was she ordered narcotics upstairs. Patient began yelling at staff again stating "I have never been treated like this before. I want my IV out, I am leaving." IV removed, patient refused to sign AMA form. test desk supervisor spoke with patient as she was leaving. Vital Signs: 08/06 21:19 BP 107 / 69; Pulse 108; Resp 18; Temp 97.7; Pulse Ox 97% on R/A; Weight 108.86 kg; iw Height 5 ft. 5 in. ; Pain 8/10; 22:10 BP 110 / 81; Pulse 101; Resp 19; Pulse Ox 99% ; me1 23:00 BP 133 / 96; Pulse 111; Resp 19; Pulse Ox 100% ; me1 03/22 00:00 BP 116 / 71; Pulse 111; Resp 18; Pulse Ox 99% ; cp4 01:30 BP 128 / 96; Pulse 106; Resp 18; Pulse Ox 99% ; cp4 08/06 21:19 Body Mass Index 39.94 (108.86 kg, 165.1 cm) iw 08/06 21:19 Pain Scale: Adult iw ED Course: 08/06 20:07 Patient arrived in ED. rg4 20:24 Santino Del Rio MD is Attending Physician. sudha 21:05 XRAY Chest (1 view) In Process Unspecified. EDMS 21:17 Triage completed. iw 21:25 No provider procedures requiring assistance completed. Inserted saline lock: 22 gauge iw in right wrist, using aseptic technique. Blood collected. Flushed with 10 mL NS inserted by ADELITA Hamilton. 21:44 CT Abd/Pelvis - IV Contrast Only In Process Unspecified. EDMS 21:54 Britany Butts, RN is Primary Nurse. hb 22:00 Patient has correct armband on for positive identification. Bed in low position. Call me1 light in reach. Side rails up X 1. Provided Education on: POC. Verbalized understanding.. Client placed on continuous cardiac and pulse oximetry monitoring. NIBP monitoring applied. technical service representative on. Pulse ox on. NIBP on. 22:33 EKG done, by ED staff, reviewed by Santino Del Rio MD. oe 22:34 Kiet Hunter MD is Hospitalizing Provider. [facility] 08/07 01:29 intact, bleeding controlled, No redness/swelling at site. Pressure dressing applied. cp4 Administered Medications: 08/06 22:05 Drug: Famotidine IVP 20 mg IVP once; dilute with 10 mL 0.9% NaCl; give over 2 minutes hb Route: IVP; Site: right antecubital; 22:40 Follow up: Response: No adverse reaction me1 22:05 Drug: metroNIDAZOLE IVPB 500 mg 100 ml IVPB at 200 ml/hr once over 30 mins Volume: 100 hb ml; Route: IVPB; Rate: 200 ml/hr; Infused Over: 30 mins; Site: right antecubital; 22:39 Follow up: Response: No adverse reaction; IV Status: Completed infusion ny1 22:05 Drug: Lactulose PO 30 grams 45 ml PO once Volume: 45 ml; Route: PO; hb 22:40 Follow up: Response: No adverse reaction me1 22:06 Drug: NS 0.9% IV 1000 ml IV at 1000 ml once; to be given as a bolus over 60 minutes hb Route: IV; Rate: 1000 ml; Site: right antecubital; 23:57 Follow up: Response: No adverse reaction; IV Status: Completed infusion me1 22:13 Drug: Famotidine IVP 20 mg IVP once; dilute with 10 mL 0.9% NaCl; give over 2 minutes hb Route: IVP; Site: right antecubital; 22:39 Follow up: Response: No adverse reaction me1 22:13 Drug: diphenhydrAMINE IVP 50 mg IVP once Route: IVP; Site: right antecubital; hb 22:39 Follow up: Response: No adverse reaction me1 22:14 CANCELLED (verbal order was for solumedrol 125 mg IV): methylprednisolone sodium me1 [id number] mg IM once 22:15 Drug: MethylPrednisoLONE IVP 125 mg IVP once Route: IVP; Site: right antecubital; me1 22:38 Follow up: Response: No adverse reaction me1 22:38 Drug: morphine IVP or IV 4 mg IVP once over 4 mins Route: IVP; Infused Over: 4 mins; me1 Site: right wrist; 22:58 Follow up: Response: No adverse reaction; Pain is decreased me1 22:39 Drug: Ciprofloxacin IVPB 400 mg 200 ml IVPB once over 60 mins Volume: 200 ml; Route: me1 IVPB; Infused Over: 60 mins; Site: right wrist; 23:56 Follow up: Response: No adverse reaction; IV Status: Completed infusion me1 22:40 Not Given (Patient Refused): dulcolaxsuppository 10 mg UT once me1 08/07 01:31 Not Given (Patient Refused): haloperidol2.5 mg/50 ml 2.5 mg IVP once; 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 ny1 Outcome: 22:36 Decision to Hospitalize by Provider. [facility] 08/07 01:29 AMA Other refused to sign AMA form cp4 Condition: stable Instructed on the need for admit, 03:00 Discharge ordered by . [facility] 03:01 Patient left the ED. cp4 Signatures: Dispatcher [employer] Santino Haynes MD MD cha Williams, Irene, RN RN iw Britany Butts RN RN hb Garcia, Rubi 4 Jaxon Ramos Michelle, RN RN me1 Zoie Hurt cp4 Corrections: (The following items were deleted from the chart) 08/06 21:29 21:19 Resp 18bpm; Pulse Ox 97% RA; Temp 97.7F; 108.86 kg; Height 5 ft. 5 in.; BMI: iw 39.9; Pain 12/26, Adult; iw 23:41 21:16 Chief complaint: Patient states: abd pain, constipation, diarrhea, X 3 days , me1 also has bloating , gas iw
--- NOTE | 2024-08-06 22:43 | P.HP ---
Certification for Inpatient Patient admitted to: Observation With expected LOS: <2 Midnights Practitioner: I am a practitioner with admitting privileges, knowledge of patient current condition, hospital course, and medical plan of care. Services: Services provided to patient in accordance with Admission requirements found in Title 42 Section 412.3 of the Code of Federal Regulations Patient History Date of Service: 08/07/24 Reason for admission: Bleeding per rectum History of Present Illness: 49 yrs old Female with past medical history of hypertension, anxiety, and depressive disorder, history of obesity, bowel obstruction, history of gastric bypass brought to ER with and abdominal Pain, Rectal Bleeding and Diarrhea. The patient presents to the emergency department with bleeding from the rectum . Associated pain in the right upper quadrant and left upper quadrant associated with constipation. Denies any fever or chills. No chest pain or shortness of breath. Denies any nausea or vomiting. Denies any hematemesis. No sick contacts Patient was assessed in the ER and is admitted for further management Allergies NSAIDS (Non-Steroidal Anti-Inflamma Allergy (Unknown, Verified 08/06/24 23:39) Hives ketorolac [From Toradol] Allergy (Verified 08/06/24 23:39) Hives - Past Medical/Surgical History Past Medical History: Reviewed- Non-Contributory -: hypertension, anxiety, depressive disorder, history of obesity, Past Surgical History: Reviewed- Non-Contributory - Family History Family History: Reviewed- Non-Contributory - Social History Smoking Status: Never smoker Review of Systems 10-point ROS is otherwise unremarkable Physical Examination - Vital Signs Temperature: 97.4 F Blood Pressure: 134/76 Pulse: 82 Respirations: 18 Pulse Ox (%): 94 - Physical Exam General: Alert, Oriented x3 HEENT: Atraumatic, Normocephalic Neck: Supple Respiratory: Clear to auscultation bilaterally, Normal air movement Cardiovascular: Regular rate/rhythm, Normal S1 S2 Capillary refill: <2 Seconds Gastrointestinal: Soft and benign, W/out hepatosplenomegaly Musculoskeletal: No clubbing, No swelling Integumentary: No rashes Neurological: Normal strength at 5/5 x4 extr, Cranial nerves 3-12 intact, Normal reflexes 2+ Lymphatics: No axilla or inguinal lymphadenopathy - Studies Laboratory Data (last 24 hrs) 08/06/24 08/06/24 21:22 21:22 WBC 7.90 Hgb 11.0 L Hct 33.7 L Plt Count 229 Sodium 136 Potassium 5.2 H BUN 26 H Creatinine 1.10 H Glucose 101 Magnesium 2.4 Total Bilirubin < 0.2 L AST 23 ALT 27 Alkaline Phosphatase 145 H Lipase 35 Assessment and Plan - Plan Bleeding per rectum Constipation Abdominal pain Pain control Started on PPI Monitor closely under ward assistant H&H closely Hyperkalemia Acute kidney injury IV hydration Monitor closely on ward assistant potassium levels Monitor renal parameters Electrolytes monitor and replace accordingly Hypertension Antihypertensives titrated Continue home medications and titrate as needed GI/DVT prophylaxis Advanced directive full code Discharge Plan: Home Plan to discharge in: 48 Hours - Advance Directives Does patient have a Living Will: No Does patient have a Durable POA for Healthcare: No - Code Status/Comfort Care Code Status: Full Code Time Spent Managing Pts Care (In Minutes): 47
[2024-08-06] MEDS ORDERED: ONDANSETRON 4 MG/2 ML VIAL IV PRN (22:44)
[2024-08-06] MEDS ORDERED: ACETAMINOPHEN 325 MG TABLET PO PRN (22:44)
[2024-08-06] MEDS ORDERED: NA CHLORIDE 0.9% 1,000 ML IV SCH (23:00)
[2024-08-06 23:49] VITALS: BMI 39.9
[2024-08-07] MEDS ORDERED: NA CHLORIDE 0.9% 1,000 ML ONE (00:17)
[2024-08-07 00:50] LABS: Specific Gravity 1.014 (1.005-1.030); Sqamous Epithelial <5 /HPF (None Seen); Urine Bacteria None Seen /HPF (<20); Urine Bilirubin NEGATIVE (Negative); Urine Blood Trace (Negative); Urine Clarity Turbid (Clear); Urine Color Colorless (Yellow); Urine Culture Reflex Order NOT NEEDED; Urine Glucose NEGATIVE (Negative); Urine Ketones NEGATIVE (Negative); Urine Microscopic Reflex YN ORDER UMIC; Urine Nitrite NEGATIVE (Negative); Urine Protein NEGATIVE (Negative); Urine RBC <5 /HPF (None Seen); Urine Urobilinogen Normal (Normal); Urine WBC <5 /HPF (<5); Urine Yeast (Budding) Trace /HPF (None Seen); Urine pH 6.5 (5.0-7.0)
[2024-08-07 01:09] VITALS: BP 134/76; TEMP 97.4
[2024-08-07] MEDS ORDERED: droPERidol 5 MG/2 ML VIAL ONE (01:14)
[2024-08-07] MEDS ORDERED: HALOPERIDOL LACT 5 MG/ML INJ ONE (01:16)
[2024-08-07 03:28] VITALS: O2SAT 99
--- NOTE | 2024-08-09 12:07 | EKG ---
Test Date: 2024-08-06 Test Time: 22:24:37 Ecologist: ANNIE MEASUREMENT RESULTS: Intervals: Rate: 138 CO: 134 QRSD: 88 QT: 346 QTc: 524 Sweeny: P: 74 CO: 134 QRS: 19 T: 69 INTERPRETIVE STATEMENTS: Sinus tachycardia with frequent premature ventricular complexes Otherwise normal ECG Compared to ECG 01/30/2022 06:51:38 Ventricular premature complex(es) now present Electronically Signed On 08-09-24 12:02:03 CDT by Marcos Ramirez
== END 2024-08-07 01:30 | disposition left against medical advice (07) ==
LOC: ER 20:05 → ERHOLD 22:44
PROVIDERS: ADMIT Family Medicine; ATTEND Internal Medicine
DX: K62.5 Hemorrhage of anus and rectum (principal); N17.9 Acute kidney failure, unspecified; I10 Essential (primary) hypertension; F41.9 Anxiety disorder, unspecified; F32.A Depression, unspecified; E66.9 Obesity, unspecified; R10.9 Unspecified abdominal pain; R19.7 Diarrhea, unspecified; R10.11 Right upper quadrant pain; K59.00 Constipation, unspecified; F17.290 Nicotine dependence, other tobacco product, uncomplicated; E87.6 Hypokalemia; Z88.6 Allergy status to analgesic agent; Z98.84 Bariatric surgery status; Z68.39 Body mass index [BMI] 39.0-39.9, adult
CPT/HCPCS: 93005; 85025; 81001; 80048; 36415; 83735; 82565; 80076; 84484; 83690; 83880; 74177; 71045; 99285; Q9967; J1200; J2919; J0744; J7030 ×2; G0378 ×2; J1630; J1790